=== PATIENT | female | born 1970 | race African-American/Black ===

== ENCOUNTER 2018-04-26 02:12 | Inpatient (IN) | payer OTHER ==
--- OUTSIDE RECORDS SUMMARY | 2018-04-26 02:15 | XMS REPORT | Clinical Summary ---
:1970 Author Organization [facility] Address [address] [place] [address] Care Team Providers Name Role Phone Monico Espinoza DO Primary Care Provider Allergies No Known Allergies Current Medications Prescription Sig. Disp. Refills Start Date End Date Status doxazosin (CARDURA) 4 MG TK 1 T PO QD 0 12/31/2016 Active tablet mycophenolate (CELLCEPT) 500 TK 3 TS PO BID 0 01/03/2017 Active mg tablet zolpidem (AMBIEN) 5 MG tablet TK 1 T PO QHS. 0 02/10/2017 Active hydroxychloroquine Take 500 mg by Active (PLAQUENIL) 200 mg tablet mouth 2 (two) times a day. metoprolol tartrate Take 100 mg by Active (LOPRESSOR) 100 mg tablet mouth 2 (two) times a day. clonIDINE HCl (CATAPRES) 0.3 Take 0.3 mg by Active MG tablet mouth 3 (three) times a day. hydrALAZINE (APRESOLINE) 50 Take 50 mg by Active MG tablet mouth 3 (three) times a day. amLODIPine (NORVASC) 10 mg Take 10 mg by Active tablet mouth daily. furosemide (LASIX) 40 mg Take 40 mg by Active tablet mouth 2 (two) times a day. GABAPENTIN ORAL Take 500 mg by Active mouth as needed. HYDROCODONE/ACETAMINOPHEN Take by mouth Active (NORCO ORAL) as needed. Active Problems Problem Noted Date Colostomy in place 02/23/2017 Encounters Date Type Specialty Care Team Description 01/31/2018 Orders Only General Surgery Nataly Bansal MA 11/15/2017 Hospital Encounter Radiology 06/23/2017 Telephone General Surgery Precious Sarabia MA 06/16/2017 Orders Only General Surgery Precious Sarabia, Colostomy status MA (Primary Dx) 06/14/2017 Procedure Pass Urology 06/13/2017 Documentation General Surgery Precious Sarabia, MALVIN 05/30/2017 Hospital Encounter Radiology [facility] Pre-op testing Esau Glasgow MD 05/30/2017 Pre-Admit Testing Pre-Admission [facility] Pre-op testing Appointment Testing Esau Glasgow MD (Primary Dx) after 04/25/2017 Social History Tobacco Use Types Packs/Day Years Used Date Never Smoker Alcohol Use Drinks/Week oz/Week Comments No Sex Assigned at Date Recorded Not on file Last Filed Vital Signs Vital Sign Reading Time Taken Blood Pressure 160/87 05/30/2017 11:24 AM CDT Pulse 68 05/30/2017 11:24 AM CDT Temperature 36 C (96.8 F) 05/30/2017 11:24 AM CDT Respiratory Rate 20 05/30/2017 11:24 AM CDT Oxygen Saturation 97% 05/30/2017 11:24 AM CDT Inhaled Oxygen Concentration - - Weight 75.3 kg (166 lb) 05/30/2017 11:24 AM CDT Height 157.5 cm (5' 2") 05/30/2017 11:24 AM CDT Body Mass Index 30.36 05/30/2017 11:24 AM CDT Plan of Treatment Health Maintenance Due Date Last Done Comments CERVICAL CANCER SCREENING 1991 INFLUENZA VACCINE 03/29/2018 Procedures Procedure Name Priority Date/Time Associated Comments Diagnosis XR CHEST 2 VW Routine 05/30/2017 12:23 Pre-op testing Results for this PM CDT procedure are in the results section. ECG PRE/POST OP Routine 05/30/2017 11:25 Pre-op testing Results for this AM CDT procedure are in the results section. FYA ANTIGEN PATIENT Routine 05/30/2017 11:12 Results for this TYPING AM CDT procedure are in the results section. DIRECT VENESSA' (RADHA) Routine 05/30/2017 11:12 Results for this AM CDT procedure are in the results section. ANTIBODY IDENTIFICATION Routine 05/30/2017 11:12 Results for this AM CDT procedure are in the results section. ESTIMATED GFR Routine 05/30/2017 11:12 Results for this AM CDT procedure are in the results section. HEMOGLOBIN A1C Routine 05/30/2017 11:12 Pre-op testing Results for this AM CDT procedure are in the results section. COMPREHENSIVE METABOLIC Routine 05/30/2017 11:12 Pre-op testing Results for this PANEL AM CDT procedure are in the results section. HC COMPLETE BLD COUNT Routine 05/30/2017 11:12 Pre-op testing Results for this W/AUTO DIFF AM CDT procedure are in the results section. TYPE AND SCREEN Routine 05/30/2017 11:12 Pre-op testing Results for this AM CDT procedure are in the results section. PROTHROMBIN TIME WITH Routine 05/30/2017 11:12 Pre-op testing Results for this INR AM CDT procedure are in the results section. PARTIAL THROMBOPLASTIN Routine 05/30/2017 11:12 Pre-op testing Results for this TIME (PTT) AM CDT procedure are in the results section. after 04/25/2017 Results XR Chest 2 Vw (05/30/2017 12:23 PM) Narrative Performed At XR CHEST 2 [facility] CLINICAL INDICATION:Z01.818 Encounter for other preprocedural examination, pre op testing COMPARISON:09/29/2014 IMPRESSION: The heart is mild to moderately enlarged similar to prior exam. Pulmonary vascularity is top normal. There is no consolidation or effusion. Bones are unremarkable for age. There is partial visualization of potential catheters or sutures overlying the anterior abdomen on the left. Thank you for allowing us to participate in the care of your patient. [facility]-[id number] Procedure Note Interface, Radiology Results Incoming - 05/30/2017 12:32 PM CDT XR CHEST 2 VW CLINICAL INDICATION: Z01.818 Encounter for other preprocedural examination, pre op testing COMPARISON: 09/29/2014 IMPRESSION: The heart is mild to moderately enlarged similar to prior exam. Pulmonary vascularity is top normal. There is no consolidation or effusion. Bones are unremarkable for age. There is partial visualization of potential catheters or sutures overlying the anterior abdomen on the left. Thank you for allowing us to participate in the care of your patient. [facility]-[id number] Performing Organization Address City/State/Zipcode Phone Number [facility] [address] [place] [address] ECG Pre/Post Op (05/30/2017 11:25 AM) Ventricular rate 67 [facility] Atrial rate 67 [facility] MO interval 204 [facility] QRSD interval 82 [facility] M[facility] QT interval 484 [facility] QTC interval 511 [facility] P axis 1 48 [facility] QRS axis 1 12 [facility] T wave axis 118 [facility] EKG impression Normal sinus rhythm-Voltage criteria for left ventricular hypertrophy-T wave abnormality, consider lateral ischemia--Abnormal ECG-In automated comparison with ECG of 29-SEP-2014 20:53,-Vent. rate has de [facility] MUSE creased BY42 BPM-T wave inversion more evident in Lateral leads-Electronically Signed By Johnnie Gibbs ([id number]) on 2016 5:59:18 PM Performing Organization Address City/[facility] Phone Number [facility] MUSE [address] [place] [address] FyA antigen patient typing (05/30/2017 11:12 AM) FyA Antigen Patient Typing NEG [facility] DEPARTMENT OF PATHOLOGY AND GENOMIC MEDICINE Performing Organization Address City/[facility] Phone Number [facility] DEPARTMENT OF PATHOLOGY AND [address] [place], [place] [id number] [facility] Direct Venessa' (RADHA) (05/30/2017 11:12 AM) IgG Venessa NEG [facility] DEPARTMENT OF PATHOLOGY AND GENOMIC MEDICINE Anti-complement NEG [facility] DEPARTMENT OF PATHOLOGY AND GENOMIC MEDICINE Performing Organization Address City/[facility] Phone Number [facility] DEPARTMENT OF PATHOLOGY AND [address] [place] [address] Estimated GFR (05/30/2017 11:12 AM) GFR Non Af Amer 20 (A) mL/min/1.73 m2 [facility] DEPARTMENT OF PATHOLOGY AND GENOMIC MEDICINE GFR Af Amer 24 (A) mL/min/1.73 m2 [facility] DEPARTMENT OF Comment: PATHOLOGY AND GENOMIC Chronic kidney disease: <60 mL/min/1.73m2 MEDICINE Kidney failure: <15 mL/min/1.73m2 The estimated GFR is calculated from the IDMS-traceable Modification of Diet in Renal Disease Equation. The accuracy of the calculation is poor when the creatinine is normal. Calculated values >90 mL/min/1.73m2 are not reported. This equation has not been validated in children (<18 years), women, the elderly (>70 years), or ethnic groups other than Caucasians and Americans. Specimen Plasma specimen Performing Organization Address City/[facility] Phone Number [facility] DEPARTMENT OF PATHOLOGY AND [address] [place] [address] Antibody identification (05/30/2017 11:12 AM) Antibody ID POS, Anti-FyA [facility] DEPARTMENT OF PATHOLOGY AND Comment: GENOMIC [facility] This antibody can cause red cell damage and is considered clinically significant.Red cells for transfusion will be negative for the Fya antigen [place] [id number]. Performing Organization Address [facility] Phone Number [facility] DEPARTMENT OF PATHOLOGY AND [address] [place] [address] Partial thromboplastin time, activated (05/30/2017 11:12 AM) PTT 36.8 (H) 23.0 - 36.0 sec [facility] DEPARTMENT OF PATHOLOGY Comment: AND [facility] PTT therapeutic range for unfractionated heparin is 61.0-112.0 seconds which corresponds to Anti-Xa 0.3-0.7 U/ml. Specimen Blood Performing Organization Address [facility] Cent[facility] Phone Number [facility] DEPARTMENT OF PATHOLOGY AND [address] [place] [address] Prothrombin time with INR (05/30/2017 11:12 AM) Prothrombin time 14.0 12.0 - 15.0 sec [facility] DEPARTMENT OF PATHOLOGY AND GENOMIC MEDICINE INR 1.1 [facility] DEPARTMENT OF Comment: PATHOLOGY AND GENOMIC The International Normalized Ratio (INR) is a therapeutic MEDICINE monitoring tool for patients who are stable on oral anticoagulant therapy. An INR of 2.0-3.0 is suggested for deep vein thrombosis/pulmonary embolism. Specimen Blood Performing Organization Address [facility] Phone Number [facility] DEPARTMENT OF PATHOLOGY AND [address] [place] [address] CBC with platelet and differential (05/30/2017 11:12 AM) WBC 3.42 (L) 4.50 - 11.00 k/uL [facility] DEPARTMENT OF PATHOLOGY AND GENOMIC MEDICINE RBC 4.04 (L) 4.20 - 5.50 m/uL [facility] DEPARTMENT OF PATHOLOGY AND GENOMIC MEDICINE HGB 10.5 (L) 12.0 - 16.0 g/dL [facility] DEPARTMENT OF PATHOLOGY AND GENOMIC MEDICINE HCT 34.9 (L) 37.0 - 47.0 % [facility] DEPARTMENT OF PATHOLOGY AND GENOMIC MEDICINE MCV 86.4 82.0 - 100.0 fL [facility] DEPARTMENT OF PATHOLOGY AND GENOMIC MEDICINE MCH 26.0 (L) 27.0 - 34.0 pg [facility] DEPARTMENT OF PATHOLOGY AND GENOMIC MEDICINE MCHC 30.1 (L) 31.0 - 37.0 g/dL [facility] DEPARTMENT OF PATHOLOGY AND GENOMIC MEDICINE RDW - SD 45.0 37.0 - 55.0 fL [facility] DEPARTMENT OF PATHOLOGY AND GENOMIC MEDICINE MPV 9.2 8.8 - 13.2 fL [facility] DEPARTMENT OF PATHOLOGY AND GENOMIC MEDICINE Platelet count 310 150 - 400 k/uL [facility] DEPARTMENT OF PATHOLOGY AND GENOMIC MEDICINE Nucleated RBC 0.00 /100 WBC [facility] DEPARTMENT OF PATHOLOGY AND GENOMIC MEDICINE Neutrophils 51.1 39.0 - 69.0 % [facility] DEPARTMENT OF PATHOLOGY AND GENOMIC MEDICINE Lymphocytes 26.6 25.0 - 45.0 % [facility] DEPARTMENT OF PATHOLOGY AND GENOMIC MEDICINE Monocytes 16.4 (H) 0.0 - 10.0 % [facility] DEPARTMENT OF PATHOLOGY AND GENOMIC MEDICINE Eosinophils 4.7 0.0 - 5.0 % [facility] DEPARTMENT OF PATHOLOGY AND GENOMIC MEDICINE Basophils 0.9 0.0 - 1.0 % [facility] DEPARTMENT OF PATHOLOGY AND GENOMIC MEDICINE Immature granulocytes 0.3Comment: 0.0 - 1.0 % [facility] DEPARTMENT OF "Immature PATHOLOGY AND GENOMIC granulocytes" MEDICINE (promyelocytes, myelocytes, metamyelocytes) Specimen Blood Performing Organization Address City/[facility]/Zipcode Phone Number [facility] DEPARTMENT OF PATHOLOGY AND [address] [place] [phone] GENOMIC MEDICINE Type and screen (05/30/2017 11:12 AM) ABO grouping O [facility] DEPARTMENT OF PATHOLOGY AND GENOMIC MEDICINE Rh type POS [facility] DEPARTMENT OF PATHOLOGY AND GENOMIC MEDICINE Antibody screen (gel) POS [facility] DEPARTMENT OF PATHOLOGY AND GENOMIC MEDICINE Specimen Blood Performing Organization Address City/[facility] Phone Number [facility] DEPARTMENT OF PATHOLOGY AND [address] [place] [id number] [place] [address] Hemoglobin A1c (05/30/2017 11:12 AM) Hemoglobin A1C 5.0 4.0 - 5.6 % [facility] DEPARTMENT OF PATHOLOGY Comment: AND GENOMIC MEDICINE HbA1c cutoffs for diagnosing diabetes: 4.0% - 5.6%=normal 5.7% - 6.4%=increased risk for diabetes (prediabetes) >=6.5%=diabetes Goals for glycemic control (ADA 2016) < 7.0%Target for non adults with diabetes. More or less stringent targets may be appropriate for individual patients. <7.5% Target for Children and adolescents with type 1 diabetes. Specimen Blood Performing Organization Address City/State/Zipcode Phone Number [facility] DEPARTMENT OF PATHOLOGY AND [address] [place] [address] GENOMIC MEDICINE Comprehensive metabolic panel (05/30/2017 11:12 AM) Sodium 141 135 - 148 mEq/L [facility] DEPARTMENT OF PATHOLOGY AND GENOMIC MEDICINE Potassium 4.7 3.5 - 5.0 mEq/L [facility] DEPARTMENT OF PATHOLOGY AND GENOMIC MEDICINE Chloride 96 (L) 98 - 112 mEq/L [facility] DEPARTMENT OF PATHOLOGY AND GENOMIC MEDICINE CO2 27 24 - 31 mEq/L [facility] DEPARTMENT OF PATHOLOGY AND GENOMIC MEDICINE Anion gap 18 (H) 7 - 15 mEq/L [facility] DEPARTMENT OF Comment: PATHOLOGY AND GENOMIC Starting from November , anion gap calculation MEDICINE no longer incorporates potassium. Please note the change. BUN 58 (H) 6 - 20 mg/dL [facility] DEPARTMENT OF PATHOLOGY AND GENOMIC MEDICINE Creatinine 2.6 (H) 0.5 - 0.9 mg/dL [facility] DEPARTMENT OF PATHOLOGY AND GENOMIC MEDICINE Glucose 107 (H) 65 - 99 mg/dL [facility] DEPARTMENT OF PATHOLOGY AND GENOMIC MEDICINE Calcium 9.3 8.3 - 10.2 mg/dL [facility] DEPARTMENT OF PATHOLOGY AND GENOMIC MEDICINE Protein 9.1 (H) 6.3 - 8.3 g/dL [facility] DEPARTMENT OF Comment: PATHOLOGY AND GENOMIC 4.6-7.0 g/dL MEDICINE 1 week 4.4-7.6 g/dL 7 months-1year5.1-7.3 g/dL 1-2 years5.6-7.5 g/dL >3 years6.0-8.0 g/dL 18-150 6.3-8.3 g/dL Albumin 4.0 3.5 - 5.0 g/dL [facility] DEPARTMENT OF PATHOLOGY AND GENOMIC MEDICINE A/G ratio 0.8 0.7 - 3.8 [facility] DEPARTMENT OF PATHOLOGY AND GENOMIC MEDICINE Alkaline phosphatase 145 (H) 35 - 104 U/L [facility] DEPARTMENT OF PATHOLOGY AND GENOMIC MEDICINE AST 23 10 - 35 U/L [facility] DEPARTMENT OF PATHOLOGY AND GENOMIC MEDICINE ALT 12 5 - 50 U/L [facility] DEPARTMENT OF PATHOLOGY AND GENOMIC MEDICINE Total bilirubin 0.3 0.0 - 1.2 mg/dL [facility] DEPARTMENT OF PATHOLOGY AND GENOMIC MEDICINE Specimen Plasma specimen Performing Organization Address City/State/Zipcode Phone Number [facility] DEPARTMENT OF PATHOLOGY AND [address] [place] [address] GENOMIC MEDICINE after 04/25/2017 Insurance Payer Benefit Plan / Group Subscriber ID Type Phone Address [facility] MEDICARE [facility] DUAL COMPLETE MCR xxxxxxxxx [facility] MEDICAID xxxxxxxxx Medicaid y [phone] [place] [address] [place] [id number]
[2018-04-26] MEDS ORDERED: HYDRALAZINE HCL 20 MG/ML VIAL ONE (03:05)
[2018-04-26] MEDS ORDERED: KETOROLAC 30 MG/ML INJ ONE (03:05)
[2018-04-26] MEDS ORDERED: ONDANSETRON 4 MG/2 ML VIAL ONE ×2 (03:06→05:14)
[2018-04-26 03:28] LABS: Absolute Lymphocytes (CBC) 1.1 K/uL (0.7-4.9); Absolute Monocytes 1.5 K/uL (0.1-1.3); Absolute Neutrophil 19.8 K/uL (1.8-8.0); Basophils % 0.1 % (0-1.3); Hematocrit 28.9 % (36.0-45.0); Lymphocytes % 4.8 % (15.3-44.8); MCV 79.2 fL (80-100); MPV 7.2 fL (7.6-11.3); Monocytes % 6.8 % (3.3-12.3); RBC Red Blood Cell Count 3.64 M/uL (3.86-4.86)
[2018-04-26 03:39] LABS: Albumin 3.3 g/dL (3.4-5.0); Bilirubin Total 0.6 mg/dL (0.2-1.0); Protein, Total 8.5 g/dL (6.4-8.2)
[2018-04-26 04:11] LABS: Blood Morphology Comment NOT SEEN (NOT SEEN); Platelet Estimate ADEQ
[2018-04-26] MEDS ORDERED: POTASSIUM CL SA 10 MEQ TAB PO ONE (04:30)
[2018-04-26 05:57] LABS: Urine Blood 1+ (NEG); Urine Glucose NEGATIVE (NEG); Urine Protein 2+ (NEG); Urine Specific Gravity >1.030 (1.005-1.030); Urine pH 5.5 (5.0-7.0)
--- NOTE | 2018-04-26 06:58 | ER ---
Nurse's Notes [facility] Name: Babs Younger Age: 47 yrs Sex: Female : 1970 Arrival Date: 04/26/2018 Time: 02:13 Bed 13 Private MD: Diagnosis: Fever of other and unknown origin Presentation: 04/26 02:19 Presenting complaint: Patient states: fever and joint pain with illness since Tuesday. ak1 pt unable to see PCP Alexis until Tuesday. pt c/o vomiting started tonight. pt stated she took tylenol, norco and clonidine at 0000. Transition of care: patient was not received from another setting of care. Onset of symptoms was April 26, 2018. Risk Assessment: Do you want to hurt yourself or someone else? Patient reports no desire to harm self or others. Initial Sepsis Screen: Does the patient meet any 2 criteria? No. Patient's initial sepsis screen is negative. Does the patient have a suspected source of infection? No. Patient's initial sepsis screen is negative. Care prior to arrival: None. 02:19 Method Of Arrival: EMS: [facility] ak1 02:19 Acuity: ELVA 3 ak1 Triage Assessment: 02:23 General: Appears in no apparent distress. Behavior is calm, cooperative. Pain: ak1 Complains of pain in joint pain. EENT: No signs and/or symptoms were reported regarding the EENT system. Neuro: No deficits noted. Cardiovascular: No deficits noted. Respiratory: No deficits noted. GI: Reports nausea, vomiting, started tonight. : No signs and/or symptoms were reported regarding the genitourinary system. Derm: Reports fever and illness since Tuesday. Musculoskeletal: Reports pain in joints. 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 LMP N/A - Hysterectomy ak1 Historical: - Allergies: 02:23 Morphine; ak1 - Home Meds: 02:23 CellCept 500 mg Oral tab 2 tabs 2 times per day [Active]; clonidine HCl 0.3 mg Oral tab ak1 1 tab three times a day [Active]; doxazosin 4 mg Oral tab 1 tab once daily [Active]; furosemide 80 mg Oral tab 1 tab 2 times per day [Active]; Plaquenil 200 mg Oral tab 1 tab once daily [Active]; Showell 10-325 mg Oral tab 1 tab QID PRN [Active]; metoprolol tartrate 100 mg Oral tab 1 tab 2 times per day [Active]; hydralazine 50 mg Oral tab 1 tab three times a day [Active]; Humulin 70/30 100 unit/mL (70-30) Sub-Q susp 60 units in am and 40 units at night [Active]; amlodipine 10 mg tab 1 tab once daily [Active]; gabapentin 400 mg Oral cap 1 cap as needed [Active]; Ambien 5 mg Oral tab 1 tab qhs prn [Active]; - PMHx: 02:23 Diabetes - IDDM; Hypertension; Lupus; Renal Disease; ak1 - PSHx: 02:23 Colostomy; Hysterectomy; ak1 - Immunization history:: Adult Immunizations unknown. - Social history:: Smoking status: unknown. - Ebola Screening: : No symptoms or risks identified at this time. Screenin:25 Abuse screen: Denies threats or abuse. Denies injuries from another. Nutritional ak1 screening: No deficits noted. Tuberculosis screening: No symptoms or risk factors identified. Fall Risk None identified. Assessment: 02:26 Reassessment: Patient appears in no apparent distress at this time. No changes from ak1 previously documented assessment. see triage assessment. 03:28 Reassessment: Patient appears in no apparent distress at this time. No changes from ak1 previously documented assessment. Patient and/or family updated on plan of care and expected duration. Pain level reassessed. Patient is alert, oriented x 3, equal unlabored respirations, skin warm/dry/pink. pt resting with eyes closed. resp even and unlabored. will continue to monitor. 04:32 Reassessment: pt ambulated to restroom with steady gait. . ak1 06:49 Reassessment: Patient appears in no apparent distress at this time. No changes from ak1 previously documented assessment. Patient and/or family updated on plan of care and expected duration. Pain level reassessed. Patient is alert, oriented x 3, equal unlabored respirations, skin warm/dry/pink. Dr. Bright at bedside. 07:00 Reassessment: report given to Chrystal Gaona RN and Manolo SMITH. ak1 07:10 Reassessment: Called and spoke with Dr Bright regarding getting transfer orders. He said sv that he would put them in. 07:15 General: Appears in no apparent distress. comfortable, Behavior is calm, cooperative, sv appropriate for age. Pain: Complains of pain in scalp Pain currently is 4 out of 10 on a pain scale. Is continuous. Neuro: Level of Consciousness is awake, alert, obeys commands, Oriented to person, place, time, situation, Moves all extremities. Full function Gait is steady, Speech is normal. Cardiovascular: Heart tones S1 S2 present Patient's skin is warm and dry. Pulses are palpable in right radial artery and left radial artery. Respiratory: Respiratory effort is even, unlabored, Respiratory pattern is regular, symmetrical, Breath sounds are clear bilaterally. GI: Abdomen is flat, Colostomy site is clean and dry. Ostomy appliance is intact. Bowel sounds present X 4 quads. : No signs and/or symptoms were reported regarding the genitourinary system. EENT: No signs and/or symptoms were reported regarding the EENT system. Derm: Skin is normal. Musculoskeletal: No signs and/or symptoms reported regarding the musculoskeletal system. 07:57 Reassessment: Unable to start charting in [facility] d/t no transfer orders. sv Vital Signs: 02:19 BP 172 / 91; Pulse 95; Resp 16; Temp 99.6(O); Pulse Ox 97% on R/A; Weight 81.65 kg (R); ak1 Height 5 ft. 2 in. (157.48 cm) (R); Pain 8/10; 02:46 BP 143 / 96; Pulse 92; Resp 16; ak1 03:26 BP 132 / 77; Pulse 83; Resp 16; Pulse Ox 96% on R/A; ak1 05:06 BP 137 / 77; Pulse 81; Resp 16; Temp 98.3(O); Pulse Ox 96% on R/A; Pain 4/10; ak1 06:50 BP 140 / 84; Pulse 82; Resp 16; Temp 97.8(O); Pulse Ox 99% on R/A; Pain 4/10; ak1 09:16 BP 164 / 85; Pulse 98; Resp 17; Pulse Ox 100% on R/A; dh3 02:19 Body Mass Index 32.92 (81.65 kg, 157.48 cm) ak1 ED Course: 02:13 Patient arrived in ED. ak1 02:21 Triage completed. ak1 02:24 Emery Saenz MD is Attending Physician. tw4 02:25 Patient has correct armband on for positive identification. Bed in low position. Call ak1 light in reach. Side rails up X 1. Pulse ox on. NIBP on. 02:26 Arm band placed on Patient placed in an exam room, on a stretcher, on pulse oximetry, ak1 Patient notified of wait time. 02:45 Adrianna Seymour, RN is Primary Nurse. ak1 02:45 No provider procedures requiring assistance completed. Missed attempt(s): 24 gauge in ak1 right hand. 02:45 Initial lab(s) drawn, by me, sent to lab. ak1 02:50 Inserted saline lock: 20 gauge in right antecubital area, using aseptic technique. bb Blood collected. 05:56 X-ray completed. Portable x-ray completed in exam room. Patient tolerated procedure kw well. 05:57 Chest Single View XRAY In Process Unspecified. EDMS 06:57 Maurice Bright MD is Hospitalizing Provider. tw4 08:00 Patient admitted, IV remains in place. intact. sv Administered Medications: 03:07 Drug: TORadol 30 mg Route: IVP; Site: right antecubital; ak1 04:21 Follow up: Response: No adverse reaction ak1 03:07 Drug: Zofran 4 mg Route: IVP; Site: right antecubital; ak1 04:21 Follow up: Response: No adverse reaction ak1 03:07 Drug: hydrALAZINE 10 mg Route: IV; Rate: bolus; Site: right antecubital; ak1 04:32 Drug: Potassium Chloride 40 mEq Route: PO; ak1 04:32 Follow up: Response: No adverse reaction ak1 05:12 Drug: Zofran 4 mg Route: IVP; Site: right antecubital; ak1 06:51 Follow up: Response: No adverse reaction; Nausea is decreased ak1 Point of Care Testing: Blood Glucose: 08:00 Blood Glucose: 94 mg/dL; sv Ranges: Outcome: 06:57 Decision to Hospitalize by Provider. tw4 13:33 Patient left the ED. ph Signatures: Dispatcher [employer]DA[employer] Chrystal Teague RN RN sv Darcy Gallego RN RN bb Pita Nicholson Adrianna Seymour RN RN ak1 Scarlett Ferrari RN RN ph Kortney Ray dh3 Emery Saenz MD MD tw4
--- NOTE | 2018-04-26 06:58 | EDPHYS ---
Physician Documentation [facility] Name: Babs Younger Age: 47 yrs Sex: Female : 1970 Arrival Date: 04/26/2018 Time: 02:13 Bed 13 Private MD: ED Physician Emery Saenz HPI: 04/26 02:25 This 47 yrs old Black Female presents to ER via EMS with complaints of joint pain. tw4 02:25 pt states that she has had nausea, joint pain for 2 days. Onset: The symptoms/episode tw4 began/occurred 2 day(s) ago. Severity of symptoms: At their worst the symptoms were moderate in the emergency department the symptoms are unchanged. The patient has not experienced similar symptoms in the past. 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 WRAPPER: 02:19 LMP N/A - Hysterectomy ak1 Historical: - Allergies: : Morphine; ak1 - Home Meds: 02:23 CellCept 500 mg Oral tab 2 tabs 2 times per day [Active]; clonidine HCl 0.3 mg Oral tab ak1 1 tab three times a day [Active]; doxazosin 4 mg Oral tab 1 tab once daily [Active]; furosemide 80 mg Oral tab 1 tab 2 times per day [Active]; Plaquenil 200 mg Oral tab 1 tab once daily [Active]; Manor 10-325 mg Oral tab 1 tab QID PRN [Active]; metoprolol tartrate 100 mg Oral tab 1 tab 2 times per day [Active]; hydralazine 50 mg Oral tab 1 tab three times a day [Active]; Humulin 70/30 100 unit/mL (70-30) Sub-Q susp 60 units in am and 40 units at night [Active]; amlodipine 10 mg tab 1 tab once daily [Active]; gabapentin 400 mg Oral cap 1 cap as needed [Active]; Ambien 5 mg Oral tab 1 tab qhs prn [Active]; - PMHx: 02:23 Diabetes - IDDM; Hypertension; Lupus; Renal Disease; ak1 - PSHx: 02:23 Colostomy; Hysterectomy; ak1 - Immunization history:: Adult Immunizations unknown. - Social history:: Smoking status: unknown. - Ebola Screening: : No symptoms or risks identified at this time. ROS: 02:25 Constitutional: Negative for fever, chills, and weight loss, Cardiovascular: Negative tw4 for chest pain, palpitations, and edema, Respiratory: Negative for shortness of breath, cough, wheezing, and pleuritic chest pain, Abdomen/GI: Negative for abdominal pain, nausea, vomiting, diarrhea, and constipation, Back: Negative for injury and pain, MS/Extremity: Negative for injury and deformity, Skin: Negative for injury, rash, and discoloration, Neuro: Negative for headache, weakness, numbness, tingling, and seizure. Exam: 02:25 Constitutional: This is a well developed, well nourished patient who is awake, alert, tw4 and in no acute distress. Head/Face: Normocephalic, atraumatic. Chest/axilla: Normal chest wall appearance and motion. Nontender with no deformity. No lesions are appreciated. Cardiovascular: Regular rate and rhythm with a normal S1 and S2. No gallops, murmurs, or rubs. Normal PMI, no JVD. No pulse deficits. Respiratory: Lungs have equal breath sounds bilaterally, clear to auscultation and percussion. No rales, rhonchi or wheezes noted. No increased work of breathing, no retractions or nasal flaring. Back: No spinal tenderness. No costovertebral tenderness. Full range of motion. MS/ Extremity: Pulses equal, no cyanosis. Neurovascular intact. Full, normal range of motion. Neuro: Awake and alert, GCS 15, oriented to person, place, time, and situation. Cranial nerves II-XII grossly intact. Motor strength 5/5 in all extremities. Sensory grossly intact. Cerebellar exam normal. Normal gait. 02:25 Abdomen/GI: Inspection: abdomen appears normal, scar(s), are noted in the right lower quadrant, colostomy present stool and air in bag, Bowel sounds: normal. Vital Signs: 02:19 BP 172 / 91; Pulse 95; Resp 16; Temp 99.6(O); Pulse Ox 97% on R/A; Weight 81.65 kg (R); ak1 Height 5 ft. 2 in. (157.48 cm) (R); Pain 8/10; 02:46 BP 143 / 96; Pulse 92; Resp 16; ak1 03:26 BP 132 / 77; Pulse 83; Resp 16; Pulse Ox 96% on R/A; ak1 05:06 BP 137 / 77; Pulse 81; Resp 16; Temp 98.3(O); Pulse Ox 96% on R/A; Pain 4/10; ak1 06:50 BP 140 / 84; Pulse 82; Resp 16; Temp 97.8(O); Pulse Ox 99% on R/A; Pain 4/10; ak1 09:16 BP 164 / 85; Pulse 98; Resp 17; Pulse Ox 100% on R/A; dh3 02:19 Body Mass Index 32.92 (81.65 kg, 157.48 cm) ak1 MDM: 02:24 Patient medically screened. tw4 04/27 01:11 Differential Diagnosis altered mental status, sepsis. Data reviewed: vital signs, tw4 nurses notes. Test interpretation: by ED physician or midlevel provider: plain radiologic studies. Counseling: I had a detailed discussion with the patient and/or guardian regarding: the historical points, exam findings, and any diagnostic results supporting the discharge/admit diagnosis. Physician consultation: Maurice Bright MD regarding admission, and will see patient in ED. 04/26 02:28 Order name: CBC with Diff; Complete Time: 04:12 [facility] 04/26 04:11 Interpretation: Normal except: RBC 3.64; HGB 9.5; HCT 28.9; MCV 79.2; MCH 26.0; LYM% tw4 4.8; RICHA% 88.3; MPV 7.2; NEUT A 19.8; MNA 1.5. 04/26 02:28 Order name: CMP; Complete Time: 04:10 4 04/26 04:12 Interpretation: K 3.0; BUN 48; CRE 2.80; GFR 22; ALK 125; TP 8.5; ALB 3.3. [facility] 04/26 03:35 Order name: Manual Differential; Complete Time: 05:07 [facility] 04/26 04:11 Order name: Urinalysis [facility] 04/26 04:57 Order name: Urine Dipstick--Ancillary (enter results) ms 04/26 05:09 Order name: Lactate [facility] 04/26 05:09 Order name: Blood Culture Adult (2) [facility] 04/26 08:02 Order name: Glucose, Ancillary Testing [facility] 04/26 08:47 Order name: Comprehensive Metabolic Panel [facility] 04/26 08:47 Order name: Comprehensive Metabolic Panel [facility] 04/26 08:47 Order name: Lactate EDMS 04/26 08:47 Order name: Lactate EDMS 04/26 08:47 Order name: Magnesium EDMS 04/26 08:48 Order name: Urinalysis EDMS 04/26 02:28 Order name: Saline Lock; Complete Time: 02:59 tw4 04/26 04:11 Order name: Urine Dipstick-Ancillary (obtain specimen); Complete Time: 04:57 tw4 04/26 05:34 Order name: Chest Single View XRAY tw4 04/26 08:48 Order name: CONS Pharmacy Consult EDMS 04/26 08:48 Order name: CONS Physician Consult EDMS 04/26 08:48 Order name: Heart Healthy EDMS 04/26 08:48 Order name: CBC with Automated Diff EDMS 04/26 08:48 Order name: CBC with Automated Diff EDMS 04/26 08:48 Order name: Magnesium EDMS 04/26 08:48 Order name: Phosphorus EDMS 04/26 08:48 Order name: Phosphorus EDMS Administered Medications: 04/26 03:07 Drug: TORadol 30 mg Route: IVP; Site: right antecubital; ak1 04:21 Follow up: Response: No adverse reaction ak1 03:07 Drug: Zofran 4 mg Route: IVP; Site: right antecubital; ak1 04:21 Follow up: Response: No adverse reaction ak1 03:07 Drug: hydrALAZINE 10 mg Route: IV; Rate: bolus; Site: right antecubital; ak1 04:32 Drug: Potassium Chloride 40 mEq Route: PO; ak1 04:32 Follow up: Response: No adverse reaction ak1 05:12 Drug: Zofran 4 mg Route: IVP; Site: right antecubital; ak1 06:51 Follow up: Response: No adverse reaction; Nausea is decreased ak1 Point of Care Testing: Blood Glucose: 08:00 Blood Glucose: 94 mg/dL; sv Ranges: Critical Glucose Levels:Adult <50 mg/dl or >400 mg/dl <40 mg/dl or >180 mg/dl Disposition: 04/26/18 06:57 Hospitalization ordered by Maurice Bright for Observation. Preliminary diagnosis is Fever of other and unknown origin. - Bed requested for Telemetry/MedSurg (observation). - Status is Observation. ph - Condition is Fair. - Problem is new. - Symptoms are unchanged. UTI on Admission? No Signatures: Dispatcher [employer] EDTerri Rayo RN RN Adrianna Jordan, RN RN Scarlett Manley RN RN Emery Medina MD MD tw4 Corrections: (The following items were deleted from the chart) 07:16 06:57 Hospitalization Ordered by Maurice Bright MD for Observation. Preliminary kl diagnosis is Fever of other and unknown origin. Bed requested for Telemetry/MedSurg (observation). Status is Observation. Condition is Fair. Problem is new. Symptoms are unchanged. UTI on Admission? No. tw4 12:40 07:16 04/26/2018 06:57 Hospitalization Ordered by Maurice Bright MD for Observation. kl Preliminary diagnosis is Fever of other and unknown origin. Bed requested for [facility] ER HOLD. Status is Observation. Condition is Fair. Problem is new. Symptoms are unchanged. UTI on Admission? No. kl 13:33 12:40 04/26/2018 06:57 Hospitalization Ordered by Maurice Bright MD for Observation. ph Preliminary diagnosis is Fever of other and unknown origin. Bed requested for Telemetry/MedSurg (observation). Status is Observation. Condition is Fair. Problem is new. Symptoms are unchanged. UTI on Admission? No. kl
--- NOTE | 2018-04-26 07:59 | RAD REPORT ---
EXAM DESCRIPTION: Fredo Single View04/26/2018 5:58 am CLINICAL HISTORY: Fever COMPARISON: October 2017 FINDINGS: Left lower lobe opacity is suspected. The right lung is clear. The heart is borderline en larged IMPRESSION: Probable left lower lobe pneumonia.
[2018-04-26] MEDS ORDERED: ALBUTEROL 2.5 MG/3 ML NEB SOL NEB PRN (08:42)
[2018-04-26] MEDS ORDERED: GABAPENTIN 400 MG CAP PO PRN (08:47)
[2018-04-26] MEDS: MYCOPHENOLATE MOFETIL 1000 MG PO SCH ×2 (09:00→21:00)
[2018-04-26] MEDS: VANCOMYCIN 1.25 GM in NA CHLORIDE 0.9% 250 ML IVPB SCH (09:00)
[2018-04-26] MEDS: HYDRALAZINE HCL 25 MG TABLET PO SCH ×3 (09:00→21:00)
[2018-04-26] MEDS ORDERED: CEFEPIME 1 GM/VIAL IV SCH (09:00)
[2018-04-26] MEDS ORDERED: cloNIDine HCl 0.1 MG TAB ONE (09:20)
[2018-04-26] MEDS ORDERED: METOPROLOL TAR 50 MG TAB ONE (09:20)
[2018-04-26] MEDS ORDERED: HEPARIN 5000 UNIT/ML 1 ML VIAL ONE (09:20)
[2018-04-26] MEDS ORDERED: FUROSEMIDE 40 MG TABLET ONE (09:21)
[2018-04-26] MEDS ORDERED: HYDROCODONE/APAP 10/325 TAB ONE (09:21)
[2018-04-26] MEDS ORDERED: AMLODIPINE 5 MG TAB ONE (09:21)
[2018-04-26] MEDS ORDERED: NA CHLORIDE 0.9% 1,000 ML ONE (09:21)
[2018-04-26] MEDS ORDERED: HYDRALAZINE HCL 10 MG TABLET ONE (09:21)
[2018-04-26] MEDS ORDERED: CEFEPIME 1 GM/100 ML BAG IV ONE (09:22)
[2018-04-26] MEDS: DOXAZOSIN 4 MG TAB PO SCH (09:30)
[2018-04-26] MEDS: HYDROCODONE/APAP 10/325 TAB PO PRN ×3 (09:30→22:03)
[2018-04-26] MEDS: CLONIDINE HCL 0.3 MG TAB PO SCH ×3 (09:30→21:00)
[2018-04-26] MEDS: HYDROXYCHLOROQUINE 200MG TAB PO SCH (09:30)
[2018-04-26] MEDS: FUROSEMIDE 40 MG TABLET PO SCH ×2 (09:30→16:39)
[2018-04-26] MEDS: AMLODIPINE 10 MG TAB PO SCH (09:30)
[2018-04-26] MEDS: HEPARIN 5000 UNIT/ML 1 ML VIAL SQ SCH (09:30)
[2018-04-26] MEDS: METOPROLOL TAR 50 MG TAB PO SCH ×2 (09:30→21:00)
--- NOTE | 2018-04-26 09:48 | P.HP ---
Certification for Inpatient Patient admitted to: Inpatient With expected LOS: >2 Midnights Patient will require the following post-hospital care: None Practitioner: I am a practitioner with admitting privileges, knowledge of patient current condition, hospital course, and medical plan of care. Services: Services provided to patient in accordance with Admission requirements found in Title 42 Section 412.3 of the Code of Federal Regulations Patient History Date of Service: 04/26/18 Reason for admission: Fever, shakes and chills History of Present Illness: Patient is a 47-year-old female who has a history of lupus who has had multiple secondary complications. Patient presents to the hospital with fever shakes and chills. She apparently has been gradually worsening over the last few weeks. She came into the emergency room for evaluation. In the emergency room patient had extensive workup done and was found have a leukocytosis along with a bandemia. Patient is on immunosuppressants including CellCept and Imuran. Patient has not been feeling like herself lately. Her workup revealed a questionable left lower lobe pneumonia. Will admit her to the hospital and treat her with IV antibiotics. Will watch her for any secondary complications. She may need a peripheral blood smear review if her leukocytosis worsens. At this time she will be admitted to the hospital for further evaluation. 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 She follows up with a associate professor of psychology and Flowers at the [facility]. Allergies morphine Allergy (Severe, Verified 09/07/17 09:12) Unknown Home Medications: Furosemide 80 mg PO BID 07/09/15 Hydralazine HCl 50 mg PO TID 07/09/15 Metoprolol Tartrate 100 mg PO BID 07/09/15 cloNIDine HCl [Clonidine HCl] 0.3 mg PO TID 07/09/15 Amlodipine [Norvasc*] 10 mg PO DAILY 08/08/15 Doxazosin [Cardura*] 4 mg PO DAILY 09/07/17 Gabapentin 400 mg PO TIDP PRN 09/07/17 Hydrocodone Bit/Acetaminophen [Bascom 10-325 Tablet] 1 tab PO QIDP PRN 09/07/17 Hydroxychloroquine [Plaquenil*] 200 mg PO DAILY 09/07/17 Insulin NPH Hum/Reg Insulin Hm [Humulin 70/30 Kwikpen] 0 unit SQ BID PRN Mycophenolate Mofetil [Cellcept] 1,000 mg PO BID 09/07/17 Zolpidem Tartrate [Ambien] 5 mg PO BEDTIME PRN PRN 09/07/17 Amox/Clavulanate [Augmentin 500-125 mg Tab*] 500 mg PO BID #14 tab 11/03/17 Benzonatate [Tessalon Perle*] 200 mg PO TID PRN #20 cap 11/03/17 Fluticasone [Flonase 50MCG Nasal [place]*] 1 sprays RAY BID #1 btl 11/03/17 - Past Medical/Surgical History Diabetic: Yes -: Lupus, Rheumatology-Dr. Sandoval -: HTN -: Seizure disorder -: History of Small bowel obstruction -: Colostomy in place -: ID -: Avasular necrosis -: pyelonephritis -: suicidal ideations -: depression -: -: Hysterectomy -: Bowel resection -: Colostomy -: trach (reversed) Psychosocial/ Personal History: single, one child. - Family History Sister Notes: lupus Father Medical History: Kidney disease Notes: Mother Medical History: Hypertension, Cancer Notes: , uterine Brother Medical History: Hypertension, Diabetes - Social History Alcohol use: No CD- Drugs: No Caffeine use: Yes Review of Systems 10-point ROS is otherwise unremarkable Physical Examination - Vital Signs Temperature: 98.9 F Blood Pressure: 120/85 Pulse: 85 Respirations: 18 Pulse Ox (%): 95 - Physical Exam General: Alert, In no apparent distress, Oriented x3 HEENT: Atraumatic, Normocephalic, PERRLA, Mucous membr. moist/pink Neck: Supple, 2+ carotid pulse no bruit Respiratory: Clear to auscultation bilaterally, Normal air movement Cardiovascular: Normal pulses, Regular rate/rhythm, Normal S1 S2, Systolic murmur Gastrointestinal: Normal bowel sounds, Soft and benign, Non-distended, Other ( colostomy and abdominal wall hernia), Tenderness Musculoskeletal: No clubbing, Swelling, Tenderness Integumentary: No rashes, No breakdown, No significant lesion Neurological: Normal speech, Normal tone, Sensation intact, Cranial nerves 3-12 intact, Abnormal gait, Abnormal strength Lymphatics: No axilla or inguinal lymphadenopathy - Studies Laboratory Data (last 24 hrs) 04/26/18 02:50: Sodium 139, Potassium 3.0 L, BUN 48 H, Creatinine 2.80 H, Glucose 102, Total Bilirubin 0.6, AST 15, ALT 14, Alkaline Phosphatase 125 H 04/26/18 02:50: WBC 22.4 H* D, Hgb 9.5 L, Hct 28.9 L D, Plt Count 303 Assessment & Plan - Problems (Diagnosis) (1) DAE (acute kidney injury) Onset Date: 02/02/17 Current Visit: No Status: Acute (2) Altered mental status Onset Date: 02/02/17 Current Visit: No Status: Acute (3) Cardiomegaly Onset Date: 07/12/16 Current Visit: No Status: Acute (4) Chest pain Onset Date: 02/18/15 Current Visit: No Status: Acute (5) Hypertensive urgency Onset Date: 11/26/14 Current Visit: No Status: Acute (6) AVN (avascular necrosis of bone) Current Visit: No Status: Chronic (7) Abnormal renal function Onset Date: 07/02/14 Current Visit: No Status: Chronic (8) Chronic kidney disease, stage 3 Onset Date: 10/31/17 Current Visit: No Status: Chronic (9) Chronic pain Current Visit: No Status: Chronic Qualifiers: Chronic pain type: chronic pain syndrome Qualified Code(s): G89.4 - Chronic pain syndrome (10) Diabetes mellitus Onset Date: 10/31/17 Current Visit: No Status: Chronic Qualifiers: Diabetes mellitus type: type 2 Diabetes mellitus halfway insulin use: with hospital coordinator use Diabetes mellitus complication status: with other specified complication Qualified Code(s): E11.69 - Type 2 diabetes mellitus with other specified complication; Z79.4 - syrup mixer (current) use of insulin; Z79.4 - prison (current) use of insulin; Z79.4 - prison (current) use of insulin; Z79.4 - syrup mixer (current) use of insulin (11) Lupus nephritis, ISN/RPS class III Onset Date: 10/31/17 Current Visit: No Status: Chronic (12) Seizure disorder Onset Date: 10/31/17 Current Visit: No Status: Chronic (13) Left lower lobe pneumonia Current Visit: Yes Status: Acute (14) H/O colostomy Current Visit: Yes Status: Acute (15) Constipation Current Visit: Yes Status: Acute - Plan Plan: 1. Continue with IV antibiotics 2. Awaiting sputum and blood culture 3. Repeat chest x-ray 4. Will proceed with CT scan of the chest if pneumonia is not improved 5. May need echocardiogram 6. Continue with nebs as needed 7. O2 per protocol 8. Continue with gentle hydration; monitor renal function 9. Repeat labs including CBC and renal function in a.m. 10. Colostomy care 11. Laxative 12. GI and DVT prophylaxis Discharge Plan: Home Plan to discharge in: Greater than 2 days - Advance Directives Does patient have a Living Will: No Does patient have a Durable POA for Healthcare: No - Code Status/Comfort Care Code Status Assessed: Yes Code Status: Full Code Critical Care: No Time Spent Managing PTS Care (In Minutes): 50
[2018-04-26] MEDS ORDERED: HYDROMORPHONE HCL 1 MG/ML INJ ONE (10:13)
[2018-04-26] MEDS: CEFEPIME/SWI 1gm 1 GM/10 ML SYR IV SCH (10:20)
[2018-04-26] MEDS: HYDROMORPHONE HCL 1 MG/ML INJ IV PRN ×3 (10:21→23:23)
[2018-04-26] MEDS: NA CHLORIDE 0.9% 1,000 ML IV SCH ×3 (10:21→22:20)
[2018-04-26 11:36] VITALS: BMI 32.6
[2018-04-26] MEDS: ACETAMINOPHEN 500 MG TAB PO PRN ×2 (12:14→16:40)
[2018-04-26] MEDS ORDERED: ACETAMINOPHEN 500 MG TAB ONE (12:17)
[2018-04-26] MEDS ORDERED: SIMETHICONE 80 MG TAB PO PRN (14:25)
--- NOTE | 2018-04-26 15:47 | P.PN ---
Date of Service: 04/26/18 Patient seen and examined chart reviewed and case discussed with RN. Patient still complaining of some abdominal discomfort Physical exam vital signs stable afebrile General awake alert oriented x3 some mild distress obese female CV S1-S2 no murmurs Respiratory Clear to auscultation bilaterally no wheezing Gastrointestinal abdomen soft nontender nondistended positive bowel sounds. Colostomy in place. Extremities no clubbing cyanosis or edema Neuro nonfocal Labs reviewed Assessment and plan 1. 47-year-old female with fever of unclear etiology continue broad-spectrum antibiotics and follow up on cultures. 2. Acute on chronic kidney injury. Continue IV fluids. Consult nephrology
--- NOTE | 2018-04-26 16:03 | RAD REPORT ---
EXAM DESCRIPTION: RAD - Abdomen Acute Series - 04/26/2018 3:29 pm CLINICAL HISTORY: r/o bowel obstruction<Reason For Exam>r/o bowel obstruction Abdominal pain, lower chest pain COMPARISON: Chest Single View dated 04/26/2018; Chest Single View dated 11/01/2017; Chest Single View d ated 10/31/2017; Chest Single View dated 10/30/2017<Comparisons> FINDINGS: Low lung volumes noted. Interstitial and alveolar opacification in the left lower lung fie ld is present. This is progressive from the April 26 exam earlier in the day. This is probably atele ctasis but correlation or monitoring for left base pneumonia suggested. Heart size and pulmonary vasc ulature are normal. No pleural effusion, pneumothorax or other acute cardiopulmonary process seen. Large stool volume seen in the right-side of the colon. Multiple distended or mildly dilated small darian wel loops are present. No free air or pneumatosis. No suspicious calcifications. No other suspicious for significant findings. IMPRESSION: Prominent ileus versus early small bowel obstruction. There are multiple distended to mi ldly dilated small bowel loops in the left abdomen. Large stool volume in the right side colon. Atelectasis versus early pneumonia in the left lung base.
[2018-04-26] MEDS ORDERED: GLUCAGON 1 MG/VIAL IM PRN ×2 (16:11→18:05)
[2018-04-26] MEDS ORDERED: D50W 25 GM/50 ML SYRINGE IV PRN ×2 (16:11→18:05)
[2018-04-26] MEDS ORDERED: INSULIN -REGULAR HUMAN 50 UNIT/0.5 ML ML SQ SCH (16:30)
[2018-04-26] MEDS ORDERED: POLYETHYL GLY 3350 17 GM/DOSE PO ONE (18:00)
[2018-04-26 19:37] LABS: Urine Appearance CLOUDY; Urine Blood TRACE (NEG); Urine Color YELLOW; Urine Glucose NEGATIVE (NEG); Urine Protein 2+ (NEG); Urine Urobilinogen 0.2 mg/dL (0.2-1.0)
[2018-04-26 20:34] LABS: Urine Bilirubin NEGATIVE (NEG)
--- NOTE | 2018-04-26 20:37 | RAD REPORT ---
EXAM DESCRIPTION: CT - Abdomen Pelvis Wo Contrast - 04/26/2018 8:22 pm CLINICAL HISTORY: abdominal pain, ileus, colostomy<Reason For Exam>abdominal pain, ileus, colostomy COMPARISON: Abdomen Pelvis Wo Contrast dated 02/01/2017; Abdomen Pelvis Wo Contrast dated 07/16/20 16; Abdomen Pelvis Wo Contrast dated 12/09/2015; Abdomen Pelvis Wo Contrast dated 12/08/2015<Compar isons> TECHNIQUE: Axial [address] imaging of the abdomen and pelvis was performed without IV contrast. No IV contrast was given because of allergy, abnormal renal function, patient refusal or physician re quest. Oral contrast was given. All CT scans are performed using dose optimization technique as appropriate and may include automated exposure control or mA/KV adjustment according to patient size. FINDINGS: Patchy posterior right lung base opacification is favored to be atelectasis. Opacification in the left lung base is more consolidated with air bronchogram formation seen. Cardiomegaly is pres ent with minimal pericardial effusion. The liver, spleen and pancreas show no suspicious findings on non-contrast imaging. Gallbladder and b iliary tree are also without suspicious finding. Gallstones can be occult on CT imaging. No hydronephrosis or suspicious renal mass. No significant adrenal finding. Isodense renal masses an d pyelonephritis cannot be excluded in the absence of IV contrast. The urinary bladder is without sig nificant finding. No gastric dilatation or gastric wall thickening. No dilated small bowel loops. Verónica's pouch show s no suspicious finding. Cecum is low lying along the floor the pelvis. A large amount of stool is pr esent along with contrast distending the tortuous and redundant colon which is positioned in the righ t lateral and right anterior abdomen. Right mid abdomen colostomy site is present. No stricture or ma ss identified. The stool distended colon tapers to a normal diameter near the ostomy site. No free ai r, free fluid or inflammatory stranding. No mass or bulky lymphadenopathy. Large anterior abdominal w all hernia or abdominal wall laxity noted similar to comparison. No suspicious bony findings. IMPRESSION: Consolidated left lung base pneumonia. Posterior right base findings could be pneumonia or atelectasis. Constipation pattern with a large amount of stool distending the colon from cecum to just proximal to the right mid abdomen colostomy site. There is a smooth transition at the distal margin of the colon with no focal stricture or mass identified. No free air or surgically emergent finding. Abdominal wall hernia/laxity pattern is unchanged from comparison. Full assessment is limited is the absence of IV contrast.
--- NOTE | 2018-04-26 22:34 | CON ---
Date of Consultation: 04/26/2018 Brief History Of Present Illness: The patient is a 47-year-old female with a longst anding history of lupus, who has had multiple problems before in the past. She has been maintained o n CellCept, Imuran, and Plaquenil. She is followed up with physician/fence laborer at [facility]. She states that she was in her normal state of health up until approximately yesterday when s he developed nausea, headache, fever, chills, and just general malaise. She did not have any abdomin al pain at that time. She states that she is chronically on MiraLax to help with bowel movements and only gets output from her ostomy about every 3 days. She has a right-sided colostomy which was plac ed. The conditions of her abdominal surgeries are unclear. She states that her surgical history inc ludes multiple abdominal surgeries initially for cyst of her ovaries, which there were approximately 3-4 surgeries for that. Then, she had a hysterectomy transabdominal, then she developed which she be lieves to be a bowel obstruction. She was discharged from [facility] and was found down at home by somebody on that occasion, unrelated to this particular admission. She was brought to [facility] at that time, at which point she states she had multiple abdominal surgeries, she is uncertain what kind, but she had a colostomy on the left. She states that she believes she had approximately 3-4 operations following that and ultimately ended up with a right-sided colostomy and was told she w as not an operative candidate to restore intestinal continuity after that occasion. She was in the [facility] on ventilator dependent at that time and is very ill by her report, although again she is unclear of the specifics of that particular operation. She was attended by Dr. Juventino Mata, the surgeon, at [facility]. Past Medical History: Significant for lupus, bowel obstruction, hypertension, seizure disorder, [place], avascular necrosis, pyelonephritis, suicidal ideation, depression. Past Surgical History: Tracheostomy status post removal, colostomy, bowel resection, hysterectomy, C -section, multiple abdominal surgeries including 3 ovarian cyst excisions as well as the abdominal op erations described above. In addition, she states she believes she has mesh in her abdomen. Allergies: TO MORPHINE. Home Medications: Lasix, hydralazine, metoprolol, clonidine, Norvasc, Cardura, gabapentin, [place], Pl aquenil, insulin, CellCept, Ambien, Augmentin, benzonatate, fluticasone, and Imuran. Social History: She is single and has 1 child. Family History: Significant for a sister who also has a lupus. Her father had kidney disease. Her mother had hypertension and cancer. Social History: She denies alcohol or recreational drug use. Review of Systems: A 10-point review of systems other than HPI denies. Physical Examination: Vital Signs: At the time of my examination, her BMI is 32.7, blood pressure 154/79, respiratory rate 18, pulse is 101, temperature 96.9. General: She is awake, alert, and oriented. Psychiatric: She is appropriate and conversive. HEENT: She is normocephalic. Her oropharynx is clear. Her mucous membranes are moist. Chest: Normal to expansion and excursion. Abdomen: Soft with a large complex likely ventral hernia versus loss of domain of abdominal continui ty. She has a well-healed scar in the midline position. She has a left lower quadrant well-healed c olostomy scar. She has a right-sided colostomy in place with minimal output. It is pink and viable however. She has mild tenderness globally. There is no focal peritonitis. I am able to deeply palp ate without significant pain. She sits up. She moves around easily in bed without any assistance an d without any pain, and when she is sitting up, she is essentially pain-free by her description. Her nausea has improved as well since admission. Extremities: No clubbing, cyanosis, or edema. Skin: Her skin is dry, ashen, and she has well-healed scars and multiple wounds on the bilateral ext remities and back in various stages of healing. For the most part, they are well healed at this time . Laboratory Data: Reveals a white blood cell count of 22.4, hemoglobin is 9.5, hematocrit of 28.9, pl atelet count is 303, neutrophils are 88%. Her sodium is 139, potassium 4.4, chloride 106, carbon gurvinder xide 21, BUN 48, creatinine is 2.8, her glucose is 102, total bilirubin 0.6, AST 15, ALT 14, alkaline phosphatase is 125. Her UA showed 1+ blood and 2+ total protein. She had an abdominal series and c hest x-ray. The chest x-ray was officially read as probable left lower lobe pneumonia. The acute ab dominal series was officially read as prominent ileus versus early small bowel obstruction. There ar e multiple distended to mildly dilated small bowel loops in the left abdomen, large stool volume in t he right side of the colon, atelectasis versus early pneumonia left lung base. Assessment And Plan: This is a 47-year-old female, who comes in with a history of lupus, multiple ab dominal surgeries, and a right-sided colostomy, who presents with some abdominal pain, which is a pos sible early bowel obstruction versus ileus versus chronic constipation. 1.IV fluid hydration. 2.N.p.o. status generally. 3.The patient will be given p.o. contrast for a CT scan of the abdomen and pelvis to better delineat e and define her abdominal findings. At the same time, we will give her MiraLax as she is chronicall y on this and states she really does not have bowel function for a week or longer without the assista nce of MiraLax; therefore, we will give her this to see if this helps stimulate her normal bowel func tion and may resolve some of her abdominal pain. With respect to her abdominal exam, we will continu e serial exams and I will obtain records from her previous surgery from [facility] to better understand her previous abdominal operations. In addition, continue medical management per Dr. Devine with monitoring of her immunosuppressive therapy. 4.I have explained the risks, benefits, and alternatives of the above stated plan. The patient agre es to proceed as indicated. KAYLA/PRITI Voice ID: [id number] Report ID: [id number]
--- NOTE | 2018-04-26 22:36 | P.CNS ---
Date of Consult: 04/26/18 Reason for Consult: DAE/ CKD Requesting Physician: Norma Devine Chief Complaint: Fever, shakes and chills History of Present Illness: 47 yo BF SLE presented to the ER with several weeks of moderate, progressive malaise and weakness with associated fever and chills. No alleviating fx. Patient is a 47-year-old female who has a history of lupus who has had multiple secondary complications. Patient presents to the hospital with fever shakes and chills. She apparently has been gradually worsening over the last few weeks. She came into the emergency room for evaluation. In the emergency room patient had extensive workup done and was found have a leukocytosis along with a bandemia. Patient is on immunosuppressants including CellCept and Imuran. Patient has not been feeling like herself lately. Her workup revealed a questionable left lower lobe pneumonia. Will admit her to the hospital and treat her with IV antibiotics. Will watch her for any secondary complications. She may need a peripheral blood smear review if her leukocytosis worsens. At this time she will be admitted to the hospital for further evaluation. 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 She follows up with a panel flow machine operator and Flowers at the [facility]. Allergies morphine Allergy (Severe, Verified 09/07/17 09:12) Unknown Home medications list reviewed: Yes Home Medications: Furosemide 80 mg PO BID 07/09/15 Hydralazine HCl 50 mg PO TID 07/09/15 Metoprolol Tartrate 100 mg PO BID 07/09/15 cloNIDine HCl [Clonidine HCl] 0.3 mg PO TID 07/09/15 Amlodipine [Norvasc*] 10 mg PO DAILY 08/08/15 Doxazosin [Cardura*] 4 mg PO DAILY 09/07/17 Gabapentin 400 mg PO TIDP PRN 09/07/17 Hydrocodone Bit/Acetaminophen [[place] 10-325 Tablet] 1 tab PO QIDP PRN 09/07/17 Hydroxychloroquine [Plaquenil*] 200 mg PO DAILY 09/07/17 Insulin NPH Hum/Reg Insulin Hm [Humulin 70/30 Kwikpen] 0 unit SQ BID PRN Mycophenolate Mofetil [Cellcept] 1,000 mg PO BID 09/07/17 Zolpidem Tartrate [Ambien] 5 mg PO BEDTIME PRN PRN 09/07/17 Amox/Clavulanate [Augmentin 500-125 mg Tab*] 500 mg PO BID #14 tab 11/03/17 Benzonatate [Tessalon Perle*] 200 mg PO TID PRN #20 cap 11/03/17 Fluticasone [Flonase 50MCG Nasal [place]*] 1 sprays RAY BID #1 btl 11/03/17 - Past Medical/Surgical History Diabetic: Yes -: Lupus, Rheumatology-Dr. Sandoval -: HTN -: Seizure disorder -: History of Small bowel obstruction -: Colostomy in place -: [place] -: Avasular necrosis -: pyelonephritis -: suicidal ideations -: depression -: -: Hysterectomy -: Bowel resection -: Colostomy -: trach (reversed) Psychosocial/ Personal History: single, one child. - Family History Sister Notes: lupus Father Medical History: Kidney disease Notes: Mother Medical History: Hypertension, Cancer Notes: , uterine Brother Medical History: Hypertension, Diabetes - Social History Smoking Status: Unknown if ever smoked Alcohol use: No CD- Drugs: No Caffeine use: Yes Place of Residence: Home Review of Systems 10-point ROS is otherwise unremarkable General: Weakness, Malaise Gastrointestinal: Abdominal Pain Physical Examination Temp Pulse Resp BP Pulse Ox 99.9 F 85 17 119/58 L 91 04/26/18 20:00 04/26/18 20:00 04/26/18 20:00 04/26/18 20:00 04/26/18 20:00 General: Cooperative, Mild distress HEENT: Atraumatic, Mucous membr. moist/pink Neck: Supple Respiratory: Clear to auscultation bilaterally Cardiovascular: Regular rate/rhythm, No rubs Gastrointestinal: Hypoactive, Non-distended, Tenderness Musculoskeletal: No clubbing, No contractures Integumentary: No rashes, No cyanosis Laboratory Data (last 24 hrs) 04/26/18 02:50: Sodium 139, Potassium 3.0 L, BUN 48 H, Creatinine 2.80 H, Glucose 102, Total Bilirubin 0.6, AST 15, ALT 14, Alkaline Phosphatase 125 H 04/26/18 02:50: WBC 22.4 H* D, Hgb 9.5 L, Hct 28.9 L D, Plt Count 303 Imagings Data: Imaging reviewed in the chart. Conclusions/Impression: A/ Abdominal pain in the setting of ileus vs SBO. DAE likely hypovolemia. CKD IV with proteinuria. Hypokalemia. Microcytic Anemia. SLE P/ Continue current POC and Medications. Agree with IVF. Stop Lasix. Potassium replacement. Agree with abx. No NSAIDs. AM labs. Daily weight. Thank you kindly for the consultation.
[2018-04-26 23:11] LABS: Urine Amorphous Sediment 1+ /HPF (NONE SEEN); Urine Bacteria <20 /HPF (<20); Urine Culture Reflex Order NOT NEEDED; Urine Mucus 1+ /HPF (NONE SEEN)
[2018-04-26 23:12] LABS: Urine Coarse Granular Casts 0-5 /LPF (NONE SEEN)
[2018-04-26] MEDS: ONDANSETRON 4 MG/2 ML VIAL IV PRN (23:22)
[2018-04-26] MEDS: ZOLPIDEM TARTRATE 5 MG TABLET PO PRN (23:37)
[2018-04-27 01:15] VITALS: O2SAT 93
[2018-04-27] MEDS: HYDROMORPHONE HCL 1 MG/ML INJ IV PRN ×5 (04:11→21:04)
[2018-04-27] MEDS ORDERED: HYDROCORTISONE SUC 100 MG INJ IV ONE (05:54)
[2018-04-27] MEDS: INSULIN -REGULAR HUMAN 50 UNIT/0.5 ML ML SQ SCH ×5 (06:00→21:00)
[2018-04-27] MEDS: ALPRAZOLAM 0.25 MG TABLET PO PRN ×2 (06:19→21:33)
--- NOTE | 2018-04-27 07:46 | RAD REPORT ---
EXAM DESCRIPTION: Fredo Single View04/27/2018 7:00 am CLINICAL HISTORY: Chest pain COMPARISON: April 26, 2018 FINDINGS: Bibasilar lung opacities are without significant change. Upper lobes appear clear. The hea rt is mildly to moderately enlarged IMPRESSION: No change in bibasilar lung opacities
--- NOTE | 2018-04-27 07:50 | RAD REPORT ---
EXAM DESCRIPTION: RAD - Abdomen W Erect - 04/27/2018 7:00 am CLINICAL HISTORY: AMSAbdominal pain FINDINGS: Free air is not seen beneath the diaphragm. Contrast from a recent CAT scan is present within portions of colon. The colon remains mildly distended. Small bowel caliber is normal
[2018-04-27] MEDS: AMLODIPINE 10 MG TAB PO SCH (07:55)
[2018-04-27] MEDS: CLONIDINE HCL 0.3 MG TAB PO SCH ×3 (07:55→21:32)
[2018-04-27] MEDS: METOPROLOL TAR 50 MG TAB PO SCH ×2 (07:56→21:32)
[2018-04-27] MEDS: VITAMIN D 5,000 UNIT CAP PO SCH (07:56)
[2018-04-27] MEDS: HEPARIN 5000 UNIT/ML 1 ML VIAL SQ SCH (07:57)
[2018-04-27] MEDS: DOXAZOSIN 4 MG TAB PO SCH (08:09)
[2018-04-27] MEDS: MYCOPHENOLATE MOFETIL 1000 MG PO SCH (09:00)
[2018-04-27] MEDS: VANCOMYCIN 1.25 GM in NA CHLORIDE 0.9% 250 ML IVPB SCH (09:00)
[2018-04-27 09:02] LABS: Absolute Lymphocytes (CBC) 0.6 K/uL (0.7-4.9); Absolute Monocytes 0.4 K/uL (0.1-1.3); Absolute Neutrophil 18.1 K/uL (1.8-8.0); Basophils % 0.1 % (0-1.3); Hematocrit 29.2 % (36.0-45.0); MCH 25.4 pg (27.0-35.0); MCV 79.4 fL (80-100); MPV 7.4 fL (7.6-11.3); RBC Red Blood Cell Count 3.68 M/uL (3.86-4.86)
[2018-04-27] MEDS: CEFEPIME/SWI 1gm 1 GM/10 ML SYR IV SCH (09:06)
[2018-04-27] MEDS: HYDRALAZINE HCL 20 MG/ML VIAL IV PRN (09:06)
[2018-04-27 09:21] LABS: Albumin 3.3 g/dL (3.4-5.0); Bilirubin Total 0.4 mg/dL (0.2-1.0); Magnesium 2.1 mg/dL (1.8-2.4); Phosphorus 3.5 mg/dL (2.5-4.9); Potassium 3.6 mmol/L (3.5-5.1); Protein, Total 8.4 g/dL (6.4-8.2)
[2018-04-27] MEDS: MAGNESIUM CITRATE 300 ML BOT PO SCH (09:30)
[2018-04-27] MEDS: DOCUSATE NA 100 MG CAP PO SCH ×2 (09:30→21:33)
[2018-04-27] MEDS: PSYLLIUM 1 PKT PO SCH (09:30)
[2018-04-27] MEDS: WATER FOR INJ,STERILE 10 ML IV SCH ×2 (09:31→21:33)
[2018-04-27] MEDS: HYDROCORTISONE SUC 100 MG INJ IV SCH ×2 (09:31→21:34)
--- NOTE | 2018-04-27 09:38 | P.PN ---
Subjective Date of Service: 04/27/18 Chief Complaint: Fever, shakes and chills Subjective: Improving (patient had return of bowel function, large amount of stool output, pain improved but not completely resolved) Physical Examination - Vital Signs Temperature: 99.7 F Blood Pressure: 210/94 Pulse: 135 Respirations: 18 Pulse Ox (%): 94 - Physical Exam General: Alert, In no apparent distress, Cooperative Gastrointestinal: Other (soft, mild tenderness to palpation, ostomy output is large, but stool is firm) Neurological: Normal speech - Studies Microbiology Data (last 24 hrs): 04/26/18 05:19 Blood - Blood Anaerobic Blood Culture - Final 04/26/18 05:28 Blood - Blood Anaerobic Blood Culture - Final Assessment And Plan - Current Problems (Diagnosis) (1) Constipation Current Visit: Yes Status: Acute Plan: - colace - clear liquid diet - metamucil to be mixed with 2x the water recommended - ambulate - serial exams - magnesium citrate x 1 bottle
[2018-04-27] MEDS: HYDROXYCHLOROQUINE 200MG TAB PO SCH (10:55)
[2018-04-27] MEDS: NA CHLORIDE 0.9% 1,000 ML IV SCH (10:57)
[2018-04-27] MEDS ORDERED: GLUCAGON 1 MG/VIAL IM PRN (11:02)
[2018-04-27] MEDS ORDERED: D50W 25 GM/50 ML SYRINGE IV PRN (11:02)
[2018-04-27] MEDS ORDERED: POTASSIUM 25 MEQ EFFERV TAB PO ONE (11:41)
[2018-04-27 11:45] LABS: Urine Appearance CLEAR; Urine Bilirubin NEGATIVE (NEG); Urine Blood TRACE (NEG); Urine Color YELLOW; Urine Glucose NEGATIVE (NEG); Urine Protein 2+ (NEG); Urine Specific Gravity 1.015 (1.005-1.030); Urine Urobilinogen 0.2 mg/dL (0.2-1.0)
[2018-04-27 12:10] LABS: Urine Bacteria 20-50 /HPF (<20); Urine Culture Reflex Order REFLEXED
[2018-04-27 12:11] LABS: Urine Amorphous Sediment 1+ /HPF (NONE SEEN); Urine Coarse Granular Casts 0-5 /LPF (NONE SEEN)
[2018-04-27] MEDS ORDERED: VANCOMYCIN 1.25 GM in NA CHLORIDE 0.9% 250 ML IVPB SCH (15:00)
--- NOTE | 2018-04-27 17:41 | PN ---
Date of Progress Note: 04/27/2018 Subjective: The patient seen and examined. Chart reviewed and case discussed with RN and Dr. Cathy quiroga. The patient is still complaining of pain and states that abdominal pain is radiating to the left side and towards the back. Review of Systems: Negative except as above. Medications: List reviewed. Physical Examination: Vital Signs: Temperature 99.7, heart rate 91, blood pressure 156/92, respirations 18, O2 93% on room air. General: Awake, alert, oriented x3, ill-appearing female. BMI 34. CV: S1 and S2. Regular rate and rhythm. Peripheral pulses present. Respiratory: Decreased breath sounds bilateral bases. No wheezing. The patient is slightly tachypn eic. Gastrointestinal: Abdomen is soft. Mild tenderness to palpation. Colostomy bag in place. Bowel so unds positive. Extremities: No clubbing, cyanosis, or edema. Neurologic: Nonfocal. Laboratory Data: Sodium 138, potassium 3.6, chloride 105, CO2 of 16, BUN 46, creatinine 2.4, glucose 111, lactate 0.6, calcium 8.7. WBC 19.1, H and H 9.4 and 29.2, platelets 293, neutrophils 94%. No bands. Abdominal x-ray shows colon remains mildly distended, small-bowel caliber is normal, free air is not seen beneath the diaphragm. Chest x-ray shows no change in bibasilar lung opacities, upper l obes appear clear. Assessment And Plan: A 47-year-old female with: 1.Acute kidney injury. 2.Systemic inflammatory response syndrome, early sepsis. The patient has elevated white count. Elizabeth rce of infection is basilar pneumonia. 3.Altered mental status, resolved. 4.Cardiomegaly. 5.Chest pain, atypical, resolved. 6.Hypertensive urgency. Continue with p.r.n. medications. 7.History of avascular necrosis as above. 8.Acute on chronic kidney disease stage 3. Creatinine improving slightly and Dr. Adkins has been c onsulted. 9.Chronic pain syndrome. 10.Diabetes mellitus type 2 with long-term use of insulin with kidney complications. We will contin ue sliding scale insulin. 11.Lupus nephritis, on immune modulating drugs. 12.History of seizure disorder, stable. 13.Bibasilar pneumonia. Cultures pending. 14.History of colostomy. 15.Ileus, possible enteritis. Plan: Continue IV antibiotics. Appreciate Dr. Allison's input. Clear liquid diet and advance as pe r surgery. We will continue with p.r.n. blood pressure medications. We will monitor IV fluids at lo w rate due to acute kidney injury. Follow up with Nephrology recommendations. /PRITI Voice ID: [id number] Report ID: [id number]
--- NOTE | 2018-04-27 19:28 | CON ---
History Of Present Illness: This is a 47-year-old female. The patient has significant history of sy stemic lupus and is being treated with high dose steroids. The patient came into the hospital with f ever, shakes and chills over the last few days to weeks. The patient came to the emergency room for further evaluation. The patient was admitted to the hospital with leukocytosis and bandemia and her immunosuppressive state. The patient was also found to have left lower lobe pneumonia and was starte d on IV antibiotics. Past Medical History: Includes lupus erythematosus followed by Dr. Christian, hypertension, seizure d isorder, history of small bowel obstruction, colostomy, colostomy in place, myocardial infarction, av ascular necrosis, pyelonephritis, suicidal ideation, depression, , hysterectomy, bowel resec tion, hip replacement, knee replacement. Social History: No alcohol. No tobacco. Family History: Kidney disease, cancer, hypertension, diabetes mellitus. Medications: Include cefepime and vancomycin. See MARS for other medication. Allergies: MORPHINE. Review of Systems: A 10-point review was performed. Physical Examination: General: This is a 47-year-old female, lying in bed, not in any acute cardiopulmonary distress. Vital Signs: Temperature 98, pulse 88, respiration 18, blood pressure 155/90. HEENT: Unremarkable. Neck: Supple. Lungs: Basilar crackles, left more than right. Heart: S1, S2. Regular. Abdomen: Soft, nontender. Bowel sounds positive. Extremity: Trace edema. Colostomy bag noted to the right side. Peripheral line is in right forearm . Diagnostic Data: Chest x-ray done today shows bibasilar lung opacities. Laboratory Data: Shows WBC 22,000 down to 19,000, hemoglobin 9.4, platelets 293, with neutrophil of 94.9. Assessment And Plan: A 47-year-old female with multiple medical problems including leukocytosis, pne umonia with longstanding history of lupus and multiple surgeries and immunosuppressive state. We wesley l continue IV antibiotic for at least 2-4 weeks pending culture results. Continue antibiotic and sup portive care. Thank you for consult. NF/MODL Voice ID: [id number] Report ID: [id number]
[2018-04-27] MEDS: MYCOPHENOLATE MOFETIL 500 MG PO SCH (21:31)
[2018-04-27] MEDS: ZOLPIDEM TARTRATE 5 MG TABLET PO PRN (21:33)
--- NOTE | 2018-04-27 22:13 | P.PN ---
Date of Service: 04/27/18 Vital Signs Temp Pulse Resp BP Pulse Ox 98.8 F 92 H 18 151/91 H 94 04/27/18 20:00 04/27/18 20:00 04/27/18 20:00 04/27/18 20:00 04/27/18 20:00 Medications Acetaminophen (Tylenol -Extra Strength) 500 mg PO Q4HP PRN PRN Reason: [id number] Stop: 05/26/18 08:43 Last Admin: 04/26/18 16:40 Dose: 500 mg Hydrocodone Bitart/Acetaminophen ([place] 10/325) 1 tab PO QIDP PRN PRN Reason: PAIN Stop: 05/26/18 08:48 Last Admin: 04/26/18 22:03 Dose: 1 tab Albuterol Sulfate (Proventil 0.083% Neb Soln) 2.5 mg NEB Q6HP PRN PRN Reason: SHORTNESS OF BREATH Stop: 05/26/18 08:43 Alprazolam (Xanax) 0.25 mg PO BEDTIME PRN PRN PRN Reason: INSOMNIA Stop: 05/26/18 08:43 Last Admin: 04/27/18 21:33 Dose: 0.25 mg Amlodipine Besylate (Norvasc) 10 mg PO DAILY ELOISE Stop: 05/26/18 09:01 Last Admin: 04/27/18 07:55 Dose: 10 mg Cholecalciferol (Vitamin D 5,000 Iu Cap) 5,000 unit PO DAILY ELOISE Stop: 05/27/18 09:01 Last Admin: 04/27/18 07:56 Dose: 5,000 unit Clonidine HCl (Catapres) 0.3 mg PO TID ELOISE Stop: 05/26/18 09:01 Last Admin: 04/27/18 21:32 Dose: 0.3 mg Dextrose (Dextrose 50% Syringe) 12.5 gm IV PRN PRN; Protocol PRN Reason: HYPOGLYCEMIA Stop: 05/26/18 18:06 Docusate Sodium (Colace Cap) 100 mg PO BID ELOISE Stop: 05/27/18 09:01 Last Admin: 04/27/18 21:33 Dose: 100 mg Doxazosin Mesylate (Cardura) 4 mg PO DAILY ELOISE Stop: 05/26/18 09:01 Last Admin: 04/27/18 08:09 Dose: 4 mg Gabapentin (Neurontin) 400 mg PO TIDP PRN PRN Reason: PAIN Stop: 05/26/18 08:48 Glucagon (Glucagen) 1 mg IM 1X PRN; Protocol PRN Reason: HYPOGLYCEMIA Stop: 05/26/18 18:06 Heparin Sodium (Porcine) (Heparin 5,000 Units/Ml) 5,000 unit SQ DAILY ELOISE Stop: 05/26/18 09:01 Last Admin: 04/27/18 07:57 Dose: 5,000 unit Home Med (Mycophenolate Mofetil [Cellcept]) 0 mg PO BID [facility] Stop: 05/26/18 09:01 Last Admin: 04/27/18 21:31 Dose: 2 mg Hydralazine HCl (Apresoline) 20 mg IV Q4HP PRN PRN Reason: HIGH BP Stop: 05/27/18 08:50 Last Admin: 04/27/18 09:06 Dose: 20 mg Hydrocortisone Sodium Succinate (Solu-Cortef) 50 mg IV Q12HR ELOISE Stop: 05/27/18 09:01 Last Admin: 04/27/18 21:34 Dose: 50 mg Hydromorphone HCl (Dilaudid) 1 mg IV Q4H PRN PRN Reason: PAIN MODERATE TO SEVERE Stop: 05/26/18 08:50 Last Admin: 04/27/18 21:04 Dose: 1 mg Hydroxychloroquine Sulfate (Plaquenil) 200 mg PO DAILY [facility] Stop: 05/26/18 09:01 Last Admin: 04/27/18 10:55 Dose: 200 mg Sodium Chloride (Ns 1000 Ml Ivbag) 1,000 mls @ 75 mls/hr IV .[id number] [facility] Stop: 05/26/18 09:01 Last Admin: 04/27/18 10:57 Dose: 1,000 mls Cefepime HCl (Maxipime 1 Gm/10 Ml Swi Ivp) 1 gm in 10 mls @ 200 mls/hr IV DAILY [facility] Stop: 05/26/18 09:01 Last Admin: 04/27/18 09:06 Dose: 10 mls Vancomycin HCl 1.25 gm/ Sodium (Chloride) 250 mls @ 125 mls/hr IVPB Q36H ELOISE; Protocol Stop: 05/27/18 15:01 Last Admin: 04/27/18 14:03 Dose: 250 mls Insulin Human Regular (Novolin -R) 0 unit SQ ACHS [facility]; Protocol Stop: 05/27/18 11:31 Last Admin: 04/27/18 16:30 Dose: Not Given Magnesium Citrate (Citrate Of Magnesia) 300 ml PO 1X ELOISE Stop: 05/27/18 09:01 Last Admin: 04/27/18 09:30 Dose: 300 ml Metoprolol Tartrate (Lopressor) 100 mg PO BID [facility] Stop: 05/26/18 09:01 Last Admin: 04/27/18 21:32 Dose: 100 mg Ondansetron HCl (Zofran) 4 mg IV Q6HP PRN PRN Reason: NAUSEA / VOMITING Stop: 05/26/18 08:43 Last Admin: 04/26/18 23:22 Dose: 4 mg Psyllium Hydrophilic Mucilloid (Metamucil) 1 pkt PO DAILY [facility] Stop: 05/27/18 09:01 Last Admin: 04/27/18 09:30 Dose: 1 pkt Simethicone (Mylicon Tab) 80 mg PO Q6H PRN PRN Reason: GAS Stop: 05/26/18 14:26 Last Admin: 04/26/18 14:40 Dose: 80 mg Sodium Bicarbonate (Sodium Bicarb 325 Mg) 650 mg PO TID [facility] Stop: 05/28/18 09:01 Sodium Chloride (Normal Saline Flush) 10 ml IV BID [facility] Stop: 05/26/18 09:01 Last Admin: 04/27/18 21:31 Dose: 10 ml Sterile Water (Sterile Water For Inj (10 Ml Vial)) 2 ml IV Q12HR [facility] Stop: 05/27/18 09:01 Last Admin: 04/27/18 21:33 Dose: 2 ml Zolpidem Tartrate (Ambien) 5 mg PO BEDTIME PRN PRN PRN Reason: INSOMNIA Stop: 05/26/18 08:48 Last Admin: 04/27/18 21:33 Dose: 5 mg Microbiology Results 04/26/18 05:19 Blood - Blood Aerobic Blood Culture - Preliminary No growth in 24 hours. 04/26/18 05:19 Blood - Blood Anaerobic Blood Culture - Final 04/26/18 05:28 Blood - Blood Aerobic Blood Culture - Preliminary No growth in 24 hours. 04/26/18 05:28 Blood - Blood Anaerobic Blood Culture - Final Assessment/ Plan: Nephrology Pain with breathing. Left flank pain, persistent. CPS stable without CP or SOB. No acute events overnight. Vitals, medications, blood work and imaging reviewed in the chart. General: Cooperative, Mild distress HEENT: Atraumatic, Mucous membr. moist/pink Neck: Supple Respiratory: Clear to auscultation bilaterally Cardiovascular: Regular rate/rhythm, No rubs Gastrointestinal: Hypoactive, Non-distended, Tenderness Musculoskeletal: No clubbing, No contractures Integumentary: No rashes, No cyanosis Laboratory Data (last 24 hrs) 04/26/18 02:50: Sodium 139, Potassium 3.0 L, BUN 48 H, Creatinine 2.80 H, Glucose 102, Total Bilirubin 0.6, AST 15, ALT 14, Alkaline Phosphatase 125 H 04/26/18 02:50: WBC 22.4 H* D, Hgb 9.5 L, Hct 28.9 L D, Plt Count 303 Imagings Data: Imaging reviewed in the chart. Conclusions/Impression: A/ Abdominal pain in the setting of ileus vs SBO. DAE likely hypovolemia. CKD IV with proteinuria. Hypokalemia. Microcytic Anemia. Acidosis. SLE P/ Continue current POC and Medications. Agree with IVF. Start Bicarb. Follow up with surgery. Agree with abx. No NSAIDs. AM labs. Daily weight.
[2018-04-28] MEDS: NA CHLORIDE 0.9% 1,000 ML IV SCH ×2 (01:00→05:10)
[2018-04-28] MEDS: HYDROMORPHONE HCL 1 MG/ML INJ IV PRN ×3 (01:07→09:08)
[2018-04-28] MEDS: HYDRALAZINE HCL 20 MG/ML VIAL IV PRN (01:07)
[2018-04-28 05:56] LABS: Absolute Lymphocytes (CBC) 1.2 K/uL (0.7-4.9); Absolute Monocytes 0.4 K/uL (0.1-1.3); Absolute Neutrophil 11.9 K/uL (1.8-8.0); Basophils % 0.2 % (0-1.3); Eosinophils % 0.5 % (0-4.4); Lymphocytes % 8.6 % (15.3-44.8); MCH 26.5 pg (27.0-35.0); MCV 78.4 fL (80-100); MPV 7.5 fL (7.6-11.3); Monocytes % 2.8 % (3.3-12.3); RBC Red Blood Cell Count 3.58 M/uL (3.86-4.86)
[2018-04-28 06:10] LABS: Bilirubin Total 0.4 mg/dL (0.2-1.0); Magnesium 2.6 mg/dL (1.8-2.4); Potassium 3.7 mmol/L (3.5-5.1); Protein, Total 8.3 g/dL (6.4-8.2)
[2018-04-28] MEDS: INSULIN -REGULAR HUMAN 50 UNIT/0.5 ML ML SQ SCH ×2 (07:30→11:30)
[2018-04-28] MEDS: ONDANSETRON 4 MG/2 ML VIAL IV PRN (07:33)
[2018-04-28 08:46] VITALS: TEMP 98.1
[2018-04-28] MEDS: AMLODIPINE 10 MG TAB PO SCH (08:59)
[2018-04-28] MEDS: METOPROLOL TAR 50 MG TAB PO SCH (08:59)
[2018-04-28] MEDS: PSYLLIUM 1 PKT PO SCH (08:59)
[2018-04-28] MEDS: DOCUSATE NA 100 MG CAP PO SCH (09:00)
[2018-04-28] MEDS ORDERED: POTASSIUM CL SA 10 MEQ TAB PO ONE (09:00)
[2018-04-28] MEDS: DOXAZOSIN 4 MG TAB PO SCH (09:00)
[2018-04-28] MEDS: VITAMIN D 5,000 UNIT CAP PO SCH (09:00)
[2018-04-28] MEDS: SODIUM BICARB 325 MG TAB PO SCH ×2 (09:00→13:07)
[2018-04-28] MEDS: HEPARIN 5000 UNIT/ML 1 ML VIAL SQ SCH (09:00)
[2018-04-28] MEDS: HYDROXYCHLOROQUINE 200MG TAB PO SCH (09:00)
[2018-04-28] MEDS: WATER FOR INJ,STERILE 10 ML IV SCH (09:00)
[2018-04-28] MEDS: MAGNESIUM CITRATE 300 ML BOT PO SCH (09:00)
[2018-04-28] MEDS: MYCOPHENOLATE MOFETIL 500 MG PO SCH (09:01)
[2018-04-28] MEDS: CLONIDINE HCL 0.3 MG TAB PO SCH ×2 (09:02→13:07)
[2018-04-28] MEDS: HYDROCORTISONE SUC 100 MG INJ IV SCH (09:28)
[2018-04-28] MEDS: CEFEPIME/SWI 1gm 1 GM/10 ML SYR IV SCH (09:38)
[2018-04-28] MEDS ORDERED: SUCCINYLCHOLINE 20 MG/ML (10 ML) IV ONE (10:00)
[2018-04-28] MEDS ORDERED: ETOMIDATE 20 MG/10 ML VIAL IV ONE (10:00)
[2018-04-28 13:08] VITALS: BP 176/97
--- NOTE | 2018-04-28 21:39 | P.PN ---
Date of Service: 04/28/18 Vital Signs Temp Pulse Resp BP Pulse Ox 98.1 F 88 18 176/97 H 95 04/28/18 08:00 04/28/18 08:00 04/28/18 08:00 04/28/18 13:07 04/28/18 08:00 Microbiology Results 04/26/18 05:19 Blood - Blood Aerobic Blood Culture - Preliminary No growth in 24 hours. 04/26/18 05:19 Blood - Blood Anaerobic Blood Culture - Final 04/26/18 05:28 Blood - Blood Aerobic Blood Culture - Preliminary No growth in 24 hours. 04/26/18 05:28 Blood - Blood Anaerobic Blood Culture - Final Assessment/ Plan: Nephrology Feeling much better today. CPS stable without CP or SOB. No acute events overnight. Vitals, medications, blood work and imaging reviewed in the chart. General: Cooperative, Mild distress HEENT: Atraumatic, Mucous membr. moist/pink Neck: Supple Respiratory: Clear to auscultation bilaterally Cardiovascular: Regular rate/rhythm, No rubs Gastrointestinal: Hypoactive, Non-distended, Tenderness Musculoskeletal: No clubbing, No contractures Integumentary: No rashes, No cyanosis Laboratory Data (last 24 hrs) 04/26/18 02:50: Sodium 139, Potassium 3.0 L, BUN 48 H, Creatinine 2.80 H, Glucose 102, Total Bilirubin 0.6, AST 15, ALT 14, Alkaline Phosphatase 125 H 04/26/18 02:50: WBC 22.4 H* D, Hgb 9.5 L, Hct 28.9 L D, Plt Count 303 Imagings Data: Imaging reviewed in the chart. Conclusions/Impression: A/ Abdominal pain in the setting of ileus vs SBO. DAE likely hypovolemia. CKD IV with proteinuria. Hypokalemia. Microcytic Anemia. Acidosis. SLE P/ Continue current POC and Medications. DC IVF. PT as tolerated. Follow up with surgery. Agree with abx. No NSAIDs. AM labs. Daily weight.
--- NOTE | 2018-04-29 07:59 | DS ---
Date of Discharge: 04/28/2018 Consultants: Dr. Allison, General Surgery, and Dr. Tyler, Infectious Disease, Dr. Adkins with Neph rology. Admitting Diagnoses: 1.Brybp-ue-dwtxkbz kidney injury. 2.Acute metabolic encephalopathy. 3.Cardiomegaly. 4.Hypertensive urgency. 5.History of avascular necrosis. 6.Systemic lupus erythematosus. 7.Chronic pain syndrome. 8.Diabetes mellitus type 2 with long-term use of insulin with kidney complications. 9.Seizure disorder. 10.Left lower lobe pneumonia. 11.History of colostomy. 12.Constipation. Discharge Diagnoses: 1.Vtzfn-yw-pnetbsi kidney injury, stage 3. 2.Systemic inflammatory response syndrome, early sepsis, resolved. 3.Left basilar pneumonia, improving. 4.Metabolic encephalopathy, resolved. 5.Cardiomegaly. 6.Atypical chest pain, resolved. 7.Hypertensive urgency, improved. 8.History of avascular necrosis. 9.Chronic kidney disease, stage 3. 10.Chronic pain syndrome. 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 12.Lupus nephritis. 13.Systemic lupus erythematosus. 14.History of seizure disorder. 15.Bibasilar pneumonia. 16.History of colostomy. 17.Constipation, ileus, resolved. Hospital Course: The patient is a 47-year-old female with complicated medical history including lupu s; subsequent kidney dysfunction, stage 3; also uncontrolled blood pressure; seizure disorder; histor y of small-bowel obstruction, status post multiple surgeries and eventual colostomy; avascular necros is; comes in with fever, shakes and chills, high fever. The patient had elevated white count of 22,0 00. Her ESR was elevated. She was placed on broad-spectrum IV antibiotics. Cultures were obtained, which did not show any growth. Urine culture was also negative. The patient responded well. Her w parth count improved. She was placed on stress dose steroids. She did have some elevation of her kid emma function, which was above her baseline. Her acute kidney injury was also treated with IV fluids and hydration. She was seen by her regular fuel cell technician, Dr. Adkins, covering for Dr. Jean-Baptiste. Sh e on her abdomen and pelvis CT had consolidated left lung base pneumonia, constipation pattern with l arge amount of stool descending from the colon. Small transition of distal margin of the colon with no focal stricture or mass identified. No free air. The patient was seen by Dr. Allison with [facility]. She did have a possible ileus versus enteritis. The patient was started on a bowel regim en and she did have return of her bowel function and felt significantly better. Repeat abdominal x-r ay showed no free air underneath the diaphragm, the colon mildly distended, small bowel caliber evonne l. Her kidney function returned to normal. Her chest x-ray showed upper lobes clear, but no signifi cant change in the bibasilar opacities. The patient was also seen by Infectious Disease, Dr. Tyler, due to her sepsis. The patient had a good response to IV antibiotics. She felt significantly stephan r. Her procalcitonin level was trending down. The patient was no longer febrile. Her vital signs w ere stable. Her blood pressure was also more stable. The patient was then cleared for discharge fro m surgical standpoint. Her electrolytes were corrected and she was cleared by Infectious Disease as well. She was then discharged to home in a stable condition. Activity: As tolerated. Medications: As per medication reconciliation list. Followup: Follow up with primary care physician in 2 to 3 days. Follow up with motor rebuilder in 2 weeks. Follow up with fuel cell technician, Dr. Jean-Baptiste, in 2 to 4 weeks. Follow up with Infectious Diseas e, Dr. Tyler, in 2 weeks. Follow up with surgeon, Dr. Allison, per his recommendation. Return to [facility] for worsening condition. Diet: Renal diet with appropriate bowel regimen. Activity: No driving or operating heavy machinery while on narcotics. Total time spent discharging the patient was 40 minutes. Physical Examination: General: Awake, alert, oriented, no acute distress. CV: S1, S2. No murmurs. Respiratory: Moving air well bilaterally. Abdomen: Soft, nontender, nondistended. Positive bowel sounds. Colostomy with stool in place. Extremities: No clubbing, cyanosis, or edema. Neurologic: Nonfocal. SA/MODL Voice ID: [id number] Report ID: [id number]
[2018-04-30 17:23] LABS: Complement (CH50), Total 60 U/mL (31-60)
== END 2018-04-28 13:38 | disposition home or self-care (01) | DRG 871 ==
LOC: ER 02:12 → ERHOLD 08:52 → 4TH 13:21
PROVIDERS: ADMIT Hospitalist; ATTEND Family Medicine
DX: A41.9 Sepsis, unspecified organism (principal); G93.41 Metabolic encephalopathy; J18.9 Pneumonia, unspecified organism; N17.9 Acute kidney failure, unspecified; M90.552 Osteonecrosis in diseases classified elsewhere, left thigh; M90.551 Osteonecrosis in diseases classified elsewhere, right thigh; M87.88 Other osteonecrosis, other site; K56.7 Ileus, unspecified; R65.20 Severe sepsis without septic shock; I12.9 Hypertensive chronic kidney disease with stage 1 through stage 4 chronic kidney disease, or unspecified chronic kidney disease; E11.22 Type 2 diabetes mellitus with diabetic chronic kidney disease; N18.3 Chronic kidney disease, stage 3 (moderate); Z79.4 Long term (current) use of insulin; I51.7 Cardiomegaly; I16.0 Hypertensive urgency; M32.9 Systemic lupus erythematosus, unspecified; Z88.5 Allergy status to narcotic agent; G89.4 Chronic pain syndrome; E11.69 Type 2 diabetes mellitus with other specified complication; M32.14 Glomerular disease in systemic lupus erythematosus; G40.909 Epilepsy, unspecified, not intractable, without status epilepticus; K59.00 Constipation, unspecified; Z93.3 Colostomy status; I25.2 Old myocardial infarction; E86.1 Hypovolemia; R80.8 Other proteinuria; E87.6 Hypokalemia; D50.9 Iron deficiency anemia, unspecified; Z96.643 Presence of artificial hip joint, bilateral; Z96.653 Presence of artificial knee joint, bilateral; R07.89 Other chest pain
CPT/HCPCS: 36415; 71045; 74019; 74022; 74176; 80053; 80202; 81001; 81003; 82962; 83605; 83735; 84100; 84132; 84145; 85025; 85652; 86160; 86162; 87040; 87086; 87088; 96374; 96375; 99284; J0330; J0360; J0692; J1170; J1644; J1720; J2405; J7030

== ENCOUNTER 2018-07-27 18:44 | Emergency (ER) | payer OTHER ==
--- OUTSIDE RECORDS SUMMARY | 2018-07-27 18:47 | XMS REPORT | Clinical Summary ---
:1970 Author Organization [facility] Address [address] [place] [address] Care Team Providers Name Role Phone Monico Espinoza DO Primary Care Provider Allergies No Known Allergies Medications Medication Sig Dispensed Refills Start Date End Date Status doxazosin (CARDURA) 4 MG TK 1 T PO QD 0 12/31/2016 Active tablet mycophenolate (CELLCEPT) TK 3 TS PO 0 01/03/2017 Active 500 mg tablet BID zolpidem (AMBIEN) 5 MG TK 1 T PO 0 02/10/2017 Active tablet QHS. hydroxychloroquine Take 500 mg 0 Active (PLAQUENIL) 200 mg tablet by mouth 2 (two) times a day. metoprolol tartrate Take 100 mg 0 Active (LOPRESSOR) 100 mg tablet by mouth 2 (two) times a day. clonIDINE HCl (CATAPRES) Take 0.3 mg 0 Active 0.3 MG tablet by mouth 3 (three) times a day. hydrALAZINE (APRESOLINE) 50 Take 50 mg by 0 Active MG tablet mouth 3 (three) times a day. amLODIPine (NORVASC) 10 mg Take 10 mg by 0 Active tablet mouth daily. furosemide (LASIX) 40 mg Take 40 mg by 0 Active tablet mouth 2 (two) times a day. GABAPENTIN ORAL Take 500 mg 0 Active by mouth as needed. HYDROCODONE/ACETAMINOPHEN Take by mouth 0 Active (NORCO ORAL) as needed. Active Problems Problem Noted Date Colostomy in place 02/23/2017 Encounters Date Type Specialty Care Team Description 01/31/2018 Orders Only General Surgery Nataly Bansal MA 11/15/2017 Hospital Encounter Radiology after 07/26/2017 Social History Tobacco Use Types Packs/Day Years Used Date Never Smoker Alcohol Use Drinks/Week oz/Week Comments No Sex Assigned at Date Recorded Not on file Job Start Date Occupation Industry Not on file Not on file Not on file Travel History Travel Start Travel End No recent travel history available. Last Filed Vital Signs Not on file Plan of Treatment Date Type Specialty Care Team Description 08/02/2018 Office Visit General Surgery Darrel Burgess MD [id number] [facility] [address] [place] [address] Health Maintenance Due Date Last Done Comments MMR VACCINES (1 of 1 - Standard 1971 series) VARICELLA VACCINES (1 of 2 - 2-dose 1983 adolescent series) CERVICAL CANCER SCREENING 1991 INFLUENZA VACCINE 03/29/2018 HEPATITIS B VACCINES Aged Out No longer eligible based on patient's age to complete this topic IPV VACCINES Aged Out No longer eligible based on patient's age to complete this topic MENINGOCOCCAL VACCINE Aged Out No longer eligible based on patient's age to complete this topic Results Not on fileafter 07/26/2017 Insurance Payer Benefit Plan / Group Subscriber ID Type Phone Address [facility] MEDICARE [facility] DUAL COMPLETE MCR xxxxxxxxx [facility] MEDICAID MEDICAID xxxxxxxxx Medicaid Advance Directives Patient has advance care planning documents on file. For more information, please contact:[place] [address]
[2018-07-27] MEDS ORDERED: FENTANYL CITR 100 MCG/2 ML ONE (19:40)
--- NOTE | 2018-07-27 21:16 | RAD REPORT ---
EXAM DESCRIPTION: CT - Stone Protocol - 07/27/2018 8:54 pm CLINICAL HISTORY: Abdominal pain. Blood from colostomy COMPARISON: March 2018 TECHNIQUE: Computed axial tomography of the abdomen pelvis was obtained without oral or IV contrast. Lack of IV and oral contrast limits evaluation of solid organs, bowel, and vessels. Coronal reformat brianna images were obtained and reviewed. All CT scans are performed using dose optimization technique as appropriate and may include automated exposure control or mA/KV adjustment according to patient size. FINDINGS: A renal calculus is not seen. An ureteral calculus is not noted. A bladder calculus is not present. The liver, spleen, pancreas and adrenals appear grossly normal Right lower quadrant colostomy. Verónica's pouch. The colon is distended with stool to the level of t he colostomy measuring 6 centimeters in diameter. A moderate to large amount of stool is present with in the colon Diastases of the rectus abdominis muscle measures 16 centimeters. IMPRESSION: Negative for a genitourinary calculus Narrowing of the colon as enters the stoma. The proximal colon is moderately distended with stool
[2018-07-27] MEDS ORDERED: ONDANSETRON 4 MG (ODT) TAB ONE (21:31)
[2018-07-27 22:09] LABS: Absolute Lymphocytes (CBC) 1.3 K/uL (0.7-4.9); Absolute Monocytes 1.1 K/uL (0.1-1.3); Absolute Neutrophil 6.5 K/uL (1.8-8.0); Basophils % 0.8 % (0-1.3); Eosinophils % 2.2 % (0-4.4); Hematocrit 36.9 % (36.0-45.0); Lymphocytes % 14.3 % (15.3-44.8); MCH 26.5 pg (27.0-35.0); MCV 80.3 fL (80-100); MPV 7.7 fL (7.6-11.3); Monocytes % 11.6 % (3.3-12.3); RBC Red Blood Cell Count 4.59 M/uL (3.86-4.86)
[2018-07-27 22:30] LABS: Albumin 4.2 g/dL (3.4-5.0); Bilirubin Direct 0.1 mg/dL (0-0.2); Bilirubin Total 0.2 mg/dL (0.2-1.0); Potassium 3.4 mmol/L (3.5-5.1); Protein, Total 9.2 g/dL (6.4-8.2)
[2018-07-27] MEDS ORDERED: NA CHLORIDE 0.9% 1,000 ML ONE (23:52)
[2018-07-28] MEDS ORDERED: ONDANSETRON 4 MG/2 ML VIAL ONE (00:02)
[2018-07-28 00:09] LABS: Arterial Blood Carboxyhemoglob 0.7 % (0-1.5); Blood Gas Oxyhemoglobin 94.9 % (94-97)
[2018-07-28] MEDS ORDERED: HYDROMORPHONE HCL 1 MG/ML INJ ONE ×2 (00:26→02:08)
[2018-07-28] MEDS ORDERED: PROMETHAZINE 25 MG/ML VIAL ONE ×2 (00:41→00:47)
[2018-07-28] MEDS ORDERED: NA CHLORIDE 0.9% 100 ML IV ONE (00:42)
--- NOTE | 2018-07-28 02:14 | EDPHYS ---
Physician Documentation [facility] Name: Babs Younger Age: 48 yrs Sex: Female : 1970 Arrival Date: 07/27/2018 Time: 18:48 Bed 7 Private MD: ED Physician Kilo Olea HPI: 07/28 02:06 This 48 yrs old Black Female presents to ER via EMS with complaints of Abdominal Pain. gs 02:06 The patient presents to the emergency department bright red blood per ostomy. Onset: gs The symptoms/episode began/occurred yesterday. Abdominal pain: described as crampy. Modifying factors: The symptoms are alleviated by nothing, the symptoms are aggravated by nothing. Associated signs and symptoms: Pertinent positives: vomiting. Severity of symptoms: At their worst the symptoms were severe in the emergency department the symptoms have improved moderately. The patient has experienced similar episodes in the past, a few times. FAGOTER: 07/27 18:52 LMP N/A - Irregular menses bp Historical: - Allergies: 18:52 Morphine; bp - Home Meds: 18:52 Ambien 5 mg Oral tab 1 tab qhs prn [Active]; amlodipine 10 mg tab 1 tab once daily bp [Active]; CellCept 500 mg Oral tab 2 tabs 2 times per day [Active]; clonidine HCl 0.3 mg Oral tab 1 tab three times a day [Active]; doxazosin 4 mg Oral tab 1 tab once daily [Active]; furosemide 80 mg Oral tab 1 tab 2 times per day [Active]; gabapentin 400 mg Oral cap 1 cap as needed [Active]; Humulin 70/30 100 unit/mL (70-30) Sub-Q susp 60 units in am and 40 units at night [Active]; hydralazine 50 mg Oral tab 1 tab three times a day [Active]; metoprolol tartrate 100 mg Oral tab 1 tab 2 times per day [Active]; [place] 10-325 mg Oral tab 1 tab QID PRN [Active]; Plaquenil 200 mg Oral tab 1 tab once daily [Active]; - PMHx: 18:52 Diabetes - IDDM; Hypertension; Lupus; Renal Disease; bp - PSHx: 20:37 Hysterectomy; Colostomy; ak1 - Immunization history:: Adult Immunizations up to date. - Social history:: Smoking status: Patient/guardian denies using tobacco. - Ebola Screening: : Patient negative for fever greater than or equal to 101.5 degrees Fahrenheit, and additional compatible Ebola Virus Disease symptoms Patient denies exposure to infectious person Patient denies travel to an Ebola-affected area in the 21 days before illness onset No symptoms or risks identified at this time. ROS: 07/28 02:06 Constitutional: Negative for fever. gs All other systems are negative. Exam: 02:06 Head/Face: Normocephalic, atraumatic. Eyes: Pupils equal round and reactive to light, gs extra-ocular motions intact. Lids and lashes normal. Conjunctiva and sclera are non-icteric and not injected. Cornea within normal limits. Periorbital areas with no swelling, redness, or edema. ENT: Nares patent. No nasal discharge, no septal abnormalities noted. Tympanic membranes are normal and external auditory canals are clear. Oropharynx with no redness, swelling, or masses, exudates, or evidence of obstruction, uvula midline. Mucous membranes moist. Neck: Trachea midline, no thyromegaly or masses palpated, and no cervical lymphadenopathy. Supple, full range of motion without nuchal rigidity, or vertebral point tenderness. No Meningismus. Chest/axilla: Normal chest wall appearance and motion. Nontender with no deformity. No lesions are appreciated. Cardiovascular: Regular rate and rhythm with a normal S1 and S2. No gallops, murmurs, or rubs. Normal PMI, no JVD. No pulse deficits. Respiratory: Lungs have equal breath sounds bilaterally, clear to auscultation and percussion. No rales, rhonchi or wheezes noted. No increased work of breathing, no retractions or nasal flaring. 02:06 Back: No spinal tenderness. No costovertebral tenderness. Full range of motion. Skin: Warm, dry with normal turgor. Normal color with no rashes, no lesions, and no evidence of cellulitis. MS/ Extremity: Pulses equal, no cyanosis. Neurovascular intact. Full, normal range of motion. Neuro: Awake and alert, GCS 15, oriented to person, place, time, and situation. Cranial nerves II-XII grossly intact. Motor strength 5/5 in all extremities. Sensory grossly intact. Cerebellar exam normal. Normal gait. 02:06 Constitutional: The patient appears alert, awake, uncomfortable. 02:06 Abdomen/GI: Palpation: moderate abdominal tenderness, in all quadrants, rebound tenderness, is not appreciated, large diastasis or hernia abdominal wall, removed ostomy did not appreciate acute bleeding.. Vital Signs: 07/27 18:52 BP 200 / 108; Pulse 98; Resp 16; Temp 98.4; Pulse Ox 99% ; Weight 86.18 kg; Height 5 bp ft. 2 in. (157.48 cm); 20:58 BP 187 / 101; Pulse 86; Resp 18; Pulse Ox 99% ; ea 21:00 BP 226 / 104; Pulse 83; Resp 18; Pulse Ox 98% ; ea 23:57 BP 240 / 90; Pulse 81; Resp 20; Temp 97.9; Pulse Ox 100% on R/A; ag4 07/28 01:44 BP 229 / 119; Pulse 75; Resp 20; Pulse Ox 100% on R/A; ak1 02:55 BP 200 / 100; Pulse 80; Resp 18; Temp 98; Pulse Ox 99% on R/A; ea 07/27 18:52 Body Mass Index 34.75 (86.18 kg, 157.48 cm) bp MDM: 07/27 19:32 Patient medically screened. 07/28 02:06 Differential diagnosis: diverticulitis, hemorrhagic shock, bowel obstruction, gs mesenteric ischemia. Data reviewed: vital signs, nurses notes. Counseling: I had a detailed discussion with the patient and/or guardian regarding: the historical points, exam findings, and any diagnostic results supporting the discharge/admit diagnosis, lab results, radiology results, the need to transfer to another facility, for higher level of care, [facility] does not immediately have the required specialist. Response to treatment: the patient's symptoms have mildly improved after treatment. 07/27 19:28 Order name: Basic Metabolic Panel; Complete Time: 23:15 07/28 01:45 Interpretation: Abnormal. 07/27 19: Order name: CBC with Diff; Complete Time: 23:15 07/27 19:28 Order name: Hepatic Function; Complete Time: 23:15 07/27 19:28 Order name: Lipase; Complete Time: 23:15 07/27 23:18 Order name: ABG; Complete Time: 01:01 07/27 19: Order name: CT Stone Protocol; Complete Time: 21:22 07/28 01:42 Order name: PT-INR; Complete Time: 04:40 07/27 19:29 Order name: IV Saline Lock; Complete Time: 23:44 07/27 19: Order name: Labs collected and sent; Complete Time: 23:00 Administered Medications: 07/27 21:30 Drug: fentaNYL (PF) 50 mcg {Note: Medication adminsitered IM to right deltoid.} Route: ea IVP; Site: Other; 22:00 Follow up: Response: No adverse reaction; Pain is decreased ea :30 Drug: Zofran 4 mg Route: PO; ea 22:00 Follow up: Response: No adverse reaction ea 23:47 Drug: NS 0.9% 1000 ml Route: IV; Rate: 1 bolus; Site: left upper arm; ea 07/28 01:40 Follow up: Response: No adverse reaction; IV Status: Completed infusion ea 07/27 23:47 Drug: fentaNYL (PF) 50 mcg Route: IVP; Site: left upper arm; ea 07/28 00:15 Follow up: Response: No adverse reaction; Pain is unchanged, physician notified ea 07/27 23:55 Drug: Zofran 4 mg Route: IVP; Site: left upper arm; ak1 07/28 00:15 Follow up: Response: No adverse reaction; Nausea is decreased ea 00:21 Drug: Dilaudid 1 mg Route: IVP; Site: left upper arm; ea 00:44 Follow up: Response: No adverse reaction; Pain is decreased ea 00:37 Drug: Phenergan 25 mg Route: IVP; Site: left antecubital; ea 00:44 Follow up: Response: No adverse reaction; Nausea is decreased ea 02:05 Drug: Dilaudid 1 mg Route: IVP; Site: right antecubital; ea 02:24 Follow up: Response: No adverse reaction; Pain is decreased ea 02:21 Drug: hydrALAZINE 20 mg Route: IV; Rate: calculated rate; Site: left upper arm; ea 02:32 Follow up: IV Status: Completed infusion ak1 02:40 Follow up: Response: No adverse reaction; Blood pressure is lowered; IV Status: ea Completed infusion Disposition: 07/28/18 02:[address] [facility]. Diagnosis is Gastrointestinal hemorrhage, unspecified. - Reason for transfer: Higher level of care. - Accepting physician is jaron goodman. - Condition is Stable. - Problem is new. - Symptoms have improved. Critical care time excluding procedures: 02:13 Critical care time: Bedside Care: 10 minutes, Consultation: 10 minutes, Family gs Intervention: 10 minutes. Total time: 30 minutes Signatures: Dispatcher [employer] EDNE Adrianna Seymour RN RN ak1 Shira Rodriguez RN RN ea Starr, Gregory, MD MD gs Peltier, Brian, RN RN bp Corrections: (The following items were deleted from the chart) 07/27 23:20 23:19 ABG Arterial Blood Gas ordered. [facility] 07/28 02:58 02:12 07/28/2018 02:[address] [facility]. Diagnosis is ea Gastrointestinal hemorrhage, unspecified. Reason for transfer: Higher level of care. Accepting physician is jaron goodman. Condition is Stable. Problem is new. Symptoms have improved. gs
--- NOTE | 2018-07-28 02:14 | ER ---
Nurse's Notes [facility] Name: Babs Younger Age: 48 yrs Sex: Female : 1970 Arrival Date: 07/27/2018 Time: 18:48 Bed 7 Private MD: Diagnosis: Gastrointestinal hemorrhage, unspecified Presentation: 07/27 18:48 Presenting complaint: EMS states: BLOOD IN COLOSTOMY, ABD PAIN. Transition of care: bp patient was not received from another setting of care. Onset of symptoms was July 26, 2018. Risk Assessment: Do you want to hurt yourself or someone else? Patient reports no desire to harm self or others. Initial Sepsis Screen: Does the patient meet any 2 criteria? No. Patient's initial sepsis screen is negative. Does the patient have a suspected source of infection? No. Patient's initial sepsis screen is negative. Care prior to arrival: Glucose check: 96. 18:48 Method Of Arrival: EMS: [facility] bp 18:48 Acuity: ELVA 3 bp Triage Assessment: 18:52 General: Appears in no apparent distress. uncomfortable, obese, Behavior is bp cooperative, appropriate for age, anxious. Pain: Complains of pain in abdomen. GI: Abdomen is obese. 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: 18:52 LMP N/A - Irregular menses bp Historical: - Allergies: 18:52 Morphine; bp - Home Meds: 18:52 Ambien 5 mg Oral tab 1 tab qhs prn [Active]; amlodipine 10 mg tab 1 tab once daily bp [Active]; CellCept 500 mg Oral tab 2 tabs 2 times per day [Active]; clonidine HCl 0.3 mg Oral tab 1 tab three times a day [Active]; doxazosin 4 mg Oral tab 1 tab once daily [Active]; furosemide 80 mg Oral tab 1 tab 2 times per day [Active]; gabapentin 400 mg Oral cap 1 cap as needed [Active]; Humulin 70/30 100 unit/mL (70-30) Sub-Q susp 60 units in am and 40 units at night [Active]; hydralazine 50 mg Oral tab 1 tab three times a day [Active]; metoprolol tartrate 100 mg Oral tab 1 tab 2 times per day [Active]; [place] 10-325 mg Oral tab 1 tab QID PRN [Active]; Plaquenil 200 mg Oral tab 1 tab once daily [Active]; - PMHx: 18:52 Diabetes - IDDM; Hypertension; Lupus; Renal Disease; bp - PSHx: 20:37 Hysterectomy; Colostomy; ak1 - Immunization history:: Adult Immunizations up to date. - Social history:: Smoking status: Patient/guardian denies using tobacco. - Ebola Screening: : Patient negative for fever greater than or equal to 101.5 degrees Fahrenheit, and additional compatible Ebola Virus Disease symptoms Patient denies exposure to infectious person Patient denies travel to an Ebola-affected area in the 21 days before illness onset No symptoms or risks identified at this time. Screenin:26 Abuse screen: Denies threats or abuse. Denies injuries from another. Nutritional ak1 screening: No deficits noted. Tuberculosis screening: No symptoms or risk factors identified. Fall Risk None identified. Assessment: 19:09 General: Appears uncomfortable, Behavior is calm, cooperative, appropriate for age. ea Pain: Complains of pain in abdomen. Neuro: Level of Consciousness is awake, alert, obeys commands, Oriented to person, place, time, situation. Cardiovascular: Patient's skin is warm and dry. Respiratory: Airway is patent Respiratory effort is even, unlabored, Respiratory pattern is regular, symmetrical. GI: Bowel sounds present X 4 quads. Abd is soft X 4 quads Abdomen is tender to palpation X 4 quads. Derm: Skin is normal. 20:15 Reassessment: Unable to obtain IV access, provider notified, lab notified for blood ea draw. 20:30 Reassessment: arcade game technician reported pt was sitting on the floor. Pt noted to be ea sitting upright on the floor, when asked what happened pt stated "I fell". When asked why she did not use the call light she stated " I don't know". Call light noted by bedside, side rails up and bed in low position. Pt was assisted to wheelchair, tolerated well. Provider and charge nurse notified. 20:30 Reassessment: Pt assessed, ROM intact. Denies LOC. ea 21:23 Reassessment: verbal orders to change IV meds to IM and add PO zofran per ER provider. ak1 unable to obtain a line on pt at this time. 21:37 Reassessment: pt vomited, sheets changed, floor has been mopped and vital chords ak1 cleaned. will continue to monitor. pt playing on her phone at this time. 21:46 Reassessment: pt vomiting. provider notified, no new orders given. pt changing her ak1 colostomy using her own supplies. . 22:25 Reassessment: Patient and/or family updated on plan of care and expected duration. Pain ea level reassessed. pt complaining of pain, provider currently in a code. 23:35 Reassessment: Patient and/or family updated on plan of care and expected duration. Pain ea level reassessed. Charge nurse at bedside placing midline. 07/28 00:08 Reassessment: Patient appears in no apparent distress at this time. No changes from ak1 previously documented assessment. Patient and/or family updated on plan of care and expected duration. Pain level reassessed. pt informed of possible transfer. [facility] has no beds, trying to transfer to [facility] will update pt with location and transfer status. 01:35 Reassessment: pt c/o increased abd pain. provider notified with no new orders given at [facility] this time. 02:21 Reassessment: report called to [facility] nurse for bed [address] [facility] tower 15. ak1 02:55 Reassessment: Patient and/or family updated on plan of care and expected duration. Pain ea level reassessed. [facility] at facility for transfer. Vital Signs: 07/27 18:52 BP 200 / 108; Pulse 98; Resp 16; Temp 98.4; Pulse Ox 99% ; Weight 86.18 kg; Height 5 bp ft. 2 in. (157.48 cm); 20:58 BP 187 / 101; Pulse 86; Resp 18; Pulse Ox 99% ; ea 21:00 BP 226 / 104; Pulse 83; Resp 18; Pulse Ox 98% ; ea 23:57 BP 240 / 90; Pulse 81; Resp 20; Temp 97.9; Pulse Ox 100% on R/A; ag4 07/28 01:44 BP 229 / 119; Pulse 75; Resp 20; Pulse Ox 100% on R/A; ak1 02:55 BP 200 / 100; Pulse 80; Resp 18; Temp 98; Pulse Ox 99% on R/A; ea 07/27 18:52 Body Mass Index 34.75 (86.18 kg, 157.48 cm) bp ED Course: 07/27 18:48 Patient arrived in ED. bp 18:49 Triage completed. bp 18:52 Arm band placed on. bp 19:02 Kilo Olea MD is Attending Physician. gs 19:09 Shira Rodriguez, LUIS is Primary Nurse. ea 19:09 Patient has correct armband on for positive identification. Bed in low position. Call ea light in reach. Side rails up X2. 19:32 Radiology exam delayed due to test not completed at this time. vm2 20:02 Missed attempt(s): 22 gauge in left antecubital area. 24 gauge in right hand. Bleeding ds4 controlled, band aid applied, catheter tip intact. 20:05 Missed attempt(s): 24 gauge in left forearm. Bleeding controlled, band aid applied, ea catheter tip intact. 20:07 Radiology exam delayed due to test not completed at this time. vm2 20:10 Missed attempt(s): 22 gauge in right antecubital area. ea 20:[address] vm2 20:54 CT Stone Protocol In Process Unspecified. EDMS 20:55 CT completed. Patient tolerated procedure well. Patient moved back from CT. nj 23:40 Inserted 18 gauge 10 cm midline to left upper arm brachial vein on first attempt. Line fc with good blood return and flushes well. 07/28 02:20 Patient transferred, IV remains in place. ak1 02:57 No provider procedures requiring assistance completed. ea Administered Medications: 07/27 21:30 Drug: fentaNYL (PF) 50 mcg {Note: Medication adminsitered IM to right deltoid.} Route: ea IVP; Site: Other; 22:00 Follow up: Response: No adverse reaction; Pain is decreased ea : Drug: Zofran 4 mg Route: PO; ea 22:00 Follow up: Response: No adverse reaction ea 23:47 Drug: NS 0.9% 1000 ml Route: IV; Rate: 1 bolus; Site: left upper arm; ea 07/28 01:40 Follow up: Response: No adverse reaction; IV Status: Completed infusion ea 07/27 23:47 Drug: fentaNYL (PF) 50 mcg Route: IVP; Site: left upper arm; ea 07/28 00:15 Follow up: Response: No adverse reaction; Pain is unchanged, physician notified ea 07/27 23:55 Drug: Zofran 4 mg Route: IVP; Site: left upper arm; ak1 07/28 00:15 Follow up: Response: No adverse reaction; Nausea is decreased ea 00:21 Drug: Dilaudid 1 mg Route: IVP; Site: left upper arm; ea 00:44 Follow up: Response: No adverse reaction; Pain is decreased ea 00:37 Drug: Phenergan 25 mg Route: IVP; Site: left antecubital; ea 00:44 Follow up: Response: No adverse reaction; Nausea is decreased ea 02:05 Drug: Dilaudid 1 mg Route: IVP; Site: right antecubital; ea 02:24 Follow up: Response: No adverse reaction; Pain is decreased ea 02:21 Drug: hydrALAZINE 20 mg Route: IV; Rate: calculated rate; Site: left upper arm; ea 02:32 Follow up: IV Status: Completed infusion ak1 02:40 Follow up: Response: No adverse reaction; Blood pressure is lowered; IV Status: ea Completed infusion Outcome: 02:12 ER care complete, transfer ordered by . 02:57 Transferred by ground EMS to [facility], Transfer form completed. ea 02:57 Condition: stable 02:57 Instructed on the need for transfer. 02:58 Patient left the ED. ea Signatures: Dispatcher [employer] EDMS Lorena Kulkarni RN Callum Ignacio ds4 Adrianna Seymour RN RN ak1 Joshua Santoro Victoria 2 Shira Rodriguez RN RN ea Starr, Gregory, MD MD gs Peltier, Brian, RN RN bp Guzman, Adan ag4
[2018-07-28 02:18] LABS: Protime INR 1.18
[2018-07-28] MEDS ORDERED: HYDRALAZINE HCL 20 MG/ML VIAL ONE (02:18)
[2018-07-28 03:25] VITALS: BP 200/100; TEMP 98; O2SAT 99
== END 2018-07-28 02:58 | disposition short-term general hospital (02) ==
LOC: ER 18:44
DX: K92.2 Gastrointestinal hemorrhage, unspecified (principal); N28.9 Disorder of kidney and ureter, unspecified; I10 Essential (primary) hypertension; E11.9 Type 2 diabetes mellitus without complications; Z79.4 Long term (current) use of insulin; Z88.5 Allergy status to narcotic agent
CPT/HCPCS: 36415; 74176; 76377; 80048; 80076; 82805; 83690; 85025; 85610; 99285; J0360; J1170 ×2; J2405; J2550 ×2; J3010; J7030

== ENCOUNTER 2019-01-16 18:11 | Emergency (ER) | payer OTHER ==
--- OUTSIDE RECORDS SUMMARY | 2019-01-16 18:14 | XMS REPORT | Clinical Summary ---
:1970 Author Organization [facility] [employer] Address [address] [place] [address] Care Team Providers Name Role Phone Monico [...] Orders Only General Surgery Nataly Bansal MA after 01/15/2018 Social History Tobacco Use Types Packs/Day Years Used Date Never Smoker Alcohol Use Drinks/Week oz/Week Comments No Sex Assigned at Date Recorded Not on file Job Start Date Occupation Industry Not on file Not on file Not on file Travel History Travel Start Travel End No recent travel history available. Last Filed Vital Signs Not on file Plan of Treatment Health Maintenance Due Date Last Done Comments INFLUENZA VACCINE 03/29/2019 Results Not on fileafter 01/15/2018 Insurance Payer Benefit Plan / Subscriber ID Effective Dates Phone Address Type Group [facility] MEDICARE [facility] DUAL COMPLETE xxxxxxxxx 2016-Present [facility] MEDICAID MEDICAID xxxxxxxxx 2014-Present Medicaid Advance Directives Patient has advance care planning documents on file. For more information, please contact:Lionel Peres[address] [place] [address]
--- OUTSIDE RECORDS SUMMARY | 2019-01-16 18:15 | XMS REPORT | Clinical Summary ---
:1970 Author Organization [facility] Address [address] [place] [address] Care Team Providers Name Role Phone Pcp, No Primary Care Provider Unavailable Allergies Active Allergy Reactions Severity Noted Date Comments Shellfish Containing Products 07/28/2018 Medications Medication Sig Dispensed Refills Start Date End Date Status amLODIPine (NORVASC) 10 MG Take 10 mg by 0 08/08/2015 Active tablet mouth. cloNIDine HCl (CATAPRES) Take 0.3 mg by 0 07/09/2015 Active 0.3 MG tablet mouth 3 (three) times daily . doxazosin (CARDURA) 2 MG Take 4 mg by 0 Active tablet mouth. furosemide (LASIX) 40 MG Take 80 mg by 0 07/09/2015 Active tablet mouth . hydrALAZINE (APRESOLINE) Take 50 mg by 0 07/09/2015 Active 50 MG tablet mouth 3 (three) times daily. metoprolol (LOPRESSOR) 100 Take 100 mg by 0 07/09/2015 Active MG tablet mouth 2 (two) times daily. mycophenolate (CELLCEPT) Take 1,000 mg 0 12/04/2015 Active 500 mg tablet by mouth 2 (two) times daily. gabapentin (NEURONTIN) 100 TK 1 C PO HS 1 06/07/2018 Active MG capsule PRN HYDROcodone-acetaminophen TK 1 T PO Q 8 0 07/13/2018 Active (NORCO 10-325) 10-325 mg H PRN per tablet hydroxychloroquine TK 1 T PO D 0 06/07/2018 Active (PLAQUENIL) 200 mg tablet HUMULIN 70/30 U-100 INJECT 60 0 07/07/2018 Active KWIKPEN 100 unit/mL UNITS SQ QAM (70-30) InPn insulin pen AND 40 UNITS QPM zolpidem (AMBIEN) 10 mg Take 10 mg by 1 07/23/2018 Active tablet mouth nightly. ondansetron (ZOFRAN-ODT) 8 DIS 1 T ON THE 0 07/21/2018 Active MG disintegrating tablet TONGUE BID pantoprazole (PROTONIX) 40 Take 40 mg by 0 Active MG tablet mouth daily. Active Problems Problem Noted Date Abdominal pain 07/28/2018 Systemic lupus erythematosus 07/28/2018 Essential hypertension 07/28/2018 Type 2 diabetes mellitus with kidney complication, with long-term current use of insulin Colostomy complication 07/28/2018 bright red blood in colostomy 07/28/2018 HTN (hypertension), malignant 07/28/2018 Lupus nephritis 07/28/2018 DAE (acute kidney injury) 07/28/2018 Hypernatremia 07/28/2018 Hypokalemia 07/28/2018 Encounters Date Type Specialty Care Team Description 07/28/2018 Hospital Cardiac Intensive Care Brann, Generalized abdominal pain (Primary Dx); - Encounter Christopher Colostomy complication (HCC); 08/01/2018 MD Igor Essential hypertension; Janis Denis Gastrointestinal hemorrhage with melena; Systemic lupus erythematosus, unspecified SLE type, unspecified organ involvement status (HCC); Type 2 diabetes mellitus with stage 4 chronic kidney disease, with long -term current use of insulin (HCC); Acute metabolic encephalopathy; Hypertensive emergency; Severe sepsis (HCC); HTN (hypertension), malignant; DAE (acute kidney injury) (HCC); Hypertensive urgency; Abdominal pain, unspecified abdominal location; Hematochezia; Lupus nephritis (HCC); Slow transit constipation 07/28/2018 Orders Only General Internal Medicine 07/28/2018 Telephone Gastroenterology Kesha Castro Abdominal Pain MD Esther after 01/15/2018 Family History Medical History Relation Name Comments Kidney disease Father Cancer Mother Hypertension Mother Diabetes Sister Relation Name Status Comments Father Mother Sister Social History Tobacco Use Types Packs/Day Years Used Date Never Smoker Alcohol Use Drinks/Week oz/Week Comments No Alcohol Habits Answer Date Recorded How often do you have a drink containing alcohol? Never 07/28/2018 How many drinks containing alcohol do you have on a typical Not asked day when you are drinking? How often do you have six or more drinks on one occasion? Not asked Sex Assigned at Date Recorded Not on file Job Start Date Occupation Industry Not on file Not on file Not on file Travel History Travel Start Travel End No recent travel history available. Last Filed Vital Signs Vital Sign Reading Time Taken Blood Pressure 184/90 08/01/2018 7:20 [employer] Pulse 93 08/01/2018 7:20 [employer] Temperature 37.1 C (98.7 F) 08/01/2018 4:05 [employer] Respiratory Rate 28 08/01/2018 7:20 AM [employer] Oxygen Saturation 100% 08/01/2018 7:20 AM [employer] Inhaled Oxygen Concentration - - Weight 81.6 kg (180 lb) 07/31/2018 5:05 AM [employer] Height 157.5 cm (5' 2") 07/31/2018 5:05 AM [employer] Body Mass Index 32.92 07/31/2018 5:05 AM [employer] Plan of Treatment Not on file Procedures Procedure Name Priority Date/Time Associated Comments Diagnosis RHYTHM STRIP - SCAN 08/05/2018 2:10 PM [employer] CALCIUM, IONIZED Routine 08/01/2018 4:32 Results for this [employer] procedure are in the results section. POCT-GLUCOSE METER Routine 07/31/2018 9:19 Results for this PM [employer] procedure are in the results section. POCT-GLUCOSE METER Routine 07/31/2018 5:26 Results for this [employer] procedure are in the results section. POCT-GLUCOSE METER Routine 07/31/2018 11:26 Results for this [employer] procedure are in the results section. POCT-GLUCOSE METER Routine 07/31/2018 7:24 Results for this [employer] procedure are in the results section. MAGNESIUM Routine 07/31/2018 6:14 Results for this [employer] procedure are in the results section. COMPREHENSIVE Routine 07/31/2018 6:14 Results for this METABOLIC PANEL [employer] procedure are in the results section. PHOSPHORUS Routine 07/31/2018 6:14 Results for this [employer] procedure are in the results section. HEPATIC FUNCTION PANEL Routine 07/31/2018 6:14 Results for this [employer] procedure are in the results section. CBC W/PLT COUNT & AUTO Routine 07/31/2018 4:51 Results for this DIFFERENTIAL [employer] procedure are in the results section. CALCIUM, IONIZED Routine 07/31/2018 4:51 Results for this [employer] procedure are in the results section. CBC W/PLT COUNT & AUTO Routine 07/31/2018 4:51 Results for this DIFFERENTIAL [employer] procedure are in the results section. POCT-GLUCOSE METER Routine 07/30/2018 10:45 Results for this [employer] procedure are in the results section. POCT-GLUCOSE METER Routine 07/30/2018 5:07 Results for this [employer] procedure are in the results section. HEMOGLOBIN AND Routine 07/30/2018 4:17 Results for this HEMATOCRIT PM [employer] procedure are in the results section. POCT-GLUCOSE METER Routine 07/30/2018 2:55 Results for this [employer] procedure are in the results section. POCT-GLUCOSE METER Routine 07/30/2018 2:23 Results for this [employer] procedure are in the results section. POCT-GLUCOSE METER Routine 07/30/2018 12:32 Results for this [employer] procedure are in the results section. POCT-GLUCOSE METER Routine 07/30/2018 11:49 Results for this [employer] procedure are in the results section. VANCOMYCIN LEVEL, Timed 07/30/2018 10:35 Results for this TROUGH [employer] procedure are in the results section. XR ABDOMEN 1 VIEW STAT 07/30/2018 8:40 Results for this [employer] procedure are in the results section. POCT-GLUCOSE METER Routine 07/30/2018 7:45 Results for this [employer] procedure are in the results section. CBC W/PLT COUNT & AUTO Routine 07/30/2018 5:32 Results for this DIFFERENTIAL [employer] procedure are in the results section. COMPREHENSIVE Routine 07/30/2018 5:32 Results for this METABOLIC PANEL [employer] procedure are in the results section. MAGNESIUM Routine 07/30/2018 5:32 Results for this [employer] procedure are in the results section. CALCIUM, IONIZED Routine 07/30/2018 5:32 Results for this [employer] procedure are in the results section. PHOSPHORUS Routine 07/30/2018 5:32 Results for this [employer] procedure are in the results section. CBC W/PLT COUNT & AUTO Routine 07/30/2018 5:32 Results for this DIFFERENTIAL [employer] procedure are in the results section. HEPATIC FUNCTION PANEL Routine 07/30/2018 5:32 Results for this [employer] procedure are in the results section. POCT-GLUCOSE METER Routine 07/29/2018 9:37 Results for this [employer] procedure are in the results section. POCT-GLUCOSE METER Routine 07/29/2018 6:16 Results for this [employer] procedure are in the results section. VENOUS DOPPLER ARM, STAT 07/29/2018 1:15 Results for this RIGHT PM [employer] procedure are in the results section. POCT-GLUCOSE METER Routine 07/29/2018 12:25 Results for this [employer] procedure are in the results section. T4, FREE Routine 07/29/2018 10:35 Results for this [employer] procedure are in the results section. TSH/FREE T4 IF Routine 07/29/2018 10:35 Results for this INDICATED [employer] procedure are in the results section. TSH Routine 07/29/2018 10:35 Results for this [employer] procedure are in the results section. LACTIC ACID, VENOUS Routine 07/29/2018 10:35 Results for this [employer] procedure are in the results section. CBC W/PLT COUNT & AUTO Routine 07/29/2018 5:26 Results for this DIFFERENTIAL [employer] procedure are in the results section. TROPONIN I Routine 07/29/2018 5:26 Results for this [employer] procedure are in the results section. BASIC METABOLIC PANEL Routine 07/29/2018 5:26 Results for this (7) [employer] procedure are in the results section. LACTIC ACID, VENOUS Routine 07/29/2018 5:26 Results for this [employer] procedure are in the results section. PHOSPHORUS Routine 07/29/2018 5:26 Results for this [employer] procedure are in the results section. MAGNESIUM Routine 07/29/2018 5:26 Results for this [employer] procedure are in the results section. CALCIUM, IONIZED Routine 07/29/2018 5:26 Results for this [employer] procedure are in the results section. CBC W/PLT COUNT & AUTO Routine 07/29/2018 5:26 Results for this DIFFERENTIAL [employer] procedure are in the results section. HEPATIC FUNCTION PANEL Routine 07/29/2018 5:26 Results for this [employer] procedure are in the results section. VANCOMYCIN LEVEL, Routine 07/29/2018 5:26 Results for this RANDOM AM [employer] procedure are in the results section. CT BRAIN/STROKE TEST STAT 07/28/2018 7:58 Results for this DESIGN PM [employer] procedure are in the results section. CBC W/PLT COUNT & AUTO Routine 07/28/2018 7:31 Results for this DIFFERENTIAL PM [employer] procedure are in the results section. CBC W/PLT COUNT & AUTO Routine 07/28/2018 7:31 Results for this DIFFERENTIAL [employer] procedure are in the results section. APTT STAT 07/28/2018 7:31 Results for this PM [employer] procedure are in the results section. PROTHROMBIN TIME/INR STAT 07/28/2018 7:31 Results for this PM [employer] procedure are in the results section. LACTIC ACID, VENOUS Routine 07/28/2018 7:31 Results for this PM [employer] procedure are in the results section. BASIC METABOLIC PANEL Routine 07/28/2018 7:31 Results for this (7) [employer] procedure are in the results section. HEMOGLOBIN AND Routine 07/28/2018 7:31 Results for this HEMATOCRIT PM [employer] procedure are in the results section. POCT-GLUCOSE METER Routine 07/28/2018 6:55 Results for this PM [employer] procedure are in the results section. ECG 12-LEAD STAT 07/28/2018 6:49 Results for this PM [employer] procedure are in the results section. TROPONIN I Routine 07/28/2018 6:39 Results for this PM [employer] procedure are in the results section. EOSINOPHIL SMEAR, Routine 07/28/2018 5:33 Results for this URINE [employer] procedure are in the results section. CREATININE, RANDOM Routine 07/28/2018 5:33 Results for this URINE [employer] procedure are in the results section. PROTEIN, RANDOM URINE Routine 07/28/2018 5:33 Results for this PM [employer] procedure are in the results section. SODIUM, RANDOM URINE Routine 07/28/2018 5:33 Results for this PM [employer] procedure are in the results section. URINALYSIS W/ Routine 07/28/2018 5:33 Results for this MICROSCOPIC PM [employer] procedure are in the results section. POCT-GLUCOSE METER Routine 07/28/2018 5:18 Results for this PM [employer] procedure are in the results section. BASIC METABOLIC PANEL JIMMY 07/28/2018 4:04 Results for this (7) [employer] procedure are in the results section. LACTIC ACID, VENOUS STAT 07/28/2018 2:19 Results for this PM [employer] procedure are in the results section. CARDIOLIPIN Routine 07/28/2018 11:22 Results for this ANTIBODIES, IGG AND AM [employer] procedure are in IGM the results section. POCT-GLUCOSE METER Routine 07/28/2018 11:16 Results for this AM [employer] procedure are in the results section. CBC W/PLT COUNT & AUTO Routine 07/28/2018 11:14 Results for this DIFFERENTIAL [employer] procedure are in the results section. HEXAGONAL PHOSPHOLIPID AP Routine 07/28/2018 11:14 Results for this [employer] procedure are in the results section. THROMBIN TIME Routine 07/28/2018 11:14 Results for this [employer] procedure are in the results section. EQUAL MIX, NORMAL Routine 07/28/2018 11:14 Results for this PLASMA [employer] procedure are in the results section. HCG, QUANTITATIVE, STAT 07/28/2018 11:14 Results for this [employer] procedure are in the results section. APTT STAT 07/28/2018 11:14 Results for this AM [employer] procedure are in the results section. CBC W/PLT COUNT & AUTO Routine 07/28/2018 11:14 Results for this DIFFERENTIAL [employer] procedure are in the results section. COMPREHENSIVE Routine 07/28/2018 11:14 Results for this METABOLIC PANEL [employer] procedure are in the results section. C-REACTIVE PROTEIN Routine 07/28/2018 11:14 Results for this AM [employer] procedure are in the results section. LUPUS ANTICOAGULANT AP Routine 07/28/2018 11:14 Results for this SCREEN WITH REFLEX TO AM [employer] procedure are in CONFIRMATORY the results section. BETA-2 GLYCOPROTEIN Routine 07/28/2018 11:14 Results for this ANTIBODIES AM [employer] procedure are in the results section. PROCALCITONIN STAT 07/28/2018 11:14 Results for this [employer] procedure are in the results section. LACTIC ACID, VENOUS STAT 07/28/2018 11:14 Results for this [employer] procedure are in the results section. AMYLASE Routine 07/28/2018 11:14 Results for this [employer] procedure are in the results section. LIPASE Routine 07/28/2018 11:14 Results for this [employer] procedure are in the results section. TROPONIN I Routine 07/28/2018 11:14 Results for this AM [employer] procedure are in the results section. PROTHROMBIN TIME/INR Routine 07/28/2018 8:08 Results for this AM [employer] procedure are in the results section. ECG 12-LEAD STAT 07/28/2018 8:01 Results for this [employer] procedure are in the results section. XR ABDOMEN 1 VIEW STAT 07/28/2018 7:49 Results for this AM [employer] procedure are in the results section. XR CHEST 1 VIEW STAT 07/28/2018 7:49 Results for this PORTABLE/BEDSIDE AM [employer] procedure are in the results section. POCT-HEMOGLOBIN Routine 07/28/2018 7:48 Results for this [employer] procedure are in the results section. POCT-HEMATOCRIT Routine 07/28/2018 7:48 Results for this [employer] procedure are in the results section. POCT-CALCIUM IONIZED Routine 07/28/2018 7:48 Results for this [employer] procedure are in the results section. POCT-GLUCOSE Routine 07/28/2018 7:48 Results for this [employer] procedure are in the results section. POCT-POTASSIUM Routine 07/28/2018 7:48 Results for this [employer] procedure are in the results section. POCT-SODIUM Routine 07/28/2018 7:48 Results for this [employer] procedure are in the results section. POCT-BLOOD GASES, Routine 07/28/2018 7:48 Results for this ARTERIAL [employer] procedure are in the results section. BLOOD CULTURE Routine 07/28/2018 7:45 Results for this [employer] procedure are in the results section. BLOOD CULTURE Routine 07/28/2018 7:36 Results for this [employer] procedure are in the results section. POCT-LACTIC ACID, Routine 07/28/2018 7:34 Results for this VENOUS [employer] procedure are in the results section. CBC W/PLT COUNT & AUTO Routine 07/28/2018 7:30 Results for this DIFFERENTIAL [employer] procedure are in the results section. COMPLEMENT COMPONENT Routine 07/28/2018 7:30 Results for this C4 [employer] procedure are in the results section. COMPLEMENT COMPONENT Routine 07/28/2018 7:30 Results for this C3 [employer] procedure are in the results section. DOUBLE-STRANDED DNA Routine 07/28/2018 7:30 Results for this (DSDNA) ANTIBODY [employer] procedure are in the results section. LIPASE Routine 07/28/2018 7:30 Results for this [employer] procedure are in the results section. HEPATIC FUNCTION PANEL Routine 07/28/2018 7:30 Results for this [employer] procedure are in the results section. BASIC METABOLIC PANEL Routine 07/28/2018 7:30 Results for this (7) [employer] procedure are in the results section. CBC W/PLT COUNT & AUTO Routine 07/28/2018 7:30 Results for this DIFFERENTIAL [employer] procedure are in the results section. HEMOGLOBIN A1C Routine 07/28/2018 7:30 Results for this [employer] procedure are in the results section. TROPONIN I Routine 07/28/2018 7:30 Results for this AM [employer] procedure are in the results section. after 01/15/2018 Results RHYTHM STRIP - SCAN (08/05/2018 2:10 PM [employer]) Narrative Performed At Calcium, Ionized (08/01/2018 4:32 AM [employer])Only the most recent of4 resultswithin the time period is included. Calcium, Ion 1.01 (L) 1.12 - 1.27 mmol/L [facility] pH, Blood 7.45 [facility] Specimen Blood Performing Organization Address City/[facility] Phone Number [address] [address] [place] POC-Glucose meter (07/31/2018 9:19 PM [employer])Only the most recent of17 resultswithin the time period is included. POC-Glucose Meter 116 (H)Comment: TESTED AT 70 - 110 mg/dL [address] [address] Specimen Blood Performing Organization Address [facility] Cent[facility]otx Phone Number [address] [address] [phone] CENTER Phosphorus (07/31/2018 6:14 AM [employer])Only the most recent of3 resultswithin the time period is included. Phosphorus 2.4Comment: Specimen slightly 2.3 - 4.7 mg/dL [facility] Specimen Blood Performing Organization Address [facility] Phone Number [address] [address] CENTER Magnesium (07/31/2018 6:14 AM [employer])Only the most recent of3 resultswithin the time period is included. Magnesium 1.8Comment: Specimen slightly 1.6 - 2.6 mg/dL [facility] Specimen Blood Performing Organization Address [facility] Centercode Phone Number [address] [address] CENTER Hepatic function panel (07/31/2018 6:14 AM [employer])Only the most recent of4 resultswithin the time period is included. Protein, Total 7.5Comment: Specimen 6.0 - 8.3 gm/dL [facility] slightly hemolyzed [facility] Albumin 3.7Comment: Specimen 3.5 - 5.0 g/dL [facility] slightly hemolyzed [facility] Total Bilirubin 0.6Comment: Specimen 0.2 - 1.2 mg/dL [facility] slightly hemolyzed [facility] Bilirubin, Direct 0.3Comment: Specimen 0.1 - 0.5 mg/dL [facility] slightly hemolyzed [facility] Alkaline Phosphatase 118 40 - 150 U/L [facility] AST 30Comment: Specimen 5 - 34 U/L [facility] slightly hemolyzed [facility] ALT 12Comment: Specimen 6 - 55 U/L [facility] hemolyzed [facility] Specimen Blood Performing Organization Address City/State/Zipcode Phone Number [facility] [address] [place] [address] [phone] CENTER Comprehensive metabolic panel (07/31/2018 6:14 AM [employer])Only the most recent of3 resultswithin the time period is included. Protein, Total 7.5Comment: Specimen 6.0 - 8.3 gm/dL [facility] slightly hemolyzed [facility] Albumin 3.7Comment: Specimen 3.5 - 5.0 g/dL [facility] slightly hemolyzed [facility] Alkaline Phosphatase 118 40 - 150 U/L [facility] Total Bilirubin 0.6Comment: Specimen 0.2 - 1.2 mg/dL [facility] slightly hemolyzed [facility] Sodium 141 136 - 145 meq/L [facility] Potassium 3.3 (L)Comment: Specimen 3.5 - 5.1 meq/L [facility] slightly hemolyzed [facility] Chloride 112 (H) 98 - 107 meq/L [facility] CO2 20 (L) 22 - 29 meq/L [facility] BUN 17 7 - 21 mg/dL [facility] Creatinine 1.53 (H)Comment: 0.57 - 1.25 mg/dL [facility] Specimen [facility] hemolyzed Glucose 102 70 - 105 mg/dL [facility] Calcium 9.0 8.4 - 10.2 mg/dL [facility] AST 30Comment: Specimen 5 - 34 U/L [facility] slightly hemolyzed [facility] ALT 12Comment: Specimen 6 - 55 U/L [facility] slightly hemolyzed [facility] EGFR 44Comment: ESTIMATED GFR mL/min/1.[address] [facility] IS NOT ACC[address]ATE [facility] CREATININE CLEARANCE IN PREDICTING GLOMERULAR FILTRATION RATE. ESTIMATED GFR IS NOT APPLICABLE FOR DIALYSIS PATIENTS. Specimen Blood Performing Organization Address City/State/Zipcode Phone Number [facility] [address] [place] [address] CENTER CBC with platelet count + automated diff (07/31/2018 4:51 AM [employer])Only the most recent of6 resultswithin the time period is included. WBC 5.9 3.5 - 10.5 K/L [facility] RBC 3.45 (L) 3.93 - 5.22 M/L [facility] Hemoglobin 9.1 (L) 11.2 - 15.7 GM/DL [facility] Hematocrit 28.8 (L) 34.1 - 44.9 % [facility] MCV 83.5 79.4 - 94.8 fL [facility] MCH 26.4 25.6 - 32.2 pg [facility] MCHC 31.6 (L) 32.2 - 35.5 GM/DL [facility] RDW 14.4 11.7 - 14.4 % [facility] Platelets 220 150 - 450 K/CU MM [facility] MPV 9.7 9.4 - 12.3 fL [facility] nRBC 0 0 - 0 /100 WBC [facility] % Neutros 53 % [facility] % Lymphs 25 % [facility] % Monos 14 % [facility] % Eos 8 % [facility] % Baso 1 % [facility] # Neutros 3.09 1.56 - 6.13 K/L [facility] # Lymphs 1.46 1.18 - 3.74 K/L [facility] # Monos 0.79 (H) 0.24 - 0.36 K/L [facility] # Eos 0.46 (H) 0.04 - 0.36 K/L [facility] # Baso 0.05 0.01 - 0.08 K/L [facility] Immature Granulocytes-Relative 0 0 - 1 % [facility] Specimen Blood Performing Organization Address City/[facility]ercode Phone Number [address] [address] CENTER Hemoglobin and hematocrit (07/30/2018 4:17 PM MOTOR ELECTRICIAN)Only the most recent of2 resultswithin the time period is included. Hemoglobin 8.7 (L) 11.2 - 15.7 GM/DL [facility] Hematocrit 27.8 (L) 34.1 - 44.9 % [facility] Specimen Blood Performing Organization Address City/[facility] Centercode Phone Number [address] [address] CENTER Vancomycin level, trough (07/30/2018 10:35 AM MOTOR ELECTRICIAN) Vancomycin Tr 14.2 10.0 - 20.0 ug/mL [facility] Specimen Blood Performing Organization Address City/State/Zipcode Phone Number [facility] [address] [place] [address] CENTER XR abdomen / KUB 1 view (07/30/2018 8:40 AM MOTOR ELECTRICIAN)Only the most recent of2 resultswithin the time period is included. Specimen Narrative Performed At FINAL REPORT GE RIS AP abdomen, two images HISTORY: Abdominal pain COMPARISON: 07/28/2013 IMPRESSION: Grossly nonobstructive bowel gas pattern. Intact skeleton. Signed: Vikas Guillen MD Report Verified Date/Time:07/30/2018 09:41:59 Reading Location: [facility] [id number] Ortho Consult Reading Room Procedure Note Interface, External Ris In - 07/30/2018 9:44 AM MOTOR ELECTRICIAN FINAL REPORT AP abdomen, two images HISTORY: Abdominal pain COMPARISON: 07/28/2013 IMPRESSION: Grossly nonobstructive bowel gas pattern. Intact skeleton. Signed: Vikas Guillen MD Report Verified Date/Time: 07/30/2018 09:41:59 Reading Location: [facility] [id number] Ortho Consult Reading Room Performing Organization Address City/[facility] Centercode Phone Number [employer] Venous doppler arm, right (07/29/2018 1:15 PM MOTOR ELECTRICIAN) Ejection Fraction [facility] ECHO HEART[facility] Specimen Impressions Performed At Right Impression [facility] 1. There is no deep venous obstruction in the jugular, subclavian, axillary, brachial, radial or ulnar veins. 2. 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 3. The cephalic and basilic veins were not visualized. Left Impression NOT ORDERED. Conclusions Summary Venous duplex imaging and compression of the right upper extremity were performed. The veins were adequately visualized. The right deep venous system was patent and compressible with no evidence of thrombus. 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 The right cephalic and subclavian veins were not visualized. Signature Velocities are measured in cm/s ; Diameters are measured in cm Narrative Performed At LAB - Upper Extremities Veins [facility] Demographics Patient Name RANJEET FERRARO Date of Study 07/29/2018 [id number] Age 48 Visit Number [id number] GenderFemale Accession Number [id number] [facility] 1970 [facility] [id number] [facility]endflak[facility] SonographerGary Daniele Elizondo.Aspen Granger RVT, [place]CE[place] Physician Procedure Type of Study: Veins: Upper Extremities Veins, VENOUS DOPPLER ARM, RIGHT. Indications for Study:Arm swelling. Patient Status:STAT. Study Location:Portable. Technical Quality:Adequate visualization. Risk Factors History of Disease + + + + !Diagnosis !Date !Comments ! + + + + !Other ! !DM, HT ! 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 Interpreting Jillian Granger, BEBAT, ARCEES Physician Procedure Type of Study: Veins: Upper Extremities Veins, VENOUS DOPPLER ARM, RIGHT. Indications for Study:Arm swelling. Patient Status:STAT. Study Location:Portable. Technical Quality:Adequate visualization. Risk Factors History of Disease + + + + !Diagnosis !Date !Comments ! + + + + !Other ! !DM, HT ! + + + + Impressions Right Impression 1. There is no deep venous obstruction in the jugular, subclavian, axillary, brachial, radial or ulnar veins. 2. 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 3. The cephalic and basilic veins were not visualized. Left Impression NOT ORDERED. Conclusions Summary Venous duplex imaging and compression of the right upper extremity were performed. The veins were adequately visualized. The right deep venous system was patent and compressible with no evidence of thrombus. 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 The right cephalic and subclavian veins were not visualized. Signature Velocities are measured in cm/s ; Diameters are measured in cm Performing Organization Address [facility] Phone Number [facility] TSH/Free T4 If Indicated (07/29/2018 10:35 AM MOTOR ELECTRICIAN) TSH 0.25 (L) 0.35 - 4.94 uIU/mL [facility] Specimen Blood Performing Organization Address [facility] Cancer Centercotx Phone Number [address] [address] CENTER Lactic acid, venous, whole blood (07/29/2018 10:35 AM MOTOR ELECTRICIAN)Only the most recent of5 resultswithin the time period is included. Lactate, Venous 0.6Comment: Specimen 0.5 - 2.2 mmol/L [facility] slightly hemolyzed [facility] Specimen Blood Performing Organization Address [facility] Cancer Centercode Phone Number [address] [address] [phone] CENTER TSH (07/29/2018 10:35 AM MOTOR ELECTRICIAN) TSH 0.25 (L) 0.35 - 4.94 uIU/mL [facility] Specimen Blood Performing Organization Address [facility]/Un[facility] Cancer Centercode Phone Number [address] [address] [phone] CENTER T4, free (07/29/2018 10:35 AM MOTOR ELECTRICIAN) Free T4 1.25 0.70 - 1.48 ng/dL [facility] Specimen Blood Performing Organization Address City/[facility] Centercotx Phone Number [address] [address] [phone] [place] Troponin I (07/29/2018 5:26 AM MOTOR ELECTRICIAN)Only the most recent of4 resultswithin the time period is included. Troponin I 0.08 (H) 0.00 - 0.03 ng/mL [facility] Specimen Blood Performing Organization Address [facility] Centercotx Phone Number [address] [address] CENTER Vancomycin level, random (07/29/2018 5:26 AM MOTOR ELECTRICIAN) Vancomycin Rm 17.9 ug/mL [facility] Specimen Blood Narrative Performed At Reference Range: No Normals [facility] Performing Organization Address [facility] Phone Number [address] [address] [phone] [place] Basic Metabolic Panel (07/29/2018 5:26 AM MOTOR ELECTRICIAN)Only the most recent of4 resultswithin the time period is included. Sodium 143 136 - 145 meq/L [facility] Potassium 3.3 (L) 3.5 - 5.1 meq/L [facility] Chloride 116 (H) 98 - 107 meq/L [facility] CO2 16 (L) 22 - 29 meq/L [facility] BUN 39 (H) 7 - 21 mg/dL [facility] Creatinine 2.09 (H) 0.57 - 1.25 mg/dL [facility] Glucose 121 (H) 70 - 105 mg/dL [facility] Calcium 8.6 8.4 - 10.2 mg/dL [facility] EGFR 31Comment: ESTIMATED GFR IS mL/min/1.73 sq m [facility] NOT ACCURATE CREATININE [facility] CENTER CLEARANCE IN PREDICTING GLOMERULAR FILTRATION RATE. ESTIMATED GFR IS NOT APPLICABLE FOR DIALYSIS PATIENTS. Specimen Blood Performing Organization Address City/State/Zipcode Phone Number [facility] [address] [place] [address] [phone] brain/stroke (07/28/2018 7:58 PM MOTOR ELECTRICIAN) Specimen Narrative Performed At FINAL REPORT [place] CT head without contrast 07/28/2018 7:56 PM CLINICAL HISTORY: Acute neurological change stroke TECHNIQUE: Axial noncontrast CT images through the head were obtained. This examination was performed according to our departmental dose optimization program, which includes automated exposure control, adjustment of the mA and/or kV according to patient size, and/or use of iterated reconstruction technique. COMPARISON: None available FINDINGS: There is no hemorrhage, extra-axial collection, mass, hydrocephalus, or midline shift. There is advanced for age microvascular ischemia in the supratentorial white matter. There is generalized parenchymal volume loss. There is multifocal sinusitis. There are trace bilateral mastoid effusions. The skull is unremarkable. IMPRESSION: No intracranial hemorrhage or mass effect. Chronic appearing microvascular and involutional changes. Sinusitis. If concern for acute pathology persists, further evaluation with MRI is recommended. Findings were discussed with the stroke neurology housestaff on 07/28/2018 at 1955. Signed: Travis Fink MD Report Verified Date/Time:07/28/2018 19:59:01 Reading Location: [facility] Radiology Reading Room Procedure Note Interface, External Ris In - 07/28/2018 8:01 PM MOTOR ELECTRICIAN FINAL REPORT CT head without contrast 07/28/2018 7:56 PM CLINICAL HISTORY: Acute neurological change stroke TECHNIQUE: Axial noncontrast CT images through the head were obtained. This examination was performed according to our departmental dose optimization program, which includes automated exposure control, adjustment of the mA and/or kV according to patient size, and/or use of iterated reconstruction technique. COMPARISON: None available FINDINGS: There is no hemorrhage, extra-axial collection, mass, hydrocephalus, or midline shift. There is advanced for age microvascular ischemia in the supratentorial white matter. There is generalized parenchymal volume loss. There is multifocal sinusitis. There are trace bilateral mastoid effusions. The skull is unremarkable. IMPRESSION: No intracranial hemorrhage or mass effect. Chronic appearing microvascular and involutional changes. Sinusitis. If concern for acute pathology persists, further evaluation with MRI is recommended. Findings were discussed with the stroke neurology housestaff on 07/28/2018 at 1955. Signed: Travis Fink MD Report Verified Date/Time: 07/28/2018 19:59:01 Reading Location: [facility] Radiology Reading Room Performing Organization Address City/State/Zipcode Phone Number [facility] aPTT (07/28/2018 7:31 PM MOTOR ELECTRICIAN)Only the most recent of2 resultswithin the time period is included. PTT 33.1 22.5 - 36.0 seconds [facility] Specimen Blood Performing Organization Address City/[facility]/Zipcode Phone Number [address] [address] CENTER Prothrombin time/INR (07/28/2018 7:31 PM MOTOR ELECTRICIAN)Only the most recent of2 resultswithin the time period is included. Protime 15.6 (H) 11.7 - 14.7 seconds [facility] INR 1.2 <=5.9 [facility] Specimen Blood Narrative Performed At RECOMMENDED COUMADIN/WARFARIN INR THERAPY [facility] RANGES STANDARD DOSE: 2.0 - 3.0 Includes: PROPHYLAXIS for venous thrombosis, systemic embolization; TREATMENT for venous thrombosis and/or pulmonary embolus. HIGH RISK: Target INR is 2.5-3.5 for patients with mechanical heart valves. Performing Organization Address [facility] Centercode Phone Number [address] [address] CENTER ECG 12 lead (07/28/2018 6:49 PM MOTOR ELECTRICIAN)Only the most recent of2 resultswithin the time period is included. Specimen Narrative Performed At Ventricular Rate 125 BPM GE MUSE Atrial Rate 125 BPM P-R Interval 158 ms QRS Duration 92 ms Q-T Interval 316 ms QTC Calculation(Bazett) 456 ms P [place] 63 degrees R [place] 13 degrees T [place] 100 degrees Sinus tachycardia with Premature atrial complexes Possible Left atrial enlargement Left ventricular hypertrophy with repolarization abnormality Abnormal ECG When compared with ECG of 28-JUL-2018 08:01, QT has shortened Confirmed by MD MARZENA, ANDRES ([id number]) on 07/31/2018 7:46:18 AM Procedure Note Interface, External Ris In - 07/31/2018 7:46 AM MOTOR ELECTRICIAN Ventricular Rate 125 BPM Atrial Rate 125 BPM P-R Interval 158 ms QRS Duration 92 ms Q-T Interval 316 ms QTC Calculation(Bazett) 456 ms P [place] 63 degrees R [place] 13 degrees T [place] 100 degrees Sinus tachycardia with Premature atrial complexes Possible Left atrial enlargement Left ventricular hypertrophy with repolarization abnormality Abnormal ECG When compared with ECG of 28-JUL-2018 08:01, QT has shortened Confirmed by MD IVAN YOCHAI ([id number]) on 07/31/2018 7:46:18 AM Performing Organization Address [facility] Centercotx Phone Number [employer] Sodium, random urine (07/28/2018 5:33 PM MOTOR ELECTRICIAN) Sodium Urine 28 meq/L [facility] Specimen Urine Narrative Performed At Reference Range: No Normals [facility] Performing Organization Address [facility]/Zipcode Phone Number [facility] [address] [place] [address] [phone] CENTER Protein, random urine (07/28/2018 5:33 PM MOTOR ELECTRICIAN) Protein, Urine 325 (H) 0 - 14 mg/dL [facility] Specimen Urine Performing Organization Address City/State/Zipcode Phone Number [address] [address] [place] Creatinine, random urine (07/28/2018 5:33 PM MOTOR ELECTRICIAN) Creatinine, Ur 95.8 mg/dL [facility] Specimen Urine Narrative Performed At Reference Range: No Normals [facility] Performing Organization Address City/[facility]/Zipcode Phone Number [address] [address] [phone] [place] Urinalysis w/Microscopic (07/28/2018 5:33 PM MOTOR ELECTRICIAN) Color, UA Yellow [facility] Clarity, UA Clear [facility] Specific [place], UA 1.014 1.001 - 1.035 [facility] pH, UA 5.5 5.0 - 8.0 [facility] Protein, UA 300 mg/dL (A) Negative [facility] Glucose, UA Negative Negative [facility] Ketones, UA Negative Negative [facility] Bilirubin, UA Negative Negative [facility] Blood, UA Trace (A) Negative [facility] Nitrite, UA Negative Negative [facility] Leukocytes, UA Negative Negative [facility] Urobilinogen, UA 0.2 0.2 - 1.0 mg/dL [facility] RBC, UA 21 /HPF [facility] WBC, UA 1 /HPF [facility] Mucus Rare [facility] Squam Epithel, UA <1 /HPF [facility] Hyaline Casts, UA 1 /LPF [facility] Specimen Source Urine, Clean Catch [facility] Specimen Urine Performing Organization Address City/[facility] Centercode Phone Number [address] [address] [place] Eosinophil smear (07/28/2018 5:33 PM MOTOR ELECTRICIAN) Eosinophil Smear No EOS seen No EOS seen [facility] Specimen Urine Performing Organization Address [facility] Cancer Centercode Phone Number [address] [address] [place] Cardiolipin Antibodies, IgG and IgM (07/28/2018 11:22 AM MOTOR ELECTRICIAN) Anticardiolipin IgG <1.6 <20.0 GPL [facility] Anticardiolipin IgM 2.1 <20.0 MPL [facility] Specimen Blood Narrative Performed At Anticardiolipin IgG Result Interpretation: [facility] <20.0 GPL Normal >/=20.0 GPL Positive Anticardiolipin IgM Result Interpretation: <20.0 MPL Normal >/=20.0 MPL Positive Performing Organization Address [facility] Phone Number [address] [address] [phone] [place] Procalcitonin (07/28/2018 11:14 AM MOTOR ELECTRICIAN) Procalcitonin 0.09 (H) <0.05 ng/mL [facility] Specimen Blood Narrative Performed At SEPSIS RISK (ng/mL) [facility] Low:0.05-0.50 Intermediate: 0.51-2.00 High: >=2.01 Performing Organization Address [facility] Centercode Phone Number [address] [address] [place] Hexagonal Phospholipid (07/28/2018 11:14 AM MOTOR ELECTRICIAN) Hexagonal Phospholipid Positive [facility] Specimen Blood Performing Organization Address [facility] Centercode Phone Number [address] [address] CENTER Lupus Anticoagulant Screen with Reflex To Confirmatory (07/28/2018 11:14 AM MOTOR ELECTRICIAN) DRVV Screen Ratio 1.55 (H) <1.20 [facility] DRVV Confirm Ratio 0.93 [facility] DRVV Normalized Ratio 1.67 (H) <1.20 [facility] Interpretations Positive screen for Lupus [facility] Anticoagulant with [facility] hexagonal phospholipid confirmation. Suggest repeat testing in 12 weeks and when patient not receiving anticoagulant therapy. Protime 15.0 (H) 11.7 - 14.7 [facility] INR 1.2 <=5.9 [facility] PTT 36.1 (H) 22.5 - 36.0 [facility] PTT-LA 45.2 (H) 32.0 - 41.8 [facility] Pathologist: Cindy Chavira MD [facility] (electronic signature) [facility] Specimen Blood Performing Organization Address City/State/Zipcode Phone Number [address] 1:1 MIXING STUDY, NON-INCUBATED (07/28/2018 11:14 AM MOTOR ELECTRICIAN) Protime 15.0 (H) 11.7 - 14.7 seconds [facility] PTT 36.1 (H) 22.5 - 36.0 seconds [facility] PT 08/29 Mix 14.4 11.7 - 14.7 SECS [facility] PTT 08/29 Mix 35.5 22.5 - 36.0 SECS [facility] Specimen Blood Performing Organization Address City/State/[place] [address] [place] C-Reactive Protein (07/28/2018 11:14 AM MOTOR ELECTRICIAN) CRP 0.42 0.00 - 0.50 mg/dL [facility] Specimen Blood Performing Organization Address [facility]/Zipcode Phone Number [address] [address] CENTER Beta-2 glycoprotein antibodies (07/28/2018 11:14 AM MOTOR ELECTRICIAN) B2 Glcoprotein Ab Profile Refer to individual [facility] B2-Glycoprotein IgG, IgM INCORPORATED and IgA results. Specimen Blood Performing Organization Address City/[facility] Centercode Phone Number [place] [address] [facility] [address] [facility] Thrombin time (07/28/2018 11:14 AM MOTOR ELECTRICIAN) Thrombin Time 17.8 13.8 - 20.0 secs [facility] Specimen Blood Performing Organization Address [facility] Centercotx Phone Number [address] [address] [place] hCG, quantitative, (07/28/2018 11:14 AM MOTOR ELECTRICIAN) hCG Quant <1 0 - 10 mIU/mL [facility] Specimen Blood Narrative Performed At Non- Females: <10 mIU/mL [facility] Females: Gestation AgeReference Range(mIU/mL) 0.2-1 Week5-50 1-2 [id number] 2-3 Weeks 100-5,000 3-4 Weeks 500-10,000 4-5 Weeks 1,000-50,000 5-6 Weeks10,000-100,000 6-8 Weeks15,000-200,000 2-3 Months 10,000-100,000 Performing Organization Address [facility] Centercotx Phone Number [address] [address] CENTER Lipase (07/28/2018 11:14 AM MOTOR ELECTRICIAN)Only the most recent of2 resultswithin the time period is included. Lipase 31 8 - 78 U/L [facility] Specimen Blood Performing Organization Address City/[facility]/Zipcode Phone Number [address] [address] CENTER Amylase (07/28/2018 11:14 AM MOTOR ELECTRICIAN) Amylase 101 25 - 125 U/L [facility] Specimen Blood Performing Organization Address [facility]/[place] [address] CENTER XR chest 1 view portable / bedside (07/28/2018 7:49 AM MOTOR ELECTRICIAN) Specimen Narrative Performed At FINAL REPORT RIS RAD, CHEST, 1 VIEW, NON DEPT INDICATION: chest pain COMPARISON: Prior day's exam FINDINGS: Portable frontal view of the chest. IMPRESSION: Support Lines: None. Lungs and pleura: Clear lungs. No effusion. No pneumothorax. Heart and mediastinum: Unremarkable contours. Additional findings: None. Signed: JR Maya Robert MD Report Verified Date/Time:07/28/2018 08:10:51 Reading Location: [facility] Radiology Reading Room Procedure Note Interface, External Ris In - 07/28/2018 8:13 AM MOTOR ELECTRICIAN FINAL REPORT RAD, CHEST, 1 VIEW, NON DEPT INDICATION: chest pain COMPARISON: Prior day's exam FINDINGS: Portable frontal view of the chest. IMPRESSION: Support Lines: None. Lungs and pleura: Clear lungs. No effusion. No pneumothorax. Heart and mediastinum: Unremarkable contours. Additional findings: None. Signed: JR Maya Robert MD Report Verified Date/Time: 07/28/2018 08:10:51 Reading Location: [facility] Radiology Reading Room Performing Organization Address [facility]m Cancer Centercode Phone Number GE RIS POCT-HEMATOCRIT (07/28/2018 7:48 AM MOTOR ELECTRICIAN) POC-Hematocrit 38Comment: TESTED AT [facility] 36 - 45 % [address] Specimen Blood Performing Organization Address City/[facility]/Zipcode Phone Number [address] [address] [place] POCT-HEMOGLOBIN (07/28/2018 7:48 AM MOTOR ELECTRICIAN) POC-Hemoglobin 12.9Comment: TESTED AT 12.0 - 15.0 g/dL [address] [address]FT[place]BW AT [address] [address] Specimen Blood Performing Organization Address [facility] Centercotx Phone Number [address] [address] [place] POCT-GLUCOSE (07/28/2018 7:48 AM MOTOR ELECTRICIAN) POC-Glucose 176 (H)Comment: TESTED AT 70 - 110 mg/dL [address] [address] Specimen Blood Performing Organization Address [facility] Phone Number [address] [address] [phone] [place] POC-Sodium (07/28/2018 7:48 AM MOTOR ELECTRICIAN) POC-Sodium 146Comment: TESTED AT [facility] 135 - 148 meq/L [address] [address] Specimen Blood Performing Organization Address [facility] Phone Number [address] [address] [phone] [place] POC-Potassium (07/28/2018 7:48 AM MOTOR ELECTRICIAN) POC-Potassium 2.7 (L)Comment: TESTED AT 3.6 - 5.5 meq/L [address] [id number] Specimen Blood Performing Organization Address [facility] Phone Number [address] [address] C[facility] POC-Calcium ionized (07/28/2018 7:48 AM [employer]OR ELECT[employer]ICIAN) POC-Calcium Ionized 1.15Comment: TESTED AT 1.12 - 1.27 mmol/L [address] [place] [address] Specimen Blood Performing Organization Address City/[facility]/Zipcode Phone Number [address] [phone] [place] POC-Blood gases, arterial (07/28/2018 7:48 AM [employer] ELECTRICIAN) Temp. Celsius-POC 37.0 [facility] FIO2-POC Comment: TESTED AT [address] [address] pH, Arterial-POC 7.416 7.350 - 7.450 [facility] PCO2, Arterial-POC 29.8 (L) 35.0 - 45.0 mm Hg [facility] PO2, Arterial-POC 123.0 (H) 80.0 - 90.0 mm Hg [facility] SO2, Arterial-POC 99.0 (H) 96.0 - 97.0 % [facility] HCO3, Arterilal-POC 19.2 (L) 21.0 - 29.0 meq/L [facility] BE, Arterial-POC -5.0 (L) -2.0 - 3.0 meq/L [facility] Specimen Blood Performing Organization Address [facility] Phone Number [address] [phone] [place] Blood culture (07/28/2018 7:45 AM [employer] ELECTRICIAN)Only the most recent of2 resultswithin the time period is included. Result No growth in 5 days [facility] Specimen Blood Performing Organization Address City/[facility]/Zipcode Phone Number [address] [phone] [place] POC-Lactic Acid, Venous (07/28/2018 7:34 AM [employer]OR ELECTRICIAN) POC-Lactic Acid, Venous 3.3 (H)Comment: 0.9 - 1.7 mmol/L [facility] [place] [address] [place] [id number] Specimen Blood Performing Organization Address [facility] Cent[facility]ode Phone Number [address] [address] [phone] [place] Double-Stranded DNA (dsDNA) Antibody (07/28/2018 7:30 AM [employer] ELECT[employer]ICIAN) ds DNA Ab Negative [facility] Specimen Blood Performing Organization Address [facility] Phone Number [address] [address] [phone] [place] Complement Component C3 (07/28/2018 7:30 AM [employer]OR ELECT[employer]ICIAN) C3 Complement 125 82 - 193 mg/dL [facility] Specimen Blood Performing Organization Address [facility]ode Phone Number [address] [phone] [place] Complement Component C4 (07/28/2018 7:30 AM [employer]OR ELECTRICIAN) C4 Complement 25 15 - 57 mg/dL [facility] Specimen Blood Performing Organization Address [facility] Cent[facility]ode Phone Number [address] [address] [phone] CENTER Hemoglobin A1c (07/28/2018 7:30 AM MOTOR ELECTRICIAN) Hemoglobin A1C 5.6 4.3 - 6.1 % [facility] Specimen Blood Performing Organization Address City/[facility] Cent[facility]ode Phone Number [address] [address] [phone] CENTER after 01/15/2018 Insurance Payer Benefit Plan / Group Subscriber ID Type Phone Address [facility] HMO xxxxxxxxx MEDICARE [facility] CARE MEDICAID [facility] x[facility] Medicaid Advance Directives For more information, please contact:[address] [phone] Code Status Date Activated Date Inactivated Comments Full Code 07/28/2018 9:49 AM This code status was determined by: Patient Full Code 07/28/2018 5:19 AM 07/28/2018 9:49 AM This code status was determined by: Patient
--- OUTSIDE RECORDS SUMMARY | 2019-01-16 18:17 | XMS REPORT ---
:1970 [facility] [address] [place] [address] Care Team Providers Name Role Phone ABEL LI Unavailable Unavailable Problems This patient has no known problems. Allergies, Adverse Reactions, Alerts This patient has no known allergies or adverse reactions. Medications This patient has no known medications. Results Test Description Test Time Test Comments Text Results Atomic Results Result Comments BLOOD CULTURE 2018-08-02 17:01:00 Test Item Value Reference Range Comments CULTURE (BEAKER) (test tzjy=0404) No growth in 5 days LUPUS ANTICOAGULANT SCREEN WITH REFLEX TO [id number] 16:08:00 Test Item Value Reference Range Comments DRVV SCREEN RATIO (BEAKER) 1.55 <1.20 (test occp=5724) DRVV CONFIRM RATIO (test 0.93 lghs=8333) DRVV NORMALIZED RATIO (test 1.67 <1.20 fbhi=1314) DRVV INTERPRETATION (BEAKER) Positive screen for Lupus (test nlcc=6316) Anticoagulant with hexagonal phospholipid confirmation. Suggest repeat testing in 12 weeks and when patient not receiving anticoagulant therapy. PROTIME (BEAKER) (test 15.0 seconds 11.7-14.7 inow=046) INR (BEAKER) (test mccz=650) 1.2 <=5.9 PARTIAL THROMBOPLASTIN TIME 36.1 seconds 22.5-36.0 (BEAKER) (test qjkq=160) PTT-LA (BEAKER) (test 45.2 32.0-41.8 fcwh=[id number]) [id number] (BEAKER) Cindy Chavira MD (test zetd=8381) (electronic signature) HEXAGONAL [id number] 14:08:00 Test Item Value Reference Range Comments HEXAGONAL PHOSPHOLIPID (BEAKER) (test qvzs=0403) Positive BLOOD [id number] 10:01:00 Test Item Value Reference Range Comments CULTURE (BEAKER) (test dgya=4067) No growth in 5 days DOUBLE-STRANDED DNA (DSDNA) [id number] 05:52:00 Test Item Value Reference Range Comments ANTI-DNA DS (BEAKER) (test apiv=5953) Negative CARDIOLIPIN ANTIBODIES, IGG AND [id number] 15:01:00 Test Item Value Reference Range Comments ANTICARDIOLIPIN IGG ANTIBODY (BEAKER) (test < GPL <20.0 luxp=187) ANTICARDIOLIPIN IGM ANTIBODY (BEAKER) (test 2.1 MPL <20.0 pygk=202) Anticardiolipin IgG Result Interpretation: <20.0 GPL Normal>/=20.0 GPL PositiveAnticardiolipin IgM Result Interpretation: <20.0 MPL Normal>/= 20.0 MPL PositiveCALCIUM, [id number] 05:12:00 Test Item Value Reference Range Comments CALCIUM IONIZED (BEAKER) (test livj=252) 1.01 mmol/L 1.12-1.27 PH, BLOOD (BEAKER) (test mrxb=0345) 7.45 POCT-GLUCOSE [id number] 21:30:00 Test Item Value Reference Range Comments POC-GLUCOSE METER (BEAKER) 116 mg/dL 70-110 TESTED AT [address] (test gysd=0185) [place] [address] POCT-GLUCOSE [id number] 17:32:00 Test Item Value Reference Range Comments POC-GLUCOSE METER (BEAKER) 125 mg/dL 70-110 TESTED AT [address] (test aiyr=1020) [place] [id number] POCT-GLUCOSE [id number] 11:28:00 Test Item Value Reference Range Comments POC-GLUCOSE METER (BEAKER) 115 mg/dL 70-110 TESTED AT [address] (test nvvt=9651) [place] [address] POCT-GLUCOSE [id number] 07:41:00 Test Item Value Reference Range Comments POC-GLUCOSE METER (BEAKER) 108 mg/dL 70-110 TESTED AT [address] (test jcdx=5886) [place] [address] [id number] 07:06:00 Test Item Value Reference Range Comments MAGNESIUM (BEAKER) (test 1.8 mg/dL 1.6-2.6 Specimen slightly hemolyzed xoti=804) [id number] 07:06:00 Test Item Value Reference Range Comments PHOSPHORUS (BEAKER) (test 2.4 mg/dL 2.3-4.7 Specimen slightly hemolyzed vpqd=116) COMPREHENSIVE METABOLIC [id number] 07:06:00 Test Item Value Reference Range Comments TOTAL PROTEIN (BEAKER) 7.5 gm/dL 6.0-8.3 Specimen slightly (test yeuk=357) hemolyzed ALBUMIN (BEAKER) (test 3.7 g/dL 3.5-5.0 Specimen slightly kziu=7739) hemolyzed ALKALINE PHOSPHATASE 118 U/L 40-150 (BEAKER) (test qpdh=773) BILIRUBIN TOTAL (BEAKER) 0.6 mg/dL 0.2-1.2 Specimen slightly (test aric=106) hemolyzed SODIUM (BEAKER) (test 141 meq/L 136-145 fdcz=422) POTASSIUM (BEAKER) (test 3.3 meq/L 3.5-5.1 Specimen slightly lkzi=538) hemolyzed CHLORIDE (BEAKER) (test 112 meq/L 98-107 iesm=466) CO2 (BEAKER) (test 20 meq/L 22-29 ybwp=963) BLOOD UREA NITROGEN 17 mg/dL 7-21 (BEAKER) (test aaby=410) CREATININE (BEAKER) (test 1.53 mg/dL 0.57-1.25 Specimen slightly amed=510) hemolyzed GLUCOSE RANDOM (BEAKER) 102 mg/dL 70-105 (test rnzv=461) CALCIUM (BEAKER) (test 9.0 mg/dL 8.4-10.2 hzep=301) AST (SGOT) (BEAKER) (test 30 U/L 5-34 Specimen slightly xilq=973) hemolyzed ALT (SGPT) (BEAKER) (test 12 U/L 6-55 Specimen slightly halr=291) hemolyzed EGFR (BEAKER) (test 44 mL/min/1.73 sq m ESTIMATED GFR IS NOT mhjj=3431) ACCURATE CREATININE CLEARANCE IN PREDICTING GLOMERULAR FILTRATION RATE. ESTIMATED GFR IS NOT APPLICABLE FOR DIALYSIS PATIENTS. HEPATIC FUNCTION [id number] 07:06:00 Test Item Value Reference Range Comments TOTAL PROTEIN (BEAKER) (test 7.5 gm/dL 6.0-8.3 Specimen slightly hemolyzed knlo=309) ALBUMIN (BEAKER) (test 3.7 g/dL 3.5-5.0 Specimen slightly hemolyzed ktve=9574) BILIRUBIN TOTAL (BEAKER) (test 0.6 mg/dL 0.2-1.2 Specimen slightly hemolyzed ngnh=597) BILIRUBIN DIRECT (BEAKER) (test 0.3 mg/dL 0.1-0.5 Specimen slightly hemolyzed ltgb=355) ALKALINE PHOSPHATASE (BEAKER) 118 U/L 40-150 (test sgqk=295) AST (SGOT) (BEAKER) (test 30 U/L 5-34 Specimen slightly hemolyzed hkao=417) ALT (SGPT) (BEAKER) (test 12 U/L 6-55 Specimen slightly hemolyzed wbny=350) CALCIUM, [id number] 06:42:00 Test Item Value Reference Range Comments CALCIUM IONIZED (BEAKER) (test mhhk=834) 1.16 mmol/L 1.12-1.27 PH, BLOOD (BEAKER) (test jdom=1166) 7.42 CBC W/PLT COUNT & AUTO [id number] 05:10:00 Test Item Value Reference Range Comments WHITE BLOOD CELL COUNT (BEAKER) (test wojx=301) 5.9 K/ L 3.5-10.5 RED BLOOD CELL COUNT (BEAKER) (test cozi=836) 3.45 M/ L 3.93-5.22 HEMOGLOBIN (BEAKER) (test sebj=190) 9.1 GM/DL 11.2-15.7 HEMATOCRIT (BEAKER) (test hlan=212) 28.8 % 34.1-44.9 MEAN CORPUSCULAR VOLUME (BEAKER) (test gyqt=046) 83.5 fL 79.4-94.8 MEAN CORPUSCULAR HEMOGLOBIN (BEAKER) (test 26.4 pg 25.6-32.2 elyy=246) MEAN CORPUSCULAR HEMOGLOBIN CONC (BEAKER) (test 31.6 GM/DL 32.2-35.5 kjzf=596) RED CELL DISTRIBUTION WIDTH (BEAKER) (test 14.4 % 11.7-14.4 hnfx=560) PLATELET COUNT (BEAKER) (test enby=998) 220 K/CU MM 150-450 MEAN PLATELET VOLUME (BEAKER) (test dvww=426) 9.7 fL 9.4-12.3 NUCLEATED RED BLOOD CELLS (BEAKER) (test 0 /100 WBC 0-0 jxwa=434) NEUTROPHILS RELATIVE PERCENT (BEAKER) (test 53 % kelh=929) LYMPHOCYTES RELATIVE PERCENT (BEAKER) (test 25 % jtrm=253) MONOCYTES RELATIVE PERCENT (BEAKER) (test 14 % tklw=596) EOSINOPHILS RELATIVE PERCENT (BEAKER) (test 8 % xsgw=951) BASOPHILS RELATIVE PERCENT (BEAKER) (test 1 % qwiz=072) NEUTROPHILS ABSOLUTE COUNT (BEAKER) (test 3.09 K/ L 1.56-6.13 yinh=498) LYMPHOCYTES ABSOLUTE COUNT (BEAKER) (test 1.46 K/ L 1.18-3.74 gqxb=036) MONOCYTES ABSOLUTE COUNT (BEAKER) (test 0.79 K/ L 0.24-0.36 blsw=673) EOSINOPHILS ABSOLUTE COUNT (BEAKER) (test 0.46 K/ L 0.04-0.36 kpta=946) BASOPHILS ABSOLUTE COUNT (BEAKER) (test 0.05 K/ L 0.01-0.08 jdeb=826) IMMATURE GRANULOCYTES-RELATIVE PERCENT (BEAKER) 0 % 0-1 (test eyld=0348) POCT-GLUCOSE [id number] 23:12:00 Test Item Value Reference Range Comments POC-GLUCOSE METER (BEAKER) 95 mg/dL 70-110 TESTED AT [address] (test ujcl=7699) [place] [id number] POCT-GLUCOSE [id number] 18:51:00 Test Item Value Reference Range Comments POC-GLUCOSE METER (BEAKER) 118 mg/dL 70-110 TESTED AT [address] (test citt=7910) [place] [id number] HEMOGLOBIN AND [id number] 16:28:00 Test Item Value Reference Range Comments HEMOGLOBIN (BEAKER) (test djss=160) 8.7 GM/DL 11.2-15.7 HEMATOCRIT (BEAKER) (test uoem=938) 27.8 % 34.1-44.9 POCT-GLUCOSE [id number] 15:00:00 Test Item Value Reference Range Comments POC-GLUCOSE METER (BEAKER) 140 mg/dL 70-110 TESTED AT [address] (test rryd=5675) [facility] [address] POCT-GLUCOSE [id number] 14:46:00 Test Item Value Reference Range Comments POC-GLUCOSE METER (BEAKER) 44 mg/dL 70-110 Notified LUIS WALTER/TESTED AT [facility] (test dixq=1510) [address] [place] [address] POCT-GLUCOSE [id number] 13:05:00 Test Item Value Reference Range Comments POC-GLUCOSE METER (BEAKER) 87 mg/dL 70-110 TESTED AT [address] (test ivxu=7165) [facility] [address] POCT-GLUCOSE [id number] 11:57:00 Test Item Value Reference Range Comments POC-GLUCOSE METER (BEAKER) 65 mg/dL 70-110 Notified LUIS WALTER/TESTED AT [facility] (test csju=4161) [address] [place], [place] [id number] VANCOMYCIN LEVEL, [id number] 10:58:00 Test Item Value Reference Range Comments VANCOMYCIN TROUGH (BEAKER) (test mxll=670) 14.2 ug/mL 10.0-20.0 RAD, ABDOMEN/KUB, 1 VIEW [id number] 09:41:00Reason for exam:->abdominal painFINAL REPORT AP abdomen, two images HISTORY: Abdominal pain COMPARISON: 07/28/2013 IMPRESSION:Grossly nonobstructive bowel gas pattern. Intact skeleton. Signed: Vikas Guillen MDReport Verified Date/ Time: 07/30/2018 09:41:59 Reading Location: [facility] B1 [id number] Ortho Consult ReadingRoom Electronically signed by: VIKAS GUILLEN M.D. on 2017 09:41 AMPOCT-GLUCOSE [id number] 07:59:00 Test Item Value Reference Range Comments POC-GLUCOSE METER (BEAKER) 87 mg/dL 70-110 TESTED AT [address] (test akdj=6106) [facility] [address] CALCIUM, [id number] 06:53:00 Test Item Value Reference Range Comments CALCIUM IONIZED (BEAKER) (test pwsk=903) 1.12 mmol/L 1.12-1.27 PH, BLOOD (BEAKER) (test xbdh=2271) 7.44 [id number] 06:38:00 Test Item Value Reference Range Comments PHOSPHORUS (BEAKER) (test muez=700) 2.7 mg/dL 2.3-4.7 [id number] 06:38:00 Test Item Value Reference Range Comments MAGNESIUM (BEAKER) (test pces=276) 1.6 mg/dL 1.6-2.6 HEPATIC FUNCTION [id number] 06:38:00 Test Item Value Reference Range Comments TOTAL PROTEIN (BEAKER) (test xaxi=619) 6.8 gm/dL 6.0-8.3 ALBUMIN (BEAKER) (test bmlb=9766) 3.4 g/dL 3.5-5.0 BILIRUBIN TOTAL (BEAKER) (test oqzy=900) 0.5 mg/dL 0.2-1.2 BILIRUBIN DIRECT (BEAKER) (test tcvq=817) 0.2 mg/dL 0.1-0.5 ALKALINE PHOSPHATASE (BEAKER) (test phaq=438) 118 U/L 40-150 AST (SGOT) (BEAKER) (test ruvs=744) 22 U/L 5-34 ALT (SGPT) (BEAKER) (test ntsu=699) 9 U/L 6-55 COMPREHENSIVE METABOLIC [id number] 06:38:00 Test Item Value Reference Range Comments TOTAL PROTEIN (BEAKER) 6.8 gm/dL 6.0-8.3 (test kolb=884) ALBUMIN (BEAKER) (test 3.4 g/dL 3.5-5.0 sfkv=8889) ALKALINE PHOSPHATASE 118 U/L 40-150 (BEAKER) (test issz=565) BILIRUBIN TOTAL (BEAKER) 0.5 mg/dL 0.2-1.2 (test tkqp=925) SODIUM (BEAKER) (test 138 meq/L 136-145 tnnz=714) POTASSIUM (BEAKER) (test 3.3 meq/L 3.5-5.1 qfrq=084) CHLORIDE (BEAKER) (test 111 meq/L 98-107 lpoo=251) CO2 (BEAKER) (test 18 meq/L 22-29 zjwh=724) BLOOD UREA NITROGEN 29 mg/dL 7-21 (BEAKER) (test bhbz=768) CREATININE (BEAKER) (test 1.79 mg/dL 0.57-1.25 kadi=634) GLUCOSE RANDOM (BEAKER) 86 mg/dL 70-105 (test dvdb=088) CALCIUM (BEAKER) (test 8.6 mg/dL 8.4-10.2 wssx=574) AST (SGOT) (BEAKER) (test 22 U/L 5-34 vzqo=266) ALT (SGPT) (BEAKER) (test 9 U/L 6-55 zcdz=841) EGFR (BEAKER) (test 37 mL/min/1.73 sq m ESTIMATED GFR IS NOT btmd=3021) ACCURATE CREATININE CLEARANCE IN PREDICTING GLOMERULAR FILTRATION RATE. ESTIMATED GFR IS NOT APPLICABLE FOR DIALYSIS PATIENTS. CBC W/PLT COUNT & AUTO [id number] 06:11:00 Test Item Value Reference Range Comments WHITE BLOOD CELL COUNT (BEAKER) (test lqjm=567) 7.6 K/ L 3.5-10.5 RED BLOOD CELL COUNT (BEAKER) (test xikl=320) 3.60 M/ L 3.93-5.22 HEMOGLOBIN (BEAKER) (test tyxc=808) 9.4 GM/DL 11.2-15.7 HEMATOCRIT (BEAKER) (test vgny=118) 30.1 % 34.1-44.9 MEAN CORPUSCULAR VOLUME (BEAKER) (test eskv=554) 83.6 fL 79.4-94.8 MEAN CORPUSCULAR HEMOGLOBIN (BEAKER) (test 26.1 pg 25.6-32.2 arav=707) MEAN CORPUSCULAR HEMOGLOBIN CONC (BEAKER) (test 31.2 GM/DL 32.2-35.5 vdke=991) RED CELL DISTRIBUTION WIDTH (BEAKER) (test 14.6 % 11.7-14.4 ockc=220) PLATELET COUNT (BEAKER) (test chkx=376) 221 K/CU MM 150-450 MEAN PLATELET VOLUME (BEAKER) (test lxci=365) 9.7 fL 9.4-12.3 NUCLEATED RED BLOOD CELLS (BEAKER) (test 0 /100 WBC 0-0 klxz=538) NEUTROPHILS RELATIVE PERCENT (BEAKER) (test 66 % ealc=193) LYMPHOCYTES RELATIVE PERCENT (BEAKER) (test 18 % ucyx=759) MONOCYTES RELATIVE PERCENT (BEAKER) (test 12 % mmvg=764) EOSINOPHILS RELATIVE PERCENT (BEAKER) (test 3 % fibx=502) BASOPHILS RELATIVE PERCENT (BEAKER) (test 1 % mvwl=133) NEUTROPHILS ABSOLUTE COUNT (BEAKER) (test 5.00 K/ L 1.56-6.13 puej=825) LYMPHOCYTES ABSOLUTE COUNT (BEAKER) (test 1.35 K/ L 1.18-3.74 ipxa=310) MONOCYTES ABSOLUTE COUNT (BEAKER) (test 0.87 K/ L 0.24-0.36 rgwu=284) EOSINOPHILS ABSOLUTE COUNT (BEAKER) (test 0.22 K/ L 0.04-0.36 znwm=972) BASOPHILS ABSOLUTE COUNT (BEAKER) (test 0.07 K/ L 0.01-0.08 mudq=957) IMMATURE GRANULOCYTES-RELATIVE PERCENT (BEAKER) 1 % 0-1 (test dwub=9582) POCT-GLUCOSE [id number] 21:38:00 Test Item Value Reference Range Comments POC-GLUCOSE METER (BEAKER) 96 mg/dL 70-110 TESTED AT [address] (test rssm=7817) [place] [address] POCT-GLUCOSE [id number] 18:19:00 Test Item Value Reference Range Comments POC-GLUCOSE METER (BEAKER) 121 mg/dL 70-110 TESTED AT [address] (test hrqg=3859) [place] [address] T4, [id number] 12:35:00 Test Item Value Reference Range Comments FREE T4 (BEAKER) (test wmxe=976) 1.25 ng/dL 0.70-1.48 POCT-GLUCOSE [id number] 12:27:00 Test Item Value Reference Range Comments POC-GLUCOSE METER (BEAKER) 127 mg/dL 70-110 TESTED AT [address] (test yrxe=3181) [place] [address] TSH/FREE T4 IF [id number] 12:07:00 Test Item Value Reference Range Comments THYROID STIMULATING HORMONE (BEAKER) (test 0.25 uIU/mL 0.35-4.94 cadz=194) [id number] 12:07:00 Test Item Value Reference Range Comments THYROID STIMULATING HORMONE (BEAKER) (test 0.25 uIU/mL 0.35-4.94 aocl=862) LACTIC ACID, VENOUS, WHOLE [id number] 11:35:00 Test Item Value Reference Range Comments LACTATE BLOOD VENOUS (2) 0.6 mmol/L 0.5-2.2 Specimen slightly hemolyzed (BEAKER) (test pgpl=7849) VANCOMYCIN LEVEL, [id number] 07:11:00 Test Item Value Reference Range Comments VANCOMYCIN RANDOM (BEAKER) (test wfip=118) 17.9 ug/mL Reference Range: No [id number] 07:09:00 Test Item Value Reference Range Comments PHOSPHORUS (BEAKER) (test phcq=002) 3.9 mg/dL 2.3-4.7 [id number] 07:09:00 Test Item Value Reference Range Comments MAGNESIUM (BEAKER) (test okri=595) 1.7 mg/dL 1.6-2.6 BASIC METABOLIC [id number] 07:09:00 Test Item Value Reference Range Comments SODIUM (BEAKER) (test 143 meq/L 136-145 rzfm=277) POTASSIUM (BEAKER) (test 3.3 meq/L 3.5-5.1 tcmw=216) CHLORIDE (BEAKER) (test 116 meq/L 98-107 vsqz=674) CO2 (BEAKER) (test 16 meq/L 22-29 tptc=626) BLOOD UREA NITROGEN 39 mg/dL 7-21 (BEAKER) (test ttxw=155) CREATININE (BEAKER) (test 2.09 mg/dL 0.57-1.25 mrnz=667) GLUCOSE RANDOM (BEAKER) 121 mg/dL 70-105 (test payy=558) CALCIUM (BEAKER) (test 8.6 mg/dL 8.4-10.2 otsi=324) EGFR (BEAKER) (test 31 mL/min/1.73 sq m ESTIMATED GFR IS NOT aphf=9955) ACCURATE CREATININE CLEARANCE IN PREDICTING GLOMERULAR FILTRATION RATE. ESTIMATED GFR IS NOT APPLICABLE FOR DIALYSIS PATIENTS. HEPATIC FUNCTION [id number] 07:09:00 Test Item Value Reference Range Comments TOTAL PROTEIN (BEAKER) (test culn=269) 7.0 gm/dL 6.0-8.3 ALBUMIN (BEAKER) (test mmkn=5656) 3.4 g/dL 3.5-5.0 BILIRUBIN TOTAL (BEAKER) (test xhzy=075) 0.4 mg/dL 0.2-1.2 BILIRUBIN DIRECT (BEAKER) (test lxln=792) 0.2 mg/dL 0.1-0.5 ALKALINE PHOSPHATASE (BEAKER) (test ylae=587) 131 U/L 40-150 AST (SGOT) (BEAKER) (test czgh=433) 20 U/L 5-34 ALT (SGPT) (BEAKER) (test bfmy=100) 10 U/L 6-55 TROPONIN [id number] 06:54:00 Test Item Value Reference Range Comments TROPONIN I (BEAKER) (test zzlc=580) 0.08 ng/mL 0.00-0.03 LACTIC ACID, VENOUS, WHOLE [id number] 06:45:00 Test Item Value Reference Range Comments LACTATE BLOOD VENOUS (2) 0.8 mmol/L 0.5-2.2 Specimen slightly hemolyzed (BEAKER) (test czch=4427) CBC W/PLT COUNT & AUTO [id number] 06:00:00 Test Item Value Reference Range Comments WHITE BLOOD CELL COUNT (BEAKER) (test ybgu=831) 7.4 K/ L 3.5-10.5 RED BLOOD CELL COUNT (BEAKER) (test qrfn=455) 4.02 M/ L 3.93-5.22 HEMOGLOBIN (BEAKER) (test cgwy=276) 10.6 GM/DL 11.2-15.7 HEMATOCRIT (BEAKER) (test kkim=381) 33.3 % 34.1-44.9 MEAN CORPUSCULAR VOLUME (BEAKER) (test jikk=505) 82.8 fL 79.4-94.8 MEAN CORPUSCULAR HEMOGLOBIN (BEAKER) (test 26.4 pg 25.6-32.2 bzuh=743) MEAN CORPUSCULAR HEMOGLOBIN CONC (BEAKER) (test 31.8 GM/DL 32.2-35.5 jmft=515) RED CELL DISTRIBUTION WIDTH (BEAKER) (test 14.6 % 11.7-14.4 qgvx=411) PLATELET COUNT (BEAKER) (test oitc=866) 267 K/CU MM 150-450 MEAN PLATELET VOLUME (BEAKER) (test wbwu=809) 9.7 fL 9.4-12.3 NUCLEATED RED BLOOD CELLS (BEAKER) (test 0 /100 WBC 0-0 paez=102) NEUTROPHILS RELATIVE PERCENT (BEAKER) (test 69 % jkez=349) LYMPHOCYTES RELATIVE PERCENT (BEAKER) (test 15 % hsqv=959) MONOCYTES RELATIVE PERCENT (BEAKER) (test 15 % qzgz=783) EOSINOPHILS RELATIVE PERCENT (BEAKER) (test 0 % yrvl=059) BASOPHILS RELATIVE PERCENT (BEAKER) (test 0 % zqsd=796) NEUTROPHILS ABSOLUTE COUNT (BEAKER) (test 5.14 K/ L 1.56-6.13 neps=375) LYMPHOCYTES ABSOLUTE COUNT (BEAKER) (test 1.12 K/ L 1.18-3.74 klil=916) MONOCYTES ABSOLUTE COUNT (BEAKER) (test 1.12 K/ L 0.24-0.36 tzhv=131) EOSINOPHILS ABSOLUTE COUNT (BEAKER) (test 0.01 K/ L 0.04-0.36 umff=109) BASOPHILS ABSOLUTE COUNT (BEAKER) (test 0.03 K/ L 0.01-0.08 bmqj=225) IMMATURE GRANULOCYTES-RELATIVE PERCENT (BEAKER) 0 % 0-1 (test lqzj=6782) CALCIUM, [id number] 05:58:00 Test Item Value Reference Range Comments CALCIUM IONIZED (BEAKER) (test rjjo=147) 1.12 mmol/L 1.12-1.27 PH, BLOOD (BEAKER) (test jsyb=4638) 7.39 EOSINOPHIL SMEAR, [id number] 20:17:00 Test Item Value Reference Range Comments EOSINOPHIL SMEAR, URINE (BEAKER) (test No EOS seen No EOS seen lnhk=5761) BASIC METABOLIC [id number] 20:01:00 Test Item Value Reference Range Comments SODIUM (BEAKER) (test 144 meq/L 136-145 bgum=591) POTASSIUM (BEAKER) (test 3.2 meq/L 3.5-5.1 apfn=684) CHLORIDE (BEAKER) (test 114 meq/L 98-107 nhyw=950) CO2 (BEAKER) (test 18 meq/L 22-29 pjou=246) BLOOD UREA NITROGEN 42 mg/dL 7-21 (BEAKER) (test nkwv=913) CREATININE (BEAKER) (test 2.14 mg/dL 0.57-1.25 thfx=165) GLUCOSE RANDOM (BEAKER) 141 mg/dL 70-105 (test qhaj=465) CALCIUM (BEAKER) (test 8.9 mg/dL 8.4-10.2 kpwp=453) EGFR (BEAKER) (test 30 mL/min/1.73 sq m ESTIMATED GFR IS NOT pwhu=6121) ACCURATE CREATININE CLEARANCE IN PREDICTING GLOMERULAR FILTRATION RATE. ESTIMATED GFR IS NOT APPLICABLE FOR DIALYSIS PATIENTS. LACTIC ACID, VENOUS, WHOLE [id number] 19:59:00 Test Item Value Reference Range Comments LACTATE BLOOD VENOUS (2) 0.8 mmol/L 0.5-2.2 Specimen slightly hemolyzed (BEAKER) (test ierx=5917) CT, BRAIN/STROKE [id number] 19:59:00Stroke Protocol. Phone/Page MD for reporting.Reason for exam:->Acute neurological changeSuspectedstrokeFINAL REPORT CT head without contrast 07/28/2018 7:56 PM CLINICAL HISTORY: Acute neurological changestroke TECHNIQUE: Axial noncontrast CT images through the head were obtained. This examination was performed according to our departmental dose optimization program, which includes automated exposure control, adjustment of the mA and/or kV according to patient size, and/or use ofiterated reconstruction technique. 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 Signed: Travis Huerta Verified Date/Time: 2017 19:59:01 Reading Location: [facility] Radiology Reading Room [id number] 19:51:00 Test Item Value Reference Range Comments PARTIAL THROMBOPLASTIN TIME (BEAKER) (test 33.1 seconds 22.5-36.0 mldu=600) PROTHROMBIN TIME/[id number] 19:50:00 Test Item Value Reference Range Comments PROTIME (BEAKER) (test gdkb=757) 15.6 seconds 11.7-14.7 INR (BEAKER) (test hfuo=196) 1.2 <=5.9 RECOMMENDED COUMADIN/WARFARIN INR THERAPY RANGESSTANDARD DOSE: 2.0 - 3.0 Includes: PROPHYLAXIS forvenous thrombosis, systemic embolization; TREATMENT for venous thrombosis and/or pulmonary embolus.HIGH RISK: Target INR is 2.5-3.5 for patients with mechanical heart valves.HEMOGLOBIN AND [id number] 19 :41:00 Test Item Value Reference Range Comments HEMOGLOBIN (BEAKER) (test pyyi=885) 11.3 GM/DL 11.2-15.7 HEMATOCRIT (BEAKER) (test ehkt=544) 35.4 % 34.1-44.9 CBC W/PLT COUNT & AUTO [id number] 19:41:00 Test Item Value Reference Range Comments WHITE BLOOD CELL COUNT (BEAKER) (test wqwj=182) 6.8 K/ L 3.5-10.5 RED BLOOD CELL COUNT (BEAKER) (test grvk=383) 4.36 M/ L 3.93-5.22 HEMOGLOBIN (BEAKER) (test dkkz=168) 11.3 GM/DL 11.2-15.7 HEMATOCRIT (BEAKER) (test qbxx=528) 35.4 % 34.1-44.9 MEAN CORPUSCULAR VOLUME (BEAKER) (test zhfw=781) 81.2 fL 79.4-94.8 MEAN CORPUSCULAR HEMOGLOBIN (BEAKER) (test 25.9 pg 25.6-32.2 hlak=849) MEAN CORPUSCULAR HEMOGLOBIN CONC (BEAKER) (test 31.9 GM/DL 32.2-35.5 njjl=344) RED CELL DISTRIBUTION WIDTH (BEAKER) (test 14.2 % 11.7-14.4 clga=725) PLATELET COUNT (BEAKER) (test bvgy=370) 263 K/CU MM 150-450 MEAN PLATELET VOLUME (BEAKER) (test ucha=598) 9.4 fL 9.4-12.3 NUCLEATED RED BLOOD CELLS (BEAKER) (test 0 /100 WBC 0-0 pfex=736) NEUTROPHILS RELATIVE PERCENT (BEAKER) (test 78 % gcyr=067) LYMPHOCYTES RELATIVE PERCENT (BEAKER) (test 10 % mbfb=776) MONOCYTES RELATIVE PERCENT (BEAKER) (test 11 % oeue=574) EOSINOPHILS RELATIVE PERCENT (BEAKER) (test 0 % ivow=147) BASOPHILS RELATIVE PERCENT (BEAKER) (test 0 % pakp=815) NEUTROPHILS ABSOLUTE COUNT (BEAKER) (test 5.35 K/ L 1.56-6.13 xjss=649) LYMPHOCYTES ABSOLUTE COUNT (BEAKER) (test 0.70 K/ L 1.18-3.74 hccg=343) MONOCYTES ABSOLUTE COUNT (BEAKER) (test 0.76 K/ L 0.24-0.36 ydeg=280) EOSINOPHILS ABSOLUTE COUNT (BEAKER) (test 0.00 K/ L 0.04-0.36 nbnm=776) BASOPHILS ABSOLUTE COUNT (BEAKER) (test 0.01 K/ L 0.01-0.08 bwwd=103) IMMATURE GRANULOCYTES-RELATIVE PERCENT (BEAKER) 0 % 0-1 (test utxg=1292) TROPONIN [id number] 19:26:00 Test Item Value Reference Range Comments TROPONIN I (BEAKER) (test qpmx=627) 0.11 ng/mL 0.00-0.03 PROTEIN, RANDOM [id number] 19:19:00 Test Item Value Reference Range Comments PROTEIN, URINE (BEAKER) (test vjvg=2667) 325 mg/dL 0-14 POCT-GLUCOSE [id number] 19:00:00 Test Item Value Reference Range Comments POC-GLUCOSE METER (BEAKER) 158 mg/dL 70-110 TESTED AT [facility] [address] [place] [address] (test khyi=2900) [facility] [address] CREATININE, RANDOM [id number] 18:52:00 Test Item Value Reference Range Comments CREATININE URINE (BEAKER) (test goqo=643) 95.8 mg/dL Reference Range: No NormalsSODIUM, RANDOM [id number] 18:52:00 Test Item Value Reference Range Comments SODIUM URINE (BEAKER) (test prha=362) 28 meq/L Reference Range: No NormalsURINALYSIS W/ [id number] 18:02:00 Test Item Value Reference Range Comments COLOR (BEAKER) (test yqln=271) Yellow CLARITY (BEAKER) (test wnib=624) Clear SPECIFIC GRAVITY UA (BEAKER) (test 1.014 1.001-1.035 qgge=472) PH UA (BEAKER) (test bpuo=177) 5.5 5.0-8.0 PROTEIN UA (BEAKER) (test nnwr=010) 300 mg/dL Negative GLUCOSE UA (BEAKER) (test fuap=719) Negative Negative KETONES UA (BEAKER) (test bsxx=898) Negative Negative BILIRUBIN UA (BEAKER) (test bjwk=876) Negative Negative BLOOD UA (BEAKER) (test zdtn=564) Trace Negative NITRITE UA (BEAKER) (test qyfx=050) Negative Negative LEUKOCYTE ESTERASE UA (BEAKER) (test Negative Negative yvtu=791) UROBILINOGEN UA (BEAKER) (test gimq=067) 0.2 mg/dL 0.2-1.0 RBC UA (BEAKER) (test zuqe=543) 21 /HPF WBC UA (BEAKER) (test nkki=418) 1 /HPF MUCUS (BEAKER) (test pqtv=0945) Rare SQUAMOUS EPITHELIAL (BEAKER) (test < /HPF jexl=049) HYALINE CASTS (BEAKER) (test txms=052) 1 /LPF SOURCE(BEAKER) (test plqd=9698) Urine, Clean Catch POCT-GLUCOSE [id number] 17:21:00 Test Item Value Reference Range Comments POC-GLUCOSE METER (BEAKER) 137 mg/dL 70-110 TESTED AT [facility] [address] [facility] (test aquw=6214) [facility] [address] BASIC METABOLIC [id number] 17:14:00 Test Item Value Reference Range Comments SODIUM (BEAKER) (test 146 meq/L 136-145 agxg=881) POTASSIUM (BEAKER) (test 3.3 meq/L 3.5-5.1 ubck=773) CHLORIDE (BEAKER) (test 114 meq/L 98-107 vhmz=465) CO2 (BEAKER) (test 20 meq/L 22-29 flpn=076) BLOOD UREA NITROGEN 41 mg/dL 7-21 (BEAKER) (test iith=952) CREATININE (BEAKER) (test 2.12 mg/dL 0.57-1.25 xtvb=459) GLUCOSE RANDOM (BEAKER) 135 mg/dL 70-105 (test qkfq=919) CALCIUM (BEAKER) (test 8.9 mg/dL 8.4-10.2 gdbq=752) EGFR (BEAKER) (test 30 mL/min/1.73 sq m ESTIMATED GFR IS NOT kdsj=1630) ACCURATE CREATININE CLEARANCE IN PREDICTING GLOMERULAR FILTRATION RATE. ESTIMATED GFR IS NOT APPLICABLE FOR DIALYSIS PATIENTS. Call results [id number] ACID, VENOUS, WHOLE [id number] 14:19:00 Test Item Value Reference Range Comments LACTATE BLOOD VENOUS (2) (BEAKER) (test 1.1 mmol/L 0.5-2.2 zywn=5518) THROMBIN [id number] 13:02:00 Test Item Value Reference Range Comments THROMBIN TIME (BEAKER) (test njse=715) 17.8 secs 13.8-20.0 [id number] 13:01:00 Test Item Value Reference Range Comments PROCALCITONIN (BEAKER) (test abhy=5464) 0.09 ng/mL <0.05 SEPSIS RISK (ng/mL)Low: 0.05-0.50Intermediate: 0.51-2.00High: & gt;=2.011:1 MIXING STUDY, [id number] 12:38:00 Test Item Value Reference Range Comments PROTIME (BEAKER) (test wnwm=712) 15.0 seconds 11.7-14.7 PARTIAL THROMBOPLASTIN TIME (BEAKER) (test 36.1 seconds 22.5-36.0 pcik=205) PT 1/1 MIX (BEAKER) (test iusz=9498) 14.4 SECS 11.7-14.7 PTT 1/1 MIX (BEAKER) (test blwq=3792) 35.5 SECS 22.5-36.0 TROPONIN [id number] 12:01:00 Test Item Value Reference Range Comments TROPONIN I (BEAKER) (test twlb=463) 0.13 ng/mL 0.00-0.03 HCG, QUANTITATIVE, [id number] 11:58:00 Test Item Value Reference Range Comments GONADOTROPIN, CHORIONIC (HCG) QUANT (BEAKER) (test < mIU/mL 0-10 bloc=450) Non- Females: <10 mIU/mL Females: Gestation Age Reference Range(mIU/mL) 0.2-1 Week 5-50 1-2 Weeks 50-500 2-3 Weeks 100-5,000 3-4Weeks 500-10,000 4 -5 Weeks 1,000-50,000 5-6 Weeks 10,000-100,000 6-8 Weeks 15,000-200,000 2-3 Months 10,000-100,[id number] 11:55:00 Test Item Value Reference Range Comments LIPASE (BEAKER) (test ywlx=911) 31 U/L 8-78 [id number] 11:55:00 Test Item Value Reference Range Comments AMYLASE (BEAKER) (test ffcs=102) 101 U/L 25-125 COMPREHENSIVE METABOLIC [id number] 11:55:00 Test Item Value Reference Range Comments TOTAL PROTEIN (BEAKER) 8.5 gm/dL 6.0-8.3 (test thjq=976) ALBUMIN (BEAKER) (test 4.1 g/dL 3.5-5.0 nleg=0686) ALKALINE PHOSPHATASE 170 U/L 40-150 (BEAKER) (test ezaz=582) BILIRUBIN TOTAL (BEAKER) 0.3 mg/dL 0.2-1.2 (test ebkk=006) SODIUM (BEAKER) (test 143 meq/L 136-145 bdzf=394) POTASSIUM (BEAKER) (test 2.9 meq/L 3.5-5.1 zoks=969) CHLORIDE (BEAKER) (test 111 meq/L 98-107 nicx=098) CO2 (BEAKER) (test 19 meq/L 22-29 dddx=519) BLOOD UREA NITROGEN 41 mg/dL 7-21 (BEAKER) (test bjuz=207) CREATININE (BEAKER) (test 2.07 mg/dL 0.57-1.25 wycb=055) GLUCOSE RANDOM (BEAKER) 162 mg/dL 70-105 (test ortj=588) CALCIUM (BEAKER) (test 9.1 mg/dL 8.4-10.2 bfuk=030) AST (SGOT) (BEAKER) (test 21 U/L 5-34 vxle=384) ALT (SGPT) (BEAKER) (test 11 U/L 6-55 egho=535) EGFR (BEAKER) (test 31 mL/min/1.73 sq m ESTIMATED GFR IS NOT lsfs=3581) ACCURATE CREATININE CLEARANCE IN PREDICTING GLOMERULAR FILTRATION RATE. ESTIMATED GFR IS NOT APPLICABLE FOR DIALYSIS PATIENTS. C-REACTIVE [id number] 11:55:00 Test Item Value Reference Range Comments C-REACTIVE PROTEIN (BEAKER) (test npma=809) 0.42 mg/dL 0.00-0.50 LACTIC ACID, VENOUS, WHOLE [id number] 11:51:00 Test Item Value Reference Range Comments LACTATE BLOOD VENOUS (2) 1.5 mmol/L 0.5-2.2 Specimen slightly hemolyzed (BEAKER) (test ztzm=0160) [id number] 11:44:00 Test Item Value Reference Range Comments PARTIAL THROMBOPLASTIN TIME (BEAKER) (test 35.4 seconds 22.5-36.0 mwrk=795) CBC W/PLT COUNT & AUTO [id number] 11:30:00 Test Item Value Reference Range Comments WHITE BLOOD CELL COUNT (BEAKER) (test apnm=874) 9.2 K/ L 3.5-10.5 RED BLOOD CELL COUNT (BEAKER) (test fyee=103) 4.90 M/ L 3.93-5.22 HEMOGLOBIN (BEAKER) (test cqst=015) 12.7 GM/DL 11.2-15.7 HEMATOCRIT (BEAKER) (test cpop=332) 39.7 % 34.1-44.9 MEAN CORPUSCULAR VOLUME (BEAKER) (test jcci=746) 81.0 fL 79.4-94.8 MEAN CORPUSCULAR HEMOGLOBIN (BEAKER) (test 25.9 pg 25.6-32.2 bxnk=753) MEAN CORPUSCULAR HEMOGLOBIN CONC (BEAKER) (test 32.0 GM/DL 32.2-35.5 jqfi=837) RED CELL DISTRIBUTION WIDTH (BEAKER) (test 14.3 % 11.7-14.4 hknh=221) PLATELET COUNT (BEAKER) (test bgpo=038) 327 K/CU MM 150-450 MEAN PLATELET VOLUME (BEAKER) (test kphu=757) 9.0 fL 9.4-12.3 NUCLEATED RED BLOOD CELLS (BEAKER) (test 0 /100 WBC 0-0 bbph=825) NEUTROPHILS RELATIVE PERCENT (BEAKER) (test 88 % ohvx=031) LYMPHOCYTES RELATIVE PERCENT (BEAKER) (test 5 % nyox=700) MONOCYTES RELATIVE PERCENT (BEAKER) (test 6 % jkih=097) EOSINOPHILS RELATIVE PERCENT (BEAKER) (test 0 % citb=262) BASOPHILS RELATIVE PERCENT (BEAKER) (test 0 % nprl=894) NEUTROPHILS ABSOLUTE COUNT (BEAKER) (test 8.16 K/ L 1.56-6.13 umju=517) LYMPHOCYTES ABSOLUTE COUNT (BEAKER) (test 0.50 K/ L 1.18-3.74 jxhj=928) MONOCYTES ABSOLUTE COUNT (BEAKER) (test 0.53 K/ L 0.24-0.36 vqqg=260) EOSINOPHILS ABSOLUTE COUNT (BEAKER) (test 0.00 K/ L 0.04-0.36 quuj=301) BASOPHILS ABSOLUTE COUNT (BEAKER) (test 0.01 K/ L 0.01-0.08 dnxd=291) IMMATURE GRANULOCYTES-RELATIVE PERCENT (BEAKER) 0 % 0-1 (test eziq=5073) POCT-GLUCOSE [id number] 11:20:00 Test Item Value Reference Range Comments POC-GLUCOSE METER (BEAKER) 167 mg/dL 70-110 TESTED AT [facility] [address] [facility] (test hgfm=8174) [facility] [address] HEMOGLOBIN [id number] 11:15:00 Test Item Value Reference Range Comments HEMOGLOBIN A1C (BEAKER) (test iwnk=598) 5.6 % 4.3-6.1 PROTHROMBIN [id number] 08:24:00 Test Item Value Reference Range Comments PROTIME (BEAKER) (test vqut=283) 15.3 seconds 11.7-14.7 INR (BEAKER) (test aboy=704) 1.2 <=5.9 RECOMMENDED COUMADIN/WARFARIN INR THERAPY RANGESSTANDARD DOSE: 2.0 - 3.0 Includes: PROPHYLAXIS forvenous thrombosis, systemic embolization; TREATMENT for venous thrombosis and/or pulmonary embolus.HIGH RISK: Target INR is 2.5-3.5 for patients with mechanical heart valves.RAD, ABDOMEN/KUB, 1 VIEW [id number] 08:13:00Reason for exam:->abdominal painFINAL REPORT INDICATION:Abdominal pain. COMPARISON: None. TECHNIQUE: Abdomen radiograph one view. FINDINGS / IMPRESSION:There is increase in stool burden in the mid abdomen. There is no evidence of bowel obstruction and there is no obvious free intraperitoneal air. There is suggestion of patchy sclerosis of both femoral heads. If there is clinical concern for early avascular necrosis, bilateral hip MRI is recommended. Signed: Blanca Olivier Verified Date/Time: 07/28 08:13:33 Reading Location: [facility] C013X Ortho Consult Reading Room TROPONIN [id number] 08:11:00 Test Item Value Reference Range Comments TROPONIN I (BEAKER) (test jmlx=124) 0.05 ng/mL 0.00-0.03 RAD, CHEST, 1 VIEW, NON [id number] 08:10:00Reason for exam:->chest painShould this be performed at the bedside?->YesFINAL REPORT RAD, CHEST, 1 VIEW, NON DEPT INDICATION: chest pain COMPARISON: Prior day's exam FINDINGS: Portable frontal view of the chest. IMPRESSION: Support Lines: None. Lungs and pleura: Clear lungs. No effusion. No pneumothorax.Heart and mediastinum: Unremarkable contours.Additional findings: None. Signed: JR Maya Robert MDReport Verified Date/Time: 07/28/2018 08:10:51 Reading Location: [facility] Radiology Reading Room BASIC METABOLIC [id number] 08:08:00 Test Item Value Reference Range Comments SODIUM (BEAKER) (test 146 meq/L 136-145 jspv=321) POTASSIUM (BEAKER) (test 3.4 meq/L 3.5-5.1 Specimen slightly utvb=836) hemolyzed CHLORIDE (BEAKER) (test 112 meq/L 98-107 vqlo=411) CO2 (BEAKER) (test 16 meq/L 22-29 gpek=916) BLOOD UREA NITROGEN 43 mg/dL 7-21 (BEAKER) (test pnby=222) CREATININE (BEAKER) (test 2.26 mg/dL 0.57-1.25 Specimen slightly ogli=969) hemolyzed GLUCOSE RANDOM (BEAKER) 165 mg/dL 70-105 (test cigu=104) CALCIUM (BEAKER) (test 9.4 mg/dL 8.4-10.2 ldbi=005) EGFR (BEAKER) (test 28 mL/min/1.73 sq m ESTIMATED GFR IS NOT ltzt=9016) ACCURATE CREATININE CLEARANCE IN PREDICTING GLOMERULAR FILTRATION RATE. ESTIMATED GFR IS NOT APPLICABLE FOR DIALYSIS PATIENTS. [id number] 08:04:00 Test Item Value Reference Range Comments LIPASE (BEAKER) (test chli=594) 12 U/L 8-78 HEPATIC FUNCTION [id number] 08:04:00 Test Item Value Reference Range Comments TOTAL PROTEIN (BEAKER) (test 9.1 gm/dL 6.0-8.3 Specimen slightly hemolyzed bgsu=739) ALBUMIN (BEAKER) (test 4.4 g/dL 3.5-5.0 Specimen slightly hemolyzed zhxy=6443) BILIRUBIN TOTAL (BEAKER) (test 0.3 mg/dL 0.2-1.2 Specimen slightly hemolyzed oqpr=409) BILIRUBIN DIRECT (BEAKER) (test 0.1 mg/dL 0.1-0.5 Specimen slightly hemolyzed vbra=235) ALKALINE PHOSPHATASE (BEAKER) 177 U/L 40-150 (test oufc=286) AST (SGOT) (BEAKER) (test 25 U/L 5-34 Specimen slightly hemolyzed urli=407) ALT (SGPT) (BEAKER) (test 12 U/L 6-55 Specimen slightly hemolyzed sant=358) COMPLEMENT COMPONENT [id number] 08:03:00 Test Item Value Reference Range Comments C4 COMPLEMENT (BEAKER) (test ghlq=011) 25 mg/dL 15-57 COMPLEMENT COMPONENT [id number] 08:03:00 Test Item Value Reference Range Comments C3 COMPLEMENT (BEAKER) (test jkta=211) 125 mg/dL 82-193 POCT-BLOOD GASES, [id number] 07:57:00 Test Item Value Reference Range Comments TEMP, CELSIUS-POC (BEAKER) 37.0 (test vwiv=4283) FIO2-POC (BEAKER) (test [address] q[address]) [place] [address] PH, ARTERIAL-POC (BEAKER) 7.416 7.350-7.450 (test mbhq=5902) PCO2, ARTERIAL-POC (BEAKER) 29.8 mm Hg 35.0-45.0 (test buwh=4387) PO2, ARTERIAL-POC (BEAKER) 123.0 mm Hg 80.0-90.0 (test aypj=4553) SO2, ARTERIAL-POC (BEAKER) 99.0 % 96.0-97.0 (test pytk=1935) HCO3, ARTERIAL-POC (BEAKER) 19.2 meq/L 21.0-29.0 (test ekqp=7058) BASE EXCESS, ARTERIAL-POC -5.0 meq/L -2.0-3.0 (BEAKER) (test vnfk=3880) [id number] 07:57:00 Test Item Value Reference Range Comments POC-SODIUM (BEAKER) (test 146 meq/L 135-148 TESTED AT [address] xitg=5843) [place] [address] [id number] 07:57:00 Test Item Value Reference Range Comments POC-POTASSIUM (BEAKER) (test 2.7 meq/L 3.6-5.5 TESTED AT [address] gsql=5001) [place] [address] [id number] 07:57:00 Test Item Value Reference Range Comments POC-GLUCOSE (BEAKER) (test 176 mg/dL 70-110 TESTED AT [address] hoql=2433) [place] [address] POCT-CALCIUM [id number] 07:57:00 Test Item Value Reference Range Comments POC-CALCIUM IONIZED (BEAKER) 1.15 mmol/L 1.12-1.27 TESTED AT [address] (test xzai=5478) [place] [address] [id number] 07:57:00 Test Item Value Reference Range Comments POC-HEMATOCRIT (BEAKER) (test 38 % 36-45 TESTED AT [address] jnio=3510) [place] [address] [id number] 07:57:00 Test Item Value Reference Range Comments POC-HEMOGLOBIN (BEAKER) 12.9 g/dL 12.0-15.0 TESTED AT [address] (test ktoh=4787) [place] [id number] AT [address] [address] POCT-LACTIC ACID, [id number] 07:57:00 Test Item Value Reference Range Comments POC-LACTIC ACID, VENOUS 3.3 mmol/L 0.9-1.7 TESTED AT [address] (BEAKER) (test ztmj=5372) [place] [id number] CBC W/PLT COUNT & AUTO [id number] 07:47:00 Test Item Value Reference Range Comments WHITE BLOOD CELL COUNT (BEAKER) (test rgpy=706) 9.6 K/ L 3.5-10.5 RED BLOOD CELL COUNT (BEAKER) (test rhpx=972) 4.78 M/ L 3.93-5.22 HEMOGLOBIN (BEAKER) (test kyif=576) 12.2 GM/DL 11.2-15.7 HEMATOCRIT (BEAKER) (test dmjj=998) 39.2 % 34.1-44.9 MEAN CORPUSCULAR VOLUME (BEAKER) (test tart=564) 82.0 fL 79.4-94.8 MEAN CORPUSCULAR HEMOGLOBIN (BEAKER) (test 25.5 pg 25.6-32.2 fcwj=558) MEAN CORPUSCULAR HEMOGLOBIN CONC (BEAKER) (test 31.1 GM/DL 32.2-35.5 josx=533) RED CELL DISTRIBUTION WIDTH (BEAKER) (test 14.2 % 11.7-14.4 ftad=120) PLATELET COUNT (BEAKER) (test vdij=593) 301 K/CU MM 150-450 MEAN PLATELET VOLUME (BEAKER) (test mrey=915) 8.8 fL 9.4-12.3 NUCLEATED RED BLOOD CELLS (BEAKER) (test 0 /100 WBC 0-0 leor=267) NEUTROPHILS RELATIVE PERCENT (BEAKER) (test 89 % ryft=485) LYMPHOCYTES RELATIVE PERCENT (BEAKER) (test 5 % xocg=664) MONOCYTES RELATIVE PERCENT (BEAKER) (test 5 % zmpp=840) EOSINOPHILS RELATIVE PERCENT (BEAKER) (test 0 % pmeb=054) BASOPHILS RELATIVE PERCENT (BEAKER) (test 0 % ofoa=644) NEUTROPHILS ABSOLUTE COUNT (BEAKER) (test 8.56 K/ L 1.56-6.13 tooj=393) LYMPHOCYTES ABSOLUTE COUNT (BEAKER) (test 0.52 K/ L 1.18-3.74 fosv=616) MONOCYTES ABSOLUTE COUNT (BEAKER) (test 0.46 K/ L 0.24-0.36 xqpz=762) EOSINOPHILS ABSOLUTE COUNT (BEAKER) (test 0.00 K/ L 0.04-0.36 cufj=382) BASOPHILS ABSOLUTE COUNT (BEAKER) (test 0.02 K/ L 0.01-0.08 vrab=181) IMMATURE GRANULOCYTES-RELATIVE PERCENT (BEAKER) 0 % 0-1 (test obru=6150)
[2019-01-16 19:09] LABS: Absolute Monocytes 0.7 K/uL (0.1-1.3); Basophils % 0.9 % (0-1.3); Eosinophils % 2.7 % (0-4.4); Hematocrit 36.7 % (36.0-45.0); Lymphocytes % 25.6 % (15.3-44.8); MPV 7.9 fL (7.6-11.3); Monocytes % 17.8 % (3.3-12.3); RBC Red Blood Cell Count 4.56 M/uL (3.86-4.86)
[2019-01-16] MEDS ORDERED: ONDANSETRON 4 MG/2 ML VIAL ONE (19:11)
[2019-01-16 19:28] LABS: Bilirubin Direct 0.1 mg/dL (0-0.2); Bilirubin Total 0.4 mg/dL (0.2-1.0); Potassium 3.3 mmol/L (3.5-5.1); Protein, Total 8.8 g/dL (6.4-8.2)
--- NOTE | 2019-01-16 19:54 | EDPHYS ---
Physician Documentation [facility] Name: Babs Younger Age: 48 yrs Sex: Female : 1970 Arrival Date: 01/16/2019 Time: 18:17 Bed 23 Private MD: ED Physician Chon Benton HPI: 01/16 19:50 This 48 yrs old Black Female presents to ER via EMS with complaints of Diarrhea. jr8 19:50 The patient presents to the emergency department with diarrhea. Onset: The jr8 symptoms/episode began/occurred gradually, 2 day(s) ago. Possible causes: antibiotics. The symptoms are aggravated by nothing. The symptoms are alleviated by nothing. Associated signs and symptoms: Pertinent positives: nausea. Severity of symptoms: At their worst the symptoms were mild in the emergency department the symptoms have resolved. It is unknown whether or not the patient has had similar symptoms in the past. The patient has been recently seen by a physician:. Patient stated that she was on ear drops and PO antibiotics for ear infection. Stated that after completing the antibiotics she had diarrhea for the past couple of days with nausea. No diarrhea today . 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 - Social history:: Smoking status: Patient/guardian denies using tobacco, Patient/guardian denies using alcohol, street drugs, IV drugs. - Ebola Screening: : No symptoms or risks identified at this time. ROS: 19:50 Eyes: Negative for injury, pain, redness, and discharge, ENT: Negative for injury, jr8 pain, and discharge, Neck: Negative for injury, pain, and swelling, Cardiovascular: Negative for chest pain, palpitations, and edema, Respiratory: Negative for shortness of breath, cough, wheezing, and pleuritic chest pain, Back: Negative for injury and pain, MS/Extremity: Negative for injury and deformity, Skin: Negative for injury, rash, and discoloration, Neuro: Negative for headache, weakness, numbness, tingling, and seizure. 19:50 Abdomen/GI: Positive for nausea, diarrhea, Negative for abdominal pain, vomiting, abdominal distension, anorexia, dysphagia, hematemesis, black/tarry stool, rectal pain, rectal bleeding, bowel incontinence, flatulence. Exam: 19:50 Eyes: Pupils equal round and reactive to light, extra-ocular motions intact. Lids and jr8 lashes normal. Conjunctiva and sclera are non-icteric and not injected. Cornea within normal limits. Periorbital areas with no swelling, redness, or edema. ENT: Nares patent. No nasal discharge, no septal abnormalities noted. Tympanic membranes are normal and external auditory canals are clear. Oropharynx with no redness, swelling, or masses, exudates, or evidence of obstruction, uvula midline. Mucous membranes moist. Neck: Trachea midline, no thyromegaly or masses palpated, and no cervical lymphadenopathy. Supple, full range of motion without nuchal rigidity, or vertebral point tenderness. No Meningismus. Cardiovascular: Regular rate and rhythm with a normal S1 and S2. No gallops, murmurs, or rubs. Normal PMI, no JVD. No pulse deficits. Respiratory: Lungs have equal breath sounds bilaterally, clear to auscultation and percussion. No rales, rhonchi or wheezes noted. No increased work of breathing, no retractions or nasal flaring. Abdomen/GI: Soft, non-tender, with normal bowel sounds. No distension or tympany. No guarding or rebound. No evidence of tenderness throughout. Back: No spinal tenderness. No costovertebral tenderness. Full range of motion. Skin: Warm, dry with normal turgor. Normal color with no rashes, no lesions, and no evidence of cellulitis. MS/ Extremity: Pulses equal, no cyanosis. Neurovascular intact. Full, normal range of motion. Neuro: Awake and alert, GCS 15, oriented to person, place, time, and situation. Cranial nerves II-XII grossly intact. Motor strength 5/5 in all extremities. Sensory grossly intact. Cerebellar exam normal. Normal gait. Vital Signs: 18:20 BP 180 / 99; Pulse 72; Resp 18; Temp 98.3(O); Pulse Ox 100% on R/A; Weight 85.28 kg; mg2 Height 5 ft. 2 in. (157.48 cm); Pain 5/10; 19:17 BP 144 / 88; Pulse 66; Resp 18; Temp 98; Pulse Ox 100% on R/A; mg2 20:07 BP 133 / 78; Pulse 70; Resp 18; Temp 98; Pulse Ox 100% on R/A; Pain 0/10; mg2 18:20 Body Mass Index 34.39 (85.28 kg, 157.48 cm) mg2 MDM: 18:45 Patient medically screened. jr8 19:51 Data reviewed: vital signs, nurses notes, lab test result(s), and as a result, I will jr8 discharge patient. Data interpreted: Pulse oximetry: on room air is 100 %. Interpretation: normal. Counseling: I had a detailed discussion with the patient and/or guardian regarding: the historical points, exam findings, and any diagnostic results supporting the discharge/admit diagnosis, lab results, the need for outpatient follow up, a family practitioner, a senior linux systems engineer, to return to the emergency department if symptoms worsen or persist or if there are any questions or concerns that arise at home. Response to treatment: the patient's symptoms have markedly improved after treatment. ED course: Nausea improved. No emergent lab finding noted. Abdomen soft non tender with palpation. Colostomy without abnormality. No pippa blood, diarrhea, or tarry stool noted in bag. Will have patient f/u in the next couple of days. If worse to come back. Patient good with this plan . 01/16 18:49 Order name: Basic Metabolic Panel; Complete Time: 19:44 01/16 18:49 Order name: CBC with Diff; Complete Time: 19:28 01/16 18:49 Order name: Creatinine for Radiology; Complete Time: 19:28 01/16 18:49 Order name: Hepatic Function; Complete Time: 19:44 01/16 18:49 Order name: Lipase; Complete Time: 19:44 01/16 18:49 Order name: IV Saline Lock; Complete Time: 18:56 01/16 18:49 Order name: Labs collected and sent; Complete Time: 18:56 01/16 18:50 Order name: EKG - Nurse/Tech; Complete Time: 18:50 Administered Medications: 19:17 Drug: Zofran 4 mg Route: IVP; Site: left hand; mg2 20:00 Follow up: Response: No adverse reaction; Marked relief of symptoms mg2 20:07 Drug: Potassium Chloride 40 mEq Route: PO; mg2 20:07 Follow up: Response: No adverse reaction; Medication administered at discharge. mg2 Disposition: 01/16/19 19:53 Discharged to Home. Impression: Nausea, Diarrhea, unspecified. - Condition is Stable. - Discharge Instructions: Diarrhea, Adult, Nausea, Adult. - Prescriptions for Zofran 4 mg Oral Tablet - take 1 tablet by ORAL route every 12 hours As needed; 20 tablet. - Medication Reconciliation Form, Thank You Letter, Antibiotic Education, Prescription Opioid Use form. - Follow up: Private Physician; When: 2 - 3 days; Reason: Recheck today's complaints, Continuance of care, Re-evaluation by your physician. - Problem is new. - Symptoms have improved. Signatures: Dispatcher [employer] EDMS Tanner Horowitz PA PA jr8 Mando Brewer RN RN mg2 Corrections: (The following items were deleted from the chart) 20:13 19:53 01/16/2019 19:53 Discharged to Home. Impression: Nausea; Diarrhea, unspecified. mg2 Condition is Stable. Forms are Medication Reconciliation Form, Thank You Letter, Antibiotic Education, Prescription Opioid Use. Follow up: Private Physician; When: 2 - 3 days; Reason: Recheck today's complaints, Continuance of care, Re-evaluation by your physician. Problem is new. Symptoms have improved. jrKim
--- NOTE | 2019-01-16 19:54 | ER ---
Nurse's Notes [facility] Name: Babs Younger Age: 48 yrs Sex: Female : 1970 Arrival Date: 01/16/2019 Time: 18:17 Bed 23 Private MD: Diagnosis: Nausea;Diarrhea, unspecified Presentation: 01/16 18:17 Presenting complaint: EMS states: patient had ear infection 2 weeks ago and started on mg2 otic drops and po antibiotic. she started to have diarrhea and vomiting since then. she has a colostomy bag also reported on and off chest pain today started 3 hours ago and was given 324 mg aspirin. pain subsided from 7-5/10. BGL- 126 mg/dl, BP was high \T\ 180/110. Transition of care: patient was not received from another setting of care. Onset of symptoms was December 2018. Risk Assessment: Do you want to hurt yourself or someone else? Patient reports no desire to harm self or others. Initial Sepsis Screen: Does the patient meet any 2 criteria? No. Patient's initial sepsis screen is negative. Does the patient have a suspected source of infection? No. Patient's initial sepsis screen is negative. Care prior to arrival: Medication(s) given: ASA, 325 mg. 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 - Social history:: Smoking status: Patient/guardian denies using tobacco, Patient/guardian denies using alcohol, street drugs, IV drugs. - Ebola Screening: : No symptoms or risks identified at this time. Screenin:18 Abuse screen: Denies threats or abuse. Denies injuries from another. Nutritional mg2 screening: No deficits noted. Tuberculosis screening: No symptoms or risk factors identified. Fall Risk IV access (20 points). Assessment: 19:34 General: Appears in no apparent distress. comfortable, Behavior is calm, cooperative. mg2 Pain: Complains of pain in chest Pain does not radiate. Pain currently is 1 out of 10 on a pain scale. Quality of pain is described as aching, Pain began gradually, 4 hours ago. Is intermittent. Neuro: Level of Consciousness is awake, alert, obeys commands, Oriented to person, place, time, situation. Cardiovascular: Capillary refill < 3 seconds Patient's skin is warm and dry. Respiratory: Airway is patent Respiratory effort is even, unlabored, Respiratory pattern is regular, symmetrical. GI: Reports diarrhea, vomiting. : No signs and/or symptoms were reported regarding the genitourinary system. EENT: No signs and/or symptoms were reported regarding the EENT system. Derm: Skin is intact, is healthy with good turgor, Skin is pink, warm \T\ dry. normal. Musculoskeletal: Circulation, motion, and sensation intact. Capillary refill < 3 seconds. Vital Signs: 18:20 BP 180 / 99; Pulse 72; Resp 18; Temp 98.3(O); Pulse Ox 100% on R/A; Weight 85.28 kg; mg2 Height 5 ft. 2 in. (157.48 cm); Pain 5/10; 19:17 BP 144 / 88; Pulse 66; Resp 18; Temp 98; Pulse Ox 100% on R/A; mg2 20:07 BP 133 / 78; Pulse 70; Resp 18; Temp 98; Pulse Ox 100% on R/A; Pain 0/10; mg2 18:20 Body Mass Index 34.39 (85.28 kg, 157.48 cm) mg2 ED Course: 18:17 Patient arrived in ED. mg2 18:20 Triage completed. mg2 18:39 Mando Brewer RN is Primary Nurse. mg2 18:44 [facility] jr8 18:45 Chon Benton MD is Attending Physician. jr8 19:18 No provider procedures requiring assistance completed. Inserted saline lock: 22 gauge mg2 in left hand, using aseptic technique. Blood collected. 19:18 Patient has correct armband on for positive identification. Pulse ox on. NIBP on. Door mg2 closed. Warm blanket given. 19:30 Arm band placed on. mg2 20:08 IV discontinued, intact, bleeding controlled, No redness/swelling at site. Pressure mg2 dressing applied. Administered Medications: 19:17 Drug: Zofran 4 mg Route: IVP; Site: left hand; mg2 20:00 Follow up: Response: No adverse reaction; Marked relief of symptoms mg2 20:07 Drug: Potassium Chloride 40 mEq Route: PO; mg2 20:07 Follow up: Response: No adverse reaction; Medication administered at discharge. mg2 Outcome: 19:53 Discharge ordered by MD. marie 20:08 Discharged to home ambulatory. mg2 20:08 Condition: stable 20:08 Discharge instructions given to patient, Instructed on discharge instructions, follow up and referral plans. medication usage, Demonstrated understanding of instructions, follow-up care, medications, Prescriptions given X 1. 20:13 Patient left the ED. mg2 Signatures: Tanner Horowitz PA PA jr8 Mando Brewer, RN RN mg2
[2019-01-16] MEDS ORDERED: POTASSIUM CL SA 10 MEQ TAB PO ONE (20:15)
[2019-01-16 20:34] VITALS: BP 133/78; TEMP 98; O2SAT 100
--- NOTE | 2019-01-17 10:30 | EKG ---
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
== END 2019-01-16 20:13 | disposition home or self-care (01) ==
LOC: ER 18:11
DX: R19.7 Diarrhea, unspecified (principal); R11.0 Nausea; Z88.6 Allergy status to analgesic agent
CPT/HCPCS: 93005; 85025; 80048; 36415; 80076; 83690; 96374; 99284; J2405

== ENCOUNTER 2019-08-02 14:13 | Observation (INO) | payer OTHER ==
--- OUTSIDE RECORDS SUMMARY | 2019-08-02 14:17 | XMS REPORT ---
:1970 [facility] [address] [place] [address] Care Team Providers Name Role Phone ABEL LI Unavailable Unavailable Problems This patient has no known problems. Allergies, Adverse Reactions, Alerts This patient has no known allergies or adverse reactions. Medications This patient has no known medications. Results Test Description Test Time Test Comments Text Results Atomic Results Result Comments BLOOD CULTURE 2018-08-02 17:01:00 Test Item Value Reference Range Comments CULTURE (BEAKER) (test brpp=9596) No growth in 5 days LUPUS ANTICOAGULANT SCREEN WITH REFLEX TO [id number] 16:08:00 Test Item Value Reference Range Comments DRVV SCREEN RATIO (BEAKER) 1.55 <1.20 (test alzc=2690) DRVV CONFIRM RATIO (test 0.93 fbsh=3391) DRVV NORMALIZED RATIO (test 1.67 <1.20 qocz=4813) DRVV INTERPRETATION (BEAKER) Positive screen for Lupus (test enyk=3723) Anticoagulant with hexagonal phospholipid confirmation. Suggest repeat testing in 12 weeks and when patient not receiving anticoagulant therapy. PROTIME (BEAKER) (test 15.0 seconds 11.7-14.7 uptf=791) INR (BEAKER) (test qpwu=089) 1.2 <=5.9 PARTIAL THROMBOPLASTIN TIME 36.1 seconds 22.5-36.0 (BEAKER) (test iizh=210) PTT-LA (BEAKER) (test 45.2 32.0-41.8 bkoh=[id number]) DGQU-STYPPULBZIT-135 (BEAKER) Cindy Chavira MD (test qoyk=3564) (electronic signature) HEXAGONAL [id number] 14:08:00 Test Item Value Reference Range Comments HEXAGONAL PHOSPHOLIPID (BEAKER) (test hkgb=3291) Positive BLOOD [id number] 10:01:00 Test Item Value Reference Range Comments CULTURE (BEAKER) (test iwwz=7714) No growth in 5 days DOUBLE-STRANDED DNA (DSDNA) [id number] 05:52:00 Test Item Value Reference Range Comments ANTI-DNA DS (BEAKER) (test lcba=8644) Negative CARDIOLIPIN ANTIBODIES, IGG AND [id number] 15:01:00 Test Item Value Reference Range Comments ANTICARDIOLIPIN IGG ANTIBODY (BEAKER) (test < GPL <20.0 fmel=194) ANTICARDIOLIPIN IGM ANTIBODY (BEAKER) (test 2.1 MPL <20.0 bads=983) Anticardiolipin IgG Result Interpretation: <20.0 GPL Normal>/=20.0 GPL PositiveAnticardiolipin IgM Result Interpretation: <20.0 MPL Normal>/= 20.0 MPL PositiveCALCIUM, [id number] 05:12:00 Test Item Value Reference Range Comments CALCIUM IONIZED (BEAKER) (test aqik=881) 1.01 mmol/L 1.12-1.27 PH, BLOOD (BEAKER) (test svew=0289) 7.45 POCT-GLUCOSE [id number] 21:30:00 Test Item Value Reference Range Comments POC-GLUCOSE METER (BEAKER) 116 mg/dL 70-110 TESTED AT [address] (test qqlj=0284) [place] [address] POCT-GLUCOSE [id number] 17:32:00 Test Item Value Reference Range Comments POC-GLUCOSE METER (BEAKER) 125 mg/dL 70-110 TESTED AT [address] (test okfn=5369) [place] [id number] POCT-GLUCOSE [id number] 11:28:00 Test Item Value Reference Range Comments POC-GLUCOSE METER (BEAKER) 115 mg/dL 70-110 TESTED AT [address] (test duwo=7534) [place] [address] POCT-GLUCOSE [id number] 07:41:00 Test Item Value Reference Range Comments POC-GLUCOSE METER (BEAKER) 108 mg/dL 70-110 TESTED AT [address] (test onyd=1392) [place] [address] [id number] 07:06:00 Test Item Value Reference Range Comments MAGNESIUM (BEAKER) (test 1.8 mg/dL 1.6-2.6 Specimen slightly hemolyzed nwqq=823) [id number] 07:06:00 Test Item Value Reference Range Comments PHOSPHORUS (BEAKER) (test 2.4 mg/dL 2.3-4.7 Specimen slightly hemolyzed wfxp=853) COMPREHENSIVE METABOLIC [id number] 07:06:00 Test Item Value Reference Range Comments TOTAL PROTEIN (BEAKER) 7.5 gm/dL 6.0-8.3 Specimen slightly (test guuv=063) hemolyzed ALBUMIN (BEAKER) (test 3.7 g/dL 3.5-5.0 Specimen slightly qsxg=3568) hemolyzed ALKALINE PHOSPHATASE 118 U/L 40-150 (BEAKER) (test oodl=828) BILIRUBIN TOTAL (BEAKER) 0.6 mg/dL 0.2-1.2 Specimen slightly (test eipv=220) hemolyzed SODIUM (BEAKER) (test 141 meq/L 136-145 kuid=797) POTASSIUM (BEAKER) (test 3.3 meq/L 3.5-5.1 Specimen slightly vtpf=688) hemolyzed CHLORIDE (BEAKER) (test 112 meq/L 98-107 bcop=856) CO2 (BEAKER) (test 20 meq/L 22-29 xpox=098) BLOOD UREA NITROGEN 17 mg/dL 7-21 (BEAKER) (test lpxr=520) CREATININE (BEAKER) (test 1.53 mg/dL 0.57-1.25 Specimen slightly gbmj=664) hemolyzed GLUCOSE RANDOM (BEAKER) 102 mg/dL 70-105 (test zpon=339) CALCIUM (BEAKER) (test 9.0 mg/dL 8.4-10.2 dbdt=045) AST (SGOT) (BEAKER) (test 30 U/L 5-34 Specimen slightly sits=238) hemolyzed ALT (SGPT) (BEAKER) (test 12 U/L 6-55 Specimen slightly jgfu=957) hemolyzed EGFR (BEAKER) (test 44 mL/min/1.73 sq m ESTIMATED GFR IS NOT wwrj=3220) ACCURATE CREATININE CLEARANCE IN PREDICTING GLOMERULAR FILTRATION RATE. ESTIMATED GFR IS NOT APPLICABLE FOR DIALYSIS PATIENTS. HEPATIC FUNCTION [id number] 07:06:00 Test Item Value Reference Range Comments TOTAL PROTEIN (BEAKER) (test 7.5 gm/dL 6.0-8.3 Specimen slightly hemolyzed ywnf=709) ALBUMIN (BEAKER) (test 3.7 g/dL 3.5-5.0 Specimen slightly hemolyzed livs=2203) BILIRUBIN TOTAL (BEAKER) (test 0.6 mg/dL 0.2-1.2 Specimen slightly hemolyzed zfar=581) BILIRUBIN DIRECT (BEAKER) (test 0.3 mg/dL 0.1-0.5 Specimen slightly hemolyzed woao=095) ALKALINE PHOSPHATASE (BEAKER) 118 U/L 40-150 (test ccvd=236) AST (SGOT) (BEAKER) (test 30 U/L 5-34 Specimen slightly hemolyzed mppo=407) ALT (SGPT) (BEAKER) (test 12 U/L 6-55 Specimen slightly hemolyzed wiqk=063) CALCIUM, [id number] 06:42:00 Test Item Value Reference Range Comments CALCIUM IONIZED (BEAKER) (test buyh=130) 1.16 mmol/L 1.12-1.27 PH, BLOOD (BEAKER) (test qrkn=7770) 7.42 CBC W/PLT COUNT & AUTO [id number] 05:10:00 Test Item Value Reference Range Comments WHITE BLOOD CELL COUNT (BEAKER) (test rhld=927) 5.9 K/ L 3.5-10.5 RED BLOOD CELL COUNT (BEAKER) (test tcfi=497) 3.45 M/ L 3.93-5.22 HEMOGLOBIN (BEAKER) (test gvoi=775) 9.1 GM/DL 11.2-15.7 HEMATOCRIT (BEAKER) (test ybae=030) 28.8 % 34.1-44.9 MEAN CORPUSCULAR VOLUME (BEAKER) (test ndse=352) 83.5 fL 79.4-94.8 MEAN CORPUSCULAR HEMOGLOBIN (BEAKER) (test 26.4 pg 25.6-32.2 rgtt=608) MEAN CORPUSCULAR HEMOGLOBIN CONC (BEAKER) (test 31.6 GM/DL 32.2-35.5 lrss=287) RED CELL DISTRIBUTION WIDTH (BEAKER) (test 14.4 % 11.7-14.4 cbeg=856) PLATELET COUNT (BEAKER) (test ohwr=020) 220 K/CU MM 150-450 MEAN PLATELET VOLUME (BEAKER) (test bkcc=472) 9.7 fL 9.4-12.3 NUCLEATED RED BLOOD CELLS (BEAKER) (test 0 /100 WBC 0-0 ugwi=021) NEUTROPHILS RELATIVE PERCENT (BEAKER) (test 53 % ithq=373) LYMPHOCYTES RELATIVE PERCENT (BEAKER) (test 25 % ovff=346) MONOCYTES RELATIVE PERCENT (BEAKER) (test 14 % meiw=227) EOSINOPHILS RELATIVE PERCENT (BEAKER) (test 8 % qytc=250) BASOPHILS RELATIVE PERCENT (BEAKER) (test 1 % vgry=432) NEUTROPHILS ABSOLUTE COUNT (BEAKER) (test 3.09 K/ L 1.56-6.13 xlnk=350) LYMPHOCYTES ABSOLUTE COUNT (BEAKER) (test 1.46 K/ L 1.18-3.74 jkya=252) MONOCYTES ABSOLUTE COUNT (BEAKER) (test 0.79 K/ L 0.24-0.36 spwp=161) EOSINOPHILS ABSOLUTE COUNT (BEAKER) (test 0.46 K/ L 0.04-0.36 ofhm=275) BASOPHILS ABSOLUTE COUNT (BEAKER) (test 0.05 K/ L 0.01-0.08 torb=004) IMMATURE GRANULOCYTES-RELATIVE PERCENT (BEAKER) 0 % 0-1 (test hode=9309) POCT-GLUCOSE [id number] 23:12:00 Test Item Value Reference Range Comments POC-GLUCOSE METER (BEAKER) 95 mg/dL 70-110 TESTED AT [address] (test ypjq=2095) [place] [id number] POCT-GLUCOSE [id number] 18:51:00 Test Item Value Reference Range Comments POC-GLUCOSE METER (BEAKER) 118 mg/dL 70-110 TESTED AT [address] (test weym=6795) [place] [id number] HEMOGLOBIN AND [id number] 16:28:00 Test Item Value Reference Range Comments HEMOGLOBIN (BEAKER) (test lpsn=499) 8.7 GM/DL 11.2-15.7 HEMATOCRIT (BEAKER) (test kbqn=074) 27.8 % 34.1-44.9 POCT-GLUCOSE [id number] 15:00:00 Test Item Value Reference Range Comments POC-GLUCOSE METER (BEAKER) 140 mg/dL 70-110 TESTED AT [address] (test hxxm=1280) [facility] [address] POCT-GLUCOSE [id number] 14:46:00 Test Item Value Reference Range Comments POC-GLUCOSE METER (BEAKER) 44 mg/dL 70-110 Notified LUIS WALTER/TESTED AT [facility] (test ixal=0158) [address] [place] [address] POCT-GLUCOSE [id number] 13:05:00 Test Item Value Reference Range Comments POC-GLUCOSE METER (BEAKER) 87 mg/dL 70-110 TESTED AT [address] (test cepy=6106) [facility] [address] POCT-GLUCOSE [id number] 11:57:00 Test Item Value Reference Range Comments POC-GLUCOSE METER (BEAKER) 65 mg/dL 70-110 Notified LUIS WALTER/TESTED AT [facility] (test lkua=5086) [address] [place], [place] [id number] VANCOMYCIN LEVEL, [id number] 10:58:00 Test Item Value Reference Range Comments VANCOMYCIN TROUGH (BEAKER) (test nrej=430) 14.2 ug/mL 10.0-20.0 RAD, ABDOMEN/KUB, 1 VIEW [id number] 09:41:00Reason for exam:->abdominal painFINAL REPORT AP abdomen, two images HISTORY: Abdominal pain COMPARISON: 07/28/2013 IMPRESSION:Grossly nonobstructive bowel gas pattern. Intact skeleton. Signed: Vikas Guillen MDReport Verified Date/ Time: 07/30/2018 09:41:59 Reading Location: [facility] B1 [id number] Ortho Consult ReadingRoom Electronically signed by: VIKAS GUILLEN M.D. on 2017 09:41 AMPOCT-GLUCOSE [id number] 07:59:00 Test Item Value Reference Range Comments POC-GLUCOSE METER (BEAKER) 87 mg/dL 70-110 TESTED AT [address] (test glmy=3659) [facility] [address] CALCIUM, [id number] 06:53:00 Test Item Value Reference Range Comments CALCIUM IONIZED (BEAKER) (test nxfa=806) 1.12 mmol/L 1.12-1.27 PH, BLOOD (BEAKER) (test cdsl=3161) 7.44 [id number] 06:38:00 Test Item Value Reference Range Comments PHOSPHORUS (BEAKER) (test nyla=098) 2.7 mg/dL 2.3-4.7 [id number] 06:38:00 Test Item Value Reference Range Comments MAGNESIUM (BEAKER) (test ybsy=864) 1.6 mg/dL 1.6-2.6 HEPATIC FUNCTION [id number] 06:38:00 Test Item Value Reference Range Comments TOTAL PROTEIN (BEAKER) (test quzd=920) 6.8 gm/dL 6.0-8.3 ALBUMIN (BEAKER) (test voeq=4805) 3.4 g/dL 3.5-5.0 BILIRUBIN TOTAL (BEAKER) (test gauu=022) 0.5 mg/dL 0.2-1.2 BILIRUBIN DIRECT (BEAKER) (test lsam=329) 0.2 mg/dL 0.1-0.5 ALKALINE PHOSPHATASE (BEAKER) (test eedx=235) 118 U/L 40-150 AST (SGOT) (BEAKER) (test qkuh=150) 22 U/L 5-34 ALT (SGPT) (BEAKER) (test zwvx=445) 9 U/L 6-55 COMPREHENSIVE METABOLIC [id number] 06:38:00 Test Item Value Reference Range Comments TOTAL PROTEIN (BEAKER) 6.8 gm/dL 6.0-8.3 (test wwkv=314) ALBUMIN (BEAKER) (test 3.4 g/dL 3.5-5.0 irgt=9816) ALKALINE PHOSPHATASE 118 U/L 40-150 (BEAKER) (test lsoh=171) BILIRUBIN TOTAL (BEAKER) 0.5 mg/dL 0.2-1.2 (test fokl=998) SODIUM (BEAKER) (test 138 meq/L 136-145 zgqt=368) POTASSIUM (BEAKER) (test 3.3 meq/L 3.5-5.1 opre=926) CHLORIDE (BEAKER) (test 111 meq/L 98-107 toky=453) CO2 (BEAKER) (test 18 meq/L 22-29 guiy=959) BLOOD UREA NITROGEN 29 mg/dL 7-21 (BEAKER) (test vidb=536) CREATININE (BEAKER) (test 1.79 mg/dL 0.57-1.25 uuwp=645) GLUCOSE RANDOM (BEAKER) 86 mg/dL 70-105 (test dpkl=907) CALCIUM (BEAKER) (test 8.6 mg/dL 8.4-10.2 fqdg=689) AST (SGOT) (BEAKER) (test 22 U/L 5-34 swjo=596) ALT (SGPT) (BEAKER) (test 9 U/L 6-55 ztpx=420) EGFR (BEAKER) (test 37 mL/min/1.73 sq m ESTIMATED GFR IS NOT aqst=3696) ACCURATE CREATININE CLEARANCE IN PREDICTING GLOMERULAR FILTRATION RATE. ESTIMATED GFR IS NOT APPLICABLE FOR DIALYSIS PATIENTS. CBC W/PLT COUNT & AUTO [id number] 06:11:00 Test Item Value Reference Range Comments WHITE BLOOD CELL COUNT (BEAKER) (test cqis=911) 7.6 K/ L 3.5-10.5 RED BLOOD CELL COUNT (BEAKER) (test oszb=613) 3.60 M/ L 3.93-5.22 HEMOGLOBIN (BEAKER) (test rnjt=164) 9.4 GM/DL 11.2-15.7 HEMATOCRIT (BEAKER) (test atqs=661) 30.1 % 34.1-44.9 MEAN CORPUSCULAR VOLUME (BEAKER) (test eahk=237) 83.6 fL 79.4-94.8 MEAN CORPUSCULAR HEMOGLOBIN (BEAKER) (test 26.1 pg 25.6-32.2 zsvp=321) MEAN CORPUSCULAR HEMOGLOBIN CONC (BEAKER) (test 31.2 GM/DL 32.2-35.5 ahnw=782) RED CELL DISTRIBUTION WIDTH (BEAKER) (test 14.6 % 11.7-14.4 xkle=072) PLATELET COUNT (BEAKER) (test dxul=563) 221 K/CU MM 150-450 MEAN PLATELET VOLUME (BEAKER) (test gfhu=655) 9.7 fL 9.4-12.3 NUCLEATED RED BLOOD CELLS (BEAKER) (test 0 /100 WBC 0-0 ebvw=330) NEUTROPHILS RELATIVE PERCENT (BEAKER) (test 66 % srzp=395) LYMPHOCYTES RELATIVE PERCENT (BEAKER) (test 18 % tzyf=136) MONOCYTES RELATIVE PERCENT (BEAKER) (test 12 % oknc=636) EOSINOPHILS RELATIVE PERCENT (BEAKER) (test 3 % wrio=789) BASOPHILS RELATIVE PERCENT (BEAKER) (test 1 % ewyw=543) NEUTROPHILS ABSOLUTE COUNT (BEAKER) (test 5.00 K/ L 1.56-6.13 vpgn=412) LYMPHOCYTES ABSOLUTE COUNT (BEAKER) (test 1.35 K/ L 1.18-3.74 mvkn=510) MONOCYTES ABSOLUTE COUNT (BEAKER) (test 0.87 K/ L 0.24-0.36 mims=245) EOSINOPHILS ABSOLUTE COUNT (BEAKER) (test 0.22 K/ L 0.04-0.36 ksue=119) BASOPHILS ABSOLUTE COUNT (BEAKER) (test 0.07 K/ L 0.01-0.08 zpfp=374) IMMATURE GRANULOCYTES-RELATIVE PERCENT (BEAKER) 1 % 0-1 (test jrjv=3232) POCT-GLUCOSE [id number] 21:38:00 Test Item Value Reference Range Comments POC-GLUCOSE METER (BEAKER) 96 mg/dL 70-110 TESTED AT [address] (test cbkx=9552) [place] [address] POCT-GLUCOSE [id number] 18:19:00 Test Item Value Reference Range Comments POC-GLUCOSE METER (BEAKER) 121 mg/dL 70-110 TESTED AT [address] (test msfx=9355) [place] [address] T4, [id number] 12:35:00 Test Item Value Reference Range Comments FREE T4 (BEAKER) (test qhgy=298) 1.25 ng/dL 0.70-1.48 POCT-GLUCOSE [id number] 12:27:00 Test Item Value Reference Range Comments POC-GLUCOSE METER (BEAKER) 127 mg/dL 70-110 TESTED AT [address] (test qwdp=6422) [place] [address] TSH/FREE T4 IF [id number] 12:07:00 Test Item Value Reference Range Comments THYROID STIMULATING HORMONE (BEAKER) (test 0.25 uIU/mL 0.35-4.94 owty=906) [id number] 12:07:00 Test Item Value Reference Range Comments THYROID STIMULATING HORMONE (BEAKER) (test 0.25 uIU/mL 0.35-4.94 vpib=120) LACTIC ACID, VENOUS, WHOLE [id number] 11:35:00 Test Item Value Reference Range Comments LACTATE BLOOD VENOUS (2) 0.6 mmol/L 0.5-2.2 Specimen slightly hemolyzed (BEAKER) (test hkit=4802) VANCOMYCIN LEVEL, [id number] 07:11:00 Test Item Value Reference Range Comments VANCOMYCIN RANDOM (BEAKER) (test avfy=915) 17.9 ug/mL Reference Range: No [id number] 07:09:00 Test Item Value Reference Range Comments PHOSPHORUS (BEAKER) (test xfpr=696) 3.9 mg/dL 2.3-4.7 [id number] 07:09:00 Test Item Value Reference Range Comments MAGNESIUM (BEAKER) (test uwfj=654) 1.7 mg/dL 1.6-2.6 BASIC METABOLIC [id number] 07:09:00 Test Item Value Reference Range Comments SODIUM (BEAKER) (test 143 meq/L 136-145 cgii=516) POTASSIUM (BEAKER) (test 3.3 meq/L 3.5-5.1 blbm=907) CHLORIDE (BEAKER) (test 116 meq/L 98-107 ylnb=748) CO2 (BEAKER) (test 16 meq/L 22-29 uybt=069) BLOOD UREA NITROGEN 39 mg/dL 7-21 (BEAKER) (test lnpe=717) CREATININE (BEAKER) (test 2.09 mg/dL 0.57-1.25 micm=655) GLUCOSE RANDOM (BEAKER) 121 mg/dL 70-105 (test vzzp=264) CALCIUM (BEAKER) (test 8.6 mg/dL 8.4-10.2 ghfk=641) EGFR (BEAKER) (test 31 mL/min/1.73 sq m ESTIMATED GFR IS NOT gxnn=7597) ACCURATE CREATININE CLEARANCE IN PREDICTING GLOMERULAR FILTRATION RATE. ESTIMATED GFR IS NOT APPLICABLE FOR DIALYSIS PATIENTS. HEPATIC FUNCTION [id number] 07:09:00 Test Item Value Reference Range Comments TOTAL PROTEIN (BEAKER) (test ombh=867) 7.0 gm/dL 6.0-8.3 ALBUMIN (BEAKER) (test jodo=9211) 3.4 g/dL 3.5-5.0 BILIRUBIN TOTAL (BEAKER) (test akvg=371) 0.4 mg/dL 0.2-1.2 BILIRUBIN DIRECT (BEAKER) (test obuf=347) 0.2 mg/dL 0.1-0.5 ALKALINE PHOSPHATASE (BEAKER) (test queq=454) 131 U/L 40-150 AST (SGOT) (BEAKER) (test jxqf=502) 20 U/L 5-34 ALT (SGPT) (BEAKER) (test kvlv=903) 10 U/L 6-55 TROPONIN [id number] 06:54:00 Test Item Value Reference Range Comments TROPONIN I (BEAKER) (test ysyt=251) 0.08 ng/mL 0.00-0.03 LACTIC ACID, VENOUS, WHOLE [id number] 06:45:00 Test Item Value Reference Range Comments LACTATE BLOOD VENOUS (2) 0.8 mmol/L 0.5-2.2 Specimen slightly hemolyzed (BEAKER) (test idgf=9243) CBC W/PLT COUNT & AUTO [id number] 06:00:00 Test Item Value Reference Range Comments WHITE BLOOD CELL COUNT (BEAKER) (test xwhj=030) 7.4 K/ L 3.5-10.5 RED BLOOD CELL COUNT (BEAKER) (test fwtv=852) 4.02 M/ L 3.93-5.22 HEMOGLOBIN (BEAKER) (test yjlr=576) 10.6 GM/DL 11.2-15.7 HEMATOCRIT (BEAKER) (test jmxh=158) 33.3 % 34.1-44.9 MEAN CORPUSCULAR VOLUME (BEAKER) (test ehrf=365) 82.8 fL 79.4-94.8 MEAN CORPUSCULAR HEMOGLOBIN (BEAKER) (test 26.4 pg 25.6-32.2 vtrl=920) MEAN CORPUSCULAR HEMOGLOBIN CONC (BEAKER) (test 31.8 GM/DL 32.2-35.5 lvou=099) RED CELL DISTRIBUTION WIDTH (BEAKER) (test 14.6 % 11.7-14.4 futu=550) PLATELET COUNT (BEAKER) (test parv=812) 267 K/CU MM 150-450 MEAN PLATELET VOLUME (BEAKER) (test gjqk=706) 9.7 fL 9.4-12.3 NUCLEATED RED BLOOD CELLS (BEAKER) (test 0 /100 WBC 0-0 chzx=010) NEUTROPHILS RELATIVE PERCENT (BEAKER) (test 69 % mjtb=289) LYMPHOCYTES RELATIVE PERCENT (BEAKER) (test 15 % ifxm=449) MONOCYTES RELATIVE PERCENT (BEAKER) (test 15 % inff=400) EOSINOPHILS RELATIVE PERCENT (BEAKER) (test 0 % pjcz=291) BASOPHILS RELATIVE PERCENT (BEAKER) (test 0 % cxaw=935) NEUTROPHILS ABSOLUTE COUNT (BEAKER) (test 5.14 K/ L 1.56-6.13 plkg=635) LYMPHOCYTES ABSOLUTE COUNT (BEAKER) (test 1.12 K/ L 1.18-3.74 bvil=294) MONOCYTES ABSOLUTE COUNT (BEAKER) (test 1.12 K/ L 0.24-0.36 ovnx=767) EOSINOPHILS ABSOLUTE COUNT (BEAKER) (test 0.01 K/ L 0.04-0.36 reud=621) BASOPHILS ABSOLUTE COUNT (BEAKER) (test 0.03 K/ L 0.01-0.08 hejn=797) IMMATURE GRANULOCYTES-RELATIVE PERCENT (BEAKER) 0 % 0-1 (test uggh=3249) CALCIUM, [id number] 05:58:00 Test Item Value Reference Range Comments CALCIUM IONIZED (BEAKER) (test izth=223) 1.12 mmol/L 1.12-1.27 PH, BLOOD (BEAKER) (test gbil=2828) 7.39 EOSINOPHIL SMEAR, [id number] 20:17:00 Test Item Value Reference Range Comments EOSINOPHIL SMEAR, URINE (BEAKER) (test No EOS seen No EOS seen akmi=5937) BASIC METABOLIC [id number] 20:01:00 Test Item Value Reference Range Comments SODIUM (BEAKER) (test 144 meq/L 136-145 hdes=096) POTASSIUM (BEAKER) (test 3.2 meq/L 3.5-5.1 oogc=980) CHLORIDE (BEAKER) (test 114 meq/L 98-107 ubft=883) CO2 (BEAKER) (test 18 meq/L 22-29 qelc=664) BLOOD UREA NITROGEN 42 mg/dL 7-21 (BEAKER) (test xoba=975) CREATININE (BEAKER) (test 2.14 mg/dL 0.57-1.25 tjtc=884) GLUCOSE RANDOM (BEAKER) 141 mg/dL 70-105 (test mpze=504) CALCIUM (BEAKER) (test 8.9 mg/dL 8.4-10.2 wfav=475) EGFR (BEAKER) (test 30 mL/min/1.73 sq m ESTIMATED GFR IS NOT mzgj=9039) ACCURATE CREATININE CLEARANCE IN PREDICTING GLOMERULAR FILTRATION RATE. ESTIMATED GFR IS NOT APPLICABLE FOR DIALYSIS PATIENTS. LACTIC ACID, VENOUS, WHOLE [id number] 19:59:00 Test Item Value Reference Range Comments LACTATE BLOOD VENOUS (2) 0.8 mmol/L 0.5-2.2 Specimen slightly hemolyzed (BEAKER) (test nhxm=2624) CT, BRAIN/STROKE [id number] 19:59:00Stroke Protocol. Phone/Page MD for reporting.Reason for [...] Huerta Verified Date/Time: 2017 19:59:01 Reading Location: [facility] Radiology Reading Room [id number] 19:51:00 Test Item Value Reference Range Comments PARTIAL THROMBOPLASTIN TIME (BEAKER) (test 33.1 seconds 22.5-36.0 pwra=119) PROTHROMBIN TIME/[id number] 19:50:00 Test Item Value Reference Range Comments PROTIME (BEAKER) (test mujb=651) 15.6 seconds 11.7-14.7 INR (BEAKER) (test qidd=847) 1.2 <=5.9 RECOMMENDED COUMADIN/WARFARIN INR THERAPY RANGESSTANDARD DOSE: 2.0 - 3.0 Includes: PROPHYLAXIS forvenous thrombosis, systemic embolization; TREATMENT for venous thrombosis and/or pulmonary embolus.HIGH RISK: Target INR is 2.5-3.5 for patients with mechanical heart valves.HEMOGLOBIN AND [id number] 19 :41:00 Test Item Value Reference Range Comments HEMOGLOBIN (BEAKER) (test qmix=493) 11.3 GM/DL 11.2-15.7 HEMATOCRIT (BEAKER) (test wznj=118) 35.4 % 34.1-44.9 CBC W/PLT COUNT & AUTO [id number] 19:41:00 Test Item Value Reference Range Comments WHITE BLOOD CELL COUNT (BEAKER) (test quvs=534) 6.8 K/ L 3.5-10.5 RED BLOOD CELL COUNT (BEAKER) (test sivj=238) 4.36 M/ L 3.93-5.22 HEMOGLOBIN (BEAKER) (test aunu=627) 11.3 GM/DL 11.2-15.7 HEMATOCRIT (BEAKER) (test vymh=330) 35.4 % 34.1-44.9 MEAN CORPUSCULAR VOLUME (BEAKER) (test jhrp=361) 81.2 fL 79.4-94.8 MEAN CORPUSCULAR HEMOGLOBIN (BEAKER) (test 25.9 pg 25.6-32.2 oufp=176) MEAN CORPUSCULAR HEMOGLOBIN CONC (BEAKER) (test 31.9 GM/DL 32.2-35.5 iptg=192) RED CELL DISTRIBUTION WIDTH (BEAKER) (test 14.2 % 11.7-14.4 ccia=722) PLATELET COUNT (BEAKER) (test klmq=402) 263 K/CU MM 150-450 MEAN PLATELET VOLUME (BEAKER) (test sfcj=016) 9.4 fL 9.4-12.3 NUCLEATED RED BLOOD CELLS (BEAKER) (test 0 /100 WBC 0-0 pmfm=891) NEUTROPHILS RELATIVE PERCENT (BEAKER) (test 78 % bbtj=520) LYMPHOCYTES RELATIVE PERCENT (BEAKER) (test 10 % eprf=008) MONOCYTES RELATIVE PERCENT (BEAKER) (test 11 % oynz=794) EOSINOPHILS RELATIVE PERCENT (BEAKER) (test 0 % kffq=488) BASOPHILS RELATIVE PERCENT (BEAKER) (test 0 % uhbt=203) NEUTROPHILS ABSOLUTE COUNT (BEAKER) (test 5.35 K/ L 1.56-6.13 wlcp=355) LYMPHOCYTES ABSOLUTE COUNT (BEAKER) (test 0.70 K/ L 1.18-3.74 qjxk=374) MONOCYTES ABSOLUTE COUNT (BEAKER) (test 0.76 K/ L 0.24-0.36 zqox=065) EOSINOPHILS ABSOLUTE COUNT (BEAKER) (test 0.00 K/ L 0.04-0.36 chpe=056) BASOPHILS ABSOLUTE COUNT (BEAKER) (test 0.01 K/ L 0.01-0.08 pslv=699) IMMATURE GRANULOCYTES-RELATIVE PERCENT (BEAKER) 0 % 0-1 (test bhjx=2883) TROPONIN [id number] 19:26:00 Test Item Value Reference Range Comments TROPONIN I (BEAKER) (test hhyc=838) 0.11 ng/mL 0.00-0.03 PROTEIN, RANDOM [id number] 19:19:00 Test Item Value Reference Range Comments PROTEIN, URINE (BEAKER) (test xxed=9918) 325 mg/dL 0-14 POCT-GLUCOSE [id number] 19:00:00 Test Item Value Reference Range Comments POC-GLUCOSE METER (BEAKER) 158 mg/dL 70-110 TESTED AT [facility] [address] [place] [address] (test mcsc=7437) [facility] [address] CREATININE, RANDOM [id number] 18:52:00 Test Item Value Reference Range Comments CREATININE URINE (BEAKER) (test crow=127) 95.8 mg/dL Reference Range: No NormalsSODIUM, RANDOM [id number] 18:52:00 Test Item Value Reference Range Comments SODIUM URINE (BEAKER) (test zapp=603) 28 meq/L Reference Range: No NormalsURINALYSIS W/ [id number] 18:02:00 Test Item Value Reference Range Comments COLOR (BEAKER) (test iwmm=506) Yellow CLARITY (BEAKER) (test vikz=179) Clear SPECIFIC GRAVITY UA (BEAKER) (test 1.014 1.001-1.035 qags=812) PH UA (BEAKER) (test rzjt=484) 5.5 5.0-8.0 PROTEIN UA (BEAKER) (test svrd=887) 300 mg/dL Negative GLUCOSE UA (BEAKER) (test nhvj=094) Negative Negative KETONES UA (BEAKER) (test cphs=561) Negative Negative BILIRUBIN UA (BEAKER) (test ojqq=160) Negative Negative BLOOD UA (BEAKER) (test gkwq=820) Trace Negative NITRITE UA (BEAKER) (test veln=670) Negative Negative LEUKOCYTE ESTERASE UA (BEAKER) (test Negative Negative ukmh=997) UROBILINOGEN UA (BEAKER) (test rtwj=158) 0.2 mg/dL 0.2-1.0 RBC UA (BEAKER) (test whia=630) 21 /HPF WBC UA (BEAKER) (test rgst=563) 1 /HPF MUCUS (BEAKER) (test mamr=1133) Rare SQUAMOUS EPITHELIAL (BEAKER) (test < /HPF idbn=178) HYALINE CASTS (BEAKER) (test rvtl=391) 1 /LPF SOURCE(BEAKER) (test ksap=7914) Urine, Clean Catch POCT-GLUCOSE [id number] 17:21:00 Test Item Value Reference Range Comments POC-GLUCOSE METER (BEAKER) 137 mg/dL 70-110 TESTED AT [facility] [address] [facility] (test cskm=9600) [facility] [address] BASIC METABOLIC [id number] 17:14:00 Test Item Value Reference Range Comments SODIUM (BEAKER) (test 146 meq/L 136-145 rvmj=695) POTASSIUM (BEAKER) (test 3.3 meq/L 3.5-5.1 kcsn=414) CHLORIDE (BEAKER) (test 114 meq/L 98-107 lwja=473) CO2 (BEAKER) (test 20 meq/L 22-29 iymm=960) BLOOD UREA NITROGEN 41 mg/dL 7-21 (BEAKER) (test pegi=373) CREATININE (BEAKER) (test 2.12 mg/dL 0.57-1.25 njfk=117) GLUCOSE RANDOM (BEAKER) 135 mg/dL 70-105 (test fsrl=444) CALCIUM (BEAKER) (test 8.9 mg/dL 8.4-10.2 nmxl=766) EGFR (BEAKER) (test 30 mL/min/1.73 sq m ESTIMATED GFR IS NOT fpic=6456) ACCURATE CREATININE CLEARANCE IN PREDICTING GLOMERULAR FILTRATION RATE. ESTIMATED GFR IS NOT APPLICABLE FOR DIALYSIS PATIENTS. Call results [id number] ACID, VENOUS, WHOLE [id number] 14:19:00 Test Item Value Reference Range Comments LACTATE BLOOD VENOUS (2) (BEAKER) (test 1.1 mmol/L 0.5-2.2 wgrd=7364) THROMBIN [id number] 13:02:00 Test Item Value Reference Range Comments THROMBIN TIME (BEAKER) (test mjpq=817) 17.8 secs 13.8-20.0 [id number] 13:01:00 Test Item Value Reference Range Comments PROCALCITONIN (BEAKER) (test wcuf=0294) 0.09 ng/mL <0.05 SEPSIS RISK (ng/mL)Low: 0.05-0.50Intermediate: 0.51-2.00High: & gt;=2.011:1 MIXING STUDY, [id number] 12:38:00 Test Item Value Reference Range Comments PROTIME (BEAKER) (test dees=124) 15.0 seconds 11.7-14.7 PARTIAL THROMBOPLASTIN TIME (BEAKER) (test 36.1 seconds 22.5-36.0 hllv=756) PT 1/1 MIX (BEAKER) (test ytop=1396) 14.4 SECS 11.7-14.7 PTT 1/1 MIX (BEAKER) (test axjc=2386) 35.5 SECS 22.5-36.0 TROPONIN [id number] 12:01:00 Test Item Value Reference Range Comments TROPONIN I (BEAKER) (test mudu=113) 0.13 ng/mL 0.00-0.03 HCG, QUANTITATIVE, [id number] 11:58:00 Test Item Value Reference Range Comments GONADOTROPIN, CHORIONIC (HCG) QUANT (BEAKER) (test < mIU/mL 0-10 tmci=831) Non- Females: <10 mIU/mL Females: Gestation Age Reference Range(mIU/mL) 0.2-1 Week 5-50 1-2 Weeks 50-500 2-3 Weeks 100-5,000 3-4Weeks 500-10,000 4 -5 Weeks 1,000-50,000 5-6 Weeks 10,000-100,000 6-8 Weeks 15,000-200,000 2-3 Months 10,000-100,[id number] 11:55:00 Test Item Value Reference Range Comments LIPASE (BEAKER) (test pzwc=798) 31 U/L 8-78 [id number] 11:55:00 Test Item Value Reference Range Comments AMYLASE (BEAKER) (test kydu=434) 101 U/L 25-125 COMPREHENSIVE METABOLIC [id number] 11:55:00 Test Item Value Reference Range Comments TOTAL PROTEIN (BEAKER) 8.5 gm/dL 6.0-8.3 (test dsqt=426) ALBUMIN (BEAKER) (test 4.1 g/dL 3.5-5.0 eshm=7233) ALKALINE PHOSPHATASE 170 U/L 40-150 (BEAKER) (test ckzq=196) BILIRUBIN TOTAL (BEAKER) 0.3 mg/dL 0.2-1.2 (test kffk=221) SODIUM (BEAKER) (test 143 meq/L 136-145 otbv=103) POTASSIUM (BEAKER) (test 2.9 meq/L 3.5-5.1 jzxn=788) CHLORIDE (BEAKER) (test 111 meq/L 98-107 fnhj=052) CO2 (BEAKER) (test 19 meq/L 22-29 ehpa=890) BLOOD UREA NITROGEN 41 mg/dL 7-21 (BEAKER) (test bakl=496) CREATININE (BEAKER) (test 2.07 mg/dL 0.57-1.25 fyjt=875) GLUCOSE RANDOM (BEAKER) 162 mg/dL 70-105 (test jgwe=582) CALCIUM (BEAKER) (test 9.1 mg/dL 8.4-10.2 jnsc=411) AST (SGOT) (BEAKER) (test 21 U/L 5-34 oscx=589) ALT (SGPT) (BEAKER) (test 11 U/L 6-55 gqzo=634) EGFR (BEAKER) (test 31 mL/min/1.73 sq m ESTIMATED GFR IS NOT nqpt=4923) ACCURATE CREATININE CLEARANCE IN PREDICTING GLOMERULAR FILTRATION RATE. ESTIMATED GFR IS NOT APPLICABLE FOR DIALYSIS PATIENTS. C-REACTIVE [id number] 11:55:00 Test Item Value Reference Range Comments C-REACTIVE PROTEIN (BEAKER) (test ulwo=034) 0.42 mg/dL 0.00-0.50 LACTIC ACID, VENOUS, WHOLE [id number] 11:51:00 Test Item Value Reference Range Comments LACTATE BLOOD VENOUS (2) 1.5 mmol/L 0.5-2.2 Specimen slightly hemolyzed (BEAKER) (test atdl=2337) [id number] 11:44:00 Test Item Value Reference Range Comments PARTIAL THROMBOPLASTIN TIME (BEAKER) (test 35.4 seconds 22.5-36.0 wwtw=119) CBC W/PLT COUNT & AUTO [id number] 11:30:00 Test Item Value Reference Range Comments WHITE BLOOD CELL COUNT (BEAKER) (test ltgb=852) 9.2 K/ L 3.5-10.5 RED BLOOD CELL COUNT (BEAKER) (test qlis=929) 4.90 M/ L 3.93-5.22 HEMOGLOBIN (BEAKER) (test yqhe=504) 12.7 GM/DL 11.2-15.7 HEMATOCRIT (BEAKER) (test btag=533) 39.7 % 34.1-44.9 MEAN CORPUSCULAR VOLUME (BEAKER) (test wfbn=364) 81.0 fL 79.4-94.8 MEAN CORPUSCULAR HEMOGLOBIN (BEAKER) (test 25.9 pg 25.6-32.2 iopw=807) MEAN CORPUSCULAR HEMOGLOBIN CONC (BEAKER) (test 32.0 GM/DL 32.2-35.5 ehdf=361) RED CELL DISTRIBUTION WIDTH (BEAKER) (test 14.3 % 11.7-14.4 thup=786) PLATELET COUNT (BEAKER) (test falf=677) 327 K/CU MM 150-450 MEAN PLATELET VOLUME (BEAKER) (test nxhz=326) 9.0 fL 9.4-12.3 NUCLEATED RED BLOOD CELLS (BEAKER) (test 0 /100 WBC 0-0 hyti=975) NEUTROPHILS RELATIVE PERCENT (BEAKER) (test 88 % citw=588) LYMPHOCYTES RELATIVE PERCENT (BEAKER) (test 5 % tzsi=937) MONOCYTES RELATIVE PERCENT (BEAKER) (test 6 % vwfs=759) EOSINOPHILS RELATIVE PERCENT (BEAKER) (test 0 % mbsd=445) BASOPHILS RELATIVE PERCENT (BEAKER) (test 0 % bgxc=726) NEUTROPHILS ABSOLUTE COUNT (BEAKER) (test 8.16 K/ L 1.56-6.13 ioei=936) LYMPHOCYTES ABSOLUTE COUNT (BEAKER) (test 0.50 K/ L 1.18-3.74 kvpt=775) MONOCYTES ABSOLUTE COUNT (BEAKER) (test 0.53 K/ L 0.24-0.36 icbn=225) EOSINOPHILS ABSOLUTE COUNT (BEAKER) (test 0.00 K/ L 0.04-0.36 wrhs=636) BASOPHILS ABSOLUTE COUNT (BEAKER) (test 0.01 K/ L 0.01-0.08 xqms=835) IMMATURE GRANULOCYTES-RELATIVE PERCENT (BEAKER) 0 % 0-1 (test gdge=1966) POCT-GLUCOSE [id number] 11:20:00 Test Item Value Reference Range Comments POC-GLUCOSE METER (BEAKER) 167 mg/dL 70-110 TESTED AT [facility] [address] [facility] (test gifi=2666) [facility] [address] HEMOGLOBIN [id number] 11:15:00 Test Item Value Reference Range Comments HEMOGLOBIN A1C (BEAKER) (test vkli=079) 5.6 % 4.3-6.1 PROTHROMBIN TIME/[id number] 08:24:00 Test Item Value Reference Range Comments PROTIME (BEAKER) (test vhjv=281) 15.3 seconds 11.7-14.7 INR (BEAKER) (test nvtn=838) 1.2 <=5.9 RECOMMENDED COUMADIN/WARFARIN INR THERAPY RANGESSTANDARD DOSE: 2.0 - 3.0 Includes: PROPHYLAXIS forvenous thrombosis, systemic embolization; TREATMENT for venous thrombosis and/or pulmonary embolus.HIGH RISK: Target INR is 2.5-3.5 for patients with mechanical heart valves.RAD, ABDOMEN/KUB, 1 VIEW [id number] 08:13:00Reason for exam:->abdominal painFINAL REPORT INDICATION:Abdominal pain. [...] Olivier Verified Date/Time: 07/28 08:13:33 Reading Location: [facility] [id number] Ortho Consult Reading Room TROPONIN [id number] 08:11:00 Test Item Value Reference Range Comments TROPONIN I (BEAKER) (test cray=355) 0.05 ng/mL 0.00-0.03 RAD, CHEST, 1 VIEW, NON [id number] 08:10:00Reason for exam:->chest painShould this be performed at the bedside?->YesFINAL REPORT RAD, CHEST, 1 VIEW, NON DEPT INDICATION: chest pain COMPARISON: Prior day's exam FINDINGS: Portable frontal view of the chest. IMPRESSION: Support Lines: None. Lungs and pleura: Clear lungs. No effusion. No pneumothorax.Heart and mediastinum: Unremarkable contours.Additional findings: None. Signed: JR Maya Robert MDReport Verified Date/Time: 07/28/2018 08:10:51 Reading Location: [facility] Radiology Reading Room BASIC METABOLIC [id number] 08:08:00 Test Item Value Reference Range Comments SODIUM (BEAKER) (test 146 meq/L 136-145 tiov=426) POTASSIUM (BEAKER) (test 3.4 meq/L 3.5-5.1 Specimen slightly fgmk=026) hemolyzed CHLORIDE (BEAKER) (test 112 meq/L 98-107 qfzl=845) CO2 (BEAKER) (test 16 meq/L 22-29 cdon=117) BLOOD UREA NITROGEN 43 mg/dL 7-21 (BEAKER) (test xgij=550) CREATININE (BEAKER) (test 2.26 mg/dL 0.57-1.25 Specimen slightly gqqb=364) hemolyzed GLUCOSE RANDOM (BEAKER) 165 mg/dL 70-105 (test nnhk=868) CALCIUM (BEAKER) (test 9.4 mg/dL 8.4-10.2 uulz=779) EGFR (BEAKER) (test 28 mL/min/1.73 sq m ESTIMATED GFR IS NOT tbix=6632) ACCURATE CREATININE CLEARANCE IN PREDICTING GLOMERULAR FILTRATION RATE. ESTIMATED GFR IS NOT APPLICABLE FOR DIALYSIS PATIENTS. [id number] 08:04:00 Test Item Value Reference Range Comments LIPASE (BEAKER) (test efpd=387) 12 U/L 8-78 HEPATIC FUNCTION [id number] 08:04:00 Test Item Value Reference Range Comments TOTAL PROTEIN (BEAKER) (test 9.1 gm/dL 6.0-8.3 Specimen slightly hemolyzed jtje=128) ALBUMIN (BEAKER) (test 4.4 g/dL 3.5-5.0 Specimen slightly hemolyzed etee=2772) BILIRUBIN TOTAL (BEAKER) (test 0.3 mg/dL 0.2-1.2 Specimen slightly hemolyzed dipb=955) BILIRUBIN DIRECT (BEAKER) (test 0.1 mg/dL 0.1-0.5 Specimen slightly hemolyzed eqqj=769) ALKALINE PHOSPHATASE (BEAKER) 177 U/L 40-150 (test klqs=273) AST (SGOT) (BEAKER) (test 25 U/L 5-34 Specimen slightly hemolyzed njcq=133) ALT (SGPT) (BEAKER) (test 12 U/L 6-55 Specimen slightly hemolyzed mqkl=543) COMPLEMENT COMPONENT [id number] 08:03:00 Test Item Value Reference Range Comments C4 COMPLEMENT (BEAKER) (test mlaa=628) 25 mg/dL 15-57 COMPLEMENT COMPONENT [id number] 08:03:00 Test Item Value Reference Range Comments C3 COMPLEMENT (BEAKER) (test emiy=160) 125 mg/dL 82-193 POCT-BLOOD GASES, [id number] 07:57:00 Test Item Value Reference Range Comments TEMP, CELSIUS-POC (BEAKER) 37.0 (test qxgs=4322) FIO2-POC (BEAKER) (test [address] x[address]) [place] [address] PH, ARTERIAL-POC (BEAKER) 7.416 7.350-7.450 (test iisj=9124) PCO2, ARTERIAL-POC (BEAKER) 29.8 mm Hg 35.0-45.0 (test efqi=1699) PO2, ARTERIAL-POC (BEAKER) 123.0 mm Hg 80.0-90.0 (test jhkc=5318) SO2, ARTERIAL-POC (BEAKER) 99.0 % 96.0-97.0 (test xehg=1746) HCO3, ARTERIAL-POC (BEAKER) 19.2 meq/L 21.0-29.0 (test uowg=6517) BASE EXCESS, ARTERIAL-POC -5.0 meq/L -2.0-3.0 (BEAKER) (test pypu=9000) [id number] 07:57:00 Test Item Value Reference Range Comments POC-SODIUM (BEAKER) (test 146 meq/L 135-148 TESTED AT [address] ooxv=4894) [place] [address] [id number] 07:57:00 Test Item Value Reference Range Comments POC-POTASSIUM (BEAKER) (test 2.7 meq/L 3.6-5.5 TESTED AT [address] qptb=0005) [place] [address] [id number] 07:57:00 Test Item Value Reference Range Comments POC-GLUCOSE (BEAKER) (test 176 mg/dL 70-110 TESTED AT [address] biti=1765) [place] [address] POCT-CALCIUM [id number] 07:57:00 Test Item Value Reference Range Comments POC-CALCIUM IONIZED (BEAKER) 1.15 mmol/L 1.12-1.27 TESTED AT [address] (test ijbj=7900) [place] [address] [id number] 07:57:00 Test Item Value Reference Range Comments POC-HEMATOCRIT (BEAKER) (test 38 % 36-45 TESTED AT [address] krqz=2226) [place] [address] [id number] 07:57:00 Test Item Value Reference Range Comments POC-HEMOGLOBIN (BEAKER) 12.9 g/dL 12.0-15.0 [address]ED AT [address] (test lqyu=6767) [place] [id number] AT [address] [address] POCT-LACTIC ACID, [id number] 07:57:00 Test Item Value Reference Range Comments POC-LACTIC ACID, VENOUS 3.3 mmol/L 0.9-1.7 TESTED AT [address] (BEAKER) (test moka=8105) [place] [id number] CBC W/PLT COUNT & AUTO [id number] 07:47:00 Test Item Value Reference Range Comments WHITE BLOOD CELL COUNT (BEAKER) (test fuhf=187) 9.6 K/ L 3.5-10.5 RED BLOOD CELL COUNT (BEAKER) (test kahr=067) 4.78 M/ L 3.93-5.22 HEMOGLOBIN (BEAKER) (test mhxz=043) 12.2 GM/DL 11.2-15.7 HEMATOCRIT (BEAKER) (test zapi=017) 39.2 % 34.1-44.9 MEAN CORPUSCULAR VOLUME (BEAKER) (test axdx=477) 82.0 fL 79.4-94.8 MEAN CORPUSCULAR HEMOGLOBIN (BEAKER) (test 25.5 pg 25.6-32.2 yfwq=726) MEAN CORPUSCULAR HEMOGLOBIN CONC (BEAKER) (test 31.1 GM/DL 32.2-35.5 qvyd=374) RED CELL DISTRIBUTION WIDTH (BEAKER) (test 14.2 % 11.7-14.4 mlux=741) PLATELET COUNT (BEAKER) (test huzo=223) 301 K/CU MM 150-450 MEAN PLATELET VOLUME (BEAKER) (test xuyj=572) 8.8 fL 9.4-12.3 NUCLEATED RED BLOOD CELLS (BEAKER) (test 0 /100 WBC 0-0 ziij=042) NEUTROPHILS RELATIVE PERCENT (BEAKER) (test 89 % vadt=306) LYMPHOCYTES RELATIVE PERCENT (BEAKER) (test 5 % vrcu=625) MONOCYTES RELATIVE PERCENT (BEAKER) (test 5 % qykq=861) EOSINOPHILS RELATIVE PERCENT (BEAKER) (test 0 % imje=809) BASOPHILS RELATIVE PERCENT (BEAKER) (test 0 % ulxc=384) NEUTROPHILS ABSOLUTE COUNT (BEAKER) (test 8.56 K/ L 1.56-6.13 uwyi=519) LYMPHOCYTES ABSOLUTE COUNT (BEAKER) (test 0.52 K/ L 1.18-3.74 qmfi=145) MONOCYTES ABSOLUTE COUNT (BEAKER) (test 0.46 K/ L 0.24-0.36 mngn=519) EOSINOPHILS ABSOLUTE COUNT (BEAKER) (test 0.00 K/ L 0.04-0.36 gdqz=462) BASOPHILS ABSOLUTE COUNT (BEAKER) (test 0.02 K/ L 0.01-0.08 uspi=609) IMMATURE GRANULOCYTES-RELATIVE PERCENT (BEAKER) 0 % 0-1 (test plpd=6966)
[2019-08-02] MEDS ORDERED: PROMETHAZINE INJ 25 MG/ML AMP ONE (15:29)
[2019-08-02] MEDS ORDERED: NA CHLORIDE 0.9% 1,000 ML ONE ×2 (15:29→16:35)
[2019-08-02 15:38] LABS: Basophils % 0.7 % (0-1.3); Hematocrit 33.8 % (36.0-45.0); Lymphocytes % 37.6 % (15.3-44.8); MPV 7.7 fL (7.6-11.3)
--- NOTE | 2019-08-02 16:03 | RAD REPORT ---
EXAM DESCRIPTION: CT - Abdomen Pelvis Wo Contrast - 08/02/2019 3:40 pm CLINICAL HISTORY: Abdominal pain vomiting COMPARISON: 2018 TECHNIQUE: Computed axial tomography of the abdomen and pelvis was obtained. IV and oral contrast we re not requested. All CT scans are performed using dose optimization technique as appropriate and may include automated exposure control or mA/KV adjustment according to patient size. FINDINGS: The evaluation of solid organs, vessels and bowel is limited secondary to the lack of con trast administration. Right lower quadrant ileostomy. Postsurgical changes involve the colon. The bowel caliber is normal. The liver, spleen, pancreas and adrenals appear grossly normal. Tiny nonobstructing right renal calculus. Small left renal cyst suspected. Laxity anterior abdominal wall IMPRESSION: Right lower quadrant ileostomy. Postsurgical changes involve the colon. No evidence of a bowel obstruction No acute abnormality is displayed
[2019-08-02 16:21] LABS: ALT/SGPT 12 U/L (12-78); AST/SGOT 11 U/L (15-37); Albumin 3.6 g/dL (3.4-5.0); Alkaline Phosphatase 189 U/L (45-117); BUN Blood Urea Nitrogen 50 mg/dL (7-18); Bilirubin Direct < 0.1 mg/dL (0-0.2); Bilirubin Total 0.3 mg/dL (0.2-1.0); Glucose Level 101 mg/dL (74-106); Lipase 270 U/L (73-393); Potassium 3.3 mmol/L (3.5-5.1); Protein, Total 8.5 g/dL (6.4-8.2); Sodium Level 138 mmol/L (136-145)
[2019-08-02 16:22] LABS: Bicarbonate 12 mmol/L (21-32)
--- NOTE | 2019-08-02 17:08 | ER ---
Nurse's Notes [facility] [place], [place] Name: Babs Younger Age: 49 yrs Sex: Female : 1970 Arrival Date: 08/02/2019 Time: 14:17 Bed 25 Private MD: Diagnosis: Nausea and vomiting;Dehydration Presentation: 08/02 14:17 Presenting complaint: Patient states: Hx of Renal failure. Had colostomy turned into aa5 ileostomy on July [address] [facility] and was d/c'd from hospital 2 weeks ago. Pt c/o low back pain, nausea, and vomiting that began "a few days ago". Pt also reports decreased urination. Pt states "the central line is clogged and the nurse can't give me fluids or get blood anymore". 14:17 Transition of care: patient was not received from another setting of care. Onset of aa5 symptoms was July 2019. Risk Assessment: Do you want to hurt yourself or someone else? Patient reports no desire to harm self or others. Initial Sepsis Screen: Does the patient meet any 2 criteria? No. Patient's initial sepsis screen is negative. Does the patient have a suspected source of infection? No. Patient's initial sepsis screen is negative. Care prior to arrival: None. 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: 14:17 LMP N/A - Hysterectomy aa5 Historical: - Allergies: 14:27 Morphine; aa5 - Home Meds: 14:27 Ambien 5 mg Oral tab 1 tab qhs prn [Active]; amlodipine 10 mg tab 1 tab once daily aa5 [Active]; CellCept 500 mg Oral tab 2 tabs 2 times per day [Active]; clonidine HCl 0.3 mg Oral tab 1 tab three times a day [Active]; doxazosin 4 mg Oral tab 1 tab once daily [Active]; furosemide 80 mg Oral tab 1 tab 2 times per day [Active]; gabapentin 400 mg Oral cap 1 cap as needed [Active]; Humulin 70/30 100 unit/mL (70-30) Sub-Q susp 60 units in am and 40 units at night [Active]; hydralazine 50 mg Oral tab 1 tab three times a day [Active]; metoprolol tartrate 100 mg Oral tab 1 tab 2 times per day [Active]; [place] 10-325 mg Oral tab 1 tab QID PRN [Active]; Plaquenil 200 mg Oral tab 1 tab once daily [Active]; - PMHx: 14:27 Diabetes - IDDM; Hypertension; Lupus; Renal Disease; Bowel obstruction; aa5 - PSHx: 14:27 Hysterectomy; Colostomy; Ileostomy-2018; ; aa5 - Immunization history:: Flu vaccine is not up to date. - Social history:: Smoking status: Patient/guardian denies using tobacco. - Ebola Screening: : No symptoms or risks identified at this time. - Family history:: not pertinent. - Hospitalizations: : Patient was recently seen at. Screenin:30 Abuse screen: Denies threats or abuse. Nutritional screening: No deficits noted. aa5 Tuberculosis screening: No symptoms or risk factors identified. Fall Risk None identified. Assessment: 14:18 General: Appears comfortable, Behavior is calm, cooperative. Pain: Complains of pain in aa5 lumbar area, left low back and right low back Pain radiates to right lower quadrant and left lower quadrant Pain currently is 8 out of 10 on a pain scale. Quality of pain is described as sharp, Pain began 2-3 days ago. Is continuous. Neuro: Level of Consciousness is awake, alert, obeys commands, Oriented to person, place, time, situation. Cardiovascular: Heart tones S1 S2 present Rhythm is regular. Respiratory: Airway is patent Respiratory effort is even, unlabored, Respiratory pattern is regular, symmetrical. GI: Abdomen is round non-distended, Ileostomy site is clean and dry. Ostomy appliance is intact. Small amount of watery stool noted. Bowel sounds present X 4 quads. Abd is soft and non tender X 4 quads. Reports nausea, vomiting, Pt states "I've been taking Imodium because I've been having large amounts of watery stool". : Reports decreased urination. Denies burning with urination. EENT: No signs and/or symptoms were reported regarding the EENT system. Derm: Skin is dry, Skin is normal, Skin temperature is warm. Musculoskeletal: Range of motion: intact in all extremities. 15:20 Reassessment: Central line to right side of upper chest, purple port easy to flush with aa5 saline and blood return noted, red port easy to flush with saline and blood return noted. Both ports flushed with 20 cc NS. MD was notified of findings. . 15:30 Neuro: Level of Consciousness is awake, alert, obeys commands, Oriented to person, aa5 place, time, situation. Respiratory: Airway is patent Respiratory effort is even, unlabored, Respiratory pattern is regular, symmetrical. Derm: Skin is dry, Skin is normal, Skin temperature is warm. 15:32 Reassessment: Pt to CT via stretcher . aa5 16:40 Reassessment: Pt resting in bed with eyes closed, respirations even and unlabored. aa5 States no complaints at this time. . 17:15 Reassessment: Dr. Lewis (Hospitalist) at bedside. aa5 17:40 Reassessment: Pt resting in bed with eyes closed, respirations even and unlabored, skin aa5 is normal/warm/dry.. 18:20 Neuro: Level of Consciousness is awake, alert, obeys commands, Oriented to person, aa5 place, time, situation. Respiratory: Airway is patent Respiratory effort is even, unlabored, Respiratory pattern is regular, symmetrical. Derm: Skin is dry, Skin is normal, Skin temperature is warm. Vital Signs: 14:18 BP 136 / 89; Pulse 73; Resp 16 S; Temp 99.0(O); Pulse Ox 100% on R/A; Weight 71.67 kg aa5 (R); Height 5 ft. 2 in. (157.48 cm) (R); Pain 8/10; 15:30 Pulse 72; Resp 18 S; Temp 98.8(O); Pulse Ox 98% on R/A; aa5 16:24 BP 148 / 92; Pulse 80; Resp 16 S; Pulse Ox 100% on R/A; aa5 17:40 BP 145 / 78; Pulse 74; Resp 16 S; Pulse Ox 100% on R/A; aa5 18:15 BP 144 / 81; Pulse 75; Resp 16 S; Temp 98.7(O); Pulse Ox 99% on R/A; aa5 14:18 Body Mass Index 28.90 (71.67 kg, 157.48 cm) aa5 ED Course: 14:17 Patient arrived in ED. em1 14:19 Brii Montano, RN is Primary Nurse. aa5 14:20 Patient maintains SpO2 saturation greater than 95% on room air. jp3 14:20 Bed in low position. Call light in reach. Side rails up X 1. Warm blanket given. Verbal jp3 reassurance given. Pulse ox on. NIBP on. 14:20 Arm band placed on. aa5 14:24 Triage completed. aa5 15:20 Irvin Ibarra MD is Attending Physician. rn 15:20 Initial lab(s) drawn, by me, sent to lab. aa5 15:40 CT Abd/Pelvis - Without Contrast In Process Unspecified. EDMS 17:05 Marcelino Lewis DO is Hospitalizing Provider. rn 17:10 Urine collected: clean catch specimen, clear, Amount Voided: 20mL Urine micro sent to aa5 lab. 18:20 No provider procedures requiring assistance completed. Patient admitted, IV remains in aa5 place. Administered Medications: 15:27 Drug: NS 0.9% 1000 ml Route: IV; Rate: 1000 ml; Site: Other; aa5 16:40 Follow up: IV Status: Completed infusion; IV Intake: 1000ml aa5 15:27 Drug: Phenergan 12.5 mg Route: IVP; Site: Other; aa5 15:32 Follow up: Response: No adverse reaction aa5 16:40 Drug: NS 0.9% 1000 ml Route: IV; Rate: 1000 ml; Site: Other; aa5 17:40 Follow up: IV Status: Completed infusion; IV Intake: 1000ml aa5 Intake: 16:40 IV: 1000ml; Total: 1000ml. aa5 17:40 IV: 1000ml; Total: 2000ml. aa5 Outcome: 17:07 Decision to Hospitalize by Provider. rn 18:20 Admitted to Med/surg accompanied by tech, via stretcher, with chart, Report called to aa5 LUIS Duong 18:20 Condition: stable 18:20 Instructed on the need for admit, Demonstrated understanding of instructions. 18:22 Patient left the ED. aa5 Signatures: Dispatcher [employer] EDIL Irvin Ibarra MD MD rn Martinez, Eric em1 Brii Montano RN RN aa5 Mark Anthony Kaplan jp3 Corrections: (The following items were deleted from the chart) 17:34 17:10 Urine collected: clean catch specimen, clear, Amount Voided: 20mL aa5 aa5
--- NOTE | 2019-08-02 17:08 | EDPHYS ---
Physician Documentation [facility] Name: Babs Younger Age: 49 yrs Sex: Female : 1970 Arrival Date: 08/02/2019 Time: 14:17 Bed 25 Private MD: ED Physician Irvin Ibarra HPI: 08/02 16:08 This 49 yrs old Black Female presents to ER via EMS with complaints of Back Pain, rn Nausea/Vomiting, Central line problem. 16:08 The patient presents to the emergency department with nausea, vomiting. rn 16:09 Onset: The symptoms/episode began/occurred 3 day(s) ago. Possible causes: unknown. The rn symptoms are aggravated by nothing. The symptoms are alleviated by prescription meds. Severity of symptoms: At their worst the symptoms were mild in the emergency department the symptoms are unchanged. The patient has experienced similar episodes in the past. Reports low back pain, nausea/vomiting for 3-4 days, no diarrhea or blood in emesis/stool. No fever. Reports colostomy changed to ileostomy 2 weeks ago, no abd pain. Also reports central line seems clogged, and is supposed to get IV fluids 4x/week. takes zofran at home for nausea but only works sometimes. . 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 - Hysterectomy aa5 Historical: - Allergies: 14:27 Morphine; aa5 - Home Meds: 14:27 Ambien 5 mg Oral tab 1 tab qhs prn [Active]; amlodipine 10 mg tab 1 tab once daily aa5 [Active]; CellCept 500 mg Oral tab 2 tabs 2 times per day [Active]; clonidine HCl 0.3 mg Oral tab 1 tab three times a day [Active]; doxazosin 4 mg Oral tab 1 tab once daily [Active]; furosemide 80 mg Oral tab 1 tab 2 times per day [Active]; gabapentin 400 mg Oral cap 1 cap as needed [Active]; Humulin 70/30 100 unit/mL (70-30) Sub-Q susp 60 units in am and 40 units at night [Active]; hydralazine 50 mg Oral tab 1 tab three times a day [Active]; metoprolol tartrate 100 mg Oral tab 1 tab 2 times per day [Active]; [place] 10-325 mg Oral tab 1 tab QID PRN [Active]; Plaquenil 200 mg Oral tab 1 tab once daily [Active]; - PMHx: 14:27 Diabetes - IDDM; Hypertension; Lupus; Renal Disease; Bowel obstruction; aa5 - PSHx: 14:27 Hysterectomy; Colostomy; Ileostomy-2018; ; aa5 - Immunization history:: Flu vaccine is not up to date. - Social history:: Smoking status: Patient/guardian denies using tobacco. - Ebola Screening: : No symptoms or risks identified at this time. - Family history:: not pertinent. - Hospitalizations: : Patient was recently seen at. ROS: 16:09 Constitutional: Negative for fever, chills, and weight loss, Eyes: Negative for injury, rn pain, redness, and discharge, Neck: Negative for injury, pain, and swelling, Cardiovascular: Negative for chest pain, palpitations, and edema, Respiratory: Negative for shortness of breath, cough, wheezing, and pleuritic chest pain, Abdomen/GI: + nausea/vomiting. MS/Extremity: Negative for injury and deformity, Skin: Negative for injury, rash, and discoloration, Neuro: Negative for headache, weakness, numbness, tingling, and seizure. Exam: 16:09 Constitutional: This is a well developed, well nourished patient who is awake, alert, rn and in no acute distress. Head/Face: Normocephalic, atraumatic. ENT: dry MM Cardiovascular: Regular rate and rhythm. No pulse deficits. Respiratory: No increased work of breathing, no retractions or nasal flaring. Abdomen/GI: soft, non-tender, right sided ostomy with normal output MS/ Extremity: Pulses equal, no cyanosis. Neuro: Awake and alert, GCS 15, oriented to person, place, time, and situation. Vital Signs: 14:18 BP 136 / 89; Pulse 73; Resp 16 S; Temp 99.0(O); Pulse Ox 100% on R/A; Weight 71.67 kg aa5 (R); Height 5 ft. 2 in. (157.48 cm) (R); Pain 8/10; 15:30 Pulse 72; Resp 18 S; Temp 98.8(O); Pulse Ox 98% on R/A; aa5 16:24 BP 148 / 92; Pulse 80; Resp 16 S; Pulse Ox 100% on R/A; aa5 17:40 BP 145 / 78; Pulse 74; Resp 16 S; Pulse Ox 100% on R/A; aa5 18:15 BP 144 / 81; Pulse 75; Resp 16 S; Temp 98.7(O); Pulse Ox 99% on R/A; aa5 14:18 Body Mass Index 28.90 (71.67 kg, 157.48 cm) aa5 MDM: 15:20 Patient medically screened. rn 17:00 Differential diagnosis: diverticulitis, viral gastroenteritis, gastroenteritis, rn colitis, dehydration. Data reviewed: vital signs, nurses notes, lab test result(s), radiologic studies, CT scan, and as a result, I will admit patient. Counseling: I had a detailed discussion with the patient and/or guardian regarding: the historical points, exam findings, and any diagnostic results supporting the discharge/admit diagnosis, lab results, radiology results, the need for further work-up and treatment in the hospital. Response to treatment: the patient's symptoms have mildly improved after treatment. Admission orders: after a detailed discussion of the patient's condition and case, the admit orders are written by me. ED course: Pt with moderate dehydration, acidotic, zofran not helping at home, no acute findings on ct abdomen, will admit for rehydration and correction of electrolytes. . 08/02 15:14 Order name: Basic Metabolic Panel; Complete Time: 16:27 [facility] 08/02 15:14 Order name: CBC with Diff; Complete Time: 16:17 [facility] 08/02 15:14 Order name: Creatinine for Radiology; Complete Time: 16:59 [facility] 08/02 15:14 Order name: Hepatic Function; Complete Time: 16:27 [facility] 08/02 15:14 Order name: Lipase; Complete Time: 16:27 [facility] 08/02 15:27 Order name: Urine Microscopic Only rn 08/02 15:14 Order name: Labs collected and sent; Complete Time: 15:23 [facility] 08/02 15:27 Order name: CT Abd/Pelvis - Without Contrast; Complete Time: 16:17 08/02 15:27 Order name: Urine Dipstick-Ancillary (obtain specimen); Complete Time: 15:39 08/02 17:16 Order name: Urine Dipstick--Ancillary (enter results) em1 Administered Medications: 15:27 Drug: NS 0.9% 1000 ml Route: IV; Rate: 1000 ml; Site: Other; aa5 16:40 Follow up: IV Status: Completed infusion; IV Intake: 1000ml aa5 15:27 Drug: Phenergan 12.5 mg Route: IVP; Site: Other; aa5 15:32 Follow up: Response: No adverse reaction aa5 16:40 Drug: NS 0.9% 1000 ml Route: IV; Rate: 1000 ml; Site: Other; aa5 17:40 Follow up: IV Status: Completed infusion; IV Intake: 1000ml aa5 Disposition: 08/02/19 17:07 Hospitalization ordered by Marcelino Lewis for Observation. Preliminary diagnosis are Nausea and vomiting, Dehydration. - Bed requested for Telemetry/MedSurg (observation). - Status is Observation. aa5 - Condition is Stable. - Problem is new. - Symptoms have improved. UTI on Admission? 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 aa5 aa5 17:44 17:07 Hospitalization Ordered by Marcelino Lewis DO for Observation. Preliminary diagnosis is Nausea and vomiting; Dehydration. Bed requested for Telemetry/MedSurg (observation). Status is Observation. Condition is Stable. Problem is new. Symptoms have improved. UTI on Admission? No. rn 18:22 17:44 08/02/2019 17:07 Hospitalization Ordered by aMrcelino Lewis DO for Observation. aa5 Preliminary diagnosis is Nausea and vomiting; Dehydration. Bed requested for Telemetry/MedSurg (observation). Status is Observation. Condition is Stable. Problem is new. Symptoms have improved. UTI on Admission? No. dw
[2019-08-02 17:35] LABS: Urine Blood NEGATIVE (NEG); Urine Glucose NEGATIVE (NEG); Urine Protein NEGATIVE (NEG); Urine Specific Gravity <1.005 (1.005-1.030)
--- NOTE | 2019-08-02 17:50 | P.HP ---
Certification for Inpatient Patient admitted to: Observation With expected LOS: <2 Midnights Patient will require the following post-hospital care: None Practitioner: I am a practitioner with admitting privileges, knowledge of patient current condition, hospital course, and medical plan of care. Services: Services provided to patient in accordance with Admission requirements found in Title 42 Section 412.3 of the Code of Federal Regulations Patient History Date of Service: 08/02/19 Primary Care Provider: Dr. Espinoza; Nephrology-Dr. Pham; Surgery-Dr. Chung- [facility] Reason for admission: Nausea, vomiting and diarrhea History of Present Illness: 49-year-old female presented to the emergency room with increased nausea, vomiting and diarrhea. Patient with history of lupus, seizure disorder, hypertension and chronic renal disease. Patient also has significant history of prior colectomy with colostomy due to bowel obstruction. She recently had an ileostomy done about 2- 4 weeks ago at [facility]. Since that time she has been receiving IV fluids through a central line 4 times a week as recommended by her surgeon. Patient was apparently in the hospital for 2 weeks hydrating. Patient reports watery diarrhea. Recently her surgeon placed her on Imodium to help with her diarrhea. She denies any fever, chills. She feels she is not able to adequately hydrate herself. She came to the ER for further evaluation. In the ER patient evaluated. Blood pressure elevated. White count 5.3, hemoglobin 10.9. Platelet count of 211. Sodium 138, potassium 3.3. Chloride 115, bicarb 12, BUN of 50, creatinine 2.7 with a GFR 23. Glucose 101. Lipase unremarkable. CT abdomen showed no acute changes. Patient was given 2 L of IV fluid bolus in the emergency room. Patient admitted for further evaluation and treatment. When I saw the patient in the ER, patient appeared dry and dehydrated. Significant nausea vomiting noted at this time. Allergies morphine Allergy (Severe, Verified 09/07/17 09:12) Unknown Home medications list reviewed: Yes Home Medications: Hydralazine HCl 50 mg PO TID 07/09/15 Metoprolol Tartrate 100 mg PO BID 07/09/15 cloNIDine HCl [Clonidine HCl] 0.3 mg PO TID 07/09/15 Amlodipine [Norvasc*] 10 mg PO DAILY 08/08/15 Doxazosin [Cardura*] 4 mg PO DAILY 09/07/17 Gabapentin 400 mg PO TIDP PRN 09/07/17 Hydrocodone Bit/Acetaminophen [[place] 10-325 Tablet] 1 tab PO QIDP PRN 09/07/17 Hydroxychloroquine [Plaquenil*] 200 mg PO DAILY 09/07/17 Insulin NPH Hum/Reg Insulin Hm [Humulin 70/30 Kwikpen] 0 unit SQ BID PRN Mycophenolate Mofetil [Cellcept] 1,000 mg PO BID 09/07/17 Zolpidem Tartrate [Ambien] 5 mg PO BEDTIME PRN PRN 09/07/17 Amox/Clavulanate [Augmentin 500-125 mg Tab*] 500 mg PO BID #14 tab 11/03/17 Benzonatate [Tessalon [place]*] 200 mg PO TID PRN #20 cap 11/03/17 Fluticasone [Flonase 50MCG Nasal [place]*] 1 sprays RAY BID #1 btl 11/03/17 Amoxicillin/Potassium Clav [Augmentin 875-125 Tablet] 1 each PO BID #14 tablet 04/28/18 Docusate [Colace Cap*] 100 mg PO BID #60 cap 04/28/18 Furosemide [Lasix] 40 mg PO DAILY #30 tab 04/28/18 Psyllium [Metamucil (Hydrocil)*] 1 pkt PO DAILY packet 04/28/18 predniSONE [Deltasone] 40 mg PO DAILY #10 tablet 04/28/18 Peg 3350/Na Sulf,Bicarb,Cl/KCl [Golytely Solution] 4,000 ml PO DAILY #1 soln.recon 05/09/18 - Past Medical/Surgical History Diabetic: Yes -: Lupus, Rheumatology-Dr. Sandoval -: HTN -: Seizure disorder -: History of Small bowel obstruction -: Ileostomy in place -: CAD -: History of avascular necrosis -: History of pyelonephritis -: Depression with history of suicidal ideation -: -: Hysterectomy -: Bowel resection -: Colostomy -: trach (reversed) -: Removal of colostomy now with ileostomy Psychosocial/ Personal History: single, one child. - Family History Family History: Reviewed- Non-Contributory - Family History Sister Notes: lupus Father -: Kidney disease Notes: Mother -: Hypertension, Cancer Notes: , uterine Brother -: Hypertension, Diabetes - Social History Alcohol use: No CD- Drugs: No Caffeine use: No Place of Residence: Home Review of Systems General: Weakness, As per HPI Eyes: Unremarkable ENT: Unremarkable Respiratory: Unremarkable Cardiovascular: Unremarkable Gastrointestinal: Nausea, Vomiting, Diarrhea, As per HPI Genitourinary: Unremarkable Musculoskeletal: Unremarkable Integumentary: Unremarkable Neurological: Unremarkable Lymphatics: Unremarkable Physical Examination - Physical Exam General: Alert, In no apparent distress, Oriented x3, Cooperative HEENT: Atraumatic, Normocephalic, PERRLA, Other (Dry mucous membranes) Neck: Supple, No Thyromegaly Respiratory: Clear to auscultation bilaterally, Normal air movement Cardiovascular: Normal pulses, Regular rate/rhythm Gastrointestinal: Normal bowel sounds, Soft and benign, Non-distended, Other ( Postsurgical changes noted. Ileostomy in place. No significant abdominal pain) Musculoskeletal: No erythema, No tenderness, No warmth Integumentary: Other (Skin appears dry throughout) Neurological: Normal speech, Normal strength at 5/5 x4 extr, Normal tone, Normal affect - Studies Laboratory Data (last 24 hrs) 08/02/19 15:20: Creatinine 2.72 H 08/02/19 15:20: WBC 5.3, Hgb 10.9 L, Hct 33.8 L, Plt Count 211 08/02/19 15:20: Sodium 138, Potassium 3.3 L, BUN 50 H D, Creatinine 2.72 H, Glucose 101, Total Bilirubin 0.3, AST 11 L, ALT 12, Alkaline Phosphatase 189 H, Lipase 270 Assessment and Plan - Plan Impression: Nausea, vomiting and diarrhea with hyperchloric acidosis and acute on chronic renal failure stage 4 Chronic diarrhea likely related to high-output ileostomy complicated with history of prior colostomy/colectomy due to small bowel obstruction Hypertension, on controlled Lupus on disease modifying medication Seizure disorder Depression with anxiety Anemia likely of chronic disease Plan: Nausea, vomiting and diarrhea with hyperchloric acidosis and acute on chronic renal failure stage 4: Patient appears dehydrated. Patient received 2 L bolus in the emergency room. Will continue with aggressive IV fluid hydration. Case discussed with nephrology. Will start with D5 normal saline with 2 amps of bicarb to continue with IV fluids. Recheck and monitor lab closely. Electrolyte protocol in place. Will provide Imodium to help with her diarrhea. Will provide medication for nausea. Will continue to reassess. Await further recommendations by nephrology. Patient has central line in place. Continue with central line care. Will provide DVT prophylaxis. Will continue to monitor closely. Chronic diarrhea likely related to high-output ileostomy complicated with history of prior colostomy/colectomy due to small bowel obstruction: Patient seen by surgery at [facility]. Continue to monitor closely. Will provide Imodium for diarrhea. Will start lactobacillus. Will adjust diet appropriately. Will consult dietary to help with her diet. Hypertension, on controlled: Restart home medication of Norvasc, hydralazine, clonidine, doxazosin, and metoprolol Lupus on disease modifying medication: Will need to reconcile and restart home medication. Seizure disorder: Will need to reconcile and restart home medication Depression with anxiety: Will need to reconcile and restart home medication Anemia likely of chronic disease: Will monitor and adjust appropriately. Discharge Plan: Home Plan to discharge in: 48 Hours - Advance Directives Does patient have a Living Will: No Does patient have a Durable POA for Healthcare: No - Code Status/Comfort Care Code Status Assessed: Yes (Patient is full code) Time Spent Managing Pts Care (In Minutes): 55
[2019-08-02 18:27] LABS: Urine Amorphous Sediment 1+ /HPF (NONE SEEN); Urine Bacteria 20-50 /HPF (<20); Urine Culture Reflex Order REFLEXED; Urine RBC <5 /HPF (NONE SEEN)
[2019-08-02] MEDS ORDERED: D5 0.9 NS 1,000 ML IV SCH (18:39)
[2019-08-02] MEDS ORDERED: LOPERAMIDE HCL 2 MG CAPSULE PO PRN (18:39)
[2019-08-02] MEDS ORDERED: ACETAMINOPHEN 500 MG TAB PO PRN (18:39)
[2019-08-02] MEDS ORDERED: MAGNESIUM SULFATE 1 gm IVPB 1 GM/100 ML BAG IV ONE (20:10)
[2019-08-02] MEDS ORDERED: POTASSIUM 25 MEQ EFFERV TAB PO ONE (20:10)
[2019-08-02] MEDS ORDERED: DOXAZOSIN 2 MG TAB ONE (20:32)
[2019-08-02] MEDS: HYDROCODONE/APAP 10/325 TAB PO PRN (20:35)
[2019-08-02] MEDS: ENOXAPARIN 40 MG/0.4 ML SQ SCH (20:35)
[2019-08-02] MEDS: HYDRALAZINE HCL 25 MG TABLET PO SCH (20:36)
[2019-08-02] MEDS: LACTOBACILLUS/ACIDOPHILUS TAB PO SCH (20:36)
[2019-08-02] MEDS: DOXAZOSIN 4 MG TAB PO SCH (20:37)
[2019-08-02 20:39] LABS: Urine Appearance CLEAR; Urine Bilirubin NEGATIVE (NEG); Urine Blood NEGATIVE (NEG); Urine Color YELLOW; Urine Glucose NEGATIVE (NEG); Urine Protein NEGATIVE (NEG); Urine Specific Gravity <=1.005 (1.005-1.030); Urine Urobilinogen 0.2 mg/dL (0.2-1.0)
[2019-08-02] MEDS: METOPROLOL TAR 50 MG TAB PO SCH (20:39)
[2019-08-02 20:40] LABS: Urine Microscopic Reflex NO UMIC
[2019-08-02] MEDS ORDERED: CLONIDINE HCL 0.3 MG TAB PO SCH (21:00)
[2019-08-02 21:10] VITALS: BMI 28.9
[2019-08-02] MEDS ORDERED: PROMETHAZINE INJ 25 MG/ML AMP IV PRN (21:50)
[2019-08-02] MEDS ORDERED: SODIUM BICARB 50 MEQ/50ML VIAL IV ONE (23:00)
[2019-08-02] MEDS ORDERED: NACHLORIDE 0.45% 1,000 ML IV ONE (23:02)
[2019-08-02] MEDS ORDERED: SODIUM BICARB 50 MEQ/50ML VIAL ONE (23:04)
[2019-08-02] MEDS ORDERED: KCL 20 MEQ/100 mL IVPB 20 MEQ/100 ML BAG IV ONE (23:14)
[2019-08-02] MEDS: POTASSIUM CL IV SCH ×3 (23:32)
[2019-08-02] MEDS: NACHLORIDE 0.45% IV SCH ×3 (23:32)
[2019-08-02] MEDS: NA BICARB IV SCH ×3 (23:32)
[2019-08-03] MEDS: HYDROCODONE/APAP 10/325 TAB PO PRN ×3 (04:26→20:46)
[2019-08-03 06:20] LABS: Absolute Lymphocytes (CBC) 2.3 K/uL (0.7-4.9); Basophils % 0.6 % (0-1.3); Hematocrit 28.4 % (36.0-45.0); Lymphocytes % 47.6 % (15.3-44.8); MPV 7.7 fL (7.6-11.3); RBC Red Blood Cell Count 3.56 M/uL (3.86-4.86)
[2019-08-03 06:32] LABS: Potassium 3.1 mmol/L (3.5-5.1)
[2019-08-03 06:33] LABS: Magnesium 2.1 mg/dL (1.8-2.4); Phosphorus 3.2 mg/dL (2.5-4.9); Uric Acid 8.4 mg/dL (2.6-6.0)
[2019-08-03] MEDS: POTASSIUM CL IV SCH ×3 (07:51)
[2019-08-03] MEDS: NA BICARB IV SCH ×3 (07:51)
[2019-08-03] MEDS: NACHLORIDE 0.45% IV SCH ×3 (07:51)
--- NOTE | 2019-08-03 08:28 | P.CNS ---
Date of Consult: 08/03/19 Reason for Consult: DAE with Electrolyte Abn Requesting Physician: Marcelino Lewis Primary Care Provider: Dr. Espinoza; Nephrology-Dr. Pham; Surgery-Dr. Chung- [facility] Chief Complaint: Nausea, vomiting and diarrhea History of Present Illness: 49-year-old female presented to the emergency room with increased nausea, vomiting and diarrhea. Patient with history of lupus, seizure disorder, hypertension and chronic renal disease. Patient also has significant history of prior colectomy with colostomy due to bowel obstruction. She recently had an ileostomy done about 2- [address] [facility]. Since that time she has been receiving IV fluids through a central line 4 times a week as recommended by her surgeon. Patient was apparently in the hospital for 2 weeks hydrating. Patient reports watery diarrhea. Recently her surgeon placed her on Imodium to help with her diarrhea. She denies any fever, chills. She feels she is not able to adequately hydrate herself. She came to the ER for further evaluation. 16:08 This 49 yrs old Black Female presents to ER via EMS with complaints of Back Pain, rn Nausea/Vomiting, Central line problem. 16:08 The patient presents to the emergency department with nausea, vomiting. rn 16:09 Onset: The symptoms/episode began/occurred 3 day(s) ago. Possible causes: unknown. The rn symptoms are aggravated by nothing. The symptoms are alleviated by prescription meds. Severity of symptoms: At their worst the symptoms were mild in the emergency department the symptoms are unchanged. The patient has experienced similar episodes in the past. Reports low back pain, nausea/vomiting for 3-4 days, no diarrhea or blood in emesis/stool. No fever. Reports colostomy changed to ileostomy 2 weeks ago , no abd pain. Also reports central line seems clogged, and is supposed to get IV fluids 4x/week. takes zofran at home for nausea but only works sometimes. Allergies morphine Allergy (Severe, Verified 09/07/17 09:12) Unknown Home medications list reviewed: Yes Home Medications: Hydralazine HCl 50 mg PO TID 07/09/15 Metoprolol Tartrate 100 mg PO BID 07/09/15 cloNIDine HCl [Clonidine HCl] 0.3 mg PO TID 07/09/15 Amlodipine [Norvasc*] 10 mg PO DAILY 08/08/15 Doxazosin [Cardura*] 4 mg PO DAILY 09/07/17 Gabapentin 400 mg PO DAILY PRN 09/07/17 Hydrocodone Bit/Acetaminophen [[place] 10-325 Tablet] 1 tab PO QIDP PRN 09/07/17 Hydroxychloroquine [Plaquenil*] 200 mg PO DAILY 09/07/17 Insulin NPH Hum/Reg Insulin Hm [Humulin 70/30 Kwikpen] 0 unit SQ BID PRN Zolpidem Tartrate [Ambien] 5 mg PO BEDTIME PRN PRN 09/07/17 Furosemide [Lasix] 80 mg PO BID 08/02/19 Mycophenolate Mofetil [Cellcept] 2 tab PO BID 08/02/19 Levetiracetam [Keppra] 750 mg PO BID 08/03/19 [place] HCl 5 mg PO TID 08/03/19 - Past Medical/Surgical History Diabetic: Yes -: Lupus, Rheumatology-Dr. Rothman -: HTN -: Seizure disorder -: History of Small bowel obstruction -: Ileostomy in place -: CAD -: History of avascular necrosis -: History of pyelonephritis -: Depression with history of suicidal ideation -: depression -: -: Hysterectomy -: Bowel resection -: Colostomy -: trach (reversed) -: Removal of colostomy now with ileostomy Psychosocial/ Personal History: single, one child. - Family History Sister Notes: lupus Father Medical History: Kidney disease Notes: Mother Medical History: Hypertension, Cancer Notes: , uterine Brother Medical History: Hypertension, Diabetes - Social History Smoking Status: Unknown if ever smoked Alcohol use: No CD- Drugs: No Caffeine use: Yes Place of Residence: Home Review of Systems 10-point ROS is otherwise unremarkable General: Weakness, Malaise Gastrointestinal: Nausea Neurological: Weakness Physical Examination Temp Pulse Resp BP Pulse Ox 97.3 F 66 15 170/90 H 99 08/03/19 04:00 08/03/19 04:00 08/03/19 04:00 08/03/19 04:00 08/03/19 04:00 General: In no apparent distress, Oriented x3, Cooperative HEENT: Atraumatic Neck: Supple Respiratory: Clear to auscultation bilaterally Cardiovascular: No edema, Regular rate/rhythm Gastrointestinal: Soft and benign (RLQ ostomy), No guarding Musculoskeletal: No clubbing, No contractures Integumentary: No rashes, No cyanosis Laboratory Data (last 24 hrs) 08/02/19 15:20: Creatinine 2.72 H 08/02/19 15:20: WBC 5.3, Hgb 10.9 L, Hct 33.8 L, Plt Count 211 08/02/19 15:20: Sodium 138, Potassium 3.3 L, BUN 50 H D, Creatinine 2.72 H, Glucose 101, Total Bilirubin 0.3, AST 11 L, ALT 12, Alkaline Phosphatase 189 H, Lipase 270 Imagings Data: EXAM DESCRIPTION: CT - Abdomen Pelvis Wo Contrast - 08/02/2019 3:40 pm CLINICAL HISTORY: Abdominal pain vomiting COMPARISON: 2017 TECHNIQUE: Computed axial tomography of the abdomen and pelvis was obtained. IV and oral contrast were not requested. All CT scans are performed using dose optimization technique as appropriate and may include automated exposure control or mA/KV adjustment according to patient size. FINDINGS: The evaluation of solid organs, vessels and bowel is limited secondary to the lack of contrast administration. Right lower quadrant ileostomy. Postsurgical changes involve the colon. The bowel caliber is normal. The liver, spleen, pancreas and adrenals appear grossly normal. Tiny nonobstructing right renal calculus. Small left renal cyst suspected. Laxity anterior abdominal wall IMPRESSION: Right lower quadrant ileostomy. Postsurgical changes involve the colon. No evidence of a bowel obstruction No acute abnormality is displayed Conclusions/Impression: A/ DAE due to hypovolemia. High output ostomy. Hypokalemia. Acidosis. Hypocalcemia. CKD III/ IV with proteinuria. HTN with CKD. Anemia in chronic illness. P/Continue current POC and Medications. IVF adjusted. Give oral potassium. Start oral bicarb. Start Vitamin D. No NSAIDs. AM labs. Daily weight. Thank you kindly for the consultation.
[2019-08-03] MEDS ORDERED: POTASSIUM 25 MEQ EFFERV TAB PO ONE ×3 (09:00→21:13)
[2019-08-03] MEDS: SODIUM BICARB 325 MG TAB PO SCH ×4 (09:22→20:45)
[2019-08-03] MEDS: VITAMIN D 5,000 UNIT CAP PO SCH (09:22)
[2019-08-03] MEDS: CALCITROL 0.25 MCG CAP PO SCH (09:22)
[2019-08-03] MEDS: D5W 1,000 ML with NA BICARB 8.4% 75 MEQ IV SCH ×4 (09:22→19:32)
[2019-08-03] MEDS: ENOXAPARIN 40 MG/0.4 ML SQ SCH (09:23)
[2019-08-03] MEDS: LACTOBACILLUS/ACIDOPHILUS TAB PO SCH ×2 (09:24→20:45)
[2019-08-03] MEDS: METOPROLOL TAR 50 MG TAB PO SCH ×2 (09:24→20:44)
[2019-08-03] MEDS: HYDRALAZINE HCL 25 MG TABLET PO SCH ×3 (09:24→20:45)
[2019-08-03] MEDS: AMLODIPINE 10 MG TAB PO SCH (09:27)
[2019-08-03 09:54] LABS: Blood Morphology Comment NOT SEEN (NOT SEEN); Platelet Estimate ADEQ
[2019-08-03] MEDS: ONDANSETRON 4 MG/2 ML VIAL IV PRN (10:58)
[2019-08-03] MEDS: PROMETHAZINE INJ 25 MG/ML AMP IV PRN ×2 (11:55→20:48)
[2019-08-03 12:01] LABS: C.diff Antigen/Toxin Ag neg : Tox neg (NEG : NEG)
[2019-08-03] MEDS ORDERED: HYDROMORPHONE ORAL 2 MG TAB PO ONE (15:46)
[2019-08-03] MEDS: ENSURE HIGH PROTEIN 237 ML CAN PO SCH (20:44)
[2019-08-03] MEDS: DOXAZOSIN 4 MG TAB PO SCH (20:45)
[2019-08-03] MEDS: levETIRAcetam 500 MG TAB PO SCH (20:46)
[2019-08-03] MEDS ORDERED: LABETALOL 20 MG/4ML SYRINGE IV PRN (21:26)
[2019-08-03] MEDS: HYDROMORPHONE HCL 1 MG/ML INJ IV PRN (22:51)
[2019-08-03] MEDS: HYDRALAZINE HCL 20 MG/ML VIAL IV PRN (22:51)
[2019-08-04] MEDS: ONDANSETRON 4 MG/2 ML VIAL IV PRN (01:19)
[2019-08-04] MEDS: D5W 1,000 ML with NA BICARB 8.4% 75 MEQ IV SCH ×6 (02:12→10:48)
[2019-08-04] MEDS: HYDRALAZINE HCL 20 MG/ML VIAL IV PRN (03:09)
[2019-08-04] MEDS ORDERED: cloNIDine HCL 0.1 MG TAB PO ONE (03:17)
[2019-08-04] MEDS: HYDROMORPHONE HCL 1 MG/ML INJ IV PRN ×2 (03:58→09:38)
[2019-08-04] MEDS: PROMETHAZINE INJ 25 MG/ML AMP IV PRN ×2 (04:11→09:37)
[2019-08-04 04:58] VITALS: O2SAT 97
[2019-08-04 05:11] LABS: Absolute Lymphocytes (CBC) 2.1 K/uL (0.7-4.9); Basophils % 0.6 % (0-1.3); Hematocrit 30.7 % (36.0-45.0); Lymphocytes % 33.2 % (15.3-44.8); MPV 8.1 fL (7.6-11.3); RBC Red Blood Cell Count 3.85 M/uL (3.86-4.86)
[2019-08-04 05:25] LABS: Magnesium 1.7 mg/dL (1.8-2.4); Potassium 3.3 mmol/L (3.5-5.1)
[2019-08-04] MEDS ORDERED: POTASSIUM CL SA 10 MEQ TAB PO ONE (06:30)
[2019-08-04] MEDS: VITAMIN D 5,000 UNIT CAP PO SCH (08:20)
[2019-08-04] MEDS: SODIUM BICARB 325 MG TAB PO SCH (08:20)
[2019-08-04] MEDS: CALCITROL 0.25 MCG CAP PO SCH (08:20)
[2019-08-04] MEDS: LACTOBACILLUS/ACIDOPHILUS TAB PO SCH (08:21)
[2019-08-04] MEDS: METOPROLOL TAR 50 MG TAB PO SCH (08:21)
[2019-08-04] MEDS: ENSURE HIGH PROTEIN 237 ML CAN PO SCH ×2 (08:22→08:32)
[2019-08-04] MEDS: HYDRALAZINE HCL 25 MG TABLET PO SCH (08:22)
[2019-08-04] MEDS: levETIRAcetam 500 MG TAB PO SCH (08:26)
[2019-08-04] MEDS ORDERED: ENOXAPARIN 30 MG/0.3 ML SQ SCH (09:00)
[2019-08-04] MEDS ORDERED: MAGNESIUM SULFATE 1 gm IVPB 1 GM/100 ML BAG IV ONE (09:00)
[2019-08-04] MEDS: AMLODIPINE 10 MG TAB PO SCH (09:00)
--- NOTE | 2019-08-04 11:42 | P.PN ---
Subjective Date of Service: 08/03/19 Primary Care Provider: Dr. Espinoza; Nephrology-Dr. Pham; Surgery-Dr. Chung- [facility] Chief Complaint: Nausea, vomiting and diarrhea Patient states the nausea and vomiting have improved. She still has significant output from her ileostomy, watery consistency. Physical Examination - Vital Signs Temperature: 98.7 F Blood Pressure: 172/98 Pulse: 88 Respirations: 19 Pulse Ox (%): 96 - Physical Exam General: Alert, In no apparent distress, Oriented x3 HEENT: Mucous membr. moist/pink Neck: Supple, JVD not distended Respiratory: Clear to auscultation bilaterally, Normal air movement Cardiovascular: No edema, Regular rate/rhythm, Normal S1 S2 Gastrointestinal: Normal bowel sounds, Soft and benign, Non-distended, Other ( Right lower quadrant ileostomy) Musculoskeletal: No swelling Integumentary: No rashes Neurological: Normal speech, Normal strength at 5/5 x4 extr Assessment And Plan - Current Problems (Diagnosis) (1) DAE (acute kidney injury) Onset Date: 04/28/18 Current Visit: No Status: Acute (2) Abdominal pain Onset Date: 12/10/15 Current Visit: No Status: Acute (3) Chronic renal disease Current Visit: No Status: Chronic Qualifiers: Chronic kidney disease stage: stage 3 (moderate) Qualified Code(s): N18.3 - Chronic kidney disease, stage 3 (moderate) (4) Metabolic acidosis Onset Date: 02/02/17 Current Visit: No Status: Acute (5) Nausea and vomiting Onset Date: 09/07/17 Current Visit: No Status: Acute Qualifiers: Vomiting type: unspecified Vomiting Intractability: non-intractable Qualified Code(s): R11.2 - Nausea with vomiting, unspecified (6) Hypertension Onset Date: 10/31/17 Current Visit: No Status: Chronic Qualifiers: Hypertension type: essential hypertension Qualified Code(s): I10 - Essential (primary) hypertension (7) Seizure disorder Onset Date: 04/28/18 Current Visit: No Status: Chronic - Plan Continue IV hydration. Patient seen by nephrology and started on bicarb replacement. Continue to monitor renal function. Stool for C. diff is negative. Imodium p.r.n. for watery diarrhea. Advanced diet as tolerated. Continue home antihypertensives Continue Keppra for history of seizures.
--- NOTE | 2019-08-04 11:48 | P.DS ---
Admission Date: 08/02/19 Discharge Date: 08/04/19 Primary Care Provider: Dr. Espinoza; Nephrology-Dr. Pham; Surgery-Dr. Chung- [place] Disposition: DC HOME/HOME HEALTH CARE Discharge Condition: GOOD Reason for Admission: Nausea, vomiting and diarrhea - Problems (1) DAE (acute kidney injury) Onset Date: 04/28/18 Current Visit: No Status: Acute (2) Abdominal pain Onset Date: 12/10/15 Current Visit: No Status: Acute (3) Chronic renal disease Current Visit: No Status: Chronic Qualifiers: Chronic kidney disease stage: stage 3 (moderate) Qualified Code(s): N18.3 - Chronic kidney disease, stage 3 (moderate) (4) Metabolic acidosis Onset Date: 02/02/17 Current Visit: No Status: Acute (5) Nausea and vomiting Onset Date: 09/07/17 Current Visit: No Status: Acute Qualifiers: Vomiting type: unspecified Vomiting Intractability: non-intractable Qualified Code(s): R11.2 - Nausea with vomiting, unspecified (6) Hypertension Onset Date: 10/31/17 Current Visit: No Status: Chronic Qualifiers: Hypertension type: essential hypertension Qualified Code(s): I10 - Essential (primary) hypertension (7) Seizure disorder Onset Date: 04/28/18 Current Visit: No Status: Chronic Brief History of Present Illness: 49-year-old woman with a history of lupus, bowel obstruction status post colectomy and colostomy, recent ileostomy presented emergency department with a complaint of nausea and vomiting and high output from the ileostomy. Patient mentioned she has been getting IV infusion at home as recommended by her surgeon. She reports progressive weakness. In the ED, blood work demonstrated acute renal failure with metabolic acidosis. Patient was given a bolus of IV fluid and admitted for further management. Hospital Course: Patient admitted to the medical floor and aggressively rehydrated with IV fluids. Nephrology was consulted, patient was seen by Dr. Adkins, she was placed on oral bicarbonate replacement. She was also placed on Imodium for the watery diarrhea. UA was negative for UTI. Metabolic acidosis resolved with treatment, her serum creatinine trended down. Patient tolerated feeding today and she is deemed clinically stable for discharge. She will follow with Dr. Adkins regarding her renal function. She is also prescribed bicarb replacement to treat metabolic acidosis from ongoing high ileostomy output. Vital Signs/Physical Exam: Temp Pulse Resp BP Pulse Ox 98.7 F 88 19 172/98 H 96 08/04/19 11:42 08/04/19 11:42 08/04/19 11:42 08/04/19 11:42 08/04/19 11:42 General: Alert, In no apparent distress, Oriented x3 HEENT: Mucous membr. moist/pink Neck: Supple, JVD not distended Respiratory: Clear to auscultation bilaterally, Normal air movement Cardiovascular: No edema, Regular rate/rhythm, Normal S1 S2 Gastrointestinal: Normal bowel sounds, Soft and benign, Non-distended Musculoskeletal: No swelling Integumentary: No rashes Neurological: Normal speech, Normal strength at 5/5 x4 extr Laboratory Data at Discharge: WBC 6.3 K/uL (4.3-10.9) D 08/04/19 04:30 Hgb 10.1 g/dL (12.0-15.0) L 08/04/19 04:30 Hct 30.7 % (36.0-45.0) L 08/04/19 04:30 Plt Count 214 K/uL (152-406) 08/04/19 04:30 Sodium 140 mmol/L (136-145) 08/04/19 04:30 Potassium 3.3 mmol/L (3.5-5.1) L 08/04/19 04:30 BUN 24 mg/dL (7-18) H 08/04/19 04:30 Creatinine 1.77 mg/dL (0.55-1.3) H 08/04/19 04:30 Glucose 136 mg/dL (74-106) H 08/04/19 04:30 Uric Acid 8.4 mg/dL (2.6-6.0) H 08/03/19 05:51 Phosphorus 3.2 mg/dL (2.5-4.9) 08/03/19 05:51 Magnesium 1.7 mg/dL (1.8-2.4) L 08/04/19 04:30 Total Bilirubin 0.3 mg/dL (0.2-1.0) 08/02/19 15:20 AST 11 U/L (15-37) L 08/02/19 15:20 ALT 12 U/L (12-78) 08/02/19 15:20 Alkaline Phosphatase 189 U/L (45-117) H 08/02/19 15:20 Lipase 270 U/L (73-393) 08/02/19 15:20 Home Medications: Hydralazine HCl 50 mg PO TID 07/09/15 Metoprolol Tartrate 100 mg PO BID 07/09/15 cloNIDine HCl [Clonidine HCl] 0.3 mg PO TID 07/09/15 Amlodipine [Norvasc*] 10 mg PO DAILY 08/08/15 Doxazosin [Cardura*] 4 mg PO DAILY 09/07/17 Gabapentin 400 mg PO DAILY PRN 09/07/17 Hydrocodone Bit/Acetaminophen [Harriman 10-325 Tablet] 1 tab PO QIDP PRN 09/07/17 Hydroxychloroquine [Plaquenil*] 200 mg PO DAILY 09/07/17 Zolpidem Tartrate [Ambien] 5 mg PO BEDTIME PRN PRN 09/07/17 Mycophenolate Mofetil [Cellcept] 2 tab PO BID 08/02/19 Levetiracetam [Keppra] 750 mg PO BID 08/03/19 Pilocarpine HCl 5 mg PO TID 08/03/19 Calcitrol [Rocaltrol*] 0.5 mcg PO DAILY 30 Days #30 cap 08/04/19 Cholecalciferol (Vitamin D3) [Vitamin D 5,000 IU Cap*] 5,000 unit PO DAILY #30 cap 08/04/19 Loperamide [Imodium*] 2 mg PO Q4H PRN #30 cap 08/04/19 Na Bicarb Tab [Sodium Bicarb 325 MG Tab*] 650 mg PO QID #60 tab 08/04/19 New Medications: Calcitrol [Rocaltrol*] 0.5 mcg PO DAILY 30 Days #30 cap Cholecalciferol (Vitamin D3) [Vitamin D 5,000 IU Cap*] 5,000 unit PO DAILY #30 cap Loperamide [Imodium*] 2 mg PO Q4H PRN #30 cap PRN Reason: Diarrhea Na Bicarb Tab [Sodium Bicarb 325 MG Tab*] 650 mg PO QID #60 tab Diet: Regular Activity: Ad jorge Followup: Alexx Adkins DO [ACTIVE - CAN ADMIT] - 1-2 Weeks Time spent managing pt's care (in minutes): 36
[2019-08-04 12:15] VITALS: BP 150/80
[2019-08-04 13:31] VITALS: TEMP 98.4
== END 2019-08-04 12:54 | disposition home health service (06) ==
LOC: ER 14:13 → ERHOLD 17:30 → 2ND 18:17
PROVIDERS: ADMIT Family Medicine; ATTEND Family Medicine
DX: N17.9 Acute kidney failure, unspecified (principal); I12.9 Hypertensive chronic kidney disease with stage 1 through stage 4 chronic kidney disease, or unspecified chronic kidney disease; N18.3 Chronic kidney disease, stage 3 (moderate); E87.2 Acidosis; R11.2 Nausea with vomiting, unspecified; R19.7 Diarrhea, unspecified; E87.6 Hypokalemia; E83.51 Hypocalcemia; M32.9 Systemic lupus erythematosus, unspecified; Z93.2 Ileostomy status; G40.909 Epilepsy, unspecified, not intractable, without status epilepticus
CPT/HCPCS: 96361; 87088; 87045; 85025 ×3; 87086; 80048 ×3; 36415 ×2; 83735 ×2; 87177; 84100; 84132; 80076; 84550; 87046; 87209; 87324; 83690; 83540; 87449; 84466; 74176; 96374; 99285; J0360; J2550 ×6; J1650 ×3; J3475 ×2; J1170 ×3; J7030 ×2; J2405 ×2; G0378 ×4; 81003; 81015

== ENCOUNTER 2019-09-08 18:51 | Emergency (ER) | payer OTHER ==
--- OUTSIDE RECORDS SUMMARY | 2019-09-08 18:55 | XMS REPORT ---
:1970 [facility] [address] [place] [address] Care Team Providers Name Role Phone ABEL LI Unavailable Unavailable Problems This patient has no known problems. Allergies, Adverse Reactions, Alerts This patient has no known allergies or adverse reactions. Medications This patient has no known medications. Results Test Description Test Time Test Comments Text Results Atomic Results Result Comments BLOOD CULTURE 2018-08-02 17:01:00 Test Item Value Reference Range Comments CULTURE (BEAKER) (test mycv=4716) No growth in 5 days LUPUS ANTICOAGULANT SCREEN WITH REFLEX TO [id number] 16:08:00 Test Item Value Reference Range Comments DRVV SCREEN RATIO (BEAKER) 1.55 <1.20 (test zqxk=7948) DRVV CONFIRM RATIO (test 0.93 azut=2883) DRVV NORMALIZED RATIO (test 1.67 <1.20 wxkj=6362) DRVV INTERPRETATION (BEAKER) Positive screen for Lupus (test wqvm=1408) Anticoagulant with hexagonal phospholipid confirmation. Suggest repeat testing in 12 weeks and when patient not receiving anticoagulant therapy. PROTIME (BEAKER) (test 15.0 seconds 11.7-14.7 ogpo=345) INR (BEAKER) (test jsfg=119) 1.2 <=5.9 PARTIAL THROMBOPLASTIN TIME 36.1 seconds 22.5-36.0 (BEAKER) (test msqg=349) PTT-LA (BEAKER) (test 45.2 32.0-41.8 ozyo=[id number]) LBBA-ADXPIBOYLRG-110 (BEAKER) Cindy Chavira MD (test hddn=3753) (electronic signature) HEXAGONAL [id number] 14:08:00 Test Item Value Reference Range Comments HEXAGONAL PHOSPHOLIPID (BEAKER) (test trqn=5616) Positive BLOOD [id number] 10:01:00 Test Item Value Reference Range Comments CULTURE (BEAKER) (test kfaw=6735) No growth in 5 days DOUBLE-STRANDED DNA (DSDNA) [id number] 05:52:00 Test Item Value Reference Range Comments ANTI-DNA DS (BEAKER) (test hsiz=8040) Negative CARDIOLIPIN ANTIBODIES, IGG AND [id number] 15:01:00 Test Item Value Reference Range Comments ANTICARDIOLIPIN IGG ANTIBODY (BEAKER) (test < GPL <20.0 hduf=369) ANTICARDIOLIPIN IGM ANTIBODY (BEAKER) (test 2.1 MPL <20.0 gwbe=105) Anticardiolipin IgG Result Interpretation: <20.0 GPL Normal>/=20.0 GPL PositiveAnticardiolipin IgM Result Interpretation: <20.0 MPL Normal>/= 20.0 MPL PositiveCALCIUM, [id number] 05:12:00 Test Item Value Reference Range Comments CALCIUM IONIZED (BEAKER) (test jnlu=142) 1.01 mmol/L 1.12-1.27 PH, BLOOD (BEAKER) (test qwsp=1848) 7.45 POCT-GLUCOSE [id number] 21:30:00 Test Item Value Reference Range Comments POC-GLUCOSE METER (BEAKER) 116 mg/dL 70-110 TESTED AT [address] (test gxvk=2400) [place] [address] POCT-GLUCOSE [id number] 17:32:00 Test Item Value Reference Range Comments POC-GLUCOSE METER (BEAKER) 125 mg/dL 70-110 TESTED AT [address] (test gfbh=2858) [place] [id number] POCT-GLUCOSE [id number] 11:28:00 Test Item Value Reference Range Comments POC-GLUCOSE METER (BEAKER) 115 mg/dL 70-110 TESTED AT [address] (test yugx=8056) [place] [address] POCT-GLUCOSE [id number] 07:41:00 Test Item Value Reference Range Comments POC-GLUCOSE METER (BEAKER) 108 mg/dL 70-110 TESTED AT [address] (test uall=0608) [place] [address] [id number] 07:06:00 Test Item Value Reference Range Comments MAGNESIUM (BEAKER) (test 1.8 mg/dL 1.6-2.6 Specimen slightly hemolyzed dmuz=228) [id number] 07:06:00 Test Item Value Reference Range Comments PHOSPHORUS (BEAKER) (test 2.4 mg/dL 2.3-4.7 Specimen slightly hemolyzed izhf=126) COMPREHENSIVE METABOLIC [id number] 07:06:00 Test Item Value Reference Range Comments TOTAL PROTEIN (BEAKER) 7.5 gm/dL 6.0-8.3 Specimen slightly (test lyco=101) hemolyzed ALBUMIN (BEAKER) (test 3.7 g/dL 3.5-5.0 Specimen slightly yxkx=6558) hemolyzed ALKALINE PHOSPHATASE 118 U/L 40-150 (BEAKER) (test vsfc=730) BILIRUBIN TOTAL (BEAKER) 0.6 mg/dL 0.2-1.2 Specimen slightly (test zkny=997) hemolyzed SODIUM (BEAKER) (test 141 meq/L 136-145 xmst=698) POTASSIUM (BEAKER) (test 3.3 meq/L 3.5-5.1 Specimen slightly vcba=141) hemolyzed CHLORIDE (BEAKER) (test 112 meq/L 98-107 cjka=688) CO2 (BEAKER) (test 20 meq/L 22-29 ldzf=848) BLOOD UREA NITROGEN 17 mg/dL 7-21 (BEAKER) (test juky=959) CREATININE (BEAKER) (test 1.53 mg/dL 0.57-1.25 Specimen slightly ztvj=459) hemolyzed GLUCOSE RANDOM (BEAKER) 102 mg/dL 70-105 (test udey=725) CALCIUM (BEAKER) (test 9.0 mg/dL 8.4-10.2 jbqq=201) AST (SGOT) (BEAKER) (test 30 U/L 5-34 Specimen slightly plnm=994) hemolyzed ALT (SGPT) (BEAKER) (test 12 U/L 6-55 Specimen slightly jjxp=859) hemolyzed EGFR (BEAKER) (test 44 mL/min/1.73 sq m ESTIMATED GFR IS NOT jhld=0683) ACCURATE CREATININE CLEARANCE IN PREDICTING GLOMERULAR FILTRATION RATE. ESTIMATED GFR IS NOT APPLICABLE FOR DIALYSIS PATIENTS. HEPATIC FUNCTION [id number] 07:06:00 Test Item Value Reference Range Comments TOTAL PROTEIN (BEAKER) (test 7.5 gm/dL 6.0-8.3 Specimen slightly hemolyzed onlx=995) ALBUMIN (BEAKER) (test 3.7 g/dL 3.5-5.0 Specimen slightly hemolyzed gtqq=8486) BILIRUBIN TOTAL (BEAKER) (test 0.6 mg/dL 0.2-1.2 Specimen slightly hemolyzed vqnv=029) BILIRUBIN DIRECT (BEAKER) (test 0.3 mg/dL 0.1-0.5 Specimen slightly hemolyzed amsz=990) ALKALINE PHOSPHATASE (BEAKER) 118 U/L 40-150 (test cwyy=015) AST (SGOT) (BEAKER) (test 30 U/L 5-34 Specimen slightly hemolyzed ytwu=079) ALT (SGPT) (BEAKER) (test 12 U/L 6-55 Specimen slightly hemolyzed dlge=810) CALCIUM, [id number] 06:42:00 Test Item Value Reference Range Comments CALCIUM IONIZED (BEAKER) (test rzyl=469) 1.16 mmol/L 1.12-1.27 PH, BLOOD (BEAKER) (test nalf=0346) 7.42 CBC W/PLT COUNT & AUTO [id number] 05:10:00 Test Item Value Reference Range Comments WHITE BLOOD CELL COUNT (BEAKER) (test ozej=743) 5.9 K/ L 3.5-10.5 RED BLOOD CELL COUNT (BEAKER) (test wdom=200) 3.45 M/ L 3.93-5.22 HEMOGLOBIN (BEAKER) (test tgjs=839) 9.1 GM/DL 11.2-15.7 HEMATOCRIT (BEAKER) (test odul=085) 28.8 % 34.1-44.9 MEAN CORPUSCULAR VOLUME (BEAKER) (test ewfj=878) 83.5 fL 79.4-94.8 MEAN CORPUSCULAR HEMOGLOBIN (BEAKER) (test 26.4 pg 25.6-32.2 whyj=383) MEAN CORPUSCULAR HEMOGLOBIN CONC (BEAKER) (test 31.6 GM/DL 32.2-35.5 dcik=598) RED CELL DISTRIBUTION WIDTH (BEAKER) (test 14.4 % 11.7-14.4 rvzp=492) PLATELET COUNT (BEAKER) (test jkdj=153) 220 K/CU MM 150-450 MEAN PLATELET VOLUME (BEAKER) (test lhbg=780) 9.7 fL 9.4-12.3 NUCLEATED RED BLOOD CELLS (BEAKER) (test 0 /100 WBC 0-0 bwmj=465) NEUTROPHILS RELATIVE PERCENT (BEAKER) (test 53 % tjhg=946) LYMPHOCYTES RELATIVE PERCENT (BEAKER) (test 25 % quob=263) MONOCYTES RELATIVE PERCENT (BEAKER) (test 14 % zror=051) EOSINOPHILS RELATIVE PERCENT (BEAKER) (test 8 % rgcj=966) BASOPHILS RELATIVE PERCENT (BEAKER) (test 1 % vjdh=402) NEUTROPHILS ABSOLUTE COUNT (BEAKER) (test 3.09 K/ L 1.56-6.13 qztc=899) LYMPHOCYTES ABSOLUTE COUNT (BEAKER) (test 1.46 K/ L 1.18-3.74 rqsa=945) MONOCYTES ABSOLUTE COUNT (BEAKER) (test 0.79 K/ L 0.24-0.36 dvbw=228) EOSINOPHILS ABSOLUTE COUNT (BEAKER) (test 0.46 K/ L 0.04-0.36 kqmo=898) BASOPHILS ABSOLUTE COUNT (BEAKER) (test 0.05 K/ L 0.01-0.08 prxe=368) IMMATURE GRANULOCYTES-RELATIVE PERCENT (BEAKER) 0 % 0-1 (test twhm=5585) POCT-GLUCOSE [id number] 23:12:00 Test Item Value Reference Range Comments POC-GLUCOSE METER (BEAKER) 95 mg/dL 70-110 TESTED AT [address] (test vrad=4107) [place] [id number] POCT-GLUCOSE [id number] 18:51:00 Test Item Value Reference Range Comments POC-GLUCOSE METER (BEAKER) 118 mg/dL 70-110 TESTED AT [address] (test dsfi=3353) [place] [id number] HEMOGLOBIN AND [id number] 16:28:00 Test Item Value Reference Range Comments HEMOGLOBIN (BEAKER) (test uxih=350) 8.7 GM/DL 11.2-15.7 HEMATOCRIT (BEAKER) (test eldh=636) 27.8 % 34.1-44.9 POCT-GLUCOSE [id number] 15:00:00 Test Item Value Reference Range Comments POC-GLUCOSE METER (BEAKER) 140 mg/dL 70-110 TESTED AT [address] (test dmwm=7145) [facility] [address] POCT-GLUCOSE [id number] 14:46:00 Test Item Value Reference Range Comments POC-GLUCOSE METER (BEAKER) 44 mg/dL 70-110 Notified LUIS WALTER/TESTED AT [facility] (test mwgz=0390) [address] [place] [address] POCT-GLUCOSE [id number] 13:05:00 Test Item Value Reference Range Comments POC-GLUCOSE METER (BEAKER) 87 mg/dL 70-110 TESTED AT [address] (test edwm=6374) [facility] [address] POCT-GLUCOSE [id number] 11:57:00 Test Item Value Reference Range Comments POC-GLUCOSE METER (BEAKER) 65 mg/dL 70-110 Notified LUIS WALTER/TESTED AT [facility] (test reyg=4097) [address] [place], [place] [id number] VANCOMYCIN LEVEL, [id number] 10:58:00 Test Item Value Reference Range Comments VANCOMYCIN TROUGH (BEAKER) (test mzsw=015) 14.2 ug/mL 10.0-20.0 RAD, ABDOMEN/KUB, 1 VIEW [id number] 09:41:00Reason for exam:->abdominal painFINAL REPORT AP abdomen, two images HISTORY: Abdominal pain COMPARISON: 07/28/2013 IMPRESSION:Grossly nonobstructive bowel gas pattern. Intact skeleton. Signed: Vikas Guillen MDReport Verified Date/ Time: 07/30/2018 09:41:59 Reading Location: [facility] B1 [id number] Ortho Consult ReadingRoom Electronically signed by: VIKAS GUILLEN M.D. on 2017 09:41 AMPOCT-GLUCOSE [id number] 07:59:00 Test Item Value Reference Range Comments POC-GLUCOSE METER (BEAKER) 87 mg/dL 70-110 TESTED AT [address] (test cubw=7566) [facility] [address] CALCIUM, [id number] 06:53:00 Test Item Value Reference Range Comments CALCIUM IONIZED (BEAKER) (test kuvq=574) 1.12 mmol/L 1.12-1.27 PH, BLOOD (BEAKER) (test smfo=9526) 7.44 [id number] 06:38:00 Test Item Value Reference Range Comments PHOSPHORUS (BEAKER) (test ftlt=717) 2.7 mg/dL 2.3-4.7 [id number] 06:38:00 Test Item Value Reference Range Comments MAGNESIUM (BEAKER) (test vynf=934) 1.6 mg/dL 1.6-2.6 HEPATIC FUNCTION [id number] 06:38:00 Test Item Value Reference Range Comments TOTAL PROTEIN (BEAKER) (test opnx=200) 6.8 gm/dL 6.0-8.3 ALBUMIN (BEAKER) (test ovgq=3533) 3.4 g/dL 3.5-5.0 BILIRUBIN TOTAL (BEAKER) (test lwtp=297) 0.5 mg/dL 0.2-1.2 BILIRUBIN DIRECT (BEAKER) (test kfxn=512) 0.2 mg/dL 0.1-0.5 ALKALINE PHOSPHATASE (BEAKER) (test vzkb=784) 118 U/L 40-150 AST (SGOT) (BEAKER) (test rlyk=358) 22 U/L 5-34 ALT (SGPT) (BEAKER) (test tovw=392) 9 U/L 6-55 COMPREHENSIVE METABOLIC [id number] 06:38:00 Test Item Value Reference Range Comments TOTAL PROTEIN (BEAKER) 6.8 gm/dL 6.0-8.3 (test mpxl=690) ALBUMIN (BEAKER) (test 3.4 g/dL 3.5-5.0 gbpq=3754) ALKALINE PHOSPHATASE 118 U/L 40-150 (BEAKER) (test iutm=119) BILIRUBIN TOTAL (BEAKER) 0.5 mg/dL 0.2-1.2 (test onjl=433) SODIUM (BEAKER) (test 138 meq/L 136-145 gzeo=817) POTASSIUM (BEAKER) (test 3.3 meq/L 3.5-5.1 fpki=775) CHLORIDE (BEAKER) (test 111 meq/L 98-107 hazf=688) CO2 (BEAKER) (test 18 meq/L 22-29 layi=671) BLOOD UREA NITROGEN 29 mg/dL 7-21 (BEAKER) (test dwuq=106) CREATININE (BEAKER) (test 1.79 mg/dL 0.57-1.25 bnfq=813) GLUCOSE RANDOM (BEAKER) 86 mg/dL 70-105 (test swpb=740) CALCIUM (BEAKER) (test 8.6 mg/dL 8.4-10.2 rjtw=466) AST (SGOT) (BEAKER) (test 22 U/L 5-34 ytri=103) ALT (SGPT) (BEAKER) (test 9 U/L 6-55 ehjy=908) EGFR (BEAKER) (test 37 mL/min/1.73 sq m ESTIMATED GFR IS NOT jzai=1584) ACCURATE CREATININE CLEARANCE IN PREDICTING GLOMERULAR FILTRATION RATE. ESTIMATED GFR IS NOT APPLICABLE FOR DIALYSIS PATIENTS. CBC W/PLT COUNT & AUTO [id number] 06:11:00 Test Item Value Reference Range Comments WHITE BLOOD CELL COUNT (BEAKER) (test xkyh=107) 7.6 K/ L 3.5-10.5 RED BLOOD CELL COUNT (BEAKER) (test hvok=807) 3.60 M/ L 3.93-5.22 HEMOGLOBIN (BEAKER) (test awif=468) 9.4 GM/DL 11.2-15.7 HEMATOCRIT (BEAKER) (test vvfp=820) 30.1 % 34.1-44.9 MEAN CORPUSCULAR VOLUME (BEAKER) (test qcie=868) 83.6 fL 79.4-94.8 MEAN CORPUSCULAR HEMOGLOBIN (BEAKER) (test 26.1 pg 25.6-32.2 jagy=023) MEAN CORPUSCULAR HEMOGLOBIN CONC (BEAKER) (test 31.2 GM/DL 32.2-35.5 wfvi=477) RED CELL DISTRIBUTION WIDTH (BEAKER) (test 14.6 % 11.7-14.4 ayfz=214) PLATELET COUNT (BEAKER) (test iorx=512) 221 K/CU MM 150-450 MEAN PLATELET VOLUME (BEAKER) (test arnl=244) 9.7 fL 9.4-12.3 NUCLEATED RED BLOOD CELLS (BEAKER) (test 0 /100 WBC 0-0 bpsf=375) NEUTROPHILS RELATIVE PERCENT (BEAKER) (test 66 % uimd=723) LYMPHOCYTES RELATIVE PERCENT (BEAKER) (test 18 % iued=706) MONOCYTES RELATIVE PERCENT (BEAKER) (test 12 % rgng=550) EOSINOPHILS RELATIVE PERCENT (BEAKER) (test 3 % gjai=886) BASOPHILS RELATIVE PERCENT (BEAKER) (test 1 % phev=952) NEUTROPHILS ABSOLUTE COUNT (BEAKER) (test 5.00 K/ L 1.56-6.13 lovk=539) LYMPHOCYTES ABSOLUTE COUNT (BEAKER) (test 1.35 K/ L 1.18-3.74 fwin=290) MONOCYTES ABSOLUTE COUNT (BEAKER) (test 0.87 K/ L 0.24-0.36 efrh=895) EOSINOPHILS ABSOLUTE COUNT (BEAKER) (test 0.22 K/ L 0.04-0.36 rwkx=335) BASOPHILS ABSOLUTE COUNT (BEAKER) (test 0.07 K/ L 0.01-0.08 ucwc=910) IMMATURE GRANULOCYTES-RELATIVE PERCENT (BEAKER) 1 % 0-1 (test abrv=5454) POCT-GLUCOSE [id number] 21:38:00 Test Item Value Reference Range Comments POC-GLUCOSE METER (BEAKER) 96 mg/dL 70-110 TESTED AT [address] (test kgyf=2120) [place] [address] POCT-GLUCOSE [id number] 18:19:00 Test Item Value Reference Range Comments POC-GLUCOSE METER (BEAKER) 121 mg/dL 70-110 TESTED AT [address] (test ugjf=2672) [place] [address] T4, [id number] 12:35:00 Test Item Value Reference Range Comments FREE T4 (BEAKER) (test qjmv=888) 1.25 ng/dL 0.70-1.48 POCT-GLUCOSE [id number] 12:27:00 Test Item Value Reference Range Comments POC-GLUCOSE METER (BEAKER) 127 mg/dL 70-110 TESTED AT [address] (test hqkl=5116) [place] [address] TSH/FREE T4 IF [id number] 12:07:00 Test Item Value Reference Range Comments THYROID STIMULATING HORMONE (BEAKER) (test 0.25 uIU/mL 0.35-4.94 slze=613) [id number] 12:07:00 Test Item Value Reference Range Comments THYROID STIMULATING HORMONE (BEAKER) (test 0.25 uIU/mL 0.35-4.94 zqyu=906) LACTIC ACID, VENOUS, WHOLE [id number] 11:35:00 Test Item Value Reference Range Comments LACTATE BLOOD VENOUS (2) 0.6 mmol/L 0.5-2.2 Specimen slightly hemolyzed (BEAKER) (test djxl=9504) VANCOMYCIN LEVEL, [id number] 07:11:00 Test Item Value Reference Range Comments VANCOMYCIN RANDOM (BEAKER) (test qako=931) 17.9 ug/mL Reference Range: No [id number] 07:09:00 Test Item Value Reference Range Comments PHOSPHORUS (BEAKER) (test ldon=526) 3.9 mg/dL 2.3-4.7 [id number] 07:09:00 Test Item Value Reference Range Comments MAGNESIUM (BEAKER) (test kzia=258) 1.7 mg/dL 1.6-2.6 BASIC METABOLIC [id number] 07:09:00 Test Item Value Reference Range Comments SODIUM (BEAKER) (test 143 meq/L 136-145 lnwz=278) POTASSIUM (BEAKER) (test 3.3 meq/L 3.5-5.1 ojhq=871) CHLORIDE (BEAKER) (test 116 meq/L 98-107 nisz=946) CO2 (BEAKER) (test 16 meq/L 22-29 ibpk=080) BLOOD UREA NITROGEN 39 mg/dL 7-21 (BEAKER) (test uchj=707) CREATININE (BEAKER) (test 2.09 mg/dL 0.57-1.25 oyfb=991) GLUCOSE RANDOM (BEAKER) 121 mg/dL 70-105 (test rdxg=355) CALCIUM (BEAKER) (test 8.6 mg/dL 8.4-10.2 aqbe=640) EGFR (BEAKER) (test 31 mL/min/1.73 sq m ESTIMATED GFR IS NOT jmbx=7786) ACCURATE CREATININE CLEARANCE IN PREDICTING GLOMERULAR FILTRATION RATE. ESTIMATED GFR IS NOT APPLICABLE FOR DIALYSIS PATIENTS. HEPATIC FUNCTION [id number] 07:09:00 Test Item Value Reference Range Comments TOTAL PROTEIN (BEAKER) (test uzkn=870) 7.0 gm/dL 6.0-8.3 ALBUMIN (BEAKER) (test svnm=6608) 3.4 g/dL 3.5-5.0 BILIRUBIN TOTAL (BEAKER) (test twsy=596) 0.4 mg/dL 0.2-1.2 BILIRUBIN DIRECT (BEAKER) (test lcta=394) 0.2 mg/dL 0.1-0.5 ALKALINE PHOSPHATASE (BEAKER) (test soqw=017) 131 U/L 40-150 AST (SGOT) (BEAKER) (test qwyi=198) 20 U/L 5-34 ALT (SGPT) (BEAKER) (test xlea=462) 10 U/L 6-55 TROPONIN [id number] 06:54:00 Test Item Value Reference Range Comments TROPONIN I (BEAKER) (test ajoz=433) 0.08 ng/mL 0.00-0.03 LACTIC ACID, VENOUS, WHOLE [id number] 06:45:00 Test Item Value Reference Range Comments LACTATE BLOOD VENOUS (2) 0.8 mmol/L 0.5-2.2 Specimen slightly hemolyzed (BEAKER) (test rbap=5801) CBC W/PLT COUNT & AUTO [id number] 06:00:00 Test Item Value Reference Range Comments WHITE BLOOD CELL COUNT (BEAKER) (test rckh=116) 7.4 K/ L 3.5-10.5 RED BLOOD CELL COUNT (BEAKER) (test adnv=817) 4.02 M/ L 3.93-5.22 HEMOGLOBIN (BEAKER) (test odfd=879) 10.6 GM/DL 11.2-15.7 HEMATOCRIT (BEAKER) (test xqld=817) 33.3 % 34.1-44.9 MEAN CORPUSCULAR VOLUME (BEAKER) (test vqoi=125) 82.8 fL 79.4-94.8 MEAN CORPUSCULAR HEMOGLOBIN (BEAKER) (test 26.4 pg 25.6-32.2 lghe=122) MEAN CORPUSCULAR HEMOGLOBIN CONC (BEAKER) (test 31.8 GM/DL 32.2-35.5 xgdd=368) RED CELL DISTRIBUTION WIDTH (BEAKER) (test 14.6 % 11.7-14.4 jwdc=939) PLATELET COUNT (BEAKER) (test gcki=838) 267 K/CU MM 150-450 MEAN PLATELET VOLUME (BEAKER) (test abix=303) 9.7 fL 9.4-12.3 NUCLEATED RED BLOOD CELLS (BEAKER) (test 0 /100 WBC 0-0 vaob=247) NEUTROPHILS RELATIVE PERCENT (BEAKER) (test 69 % whae=681) LYMPHOCYTES RELATIVE PERCENT (BEAKER) (test 15 % didq=208) MONOCYTES RELATIVE PERCENT (BEAKER) (test 15 % qtmk=850) EOSINOPHILS RELATIVE PERCENT (BEAKER) (test 0 % gtie=991) BASOPHILS RELATIVE PERCENT (BEAKER) (test 0 % vlhb=946) NEUTROPHILS ABSOLUTE COUNT (BEAKER) (test 5.14 K/ L 1.56-6.13 wrqc=983) LYMPHOCYTES ABSOLUTE COUNT (BEAKER) (test 1.12 K/ L 1.18-3.74 zfpb=046) MONOCYTES ABSOLUTE COUNT (BEAKER) (test 1.12 K/ L 0.24-0.36 kicj=051) EOSINOPHILS ABSOLUTE COUNT (BEAKER) (test 0.01 K/ L 0.04-0.36 ktjj=797) BASOPHILS ABSOLUTE COUNT (BEAKER) (test 0.03 K/ L 0.01-0.08 wwcn=603) IMMATURE GRANULOCYTES-RELATIVE PERCENT (BEAKER) 0 % 0-1 (test fxmo=4052) CALCIUM, [id number] 05:58:00 Test Item Value Reference Range Comments CALCIUM IONIZED (BEAKER) (test rdxa=259) 1.12 mmol/L 1.12-1.27 PH, BLOOD (BEAKER) (test qwrn=5482) 7.39 EOSINOPHIL SMEAR, [id number] 20:17:00 Test Item Value Reference Range Comments EOSINOPHIL SMEAR, URINE (BEAKER) (test No EOS seen No EOS seen lkgg=9315) BASIC METABOLIC [id number] 20:01:00 Test Item Value Reference Range Comments SODIUM (BEAKER) (test 144 meq/L 136-145 hvhu=918) POTASSIUM (BEAKER) (test 3.2 meq/L 3.5-5.1 kflk=701) CHLORIDE (BEAKER) (test 114 meq/L 98-107 uvwy=698) CO2 (BEAKER) (test 18 meq/L 22-29 yjee=220) BLOOD UREA NITROGEN 42 mg/dL 7-21 (BEAKER) (test dvze=912) CREATININE (BEAKER) (test 2.14 mg/dL 0.57-1.25 jusi=552) GLUCOSE RANDOM (BEAKER) 141 mg/dL 70-105 (test kqkp=122) CALCIUM (BEAKER) (test 8.9 mg/dL 8.4-10.2 hufx=456) EGFR (BEAKER) (test 30 mL/min/1.73 sq m ESTIMATED GFR IS NOT uktk=2219) ACCURATE CREATININE CLEARANCE IN PREDICTING GLOMERULAR FILTRATION RATE. ESTIMATED GFR IS NOT APPLICABLE FOR DIALYSIS PATIENTS. LACTIC ACID, VENOUS, WHOLE [id number] 19:59:00 Test Item Value Reference Range Comments LACTATE BLOOD VENOUS (2) 0.8 mmol/L 0.5-2.2 Specimen slightly hemolyzed (BEAKER) (test vpyn=4544) CT, BRAIN/STROKE [id number] 19:59:00Stroke Protocol. Phone/Page MD for reporting.Reason for [...] Huerta Verified Date/Time: 2017 19:59:01 Reading Location: [facility] Radiology Reading Room [id number]- 11-30 19:51:00 Test Item Value Reference Range Comments PARTIAL THROMBOPLASTIN TIME (BEAKER) (test 33.1 seconds 22.5-36.0 xiea=994) PROTHROMBIN TIME/[id number] 19:50:00 Test Item Value Reference Range Comments PROTIME (BEAKER) (test irka=260) 15.6 seconds 11.7-14.7 INR (BEAKER) (test opop=524) 1.2 <=5.9 RECOMMENDED COUMADIN/WARFARIN INR THERAPY RANGESSTANDARD DOSE: 2.0 - 3.0 Includes: PROPHYLAXIS forvenous thrombosis, systemic embolization; TREATMENT for venous thrombosis and/or pulmonary embolus.HIGH RISK: Target INR is 2.5-3.5 for patients with mechanical heart valves.HEMOGLOBIN AND [id number] 19 :41:00 Test Item Value Reference Range Comments HEMOGLOBIN (BEAKER) (test izrf=648) 11.3 GM/DL 11.2-15.7 HEMATOCRIT (BEAKER) (test ouja=433) 35.4 % 34.1-44.9 CBC W/PLT COUNT & AUTO [id number] 19:41:00 Test Item Value Reference Range Comments WHITE BLOOD CELL COUNT (BEAKER) (test rwsw=723) 6.8 K/ L 3.5-10.5 RED BLOOD CELL COUNT (BEAKER) (test xpvy=183) 4.36 M/ L 3.93-5.22 HEMOGLOBIN (BEAKER) (test iwfv=706) 11.3 GM/DL 11.2-15.7 HEMATOCRIT (BEAKER) (test ygul=069) 35.4 % 34.1-44.9 MEAN CORPUSCULAR VOLUME (BEAKER) (test pajz=150) 81.2 fL 79.4-94.8 MEAN CORPUSCULAR HEMOGLOBIN (BEAKER) (test 25.9 pg 25.6-32.2 tswk=787) MEAN CORPUSCULAR HEMOGLOBIN CONC (BEAKER) (test 31.9 GM/DL 32.2-35.5 kokc=885) RED CELL DISTRIBUTION WIDTH (BEAKER) (test 14.2 % 11.7-14.4 ihto=162) PLATELET COUNT (BEAKER) (test bhfz=694) 263 K/CU MM 150-450 MEAN PLATELET VOLUME (BEAKER) (test jvrf=238) 9.4 fL 9.4-12.3 NUCLEATED RED BLOOD CELLS (BEAKER) (test 0 /100 WBC 0-0 dvkw=734) NEUTROPHILS RELATIVE PERCENT (BEAKER) (test 78 % lhto=424) LYMPHOCYTES RELATIVE PERCENT (BEAKER) (test 10 % cpjs=775) MONOCYTES RELATIVE PERCENT (BEAKER) (test 11 % sidk=037) EOSINOPHILS RELATIVE PERCENT (BEAKER) (test 0 % diis=507) BASOPHILS RELATIVE PERCENT (BEAKER) (test 0 % vnkg=351) NEUTROPHILS ABSOLUTE COUNT (BEAKER) (test 5.35 K/ L 1.56-6.13 rbab=165) LYMPHOCYTES ABSOLUTE COUNT (BEAKER) (test 0.70 K/ L 1.18-3.74 kxkh=025) MONOCYTES ABSOLUTE COUNT (BEAKER) (test 0.76 K/ L 0.24-0.36 emoa=202) EOSINOPHILS ABSOLUTE COUNT (BEAKER) (test 0.00 K/ L 0.04-0.36 pxlj=640) BASOPHILS ABSOLUTE COUNT (BEAKER) (test 0.01 K/ L 0.01-0.08 bpzi=482) IMMATURE GRANULOCYTES-RELATIVE PERCENT (BEAKER) 0 % 0-1 (test eeky=1973) TROPONIN [id number] 19:26:00 Test Item Value Reference Range Comments TROPONIN I (BEAKER) (test wthz=612) 0.11 ng/mL 0.00-0.03 PROTEIN, RANDOM [id number] 19:19:00 Test Item Value Reference Range Comments PROTEIN, URINE (BEAKER) (test vher=8307) 325 mg/dL 0-14 POCT-GLUCOSE [id number] 19:00:00 Test Item Value Reference Range Comments POC-GLUCOSE METER (BEAKER) 158 mg/dL 70-110 TESTED AT [facility] [address] [place] [address] (test cdez=4119) [facility] [address] CREATININE, RANDOM [id number] 18:52:00 Test Item Value Reference Range Comments CREATININE URINE (BEAKER) (test jzsy=927) 95.8 mg/dL Reference Range: No NormalsSODIUM, RANDOM [id number] 18:52:00 Test Item Value Reference Range Comments SODIUM URINE (BEAKER) (test wvaw=674) 28 meq/L Reference Range: No NormalsURINALYSIS W/ [id number] 18:02:00 Test Item Value Reference Range Comments COLOR (BEAKER) (test qvyq=285) Yellow CLARITY (BEAKER) (test cbrh=222) Clear SPECIFIC GRAVITY UA (BEAKER) (test 1.014 1.001-1.035 eewv=097) PH UA (BEAKER) (test ssdo=895) 5.5 5.0-8.0 PROTEIN UA (BEAKER) (test dcrn=952) 300 mg/dL Negative GLUCOSE UA (BEAKER) (test mtgb=100) Negative Negative KETONES UA (BEAKER) (test tiuo=285) Negative Negative BILIRUBIN UA (BEAKER) (test aejr=550) Negative Negative BLOOD UA (BEAKER) (test kcyy=104) Trace Negative NITRITE UA (BEAKER) (test phzp=097) Negative Negative LEUKOCYTE ESTERASE UA (BEAKER) (test Negative Negative rxvu=242) UROBILINOGEN UA (BEAKER) (test hfpu=918) 0.2 mg/dL 0.2-1.0 RBC UA (BEAKER) (test peqo=012) 21 /HPF WBC UA (BEAKER) (test hdza=024) 1 /HPF MUCUS (BEAKER) (test ozgm=6288) Rare SQUAMOUS EPITHELIAL (BEAKER) (test < /HPF nlbn=576) HYALINE CASTS (BEAKER) (test ioiq=716) 1 /LPF SOURCE(BEAKER) (test fhzk=2866) Urine, Clean Catch POCT-GLUCOSE [id number] 17:21:00 Test Item Value Reference Range Comments POC-GLUCOSE METER (BEAKER) 137 mg/dL 70-110 TESTED AT [facility] [address] [facility] (test kctr=9099) [facility] [address] BASIC METABOLIC [id number] 17:14:00 Test Item Value Reference Range Comments SODIUM (BEAKER) (test 146 meq/L 136-145 aqrg=932) POTASSIUM (BEAKER) (test 3.3 meq/L 3.5-5.1 btrc=222) CHLORIDE (BEAKER) (test 114 meq/L 98-107 vglf=179) CO2 (BEAKER) (test 20 meq/L 22-29 enpq=202) BLOOD UREA NITROGEN 41 mg/dL 7-21 (BEAKER) (test fsrt=164) CREATININE (BEAKER) (test 2.12 mg/dL 0.57-1.25 umfz=812) GLUCOSE RANDOM (BEAKER) 135 mg/dL 70-105 (test prpz=862) CALCIUM (BEAKER) (test 8.9 mg/dL 8.4-10.2 dmbl=328) EGFR (BEAKER) (test 30 mL/min/1.73 sq m ESTIMATED GFR IS NOT xozq=2096) ACCURATE CREATININE CLEARANCE IN PREDICTING GLOMERULAR FILTRATION RATE. ESTIMATED GFR IS NOT APPLICABLE FOR DIALYSIS PATIENTS. Call results [id number] ACID, VENOUS, WHOLE [id number] 14:19:00 Test Item Value Reference Range Comments LACTATE BLOOD VENOUS (2) (BEAKER) (test 1.1 mmol/L 0.5-2.2 wrlg=1338) THROMBIN [id number] 13:02:00 Test Item Value Reference Range Comments THROMBIN TIME (BEAKER) (test ydmo=731) 17.8 secs 13.8-20.0 [id number] 13:01:00 Test Item Value Reference Range Comments PROCALCITONIN (BEAKER) (test bydr=1361) 0.09 ng/mL <0.05 SEPSIS RISK (ng/mL)Low: 0.05-0.50Intermediate: 0.51-2.00High: & gt;=2.011:1 MIXING STUDY, [id number] 12:38:00 Test Item Value Reference Range Comments PROTIME (BEAKER) (test fwix=481) 15.0 seconds 11.7-14.7 PARTIAL THROMBOPLASTIN TIME (BEAKER) (test 36.1 seconds 22.5-36.0 eenp=924) PT 1/1 MIX (BEAKER) (test ccnm=6479) 14.4 SECS 11.7-14.7 PTT 1/1 MIX (BEAKER) (test wnpv=7887) 35.5 SECS 22.5-36.0 TROPONIN [id number] 12:01:00 Test Item Value Reference Range Comments TROPONIN I (BEAKER) (test llmd=387) 0.13 ng/mL 0.00-0.03 HCG, QUANTITATIVE, [id number] 11:58:00 Test Item Value Reference Range Comments GONADOTROPIN, CHORIONIC (HCG) QUANT (BEAKER) (test < mIU/mL 0-10 cthc=995) Non- Females: <10 mIU/mL Females: Gestation Age Reference Range(mIU/mL) 0.2-1 Week 5-50 1-2 Weeks 50-500 2-3 Weeks 100-5,000 3-4Weeks 500-10,000 4 -5 Weeks 1,000-50,000 5-6 Weeks 10,000-100,000 6-8 Weeks 15,000-200,000 2-3 Months 10,000-100,[id number] 11:55:00 Test Item Value Reference Range Comments LIPASE (BEAKER) (test qisy=855) 31 U/L 8-78 [id number] 11:55:00 Test Item Value Reference Range Comments AMYLASE (BEAKER) (test rabq=471) 101 U/L 25-125 COMPREHENSIVE METABOLIC [id number] 11:55:00 Test Item Value Reference Range Comments TOTAL PROTEIN (BEAKER) 8.5 gm/dL 6.0-8.3 (test qxiw=993) ALBUMIN (BEAKER) (test 4.1 g/dL 3.5-5.0 ludl=9294) ALKALINE PHOSPHATASE 170 U/L 40-150 (BEAKER) (test xfeq=300) BILIRUBIN TOTAL (BEAKER) 0.3 mg/dL 0.2-1.2 (test zrbz=633) SODIUM (BEAKER) (test 143 meq/L 136-145 wvhi=104) POTASSIUM (BEAKER) (test 2.9 meq/L 3.5-5.1 bbxa=031) CHLORIDE (BEAKER) (test 111 meq/L 98-107 rmwx=269) CO2 (BEAKER) (test 19 meq/L 22-29 elki=191) BLOOD UREA NITROGEN 41 mg/dL 7-21 (BEAKER) (test wund=466) CREATININE (BEAKER) (test 2.07 mg/dL 0.57-1.25 bzca=690) GLUCOSE RANDOM (BEAKER) 162 mg/dL 70-105 (test vyyy=644) CALCIUM (BEAKER) (test 9.1 mg/dL 8.4-10.2 nwkd=435) AST (SGOT) (BEAKER) (test 21 U/L 5-34 ejra=453) ALT (SGPT) (BEAKER) (test 11 U/L 6-55 evfa=178) EGFR (BEAKER) (test 31 mL/min/1.73 sq m ESTIMATED GFR IS NOT pfpk=5252) ACCURATE CREATININE CLEARANCE IN PREDICTING GLOMERULAR FILTRATION RATE. ESTIMATED GFR IS NOT APPLICABLE FOR DIALYSIS PATIENTS. C-REACTIVE [id number] 11:55:00 Test Item Value Reference Range Comments C-REACTIVE PROTEIN (BEAKER) (test mddw=793) 0.42 mg/dL 0.00-0.50 LACTIC ACID, VENOUS, WHOLE [id number] 11:51:00 Test Item Value Reference Range Comments LACTATE BLOOD VENOUS (2) 1.5 mmol/L 0.5-2.2 Specimen slightly hemolyzed (BEAKER) (test gaqt=4290) [id number] 11:44:00 Test Item Value Reference Range Comments PARTIAL THROMBOPLASTIN TIME (BEAKER) (test 35.4 seconds 22.5-36.0 tzbf=121) CBC W/PLT COUNT & AUTO [id number] 11:30:00 Test Item Value Reference Range Comments WHITE BLOOD CELL COUNT (BEAKER) (test fgxe=645) 9.2 K/ L 3.5-10.5 RED BLOOD CELL COUNT (BEAKER) (test crlx=188) 4.90 M/ L 3.93-5.22 HEMOGLOBIN (BEAKER) (test mymx=754) 12.7 GM/DL 11.2-15.7 HEMATOCRIT (BEAKER) (test kxzr=878) 39.7 % 34.1-44.9 MEAN CORPUSCULAR VOLUME (BEAKER) (test jdyb=037) 81.0 fL 79.4-94.8 MEAN CORPUSCULAR HEMOGLOBIN (BEAKER) (test 25.9 pg 25.6-32.2 mehl=158) MEAN CORPUSCULAR HEMOGLOBIN CONC (BEAKER) (test 32.0 GM/DL 32.2-35.5 zrpe=751) RED CELL DISTRIBUTION WIDTH (BEAKER) (test 14.3 % 11.7-14.4 njma=864) PLATELET COUNT (BEAKER) (test omwy=904) 327 K/CU MM 150-450 MEAN PLATELET VOLUME (BEAKER) (test bpoa=669) 9.0 fL 9.4-12.3 NUCLEATED RED BLOOD CELLS (BEAKER) (test 0 /100 WBC 0-0 ryui=168) NEUTROPHILS RELATIVE PERCENT (BEAKER) (test 88 % qnet=727) LYMPHOCYTES RELATIVE PERCENT (BEAKER) (test 5 % ebwy=432) MONOCYTES RELATIVE PERCENT (BEAKER) (test 6 % kjlv=258) EOSINOPHILS RELATIVE PERCENT (BEAKER) (test 0 % ckql=967) BASOPHILS RELATIVE PERCENT (BEAKER) (test 0 % vbtp=715) NEUTROPHILS ABSOLUTE COUNT (BEAKER) (test 8.16 K/ L 1.56-6.13 jmpa=122) LYMPHOCYTES ABSOLUTE COUNT (BEAKER) (test 0.50 K/ L 1.18-3.74 horb=141) MONOCYTES ABSOLUTE COUNT (BEAKER) (test 0.53 K/ L 0.24-0.36 nqil=509) EOSINOPHILS ABSOLUTE COUNT (BEAKER) (test 0.00 K/ L 0.04-0.36 bupz=328) BASOPHILS ABSOLUTE COUNT (BEAKER) (test 0.01 K/ L 0.01-0.08 jjcv=265) IMMATURE GRANULOCYTES-RELATIVE PERCENT (BEAKER) 0 % 0-1 (test tqnw=7543) POCT-GLUCOSE [id number] 11:20:00 Test Item Value Reference Range Comments POC-GLUCOSE METER (BEAKER) 167 mg/dL 70-110 TESTED AT [facility] [address] [facility] (test sfns=6923) [facility] [address] HEMOGLOBIN [id number] 11:15:00 Test Item Value Reference Range Comments HEMOGLOBIN A1C (BEAKER) (test mwcz=283) 5.6 % 4.3-6.1 PROTHROMBIN [id number] 08:24:00 Test Item Value Reference Range Comments PROTIME (BEAKER) (test dpnk=945) 15.3 seconds 11.7-14.7 INR (BEAKER) (test temu=790) 1.2 <=5.9 RECOMMENDED COUMADIN/WARFARIN INR THERAPY RANGESSTANDARD DOSE: 2.0 - 3.0 Includes: PROPHYLAXIS forvenous thrombosis, systemic embolization; TREATMENT for venous thrombosis and/or pulmonary embolus.HIGH RISK: Target INR is 2.5-3.5 for patients with mechanical heart valves.RAD, ABDOMEN/KUB, 1 VIEW [id number] 08:13:00Reason for exam:->abdominal painFINAL REPORT INDICATION:Abdominal pain. [...] Olivier Verified Date/Time: 07/28 08:13:33 Reading Location: [facility] C013X Ortho Consult Reading Room TROPONIN [id number] 08:11:00 Test Item Value Reference Range Comments TROPONIN I (BEAKER) (test urou=701) 0.05 ng/mL 0.00-0.03 RAD, CHEST, 1 VIEW, NON [id number] 08:10:00Reason for exam:->chest painShould this be performed at the bedside?->YesFINAL REPORT RAD, CHEST, 1 VIEW, NON DEPT INDICATION: chest pain COMPARISON: Prior day's exam FINDINGS: Portable frontal view of the chest. IMPRESSION: Support Lines: None. Lungs and pleura: Clear lungs. No effusion. No pneumothorax.Heart and mediastinum: Unremarkable contours.Additional findings: None. Signed: JR Maya Robert MDReport Verified Date/Time: 07/28/2018 08:10:51 Reading Location: [facility] Radiology Reading Room BASIC METABOLIC [id number] 08:08:00 Test Item Value Reference Range Comments SODIUM (BEAKER) (test 146 meq/L 136-145 cygj=796) POTASSIUM (BEAKER) (test 3.4 meq/L 3.5-5.1 Specimen slightly hxcn=259) hemolyzed CHLORIDE (BEAKER) (test 112 meq/L 98-107 aqyo=969) CO2 (BEAKER) (test 16 meq/L 22-29 name=588) BLOOD UREA NITROGEN 43 mg/dL 7-21 (BEAKER) (test mvjj=316) CREATININE (BEAKER) (test 2.26 mg/dL 0.57-1.25 Specimen slightly memg=214) hemolyzed GLUCOSE RANDOM (BEAKER) 165 mg/dL 70-105 (test zhsz=749) CALCIUM (BEAKER) (test 9.4 mg/dL 8.4-10.2 upfz=471) EGFR (BEAKER) (test 28 mL/min/1.73 sq m ESTIMATED GFR IS NOT igtq=0850) ACCURATE CREATININE CLEARANCE IN PREDICTING GLOMERULAR FILTRATION RATE. ESTIMATED GFR IS NOT APPLICABLE FOR DIALYSIS PATIENTS. [id number] 08:04:00 Test Item Value Reference Range Comments LIPASE (BEAKER) (test hwja=272) 12 U/L 8-78 HEPATIC FUNCTION [id number] 08:04:00 Test Item Value Reference Range Comments TOTAL PROTEIN (BEAKER) (test 9.1 gm/dL 6.0-8.3 Specimen slightly hemolyzed zsys=535) ALBUMIN (BEAKER) (test 4.4 g/dL 3.5-5.0 Specimen slightly hemolyzed kqrg=8677) BILIRUBIN TOTAL (BEAKER) (test 0.3 mg/dL 0.2-1.2 Specimen slightly hemolyzed xhlg=360) BILIRUBIN DIRECT (BEAKER) (test 0.1 mg/dL 0.1-0.5 Specimen slightly hemolyzed yssr=982) ALKALINE PHOSPHATASE (BEAKER) 177 U/L 40-150 (test dukt=304) AST (SGOT) (BEAKER) (test 25 U/L 5-34 Specimen slightly hemolyzed jzlk=218) ALT (SGPT) (BEAKER) (test 12 U/L 6-55 Specimen slightly hemolyzed houw=534) COMPLEMENT COMPONENT [id number] 08:03:00 Test Item Value Reference Range Comments C4 COMPLEMENT (BEAKER) (test cken=536) 25 mg/dL 15-57 COMPLEMENT COMPONENT [id number] 08:03:00 Test Item Value Reference Range Comments C3 COMPLEMENT (BEAKER) (test xmzo=975) 125 mg/dL 82-193 POCT-BLOOD GASES, [id number] 07:57:00 Test Item Value Reference Range Comments TEMP, CELSIUS-POC (BEAKER) 37.0 (test izca=5002) FIO2-POC (BEAKER) (test [address] o[address]) [place] [address] PH, ARTERIAL-POC (BEAKER) 7.416 7.350-7.450 (test sjyk=7451) PCO2, ARTERIAL-POC (BEAKER) 29.8 mm Hg 35.0-45.0 (test pvlj=5315) PO2, ARTERIAL-POC (BEAKER) 123.0 mm Hg 80.0-90.0 (test yqwf=1460) SO2, ARTERIAL-POC (BEAKER) 99.0 % 96.0-97.0 (test clao=3077) HCO3, ARTERIAL-POC (BEAKER) 19.2 meq/L 21.0-29.0 (test cxhu=2415) BASE EXCESS, ARTERIAL-POC -5.0 meq/L -2.0-3.0 (BEAKER) (test ubeg=1682) [id number] 07:57:00 Test Item Value Reference Range Comments POC-SODIUM (BEAKER) (test 146 meq/L 135-148 TESTED AT [address] hxin=6869) [place] [address] [id number] 07:57:00 Test Item Value Reference Range Comments POC-POTASSIUM (BEAKER) (test 2.7 meq/L 3.6-5.5 TESTED AT [address] otpg=7441) [place] [address] [id number] 07:57:00 Test Item Value Reference Range Comments POC-GLUCOSE (BEAKER) (test 176 mg/dL 70-110 TESTED AT [address] fkqi=8720) [place] [address] POCT-CALCIUM [id number] 07:57:00 Test Item Value Reference Range Comments POC-CALCIUM IONIZED (BEAKER) 1.15 mmol/L 1.12-1.27 TESTED AT [address] (test ngzc=6470) [place] [address] [id number] 07:57:00 Test Item Value Reference Range Comments POC-HEMATOCRIT (BEAKER) (test 38 % 36-45 TESTED AT [address] kyje=2983) [place] [address] [id number] 07:57:00 Test Item Value Reference Range Comments POC-HEMOGLOBIN (BEAKER) 12.9 g/dL 12.0-15.0 TESTED AT [address] (test tipe=3497) [place] [id number] AT [address] [address] POCT-LACTIC ACID, [id number] 07:57:00 Test Item Value Reference Range Comments POC-LACTIC ACID, VENOUS 3.3 mmol/L 0.9-1.7 TESTED AT [address] (BEAKER) (test pxip=6282) [place] [id number] CBC W/PLT COUNT & AUTO [id number] 07:47:00 Test Item Value Reference Range Comments WHITE BLOOD CELL COUNT (BEAKER) (test kica=678) 9.6 K/ L 3.5-10.5 RED BLOOD CELL COUNT (BEAKER) (test ztyu=066) 4.78 M/ L 3.93-5.22 HEMOGLOBIN (BEAKER) (test gruo=668) 12.2 GM/DL 11.2-15.7 HEMATOCRIT (BEAKER) (test squd=141) 39.2 % 34.1-44.9 MEAN CORPUSCULAR VOLUME (BEAKER) (test hnee=452) 82.0 fL 79.4-94.8 MEAN CORPUSCULAR HEMOGLOBIN (BEAKER) (test 25.5 pg 25.6-32.2 zfgq=666) MEAN CORPUSCULAR HEMOGLOBIN CONC (BEAKER) (test 31.1 GM/DL 32.2-35.5 qslh=568) RED CELL DISTRIBUTION WIDTH (BEAKER) (test 14.2 % 11.7-14.4 qupd=898) PLATELET COUNT (BEAKER) (test xpij=889) 301 K/CU MM 150-450 MEAN PLATELET VOLUME (BEAKER) (test ohop=914) 8.8 fL 9.4-12.3 NUCLEATED RED BLOOD CELLS (BEAKER) (test 0 /100 WBC 0-0 syoz=475) NEUTROPHILS RELATIVE PERCENT (BEAKER) (test 89 % svdy=026) LYMPHOCYTES RELATIVE PERCENT (BEAKER) (test 5 % rpnd=858) MONOCYTES RELATIVE PERCENT (BEAKER) (test 5 % ighd=561) EOSINOPHILS RELATIVE PERCENT (BEAKER) (test 0 % jfdo=490) BASOPHILS RELATIVE PERCENT (BEAKER) (test 0 % spda=412) NEUTROPHILS ABSOLUTE COUNT (BEAKER) (test 8.56 K/ L 1.56-6.13 hinf=979) LYMPHOCYTES ABSOLUTE COUNT (BEAKER) (test 0.52 K/ L 1.18-3.74 owmu=199) MONOCYTES ABSOLUTE COUNT (BEAKER) (test 0.46 K/ L 0.24-0.36 piyy=507) EOSINOPHILS ABSOLUTE COUNT (BEAKER) (test 0.00 K/ L 0.04-0.36 pmoq=806) BASOPHILS ABSOLUTE COUNT (BEAKER) (test 0.02 K/ L 0.01-0.08 pjmg=620) IMMATURE GRANULOCYTES-RELATIVE PERCENT (BEAKER) 0 % 0-1 (test tbsp=0544)
[2019-09-08] MEDS ORDERED: FENTANYL CITR 100 MCG/2 ML ONE (19:18)
[2019-09-08] MEDS ORDERED: ONDANSETRON 4 MG/2 ML VIAL ONE ×2 (19:18→19:53)
[2019-09-08 19:34] LABS: Absolute Lymphocytes (CBC) 1.4 K/uL (0.7-4.9); Basophils % 0.5 % (0-1.3); Hematocrit 27.2 % (36.0-45.0); Lymphocytes % 17.7 % (15.3-44.8); MPV 6.8 fL (7.6-11.3); RBC Red Blood Cell Count 3.24 M/uL (3.86-4.86)
[2019-09-08] MEDS ORDERED: HYDROMORPHONE HCL 1 MG/ML INJ ONE ×3 (19:53→23:01)
[2019-09-08] MEDS ORDERED: METRONIDAZOLE 500mg IVPB 500 MG/100 ML BAG IV ONE (19:53)
[2019-09-08] MEDS ORDERED: CIPROFLOXACIN 400mg IV 400 MG/200 ML BAG IV ONE (19:53)
[2019-09-08] MEDS ORDERED: NA CHLORIDE 0.9% 1,000 ML ONE (19:53)
[2019-09-08] MEDS ORDERED: FAMOTIDINE 20 MG/2 ML VIAL IV ONE (19:53)
[2019-09-08 20:07] LABS: Albumin 2.4 g/dL (3.4-5.0); Bilirubin Direct 0.1 mg/dL (0-0.2); Bilirubin Total 0.3 mg/dL (0.2-1.0); Protein, Total 6.9 g/dL (6.4-8.2)
[2019-09-08 20:08] LABS: Potassium 3.3 mmol/L (3.5-5.1)
[2019-09-08 20:27] LABS: Protime INR 1.24
[2019-09-08 20:40] LABS: Magnesium 1.7 mg/dL (1.8-2.4); Troponin (Emerg Dept Use Only) 0.04 ng/mL (0.0-0.045)
[2019-09-08] MEDS ORDERED: PROMETHAZINE INJ 25 MG/ML AMP ONE (20:44)
--- NOTE | 2019-09-08 20:48 | RAD REPORT ---
EXAM DESCRIPTION: RAD - Chest Single View - 09/08/2019 8:04 pm CLINICAL HISTORY: Lower chest pain, upper abdominal pain COMPARISON: March 2018 TECHNIQUE: AP portable chest image was obtained 1951 hours . FINDINGS: No focal mass or consolidation. Heart size is slightly enlarged but not different from com parison. Vasculature is slightly less prominent on the current study. Interstitial markings are mildl y prominent. Trachea is midline. Right subclavian central venous access catheter in place. No measura ble pleural effusion and no pneumothorax. No acute bony abnormality seen. No acute aortic findings bernal spected. IMPRESSION: No focal mass or consolidation. Suspected minimal interstitial edema or infiltrate pattern.
[2019-09-08] MEDS ORDERED: HYDRALAZINE HCL 20 MG/ML VIAL ONE ×2 (21:10→22:21)
[2019-09-08] MEDS ORDERED: NS KCL 20MEQ 1,000 ML IV ONE (22:05)
[2019-09-08] MEDS ORDERED: MAGNESIUM SULFATE 1 gm IVPB 1 GM/100 ML BAG IV ONE (22:06)
[2019-09-08] MEDS ORDERED: LABETALOL 20 MG/4ML SYRINGE IV ONE ×2 (22:21→23:02)
[2019-09-08 22:31] LABS: Urine Blood TRACE (NEG); Urine Glucose NEGATIVE (NEG); Urine Protein 3+ (NEG); Urine Specific Gravity 1.025 (1.005-1.030); Urine pH 5.5 (5.0-7.0)
--- NOTE | 2019-09-08 23:32 | ER ---
Nurse's Notes [facility] Juan Manuel Name: Babs Younger Age: 49 yrs Sex: Female : 1970 Arrival Date: 09/08/2019 Time: 19:07 Bed 15 Private MD: Diagnosis: Abdominal tenderness-right ided colitis;Ventral hernia;Vomiting;Type 1 diabetes mellitus;Anemia, unspecified;Essential (primary) hypertension;Cardiomegaly;Pleural effusion in conditions classified elsewhere Presentation: 09/08 19:07 Presenting complaint: EMS states: she is having n/v, abdl pain today morning. she was mg2 dc from [facility] last week for reversal of her colostomy. Transition of care: patient was not received from another setting of care. Onset of symptoms was September 08, 2019. Risk Assessment: Do you want to hurt yourself or someone else? Patient reports no desire to harm self or others. Initial Sepsis Screen: Does the patient meet any 2 criteria? No. Patient's initial sepsis screen is negative. Does the patient have a suspected source of infection? No. Patient's initial sepsis screen is negative. Care prior to arrival: Medication(s) given: Nitroglycerin, 0.4 mg SL x 1. 19:07 Method Of Arrival: EMS: [facility] mg2 19:07 Acuity: ELVA 2 mg2 COMMUNITY ADMINISTRATOR: 09/09 00:12 lmp unknown mg2 Historical: - Allergies: 09/08 19:25 Morphine; mg2 - PMHx: 19:25 bowel obstruction; Diabetes - IDDM; Hypertension; Lupus; Renal Disease; mg2 - PSHx: 19:25 colostomy reversal; mg2 - Immunization history:: Flu vaccine status is unknown. - Social history:: Smoking status: unknown. - Ebola Screening: : No symptoms or risks identified at this time. - Family history:: not pertinent. Screenin:57 Abuse screen: Denies threats or abuse. Denies injuries from another. Nutritional mg2 screening: No deficits noted. Tuberculosis screening: No symptoms or risk factors identified. Fall Risk IV access (20 points). Assessment: 21:40 General: Appears uncomfortable, Behavior is cooperative, crying. mg2 21:40 Pain: Complains of pain in left lower quadrant and right lower quadrant and left upper mg2 quadrant and right upper quadrant Pain does not radiate. Pain currently is 10 out of 10 on a pain scale. Quality of pain is described as aching, Pain began gradually, thismorning Is intermittent. Neuro: Level of Consciousness is awake, alert, obeys commands, Oriented to person, place, time, situation. Cardiovascular: Capillary refill < 3 seconds Patient's skin is warm and dry. Respiratory: Airway is patent Respiratory effort is even, unlabored, Respiratory pattern is regular, symmetrical. GI: Reports lower abdominal pain, upper abdominal pain, diarrhea, nausea, vomiting, since morning. : No signs and/or symptoms were reported regarding the genitourinary system. EENT: No signs and/or symptoms were reported regarding the EENT system. Derm: Skin is intact, is healthy with good turgor, Skin is pink, warm \T\ dry. normal. 21:40 Musculoskeletal: Circulation, motion, and sensation intact. Capillary refill < 3 mg2 seconds. 22:40 Reassessment: Patient appears in no apparent distress at this time. Patient and/or mg2 family updated on plan of care and expected duration. Pain level reassessed. Patient is alert, oriented x 3, equal unlabored respirations, skin warm/dry/pink. 23:40 Reassessment: Patient appears in no apparent distress at this time. Patient and/or mg2 family updated on plan of care and expected duration. Pain level reassessed. Patient is alert, oriented x 3, equal unlabored respirations, skin warm/dry/pink. 09/09 01:00 Reassessment: Patient appears in no apparent distress at this time. Patient and/or wh family updated on plan of care and expected duration. Pain level reassessed. Patient is alert, oriented x 3, equal unlabored respirations, skin warm/dry/pink. 02:00 Reassessment: Patient appears in no apparent distress at this time. No changes from previously documented assessment. Patient and/or family updated on plan of care and expected duration. Pain level reassessed. Patient is alert, oriented x 3, equal unlabored respirations, skin warm/dry/pink. Report given to Patrick Fernandez RN Patient states feeling better. Patient states symptoms have improved. 03:10 Reassessment: Patient appears in no apparent distress at this time. No changes from previously documented assessment. Patient and/or family updated on plan of care and expected duration. Pain level reassessed. Patient is alert, oriented x 3, equal unlabored respirations, skin warm/dry/pink. Report Given to [facility] Patient denies pain at this time. Patient states feeling better. Patient states symptoms have improved. Vital Signs: 09/08 19:09 BP 261 / 124; Pulse 85; Resp 18; Temp 98.5; Pulse Ox 100% on R/A; Weight 66.68 kg; mg2 Height 5 ft. 2 in. (157.48 cm); Pain 10/10; 20:50 BP 258 / 130; Pulse 102; Resp 18; Pulse Ox 100% on R/A; mg2 22:12 BP 231 / 112; Pulse 107; Resp 18; Pulse Ox 100% on R/A; Pain 10/10; mg2 23:48 BP 221 / 105; Pulse 90; Resp 18; Pulse Ox 100% on R/A; Pain 6/10; mg2 01 00:06 BP 205 / 109; Pulse 95; Resp 18; Pulse Ox 100% on R/A; mg2 01:00 BP 174 / 106; Pulse 122; Resp 20; Pulse Ox 100% ; wh 02:00 BP 185 / 110; Pulse 126; Resp 18; Pulse Ox 100% on R/A; wh 03:00 BP 182 / 102; Pulse 120; Resp 17; Pulse Ox 100% ; wh 09/08 19:09 Body Mass Index 26.89 (66.68 kg, 157.48 cm) mg2 ED Course: 09/08 19:07 Patient arrived in ED. mg2 19:09 Triage completed. mg2 19:09 EKG done, by ED staff, reviewed by Christiano Elizondo MD. mh5 19:10 Patient has correct armband on for positive identification. Bed in low position. Call 5 light in reach. Side rails up X2. Warm blanket given. nuclear monitoring technician on. Pulse ox on. NIBP on. 19:20 Mando Brewer, LUIS is Primary Nurse. mg2 19:20 Christiano Elizondo MD is Attending Physician. logan 20:00 Oral contrast given. bq 20:04 XRAY Chest (1 view) In Process Unspecified. EDMS 21:44 Abdomen In Process Unspecified. EDMS 21:57 No provider procedures requiring assistance completed. Accessed Arnold cath. using mg2 Clean \T\ dry. Dressing intact. 22:12 Crenshaw cath inserted, using sterile technique, 16 Fr., returned clear yellow urine. mg2 Patient tolerated. 09/09 00:11 Arm band placed on. mg2 03:25 Patient transferred, IV remains in place. Administered Medications: Discontinued: NS 0.9% 1000 ml IV at 125 ml/hr continuous 09/08 19:21 Drug: Zofran 4 mg Route: IVP; Site: right subclavian; mg2 23:13 Follow up: Response: No adverse reaction mg2 19:22 Drug: fentaNYL (PF) 50 mcg Route: IVP; Site: right subclavian; mg2 23:13 Follow up: Response: No adverse reaction; Marked relief of symptoms mg2 20:06 Drug: Flagyl 500 mg Volume: 100 ml; Route: IVPB; Rate: 200 ml/hr; Infused Over: 30 mg2 mins; Site: right subclavian; 09/09 00:48 Follow up: Response: No adverse reaction; IV Status: Completed infusion 09/08 20:07 Drug: Dilaudid 1 mg Route: IVP; Site: right subclavian; mg2 23:11 Follow up: Response: No adverse reaction mg2 20:07 Drug: Zofran 4 mg Route: IVP; Site: right subclavian; mg2 22:56 Follow up: Response: No adverse reaction mg2 20:08 Drug: NS 0.9% 1000 ml Route: IV; Rate: 125 ml/hr; Site: right subclavian; mg2 20:08 Drug: Pepcid 20 mg Route: IVP; Site: right subclavian; mg2 23:11 Follow up: Response: No adverse reaction mg2 20:13 Drug: Cipro 400 mg Volume: 200 ml; Route: IVPB; Infused Over: 60 mins; Site: right mg2 subclavian; 09/09 00:48 Follow up: Response: No adverse reaction; IV Status: Completed infusion 09/08 20:50 Drug: Phenergan 12.5 mg Route: IVP; Site: right subclavian; mg2 22:55 Follow up: Response: No adverse reaction mg2 21:10 Drug: hydrALAZINE 10 mg Route: IV; Rate: per protocol; Site: right subclavian; mg2 22:55 Follow up: Response: No adverse reaction; IV Status: Completed infusion mg2 21:45 Drug: hydrALAZINE 20 mg Route: IV; Rate: per protocol; Site: right subclavian; mg2 22:52 Follow up: Response: No adverse reaction; IV Status: Completed infusion mg2 22:11 Drug: Magnesium Sulfate 1 grams Route: IVPB; Infused Over: 1 hrs; Site: right mg2 subclavian; 23:12 Follow up: Response: No adverse reaction; IV Status: Completed infusion; IV Intake: mg2 100ml 22:11 Drug: NS 0.9% with KCl 20 mEq/L 1000 ml Route: IV; Rate: 100 ml/hr; Site: right mg2 subclavian; 09/09 03:14 Follow up: Response: No adverse reaction; IV Status: Infusion continued upon transfer 09/08 22:24 Drug: hydrALAZINE 20 mg Route: IV; Rate: per protocol; Site: right subclavian; mg2 22:49 Follow up: Response: No adverse reaction; IV Status: Completed infusion mg2 22:25 Drug: Trandate 20 mg Route: IVP; Site: right subclavian; mg2 22:51 Follow up: Response: No adverse reaction; Blood pressure is unchanged mg2 23:04 Drug: Trandate 20 mg Route: IVP; Site: right subclavian; mg2 23:47 Follow up: Response: No adverse reaction mg2 23:10 Drug: Dilaudid 0.5 mg Route: IVP; Site: right subclavian; mg2 23:47 Follow up: Response: No adverse reaction; Marked relief of symptoms; Pain is decreased [facility] 09/09 00:06 Drug: Dilaudid 0.5 mg Route: IVP; Site: right subclavian; mg2 00:47 Follow up: Response: No adverse reaction; Pain is decreased; RASS: Alert and Calm (0) 00:06 Drug: niCARdipine (25mg/250ml) 5 mg/hr Route: IV; Rate: per protocol; Site: right mg2 subclavian; 03:14 Follow up: Response: No adverse reaction; IV Status: Infusion continued upon transfer 01:12 Drug: Dilaudid 0.5 mg Route: IVP; Site: Other; 02:53 Follow up: Response: No adverse reaction; Pain is decreased 01:14 Drug: Phenergan 12.5 mg Route: IVP; Site: Other; 02:53 Follow up: Response: No adverse reaction; Nausea is decreased 02:54 Drug: Dilaudid 0.5 mg Route: IVP; Site: Other; 03:15 Follow up: Response: No adverse reaction; Pain is decreased; RASS: Alert and Calm (0) Intake: 09/08 23:12 IV: 100ml; Total: 100ml. mg2 Output: 22:13 Urine: 300ml (Crenshaw); Total: 300ml. mg2 Outcome: 23:32 ER care complete, transfer ordered by . logan 09/09 03:24 Transferred by ground EMS to [facility], Transfer form completed. X-rays sent w/ patient. Note: Report Given to Patrick Colunga RN and [facility] Condition: stable Instructed on the need for transfer. 04:03 Patient left the ED. Signatures: Dispatcher [employer] EDMS Christiano Elizondo MD MD cha Quilty, Betty bq Martinez, Maria [facility] Sudha Valladares Mando Brewer RN RN mg2 Corrections: (The following items were deleted from the chart) 00:11 09/08 21:40 General: Appears uncomfortable, Behavior is mg2 mg2 09/09 00:15 09/08 19:07 Care prior to arrival: None. mg2 mg2
--- NOTE | 2019-09-08 23:33 | EDPHYS ---
Physician Documentation [facility] Eulalio Name: Babs Younger Age: 49 yrs Sex: Female : 1970 Arrival Date: 09/08/2019 Time: 19:07 Bed 15 Private MD: ED Physician Christiano Elizondo HPI: 09/08 19:42 This 49 yrs old Black Female presents to ER via EMS with complaints of abdominal pain. logan 19:42 The patient presents with abdominal pain in the upper abdomen, in the lower abdomen, logan abdominal distention. Onset: The symptoms/episode began/occurred 2 day(s) ago. The patient presents to the emergency department with nausea, abdominal pain, of the right upper quadrant, left upper quadrant, right lower quadrant and left lower quadrant. Onset: The symptoms/episode began/occurred 2 day(s) ago. Possible causes: bowel obstruction. The symptoms are aggravated by nothing. The symptoms are alleviated by food . Associated signs and symptoms: Pertinent positives: abdominal pain, nausea, vomiting. 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 - Social history:: Smoking status: unknown. - Ebola Screening: : No symptoms or risks identified at this time. - Family history:: not pertinent. ROS: 19:42 Constitutional: Negative for fever, chills, and weight loss, Eyes: Negative for injury, logan pain, redness, and discharge, ENT: Negative for injury, pain, and discharge, Neck: Negative for injury, pain, and swelling, Cardiovascular: Negative for chest pain, palpitations, and edema, Respiratory: Negative for shortness of breath, cough, wheezing, and pleuritic chest pain, Back: Negative for injury and pain, : Negative for injury, bleeding, discharge, and swelling, MS/Extremity: Negative for injury and deformity, Skin: Negative for injury, rash, and discoloration, Neuro: Negative for headache, weakness, numbness, tingling, and seizure, Psych: Negative for depression, anxiety, suicide ideation, homicidal ideation, and hallucinations, Allergy/Immunology: Negative for hives, rash, and allergies, Endocrine: Negative for neck swelling, polydipsia, polyuria, polyphagia, and marked weight changes, Hematologic/Lymphatic: Negative for swollen nodes, abnormal bleeding, and unusual bruising. 19:42 Abdomen/GI: Positive for abdominal pain, nausea and vomiting, of the right upper quadrant, left upper quadrant, right lower quadrant and left lower quadrant. Exam: 19:42 Constitutional: This is a well developed, well nourished patient who is awake, alert, logan and in no acute distress. Head/Face: Normocephalic, atraumatic. Eyes: Pupils equal round and reactive to light, extra-ocular motions intact. Lids and lashes normal. Conjunctiva and sclera are non-icteric and not injected. Cornea within normal limits. Periorbital areas with no swelling, redness, or edema. ENT: Nares patent. No nasal discharge, no septal abnormalities noted. Tympanic membranes are normal and external auditory canals are clear. Oropharynx with no redness, swelling, or masses, exudates, or evidence of obstruction, uvula midline. Mucous membranes moist. Neck: Trachea midline, no thyromegaly or masses palpated, and no cervical lymphadenopathy. Supple, full range of motion without nuchal rigidity, or vertebral point tenderness. No Meningismus. Chest/axilla: Normal chest wall appearance and motion. Nontender with no deformity. No lesions are appreciated. Cardiovascular: Regular rate and rhythm with a normal S1 and S2. No gallops, murmurs, or rubs. Normal PMI, no JVD. No pulse deficits. Respiratory: Lungs have equal breath sounds bilaterally, clear to auscultation and percussion. No rales, rhonchi or wheezes noted. No increased work of breathing, no retractions or nasal flaring. Back: No spinal tenderness. No costovertebral tenderness. Full range of motion. Skin: Warm, dry with normal turgor. Normal color with no rashes, no lesions, and no evidence of cellulitis. MS/ Extremity: Pulses equal, no cyanosis. Neurovascular intact. Full, normal range of motion. Neuro: Awake and alert, GCS 15, oriented to person, place, time, and situation. Cranial nerves II-XII grossly intact. Motor strength 5/5 in all extremities. Sensory grossly intact. Cerebellar exam normal. Normal gait. Psych: Awake, alert, with orientation to person, place and time. Behavior, mood, and affect are within normal limits. 19:42 Abdomen/GI: Inspection: abdomen appears normal, Bowel sounds: normal, Palpation: moderate abdominal tenderness, in the right upper quadrant, left upper quadrant, right lower quadrant and left lower quadrant, Liver: no appreciated palpable abnormalities, Hernia: not appreciated. Vital Signs: 19:09 BP 261 / 124; Pulse 85; Resp 18; Temp 98.5; Pulse Ox 100% on R/A; Weight 66.68 kg; mg2 Height 5 ft. 2 in. (157.48 cm); Pain 10/10; 20:50 BP 258 / 130; Pulse 102; Resp 18; Pulse Ox 100% on R/A; mg2 22:12 BP 231 / 112; Pulse 107; Resp 18; Pulse Ox 100% on R/A; Pain 10/10; mg2 23:48 BP 221 / 105; Pulse 90; Resp 18; Pulse Ox 100% on R/A; Pain 6/10; mg2 0112 00:06 BP 205 / 109; Pulse 95; Resp 18; Pulse Ox 100% on R/A; mg2 01:00 BP 174 / 106; Pulse 122; Resp 20; Pulse Ox 100% ; wh 02:00 BP 185 / 110; Pulse 126; Resp 18; Pulse Ox 100% on R/A; wh 03:00 BP 182 / 102; Pulse 120; Resp 17; Pulse Ox 100% ; 09/08 19:09 Body Mass Index 26.89 (66.68 kg, 157.48 cm) mg2 MDM: 09/08 19:20 Patient medically screened. [facility] 19:42 Data reviewed: vital signs, nurses notes, lab test result(s), EKG, radiologic studies, [facility] CT scan, plain films. 09/08 19:21 Order name: Basic Metabolic Panel; Complete Time: 21:06 [facility] 09/08 19:21 Order name: CBC with Diff; Complete Time: 21:06 [facility] 09/08 19:21 Order name: Creatinine for Radiology; Complete Time: 21:06 [facility] 09/08 19:21 Order name: Hepatic Function; Complete Time: 21:06 [facility] 09/08 19:21 Order name: Lipase; Complete Time: 21:06 [facility] 09/08 19:42 Order name: Magnesium; Complete Time: 21:06 [facility] 09/08 19:42 Order name: NT PRO-BNP; Complete Time: 21:06 [facility] 09/08 19:42 Order name: PT-INR; Complete Time: 21:06 [facility] 09/08 19:42 Order name: Troponin (emerg Dept Use Only); Complete Time: 21:06 [facility] 09/08 19:42 Order name: XRAY Chest (1 view); Complete Time: 21:06 [facility] 09/08 21:17 Order name: Abdomen EDMS 09/08 22:24 Order name: Urine Dipstick--Ancillary (enter results); Complete Time: 22:45 [facility] 09/08 22:24 Order name: Urine --Ancillary (enter results); Complete Time: 22:45 [facility] 09/08 19:21 Order name: IV Saline Lock; Complete Time: 19:22 [facility] 09/08 19:21 Order name: Labs collected and sent; Complete Time: 19:22 [facility] 09/08 19:21 Order name: EKG - Nurse/Tech; Complete Time: 19:22 [facility] 09/08 19:42 Order name: EKG; Complete Time: 19:43 [facility] 09/08 19:42 Order name: Cardiac monitoring; Complete Time: 20: [facility] 09/08 19:42 Order name: O2 Per Protocol; Complete Time: 20: [facility] 09/08 19:42 Order name: O2 Sat Monitoring; Complete Time: 20: [facility] 09/08 21:07 Order name: [place]; Complete Time: 21:58 [facility] Administered Medications: Discontinued: NS 0.9% 1000 ml IV at 125 ml/hr continuous 19:21 Drug: Zofran 4 mg Route: IVP; Site: right subclavian; mg2 23:13 Follow up: Response: No adverse reaction mg2 19:22 Drug: fentaNYL (PF) 50 mcg Route: IVP; Site: right subclavian; mg2 23:13 Follow up: Response: No adverse reaction; Marked relief of symptoms mg2 20:06 Drug: Flagyl 500 mg Volume: 100 ml; Route: IVPB; Rate: 200 ml/hr; Infused Over: 30 mg2 mins; Site: right subclavian; 09/09 00:48 Follow up: Response: No adverse reaction; IV Status: Completed infusion 09/08 20:07 Drug: Dilaudid 1 mg Route: IVP; Site: right subclavian; mg2 23:11 Follow up: Response: No adverse reaction mg2 20:07 Drug: Zofran 4 mg Route: IVP; Site: right subclavian; mg2 22:56 Follow up: Response: No adverse reaction mg2 20:08 Drug: NS 0.9% 1000 ml Route: IV; Rate: 125 ml/hr; Site: right subclavian; mg2 20:08 Drug: Pepcid 20 mg Route: IVP; Site: right subclavian; mg2 23:11 Follow up: Response: No adverse reaction mg2 20:13 Drug: Cipro 400 mg Volume: 200 ml; Route: IVPB; Infused Over: 60 mins; Site: right mg2 subclavian; 09/09 00:48 Follow up: Response: No adverse reaction; IV Status: Completed infusion 09/08 20:50 Drug: Phenergan 12.5 mg Route: IVP; Site: right subclavian; mg2 22:55 Follow up: Response: No adverse reaction mg2 21:10 Drug: hydrALAZINE 10 mg Route: IV; Rate: per protocol; Site: right subclavian; mg2 22:55 Follow up: Response: No adverse reaction; IV Status: Completed infusion mg2 21:45 Drug: hydrALAZINE 20 mg Route: IV; Rate: per protocol; Site: right subclavian; mg2 22:52 Follow up: Response: No adverse reaction; IV Status: Completed infusion mg2 22:11 Drug: Magnesium Sulfate 1 grams Route: IVPB; Infused Over: 1 hrs; Site: right mg2 subclavian; 23:12 Follow up: Response: No adverse reaction; IV Status: Completed infusion; IV Intake: mg2 100ml 22:11 Drug: NS 0.9% with KCl 20 mEq/L 1000 ml Route: IV; Rate: 100 ml/hr; Site: right mg2 subclavian; 09/09 03:14 Follow up: Response: No adverse reaction; IV Status: Infusion continued upon transfer 09/08 22:24 Drug: hydrALAZINE 20 mg Route: IV; Rate: per protocol; Site: right subclavian; mg2 22:49 Follow up: Response: No adverse reaction; IV Status: Completed infusion mg2 22:25 Drug: Trandate 20 mg Route: IVP; Site: right subclavian; mg2 22:51 Follow up: Response: No adverse reaction; Blood pressure is unchanged mg2 23:04 Drug: Trandate 20 mg Route: IVP; Site: right subclavian; mg2 23:47 Follow up: Response: No adverse reaction mg2 23:10 Drug: Dilaudid 0.5 mg Route: IVP; Site: right subclavian; mg2 23:47 Follow up: Response: No adverse reaction; Marked relief of symptoms; Pain is decreased [facility] 09/09 00:06 Drug: Dilaudid 0.5 mg Route: IVP; Site: right subclavian; mg2 00:47 Follow up: Response: No adverse reaction; Pain is decreased; RASS: Alert and Calm (0) 00:06 Drug: niCARdipine (25mg/250ml) 5 mg/hr Route: IV; Rate: per protocol; Site: right mg2 subclavian; 03:14 Follow up: Response: No adverse reaction; IV Status: Infusion continued upon transfer 01:12 Drug: Dilaudid 0.5 mg Route: IVP; Site: Other; 02:53 Follow up: Response: No adverse reaction; Pain is decreased 01:14 Drug: Phenergan 12.5 mg Route: IVP; Site: Other; 02:53 Follow up: Response: No adverse reaction; Nausea is decreased 02:54 Drug: Dilaudid 0.5 mg Route: IVP; Site: Other; 03:15 Follow up: Response: No adverse reaction; Pain is decreased; RASS: Alert and Calm (0) Disposition: 09/08/19 23:32 Transfer ordered to [facility]. Diagnosis are Abdominal tenderness - right ided colitis, Ventral hernia, Vomiting, Type 1 diabetes mellitus, Anemia, unspecified, Essential (primary) hypertension, Cardiomegaly, Pleural effusion in conditions classified elsewhere. - Reason for transfer: Higher level of care. - Accepting physician is to [facility], [facility]. - Condition is Fair. - Problem is new. - Symptoms have improved. Signatures: Dispatcher [employer] EDSC Christiano Elizondo MD MD cha Habalo, Winsy Mando Brewer, RN RN mg2 Corrections: (The following items were deleted from the chart) 09/08 21:17 19:43 Abdomen Pelvis W Con+CT.RAD.BRZ ordered. [facility] 23:42 23:32 09/08/2019 23:32 Transfer ordered to [facility]. Diagnosis is logan Abdominal tenderness; Ventral hernia; Vomiting; Type 1 diabetes mellitus; Anemia, unspecified; Essential (primary) hypertension. Reason for transfer: Higher level of care. Accepting physician is to [facility]. Condition is Fair. Problem is new. Symptoms have improved. [facility] 23:51 23:42 09/08/2019 23:32 Transfer ordered to [facility]. Diagnosis is logan Abdominal tenderness - right ided colitis; Ventral hernia; Vomiting; Type 1 diabetes mellitus; Anemia, unspecified; Essential (primary) hypertension. Reason for transfer: Higher level of care. Accepting physician is to [facility]. Condition is Fair. Problem is new. Symptoms have improved. [facility] :51 23:51 09/08/2019 23:32 Transfer ordered to [facility]. Diagnosis is logan Abdominal tenderness - right ided colitis; Ventral hernia; Vomiting; Type 1 diabetes mellitus; Anemia, unspecified; Essential (primary) hypertension. Reason for transfer: Higher level of care. Accepting physician is to [facility]. Condition is Fair. Problem is new. Symptoms have improved. [facility] 09/09 02:51 09/08 23:51 09/08/2019 23:32 Transfer ordered to [facility]. [facility] Diagnosis is Abdominal tenderness - right ided colitis; Ventral hernia; Vomiting; Type 1 diabetes mellitus; Anemia, unspecified; Essential (primary) hypertension. Reason for transfer: Higher level of care. Accepting physician is to [facility]. Condition is Fair. Problem is new. Symptoms have improved. [facility] 09/09 04:03 02:51 09/08/2019 23:32 Transfer ordered to [facility]. Diagnosis is wh Abdominal tenderness - right ided colitis; Ventral hernia; Vomiting; Type 1 diabetes mellitus; Anemia, unspecified; Essential (primary) hypertension; Cardiomegaly; Pleural effusion in conditions classified elsewhere. Reason for transfer: Higher level of care. Accepting physician is to [facility]. Condition is Fair. Problem is new. Symptoms have improved. [facility]
[2019-09-08] MEDS ORDERED: Nicardipine/NS 25 MG/250 ML KIT IV ONE (23:52)
[2019-09-09] MEDS ORDERED: PROMETHAZINE INJ 25 MG/ML AMP ONE (01:09)
[2019-09-09] MEDS ORDERED: HYDROMORPHONE HCL 1 MG/ML INJ ONE ×2 (01:10→02:53)
[2019-09-09 04:43] VITALS: BP 106/79; TEMP 98.2; O2SAT 97
--- NOTE | 2019-09-10 05:29 | EKG ---
Test Date: 2019-09-08 Test Time: 19:07:03 Box Printer: JESIKA MEASUREMENT RESULTS: Intervals: Rate: 82 MN: 176 QRSD: 80 QT: 442 QTc: 516 [place]: P: 64 MN: 176 QRS: -1 T: 82 INTERPRETIVE STATEMENTS: Sinus rhythm with premature atrial complexes Possible Left atrial enlargement Left ventricular hypertrophy prolonged QT Abnormal ECG Compared to ECG 01/16/2019 18:45:30 Atrial premature complex(es) now present ST (T wave) deviation no longer present Electronically Signed On 09-10-19 05:29:26 QUALITY MANAGEMENT NURSE by Igor Mcneil
--- NOTE | 2019-09-10 11:15 | RAD REPORT ---
EXAM DESCRIPTION: Abdomen Pelvis Wo Contrast CLINICAL HISTORY: 49 years Female ABD PAIN COMPARISON: None TECHNIQUE: Images were obtained in axial, sagittal, and coronal planes. No intravenous contrast was administered. Oral contrast is seen within the stomach. This exam was performed according to our departmental dose-optimization program which includes use of Automated Exposure Control, adjustment of the mA and/or kV according to patient size and/or use of i terative reconstruction technique. FINDINGS: Ostomy site right lower abdomen again seen. 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 The appearance of the surgical clips as change when correlated with the prior study. Air s oft tissue density is seen posterior to the ostomy site. Anastomotic leak not excluded on the basis o f this study. Surgical clips presacral region likely AP resection. Appendix not well identified howev er no secondary signs for appendicitis. Mucosal thickening involving bowel loops right abdomen. Ventral hernia which contains moderately dilated bowel loops. Disruption of the mass is suspected. No abnormality involving the liver, spleen, pancreas, or adrenal glands bilaterally. Mildly distended gallbladder. No obstructing renal calcifications bilaterally. No hydronephrosis bilaterally. Moderately distended bladder. Enlarged heart with pericardial effusion. Airspace attenuation lower lobes bilaterally likely atelect atic change. Small hiatal hernia. No acute osseous abnormality. No dilatation abdominal aorta. IMPRESSION: Ostomy site right lower abdomen with surgical clips changed in appearance when correlate d with the prior study. Anastomotic leak difficult to exclude on noncontrast imaging. Repeat delayed imaging with intravenous and additional oral contrast would be needed to further exclude extravasatio n of contrast and bowel contents. Possible colitis on right. Large midline ventral hernia which contains moderately dilated bowel loops. Disruption of the abdomin al wall mesh is present. Enlarged heart with pericardial effusion. Electronically signed by: Cora Bolaños MD 09/08/2019 10:35 PM DUST COLLECTOR ATTENDANT Due to temporary technical issues with the PACS/Fluency reporting system, reports are being signed by the in house radiologist as a courtesy to ensure prompt reporting. The interpreting radiologist is f ully responsible for the content of the report.
== END 2019-09-09 04:03 | disposition short-term general hospital (02) ==
LOC: ER 18:51
DX: K52.9 Noninfective gastroenteritis and colitis, unspecified (principal); K43.9 Ventral hernia without obstruction or gangrene; R11.10 Vomiting, unspecified; E10.9 Type 1 diabetes mellitus without complications; D64.9 Anemia, unspecified; I10 Essential (primary) hypertension; I51.7 Cardiomegaly; J90 Pleural effusion, not elsewhere classified; Z88.5 Allergy status to narcotic agent
CPT/HCPCS: 96365; 96367; 96368; 93005; 85025; 80048; 36415; 83735; 81025; 85610; 80076; 81003; 84484; 83690; 83880; 74176; 71045; 51702; 96375; 99285; 96366; J0360 ×2; J2550 ×2; J3010; J3475; J1170 ×5; J7030; J2405 ×2; J0744

== ENCOUNTER 2019-09-20 12:14 | Emergency (ER) | payer OTHER ==
--- OUTSIDE RECORDS SUMMARY | 2019-09-20 12:20 | XMS REPORT ---
:1970 [facility] [address] [place] [address] Care Team Providers Name Role Phone ABEL LI Unavailable Unavailable Problems This patient has no known problems. Allergies, Adverse Reactions, Alerts This patient has no known allergies or adverse reactions. Medications This patient has no known medications. Results Test Description Test Time Test Comments Text Results Atomic Results Result Comments BLOOD CULTURE 2018-08-02 17:01:00 Test Item Value Reference Range Comments CULTURE (BEAKER) (test jipg=4166) No growth in 5 days LUPUS ANTICOAGULANT SCREEN WITH REFLEX TO [id number] 16:08:00 Test Item Value Reference Range Comments DRVV SCREEN RATIO (BEAKER) 1.55 <1.20 (test ngpm=3353) DRVV CONFIRM RATIO (test 0.93 hham=4211) DRVV NORMALIZED RATIO (test 1.67 <1.20 gpkq=4736) DRVV INTERPRETATION (BEAKER) Positive screen for Lupus (test biqg=0821) Anticoagulant with hexagonal phospholipid confirmation. Suggest repeat testing in 12 weeks and when patient not receiving anticoagulant therapy. PROTIME (BEAKER) (test 15.0 seconds 11.7-14.7 rpxk=689) INR (BEAKER) (test tlxs=427) 1.2 <=5.9 PARTIAL THROMBOPLASTIN TIME 36.1 seconds 22.5-36.0 (BEAKER) (test isqt=270) PTT-LA (BEAKER) (test 45.2 32.0-41.8 utab=[id number]) [id number] (BEAKER) Cindy Chavira MD (test vzsz=3748) (electronic signature) HEXAGONAL [id number] 14:08:00 Test Item Value Reference Range Comments HEXAGONAL PHOSPHOLIPID (BEAKER) (test oxqc=5065) Positive BLOOD [id number] 10:01:00 Test Item Value Reference Range Comments CULTURE (BEAKER) (test kyvl=3602) No growth in 5 days DOUBLE-STRANDED DNA (DSDNA) [id number] 05:52:00 Test Item Value Reference Range Comments ANTI-DNA DS (BEAKER) (test mrbq=0572) Negative CARDIOLIPIN ANTIBODIES, IGG AND [id number] 15:01:00 Test Item Value Reference Range Comments ANTICARDIOLIPIN IGG ANTIBODY (BEAKER) (test < GPL <20.0 flyk=967) ANTICARDIOLIPIN IGM ANTIBODY (BEAKER) (test 2.1 MPL <20.0 ieov=138) Anticardiolipin IgG Result Interpretation: <20.0 GPL Normal>/=20.0 GPL PositiveAnticardiolipin IgM Result Interpretation: <20.0 MPL Normal>/= 20.0 MPL PositiveCALCIUM, [id number] 05:12:00 Test Item Value Reference Range Comments CALCIUM IONIZED (BEAKER) (test lkju=830) 1.01 mmol/L 1.12-1.27 PH, BLOOD (BEAKER) (test sqzw=6536) 7.45 POCT-GLUCOSE [id number] 21:30:00 Test Item Value Reference Range Comments POC-GLUCOSE METER (BEAKER) 116 mg/dL 70-110 TESTED AT [address] (test bvyg=3736) [place] [address] POCT-GLUCOSE [id number] 17:32:00 Test Item Value Reference Range Comments POC-GLUCOSE METER (BEAKER) 125 mg/dL 70-110 TESTED AT [address] (test dimc=2844) [place] [id number] POCT-GLUCOSE [id number] 11:28:00 Test Item Value Reference Range Comments POC-GLUCOSE METER (BEAKER) 115 mg/dL 70-110 TESTED AT [address] (test drfn=1993) [place] [address] POCT-GLUCOSE [id number] 07:41:00 Test Item Value Reference Range Comments POC-GLUCOSE METER (BEAKER) 108 mg/dL 70-110 TESTED AT [address] (test avgk=5884) [place] [address] [id number] 07:06:00 Test Item Value Reference Range Comments MAGNESIUM (BEAKER) (test 1.8 mg/dL 1.6-2.6 Specimen slightly hemolyzed bode=502) [id number] 07:06:00 Test Item Value Reference Range Comments PHOSPHORUS (BEAKER) (test 2.4 mg/dL 2.3-4.7 Specimen slightly hemolyzed cetl=512) COMPREHENSIVE METABOLIC [id number] 07:06:00 Test Item Value Reference Range Comments TOTAL PROTEIN (BEAKER) 7.5 gm/dL 6.0-8.3 Specimen slightly (test fkgm=119) hemolyzed ALBUMIN (BEAKER) (test 3.7 g/dL 3.5-5.0 Specimen slightly ukib=0410) hemolyzed ALKALINE PHOSPHATASE 118 U/L 40-150 (BEAKER) (test vcal=668) BILIRUBIN TOTAL (BEAKER) 0.6 mg/dL 0.2-1.2 Specimen slightly (test xeal=196) hemolyzed SODIUM (BEAKER) (test 141 meq/L 136-145 xied=152) POTASSIUM (BEAKER) (test 3.3 meq/L 3.5-5.1 Specimen slightly cpzg=253) hemolyzed CHLORIDE (BEAKER) (test 112 meq/L 98-107 wtev=165) CO2 (BEAKER) (test 20 meq/L 22-29 lcpw=471) BLOOD UREA NITROGEN 17 mg/dL 7-21 (BEAKER) (test qtuj=815) CREATININE (BEAKER) (test 1.53 mg/dL 0.57-1.25 Specimen slightly ptnp=725) hemolyzed GLUCOSE RANDOM (BEAKER) 102 mg/dL 70-105 (test zsrm=854) CALCIUM (BEAKER) (test 9.0 mg/dL 8.4-10.2 czyj=069) AST (SGOT) (BEAKER) (test 30 U/L 5-34 Specimen slightly efki=329) hemolyzed ALT (SGPT) (BEAKER) (test 12 U/L 6-55 Specimen slightly insp=268) hemolyzed EGFR (BEAKER) (test 44 mL/min/1.73 sq m ESTIMATED GFR IS NOT wtxl=3872) ACCURATE CREATININE CLEARANCE IN PREDICTING GLOMERULAR FILTRATION RATE. ESTIMATED GFR IS NOT APPLICABLE FOR DIALYSIS PATIENTS. HEPATIC FUNCTION [id number] 07:06:00 Test Item Value Reference Range Comments TOTAL PROTEIN (BEAKER) (test 7.5 gm/dL 6.0-8.3 Specimen slightly hemolyzed lpla=454) ALBUMIN (BEAKER) (test 3.7 g/dL 3.5-5.0 Specimen slightly hemolyzed iihp=2667) BILIRUBIN TOTAL (BEAKER) (test 0.6 mg/dL 0.2-1.2 Specimen slightly hemolyzed cllz=434) BILIRUBIN DIRECT (BEAKER) (test 0.3 mg/dL 0.1-0.5 Specimen slightly hemolyzed gext=051) ALKALINE PHOSPHATASE (BEAKER) 118 U/L 40-150 (test uwzf=290) AST (SGOT) (BEAKER) (test 30 U/L 5-34 Specimen slightly hemolyzed ssbe=446) ALT (SGPT) (BEAKER) (test 12 U/L 6-55 Specimen slightly hemolyzed smbd=892) CALCIUM, [id number] 06:42:00 Test Item Value Reference Range Comments CALCIUM IONIZED (BEAKER) (test cmfl=190) 1.16 mmol/L 1.12-1.27 PH, BLOOD (BEAKER) (test zecv=8279) 7.42 CBC W/PLT COUNT & AUTO [id number] 05:10:00 Test Item Value Reference Range Comments WHITE BLOOD CELL COUNT (BEAKER) (test assd=054) 5.9 K/ L 3.5-10.5 RED BLOOD CELL COUNT (BEAKER) (test wjvg=606) 3.45 M/ L 3.93-5.22 HEMOGLOBIN (BEAKER) (test algd=917) 9.1 GM/DL 11.2-15.7 HEMATOCRIT (BEAKER) (test vzun=225) 28.8 % 34.1-44.9 MEAN CORPUSCULAR VOLUME (BEAKER) (test ldeg=538) 83.5 fL 79.4-94.8 MEAN CORPUSCULAR HEMOGLOBIN (BEAKER) (test 26.4 pg 25.6-32.2 qcbe=641) MEAN CORPUSCULAR HEMOGLOBIN CONC (BEAKER) (test 31.6 GM/DL 32.2-35.5 dkon=027) RED CELL DISTRIBUTION WIDTH (BEAKER) (test 14.4 % 11.7-14.4 fhzu=430) PLATELET COUNT (BEAKER) (test hlzf=532) 220 K/CU MM 150-450 MEAN PLATELET VOLUME (BEAKER) (test hwus=253) 9.7 fL 9.4-12.3 NUCLEATED RED BLOOD CELLS (BEAKER) (test 0 /100 WBC 0-0 uqye=065) NEUTROPHILS RELATIVE PERCENT (BEAKER) (test 53 % ubrs=970) LYMPHOCYTES RELATIVE PERCENT (BEAKER) (test 25 % dnxh=409) MONOCYTES RELATIVE PERCENT (BEAKER) (test 14 % jmru=837) EOSINOPHILS RELATIVE PERCENT (BEAKER) (test 8 % gxsi=224) BASOPHILS RELATIVE PERCENT (BEAKER) (test 1 % fdpu=649) NEUTROPHILS ABSOLUTE COUNT (BEAKER) (test 3.09 K/ L 1.56-6.13 rrls=757) LYMPHOCYTES ABSOLUTE COUNT (BEAKER) (test 1.46 K/ L 1.18-3.74 xokr=030) MONOCYTES ABSOLUTE COUNT (BEAKER) (test 0.79 K/ L 0.24-0.36 itbw=337) EOSINOPHILS ABSOLUTE COUNT (BEAKER) (test 0.46 K/ L 0.04-0.36 hjrv=922) BASOPHILS ABSOLUTE COUNT (BEAKER) (test 0.05 K/ L 0.01-0.08 hgcp=430) IMMATURE GRANULOCYTES-RELATIVE PERCENT (BEAKER) 0 % 0-1 (test aqki=9975) POCT-GLUCOSE [id number] 23:12:00 Test Item Value Reference Range Comments POC-GLUCOSE METER (BEAKER) 95 mg/dL 70-110 TESTED AT [address] (test xmsi=1937) [place] [id number] POCT-GLUCOSE [id number] 18:51:00 Test Item Value Reference Range Comments POC-GLUCOSE METER (BEAKER) 118 mg/dL 70-110 TESTED AT [address] (test euar=1736) [place] [id number] HEMOGLOBIN AND [id number] 16:28:00 Test Item Value Reference Range Comments HEMOGLOBIN (BEAKER) (test zefr=299) 8.7 GM/DL 11.2-15.7 HEMATOCRIT (BEAKER) (test vwdz=160) 27.8 % 34.1-44.9 POCT-GLUCOSE [id number] 15:00:00 Test Item Value Reference Range Comments POC-GLUCOSE METER (BEAKER) 140 mg/dL 70-110 TESTED AT [address] (test fvvz=4762) [facility] [address] POCT-GLUCOSE [id number] 14:46:00 Test Item Value Reference Range Comments POC-GLUCOSE METER (BEAKER) 44 mg/dL 70-110 Notified LUIS WALTER/TESTED AT [facility] (test dfnd=7541) [address] [place] [address] POCT-GLUCOSE [id number] 13:05:00 Test Item Value Reference Range Comments POC-GLUCOSE METER (BEAKER) 87 mg/dL 70-110 TESTED AT [address] (test rxvv=1390) [facility] [address] POCT-GLUCOSE [id number] 11:57:00 Test Item Value Reference Range Comments POC-GLUCOSE METER (BEAKER) 65 mg/dL 70-110 Notified LUIS WALTER/TESTED AT [facility] (test cagi=2727) [address] [place], [place] [id number] VANCOMYCIN LEVEL, [id number] 10:58:00 Test Item Value Reference Range Comments VANCOMYCIN TROUGH (BEAKER) (test rsyc=648) 14.2 ug/mL 10.0-20.0 RAD, ABDOMEN/KUB, 1 VIEW [id number] 09:41:00Reason for exam:->abdominal painFINAL REPORT AP abdomen, two images HISTORY: Abdominal pain COMPARISON: 07/28/2013 IMPRESSION:Grossly nonobstructive bowel gas pattern. Intact skeleton. Signed: Vikas Guillen MDReport Verified Date/ Time: 07/30/2018 09:41:59 Reading Location: [facility] B1 [id number] Ortho Consult ReadingRoom Electronically signed by: VIKAS GUILLEN M.D. on 2017 09:41 AMPOCT-GLUCOSE [id number] 07:59:00 Test Item Value Reference Range Comments POC-GLUCOSE METER (BEAKER) 87 mg/dL 70-110 TESTED AT [address] (test gmvx=9985) [facility] [address] CALCIUM, [id number] 06:53:00 Test Item Value Reference Range Comments CALCIUM IONIZED (BEAKER) (test cedr=580) 1.12 mmol/L 1.12-1.27 PH, BLOOD (BEAKER) (test artt=1835) 7.44 [id number] 06:38:00 Test Item Value Reference Range Comments PHOSPHORUS (BEAKER) (test xqlo=633) 2.7 mg/dL 2.3-4.7 [id number] 06:38:00 Test Item Value Reference Range Comments MAGNESIUM (BEAKER) (test uzcu=732) 1.6 mg/dL 1.6-2.6 HEPATIC FUNCTION [id number] 06:38:00 Test Item Value Reference Range Comments TOTAL PROTEIN (BEAKER) (test ohjo=690) 6.8 gm/dL 6.0-8.3 ALBUMIN (BEAKER) (test cvsn=6141) 3.4 g/dL 3.5-5.0 BILIRUBIN TOTAL (BEAKER) (test ffms=899) 0.5 mg/dL 0.2-1.2 BILIRUBIN DIRECT (BEAKER) (test jbgd=744) 0.2 mg/dL 0.1-0.5 ALKALINE PHOSPHATASE (BEAKER) (test axqp=604) 118 U/L 40-150 AST (SGOT) (BEAKER) (test eipx=833) 22 U/L 5-34 ALT (SGPT) (BEAKER) (test ceyk=045) 9 U/L 6-55 COMPREHENSIVE METABOLIC [id number] 06:38:00 Test Item Value Reference Range Comments TOTAL PROTEIN (BEAKER) 6.8 gm/dL 6.0-8.3 (test ytxr=419) ALBUMIN (BEAKER) (test 3.4 g/dL 3.5-5.0 wfug=7754) ALKALINE PHOSPHATASE 118 U/L 40-150 (BEAKER) (test ivuw=799) BILIRUBIN TOTAL (BEAKER) 0.5 mg/dL 0.2-1.2 (test jpmd=737) SODIUM (BEAKER) (test 138 meq/L 136-145 idcr=735) POTASSIUM (BEAKER) (test 3.3 meq/L 3.5-5.1 nzah=840) CHLORIDE (BEAKER) (test 111 meq/L 98-107 ydqe=330) CO2 (BEAKER) (test 18 meq/L 22-29 itti=053) BLOOD UREA NITROGEN 29 mg/dL 7-21 (BEAKER) (test wkwk=141) CREATININE (BEAKER) (test 1.79 mg/dL 0.57-1.25 vjjg=493) GLUCOSE RANDOM (BEAKER) 86 mg/dL 70-105 (test fptk=548) CALCIUM (BEAKER) (test 8.6 mg/dL 8.4-10.2 mrvr=253) AST (SGOT) (BEAKER) (test 22 U/L 5-34 httm=105) ALT (SGPT) (BEAKER) (test 9 U/L 6-55 ocrz=076) EGFR (BEAKER) (test 37 mL/min/1.73 sq m ESTIMATED GFR IS NOT wupe=6752) ACCURATE CREATININE CLEARANCE IN PREDICTING GLOMERULAR FILTRATION RATE. ESTIMATED GFR IS NOT APPLICABLE FOR DIALYSIS PATIENTS. CBC W/PLT COUNT & AUTO [id number] 06:11:00 Test Item Value Reference Range Comments WHITE BLOOD CELL COUNT (BEAKER) (test odoa=712) 7.6 K/ L 3.5-10.5 RED BLOOD CELL COUNT (BEAKER) (test gfxr=796) 3.60 M/ L 3.93-5.22 HEMOGLOBIN (BEAKER) (test gcxi=903) 9.4 GM/DL 11.2-15.7 HEMATOCRIT (BEAKER) (test rxry=629) 30.1 % 34.1-44.9 MEAN CORPUSCULAR VOLUME (BEAKER) (test nvui=986) 83.6 fL 79.4-94.8 MEAN CORPUSCULAR HEMOGLOBIN (BEAKER) (test 26.1 pg 25.6-32.2 gldl=792) MEAN CORPUSCULAR HEMOGLOBIN CONC (BEAKER) (test 31.2 GM/DL 32.2-35.5 ogex=609) RED CELL DISTRIBUTION WIDTH (BEAKER) (test 14.6 % 11.7-14.4 wgkz=815) PLATELET COUNT (BEAKER) (test gnvw=043) 221 K/CU MM 150-450 MEAN PLATELET VOLUME (BEAKER) (test bkzx=643) 9.7 fL 9.4-12.3 NUCLEATED RED BLOOD CELLS (BEAKER) (test 0 /100 WBC 0-0 cazi=298) NEUTROPHILS RELATIVE PERCENT (BEAKER) (test 66 % rbso=185) LYMPHOCYTES RELATIVE PERCENT (BEAKER) (test 18 % anuf=285) MONOCYTES RELATIVE PERCENT (BEAKER) (test 12 % uksr=417) EOSINOPHILS RELATIVE PERCENT (BEAKER) (test 3 % ddww=074) BASOPHILS RELATIVE PERCENT (BEAKER) (test 1 % fstj=192) NEUTROPHILS ABSOLUTE COUNT (BEAKER) (test 5.00 K/ L 1.56-6.13 nfub=257) LYMPHOCYTES ABSOLUTE COUNT (BEAKER) (test 1.35 K/ L 1.18-3.74 coai=897) MONOCYTES ABSOLUTE COUNT (BEAKER) (test 0.87 K/ L 0.24-0.36 cywh=592) EOSINOPHILS ABSOLUTE COUNT (BEAKER) (test 0.22 K/ L 0.04-0.36 ogzq=656) BASOPHILS ABSOLUTE COUNT (BEAKER) (test 0.07 K/ L 0.01-0.08 nacv=218) IMMATURE GRANULOCYTES-RELATIVE PERCENT (BEAKER) 1 % 0-1 (test gwcj=8817) POCT-GLUCOSE [id number] 21:38:00 Test Item Value Reference Range Comments POC-GLUCOSE METER (BEAKER) 96 mg/dL 70-110 TESTED AT [address] (test lcrr=6444) [place] [address] POCT-GLUCOSE [id number] 18:19:00 Test Item Value Reference Range Comments POC-GLUCOSE METER (BEAKER) 121 mg/dL 70-110 TESTED AT [address] (test dwgp=8250) [place] [address] T4, [id number] 12:35:00 Test Item Value Reference Range Comments FREE T4 (BEAKER) (test xlbv=305) 1.25 ng/dL 0.70-1.48 POCT-GLUCOSE [id number] 12:27:00 Test Item Value Reference Range Comments POC-GLUCOSE METER (BEAKER) 127 mg/dL 70-110 TESTED AT [address] (test sjzz=4326) [place] [address] TSH/FREE T4 IF [id number] 12:07:00 Test Item Value Reference Range Comments THYROID STIMULATING HORMONE (BEAKER) (test 0.25 uIU/mL 0.35-4.94 ymse=784) [id number] 12:07:00 Test Item Value Reference Range Comments THYROID STIMULATING HORMONE (BEAKER) (test 0.25 uIU/mL 0.35-4.94 kred=301) LACTIC ACID, VENOUS, WHOLE [id number] 11:35:00 Test Item Value Reference Range Comments LACTATE BLOOD VENOUS (2) 0.6 mmol/L 0.5-2.2 Specimen slightly hemolyzed (BEAKER) (test lemj=6100) VANCOMYCIN LEVEL, [id number] 07:11:00 Test Item Value Reference Range Comments VANCOMYCIN RANDOM (BEAKER) (test ahar=207) 17.9 ug/mL Reference Range: No [id number] 07:09:00 Test Item Value Reference Range Comments PHOSPHORUS (BEAKER) (test srcq=480) 3.9 mg/dL 2.3-4.7 [id number] 07:09:00 Test Item Value Reference Range Comments MAGNESIUM (BEAKER) (test typr=116) 1.7 mg/dL 1.6-2.6 BASIC METABOLIC [id number] 07:09:00 Test Item Value Reference Range Comments SODIUM (BEAKER) (test 143 meq/L 136-145 rlea=652) POTASSIUM (BEAKER) (test 3.3 meq/L 3.5-5.1 gdln=411) CHLORIDE (BEAKER) (test 116 meq/L 98-107 wvng=777) CO2 (BEAKER) (test 16 meq/L 22-29 jlzj=912) BLOOD UREA NITROGEN 39 mg/dL 7-21 (BEAKER) (test iklm=520) CREATININE (BEAKER) (test 2.09 mg/dL 0.57-1.25 mhrf=303) GLUCOSE RANDOM (BEAKER) 121 mg/dL 70-105 (test eotx=899) CALCIUM (BEAKER) (test 8.6 mg/dL 8.4-10.2 jwdu=411) EGFR (BEAKER) (test 31 mL/min/1.73 sq m ESTIMATED GFR IS NOT hnfx=6863) ACCURATE CREATININE CLEARANCE IN PREDICTING GLOMERULAR FILTRATION RATE. ESTIMATED GFR IS NOT APPLICABLE FOR DIALYSIS PATIENTS. HEPATIC FUNCTION [id number] 07:09:00 Test Item Value Reference Range Comments TOTAL PROTEIN (BEAKER) (test ltkw=723) 7.0 gm/dL 6.0-8.3 ALBUMIN (BEAKER) (test peen=4141) 3.4 g/dL 3.5-5.0 BILIRUBIN TOTAL (BEAKER) (test zaka=518) 0.4 mg/dL 0.2-1.2 BILIRUBIN DIRECT (BEAKER) (test cutj=649) 0.2 mg/dL 0.1-0.5 ALKALINE PHOSPHATASE (BEAKER) (test tapk=601) 131 U/L 40-150 AST (SGOT) (BEAKER) (test mxjr=838) 20 U/L 5-34 ALT (SGPT) (BEAKER) (test btzu=241) 10 U/L 6-55 TROPONIN [id number] 06:54:00 Test Item Value Reference Range Comments TROPONIN I (BEAKER) (test zqsz=605) 0.08 ng/mL 0.00-0.03 LACTIC ACID, VENOUS, WHOLE [id number] 06:45:00 Test Item Value Reference Range Comments LACTATE BLOOD VENOUS (2) 0.8 mmol/L 0.5-2.2 Specimen slightly hemolyzed (BEAKER) (test poqr=0424) CBC W/PLT COUNT & AUTO [id number] 06:00:00 Test Item Value Reference Range Comments WHITE BLOOD CELL COUNT (BEAKER) (test dzcz=621) 7.4 K/ L 3.5-10.5 RED BLOOD CELL COUNT (BEAKER) (test fsri=233) 4.02 M/ L 3.93-5.22 HEMOGLOBIN (BEAKER) (test oxoz=634) 10.6 GM/DL 11.2-15.7 HEMATOCRIT (BEAKER) (test roaf=632) 33.3 % 34.1-44.9 MEAN CORPUSCULAR VOLUME (BEAKER) (test nhxn=573) 82.8 fL 79.4-94.8 MEAN CORPUSCULAR HEMOGLOBIN (BEAKER) (test 26.4 pg 25.6-32.2 ykzj=408) MEAN CORPUSCULAR HEMOGLOBIN CONC (BEAKER) (test 31.8 GM/DL 32.2-35.5 gmxk=592) RED CELL DISTRIBUTION WIDTH (BEAKER) (test 14.6 % 11.7-14.4 puww=238) PLATELET COUNT (BEAKER) (test xtce=221) 267 K/CU MM 150-450 MEAN PLATELET VOLUME (BEAKER) (test jann=177) 9.7 fL 9.4-12.3 NUCLEATED RED BLOOD CELLS (BEAKER) (test 0 /100 WBC 0-0 acwb=898) NEUTROPHILS RELATIVE PERCENT (BEAKER) (test 69 % lfqg=064) LYMPHOCYTES RELATIVE PERCENT (BEAKER) (test 15 % vkht=958) MONOCYTES RELATIVE PERCENT (BEAKER) (test 15 % pyax=086) EOSINOPHILS RELATIVE PERCENT (BEAKER) (test 0 % ssmz=178) BASOPHILS RELATIVE PERCENT (BEAKER) (test 0 % jdgz=685) NEUTROPHILS ABSOLUTE COUNT (BEAKER) (test 5.14 K/ L 1.56-6.13 kphu=192) LYMPHOCYTES ABSOLUTE COUNT (BEAKER) (test 1.12 K/ L 1.18-3.74 qcfa=833) MONOCYTES ABSOLUTE COUNT (BEAKER) (test 1.12 K/ L 0.24-0.36 mlri=818) EOSINOPHILS ABSOLUTE COUNT (BEAKER) (test 0.01 K/ L 0.04-0.36 uzqe=822) BASOPHILS ABSOLUTE COUNT (BEAKER) (test 0.03 K/ L 0.01-0.08 wyab=836) IMMATURE GRANULOCYTES-RELATIVE PERCENT (BEAKER) 0 % 0-1 (test epci=7771) CALCIUM, [id number] 05:58:00 Test Item Value Reference Range Comments CALCIUM IONIZED (BEAKER) (test kmiy=552) 1.12 mmol/L 1.12-1.27 PH, BLOOD (BEAKER) (test kjkr=6049) 7.39 EOSINOPHIL SMEAR, [id number] 20:17:00 Test Item Value Reference Range Comments EOSINOPHIL SMEAR, URINE (BEAKER) (test No EOS seen No EOS seen uxau=3368) BASIC METABOLIC [id number] 20:01:00 Test Item Value Reference Range Comments SODIUM (BEAKER) (test 144 meq/L 136-145 vnox=197) POTASSIUM (BEAKER) (test 3.2 meq/L 3.5-5.1 btmb=196) CHLORIDE (BEAKER) (test 114 meq/L 98-107 wogz=925) CO2 (BEAKER) (test 18 meq/L 22-29 rpvh=135) BLOOD UREA NITROGEN 42 mg/dL 7-21 (BEAKER) (test reiq=034) CREATININE (BEAKER) (test 2.14 mg/dL 0.57-1.25 gqai=763) GLUCOSE RANDOM (BEAKER) 141 mg/dL 70-105 (test shgh=767) CALCIUM (BEAKER) (test 8.9 mg/dL 8.4-10.2 njgp=545) EGFR (BEAKER) (test 30 mL/min/1.73 sq m ESTIMATED GFR IS NOT knon=8671) ACCURATE CREATININE CLEARANCE IN PREDICTING GLOMERULAR FILTRATION RATE. ESTIMATED GFR IS NOT APPLICABLE FOR DIALYSIS PATIENTS. LACTIC ACID, VENOUS, WHOLE [id number] 19:59:00 Test Item Value Reference Range Comments LACTATE BLOOD VENOUS (2) 0.8 mmol/L 0.5-2.2 Specimen slightly hemolyzed (BEAKER) (test dtid=1380) CT, BRAIN/STROKE [id number] 19:59:00Stroke Protocol. Phone/Page MD for reporting.Reason for [...] Huerta Verified Date/Time: 2017 19:59:01 Reading Location: [facility] Radiology Reading Room [id number] 19:51:00 Test Item Value Reference Range Comments PARTIAL THROMBOPLASTIN TIME (BEAKER) (test 33.1 seconds 22.5-36.0 xfqe=063) PROTHROMBIN TIME/[id number] 19:50:00 Test Item Value Reference Range Comments PROTIME (BEAKER) (test rpmi=200) 15.6 seconds 11.7-14.7 INR (BEAKER) (test dcxr=499) 1.2 <=5.9 RECOMMENDED COUMADIN/WARFARIN INR THERAPY RANGESSTANDARD DOSE: 2.0 - 3.0 Includes: PROPHYLAXIS forvenous thrombosis, systemic embolization; TREATMENT for venous thrombosis and/or pulmonary embolus.HIGH RISK: Target INR is 2.5-3.5 for patients with mechanical heart valves.HEMOGLOBIN AND [id number] 19 :41:00 Test Item Value Reference Range Comments HEMOGLOBIN (BEAKER) (test tsyo=067) 11.3 GM/DL 11.2-15.7 HEMATOCRIT (BEAKER) (test aoat=037) 35.4 % 34.1-44.9 CBC W/PLT COUNT & AUTO [id number] 19:41:00 Test Item Value Reference Range Comments WHITE BLOOD CELL COUNT (BEAKER) (test swcr=653) 6.8 K/ L 3.5-10.5 RED BLOOD CELL COUNT (BEAKER) (test vaqi=176) 4.36 M/ L 3.93-5.22 HEMOGLOBIN (BEAKER) (test gzqw=609) 11.3 GM/DL 11.2-15.7 HEMATOCRIT (BEAKER) (test ndgh=057) 35.4 % 34.1-44.9 MEAN CORPUSCULAR VOLUME (BEAKER) (test ummb=553) 81.2 fL 79.4-94.8 MEAN CORPUSCULAR HEMOGLOBIN (BEAKER) (test 25.9 pg 25.6-32.2 goss=305) MEAN CORPUSCULAR HEMOGLOBIN CONC (BEAKER) (test 31.9 GM/DL 32.2-35.5 luiq=188) RED CELL DISTRIBUTION WIDTH (BEAKER) (test 14.2 % 11.7-14.4 uefh=643) PLATELET COUNT (BEAKER) (test emrm=659) 263 K/CU MM 150-450 MEAN PLATELET VOLUME (BEAKER) (test cpcp=134) 9.4 fL 9.4-12.3 NUCLEATED RED BLOOD CELLS (BEAKER) (test 0 /100 WBC 0-0 cile=615) NEUTROPHILS RELATIVE PERCENT (BEAKER) (test 78 % idje=094) LYMPHOCYTES RELATIVE PERCENT (BEAKER) (test 10 % aftr=093) MONOCYTES RELATIVE PERCENT (BEAKER) (test 11 % quuk=337) EOSINOPHILS RELATIVE PERCENT (BEAKER) (test 0 % rjuk=075) BASOPHILS RELATIVE PERCENT (BEAKER) (test 0 % iths=324) NEUTROPHILS ABSOLUTE COUNT (BEAKER) (test 5.35 K/ L 1.56-6.13 xzeg=357) LYMPHOCYTES ABSOLUTE COUNT (BEAKER) (test 0.70 K/ L 1.18-3.74 lhrg=414) MONOCYTES ABSOLUTE COUNT (BEAKER) (test 0.76 K/ L 0.24-0.36 wyqj=590) EOSINOPHILS ABSOLUTE COUNT (BEAKER) (test 0.00 K/ L 0.04-0.36 jwrb=522) BASOPHILS ABSOLUTE COUNT (BEAKER) (test 0.01 K/ L 0.01-0.08 nzut=589) IMMATURE GRANULOCYTES-RELATIVE PERCENT (BEAKER) 0 % 0-1 (test nrkt=7770) TROPONIN [id number] 19:26:00 Test Item Value Reference Range Comments TROPONIN I (BEAKER) (test jfmg=446) 0.11 ng/mL 0.00-0.03 PROTEIN, RANDOM [id number] 19:19:00 Test Item Value Reference Range Comments PROTEIN, URINE (BEAKER) (test xqkq=6210) 325 mg/dL 0-14 POCT-GLUCOSE [id number] 19:00:00 Test Item Value Reference Range Comments POC-GLUCOSE METER (BEAKER) 158 mg/dL 70-[address] [facility] [address] [place] [address] (test sqai=4305) [facility] [id number] CREATININE, RANDOM [id number] 18:52:00 Test Item Value Reference Range Comments CREATININE URINE (BEAKER) (test mssd=010) 95.8 mg/dL Reference Range: No NormalsSODIUM, RANDOM [id number] 18:52:00 Test Item Value Reference Range Comments SODIUM URINE (BEAKER) (test gaxx=140) 28 meq/L Reference Range: No NormalsURINALYSIS W/ [id number] 18:02:00 Test Item Value Reference Range Comments COLOR (BEAKER) (test wpbf=646) Yellow CLARITY (BEAKER) (test fklr=690) Clear SPECIFIC GRAVITY UA (BEAKER) (test 1.014 1.001-1.035 vjka=720) PH UA (BEAKER) (test xyqk=594) 5.5 5.0-8.0 PROTEIN UA (BEAKER) (test wqmi=633) 300 mg/dL Negative GLUCOSE UA (BEAKER) (test gbvh=146) Negative Negative KETONES UA (BEAKER) (test wvzw=443) Negative Negative BILIRUBIN UA (BEAKER) (test odam=363) Negative Negative BLOOD UA (BEAKER) (test tyus=939) Trace Negative NITRITE UA (BEAKER) (test vnym=123) Negative Negative LEUKOCYTE ESTERASE UA (BEAKER) (test Negative Negative ndvy=653) UROBILINOGEN UA (BEAKER) (test snks=273) 0.2 mg/dL 0.2-1.0 RBC UA (BEAKER) (test llse=698) 21 /HPF WBC UA (BEAKER) (test qdhq=798) 1 /HPF MUCUS (BEAKER) (test gfek=3639) Rare SQUAMOUS EPITHELIAL (BEAKER) (test < /HPF abzp=507) HYALINE CASTS (BEAKER) (test jgwx=379) 1 /LPF SOURCE(BEAKER) (test bmey=5637) Urine, Clean Catch POCT-GLUCOSE [id number] 17:21:00 Test Item Value Reference Range Comments POC-GLUCOSE METER (BEAKER) 137 mg/dL 70-[address] [facility] [address] [facility] (test poyl=0345) [facility] [id number] BASIC METABOLIC [id number] 17:14:00 Test Item Value Reference Range Comments SODIUM (BEAKER) (test 146 meq/L 136-145 lvsu=629) POTASSIUM (BEAKER) (test 3.3 meq/L 3.5-5.1 acop=522) CHLORIDE (BEAKER) (test 114 meq/L 98-107 ysiq=192) CO2 (BEAKER) (test 20 meq/L 22-29 agib=210) BLOOD UREA NITROGEN 41 mg/dL 7-21 (BEAKER) (test oiwg=833) CREATININE (BEAKER) (test 2.12 mg/dL 0.57-1.25 fpea=472) GLUCOSE RANDOM (BEAKER) 135 mg/dL 70-105 (test qodo=205) CALCIUM (BEAKER) (test 8.9 mg/dL 8.4-10.2 xsnf=143) EGFR (BEAKER) (test 30 mL/min/1.73 sq m ESTIMATED GFR IS NOT cyyt=0003) ACCURATE CREATININE CLEARANCE IN PREDICTING GLOMERULAR FILTRATION RATE. ESTIMATED GFR IS NOT APPLICABLE FOR DIALYSIS PATIENTS. Call results [id number] ACID, VENOUS, WHOLE [id number] 14:19:00 Test Item Value Reference Range Comments LACTATE BLOOD VENOUS (2) (BEAKER) (test 1.1 mmol/L 0.5-2.2 ajpa=2304) THROMBIN [id number] 13:02:00 Test Item Value Reference Range Comments THROMBIN TIME (BEAKER) (test ewft=728) 17.8 secs 13.8-20.0 [id number] 13:01:00 Test Item Value Reference Range Comments PROCALCITONIN (BEAKER) (test rbuk=4069) 0.09 ng/mL <0.05 SEPSIS RISK (ng/mL)Low: 0.05-0.50Intermediate: 0.51-2.00High: & gt;=2.011:1 MIXING STUDY, [id number] 12:38:00 Test Item Value Reference Range Comments PROTIME (BEAKER) (test tles=851) 15.0 seconds 11.7-14.7 PARTIAL THROMBOPLASTIN TIME (BEAKER) (test 36.1 seconds 22.5-36.0 olhf=673) PT 1/1 MIX (BEAKER) (test qtfc=9736) 14.4 SECS 11.7-14.7 PTT 1/1 MIX (BEAKER) (test nlpb=6746) 35.5 SECS 22.5-36.0 TROPONIN [id number] 12:01:00 Test Item Value Reference Range Comments TROPONIN I (BEAKER) (test uekl=697) 0.13 ng/mL 0.00-0.03 HCG, QUANTITATIVE, [id number] 11:58:00 Test Item Value Reference Range Comments GONADOTROPIN, CHORIONIC (HCG) QUANT (BEAKER) (test < mIU/mL 0-10 zdvq=116) Non- Females: <10 mIU/mL Females: Gestation Age Reference Range(mIU/mL) 0.2-1 Week 5-50 1-2 Weeks 50-500 2-3 Weeks 100-5,000 3-4Weeks 500-10,000 4 -5 Weeks 1,000-50,000 5-6 Weeks 10,000-100,000 6-8 Weeks 15,000-200,000 2-3 Months 10,000-100,[id number] 11:55:00 Test Item Value Reference Range Comments LIPASE (BEAKER) (test gkog=407) 31 U/L 8-78 [id number] 11:55:00 Test Item Value Reference Range Comments AMYLASE (BEAKER) (test klui=978) 101 U/L 25-125 COMPREHENSIVE METABOLIC [id number] 11:55:00 Test Item Value Reference Range Comments TOTAL PROTEIN (BEAKER) 8.5 gm/dL 6.0-8.3 (test zqpb=141) ALBUMIN (BEAKER) (test 4.1 g/dL 3.5-5.0 xvmc=1379) ALKALINE PHOSPHATASE 170 U/L 40-150 (BEAKER) (test emkd=419) BILIRUBIN TOTAL (BEAKER) 0.3 mg/dL 0.2-1.2 (test mhcx=965) SODIUM (BEAKER) (test 143 meq/L 136-145 glzq=035) POTASSIUM (BEAKER) (test 2.9 meq/L 3.5-5.1 rccc=202) CHLORIDE (BEAKER) (test 111 meq/L 98-107 oyhc=916) CO2 (BEAKER) (test 19 meq/L 22-29 vawq=562) BLOOD UREA NITROGEN 41 mg/dL 7-21 (BEAKER) (test lsfc=371) CREATININE (BEAKER) (test 2.07 mg/dL 0.57-1.25 srsf=071) GLUCOSE RANDOM (BEAKER) 162 mg/dL 70-105 (test vvre=637) CALCIUM (BEAKER) (test 9.1 mg/dL 8.4-10.2 aocf=666) AST (SGOT) (BEAKER) (test 21 U/L 5-34 qrus=493) ALT (SGPT) (BEAKER) (test 11 U/L 6-55 hwzw=850) EGFR (BEAKER) (test 31 mL/min/1.73 sq m ESTIMATED GFR IS NOT zbdv=8537) ACCURATE CREATININE CLEARANCE IN PREDICTING GLOMERULAR FILTRATION RATE. ESTIMATED GFR IS NOT APPLICABLE FOR DIALYSIS PATIENTS. C-REACTIVE [id number] 11:55:00 Test Item Value Reference Range Comments C-REACTIVE PROTEIN (BEAKER) (test wwgp=805) 0.42 mg/dL 0.00-0.50 LACTIC ACID, VENOUS, WHOLE [id number] 11:51:00 Test Item Value Reference Range Comments LACTATE BLOOD VENOUS (2) 1.5 mmol/L 0.5-2.2 Specimen slightly hemolyzed (BEAKER) (test izsg=4457) [id number] 11:44:00 Test Item Value Reference Range Comments PARTIAL THROMBOPLASTIN TIME (BEAKER) (test 35.4 seconds 22.5-36.0 zbnv=599) CBC W/PLT COUNT & AUTO [id number] 11:30:00 Test Item Value Reference Range Comments WHITE BLOOD CELL COUNT (BEAKER) (test bmld=531) 9.2 K/ L 3.5-10.5 RED BLOOD CELL COUNT (BEAKER) (test jxpy=357) 4.90 M/ L 3.93-5.22 HEMOGLOBIN (BEAKER) (test dkwg=477) 12.7 GM/DL 11.2-15.7 HEMATOCRIT (BEAKER) (test hjnv=982) 39.7 % 34.1-44.9 MEAN CORPUSCULAR VOLUME (BEAKER) (test hpas=610) 81.0 fL 79.4-94.8 MEAN CORPUSCULAR HEMOGLOBIN (BEAKER) (test 25.9 pg 25.6-32.2 wmkj=723) MEAN CORPUSCULAR HEMOGLOBIN CONC (BEAKER) (test 32.0 GM/DL 32.2-35.5 wtmz=263) RED CELL DISTRIBUTION WIDTH (BEAKER) (test 14.3 % 11.7-14.4 brlc=268) PLATELET COUNT (BEAKER) (test yusd=318) 327 K/CU MM 150-450 MEAN PLATELET VOLUME (BEAKER) (test uqtl=575) 9.0 fL 9.4-12.3 NUCLEATED RED BLOOD CELLS (BEAKER) (test 0 /100 WBC 0-0 futk=222) NEUTROPHILS RELATIVE PERCENT (BEAKER) (test 88 % ukwd=893) LYMPHOCYTES RELATIVE PERCENT (BEAKER) (test 5 % gexb=291) MONOCYTES RELATIVE PERCENT (BEAKER) (test 6 % rplq=587) EOSINOPHILS RELATIVE PERCENT (BEAKER) (test 0 % rrvd=566) BASOPHILS RELATIVE PERCENT (BEAKER) (test 0 % fswk=913) NEUTROPHILS ABSOLUTE COUNT (BEAKER) (test 8.16 K/ L 1.56-6.13 qwoo=574) LYMPHOCYTES ABSOLUTE COUNT (BEAKER) (test 0.50 K/ L 1.18-3.74 cnhr=093) MONOCYTES ABSOLUTE COUNT (BEAKER) (test 0.53 K/ L 0.24-0.36 qtgx=681) EOSINOPHILS ABSOLUTE COUNT (BEAKER) (test 0.00 K/ L 0.04-0.36 thov=392) BASOPHILS ABSOLUTE COUNT (BEAKER) (test 0.01 K/ L 0.01-0.08 gskh=261) IMMATURE GRANULOCYTES-RELATIVE PERCENT (BEAKER) 0 % 0-1 (test kklw=4410) POCT-GLUCOSE [id number] 11:20:00 Test Item Value Reference Range Comments POC-GLUCOSE METER (BEAKER) 167 mg/dL 70-[address] [facility] [address] [facility] (test grcf=9153) [facility] [address] HEMOGLOBIN [id number] 11:15:00 Test Item Value Reference Range Comments HEMOGLOBIN A1C (BEAKER) (test xoho=299) 5.6 % 4.3-6.1 PROTHROMBIN [id number] 08:24:00 Test Item Value Reference Range Comments PROTIME (BEAKER) (test dkfs=965) 15.3 seconds 11.7-14.7 INR (BEAKER) (test sbhq=125) 1.2 <=5.9 RECOMMENDED COUMADIN/WARFARIN INR THERAPY RANGESSTANDARD DOSE: 2.0 - 3.0 Includes: PROPHYLAXIS forvenous thrombosis, systemic embolization; TREATMENT for venous thrombosis and/or pulmonary embolus.HIGH RISK: Target INR is 2.5-3.5 for patients with mechanical heart valves.RAD, ABDOMEN/KUB, 1 VIEW [id number] 08:13:00Reason for exam:->abdominal painFINAL REPORT INDICATION:Abdominal pain. [...] Olivier Verified Date/Time: 07/28 08:13:33 Reading Location: [facility] C013X Ortho Consult Reading Room TROPONIN [id number] 08:11:00 Test Item Value Reference Range Comments TROPONIN I (BEAKER) (test xrqo=206) 0.05 ng/mL 0.00-0.03 RAD, CHEST, 1 VIEW, NON [id number] 08:10:00Reason for exam:->chest painShould this be performed at the bedside?->YesFINAL REPORT RAD, CHEST, 1 VIEW, NON DEPT INDICATION: chest pain COMPARISON: Prior day's exam FINDINGS: Portable frontal view of the chest. IMPRESSION: Support Lines: None. Lungs and pleura: Clear lungs. No effusion. No pneumothorax.Heart and mediastinum: Unremarkable contours.Additional findings: None. Signed: JR Maya Robert MDReport Verified Date/Time: 07/28/2018 08:10:51 Reading Location: [facility] Radiology Reading Room BASIC METABOLIC [id number] 08:08:00 Test Item Value Reference Range Comments SODIUM (BEAKER) (test 146 meq/L 136-145 pqiz=304) POTASSIUM (BEAKER) (test 3.4 meq/L 3.5-5.1 Specimen slightly xxhl=922) hemolyzed CHLORIDE (BEAKER) (test 112 meq/L 98-107 cdtg=466) CO2 (BEAKER) (test 16 meq/L 22-29 uatv=006) BLOOD UREA NITROGEN 43 mg/dL 7-21 (BEAKER) (test nuiy=362) CREATININE (BEAKER) (test 2.26 mg/dL 0.57-1.25 Specimen slightly uiut=742) hemolyzed GLUCOSE RANDOM (BEAKER) 165 mg/dL 70-105 (test igvm=388) CALCIUM (BEAKER) (test 9.4 mg/dL 8.4-10.2 hwwc=921) EGFR (BEAKER) (test 28 mL/min/1.73 sq m ESTIMATED GFR IS NOT lxfa=3767) ACCURATE CREATININE CLEARANCE IN PREDICTING GLOMERULAR FILTRATION RATE. ESTIMATED GFR IS NOT APPLICABLE FOR DIALYSIS PATIENTS. [id number] 08:04:00 Test Item Value Reference Range Comments LIPASE (BEAKER) (test acyu=453) 12 U/L 8-78 HEPATIC FUNCTION [id number] 08:04:00 Test Item Value Reference Range Comments TOTAL PROTEIN (BEAKER) (test 9.1 gm/dL 6.0-8.3 Specimen slightly hemolyzed jrri=584) ALBUMIN (BEAKER) (test 4.4 g/dL 3.5-5.0 Specimen slightly hemolyzed ntbl=2877) BILIRUBIN TOTAL (BEAKER) (test 0.3 mg/dL 0.2-1.2 Specimen slightly hemolyzed oatl=947) BILIRUBIN DIRECT (BEAKER) (test 0.1 mg/dL 0.1-0.5 Specimen slightly hemolyzed uqfa=671) ALKALINE PHOSPHATASE (BEAKER) 177 U/L 40-150 (test bzjj=549) AST (SGOT) (BEAKER) (test 25 U/L 5-34 Specimen slightly hemolyzed hgcr=723) ALT (SGPT) (BEAKER) (test 12 U/L 6-55 Specimen slightly hemolyzed mmuf=669) COMPLEMENT COMPONENT [id number] 08:03:00 Test Item Value Reference Range Comments C4 COMPLEMENT (BEAKER) (test zklb=927) 25 mg/dL 15-57 COMPLEMENT COMPONENT [id number] 08:03:00 Test Item Value Reference Range Comments C3 COMPLEMENT (BEAKER) (test htuz=647) 125 mg/dL 82-193 POCT-BLOOD GASES, [id number] 07:57:00 Test Item Value Reference Range Comments TEMP, CELSIUS-POC (BEAKER) 37.0 (test gfho=2778) FIO2-POC (BEAKER) ([address] dz[address]) [place] [address] PH, ARTERIAL-POC (BEAKER) 7.416 7.350-7.450 (test yaqp=3092) PCO2, ARTERIAL-POC (BEAKER) 29.8 mm Hg 35.0-45.0 (test mcmv=3110) PO2, ARTERIAL-POC (BEAKER) 123.0 mm Hg 80.0-90.0 (test joty=2940) SO2, ARTERIAL-POC (BEAKER) 99.0 % 96.0-97.0 (test zeni=5850) HCO3, ARTERIAL-POC (BEAKER) 19.2 meq/L 21.0-29.0 (test yskr=1437) BASE EXCESS, ARTERIAL-POC -5.0 meq/L -2.0-3.0 (BEAKER) (test pgaj=6534) [id number] 07:57:00 Test Item Value Reference Range Comments POC-SODIUM (BEAKER) (test 146 meq/L 135-148 TESTED AT [address] vndb=8023) [place] [address] [id number] 07:57:00 Test Item Value Reference Range Comments POC-POTASSIUM (BEAKER) (test 2.7 meq/L 3.6-5.5 TESTED AT [address] vnui=4484) [place] [address] [id number] 07:57:00 Test Item Value Reference Range Comments POC-GLUCOSE (BEAKER) (test 176 mg/dL 70-110 TESTED AT [address] mnef=8976) [place] [address] POCT-CALCIUM [id number] 07:57:00 Test Item Value Reference Range Comments POC-CALCIUM IONIZED (BEAKER) 1.15 mmol/L 1.12-1.27 TESTED AT [address] (test jkuo=4205) [place] [address] [id number] 07:57:00 Test Item Value Reference Range Comments POC-HEMATOCRIT (BEAKER) (test 38 % 36-45 TESTED AT [address] rvoo=8186) [place] [address] [id number] 07:57:00 Test Item Value Reference Range Comments POC-HEMOGLOBIN (BEAKER) 12.9 g/dL 12.0-15.0 TESTED AT [address] (test eint=8305) [place] [id number] AT [address] [address] POCT-LACTIC ACID, [id number] 07:57:00 Test Item Value Reference Range Comments POC-LACTIC ACID, VENOUS 3.3 mmol/L 0.9-1.7 TESTED AT [address] (BEAKER) (test qygb=9785) [place] [id number] CBC W/PLT COUNT & AUTO [id number] 07:47:00 Test Item Value Reference Range Comments WHITE BLOOD CELL COUNT (BEAKER) (test mkqx=375) 9.6 K/ L 3.5-10.5 RED BLOOD CELL COUNT (BEAKER) (test ydut=821) 4.78 M/ L 3.93-5.22 HEMOGLOBIN (BEAKER) (test mysz=732) 12.2 GM/DL 11.2-15.7 HEMATOCRIT (BEAKER) (test ecaq=579) 39.2 % 34.1-44.9 MEAN CORPUSCULAR VOLUME (BEAKER) (test ochu=834) 82.0 fL 79.4-94.8 MEAN CORPUSCULAR HEMOGLOBIN (BEAKER) (test 25.5 pg 25.6-32.2 cgfs=142) MEAN CORPUSCULAR HEMOGLOBIN CONC (BEAKER) (test 31.1 GM/DL 32.2-35.5 rexn=062) RED CELL DISTRIBUTION WIDTH (BEAKER) (test 14.2 % 11.7-14.4 wvzl=769) PLATELET COUNT (BEAKER) (test oqdu=619) 301 K/CU MM 150-450 MEAN PLATELET VOLUME (BEAKER) (test pnie=805) 8.8 fL 9.4-12.3 NUCLEATED RED BLOOD CELLS (BEAKER) (test 0 /100 WBC 0-0 thhu=459) NEUTROPHILS RELATIVE PERCENT (BEAKER) (test 89 % xbni=396) LYMPHOCYTES RELATIVE PERCENT (BEAKER) (test 5 % semn=933) MONOCYTES RELATIVE PERCENT (BEAKER) (test 5 % ciij=502) EOSINOPHILS RELATIVE PERCENT (BEAKER) (test 0 % fmnj=549) BASOPHILS RELATIVE PERCENT (BEAKER) (test 0 % xupy=037) NEUTROPHILS ABSOLUTE COUNT (BEAKER) (test 8.56 K/ L 1.56-6.13 ofoq=298) LYMPHOCYTES ABSOLUTE COUNT (BEAKER) (test 0.52 K/ L 1.18-3.74 iuro=507) MONOCYTES ABSOLUTE COUNT (BEAKER) (test 0.46 K/ L 0.24-0.36 dgpa=128) EOSINOPHILS ABSOLUTE COUNT (BEAKER) (test 0.00 K/ L 0.04-0.36 amos=429) BASOPHILS ABSOLUTE COUNT (BEAKER) (test 0.02 K/ L 0.01-0.08 kzau=041) IMMATURE GRANULOCYTES-RELATIVE PERCENT (BEAKER) 0 % 0-1 (test syoj=3330)
[2019-09-20] MEDS ORDERED: MEPERIDINE HCL 50 MG/ML ONE (13:12)
[2019-09-20] MEDS ORDERED: NA CHLORIDE 0.9% 1,000 ML ONE ×2 (13:13→16:21)
[2019-09-20] MEDS ORDERED: ONDANSETRON 4 MG/2 ML VIAL ONE (13:13)
[2019-09-20 13:53] LABS: Absolute Lymphocytes (CBC) 0.9 K/uL (0.7-4.9); Basophils % 0.4 % (0-1.3); Hematocrit 27.2 % (36.0-45.0); Lymphocytes % 11.8 % (15.3-44.8); MPV 7.6 fL (7.6-11.3); RBC Red Blood Cell Count 3.22 M/uL (3.86-4.86)
[2019-09-20] MEDS ORDERED: PROMETHAZINE INJ 25 MG/ML AMP ONE (13:59)
[2019-09-20 14:01] LABS: Albumin 2.5 g/dL (3.4-5.0); Bilirubin Direct 0.1 mg/dL (0-0.2); Bilirubin Total 0.5 mg/dL (0.2-1.0); Potassium 3.3 mmol/L (3.5-5.1); Protein, Total 7.7 g/dL (6.4-8.2)
[2019-09-20] MEDS ORDERED: HYDRALAZINE HCL 20 MG/ML VIAL ONE (14:49)
--- NOTE | 2019-09-20 15:26 | RAD REPORT ---
EXAM DESCRIPTION: CT - Abdomen Pelvis Wo Contrast - 09/20/2019 3:17 pm CLINICAL HISTORY: Abdominal pain. diarrhea, recent colostomy reversal;Abd pain COMPARISON: Abdomen Pelvis Wo Contrast dated 09/08/2019 TECHNIQUE: CT imaging of the abdomen and pelvis was performed without contrast. Solid organ and vasc ular assessment is limited due to lack of IV contrast. All CT scans are performed using dose optimization technique as appropriate and may include automated exposure control or mA/KV adjustment according to patient size. FINDINGS: Small bilateral pleural effusions are seen with atelectasis or infiltrate in the left lung base present. Noncontrast assessment of the liver demonstrates no focal mass or biliary dilatation. The spleen, hein creas, adrenal glands and kidneys are within normal limits for limited noncontrast examination. Postsurgical changes are present in the right abdomen at the site of previous ostomy. Oral contrast h as not yet reached this region making full assessment quite limited. There is mild thickening of the ascending colon seen. A portion of the transverse colon is distended with air and fluid. The osseous structures are within normal limits. IMPRESSION: Postsurgical changes are present in the right abdomen the site of previous colostomy. As sessment in this region is limited by lack oral contrast material however it appears grossly similar to 09/08/2019 study. Mild thickening of the right colon is seen which raises the possibility of a mild right-sided colitis . Small bilateral pleural effusions with area of pneumonia or atelectasis in the left lung base. A limited non-contrast examination was performed as detailed.
[2019-09-20] MEDS ORDERED: cloNIDine HCL 0.1 MG TAB ONE (16:21)
[2019-09-20] MEDS ORDERED: HYDROMORPHONE HCL 1 MG/ML INJ ONE (16:21)
[2019-09-20] MEDS ORDERED: LABETALOL 20 MG/4ML SYRINGE IV ONE (16:49)
--- NOTE | 2019-09-20 18:15 | EDPHYS ---
Physician Documentation [facility] Name: Babs Younger Age: 49 yrs Sex: Female : 1970 Arrival Date: 09/20/2019 Time: 12:18 Bed 16 Private MD: ED Physician Irvin Ibarra HPI: 09/20 12:29 This 49 yrs old Black Female presents to ER via Unassigned with complaints of rn Nausea/Vomiting. 12:29 The patient presents to the emergency department with nausea, vomiting, diarrhea, rn abdominal pain. Onset: The symptoms/episode began/occurred 1 month(s) ago. The symptoms are aggravated by nothing. The symptoms are alleviated by nothing. Severity of symptoms: At their worst the symptoms were moderate in the emergency department the symptoms are unchanged. The patient has not experienced similar symptoms in the past. Reports had colostomy reversal last month, since then has been having nausea/vomiting/diarrhea, had to be hospitalized for 2 weeks recently, given fluids and pain medication and discharged 2 days ago. Reports less abd pain, but feels dehydrated and weak. No blood in stool. . Historical: - Allergies: 12:33 Morphine; ss - PMHx: 12:33 bowel obstruction; Diabetes - IDDM; Hypertension; Lupus; Renal Disease; ss - PSHx: 12:33 colostomy reversal; ss - Immunization history:: Adult Immunizations up to date. - Social history:: Smoking status: Patient denies any tobacco usage or history of. - Family history:: not pertinent. - Ebola Screening: : Patient denies exposure to infectious person Patient denies travel to an Ebola-affected area in the 21 days before illness onset. - Hospitalizations: : Patient was recently seen at. ROS: 12:29 Constitutional: Negative for fever, chills, and weight loss, Eyes: Negative for injury, rn pain, redness, and discharge, Neck: Negative for injury, pain, and swelling, Cardiovascular: Negative for chest pain, palpitations, and edema, Respiratory: Negative for shortness of breath, cough, wheezing, and pleuritic chest pain, Abdomen/GI: + for abd pain/nausea/vomiting/diarrhea MS/Extremity: Negative for injury and deformity, Skin: Negative for injury, rash, and discoloration, Neuro: + generalized weakness Exam: 12:29 Constitutional: This is a well developed, well nourished patient who is awake, alert, rn and in no acute distress. Head/Face: Normocephalic, atraumatic. ENT: dry MM Cardiovascular: Regular rate and rhythm. No pulse deficits. Respiratory: No increased work of breathing, no retractions or nasal flaring. Abdomen/GI: soft, non-tender MS/ Extremity: Pulses equal, no cyanosis. Neurovascular intact. Full, normal range of motion. Equal circumference. Neuro: Awake and alert, GCS 15, oriented to person, place, time, and situation. Cranial nerves II-XII grossly intact. Motor strength 5/5 in all extremities. Sensory grossly intact. Vital Signs: 12:33 BP 228 / 110; Pulse 79; Resp 17; Temp 97.8(O); Pulse Ox 100% on R/A; Height 5 ft. 2 in. ss (157.48 cm); Pain 5/10; 12:54 BP 201 / 91; Pulse 79; ss 14:15 BP 229 / 93; Pulse 71; Pulse Ox 97% on R/A; ss 15:00 BP 238 / 95; Pulse 85; Resp 16; Pulse Ox 100% on R/A; ss 16:15 BP 230 / 94; Pulse 75; Resp 15; Pulse Ox 98% on R/A; ss 17:09 BP 243 / 102; Pulse 65; Resp 16; Pulse Ox 100% on R/A; ss 17:54 BP 226 / 98; Pulse 72; Resp 16; Pulse Ox 99% on R/A; ss MDM: 12:18 Patient medically screened. rn 16:26 Differential diagnosis: Nonspecific abd pain, post surgical changes, colitis, rn dehydration. Data reviewed: vital signs, nurses notes, lab test result(s), radiologic studies, CT scan, and as a result, I will discharge patient. Counseling: I had a detailed discussion with the patient and/or guardian regarding: the historical points, exam findings, and any diagnostic results supporting the discharge/admit diagnosis, lab results, radiology results, the need for outpatient follow up, to return to the emergency department if symptoms worsen or persist or if there are any questions or concerns that arise at home. Response to treatment: the patient's symptoms have markedly improved after treatment, and as a result, I will discharge patient. Special discussion: I discussed with the patient/guardian in detail that at this point there is no indication for admission to the hospital. It is understood, however, that if the symptoms persist or worsen the patient needs to return immediately for re-evaluation. ED course: Pt feels better, ct shows similar findings to previous, had IV abx without change, may be secondary to surgery and not truly infectious. No elevation in WBC, afebrile. BP elevated due to not taking her home meds today, no vascular emergency due to BP. Patient updated, states feels better and wants to go home. Will give some more fluids and clonidine for BP. Return precautions given. Will need to f/u with her surgeon as told. . 16:36 ED course: Pt denies cough, findings on imaging most likely atelectasis. Denies sob. . rn 09/20 12:25 Order name: Basic Metabolic Panel; Complete Time: 14:02 rn 09/20 12:25 Order name: CBC with Diff; Complete Time: 14:02 rn 09/20 12:25 Order name: Creatinine for Radiology; Complete Time: 13:58 rn 09/20 12:25 Order name: Hepatic Function; Complete Time: 14:02 rn 09/20 12:25 Order name: Lipase; Complete Time: 14:02 rn 09/20 14:01 Order name: Abdomen ; Complete Time: 15:30 EDMS 09/20 12:25 Order name: IV Saline Lock; Complete Time: 13:31 rn 09/20 12:25 Order name: Labs collected and sent; Complete Time: 13:31 rn Administered Medications: 13:27 Drug: Zofran 4 mg Route: IVP; Site: left upper arm; ss 14:41 Follow up: Response: No adverse reaction; Nausea unchanged ss 13:30 Drug: Demerol 50 mg Route: IVP; Site: left upper arm; ss 14:40 Follow up: Response: No adverse reaction; Pain is decreased ss 13:31 Drug: NS 0.9% 1000 ml Route: IV; Rate: 1000 ml; Site: left antecubital; ss 16:52 Follow up: IV Status: Completed infusion ss 14:01 Drug: Phenergan 12.5 mg Route: IVP; Site: left upper arm; ss 14:40 Follow up: Response: No adverse reaction; Nausea is decreased ss 14:49 Drug: hydrALAZINE 10 mg Route: IV; Rate: calculated rate; Site: left upper arm; ss 14:52 Follow up: IV Status: Completed infusion ss 16:53 Follow up: Response: Blood pressure is unchanged ss 16:25 Drug: Dilaudid 1 mg Route: IVP; Site: left upper arm; ss 16:51 Follow up: Response: No adverse reaction; Pain is decreased ss 16:25 Not Given (Dr. Ibarra changed volume to 500 ml): NS 0.9% 1000 ml IV at 1000 ml once ss 16:25 Drug: NS 0.9% 500 ml Route: IV; Rate: bolus; Site: left upper arm; ss 18:14 Follow up: IV Status: Completed infusion; IV Intake: 500ml ss 16:26 Drug: cloNIDine 0.2 mg Route: PO; ss 16:52 Follow up: Response: No adverse reaction; Blood pressure is unchanged ss 16:56 Drug: Labetalol 5 mg Route: IVP; Infused Over: 2 mins; Site: right antecubital; ss 18:13 Follow up: Response: BP decreased minimally. Dr. Ibarra notified. Pt verbalizes ss understanding to take home medications when she gets home. Disposition: 09/20/19 16:31 Discharged to Home. Impression: Dehydration, Hypertension. - Condition is Stable. - Discharge Instructions: Dehydration, Adult, Diarrhea, Adult, Rehydration, Adult. - Prescriptions for Phenergan 25 mg Rectal Suppository - insert 1 suppository by RECTAL route every 6 hours As needed; 20 suppository. - Medication Reconciliation Form, Thank You Letter, Antibiotic Education, Prescription Opioid Use form. - Follow up: Private Physician; When: As needed; Reason: Recheck today's complaints, Re-evaluation by your physician. - Problem is an ongoing problem. - Symptoms have improved. Signatures: Dispatcher [employer] [facility] Irvin Ibarra MD MD rn Smirch, Shelby, RN RN ss Corrections: (The following items were deleted from the chart) 14:01 12:26 Abdomen Pelvis W Con+CT.RAD.BRZ ordered. [facility] 18:14 16:31 09/20/2019 16:31 Discharged to Home. Impression: Dehydration; Hypertension. ss Condition is Stable. Forms are Medication Reconciliation Form, Thank You Letter, Antibiotic Education, Prescription Opioid Use. Follow up: Private Physician; When: As needed; Reason: Recheck today's complaints, Re-evaluation by your physician. Problem is an ongoing problem. Symptoms have improved. rn
--- NOTE | 2019-09-20 18:15 | ER ---
Nurse's Notes [facility] Juan Manuel Name: Babs Younger Age: 49 yrs Sex: Female : 1970 Arrival Date: 09/20/2019 Time: 12:18 Bed 16 Private MD: Diagnosis: Dehydration;Hypertension Presentation: 09/20 12:28 Presenting complaint: Patient states: N/V/D x 2 days. Pt was released recently from [facility] after complications from a colostomy reversal and is concerned she may be dehydrated. Transition of care: patient was not received from another setting of care. Onset of symptoms was September 18, 2019. Risk Assessment: Do you want to hurt yourself or someone else? Patient reports no desire to harm self or others. Initial Sepsis Screen: Does the patient meet any 2 criteria? No. Patient's initial sepsis screen is negative. Does the patient have a suspected source of infection? No. Patient's initial sepsis screen is negative. Care prior to arrival: None. 12:28 Method Of Arrival: EMS: [facility] 12:28 Acuity: ELVA 2 Historical: - Allergies: 12:33 Morphine; - PMHx: 12:33 bowel obstruction; Diabetes - IDDM; Hypertension; Lupus; Renal Disease; - PSHx: 12:33 colostomy reversal; - Immunization history:: Adult Immunizations up to date. - Social history:: Smoking status: Patient denies any tobacco usage or history of. - Family history:: not pertinent. - Ebola Screening: : Patient denies exposure to infectious person Patient denies travel to an Ebola-affected area in the 21 days before illness onset. - Hospitalizations: : Patient was recently seen at. Screenin:15 Abuse screen: Denies threats or abuse. Denies injuries from another. Nutritional screening: No deficits noted. Tuberculosis screening: Never had TB. Fall Risk No fall in past 12 months (0 pts). Secondary diagnosis (15 points) impaired mobility, IV access (20 points). Ambulatory Aid- None/Bed Rest/Nurse Assist (0 pts). Gait- Normal/Bed Rest/Wheelchair (0 pts) Mental Status- Oriented to own ability (0 pts). Assessment: 12:31 General: Appears comfortable, Behavior is calm, cooperative. Pain: Complains of pain in abdomen Pain currently is 5 out of 10 on a pain scale. at worst was 7 out of 10 on a pain scale. 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 Cardiovascular: Pulses are palpable in right radial artery, right posterior tibial artery, left radial artery and left posterior tibial artery. Respiratory: Airway is patent Respiratory effort is even, unlabored, Respiratory pattern is regular, symmetrical. GI: Abdomen is non-distended, Scaring noted to abd from previous surgeries. Reports lower abdominal pain, diarrhea, nausea, vomiting, since x 2 days. : Reports incontinence. EENT: Oral mucosa is moist. Throat is clear. Derm: Skin is intact, is healthy with good turgor, Skin is pink, warm \T\ dry. normal. Musculoskeletal: Circulation, motion, and sensation intact. Range of motion: intact in all extremities, Swelling absent. 13:45 Reassessment: Pt cleaned of bowel incontinence. Large soft bm noted in brief. Pt is ss cleaned with assistance and new brief placed. Additional warm blankets given. 15:11 Reassessment: Pt to CT. ss 16:26 Reassessment: Dr. Ibarra notified of blood pressure unchanged. Additional medication ss ordered and administered Patient states feeling better. Patient states symptoms have improved. 16:45 Reassessment: Patient appears in no apparent distress at this time. Patient and/or ss family updated on plan of care and expected duration. Pain level reassessed. Patient is alert, oriented x 3, equal unlabored respirations, skin warm/dry/pink. Dr. Ibarra aware of BP. Pt cleaned of urinary incontinence. Linens changed. 16:56 Reassessment: Patient appears in no apparent distress at this time. Patient and/or ss family updated on plan of care and expected duration. Pain level reassessed. Patient is alert, oriented x 3, equal unlabored respirations, skin warm/dry/pink. Dr. Ibarra notified of unchanged BP. Additional medication ordered and administered. 17:30 Reassessment: Son JAYE on the way to transport patient home. PT cleaned of urinary ss incontinence. 18:00 Reassessment: Dr. Ibarra okay with patient being discharged nicholas at this time. Pt ss verbalizes understanding that when she gets home she must take her scheduled medications. Vital Signs: 12:33 BP 228 / 110; Pulse 79; Resp 17; Temp 97.8(O); Pulse Ox 100% on R/A; Height 5 ft. 2 in. ss (157.48 cm); Pain 5/10; 12:54 BP 201 / 91; Pulse 79; ss 14:15 BP 229 / 93; Pulse 71; Pulse Ox 97% on R/A; ss 15:00 BP 238 / 95; Pulse 85; Resp 16; Pulse Ox 100% on R/A; ss 16:15 BP 230 / 94; Pulse 75; Resp 15; Pulse Ox 98% on R/A; ss 17:09 BP 243 / 102; Pulse 65; Resp 16; Pulse Ox 100% on R/A; ss 17:54 BP 226 / 98; Pulse 72; Resp 16; Pulse Ox 99% on R/A; ss ED Course: 12:18 Patient arrived in ED. rn 12:18 Irvin Ibarra MD is Attending Physician. rn 12:31 Triage completed. ss 12:33 Arm band placed on right wrist. ss 12:53 Saray Newman, LUIS is Primary Nurse. ss 13:15 Patient has correct armband on for positive identification. Placed in gown. Bed in low ss position. Call light in reach. Side rails up X 1. oil field caser on. Pulse ox on. NIBP on. 13:15 Patient maintains SpO2 saturation greater than 95% on room air. ss 13:20 Inserted PowerGlide Midline Catheter, 18 G LUE, blood return, flushes easily, pt sg tolerated well. 15:16 Abdomen In Process Unspecified. EDMS 18:11 No provider procedures requiring assistance completed. IV discontinued, intact, ss bleeding controlled, No redness/swelling at site. Pressure dressing applied. Administered Medications: 13:27 Drug: Zofran 4 mg Route: IVP; Site: left upper arm; ss 14:41 Follow up: Response: No adverse reaction; Nausea unchanged ss 13:30 Drug: Demerol 50 mg Route: IVP; Site: left upper arm; ss 14:40 Follow up: Response: No adverse reaction; Pain is decreased ss 13:31 Drug: NS 0.9% 1000 ml Route: IV; Rate: 1000 ml; Site: left antecubital; ss 16:52 Follow up: IV Status: Completed infusion ss 14:01 Drug: Phenergan 12.5 mg Route: IVP; Site: left upper arm; ss 14:40 Follow up: Response: No adverse reaction; Nausea is decreased ss 14:49 Drug: hydrALAZINE 10 mg Route: IV; Rate: calculated rate; Site: left upper arm; ss 14:52 Follow up: IV Status: Completed infusion ss 16:53 Follow up: Response: Blood pressure is unchanged ss 16:25 Drug: Dilaudid 1 mg Route: IVP; Site: left upper arm; ss 16:51 Follow up: Response: No adverse reaction; Pain is decreased ss 16:25 Not Given (Dr. Ibarra changed volume to 500 ml): NS 0.9% 1000 ml IV at 1000 ml once ss 16:25 Drug: NS 0.9% 500 ml Route: IV; Rate: bolus; Site: left upper arm; ss 18:14 Follow up: IV Status: Completed infusion; IV Intake: 500ml ss 16:26 Drug: cloNIDine 0.2 mg Route: PO; ss 16:52 Follow up: Response: No adverse reaction; Blood pressure is unchanged ss 16:56 Drug: Labetalol 5 mg Route: IVP; Infused Over: 2 mins; Site: right antecubital; ss 18:13 Follow up: Response: BP decreased minimally. Dr. Ibarra notified. Pt verbalizes ss understanding to take home medications when she gets home. Intake: 18:14 IV: 500ml; Total: 500ml. ss Outcome: 16:31 Discharge ordered by . rn 18:11 Discharged to home via wheelchair, with family. ss 18:11 Condition: improved 18:11 Discharge instructions given to patient, family, Instructed on discharge instructions, follow up and referral plans. medication usage, Demonstrated understanding of instructions, follow-up care, medications, Prescriptions given X 1. 18:14 Patient left the ED. ss Signatures: Dispatcher [employer] Currie RN RN sg Nieto, Roman, MD MD rn Smirch, Shelby, RN RN ss Corrections: (The following items were deleted from the chart) 20:22 17:54 BP 236 / 98; Pulse 72bpm; Resp 16bpm; Pulse Ox 99% RA; ss ss
[2019-09-20 18:19] VITALS: TEMP 97.8
[2019-09-20 18:26] VITALS: BP 236/98; O2SAT 99
== END 2019-09-20 18:14 | disposition home or self-care (01) ==
LOC: ER 12:14
DX: E86.0 Dehydration (principal); I10 Essential (primary) hypertension; Z88.5 Allergy status to narcotic agent
CPT/HCPCS: 96361; 85025; 80048; 36415; 80076; 83690; 74176; 96375; 96374; 99285; J0360; J2550; J2175; J1170; J7030 ×2; J2405

== ENCOUNTER 2020-08-30 02:51 | Observation (INO) | payer OTHER ==
--- OUTSIDE RECORDS SUMMARY | 2020-08-30 02:54 | XMS REPORT | Clinical Summary ---
:1970 Author Organization [facility] Address [address] [place] [address] Care Team Providers Name Role Phone Pcp, Cindy MD Primary Care Provider Unavailable Allergies Active Allergy Reactions Severity Noted Date Comments Shellfish Containing Products 07/28/2018 Medications Medication Sig Dispensed Refills Start Date End Date Status amLODIPine (NORVASC) 10 MG Take 10 mg by 0 5 Active tablet mouth. cloNIDine HCl (CATAPRES) Take [...] (LOPRESSOR) 100 Take 100 mg by 0 07/09/20 15 Active MG tablet mouth 2 (two) times [...] 8 DIS 1 T ON THE 0 07/21/20 18 Active MG disintegrating tablet TONGUE BID pantoprazole (PROTONIX) 40 Take 40 mg by 0 Active MG tablet mouth daily. Active Problems Problem Noted Date Abdominal pain 07/28/2018 Systemic lupus erythematosus 07/28/2018 Essential hypertension 07/28/2018 Type 2 diabetes mellitus with kidney complication, wit h long-term current 07/28/2018 use of insulin Colostomy complication 07/28/2018 bright red blood in colostomy 07/28/2018 HTN (hypertension), malignant 07/28/2018 Lupus nephritis 07/28/2018 DAE (acute kidney injury) 07/28/2018 Hypernatremia 07/28/2018 Hypokalemia 07/28/2018 Family History Medical History Relation Name Comments [...] six or more drinks on one occasion? No t asked Sex Assigned at Date Recorded Not on file Last Filed Vital Signs Not on file Plan of Treatment Health Maintenance Due Date Last Done Comments DIABETIC EYE EXAM 1980 DIABETIC FOOT EXAM 1980 URINE MICROALBUMIN 1980 CERVICAL CANCER SCREENING PAP ONLY (Age 21-65) 1991 PNEUMOCOCCAL VACCINE 0-64 YRS (2 of 3 - PCV13) 06/16/2014 1 LIPID PANEL 2015 MEDICARE ANNUAL WELLNESS (YEAR 2 or FIRST YEAR if no 08/30/2018 IPPE) HEMOGLOBIN A1C 01/25/2019 07/28/2018 INFLUENZA VACCINE (#1) 2020 06/16/2013 Results Not on fileafter 08/30/2019 Insurance Payer Benefit Plan / Subscriber ID Effective Dates Phone Addre ss Type Group [employer] UNITED MEDICARE [id number] 2017-Present - MEDICARE [facility] MEDICAID MEDICAID OF [id number] 2017-Present Akil GAMBOA [id number] Advance Directives For more information, please contact: [phone] Code Status Date Activated Date Inactivated Comments Full Code 07/28/2018 9:49 AM This code status was determined by: Patient Full Code 07/28/2018 5:19 AM 07/28/2018 9:49 AM This code status was determined by: Patient
--- OUTSIDE RECORDS SUMMARY | 2020-08-30 02:54 | XMS REPORT | Clinical Summary ---
:1970 Author Organization [facility] Address [address] [place] [address] Care Team Providers Name Role Phone Dorota Espinoza DO Primary Care Provider Allergies Active Allergy Reactions Severity Noted Date Comments Morphine Palpitations Medium 05/13/2016 Shellfish Containing Rash High 05/17/2016 nausea, headache, Products weakness Medications Medication Sig Dispensed Refills Start End Date Status Date mycophenolate Take 1,000 0 Activ e (CELLCEPT) 500 mg mg by mouth 7 tablet 2 (two) times a day. zolpidem (AMBIEN) 10 Take 10 mg 0 Active mg tablet by mouth 7 nightly as needed for sleep. hydroxychloroquine Take 500 mg 0 Active (PLAQUENIL) 200 mg by mouth 2 tablet (two) times a day. HYDROCODONE/ACETAMINOP Take by 0 Active HEN (NORCO ORAL) mouth as needed. ALPRAZolam (XANAX) 0.5 Take 0.5 mg 0 Active MG tablet by mouth 2 (two) times a day as needed for anxiety. sertraline (ZOLOFT) 25 Take 25 mg 0 Active MG tablet by mouth daily. pilocarpine (SALAGEN) Take 5 mg by 0 Active 5 MG tablet mouth daily. sodium bicarbonate 650 Take 648 mg 0 Active mg tablet by mouth daily. doxazosin (CARDURA) 4 Take 4 mg by 0 09/04 Discontinued MG tablet mouth daily. 7 20 (Stop T aking at Discharge) metoprolol tartrate Take 100 mg 0 09/04/19 Discontinued (LOPRESSOR) 100 mg by mouth 2 20 (Stop Taking at tablet (two) times Discharg e) a day. clonIDINE HCl Take 0.3 mg 0 09/04/19 Disc ontinued (CATAPRES) 0.3 MG by mouth 3 20 ( Stop Taking at tablet (three) Discharge) times a day. hydrALAZINE Take 50 mg 0 09/04/19 Discont inued (APRESOLINE) 50 MG by mouth 3 20 (Stop Taking at tablet (three) Discharge) times a day. amLODIPine (NORVASC) Take 10 mg 0 09/04/19 Discontinued 10 mg tablet by mouth 20 (Stop T aking at daily. Discharge) furosemide (LASIX) 40 Take 40 mg 0 0 Discontinued mg tablet by mouth 2 20 (Stop David ing at (two) times Discharg e) a day. GABAPENTIN ORAL Take 500 mg 0 09/18/19 Di scontinued by mouth as 20 (Stop Ta glenn at needed. Discharge) clonIDINE (CATAPRES) Take 1 180 tablet 0 10/04/19 0.1 MG tablet tablet (0.1 0 20 mg total) by mouth every 4 (four) hours as needed for high blood pressure for up to 30 days. hydrALAZINE Take 1 90 tablet 0 10/04/19 (APRESOLINE) 100 MG tablet (100 0 20 tablet mg total) by mouth 3 (three) times a day for 30 days. amoxicillin-pot Take 10.9 mL 218 mL 0 09/18/19 D iscontinued clavulanate (875 mg 0 20 (Stop Ta glenn at (AUGMENTIN) 400-57 total) by D ischarge) mg/5 mL suspension mouth every 12 (twelve) hours for 10 days. carvedilol (COREG) 25 Take 1 60 tablet 0 10/04/19 MG tablet tablet (25 0 20 mg total) by mouth 2 (two) times a day for 30 days. levETIRAcetam (KEPPRA) Take 1 60 tablet 0 0 1000 MG tablet tablet 0 20 (1,000 mg total) by mouth 2 (two) times a day for 30 days. NIFEdipine XL Take 1 60 tablet 0 09/18/19 Discon tinued (PROCARDIA XL) 60 MG tablet (60 0 20 (Stop Taking at 24 hr tablet mg total) by Disc harcaron) mouth 2 (two) times a day for 30 days. pantoprazole Take 1 60 tablet 0 10/04/19 (PROTONIX) 40 MG EC tablet (40 0 20 tablet mg total) by mouth 2 (two) times a day for 30 days. metroNIDAZOLE (FLAGYL) Take 1 30 tablet 0 0 Discontinued 500 MG tablet tablet (500 0 20 (Sto p Taking at mg total) by Dischrowan ge) mouth 3 (three) times a day for 10 days. gabapentin (NEURONTIN) Take 1 90 capsule 0 300 mg capsule capsule (300 0 20 mg total) by mouth 3 (three) times a day for 30 days. NIFEdipine XL Take 1 60 tablet 0 10/18/19 d (PROCARDIA XL) 90 MG tablet (90 0 20 24 hr tablet mg total) by mouth 2 (two) times a day for [address]. [address] 1 4 patch 0 10/24/19 (CATAPRES-TTS) 0.3 patch (0.3 0 20 mg/24 hr mg total) on the skin once a week for 30 days. Active Problems Problem Noted Date Hypertensive emergency 09/09/2019 Attention to ileostomy 08/24/2019 Type 2 diabetes mellitus 07/02/2019 CKD (chronic kidney disease) stage 4, GFR 15-29 ml/min 07/02/2019 HTN (hypertension) 07/02/2019 SLE (systemic lupus erythematosus related syndrome) Rheumatoid arthritis 07/02/2019 Attention to colostomy 07/02/2019 History of ischemic colitis 06/14/[address] 02/23/2017 Encounters Date Type Specialty Care Team Description 09/13/2019 Orders Only Neurology Marie Byrnes MD 09/09/2019 - Hospital Encounter Neurology Darrel Burgess Hypert ensive emergency (Primary Dx); 09/18/2019 MD Francisco Abdominal pain, unspecified abdominal lo cation Tu, MD Abdoul Arango Kelvin M., MD 09/04/2019 Refill General Surgery Darrel Burgess MD 09/04/2019 Refill General Surgery Darrel Burgess MD 09/04/2019 Refill General Surgery Darrel Burgess MD 09/04/2019 Refill General Surgery Darrel Burgess MD 09/04/2019 Refill General Surgery Darrel Burgess MD 09/04/2019 Refill General Surgery Darrel Burgess MD 08/24/2019 - Hospital Encounter General Surgery Darrel Burgess Typ e 2 diabetes mellitus with diabetic polyneuropathy, without long-term current use of insulin (HCC) (Primary Dx); 09/04/2019 MD Francisco Attention to il eostomy (HCC); CKD (chronic ki dney disease) stage 4, GFR 15-29 ml/min (HCC); Essential hyper tension; SLE (systemic l upus erythematosus related syndrome) ([facility]); Rheumatoid arth ritis involving multiple sites with positive rheumatoid factor (HCC) after 08/30/2019 Surgical History Surgery Date Site/Laterality Comments BOWEL RESECTION 08/29/2012 - 08/28/2013 COLOSTOMY HYSTERECTOMY CYST REMOVAL uterine TOTAL KNEE ARTHROPLASTY Right DILATION AND CURETTAGE OF miscar riage UTERUS COLONOSCOPY 06/14/2019 N/A Procedure: COLON OSCOPY via Ostomy and r ectum; Surgeon: Darrel Burgess MD; Lo cation: [facility]; Service: Colon and Rectal Surgery; Laterality: N/A ; RESECTION, COLON, 07/02/2019 Abdomen/N/A Procedure: 1. PROCTOSCOPY LAPAROSCOPIC, 2. ROBOTIC- ASS ISTED ROBOT-ASSISTED LAPAROSCOPIC BLAISE IS OF ADHESIONS 3.OMAR OTIC ASSISTED LAPAROS COPIC COLOSTOMY REVERS AL 4. DIVERTING ILEOST FLORENCIA; Surgeon: Darrel Burgess MD; Lo cation: [facility]; Se rvice: Colon and Rectal Surgery; Laterality: N/A ; CLOSURE, ILEOSTOMY, 08/25/2019 Abdomen/N/A Procedure: I leostomy LAPAROSCOPIC reversal; Surge on: Darrel Burgess MD; Location: [facility] OR; Service: Co zafar and Rectal Surgery; Laterality: N/A; Medical History Medical History Date Comments Hypertension Diabetes mellitus (HCC) Chronic kidney disease Anemia Anesthesia NHAP / NFHAP / do es not exercise , denied SOB or CP / no prob with stairs / removable dental b ridge upper and lower Lupus (HCC) AVN (avascular necrosis of bone) (HCC) Arthritis rheumatoid arthritis Bowel obstruction (HCC) Insomnia Type 2 diabetes mellitus (HCC) Family History Medical History Relation Name Comments Kidney cancer Father Uterine cancer Mother Relation Name Status Comments Father Mother Social History Tobacco Use Types Packs/Day Years Used Date Never Smoker Smokeless Tobacco: Never Used Alcohol Use Drinks/Week oz/Week Comments No Sex Assigned at Date Recorded Not on file Last Filed Vital Signs Vital Sign Reading Time Taken Comments Blood Pressure 148/84 09/18/2019 12:05 PM [employer] Pulse 100 09/18/2019 12:05 PM [employer] Temperature 36.6 C (97.9 F) 09/18/2019 12:05 PM [employer] Respiratory Rate 18 09/18/2019 12:05 PM [employer] Oxygen Saturation 97% 09/18/2019 12:05 PM [employer] Inhaled Oxygen Concentration - - Weight 77.1 kg (169 lb 15.6 oz) 09/12/2019 6:43 AM [employer] Height 157.5 cm (5' 2") 09/09/2019 11:07 AM [employer] Body Mass Index 31.09 09/09/2019 11:07 AM [employer] Plan of Treatment Health Maintenance Due Date Last Done Comments DIABETES: RETINAL EYE EXAM 1980 DIABETIC FOOT EXAM 1980 COVID-19 VACCINE (#1) 1986 CERVICAL CANCER SCREENING 1991 INFLUENZA VACCINE 03/29/2020 06/16/2013 BREAST CANCER SCREENING 2020 COLONOSCOPY SCREENING 2020 SHINGLES VACCINES (#1) 2020 Implants Implanted Type Area Manager Fine Device Shelf Model / Identifier Expiration Serial / Date Lot Catheter Cv Powerline Dlmn Al 6fr - [id number] Surgical N/A: N/A BAR D ACCESS [id number] / Implanted: 07/12/2019 at [facility] [address] (Quantity not on file) Implan ts; SYSTEMS / Expanders; Extenders; Surgical Wires Procedures Procedure Name Priority Date/Time Associated Comments Diagnosis IR TUNNELED CENTRAL Routine 09/18/2019 12:13 Resu lts for this LINE REMOVAL PM [employer] procedure are i n the results section. ESTIMATED GFR Routine 09/15/2019 5:39 Results fo r this AM [employer] procedure are i n the results section. PHOSPHORUS LEVEL Routine 09/15/2019 5:39 Results for this AM [employer] procedure are i n the results section. MAGNESIUM LEVEL Routine 09/15/2019 5:39 Results for this AM [employer] procedure are i n the results section. BASIC METABOLIC PANEL Routine 09/15/2019 5:39 Re sults for this AM [employer] procedure are i n the results section. HC COMPLETE BLD COUNT Routine 09/15/2019 5:39 Re sults for this W/AUTO DIFF AM [employer] procedure are i n the results section. XR ABDOMEN 1 VW STAT 09/14/2019 11:47 Results for this PORTABLE AM [employer] procedure are i n the results section. ESTIMATED GFR Routine 09/14/2019 10:55 Results fo r this AM [employer] procedure are i n the results section. PHOSPHORUS LEVEL Routine 09/14/2019 10:55 Results for this AM [employer] procedure are i n the results section. MAGNESIUM LEVEL Routine 09/14/2019 10:55 Results for this AM [employer] procedure are i n the results section. BASIC METABOLIC PANEL Routine 09/14/2019 10:55 Re sults for this AM [employer] procedure are i n the results section. HC COMPLETE BLD COUNT Routine 09/14/2019 10:55 Re sults for this W/AUTO DIFF AM [employer] procedure are i n the results section. UNMONITORED VIDEO-EEG STAT 09/13/2019 9:03 Re sults for this 26 HRS 1 MIN-36HRS PM [employer] procedure are in the results section. COMPREHENSIVE METABOLIC Routine 09/13/2019 12:18 Results for this PANEL AM [employer] procedure are i n the results section. ESTIMATED GFR Routine 09/13/2019 12:18 Results fo r this AM [employer] procedure are i n the results section. PHOSPHORUS LEVEL Routine 09/13/2019 12:18 Results for this AM [employer] procedure are i n the results section. MAGNESIUM LEVEL Routine 09/13/2019 12:18 Results for this AM [employer] procedure are i n the results section. HC COMPLETE BLD COUNT Routine 09/13/2019 12:18 Re sults for this W/AUTO DIFF AM [employer] procedure are i n the results section. ECG 12-LEAD STAT 09/13/2019 12:17 Results for this AM [employer] procedure are i n the results section. EEG SETUP STAT 09/13/2019 12:13 Results for this AM [employer] procedure are i n the results section. POC GLUCOSE Routine 09/12/2019 11:54 Results for this PM [employer] procedure are i n the results section. POC GLUCOSE Routine 09/12/2019 4:49 Results for this PM [employer] procedure are i n the results section. POC GLUCOSE Routine 09/12/2019 10:55 Results for this AM [employer] procedure are i n the results section. EEG (ROUTINE) STAT 09/12/2019 10:07 Results fo r this AM [employer] procedure are i n the results section. POC GLUCOSE Routine 09/12/2019 7:33 Results for this AM [employer] procedure are i n the results section. T4, FREE Routine 09/12/2019 7:23 Results for this AM [employer] procedure are i n the results section. THYROID STIMULATING Routine 09/12/2019 7:23 Resu lts for this HORMONE AM [employer] procedure are i n the results section. ESTIMATED GFR Routine 09/12/2019 4:00 Results fo r this AM [employer] procedure are i n the results section. HC COMPLETE BLD COUNT Routine 09/12/2019 4:00 Re sults for this W/AUTO DIFF AM [employer] procedure are i n the results section. PHOSPHORUS LEVEL Routine 09/12/2019 4:00 Results for this AM [employer] procedure are i n the results section. MAGNESIUM LEVEL Routine 09/12/2019 4:00 Results for this AM [employer] procedure are i n the results section. COMPREHENSIVE METABOLIC Routine 09/12/2019 4:00 Results for this PANEL AM [employer] procedure are i n the results section. POC GLUCOSE Routine 09/11/2019 9:04 Results for this PM [employer] procedure are i n the results section. MRI BRAIN VENOGRAM Routine 09/11/2019 6:26 Resul ts for this PM [employer] procedure are i n the results section. MRI BRAIN W WO CONTRAST Routine 09/11/2019 6:25 Results for this PM [employer] procedure are i n the results section. MRA HEAD WO CONTRAST Routine 09/11/2019 6:25 Res ults for this PM [employer] procedure are i n the results section. MRA NECK WO CONTRAST Routine 09/11/2019 6:25 Res ults for this PM [employer] procedure are i n the results section. C-REACTIVE PROTEIN Routine 09/11/2019 2:28 Resul ts for this PM [employer] procedure are i n the results section. SEDIMENTATION RATE Routine 09/11/2019 2:28 Resul ts for this PM [employer] procedure are i n the results section. KEPPRA (LEVETIRACETAM) Routine 09/11/2019 2:28 R esults for this LEVEL PM [employer] procedure are i n the results section. CT HEAD WO CONTRAST STAT 09/11/2019 1:29 Resu lts for this PM [employer] procedure are i n the results section. POC GLUCOSE Routine 09/11/2019 12:01 Results for this PM [employer] procedure are i n the results section. POC GLUCOSE Routine 09/11/2019 7:16 Results for this AM [employer] procedure are i n the results section. ESTIMATED GFR Routine 09/11/2019 5:45 Results fo r this AM [employer] procedure are i n the results section. HC COMPLETE BLD COUNT Routine 09/11/2019 5:45 Re sults for this W/AUTO DIFF AM [employer] procedure are i n the results section. PHOSPHORUS LEVEL Routine 09/11/2019 5:45 Results for this AM [employer] procedure are i n the results section. MAGNESIUM LEVEL Routine 09/11/2019 5:45 Results for this AM [employer] procedure are i n the results section. COMPREHENSIVE METABOLIC Routine 09/11/2019 5:45 Results for this PANEL AM [employer] procedure are i n the results section. POC GLUCOSE Routine 09/10/2019 9:03 Results for this PM [employer] procedure are i n the results section. POC GLUCOSE Routine 09/10/2019 7:50 Results for this AM [employer] procedure are i n the results section. MANUAL DIFFERENTIAL Routine 09/10/2019 3:09 Resu lts for this AM [employer] procedure are i n the results section. ESTIMATED GFR Routine 09/10/2019 3:09 Results fo r this AM [employer] procedure are i n the results section. CBC WITH PLATELET AND Routine 09/10/2019 3:09 Re sults for this DIFFERENTIAL AM [employer] procedure are i n the results section. PHOSPHORUS LEVEL Routine 09/10/2019 3:09 Results for this AM [employer] procedure are i n the results section. MAGNESIUM LEVEL Routine 09/10/2019 3:09 Results for this AM [employer] procedure are i n the results section. COMPREHENSIVE METABOLIC Routine 09/10/2019 3:09 Results for this PANEL AM [employer] procedure are i n the results section. POC GLUCOSE Routine 09/10/2019 1:23 Results for this AM [employer] procedure are i n the results section. ESTIMATED GFR Routine 09/09/2019 9:15 Results fo r this PM [employer] procedure are i n the results section. IONIZED CALCIUM Routine 09/09/2019 9:15 Results for this PM [employer] procedure are i n the results section. LACTIC ACID LEVEL Routine 09/09/2019 9:15 Result s for this PM [employer] procedure are i n the results section. PHOSPHORUS LEVEL Routine 09/09/2019 9:15 Results for this PM [employer] procedure are i n the results section. MAGNESIUM LEVEL Routine 09/09/2019 9:15 Results for this PM [employer] procedure are i n the results section. BASIC METABOLIC PANEL Routine 09/09/2019 9:15 Re sults for this PM [employer] procedure are i n the results section. POC GLUCOSE Routine 09/09/2019 8:54 Results for this PM [employer] procedure are i n the results section. ECG 12-LEAD STAT 09/09/2019 6:02 Results for this PM [employer] procedure are i n the results section. POC GLUCOSE Routine 09/09/2019 5:56 Results for this PM [employer] procedure are i n the results section. ECG 12-LEAD Routine 09/09/2019 5:44 Results for this AM [employer] procedure are i n the results section. LACTIC ACID LEVEL STAT 09/09/2019 5:30 Result s for this AM [employer] procedure are i n the results section. MANUAL DIFFERENTIAL STAT 09/09/2019 5:30 Resu lts for this AM [employer] procedure are i n the results section. ESTIMATED GFR STAT 09/09/2019 5:30 Results fo r this AM [employer] procedure are i n the results section. BASIC METABOLIC PANEL STAT 09/09/2019 5:30 Re sults for this AM [employer] procedure are i n the results section. CBC WITH PLATELET AND STAT 09/09/2019 5:30 Re sults for this DIFFERENTIAL AM [employer] procedure are i n the results section. ECG 12-LEAD Routine 09/09/2019 4:56 Results for this AM [employer] procedure are i n the results section. ECG ED PRELIMINARY Routine 09/09/2019 4:52 Resul ts for this INTERPRETATION AM [employer] procedure are in the results section. ECG ED PRELIMINARY Routine 09/09/2019 4:52 Resul ts for this INTERPRETATION AM [employer] procedure are in the results section. IL CRITICAL CARE, E/M Routine 09/09/2019 4:52 Re sults for this 30-74 MINUTES AM [employer] procedure are in the results section. CT ABD/PELVIC EXTERNAL Routine 09/08/2019 9:26 R esults for this STUDY PM [employer] procedure are i n the results section. XR CHEST EXTERNAL STUDY Routine 09/08/2019 7:51 Results for this PM [employer] procedure are i n the results section. HC COMPLETE BLD COUNT Routine 09/04/2019 4:50 Re sults for this W/AUTO DIFF AM [employer] procedure are i n the results section. ESTIMATED GFR Routine 09/04/2019 4:00 Results fo r this AM [employer] procedure are i n the results section. BASIC METABOLIC PANEL Routine 09/04/2019 4:00 Re sults for this AM [employer] procedure are i n the results section. POC GLUCOSE Routine 09/03/2019 8:01 Results for this PM [employer] procedure are i n the results section. POC GLUCOSE Routine 09/03/2019 5:50 Results for this PM [employer] procedure are i n the results section. POC GLUCOSE Routine 09/03/2019 12:21 Results for this PM [employer] procedure are i n the results section. POC GLUCOSE Routine 09/03/2019 8:09 Results for this AM [employer] procedure are i n the results section. HC COMPLETE BLD COUNT Routine 09/03/2019 5:30 Re sults for this W/AUTO DIFF AM [employer] procedure are i n the results section. ESTIMATED GFR Routine 09/03/2019 4:00 Results fo r this AM [employer] procedure are i n the results section. IONIZED CALCIUM Routine 09/03/2019 4:00 Results for this AM [employer] procedure are i n the results section. PHOSPHORUS LEVEL Routine 09/03/2019 4:00 Results for this AM [employer] procedure are i n the results section. MAGNESIUM LEVEL Routine 09/03/2019 4:00 Results for this AM [employer] procedure are i n the results section. BASIC METABOLIC PANEL Routine 09/03/2019 4:00 Re sults for this AM [employer] procedure are i n the results section. VANCOMYCIN LEVEL, Routine 09/03/2019 4:00 Result s for this TROUGH AM [employer] procedure are i n the results section. POC GLUCOSE Routine 09/02/2019 8:26 Results for this PM [employer] procedure are i n the results section. POC GLUCOSE Routine 09/02/2019 5:21 Results for this PM [employer] procedure are i n the results section. POC GLUCOSE Routine 09/02/2019 12:48 Results for this PM [employer] procedure are i n the results section. POC GLUCOSE Routine 09/02/2019 8:24 Results for this AM [employer] procedure are i n the results section. SMEAR REVIEW Routine 09/02/2019 5:00 Results for this AM [employer] procedure are i n the results section. HC COMPLETE BLD COUNT Routine 09/02/2019 5:00 Re sults for this W/AUTO DIFF AM [employer] procedure are i n the results section. ESTIMATED GFR Routine 09/02/2019 4:00 Results fo r this AM [employer] procedure are i n the results section. PHOSPHORUS LEVEL Routine 09/02/2019 4:00 Results for this AM [employer] procedure are i n the results section. MAGNESIUM LEVEL Routine 09/02/2019 4:00 Results for this AM [employer] procedure are i n the results section. COMPREHENSIVE METABOLIC Routine 09/02/2019 4:00 Results for this PANEL AM [employer] procedure are i n the results section. POC GLUCOSE Routine 09/01/2019 8:22 Results for this PM [employer] procedure are i n the results section. POC GLUCOSE Routine 09/01/2019 4:49 Results for this PM [employer] procedure are i n the results section. CT ABDOMEN PELVIS WO STAT 09/01/2019 4:42 Res ults for this CONTRAST PM [employer] procedure are i n the results section. ECG 12-LEAD STAT 09/01/2019 4:00 Results for this PM [employer] procedure are i n the results section. LIPASE LEVEL STAT 09/01/2019 3:50 Results for this PM [employer] procedure are i n the results section. ESTIMATED GFR STAT 09/01/2019 3:50 Results fo r this PM [employer] procedure are i n the results section. LACTIC ACID LEVEL STAT 09/01/2019 3:50 Result s for this PM [employer] procedure are i n the results section. PHOSPHORUS LEVEL STAT 09/01/2019 3:50 Results for this PM [employer] procedure are i n the results section. MAGNESIUM LEVEL STAT 09/01/2019 3:50 Results for this PM [employer] procedure are i n the results section. IONIZED CALCIUM STAT 09/01/2019 3:50 Results for this PM [employer] procedure are i n the results section. COMPREHENSIVE METABOLIC STAT 09/01/2019 3:50 Results for this PANEL PM [employer] procedure are i n the results section. HC COMPLETE BLD COUNT STAT 09/01/2019 3:50 Re sults for this W/AUTO DIFF PM [employer] procedure are i n the results section. ENTERIC VIRAL PANEL Routine 09/01/2019 3:45 Resu lts for this PM [employer] procedure are i n the results section. ENTERIC BACTERIAL PANEL Routine 09/01/2019 3:45 Results for this PM [employer] procedure are i n the results section. POC GLUCOSE Routine 09/01/2019 3:37 Results for this PM [employer] procedure are i n the results section. XR CHEST 1 VW PORTABLE STAT 09/01/2019 3:27 R esults for this PM [employer] procedure are i n the results section. POC GLUCOSE Routine 09/01/2019 11:42 Results for this AM [employer] procedure are i n the results section. POC GLUCOSE Routine 09/01/2019 7:54 Results for this AM [employer] procedure are i n the results section. HC COMPLETE BLD COUNT Routine 09/01/2019 4:25 Re sults for this W/AUTO DIFF AM [employer] procedure are i n the results section. ESTIMATED GFR Routine 09/01/2019 4:00 Results fo r this AM [employer] procedure are i n the results section. PHOSPHORUS LEVEL Routine 09/01/2019 4:00 Results for this AM [employer] procedure are i n the results section. MAGNESIUM LEVEL Routine 09/01/2019 4:00 Results for this AM [employer] procedure are i n the results section. COMPREHENSIVE METABOLIC Routine 09/01/2019 4:00 Results for this PANEL AM [employer] procedure are i n the results section. POC GLUCOSE Routine 08/31/2019 8:15 Results for this PM [employer] procedure are i n the results section. BLOOD CULTURE, AEROBIC Routine 08/31/2019 6:30 R esults for this & ANAEROBIC PM [employer] procedure are i n the results section. BLOOD CULTURE, AEROBIC Routine 08/31/2019 6:20 R esults for this & ANAEROBIC PM [employer] procedure are i n the results section. POC GLUCOSE Routine 08/31/2019 5:15 Results for this PM [employer] procedure are i n the results section. POC GLUCOSE Routine 08/31/2019 3:55 Results for this PM [employer] procedure are i n the results section. HC COMPLETE BLD COUNT STAT 08/31/2019 3:06 Re sults for this W/AUTO DIFF PM [employer] procedure are i n the results section. POC GLUCOSE Routine 08/31/2019 12:05 Results for this PM [employer] procedure are i n the results section. POC GLUCOSE Routine 08/31/2019 8:05 Results for this AM [employer] procedure are i n the results section. POC GLUCOSE Routine 08/31/2019 4:08 Results for this AM CIRCULATION MAN procedure are i n the results section. URINE CULTURE STAT 08/31/2019 2:28 Results fo r this AM CIRCULATION MAN procedure are i n the results section. GRAM STAIN STAT 08/31/2019 2:28 Results for this AM CIRCULATION MAN procedure are i n the results section. PREPARE RBC STAT 08/31/2019 1:45 Results for this AM CIRCULATION MAN procedure are i n the results section. POC GLUCOSE Routine 08/31/2019 1:45 Results for this AM CIRCULATION MAN procedure are i n the results section. ANTIBODY IDENTIFICATION STAT 08/31/2019 1:45 Results for this AM [facility]CULATION MAN procedure are i n the results section. IONIZED CALCIUM STAT 08/31/2019 1:45 Results for this AM CIRCULATION MAN procedure are i n the results section. TYPE AND SCREEN STAT 08/31/2019 1:45 Results for this AM [facility]CULATION MAN procedure are i n the results section. ESTIMATED GFR STAT 08/31/2019 1:45 Results fo r this AM [facility]CULATION MAN procedure are i n the results section. PARTIAL THROMBOPLASTIN STAT 08/31/2019 1:45 R esults for this TIME (PTT) AM [facility]CULATION MAN procedure are i n the results section. PROTHROMBIN TIME WITH STAT 08/31/2019 1:45 Re sults for this INR AM [facility]CULATION MAN procedure are i n the results section. PHOSPHORUS LEVEL STAT 08/31/2019 1:45 Results for this AM CIRCULATION MAN procedure are i n the results section. MAGNESIUM LEVEL STAT 08/31/2019 1:45 Results for this AM [facility]CULATION MAN procedure are i n the results section. LACTIC ACID LEVEL STAT 08/31/2019 1:45 Result s for this AM [facility]CULATION MAN procedure are i n the results section. FIBRINOGEN STAT 08/31/2019 1:45 Results for this AM [facility]CULATION MAN procedure are i n the results section. COMPREHENSIVE METABOLIC STAT 08/31/2019 1:45 Results for this PANEL AM [facility]ATION MAN procedure are i n the results section. HC COMPLETE BLD COUNT STAT 08/31/2019 1:45 Re sults for this W/AUTO DIFF AM [facility]ATION MAN procedure are i n the results section. KEPPRA (LEVETIRACETAM) Routine 08/31/2019 1:45 R esults for this LEVEL AM [facility]ATION MAN procedure are i n the results section. URINALYSIS SCREEN AND STAT 08/31/2019 1:20 Re sults for this MICROSCOPY, WITH REFLEX AM CIRCULATION MAN proc edure are in TO CULTURE the results section. POC GLUCOSE Routine 08/30/2019 8:58 Results for this PM [facility]CULATION MAN procedure are i n the results section. ESTIMATED GFR Routine 08/30/2019 6:13 Results fo r this PM [facility]ATION MAN procedure are i n the results section. MAGNESIUM LEVEL Routine 08/30/2019 6:13 Results for this PM [facility]CULATION MAN procedure are i n the results section. BASIC METABOLIC PANEL Routine 08/30/2019 6:13 Re sults for this PM [facility]CULATION MAN procedure are i n the results section. HEMOGLOBIN & HEMATOCRIT Routine 08/30/2019 6:13 Results for this PM [facility]ATION MAN procedure are i n the results section. POC GLUCOSE Routine 08/30/2019 4:54 Results for this PM [facility]ATION MAN procedure are i n the results section. POC GLUCOSE Routine 08/30/2019 10:43 Results for this AM [facility]CULATION MAN procedure are i n the results section. CT ABDOMEN PELVIS WO STAT 08/30/2019 9:29 Res ults for this CONTRAST AM [facility]CULATION MAN procedure are i n the results section. POC GLUCOSE Routine 08/30/2019 7:27 Results for this AM CIRCULATION MAN procedure are i n the results section. ESTIMATED GFR Routine 08/30/2019 4:00 Results fo r this AM [employer]CULATION MAN procedure are i n the results section. PHOSPHORUS LEVEL Routine 08/30/2019 4:00 Results for this AM CIRCULATION MAN procedure are i n the results section. MAGNESIUM LEVEL Routine 08/30/2019 4:00 Results for this AM CIRCULATION MAN procedure are i n the results section. COMPREHENSIVE METABOLIC Routine 08/30/2019 4:00 Results for this PANEL AM [facility]ATION MAN procedure are i n the results section. HC COMPLETE BLD COUNT Routine 08/30/2019 4:00 Re sults for this W/AUTO DIFF AM [facility]ATION MAN procedure are i n the results section. after 08/30/2019 Results IR Tunneled Central Line Removal (09/18/2019 12:13 PM CIRCULATION MAN) Specimen Narrative Performed At Performing Radiologist JEANNIE Taylor MD Assistants None Anesthesia Type None. Pre Procedure Diagnosis 49-year-old female here for tunneled josé tral venous catheter removal. Post Procedure Diagnosis Status post right chest tunneled central venous catheter removal. Procedure Right chest tunneled central venous cath eter removal. Technique Written informed consent was obtained prior to the pro cedure. The procedure was performed at the bedside in the PACU. Th e right chest and tunneled central venous catheter were sterilely prepar ed and draped in the routine manner. The suture securing the tunneled central venous catheter were then cut. Using gentle traction, the cuff of the indwelling tunneled central venous cat heter was freed, and this catheter was removed. Hemostasis was achieved with manual compression. The patient tolerated the procedure well. Total Fluoroscopic Time No fluoroscopy was used Complications None Specimens Removed As described above. Estimated Blood Loss Less then 1 mL Blood/Blood Products Administered None Grafts/Implants None Impression: Successful removal of the right chest tunneled central venous catheter, as described above. [id number] Procedure Note Interface, Radiology Results Incoming - 09/18/2019 1:28 PM [facility]ATION MAN Performing Radiologist David Taylor MD Assistants None Anesthesia Type None. Pre Procedure Diagnosis 49-year-old female here for tunneled josé tral venous catheter removal. Post Procedure Diagnosis Status post right chest tunneled central venous catheter removal. Procedure Right chest tunneled central venous cath eter removal. Technique Written informed consent was obtained pr ior to the procedure. The procedure was performed at the bedside in the PACU. The right chest and tunneled central venous catheter were sterilely prepared and draped in the routine manner. The suture securing the tunneled central venous catheter were th en cut. Using gentle traction, the cuff of the indwelling tunneled central venous catheter was freed, and this catheter was removed. Hemostasis was achieved with manual compression. The patient tolerated the procedure well. Total Fluoroscopic Time No fluoroscopy was used Complications None Specimens Removed As described above. Estimated Blood Loss Less then 1 mL Blood/Blood Products Administered None Grafts/Implants None Impression: Successful removal of the right chest tu nneled central venous catheter, as described above. [id number] Performing Organization Address [facility] Phon e Number [facility] [address] [place] [id number] Estimated GFR (09/15/2019 5:39 AM CIRCULATION MAN)Only the most recent of16 resultswithin the time period is included. Estimated GFR 65 mL/min/1.73 [facility] Comment: m2 HOSPITAL Catergory Units Interpretation G1 >=90 Normal or high G2 60-89 Mildly decreased G3a 45-59 Mildly to moderately decreas ed G3b 30-44 Moderately to severely decre ased G4 15-29 Severely decreased G5 <15 Kidney failure The eGFR was calculated using the Chronic Kidney Disea se Epidemiology Collaboration (CKD-EPI) equation. Interpretation is based on recommendations of the National Kidney Foundation-Kidney Disease Outcomes Diego lity Initiative (NKF-KDOQI) published in 2014. Specimen Plasma specimen Performing Organization Address City/State/ZIP Code Phon e Number [facility] DEPARTMENT OF PATHOLOGY AND [address] [place] [phone] [facility] [address] [address] CBC with platelet and differential (09/15/2019 5:39 AM CIRCULATION MAN)Only the most recent of15 resultswithin the time period is included. WBC 9.73 4.50 - 11.00 [facility] k/uL HOSPITAL RBC 3.19 (L) 4.20 - 5.50 [facility] m/uL HOSPITAL HGB 8.6 (L) 12.0 - 16.0 [facility] g/dL [facility] HCT 27.6 (L) 37.0 - 47.0 % [facility] MCV 86.5 82.0 - 100.0 [facility] MCH 27.0 27.0 - 34.0 pg [facility] MCHC 31.2 31.0 - 37.0 [facility] RDW - SD 50.0 37.0 - 55.0 fL [facility] MPV 9.3 8.8 - 13.2 fL [facility] Platelet count 360 150 - 400 k/uL [facility] Nucleated RBC 0.00 /100 WBC [facility] Neutrophils 69.3 (H) 39.0 - 69.0 % [facility] Lymphocytes 20.1 (L) 25.0 - 45.0 % [facility] Monocytes 8.7 0.0 - 10.0 % [facility] Eosinophils 0.8 0.0 - 5.0 % [facility] Basophils 0.6 0.0 - 1.0 % [facility] Immature granulocytes 0.5Comment: 0.0 - 1.0 % [facility] "Immature HOSPITAL granulocytes" (promyelocytes , myelocytes, metamyelocytes ) Specimen Blood Performing Organization Address City/[facility] Phon e Number [facility] DEPARTMENT OF PATHOLOGY AND [address] [place] [address] [phone] [address] Phosphorus level (09/15/2019 5:39 AM CIRCULATION MAN)Only the most recent of13 results within the time period is included. Pathologist Sig nature Phosphorus 3.2 2.4 - 4.5 mg/dL [facility] L Specimen Plasma specimen Performing Organization Address City/[facility] Phon e Number [facility] DEPARTMENT OF PATHOLOGY AND [address] [place] [address] [phone] [address] Magnesium level (09/15/2019 5:39 AM CIRCULATION MAN)Only the most recent of14 resultswithin the time period is included. Pathologist Sig replaced by [facility] Magnesium 1.7 1.6 - 2.6 mg/dL [facility] L Specimen Plasma specimen Performing Organization Address [facility] Phon e Number [facility] DEPARTMENT OF PATHOLOGY AND [address] [place] [phone] Basic metabolic panel (09/15/2019 5:39 AM CIRCULATION MAN)Only the most recent of7 results within the time period is included. Pathologist Sig nature Sodium 140 135 - 148 mEq/L [facility] Potassium 3.4 (L) 3.5 - 5.0 mEq/L [facility] Chloride 101 98 - 112 mEq/L [facility] CO2 23 (L) 24 - 31 mEq/L [facility] Anion gap 16@ANIO (H) 7 - 15 mEq/L [facility] BUN 8 6 - 20 mg/dL [facility] Creatinine 1.14 (H) 0.50 - 0.90 mg/dL [facility] Glucose 64 (L) 65 - 99 mg/dL [facility] Calcium 8.5 8.3 - 10.2 mg/dL [facility] Specimen Plasma specimen Performing Organization Address [facility] Phon e Number [facility] DEPARTMENT OF PATHOLOGY AND [address] [place] [address] [address] XR Abdomen 1 Vw Portable (09/14/2019 11:47 AM CIRCULATION MAN) Specimen Narrative Performed At EXAMINATION: XR ABDOMEN 1 VW PORTABLE [facility] CLINICAL HISTORY: Abd pain unspecified, Severe abd ominal pain and distension COMPARISON: August 29, 2019 abdomen FINDINGS: Persistent air distention of small bowel loops in left abdomen. Some scattered air in the colon. Small bowel distention slightly increase d over the interval No gross free air. Sclerotic changes in each femoral head s uspicious for avascular necrosis IMPRESSION: Slight increasing small bowel distention as compared to 29 August 2019. Some air noted within the colon Ongoing partial small bowel obstruction may be present [id number] Procedure Note Hm Interface, Radiology Results Incoming - 09/14/2019 12:13 PM CIRCULATION MAN EXAMINATION: XR ABDOMEN 1 VW PORTABLE CLINICAL HISTORY: Abd pain unspecified , Severe abdominal pain and distension COMPARISON: August 29, 2019 abdomen FINDINGS: Persistent air distention of small bowel loops in left abdomen. Some scattered air in the colon. Small bowel distention slightly increase d over the interval No gross free air. Sclerotic changes in each femoral head s uspicious for avascular necrosis IMPRESSION: Slight increasing small bowel distention as compared to 29 August 2019. Some air noted within the colon Ongoing partial small bowel obstruction may be present [id number] Performing Organization Address City/State/ZIP Code Phon e Number [facility] [address] [place] [address] Continuous EEG monitoring (09/13/2019 9:03 PM CIRCULATION MAN) Narrative Performed At This result has an attachment that is no t available. CONTINUOUS VIDEO-EEG MONITORING REPORT Patient Name: Babs Delgado Date of : 1970 Gender: female Initial Study Start date: 09/12/2019 Initial Study Start Time: 10:11 Current Study Start Date: 09/13/2019 Current Study Start Time: 00:00 Current Study End Date: 09/13/2019 Current Study End Time: 17:46 Indication Seizures Technical Summary Technique:Modified international 10/20 system of EEG e lectrode placement was used. Visual Analysis of EEG-Video Monitoring:This electroen cephalogram was recorded simultaneously with video throughout the toring. The EEG was visually inspected and analyzed for characterization o f the background activity in all awake and sleep states, abnormal focal and generalized features, and intraictal and ictal epileptiform activi ty. Electrical seizure activity was correlated with the patients clin ical activity recorded on video and video captured clinical events w ere correlated with simultaneously recorded EEG activity. Computer Analysis of EEG Waveforms:The EEG underwent c ontinuous computerized digital spectral analysis, which consiste d of real time detection of electrical events that could be considere d epileptiform. All electrographic events identified by the detection prog marly were visually inspected in order to assess the waveform characterist ics and significance of these electrographic events. All intraictal and ict al epileptiform events are described further below with additional det ails of the visual analysis of the EEG. Events detected by computer cherelle sis that were not determined by visual analysis to be epileptiform were considered to be myogenic, biologic, mechanical, or electrical artifact in origin. Only computer detected events that have been verified by dave bernalal inspection to be interictal or ictal epileptiform discharges are rep orted below and considered in the final report of this monitoring stud y. Findings Awake Recordings: The occipital dominant rhythm is 9 H z.18-22 Hz activity was present in all regions. Sleep Recording: No epileptiform activity was record ed. Hyperventilation: No abnormality elicited. Photic Stimulation: Was not performed. Impression: The background activity was within the nor mal range of variation. No epileptiform activity was recorded. ICD-10 Code: R56.9 Comprehensive metabolic panel (09/13/2019 12:18 AM CIRCULATION MAN)Only the most recent of9 resultswithin the time period is included. Sodium 139 135 - 148 [facility] mEq/L [facility] Potassium 3.5 3.5 - 5.0 [facility] mEq/L [facility] Chloride 104 98 - 112 mEq/L [facility] CO2 23 (L) 24 - 31 mEq/L [facility] Anion gap 12@ANIO 7 - 15 mEq/L [facility] BUN 8 6 - 20 mg/dL [facility] Creatinine 1.27 (H) 0.50 - 0.90 [facility] mg/dL [facility] Glucose 100 (H) 65 - 99 mg/dL [facility] Calcium 8.3 8.3 - 10.2 [facility] mg/dL [facility] Protein 6.6 6.3 - 8.3 g/dL [facility] Comment: HOSPITAL Xubulrg8628.6-7.0 g/dL 1 njeq6557.4-7.6 g/dL 7 months-8zcon066.1-7.3 g/dL 1-2 typde635.6-7.5 g/dL >3 mexim558.0-8.0 g/dL 18-0488922.3-8.3 g/dL Albumin 2.4 (L) 3.5 - 5.0 g/dL [facility] A/G ratio 0.6 (L) 0.7 - 3.8 [facility] Alkaline phosphatase 87 35 - 104 U/L [facility] AST 17 10 - 35 U/L [facility] ALT 8 5 - 50 U/L [facility] Total bilirubin 0.3 0.0 - 1.2 [facility] mg/dL [facility] Specimen Plasma specimen Performing Organization Address City/State/ZIP Code Phon e Number [facility] DEPARTMENT OF PATHOLOGY AND [address] [place] [phone] GENOMIC MEDICINE [facility] [address] [place] [address] ECG 12 lead (09/13/2019 12:17 AM CIRCULATION MAN)Only the most recent of5 resultswithin the time period is included. Pathologist Sig nature Ventricular rate 113 [facility] Atrial rate 113 [facility] IL interval 160 [facility] QRSD interval 92 [facility] QT interval 362 [facility] QTC interval 496 [facility] P axis 1 40 [facility] QRS axis 1 -5 [facility] T wave axis 91 [facility] EKG impression Sinus tachycardia-Left [facility] ventricular hypertrophy with repolarization abnormality-Abnormal ECG-- Specimen Narrative Performed At This result has an attachment that is no t available. Performing Organization Address [facility] Code Phon e Number [facility] [address] [place] [address] Continuous EEG monitoring (09/13/2019 12:13 AM CIRCULATION MAN) Impressions Performed At This is a normal long-term video-EEG. There are no epileptiform discharges or seizures captured. ICD-10 Code: R569 Narrative Performed At This result has an attachment that is no t available. CONTINUOUS VIDEO-EEG MONITORI NG REPORT Patient Name: Babs Delgado Date of : 1970 Initial Study Start date: 09/12/19 Initial Study Start Time: 1010 Current Study Start Date: 09/12/19 Current Study Start Time: 1010 Current Study End Date: 09/12/19 Current Study End Time: 2358 Indication: 49yo F with seizures referred for continuo us video-EEG monitoring for further evaluation and treatment of her seizures Relevant Medications: LEV 1000 q12h Technical Summary Technique:Modified international 10/20 system of EEG e lectrode placement was used. Visual Analysis of EEG-Video Monitoring:This electroen cephalogram was recorded simultaneously with video throughout the toring. The EEG was visually inspected and analyzed for characterization o f the background activity in all awake and sleep states, abnormal focal and generalized features, and intraictal and ictal epileptiform activi ty. Electrical seizure activity was correlated with the patients clin ical activity recorded on video and video captured clinical events w ere correlated with simultaneously recorded EEG activity. Computer Analysis of EEG Waveforms:The EEG underwent c ontinuous computerized digital spectral analysis, which consiste d of real time detection of electrical events that could be considere d epileptiform. All electrographic events identified by the detection prog marly were visually inspected in order to assess the waveform characterist ics and significance of these electrographic events. All intraictal and ict al epileptiform events are described further below with additional det ails of the visual analysis of the EEG. Events detected by computer cherelle sis that were not determined by visual analysis to be epileptiform were considered to be myogenic, biologic, mechanical, or electrical artifact in origin. Only computer detected events that have been verified by vi sual inspection to be interictal or ictal epileptiform discharges are rep orted below and considered in the final report of this monitoring stud y. Findings Background: The waking background at rest is continuou s, composed of an admixture of largely alpha and beta frequencies, with the expected anterior to posterior voltage and frequency gradient w ith intermixed faster frequencies anteriorly and a symmetric and well -formed posterior dominant alpha rhythm of 9 hertz, that is reactive to eye opening. During stages of drowsiness there is an attenuation an d anterior migration of the PDR. During stages of sleep there is a normal s leep architecture noted with symmetric, synchronous and well-formed vert ex sharp waves, sleep spindles and K-complexes. Interictal: There are no epileptiform discharges or se izures captured. POC glucose (09/12/2019 11:54 PM CIRCULATION MAN)Only the most recent of36 resultswithin the time period is included. Pathologist Sig nature POC glucose 99 65 - 99 mg/dL [facility] Comment: HOSPITAL Geospatial Program Management Officer Name: Emily Dowell Device ID: [id number] Chartable: [facility] Notified RN Specimen Performing Organization Address City/State/ZIP Code Phon e Number [facility] DEPARTMENT OF PATHOLOGY AND [address] [place] [address] GEN[facility] [address] [address] EEG (routine) - Baseline EEG (09/12/2019 10:07 AM CIRCULATION MAN) Narrative Performed At This result has an attachment that is no t available. EEG RECORDING AWAKE & ASLEEP - Baseline for Bedside Date of Service:09/12/19 Awake Recordings: The occipital dominant rhythm is 9 H z.18-22 Hz activity was present in all regions. Sleep Recording: No epileptiform activity was record ed. Hyperventilation: No abnormality elicited. Photic Stimulation: Was not performed. Impression: The background activity was within the nor mal range of variation. No epileptiform activity was recorded. ICD-10 Code: R56.9 Yassine Moreno MD Fellow, Clinical Neurophysiology I reviewed the entire EEG and agree with the above fin dings. Modesto Mcintyre MD Thyroid stimulating hormone (09/12/2019 7:23 AM CIRCULATION MAN) Pathologist Sig replaced by [facility] TSH 2.58 0.27 - 4.20 uIU/mL [facility] ITAL Specimen Plasma specimen Performing Organization Address [facility] Phon e Number [facility] DEPARTMENT OF PATHOLOGY AND [address] [place] [address] [address] T4, free (09/12/2019 7:23 AM CIRCULATION MAN) Pathologist Sig replaced by [facility] T4, free 1.4 0.9 - 1.7 ng/dL [facility] L Specimen Plasma specimen Performing Organization Address [facility] Phon e Number [facility] DEPARTMENT OF PATHOLOGY AND [address] [place] [address] [address] MRI Brain Venogram (09/11/2019 6:26 PM CIRCULATION MAN) Specimen Narrative Performed At EXAMINATION: MRI BRAIN VENOGRAM [facility] CLINICAL HISTORY: Dural venous sinus t hrombosis suspected COMPARISON: None. FINDINGS: There is severe hypoplasia or stenosis of the left tra nsverse sinus and the sigmoid sinus. The superior sagittal sinus and the righ t transverse sinus are patent. The cortical and deep veins of the brain are patent. 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 No evidence of dural sinus thrombosis. [id number] Procedure Note Hm Interface, Radiology Results Incoming - 09/11/2019 6:41 PM CIRCULATION MAN EXAMINATION: MRI BRAIN VENOGRAM CLINICAL HISTORY: Dural venous sinus th rombosis suspected COMPARISON: None. FINDINGS: There is severe hypoplasia or stenosis o f the left transverse sinus and the sigmoid sinus. The superior sagittal sinus and the righ t transverse sinus are patent. The cortical and deep veins of the brain are patent. IMPRESSION: Severely hypoplastic or stenotic left tr ansverse sinus/sigmoid sinus system. No evidence of dural sinus thrombosis. [id number] Performing Organization Address City/[facility]/ZIP Code Phon e Number JEANNIE [address] [place] [address] MRI Brain W Wo Contrast (09/11/2019 6:25 PM CIRCULATION MAN) Specimen Narrative Performed At This [facility] has an attachment that is no t available. EXAMINATION: MRI BRAIN W WO CONTRAST [facility] COMPARISON: None CLINICAL HISTORY Seizure protocol. TECHNIQUE: Multiplanar multisequence exa mination was performed with and without contrast FINDINGS: There is no diffusion restriction. The ventricular system and subarachnoid spaces are mil dly dilated. There are extensive chronic microvascula r ischemic changes in the centrum semiovale bilaterally. There is no definite acute hemorrhage or gross calcifi cation. There is an enlarged empty sella turcica. There are no abnormal enhancing lesions within the brain parenchyma or the leptomeninges. IMPRESSION: Enlarged empty sella turcica. Extensive chronic microvascular disease in the centrum semiovale bilaterally. Age-related atrophic changes. Note: There is mild bilateral symmetrica l exophthalmos with increased intraorbital fat. Please correlate clinically for thyroid eye disease. [id number] Procedure Note [facility], Radiology Results Incoming - 09/11/2019 8:09 PM CIRCULATION MAN EXAMINATION: MRI BRAIN W WO CONTRAST COMPARISON: None CLINICAL HISTORY Seizure protocol. TECHNIQUE: Multiplanar multisequence exa mination was performed with and without contrast FINDINGS: There is no diffusion restriction. The ventricular system and subarachnoid spaces are mildly dilated. There are extensive chronic microvascula r ischemic changes in the centrum semiovale bilaterally. There is no definite acute hemorrhage or gross calcification. There is an enlarged empty sella turcica . There are no abnormal enhancing lesions within the brain parenchyma or the leptomeninges. IMPRESSION: Enlarged empty sella turcica. Extensive chronic microvascular disease in the centrum semiovale bilaterally. Age-related atrophic changes. Note: There is mild bilateral symmetrica l exophthalmos with increased intraorbital fat. Please correlate clinically for thyroid eye disease. [id number] Performing Organization Address City/State/ZIP Code Phon e Number [facility] [address] [place] [address] MRA Neck Wo Contrast (09/11/2019 6:25 PM CIRCULATION MAN) Specimen Narrative Performed At EXAMINATION: MRA NECK WO CONTRAST [facility] CLINICAL HISTORY: lupus vasculitis COMPARISON: None. TECHNIQUE: [id number] MR angiography was performed without co ntrast and includes 3-D MIP image reconstructions FINDINGS: The distal common carotid arteries and t heir bifurcations are patent. The carotid bifurcations and the proximal internal car otid arteries are patent and show no significant stenosis by NASCET criteria. The vertebral arteries are patent. There is no definite intimal dissection. IMPRESSION: No definite ICA stenosis by NASCET crite parviz. Vertebral artery patency. [id number] Procedure Note Interface, Radiology Results Incoming - 09/11/2019 6:39 PM CIRCULATION MAN EXAMINATION: MRA NECK WO CONTRAST CLINICAL HISTORY: lupus vasculitis COMPARISON: None. TECHNIQUE: [id number] MR angiography was perfor med without contrast and includes 3-D MIP image reconstructions FINDINGS: The distal common carotid arteries and t heir bifurcations are patent. The carotid bifurcations and the proxima l internal carotid arteries are patent and show no significant stenosis by NASCET criteria. The vertebral arteries are patent. There is no definite intimal dissection. IMPRESSION: No definite ICA stenosis by NASCET crite parviz. Vertebral artery patency. [id number] Performing Organization Address [facility] Phon e Number [facility] [address] [place] [address] MRA Head Wo Contrast (09/11/2019 6:25 PM CIRCULATION MAN) Specimen Narrative Performed At EXAMINATION: MRA HEAD WO CONTRAST [facility] CLINICAL HISTORY: lupus vasculitis COMPARISON: None. IMPRESSION: 3-D reconstructions were processed off-l ine. No focal narrowing, aneurysmal dilatation or vascular malformation of the [place] vessels. Both posterior communicating arteries ar e patent. [id number] Procedure Note Interface, Radiology Results Incoming - 09/11/2019 6:46 PM CIRCULATION MAN EXAMINATION: MRA HEAD WO CONTRAST CLINICAL HISTORY: lupus vasculitis COMPARISON: None. IMPRESSION: 3-D reconstructions were processed off-l ine. No focal narrowing, aneurysmal dilatatio n or vascular malformation of the [place] vessels. Both posterior communicating arteries ar e patent. [id number] Performing Organization Address [facility]/ZIP Code Phon e Number [facility] [address] [place] [phone] Keppra (Levetiracetam) level (09/11/2019 2:28 PM CIRCULATION MAN)Only the most recent of2 resultswithin the time period is included. Levetiracetam 67 (H) 12 - 46 ug/mL [facility] Comment: INTERPRETIVE INFORMATION: Keppra (Levetiracetam) Therapeutic Range: 12-46 ug/mL Toxic: Not well Established Pharmacokinetics of levetiracetam are affected by luis l function. Adverse effects may include somnolence, weakness, head ache and vomiting. This levetiracetam (Keppra) immunoassay uses the [employer]creations reagents, which has known cross-reactivity with the dr ankita kennym (Briviact) and may report inaccurate resu lts. Patients transitioning from levetiracetam to brivarace brooks or those who are using both medications should not monitor drug concentrations with the Keas assay. These p atients should be monitored using a validated chromatographic methodology that distinguishes between drugs to determine drug con centrations. Performed by [employer], [address] [place] [id number] [email or web address], Deepak Irene MD, Lab. Director Specimen Serum Performing Organization Address City/[facility]/ZIP Code Phon e Number [facility] [address] [place] [address] [facility] [address] [place] [address] Sedimentation rate (09/11/2019 2:28 PM CIRCULATION MAN) Pathologist Sig nature Sedimentation rate 118 (H) 0 - 20 mm/hr [facility] Specimen Blood Performing Organization Address City/[facility]/ZIP Code Phon e Number [facility] DEPARTMENT OF PATHOLOGY AND [address] [place] [phone] [facility] [address] [address] C-reactive protein (09/11/2019 2:28 PM CIRCULATION MAN) Pathologist Sig nature CRP 0.86 (H) 0.00 - 0.50 mg/dL [facility] Specimen Plasma specimen Performing Organization Address City/[facility]/ZIP Code Phon e Number [facility] DEPARTMENT OF PATHOLOGY AND [facility] [place] [address] [facility] [address] [place] [address] CT Head Wo Contrast (09/11/2019 1:29 PM CIRCULATION MAN) Specimen Narrative Performed At EXAMINATION: CT HEAD WO CONTRAST [facility] CLINICAL HISTORY: seizure COMPARISON: CT brain from August 27, 2019 TECHNIQUE: Noncontrast enhanced images of the brain we re obtained from the skull base to the vertex. Both soft tissue and bon e reconstruction algorithms were performed. CT scans are performed us ing radiation dose reduction techniques. Technical factors are evaluated and adjusted to ensure appropriate moder ation of exposure. Automated dose management technology is applied to adj ust radiation exposure while achieving a diagnostic qu ality image. FINDINGS: Artifacts obscure details. There is no definite evidence of acute intracranial he morrhage or mass, hydrocephalus or midline shift, stroke or thrombus. Th ere is mild nonspecific enlargement of the ventricles and extra ax ial space greater in the anterior region. There are mild w parth matter changes. The sella is partially empty. There is partial opacification throughout the right ma stoid air cells which is increased. Recommend correlation for infectio n or inflammation among other etiologies. IMPRESSION: No acute findings in the brain. Increased opacification of the right mastoid air cells . Recommend correlation for recent or old infection or inflammatio n among other etiologies. [id number] Procedure Note Interface, Radiology Results Incoming - 09/11/2019 1:37 PM CIRCULATION MAN EXAMINATION: CT HEAD WO CONTRAST CLINICAL HISTORY: seizure COMPARISON: CT brain from August 27, 2019 TECHNIQUE: Noncontrast enhanced images o f the brain were obtained from the skull base to the vertex. Both soft tissue and bone reconstruction algorithms were performed. CT scans are performed using radiation dose reduction techniques. Technical factors are evaluated and adjusted to ensure iris ropriate moderation of exposure. Automated dose management technology is applied to adjust radiation exposure while achieving a diagnostic quality image. FINDINGS: Artifacts obscure details. There is no definite evidence of acute i ntracranial hemorrhage or mass, hydrocephalus or midline shift, stroke or thrombus. There is mild nonspecific enlargement of the ventricles and extra axial space greater in the anterior region. There are mild whit e matter changes. The sella is partially empty. There is partial opacification throughou t the right mastoid air cells which is increased. Recommend correlation for infection or inflammation among other etiologies. IMPRESSION: No acute findings in the brain. Increased opacification of the right mas toid air cells. Recommend correlation for recent or old infection or inflammation among other etiologies. [id number] Performing Organization Address [facility] Phon e Number [facility] [address] [place] [phone] Manual differential (09/10/2019 3:09 AM CIRCULATION MAN)Only the most recent of2 results within the time period is included. Manual differential PERFORMED [facility] Neutrophils 80.0 (H) 39.0 - 69.0 % [facility] Lymphocytes 12.0 (L) 25.0 - 45.0 % [facility] Monocytes 8.0 0.0 - 10.0 % [facility] Eosinophils 0.0 0.0 - 5.0 % [facility] Basophils 0.0 0.0 - 1.0 % [facility] Metamyelocytes 0 % [facility] Promyelocytes 0 % [facility] Platelet slide review Increased (A) [facility] Anisocytosis Moderate [facility] Polychromasia Moderate [facility] Ovalocytes Moderate [facility] Jaret cells Moderate (A) [facility] Specimen Performing Organization Address [facility] Phon e Number [facility] DE[facility]MENT OF PATHOLOGY AND [address] [place] [address] [phone] [address] Lactic acid level (09/09/2019 9:15 PM CIRCULATION MAN)Only the most recent of4 results within the time period is included. Pathologist Sig nature Lactic acid 0.9 0.5 - 2.2 mmol/L [facility] Specimen Plasma specimen Performing Organization Address [facility] Phon e Number [facility]MENT OF PATHOLOGY AND [address] [place] [phone] [facility] [address] [address] Ionized calcium (09/09/2019 9:15 PM CIRCULATION MAN)Only the most recent of4 resultswithin the time period is included. Pathologist Sig nature pH 7.44 [facility] Ionized calcium 1.15 1.11 - 1.32 mmol/L [facility] Specimen Plasma specimen Performing Organization Address [facility]/ZIP Code Phon e Number [facility] DEPARTMENT OF PATHOLOGY AND [address] [place], [place] [address] [facility] [address] [place] [address] ECG ED Preliminary Interpretation - Not an Order (09/09/2019 4:52 AM CIRCULATION MAN)Only the most recent of2 resultswithin the time period is included. Narrative Performed At Anshul Olmstead MD 09/10/2019 8:14 PM ECG ED Preliminary Interpretation - Not an Order Performed by: Anshul Olmstead MD Authorized by: Anshul Olmstead MD ECG reviewed by ED Physician in the abse nce of a marketing analytics manager: yes Previous ECG: Previous ECG: Compared to current Comparison ECG info: 09/09/2019 Similarity: Changes noted Interpretation: Interpretation: abnormal Rate: ECG rate: 101 ECG rate assessment: tachycardic Rhythm: Rhythm: sinus tachycardia Ectopy: Ectopy: none QRS: QRS axis: Normal QRS intervals: Normal Conduction: Conduction: normal ST segments: ST segments: Normal T waves: T waves: normal CRITICAL CARE (09/09/2019 4:52 AM CIRCULATION MAN) Narrative Performed At Anshul Olmstead MD 09/10/2019 8:14 PM Critical Care Performed by: Anshul Olmstead MD Authorized by: Anshul Olmstead MD Critical care provider statement: Critical care time (minutes): 35 Critical care time was exclusive of: Separately b illable procedures and treating other patients and teaching eduardo e Critical care was necessary to treat or prevent imminent or life-threatening deterioration of the following condit ions: hypertensive emergency. Critical care was time spent personal ly by me on the following activities: Development of treatment p aleida with patient or surrogate, discussions with consultants, discussion s with primary provider, evaluation of patient's response to baldo tment, examination of patient, obtaining history from patient or surrog ate, ordering and review of laboratory studies, ordering and performing treatments and interventions, pulse oximetry, ordering and review of radiographic st udies, re-evaluation of patient's condition and review of old charts Skinny 'yes' if you are taking over critical care for this patient from another provider.: no CT Abd/Pelvic External Study (09/08/2019 9:26 PM CIRCULATION MAN) Specimen Narrative Performed At This exam was not acquired at a [facility] facility and has not been [facility] interpreted by a [facility] Provider. T he exam was imported into our imaging system. Performing Organization Address City/[facility]/ZIP Code Phon e Number [facility] [address] [place] [address] XR Chest External Study (09/08/2019 7:51 PM CIRCULATION MAN) Specimen Narrative Performed At This exam was not acquired at a [facility] facility and has not been [facility] interpreted by a [facility] Provider. T he exam was imported into our imaging system. Performing Organization Address City/[facility] Code Phon e Number HM [facility] [address] [place] [address] Vancomycin level, trough (09/03/2019 4:00 AM CIRCULATION MAN) Vancomycin, 22.1 (HH) 10.0 - 20.0 [facility] trough Comment: ug/mL HOSPITAL Therapeutic Ranges: Peak 30.0 - 40.0 ug/mL Trough 10.0 - 20.0 ug/mL Specimen Serum Performing Organization Address [facility] Phon e Number [facility] OF PATHOLOGY AND [address] [place] [address] [phone] [address] Smear review (09/02/2019 5:00 AM CIRCULATION MAN) Pathologist Sig nature Platelet slide Iris adequate [facility] Specimen Performing Organization Address [facility] Phon e Number [facility] DEPARTMENT OF PATHOLOGY AND [address] [place] [address] [phone] [address] [address] Abdomen Pelvis Wo Contrast (09/01/2019 4:42 PM CIRCULATION MAN)Only the most recent of2 resultswithin the time period is included. Specimen Narrative Performed At EXAMINATION: CT ABDOMEN PELVIS WO CONT RAST [facility] CLINICAL HISTORY: Abd pain unspecifi ed TECHNIQUE: Multiple axial images of the abdomen and pe lvis were obtained without intravenous administration of iodinated contra st. Sagittal and coronal computerized reformatted images were also obta ined. The lack of intravenous contrast reduces the sensitivity of detecting solid organ disease. Enteric contrast was not administered. CT imaging was performed with iterative reconstruction technique and/or automated exposure control reduced radia tion dose. COMPARISON: August 30 FINDINGS: Atelectasis within the lung bases is similar. Small pe ricardial effusion is unchanged. Abdomen: 1. Extensive thickening of the proximal colon is gross ly stable, though suboptimally demonstrated secondary to absence of both enteric and IV contrast. Paracolic and mesenteric stranding has sligh tly increased, though there is no evidence of focal flu id or abscess. 2. Appearance of the bowel is otherwise unchanged. 3. The gallbladder is mildly distended, though there i s no intra or extrahepatic biliary or pancreatic ducta l dilation. 4. Hematoma inferior of the previous ileostomy site is stable in size and appearance. 5. Appearance of the abdomen and pelvis is otherwise u nchanged from the exam performed 2 days ago. Pelvis: 1. Hysterectomy. The bladder is mildly d istended. 2. Rectal anastomosis is similar to the prior examinat ion without evidence of obstruction. Appearance of t he pelvis is otherwise similar. IMPRESSION: Slight interval increase in right paracolic inflammati on with grossly stable thickening of the right colon is nonspecific. T aaron ischemia cannot be excluded, there is no evidence of pneumatosi s or perforation at this time. Exam is otherwise grossly stable, though limited. [id number] Procedure Note [facility], Radiology Results Incoming - 09/01/2019 8:31 PM CIRCULATION MAN EXAMINATION: CT ABDOMEN PELVIS WO CONTRAST CLINICAL HISTORY: Abd pain unspecified TECHNIQUE: Multiple axial images of the abdomen and pelvis were obtained without intravenous administration of iodinated contrast. Sagittal and coronal computerized reformatted images were also obtained. The lack of intravenous contrast reduces the sensitivity of detecting solid organ dis ease. Enteric contrast was not administered. CT imaging was performed with iterative reconstruction technique and/or automated exposure control reduced radiation dose. COMPARISON: August 30 FINDINGS: Atelectasis within the lung bases is sim ilar. Small pericardial effusion is unchanged. Abdomen: 1. Extensive thickening of the proximal colon is grossly stable, though suboptimally demonstrated secondary to absence of both enteric and IV contrast. Paracolic and mesenteric stranding has slightly increased, though there is no evidence of focal flu id or abscess. 2. Appearance of the bowel is otherwise unchanged. 3. The gallbladder is mildly distended, though there is no intra or extrahepatic biliary or pancreatic ductal dilation. 4. Hematoma inferior of the previous ile ostomy site is stable in size and appearance. 5. Appearance of the abdomen and pelvis is otherwise unchanged from the exam performed 2 days ago. Pelvis: 1. Hysterectomy. The bladder is mildly d istended. 2. Rectal anastomosis is similar to the prior examination without evidence of obstruction. Appearance of the pelvis is otherwise similar. IMPRESSION: Slight interval increase in right paraco lic inflammation with grossly stable thickening of the right colon is nonspecific. Though ischemia cannot be excluded, there is no evidence of pneumatosis or perforation at this time. Exam is otherwise grossly stable, though limited. [id number] Performing Organization Address City/[facility]/ZIP Code Phon e Number [facility] [address] [place] [phone] Lipase level (09/01/2019 3:50 PM CIRCULATION MAN) Pathologist [facility] Lipase 12 (L) 13 - 60 U/L [facility] Specimen Plasma specimen Performing Organization Address [facility] Phon e Number [facility] DEPARTMENT OF PATHOLOGY AND [address] [place] [address] [address] Enteric bacterial panel (09/01/2019 3:45 PM CIRCULATION MAN) Pathologist [facility] Enteric bacterial Negative for all pathogens tested: [facility] [place] panel Negative for Salmonella EPISCOPAL Negative for Campylobacter [facility] Negative for Diarrheagenic E coli/Shigella Negative for Shiga-like toxin-producing E coli Negative for Plesiomonas shigelloides Negative for Yersinia enterocolitica Negative for Vibrio species This real-time PCR assay detects the presence of nucle ic acids (RNA or DNA) for the gastrointestinal pathogens listed. A result of "Not-detected" does not exclude the possib ility of the presence of one or more pathogens at concentrat ions less than the detectable limits of the assay. Comment: Specimen Information Specimen Source: Stool Specimen Site: Nonpreserved Specimen Stool - Nonpreserved Performing Organization Address [facility] Phon e Number [facility] DEPARTMENT OF PATHOLOGY AND [address] [place] [address] [phone] [address] Enteric viral panel (09/01/2019 3:45 PM CIRCULATION MAN) Pathologist Raphael Enteric viral Negative for all pathogens tested: [place] panel Negative for Adenovirus F 40/41 EPISCOPAL Negative for [facility] Negative for Norovirus GI/GII Negative for Rotavirus A Negative for Sapovirus This real-time PCR assay detects the presence of nucle ic acids (RNA or DNA) for the gastrointestinal pathogens listed. A result of "Not-detected" does not exclude the possib ility of the presence of one or more pathogens at concentrat ions less than the detectable limits of the assay. Comment: Specimen Information Specimen Source: Stool Specimen Site: Nonpreserved Specimen Stool - Nonpreserved Performing Organization Address City/State/ZIP Code Phon e Number [facility] DEPARTMENT OF PATHOLOGY AND [address] [place] [address] [facility] [address] [place] [address] XR Chest 1 Vw Portable (09/01/2019 3:27 PM CIRCULATION MAN) Specimen Narrative Performed At SINGLE V[facility] CHEST, [facility] Clinical History: Abdominal pain. Technique: Single, portable AP view ches t. Comparison: 08/26/2019 Impression: 1.Right internal jugular tunneled central venous ricardo ter tip at the upper SVC. 2.Platelike atelectasis in the lung base s. Lungs are otherwise clear.. 3.Cardiomegaly. No fulminant pulmonary e frankie. 4.No pleural effusions or pneumothorax. 5.Normal pulmonary vasculature. 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 Otherwise, intact skeleton. Procedure Note Interface, Radiology Results Incoming - 09/01/2019 4:32 PM CIRCULATION MAN SINGLE VIEW CHEST, 09/01/2019 Clinical History: Abdominal pain. Technique: Single, portable AP view ches t. Comparison: 08/26/2019 Impression: 1.Right internal jugular tunneled centra l venous catheter tip at the upper SVC. 2.Platelike atelectasis in the lung base s. Lungs are otherwise clear.. 3.Cardiomegaly. No fulminant pulmonary e frankie. 4.No pleural effusions or pneumothorax. 5.Normal pulmonary vasculature. 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 Otherwise, intact skeleton. Performing Organization Address City/State/ZIP Code Phon e Number [facility] [address] [place] [address] Blood culture, aerobic & anaerobic (08/31/2019 6:30 PM CIRCULATION MAN)Only the most recent of2 resultswithin the time period is included. Blood culture No growth after 5 days of incubation. [facility]WELLIST isolate Comment: HOSPITAL Specimen Information Specimen Source: Blood Specimen Site: Antecubital Left Specimen Blood Performing Organization Address City/State/ZIP Code Phon e Number [facility] DEPARTMENT OF PATHOLOGY AND [address] [place] [address] [phone] [address] Gram stain (08/31/2019 2:28 AM CIRCULATION MAN) Pathologist [facility] Gram stain result No WBC's or organisms seen. [facility] Comment: HOSPITAL Specimen Information Specimen Source: Urine Specimen Site: [place] Specimen Urine - [place] Performing Organization Address City/[facility] Phon e Number [facility] DEPARTMENT OF PATHOLOGY AND [address] [place] [address] [address] Urine culture (08/31/2019 2:28 AM CIRCULATION MAN) [facility] Urine culture growth after 24 hours [facility] isolate Comment: HOSPITAL Specimen Information Specimen Source: Urine Specimen Site: [place] Specimen Urine - [place] Performing Organization Address [facility] Phon e Number [facility] AND [address] [place] [address] [address] Antibody identification (08/31/2019 1:45 AM CIRCULATION MAN) Pathologist Sig nature Antibody ID POS, Anti-FyA [facility] Antibody ID POS, Anti-Radha [facility] Specimen Performing Organization Address [facility] Phon e Number [facility] AND [address] [place] [address] [phone] [address] Partial thromboplastin time, activated (08/31/2019 1:45 AM CIRCULATION MAN) Pathologist [facility] PTT 31.2 23.0 - 36.0 [facility] Comment: [facility] PTT therapeutic range for unfractionated heparin is 61.0-112.0 seconds which corresponds to Anti-Xa 0.3-0.7 U/ml. Specimen Blood Performing Organization Address City/[facility] Phon e Number [facility] AND [address] [place], [place] [phone] [address] [address] Prothrombin time with INR (08/31/2019 1:45 AM CIRCULATION MAN) Pathologist [facility] Prothrombin time 16.6 (H) 11.5 - 14.5 [facility] INR 1.3 [place] Comment: [facility] International Normalized Ratio (INR) is a [facility] monitoring tool for patients who are stable on oral anticoagulant therapy. An INR of 2.0-3.0 is suggested for deep vein thrombosis/pulmonary embolism. Specimen Blood Performing Organization Address City/[facility]/ZIP [facility] Phon e Number [facility] AND [address] [place] [address] [phone] [address] Fibrinogen (08/31/2019 1:45 AM CIRCULATION MAN) Pathologist Sig replaced by [facility] Fibrinogen 502 (H) 200 - 450 mg/dL [facility] L Specimen Blood Performing Organization Address [facility] Phon e Number [facility] AND [address] [place], [place] [phone] [address] [address] Prepare RBC, 1 Units (08/31/2019 1:45 AM CIRCULATION MAN) Product name Apheresis Red Cell [place] AS3 #1 [facility] Unit number [id number] [facility] Product code [id number] [facility] Dispense status Transfused [facility] Blood expiration date [facility] Blood type code 5100 [facility] Blood type O POSITIVE [facility] Compatibility Compatible [facility] Specimen Blood Performing Organization Address City/[facility] Phon e Number [facility] AND [address] [place] [address] [address] Type and screen (08/31/2019 1:45 AM CIRCULATION MAN) Pathologist Sig nature ABO grouping O [facility] Rh type POS [facility] Antibody screen (gel) POS [facility] Specimen Blood Performing Organization Address [facility] Phon e Number [facility] AND [address] [place] [address] [phone] [address] Urinalysis screen and microscopy, with reflex to culture (08/31/2019 1:20 AM CIRCULATION MAN) Pathologist Sig nature Specimen site [place] [facility] Color, UA Yellow [facility] Appearance, UA Clear [facility] Specific gravity, UA 1.012 1.001 - 1.035 [facility] pH, UA 9.0 5.0 - 8.5 [facility] Protein, UA 1+ (A) Negative [facility] Glucose, UA Negative Negative [facility] Ketones, UA Negative Negative [facility] Bilirubin, UA Negative Negative [facility] Blood, UA Small (A) Negative [facility] Nitrite, UA Negative Negative [facility] Urobilinogen, UA <2.0 <2.0 [facility] Leukocyte esterase, Trace (A) Negative [facility] WBC, UA 11 (H) 0 - 4 /HPF [facility] RBC, UA 2 0 - 5 /HPF [facility] Bacteria, UA Few None seen [facility] Yeast, UA None seen [facility] Yeast with None seen [facility] pseudohyphae, HOSPITAL Specimen Urine Performing Organization Address City/[facility] Phon e Number [facility] AND [address] [place] [address] [phone] [address] Hemoglobin & hematocrit (08/30/2019 6:13 PM CIRCULATION MAN) Pathologist Sig nature HGB 8.6 (L) 12.0 - 16.0 g/dL [facility] HCT 26.6 (L) 37.0 - 47.0 % [facility] Specimen Blood Performing Organization Address [facility] Phon e Number [facility] AND [address] [place] [address] [phone] [address] after 08/30/2019 Insurance Payer Benefit Plan / Subscriber ID Effective Dates Phone Addre ss Type Group [facility] MEDICARE (WELLMED) [facility] DUAL [id number] 2016-Present HMO COMPLETE MEDICAID MEDICAID [id number] 2014-Present Med icaid [id number] Advance Directives For more information, please contact: [phone] Type Date Recorded Patient Supervisor Component Assembler Explanati on Advance Directives, Living 06/14/2019 12:15 PM Will and Medical Power of Program Host
--- OUTSIDE RECORDS SUMMARY | 2020-08-30 02:57 | XMS REPORT | Continuity of Care Document ---
:1970 Author Organization [facility] t Address [address] [place] [address] Care Team Providers Name Role Phone Pcp Primary Care Physician Unavailable Francisco Burgess MD Attending Clinician Sunny Olmstead MD Attending Clinician Ce Velasco MD Attending Clinician Soniya WALTER, Verito Attending Clinician CAROLYN LI Attending Clinician Unavailable ROD Admitting Clinician Unavailable DAVID Admitting Clinician Unavailable CAROLYN LI Admitting Clinician Unavailable Payers Payer Name Policy Type Policy Number Effective Date Expiration Date S jorge [facility] [id number] 2016 [place] MEDICARE([facility] 00:00:00 Voodoo LMED) [facility] DUAL COMPLETExxxx [id number] MEDICAIDMEDI [id number] [place] [id number] 00:00:00 Voodoo -Pr esentMedicai d Problems Condition Condition Condition Status Onset Resolution Last Treating Co mments Source Name Details Category Date Date Treatment Clinician Date Hypertensi Hypertensi Disease Active 2019-0 [place] ve ve 1-12 [facility] emergency emergency 00:00: st 00 Attention Attention Disease Active 2018-08 Ronny ston to to 27 [facility] ileostomy ileostomy 00:00: st 00 Type 2 Type 2 Disease Active 2018-08 [place] diabetes diabetes 1-04 [facility] mellitus mellitus 00:00: st 00 CKD CKD Disease Active 2018-08 [place] (chronic (chronic 1-04 [facility] kidney kidney 00:00: st disease) disease) 00 stage 4, stage 4, GFR 15-29 GFR 15-29 ml/min ml/min HTN HTN Disease Active 2018-08 [place] (hypertens (hypertens 1-04 Me thodi ion) ion) 00:00: st 00 SLE SLE Disease Active 2018-08 [place] (systemic (systemic 1-04 Meth macarena lupus lupus 00:00: st erythemato erythemato 00 al al related related syndrome) syndrome) Rheumatoid Rheumatoid Disease Active 2018-08 [place] arthritis arthritis 1-04 Meth macarena 00:00: st 00 Attention Attention Disease Active 2018-08 Ronny ston to to 1- [facility] colostomy colostomy 00:00: st 00 History of History of Disease Active 2018-08 [facility] ischemic ischemic 0-17 [facility] colitis colitis 00:00: st 00 Abdominal Abdominal Disease Active 2017-[address] [facility] [address] pain pain 09-27 [facility] 00:[facility]: [facility] 00 [place] Systemic Systemic Disease Active 2017[facility] erythemato erythemato 00:00: Me dical al al 00 [place] Essential Essential Disease Active 2017-[address] [facility] hypertensi hypertensi -30 Gilda kes - on on 00:00: Medical 00 [place] Type 2 Type 2 Disease Active 2017-[address] [facility] diabetes diabetes 30 [facility] - mellitus mellitus 00:00: Medica l with with 00 Center kidney kidney complicati complicati on, with on, with long-term long-term current current use of use of insulin insulin Colostomy Colostomy Disease Active 2017-[address] [facility] complicati complicati 30 Gilda kes - on on 00:00: Medical 00 [place] bright red bright red Disease Active 2017-[address] blood in blood in 30 [facility] - colostomy colostomy 00:00: [facility] valentin 00 [place] HTN HTN Disease Active 2017-[address] [facility] (hypertens (hypertens 1-30 Gilda kes - ion), ion), 00:00: Medical malignant malignant 00 Cent er Lupus Lupus Disease Active 2017-[address] [facility] nephritis nephritis -30 [facility] - 00:00: Medical 00 [place] DAE (acute DAE (acute Disease Active 2017-[address] kidney kidney 09-27 [facility] - injury) injury) 00:00: Medical 00 [place] Hypernatre Hypernatre Disease Active 2017-[address] charisse charisse 09-27 [facility] 00:[facility]: Medical 00 [place] Hypokalemi Hypokalemi Disease Active 2017-[address] a a 09-27 [facility] - 00:[facility]: Medical 00 [place] Colostomy Colostomy Disease Active Ronny ston in place in place 02-23 [facility] i 00:00: st 00 Allergies, Adverse Reactions, Alerts Allergy Allergy Status Severity Reaction(s) Onset Inactive Treating Comm ents Source Name Type Date Date Clinician Shellfis Propensi Active 2017-[address] [facility] h ty to 09-27 [facility] - Containi adverse 00:00: Medical ng reaction 00 Center Products s Shellfis Propensi Active Rash nausea, [place] h ty to 05-17 headache, [facility] Containi adverse 00:00: weakness st ng reaction Products s to drug Morphine Propensi Active Palpitations Flowers ty to 05-13 [facility] adverse 00:00: st reaction 00 s to drug Family History Family Member Diagnosis Comments Start Date Stop Date Source Natural father Kidney disease [facility] Natural father Kidney cancer [facility] Natural mother Cancer [facility] Natural mother Hypertension [facility] Natural mother Uterine cancer [facility] Natural sister Diabetes [facility] Social History Social Habit Start Date Stop Date Quantity Comments Source History [facility] - Alcohol Std Drinks [facility] [facility] Sex Assigned At [facility] ethodist Tobacco use and 2019-08-27 2019-08-27 Never used [facility] ethodist exposure 00:00:00 00:00:00 Alcohol intake 2019-08-27 2019-08-27 Current [facility] thodist 00:00:00 00:00:00 non-drinker of alcohol (finding) History [facility] 2018-07-28 2018-07-[address] [facility] - Alcohol Frequency 00:00:00 00:00:00 [facility] Center Smoking Status Start Date Stop Date Source Never smoker [facility] Medications Ordered Filled Start Stop Current Ordering Indication Dosage Frequency Signature Comments Components Source Medication Medication Date Date Medication? Clinician (SIG) Name Name clonIDINE 2020-0 2020- No .3mg Q7D Place 1 [place] (CATAPRES-T 09-24 patch (0.3 M ethodi TS) 0.3 00:00: 23:59 mg total) st mg/24 hr 00 :00 on the skin once a week for 30 days. GABAPENTIN 2020-0 2020- No 500mg Take 500 [place] ORAL 1-21 01-21 mg by [facility] 16:02: 00:[address] 16 :00 needed. hydroxychlo 2020-0 Yes 500mg Q.5D Take 500 [place] roquine 1-21 mg by [facility] (PLAQUENIL) 16:02: mouth 2 st 200 mg 14 (two) tablet times a day. HYDROCODONE 2020-0 Yes Take by Ronny ston /ACETAMINOP -21 mouth as Meth macarena HEN (NORCO 16:02: needed. st ORAL) 14 ALPRAZolam 2020-0 Yes .5mg Q.5D Take 0.5 Ronny ston (XANAX) 0.5 1-21 mg by [facility] MG tablet 16:02: mouth 2 st 14 (two) times a day as needed for anxiety. sertraline 2020-0 Yes 25mg QD Take 25 mg [place] (ZOLOFT) 25 -21 by mouth Meth macarena MG tablet 16:02: daily. st 14 pilocarpine 2020-0 Yes 5mg QD Take 5 mg [place] (SALAGEN) 5 -21 by mouth Meth macarena MG tablet 16:02: daily. st 14 sodium 2020-0 Yes 648mg QD Take 648 [place] bicarbonate 1-21 mg by [facility] 650 mg 16:02: mouth st tablet 14 daily. gabapentin 2020-0 2020- No 300mg Q.[id number] Take 1 [facility] (NEURONTIN) - 02-20 [id number] capsule [facility] 300 mg 00:00: 23:59 3D ([address] capsule 00 :00 total) by mouth 3 (three) times a day for 30 days. NIFEdipine 2020-0 2020- No 90mg Q.5D Take 1 [place] XL -19 10-20 tablet (90 [facility] (PROCARDIA 00:00: 23:59 mg total) s t XL) 90 MG 00 :00 by mouth 2 24 hr (two) tablet times a day for 30 days. metoprolol 2019-0 2020- No 100mg Q.5D Take 100 [place] tartrate 09-0407 mg by [facility] (LOPRESSOR) 15:52: 00:[address] 100 mg 43 :00 (two) tablet times a day. clonIDINE 2020-0 2020- No .3mg Q.[id number] Take 0.3 [facility] HCl 09-04 [id number] mg by [facility] (CATAPRES) 15:52: 00:[address] 0.3 MG 43 :00 (three) tablet times a day. hydrALAZINE 2019-0 2020- No 50mg Q.[id number] Take 50 mg [facility] (APRESOLINE 09-04 [id number] by mouth 3 [facility] ) 50 MG 15:52: 00:00 3D (three) st tablet 43 :00 times a day. amLODIPine 2019-0 2020- No 10mg QD Take 10 mg [facility] (NORVASC) 09-04 by mouth Metho di 10 mg 15:52: 00:[address] tablet 43 :00 furosemide 2019-0 2020- No 40mg Q.5D Take 40 mg [facility] (LASIX) 40 09-04 by mouth 2 Me thodi mg tablet 15:52: 00:00 (two) st 43 :00 times a day. clonIDINE 2019-0 2020- No .1mg Q4H Take 1 [place] (CATAPRES) 09-04 tablet Method i 0.1 MG 00:00: 23:59 (0.[address] tablet 00 :00 total) by mouth every 4 (four) hours as needed for high blood pressure for up to 30 days. hydrALAZINE 2019-0 2020- No 100mg Q.[id number] Take 1 [facility] (APRESOLINE 09-04 [id number] tablet Methodi ) 100 MG 00:00: 23:59 3D ([address] tablet 00 :00 total) by mouth 3 (three) times a day for 30 days. carvedilol 2020-0 2020- No 25mg Q.5D Take 1 [place] (COREG) 25 09-04 tablet (25 Me thodi MG tablet 00:00: 23:59 mg total) st 00 :00 by mouth 2 (two) times a day for 30 days. levETIRAcet 2019-2019- No 1000mg Q.5D Take 1 [place] am (KEPPRA) 09-04 tablet Metho di 1000 MG 00:00: 23:59 (1,[address] tablet 00 :00 total) by mouth 2 (two) times a day for 30 days. pantoprazol 2019- No 40mg Q.5D Take 1 Ronny ston e 09-04 tablet (40 [facility] (PROTONIX) 00:00: 23:59 mg total) s t 40 MG EC 00 :00 by mouth 2 tablet (two) times a day for 30 days. amoxicillin 2019- No 875mg Q.5D Take 10.9 [facility] -pot 09-04 mL (875 mg [facility] clavulanate 00:00: 00:00 total) by st (AUGMENTIN) 00 :00 mouth 400-57 mg/5 every 12 mL (twelve) suspension hours for 10 days. NIFEdipine 2019- No 60mg Q.5D Take 1 [place] XL 09-04 tablet (60 [facility] (PROCARDIA 00:00: 00:00 mg total) s t XL) 60 MG 00 :00 by mouth 2 24 hr (two) tablet times a day for 30 days. metroNIDAZO 2019- No 500mg Q.[id number] Take 1 [facility] LE (FLAGYL) 09-04 [id number] tablet Methodi 500 MG 00:00: 00:00 3D ([address] tablet 00 :00 total) by mouth 3 (three) times a day for 10 days. doxazosin 2017-08 Yes 4mg Take [address] [facility] (CARDURA) 2 2-04 by mouth. Jose es - MG tablet 08:16: Medical 44 Center pantoprazol 2017-08 Yes 40mg QD Take [address] [facility] e 2-04 by mouth [facility] - (PROTONIX) 08:16: daily. Medic al 40 MG 44 Center tablet zolpidem 2017-08 Yes 10mg QD Take [address] [facility] (AMBIEN) 10 -25 by mouth Luke s - mg tablet 00:00: nightly. Medi valentin 00 [place] ondansetron 2017-08 Yes DIS [address] [facility] (ZOFRAN-ODT 1-23 THE TONGUE G[facility] kes - ) 8 MG 00:00: BID Medical disintegrat 00 Center ing tablet HYDROcodone 2017-08 Yes TK [address] [facility] -acetaminop 1-15 Q 8 H PRN Jose es - hen (NORCO 00:00: Medical 10-325) 00 Center 10-325 mg per tablet HUMULIN 2017-08 Yes INJECT 60 [facility] 70/30 U-100 1-09 UNITS SQ Luke s - KWIKPEN 100 00:00: QAM AND 40 Medical unit/mL 00 UNITS QPM Center (70-30) InPn insulin pen gabapentin 2017-08 Yes TK [address] [facility] (NEURONTIN) 0-10 HS PRN [facility] - 100 MG 00:00: Medical capsule 00 Center hydroxychlo 2017-08 Yes TK [address] [facility] roquine 0-10 D [facility] - (PLAQUENIL) 00:00: Medica l 200 mg 00 Center tablet zolpidem Yes 10mg QD Take 10 mg Ronny ston (AMBIEN) 10 6-15 by mouth Meth macarena mg tablet 00:00: nightly as st 00 needed for sleep. mycophenola Yes 1000mg Q.5D Take 1,000 [facility] te 5-08 mg by [facility] (CELLCEPT) 00:00: mouth 2 st 500 mg 00 (two) tablet times a day. doxazosin 2020- No 4mg QD Take 4 mg [place] (CARDURA) 4 5-05 01-07 by mouth Met hodi MG tablet 00:00: 00:[address] 00 :00 mycophenola Yes 1000mg Q.5D Take 1,[address] te 4-07 mg by [facility] - (CELLCEPT) 00:00: mouth 2 Medi valentin 500 mg 00 (two) Center tablet times daily. amLODIPine 2014-08 Yes 10mg Take [address] (NORVASC) 2-11 by mouth. [facility] - 10 MG 00:00: Medical tablet 00 Center cloNIDine 2014-08 Yes .3mg Q.[id number] Take 0.[address] HCl 1-11 [id number] mg by [facility] - (CATAPRES) 00:00: 3D mouth 3 Medi valentin 0.3 MG 00 (three) Center tablet times daily . furosemide 2014-08 Yes 80mg Take [address] (LASIX) 40 1-11 by mouth . Jose es - MG tablet 00:00: Medical 00 Center hydrALAZINE 2014-08 Yes 50mg Q.[id number] Take [address] (APRESOLINE 1-11 [id number] by mouth 3 [facility] - ) 50 MG 00:00: 3D (three) Medical tablet 00 times Center daily. metoprolol 2014-08 Yes 100mg Q.5D Take [address] (LOPRESSOR) 1-11 mg by [facility] - 100 MG 00:00: mouth 2 Medical tablet 00 (two) Center times daily. Vital Signs Vital Name Observation Time Observation Value Comments Source Systolic blood 2019-09-18 12:05:00 148 mm[Hg] Sni Peres pressure Diastolic blood 2019-09-18 12:05:00 84 mm[Hg] Feroz Peres pressure Heart rate 2019-09-18 12:05:00 100 /min Lionel Peres Body temperature 2019-09-18 12:05:00 36.61 Chhaya Carolyn Peres Respiratory rate 2019-09-18 12:05:00 18 /min Carolyn Peres Oxygen saturation in 2019-09-18 12:05:00 97 /min Lionel Peres Arterial blood by Pulse oximetry Body weight 2019-09-12 06:43:00 77.1 kg Lionel Peres BMI 2019-09-12 06:43:00 31.09 kg/m2 Lionel Peres Body height 2019-09-09 11:07:00 157.5 cm Lionel Peres Procedures Procedure Date / Time Performing Clinician Source Performed IR TUNNELED CENTRAL LINE 2019-09-18 12:13:38 Darrel Burgess Voodoo REMOVAL Francisco SARMIENTO COMPLETE BLD COUNT 2019-09-15 05:39:00 Jayde Gao W/AUTO DIFF BASIC METABOLIC PANEL 2019-09-15 05:39:00 Jayde Gao MAGNESIUM LEVEL 2019-09-15 05:39:00 Jayde Gao odjones PHOSPHORUS LEVEL 2019-09-15 05:39:00 Jayde Gao ESTIMATED GFR 2019-09-15 05:39:00 Darrel Burgess XR ABDOMEN 1 VW PORTABLE 2019-09-14 11:47:45 Gabi Velasco HC COMPLETE BLD COUNT 2019-09-14 10:55:00 [facility], Jaydeeduin Vogt n Voodoo W/AUTO DIFF BASIC METABOLIC PANEL 2019-09-14 10:55:00 [facility], Jayde Sin n Voodoo MAGNESIUM LEVEL 2019-09-14 10:55:00 [facility] Jayde Flowers Meth odist PHOSPHORUS LEVEL 2019-09-14 10:55:00 [facility], [facility] Met hodist ESTIMATED GFR 2019-09-14 10:55:00 Darrel Burgess Flowers Meth odist Francisco UNMONITORED VIDEO-EEG 26 2019-09-13 21:03:03 Gabi Velasco HRS 1 MIN-36HRS HC COMPLETE BLD COUNT 2019-09-13 00:18:00 [facility], Jayde Sin de la cruz Voodoo W/AUTO DIFF MAGNESIUM LEVEL 2019-09-13 00:18:00 [facility] Flowers Meth odist PHOSPHORUS LEVEL 2019-09-13 00:18:00 [facility], [facility] Met hodist ESTIMATED GFR 2019-09-13 00:18:00 Darrel Burgess Meth odist [place] COMPREHENSIVE METABOLIC 2019-09-13 00:18:00 David, Darrel Carolyn bocanegra Voodoo PANEL Francisco ECG 12-LEAD 2019-09-13 00:17:16 Maria G Scottciarra Flowers Meth odist EEG SETUP 2019-09-13 00:13:30 Gabi Velasco Meth odist POC GLUCOSE 2019-09-12 23:54:00 Gabi Velasco Meth odist POC GLUCOSE 2019-09-12 16:49:00 Gabi Velasco Meth odist POC GLUCOSE 2019-09-12 10:55:00 Gabi Velasco Meth odist EEG (ROUTINE) 2019-09-12 10:07:26 Gabi Velasco Meth odist POC GLUCOSE 2019-09-12 07:33:00 Gabi Velasco Meth odist THYROID STIMULATING 2019-09-12 07:23:00 Leana Goncalves Voodoo HORMONE T4, FREE 2019-09-12 07:23:00 Leana Goncalves Met hodist COMPREHENSIVE METABOLIC 2019-09-12 04:00:00 Kulwinder De Souza Voodoo PANEL Darrell MAGNESIUM LEVEL 2019-09-12 04:00:00 Kulwinder De Souza ethodist Darrell PHOSPHORUS LEVEL 2019-09-12 04:00:00 Kulwinder De Souza HC COMPLETE BLD COUNT 2019-09-12 04:00:00 Kulwinder De Souza Voodoo W/AUTO DIFF Darrell ESTIMATED GFR 2019-09-12 04:00:00 Kulwinder De Souza ethodist Darrell POC GLUCOSE 2019-09-11 21:04:00 Gabi Velasco Meth odist MRI BRAIN VENOGRAM 2019-09-11 18:26:00 Leana Goncalves MRA NECK WO CONTRAST 2019-09-11 18:25:00 Leana Goncalves Voodoo MRA HEAD WO CONTRAST 2019-09-11 18:25:00 Leana Goncalves Voodoo MRI BRAIN W WO CONTRAST 2019-09-11 18:25:00 Leana Goncalves Voodoo KEPPRA (LEVETIRACETAM) 2019-09-11 14:28:00 Jayde Gao on Voodoo LEVEL SEDIMENTATION RATE 2019-09-11 14:28:00 Leana Goncalves C-REACTIVE PROTEIN 2019-09-11 14:28:[address] HEAD WO CONTRAST 2019-09-11 13:29:03 Jayde Gao POC GLUCOSE 2019-09-11 12:01:00 Gabi Velasco Meth odist POC GLUCOSE 2019-09-11 07:16:00 Gabi Velasco Meth odist COMPREHENSIVE METABOLIC 2019-09-11 05:45:00 Kulwinder De Souza Voodoo PANEL Darrell MAGNESIUM LEVEL 2019-09-11 05:45:00 Kulwinder De Souza ethodist Darrell PHOSPHORUS LEVEL 2019-09-11 05:45:00 Kulwinder De Souza HC COMPLETE BLD COUNT 2019-09-11 05:45:00 Kulwinder De Souza Voodoo W/AUTO DIFF Darrell ESTIMATED GFR 2019-09-11 05:45:00 Kulwinder De Souza ethodist Darrell POC GLUCOSE 2019-09-10 21:03:00 Gabi Velasco Meth odist POC GLUCOSE 2019-09-10 07:50:00 Gabi Velasco Meth odist COMPREHENSIVE METABOLIC 2019-09-10 03:09:00 Kulwinder De Souza Voodoo PANEL Darrell MAGNESIUM LEVEL 2019-09-10 03:09:00 Kulwinder De Souza ethodist Darrell PHOSPHORUS LEVEL 2019-09-10 03:09:00 Kulwinder De Souza Darrell CBC WITH PLATELET AND 2019-09-10 03:09:00 Kulwinder De Souza Voodoo DIFFERENTIAL Darrell ESTIMATED GFR 2019-09-10 03:09:00 Kulwinder De Souza ethodist Darrell MANUAL DIFFERENTIAL 2019-09-10 03:09:00 Kulwinder De Souza on Voodoo Darrell POC GLUCOSE 2019-09-10 01:23:00 Gabi Velasco Meth odist BASIC METABOLIC PANEL 2019-09-09 21:15:00 Sangeeta Guo on Voodoo MAGNESIUM LEVEL 2019-09-09 21:15:00 Sangeeta Guo Met hodist PHOSPHORUS LEVEL 2019-09-09 21:15:00 Sangeeta Guo Me thodist LACTIC ACID LEVEL 2019-09-09 21:15:00 Sangeeta Guo ethodist IONIZED CALCIUM 2019-09-09 21:15:00 Sangeeta Guo Met hodist ESTIMATED GFR 2019-09-09 21:15:00 Sangeeta Guo Met hodist POC GLUCOSE 2019-09-09 20:54:00 Gabi Velasco Meth odist ECG 12-LEAD 2019-09-09 18:02:49 Damaso Jacinto Met hodist POC GLUCOSE 2019-09-09 17:56:00 Gabi Velasco Meth odist ECG 12-LEAD 2019-09-09 05:44:01 Darrel Burgess Meth odist Francisco CBC WITH PLATELET AND 2019-09-09 05:30:00 Darrel Burgess Sin de la cruz Voodoo DIFFERENTIAL Francisco BASIC METABOLIC PANEL 2019-09-09 05:30:00 Giuliana Burgessshua Sin Singh ESTIMATED GFR 2019-09-09 05:30:00 Darrel Burgess Francisco MANUAL DIFFERENTIAL 2019-09-09 05:30:00 Darrel Burgess Larisa Singh LACTIC ACID LEVEL 2019-09-09 05:30:00 Darrel Burgess Me thodist Francisco ECG 12-LEAD 2019-09-09 04:56:34 Darrel Burgess Jacques meadejones Francisco RI CRITICAL CARE, E/M 2019-09-09 04:52:18 Tu, Anshul Peres 30-74 MINUTES ECG ED PRELIMINARY 2019-09-09 04:52:18 Tu, Anshul Peres INTERPRETATION CT ABD/PELVIC EXTERNAL 2019-09-08 21:26:00 Darrel Burgess on Voodoo STUDY Francisco XR CHEST EXTERNAL STUDY 2019-09-08 19:51:00 David, Darrel Singh HC COMPLETE BLD COUNT 2019-09-04 04:50:00 Sunday Worthy W/AUTO DIFF [place] BASIC METABOLIC PANEL 2019-09-04 04:00:00 Teddy Kendall ESTIMATED GFR 2019-09-04 04:00:00 Darrel Burgess Jacques halinajones Singh POC GLUCOSE 2019-09-03 20:01:00 Darrel Burgess Francisco POC GLUCOSE 2019-09-03 17:50:00 Darrel Burgess Francisco POC GLUCOSE 2019-09-03 12:21:00 Darrel Burgess Francisco POC GLUCOSE 2019-09-03 08:09:00 Darrel Burgess Jacques bushra Francisco HC COMPLETE BLD COUNT 2019-09-03 05:30:00 Sunday Worthy W/AUTO DIFF [place] VANCOMYCIN LEVEL, TROUGH 2019-09-03 04:00:00 Teddy Kendall BASIC METABOLIC PANEL 2019-09-03 04:00:00 Teddy Kendall Voodoo MAGNESIUM LEVEL 2019-09-03 04:00:00 KendallLiz saldanacarlenevaishali Flowers Me thodist PHOSPHORUS LEVEL 2019-09-03 04:00:00 Teddy Kendall M ethodist IONIZED CALCIUM 2019-09-03 04:00:00 Teddy Kendall Me thodist ESTIMATED GFR 2019-09-03 04:00:00 Darrel Burgess Meth odjones Singh POC GLUCOSE 2019-09-02 20:26:00 Darrel Burgess Meth odist Francisco POC GLUCOSE 2019-09-02 17:21:00 Darrel Burgess Meth odjones Singh POC GLUCOSE 2019-09-02 12:48:00 Darrel Burgess Meth odist Francisco POC GLUCOSE 2019-09-02 08:24:00 Darrel Burgess Jacques odjones Singh HC COMPLETE BLD COUNT 2019-09-02 05:00:00 Sunday Worthy Voodoo W/AUTO DIFF [place] SMEAR REVIEW 2019-09-02 05:00:00 Darrel Burgess Meth odjones Singh COMPREHENSIVE METABOLIC 2019-09-02 04:00:00 Sunday Worthy Voodoojones Maloney MAGNESIUM LEVEL 2019-09-02 04:00:00 Sunday Worthy [place] PHOSPHORUS LEVEL 2019-09-02 04:00:00 Sunday Worthy ESTIMATED GFR 2019-09-02 04:00:00 Darrel Burgess Lionel Singh POC GLUCOSE 2019-09-01 20:22:00 Darrel Burgess Meth odjones Francisco POC GLUCOSE 2019-09-01 16:49:00 David, Darrelangela Hanna odjones Singh CT ABDOMEN PELVIS WO 2019-09-01 16:42:49 Noelle Abdi CONTRAST Tarawaly ECG 12-LEAD 2019-09-01 16:00:08 Noelle Abdi Tarawaroyce HC COMPLETE BLD COUNT 2019-09-01 15:50:00 Noelle Abdi Voodoo W/AUTO DIFF [place] COMPREHENSIVE METABOLIC 2019-09-01 15:50:00 Noelle Abdi Carolyn bocanegra Voodoo PANEL [place] IONIZED CALCIUM 2019-09-01 15:50:00 Noelle Abdi odjones [place] MAGNESIUM LEVEL 2019-09-01 15:50:00 Noelle Abdi odjones [place] PHOSPHORUS LEVEL 2019-09-01 15:50:00 Noelle Abdi Met hodjones [place] LACTIC ACID LEVEL 2019-09-01 15:50:00 Noelle Abdi Wa thodist Tarawaroyce ESTIMATED GFR 2019-09-01 15:50:00 Noelle Abdi odjones [place] LIPASE LEVEL 2019-09-01 15:50:00 Noelle Abdi Meth odjones Hartzulema ENTERIC BACTERIAL PANEL 2019-09-01 15:45:00 Mahamed Hairston Voodoo Germain ENTERIC VIRAL PANEL 2019-09-01 15:45:00 Mahamed Hairston Germain POC GLUCOSE 2019-09-01 15:37:00 DavidDarrel vigil Lionel Singh XR CHEST 1 VW PORTABLE 2019-09-01 15:27:00 Mahamed Hairston on Voodoo Germain POC GLUCOSE 2019-09-01 11:42:00 Darrel Burgess Lionel Singh POC GLUCOSE 2019-09-01 07:54:00 Darrel Burgess Jacques Singh HC COMPLETE BLD COUNT 2019-09-01 04:25:00 Sunday Worthy W/AUTO DIFF [place] COMPREHENSIVE METABOLIC 2019-09-01 04:00:00 Sunday Worthy Voodoo PANEL [place] MAGNESIUM LEVEL 2019-09-01 04:00:00 Sunday Worthy PHOSPHORUS LEVEL 2019-09-01 04:00:00 Sunday Worthy ESTIMATED GFR 2019-09-01 04:00:00 Darrel Burgess Lionel Singh POC GLUCOSE 2019-08-31 20:15:00 Darrel Burgess Jacques Singh BLOOD CULTURE, AEROBIC & 2019-08-31 18:30:00 Teddy Kendall ANAEROBIC BLOOD CULTURE, AEROBIC & 2019-08-31 18:20:00 Teddy Kendall ANAEROBIC POC GLUCOSE 2019-08-31 17:15:00 DavidDarrel vigil Meth odist Francisco POC GLUCOSE 2019-08-31 15:55:00 DavidDarrel vigil Meth odist Francisco HC COMPLETE BLD COUNT 2019-08-31 15:06:00 Heriberto Lucero on Voodoo W/AUTO DIFF POC GLUCOSE 2019-08-31 12:05:00 DavidDarrel vigil Meth odist Francisco POC GLUCOSE 2019-08-31 08:05:00 DavidDarrel vigil Meth odist Francisco POC GLUCOSE 2019-08-31 04:08:00 Darrel Burgess Jacques odist Francisco GRAM STAIN 2019-08-31 02:28:00 Suze Valentin Met tevin Suggs URINE CULTURE 2019-08-31 02:28:00 Suze Valentin Met hodjones ORDOÑEZ (LEVETIRACETAM) 2019-08-31 01:45:00 Kulwinder De Souza Voodoo LEVEL Darrell HC COMPLETE BLD COUNT 2019-08-31 01:45:00 Zohra Soares n Voodoo W/AUTO DIFF COMPREHENSIVE METABOLIC 2019-08-31 01:45:00 SaqerZohra Voodoo PANEL FIBRINOGEN 2019-08-31 01:45:00 Zohra Soares Meth odist LACTIC ACID LEVEL 2019-08-31 01:45:00 Zohra Soares Me thodist MAGNESIUM LEVEL 2019-08-31 01:45:00 SaqerZohra odist PHOSPHORUS LEVEL 2019-08-31 01:45:00 Zohra Soares Met hodist PROTHROMBIN TIME WITH INR 2019-08-31 01:45:00 Zohra Soares Voodoo PARTIAL THROMBOPLASTIN 2019-08-31 01:45:00 Zohra Soares on Voodoo TIME (PTT) ESTIMATED GFR 2019-08-31 01:45:00 Zohra Soares odist TYPE AND SCREEN 2019-08-31 01:45:00 SeanKeena IONIZED CALCIUM 2019-08-31 01:45:00 Zohra Soares Lionel tomlinson ANTIBODY IDENTIFICATION 2019-08-31 01:45:00 Keena Estrada POC GLUCOSE 2019-08-31 01:45:00 Darrel Burgess Jacques Singh PREPARE RBC 2019-08-31 01:45:00 Mahamed Hairston Lionel Groves URINALYSIS SCREEN AND 2019-08-31 01:20:00 Suze Valentin on Voodoo MICROSCOPY, WITH REFLEX TO Fadia Suggs CULTURE POC GLUCOSE 2019-08-30 20:58:00 Giuliana Burgessjimbo Singh HEMOGLOBIN & HEMATOCRIT 2019-08-30 18:13:00 Sunday Worthy BASIC METABOLIC PANEL 2019-08-30 18:13:00 Sunday Worthy MAGNESIUM LEVEL 2019-08-30 18:13:00 Sunday Worthy ESTIMATED GFR 2019-08-30 18:13:00 David Darreljimbo Singh POC GLUCOSE 2019-08-30 16:54:00 David Darreljimbo Singh POC GLUCOSE 2019-08-30 10:43:[address] ABDOMEN PELVIS WO 2019-08-30 09:29:54 uJan Cole CONTRAST POC GLUCOSE 2019-08-30 07:27:00 David, Darreljimbo Singh HC COMPLETE BLD COUNT 2019-08-30 04:00:00 Sunday Worthy W/AUTO DIFF [place] COMPREHENSIVE METABOLIC 2019-08-30 04:00:00 Sunday Worthy MAGNESIUM LEVEL 2019-08-30 04:00:00 Sunday Worthy PHOSPHORUS LEVEL 2019-08-30 04:00:00 Sunday Worthy ESTIMATED GFR 2019-08-30 04:00:00 Darrel Burgess Plan of Care Planned Activity Planned Date Details Comments Source Future Scheduled 2020 BREAST CANCER [facility] Test 00:00:00 SCREENING [code = BREAST CANCER SCREENING] Future Scheduled 2020 COLONOSCOPY SCREENING [facility] 00:00:00 [code = COLONOSCOPY SCREENING] Future Scheduled 2020 SHINGLES VACCINES (#1) [facility] 00:00:00 [code = SHINGLES VACCINES (#1)] Future Scheduled 2020-04-29 INFLUENZA VACCINE (#1) [facility] - Test 00:00:00 [code = INFLUENZA Medical Ce nter VACCINE (#1)] Future Scheduled 2020-03-29 IN[facility]ENZA VACCINE [place] [facility] 00:00:00 [code = INFLUENZA VACCINE] Future Scheduled 2019-01-[address] [facility] (procedure) [code = 11955739] Future Scheduled 2018-08-[address] [facility] Test 00:00:00 WELLNESS (YEAR 2 or Medical Center FIRST YEAR if no IPPE) [code = MEDICARE ANNUAL WELLNESS (YEAR 2 or FIRST YEAR if no IPPE)] Future Scheduled [address] [facility] Test 00:[facility]00 (procedure) [code = Medical Center 54479193] Future Scheduled 2014-06-[address] [facility] - Test 00:00:00 0-64 YRS (2 of 3 - Medical C enter PCV13) [code = PNEUMOCOCCAL VACCINE 0-64 YRS (2 of 3 - PCV13)] Future Scheduled [address] [facility] - Test 00:00:00 malignant neoplasm of [facility] cervix (procedure) [code = 742352880] Future Scheduled 1991 Screening for [facility] Test 00:00:00 malignant neoplasm of cervix (procedure) [code = 851083021] Future Scheduled 1986 COVID-19 VACCINE (#1) [place] [facility] 00:00:00 [code = COVID-19 VACCINE (#1)] Future Scheduled [address] DIABETIC EYE EXAM [facility] - Test 00:00:00 [code = DIABETIC EYE Medical Center EXAM] Future Scheduled [address] [facility] Test 00:[facility]00 examination Medical Center (regime/therapy) [code = 006980401] Future Scheduled 1980 Urine screening for [facility] Test 00:00:00 [facility] (procedure) [facility] [code = 279265796] Future Scheduled 1980 DIABETES: RETINAL EYE [place] [facility] 00:00:00 EXAM [code = DIABETES: RETINAL EYE EXAM] Future Scheduled 1980 DIABETIC FOOT EXAM [place] [facility] 00:00:00 [code = DIABETIC FOOT EXAM] Encounters Start End Encounter Admission Attending Care Care Encounter Source Date/Time Date/Time Type Type Clinicians Facility Department ID 2019-09-09 2019-09-18 Inpatient GABI VELASCO [facility] [id number] [place] 00:00:00 00:00:[address] 2019-08-24 2019-09-04 Inpatient DAVID, [facility] [id number] [place] 00:00:00 00:00:[address] [facility] [address] 2019-08-23 2019-08-23 Outpatient DAVID, [facility] [id number] [place] 00:00:00 00:00:00 DARREL [address] 2019-08-14 2019-08-14 Outpatient DAVID, [facility] [id number] [place] 00:00:00 00:00:00 D[facility] [address] 2019-07-02 2019-07-13 Inpatient DAVID, [facility] [id number] [place] 00:00:00 00:00:00 DARREL [address] 2019-06-14 2019-06-14 Outpatient DAVID, [facility] 021 [id number] [place] 00:00:00 00:00:00 [facility]AR[facility] [address] Results Test Description Test Time Test Comments Results Result Sourc e Comments IR Tunneled 2019-08-30 [facility] 1 Radiology Results Metho dist Removal 13:25:38 - 09/18/2019 1:28 PM CSTPerforming RadiologistDavid Taylor MD AssistantsNone Anesthesia TypeNone. Pre Procedure Mfvvwujfj31-xsqc-ojs female here for tunneled central venous catheter removal. Post Procedure DiagnosisStatus post right chest tunneled central venous catheter removal. ProcedureRight chest tunneled central venous catheter removal. TechniqueWritten informed consent was obtained prior to the procedure. The procedure was performed [...] manual compression. The patient tolerated the procedure well.Total Fluoroscopic TimeNo fluoroscopy was used ComplicationsNone Specimens RemovedAs described above. Estimated Blood LossLess then 1 mL Blood/Blood Products AdministeredNone Grafts/ImplantsNone Impression:Successful removal of the right chest tunneled central venous catheter, as described above.[facility]-[id number] Basic metabolic panel 2019-09-15 06:50:03 Test Item Value Reference Range Interpretation Comme nts Sodium (test code = 2951-2) 140 135- 148 mEq/L Potassium (test code = 2823-3) 3.4 3.5- 5.0 mEq/L L Chloride (test code = 2075-0) 101 98- 112 mEq/L CO2 (test code = 8-9) 23 24- 31 mEq/L L Anion gap (test code = 64764-2) 16@ANIO 7- 15 mEq/L H BUN (test code = 3094-0) 8 mg/dL 6-20 Creatinine (test code = 2160-0) 1.14 mg/dL 0.5-0.9 H Glucose (test code = 2345-7) 64 mg/dL 65-99 L Calcium (test code = 64402-2) 8.5 mg/dL 8.3-10.2 Lab Interpretation (test code = 00361-5) Abnormal [place] MethodistMagnesium ucdqe8043-06-19 06:50:03 Test Item Value Reference Range Interpretation Comments Magnesium (test code = 97512-9) 1.7 mg/dL 1.6-2.6 [place] MethodistPhosphorus pfkbn8515-27-75 06:50:03 Test Item Value Reference Range Interpretation Comments Phosphorus (test code = 2777-1) 3.2 mg/dL 2.4-4.5 [place] MethodistEstimated [id number] 06:50:03 Test Item Value Reference Range Interpretation Comments Estimated GFR (test 65 mL/min/1.73 m2 [facility] code = 5488) InterpretationG 1 >=90 Normal or highG2 60-89 Mildly btjqlymleC3r 45-59 Mildly to mode rately nwswwudzfT3g 30-44 Moderately to severely decreasedG4 15-29 Severely decre asedG5 <15 Kidn ey failureThe eGFR was calculated johan reynoso the Chronic Kidney Disease Epidemiology Co llaboration (CKD-EPI) equat ion. Interpretation is based on recommendations of the National Kidney Foundation-Kidn ey Disease Outcomes Qualit y Initiative (NKF-KDOQI) pub lished in 2013. Lionel MethodistCBC with platelet and jpwxqjjohmsk2004-56-90 06:18:26 Test Item Value Reference Range Interpretation Comments WBC (test code = 58334-9) 9.73 4.50- 11.00 k/uL RBC (test code = 72818-5) 3.19 m/uL 4.2-5.5 L HGB (test code = 718-7) 8.6 g/dL 12-16 L HCT (test code = 4544-3) 27.6 % 37-47 L MCV (test code = 787-2) 86.5 fL 82-100 MCH (test code = 785-6) 27.0 pg 27-34 MCHC (test code = 786-4) 31.2 g/dL 31-37 RDW - SD (test code = 50.0 fL 37-55 05682-8) MPV (test code = 92678-0) 9.3 fL 8.8-13.2 Platelet count (test code 360 150- 400 k/uL = 44864-3) Nucleated RBC (test code 0.00 /100 WBC = 20498-8) Neutrophils (test code = 69.3 % 39-69 H 26521-9) Lymphocytes (test code = 20.1 % 25-45 L 18679-6) Monocytes (test code = 8.7 % 0-10 73930-6) Eosinophils (test code = 0.8 % 0-5 76510-5) Basophils (test code = 0.6 % 0-1 60611-9) Immature granulocytes 0.5 % 0-1 "Immat ure (test code = 03465-5) granul ocytes" (promyelocytes, myelocytes, metamyelocytes) Lab Interpretation (test Abnormal code = 65065-1) [facility] MethodistECG 12 wdgr8606-77-21 20:27:35 Test Item Value Reference Range Interpretation Comments Ventricular rate 113 (test code = 253) Atrial rate (test 113 code = 255) RI interval (test 160 code = 266) QRSD interval (test 92 code = 260) QT interval (test 362 code = 264) QTC interval (test 496 code = 265) P axis 1 (test code = 40 267) QRS axis 1 (test code -5 = 268) T wave axis (test 91 code = 270) EKG impression (test Sinus tachycardia-Left code = 273) ventricular hypertrophy with repolarization abnormality-Abnormal ECG-- Flowers MethodistXR Abdomen 1 Vw Ctttnoqu8466-98-06 12:10:35Hm Interface, Radiology Results Incoming - 09/14/2019 12:13 PM CSTEXAMINATION: XR ABDOMEN 1 VW PORTABLECLINICAL HISTORY: Abd pain unspecified, Severe abdominal pain and distensionCOMPARISON: August 29, 2019 abdomenFINDINGS:Persistent air distention of small bowel loops in left abdomen. Some scattered air in the colon.Small bowel distention slightly increased over the intervalNo gross free air.Sclerotic changes in each femoral head suspicious for avascular necrosisIMPRESSION:Slight increasing small bowel distention as compared to 29 August 2019.Some air noted within the colonOngoing partial small bowel obstruction may be [id number] MethodistContinuous EEG egoatyxkwb5613-67-47 21:51:50 CONTINUOUS VIDEO-EEG MONITORING REPORT Patient Name: Babs Ferraro Date of : 1970 Gender: female Initial Study Start date: 09/12/2019Initial Study Start Time: 10:11 CurrentStudy Start Date: 09/13/2019Current Study Start Time: 00:00 Current Study End Date: 09/13/2019Current Study End Time: 17:46 IndicationSeizures Technical SummaryTechnique:Modified international 10/20 system of EEG electrode placement was used. Visual Analysis of EEG-Video Monitoring:This electroencephalogram was recorded simultaneously with video throughout the monitoring. The EEG was visually inspectedand analyzed for characterization of the background activity in all awake and sleep states, abnormalfocal and generalized features, and intraictal and ictal epileptiform activity. Electrical seizure activity was correlated with the patients clinical activity recorded on video and video captured clinical events were correlated with simultaneously recorded EEG activity. Computer Analysis of EEG Waveforms:The EEG underwent continuous computerized digital spectral analysis, which consisted of real time detection of electrical events that could be considered epileptiform. All electrographic events identified by the detection program were visually inspected in order to assess the waveform characteristics and significance of these electrographic events. All intraictal and ictal epileptiform events aredescribed further below with additional details of the visual analysis of the EEG. Events detected by computer analysis that were not determined by visual analysis to be epileptiform were considered roger myogenic, biologic, mechanical, or electrical artifact in origin. Only computer detected events that have been verified by visual inspection to be interictal or ictal epileptiform discharges are reported below and considered in the final report of this monitoring study. Findings Awake Recordings: The occipital dominant rhythm is 9 Hz.18-22 Hz activity was present in all regions. Sleep Recording: No epileptiform activity was recorded. Hyperventilation: No abnormality elicited. Photic Stimulation:Was not performed. Impression: The background activity was within the normal range of variation. No epileptiform activity was recorded. ICD-10 Code: R56.9Houston MethodistKeppra (Levetiracetam) qlasb3041-21-88 17:20:02 Test Item Value Reference Interpretation Comments Range Levetiracetam 67 ug/mL 12-46 H INTERPRETIVE I NFORMATION: (test code = Keppra 4478-4) (Levetiracetam) Therapeutic Range: 12-46 u g/mL Toxic: Not wel l EstablishedPhar macokinetics of levetiracetam a re affected by renal function. Adverse effects may inc lude somnolence, wea kness, headache and vomiting.Th is levetiracetam ( Keppra) immunoassay use s the [employer] renita gents, which has known cross -reactivity with the drug b rivaracetam (Briviact) and may report inaccurate resu lts. Patients transitioning f rom levetiracetam t o brivaracetam or those who ar e using both medications manish uld not monitor drug concentrat ions with the [employer] assay. These patients should be monitored using a validat ed chromatographic methodology that distinguis hes between drugs to determ ine drug concentrations. Performed by [facility] [place], [place] [address] fio .Mpax, Deepak Irene MD, Lab. Director Lab Interpretation Abnormal (test code = 05033-9) [place] MethodistContinuous EEG nwsroqidfx3592-44-60 06:43:58 This is a normal long-term video-EEG. There are no epileptiform discharges or seizures captured. ICD-10 Code: R569 CONTINUOUS VIDEO-EEG MONITORING REPORT [id number] Date of : 1970 Initial Study Start date: 09/12/19Initial Study StartTime: 1010 Current Study Start Date: 09/12/19Current Study Start Time: 1010 Current Study End Date: Current Study End Time: 2358 Indication: 49yo F with seizures referred for continuous video-EEG monitoring for further evaluation and treatment of her seizures Relevant Medications: LEV 1000 q12h Technical SummaryTechnique:Modified international 10/20 system of EEG electrode placement was used.Visual Analysis of EEG-Video Monitoring:This electroencephalogram was recorded simultaneously with video throughout the monitoring. The EEG was visually inspected and analyzed for characterization of the background activity in all awake and sleep states, abnormal focal and generalized features, and intraictal and ictal epileptiform activity. Electrical seizure activity was correlated with the patients clinical activity recorded on video and video captured clinical events were correlated with simultaneously recorded EEG activity. Computer Analysis of EEG Waveforms:The EEG underwent continuous computerized digital spectral analysis, which consisted of real time detection of electrical events that could be considered epileptiform. All electrographic events identified by the detection program were visually inspected in order to assess the waveform characteristics and significance of these electrographic events. All intraictal and ictal epileptiform events are described further below with additional details of the visual analysis of the EEG. Events detected by computer analysis that were not determined by visual analysis to be epileptiform were considered to be myogenic, biologic, mechanical, or electrical artifact in origin. Only computer detected events that have been verified by visual inspection to be interictal or ictal epileptiform discharges are reported below and considered in the finalreport of this monitoring study. Findings Background: The waking background at rest is continuous, composed of an admixture of largely alpha and beta frequencies, with the expected anterior to posterior voltage and frequency gradient with intermixed faster frequencies anteriorly and a symmetric and well- formed posterior dominant alpha rhythm of 9 hertz, that is reactive to eye opening. During stagesof drowsiness there is an attenuation and anterior migration of the PDR. During stages of sleep there is a normal sleep architecture noted with symmetric, synchronous and well-formed vertex sharp waves, sleep spindles and K-complexes. Interictal: There are no epileptiform discharges or seizures captured.[facility] MethodistT4, dadx4620-23-88 01:05:27 Test Item Value Reference Range Interpretation Comments T4, free (test code = 3024-7) 1.4 ng/dL 0.9-1.7 [place] [facility]mescal[facility] service unitThyroid stimulating mpwvtsm0949-03-63 01:05:27 Test Item Value Reference Range Interpretation Comments TSH (test code = 3016-3) 2.58 0.27- 4.20 uIU/mL [facility] ptzhe8024-90-59 01:01:58 Test Item Value Reference Range Interpretation Comments Sodium (test code = 139 135- 148 mEq/L 2951-2) Potassium (test code = 3.5 3.5- 5.0 mEq/L 2823-3) Chloride (test code = 104 98- 112 mEq/L 2075-0) CO2 (test code = 8-9) 23 24- 31 mEq/L L Anion gap (test code = 12@ANIO 7- 15 mEq/L 21366-6) BUN (test code = 3094-0) 8 mg/dL 6-20 Creatinine (test code = 1.27 mg/dL 0.5-0.9 H 2160-0) Glucose (test code = 100 mg/dL 65-99 H 2345-7) Calcium (test code = 8.3 mg/dL 8.3-10.2 36886-1) Protein (test code = 6.6 g/dL 6.3-8.3 9994.6-7.0 2885-2) g/dL1 brfl6011.4-7.6 g/dL7 months-2pgyk648 .1- 7.3 g/dL1-2 ybyjn333.6-7.5 g/dL>3 .0-8.0 g/hY00-2142417. 3-8 .3 g/dL Albumin (test code = 2.4 g/dL 3.5-5 L 1751-7) A/G ratio (test code = 0.6 0.7-3.8 L 1759-0) Alkaline phosphatase 87 U/L 35-104 (test code = 6768-6) AST (test code = 1920-8) 17 U/L 10-35 ALT (test code = 1742-6) 8 U/L 5-50 Total bilirubin (test 0.3 mg/dL 0-1.2 code = 1975-2) Lab Interpretation (test Abnormal code = 20215-2) [facility] zuxhjtu2299-22-14 23:54:51 Test Item Value Reference Range Interpretation Comments POC glucose (test 99 mg/dL 65-99 Engine Tester N jc: Emily code = 53886-0) Traci ID: [id number] able: [facility] Notified LUIS PeresEEG (routine) - Baseline [id number] 13:58:41EEG RECORDING AWAKE & ASLEEP - Baseline for Bedside Date of Service:09/12/19 Awake Recordings: The occipital dominant rhythm is 9 Hz.18-22 Hz activity was present in all regions. Sleep Recording: No epileptiform activity was recorded. Hyperventilation: No abnormality elicited. Photic Stimulation:Was not performed. Impression: The background activity was within the normal range of variation. No epileptiform activity was recorded. ICD-10 Code: R56.9 Donna Mccall, Clinical NeurophysiologyI reviewed the entire EEG and agree with the above findings. Carleen Lao MethodLe[facility] Medical CenterI Brain W Wo Pubifbxj1637-10-16 20:06:28 Interface, Radiology Results 09/11/2019 8:09 PM CSTEXAMINATION: MRI BRAIN W WO CONTRASTCOMPARISON: NoneCLINICAL HISTORY Seizure protocol. TECHNIQUE: Multiplanar multisequence examination was performed with and without contrastFINDINGS:There is no diffusion restriction.The ventricular s ystem and subarachnoid spaces are mildly dilated.There are extensive chronic microvascular ischemic changes in the centrum semiovale bilaterally.There is no definite acute hemorrhage or gross calcification.There is an enlarged empty sella turcica.There are no abnormal enhancing lesions within the brain parenchyma or the leptomeninges.IMPRESSION:Enlarged empty sella turcica.Extensive chronic microvascular disease in the centrum semiovale bilaterally.Age-related atrophic changes.Note: There is mild bilateral symmetrical exophthalmos with increased intraorbital fat. Please correlate clinically for thyroid eye disease.[facility]-[id number] [facility] and [facility] Head Wo Hztvwojb8977-19-73 18:43:05Hm Interface, Radiology Results 09/11/2019 6:46 PM CSTEXAMINATION: MRA HEAD WO CONTRASTCLINICAL HISTORY: lupus vasculitisCOMPARISON: None.IMPRESSION:3-D reconstructions were processed off- line.No focal narrowing, aneurysmal dilatation or vascular malformation of the [place] vessels.Both posterior communicating arteries are patent.[facility]-[id number] Medical CenterI Brain Uqvialhe4158-04-21 18:37:58Hm Interface, Radiology Results 09/11/2019 6:41 PM CSTEXAMINATION: MRI BRAIN VENOGRAMCLINICAL HISTORY: Dural venous sinus thrombosis suspectedCOMPARISON: None.FINDINGS:There is severe hypoplasia or stenosis of the left transverse sinus and the sigmoid sinus.The superior sagittal sinus and the right transverse sinus are patent.The cortical and deep veins of the brain are patent.IMPRESSION: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 TECHNIQUE:Gkpk-jg-jfdcgx MR angiography was performed without contrast and includes 3-D MIP image reconstructionsFINDINGS: The distal common carotidarteries and their bifurcations are patent.The carotid bifurcations and the proximal internal carotid arteries are patent and show no significant stenosis by NASCET criteria.The vertebral arteries are patent.There is no definite intimal dissection.IMPRESSION:No definite ICA stenosis by NASCET criteria.Vertebral artery patency.[facility]-[id number] MethodistC-reactive kincnrz3678-83-29 16:24:05 Test Item Value Reference Range Interpretation Comments CRP (test code = 1988-5) 0.86 mg/dL 0-0.5 H Lab Interpretation (test code = Abnormal 48796-3) [place] MethodistCT Head Wo Gfdsjieq4410-96-56 13:34:01Hm Interface, Radiology Results 09/11/2019 1:37 PM CSTEXAMINATION: CT HEAD WO CONTRASTCLI NICAL HISTORY: seizureCOMPARISON: CT brain from August 27, 2019TECHNIQUE: Noncontrast enhanced images of the brain were obtained from the skull base to the vertex. Both soft tissue and bone reconstruction algorithms were performed. CT scans are performed using radiation dose reduction techniques. Technical factors are evaluated and adjusted to ensure appropriate moderation of exposure. Automated dose management technology is applied to adjust radiation exposure while achieving a diagnostic quality image.FINDINGS:Artifacts obscure details.There is no definite evidence of acute intracranial hemorrhage or mass, hydrocephalus or midline shift, stroke or thrombus. There is mild nonspecific enlargement of the ventricles and extra axial space greater in the anterior region. There are mild white matter changes. The sella is partially empty.There is partial opacification throughout the right mastoid air cells which is increased. Recommend correlation for infection or inflammation among other etiologies.IMPRESSION:No acute findings in the brain.Increased opacification of the right mastoid air cells.Recommend correlation for recent or old infection or inflammation among other etiologies.[facility]-[id number] MethodistXR Chest External Cozaa9463-16-81 08:30:12This exam was not acquired at a [facility] facility and has not been interpreted by a [facility] Provider. The exam was imported into our imaging system.[place] MethodistCT Abd/Pelvic External Study 2019-09-10 08:29:45This exam was not acquired at a [facility] facility and has not been interpreted by a [facility] Provider. The exam was imported into our imaging system.[place] MethodistManual nzcwczmidsxl1517-40-82 06:52:07 Test Item Value Reference Range Interpretation Comments Manual differential (test code = PERFORMED 02414-3) Neutrophils (test code = 50198-8) 80.0 % 39-69 H Lymphocytes (test code = 05094-4) 12.0 % 25-45 L Monocytes (test code = 93807-7) 8.0 % 0-10 Eosinophils (test code = 58126-1) 0.0 % 0-5 Basophils (test code = 97556-9) 0.0 % 0-1 Metamyelocytes (test code = 740-1) 0 % Promyelocytes (test code = 783-1) 0 % Platelet slide review (test code = Increased A 34074-9) Anisocytosis (test code = 702-1) Moderate Polychromasia (test code = 99530-8) Moderate Ovalocytes (test code = 774-0) Moderate Sandy cells (test code = 7790-9) Moderate A Lab Interpretation (test code = Abnormal 64552-2) [place] MethodistIonized yainvcu2719-89-50 22:43:52 Test Item Value Reference Range Interpretation Comments pH (test code = 2753-2) 7.44 Ionized calcium (test code = 1.15 mmol/L 1.11-1.32 ) [place] MethodistLactic acid [id number] 22:15:30 Test Item Value Reference Range Interpretation Comments Lactic acid (test code = 60953-1) 0.9 mmol/L 0.5-2.2 [place] [facility] Preliminary Interpretation - Not an Vvdow4915-98-10 04:52:18 Test Item Value Reference Range Interpretation Comments GARY (test code = GARY) Anshul Olmstead MD 09/10/2019 8:14 [facility] Preliminary Interpretation - Not an OrderPerformed by: Anshul Olmstead MDAuthorized by: Anshul Olmstead MD ECG reviewed by ED Physician in the absence of a lead assembler: yes Previous ECG: Previous ECG: Compared to current Comparison ECG info: 09/09/2019 Similarity: Changes notedInterpretation: Interpretation: abnormal Rate: ECG rate: 101 ECG rate assessment: tachycardic Rhythm: Rhythm: sinus tachycardia Ectopy: Ectopy: none QRS: QRS axis: Normal QRS intervals: NormalConduction: Conduction: normal ST segments: ST segments: NormalT waves: T waves: normal Lab Interpretation Abnormal (test code = 95142-1) [place] MethodistCRITICAL [id number] 04:52:18Anshul Olmstead MD 09/10/2019 8:14 PMCritical CarePerformed by: Anshul Olmstead MDAuthorized by: Anshul Olmstead MD Critical care provider statement: Critical care time (minutes): 35 Critical care time was exclusive of: Separately billable procedures and treating other patients and teaching time Critical care was necessary to treat or prevent imminent or life-threatening deterioration of the following conditions: hypertensive emergency. Critical care was time spent personally by me on the following activities: Development of treatment plan with patient or surrogate, discussions with consultants, discussions with primary provider, evaluation of patient's response to treatment, examination of patient, obtaining history from patient or surrogate, ordering and review of laboratory studies, ordering and performing treatments and interventions, pulse oximetry, ordering and review of radiographic studies, re-evaluation of patient's condition and review of old charts Skinny 'yes' if you are taking over critical care for this patient from another provider.: [facility]Blood [facility], aerobic & [id number] 00:03:04 Test Item Value Reference Range Interpretation Comments Blood culture No growth Specimen isolate (test after 5 days InformationSpe cimen code = 600-7) of Source: BloodS pecimen incubation. Site: [facility], [id number] 06:58:25 Test Item Value Reference Range Interpretation Comments Vancomycin, trough 22.1 ug/mL 10-20 HH Therapeut ic Ranges: (test code = 13014-0) Peak 30.0 - 40.0 ug/mL T rough 10.0 - 20.0 ug/mL Lab Interpretation Abnormal (test code = 34536-9) [facility] [id number] 16:44:45Enteric viral panelNegative for all pathogens tested:Negative for Adenovirus F 40/41Negative for AstrovirusNegative for Norovirus GI/GIINegative for Rotavirus ANegative for SapovirusThis real-time PCR assay detects the presence of nucleic acids (RNA or DNA) for the gastrointestinal pathogens listed.A result of "Not-detected" does not exclude the possibility of the presence of one or more pathogens at concentrations less than the detectable limits of the assay. Comment: Specimen InformationSpecimen Source: StoolSpecimen Site: [facility]erved [facility] bacterial [id number] 16:44:45Enteric bacterial panelNegative for all pathogens tested:Negative for SalmonellaNegative for CampylobacterNegative for Diarrheagenic E coli/ShigellaNegative for Shiga- like toxin-producing E coliNegative for Plesiomonas shigelloidesNegative for Yersinia enterocoliticaNegative for Vibrio speciesThis real-time PCR assay detects the presence of nucleic acids (RNA or DNA) for the gastrointestinal pathogens listed.A result of "Not-detected" does not exclude the possibility of the presence of one or more pathogens at concentrations less than the detectable limits of the assay. Comment: Specimen InformationSpecimen Source: StoolSpecimen [facility], 1 [id number] 12:01:00 Test Item Value Reference Range Interpretation Comments Product name (test code Apheresis Red Cell AS3 = 25) #1 LR Unit number (test code [id number] = [id number]) Product code (test code Q8883K25 = 3092) Dispense status (test Transfused code = 24) Blood expiration date (test code = 302) Blood type code (test 5100 code = 308) Blood type (test code = O POSITIVE 1314) Compatibility (test Compatible code = 6400) [facility] [id number] 10:45:24 Test Item Value Reference Range Interpretation Comments Platelet slide review (test code Iris adequate = 56192-9) [facility] Abdomen Pelvis Wo [id number] 20:28:17Hm Interface, Radiology Results - 09/01/2019 8:31 PM CSTEXAMINATION: CT ABDOMEN PELVIS WOCONTRASTCLINICAL HISTORY: Abd pain unspecifiedTECHNIQUE: Multiple axial images of the abdomen and pelvis were obtained without intravenous administration of iodinated contrast. Sagittal and coronal computerized reformatted images were also obtained. The lack of intravenous contrast reduces the sensitivity of detecting solid organ disease. Enteric contrast was not administered.CT imaging was performed with iterative reconstruction technique and/or automated exposure control reduced radiation dose.COMPARISON: August 2FINDINGS:Atelectasis within the lung bases is similar. Small pericardial effusion is unchanged.Abdomen: 1. Extensive thickening of the proximal colon is grossly stable, though suboptimally demonstrated secondary to absence of both enteric and IV contrast. Paracolic and mesenteric stranding has slightly increased, though there is no evidence of focal fluid or abscess.2. Appearance o f the bowel is otherwise unchanged.3. The gallbladder is mildly distended, though there is no intra or extrahepatic biliary or pancreatic ductal dilation.4. Hematoma inferior of the previous ileostomy site is stable in size and appearance.5. Appearance of the abdomen and pelvis is otherwise unchanged f rom the exam performed 2 days ago.Pelvis: 1. Hysterectomy. The bladder is mildly distended.2. Rectalanastomosis is similar to the prior examination without evidence of obstruction. Appearance of the pelvis is otherwise similar.IMPRESSION:Slight interval increase in right paracolic inflammation with grossly stable thickening of the right colon is nonspecific. Though ischemia cannot be excluded, thereis no evidence of pneumatosis or perforation at this time. Exam is otherwise grossly stable, though limited.[facility]-[id number] MethodistLipase yyyrh3603-82-29 16:42:39 Test Item Value Reference Range Interpretation Comments Lipase (test code = 3040-3) 12 U/L 13-60 L Lab Interpretation (test code = Abnormal 10199-3) [facility] Chest 1 Vw [id number] 16:29:01Hm Interface, Radiology Results Incoming - 09/01/2019 4:32 PM CSTSINGLE VIEW CHEST, 09/01/2019Clinical History: Abdominal pain.Technique: Single, portable AP view chest.Comparison: 08/26/2019Impression:1.Right internal jugular tunneled central venous catheter tip at the upper SVC.2.Platelike atelectasis in the lung bases. Lungs are otherwise clear..3.Cardiomegaly. 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 Otherwise, intact skeleton.[facility] MethodistUrine [id number] 10:17:37 Test Item Value Reference Range Interpretation Comments Urine culture growth after Specimen isolate (test 24 hours InformationSpe [facility] hospitalen code = 83013-4) Source: Urin eSpecimen Site: [place] MethodistGram [id number] 10:17:37 Test Item Value Reference Range Interpretation Comments Gram stain No WBC's or Specimen result (test organisms seen. InformationS pecimen code = 664-3) Source: UrineS pecimen Site: [place] MethodistAntibody [id number] 04:42:00 Test Item Value Reference Range Interpretation Comments Antibody ID (test code = POS, Anti-[place] 94515-1) [facility] MethodistType and [id number] 03:14:00 Test Item Value Reference Range Interpretation Comments ABO grouping (test code = 883-9) O Rh type (test code = 60388-7) POS Antibody screen (gel) (test code = POS 890-4) [facility] MethodistUrinalysis screen and microscopy, with reflex to culture 2019-08-31 02:56:35 Test Item Value Reference Range Interpretation Comments Specimen site (test code = 1231284) Flower Color, UA (test code = 5778-6) Yellow Appearance, UA (test code = 5767-9) Clear Specific gravity, UA (test code = 1.012 1.001-1.035 5811-5) pH, UA (test code = 5803-2) 9.0 5.0-8.5 Protein, UA (test code = 61856-3) 1+ Negative A Glucose, UA (test code = 46534-6) Negative Negative Ketones, UA (test code = 2514-8) Negative Negative Bilirubin, UA (test code = 5770-3) Negative Negative Blood, UA (test code = 5794-3) Small Negative A Nitrite, UA (test code = 5802-4) Negative Negative Urobilinogen, UA (test code = <2.0 <2.0 86030-5) Leukocyte esterase, UA (test code = Trace Negative A 5799-2) WBC, UA (test code = 5821-4) 11 0- 4 /HPF H RBC, UA (test code = 11948-1) 2 0- 5 /HPF Bacteria, UA (test code = 06251-6) Few None seen Yeast, UA (test code = 84064-6) None seen Yeast with pseudohyphae, UA (test None seen code = 25802-7) Lab Interpretation (test code = Abnormal 32025-4) [facility] MethodistPartial thromboplastin time, qjitklozd6418-23-74 02:24:29 Test Item Value Reference Range Interpretation Comments PTT (test code = 31.2 23.0- 36.0 [place] [address]-6) unfractionated heparin is61.0-112.0 se conds which corresponds to Anti-Xa0.3-0.7 U/ml. [facility] MethodistProthrombin time with [id number] 02:24:22 Test Item Value Reference Range Interpretation Comments Prothrombin time (test 16.6 11.5- 14.5 sec H code = 5902-2) INR (test code = 1.3 [facility] 61828-5) Normalized Rati o (INR) is a therapeuti c monitoring tool for patients who ar e stable on oral anticoagulant t herapy. An INR of 2.0-3 .0 is suggested for d eep vein thrombosis/pulm onary embolism. Lab Interpretation Abnormal (test code = 37025-3) [facility] VvjqgqrcrXbyeqpiukc6808-49-06 02:23:40 Test Item Value Reference Range Interpretation Comments Fibrinogen (test code = 78244-8) 502 mg/dL 200-450 H Lab Interpretation (test code = Abnormal 08538-7) [facility] MethodistHemoglobin & qpzvbbwzib4842-28-24 18:42:36 Test Item Value Reference Range Interpretation Comments HGB (test code = 718-7) 8.6 g/dL 12-16 L HCT (test code = 4544-3) 26.6 % 37-47 L Lab Interpretation (test code = Abnormal 69424-6) [facility] MethodistBLOOD [id number] 17:01:00 Test Item Value Reference Range Interpretation Comments CULTURE (BEAKER) (test No growth in 5 days code = 1095) LUPUS ANTICOAGULANT SCREEN WITH REFLEX TO [id number] 16:08:00 Test Item Value Reference Range Interpretation Comments DRVV SCREEN RATIO 1.55 <1.20 H (BEAKER) (test code = 2707) DRVV CONFIRM RATIO 0.93 (test code = 2709) DRVV NORMALIZED RATIO 1.67 <1.20 H (test code = 2710) DRVV INTERPRETATION Positive screen for (BEAKER) (test code = Lupus Anticoagulant 0496) with hexagonal phospholipid confirmation. Suggest repeat testing in 12 weeks and when patient not receiving anticoagulant therapy. PROTIME (BEAKER) (test 15.0 seconds 11.7-14.7 H code = 759) INR (BEAKER) (test code 1.2 <=5.9 = 370) PARTIAL THROMBOPLASTIN 36.1 seconds 22.5-36.0 H TIME (BEAKER) (test code = 760) PTT-LA (BEAKER) (test 45.2 32.0-41.8 H code = 2194093789) [id number] Cindy Chavira MD (BEAKER) (test code = (electronic signature) 5056) HEXAGONAL [id number] 14:08:00 Test Item Value Reference Range Interpretation Comments HEXAGONAL PHOSPHOLIPID (BEAKER) Positive (test code = 1790) BLOOD [id number] 10:01:00 Test Item Value Reference Range Interpretation Comments CULTURE (BEAKER) (test No growth in 5 days code = 1095) DOUBLE-STRANDED DNA (DSDNA) [id number] 05:52:00 Test Item Value Reference Range Interpretation Comments ANTI-DNA DS (BEAKER) (test code = Negative 7925) CARDIOLIPIN ANTIBODIES, IGG AND [id number] 15:01:00 Test Item Value Reference Range Interpretation Comments ANTICARDIOLIPIN IGG ANTIBODY (BEAKER) < GPL <20.0 (test code = 712) ANTICARDIOLIPIN IGM ANTIBODY (BEAKER) 2.1 MPL <20.0 (test code = 713) Anticardiolipin IgG Result Interpretation: <20.0 GPL Normal>/= 20.0 GPL PositiveAnticardiolipin IgM Result Interpretation: <20.0 MPL Normal>/= 20.0 MPL PositiveCALCIUM, [id number] 05:12:00 Test Item Value Reference Range Interpretation Comments CALCIUM IONIZED (BEAKER) (test 1.01 mmol/L 1.12-1.27 L code = 698) PH, BLOOD (BEAKER) (test code = 7.45 6900) POCT-GLUCOSE [id number] 21:30:00 Test Item Value Reference Range Interpretation Comments POC-GLUCOSE METER 116 mg/dL 70-110 H TESTED AT [facility] (BEAKER) (test code = [place] 1538) [address] POCT-GLUCOSE [id number] 17:32:00 Test Item Value Reference Range Interpretation Comments POC-GLUCOSE METER 125 mg/dL 70-110 H TESTED AT [facility] (BEAKER) (test code = [place] 1538) [address] POCT-GLUCOSE [id number] 11:28:00 Test Item Value Reference Range Interpretation Comments POC-GLUCOSE METER 115 mg/dL 70-110 H TESTED AT [facility] (BEAKER) (test code = [place] 1538) [address] POCT-GLUCOSE [id number] 07:41:00 Test Item Value Reference Range Interpretation Comments POC-GLUCOSE METER 108 mg/dL 70-110 TESTED AT [facility] (BEAKER) (test code = [place] 1538) [address] [id number] 07:06:00 Test Item Value Reference Range Interpretation Comments MAGNESIUM (BEAKER) 1.8 mg/dL 1.6-2.6 Specimen slightly (test code = 627) hemolyzed [id number] 07:06:00 Test Item Value Reference Range Interpretation Comments PHOSPHORUS (BEAKER) 2.4 mg/dL 2.3-4.7 Specimen slightly (test code = 604) hemolyzed COMPREHENSIVE METABOLIC [id number] 07:06:00 Test Item Value Reference Range Interpretation Comments TOTAL PROTEIN 7.5 gm/dL 6.0-8.3 Specimen sligh tly (BEAKER) (test code = hemoly zed 770) ALBUMIN (BEAKER) 3.7 g/dL 3.5-5.0 Specimen sl ightly (test code = 1145) hemolyzed ALKALINE PHOSPHATASE 118 U/L 40-150 (BEAKER) (test code = 346) BILIRUBIN TOTAL 0.6 mg/dL 0.2-1.2 Specimen sli ghtly (BEAKER) (test code = hemoly zed 377) SODIUM (BEAKER) (test 141 meq/L 136-145 code = 381) POTASSIUM (BEAKER) 3.3 meq/L 3.5-5.1 L Specimen slightly (test code = 379) hemolyzed CHLORIDE (BEAKER) 112 meq/L 98-107 H (test code = 382) CO2 (BEAKER) (test 20 meq/L 22-29 L code = 355) BLOOD UREA NITROGEN 17 mg/dL 7-21 (BEAKER) (test code = 354) CREATININE (BEAKER) 1.53 mg/dL 0.57-1.25 H Specimen slightly (test code = 358) hemolyzed GLUCOSE RANDOM 102 mg/dL 70-105 (BEAKER) (test code = 652) CALCIUM (BEAKER) 9.0 mg/dL 8.4-10.2 (test code = 697) AST (SGOT) (BEAKER) 30 U/L 5-34 Specimen slightly (test code = 353) hemolyzed ALT (SGPT) (BEAKER) 12 U/L 6-55 Specimen slightly (test code = 347) hemolyzed EGFR (BEAKER) (test 44 mL/min/1.73 ESTIMA OTF GFR IS code = 1092) sq m NOT ACCURATE CREATININE CLEARANCE IN PREDICTING GLOMERULAR FILTRATION RATE . ESTIMATED GFR I S NOT APPLICABLE FOR DIALYSIS PATIEN TS. HEPATIC FUNCTION [id number] 07:06:00 Test Item Value Reference Range Interpretation Comments TOTAL PROTEIN (BEAKER) 7.5 gm/dL 6.0-8.3 Speci men slightly (test code = 770) hemolyzed ALBUMIN (BEAKER) (test 3.7 g/dL 3.5-5.0 Speci men slightly code = 1145) hemolyzed BILIRUBIN TOTAL 0.6 mg/dL 0.2-1.2 Specimen sli ghtly (BEAKER) (test code = hemoly zed 377) BILIRUBIN DIRECT 0.3 mg/dL 0.1-0.5 Specimen sl ightly (BEAKER) (test code = hemoly zed 706) ALKALINE PHOSPHATASE 118 U/L 40-150 (BEAKER) (test code = 346) AST (SGOT) (BEAKER) 30 U/L 5-34 Specimen slightly (test code = 353) hemolyzed ALT (SGPT) (BEAKER) 12 U/L 6-55 Specimen slightly (test code = 347) hemolyzed CALCIUM, [id number] 06:42:00 Test Item Value Reference Range Interpretation Comments CALCIUM IONIZED (BEAKER) (test 1.16 mmol/L 1.12-1.27 code = 698) PH, BLOOD (BEAKER) (test code = 7.42 1810) CBC W/PLT COUNT & AUTO [id number] 05:10:00 Test Item Value Reference Range Interpretation Comments WHITE BLOOD CELL COUNT (BEAKER) 5.9 K/ L 3.5-10.5 (test code = 775) RED BLOOD CELL COUNT (BEAKER) 3.45 M/ L 3.93-5.22 L (test code = 761) HEMOGLOBIN (BEAKER) (test code = 9.1 GM/DL 11.2-15.7 L 410) HEMATOCRIT (BEAKER) (test code = 28.8 % 34.1-44.9 L 411) MEAN CORPUSCULAR VOLUME (BEAKER) 83.5 fL 79.4-94.8 (test code = 753) MEAN CORPUSCULAR HEMOGLOBIN 26.4 pg 25.6-32.2 (BEAKER) (test code = 751) MEAN CORPUSCULAR HEMOGLOBIN CONC 31.6 GM/DL 32.2-35.5 L (BEAKER) (test code = 752) RED CELL DISTRIBUTION WIDTH 14.4 % 11.7-14.4 (BEAKER) (test code = 412) PLATELET COUNT (BEAKER) (test 220 K/CU MM 150-450 code = 756) MEAN PLATELET VOLUME (BEAKER) 9.7 fL 9.4-12.3 (test code = 754) NUCLEATED RED BLOOD CELLS 0 /100 WBC 0-0 (BEAKER) (test code = 413) NEUTROPHILS RELATIVE PERCENT 53 % (BEAKER) (test code = 429) LYMPHOCYTES RELATIVE PERCENT 25 % (BEAKER) (test code = 430) MONOCYTES RELATIVE PERCENT 14 % (BEAKER) (test code = 431) EOSINOPHILS RELATIVE PERCENT 8 % (BEAKER) (test code = 432) BASOPHILS RELATIVE PERCENT 1 % (BEAKER) (test code = 437) NEUTROPHILS ABSOLUTE COUNT 3.09 K/ L 1.56-6.13 (BEAKER) (test code = 670) LYMPHOCYTES ABSOLUTE COUNT 1.46 K/ L 1.18-3.74 (BEAKER) (test code = 414) MONOCYTES ABSOLUTE COUNT (BEAKER) 0.79 K/ L 0.24-0.36 H (test code = 415) EOSINOPHILS ABSOLUTE COUNT 0.46 K/ L 0.04-0.36 H (BEAKER) (test code = 416) BASOPHILS ABSOLUTE COUNT (BEAKER) 0.05 K/ L 0.01-0.08 (test code = 417) IMMATURE GRANULOCYTES-RELATIVE 0 % 0-1 PERCENT (BEAKER) (test code = 2801) POCT-GLUCOSE [id number] 23:12:00 Test Item Value Reference Range Interpretation Comments POC-GLUCOSE METER 95 mg/dL 70-110 TESTED AT [place] [address] ([facility]) (test code = JOB Osei [facility] [address]) POCT-GLUCOSE [id number] 18:51:00 Test Item Value Reference Range Interpretation Comments POC-GLUCOSE METER 118 mg/dL 70-110 H TESTED AT [place] [address] ([facility]) (test code = [place] [facility] 1538) [address] HEMOGLOBIN AND [id number] 16:28:00 Test Item Value Reference Range Interpretation Comments HEMOGLOBIN ([facility]) (test code = 8.7 GM/DL 11.2-15.7 L 410) HEMATOCRIT ([facility]) (test code = 27.8 % 34.1-44.9 L 411) POCT-GLUCOSE [id number] 15:00:00 Test Item Value Reference Range Interpretation Comments POC-GLUCOSE METER 140 mg/dL 70-110 H TESTED AT [place] [address] ([facility]) (test code = [place] [facility] 1538) [address] POCT-GLUCOSE [id number] 14:46:00 Test Item Value Reference Range Interpretation Comments POC-GLUCOSE METER 44 mg/dL 70-110 L Notified R Dandre WALTER/TESTED AT ([facility]) (test code = [address] [address]) [facility] [address] POCT-GLUCOSE [id number] 13:05:00 Test Item Value Reference Range Interpretation Comments POC-GLUCOSE METER 87 mg/dL 70-110 TESTED AT [place] [address] ([facility]) (test code = JOB Osei [facility] [address]) POCT-GLUCOSE [id number] 11:57:00 Test Item Value Reference Range Interpretation Comments POC-GLUCOSE METER 65 mg/dL 70-110 L Notified R N MD/TESTED AT ([facility]) (test code = [place] [address]) [place] [id number] VANCOMYCIN LEVEL, [id number] 10:58:00 Test Item Value Reference Range Interpretation Comments VANCOMYCIN TROUGH ([facility]) (test 14.2 ug/mL 10.0-20.0 code = 522) RAD, ABDOMEN/KUB, 1 VIEW [id number] 09:41:00Reason for exam:->abdominal painFINAL REPORT AP abdomen, two images HISTORY: Abdominal pain COMPARISON: 07/28/2013 IMPRESSION:Grossly nonobstructive bowel gas pattern. Intact skeleton. Signed: Vikas Guillen MDReport Verified Date/Time: 07/30/2018 09:41:59 Reading Location: [address] Ortho Consult ReadingRoom POCT-GLUCOSE [id number] 07:59:00 Test Item Value Reference Range Interpretation Comments POC-GLUCOSE METER 87 mg/dL 70-110 TESTED AT [facility] 67[facility] ([facility]) (test code = JOB [place]se[place] [facility] [address]) CALCIUM, [id number] 06:53:00 Test Item Value Reference Range Interpretation Comments CALCIUM IONIZED (BEAKER) (test 1.12 mmol/L 1.12-1.27 code = 698) PH, BLOOD (BEAKER) (test code = 7.44 1810) [id number] 06:38:00 Test Item Value Reference Range Interpretation Comments PHOSPHORUS (BEAKER) (test code = 2.7 mg/dL 2.3-4.7 604) [id number] 06:38:00 Test Item Value Reference Range Interpretation Comments MAGNESIUM (BEAKER) (test code = 1.6 mg/dL 1.6-2.6 627) HEPATIC FUNCTION [id number] 06:38:00 Test Item Value Reference Range Interpretation Comments TOTAL PROTEIN (BEAKER) (test code = 6.8 gm/dL 6.0-8.3 770) ALBUMIN (BEAKER) (test code = 1145) 3.4 g/dL 3.5-5.0 L BILIRUBIN TOTAL (BEAKER) (test code 0.5 mg/dL 0.2-1.2 = 377) BILIRUBIN DIRECT (BEAKER) (test 0.2 mg/dL 0.1-0.5 code = 706) ALKALINE PHOSPHATASE (BEAKER) (test 118 U/L 40-150 code = 346) AST (SGOT) (BEAKER) (test code = 22 U/L 5-34 353) ALT (SGPT) (BEAKER) (test code = 9 U/L 6-55 347) COMPREHENSIVE METABOLIC [id number] 06:38:00 Test Item Value Reference Range Interpretation Comments TOTAL PROTEIN 6.8 gm/dL 6.0-8.3 (BEAKER) (test code = 770) ALBUMIN (BEAKER) 3.4 g/dL 3.5-5.0 L (test code = 1145) ALKALINE PHOSPHATASE 118 U/L 40-150 (BEAKER) (test code = 346) BILIRUBIN TOTAL 0.5 mg/dL 0.2-1.2 (BEAKER) (test code = 377) SODIUM (BEAKER) (test 138 meq/L 136-145 code = 381) POTASSIUM (BEAKER) 3.3 meq/L 3.5-5.1 L (test code = 379) CHLORIDE (BEAKER) 111 meq/L 98-107 H (test code = 382) CO2 (BEAKER) (test 18 meq/L 22-29 L code = 355) BLOOD UREA NITROGEN 29 mg/dL 7-21 H (BEAKER) (test code = 354) CREATININE (BEAKER) 1.79 mg/dL 0.57-1.25 H (test code = 358) GLUCOSE RANDOM 86 mg/dL 70-105 (BEAKER) (test code = 652) CALCIUM (BEAKER) 8.6 mg/dL 8.4-10.2 (test code = 697) AST (SGOT) (BEAKER) 22 U/L 5-34 (test code = 353) ALT (SGPT) (BEAKER) 9 U/L 6-55 (test code = 347) EGFR (BEAKER) (test 37 mL/min/1.73 ESTIMA OTF GFR IS code = 1092) sq m NOT ACCURATE CREATININE CLEARANCE IN PREDICTING GLOMERULAR FILTRATION RATE . ESTIMATED GFR I S NOT APPLICABLE FOR DIALYSIS PATIEN TS. CBC W/PLT COUNT & AUTO [id number] 06:11:00 Test Item Value Reference Range Interpretation Comments WHITE BLOOD CELL COUNT (BEAKER) 7.6 K/ L 3.5-10.5 (test code = 775) RED BLOOD CELL COUNT (BEAKER) 3.60 M/ L 3.93-5.22 L (test code = 761) HEMOGLOBIN (BEAKER) (test code = 9.4 GM/DL 11.2-15.7 L 410) HEMATOCRIT (BEAKER) (test code = 30.1 % 34.1-44.9 L 411) MEAN CORPUSCULAR VOLUME (BEAKER) 83.6 fL 79.4-94.8 (test code = 753) MEAN CORPUSCULAR HEMOGLOBIN 26.1 pg 25.6-32.2 (BEAKER) (test code = 751) MEAN CORPUSCULAR HEMOGLOBIN CONC 31.2 GM/DL 32.2-35.5 L (BEAKER) (test code = 752) RED CELL DISTRIBUTION WIDTH 14.6 % 11.7-14.4 H (BEAKER) (test code = 412) PLATELET COUNT (BEAKER) (test 221 K/CU MM 150-450 code = 756) MEAN PLATELET VOLUME (BEAKER) 9.7 fL 9.4-12.3 (test code = 754) NUCLEATED RED BLOOD CELLS 0 /100 WBC 0-0 (BEAKER) (test code = 413) NEUTROPHILS RELATIVE PERCENT 66 % (BEAKER) (test code = 429) LYMPHOCYTES RELATIVE PERCENT 18 % (BEAKER) (test code = 430) MONOCYTES RELATIVE PERCENT 12 % (BEAKER) (test code = 431) EOSINOPHILS RELATIVE PERCENT 3 % (BEAKER) (test code = 432) BASOPHILS RELATIVE PERCENT 1 % (BEAKER) (test code = 437) NEUTROPHILS ABSOLUTE COUNT 5.00 K/ L 1.56-6.13 (BEAKER) (test code = 670) LYMPHOCYTES ABSOLUTE COUNT 1.35 K/ L 1.18-3.74 (BEAKER) (test code = 414) MONOCYTES ABSOLUTE COUNT (BEAKER) 0.87 K/ L 0.24-0.36 H (test code = 415) EOSINOPHILS ABSOLUTE COUNT 0.22 K/ L 0.04-0.36 (BEAKER) (test code = 416) BASOPHILS ABSOLUTE COUNT (BEAKER) 0.07 K/ L 0.01-0.08 (test code = 417) IMMATURE GRANULOCYTES-RELATIVE 1 % 0-1 PERCENT (BEAKER) (test code = 2801) POCT-GLUCOSE [id number] 21:38:00 Test Item Value Reference Range Interpretation Comments POC-GLUCOSE METER 96 mg/dL 70-110 TESTED AT [facility] (BEAKER) (test code = JOB [place]se[place] [facility] [address]38) POCT-GLUCOSE [id number] 18:19:00 Test Item Value Reference Range Interpretation Comments POC-GLUCOSE METER 121 mg/dL 70-110 H TESTED AT [facility] ([facility]) (test code = [facility] [place] [facility] 1538) [address] T4, [id number] 12:35:00 Test Item Value Reference Range Interpretation Comments FREE T4 ([facility]) (test code = 655) 1.25 ng/dL 0.70-1.48 POCT-GLUCOSE [id number] 12:27:00 Test Item Value Reference Range Interpretation Comments POC-GLUCOSE METER 127 mg/dL 70-110 H TESTED AT [facility] ([facility]) (test code = [facility] 1538) [address] TSH/FREE T4 IF [id number] 12:07:00 Test Item Value Reference Range Interpretation Comments THYROID STIMULATING HORMONE 0.25 uIU/mL 0.35-4.94 L ([facility]) (test code = 772) [id number] 12:07:00 Test Item Value Reference Range Interpretation Comments THYROID STIMULATING HORMONE 0.25 uIU/mL 0.35-4.94 L ([facility]) (test code = 772) LACTIC ACID, VENOUS, WHOLE [id number] 11:35:00 Test Item Value Reference Range Interpretation Comments LACTATE BLOOD VENOUS 0.6 mmol/L 0.5-2.2 Specime n slightly (2) ([facility]) (test hemolyzed code = 2872) VANCOMYCIN LEVEL, [id number] 07:11:00 Test Item Value Reference Range Interpretation Comments VANCOMYCIN RANDOM ([facility]AKER) (test 17.9 ug/mL code = 523) Reference Range: No [id number] 07:09:00 Test Item Value Reference Range Interpretation Comments PHOSPHORUS ([facility]) (test code = 3.9 mg/dL 2.3-4.7 604) [id number] 07:09:00 Test Item Value Reference Range Interpretation Comments MAGNESIUM (BEAKER) (test code = 1.7 mg/dL 1.6-2.6 627) BASIC METABOLIC [id number] 07:09:00 Test Item Value Reference Range Interpretation Comments SODIUM (BEAKER) 143 meq/L 136-145 (test code = 381) POTASSIUM (BEAKER) 3.3 meq/L 3.5-5.1 L (test code = 379) CHLORIDE (BEAKER) 116 meq/L 98-107 H (test code = 382) CO2 (BEAKER) (test 16 meq/L 22-29 L code = 355) BLOOD UREA NITROGEN 39 mg/dL 7-21 H (BEAKER) (test code = 354) CREATININE (BEAKER) 2.09 mg/dL 0.57-1.25 H (test code = 358) GLUCOSE RANDOM 121 mg/dL 70-105 H (BEAKER) (test code = 652) CALCIUM (BEAKER) 8.6 mg/dL 8.4-10.2 (test code = 697) EGFR (BEAKER) (test 31 mL/min/1.73 ESTIMA OTF GFR IS code = 1092) sq m NOT ACCURATE CREATININE CLEARANCE IN PREDICTING GLOMERULAR FILTRATION RATE . ESTIMATED GFR I S NOT APPLICABLE FOR DIALYSIS PATIEN TS. HEPATIC FUNCTION [id number] 07:09:00 Test Item Value Reference Range Interpretation Comments TOTAL PROTEIN (BEAKER) (test code = 7.0 gm/dL 6.0-8.3 770) ALBUMIN (BEAKER) (test code = 1145) 3.4 g/dL 3.5-5.0 L BILIRUBIN TOTAL (BEAKER) (test code 0.4 mg/dL 0.2-1.2 = 377) BILIRUBIN DIRECT (BEAKER) (test 0.2 mg/dL 0.1-0.5 code = 706) ALKALINE PHOSPHATASE (BEAKER) (test 131 U/L 40-150 code = 346) AST (SGOT) (BEAKER) (test code = 20 U/L 5-34 353) ALT (SGPT) (BEAKER) (test code = 10 U/L 6-55 347) TROPONIN [id number] 06:54:00 Test Item Value Reference Range Interpretation Comments TROPONIN I (BEAKER) (test code = 0.08 ng/mL 0.00-0.03 H 397) LACTIC ACID, VENOUS, WHOLE [id number] 06:45:00 Test Item Value Reference Range Interpretation Comments LACTATE BLOOD VENOUS 0.8 mmol/L 0.5-2.2 Specime n slightly (2) (BEAKER) (test hemolyzed code = 2872) CBC W/PLT COUNT & AUTO [id number] 06:00:00 Test Item Value Reference Range Interpretation Comments WHITE BLOOD CELL COUNT (BEAKER) 7.4 K/ L 3.5-10.5 (test code = 775) RED BLOOD CELL COUNT (BEAKER) 4.02 M/ L 3.93-5.22 (test code = 761) HEMOGLOBIN (BEAKER) (test code = 10.6 GM/DL 11.2-15.7 L 410) HEMATOCRIT (BEAKER) (test code = 33.3 % 34.1-44.9 L 411) MEAN CORPUSCULAR VOLUME (BEAKER) 82.8 fL 79.4-94.8 (test code = 753) MEAN CORPUSCULAR HEMOGLOBIN 26.4 pg 25.6-32.2 (BEAKER) (test code = 751) MEAN CORPUSCULAR HEMOGLOBIN CONC 31.8 GM/DL 32.2-35.5 L (BEAKER) (test code = 752) RED CELL DISTRIBUTION WIDTH 14.6 % 11.7-14.4 H (BEAKER) (test code = 412) PLATELET COUNT (BEAKER) (test 267 K/CU MM 150-450 code = 756) MEAN PLATELET VOLUME (BEAKER) 9.7 fL 9.4-12.3 (test code = 754) NUCLEATED RED BLOOD CELLS 0 /100 WBC 0-0 (BEAKER) (test code = 413) NEUTROPHILS RELATIVE PERCENT 69 % (BEAKER) (test code = 429) LYMPHOCYTES RELATIVE PERCENT 15 % (BEAKER) (test code = 430) MONOCYTES RELATIVE PERCENT 15 % (BEAKER) (test code = 431) EOSINOPHILS RELATIVE PERCENT 0 % (BEAKER) (test code = 432) BASOPHILS RELATIVE PERCENT 0 % (BEAKER) (test code = 437) NEUTROPHILS ABSOLUTE COUNT 5.14 K/ L 1.56-6.13 (BEAKER) (test code = 670) LYMPHOCYTES ABSOLUTE COUNT 1.12 K/ L 1.18-3.74 L (BEAKER) (test code = 414) MONOCYTES ABSOLUTE COUNT (BEAKER) 1.12 K/ L 0.24-0.36 H (test code = 415) EOSINOPHILS ABSOLUTE COUNT 0.01 K/ L 0.04-0.36 L (BEAKER) (test code = 416) BASOPHILS ABSOLUTE COUNT (BEAKER) 0.03 K/ L 0.01-0.08 (test code = 417) IMMATURE GRANULOCYTES-RELATIVE 0 % 0-1 PERCENT (BEAKER) (test code = 2801) CALCIUM, [id number] 05:58:00 Test Item Value Reference Range Interpretation Comments CALCIUM IONIZED (BEAKER) (test 1.12 mmol/L 1.12-1.27 code = 698) PH, BLOOD (BEAKER) (test code = 7.39 1810) EOSINOPHIL SMEAR, [id number] 20:17:00 Test Item Value Reference Range Interpretation Comments EOSINOPHIL SMEAR, URINE (BEAKER) No EOS seen No EOS seen (test code = 1851) BASIC METABOLIC [id number] 20:01:00 Test Item Value Reference Range Interpretation Comments SODIUM (BEAKER) 144 meq/L 136-145 (test code = 381) POTASSIUM (BEAKER) 3.2 meq/L 3.5-5.1 L (test code = 379) CHLORIDE (BEAKER) 114 meq/L 98-107 H (test code = 382) CO2 (BEAKER) (test 18 meq/L 22-29 L code = 355) BLOOD UREA NITROGEN 42 mg/dL 7-21 H (BEAKER) (test code = 354) CREATININE (BEAKER) 2.14 mg/dL 0.57-1.25 H (test code = 358) GLUCOSE RANDOM 141 mg/dL 70-105 H (BEAKER) (test code = 652) CALCIUM (BEAKER) 8.9 mg/dL 8.4-10.2 (test code = 697) EGFR (BEAKER) (test 30 mL/min/1.73 ESTIMA OTF GFR IS code = 1092) sq m NOT ACCURATE CREATININE CLEARANCE IN PREDICTING GLOMERULAR FILTRATION RATE . ESTIMATED GFR I S NOT APPLICABLE FOR DIALYSIS PATIEN TS. LACTIC ACID, VENOUS, WHOLE [id number] 19:59:00 Test Item Value Reference Range Interpretation Comments LACTATE BLOOD VENOUS 0.8 mmol/L 0.5-2.2 Specime n slightly (2) (BEAKER) (test hemolyzed code = 3592) CT, BRAIN/STROKE [id number] 19:59:00Stroke Protocol. 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 Signed: Waqar Fink Verified Date/Time: 07/28/2018 19:59:01 Reading Location: [facility] Radiology Reading Room [id number] 19:51:00 Test Item Value Reference Range Interpretation Comments PARTIAL THROMBOPLASTIN TIME 33.1 seconds 22.5-36.0 (BEAKER) (test code = 760) PROTHROMBIN [id number] 19:50:00 Test Item Value Reference Range Interpretation Comments PROTIME (BEAKER) (test code = 15.6 seconds 11.7-14.7 H 759) INR (BEAKER) (test code = 370) 1.2 <=5.9 RECOMMENDED COUMADIN/WARFARIN INR THERAPY RANGESSTANDARD DOSE: 2.0 - 3.0 Includes: PROPHYLAXIS forvenous thrombosis, systemic embolization; TREATMENT for venous thrombosis and/or pulmonary embolus.HIGH RISK: Target INR is 2.5-3.5 for patients with mechanical heart valves.HEMOGLOBIN AND [id number] 19:41:00 Test Item Value Reference Range Interpretation Comments HEMOGLOBIN (BEAKER) (test code = 11.3 GM/DL 11.2-15.7 410) HEMATOCRIT (BEAKER) (test code = 35.4 % 34.1-44.9 411) CBC W/PLT COUNT & AUTO [id number] 19:41:00 Test Item Value Reference Range Interpretation Comments WHITE BLOOD CELL COUNT (BEAKER) 6.8 K/ L 3.5-10.5 (test code = 775) RED BLOOD CELL COUNT (BEAKER) 4.36 M/ L 3.93-5.22 (test code = 761) HEMOGLOBIN (BEAKER) (test code = 11.3 GM/DL 11.2-15.7 410) HEMATOCRIT (BEAKER) (test code = 35.4 % 34.1-44.9 411) MEAN CORPUSCULAR VOLUME (BEAKER) 81.2 fL 79.4-94.8 (test code = 753) MEAN CORPUSCULAR HEMOGLOBIN 25.9 pg 25.6-32.2 (BEAKER) (test code = 751) MEAN CORPUSCULAR HEMOGLOBIN CONC 31.9 GM/DL 32.2-35.5 L (BEAKER) (test code = 752) RED CELL DISTRIBUTION WIDTH 14.2 % 11.7-14.4 (BEAKER) (test code = 412) PLATELET COUNT (BEAKER) (test 263 K/CU MM 150-450 code = 756) MEAN PLATELET VOLUME (BEAKER) 9.4 fL 9.4-12.3 (test code = 754) NUCLEATED RED BLOOD CELLS 0 /100 WBC 0-0 (BEAKER) (test code = 413) NEUTROPHILS RELATIVE PERCENT 78 % (BEAKER) (test code = 429) LYMPHOCYTES RELATIVE PERCENT 10 % (BEAKER) (test code = 430) MONOCYTES RELATIVE PERCENT 11 % (BEAKER) (test code = 431) EOSINOPHILS RELATIVE PERCENT 0 % (BEAKER) (test code = 432) BASOPHILS RELATIVE PERCENT 0 % (BEAKER) (test code = 437) NEUTROPHILS ABSOLUTE COUNT 5.35 K/ L 1.56-6.13 (BEAKER) (test code = 670) LYMPHOCYTES ABSOLUTE COUNT 0.70 K/ L 1.18-3.74 L (BEAKER) (test code = 414) MONOCYTES ABSOLUTE COUNT (BEAKER) 0.76 K/ L 0.24-0.36 H (test code = 415) EOSINOPHILS ABSOLUTE COUNT 0.00 K/ L 0.04-0.36 L (BEAKER) (test code = 416) BASOPHILS ABSOLUTE COUNT (BEAKER) 0.01 K/ L 0.01-0.08 (test code = 417) IMMATURE GRANULOCYTES-RELATIVE 0 % 0-1 PERCENT (BEAKER) (test code = 2801) TROPONIN [id number] 19:26:00 Test Item Value Reference Range Interpretation Comments TROPONIN I (BEAKER) (test code = 0.11 ng/mL 0.00-0.03 H 397) PROTEIN, RANDOM [id number] 19:19:00 Test Item Value Reference Range Interpretation Comments PROTEIN, URINE (BEAKER) (test code 325 mg/dL 0-14 H = 1569) POCT-GLUCOSE [id number] 19:00:00 Test Item Value Reference Range Interpretation Comments POC-GLUCOSE METER 158 mg/dL 70-110 H TESTED AT [facility] (BEAKER) (test code = [place] [address]) [address] CREATININE, RANDOM [id number] 18:52:00 Test Item Value Reference Range Interpretation Comments CREATININE URINE (BEAKER) (test 95.8 mg/dL code = 375) Reference Range: No NormalsSODIUM, RANDOM [id number] 18:52:00 Test Item Value Reference Range Interpretation Comments SODIUM URINE (BEAKER) (test code = 28 meq/L 243) Reference Range: No NormalsURINALYSIS W/ [id number] 18:02:00 Test Item Value Reference Range Interpretation Comments COLOR (BEAKER) (test code Yellow = 470) CLARITY (BEAKER) (test Clear code = 469) SPECIFIC GRAVITY UA 1.014 1.001-1.035 (BEAKER) (test code = 468) PH UA (BEAKER) (test code 5.5 5.0-8.0 = 467) PROTEIN UA (BEAKER) (test 300 mg/dL Negative A code = 464) GLUCOSE UA (BEAKER) (test Negative Negative code = 365) KETONES UA (BEAKER) (test Negative Negative code = 371) BILIRUBIN UA (BEAKER) Negative Negative (test code = 462) BLOOD UA (BEAKER) (test Trace Negative A code = 461) NITRITE UA (BEAKER) (test Negative Negative code = 465) LEUKOCYTE ESTERASE UA Negative Negative (BEAKER) (test code = 466) UROBILINOGEN UA (BEAKER) 0.2 mg/dL 0.2-1.0 (test code = 463) RBC UA (BEAKER) (test code 21 /HPF = 519) WBC UA (BEAKER) (test code 1 /HPF = 520) MUCUS (BEAKER) (test code Rare = 1574) SQUAMOUS EPITHELIAL < /HPF (BEAKER) (test code = 516) HYALINE CASTS (BEAKER) 1 /LPF (test code = 514) SOURCE(BEAKER) (test code Urine, Clean Catch = 2795) POCT-GLUCOSE [id number] 17:21:00 Test Item Value Reference Range Interpretation Comments POC-GLUCOSE METER 137 mg/dL 70-110 H TESTED AT [facility] [address] (BEAKER) (test code = [place] [address]) [id number] BASIC METABOLIC [id number] 17:14:00 Test Item Value Reference Range Interpretation Comments SODIUM (BEAKER) 146 meq/L 136-145 H (test code = 381) POTASSIUM (BEAKER) 3.3 meq/L 3.5-5.1 L (test code = 379) CHLORIDE (BEAKER) 114 meq/L 98-107 H (test code = 382) CO2 (BEAKER) (test 20 meq/L 22-29 L code = 355) BLOOD UREA NITROGEN 41 mg/dL 7-21 H (BEAKER) (test code = 354) CREATININE (BEAKER) 2.12 mg/dL 0.57-1.25 H (test code = 358) GLUCOSE RANDOM 135 mg/dL 70-105 H (BEAKER) (test code = 652) CALCIUM (BEAKER) 8.9 mg/dL 8.4-10.2 (test code = 697) EGFR (BEAKER) (test 30 mL/min/1.73 ESTIMA OTF GFR IS code = 1092) sq m NOT ACCURATE CREATININE CLEARANCE IN PREDICTING GLOMERULAR FILTRATION RATE . ESTIMATED GFR I S NOT APPLICABLE FOR DIALYSIS PATIEN TS. Call results [id number] ACID, VENOUS, WHOLE [id number] 14:19:00 Test Item Value Reference Range Interpretation Comments LACTATE BLOOD VENOUS (2) (BEAKER) 1.1 mmol/L 0.5-2.2 (test code = 2872) THROMBIN [id number] 13:02:00 Test Item Value Reference Range Interpretation Comments THROMBIN TIME (BEAKER) (test code = 17.8 secs 13.8-20.0 550) [id number] 13:01:00 Test Item Value Reference Range Interpretation Comments PROCALCITONIN (BEAKER) (test code 0.09 ng/mL <0.05 H = 3036) SEPSIS RISK (ng/mL)Low: 0.05-0.50Intermediate: 0.51-2.00High: >=2.011:1 MIXING STUDY, [id number] 12:38:00 Test Item Value Reference Range Interpretation Comments PROTIME (BEAKER) (test code = 15.0 seconds 11.7-14.7 H 759) PARTIAL THROMBOPLASTIN TIME 36.1 seconds 22.5-36.0 H (BEAKER) (test code = 760) PT 1/1 MIX (BEAKER) (test code = 14.4 SECS 11.7-14.7 1595) PTT 1/1 MIX (BEAKER) (test code 35.5 SECS 22.5-36.0 = 1596) TROPONIN [id number] 12:01:00 Test Item Value Reference Range Interpretation Comments TROPONIN I (BEAKER) (test code = 0.13 ng/mL 0.00-0.03 H 397) HCG, QUANTITATIVE, [id number] 11:58:00 Test Item Value Reference Range Interpretation Comments GONADOTROPIN, CHORIONIC (HCG) QUANT < mIU/mL 0-10 (BEAKER) (test code = 649) Non- Females: <10 mIU/mL Females: Gestation Age Reference Range(mIU/mL) 0.2-1 Week 5-50 1-2 Weeks 50-500 2-3 Weeks 100-5,000 3-4Weeks 500-10,000 4-5 Weeks 1,000-50,000 5-6 Weeks 10,000-100,000 6-8 Weeks 15,000-200,000 2-3 Months 10,000-100,[id number] 11:55:00 Test Item Value Reference Range Interpretation Comments LIPASE (BEAKER) (test code = 749) 31 U/L 8-78 [id number] 11:55:00 Test Item Value Reference Range Interpretation Comments AMYLASE (BEAKER) (test code = 349) 101 U/L 25-125 COMPREHENSIVE METABOLIC [id number] 11:55:00 Test Item Value Reference Range Interpretation Comments TOTAL PROTEIN 8.5 gm/dL 6.0-8.3 H (BEAKER) (test code = 770) ALBUMIN (BEAKER) 4.1 g/dL 3.5-5.0 (test code = 1145) ALKALINE PHOSPHATASE 170 U/L 40-150 H (BEAKER) (test code = 346) BILIRUBIN TOTAL 0.3 mg/dL 0.2-1.2 (BEAKER) (test code = 377) SODIUM (BEAKER) (test 143 meq/L 136-145 code = 381) POTASSIUM (BEAKER) 2.9 meq/L 3.5-5.1 L (test code = 379) CHLORIDE (BEAKER) 111 meq/L 98-107 H (test code = 382) CO2 (BEAKER) (test 19 meq/L 22-29 L code = 355) BLOOD UREA NITROGEN 41 mg/dL 7-21 H (BEAKER) (test code = 354) CREATININE (BEAKER) 2.07 mg/dL 0.57-1.25 H (test code = 358) GLUCOSE RANDOM 162 mg/dL 70-105 H (BEAKER) (test code = 652) CALCIUM (BEAKER) 9.1 mg/dL 8.4-10.2 (test code = 697) AST (SGOT) (BEAKER) 21 U/L 5-34 (test code = 353) ALT (SGPT) (BEAKER) 11 U/L 6-55 (test code = 347) EGFR (BEAKER) (test 31 mL/min/1.73 ESTIMA OTF GFR IS code = 1092) sq m NOT ACCURATE CREATININE CLEARANCE IN PREDICTING GLOMERULAR FILTRATION RATE . ESTIMATED GFR I S NOT APPLICABLE FOR DIALYSIS PATIEN TS. C-REACTIVE [id number] 11:55:00 Test Item Value Reference Range Interpretation Comments C-REACTIVE PROTEIN (BEAKER) (test 0.42 mg/dL 0.00-0.50 code = 676) LACTIC ACID, VENOUS, WHOLE [id number] 11:51:00 Test Item Value Reference Range Interpretation Comments LACTATE BLOOD VENOUS 1.5 mmol/L 0.5-2.2 Specime n slightly (2) (BEAKER) (test hemolyzed code = 2873) [id number] 11:44:00 Test Item Value Reference Range Interpretation Comments PARTIAL THROMBOPLASTIN TIME 35.4 seconds 22.5-36.0 (BEAKER) (test code = 760) CBC W/PLT COUNT & AUTO [id number] 11:30:00 Test Item Value Reference Range Interpretation Comments WHITE BLOOD CELL COUNT (BEAKER) 9.2 K/ L 3.5-10.5 (test code = 775) RED BLOOD CELL COUNT (BEAKER) 4.90 M/ L 3.93-5.22 (test code = 761) HEMOGLOBIN (BEAKER) (test code = 12.7 GM/DL 11.2-15.7 410) HEMATOCRIT (BEAKER) (test code = 39.7 % 34.1-44.9 411) MEAN CORPUSCULAR VOLUME (BEAKER) 81.0 fL 79.4-94.8 (test code = 753) MEAN CORPUSCULAR HEMOGLOBIN 25.9 pg 25.6-32.2 (BEAKER) (test code = 751) MEAN CORPUSCULAR HEMOGLOBIN CONC 32.0 GM/DL 32.2-35.5 L (BEAKER) (test code = 752) RED CELL DISTRIBUTION WIDTH 14.3 % 11.7-14.4 (BEAKER) (test code = 412) PLATELET COUNT (BEAKER) (test 327 K/CU MM 150-450 code = 756) MEAN PLATELET VOLUME (BEAKER) 9.0 fL 9.4-12.3 L (test code = 754) NUCLEATED RED BLOOD CELLS 0 /100 WBC 0-0 (BEAKER) (test code = 413) NEUTROPHILS RELATIVE PERCENT 88 % (BEAKER) (test code = 429) LYMPHOCYTES RELATIVE PERCENT 5 % (BEAKER) (test code = 430) MONOCYTES RELATIVE PERCENT 6 % (BEAKER) (test code = 431) EOSINOPHILS RELATIVE PERCENT 0 % (BEAKER) (test code = 432) BASOPHILS RELATIVE PERCENT 0 % (BEAKER) (test code = 437) NEUTROPHILS ABSOLUTE COUNT 8.16 K/ L 1.56-6.13 H (BEAKER) (test code = 670) LYMPHOCYTES ABSOLUTE COUNT 0.50 K/ L 1.18-3.74 L (BEAKER) (test code = 414) MONOCYTES ABSOLUTE COUNT (BEAKER) 0.53 K/ L 0.24-0.36 H (test code = 415) EOSINOPHILS ABSOLUTE COUNT 0.00 K/ L 0.04-0.36 L (BEAKER) (test code = 416) BASOPHILS ABSOLUTE COUNT (BEAKER) 0.01 K/ L 0.01-0.08 (test code = 417) IMMATURE GRANULOCYTES-RELATIVE 0 % 0-1 PERCENT (BEAKER) (test code = 2801) POCT-GLUCOSE [id number] 11:20:00 Test Item Value Reference Range Interpretation Comments POC-GLUCOSE METER 167 mg/dL 70-110 H TESTED AT [facility] [address] (BEAKER) (test code = [place] [address]) [id number] HEMOGLOBIN [id number] 11:15:00 Test Item Value Reference Range Interpretation Comments HEMOGLOBIN A1C (BEAKER) (test code = 5.6 % 4.3-6.1 368) PROTHROMBIN TIME/[id number] 08:24:00 Test Item Value Reference Range Interpretation Comments PROTIME (BEAKER) (test code = 15.3 seconds 11.7-14.7 H 759) INR (BEAKER) (test code = 370) 1.2 <=5.9 RECOMMENDED COUMADIN/WARFARIN INR THERAPY RANGESSTANDARD DOSE: 2.0 - 3.0 Includes: PROPHYLAXIS forvenous thrombosis, systemic embolization; TREATMENT for venous thrombosis and/or pulmonary embolus.HIGH RISK: Target INR is 2.5-3.5 for patients with mechanical heart valves.RAD, ABDOMEN/KUB, 1 VIEW [id number] 08:13:00Reason for exam:->abdominal painFINAL REPORT INDICATION:Abdominal pain. [...] bilateral hip MRI is recommended. Signed: Blanca Ruizeport Verified Date/Time: 07/28 08:13:33 Reading Location: [facility] [id number] Ortho Consult Reading Room ONIN [id number] 08:11:00 Test Item Value Reference Range Interpretation Comments TROPONIN I (BEAKER) (test code = 0.05 ng/mL 0.00-0.03 H 397) RAD, CHEST, 1 VIEW, NON [id number] 08:10:00Reason for exam:->chest painShould this be performed at the bedside?->YesFINAL REPORT RAD, CHEST, 1 VIEW, NON DEPT INDICATION: chest pain COMPARISON: Prior day's exam FINDINGS: Portable frontal view of the chest. IMPRESSION: Support Lines: None. Lungs and pleura: Clear lungs. No effusion. No pneumothorax.Heart and mediastinum: Unremarkable contours.Additional findings: None. Signed: JR Maya Robert MDReport Verified Date/Time: 07/28/2018 08:10:51 Reading Location: [facility] Radiology Reading Room BASIC METABOLIC [id number] 08:08:00 Test Item Value Reference Range Interpretation Comments SODIUM (BEAKER) 146 meq/L 136-145 H (test code = 381) POTASSIUM (BEAKER) 3.4 meq/L 3.5-5.1 L Specimen slightly (test code = 379) hemolyzed CHLORIDE (BEAKER) 112 meq/L 98-107 H (test code = 382) CO2 (BEAKER) (test 16 meq/L 22-29 L code = 355) BLOOD UREA NITROGEN 43 mg/dL 7-21 H (BEAKER) (test code = 354) CREATININE (BEAKER) 2.26 mg/dL 0.57-1.25 H Specimen slightly (test code = 358) hemolyzed GLUCOSE RANDOM 165 mg/dL 70-105 H (BEAKER) (test code = 652) CALCIUM (BEAKER) 9.4 mg/dL 8.4-10.2 (test code = 697) EGFR (BEAKER) (test 28 mL/min/1.73 ESTIMA OTF GFR IS code = 1092) sq m NOT ACCURATE CREATININE CLEARANCE IN PREDICTING GLOMERULAR FILTRATION RATE . ESTIMATED GFR I S NOT APPLICABLE FOR DIALYSIS PATIEN TS. [id number] 08:04:00 Test Item Value Reference Range Interpretation Comments LIPASE (BEAKER) (test code = 749) 12 U/L 8-78 HEPATIC FUNCTION [id number] 08:04:00 Test Item Value Reference Range Interpretation Comments TOTAL PROTEIN (BEAKER) 9.1 gm/dL 6.0-8.3 H Speci men slightly (test code = 770) hemolyzed ALBUMIN (BEAKER) (test 4.4 g/dL 3.5-5.0 Speci men slightly code = 1145) hemolyzed BILIRUBIN TOTAL 0.3 mg/dL 0.2-1.2 Specimen sli ghtly (BEAKER) (test code = hemoly zed 377) BILIRUBIN DIRECT 0.1 mg/dL 0.1-0.5 Specimen sl ightly (BEAKER) (test code = hemoly zed 706) ALKALINE PHOSPHATASE 177 U/L 40-150 H (BEAKER) (test code = 346) AST (SGOT) (BEAKER) 25 U/L 5-34 Specimen slightly (test code = 353) hemolyzed ALT (SGPT) (BEAKER) 12 U/L 6-55 Specimen slightly (test code = 347) hemolyzed COMPLEMENT COMPONENT [id number] 08:03:00 Test Item Value Reference Range Interpretation Comments C4 COMPLEMENT (BEAKER) (test code = 25 mg/dL 15-57 394) COMPLEMENT COMPONENT [id number] 08:03:00 Test Item Value Reference Range Interpretation Comments C3 COMPLEMENT (BEAKER) (test code = 125 mg/dL 82-193 393) POCT-BLOOD GASES, [id number] 07:57:00 Test Item Value Reference Range Interpretation Comments TEMP, CELSIUS-POC 37.0 (BEAKER) (test code = 1834) FIO2-POC (BEAKER) TESTED AT [facility] 67[facility] (test code = 1835) [facility] [address] PH, ARTERIAL-POC 7.416 7.350-7.450 (BEAKER) (test code = 1836) PCO2, ARTERIAL-POC 29.8 mm Hg 35.0-45.0 L (BEAKER) (test code = 1837) PO2, ARTERIAL-POC 123.0 mm Hg 80.0-90.0 H (BEAKER) (test code = 1838) SO2, ARTERIAL-POC 99.0 % 96.0-97.0 H (AKER) (test code = 1839) HCO3, ARTERIAL-POC 19.2 meq/L 21.0-29.0 L (BEAKER) (test code = 1840) BASE EXCESS, -5.0 meq/L -2.0-3.0 L ARTERIAL-POC (BEAKER) (test code = 1841) [id number] 07:57:00 Test Item Value Reference Range Interpretation Comments POC-SODIUM ([facility]) 146 meq/L 135-148 TESTED A [place] [address] (test code = 1542) [facility] [address] [id number] 07:57:00 Test Item Value Reference Range Interpretation Comments POC-POTASSIUM 2.7 meq/L 3.6-5.5 L TESTED AT [place] [address] ([facility]) (test code [facility] [address] = 1540) [id number] 07:57:00 Test Item Value Reference Range Interpretation Comments POC-GLUCOSE ([facility]) 176 mg/dL 70-110 H TESTED AT [place] [address] (test code = 1855) [facility] [address] POCT-CALCIUM [id number] 07:57:00 Test Item Value Reference Range Interpretation Comments POC-CALCIUM IONIZED 1.15 mmol/L 1.12-1.27 TESTED [place] [address] ([facility]) (test code = [facility] 1531) [id number] 07:57:00 Test Item Value Reference Range Interpretation Comments POC-HEMATOCRIT 38 % 36-45 TESTED AT [place] [address] ([facility]) (test code = [facility] [address] 7771) [id number] 07:57:00 Test Item Value Reference Range Interpretation Comments POC-HEMOGLOBIN 12.9 g/dL 12.0-15.0 TESTED AT [place] [address] ([facility]) (test code [facility] = 1856) [id number] AT [address] [place] [address] POCT-LACTIC ACID, [id number] 07:57:00 Test Item Value Reference Range Interpretation Comments POC-LACTIC ACID, 3.3 mmol/L 0.9-1.7 H TESTED AT [facility] [address] (BEAKER) (test [place] code = 2805) [address] CBC W/PLT COUNT & AUTO [id number] 07:47:00 Test Item Value Reference Range Interpretation Comments WHITE BLOOD CELL COUNT (BEAKER) 9.6 K/ L 3.5-10.5 (test code = 775) RED BLOOD CELL COUNT (BEAKER) 4.78 M/ L 3.93-5.22 (test code = 761) HEMOGLOBIN (BEAKER) (test code = 12.2 GM/DL 11.2-15.7 410) HEMATOCRIT (BEAKER) (test code = 39.2 % 34.1-44.9 411) MEAN CORPUSCULAR VOLUME (BEAKER) 82.0 fL 79.4-94.8 (test code = 753) MEAN CORPUSCULAR HEMOGLOBIN 25.5 pg 25.6-32.2 L (BEAKER) (test code = 751) MEAN CORPUSCULAR HEMOGLOBIN CONC 31.1 GM/DL 32.2-35.5 L (BEAKER) (test code = 752) RED CELL DISTRIBUTION WIDTH 14.2 % 11.7-14.4 (BEAKER) (test code = 412) PLATELET COUNT (BEAKER) (test 301 K/CU MM 150-450 code = 756) MEAN PLATELET VOLUME (BEAKER) 8.8 fL 9.4-12.3 L (test code = 754) NUCLEATED RED BLOOD CELLS 0 /100 WBC 0-0 (BEAKER) (test code = 413) NEUTROPHILS RELATIVE PERCENT 89 % (BEAKER) (test code = 429) LYMPHOCYTES RELATIVE PERCENT 5 % (BEAKER) (test code = 430) MONOCYTES RELATIVE PERCENT 5 % (BEAKER) (test code = 431) EOSINOPHILS RELATIVE PERCENT 0 % (BEAKER) (test code = 432) BASOPHILS RELATIVE PERCENT 0 % (BEAKER) (test code = 437) NEUTROPHILS ABSOLUTE COUNT 8.56 K/ L 1.56-6.13 H (BEAKER) (test code = 670) LYMPHOCYTES ABSOLUTE COUNT 0.52 K/ L 1.18-3.74 L (BEAKER) (test code = 414) MONOCYTES ABSOLUTE COUNT (BEAKER) 0.46 K/ L 0.24-0.36 H (test code = 415) EOSINOPHILS ABSOLUTE COUNT 0.00 K/ L 0.04-0.36 L (BEAKER) (test code = 416) BASOPHILS ABSOLUTE COUNT (BEAKER) 0.02 K/ L 0.01-0.08 (test code = 417) IMMATURE GRANULOCYTES-RELATIVE 0 % 0-1 PERCENT (BEAKER) (test code = 2801)
[2020-08-30] MEDS ORDERED: METOPROLOL TARTRATE 5 MG/5 ML INJ IV ONE (03:11)
[2020-08-30] MEDS ORDERED: LORazepam 2 MG/ML VIAL ONE (03:19)
[2020-08-30 03:25] LABS: Protime INR 1.03
[2020-08-30 03:27] LABS: Absolute Lymphocytes (CBC) 1.4 K/uL (0.7-4.9); Basophils % 0.7 % (0-1.3); Hematocrit 41.2 % (36.0-45.0); Lymphocytes % 23.4 % (15.3-44.8); MPV 7.4 fL (7.6-11.3); RBC Red Blood Cell Count 5.06 M/uL (3.86-4.86)
[2020-08-30 03:43] LABS: ALT/SGPT 11 U/L (12-78); AST/SGOT 19 U/L (15-37); Albumin 3.9 g/dL (3.4-5.0); Alkaline Phosphatase 220 U/L (45-117); BUN Blood Urea Nitrogen 49 mg/dL (7-18); Bicarbonate 18 mmol/L (21-32); Bilirubin Direct < 0.1 mg/dL (0-0.2); Bilirubin Total 0.3 mg/dL (0.2-1.0); Glucose Level 106 mg/dL (74-106); Magnesium 2.3 mg/dL (1.8-2.4); NT PRO-BNP 1311 pg/mL (<125); Potassium 3.4 mmol/L (3.5-5.1); Protein, Total 9.5 g/dL (6.4-8.2); Sodium Level 137 mmol/L (136-145); Troponin (Emerg Dept Use Only) 0.07 ng/mL (0.0-0.045)
[2020-08-30] MEDS ORDERED: POTASSIUM CL SA 10 MEQ TAB PO ONE ×2 (04:52)
[2020-08-30] MEDS ORDERED: HYDROMORPHONE HCL 0.5 MG/0.5 ML INJ ONE (05:00)
--- NOTE | 2020-08-30 05:09 | EDPHYS ---
Physician Documentation [facility] Name: Babs Younger Age: 50 yrs Sex: Female : 1970 Arrival Date: 08/30/2020 Time: 02:59 Bed 3 Private MD: ED Physician Inder Rogers HPI: 08/30 03:38 This 50 yrs old Black Female presents to ER via EMS with complaints of Palpitations. pkl 03:38 The patient presents with a history of irregular heart beat, heart racing. Context: The pkl symptoms occur at rest. Onset: The symptoms/episode began/occurred just prior to arrival. En route to the hospital, EMT noted Atrial fibrillation with RVR ( 180 to 190 ). 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 rr5 Historical: - Allergies: 03:00 Morphine; rr5 - Home Meds: 03:00 Ambien 5 mg Oral tab 1 tab qhs prn [Active]; amlodipine 10 mg tab 1 tab once daily rr5 [Active]; CellCept 500 mg Oral tab 2 tabs 2 times per day [Active]; doxazosin 4 mg Oral tab 1 tab once daily [Active]; furosemide 80 mg Oral tab 1 tab 2 times per day [Active]; gabapentin 400 mg Oral cap 1 cap as needed [Active]; clonidine HCl 0.3 mg Oral tab 1 tab three times a day [Active]; Humulin 70/30 100 unit/mL (70-30) Sub-Q susp 60 units in am and 40 units at night [Active]; hydralazine 50 mg Oral tab 1 tab three times a day [Active]; [place] 10-325 mg Oral tab 1 tab QID PRN [Active]; metoprolol tartrate 100 mg Oral tab 1 tab 2 times per day [Active]; Plaquenil 200 mg Oral tab 1 tab once daily [Active]; - PMHx: 03:00 bowel obstruction; Diabetes - IDDM; Hypertension; Lupus; Renal Disease; Seizures; ESRD; rr5 - PSHx: 03:00 Hysterectomy; abdominal surgery; rr5 - Immunization history:: Adult Immunizations up to date. - Social history:: Smoking status: unknown. ROS: 03:38 Eyes: Negative for injury, pain, redness, and discharge, ENT: Negative for injury, pkl pain, and discharge, Neck: Negative for injury, pain, and swelling. 03:38 Cardiovascular: Positive for palpitations. 03:38 Respiratory: Negative for cough, shortness of breath. 03:38 Abdomen/GI: Negative for abdominal pain, nausea, vomiting, and diarrhea. 03:38 Back: Negative for acute changes. 03:38 : Negative for urinary symptoms. 03:38 MS/extremity: Negative for acute changes. 03:38 Skin: Negative for rash. 03:38 Neuro: Negative for altered mental status, loss of consciousness. Exam: 03:38 Head/Face: Normocephalic, atraumatic. Eyes: Pupils equal round and reactive to light, pkl extra-ocular motions intact. Lids and lashes normal. Conjunctiva and sclera are non-icteric and not injected. Cornea within normal limits. Periorbital areas with no swelling, redness, or edema. ENT: Nares patent. No nasal discharge, no septal abnormalities noted. Tympanic membranes are normal and external auditory canals are clear. Oropharynx with no redness, swelling, or masses, exudates, or evidence of obstruction, uvula midline. Mucous membranes moist. Neck: Trachea midline, no thyromegaly or masses palpated, and no cervical lymphadenopathy. Supple, full range of motion without nuchal rigidity, or vertebral point tenderness. No Meningismus. Chest/axilla: Normal chest wall appearance and motion. Nontender with no deformity. No lesions are appreciated. Cardiovascular: Regular rate and rhythm with a normal S1 and S2. No gallops, murmurs, or rubs. Normal PMI, no JVD. No pulse deficits. 03:38 ECG was reviewed by the Attending Physician. pkl 03:38 Respiratory: the patient does not display signs of respiratory distress, Respirations: normal, Breath sounds: are clear throughout. 03:38 Abdomen/GI: Bowel sounds: normal, Palpation: abdomen is soft and non-tender, in all quadrants. 03:38 Back: Exam negative for acute changes. 03:38 : Exam negative for acute changes. 03:38 Musculoskeletal/extremity: Exam is negative for acute changes. 03:38 Skin: Exam negative for rash. 03:38 Neuro: Orientation: appropriate for stated age, Mentation: is normal, Cranial nerves: grossly normal, Motor: is normal. Vital Signs: 03:00 BP 221 / 127; Pulse 147; Resp 19; Temp 98; Pulse Ox 99% ; Weight 81.65 kg; Height 5 ft. rr5 7 in. (170.18 cm); 03:05 BP 192 / 113; Pulse 119; Resp 19; Pulse Ox 98% 3 lpm ; rr5 03:10 BP 186 / 116; Pulse 104; Resp 18; Pulse Ox 100% on 3 lpm NC; rr5 03:22 BP 171 / 104; Pulse 104; Resp 19; Pulse Ox 98% ; rr5 04:23 BP 169 / 108; Pulse 92; Resp 18; Pulse Ox 100% on 3 lpm NC; mg2 05:53 BP 153 / 89; Pulse 73; Resp 17; Temp 98.2; Pulse Ox 99% 3 lpm ; rr5 07:13 BP 177 / 105; Pulse 75; Resp 14; Pulse Ox 100% ; sv 03:00 Body Mass Index 28.19 (81.65 kg, 170.18 cm) rr5 MDM: 03:18 Patient medically screened. pkl 03:44 Data reviewed: vital signs, nurses notes, lab test result(s), EKG, radiologic studies, pkl CT scan, plain films. ED course: Patient had a grand mal seizure in ER. Seizure controlled with IV Ativan 1 mg. 05:00 ED course: Talked to Dr. Chang, admit. pkl 08/30 03:00 Order name: CBC with Diff; Complete Time: 03:59 mg2 08/30 03:00 Order name: LFT's; Complete Time: 04:33 mg2 08/30 03:00 Order name: Magnesium; Complete Time: 04:33 mg2 08/30 03:00 Order name: NT PRO-BNP; Complete Time: 04:33 mg2 08/30 03:00 Order name: PT-INR; Complete Time: 03:59 mg2 08/30 03:00 Order name: Troponin (emerg Dept Use Only); Complete Time: 04:33 mg2 08/30 03:00 Order name: XRAY Chest (1 view) mg2 08/30 03:21 Order name: Glucose, Ancillary Testing; Complete Time: 03:59 EDMS 08/30 03:21 Order name: Basic Metabolic Panel; Complete Time: 04:33 EDMS 08/30 03:21 Order name: Glucose, Ancillary Testing EDMS 08/30 05:40 Order name: Urinalysis EDMS 01/02 07:21 Order name: SARS-COV-2 RT PCR EDMS 08/30 03:00 Order name: EKG; Complete Time: 03:01 mg2 08/30 03:00 Order name: Cardiac monitoring; Complete Time: 03:00 mg2 08/30 03:00 Order name: EKG - Nurse/Tech; Complete Time: 03:00 mg2 08/30 03:00 Order name: IV Saline Lock; Complete Time: 03:00 mg2 08/30 03:00 Order name: Labs collected and sent; Complete Time: 03:00 mg2 08/30 03:00 Order name: O2 Per Protocol; Complete Time: 03:00 mg2 08/30 03:00 Order name: O2 Sat Monitoring; Complete Time: 03:00 mg2 08/30 03:07 Order name: CT Head Brain wo Cont rr5 08/30 05:40 Order name: Patient Safety Orders EDMS 08/30 05:40 Order name: Renal EDMS Administered Medications: 02:50 Drug: Lopressor 5 mg {Note: HR 147BPM bp 221/127.} Route: IVP; Site: right hand; rr5 03:05 Drug: Lopressor 5 mg {Note: HR 119 bp 192/113mmHg.} Route: IVP; Site: left hand; rr5 03:06 Drug: Ativan 1 mg Route: IVP; Site: left hand; rr5 04:23 Follow up: Response: No adverse reaction mg2 03:10 Drug: Lopressor 5 mg {Note: hr 115 BP 186/118 mmHg.} Route: IVP; Site: left hand; rr5 04:23 Follow up: Response: No adverse reaction mg2 04:39 Drug: K-Dur 20 mEq Route: PO; rr5 04:41 Follow up: Response: No adverse reaction mg2 04:48 Drug: Dilaudid 0.5 mg Route: IVP; Site: right hand; mg2 06:03 Follow up: Response: No adverse reaction; Marked relief of symptoms mg2 06:35 Drug: [place] 10 mg-325 mg 1 tabs {Note: ordered taken in the [facility].} Route: PO; mg2 07:26 Follow up: Response: No adverse reaction mg2 Disposition: 08/30/20 05:08 Hospitalization ordered by Marcelino Lewis for Inpatient Admission. Preliminary diagnosis is Palpitation. Severe hypertension. Seizure disorder. - Bed requested for Telemetry/MedSurg (Inpatient). - Status is Inpatient Admission. sv - Condition is Stable. - Problem is new. - Symptoms have improved. Signatures: Dispatcher [employer] EDAZ Chrystal Teague, RN Jamilah Arrieta RN Inder Caceres MD MD pkMando Garcia RN LUIS [facility] Jim Gill RN RN rr5 Corrections: (The following items were deleted from the chart) 03:20 03:01 BASIC METABOLIC PANEL+C.LAB.BRZ ordered. EDAZ EDMS 05:41 04:41 CORONAVIRUS+MR.LAB.BRZ ordered. EDAZ EDMS 05:52 05:08 Hospitalization Ordered by Marcelino Lewis DO for Inpatient Admission. Preliminary diagnosis is Palpitation. Severe hypertension. Seizure disorder. Bed requested for Telemetry/MedSurg (Inpatient). Status is Inpatient Admission. Condition is Stable. Problem is new. Symptoms have improved. pkl 07:44 05:52 08/30/2020 05:08 Hospitalization Ordered by Marcelino Lewis DO for Inpatient sv Admission. Preliminary diagnosis is Palpitation. Severe hypertension. Seizure disorder. Bed requested for Telemetry/MedSurg (Inpatient). Status is Inpatient Admission. Condition is Stable. Problem is new. Symptoms have improved. mw
--- NOTE | 2020-08-30 05:09 | ER ---
Nurse's Notes [facility] Name: Babs Younger Age: 50 yrs Sex: Female : 1970 Arrival Date: 08/30/2020 Time: 02:59 Bed 3 Private MD: Diagnosis: Palpitation. Severe hypertension. Seizure disorder Presentation: 08/30 03:00 Chief complaint: EMS states: she complaint of heart palpitation around 180-190's rr5 started 0100H. BP 180/100mmHg no cardiac history no history of afib. Coronavirus screen: Client denies travel out of the [place] in the last 14 days. At this time, the client does not indicate any symptoms associated with coronavirus-19. Ebola Screen: Patient negative for fever greater than or equal to 101.5 degrees Fahrenheit, and additional compatible Ebola Virus Disease symptoms Patient denies exposure to infectious person. Patient denies travel to an Ebola-affected area in the 21 days before illness onset. Initial Sepsis Screen: Does the patient meet any 2 criteria? No. Patient's initial sepsis screen is negative. Does the patient have a suspected source of infection? No. Patient's initial sepsis screen is negative. Risk Assessment: Do you want to hurt yourself or someone else? Patient reports no desire to harm self or others. Onset of symptoms was August 30, 2020. 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 Historical: - Allergies: 03:00 Morphine; rr5 - Home Meds: 03:00 Ambien 5 mg Oral tab 1 tab qhs prn [Active]; amlodipine 10 mg tab 1 tab once daily rr5 [Active]; CellCept 500 mg Oral tab 2 tabs 2 times per day [Active]; doxazosin 4 mg Oral tab 1 tab once daily [Active]; furosemide 80 mg Oral tab 1 tab 2 times per day [Active]; gabapentin 400 mg Oral cap 1 cap as needed [Active]; clonidine HCl 0.3 mg Oral tab 1 tab three times a day [Active]; Humulin 70/30 100 unit/mL (70-30) Sub-Q susp 60 units in am and 40 units at night [Active]; hydralazine 50 mg Oral tab 1 tab three times a day [Active]; [place] 10-325 mg Oral tab 1 tab QID PRN [Active]; metoprolol tartrate 100 mg Oral tab 1 tab 2 times per day [Active]; Plaquenil 200 mg Oral tab 1 tab once daily [Active]; - PMHx: 03:00 bowel obstruction; Diabetes - IDDM; Hypertension; Lupus; Renal Disease; Seizures; ESRD; rr5 - PSHx: 03:00 Hysterectomy; abdominal surgery; rr5 - Immunization history:: Adult Immunizations up to date. - Social history:: Smoking status: unknown. Screenin:01 Abuse screen: Denies threats or abuse. Denies injuries from another. Nutritional mg2 screening: No deficits noted. Tuberculosis screening: No symptoms or risk factors identified. Fall Risk Secondary diagnosis (15 points) seizures, IV access (20 points). Assessment: 02:50 Neuro: Seizure activity noted at this time. Type of seizure: tonic-clonic seizure. rr5 approximate 5 seconds. 03:01 General: Appears in no apparent distress. comfortable, Behavior is calm, cooperative. mg2 Pain: Complains of pain in right arm Pain currently is 5 out of 10 on a pain scale. Quality of pain is described as aching, Pain began gradually, Is intermittent. Neuro: Level of Consciousness is awake, alert, obeys commands, Oriented to person, place, time, situation. Cardiovascular: Capillary refill < 3 seconds Patient's skin is warm and dry. Rhythm is sinus tachycardia. Respiratory: Airway is patent Respiratory effort is even, unlabored, Respiratory pattern is regular, symmetrical. GI: No signs and/or symptoms were reported involving the gastrointestinal system. : No signs and/or symptoms were reported regarding the genitourinary system. EENT: No signs and/or symptoms were reported regarding the EENT system. Derm: Skin is normal. 03:05 Neuro: Seizure activity noted at this time. Type of seizure: tonic-clonic seizure. 5 rr5 seconds ED provider at bedside. 03:10 Neuro: Seizure activity noted at this time. Type of seizure: tonic-clonic seizure. 5 rr5 seconds ED provider at bedside. 03:22 Reassessment: Patient appears in no apparent distress at this time. Patient is alert, rr5 oriented x 3, equal unlabored respirations, skin warm/dry/pink. awaiting for results. 03:27 Reassessment: patient sent to CT scan via stretcher. mg2 04:24 Reassessment: Patient appears in no apparent distress at this time. Patient and/or mg2 family updated on plan of care and expected duration. Pain level reassessed. Patient is alert, oriented x 3, equal unlabored respirations, skin warm/dry/pink. 05:15 Reassessment: Patient appears in no apparent distress at this time. Patient is alert, rr5 oriented x 3, equal unlabored respirations, skin warm/dry/pink. hospitalist at bedside. 05:56 Reassessment: room assigned awaiting for covid swab. rr5 06:59 Reassessment: Patient appears in no apparent distress at this time. awaiting for covid rr5 swab follow up to laboratory department. 07:25 Reassessment: Attempted to call report, nurse unavailable. sv Vital Signs: 03:00 BP 221 / 127; Pulse 147; Resp 19; Temp 98; Pulse Ox 99% ; Weight 81.65 kg; Height 5 ft. rr5 7 in. (170.18 cm); 03:05 BP 192 / 113; Pulse 119; Resp 19; Pulse Ox 98% 3 lpm ; rr5 03:10 BP 186 / 116; Pulse 104; Resp 18; Pulse Ox 100% on 3 lpm NC; rr5 03:22 BP 171 / 104; Pulse 104; Resp 19; Pulse Ox 98% ; rr5 04:23 BP 169 / 108; Pulse 92; Resp 18; Pulse Ox 100% on 3 lpm NC; mg2 05:53 BP 153 / 89; Pulse 73; Resp 17; Temp 98.2; Pulse Ox 99% 3 lpm ; rr5 07:13 BP 177 / 105; Pulse 75; Resp 14; Pulse Ox 100% ; sv 03:00 Body Mass Index 28.19 (81.65 kg, 170.18 cm) rr5 ED Course: 02:59 Patient arrived in ED. mg2 02:59 Jim Gill RN is Primary Nurse. rr5 03:00 No provider procedures requiring assistance completed. Inserted saline lock: 22 gauge mg2 in right hand, using aseptic technique. Blood collected. 03:00 Inserted saline lock: 20 gauge in left hand, using aseptic technique. Blood collected. rr5 by LUIS Fernandez. 03:07 Triage completed. rr5 03:11 Patient has correct armband on for positive identification. documentation billing clerk on. Pulse mg2 ox on. NIBP on. Door closed. Warm blanket given. 03:11 Arm band placed on. mg2 03:11 Seizure precautions initiated. mg2 03:17 Inder Rogers MD is Attending Physician. pkl 03:45 XRAY Chest (1 view) In Process Unspecified. EDMS 03:58 CT Head Brain wo Cont In Process Unspecified. EDMS 05:03 COVID swab sent to lab. rr5 05:06 Marcelino Lewis DO is Hospitalizing Provider. pkl 06:03 Patient admitted, IV remains in place. mg2 Administered Medications: 02:50 Drug: Lopressor 5 mg {Note: HR 147BPM bp 221/127.} Route: IVP; Site: right hand; rr5 03:05 Drug: Lopressor 5 mg {Note: HR 119 bp 192/113mmHg.} Route: IVP; Site: left hand; rr5 03:06 Drug: Ativan 1 mg Route: IVP; Site: left hand; rr5 04:23 Follow up: Response: No adverse reaction mg2 03:10 Drug: Lopressor 5 mg {Note: hr 115 BP 186/118 mmHg.} Route: IVP; Site: left hand; rr5 04:23 Follow up: Response: No adverse reaction mg2 04:39 Drug: K-Dur 20 mEq Route: PO; rr5 04:41 Follow up: Response: No adverse reaction mg2 04:48 Drug: Dilaudid 0.5 mg Route: IVP; Site: right hand; mg2 06:03 Follow up: Response: No adverse reaction; Marked relief of symptoms mg2 06:35 Drug: [place] 10 mg-325 mg 1 tabs {Note: ordered taken in the [employer].} Route: PO; mg2 07:26 Follow up: Response: No adverse reaction mg2 Outcome: 05:08 Decision to Hospitalize by Provider. pkl 07:41 Admitted to Tele accompanied by tech, via stretcher, room 212, with oxygen, with chart, sv Report called to Nataly SMITH 07:41 Condition: stable 07:41 Instructed on the need for admit. 07:44 Patient left the ED. sv Signatures: Dispatcher [employer] Chrystal Gaytan RN RN sv Inder Rogers MD MD pkl Mando Brewer RN RN mg2 Jim Gill RN RN rr5 Corrections: (The following items were deleted from the chart) 03:15 03:11 BP 186 / 116; Pulse 104bpm; Resp 18bpm; Pulse Ox 100% RA; mg2 rr5 03:43 03:00 Inserted saline lock: in left hand, using aseptic technique. Blood collected. by rr5 LUIS Fernandez mg2
[2020-08-30] MEDS ORDERED: ONDANSETRON 4 MG/2 ML VIAL IV PRN (05:36)
[2020-08-30] MEDS ORDERED: ACETAMINOPHEN 500 MG TAB PO PRN (05:36)
[2020-08-30] MEDS ORDERED: HYDROCODONE/APAP 10/325 TAB PO PRN (05:39)
[2020-08-30] MEDS ORDERED: ZOLPIDEM TARTRATE 5 MG TABLET PO PRN (05:39)
[2020-08-30] MEDS ORDERED: GABAPENTIN 400 MG CAP PO PRN (05:39)
--- NOTE | 2020-08-30 05:48 | P.HP ---
Certification for Inpatient With expected LOS: >2 Midnights Patient will require the following post-hospital care: None Practitioner: I am a practitioner with admitting privileges, knowledge of patient current condition, hospital course, and medical plan of care. Services: Services provided to patient in accordance with Admission requirements found in Title 42 Section 412.3 of the Code of Federal Regulations Patient History Date of Service: 08/30/20 Reason for admission: Rapid heart beat, seizures. History of Present Illness: 50 y o female pt with medical hx of seizures, lupus, hypertension, diabetes type 2 and CKD stage 4 admitted for management of A fib with RVR and seizure. She had reported to the ED for episode of fast heart beat and she was found to have rapid A fib with heart rate up to 180s. She denied any issues with chest pain, fever, chills, rigor, n/v or sob. while being attended to, she had a seizure that lasted approx 10-15 secs. she was given ativan and this episode aborted. She was also given metoprolol IV for Rapid A fib management and her heart rate dropped below 100bpm. She was subsequently admitted for inpt care and monitoring. Allergies morphine Allergy (Severe, Verified 09/07/17 09:12) Unknown Home medications list reviewed: Yes Home Medications: Hydralazine HCl 50 mg PO TID 07/09/15 Metoprolol Tartrate 100 mg PO BID 07/09/15 cloNIDine HCL [Clonidine HCl] 0.3 mg PO TID 07/09/15 Amlodipine [Norvasc*] 10 mg PO DAILY 08/08/15 Doxazosin [Cardura*] 4 mg PO DAILY 09/07/17 Gabapentin 400 mg PO DAILY PRN 09/07/17 Hydrocodone Bit/Acetaminophen [[place] 10-325 Tablet] 1 tab PO QIDP PRN 09/07/17 Hydroxychloroquine [Plaquenil*] 200 mg PO DAILY 09/07/17 Zolpidem Tartrate [Ambien] 5 mg PO BEDTIME PRN PRN 09/07/17 Mycophenolate Mofetil [Cellcept] 2 tab PO BID 08/02/19 Levetiracetam [Keppra] 750 mg PO BID 08/03/19 Pilocarpine HCl 5 mg PO TID 08/03/19 Calcitrol [Rocaltrol*] 0.5 mcg PO DAILY 30 Days #30 cap 08/04/19 Cholecalciferol (Vitamin D3) [Vitamin D 5,000 IU Cap*] 5,000 unit PO DAILY #30 cap 08/04/19 Loperamide [Imodium*] 2 mg PO Q4H PRN #30 cap 08/04/19 Na Bicarb Tab [Sodium Bicarb 325 MG Tab*] 650 mg PO QID #60 tab 08/04/19 - Past Medical/Surgical History Diabetic: Yes -: Lupus, Rheumatology-Dr. Rothman -: HTN -: Seizure disorder -: History of Small bowel obstruction -: Ileostomy in place -: CAD -: History of avascular necrosis -: History of pyelonephritis -: Depression with history of suicidal ideation -: depression -: -: Hysterectomy -: Bowel resection -: Colostomy -: trach (reversed) -: Removal of colostomy now with ileostomy Psychosocial/ Personal History: single, one child. - Family History Sister Notes: lupus Father -: Kidney disease Notes: Mother -: Hypertension, Cancer Notes: , uterine Brother -: Hypertension, Diabetes - Social History Alcohol use: No CD- Drugs: No Caffeine use: Yes Review of Systems General: Malaise Eyes: Unremarkable ENT: Unremarkable Cardiovascular: Palpitations Gastrointestinal: Unremarkable Genitourinary: Unremarkable Musculoskeletal: Shoulder Pain Integumentary: Unremarkable Neurological: Weakness Physical Examination - Physical Exam General: Alert, Oriented x3 HEENT: Atraumatic, Normocephalic Neck: Supple Respiratory: Clear to auscultation bilaterally Cardiovascular: Regular rate/rhythm, Normal S1 S2 Gastrointestinal: Soft and benign, Other (surgical scars noted on ant abd wall.) Musculoskeletal: No clubbing Integumentary: No rashes Neurological: Normal strength at 5/5 x4 extr, Cranial nerves 3-12 intact External genitalia: No edema - Studies Laboratory Data (last 24 hrs) 08/30/20 03:00: PT 12.1, INR 1.03 08/30/20 03:00: Sodium 137, Potassium 3.4 L, BUN 49 H, Creatinine 2.38 H, Glucose 106, Magnesium 2.3 D, Total Bilirubin 0.3, AST 19, ALT 11 L, Alkaline Phosphatase 220 H 08/30/20 03:00: WBC 5.9, Hgb 13.2, Hct 41.2, Plt Count 348 08/30/20 03:00: Sodium Cancelled, Potassium Cancelled, BUN Cancelled, Creatinine Cancelled, Glucose Cancelled Assessment and Plan - Plan 1.Seizures-Has a hx of seizures and is on Keppra. had dose of ativan for seizure control in ED. we will continue home dose of Keppra. we will have her on seizure precautions. additional dose of prn ativan for breakthrough seizures will be ordered. 2.A fib -Had a brief episode of rapid A fib but heart rate is better at 80s presently after dose of IV metoprolol. we will continue Metoprolol 100mg PO BID for rate control. Cardiology to evaluate. 3.Hypertension-we will monitor her vitals signs per unit protocol and continue antihypertensive meds of clonidine, amlodipine, hydralazine and doxazosine at present doses. we will adjust to achieve BP control of <130/80mmhg. 4.Lupus-On plaquenil and mycophenolic acid. we will continue routine care. will consider steroid doses if lupus flare worsens. 5.Diabetes type 2-We will have her on SSI for blood glucose control. 6.CKD stage 4- Her creatinine is 2.4 and her eGFR is 26. she follows up with nephrology on outpt. we will dose meds for eGFR and avoid nephrotoxin exposure. we will follow trend of renal function while on admission. 7.Metabolic acidemia-Bicarb is low at 18. sodium bicarb tablets to be continued at 650mg PO QID. 8.Hypokalemia- Potassium is low at 3.4. we will replete and monitor closely. - Advance Directives Does patient have a Living Will: No Does patient have a Durable POA for Healthcare: No
[2020-08-30] MEDS ORDERED: LORazepam 2 MG/ML VIAL IV PRN (06:00)
[2020-08-30] MEDS: INSULIN -REGULAR HUMAN 50 UNIT/0.5 ML ML SQ SCH ×2 (07:30→11:30)
[2020-08-30 07:57] VITALS: O2SAT 100
--- NOTE | 2020-08-30 08:15 | RAD REPORT ---
EXAM DESCRIPTION: Fredo Single View08/30/2020 3:46 am CLINICAL HISTORY: Atrial fibrillation COMPARISON: August 2019 FINDINGS: The lungs appear clear of acute infiltrate. The heart is moderately enlarged IMPRESSION: No acute abnormalities displayed
[2020-08-30] MEDS ORDERED: HYDROXYCHLOROQUINE 200MG TAB PO SCH (09:00)
[2020-08-30] MEDS ORDERED: AMLODIPINE 10 MG TAB PO SCH (09:00)
[2020-08-30] MEDS ORDERED: METOPROLOL TAR 50 MG TAB PO SCH (09:00)
[2020-08-30] MEDS ORDERED: HOME MED 1 EA UNK (Mycophenolate Mofetil [Cellcept] 500 MG Tablet) PO SCH (09:00)
[2020-08-30] MEDS ORDERED: CALCITROL 0.25 MCG CAP PO SCH (09:00)
[2020-08-30] MEDS ORDERED: DOXAZOSIN 4 MG TAB PO SCH (09:00)
[2020-08-30] MEDS ORDERED: levETIRAcetam 500 MG TAB PO SCH (09:00)
[2020-08-30] MEDS: HYDRALAZINE HCL 25 MG TABLET PO SCH ×2 (10:14→12:25)
[2020-08-30] MEDS: CLONIDINE HCL 0.3 MG TAB PO SCH ×2 (10:14→12:25)
[2020-08-30] MEDS: SODIUM BICARB 325 MG TAB PO SCH ×2 (10:14→14:52)
[2020-08-30 10:32] VITALS: BMI 32.9
[2020-08-30] MEDS ORDERED: DOXAZOSIN 2 MG TAB ONE (11:06)
[2020-08-30 13:05] VITALS: TEMP 97
--- NOTE | 2020-08-30 14:05 | EKG ---
Test Date: 2020-08-30 Test Time: 02:53:38 Flexographic Press Plate Setter: VIN MEASUREMENT RESULTS: Intervals: Rate: 137 IA: 142 QRSD: 82 QT: 334 QTc: 504 [place]: P: IA: 142 QRS: 8 T: 94 INTERPRETIVE STATEMENTS: Sinus tachycardia with premature atrial complexes Left ventricular hypertrophy with repolarization abnormality Abnormal ECG Compared to ECG 09/08/2019 19:07:03 Early repolarization now present Sinus rhythm no longer present Prolonged QT interval no longer present Electronically Signed On 08-30-20 14:04:40 FACILITIES SUPERVISOR by Jesse Jaime
[2020-08-30] MEDS ORDERED: CLONIDINE HCL 0.3 MG TAB PO ONE (14:35)
[2020-08-30 14:55] VITALS: BP 160/90
--- NOTE | 2020-08-30 16:24 | P.DS ---
Admission Date: 08/30/20 Discharge Date: 08/30/20 Disposition: ROUTINE DISCHARGE Discharge Condition: FAIR Reason for Admission: Rapid heart beat, seizures. Brief History of Present Illness: 50-year-old woman with a history lupus, seizures disorder, hypertension and atrial fibrillation presented to the emergency department with a complaint of palpitations. Patient was found to have atrial fibrillation with RVR. She also experienced a seizure episode in the ED and was given a dose of IV Ativan. Patient admitted she was supposed to be taking Keppra but has stopped taking it because she was not tolerating it. Patient was given multiple doses of Lopressor and subsequently admitted for further management. Hospital Course: Patient heart rate improved in emergency department. Her home dose metoprolol was continued during the hospital stay. Patient heart rate remained controlled. She did not develop any further seizure episode. She continued to refuse the Keppra. Case was discussed with Dr. Torres who recommended Dilantin at bedtime and follow up with him in the office next week. Patient has been stable since hospitalization. Her troponin was mildly elevated which is likely secondary to demand ischemia in the context of decreased renal clearance. She had no shortness of breath or chest pain. ACS unlikely. Patient requested to go home. She is discharged per her request with Dilantin as recommended by neurology. Vital Signs/Physical Exam: Temp Pulse Resp BP Pulse Ox 97 F 83 16 160/90 H 100 08/30/20 12:00 08/30/20 14:51 08/30/20 12:00 08/30/20 14:51 08/30/20 12:00 General: Alert, In no apparent distress, Oriented x3 Neck: Supple, JVD not distended Respiratory: Clear to auscultation bilaterally, Normal air movement Gastrointestinal: Soft and benign, Non-distended Musculoskeletal: No swelling, No tenderness Integumentary: No rashes Neurological: Normal strength at 5/5 x4 extr, Cranial nerves 3-12 intact Laboratory Data at Discharge: WBC 5.9 K/uL (4.3-10.9) 08/30/20 03:00 Hgb 13.2 g/dL (12.0-15.0) 08/30/20 03:00 Hct 41.2 % (36.0-45.0) 08/30/20 03:00 Plt Count 348 K/uL (152-406) 08/30/20 03:00 PT 12.1 SECONDS (9.5-12.5) 08/30/20 03:00 INR 1.03 08/30/20 03:00 Sodium 137 mmol/L (136-145) 08/30/20 03:00 Sodium Cancelled 08/30/20 03:00 Potassium 3.4 mmol/L (3.5-5.1) L 08/30/20 03:00 Potassium Cancelled 08/30/20 03:00 BUN 49 mg/dL (7-18) H 08/30/20 03:00 BUN Cancelled 08/30/20 03:00 Creatinine 2.38 mg/dL (0.55-1.3) H 08/30/20 03:00 Creatinine Cancelled 08/30/20 03:00 Glucose 106 mg/dL (74-106) 08/30/20 03:00 Glucose Cancelled 08/30/20 03:00 Magnesium 2.3 mg/dL (1.8-2.4) D 08/30/20 03:00 Total Bilirubin 0.3 mg/dL (0.2-1.0) 08/30/20 03:00 AST 19 U/L (15-37) 08/30/20 03:00 ALT 11 U/L (12-78) L 08/30/20 03:00 Alkaline Phosphatase 220 U/L (45-117) H 08/30/20 03:00 Home Medications: Hydralazine HCl 100 mg PO TID 07/09/15 Metoprolol Tartrate 100 mg PO BID 07/09/15 cloNIDine HCL [Clonidine HCl] 0.3 mg PO TID 07/09/15 Amlodipine [Norvasc*] 10 mg PO DAILY 08/08/15 Doxazosin [Cardura*] 4 mg PO DAILY 09/07/17 Gabapentin 100 mg PO DAILY PRN 09/07/17 Hydrocodone Bit/Acetaminophen [[place] 10-325 Tablet] 1 tab PO QIDP PRN 09/07/17 Hydroxychloroquine [Plaquenil*] 200 mg PO DAILY 09/07/17 Zolpidem Tartrate [Ambien] 5 mg PO BEDTIME PRN PRN 09/07/17 Mycophenolate Mofetil [Cellcept] 2 tab PO BID 08/02/19 Na Bicarb Tab [Sodium Bicarb 325 MG Tab*] 650 mg PO QID #60 tab 08/04/19 Calcitrol [Rocaltrol*] 0.5 mcg PO DAILY #60 cap 08/30/20 Furosemide [Lasix*] 1 tab PO BID 08/30/20 Ondansetron [Zofran (Odt)*] 1 tab PO DAILY PRN 08/30/20 PHENYTOIN ER Cap [Dilantin ER Cap] 300 mg PO BEDTIME #90 cap 08/30/20 New Medications: PHENYTOIN ER Cap [Dilantin ER Cap] 300 mg PO BEDTIME #90 cap Calcitrol [Rocaltrol*] 0.5 mcg PO DAILY #60 cap Diet: ADA Activity: Ad jorge Followup: Unknown,U [Primary Care Provider] - 1-2 Weeks Juan Torres MD [ASSOCIATE-ACTIVE - CAN ADMIT] - 2-3 Days (Call the office next week for an appointment.)
[2020-08-30] MEDS ORDERED: CELLCEPT 500 MG PO SCH (21:00)
--- NOTE | 2020-08-31 13:32 | RAD REPORT ---
EXAM DESCRIPTION: CT - Head Brain Wo Cont - 08/30/2020 6:[address] Head Without Intravenous Contrast CLINICAL HISTORY: The patient is 50 years old and is Female; SEIZURE TECHNIQUE: Axial computed tomography images of the head/brain without intravenous contrast. Sagitt al and coronal reformatted images were created and reviewed. This CT exam was performed using one o r more of the following dose reduction techniques: automated exposure control, adjustment of the mA and/or kV according to patient size, and/or use of iterative reconstruction technique. COMPARISON: No relevant prior studies available. FINDINGS: BRAIN: There is diffuse cerebral atrophy present, consistent with this patient's age. There is patchy hypoattenuation of the deep white matter which is non-specific, but most likely owing to chronic small vessel ischemic change in a patient of this age group. No intracranial hemorrhage , mass effect, or midline shift is seen. There are no extra-axial fluid collections. VENTRICLES: Unremarkable. No ventriculomegaly. BONES/JOINTS: No acute fracture. SOFT TISSUES: Unremarkable. SINUSES: Unremarkable as visualized. No acute sinusitis. MASTOID AIR CELLS: Unremarkable as visualized. No mastoid effusion. ORBITS: Unremarkable as visualized. IMPRESSION: Age-related atrophy and chronic white matter ischemic changes, with no evidence of an ac [place] intracranial abnormality. Electronically signed by: Olive Manning MD 08/30/2020 4:41 AM [employer] Due to temporary technical issues with the PACS/Fluency reporting system, reports are being signed by the in house radiologists without review as a courtesy to insure prompt reporting. The interpreting radiologist is fully responsible for the content of the report.
== END 2020-08-30 17:44 | disposition home or self-care (01) ==
LOC: ER 02:51 → INTOOBSV 07:26 → 2ND 07:26
PROVIDERS: ADMIT Internal Medicine; ATTEND Internal Medicine
DX: I48.91 Unspecified atrial fibrillation (principal); G40.909 Epilepsy, unspecified, not intractable, without status epilepticus; M32.9 Systemic lupus erythematosus, unspecified; Z20.822 Contact with and (suspected) exposure to COVID-19; R94.31 Abnormal electrocardiogram [ECG] [EKG]; E11.22 Type 2 diabetes mellitus with diabetic chronic kidney disease; I12.9 Hypertensive chronic kidney disease with stage 1 through stage 4 chronic kidney disease, or unspecified chronic kidney disease; N18.4 Chronic kidney disease, stage 4 (severe); I25.10 Atherosclerotic heart disease of native coronary artery without angina pectoris; F32.9 Major depressive disorder, single episode, unspecified; E87.6 Hypokalemia; E87.2 Acidosis
CPT/HCPCS: 36415; 70450; 71045; 80048; 80076; 82947; 83735; 83880; 84484; 85025; 85610; 93005; 99285; G0378; J1170; U0003

== ENCOUNTER 2021-01-08 14:08 | Emergency (ER) | payer OTHER ==
[2012-05-20 12:01] VITALS: BP 169/96
--- OUTSIDE RECORDS SUMMARY | 2021-01-08 14:13 | XMS REPORT | Continuity of Care Document ---
:1970 Author Organization [facility] t Address [address] [place] [address] Care Team Providers Name Role Phone Pcp Primary Care Physician Unavailable Zion WALTER, T Attending Clinician ROD Attending Clinician Unavailable DAVID Attending Clinician Unavailable CAROLYN LI Attending Clinician Unavailable ROD Admitting Clinician Unavailable DAVID Admitting Clinician Unavailable CAROLYN LI Admitting Clinician Unavailable Problems Condition Condition Condition Status Onset Resolution Last Treating Co mments Source Name Details Category Date Date Treatment Clinician Date Hypertensi Hypertensi Disease Active [place] ve ve 1-12 [facility] emergency emergency 00:00: st 00 Attention Attention Disease Active 2018-08 Ronny ston to to 10-25 [facility] ileostomy ileostomy 00:00: st 00 Type 2 Type 2 Disease Active 2018-08 [place] diabetes diabetes 1-04 Method i mellitus mellitus 00:00: st 00 CKD CKD Disease Active 2018-08 [place] (chronic (chronic 1-04 [facility] i kidney kidney 00:00: st disease) disease) 00 stage 4, stage 4, GFR 15-29 GFR 15-29 ml/min ml/min HTN HTN Disease Active 2018-08 [place] (hypertens (hypertens 1-04 Me thodi ion) ion) 00:00: st 00 SLE SLE Disease Active 2018-08 [place] (systemic (systemic 04 Meth macarena lupus lupus 00:00: st erythemato erythemato 00 al al related related syndrome) syndrome) Rheumatoid Rheumatoid Disease Active 2019 [place] arthritis arthritis 1-04 Meth macarena 00:00: st 00 Attention Attention Disease Active 2018-08 Ronny ston to to 09-01 [facility] colostomy colostomy 00:00: st 00 History of History of Disease Active 2018-[address] [facility] ischemic ischemic 0-17 Method i colitis colitis 00:00: st 00 Abdominal Abdominal Disease Active 2017-[address] [facility] pain pain 09-27 [facility]: Medical 00 [place] Systemic Systemic Disease Active 2017-08 [facility] lupus lupus 09-27 [facility] - erythemato erythemato 00:00: Oh dical al al 00 [place] Essential Essential Disease Active 2017-[address] hypertensi hypertensi 09-27 Gilda kes - on on 00:00: Medical 00 [place] Type 2 Type 2 Disease Active 2017-[address] [facility] diabetes diabetes 09-27 [facility] - mellitus mellitus 00:00: Medica l with with 00 Center kidney kidney complicati complicati on, with on, with long-term long-term current current use of use of insulin insulin Colostomy Colostomy Disease Active 2017-[address] complicati complicati 09-27 [facility]ilda kes - on on 00:00: Medical 00 [place] bright red bright red Disease Active 2017-[address] blood in blood in 09-27 [facility] - colostomy colostomy 00:00: Medi valentin 00 Center HTN HTN Disease Active 2017-[address] (hypertens (hypertens -30 Gilda kes - ion), ion), 00:00: Medical malignant malignant 00 Cent er Lupus Lupus Disease Active 2017-[address] nephritis nephritis 09-27 [facility] s - 00:00: Medical 00 [place] DAE (acute DAE (acute Disease Active 2017-[address] kidney kidney 09-27 [facility] - injury) injury) 00:00: Medical 00 [place] Hypernatre Hypernatre Disease Active 2017-[address] charisse charisse 09-27 [facility] - 00:00: Medical 00 [place] Hypokalemi Hypokalemi Disease Active 2017-[address] a a 09-27 [facility] - 00:00: Medical 00 Center Colostomy Colostomy Disease Active Ronny ston in place in place 02-23 Method i 00:00: st 00 Allergies, Adverse Reactions, Alerts Allergy Allergy Status Severity Reaction(s) Onset Inactive Treating Comm ents Source Name Type Date Date Clinician Anjali Aguilalyubov Active 2017-[address] [facility] h ty to 09-27 [facility] - Containi adverse 00:00: Medical ng reaction 00 Center Products s Shellfis Propensi Active Rash nausea, [place] h ty to 05-17 headache, [facility] Containi adverse 00:00: weakness st ng reaction 00 Products s to drug Morphine Propensi Active Palpitations [place] ty to 05-13 [facility] adverse 00:00: st reaction 00 s to drug Family History Family Member Diagnosis Comments Start Date Stop Date Source Natural father Kidney disease [facility] Natural father Kidney cancer [facility] Natural mother Cancer [facility] Natural mother Hypertension [facility] Natural mother Uterine cancer [place] [facility] Natural sister Diabetes [facility] Social History Social Habit Start Date Stop Date Quantity Comments Source History [facility] Alcohol Std Drinks Medica [facility] History [facility] - Alcohol Binge Medical [facility] ter Tobacco use and 2019-08-27 2019-08-27 Never used [facility] ethodist exposure 00:00:00 00:00:00 Alcohol intake 2019-08-27 2019-08-27 Current [facility] thodist 00:00:00 00:00:00 non-drinker of alcohol (finding) History [facility] 2018-07-28 2018-07-[address] [facility] - Alcohol Frequency 00:00:00 00:00:00 [facility] Sex Assigned At [birth year] [facility] ethodist 00:00:00 00:00:00 Smoking Status Start Date Stop Date Source Never smoker [facility] Medications Ordered Filled Start Stop Current Ordering Indication Dosage Frequency Signature Comments Components Source Medication Medication Date Date Medication? Clinician (SIG) Name Name hydroxychlo 2020-0 Yes 500mg Q.5D Take 500 [place] roquine 1-21 mg by [facility] (PLAQUENIL) 16:02: mouth 2 st 200 mg 14 (two) tablet times a day. HYDROCODONE 2020-0 Yes Take by Ronny ston /ACETAMINOP 1-21 mouth as Meth macarena HEN (NORCO 16:02: needed. st ORAL) 14 ALPRAZolam 2019-0 Yes .5mg Q.5D Take 0.5 Ronny ston (XANAX) 0.5 1-21 mg by [facility] MG tablet 16:02: mouth 2 st 14 (two) times a day as needed for anxiety. sertraline 2019-0 Yes 25mg QD Take 25 mg [place] (ZOLOFT) 25 1-21 by mouth Meth macarena MG tablet 16:02: daily. st 14 pilocarpine 2019-0 Yes 5mg QD Take 5 mg [place] (SALAGEN) 5 1-21 by mouth Meth macarena MG tablet 16:02: daily. st 14 sodium 2019-0 Yes 648mg QD Take 648 [place] bicarbonate 1-21 mg by [facility] 650 mg 16:02: mouth st tablet 14 daily. doxazosin 2017-08 Yes 4mg Take [address] (CARDURA) 2 2-04 by mouth. Jose es - MG tablet 08:16: Medical 44 Center pantoprazol 2017-08 Yes 40mg QD Take [address] e 2-04 by mouth [facility] - (PROTONIX) 08:16: daily. Medic al 40 MG 44 Center tablet zolpidem 2017-08 Yes 10mg QD Take [address] (AMBIEN) 10 1-25 by mouth Luke s - mg tablet 00:00: nightly. Medi valentin 00 Center ondansetron 2017-08 Yes DIS 1 T ON [...] - 100 MG 00:00: Medical capsule 00 [place] hydroxychlo 2017-08 Yes TK 1 T PO [...] mg 00 (two) tablet times a day. mycophenola Yes 1000mg Q.5D Take 1,[address] te 4-07 mg by [facility] - (CELLCEPT) 00:00: mouth 2 Medi valentin 500 mg 00 (two) Center tablet times daily. amLODIPine 2014-08 Yes 10mg Take [address] (NORVASC) 2-11 by mouth. [facility] - 10 MG 00:00: Medical tablet 00 [place] cloNIDine 2014-08 Yes .3mg Q.[id number] Take 0.[address] HCl 1-11 [id number] mg by [facility] - (CATAPRES) 00:00: 3D mouth 3 Medi valentin 0.3 MG 00 (three) Center tablet times daily . furosemide 2014-08 Yes 80mg Take [address] (LASIX) 40 1-11 by mouth . Jose es - MG tablet 00:00: Medical 00 [place] hydrALAZINE 2014-08 Yes 50mg Q.[id number] Take [address] (APRESOLINE 1-11 [id number] by mouth 3 [facility] - ) 50 MG 00:00: 3D (three) Medical tablet 00 times Center daily. metoprolol 2014-08 Yes 100mg Q.5D Take [address] (LOPRESSOR) 1-11 mg by [facility] - 100 MG 00:00: mouth 2 Medical tablet 00 (two) Center times daily. Procedures This patient has no known procedures. Plan of Care Planned Activity Planned Date Details Comments Source Future Scheduled 2021-04-[address] [facility] - Test 00:00:00 (Season Ended) [code = Medic al [place] INFLUENZA VACCINE (Season Ended)] Future Scheduled 2021-03-29 INFLUENZA VACCINE [place] [facility] Test 00:00:00 [code = INFLUENZA VACCINE] Future Scheduled 2020-08-[address] [facility] - Test 00:00:00 (12+) [code = Medical Center DEPRESSION SCREENING (12+)] Future Scheduled 2020 SHINGLES VACCINES ([address] [facility] - Test 00:00:00 of 2) [code = SHINGLES Medic al Center VACCINES (1 of 2)] Future Scheduled 2020 BREAST CANCER [facility] thodist Test 00:00:00 SCREENING [code = BREAST CANCER SCREENING] Future Scheduled 2020 COLONOSCOPY SCREENING [place] [facility] Test 00:00:00 [code = COLONOSCOPY SCREENING] Future Scheduled 2020 SHINGLES VACCINES (#1) H [facility] Test 00:00:00 [code = SHINGLES VACCINES (#1)] Future Scheduled 2019-01-[address] Gilda kes - Test 00:00:00 [facility] (procedure) [code = 81893768] Future Scheduled 2018-08-[address] [facility] - Test 00:00:00 WELLNESS (YEAR 2 or Medical Center FIRST YEAR if no IPPE) [code = MEDICARE ANNUAL WELLNESS (YEAR 2 or FIRST YEAR if no IPPE)] Future Scheduled [address] [facility] - Test 00:00:00 (procedure) [code = [facility] 46306551] Future Scheduled 2014-06-[address] [facility] - Test 00:00:00 0-64 YRS (2 of 3 - Medical C enter PCV13) [code = PNEUMOCOCCAL VACCINE 0-64 YRS (2 of 3 - PCV13)] Future Scheduled [address] [facility] es - Test 00:00:[address] [facility] cervix (procedure) [code = 048737903] Future Scheduled 1991 Screening for [facility] thodist Test 00:00:00 malignant neoplasm of cervix (procedure) [code = 776439495] Future Scheduled 1989 DTAP/TDAP/TD VACCINES [facility] - Test 00:00:00 (1 - Tdap) [code = Medical C enter DTAP/TDAP/TD VACCINES (1 - Tdap)] Future Scheduled 1988 HEPATITIS C SCREENING [facility] - Test 00:00:00 [code = HEPATITIS C Medical Center SCREENING] Future Scheduled 1988 Hepatitis C screening [place] [facility] Test 00:00:00 (procedure) [code = 038024167] Future Scheduled 1986 COVID-19 VACCINE (1) Ronny ston [facility] Test 00:00:00 [code = COVID-19 VACCINE (1)] Future Scheduled 1980 DIABETIC EYE EXAM [facility] - Test 00:00:00 [code = DIABETIC EYE Medical Center EXAM] Future Scheduled [address] [facility] - Test 00:00:00 examination Medical Center (regime/therapy) [code = 456566765] Future Scheduled 1980 Urine screening for [facility] - Test 00:00:00 protein (procedure) Medical Center [code = 622648856] Future Scheduled 1980 DIABETES: RETINAL EYE [place] [facility] Test 00:00:00 EXAM [code = DIABETES: RETINAL EYE EXAM] Future Scheduled 1980 DIABETIC FOOT EXAM [place] [facility] Test 00:00:00 [code = DIABETIC FOOT EXAM] Future Scheduled [address] [facility] - Test 00:00:00 malignant neoplasm of Medica l Center breast (procedure) [code = 090575898] Future Scheduled [address] [facility] - Test 00:00:00 malignant neoplasm of Medica l Center colon (procedure) [code = 924962390] Encounters Start End Encounter Admission Attending Care Care Encounter Source Date/Time Date/Time Type Type Clinicians Facility Department ID 2020-11-12 2020-11-12 Office Zion [facility] [id number] 13:40:03 14:10:03 Visit Ligia Gonzalez [id number] Jose Francisco [id number] Bridget [id number] [facility]5 [facility] 2019-09-09 2019-09-18 Inpatient GABI VELASCO [facility] 012 [id number] [place] 00:00:00 00:00:[address] 2019-08-24 2019-09-04 [facility] [id number] [place] [address] 00:00:00 00:00:[address] JAMESON [address] 2019-08-23 2019-08-23 Outpatient DAVID, [facility] [id number] [place] 00:00:00 00:00:00 JAMESON [address] 2019-08-14 2019-08-14 Outpatient DAVID, [facility] [id number] [place] 00:00:00 00:00:00 JAMESON [address] 2019-07-02 2019-07-13 Inpatient DAVID, [place] [address] [id number] [place] 00:00:00 00:00:00 JAMESON [address] 2019-06-14 2019-06-14 Outpatient DAVID, [facility] 021 [id number] [place] 00:00:00 00:00:00 JAMESON [address] Results Test Description Test Time Test Comments Results Result Comments Source BLOOD CULTURE 2018-08-02 17:01:00 Test Item Value Reference Range Interpretation Comme nts CULTURE (BEAKER) (test code = 1095) No growth in 5 days LUPUS ANTICOAGULANT SCREEN WITH REFLEX TO [id number] 16:08:00 Test Item Value Reference Range Interpretation Comments DRVV SCREEN RATIO 1.55 <1.20 H (BEAKER) (test code = 2707) DRVV CONFIRM RATIO 0.93 (test code = 2709) DRVV NORMALIZED RATIO 1.67 <1.20 H (test code = 2710) DRVV INTERPRETATION Positive screen for (BEAKER) (test code = Lupus Anticoagulant 2406) with hexagonal phospholipid confirmation. Suggest repeat testing in 12 weeks and when patient not receiving anticoagulant therapy. PROTIME (BEAKER) (test 15.0 seconds 11.7-14.7 H code = 759) INR (BEAKER) (test code 1.2 <=5.9 = 370) PARTIAL THROMBOPLASTIN 36.1 seconds 22.5-36.0 H TIME (BEAKER) (test code = 760) PTT-LA (BEAKER) (test 45.2 32.0-41.8 H code = [id number]) [id number] Cindy Chavira MD (BEAKER) (test code = (electronic signature) 1600) HEXAGONAL [id number] 14:08:00 Test Item Value Reference Range Interpretation Comments HEXAGONAL PHOSPHOLIPID (BEAKER) Positive (test code = 1790) BLOOD [id number] 10:01:00 Test Item Value Reference Range Interpretation Comments CULTURE [facility] (test No growth in 5 days code = 1095) DOUBLE-STRANDED DNA (DSDNA) [id number] 05:52:00 Test Item Value Reference Range Interpretation Comments ANTI-DNA DS [facility] (test code = Negative 1055) CARDIOLIPIN ANTIBODIES, IGG AND [id number] 15:01:00 Test Item Value Reference Range Interpretation Comments ANTICARDIOLIPIN IGG ANTIBODY (BEAKER) < GPL <20.0 (test code = 712) ANTICARDIOLIPIN IGM ANTIBODY (AKER) 2.1 MPL <20.0 (test code = 713) Anticardiolipin IgG Result Interpretation: <20.0 GPL Normal>/= 20.0 GPL PositiveAnticardiolipin IgM Result Interpretation: <20.0 MPL Normal>/= 20.0 MPL PositiveCALCIUM, [id number] 05:12:00 Test Item Value Reference Range Interpretation Comments CALCIUM IONIZED ([facility]) (test 1.01 mmol/L 1.12-1.27 L code = 698) PH, BLOOD ([facility]) (test code = 7.45 1810) POCT-GLUCOSE [id number] 21:30:00 Test Item Value Reference Range Interpretation Comments POC-GLUCOSE METER 116 mg/dL 70-110 H TESTED AT [place] [address] ([facility]) ([facility] = [facility] 1538) [address] POCT-GLUCOSE [id number] 17:32:00 Test Item Value Reference Range Interpretation Comments POC-GLUCOSE METER 125 mg/dL 70-110 H TESTED AT [place] [address] ([facility]) (test code = [facility] 1538) [address] POCT-GLUCOSE [id number] 11:28:00 Test Item Value Reference Range Interpretation Comments POC-GLUCOSE METER 115 mg/dL 70-110 H TESTED AT [place] [address] ([facility]) (test code = [facility] 1538) [address] POCT-GLUCOSE [id number] 07:41:00 Test Item Value Reference Range Interpretation Comments POC-GLUCOSE METER 108 mg/dL 70-110 TESTED AT [place] [address] (BEAKER) (test code = [place] 1538) [address] [id number] 07:06:00 Test Item Value Reference Range Interpretation Comments MAGNESIUM (BEAKER) 1.8 mg/dL 1.6-2.6 Specimen slightly (test code = 627) hemolyzed [id number] 07:06:00 Test Item Value Reference Range Interpretation Comments PHOSPHORUS (BEAKER) 2.4 mg/dL 2.3-4.7 Specimen slightly (test code = 604) hemolyzed COMPREHENSIVE METABOLIC [id number] 07:06:00 Test Item Value Reference Range Interpretation [...] APPLICABLE FOR DIALYSIS PATIEN TS. HEPATIC FUNCTION [id number] 07:06:00 Test Item Value Reference Range Interpretation [...] slightly (test code = 347) hemolyzed CALCIUM, [id number] 06:42:00 Test Item Value Reference Range Interpretation Comments CALCIUM IONIZED (BEAKER) (test 1.16 mmol/L 1.12-1.27 code = 698) PH, BLOOD (BEAKER) (test code = 7.42 1810) CBC W/PLT COUNT & AUTO [id number] 05:10:00 Test Item Value Reference Range Interpretation [...] PERCENT (BEAKER) (test code = 2801) POCT-GLUCOSE [id number] 23:12:00 Test Item Value Reference Range Interpretation Comments POC-GLUCOSE METER 95 mg/dL 70-110 TESTED AT [place] [address] ([facility]) (test code = [facility] [address] 1538) POCT-GLUCOSE [id number] 18:51:00 Test Item Value Reference Range Interpretation Comments POC-GLUCOSE METER 118 mg/dL 70-110 H TESTED AT [facility] 6720 ([facility]) (test code = [facility] 1538) [address] HEMOGLOBIN AND [id number] 16:28:00 Test Item Value Reference Range Interpretation Comments HEMOGLOBIN ([facility]) (test code = 8.7 GM/DL 11.2-15.7 L 410) HEMATOCRIT ([facility]) (test code = 27.8 % 34.1-44.9 L 411) POCT-GLUCOSE [id number] 15:00:00 Test Item Value Reference Range Interpretation Comments POC-GLUCOSE METER 140 mg/dL 70-110 H TESTED AT [place] [address] ([facility]) (test code = JOB Osei [facility] 1538) [address] POCT-GLUCOSE [id number] 14:46:00 Test Item Value Reference Range Interpretation Comments POC-GLUCOSE METER 44 mg/dL 70-110 L Notified Sea Amos MD/TESTED AT ([facility]) (test code = [place] [address] [facility]) [facility] 7[address] 0 POCT-GLUCOSE [id number] 13:05:00 Test Item Value Reference Range Interpretation Comments POC-GLUCOSE METER 87 mg/dL 70-110 TESTED AT [place] [address] ([facility]) (test code = JOB Osei [place] [id number] 1538) POCT-GLUCOSE [id number] 11:57:00 Test Item Value Reference Range Interpretation Comments POC-GLUCOSE METER 65 mg/dL 70-110 L Notified Sea Amos MD/TESTED AT ([facility]) (test code = [address] 1538) [facility] 7703 0 VANCOMYCIN LEVEL, [id number] 10:58:00 Test Item Value Reference Range Interpretation Comments VANCOMYCIN TROUGH ([facility]) (test 14.2 ug/mL 10.0-20.0 code = 522) RAD, ABDOMEN/KUB, 1 VIEW [id number] 09:41:00Reason for exam:->abdominal painFINAL REPORT AP abdomen, two images HISTORY: Abdominal pain COMPARISON: 07/28/2013 IMPRESSION:Grossly nonobstructive bowel gas pattern. Intact skeleton. Signed: Vikas Guillen MDReport Verified Date/Time: 07/30/2018 09:41:59 Reading Location: [address] ReadingRoom POCT-GLUCOSE [id number] 07:59:00 Test Item Value Reference Range Interpretation Comments POC-GLUCOSE METER 87 mg/dL 70-110 TESTED AT [facility] 6720 (BEAKER) (test code = [place] [address] 1538) CALCIUM, [id number] 06:53:00 Test Item Value Reference Range Interpretation Comments CALCIUM IONIZED (BEAKER) (test 1.12 mmol/L 1.12-1.27 code = 698) PH, BLOOD (BEAKER) (test code = 7.44 1810) COMPREHENSIVE METABOLIC [id number] 06:38:00 Test Item Value Reference Range Interpretation [...] S NOT APPLICABLE FOR DIALYSIS PATIEN TS. [id number] 06:38:00 Test Item Value Reference Range Interpretation Comments PHOSPHORUS (BEAKER) (test code = 2.7 mg/dL 2.3-4.7 604) [id number] 06:38:00 Test Item Value Reference Range Interpretation Comments MAGNESIUM (BEAKER) (test code = 1.6 mg/dL 1.6-2.6 627) HEPATIC FUNCTION [id number] 06:38:00 Test Item Value Reference Range Interpretation [...] (test code = 9 U/L 6-55 347) CBC W/PLT COUNT & AUTO [id number] 06:11:00 Test Item Value Reference Range Interpretation [...] PERCENT (BEAKER) (test code = 2801) POCT-GLUCOSE [id number] 21:38:00 Test Item Value Reference Range Interpretation Comments POC-GLUCOSE METER 96 mg/dL 70-110 TESTED AT [place] [address] ([facility]) (test code = [facility] [address] 1538) POCT-GLUCOSE [id number] 18:19:00 Test Item Value Reference Range Interpretation Comments POC-GLUCOSE METER 121 mg/dL 70-110 H TESTED AT [facility] 6720 ([facility]) (test code = [facility] 1538) [address] T4, [id number] 12:35:00 Test Item Value Reference Range Interpretation Comments FREE T4 (BEAKER) (test code = 655) 1.25 ng/dL 0.70-1.48 POCT-GLUCOSE [id number] 12:27:00 Test Item Value Reference Range Interpretation Comments POC-GLUCOSE METER 127 mg/dL 70-110 H TESTED AT [facility] 6720 (BEAKER) (test code = [place] 153) [address] TSH/FREE T4 IF [id number] 12:07:00 Test Item Value Reference Range Interpretation Comments THYROID STIMULATING HORMONE 0.25 uIU/mL 0.35-4.94 L (BEAKER) (test code = 772) [id number] 12:07:00 Test Item Value Reference Range Interpretation Comments THYROID STIMULATING HORMONE 0.25 uIU/mL 0.35-4.94 L (BEAKER) (test code = 772) LACTIC ACID, VENOUS, WHOLE [id number] 11:35:00 Test Item Value Reference Range Interpretation Comments LACTATE BLOOD VENOUS 0.6 mmol/L 0.5-2.2 Specime n slightly (2) (BEAKER) (test hemolyzed code = 2232) VANCOMYCIN LEVEL, [id number] 07:11:00 Test Item Value Reference Range Interpretation Comments VANCOMYCIN RANDOM (BEAKER) (test 17.9 ug/mL code = 523) Reference Range: No [id number] 07:09:00 Test Item Value Reference Range Interpretation Comments PHOSPHORUS (BEAKER) (test code = 3.9 mg/dL 2.3-4.7 604) [id number] 07:09:00 Test Item Value Reference Range Interpretation Comments MAGNESIUM (BEAKER) (test code = 1.7 mg/dL 1.6-2.6 627) BASIC METABOLIC [id number] 07:09:00 Test Item Value Reference Range Interpretation [...] APPLICABLE FOR DIALYSIS PATIEN TS. HEPATIC FUNCTION [id number] 07:09:00 Test Item Value Reference Range Interpretation [...] code = 10 U/L 6-55 347) TROPONIN [id number] 06:54:00 Test Item Value Reference Range Interpretation Comments TROPONIN I (BEAKER) (test code = 0.08 ng/mL 0.00-0.03 H 397) LACTIC ACID, VENOUS, WHOLE [id number] 06:45:00 Test Item Value Reference Range Interpretation Comments LACTATE BLOOD VENOUS 0.8 mmol/L 0.5-2.2 Specime n slightly (2) (BEAKER) (test hemolyzed code = 4155) CBC W/PLT COUNT & AUTO [id number] 06:00:00 Test Item Value Reference Range Interpretation [...] PERCENT (BEAKER) (test code = 2801) CALCIUM, [id number] 05:58:00 Test Item Value Reference Range Interpretation Comments CALCIUM IONIZED (BEAKER) (test 1.12 mmol/L 1.12-1.27 code = 698) PH, BLOOD (BEAKER) (test code = 7.39 1810) EOSINOPHIL SMEAR, [id number] 20:17:00 Test Item Value Reference Range Interpretation Comments EOSINOPHIL SMEAR, URINE (BEAKER) No EOS seen No EOS seen (test code = 1851) BASIC METABOLIC [id number] 20:01:00 Test Item Value Reference Range Interpretation [...] DIALYSIS PATIEN TS. LACTIC ACID, VENOUS, WHOLE [id number] 19:59:00 Test Item Value Reference Range Interpretation Comments LACTATE BLOOD VENOUS 0.8 mmol/L 0.5-2.2 Specime n slightly (2) (BEAKER) (test hemolyzed code = 2872) CT, BRAIN/STROKE [id number] 19:59:00Stroke Protocol. Phone/Page MD for reporting.Reason for [...] on 07/28/2018 at 1955. Signed: Travis Fink Verified Date/Time: 07/28/2018 19:59:01 Reading Location: [facility] Radiology Reading Room [id number] 19:51:00 Test Item Value Reference Range Interpretation Comments PARTIAL THROMBOPLASTIN TIME 33.1 seconds 22.5-36.0 (BEAKER) (test code = 760) PROTHROMBIN [id number] 19:50:00 Test Item Value Reference Range Interpretation Comments PROTIME (BEAKER) (test code = 15.6 seconds 11.7-14.7 H 759) INR (BEAKER) (test code = 370) 1.2 <=5.9 RECOMMENDED COUMADIN/WARFARIN INR THERAPY RANGESSTANDARD DOSE: 2.0 - 3.0 Includes: PROPHYLAXIS forvenous thrombosis, systemic embolization; TREATMENT for venous thrombosis and/or pulmonary embolus.HIGH RISK: Target INR is 2.5-3.5 for patients with mechanical heart valves.HEMOGLOBIN AND [id number] 19:41:00 Test Item Value Reference Range Interpretation Comments HEMOGLOBIN (BEAKER) (test code = 11.3 GM/DL 11.2-15.7 410) HEMATOCRIT (BEAKER) (test code = 35.4 % 34.1-44.9 411) CBC W/PLT COUNT & AUTO [id number] 19:41:00 Test Item Value Reference Range Interpretation [...] PERCENT (BEAKER) (test code = 2801) TROPONIN [id number] 19:26:00 Test Item Value Reference Range Interpretation Comments TROPONIN I (BEAKER) (test code = 0.11 ng/mL 0.00-0.03 H 397) PROTEIN, RANDOM [id number] 19:19:00 Test Item Value Reference Range Interpretation Comments PROTEIN, URINE (BEAKER) (test code 325 mg/dL 0-14 H = 1569) POCT-GLUCOSE [id number] 19:00:00 Test Item Value Reference Range Interpretation Comments POC-GLUCOSE METER 158 mg/dL 70-110 H TESTED AT [facility] 6720 (BEAKER) (test code = [place] 1538) [address] CREATININE, RANDOM [id number] 18:52:00 Test Item Value Reference Range Interpretation Comments CREATININE URINE (BEAKER) (test 95.8 mg/dL code = 375) Reference Range: No NormalsSODIUM, RANDOM [id number] 18:52:00 Test Item Value Reference Range Interpretation Comments SODIUM URINE (BEAKER) (test code = 28 meq/L 243) Reference Range: No NormalsURINALYSIS W/ [id number] 18:02:00 Test Item Value Reference Range Interpretation [...] SOURCE(BEAKER) (test code Urine, Clean Catch = 8057) POCT-GLUCOSE [id number] 17:21:00 Test Item Value Reference Range Interpretation Comments POC-GLUCOSE METER 137 mg/dL 70-110 H TESTED AT [facility] 6720 (BEAKER) (test code = [place] 1538) [address] BASIC METABOLIC [id number] 17:14:00 Test Item Value Reference Range Interpretation [...] APPLICABLE FOR DIALYSIS PATIEN TS. Call results [id number] ACID, VENOUS, WHOLE [id number] 14:19:00 Test Item Value Reference Range Interpretation Comments LACTATE BLOOD VENOUS (2) (BEAKER) 1.1 mmol/L 0.5-2.2 (test code = 2872) THROMBIN [id number] 13:02:00 Test Item Value Reference Range Interpretation Comments THROMBIN TIME (BEAKER) (test code = 17.8 secs 13.8-20.0 550) [id number] 13:01:00 Test Item Value Reference Range Interpretation Comments PROCALCITONIN (BEAKER) (test code 0.09 ng/mL <0.05 H = 3036) SEPSIS RISK (ng/mL)Low: 0.05-0.50Intermediate: 0.51-2.00High: >=2.011:1 MIXING STUDY, [id number] 12:38:00 Test Item Value Reference Range Interpretation Comments PROTIME (BEAKER) (test code = 15.0 seconds 11.7-14.7 H 759) PARTIAL THROMBOPLASTIN TIME 36.1 seconds 22.5-36.0 H (BEAKER) (test code = 760) PT 1/1 MIX (BEAKER) (test code = 14.4 SECS 11.7-14.7 1595) PTT 1/1 MIX (BEAKER) (test code 35.5 SECS 22.5-36.0 = 1596) TROPONIN [id number] 12:01:00 Test Item Value Reference Range Interpretation Comments TROPONIN I (BEAKER) (test code = 0.13 ng/mL 0.00-0.03 H 397) HCG, QUANTITATIVE, [id number] 11:58:00 Test Item Value Reference Range Interpretation Comments GONADOTROPIN, CHORIONIC (HCG) QUANT < mIU/mL 0-10 (BEAKER) (test code = 649) Non- Females: <10 mIU/mL Females: Gestation Age Reference Range(mIU/mL) 0.2-1 Week 5-50 1-2 Weeks 50-500 2-3 Weeks 100-5,000 3-4Weeks 500-10,000 4-5 Weeks 1,000-50,000 5-6 Weeks 10,000-100,000 6-8 Weeks 15,000-200,000 2-3 Months 10,000-100,[id number] 11:55:00 Test Item Value Reference Range Interpretation Comments LIPASE (BEAKER) (test code = 749) 31 U/L 8-78 [id number] 11:55:00 Test Item Value Reference Range Interpretation Comments AMYLASE (BEAKER) (test code = 349) 101 U/L 25-125 COMPREHENSIVE METABOLIC [id number] 11:55:00 Test Item Value Reference Range Interpretation [...] NOT APPLICABLE FOR DIALYSIS PATIEN TS. C-REACTIVE [id number] 11:55:00 Test Item Value Reference Range Interpretation Comments C-REACTIVE PROTEIN (BEAKER) (test 0.42 mg/dL 0.00-0.50 code = 676) LACTIC ACID, VENOUS, WHOLE [id number] 11:51:00 Test Item Value Reference Range Interpretation Comments LACTATE BLOOD VENOUS 1.5 mmol/L 0.5-2.2 Specime n slightly (2) (BEAKER) (test hemolyzed code = 9775) [id number] 11:44:00 Test Item Value Reference Range Interpretation Comments PARTIAL THROMBOPLASTIN TIME 35.4 seconds 22.5-36.0 (BEAKER) (test code = 224) CBC W/PLT COUNT & AUTO [id number] 11:30:00 Test Item Value Reference Range Interpretation [...] PERCENT (BEAKER) (test code = 2801) POCT-GLUCOSE [id number] 11:20:00 Test Item Value Reference Range Interpretation Comments POC-GLUCOSE METER 167 mg/dL 70-110 H TESTED AT [facility] 6720 (AMINAH) (test code = [place] 1538) [address] HEMOGLOBIN [id number] 11:15:00 Test Item Value Reference Range Interpretation Comments HEMOGLOBIN A1C (AMINAH) (test code = 5.6 % 4.3-6.1 368) PROTHROMBIN [id number] 08:24:00 Test Item Value Reference Range Interpretation Comments PROTIME (AMINAH) (test code = 15.3 seconds 11.7-14.7 H 759) INR (AMINAH) (test code = 370) 1.2 <=5.9 RECOMMENDED COUMADIN/WARFARIN INR THERAPY RANGESSTANDARD DOSE: 2.0 - 3.0 Includes: PROPHYLAXIS forvenous thrombosis, systemic embolization; TREATMENT for venous thrombosis and/or pulmonary embolus.HIGH RISK: Target INR is 2.5-3.5 for patients with mechanical heart valves.RAD, ABDOMEN/KUB, 1 VIEW [id number] 08:13:00Reason for exam:->abdominal painFINAL REPORT INDICATION:Abdominal pain. [...] necrosis, bilateral hip MRI is recommended. Signed: [facility] Verified Date/Time: 07/28 08:13:33 Reading Location: [place] [id number] Ortho Consult Reading Room ONIN [id number] 08:11:00 Test Item Value Reference Range Interpretation Comments TROPONIN I (AMINAH) (test code = 0.05 ng/mL 0.00-0.03 H 397) RAD, CHEST, 1 VIEW, NON [id number] 08:10:00Reason for exam:->chest painShould this be performed [...] 08:10:51 Reading Location: [facility] Radiology Reading Room BASIC METABOLIC [id number] 08:08:00 Test Item Value Reference Range Interpretation [...] S NOT APPLICABLE FOR DIALYSIS PATIEN TS. [id number] 08:04:00 Test Item Value Reference Range Interpretation Comments LIPASE (BEAKER) (test code = 749) 12 U/L 8-78 HEPATIC FUNCTION [id number] 08:04:00 Test Item Value Reference Range Interpretation [...] (test code = 347) hemolyzed COMPLEMENT COMPONENT [id number] 08:03:00 Test Item Value Reference Range Interpretation Comments C4 COMPLEMENT (BEAKER) (test code = 25 mg/dL 15-57 394) COMPLEMENT COMPONENT [id number] 08:03:00 Test Item Value Reference Range Interpretation Comments C3 COMPLEMENT (BEAKER) (test code = 125 mg/dL 82-193 393) POCT-BLOOD GASES, [id number] 07:57:00 Test Item Value Reference Range Interpretation Comments TEMP, CELSIUS-POC 37.0 (BEAKER) (test code = 1834) FIO2-POC (BEAKER) TESTED AT [facility] 6720 (test code = 1835) [place] [address] PH, ARTERIAL-POC 7.416 7.350-7.450 (BEAKER) (test code = 1836) PCO2, ARTERIAL-POC 29.8 mm Hg 35.0-45.0 L (BEAKER) (test code = 1837) PO2, ARTERIAL-POC 123.0 mm Hg 80.0-90.0 H (BEAKER) (test code = 1838) SO2, ARTERIAL-POC 99.0 % 96.0-97.0 H (BEAKER) (test code = 1839) HCO3, ARTERIAL-POC 19.2 meq/L 21.0-29.0 L (BEAKER) (test code = 1840) BASE EXCESS, -5.0 meq/L -2.0-3.0 L ARTERIAL-POC (BEAKER) (test code = 1841) [id number] 07:57:00 Test Item Value Reference Range Interpretation Comments POC-SODIUM (BEAKER) 146 meq/L 135-148 TESTED [place] [address] (test code = 1542) [facility] [address] [id number] 07:57:00 Test Item Value Reference Range Interpretation Comments POC-POTASSIUM 2.7 meq/L 3.6-5.5 L TESTED AT [place] [address] ([facility]) (test code [facility] [address] = 1540) [id number] 07:57:00 Test Item Value Reference Range Interpretation Comments POC-GLUCOSE ([facility]) 176 mg/dL 70-110 H TESTED AT [place] [address] (test code = 1855) [facility] [address] POCT-CALCIUM [id number] 07:57:00 Test Item Value Reference Range Interpretation Comments POC-CALCIUM IONIZED 1.15 mmol/L 1.12-1.27 TESTED [place] [address] ([facility]) (test code = [facility] Sea [facility] 1536) [address] [id number] 07:57:00 Test Item Value Reference Range Interpretation Comments POC-HEMATOCRIT 38 % 36-45 TESTED AT [place] [address] ([facility]) (test code = [facility] Sea [facility] [address]) [id number] 07:57:00 Test Item Value Reference Range Interpretation Comments POC-HEMOGLOBIN 12.9 g/dL 12.0-15.0 TESTED AT [place] [address] ([facility]) ([facility] = 1856) [id number] AT [place] [address] [place] [facility] [address] POCT-LACTIC ACID, [id number] 07:57:00 Test Item Value Reference Range Interpretation Comments POC-LACTIC ACID, 3.3 mmol/L 0.9-1.7 H TESTED AT [place] [address] VENOUS ([facility]) (test [facility] code = 2805) [address] CBC W/PLT COUNT & AUTO [id number] 07:47:00 Test Item Value Reference Range Interpretation Comments WHITE BLOOD CELL COUNT ([facility]) 9.6 K/ L 3.5-10.5 (test code = 775) RED BLOOD CELL COUNT ([facility]) 4.78 M/ L 3.93-5.22 (test code = [...] % 0-1 PERCENT (BEAKER) (test code = 9531)
[2021-01-08 14:49] LABS: Absolute Lymphocytes (CBC) 2.6 K/uL (0.7-4.9); Hematocrit 37.4 % (36.0-45.0); Lymphocytes % 46.1 % (15.3-44.8); MPV 7.8 fL (7.6-11.3); RBC Red Blood Cell Count 4.52 M/uL (3.86-4.86)
[2021-01-08 14:58] LABS: Protime INR 0.95
--- NOTE | 2021-01-08 15:05 | RAD REPORT ---
EXAM DESCRIPTION: CT - Head Brain Wo Cont - 01/08/2021 2:59 pm CLINICAL HISTORY: TRAUMA Fall, trauma, head injury COMPARISON: Head Brain Wo Cont dated 08/30/2020; HEAD BRAIN W O CONTRAST dated 02/18/2015 TECHNIQUE: All CT scans are performed using dose optimization technique as appropriate and may inclu de automated exposure control or mA/KV adjustment according to patient size. FINDINGS: No intracranial hemorrhage, hydrocephalus or extra-axial fluid collection.Mild periventric ular and deep white matter chronic microvascular ischemia.No areas of brain edema or evidence of midl ine shift. Mild fluid is present in the right mastoid air cell. The paranasal sinuses and mastoids are otherwise clear. The calvarium is intact. IMPRESSION: No acute intracranial abnormality. Mild right mastoid effusion.
[2021-01-08 15:08] LABS: ALT/SGPT 27 U/L (12-78); AST/SGOT 17 U/L (15-37); Albumin 3.5 g/dL (3.4-5.0); Alkaline Phosphatase 206 U/L (45-117); BUN Blood Urea Nitrogen 31 mg/dL (7-18); Bicarbonate 18 mmol/L (21-32); Bilirubin Direct < 0.1 mg/dL (0-0.2); Bilirubin Total 0.2 mg/dL (0.2-1.0); Glucose Level 115 mg/dL (74-106); Magnesium 2.1 mg/dL (1.8-2.4); NT PRO-BNP 1043 pg/mL (<125); Potassium 4.1 mmol/L (3.5-5.1); Protein, Total 8.7 g/dL (6.4-8.2); Sodium Level 142 mmol/L (136-145); Troponin (Emerg Dept Use Only) 0.02 ng/mL (0.0-0.045)
--- NOTE | 2021-01-08 15:21 | RAD REPORT ---
EXAM DESCRIPTION: RAD - Hip Left 2 View - 01/08/2021 3:05 pm CLINICAL HISTORY: PAIN COMPARISON: Hip Left 2 View dated 02/18/2015; Hip Left 2 View dated 04/12/2014 FINDINGS: No acute fracture or dislocation seen. Mild osteoarthritis.
--- NOTE | 2021-01-08 15:22 | RAD REPORT ---
EXAM DESCRIPTION: RAD - Chest Single View - 01/08/2021 3:05 pm CLINICAL HISTORY: CHEST PAIN Chest pain. COMPARISON: Chest Single View dated 08/30/2020; Chest Single View dated 09/08/2019; Chest Single View d ated 04/27/2018; Abdomen Acute Series dated 04/26/2018 FINDINGS: Portable technique limits examination quality. The lungs are grossly clear. The heart is normal in size. No displaced fractures. IMPRESSION: No acute intrathoracic process suspected.
[2021-01-08] MEDS ORDERED: ONDANSETRON 4 MG/2 ML VIAL ONE (16:35)
[2021-01-08] MEDS ORDERED: FENTANYL CITR 100 MCG/2 ML ONE (16:35)
--- NOTE | 2021-01-08 18:08 | EDPHYS ---
Physician Documentation [facility] Name: Babs Younger Age: 50 yrs Sex: Female : 1970 Arrival Date: 01/08/2021 Time: 14:10 Bed 3 Private MD: GENARO Physician Christiano Elizondo HPI: 01/08 16:06 This 50 yrs old Black Female presents to ER via Ambulatory with complaints of Chest jr8 Pain. 16:06 Patient signed in for chest pain and hip pain. While in waiting room had seizure. Was jr8 brought back for further evaluation. Patient without postictal state post generalized seizure. Stated that she fell a few days ago and hit left hip. Has had pain since then. Also having CP since her pfizer vaccination for covid . Severity of symptoms: At their worst the symptoms were moderate in the emergency department the symptoms are unchanged. The patient has not experienced similar symptoms in the past. The patient has not recently seen a physician. Historical: - Allergies: 14:32 Morphine; kg 14:32 SHELLFISH; kg - PMHx: 14:32 bowel obstruction; Diabetes - IDDM; ESRD; Hypertension; Lupus; Renal Disease; Seizures; kg - Immunization history:: Adult Immunizations up to date, Client reports receiving the 2nd dose of the Covid vaccine, Date received: December 18, 2020. - Social history:: Smoking status: Patient denies any tobacco usage or history of. ROS: 16:06 Eyes: Negative for injury, pain, redness, and discharge, ENT: Negative for injury, jr8 pain, and discharge, Neck: Negative for injury, pain, and swelling, Respiratory: Negative for shortness of breath, cough, wheezing, and pleuritic chest pain, Abdomen/GI: Negative for abdominal pain, nausea, vomiting, diarrhea, and constipation, Back: Negative for injury and pain, Skin: Negative for injury, rash, and discoloration. 16:06 Cardiovascular: Positive for chest pain. 16:06 MS/extremity: Positive for pain, tenderness, of the left hip. 16:06 Neuro: Positive for seizure activity. Exam: 16:06 Head/Face: Normocephalic, atraumatic. Eyes: Pupils equal round and reactive to light, jr8 extra-ocular motions intact. Lids and lashes normal. Conjunctiva and sclera are non-icteric and not injected. Cornea within normal limits. Periorbital areas with no swelling, redness, or edema. ENT: Nares patent. No nasal discharge, no septal abnormalities noted. Tympanic membranes are normal and external auditory canals are clear. Oropharynx with no redness, swelling, or masses, exudates, or evidence of obstruction, uvula midline. Mucous membranes moist. Neck: Trachea midline, no thyromegaly or masses palpated, and no cervical lymphadenopathy. Supple, full range of motion without nuchal rigidity, or vertebral point tenderness. No Meningismus. Cardiovascular: Regular rate and rhythm with a normal S1 and S2. No gallops, murmurs, or rubs. Normal PMI, no JVD. No pulse deficits. Respiratory: Lungs have equal breath sounds bilaterally, clear to auscultation and percussion. No rales, rhonchi or wheezes noted. No increased work of breathing, no retractions or nasal flaring. Abdomen/GI: Soft, non-tender, with normal bowel sounds. No distension or tympany. No guarding or rebound. No evidence of tenderness throughout. Back: No spinal tenderness. No costovertebral tenderness. Full range of motion. Skin: Warm, dry with normal turgor. Normal color with no rashes, no lesions, and no evidence of cellulitis. Neuro: Awake and alert, GCS 15, oriented to person, place, time, and situation. Cranial nerves II-XII grossly intact. Motor strength 5/5 in all extremities. Sensory grossly intact. 16:06 Musculoskeletal/extremity: Extremities: grossly normal except: noted in the left hip: pain, tenderness, ROM: intact in all extremities, Circulation is intact in all extremities. Sensation intact. Vital Signs: 14:19 BP 193 / 104; Pulse 118; Resp 20; Temp 99.0; Pulse Ox 94% on R/A; kg 15:15 BP 169 / 96; Pulse 95; Resp 18; Pulse Ox 100% on R/A; em 16:15 BP 170 / 98; Pulse 96; Resp 18; Pulse Ox 100% on R/A; em MDM: 14:36 Patient medically screened. [facility] 16:11 Data reviewed: vital signs, nurses notes, lab test result(s), EKG, radiologic studies, [facility] CT scan, plain films. Data interpreted: Pulse oximetry: on room air is 100 %. Interpretation: normal. Counseling: I had a detailed discussion with the patient and/or guardian regarding: the historical points, exam findings, and any diagnostic results supporting the discharge/admit diagnosis, lab results, radiology results, the need for outpatient follow up, a family practitioner, to return to the emergency department if symptoms worsen or persist or if there are any questions or concerns that arise at home. 01/08 14:36 Order name: Basic Metabolic Panel; Complete Time: 15:18 01/08 14:36 Order name: CBC with Diff; Complete Time: 15:18 01/08 14:36 Order name: LFT's; Complete Time: 15:18 01/08 14:36 Order name: Magnesium; Complete Time: 15:18 01/08 14:36 Order name: NT PRO-BNP; Complete Time: 15:18 01/08 14:36 Order name: PT-INR; Complete Time: 15:18 01/08 14:36 Order name: Troponin (emerg Dept Use Only); Complete Time: 15:18 01/08 14:36 Order name: XRAY Chest (1 view); Complete Time: 15:34 01/08 14:36 Order name: EKG; Complete Time: 14:37 01/08 14:36 Order name: Cardiac monitoring; Complete Time: 15:21 01/08 14:36 Order name: CT Head Brain wo Cont; Complete Time: 15:18 01/08 14:36 Order name: XRAY Hip LEFT 2 view; Complete Time: 15:22 01/08 14:36 Order name: EKG - Nurse/Tech; Complete Time: 15:21 01/08 14:36 Order name: IV Saline Lock; Complete Time: 15:21 01/08 14:36 Order name: Labs collected and sent; Complete Time: 15:21 01/08 14:36 Order name: O2 Per Protocol; Complete Time: 15:01/08 14:36 Order name: O2 Sat Monitoring; Complete Time: 15:21 Administered Medications: 16:20 Drug: Zofran (Ondansetron) 4 mg Route: IVP; Site: right antecubital; em 16:22 Drug: fentaNYL (PF) 50 mcg Route: IVP; Site: right antecubital; em Disposition: 01/08/21 16:12 Discharged to Home. Impression: Contusion of left hip, Epilepsy and recurrent seizures, Chest pain, unspecified. - Condition is Stable. - Discharge Instructions: Nonspecific Chest Pain, Seizure, Adult, Hip Pain. - Medication Reconciliation Form, Thank You Letter, Antibiotic Education, Prescription Opioid Use form. - Follow up: Private Physician; When: 2 - 3 days; Reason: Recheck today's complaints, Continuance of care, Re-evaluation by your physician. - Problem is new. - Symptoms have improved. Addendum: 01/10/2021 07:40 Co-signature as Attending Physician, Christiano Elizondo MD I agree with the assessment and c samaniego plan of care. Signatures: Dispatcher [employer] EDChristiano Saxena MD MD cha Munoz, Edgar, RN RN em Tanner Horowitz PA PA jr8 Shaila Mae kg Corrections: (The following items were deleted from the chart) 01/08 17:00 16:12 01/08/2021 16:12 Discharged to Home. Impression: Contusion of left hip; Epilepsy em and recurrent seizures; Chest pain, unspecified. Condition is Stable. Forms are Medication Reconciliation Form, Thank You Letter, Antibiotic Education, Prescription Opioid Use. Follow up: Private Physician; When: 2 - 3 days; Reason: Recheck today's complaints, Continuance of care, Re-evaluation by your physician. Problem is new. Symptoms have improved. jr8
--- NOTE | 2021-01-08 18:08 | ER ---
Nurse's Notes [facility] [place] Name: Babs Younger Age: 50 yrs Sex: Female : 1970 Arrival Date: 01/08/2021 Time: 14:10 Bed 3 Private MD: Diagnosis: Contusion of left hip;Epilepsy and recurrent seizures;Chest pain, unspecified Presentation: 01/08 14:19 Chief complaint: Patient states: Left hip pain x 3 days and chest pain. Upon checking kg into the ER at registration patient fell to the ground and started having convulsions. Coronavirus screen: Client denies travel out of the [place] in the last 14 days. Ebola Screen: Patient negative for fever greater than or equal to 101.5 degrees Fahrenheit, and additional compatible Ebola Virus Disease symptoms. Initial Sepsis Screen: Does the patient meet any 2 criteria? HR > 90 bpm. Does the patient have a suspected source of infection? No. Patient's initial sepsis screen is negative. Risk Assessment: Do you want to hurt yourself or someone else? Patient reports no desire to harm self or others. Onset of symptoms was January 04, 2021. 14:19 Method Of Arrival: Ambulatory kg 14:19 Acuity: ELVA 3 kg Historical: - Allergies: 14:32 Morphine; kg 14:32 SHELLFISH; kg - PMHx: 14:32 bowel obstruction; Diabetes - IDDM; ESRD; Hypertension; Lupus; Renal Disease; Seizures; kg - Immunization history:: Adult Immunizations up to date, Client reports receiving the 2nd dose of the Covid vaccine, Date received: December 18, 2020. - Social history:: Smoking status: Patient denies any tobacco usage or history of. Screenin:25 Abuse screen: Denies threats or abuse. Nutritional screening: No deficits noted. kg Tuberculosis screening: No symptoms or risk factors identified. Fall Risk Fall in past 12 months (25 points). Secondary diagnosis (15 points) seizures, IV access (20 points). Ambulatory Aid- None/Bed Rest/Nurse Assist (0 pts). Gait- Impaired (20 pts.). Mental Status- Oriented to own ability (0 pts). Total Bucio Fall Scale indicates High Risk Score (45 or more points). Fall prevention measures have been instituted. Side Rails Up X 2 Placed Close to Nursing Station Frequent Obs/Assessments Occuring As available patient and family educated on Fall Prevention Program and Strategies. Assessment: 14:25 General: Appears distressed, Behavior is calm, cooperative, appropriate for age, quiet. kg Pain: Complains of pain in left femoral area, left inguinal area and left hip Pain radiates to chest and left leg Pain currently is 9 out of 10 on a pain scale. at worst was 10 out of 10 on a pain scale. level that patient reports is acceptable is 5 out of 10 on a pain scale. Pain began 4 days. Neuro: No deficits noted. Level of Consciousness is awake, alert, obeys commands, Oriented to person, place, time, situation. Cardiovascular: Reports chest pain, Heart tones S1 S2 Capillary refill < 3 seconds. Respiratory: No deficits noted. Airway is patent Breath sounds are clear bilaterally. GI: No deficits noted. : No deficits noted. EENT: No deficits noted. 16:39 Reassessment: Patient appears in no apparent distress at this time. Patient and/or em family updated on plan of care and expected duration. Pain level reassessed. Patient is alert, oriented x 3, equal unlabored respirations, skin warm/dry/pink. Vital Signs: 14:19 BP 193 / 104; Pulse 118; Resp 20; Temp 99.0; Pulse Ox 94% on R/A; kg 15:15 BP 169 / 96; Pulse 95; Resp 18; Pulse Ox 100% on R/A; em 16:15 BP 170 / 98; Pulse 96; Resp 18; Pulse Ox 100% on R/A; em ED Course: 14:10 Patient arrived in ED. ds1 14:19 Shaila Mae is Primary Nurse. kg 14:19 Initial lab(s) drawn, by me, sent to lab. Inserted saline lock: 22 gauge in right em antecubital area, using aseptic technique. Blood collected. 14:19 No provider procedures requiring assistance completed. Patient maintains SpO2 em saturation greater than 95% on room air. 14:19 Arm band placed on. em 14:19 Patient has correct armband on for positive identification. environmental monitoring specialist on. Pulse em ox on. NIBP on. 14:25 Triage completed. kg 14:35 Tanner Horowitz PA is PHCP. jr8 14:35 Christiano Elizondo MD is Attending Physician. jr8 14:59 CT Head Brain wo Cont In Process Unspecified. EDMS 15:05 XRAY Chest (1 view) In Process Unspecified. EDMS 15:05 XRAY Hip LEFT 2 view In Process Unspecified. EDMS 16:38 IV discontinued, intact, bleeding controlled, No redness/swelling at site. Pressure em dressing applied. Administered Medications: 16:20 Drug: Zofran (Ondansetron) 4 mg Route: IVP; Site: right antecubital; em 16:22 Drug: fentaNYL (PF) 50 mcg Route: IVP; Site: right antecubital; em Outcome: 16:12 Discharge ordered by MD. marie 16:39 Discharged to home via wheelchair. em 16:39 Condition: stable 16:39 Discharge instructions given to patient, Instructed on discharge instructions, follow up and referral plans. Demonstrated understanding of instructions, follow-up care. 17:00 Patient left the ED. em Signatures: Dispatcher [employer] Noel Chaudhari RN RN em [place], Demi ds1 Tanner Horowitz PA PA jr8 Shaila Mea kg
== END 2021-01-08 17:00 | disposition home or self-care (01) ==
LOC: ER 14:08
DX: S70.02XA Contusion of left hip, initial encounter (principal); G40.802 Other epilepsy, not intractable, without status epilepticus; E11.22 Type 2 diabetes mellitus with diabetic chronic kidney disease; I12.0 Hypertensive chronic kidney disease with stage 5 chronic kidney disease or end stage renal disease; N18.6 End stage renal disease; Z88.5 Allergy status to narcotic agent; Z91.013 Allergy to seafood
CPT/HCPCS: 93005; 85025; 80048; 36415; 83735; 85610; 80076; 84484; 83880; 70450; 71045; 73502; 96375; 96374; 99285; J3010; J2405

== ENCOUNTER 2021-04-24 16:52 | Observation (INO) | payer OTHER ==
--- OUTSIDE RECORDS SUMMARY | 2021-04-24 16:57 | XMS REPORT | Continuity of Care Document ---
:1970 Author Organization [facility] t Address [address] [place] [address] Care Team Providers Name Role Phone Pcp [...] Treatment Clinician Date Hypertensi Hypertensi Disease Active 2019- M ethodi ve ve 09-09 st emergency emergency 00:00: [facility] 00 l Attention Attention Disease Active 2018-08 [facility] to to 10-25 ileostomy ileostomy 00:00: [facility] 00 l Type 2 Type 2 Disease Active 2018-08 Method[facility] diabetes diabetes 1- st mellitus mellitus 00:00: Hospit a 00 l CKD CKD Disease Active 2018-08 [facility] (chronic (chronic - kidney kidney 00:00: Hospita disease) disease) 00 l stage 4, stage 4, GFR 15-29 GFR 15-29 ml/min ml/min HTN HTN Disease Active 2018-08 [facility] (hypertens (hypertens 09-01 st ion) ion) 00:00: Hospita 00 l SLE SLE Disease Active 2018-08 [facility] (systemic (systemic 09-01 st lupus lupus 00:00: Hospita erythemato erythemato 00 l al al related related syndrome) syndrome) Rheumatoid Rheumatoid Disease Active 2018-08 M ethodi arthritis arthritis 09-01 st 00:00: Hospita 00 l Attention Attention Disease Active 2018-08 [facility] to to 09-01 st colostomy colostomy 00:00: [facility] 00 l History of History of Disease Active 2018-08 M ethodi ischemic ischemic 0 st colitis colitis 00:00: Hospita 00 l Abdominal Abdominal Disease Active 2017-[address] [facility] pain pain 09-27 [facility] - 00:[facility]: Medical 00 [place] Systemic Systemic Disease Active 2017-08 [facility] lupus lupus 09[facility] - erythemato erythemato 00:00: Me dical al al 00 Center Essential Essential Disease Active 2017-[address] hypertensi hypertensi 09-27 Gilda k[facility] - on on 00:00: Medical 00 [place] Type 2 Type 2 Disease Active 2017-[address] [facility] diabetes diabetes 09-27 [facility] - mellitus mellitus 00:00: Medica l with with 00 Center kidney kidney complicati complicati on, with on, with long-term long-term current current use of use of insulin insulin Colostomy Colostomy Disease Active 2017-[address] complicati complicati 09-27 [facility] - on on 00:00: Medical 00 [facility] bright red bright red Disease Active 2017-[address] blood in blood in 09-27 [facility] - colostomy colostomy 00:00: [facility] valentin 00 Center HTN HTN Disease Active 2017-[address] (hypertens (hypertens 09-27 Gilda kes - ion), ion), 00:00: Medical malignant malignant 00 Cent er Lupus Lupus Disease Active 2017-[address] nephritis nephritis 09-27 Luke s - 00:00: Medical 00 [facility] DAE (acute DAE (acute Disease Active 2017-[address] kidney kidney 09-27 [facility] - injury) injury) 00:00: Medical 00 [facility] Hypernatre Hypernatre Disease Active 2017-[address] charisse charisse 09-27 [facility] - 00:00: Medical 00 [place] Hypokalemi Hypokalemi Disease Active 2017-[address] a a 09-27 [facility] - 00:00: Medical 00 Center Colostomy Colostomy Disease Active Met hodi in place in place 02-23 st 00:00: Hospita 00 l Allergies, Adverse Reactions, Alerts Allergy Allergy Status Severity Reaction(s) Onset Inactive Treating Comm ents Source Name Type Date Date Clinician Anjali Mortonensi Active 2017-[address] h ty to 09-27 [facility] - Containi adverse 00:00: Medical ng reaction 00 Center Products s Shellfis Propensi Active Rash nausea, Metho di h ty to 05-17 headache, st Containi adverse 00:00: weakness Hospi ta ng reaction 00 l Products s to drug Morphine Propensi Active Palpitations Methodi ty to 05-13 st adverse 00:00: Hospita reaction 00 l s to drug Family History Family Member Diagnosis Comments Start Date Stop Date Source Natural father Kidney disease [facility] Natural father Kidney cancer [facility] Natural mother Cancer [facility] Natural mother Hypertension [facility] Natural mother Uterine cancer [facility] Natural sister Diabetes [facility] Social History Social Habit Start Date Stop Date Quantity Comments Source History [facility] - Alcohol Std Drinks [facility] B[facility] Medical [facility] ter Tobacco use and 2019-08-27 2019-08-27 Never used [facility] exposure 00:00:00 00:00:00 Hospital Alcohol intake 2019-08-27 2019-08-27 Current Buddhist 00:00:00 00:00:00 non-drinker of Hospital alcohol (finding) History [facility] 2018-07-28 2018-07-28 [facility]:00 [facility] Center Sex Assigned At [birth year] [facility] 00:00:00 00:00:00 Hospital Smoking Status Start Date Stop Date Source Never smoker [facility] Medications Ordered Filled Start Stop Current Ordering Indication Dosage Frequency Signature Comments Components Source Medication Medication Date Date Medication? Clinician (SIG) Name Name hydroxychlo Yes 500mg Q.5D Take 500 M ethodi roquine 1-[address] (PLAQUENIL) 22:02: mouth 2 Hos monique 200 mg 14 (two) l tablet times a day. HYDROCODONE 2020-0 Yes Take by Met hodi /ACETAMINOP 1-[address] HEN (NORCO 22:02: needed. [facility] ORAL) 14 l ALPRAZolam 2020-0 Yes .5mg Q.5D Take 0.5 Met hodi (XANAX) 0.5 1-[address] MG tablet 22:02: mouth 2 Hospi ta 14 (two) l times a day as needed for anxiety. sertraline 2020-0 Yes 25mg QD Take 25 mg M ethodi (ZOLOFT) 25 1-[address] MG tablet 22:02: daily. Hospit a 14 l pilocarpine 2020-0 Yes 5mg QD Take 5 mg M ethodi (SALAGEN) 5 1-[address] MG tablet 22:02: daily. Hospit a 14 l sodium 2020-0 Yes 648mg QD Take 648 Method i bicarbonate 1-[address] 650 mg 22:02: mouth Hospita tablet 14 daily. l doxazosin 2017-08 Yes 4mg Take 4 mg [...] zolpidem Yes 10mg QD Take 10 mg Met hodi (AMBIEN) 10 6-[address] mg tablet 00:00: nightly as Ho spita 00 needed for l sleep. mycophenola Yes 1000mg Q.5D Take 1,000 Methodi te 5-[address] (CELLCEPT) 00:00: mouth 2 [facility] 500 mg 00 (two) l tablet times a day. mycophenola Yes 1000mg Q.5D Take 1,[address] te 4-07 mg by [facility] - (CELLCEPT) 00:00: mouth 2 Medi valentin 500 mg 00 (two) Center tablet times daily. amLODIPine 2014-08 Yes 10mg Take [address] (NORVASC) 2-11 by mouth. [facility] - 10 MG 00:00: Medical tablet 00 [facility] cloNIDine 2014-08 Yes .3mg Q.[id number] Take 0.[address] HCl 1-11 [id number] mg by [facility] - (CATAPRES) 00:00: 3D mouth 3 Medi valentin 0.3 MG 00 (three) Center tablet times daily . furosemide 2014-08 Yes 80mg Take [address] (LASIX) 40 1-11 by mouth . Jose es - MG tablet 00:00: Medical 00 [facility] hydrALAZINE 2014-08 Yes 50mg Q.[id number] Take [address] (APRESOLINE 1-11 [id number] by mouth 3 [facility] - ) 50 [...] 00:00:00 (Season Ended) [code = Medic al Center INFLUENZA VACCINE (Season Ended)] Future Scheduled 2020-08-[address] [facility] - Test 00:00:00 (12+) [code = Medical Center DEPRESSION SCREENING (12+)] Future Scheduled 2020 SHINGLES VACCINES ([address] [facility] - Test 00:00:00 of 2) [code = SHINGLES Medic al Center VACCINES (1 of 2)] Future Scheduled 2019-01-[address] [facility] k[facility] - Test 00:00:00 measurement Medical Center (procedure) [code = 30955199] Future Scheduled 2018-08-[address] [facility] - Test 00:00:00 WELLNESS (YEAR 2 or Medical Center FIRST YEAR if no IPPE) [code = MEDICARE ANNUAL WELLNESS (YEAR 2 or FIRST YEAR if no IPPE)] Future Scheduled [address] [facility] - Test 00:00:00 (procedure) [code = Medical Center 40300056] Future Scheduled 2014-06-[address] [facility] - Test 00:00:00 0-64 YRS (2 of 3 - Medical C enter PCV13) [code = PNEUMOCOCCAL VACCINE 0-64 YRS (2 of 3 - PCV13)] Future Scheduled [address] [facility] - Test 00:00:00 [facility] cervix (procedure) [code = 382082112] Future Scheduled 1989 DTAP/TDAP/TD VACCINES [facility] - Test 00:00:00 (1 - Tdap) [code = Medical C enter DTAP/TDAP/TD VACCINES (1 - Tdap)] Future Scheduled 1988 HEPATITIS C SCREENING [facility] Test 00:00:00 [code = HEPATITIS C Medical Center SCREENING] Future Scheduled 1982 COVID-19 VACCINE (1) [facility] - Test 00:00:00 [code = COVID-[address] VACCINE (1)] Future Scheduled 1980 DIABETIC EYE EXAM [facility] - Test 00:00:00 [code = DIABETIC EYE Medical Center EXAM] Future Scheduled [address] [facility] - Test 00:00:00 examination Medical Center (regime/therapy) [code = 138371921] Future Scheduled 1980 Urine screening for [facility] - Test 00:00:00 protein (procedure) Medical Center [code = 613183298] Future Scheduled [address] - Test 00:00:00 malignant neoplasm of [facility] breast (procedure) [code = 164818867] Future Scheduled [address] [facility] - Test 00:00:00 malignant neoplasm of [facility] colon (procedure) [code = 092523776] Future Scheduled DIABETES: RETINAL [facility] EXAM [code = DIABETES: RETINAL EYE EXAM] Future Scheduled [facility] Test [code = DIABETIC FOOT EXAM] Future Scheduled COVID-19 VACCINE (1) [facility] Test [code = COVID-19 VACCINE (1)] Future Scheduled Hepatitis C screening [facility] Test (procedure) [code = 716105945] Future Scheduled [facility] Test malignant neoplasm of cervix (procedure) [code = 741526999] Future Scheduled [facility] Test SCREENING [code = BREAST CANCER SCREENING] Future Scheduled COLONOSCOPY SCREENING [facility] Test [code = COLONOSCOPY SCREENING] Future Scheduled SHINGLES VACCINES (#1) [facility] Test [code = SHINGLES VACCINES (#1)] Future Scheduled INFLUENZA VACCINE [facility] Test [code = INFLUENZA VACCINE] Encounters Start End Encounter Admission Attending Care Care Encounter Source Date/Time Date/Time Type Type Clinicians Facility Department ID 2020-11-12 2020-11-12 Office [place] [facility] [id number] 13:40:03 14:10:03 Visit Ligia Gonzalez [id number] Jose Francisco [id number] Bridget [id number] formerly [facility], [facility] 085 [facility] 2019-09-09 2019-09-18 Inpatient RODGABI [facility] [id number] [place] 00:00:00 00:00:[address] 2019-08-24 2019-09-04 Inpatient [facility] [id number] [place] 00:00:00 00:00:00 JAMESON [address] 2019-08-23 2019-08-23 Outpatient [facility] [id number] [place] 00:00:00 00:00:00 JAMESON [address] 2019-08-14 2019-08-14 Outpatient DAVID, [facility] [id number] [place] 00:00:00 00:00:00 JAMESON [address] 2019-07-02 2019-07-13 Inpatient DAVID, [facility] [id number] [place] 00:00:00 00:00:00 JAMESON [address] 2019-06-14 2019-06-14 Outpatient DAVID, [facility] 021 [id number] [place] 00:00:00 00:00:00 JAMESON [address] Results Test Description Test Time Test Comments Results Result Comments Source BLOOD CULTURE 2018-08-02 17:01:00 Test Item Value Reference Range Interpretation Comme nts CULTURE (BEAKER) (test code = 1095) No growth in 5 days LUPUS ANTICOAGULANT SCREEN WITH REFLEX TO [id number] 16:08:00 Test Item Value Reference Range Interpretation [...] (BEAKER) (test 45.2 32.0-41.8 H code = 1278241555) [id number] Cindy Chavira MD (BEAKER) (test code = (electronic signature) 2610) HEXAGONAL [id number] 14:08:00 Test Item Value Reference Range Interpretation Comments HEXAGONAL PHOSPHOLIPID (BEAKER) Positive (test code = 1790) BLOOD [id number] 10:01:00 Test Item Value Reference Range Interpretation Comments CULTURE (BEAKER) (test No growth in 5 days code = 1095) DOUBLE-STRANDED DNA (DSDNA) [id number] 05:52:00 Test Item Value Reference Range Interpretation Comments ANTI-DNA DS ([facility]) (test code = Negative 1055) CARDIOLIPIN ANTIBODIES, IGG AND [id number] 15:01:00 Test Item Value Reference Range Interpretation Comments ANTICARDIOLIPIN IGG ANTIBODY ([facility]) < GPL <20.0 (test code = 712) ANTICARDIOLIPIN IGM ANTIBODY ([facility]) 2.1 MPL <20.0 (test code = 713) Anticardiolipin IgG Result Interpretation: <20.0 GPL Normal>/= 20.0 GPL PositiveAnticardiolipin IgM Result Interpretation: <20.0 MPL Normal>/= 20.0 MPL PositiveCALCIUM, [id number] 05:12:00 Test Item Value Reference Range Interpretation Comments CALCIUM IONIZED ([facility]) (test 1.01 mmol/L 1.12-1.27 L code = 698) PH, BLOOD ([facility]) (test code = 7.45 1810) POCT-GLUCOSE [id number] 21:30:00 Test Item Value Reference Range Interpretation Comments POC-GLUCOSE METER 116 mg/dL 70-110 H TESTED AT [place] [address] ([facility]) (test code = JOB Osei [facility] 1538) [address]60 POCT-GLUCOSE [id number] 17:32:00 Test Item Value Reference Range Interpretation Comments POC-GLUCOSE METER 125 mg/dL 70-110 H TESTED AT [place] [address] ([facility]) (test code = JOB Osei [facility] 1538) [address]88 POCT-GLUCOSE [id number] 11:28:00 Test Item Value Reference Range Interpretation Comments POC-GLUCOSE METER 115 mg/dL 70-110 H TESTED AT [place] [address] ([facility]) (test code = JOB Osei [facility] 1538) 025[address] POCT-GLUCOSE [id number] 07:41:00 Test Item Value Reference Range Interpretation Comments POC-GLUCOSE METER 108 mg/dL 70-110 TESTED AT [place] [address] ([facility]) (test code = JOB Osei [facility] 1538) [address] [id number] 07:06:00 Test Item Value Reference Range Interpretation Comments MAGNESIUM (BEAKER) 1.8 mg/dL 1.6-2.6 Specimen slightly (test code = 627) hemolyzed [id number] 07:06:00 Test Item Value Reference Range Interpretation Comments PHOSPHORUS (BEAKER) 2.4 mg/dL 2.3-4.7 Specimen slightly (test code = 604) hemolyzed COMPREHENSIVE METABOLIC [id number] 07:06:00 Test Item Value Reference Range Interpretation [...] APPLICABLE FOR DIALYSIS PATIEN TS. HEPATIC FUNCTION [id number] 07:06:00 Test Item Value Reference Range Interpretation [...] slightly (test code = 347) hemolyzed CALCIUM, [id number] 06:42:00 Test Item Value Reference Range Interpretation Comments CALCIUM IONIZED (BEAKER) (test 1.16 mmol/L 1.12-1.27 code = 698) PH, BLOOD (BEAKER) (test code = 7.42 1810) CBC W/PLT COUNT & AUTO [id number] 05:10:00 Test Item Value Reference Range Interpretation [...] PERCENT (BEAKER) (test code = 2801) POCT-GLUCOSE [id number] 23:12:00 Test Item Value Reference Range Interpretation Comments POC-GLUCOSE METER 95 mg/dL 70-110 TESTED AT [place] [address] ([facility] (test code = [facility] [address] 1538) POCT-GLUCOSE [id number] 18:51:00 Test Item Value Reference Range Interpretation Comments POC-GLUCOSE METER 118 mg/dL 70-[address] [facility] 67[address] ([facility]) (test code = [facility] 1538) [address] HEMOGLOBIN AND [id number] 16:28:00 Test Item Value Reference Range Interpretation Comments HEMOGLOBIN (BEAKER) (test code = 8.7 GM/DL 11.2-15.7 L 410) HEMATOCRIT (BEAKER) (test code = 27.8 % 34.1-44.9 L 411) POCT-GLUCOSE [id number] 15:00:00 Test Item Value Reference Range Interpretation Comments POC-GLUCOSE METER 140 mg/dL 70-110 H TESTED AT [place] [address] ([facility]) (test code = JOB Osei [facility] 1538) [address] POCT-GLUCOSE [id number] 14:46:00 Test Item Value Reference Range Interpretation Comments POC-GLUCOSE METER 44 mg/dL 70-110 L Notified Sea Amos MD/TESTED AT ([facility]) (test code = [address] 1538) [facility] 7703 0 POCT-GLUCOSE [id number] 13:05:00 Test Item Value Reference Range Interpretation Comments POC-GLUCOSE METER 87 mg/dL 70-110 TESTED AT [place] [address] ([facility]) (test code = PAULINEJOSE Osei [facility] [address] 1538) POCT-GLUCOSE [id number] 11:57:00 Test Item Value Reference Range Interpretation Comments POC-GLUCOSE METER 65 mg/dL 70-110 L Notified Sea Amos MD/TESTED AT ([facility]) (test code = [address] 1538) [facility] 7703 0 VANCOMYCIN LEVEL, [id number] 10:58:00 Test Item Value Reference Range Interpretation Comments VANCOMYCIN TROUGH ([facility]) (test 14.2 ug/mL 10.0-20.0 code = 522) RAD, ABDOMEN/KUB, 1 VIEW [id number] 09:41:00Reason for exam:->abdominal painFINAL REPORT AP abdomen, two images HISTORY: Abdominal pain COMPARISON: 07/28/2013 IMPRESSION:Grossly nonobstructive bowel gas pattern. Intact skeleton. Signed: Vikas Guillen MDReport Verified Date/Time: 07/30/2018 09:41:59 Reading Location: [facility] C013X Ortho Consult ReadingRoom POCT-GLUCOSE [id number] 07:59:00 Test Item Value Reference Range Interpretation Comments POC-GLUCOSE METER 87 mg/dL 70-110 TESTED AT [place] [address] (BEAKER) (test code = [place] [address] 1538) CALCIUM, [id number] 06:53:00 Test Item Value Reference Range Interpretation Comments CALCIUM IONIZED (BEAKER) (test 1.12 mmol/L 1.12-1.27 code = 698) PH, BLOOD (BEAKER) (test code = 7.44 1810) [id number] 06:38:00 Test Item Value Reference Range Interpretation Comments PHOSPHORUS (BEAKER) (test code = 2.7 mg/dL 2.3-4.7 604) [id number] 06:38:00 Test Item Value Reference Range Interpretation Comments MAGNESIUM (BEAKER) (test code = 1.6 mg/dL 1.6-2.6 627) HEPATIC FUNCTION [id number] 06:38:00 Test Item Value Reference Range Interpretation [...] = 9 U/L 6-55 347) COMPREHENSIVE METABOLIC [id number] 06:38:00 Test Item Value Reference Range Interpretation [...] PATIEN TS. CBC W/PLT COUNT & AUTO [id number] 06:11:00 Test Item Value Reference Range Interpretation [...] PERCENT (BEAKER) (test code = 2801) POCT-GLUCOSE [id number] 21:38:00 Test Item Value Reference Range Interpretation Comments POC-GLUCOSE METER 96 mg/dL 70-110 TESTED AT [place] [address] ([facility]) (test code = [facility] [address] 1538) POCT-GLUCOSE [id number] 18:19:00 Test Item Value Reference Range Interpretation Comments POC-GLUCOSE METER 121 mg/dL 70-110 H TESTED AT [place] [address] ([facility]) (test code = [facility] 1538) [address] T4, [id number] 12:35:00 Test Item Value Reference Range Interpretation Comments FREE T4 ([facility]) (test code = 655) 1.25 ng/dL 0.70-1.48 POCT-GLUCOSE [id number] 12:27:00 Test Item Value Reference Range Interpretation Comments POC-GLUCOSE METER 127 mg/dL 70-110 H TESTED AT [place] [address] ([facility]) (test code = [facility] 5839) [address] TSH/FREE T4 IF [id number] 12:07:00 Test Item Value Reference Range Interpretation Comments THYROID STIMULATING HORMONE 0.25 uIU/mL 0.35-4.94 L (BEAKER) (test code = 772) [id number] 12:07:00 Test Item Value Reference Range Interpretation Comments THYROID STIMULATING HORMONE 0.25 uIU/mL 0.35-4.94 L (BEAKER) (test code = 772) LACTIC ACID, VENOUS, WHOLE [id number] 11:35:00 Test Item Value Reference Range Interpretation Comments LACTATE BLOOD VENOUS 0.6 mmol/L 0.5-2.2 Specime n slightly (2) (BEAKER) (test hemolyzed code = 1522) VANCOMYCIN LEVEL, [id number] 07:11:00 Test Item Value Reference Range Interpretation Comments VANCOMYCIN RANDOM (BEAKER) (test 17.9 ug/mL code = 523) Reference Range: No [id number] 07:09:00 Test Item Value Reference Range Interpretation Comments PHOSPHORUS (BEAKER) (test code = 3.9 mg/dL 2.3-4.7 604) [id number] 07:09:00 Test Item Value Reference Range Interpretation Comments MAGNESIUM (BEAKER) (test code = 1.7 mg/dL 1.6-2.6 627) BASIC METABOLIC [id number] 07:09:00 Test Item Value Reference Range Interpretation [...] APPLICABLE FOR DIALYSIS PATIEN TS. HEPATIC FUNCTION [id number] 07:09:00 Test Item Value Reference Range Interpretation [...] code = 10 U/L 6-55 347) TROPONIN [id number] 06:54:00 Test Item Value Reference Range Interpretation Comments TROPONIN I (BEAKER) (test code = 0.08 ng/mL 0.00-0.03 H 397) LACTIC ACID, VENOUS, WHOLE [id number] 06:45:00 Test Item Value Reference Range Interpretation Comments LACTATE BLOOD VENOUS 0.8 mmol/L 0.5-2.2 Specime n slightly (2) (BEAKER) (test hemolyzed code = 8962) CBC W/PLT COUNT & AUTO [id number] 06:00:00 Test Item Value Reference Range Interpretation [...] PERCENT (BEAKER) (test code = 2801) CALCIUM, [id number] 05:58:00 Test Item Value Reference Range Interpretation Comments CALCIUM IONIZED (BEAKER) (test 1.12 mmol/L 1.12-1.27 code = 698) PH, BLOOD (BEAKER) (test code = 7.39 1810) EOSINOPHIL SMEAR, [id number] 20:17:00 Test Item Value Reference Range Interpretation Comments EOSINOPHIL SMEAR, URINE (BEAKER) No EOS seen No EOS seen (test code = 1851) BASIC METABOLIC [id number] 20:01:00 Test Item Value Reference Range Interpretation [...] DIALYSIS PATIEN TS. LACTIC ACID, VENOUS, WHOLE [id number] 19:59:00 Test Item Value Reference Range Interpretation Comments LACTATE BLOOD VENOUS 0.8 mmol/L 0.5-2.2 Specime n slightly (2) (BEAKER) (test hemolyzed code = 2872) CT, BRAIN/STROKE [id number] 19:59:00Stroke Protocol. Phone/Page MD for reporting.Reason for [...] Fink Verified Date/Time: 07/28/2018 19:59:01 Reading Location: [facility] Radiology Reading Room [id number] 19:51:00 Test Item Value Reference Range Interpretation Comments PARTIAL THROMBOPLASTIN TIME 33.1 seconds 22.5-36.0 (BEAKER) (test code = 760) PROTHROMBIN [id number] 19:50:00 Test Item Value Reference Range Interpretation Comments PROTIME (BEAKER) (test code = 15.6 seconds 11.7-14.7 H 759) INR (BEAKER) (test code = 370) 1.2 <=5.9 RECOMMENDED COUMADIN/WARFARIN INR THERAPY RANGESSTANDARD DOSE: 2.0 - 3.0 Includes: PROPHYLAXIS forvenous thrombosis, systemic embolization; TREATMENT for venous thrombosis and/or pulmonary embolus.HIGH RISK: Target INR is 2.5-3.5 for patients with mechanical heart valves.HEMOGLOBIN AND [id number] 19:41:00 Test Item Value Reference Range Interpretation Comments HEMOGLOBIN (BEAKER) (test code = 11.3 GM/DL 11.2-15.7 410) HEMATOCRIT (BEAKER) (test code = 35.4 % 34.1-44.9 411) CBC W/PLT COUNT & AUTO [id number] 19:41:00 Test Item Value Reference Range Interpretation [...] PERCENT (BEAKER) (test code = 2801) TROPONIN [id number] 19:26:00 Test Item Value Reference Range Interpretation Comments TROPONIN I (BEAKER) (test code = 0.11 ng/mL 0.00-0.03 H 397) PROTEIN, RANDOM [id number] 19:19:00 Test Item Value Reference Range Interpretation Comments PROTEIN, URINE (BEAKER) (test code 325 mg/dL 0-14 H = 1569) POCT-GLUCOSE [id number] 19:00:00 Test Item Value Reference Range Interpretation Comments POC-GLUCOSE METER 158 mg/dL 70-110 H TESTED AT [place] [address] (BEAKER) (test code = [place] 1538) [address] CREATININE, RANDOM [id number] 18:52:00 Test Item Value Reference Range Interpretation Comments CREATININE URINE (BEAKER) (test 95.8 mg/dL code = 375) Reference Range: No NormalsSODIUM, RANDOM [id number] 18:52:00 Test Item Value Reference Range Interpretation Comments SODIUM URINE (BEAKER) (test code = 28 meq/L 243) Reference Range: No NormalsURINALYSIS W/ [id number] 18:02:00 Test Item Value Reference Range Interpretation [...] SOURCE(BEAKER) (test code Urine, Clean Catch = 8644) POCT-GLUCOSE [id number] 17:21:00 Test Item Value Reference Range Interpretation Comments POC-GLUCOSE METER 137 mg/dL 70-110 H TESTED AT [facility] 6720 (BEAKER) (test code = [place] 1538) [address] BASIC METABOLIC [id number] 17:14:00 Test Item Value Reference Range Interpretation [...] APPLICABLE FOR DIALYSIS PATIEN TS. Call results [id number] ACID, VENOUS, WHOLE [id number] 14:19:00 Test Item Value Reference Range Interpretation Comments LACTATE BLOOD VENOUS (2) (BEAKER) 1.1 mmol/L 0.5-2.2 (test code = 2872) THROMBIN [id number] 13:02:00 Test Item Value Reference Range Interpretation Comments THROMBIN TIME (BEAKER) (test code = 17.8 secs 13.8-20.0 550) [id number] 13:01:00 Test Item Value Reference Range Interpretation Comments PROCALCITONIN (BEAKER) (test code 0.09 ng/mL <0.05 H = 3036) SEPSIS RISK (ng/mL)Low: 0.05-0.50Intermediate: 0.51-2.00High: >=2.011:1 MIXING STUDY, [id number] 12:38:00 Test Item Value Reference Range Interpretation Comments PROTIME (BEAKER) (test code = 15.0 seconds 11.7-14.7 H 759) PARTIAL THROMBOPLASTIN TIME 36.1 seconds 22.5-36.0 H (BEAKER) (test code = 760) PT 1/1 MIX (BEAKER) (test code = 14.4 SECS 11.7-14.7 1595) PTT 1/1 MIX (BEAKER) (test code 35.5 SECS 22.5-36.0 = 1596) TROPONIN [id number] 12:01:00 Test Item Value Reference Range Interpretation Comments TROPONIN I (BEAKER) (test code = 0.13 ng/mL 0.00-0.03 H 397) HCG, QUANTITATIVE, [id number] 11:58:00 Test Item Value Reference Range Interpretation Comments GONADOTROPIN, CHORIONIC (HCG) QUANT < mIU/mL 0-10 (BEAKER) (test code = 649) Non- Females: <10 mIU/mL Females: Gestation Age Reference Range(mIU/mL) 0.2-1 Week 5-50 1-2 Weeks 50-500 2-3 Weeks 100-5,000 3-4Weeks 500-10,000 4-5 Weeks 1,000-50,000 5-6 Weeks 10,000-100,000 6-8 Weeks 15,000-200,000 2-3 Months 10,000-100,[id number] 11:55:00 Test Item Value Reference Range Interpretation Comments LIPASE (BEAKER) (test code = 749) 31 U/L 8-78 [id number] 11:55:00 Test Item Value Reference Range Interpretation Comments AMYLASE (BEAKER) (test code = 349) 101 U/L 25-125 COMPREHENSIVE METABOLIC [id number] 11:55:00 Test Item Value Reference Range Interpretation [...] NOT APPLICABLE FOR DIALYSIS PATIEN TS. C-REACTIVE [id number] 11:55:00 Test Item Value Reference Range Interpretation Comments C-REACTIVE PROTEIN (BEAKER) (test 0.42 mg/dL 0.00-0.50 code = 676) LACTIC ACID, VENOUS, WHOLE [id number] 11:51:00 Test Item Value Reference Range Interpretation Comments LACTATE BLOOD VENOUS 1.5 mmol/L 0.5-2.2 Specime n slightly (2) (BEAKER) (test hemolyzed code = 8956) [id number] 11:44:00 Test Item Value Reference Range Interpretation Comments PARTIAL THROMBOPLASTIN TIME 35.4 seconds 22.5-36.0 (BEAKER) (test code = 760) CBC W/PLT COUNT & AUTO [id number] 11:30:00 Test Item Value Reference Range Interpretation [...] PERCENT (BEAKER) (test code = 2801) POCT-GLUCOSE [id number] 11:20:00 Test Item Value Reference Range Interpretation Comments POC-GLUCOSE METER 167 mg/dL 70-[address] [facility] [address] (BEAKER) (test code = [place] 1538) [address] HEMOGLOBIN [id number] 11:15:00 Test Item Value Reference Range Interpretation Comments HEMOGLOBIN A1C (AMINAH) (test code = 5.6 % 4.3-6.1 368) PROTHROMBIN [id number] 08:24:00 Test Item Value Reference Range Interpretation Comments PROTIME (AMINAH) (test code = 15.3 seconds 11.7-14.7 H 759) INR (AMINAH) (test code = 370) 1.2 <=5.9 RECOMMENDED COUMADIN/WARFARIN INR THERAPY RANGESSTANDARD DOSE: 2.0 - 3.0 Includes: PROPHYLAXIS forvenous thrombosis, systemic embolization; TREATMENT for venous thrombosis and/or pulmonary embolus.HIGH RISK: Target INR is 2.5-3.5 for patients with mechanical heart valves.RAD, ABDOMEN/KUB, 1 VIEW [id number] 08:13:00Reason for exam:->abdominal painFINAL REPORT INDICATION:Abdominal pain. [...] bilateral hip MRI is recommended. Signed: Lionel Ruiz Verified Date/Time: 07/28 08:13:33 Reading Location: [address] Consult Reading Room ONIN [id number] 08:11:00 Test Item Value Reference Range Interpretation Comments TROPONIN I (AMINAH) (test code = 0.05 ng/mL 0.00-0.03 H 397) RAD, CHEST, 1 VIEW, NON [id number] 08:10:00Reason for exam:->chest painShould this be performed at the bedside?->YesFINAL REPORT RAD, CHEST, 1 VIEW, NON DEPT INDICATION: chest pain COMPARISON: Prior day's exam FINDINGS: Portable frontal view of the chest. IMPRESSION: Support Lines: None. Lungs and pleura: Clear lungs. No effusion. No pneumothorax.Heart and mediastinum: Unremarkable contours.Additional findings: None. Signed: JR Maya Robert MDReport Verified Date/Time: 07/28/2018 08:10:51 Reading Location: [facility] Radiology Reading Room BASIC METABOLIC [id number] 08:08:00 Test Item Value Reference Range Interpretation [...] S NOT APPLICABLE FOR DIALYSIS PATIEN TS. [id number] 08:04:00 Test Item Value Reference Range Interpretation Comments LIPASE (BEAKER) (test code = 749) 12 U/L 8-78 HEPATIC FUNCTION [id number] 08:04:00 Test Item Value Reference Range Interpretation [...] (test code = 347) hemolyzed COMPLEMENT COMPONENT [id number] 08:03:00 Test Item Value Reference Range Interpretation Comments C4 COMPLEMENT (BEAKER) (test code = 25 mg/dL 15-57 394) COMPLEMENT COMPONENT [id number] 08:03:00 Test Item Value Reference Range Interpretation Comments C3 COMPLEMENT (BEAKER) (test code = 125 mg/dL 82-193 393) POCT-BLOOD GASES, [id number] 07:57:00 Test Item Value Reference Range Interpretation Comments TEMP, CELSIUS-POC 37.0 (BEAKER) (test code = 1834) FIO2-POC (BEAKER) TESTED AT [place] [address] (test code = 1835) [place] [address] PH, ARTERIAL-POC 7.416 7.350-7.450 (BEAKER) (test code [...] L ARTERIAL-POC (BEAKER) (test code = 1841) [id number] 07:57:00 Test Item Value Reference Range Interpretation Comments POC-SODIUM (BEAKER) 146 meq/L 135-148 TESTED A T [place] [address] (test code = 1542) [place] [address] [id number] 07:57:00 Test Item Value Reference Range Interpretation Comments POC-POTASSIUM 2.7 meq/L 3.6-5.5 L TESTED AT [place] [address] ([facility]) ([facility] [address] = 1540) [id number] 07:57:00 Test Item Value Reference Range Interpretation Comments POC-GLUCOSE ([facility]) 176 mg/dL 70-110 H TESTED AT [place] [address] (test code = 1855) [facility] [address] POCT-CALCIUM [id number] 07:57:00 Test Item Value Reference Range Interpretation Comments POC-CALCIUM IONIZED 1.15 mmol/L 1.12-1.27 TESTED [place] [address] ([facility]) (test code = [facility] 1536) [address] [id number] 07:57:00 Test Item Value Reference Range Interpretation Comments POC-HEMATOCRIT 38 % 36-45 TESTED AT [place] [address] ([facility]) (test code = [facility] [address] 1857) [id number] 07:57:00 Test Item Value Reference Range Interpretation Comments POC-HEMOGLOBIN 12.9 g/dL 12.0-15.0 TESTED AT [place] [address] ([facility]) (test code [facility] = 1856) [id number] AT [place] [address] [facility] [address] POCT-LACTIC ACID, [id number] 07:57:00 Test Item Value Reference Range Interpretation Comments POC-LACTIC ACID, 3.3 mmol/L 0.9-1.7 H TESTED AT [place] [address] VENOUS ([facility]) (test [facility] code = 2805) [address] CBC W/PLT COUNT & AUTO [id number] 07:47:00 Test Item Value Reference Range Interpretation Comments WHITE BLOOD CELL COUNT ([facility]) 9.6 K/ L 3.5-10.5 (test code = 775) RED BLOOD CELL COUNT ([facility]) 4.78 M/ L 3.93-5.22 (test code = 761) HEMOGLOBIN ([facility]) (test code = 12.2 GM/DL 11.2-15.7 410) [...]
--- NOTE | 2021-04-24 17:31 | RAD REPORT ---
EXAM DESCRIPTION: CT - Head Brain Wo Cont - 04/24/2021 5:20 pm CLINICAL HISTORY: Headache COMPARISON: August 2020 TECHNIQUE: Computed axial tomography of the head was obtained. IV contrast was not requested. All CT scans are performed using dose optimization technique as appropriate and may include automated exposure control or mA/KV adjustment according to patient size. FINDINGS: An intracranial bleed is not seen . The ventricles are normal in caliber. Empty sella turcica No extra-axial fluid collection is noted. Mild to moderate low-density areas within periventricular, deep and subcortical white matter likely r epresent ischemic changes secondary to small vessel disease. Fluid within sinuses is not noted. Moderate opacification of the right mastoids unchanged IMPRESSION: No acute intracranial abnormality is seen. If patient's symptoms persist MRI of the bra in would be recommended. Moderate fluid right mastoids unchanged. This may indicate a mastoiditis
[2021-04-24] MEDS ORDERED: cloNIDine HCL 0.1 MG TAB ONE (17:57)
[2021-04-24 18:04] LABS: Absolute Lymphocytes (CBC) 0.7 K/uL (0.7-4.9); Basophils % 0.4 % (0-1.3); Hematocrit 33.8 % (36.0-45.0); Lymphocytes % 13.3 % (15.3-44.8); MPV 7.6 fL (7.6-11.3); RBC Red Blood Cell Count 4.18 M/uL (3.86-4.86)
[2021-04-24 18:05] LABS: Protime INR 1.08
[2021-04-24 18:20] LABS: Urine Specific Gravity/Preg 1.025 (1.005-1.030)
[2021-04-24 18:28] LABS: Potassium 2.8 mmol/L (3.5-5.1)
[2021-04-24 18:50] LABS: Albumin 3.9 g/dL (3.4-5.0); Bilirubin Direct 0.1 mg/dL (0-0.2); Bilirubin Total 0.4 mg/dL (0.2-1.0); Magnesium 1.7 mg/dL (1.8-2.4); Protein, Total 8.6 g/dL (6.4-8.2); Troponin (Emerg Dept Use Only) 0.04 ng/mL (0.0-0.045)
[2021-04-24] MEDS ORDERED: FENTANYL CITR 100 MCG/2 ML ONE ×2 (19:18→22:46)
[2021-04-24] MEDS ORDERED: NA CHLORIDE 0.9% 1,000 ML ONE ×2 (19:18→23:16)
--- NOTE | 2021-04-24 19:34 | RAD REPORT ---
EXAM DESCRIPTION: CT - Stone Protocol - 04/24/2021 7:16 pm CLINICAL HISTORY: Abdominal pain./vomiting COMPARISON: 2019 TECHNIQUE: Computed axial tomography of the abdomen pelvis was obtained without oral or IV contrast. Lack of IV and oral contrast limits evaluation of solid organs, bowel, and vessels. Coronal reformat brianna images were obtained and reviewed. All CT scans are performed using dose optimization technique as appropriate and may include automated exposure control or mA/KV adjustment according to patient size. FINDINGS: A renal calculus is not seen. An ureteral calculus is not noted. A bladder calculus is not present. The liver, spleen, pancreas and adrenals appear grossly normal Postsurgical changes involve the colon. The cecum lies within the left pelvis. Normal appendix. No evidence diverticulitis. Diastases of rectus abdominis muscles 16 centimeters. Small incisional hernia right lower abdomen contains a loop of nondilated small bowel. Borderline gallbladder distention Small pericardial effusion or thickening unchanged Moderate amount of stool within colon IMPRESSION: Negative for a genitourinary calculus Borderline gallbladder distention Moderate amount stool within the colon
--- NOTE | 2021-04-24 19:35 | RAD REPORT ---
EXAM DESCRIPTION: Fredo Single View04/24/2021 6:35 pm CLINICAL HISTORY: sob COMPARISON: December 2020 FINDINGS: The lungs appear clear of acute infiltrate. The heart is mildly to moderately enlarged IMPRESSION: No acute abnormalities displayed
--- NOTE | 2021-04-24 19:56 | ER ---
Nurse's Notes [facility] Name: Babs Younger Age: 50 yrs Sex: Female : 1970 Arrival Date: 04/24/2021 Time: 16:53 Bed 25 Private MD: Diagnosis: Essential (primary) hypertension;Systemic lupus erythematosus, unspecified;Acute Kidney Injury Presentation: 04/24 16:50 Chief complaint: EMS states: Pt started feeling palpitations that started today, also vg1 states BP is elevated and c/o headache. States believes has a Lupus flare up and has been vomiting x2 days. 16:50 Coronavirus screen: Vaccine status: Patient reports receiving the 2nd dose of the covid vg1 vaccine. Client denies travel out of the [place] in the last 14 days. Ebola Screen: Patient negative for fever greater than or equal to 101.5 degrees Fahrenheit, and additional compatible Ebola Virus Disease symptoms. Initial Sepsis Screen: Does the patient meet any 2 criteria? No. Patient's initial sepsis screen is negative. Does the patient have a suspected source of infection? No. Patient's initial sepsis screen is negative. Risk Assessment: Do you want to hurt yourself or someone else? Patient reports no desire to harm self or others. Onset of symptoms was April 24, 2021. 16:50 Method Of Arrival: EMS: [facility] vg1 16:50 Acuity: ELVA 3 vg1 Triage Assessment: 16:50 General: Appears in no apparent distress. uncomfortable, Behavior is cooperative, vg1 anxious. Pain: Complains of pain in head Pain currently is 9 out of 10 on a pain scale. Quality of pain is described as throbbing, Pain began this morning Noted to be grimacing, moaning. EENT: No signs and/or symptoms were reported regarding the EENT system. Neuro: Level of Consciousness is awake, alert, obeys commands, Oriented to person, place, time, situation, Reports headache. Cardiovascular: Patient's skin is warm and dry. Rhythm is sinus tachycardia. Respiratory: Airway is patent Respiratory effort is even, unlabored. GI: Reports nausea, vomiting. : No signs and/or symptoms were reported regarding the genitourinary system. Derm: Skin is intact, Skin is pink, warm \T\ dry. Musculoskeletal: Circulation, motion, and sensation intact. 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 vg1 Historical: - Allergies: 18:10 Morphine; vg1 18:10 SHELLFISH; vg1 - Home Meds: 18:10 metoprolol tartrate 100 mg Oral tab 1 tab 2 times per day [Active]; clonidine HCl 0.3 vg1 mg Oral tab 1 tab three times a day [Active]; amlodipine 10 mg tab 1 tab once daily [Active]; doxazosin 4 mg Oral tab 1 tab once daily [Active]; hydralazine 50 mg Oral tab 1 tab three times a day [Active]; - PMHx: 18:10 bowel obstruction; Diabetes - IDDM; ESRD; Hypertension; Lupus; Renal Disease; Seizures; vg1 - Immunization history:: Adult Immunizations up to date, Client reports receiving the 2nd dose of the Covid vaccine. - Social history:: Smoking status: Patient denies any tobacco usage or history of. Screenin:14 Abuse screen: Denies threats or abuse. Nutritional screening: No deficits noted. vg1 Tuberculosis screening: No symptoms or risk factors identified. Fall Risk No fall in past 12 months (0 pts). No secondary diagnosis (0 pts). IV access (20 points). Ambulatory Aid- None/Bed Rest/Nurse Assist (0 pts). Gait- Normal/Bed Rest/Wheelchair (0 pts) Mental Status- Oriented to own ability (0 pts). Total Bucio Fall Scale indicates No Risk (0-24 pts). Assessment: 17:00 Reassessment: See Triage. vg1 19:03 Reassessment: Patient appears in no apparent distress at this time. No changes from vg1 previously documented assessment. Patient and/or family updated on plan of care and expected duration. Pain level reassessed. Patient is alert, oriented x 3, equal unlabored respirations, skin warm/dry/pink. 20:06 Reassessment: Received VO from Oliver Tucker to administer Zofran 4 mg IVP x1 and vg1 Potassium 20 mEq IV at calculated rate once. Vital Signs: 16:50 BP 200 / 93; Pulse 115; Resp 18; Temp 97.7; Pulse Ox 100% on R/A; Weight 87.09 kg; vg1 Height 5 ft. 2 in. (157.48 cm); Pain 9/10; 18:15 BP 175 / 99; Pulse 125; Resp 18; Pulse Ox 100% on R/A; vg1 18:30 BP 166 / 92; Pulse 130; Resp 16; Pulse Ox 100% ; vg1 19:00 BP 184 / 101; Pulse 130; Resp 16; Pulse Ox 100% ; vg1 19:20 BP 181 / 98; Pulse 111; Resp 16; Pulse Ox 100% on R/A; vg1 16:50 Body Mass Index 35.12 (87.09 kg, 157.48 cm) vg1 ED Course: 16:50 Arm band placed on. vg1 16:53 Patient arrived in ED. ds1 17:07 Tanner Horowitz PA is PHCP. jr8 17:07 Inder Rogers MD is Attending Physician. jr8 17:20 CT Head Brain wo Cont In Process Unspecified. EDMS 17:32 Melissa Simons, RN is Primary Nurse. vg1 17:50 Initial lab(s) drawn, by al, sent to lab. Missed attempt(s): 24 gauge in left hand. vg1 18:03 PHCP role handed off by Tanner Horowitz PA jm 18:03 Gurdeep Brandon PA is PHCP. jmm 18:03 Inserted saline lock: 22 gauge in right hand, using aseptic technique. ss 18:10 Triage completed. vg1 18:14 No provider procedures requiring assistance completed. vg1 18:14 Patient has correct armband on for positive identification. Bed in low position. Call vg1 light in reach. Side rails up X2. 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 Pulse ox on. NIBP on. 18:35 XRAY Chest (1 view) In Process Unspecified. EDMS 19:03 COVID swab sent to lab. vg1 19:15 CT Stone Protocol In Process Unspecified. EDMS 19:54 Niall Johnson MD is Hospitalizing Provider. jmm 21:22 Report given to Carlota SMITH. vg1 Administered Medications: 17:35 Drug: cloNIDine 0.3 mg Route: PO; vg1 20:52 Follow up: Response: No adverse reaction; No change in condition vg1 18:57 Drug: NS 0.9% 1000 ml Route: IV; Rate: 1 bolus; Site: right hand; vg1 18:58 Drug: fentaNYL (PF) 50 mcg Route: IVP; Site: right hand; vg1 20:53 Follow up: Response: No adverse reaction; Pain is decreased vg1 21:17 Drug: Zofran (Ondansetron) 4 mg Route: IVP; Site: right hand; vg1 21:20 Drug: Potassium Chloride 20 mEq Route: IV; Rate: calculated rate; Site: right hand; vg1 Outcome: 19:55 Decision to Hospitalize by Provider. evonne 04/25 00:25 Patient left the ED. lh3 Signatures: Dispatcher [employer] EDMS Gurdeep Brandon PA PA jmm Sanford, Demi ds1 Saray Newman RN RN Tanner Horowitz PA PA jrMelissa Pedroza RN RN vg1 Carlota Rivera RN RN 3 Corrections: (The following items were deleted from the chart) 04/24 20:07 20:06 Reassessment: Received VO from Oliver Tucker to administer Zofran 4 mg IVP x1 and vg1 Potassium 20 vg1
--- NOTE | 2021-04-24 19:56 | EDPHYS ---
Physician Documentation [facility] Name: Babs Younger Age: 50 yrs Sex: Female : 1970 Arrival Date: 04/24/2021 Time: 16:53 Bed 25 Private MD: ED Physician Inder Rogers HPI: 04/24 19:51 This 50 yrs old Black Female presents to ER via EMS with complaints of vomiting, jmm headache, pain. 19:51 The patient presents to the emergency department with vomiting. Onset: The jmm symptoms/episode began/occurred gradually, 2 day(s) ago. Possible causes:. The symptoms are aggravated by nothing. The symptoms are alleviated by nothing. -year-old female with a history of diabetes mellitus, hypertension, lupus that presents emerged part with complaints of generalized body aches, headache, elevated blood pressure, vomiting. Patient states she has been unable to hold liquids down over the past 2 days. Patient describes the body aches as similar to previous lupus flares.. 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 N/A - Hysterectomy vg1 Historical: - Allergies: 18:10 Morphine; vg1 18:10 SHELLFISH; vg1 - Home Meds: 18:10 metoprolol tartrate 100 mg Oral tab 1 tab 2 times per day [Active]; clonidine HCl 0.3 vg1 mg Oral tab 1 tab three times a day [Active]; amlodipine 10 mg tab 1 tab once daily [Active]; doxazosin 4 mg Oral tab 1 tab once daily [Active]; hydralazine 50 mg Oral tab 1 tab three times a day [Active]; - PMHx: 18:10 bowel obstruction; Diabetes - IDDM; ESRD; Hypertension; Lupus; Renal Disease; Seizures; vg1 - Immunization history:: Adult Immunizations up to date, Client reports receiving the 2nd dose of the Covid vaccine. - Social history:: Smoking status: Patient denies any tobacco usage or history of. ROS: 19:51 Cardiovascular: Negative for chest pain, palpitations, and edema, Respiratory: Negative jmm for shortness of breath, cough, wheezing, and pleuritic chest pain. 19:51 Constitutional: Positive for body aches. 19:51 Abdomen/GI: Positive for vomiting. 19:51 All other systems are negative. Exam: 19:51 Constitutional: This is a well developed, well nourished patient who is awake, alert, jmm and in no acute distress. Head/Face: atraumatic. Eyes: EOMI, no conjunctival erythema appreciated ENT: Moist Mucus Membranes Neck: Trachea midline, Supple Chest/axilla: Normal chest wall appearance and motion. Respiratory: Normal respirations, no respiratory distress appreciated 19:51 Abdomen/GI: Non distended, soft Back: Normal ROM Skin: General appearance color normal MS/ Extremity: Moves all extremities, no obvious deformities appreciated, no edema noted to the lower extremities Neuro: Awake and alert, normal gait Psych: Behavior is normal, Mood is normal, Patient is cooperative and pleasant 19:51 Cardiovascular: Rate: tachycardic, Rhythm: regular. Vital Signs: 16:50 BP 200 / 93; Pulse 115; Resp 18; Temp 97.7; Pulse Ox 100% on R/A; Weight 87.09 kg; vg1 Height 5 ft. 2 in. (157.48 cm); Pain 9/10; 18:15 BP 175 / 99; Pulse 125; Resp 18; Pulse Ox 100% on R/A; vg1 18:30 BP 166 / 92; Pulse 130; Resp 16; Pulse Ox 100% ; vg1 19:00 BP 184 / 101; Pulse 130; Resp 16; Pulse Ox 100% ; vg1 19:20 BP 181 / 98; Pulse 111; Resp 16; Pulse Ox 100% on R/A; vg1 16:50 Body Mass Index 35.12 (87.09 kg, 157.48 cm) vg1 MDM: 17:07 Patient medically screened. jr8 19:53 Data reviewed: vital signs, nurses notes. Counseling: I had a detailed discussion with rodney the patient and/or guardian regarding: the historical points, exam findings, and any diagnostic results supporting the discharge/admit diagnosis. ED course: I discussed the patient with Oliver Tucker whom accepted the patient to Dr. Elizabeth euceda.. 04/24 17:09 Order name: CBC with Diff; Complete Time: 18:08 04/24 17:09 Order name: Basic Metabolic Panel; Complete Time: 18:35 04/24 17:31 Order name: LFT's; Complete Time: 18:50 [facility] 04/24 17:31 Order name: Magnesium; Complete Time: 18:50 [facility] 04/24 17:31 Order name: NT PRO-BNP; Complete Time: 18:50 [facility] 04/24 17:31 Order name: PT-INR; Complete Time: 18:08 [facility] 04/24 17:09 Order name: CT Head Brain wo Cont; Complete Time: 17:32 [facility] 04/24 17:31 Order name: Troponin (emerg Dept Use Only); Complete Time: 18:50 [facility] 04/24 17:31 Order name: XRAY Chest (1 view); Complete Time: 19:37 [facility] 04/24 17:33 Order name: Urine --Ancillary (enter results) 04/24 17:33 Order name: Urine --Ancillary [facility] 04/24 18:55 Order name: CT Stone Protocol; Complete Time: 19:37 [facility] 04/24 21:36 Order name: SARS-COV-2 RT PCR; Complete Time: 22:21 [facility] 04/24 17:09 Order name: IV; Complete Time: 18:07 [facility] 04/24 17:31 Order name: EKG; Complete Time: 17:32 [facility] 04/24 17:31 Order name: Cardiac monitoring; Complete Time: 18:07 [facility] 04/24 17:31 Order name: EKG - Nurse/Tech; Complete Time: 18:07 [facility] 04/24 17:31 Order name: Labs collected and sent; Complete Time: 17:52 [facility] 04/24 17:31 Order name: O2 Per Protocol; Complete Time: 17:35 [facility] 04/24 17:31 Order name: O2 Sat Monitoring; Complete Time: 17:35 [facility] Administered Medications: 17:35 Drug: cloNIDine 0.3 mg Route: PO; vg1 20:52 Follow up: Response: No adverse reaction; No change in condition vg1 18:57 Drug: NS 0.9% 1000 ml Route: IV; Rate: 1 bolus; Site: right hand; vg1 18:58 Drug: fentaNYL (PF) 50 mcg Route: IVP; Site: right hand; vg1 20:53 Follow up: Response: No adverse reaction; Pain is decreased vg1 21:17 Drug: Zofran (Ondansetron) 4 mg Route: IVP; Site: right hand; vg1 21:20 Drug: Potassium Chloride 20 mEq Route: IV; Rate: calculated rate; Site: right hand; vg1 Disposition Summary: 04/24/21 19:55 Hospitalization Ordered Hospitalization Status: Observation [facility] Provider: Niall Johnson Location: Telemetry/MedSurg (observation) jmm Condition: Stable jmm Problem: an acute exacerbation jmm Symptoms: have improved jmm Bed/Room Type: Standard [facility] Room Assignment: 232(04/24/21 21:48) mw Diagnosis - Essential (primary) hypertension jmm - Systemic lupus erythematosus, unspecified jmm - Acute Kidney Injury jmm Forms: - Medication Reconciliation Form jmm - SBAR form jmm Signatures: Dispatcher [employer] EDMS Jamilah Pritchard RN RN mw Gurdeep Brandon PA PA jmm Roszak, Josh, PA PA jr8 Melissa Simons RN RN vg1 Corrections: (The following items were deleted from the chart) 20:31 18:53 CORONAVIRUS+BRZ ordered. EDIN EDMS 21:48 19:55 jmm mw
--- NOTE | 2021-04-24 20:37 | P.HP ---
Certification for Inpatient Patient admitted to: Inpatient With expected LOS: <2 Midnights Patient will require the following post-hospital care: None Practitioner: I am a practitioner with admitting privileges, knowledge of patient current condition, hospital course, and medical plan of care. Services: Services provided to patient in accordance with Admission requirements found in Title 42 Section 412.3 of the Code of Federal Regulations Patient History Date of Service: 04/24/21 Primary Care Provider: Estiven Reason for admission: lupus flare History of Present Illness: Ms. Delgado is a 50 yo F with SLE, HTN, T2DM, CKD4, CAD, afib, history of seizures who presents with two days of body aches, vomiting and abdominal pain. She says vomiting started yesterday and has continued to worsen. She has been unable to keep any food down. She also reports heart palpitations, and dehydration. Denies fever. Says she does not take steroids for her flares due to her kidney function. She says it feels like one of her usual lupus flares, and was triggered by stress after a break-in at her home. Her last flare was over a year ago. H/H 11, K2.8, HCO3 17, BUN 28, Cr 1.69, GFr 39, Glu 124, Mg 1.7, alk phos 149, BNP 1150. CT head wnl. CXR wnl. CT abdomen showed borderline gallbladder distention and moderate amount of stool within the colon. Initial vitals - BP 200/93, pulse 115 bpm. Given fluids, 0.3 of clonidine and fentanyl in the ED and admitted for further management. Negative for a genitourinary calculus Allergies morphine Allergy (Severe, Verified 09/07/17 09:12) Unknown Home Medications: Hydralazine HCl 100 mg PO TID 07/09/15 Metoprolol Tartrate 100 mg PO BID 07/09/15 cloNIDine HCL [Clonidine HCl] 0.3 mg PO TID 07/09/15 Amlodipine [Norvasc*] 10 mg PO DAILY 08/08/15 Doxazosin [Cardura*] 4 mg PO DAILY 09/07/17 Gabapentin 100 mg PO DAILY PRN 09/07/17 Hydrocodone Bit/Acetaminophen [[place] 10-325 Tablet] 1 tab PO QIDP PRN 09/07/17 Hydroxychloroquine [Plaquenil*] 200 mg PO DAILY 09/07/17 Zolpidem Tartrate [Ambien] 5 mg PO BEDTIME PRN PRN 09/07/17 Mycophenolate Mofetil [Cellcept] 2 tab PO BID 08/02/19 Na Bicarb Tab [Sodium Bicarb 325 MG Tab*] 650 mg PO QID #60 tab 08/04/19 Calcitrol [Rocaltrol*] 0.5 mcg PO DAILY #60 cap 08/30/20 Furosemide [Lasix*] 1 tab PO BID 08/30/20 Ondansetron [Zofran (Odt)*] 1 tab PO DAILY PRN 08/30/20 PHENYTOIN ER Cap [Dilantin ER Cap] 300 mg PO BEDTIME #90 cap 08/30/20 - Past Medical/Surgical History Diabetic: Yes -: Lupus, Rheumatology-Dr. Rothman -: HTN -: Seizure disorder -: History of Small bowel obstruction -: Ileostomy in place -: CAD -: History of avascular necrosis -: History of pyelonephritis -: Depression with history of suicidal ideation -: depression -: -: Hysterectomy -: Bowel resection -: Colostomy -: trach (reversed) -: Removal of colostomy now with ileostomy Psychosocial/ Personal History: single, one child. - Family History Sister Notes: lupus Father -: Kidney disease Notes: Mother -: Hypertension, Cancer Notes: , uterine Brother -: Hypertension, Diabetes - Social History Smoking Status: Never smoker Alcohol use: No CD- Drugs: No Caffeine use: Yes Place of Residence: Home Review of Systems 10-point ROS is otherwise unremarkable General: Malaise Gastrointestinal: Nausea, Vomiting, Abdominal Pain Musculoskeletal: Neck Pain, Shoulder Pain, Arm Pain, Back Pain, Hand Pain, Leg Pain, Foot Pain Physical Examination - Physical Exam General: Alert, In no apparent distress HEENT: Atraumatic, PERRLA, Mucous membr. moist/pink, EOMI, Sclerae nonicteric Neck: Supple, 2+ carotid pulse no bruit, No LAD, Without JVD or thyroid abnormality Respiratory: Clear to auscultation bilaterally, Normal air movement Cardiovascular: Normal S1 S2, Irregular heart rate/rhythm (tachycardic) Capillary refill: <2 Seconds Gastrointestinal: Normal bowel sounds, No tenderness Musculoskeletal: No clubbing, No swelling, No contractures, No erythema, No warmth, Tenderness Integumentary: No rashes Neurological: Normal speech, Normal strength at 5/5 x4 extr, Normal tone, Normal affect Lymphatics: No axilla or inguinal lymphadenopathy - Studies Laboratory Data (last 24 hrs) 04/24/21 17:50: PT 12.4, INR 1.08 04/24/21 17:50: Magnesium 1.7 L, Total Bilirubin 0.4, AST 18, ALT 19, Alkaline Phosphatase 149 H 04/24/21 17:50: Sodium 136, Potassium 2.8 L*, BUN 28 H, Creatinine 1.69 H, Glucose 124 H 04/24/21 17:50: WBC 5.30, Hgb 11.0 L, Hct 33.8 L, Plt Count 283 Assessment and Plan - Problems (Diagnosis) (1) Abdominal pain Onset Date: 12/10/15 Current Visit: No Status: Acute Qualifiers: Abdominal location: unspecified location Qualified Code(s): R10.9 - Unspecified abdominal pain (2) Hypertensive urgency Onset Date: 04/28/18 Current Visit: No Status: Acute (3) Hypokalemia Onset Date: 11/26/14 Current Visit: No Status: Acute (4) Nausea and vomiting Onset Date: 09/07/17 Current Visit: No Status: Acute Qualifiers: Vomiting type: unspecified Vomiting Intractability: non-intractable Qualified Code(s): R11.2 - Nausea with vomiting, unspecified (5) CHF (congestive heart failure) Onset Date: 10/31/17 Current Visit: No Status: Chronic Qualifiers: Qualified Code(s): I50.32 - Chronic diastolic (congestive) heart failure (6) Chronic renal disease Current Visit: No Status: Chronic Qualifiers: Chronic kidney disease stage 3 subtype: stage 3b (GFR 30-44) (7) Diabetes mellitus Onset Date: 04/28/18 Current Visit: No Status: Chronic Qualifiers: Diabetes mellitus type: type 2 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: with termite treater helper use Diabetes mellitus complication status: with other specified complication Qualified Code(s): E11.69 - Type 2 diabetes mellitus with other specified complication; Z79.4 - 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 terminal operator (current) use of insulin; Z79.4 - computer terminal operator (current) use of insulin; Z79.4 - retirement (current) use of insulin; Z79.4 - computer terminal operator (current) use of insulin (8) Lupus Onset Date: 10/31/17 Current Visit: No Status: Chronic Qualifiers: Systemic lupus erythematosus type: unspecified Systemic lupus erythematosus organ involvement: unspecified Qualified Code(s): M32.9 - Systemic lupus erythematosus, unspecified (9) Seizure disorder Onset Date: 04/28/18 Current Visit: No Status: Chronic - Plan continue gentle IVF hydration, repeat BMP in the AM potassium and magnesium replacement protocol on telemetry seizure precautions, ativan PRN for seizures reconcile and continue home BP medications reconcile and continue home SLE medications reconcile and continue home sodium bicarb continue antiemetics and pain management sliding scale insulin and accuchecks DVT ppx Discharge Plan: Home Plan to discharge in: 48 Hours - Advance Directives Does patient have a Living Will: No Does patient have a Durable POA for Healthcare: No - Code Status/Comfort Care Code Status Assessed: Yes (full code ) Critical Care: No Time Spent Managing Pts Care (In Minutes): 70
[2021-04-24] MEDS ORDERED: ONDANSETRON 4 MG/2 ML VIAL ONE (21:38)
[2021-04-24] MEDS ORDERED: KCL 20 MEQ/100 mL IVPB 20 MEQ/100 ML BAG IV ONE ×2 (21:38→23:57)
[2021-04-24] MEDS ORDERED: GABAPENTIN 100 MG CAP PO PRN (22:08)
[2021-04-24] MEDS ORDERED: HYDRALAZINE HCL 20 MG/ML VIAL IV PRN (22:08)
[2021-04-24] MEDS: METOPROLOL TAR 50 MG TAB PO SCH (22:08)
[2021-04-24] MEDS: NA CHLORIDE 0.9% 1,000 ML IV SCH (22:08)
[2021-04-24] MEDS ORDERED: ACETAMINOPHEN 500 MG TAB PO PRN (22:08)
[2021-04-24] MEDS ORDERED: ONDANSETRON 4 MG/2 ML VIAL IV PRN (22:08)
[2021-04-24] MEDS ORDERED: LORazepam 2 MG/ML VIAL IV PRN (22:08)
[2021-04-24] MEDS: INSULIN -REGULAR HUMAN 50 UNIT/0.5 ML ML SQ SCH (22:08)
[2021-04-24] MEDS ORDERED: METOPROLOL TARTRATE 5 MG/5 ML INJ IV PRN (22:08)
[2021-04-24] MEDS: KCL 20 MEQ/100 mL IVPB 20 MEQ/100 ML BAG IV SCH (22:08)
[2021-04-24] MEDS ORDERED: METOPROLOL TAR 50 MG TAB PO SCH (22:08)
[2021-04-25 00:35] VITALS: BMI 27.5
[2021-04-25] MEDS: FENTANYL CITR 100 MCG/2 ML IV PRN ×2 (01:17→08:37)
[2021-04-25] MEDS: HEPARIN 5000 UNIT/ML 1 ML VIAL SQ SCH ×2 (01:18→08:39)
[2021-04-25] MEDS ORDERED: ZOLPIDEM TARTRATE 10 MG TABLET PO PRN (01:58)
[2021-04-25] MEDS: KCL 20 MEQ/100 mL IVPB 20 MEQ/100 ML BAG IV SCH (02:27)
[2021-04-25 03:43] LABS: Absolute Lymphocytes (CBC) 1.1 K/uL (0.7-4.9); Basophils % 0.6 % (0-1.3); Hematocrit 31.5 % (36.0-45.0); Lymphocytes % 19.7 % (15.3-44.8); MPV 7.3 fL (7.6-11.3); RBC Red Blood Cell Count 3.89 M/uL (3.86-4.86)
[2021-04-25 04:01] LABS: Albumin 3.5 g/dL (3.4-5.0); Bilirubin Total 0.4 mg/dL (0.2-1.0); Magnesium 1.8 mg/dL (1.8-2.4); Phosphorus 3.3 mg/dL (2.5-4.9); Potassium 3.9 mmol/L (3.5-5.1); Protein, Total 7.8 g/dL (6.4-8.2)
[2021-04-25] MEDS: INSULIN -REGULAR HUMAN 50 UNIT/0.5 ML ML SQ SCH ×2 (07:30→11:30)
[2021-04-25] MEDS: METOPROLOL TAR 50 MG TAB PO SCH (08:38)
[2021-04-25] MEDS: SODIUM BICARB 325 MG TAB PO SCH ×2 (08:39→13:00)
[2021-04-25] MEDS ORDERED: POTASSIUM CL SA 10 MEQ TAB PO ONE (09:00)
[2021-04-25] MEDS ORDERED: AMLODIPINE 10 MG TAB PO SCH (09:00)
[2021-04-25] MEDS ORDERED: HYDROXYCHLOROQUINE 200MG TAB PO SCH (09:00)
[2021-04-25] MEDS ORDERED: DOXAZOSIN 4 MG TAB PO SCH (09:00)
[2021-04-25] MEDS ORDERED: HYDRALAZINE HCL 25 MG TABLET PO SCH (09:00)
[2021-04-25] MEDS ORDERED: MAGNESIUM SULFATE 1 gm IVPB 1 GM/100 ML BAG IV ONE (09:00)
[2021-04-25] MEDS ORDERED: ACETAMIN/CAFFEINE/BUTALB TAB PO PRN (11:55)
[2021-04-25] MEDS ORDERED: CLONIDINE 0.1 MG/PATCH TD SCH (12:00)
[2021-04-25] MEDS ORDERED: SUMATRIPTAN SUCC 6MG/0.5ML VIAL SQ ONE (12:00)
[2021-04-25] MEDS ORDERED: CLONIDINE HCL 0.3 MG TAB PO SCH (12:00)
[2021-04-25 12:15] VITALS: BP 180/110
[2021-04-25] MEDS: NA CHLORIDE 0.9% 1,000 ML IV SCH (12:32)
[2021-04-25] MEDS ORDERED: LORazepam 2 MG/ML VIAL IV ONE (13:00)
[2021-04-25 14:34] VITALS: O2SAT 98
--- NOTE | 2021-04-25 14:43 | P.DS ---
Admission Date: 04/24/21 Discharge Date: 04/25/21 Primary Care Provider: Estiven Discharge Condition: GOOD Reason for Admission: lupus flare Brief History of Present Illness: Patient was admitted for lupus flair. She had 2 days of increased body pain with nausea. She was admitted to the floor Hospital Course: She was admitted and kept on the floor. She has very difficult to control bp. She states this is always like this as the patient does not like staying in hospitals. She one spent a year in a hospital and this seems to alter her bp. States that when she goes home her bp improves. She can follow up as an outpatient . Vital Signs/Physical Exam: Temp Pulse Resp BP Pulse Ox 98.2 F 82 19 180/110 H 99 04/25/21 08:00 04/25/21 12:11 04/25/21 09:07 04/25/21 12:11 04/25/21 09:07 General: Alert, In no apparent distress HEENT: Atraumatic, PERRLA, EOMI Neck: Supple, JVD not distended Respiratory: Clear to auscultation bilaterally, Normal air movement Cardiovascular: Regular rate/rhythm, Normal S1 S2 Gastrointestinal: Normal bowel sounds, No tenderness Musculoskeletal: No tenderness Integumentary: No rashes Neurological: Normal speech, Normal tone, Normal affect Lymphatics: No axilla or inguinal lymphadenopathy Laboratory Data at Discharge: WBC 5.40 K/uL (4.3-10.9) 04/25/21 03:20 Hgb 10.2 g/dL (12.0-15.0) L 04/25/21 03:20 Hct 31.5 % (36.0-45.0) L 04/25/21 03:20 Plt Count 268 K/uL (152-406) 04/25/21 03:20 PT 12.4 SECONDS (9.5-12.5) 04/24/21 17:50 INR 1.08 04/24/21 17:50 Sodium 141 mmol/L (136-145) 04/25/21 03:20 Potassium 3.9 mmol/L (3.5-5.1) 04/25/21 03:20 BUN 24 mg/dL (7-18) H 04/25/21 03:20 Creatinine 1.54 mg/dL (0.55-1.3) H 04/25/21 03:20 Glucose 102 mg/dL (74-106) 04/25/21 03:20 Phosphorus 3.3 mg/dL (2.5-4.9) 04/25/21 03:20 Magnesium 1.8 mg/dL (1.8-2.4) 04/25/21 03:20 Total Bilirubin 0.4 mg/dL (0.2-1.0) 04/25/21 03:20 AST 17 U/L (15-37) 04/25/21 03:20 ALT 21 U/L (12-78) 04/25/21 03:20 Alkaline Phosphatase 132 U/L (45-117) H 04/25/21 03:20 Home Medications: Hydralazine HCl 100 mg PO TID 07/09/15 Metoprolol Tartrate 100 mg PO BID 07/09/15 cloNIDine HCL [Clonidine HCl] 0.3 mg PO BID 07/09/15 Amlodipine [Norvasc*] 10 mg PO DAILY 08/08/15 Doxazosin [Cardura*] 4 mg PO DAILY 09/07/17 Gabapentin 300 mg PO DAILY PRN 09/07/17 Hydroxychloroquine [Plaquenil*] 200 mg PO BID 09/07/17 Zolpidem Tartrate [Ambien] 10 mg PO BEDTIME PRN PRN 09/07/17 Mycophenolate Mofetil [Cellcept] 2 tab PO BID 08/02/19 Furosemide [Lasix*] 1 tab PO BID 08/30/20 Ondansetron [Zofran (Odt)*] 1 tab PO DAILY PRN 08/30/20 Alprazolam [Xanax] 2 tab PO DAILY 04/25/21 Na Bicarb Tab [Sodium Bicarb 325 MG Tab*] 650 mg PO DAILY 04/25/21 Diet: ADA Activity: Ad jorge Followup: Niall Johnson MD [ACTIVE - CAN ADMIT] - Unknown,U [Primary Care Provider] - Physician Review: Patient Assessed, Agree with Above Assessment and Plan Time spent managing pt's care (in minutes): 30
[2021-04-25 15:14] VITALS: TEMP 97.5
== END 2021-04-25 14:30 | disposition left against medical advice (07) ==
LOC: ER 16:52 → INTOOBSV 20:14 → ERHOLD 20:14 → 2ND 23:12
PROVIDERS: ADMIT Internal Medicine; ATTEND Internal Medicine
DX: M32.9 Systemic lupus erythematosus, unspecified (principal); Z53.29 Procedure and treatment not carried out because of patient's decision for other reasons; I16.0 Hypertensive urgency; I13.0 Hypertensive heart and chronic kidney disease with heart failure and stage 1 through stage 4 chronic kidney disease, or unspecified chronic kidney disease; E11.22 Type 2 diabetes mellitus with diabetic chronic kidney disease; I50.32 Chronic diastolic (congestive) heart failure; N18.32 Chronic kidney disease, stage 3b; N17.9 Acute kidney failure, unspecified; R11.2 Nausea with vomiting, unspecified; I25.10 Atherosclerotic heart disease of native coronary artery without angina pectoris; I48.91 Unspecified atrial fibrillation; E87.6 Hypokalemia; R10.9 Unspecified abdominal pain; G40.909 Epilepsy, unspecified, not intractable, without status epilepticus; F32.9 Major depressive disorder, single episode, unspecified; Z20.822 Contact with and (suspected) exposure to COVID-19; Z93.2 Ileostomy status; Z79.4 Long term (current) use of insulin; Z88.6 Allergy status to analgesic agent; Z91.013 Allergy to seafood; Z90.49 Acquired absence of other specified parts of digestive tract; Z90.710 Acquired absence of both cervix and uterus; Z83.3 Family history of diabetes mellitus; Z82.49 Family history of ischemic heart disease and other diseases of the circulatory system; Z84.1 Family history of disorders of kidney and ureter; Z80.49 Family history of malignant neoplasm of other genital organs; Z83.2 Family history of diseases of the blood and blood-forming organs and certain disorders involving the immune mechanism
CPT/HCPCS: 93005; 85025 ×2; 80048; 36415; 83735 ×2; 81025; 84100; 85610; 82947 ×3; 80076; 84484; 80053; 83880; 70450; 76377; 74176; 71045; 94760; 96375; 96374; 99284; U0003; J0360; J3030; J1644 ×2; J3480 ×3; J3010 ×4; J3475; J7030 ×3; J2405 ×2; G0378 ×3

== ENCOUNTER 2021-04-27 02:48 | Emergency (ER) | payer OTHER ==
--- OUTSIDE RECORDS SUMMARY | 2021-04-27 02:52 | XMS REPORT | Continuity of Care Document ---
:1970 Author Organization [facility] t Address [address] [place] [address] Care Team Providers Name Role Phone Dorota Espinzoa DO Primary Care Physician Zion WALTER, T Attending Clinician CAROLYN LI Attending Clinician Unavailable CAROLYN LI Admitting Clinician Unavailable Problems Condition Condition Condition Status Onset Resolution Last Treating Co mments Source Name Details Category Date Date Treatment Clinician Date Hypertensi Hypertensi Disease Active 2019-0 M ethodi ve ve 12 st emergency emergency 00:00: [facility] 00 l Attention Attention Disease Active 2018-08 [facility] to to 10-25 st ileostomy ileostomy 00:00: [facility] 00 l Type 2 Type 2 Disease Active 2018-08 [facility] diabetes diabetes 1-04 st mellitus mellitus 00:00: Hospit a 00 l CKD CKD Disease Active 2018-08 [facility] (chronic (chronic - st kidney kidney 00:00: Hospita disease) disease) 00 [...] pain 09-27 [facility]: [facility] 00 [place] Systemic Systemic Disease Active 2017-[facility] lupus lupus 09-27 [facility] - erythemato erythemato 00:00: Me dical al al 00 Center Essential Essential Disease Active 2017-[address] hypertensi hypertensi 09-27 [facility] - on on 00:00: Medical 00 [place] Type 2 Type 2 Disease Active 2017-[address] diabetes diabetes 09-27 [facility] - mellitus mellitus 00:00: Medica l with with 00 Center kidney kidney complicati complicati on, with on, with long-term long-term current current use of use of insulin insulin Colostomy Colostomy Disease Active 2017-[address] complicati complicati 09-27 [facility] - on on 00:00: Medical 00 [place] bright red bright red Disease Active 2017-[address] blood in blood in 09-27 [facility] - colostomy colostomy 00:00: Medi valentin 00 Center HTN HTN Disease Active 2017-[address] (hypertens (hypertens 09-27 [facility] - ion), ion), 00:00: Medical malignant malignant 00 Cent er Lupus Lupus Disease Active 2017-[address] nephritis nephritis 09-27 [facility] - 00:00: Medical 00 Center DAE (acute DAE (acute Disease Active 2017-[address] kidney kidney 09-27 [facility] - injury) injury) 00:00: Medical 00 [place] Hypernatre Hypernatre Disease Active 2017-[address] charisse charisse 09-27 [facility] - 00:[facility]: Medical 00 [place] Hypokalemi Hypokalemi Disease Active 2018-[address] a a 09-27 [facility] - 00:[facility]: Medical 00 Center Colostomy Colostomy Disease Active Met hodi in place in place 02-23 00:00: Hospita 00 l Allergies, Adverse Reactions, Alerts Allergy Allergy Status Severity Reaction(s) Onset Inactive Treating Comm ents Source Name Type Date Date Clinician Anjali Propensi Active 2017-[address] h ty [...] Date Stop Date Source Natural father Kidney cancer [facility] Natural father Kidney disease [facility] Natural mother Uterine cancer Method [facility] Natural mother Cancer [facility] Natural mother Hypertension [facility] Natural sister Diabetes [facility] Social History Social Habit Start Date Stop Date Quantity Comments Source History [facility] Alcohol Std Drinks Medica [facility] History [facility] Alcohol Binge Medical [facility] ter Sex Assigned At [facility] Tobacco use and 2019-08-27 2019-08-27 Never used [facility]00 Hospital Alcohol intake 2018-07-28 2018-07-[address] [facility] 00:00:00 00:00:00 non-drinker of Medical Ce nter alcohol (finding) History [facility] 2018-07-28 2018-07-28 1 [facility] - Alcohol Frequency 00:00:00 00:00:00 Medical Center Smoking Status Start Date Stop Date Source Never smoker [facility] edical [place] Medications Ordered Filled Start Stop Current Ordering Indication Dosage Frequency Signature Comments Components Source Medication Medication Date Date Medication? Clinician (SIG) Name Name hydroxychlo 2020-0 Yes 500mg Q.5D Take 500 M ethodi [...] 2019-0 Yes 25mg QD Take 25 mg M [...] mouth. Jose es - MG tablet 08:16: [address] pantoprazol 2017-08 Yes 40mg QD Take [address] [facility] e 2-04 by mouth [facility] - (PROTONIX) 08:16: daily. Medic al 40 MG 44 Center tablet doxazosin 2017-08 Yes 4mg Take [address] (CARDURA) 2 2-04 by mouth. Jose es - MG tablet 08:16: [address] pantoprazol 2017-08 Yes 40mg QD Take [address] e 2-04 by mouth [facility] - (PROTONIX) 08:16: daily. Medic al 40 MG 44 Center tablet zolpidem 2017-08 Yes 10mg QD Take [address] (AMBIEN) 10 1-25 by mouth [facility] - mg tablet 00:00: nightly. [facility] [place] zolpidem 2017-08 Yes 10mg QD Take [address] (AMBIEN) 10 1-25 by mouth [facility] - mg tablet 00:00: nightly. [facility] [place] ondansetron 2017-08 Yes DIS [address] [facility] (ZOFRAN-ODT 1-23 THE TONGUE [facility] kes - ) 8 MG 00:00: BID Medical disintegr[address] ing tablet ondansetron 2017-08 Yes DIS [address] [facility] (ZOFRAN-ODT 1-23 THE TONGUE [facility] k[facility] - ) 8 MG 00:00: BID Medical disintegrat 00 Center ing tablet HYDROcodone 2017-08 Yes TK [address] [facility] -acetaminop 1-15 Q 8 H PRN Jose es - hen (NORCO 00:00: Medical 10325) 00 Center 10-325 mg per tablet HYDROcodone 2017-08 Yes TK [address] [facility] -acetaminop 1-15 Q 8 H PRN Jose [facility] - hen (NORCO 00:00: Medical 10) 00 Center 10-325 mg per tablet HUMULIN 2017-08 Yes INJECT 60 [facility] 70/30 U-100 1-09 UNITS SQ Luke [facility] - KWIKPEN 100 00:00: QAM AND 40 Medical unit/mL 00 UNITS QPM Center (70-30) InPn insulin pen HUMULIN 2017-08 Yes INJECT 60 [facility] [...] Medica l 200 mg 00 Center tablet gabapentin 2017-08 Yes TK 1 C PO [...] mg 00 (two) Center tablet times daily. mycophenola Yes 1000mg Q.5D Take 1,[address] te 4-07 mg by [facility] - (CELLCEPT) 00:00: mouth 2 Medi valentin 500 mg 00 (two) Center tablet times daily. amLODIPine 2014-08 Yes 10mg Take [address] (NORVASC) 2-11 by mouth. [facility] - 10 MG 00:00: Medical tablet 00 Center amLODIPine 2014-08 Yes 10mg Take [address] (NORVASC) 2-11 by mouth. [facility] - 10 MG 00:00: Medical tablet 00 [place] cloNIDine 2014-08 Yes .3mg Q.71120071 Take 0.[address] HCl 1-11 [id number] mg by [facility] - (CATAPRES) 00:00: 3D mouth 3 Medi valentin 0.3 MG 00 (three) Center tablet times daily . furosemide 2014-08 Yes 80mg Take [address] (LASIX) 40 1-11 by mouth . [facility] - MG tablet 00:00: Medical 00 [place] hydrALAZINE 2014-08 Yes 50mg Q.09168146 Take [address] (APRESOLINE 1-11 [id number] by mouth 3 [facility] - ) 50 MG 00:00: 3D (three) Medical tablet 00 times Center daily. metoprolol 2014-08 Yes 100mg Q.5D Take [address] (LOPRESSOR) 1-11 mg by [facility] - 100 MG 00:00: mouth 2 Medical tablet 00 (two) Center times daily. cloNIDine 2014-08 Yes .3mg Q.71876570 Take 0.[address] HCl 1-11 [id number] mg by [facility] - (CATAPRES) 00:00: 3D mouth 3 Medi valentin 0.3 MG 00 (three) Center tablet times daily . furosemide 2014-08 Yes 80mg Take [address] (LASIX) 40 1-11 by mouth . [facility] - MG tablet 00:00: Medical 00 [place] hydrALAZINE 2014-08 Yes 50mg Q.08735033 Take [address] (APRESOLINE 1-11 [id number] by mouth 3 [facility] - ) 50 MG 00:00: 3D (three) Medical tablet 00 times Center daily. metoprolol 2014- Yes 100mg Q.5D Take 100 CH I [...] Center INFLUENZA VACCINE (Season Ended)] Future Scheduled 2021-04-[address] [facility] - Test 00:00:00 (Season Ended) [code = Medic al Center INFLUENZA VACCINE (Season Ended)] Future Scheduled 2020-08-[address] [facility] - Test 00:00:00 (12+) [code = Medical Center DEPRESSION SCREENING (12+)] Future Scheduled 2020-08-[address] [facility] - Test 00:00:00 (12+) [code = [facility] Center DEPRESSION SCREENING (12+)] Future Scheduled 2020 SHINGLES VACCINES ([address] [facility] - Test 00:00:00 of 2) [code = SHINGLES Medic al Center VACCINES (1 of 2)] Future Scheduled 2020 SHINGLES VACCINES ([address] [facility] - Test 00:00:00 of 2) [code = SHINGLES Medic al Center VACCINES (1 of 2)] Future Scheduled 2019-01-[address] [facility] - Test 00:00:00 measurement Medical Center (procedure) [code = 47790691] Future Scheduled 2019-01-[address] [facility] - Test 00:00:00 measurement Medical Center (procedure) [code = 91946605] Future Scheduled 2018-08-[address] [facility] - Test 00:00:00 WELLNESS (YEAR 2 or Medical Center FIRST YEAR if no IPPE) [code = MEDICARE ANNUAL WELLNESS (YEAR 2 or FIRST YEAR if no IPPE)] Future Scheduled 2018-08-[address] [facility] - Test 00:00:00 WELLNESS (YEAR 2 or Medical Center FIRST YEAR if no IPPE) [code = MEDICARE ANNUAL WELLNESS (YEAR 2 or FIRST YEAR if no IPPE)] Future Scheduled [address] [facility] - Test 00:00:00 (procedure) [code = [facility] Center 55558647] Future Scheduled [address] [facility] - Test 00:00:00 (procedure) [code = [facility] Center 82281951] Future Scheduled 2014-06-[address] [facility] - Test 00:00:00 0-64 YRS (2 of 3 - Medical C enter PCV13) [code = PNEUMOCOCCAL VACCINE 0-64 YRS (2 of 3 - PCV13)] Future Scheduled 2014-06-[address] [facility] - Test 00:00:00 0-64 YRS (2 of 3 - Medical C enter PCV13) [code = PNEUMOCOCCAL VACCINE 0-64 YRS (2 of 3 - PCV13)] Future Scheduled [address] [facility] - Test 00:00:00 [facility] cervix (procedure) [code = 829757708] Future Scheduled [address] [facility] - Test 00:00:00 [facility] cervix (procedure) [code = 433572825] Future Scheduled 1989 DTAP/TDAP/TD VACCINES [facility] Test 00:00:00 (1 - Tdap) [code = Medical C enter DTAP/TDAP/TD VACCINES (1 - Tdap)] Future Scheduled 1989 DTAP/TDAP/TD VACCINES [facility] Test 00:00:00 (1 - Tdap) [code = Medical C enter DTAP/TDAP/TD VACCINES (1 - Tdap)] Future Scheduled 1988 HEPATITIS C [facility]CRE[facility]ING [facility] Test 00:00:00 [code = HEPATITIS C Medical Center SCREENING] Future Scheduled 1988 HEPATITIS C [facility]ING [facility] Test 00:00:00 [code = HEPATITIS C Medical Center SCREENING] Future Scheduled 1982 COVID-19 VACCINE (1) [facility] Test 00:00:00 [code = COVID-[address] VACCINE (1)] Future Scheduled 1982 COVID-19 VACCINE (1) [facility] Test 00:00:00 [code = COVID-[address] VACCINE (1)] Future Scheduled [address] DIABETIC EYE EXAM [facility] Test 00:00:00 [code = DIABETIC EYE Medical Center EXAM] Future Scheduled [address] [facility] - Test 00:00:00 examination Medical Center (regime/therapy) [code = 465638212] Future Scheduled 1980 Urine screening for [facility] Test 00:00:00 protein (procedure) Medical Center [code = 841956435] Future Scheduled 1980 DIABETIC EYE EXAM [facility] Test 00:00:00 [code = DIABETIC EYE Medical Center EXAM] Future Scheduled [address] [facility] - Test 00:00:00 examination Medical Center (regime/therapy) [code = 401792213] Future Scheduled 1980 Urine screening for [facility] Test 00:00:00 protein (procedure) Medical Center [code = 835526543] Future Scheduled [address] [facility] - Test 00:00:00 malignant neoplasm of Medica l Center breast (procedure) [code = 002202641] Future Scheduled [address] [facility] - Test 00:00:00 malignant neoplasm of Medica l Center colon (procedure) [code = 924725024] Future Scheduled [address] [facility] - Test 00:00:00 malignant neoplasm of Medica l Center breast (procedure) [code = 876555296] Future Scheduled [address] [facility] - Test 00:00:00 malignant neoplasm of Medica l Center colon (procedure) [code = 398379388] Future Scheduled DIABETES: RETINAL EYE [facility] Test EXAM [code = DIABETES: RETINAL EYE EXAM] Future Scheduled DIABETIC FOOT EXAM [facility] Test [code = DIABETIC FOOT EXAM] Future Scheduled COVID-19 VACCINE (1) [facility] [code = COVID-19 VACCINE (1)] Future Scheduled Hepatitis C screening [facility] Test (procedure) [code = 778713942] Future Scheduled Screening for [facility] Test malignant neoplasm of cervix (procedure) [code = 497707055] Future Scheduled BREAST CANCER [facility] Test SCREENING [code = BREAST CANCER [...] Clinicians Facility Department ID 2020-11-12 2020-11-12 Office Everardobhaveshearlene [facility] [phone] [id number] 13:40:03 14:10:03 Visit Ligia Gonzalez [id number] [place] [id number] Professio [phone] nal 085 Building Results Test Description Test Time Test Comments Results Result Comments Source BLOOD CULTURE 2018-08-02 17:01:00 Test Item Value Reference Range Interpretation Comme nts CULTURE (BEAKER) (test code = 1095) No growth in 5 days LUPUS ANTICOAGULANT SCREEN WITH REFLEX TO [id number] 16:08:00 Test Item Value Reference Range Interpretation Comments DRVV SCREEN RATIO 1.55 <1.20 H (BEAKER) (test code = 2707) DRVV CONFIRM RATIO 0.93 (test code = 2709) DRVV NORMALIZED RATIO 1.67 <1.20 H (test code = 2710) DRVV INTERPRETATION Positive screen for (BEAKER) (test code = Lupus Anticoagulant 4306) with hexagonal phospholipid confirmation. Suggest repeat testing in 12 weeks and when patient not receiving anticoagulant therapy. PROTIME (BEAKER) (test 15.0 seconds 11.7-14.7 H code = 759) INR (BEAKER) (test code 1.2 <=5.9 = 370) PARTIAL THROMBOPLASTIN 36.1 seconds 22.5-36.0 H TIME (BEAKER) (test code = 760) PTT-LA (BEAKER) (test 45.2 32.0-41.8 H code = 6404669634) [id number] Cindy Chavira MD (BEAKER) (test code = (electronic signature) 2610) HEXAGONAL [id number] 14:08:00 Test Item Value Reference Range Interpretation Comments HEXAGONAL PHOSPHOLIPID (BEAKER) Positive (test code = 1790) BLOOD [id number] 10:01:00 Test Item Value Reference Range Interpretation Comments CULTURE ([facility]) (test No growth in 5 days code = 1095) DOUBLE-STRANDED DNA (DSDNA) [id number] 05:52:00 Test Item Value Reference Range Interpretation Comments ANTI-DNA DS ([facility]) (test code = Negative 1055) CARDIOLIPIN ANTIBODIES, IGG AND [id number] 15:01:00 Test Item Value Reference Range Interpretation Comments ANTICARDIOLIPIN IGG ANTIBODY ([facility]) < GPL <20.0 (test code = 712) ANTICARDIOLIPIN IGM ANTIBODY ([facility]) 2.1 MPL <20.0 (test code = 713) Anticardiolipin IgG Result Interpretation: <20.0 GPL Normal>/= 20.0 GPL PositiveAnticardiolipin IgM Result Interpretation: <20.0 MPL Normal>/= 20.0 MPL PositiveCALCIUM, [id number] 05:12:00 Test Item Value Reference Range Interpretation Comments CALCIUM IONIZED ([facility]) (test 1.01 mmol/L 1.12-1.27 L code = 698) PH, BLOOD ([facility]) (test code = 7.45 1810) POCT-GLUCOSE [id number] 21:30:00 Test Item Value Reference Range Interpretation Comments POC-GLUCOSE METER 116 mg/dL 70-110 H TESTED AT [place] [address] ([facility]) (test code = JOB Osei [facility] 1538) [address] POCT-GLUCOSE [id number] 17:32:00 Test Item Value Reference Range Interpretation Comments POC-GLUCOSE METER 125 mg/dL 70-110 H TESTED AT [place] [address] ([facility]) (test code = JOB Osei [facility] 1538) [address] POCT-GLUCOSE [id number] 11:28:00 Test Item Value Reference Range Interpretation Comments POC-GLUCOSE METER 115 mg/dL 70-110 H TESTED AT [place] [address] ([facility]) (test code = JOB Osei [facility] 1538) [address] POCT-GLUCOSE [id number] 07:41:00 Test Item Value Reference Range Interpretation Comments POC-GLUCOSE METER 108 mg/dL 70-110 TESTED AT [place] [address] ([facility]) (test code = JOB Osei [facility] 1538) [address] [id number] 07:06:00 Test Item Value Reference Range Interpretation Comments MAGNESIUM (BEAKER) 1.8 mg/dL 1.6-2.6 Specimen slightly (test code = 627) hemolyzed [id number] 07:06:00 Test Item Value Reference Range Interpretation Comments PHOSPHORUS (BEAKER) 2.4 mg/dL 2.3-4.7 Specimen slightly (test code = 604) hemolyzed COMPREHENSIVE METABOLIC [id number] 07:06:00 Test Item Value Reference Range Interpretation [...] APPLICABLE FOR DIALYSIS PATIEN TS. HEPATIC FUNCTION [id number] 07:06:00 Test Item Value Reference Range Interpretation [...] slightly (test code = 347) hemolyzed CALCIUM, [id number] 06:42:00 Test Item Value Reference Range Interpretation Comments CALCIUM IONIZED (BEAKER) (test 1.16 mmol/L 1.12-1.27 code = 698) PH, BLOOD (BEAKER) (test code = 7.42 1810) CBC W/PLT COUNT & AUTO [id number] 05:10:00 Test Item Value Reference Range Interpretation [...] PERCENT (BEAKER) (test code = 2801) POCT-GLUCOSE [id number] 23:12:00 Test Item Value Reference Range Interpretation Comments POC-GLUCOSE METER 95 mg/dL 70-110 TESTED AT [facility] 6720 ([facility] (test code = [place] [address] 1538) POCT-GLUCOSE [id number] 18:51:00 Test Item Value Reference Range Interpretation Comments POC-GLUCOSE METER 118 mg/dL 70-110 H TESTED AT [facility] 6720 (BEAKER) (test code = [facility] [place] 1538) [address] HEMOGLOBIN AND [id number] 16:28:00 Test Item Value Reference Range Interpretation Comments HEMOGLOBIN ([facility]) (test code = 8.7 GM/DL 11.2-15.7 L 410) HEMATOCRIT ([facility]) (test code = 27.8 % 34.1-44.9 L 411) POCT-GLUCOSE [id number] 15:00:00 Test Item Value Reference Range Interpretation Comments POC-GLUCOSE METER 140 mg/dL 70-110 H TESTED AT [place] [address] ([facility]) (test code = JOB Osei [facility] 1538) [address] POCT-GLUCOSE [id number] 14:46:00 Test Item Value Reference Range Interpretation Comments POC-GLUCOSE METER 44 mg/dL 70-110 L Notified R Dandre WALTER/TESTED AT ([facility]) (test code = [address] 15[address]) [facility] 7[address] POCT-GLUCOSE [id number] 13:05:00 Test Item Value Reference Range Interpretation Comments POC-GLUCOSE METER 87 mg/dL 70-110 TESTED AT [place] [address] ([facility]) (test code = JOB Osei [facility] [address] 1538) POCT-GLUCOSE [id number] 11:57:00 Test Item Value Reference Range Interpretation Comments POC-GLUCOSE METER 65 mg/dL 70-110 L Notified Sea Amos MD/TESTED AT ([facility]) (test code = [place] [address]) [facility] 7[address] 0 VANCOMYCIN LEVEL, [id number] 10:58:00 Test Item Value Reference Range Interpretation Comments VANCOMYCIN TROUGH ([facility]) (test 14.2 ug/mL 10.0-20.0 code = 522) RAD, ABDOMEN/KUB, 1 VIEW [id number] 09:41:00Reason for exam:->abdominal painFINAL REPORT AP abdomen, two images HISTORY: Abdominal pain COMPARISON: 07/28/2013 IMPRESSION:Grossly nonobstructive bowel gas pattern. Intact skeleton. Signed: Vikas Guillen MDReport Verified Date/Time: 07/30/2018 09:41:59 Reading Location: [facility] C0X [facility] ReadingRoom POCT-GLUCOSE [id number] 07:59:00 Test Item Value Reference Range Interpretation Comments POC-GLUCOSE METER 87 mg/dL 70-110 TESTED AT [facility] 6720 (BEAKER) (test code = [place] [address]) CALCIUM, [id number] 06:53:00 Test Item Value Reference Range Interpretation Comments CALCIUM IONIZED (BEAKER) (test 1.12 mmol/L 1.12-1.27 code = 698) PH, BLOOD (BEAKER) (test code = 7.44 1810) [id number] 06:38:00 Test Item Value Reference Range Interpretation Comments PHOSPHORUS (BEAKER) (test code = 2.7 mg/dL 2.3-4.7 604) [id number] 06:38:00 Test Item Value Reference Range Interpretation Comments MAGNESIUM (BEAKER) (test code = 1.6 mg/dL 1.6-2.6 627) HEPATIC FUNCTION [id number] 06:38:00 Test Item Value Reference Range Interpretation [...] = 9 U/L 6-55 347) COMPREHENSIVE METABOLIC [id number] 06:38:00 Test Item Value Reference Range Interpretation [...] PATIEN TS. CBC W/PLT COUNT & AUTO [id number] 06:11:00 Test Item Value Reference Range Interpretation [...] PERCENT (BEAKER) (test code = 2801) POCT-GLUCOSE [id number] 21:38:00 Test Item Value Reference Range Interpretation Comments POC-GLUCOSE METER 96 mg/dL 70-110 TESTED AT [place] [address] ([facility]) ([facility] [address] 1538) POCT-GLUCOSE [id number] 18:19:00 Test Item Value Reference Range Interpretation Comments POC-GLUCOSE METER 121 mg/dL 70-110 H TESTED AT [facility] 6720 ([facility]) (test code = [facility] 1538) [address] T4, [id number] 12:35:00 Test Item Value Reference Range Interpretation Comments FREE T4 ([facility]) (test code = 655) 1.25 ng/dL 0.70-1.48 POCT-GLUCOSE [id number] 12:27:00 Test Item Value Reference Range Interpretation Comments POC-GLUCOSE METER 127 mg/dL 70-110 H TESTED AT [facility] 6720 (BEAKER) (test code = [place] 1538) [address] TSH/FREE T4 IF [id number] 12:07:00 Test Item Value Reference Range Interpretation Comments THYROID STIMULATING HORMONE 0.25 uIU/mL 0.35-4.94 L (BEAKER) (test code = 772) [id number] 12:07:00 Test Item Value Reference Range Interpretation Comments THYROID STIMULATING HORMONE 0.25 uIU/mL 0.35-4.94 L (BEAKER) (test code = 772) LACTIC ACID, VENOUS, WHOLE [id number] 11:35:00 Test Item Value Reference Range Interpretation Comments LACTATE BLOOD VENOUS 0.6 mmol/L 0.5-2.2 Specime n slightly (2) (BEAKER) (test hemolyzed code = 3461) VANCOMYCIN LEVEL, [id number] 07:11:00 Test Item Value Reference Range Interpretation Comments VANCOMYCIN RANDOM (BEAKER) (test 17.9 ug/mL code = 523) Reference Range: No [id number] 07:09:00 Test Item Value Reference Range Interpretation Comments PHOSPHORUS (BEAKER) (test code = 3.9 mg/dL 2.3-4.7 604) [id number] 07:09:00 Test Item Value Reference Range Interpretation Comments MAGNESIUM (BEAKER) (test code = 1.7 mg/dL 1.6-2.6 627) BASIC METABOLIC [id number] 07:09:00 Test Item Value Reference Range Interpretation [...] APPLICABLE FOR DIALYSIS PATIEN TS. HEPATIC FUNCTION [id number] 07:09:00 Test Item Value Reference Range Interpretation [...] code = 10 U/L 6-55 347) TROPONIN [id number] 06:54:00 Test Item Value Reference Range Interpretation Comments TROPONIN I (BEAKER) (test code = 0.08 ng/mL 0.00-0.03 H 397) LACTIC ACID, VENOUS, WHOLE [id number] 06:45:00 Test Item Value Reference Range Interpretation Comments LACTATE BLOOD VENOUS 0.8 mmol/L 0.5-2.2 Specime n slightly (2) (BEAKER) (test hemolyzed code = 3210) CBC W/PLT COUNT & AUTO [id number] 06:00:00 Test Item Value Reference Range Interpretation [...] PERCENT (BEAKER) (test code = 2801) CALCIUM, [id number] 05:58:00 Test Item Value Reference Range Interpretation Comments CALCIUM IONIZED (BEAKER) (test 1.12 mmol/L 1.12-1.27 code = 698) PH, BLOOD (BEAKER) (test code = 7.39 1810) EOSINOPHIL SMEAR, [id number] 20:17:00 Test Item Value Reference Range Interpretation Comments EOSINOPHIL SMEAR, URINE (BEAKER) No EOS seen No EOS seen (test code = 1851) BASIC METABOLIC [id number] 20:01:00 Test Item Value Reference Range Interpretation [...] DIALYSIS PATIEN TS. LACTIC ACID, VENOUS, WHOLE [id number] 19:59:00 Test Item Value Reference Range Interpretation Comments LACTATE BLOOD VENOUS 0.8 mmol/L 0.5-2.2 Specime n slightly (2) (BEAKER) (test hemolyzed code = 2872) CT, BRAIN/STROKE [id number] 19:59:00Stroke Protocol. Phone/Page MD for reporting.Reason for [...] Fink Verified Date/Time: 07/28/2018 19:59:01 Reading Location: [facility] Radiology Reading Room [id number] 19:51:00 Test Item Value Reference Range Interpretation Comments PARTIAL THROMBOPLASTIN TIME 33.1 seconds 22.5-36.0 (BEAKER) (test code = 760) PROTHROMBIN [id number] 19:50:00 Test Item Value Reference Range Interpretation Comments PROTIME (BEAKER) (test code = 15.6 seconds 11.7-14.7 H 759) INR (BEAKER) (test code = 370) 1.2 <=5.9 RECOMMENDED COUMADIN/WARFARIN INR THERAPY RANGESSTANDARD DOSE: 2.0 - 3.0 Includes: PROPHYLAXIS forvenous thrombosis, systemic embolization; TREATMENT for venous thrombosis and/or pulmonary embolus.HIGH RISK: Target INR is 2.5-3.5 for patients with mechanical heart valves.HEMOGLOBIN AND [id number] 19:41:00 Test Item Value Reference Range Interpretation Comments HEMOGLOBIN (BEAKER) (test code = 11.3 GM/DL 11.2-15.7 410) HEMATOCRIT (BEAKER) (test code = 35.4 % 34.1-44.9 411) CBC W/PLT COUNT & AUTO [id number] 19:41:00 Test Item Value Reference Range Interpretation [...] PERCENT (BEAKER) (test code = 2801) TROPONIN [id number] 19:26:00 Test Item Value Reference Range Interpretation Comments TROPONIN I (BEAKER) (test code = 0.11 ng/mL 0.00-0.03 H 397) PROTEIN, RANDOM [id number] 19:19:00 Test Item Value Reference Range Interpretation Comments PROTEIN, URINE (BEAKER) (test code 325 mg/dL 0-14 H = 1569) POCT-GLUCOSE [id number] 19:00:00 Test Item Value Reference Range Interpretation Comments POC-GLUCOSE METER 158 mg/dL 70-110 H TESTED AT [facility] 6720 (BEAKER) (test code = [place] 1538) [address] CREATININE, RANDOM [id number] 18:52:00 Test Item Value Reference Range Interpretation Comments CREATININE URINE (BEAKER) (test 95.8 mg/dL code = 375) Reference Range: No NormalsSODIUM, RANDOM [id number] 18:52:00 Test Item Value Reference Range Interpretation Comments SODIUM URINE (BEAKER) (test code = 28 meq/L 243) Reference Range: No NormalsURINALYSIS W/ [id number] 18:02:00 Test Item Value Reference Range Interpretation [...] SOURCE(BEAKER) (test code Urine, Clean Catch = 7509) POCT-GLUCOSE [id number] 17:21:00 Test Item Value Reference Range Interpretation Comments POC-GLUCOSE METER 137 mg/dL 70-110 H TESTED AT [facility] 6720 (BEAKER) (test code = [place] 1538) [address] BASIC METABOLIC [id number] 17:14:00 Test Item Value Reference Range Interpretation [...] APPLICABLE FOR DIALYSIS PATIEN TS. Call results [id number] ACID, VENOUS, WHOLE [id number] 14:19:00 Test Item Value Reference Range Interpretation Comments LACTATE BLOOD VENOUS (2) (BEAKER) 1.1 mmol/L 0.5-2.2 (test code = 2872) THROMBIN [id number] 13:02:00 Test Item Value Reference Range Interpretation Comments THROMBIN TIME (BEAKER) (test code = 17.8 secs 13.8-20.0 550) [id number] 13:01:00 Test Item Value Reference Range Interpretation Comments PROCALCITONIN (BEAKER) (test code 0.09 ng/mL <0.05 H = 3036) SEPSIS RISK (ng/mL)Low: 0.05-0.50Intermediate: 0.51-2.00High: >=2.011:1 MIXING STUDY, [id number] 12:38:00 Test Item Value Reference Range Interpretation Comments PROTIME (BEAKER) (test code = 15.0 seconds 11.7-14.7 H 759) PARTIAL THROMBOPLASTIN TIME 36.1 seconds 22.5-36.0 H (BEAKER) (test code = 760) PT 1/1 MIX (BEAKER) (test code = 14.4 SECS 11.7-14.7 1595) PTT 1/1 MIX (BEAKER) (test code 35.5 SECS 22.5-36.0 = 1596) TROPONIN [id number] 12:01:00 Test Item Value Reference Range Interpretation Comments TROPONIN I (BEAKER) (test code = 0.13 ng/mL 0.00-0.03 H 397) HCG, QUANTITATIVE, [id number] 11:58:00 Test Item Value Reference Range Interpretation Comments GONADOTROPIN, CHORIONIC (HCG) QUANT < mIU/mL 0-10 (BEAKER) (test code = 649) Non- Females: <10 mIU/mL Females: Gestation Age Reference Range(mIU/mL) 0.2-1 Week 5-50 1-2 Weeks 50-500 2-3 Weeks 100-5,000 3-4Weeks 500-10,000 4-5 Weeks 1,000-50,000 5-6 Weeks 10,000-100,000 6-8 Weeks 15,000-200,000 2-3 Months 10,000-100,[id number] 11:55:00 Test Item Value Reference Range Interpretation Comments LIPASE (BEAKER) (test code = 749) 31 U/L 8-78 [id number] 11:55:00 Test Item Value Reference Range Interpretation Comments AMYLASE (BEAKER) (test code = 349) 101 U/L 25-125 COMPREHENSIVE METABOLIC [id number] 11:55:00 Test Item Value Reference Range Interpretation [...] NOT APPLICABLE FOR DIALYSIS PATIEN TS. C-REACTIVE [id number] 11:55:00 Test Item Value Reference Range Interpretation Comments C-REACTIVE PROTEIN (BEAKER) (test 0.42 mg/dL 0.00-0.50 code = 676) LACTIC ACID, VENOUS, WHOLE [id number] 11:51:00 Test Item Value Reference Range Interpretation Comments LACTATE BLOOD VENOUS 1.5 mmol/L 0.5-2.2 Specime n slightly (2) (BEAKER) (test hemolyzed code = 0175) [id number] 11:44:00 Test Item Value Reference Range Interpretation Comments PARTIAL THROMBOPLASTIN TIME 35.4 seconds 22.5-36.0 (BEAKER) (test code = 760) CBC W/PLT COUNT & AUTO [id number] 11:30:00 Test Item Value Reference Range Interpretation [...] PERCENT (BEAKER) (test code = 2801) POCT-GLUCOSE [id number] 11:20:00 Test Item Value Reference Range Interpretation Comments POC-GLUCOSE METER 167 mg/dL 70-110 H TESTED AT [facility] 6720 (AMINAH) (test code = [place] 5151) [address] HEMOGLOBIN [id number] 11:15:00 Test Item Value Reference Range Interpretation Comments HEMOGLOBIN A1C (AMINAH) (test code = 5.6 % 4.3-6.1 368) PROTHROMBIN [id number] 08:24:00 Test Item Value Reference Range Interpretation Comments PROTIME (AMINAH) (test code = 15.3 seconds 11.7-14.7 H 759) INR (AMINAH) (test code = 370) 1.2 <=5.9 RECOMMENDED COUMADIN/WARFARIN INR THERAPY RANGESSTANDARD DOSE: 2.0 - 3.0 Includes: PROPHYLAXIS forvenous thrombosis, systemic embolization; TREATMENT for venous thrombosis and/or pulmonary embolus.HIGH RISK: Target INR is 2.5-3.5 for patients with mechanical heart valves.RAD, ABDOMEN/KUB, 1 VIEW [id number] 08:13:00Reason for exam:->abdominal painFINAL REPORT INDICATION:Abdominal pain. [...] hip MRI is recommended. Signed: Lionel Ruiz [facility] Verified Date/Time: 07/28 08:13:33 Reading Location: [facility] C0X Ortho Consult Reading Room ONIN [id number] 08:11:00 Test Item Value Reference Range Interpretation Comments TROPONIN I (AMINAH) (test code = 0.05 ng/mL 0.00-0.03 H 397) RAD, CHEST, 1 VIEW, NON [id number] 08:10:00Reason for exam:->chest painShould this be performed at the bedside?->YesFINAL REPORT RAD, CHEST, 1 VIEW, NON DEPT INDICATION: chest pain COMPARISON: Prior day's exam FINDINGS: Portable frontal view of the chest. IMPRESSION: Support Lines: None. Lungs and pleura: Clear lungs. No effusion. No pneumothorax.Heart and mediastinum: Unremarkable contours.Additional findings: None. Signed: JR Maya Robert MDReport Verified Date/Time: 07/28/2018 08:10:51 Reading Location: [facility] Radiology Reading Room BASIC METABOLIC [id number] 08:08:00 Test Item Value Reference Range Interpretation [...] S NOT APPLICABLE FOR DIALYSIS PATIEN TS. [id number] 08:04:00 Test Item Value Reference Range Interpretation Comments LIPASE (BEAKER) (test code = 749) 12 U/L 8-78 HEPATIC FUNCTION [id number] 08:04:00 Test Item Value Reference Range Interpretation [...] (test code = 347) hemolyzed COMPLEMENT COMPONENT [id number] 08:03:00 Test Item Value Reference Range Interpretation Comments C4 COMPLEMENT (BEAKER) (test code = 25 mg/dL 15-57 394) COMPLEMENT COMPONENT [id number] 08:03:00 Test Item Value Reference Range Interpretation Comments C3 COMPLEMENT (BEAKER) (test code = 125 mg/dL 82-193 393) POCT-BLOOD GASES, [id number] 07:57:00 Test Item Value Reference Range Interpretation Comments TEMP, CELSIUS-POC 37.0 (BEAKER) (test code = 1834) FIO2-POC (BEAKER) TESTED AT [facility] 6720 (test code = 1835) [place] [address] PH, ARTERIAL-POC 7.416 7.350-7.450 (BEAKER) (test code [...] L ARTERIAL-POC (BEAKER) (test code = 1841) [id number] 07:57:00 Test Item Value Reference Range Interpretation Comments POC-SODIUM (BEAKER) 146 meq/L 135-148 TESTED A T [place] [address] (test code = 1542) [place] Grimes [facility] [address] [id number] 07:57:00 Test Item Value Reference Range Interpretation Comments POC-POTASSIUM 2.7 meq/L 3.6-5.5 L TESTED AT [place] [address] ([facility]) ([facility] [address] = 1540) [id number] 07:57:00 Test Item Value Reference Range Interpretation Comments POC-GLUCOSE ([facility]) 176 mg/dL 70-110 H TESTED AT [place] [address] (test code = 1855) [place] Grimes [facility] [address] POCT-CALCIUM [id number] 07:57:00 Test Item Value Reference Range Interpretation Comments POC-CALCIUM IONIZED 1.15 mmol/L 1.12-1.27 TESTED A [place] [address] ([facility]) (test code = [facility] [place] [facility] 1536) [address] [id number] 07:57:00 Test Item Value Reference Range Interpretation Comments POC-HEMATOCRIT 38 % 36-45 TESTED AT [place] [address] ([facility]) (test code = [facility] [place] [facility] [address]) [id number] 07:57:00 Test Item Value Reference Range Interpretation Comments POC-HEMOGLOBIN 12.9 g/dL 12.0-15.0 TESTED AT [place] [address] ([facility]) (test code [facility] = 1856) [id number] AT [place] [address] [place] [facility] [address] POCT-LACTIC ACID, [id number] 07:57:00 Test Item Value Reference Range Interpretation Comments POC-LACTIC ACID, 3.3 mmol/L 0.9-1.7 H TESTED AT [place] [address] [place] ([facility]) ([facility] code = 2802) [address] CBC W/PLT COUNT & AUTO [id number] 07:47:00 Test Item Value Reference Range Interpretation Comments WHITE BLOOD CELL COUNT ([facility]) 9.6 K/ L 3.5-10.5 (test code = 775) RED BLOOD CELL COUNT ([facility]) 4.78 M/ L 3.93-5.22 (test code = [...]
[2021-04-27 04:08] LABS: Protime INR 1.09
[2021-04-27] MEDS ORDERED: PROMETHAZINE INJ 25 MG/ML AMP ONE (04:09)
[2021-04-27] MEDS ORDERED: FENTANYL CITR 100 MCG/2 ML ONE (04:10)
[2021-04-27 04:21] LABS: Absolute Lymphocytes (CBC) 1.1 K/uL (0.7-4.9); Basophils % 0.7 % (0-1.3); Hematocrit 43.6 % (36.0-45.0); Lymphocytes % 27.4 % (15.3-44.8); MPV 7.3 fL (7.6-11.3); RBC Red Blood Cell Count 5.39 M/uL (3.86-4.86)
[2021-04-27] MEDS ORDERED: cloNIDine HCL 0.1 MG TAB ONE (04:24)
[2021-04-27 04:30] LABS: Bilirubin Direct 0.1 mg/dL (0-0.2); Bilirubin Total 0.3 mg/dL (0.2-1.0); Potassium 3.5 mmol/L (3.5-5.1)
[2021-04-27 04:31] LABS: Albumin 3.7 g/dL (3.4-5.0); Magnesium 1.9 mg/dL (1.8-2.4); Troponin (Emerg Dept Use Only) 0.02 ng/mL (0.0-0.045)
[2021-04-27] MEDS ORDERED: HYDROMORPHONE HCL 2 MG/ML inj ONE (05:48)
[2021-04-27] MEDS ORDERED: LABETALOL 20 MG/4ML SYRINGE IV ONE (05:48)
--- NOTE | 2021-04-27 05:53 | EDPHYS ---
Physician Documentation [facility] Name: Babs Younger Age: 50 yrs Sex: Female : 1970 Arrival Date: 04/27/2021 Time: 02:55 Bed 16 Private MD: ED Physician Brent Brothers HPI: 04/27 03:10 This 50 yrs old Black Female presents to ER via EMS with complaints of High Blood mh7 Pressure. 03:10 The patient has elevated blood pressure and discovered this at home, with a home mh7 device. Onset: The symptoms/episode began/occurred yesterday. Modifying factors: The symptoms are aggravated by activity, The symptoms are alleviated by nothing. Associated signs and symptoms: Pertinent negatives: chest pain, dizziness, dyspnea, headache, lightheadedness, nausea, visual changes, vomiting, weakness. Severity of symptoms: At its worst the blood pressure was severe, last night, in the emergency department the blood pressure is improved, mildly. The patient has experienced similar episodes in the past, multiple times. The patient has been recently been admitted at [facility], was discharged earlier this week. 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 LMP N/A - Hysterectomy bs2 Historical: - Allergies: 02:57 Morphine; em 02:57 SHELLFISH; em - Home Meds: 03:19 Ambien 5 mg Oral tab 1 tab qhs prn [Active]; amlodipine 10 mg tab 1 tab once daily bs2 [Active]; CellCept 500 mg Oral tab 2 tabs 2 times per day [Active]; clonidine HCl 0.3 mg Oral tab 1 tab three times a day [Active]; doxazosin 4 mg Oral tab 1 tab once daily [Active]; furosemide 80 mg Oral tab 1 tab 2 times per day [Active]; gabapentin 400 mg Oral cap 1 cap as needed [Active]; Humulin 70/30 100 unit/mL (70-30) Sub-Q susp 60 units in am and 40 units at night [Active]; hydralazine 50 mg Oral tab 1 tab three times a day [Active]; metoprolol tartrate 100 mg Oral tab 1 tab 2 times per day [Active]; Plaquenil 200 mg Oral tab 1 tab once daily [Active]; - PMHx: 02:57 Diabetes - IDDM; ESRD; bowel obstruction; Renal Disease; Lupus; Hypertension; Seizures; em - Immunization history:: Client reports receiving the 2nd dose of the Covid vaccine. - Social history:: Smoking status: Patient denies any tobacco usage or history of. ROS: 03:10 Constitutional: Negative for fever, chills, and weight loss, Eyes: Negative for injury, mh7 pain, redness, and discharge, ENT: Negative for injury, pain, and discharge, Neck: Negative for injury, pain, and swelling, Cardiovascular: Negative for chest pain, palpitations, and edema, Respiratory: Negative for shortness of breath, cough, wheezing, and pleuritic chest pain, Abdomen/GI: Negative for abdominal pain, nausea, vomiting, diarrhea, and constipation, Back: Negative for injury and pain, : Negative for injury, bleeding, discharge, and swelling, MS/Extremity: Negative for injury and deformity, Skin: Negative for injury, rash, and discoloration, Neuro: Negative for headache, weakness, numbness, tingling, and seizure, Psych: Negative for depression, anxiety, suicide ideation, homicidal ideation, and hallucinations, Allergy/Immunology: Negative for hives, rash, and allergies, Endocrine: Negative for neck swelling, polydipsia, polyuria, polyphagia, and marked weight changes, Hematologic/Lymphatic: Negative for swollen nodes, abnormal bleeding, and unusual bruising. Exam: 03:10 Constitutional: This is a well developed, well nourished patient who is awake, alert, mh7 and in no acute distress. Head/Face: Normocephalic, atraumatic. Eyes: Pupils equal round and reactive to light, extra-ocular motions intact. Lids and lashes normal. Conjunctiva and sclera are non-icteric and not injected. Cornea within normal limits. Periorbital areas with no swelling, redness, or edema. Neck: Trachea midline, no thyromegaly or masses palpated, and no cervical lymphadenopathy. Supple, full range of motion without nuchal rigidity, or vertebral point tenderness. No Meningismus. Chest/axilla: Normal chest wall appearance and motion. Nontender with no deformity. No lesions are appreciated. Cardiovascular: Regular rate and rhythm with a normal S1 and S2. No gallops, murmurs, or rubs. Normal PMI, no JVD. No pulse deficits. Respiratory: Lungs have equal breath sounds bilaterally, clear to auscultation and percussion. No rales, rhonchi or wheezes noted. No increased work of breathing, no retractions or nasal flaring. Abdomen/GI: Soft, non-tender, with normal bowel sounds. No distension or tympany. No guarding or rebound. No evidence of tenderness throughout. Back: No spinal tenderness. No costovertebral tenderness. Full range of motion. Skin: Warm, dry with normal turgor. Normal color with no rashes, no lesions, and no evidence of cellulitis. MS/ Extremity: Pulses equal, no cyanosis. Neurovascular intact. Full, normal range of motion. Neuro: Awake and alert, GCS 15, oriented to person, place, time, and situation. Cranial nerves II-XII grossly intact. Motor strength 5/5 in all extremities. Sensory grossly intact. Cerebellar exam normal. Normal gait. Psych: Awake, alert, with orientation to person, place and time. Behavior, mood, and affect are within normal limits. Vital Signs: 03:10 BP 206 / 101 LA Supine (auto/lg); Pulse 78 MON; Resp 16 S; Temp 98.0(O); Pulse Ox 100% bs2 on R/A; Weight 87.09 kg; Height 5 ft. 2 in. (157.48 cm); Pain 9/10; 03:30 BP 181 / 96; Pulse 73; Resp 16; Pulse Ox 100% ; bs2 04:00 BP 160 / 97; Pulse 78; Resp 16; Pulse Ox 100% ; bs2 04:30 BP 193 / 102; Pulse 68; Resp 16; Pulse Ox 100% ; bs2 05:00 BP 211 / 113; Pulse 63; Resp 16; Pulse Ox 100% ; bs2 05:30 BP 162 / 98; Pulse 85; Resp 17; Pulse Ox 100% ; bs2 06:00 BP 181 / 103; Pulse 85; Resp 16; Pulse Ox 100% ; bs2 06:30 BP 157 / 67; Pulse 85; Resp 16; Temp 98.6; Pulse Ox 100% ; Pain 3/10; bs2 03:10 Body Mass Index 35.12 (87.09 kg, 157.48 cm) bs2 MDM: 05:47 Differential diagnosis: hypertensive crisis, Malignant HTN, Chronic Pain, Lupus, mh7 Hypertension. 05:50 Data reviewed: vital signs, nurses notes, EMS record, old medical records, lab test [facility] result(s), cardiac enzymes, CBC, electrolytes, EKG, radiologic studies, plain films. Data interpreted: Pulse oximetry: on room air is 100 %. Interpretation: normal. Counseling: I had a detailed discussion with the patient and/or guardian regarding: the historical points, exam findings, and any diagnostic results supporting the discharge/admit diagnosis, the presence of at least one elevated blood pressure reading (>120/80) during this emergency department visit, lab results, radiology results. Response to treatment: the patient's symptoms have markedly improved after treatment. 05:52 Patient medically screened. [facility] 06:52 ED course: Well-appearing, no acute distress, vital signs stable, no focal neurological [facility] deficits. Patient stated that she feels better requested to be discharged.. 04/27 03:20 Order name: Basic Metabolic Panel [facility] 04/27 03:20 Order name: CBC with Diff [facility] 04/27 03:20 Order name: LFT's [facility] 04/27 03:20 Order name: Magnesium; Complete Time: 04:40 [facility] 04/27 03:20 Order name: NT PRO-BNP; Complete Time: 04:40 7 04/27 03:20 Order name: PT-INR; Complete Time: 04:40 [facility] 04/27 03:20 Order name: Troponin (emerg Dept Use Only); Complete Time: 04:40 7 04/27 03:20 Order name: XRAY Chest (1 view) [facility] 04/27 03:20 Order name: Basic Metabolic Panel; Complete Time: 04:40 EDMS 04/27 03:20 Order name: CBC with Automated Diff; Complete Time: 04:40 EDMD 04/27 03:20 Order name: Liver (Hepatic) Function; Complete Time: 04:40 EDMS 04/27 03:20 Order name: EKG; Complete Time: 03:21 7 04/27 03:20 Order name: Cardiac monitoring; Complete Time: 03:26 [facility] 04/27 03:20 Order name: EKG - Nurse/Tech; Complete Time: 03:41 7 04/27 03:20 Order name: IV Saline Lock; Complete Time: 03:41 7 04/27 03:20 Order name: Labs collected and sent; Complete Time: 03:41 [facility] 04/27 03:20 Order name: O2 Per Protocol; Complete Time: 03:26 mh7 04/27 03:20 Order name: O2 Sat Monitoring; Complete Time: 03: 7 Administered Medications: 04:00 Drug: fentaNYL (PF) 50 mcg Route: IVP; Site: right forearm; bs2 06:39 Follow up: Response: No adverse reaction bs2 04:00 Drug: Phenergan (promethazine) 12.5 mg Route: IVP; Site: right forearm; bs2 06:39 Follow up: Response: No adverse reaction bs2 04:03 Drug: cloNIDine 0.1 mg Route: PO; bs2 06:39 Follow up: Response: No adverse reaction bs2 05:30 Drug: labetaloL 10 mg Route: IV; Rate: per protocol; Site: right antecubital; bs2 05:30 Drug: Dilaudid (HYDROmorphone) 1 mg Route: IVP; Site: right antecubital; bs2 06:40 Follow up: Response: No adverse reaction bs2 06:38 Drug: labetaloL 10 mg Route: IV; Rate: per protocol; Site: right antecubital; bs2 06:40 Follow up: Response: No adverse reaction; Blood pressure is lowered; IV Status: bs2 Completed infusion Disposition Summary: 04/27/21 05:52 Discharge Ordered Location: Home [facility] Problem: chronic [facility] Symptoms: have improved [facility] Condition: Stable [facility] Diagnosis - Chronic kidney disease, unspecified mh7 - Essential (primary) hypertension mh7 - Systemic lupus erythematosus, unspecified mh7 - Other chronic pain [facility] Followup: [facility] - With: Private Physician - When: 1 - 2 days - Reason: Worsening of condition, Recheck today's complaints, Continuance of care, Re-evaluation by your physician Discharge Instructions: - Discharge Summary Sheet mh7 - Chronic Pain, Adult mh7 - Systemic Lupus Erythematosus, Adult mh7 - Hypertension, Adult, Ewjn-pz-Hwyl mh7 - Chronic Kidney Disease, Adult, Hmru-ff-Pyxi [facility] Forms: - Medication Reconciliation Form 7 - Thank You Letter 7 - Antibiotic Education 7 - Prescription Opioid Use [facility] Signatures: Dispatcher [employer] Noel Chaudhari RN Brent Patel MD MD 7 Francia Kramer RN RN bs2 Corrections: (The following items were deleted from the chart) 03:21 03:19 Home Meds: [place] 10-325 mg Oral tab 1 tab QID PRN; bs2 bs2
--- NOTE | 2021-04-27 05:53 | ER ---
Nurse's Notes [facility] Juan Manuel Name: Babs Younger Age: 50 yrs Sex: Female : 1970 Arrival Date: 04/27/2021 Time: 02:55 Bed 16 Private MD: Diagnosis: Chronic kidney disease, unspecified;Essential (primary) hypertension;Systemic lupus erythematosus, unspecified;Other chronic pain Presentation: 04/27 02:56 Chief complaint: EMS states: pt was having pain, hx of lupus, on scene BP was 210/110, em denies chest pain, feet and hands are burning. Onset of symptoms was April 27, 2021. 02:56 Method Of Arrival: EMS: [facility] em 02:56 Acuity: ELVA 3 em 03:10 Coronavirus screen: At this time, the client does not indicate any symptoms associated bs2 with coronavirus-19. Ebola Screen: No symptoms or risks identified at this time. Initial Sepsis Screen: Does the patient meet any 2 criteria? No. Patient's initial sepsis screen is negative. Does the patient have a suspected source of infection? No. Patient's initial sepsis screen is negative. Risk Assessment: Do you want to hurt yourself or someone else? Patient reports no desire to harm self or others. 03:10 Acuity: ELVA 3 bs2 Triage Assessment: 03:10 General: Appears in no apparent distress. uncomfortable, obese, well groomed, well bs2 developed, well nourished, Behavior is calm, cooperative, appropriate for age. Pain: Complains of pain in all over joints Pain currently is 9 out of 10 on a pain scale. EENT: No signs and/or symptoms were reported regarding the EENT system. Neuro: No deficits noted. Cardiovascular: No deficits noted. Reports lightheadedness, palpitations. Respiratory: No deficits noted. GI: No signs and/or symptoms were reported involving the gastrointestinal system. : No signs and/or symptoms were reported regarding the genitourinary system. Derm: No signs and/or symptoms reported regarding the dermatologic system. Musculoskeletal: No signs and/or symptoms reported regarding the musculoskeletal system. 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 LMP N/A - Hysterectomy bs2 Historical: - Allergies: 02:57 Morphine; em 02:57 SHELLFISH; em - Home Meds: 03:19 Ambien 5 mg Oral tab 1 tab qhs prn [Active]; amlodipine 10 mg tab 1 tab once daily bs2 [Active]; CellCept 500 mg Oral tab 2 tabs 2 times per day [Active]; clonidine HCl 0.3 mg Oral tab 1 tab three times a day [Active]; doxazosin 4 mg Oral tab 1 tab once daily [Active]; furosemide 80 mg Oral tab 1 tab 2 times per day [Active]; gabapentin 400 mg Oral cap 1 cap as needed [Active]; Humulin 70/30 100 unit/mL (70-30) Sub-Q susp 60 units in am and 40 units at night [Active]; hydralazine 50 mg Oral tab 1 tab three times a day [Active]; metoprolol tartrate 100 mg Oral tab 1 tab 2 times per day [Active]; Plaquenil 200 mg Oral tab 1 tab once daily [Active]; - PMHx: 02:57 Diabetes - IDDM; ESRD; bowel obstruction; Renal Disease; Lupus; Hypertension; Seizures; em - Immunization history:: Client reports receiving the 2nd dose of the Covid vaccine. - Social history:: Smoking status: Patient denies any tobacco usage or history of. Screenin:14 Abuse screen: Denies threats or abuse. Denies injuries from another. Nutritional bs2 screening: No deficits noted. Tuberculosis screening: No symptoms or risk factors identified. Fall Risk None identified. No fall in past 12 months (0 pts). Assessment: 03:14 General: Appears in no apparent distress. uncomfortable, obese, well groomed, well bs2 developed, well nourished, Behavior is calm, cooperative, appropriate for age. Pain: Complains of pain in body aches and joints Pain currently is 9 out of 10 on a pain scale. Neuro: No deficits noted. Cardiovascular: Reports lightheadedness, palpitations, Denies chest pain. Respiratory: No deficits noted. GI: No signs and/or symptoms were reported involving the gastrointestinal system. : No signs and/or symptoms were reported regarding the genitourinary system. EENT: No signs and/or symptoms were reported regarding the EENT system. Derm: No signs and/or symptoms reported regarding the dermatologic system. Musculoskeletal: No signs and/or symptoms reported regarding the musculoskeletal system. Vital Signs: 03:10 BP 206 / 101 LA Supine (auto/lg); Pulse 78 MON; Resp 16 S; Temp 98.0(O); Pulse Ox 100% bs2 on R/A; Weight 87.09 kg; Height 5 ft. 2 in. (157.48 cm); Pain 9/10; 03:30 BP 181 / 96; Pulse 73; Resp 16; Pulse Ox 100% ; bs2 04:00 BP 160 / 97; Pulse 78; Resp 16; Pulse Ox 100% ; bs2 04:30 BP 193 / 102; Pulse 68; Resp 16; Pulse Ox 100% ; bs2 05:00 BP 211 / 113; Pulse 63; Resp 16; Pulse Ox 100% ; bs2 05:30 BP 162 / 98; Pulse 85; Resp 17; Pulse Ox 100% ; bs2 06:00 BP 181 / 103; Pulse 85; Resp 16; Pulse Ox 100% ; bs2 06:30 BP 157 / 67; Pulse 85; Resp 16; Temp 98.6; Pulse Ox 100% ; Pain 3/10; bs2 03:10 Body Mass Index 35.12 (87.09 kg, 157.48 cm) bs2 ED Course: 02:55 Patient arrived in ED. em 02:57 Triage completed. em 02:57 Arm band placed on. em 03:01 Brent Brothers MD is Attending Physician. [facility] 03:10 Francia Kramer, LUIS is Primary Nurse. bs2 03:14 Patient has correct armband on for positive identification. Placed in gown. Bed in low bs2 position. Call light in reach. Side rails up X 1. telemetry monitor on. Pulse ox on. NIBP on. Door closed. Lights dimmed. Warm blanket given. 03:57 XRAY Chest (1 view) In Process Unspecified. EDMS 06:40 Basic Metabolic Panel Sent. bs2 06:40 CBC with Diff Sent. bs2 06:41 LFT's Sent. bs2 06:41 No provider procedures requiring assistance completed. IV discontinued, intact, bs2 bleeding controlled, No redness/swelling at site. Administered Medications: 04:00 Drug: fentaNYL (PF) 50 mcg Route: IVP; Site: right forearm; bs2 06:39 Follow up: Response: No adverse reaction bs2 04:00 Drug: Phenergan (promethazine) 12.5 mg Route: IVP; Site: right forearm; bs2 06:39 Follow up: Response: No adverse reaction bs2 04:03 Drug: cloNIDine 0.1 mg Route: PO; bs2 06:39 Follow up: Response: No adverse reaction bs2 05:30 Drug: labetaloL 10 mg Route: IV; Rate: per protocol; Site: right antecubital; bs2 05:30 Drug: Dilaudid (HYDROmorphone) 1 mg Route: IVP; Site: right antecubital; bs2 06:40 Follow up: Response: No adverse reaction bs2 06:38 Drug: labetaloL 10 mg Route: IV; Rate: per protocol; Site: right antecubital; bs2 06:40 Follow up: Response: No adverse reaction; Blood pressure is lowered; IV Status: bs2 Completed infusion Outcome: 05:52 Discharge ordered by . Phuong 06:48 Discharged to home ambulatory, with family. bs2 06:48 Condition: improved 06:48 Discharge instructions given to patient, Instructed on discharge instructions, follow up and referral plans. Demonstrated understanding of instructions, follow-up care. 06:49 Patient left the ED. bs2 Signatures: Dispatcher [employer] Noel Chaudhari, RN RN Brent Crespo MD MD Francia Marshall RN RN bs2 Corrections: (The following items were deleted from the chart) 03:21 03:19 Home Meds: [place] 10-325 mg Oral tab 1 tab QID PRN; bs2 bs2
[2021-04-27 07:06] VITALS: O2SAT 100
[2021-04-27 07:19] VITALS: BP 157/67; TEMP 98.6
--- NOTE | 2021-04-27 12:40 | RAD REPORT ---
EXAM DESCRIPTION: RAD - Chest Single View - 04/27/2021 3:57 am CLINICAL HISTORY: Hypertensive TECHNIQUE: Frontal view of the chest. COMPARISON: No relevant prior studies available. FINDINGS: Lungs: No consolidation. No pulmonary edema. Pleural space: No pneumothorax. No pleural effusion. Heart: Stable enlarged cardiac shadow. Mediastinum: No abnormality noted. Bones/joints: No osseous destruction or sclerosis noted. IMPRESSION: No acute findings in the chest. Electronically signed by: Lizbeth Reina MD 04/27/2021 5:11 AM CDT Due to temporary technical issues with the PACS/Fluency reporting system, reports are being signed by the in house radiologist without review as a courtesy to ensure prompt reporting. The interpreting r adiologist is fully responsible for the content of the report.
== END 2021-04-27 06:49 | disposition home or self-care (01) ==
LOC: ER 02:48
DX: I12.0 Hypertensive chronic kidney disease with stage 5 chronic kidney disease or end stage renal disease (principal); L93.0 Discoid lupus erythematosus; G89.29 Other chronic pain; E11.22 Type 2 diabetes mellitus with diabetic chronic kidney disease; N18.6 End stage renal disease; Z99.2 Dependence on renal dialysis; Z79.4 Long term (current) use of insulin; Z88.5 Allergy status to narcotic agent; Z91.013 Allergy to seafood
CPT/HCPCS: 93005; 85025; 80048; 36415; 83735; 85610; 80076; 84484; 83880; 71045; 99284; J2550; J1170; J3010

== ENCOUNTER 2021-11-19 04:03 | Observation (INO) | payer OTHER ==
--- OUTSIDE RECORDS SUMMARY | 2021-11-19 04:10 | XMS REPORT | Continuity of Care Document ---
:1970 Author Organization [facility] t Address [address] [place] [address] Care Team Providers Name Role Phone Dorota Espinoza DO Primary Care Physician Joao WALTER, S Attending Clinician Flower LUONG S Attending Clinician Tess GRAF Attending Clinician Unavailable Mayela WALTER T Attending Clinician Jonnathan PEDRO Attending Clinician Unavailable Jonnathan PEDRO Attending Clinician Unavailable Doctor Unassigned, Name Attending Clinician Unavailable CAROLYN LI Attending Clinician Unavailable CAROLYN LI Admitting Clinician Unavailable Payers Payer Name Policy Type Policy Number Effective Date Expiration Date S tonnyce MEDICAID OF [place] [id number] 2014 00:00:00 [facility] [id number] 2017 DUAL COMPLETE 00:00:00 Problems Condition Condition Condition Status Onset Resolution Last Treating Co mments Source Name Details Category Date Date Treatment Clinician Date Hypertensi Hypertensi Disease Active 2020-0 M ethodi ve ve [facility] emergency emergency 00:00: [facility] l Attention Attention Disease Active 2018-08 [facility] to to 10-25 [facility] ileostomy ileostomy 00:00: [facility] 00 l Type 2 Type 2 Disease Active 2018-08 [facility] diabetes diabetes 09-01 st mellitus mellitus 00:00: Hospit a 00 l CKD CKD Disease Active 2018-08 [facility] (chronic (chronic 09-01 st kidney kidney 00:00: Hospita disease) disease) 00 l stage 4, stage 4, GFR 15-29 GFR 15-29 ml/min ml/min HTN HTN Disease Active 2018-08 [facility] (hypertens (hypertens 09-01 st ion) ion) 00:00: Hospita 00 l SLE SLE Disease Active 2018-08 [facility] (systemic (systemic 09-01 lupus lupus 00:00: Hospita erythemato erythemato 00 l al al related related syndrome) syndrome) Rheumatoid Rheumatoid Disease Active 2018-08 M ethodi arthritis arthritis 09-01 st 00:00: Hospita 00 l Attention Attention Disease Active 2018-08 [facility] to to 09-01 st colostomy colostomy 00:00: [facility] 00 l History of History of Disease Active 2018-08 M ethodi ischemic ischemic 0-17 st colitis colitis 00:00: Hospita 00 l Abdominal Abdominal Disease Active 2017-[address] [facility] pain pain 09-27 [facility] 00:[facility]: [facility] 00 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 [facility] lupus lupus [facility] erythemato erythemato 00:00: Me dical al al 00 Center Essential Essential Disease Active 2017-[address] [facility] hypertensi hypertensi 30 Gilda kes - on on 00:00: Medical 00 Melbeta Type 2 Type 2 Disease Active 2017-[address] [facility] diabetes diabetes 09-27 [facility] - mellitus mellitus 00:00: Medica l with with 00 Center kidney kidney complicati complicati on, with on, with long-term long-term current current use of use of insulin insulin Colostomy Colostomy Disease Active 2017-[address] [facility] complicati complicati 09-27 [facility] - on on 00:00: Medical 00 Melbeta bright red bright red Disease Active 2017-[address] blood in blood in 09-27 [facility] - colostomy colostomy 00:00: Medi valentin 00 Center HTN HTN Disease Active 2017-[address] [facility] (hypertens (hypertens -30 Gilda kes - ion), ion), 00:00: Medical malignant malignant 00 Cent er Lupus Lupus Disease Active 2017-[address] nephritis nephritis 09-27 [facility] - 00:[facility]: Medical Center DAE (acute DAE (acute Disease Active 2017-[address] kidney kidney 30 [facility] - injury) injury) 00:00: Medical 00 Center Hypernatre Hypernatre Disease Active 2017-[address] charisse charisse 09-27 [facility] - 00:00: Center Hypokalemi Hypokalemi Disease Active 2017-[address] a a 09-27 [facility] - 00:[facility]: [facility] Bowel Bowel Disease Active Univers obstructio obstructio 3-20 it y of n n 00:00: Medical Branch Colonic Colonic Disease Active Univers obstructio obstructio 3-19 it y of n n 00:00: [place] [facility] Colostomy Colostomy Disease Active Met h[facility] in place in place 02-23 st 00:00: Hospita 00 l Seizure Seizure Disease Active Univers 9-21 ity of 00:00: [place] [facility] Obesity Obesity Disease Active Univers (BMI (BMI 9-20 ity of 30-39.9) 30-39.9) 00:00: [place] [facility] Pulmonary Pulmonary Disease Active Uni vers edema edema 8-28 ity of 00:00: [place] [facility] Systemic Systemic Disease Active Unive rs lupus lupus 2-23 ity of erythemato erythemato [place] [facility] Depression Depression Disease Active U nivers , major , major 2-18 ity of 00:00: [place] [facility] DAE (acute DAE (acute Disease Active U nivers kidney kidney 2-12 ity of injury) injury) 00:00: [place] [facility] HTN HTN Disease Active Univers (hypertens (hypertens 2-12 it y of ion) ion) 00:00: [place] [facility] Lupus Lupus Disease Active Univers nephritis nephritis 2-11 ity of 00:00: [place] [facility] Allergies, Adverse Reactions, Alerts Allergy Allergy Status Severity Reaction(s) Onset Inactive Treating Comm ents Source Name Type Date Date Clinician Anjali Downey Active 2018-[address] [facility] [address] [facility] ty to 09-27 [facility] - Containi adverse 00:00: Medical ng reaction 00 Center Products s SHELLFIS Allergy Active 2017-[address] [facility] H 30 [facility] - CONTAINI 00:00: Medical NG 00 Center PRODUCTS SHRIMP DRUG Active High Dizziness Univers INGREDI 05-17 ity of 00:00: [place] 00 Medical Branch Shrimp Propensi Active Dizziness nausea, Univ ers ty to 05-17 headache, ity of adverse 00:00: weakness [place] reaction 00 Medical s to Branch drug Shellfis Propensi Active Rash nausea, Metho di h ty to 05-17 headache, st Containi adverse 00:00: weakness Hospi ta ng reaction l Products s to drug MORPHINE DRUG Active Med Palpitations [place] INGREDI 05-13 ity of 00:00: [place] 00 Medical Branch Morphine Propensi Active Palpitations Univers ty to 05-13 ity of adverse 00:00: [place] reaction 00 Medical s to Branch drug Family History Family Member Diagnosis Comments Start Date Stop Date Source Natural mother Cancer [facility] Natural mother Hypertension [facility] Natural mother Uterine cancer [facility] Natural sister Diabetes [facility] Natural father Kidney disease [facility] Natural father Kidney cancer [facility] Social History Social Habit Start Date Stop Date Quantity Comments Source Exposure to Not sure [facility] SARS-CoV-2 [place] [facility] (event) Branch History SDOH [facility] - Alcohol Std Medical Cent[facility] r Drinks History SDOH [facility] - Alcohol Binge Medical [address] Tobacco use and 2021-03-27 2021-03-27 Never used Universit y of exposure 00:00:00 00:00:00 [facility] Alcohol intake 2021-03-27 2021-03-27 Current University of 00:00:00 00:00:00 non-drinker of [facility] alcohol Branch (finding) History SDOH 2018-07-28 2018-07-[address] [facility] - Alcohol Frequency 00:00:00 00:00:00 Medical Center Sex Ass[birth year] At [birth year] Universit y of 00:00:00 00:00:00 [facility] Smoking Status Start Date Stop Date Source Never smoker [facility] [place] [facility] Medications Ordered Filled Start Stop Current Ordering Indication Dosage Frequency Signature Comments Components Source Medication Medication Date Date Medication? Clinician (SIG) Name Name cloNIDine 2020- No .3mg 0.3 mg, Univ ers (CATAPRES) 03-27 Oral, ity of tablet 0.3 08:45: 07:42 ONCE, 1 Juan C as mg 00 :00 dose, Fri Medical 03/27/21 at Branch 0345, STAT proMETHazin 2020- No 25mg 25 mg, IV Univers e 03-27 Piggyback, ity of (PHENERGAN) 07:30: 07:30 [place]CE[place] 1 [place] in 00 :00 dose, Tue Medica l NaCl 0.9% 03/27/21 at [facility] (NS) 50 mL 0230, 50 piggyback mL FENTanyl PF 2020- No 100ug 100 mcg, [facility] (SUBLIMAZE 03-27 Slow IV ity o f (PF)) 07:30: 06:31 Push, [place] injection 00 :00 ONCE, 1 Medical 100 mcg dose, Fri Branch 03/27/21 at 0230, Routine amoxicillin Yes [id number] 875mg Take 1 Univers 875 mg 5-20 82800 tablet by ity of tablet 00:00: mouth 2 [place] 00 (two) Medical times Branch daily. amoxicillin Yes [id number] 875mg Take 1 Univers 875 mg 5-20 70047 tablet by ity of tablet 00:00: mouth 2 [place] 00 (two) Medical times Branch daily. neomycin-po 2020- No [id number] 3[drp] Place 3 Univers lymyxin-hyd 01-15 11533 Drops in it y of rocortisone 00:00: 04:59 right ear [place] 3.5-10,000- 00 :00 4 (four) Medi valentin 1 times [place] mg/mL-unit/ daily for mL-% otic 7 days. susp pilocarpine Yes 5mg QD Take 5 mg M ethodi (SALAGEN) 5 1-[address] MG tablet 22:02: daily. Hospit a 14 l sodium Yes 648mg QD Take 648 Method i bicarbonate 1-[address] 650 mg 22:02: mouth Hospita tablet 14 daily. l hydroxychlo 2020-0 Yes 500mg Q.5D Take 500 M ethodi roquine 1-[address] (PLAQUENIL) 22:02: mouth 2 Hos monique 200 mg 14 (two) l tablet times a day. HYDROCODONE 2020-0 Yes Take by Met hodi /ACETAMINOP 1-[address] HEN (NORCO 22:02: needed. [facility] ORAL) 14 l ALPRAZolam 2019-0 Yes .5mg Q.5D Take 0.5 Met hodi (XANAX) 0.5 1-[address] MG tablet 22:02: mouth 2 Hospi ta 14 (two) l times a day as needed for anxiety. sertraline 2019-0 Yes 25mg QD Take 25 mg M ethodi (ZOLOFT) 25 1-[address] MG tablet 22:02: daily. Hospit a 14 l doxazosin 2017-08 Yes 4mg Take [address] (CARDURA) 2 2-04 by mouth. Jose es - MG tablet 08:16: [address] pantoprazol 2017-08 Yes 40mg QD Take [address] [facility] e 2-04 by mouth [facility] - (PROTONIX) 08:16: daily. Medic al 40 MG 44 Center tablet doxazosin 2017-08 Yes 4mg Take [address] (CARDURA) 2 2-04 by mouth. Jose es - MG tablet 08:16: [address] pantoprazol 2017-08 Yes 40mg QD Take [address] e 2-04 by mouth [facility] - (PROTONIX) 08:16: daily. Medic al 40 MG 44 Center tablet zolpidem 2017-08 Yes 10mg QD Take [address] (AMBIEN) 10 1-25 by mouth Luke s - mg tablet 00:00: nightly. [facility] Melbeta zolpidem 2017-08 Yes 10mg QD Take [address] (AMBIEN) 10 1-25 by mouth Luke s - mg tablet 00:00: nightly. [address] ondansetron 2017-08 Yes DIS [address] [facility] [address] (ZOFRAN-ODT 1-23 THE TONGUE Gilda kes - ) 8 MG 00:00: BID Medical [address] ing tablet ondansetron 2017-08 Yes DIS [address] [facility] (ZOFRAN-ODT 1-23 THE TONGUE Gilda kes - ) 8 MG 00:00: BID Medical disintegrat 00 Center ing tablet HYDROcodone 2017-08 Yes TK [address] T PO [facility] -acetaminop 1-15 Q 8 H PRN Jose es - hen (NORCO 00:00: Medical 10) 00 Center 10-325 mg per tablet HYDROcodone [...] Medica l 200 mg 00 Center tablet doxazosin Yes 4mg Take 4 mg Uni vers (CARDURA) 2 3-21 by mouth ity of mg tablet 20:00: daily. [place] [address] Medical Branch metoprolol Yes 100mg Take 100 [place] succinate 3-21 mg by ity of XL (TOPROL 20:00: [place] 2 [place] XL[place] 100 mg 52 (two) Medical 24 hr times Branch tablet daily. HYDROcodone Yes 1{tbl} Take 1 Tab Univers -acetaminop 3-21 by mouth ity of hen (NORCO) 20:00: every 6 Juan C as 10-325 mg 52 (six) Medical tablet hours. Branch amLODIPine 2018-0 Yes 10mg Take 10 mg U nivers (NORVASC) 3-21 by mouth ity of 10 mg 20:00: daily. [place] tablet 52 Medical Branch doxazosin 2018-0 Yes 4mg Take 4 mg Uni vers (CARDURA) 4 3-21 by mouth ity of mg tablet 20:00: daily. [place] [address] Medical Branch zolpidem 2018-0 Yes 10mg Take 10 mg Uni vers (AMBIEN) 10 3-21 by mouth ity of mg tablet 20:00: at [place]time [place] 52 as needed Medical for Branch Insomnia. hydroxychlo 2018-0 Yes 200mg Take 200 U nivers roquine 3-21 mg by ity of (PLAQUENIL) 20:00: mouth [place] 200 mg 52 daily. Medical tablet Branch doxazosin 2018-0 Yes 4mg Take 4 mg Uni vers (CARDURA) 2 3-21 by mouth ity of mg tablet 20:00: daily. [place] [address] Medical Branch metoprolol 2018-0 Yes 100mg Take 100 [place] succinate 3-21 mg by ity of XL (TOPROL 20:00: mouth 2 [place] XL) 100 mg 52 (two) Medical 24 hr times Branch tablet daily. HYDROcodone 2018-0 Yes 1{tbl} Take 1 Tab Univers -acetaminop 3-21 by mouth ity of hen (NORCO) 20:00: every 6 Juan C as 10-325 mg 52 (six) Medical tablet hours. Branch amLODIPine 2018-0 Yes 10mg Take 10 mg U nivers (NORVASC) 3-21 by mouth ity of 10 mg 20:00: daily. [place] tablet 52 Medical Branch doxazosin 2018-0 Yes 4mg Take 4 mg Uni vers (CARDURA) 4 3-21 by mouth ity of mg tablet 20:00: daily. [place] [address] Medical Branch zolpidem 2018-0 Yes 10mg Take 10 mg Uni vers (AMBIEN) 10 3-21 by mouth ity of mg tablet 20:00: at bedtime [place] 52 as needed Medical for Branch Insomnia. hydroxychlo 2018-0 Yes 200mg Take 200 U nivers roquine 3-21 mg by ity of (PLAQUENIL) 20:00: mouth [place] 200 mg 52 daily. Medical tablet Branch doxazosin 2018-0 Yes 4mg Take 4 mg Uni vers (CARDURA) 2 3-21 by mouth ity of mg tablet 20:00: daily. [place] [address] Medical Branch metoprolol 2018-0 Yes 100mg Take 100 [place] succinate 3-21 mg by ity of XL (TOPROL 20:00: mouth 2 [place] XL[place] 100 mg 52 (two) Medical 24 hr times Branch tablet daily. HYDROcodone 2018-0 Yes 1{tbl} Take 1 Tab Univers -acetaminop 3-21 by mouth ity of hen (NORCO) 20:00: every 6 [facility] C as 10-325 mg 52 (six) Medical tablet hours. Branch amLODIPine 2018-0 Yes 10mg Take 10 mg U nivers (NORVASC) 3-21 by mouth ity of 10 mg 20:00: daily. [place] [address] Medical Branch doxazosin 2018-0 Yes 4mg Take 4 mg Uni vers (CARDURA) 4 3-21 by mouth ity of mg tablet 20:00: daily. [place] [address] Medical Branch zolpidem 2018-0 Yes 10mg Take 10 mg Uni vers (AMBIEN) 10 3-21 by mouth ity of mg tablet 20:00: at bedtime [place] 52 as needed Medical for Branch Insomnia. hydroxychlo 2018-0 Yes 200mg Take 200 U nivers roquine 3-21 mg by ity of (PLAQUENIL) 20:00: mouth [place] 200 mg 52 daily. Medical tablet Branch doxazosin 2018-0 Yes 4mg Take 4 mg Uni vers (CARDURA) 2 3-21 by mouth ity of mg tablet 20:00: daily. [place] [address] Medical Branch metoprolol 2018-0 Yes 100mg Take 100 [place] succinate 3-21 mg by ity of XL (TOPROL 20:00: mouth 2 [place] XL[place] 100 mg 52 (two) Medical 24 hr times Branch tablet daily. HYDROcodone 2018-0 Yes 1{tbl} Take 1 Tab Univers -acetaminop 3-21 by mouth ity of hen (NORCO) 20:00: every 6 Juan C as 10-325 mg 52 (six) Medical tablet hours. Branch amLODIPine 2018-0 Yes 10mg Take 10 mg U nivers (NORVASC) 3-21 by mouth ity of 10 mg 20:00: daily. [place] tablet 52 Medical Branch doxazosin 2018-0 Yes 4mg Take 4 mg Uni vers (CARDURA) 4 3-21 by mouth ity of mg tablet 20:00: daily. [place] [address] Medical Branch zolpidem 2017-0 Yes 10mg Take 10 mg Uni vers (AMBIEN) 10 3-21 by mouth ity of mg tablet 20:00: at bedtime [place] 52 as needed Medical for Branch Insomnia. hydroxychlo 2018-0 Yes 200mg Take 200 U nivers roquine 3-21 mg by ity of (PLAQUENIL) 20:00: mouth [place] 200 mg 52 daily. Medical tablet Branch doxazosin 0 Yes 4mg Take 4 mg Uni vers (CARDURA) 2 3-21 by mouth ity of mg tablet 20:00: daily. [place] [address] Medical Branch metoprolol 2017-0 Yes 100mg Take 100 [place] succinate 3-21 mg by ity of XL (TOPROL 20:00: mouth 2 [place] XL) 100 mg 52 (two) Medical 24 hr times Branch tablet daily. HYDROcodone 0 Yes 1{tbl} Take 1 Tab Univers -acetaminop 3-21 by mouth ity of hen (NORCO) 20:00: every 6 Juan C as 10-325 mg 52 (six) Medical tablet hours. Branch amLODIPine 0 Yes 10mg Take 10 mg U nivers (NORVASC) 3-21 by mouth ity of 10 mg 20:00: daily. [place] tablet 52 Medical Branch doxazosin 20180 Yes 4mg Take 4 mg Uni vers (CARDURA) 4 3-21 by mouth ity of mg tablet 20:00: daily. [place] [address] Medical Branch zolpidem 0 Yes 10mg Take 10 mg Uni vers (AMBIEN) 10 3-21 by mouth ity of mg tablet 20:00: at bedtime [place] 52 as needed Medical for Branch Insomnia. hydroxychlo 2018-0 Yes 200mg Take 200 U nivers roquine 3-21 mg by ity of (PLAQUENIL) 20:00: mouth [place] 200 mg 52 daily. Medical tablet Branch zolpidem 0 Yes 10mg QD Take 10 mg Met hodi (AMBIEN) 10 6-[address] mg tablet 00:00: nightly as Ho [facility] 00 needed for l sleep. mycophenola 2017-0 Yes 1000mg Q.5D Take 1,000 Methodi te 5-[address] (CELLCEPT) 00:00: mouth 2 [facility] 500 mg 00 (two) l tablet times a day. HYDROcodone 2015-0 Yes 1{tbl} Take 1 [place] -acetaminop 9-24 tablet by ity of hen (Heatmaps) 00:00: mouth [place] 10-325 mg 00 every 6 Medical tablet (six) Branch hours as needed for Pain (scale 7-10). HYDROcodone 2015-0 Yes 1{tbl} Take 1 [place] -acetaminop 9-24 tablet by ity of hen (Heatmaps) 00:00: mouth [place] 10-325 mg 00 every 6 Medical tablet (six) Branch hours as needed for Pain (scale 7-10). HYDROcodone 2015-0 Yes 1{tbl} Take 1 [place] -acetaminop 9-24 tablet by ity of hen (Heatmaps) 00:00: mouth [place] 10-325 mg 00 every 6 Medical tablet (six) Branch hours as needed for Pain (scale 7-10). HYDROcodone 2015-0 Yes 1{tbl} Take 1 [place] -acetaminop 9-24 tablet by ity of hen (Heatmaps) 00:00: mouth [place] 10-325 mg 00 every 6 Medical tablet (six) Branch hours as needed for Pain (scale 7-10). HYDROcodone 2015-0 Yes 1{tbl} Take 1 [place] -acetaminop 9-24 tablet by ity of hen (Heatmaps) 00:00: mouth [place] 10-325 mg 00 every 6 Medical tablet (six) Branch hours as needed for Pain (scale 7-10). hydralAZINE 2016-0 Yes 100mg Take 1 Uni vers (APRESOLINE 9-23 tablet by ity of ) 100 mg 00:00: mouth [place] tablet 00 every 8 Medical (eight) Branch hours. Indication s: Up to TID depending on blood pressure cloniDINE 2016-0 Yes .45mg Take 1.5 Uni vers (CATAPRES) 9-23 tablets by ity of 0.3 mg 00:00: mouth 3 [place] tablet 00 (three) Medical times Branch daily. hydralAZINE 2016-0 Yes 100mg Take 1 Uni vers (APRESOLINE 9-23 tablet by ity of ) 100 mg 00:00: mouth [place] tablet 00 every 8 Medical (eight) Branch hours. Indication s: Up to TID depending on blood pressure cloniDINE 2015-0 Yes .45mg Take 1.5 Uni vers (CATAPRES) 9-23 tablets by ity of 0.3 mg 00:00: mouth 3 [place] tablet 00 (three) Medical times Branch daily. hydralAZINE 2016-0 Yes 100mg Take 1 Uni vers (APRESOLINE 9-23 tablet by ity of ) 100 mg 00:00: mouth [place] tablet 00 every 8 Medical (eight) Branch hours. Indication s: Up to TID depending on blood pressure cloniDINE 2015- Yes .45mg Take 1.5 Uni vers (CATAPRES) 9-23 tablets by ity of 0.3 mg 00:00: mouth 3 [place] tablet 00 (three) Medical times Branch daily. hydralAZINE 2015-0 Yes 100mg Take 1 Uni vers (APRESOLINE 9-23 tablet by ity of ) 100 mg 00:00: mouth [place] tablet 00 every 8 Medical (eight) Branch hours. Indication s: Up to TID depending on blood pressure cloniDINE 2015-0 Yes .45mg Take 1.5 Uni vers (CATAPRES) 9-23 tablets by ity of 0.3 mg 00:00: mouth 3 [place] tablet 00 (three) Medical times Branch daily. hydralAZINE 0 Yes 100mg Take 1 Uni vers (APRESOLINE 9-23 tablet by ity of ) 100 mg 00:00: mouth [place] tablet 00 every 8 Medical (eight) Branch hours. Indication s: Up to TID depending on blood pressure cloniDINE 2015- Yes .45mg Take 1.5 Uni vers (CATAPRES) 9-23 tablets by ity of 0.3 mg 00:00: mouth 3 [place] tablet 00 (three) Medical times Branch daily. tiZANidine 2015-0 Yes TK 1 T PO [place] (ZANAFLEX) 8-22 QHS. ity of 2 mg tablet 00:00: Medical Branch ZOHYDRO ER 2016-0 Yes TK ONE C Uni vers 10 mg CR12 8-22 PO Q 12 H ity of 00:00: PRN. Medical Branch tiZANidine 2015-0 Yes TK 1 T PO [place] (ZANAFLEX) 8-22 QHS. ity of 2 mg tablet 00:00: [facility] ZOSTITTVILLE ER Yes TK ONE C Uni vers 10 mg CR12 8-22 PO Q 12 H ity of 00:00: PRN. [facility] tiZANidine Yes TK 1 T PO [place] (ZANAFLEX) 8-22 QHS. ity of 2 mg tablet 00:00: [facility] ZOSTITTVILLE ER Yes TK ONE C Uni vers 10 mg CR12 8-22 PO Q 12 H ity of 00:00: PRN. [facility] Branch tiZANidine Yes TK 1 T PO [place] (ZANAFLEX) 8-22 QHS. ity of 2 mg tablet 00:00: [facility] ZOSTITTVILLE ER Yes TK ONE C Uni vers 10 mg CR12 8-22 PO Q 12 H ity of 00:00: PRN. [facility] tiZANidine Yes TK 1 T PO [place] (ZANAFLEX) 8-22 QHS. ity of 2 mg tablet 00:00: [facility] ZOSTITTVILLE ER Yes TK ONE C Uni vers 10 mg CR12 8-22 PO Q 12 H ity of 00:00: PRN. [facility] furosemide Yes TK 1 T PO [place] (LASIX) 80 6-16 BID. ity of mg tablet 00:00: [facility] furosemide Yes TK 1 T PO [place] (LASIX) 80 6-16 BID. ity of mg tablet 00:00: [facility] furosemide Yes TK 1 T PO [place] (LASIX) 80 6-16 BID. ity of mg tablet 00:00: [facility] furosemide Yes TK 1 T PO [place] (LASIX) 80 6-16 BID. ity of mg tablet 00:00: [facility] furosemide Yes TK 1 T PO [place] (LASIX) 80 6-16 BID. ity of mg tablet 00:00: [facility] ONETOUCH Yes FPD Univers ULTRA2 Kit 6-13 ity of 00:00: [facility] ONETOUCH 2016-0 Yes FPD Univers ULTRA2 Kit 6-13 ity of 00:00: [place] 00 Medical Branch ONETOUCH 2016-0 Yes FPD Univers ULTRA2 Kit 6-13 ity of 00:00: [place] 00 Medical Branch ONETOUCH 2016-0 Yes FPD Univers ULTRA2 Kit 6-13 ity of 00:00: [place] 00 Medical Branch ONETOUCH 2016-0 Yes FPD Univers ULTRA2 Kit 6-13 ity of 00:00: [place] 00 Medical Branch ONE TOUCH 2016-0 Yes U TID. Univer s DELICA 33 6-12 ity of gauge Misc 00:00: [place] 00 Medical Branch ONE TOUCH 2016-0 Yes U TID. Univer s DELICA 33 6-12 ity of gauge Misc 00:00: [place] 00 Medical Branch ONE TOUCH 2016-0 Yes U TID. Univer s DELICA 33 6-12 ity of gauge Misc 00:00: [place] 00 Medical Branch ONE TOUCH 2016-0 Yes U TID. Univer s DELICA 33 6-12 ity of gauge Misc 00:00: [place] 00 Medical Branch ONE TOUCH 2016-0 Yes U TID. Univer s DELICA 33 6-12 ity of gauge Misc 00:00: [place] 00 Medical Branch cyclobenzap 2016-0 Yes 5mg Take 5 mg U nivers rine 4-25 by mouth 3 ity of (FLEXERIL) 00:00: (three) [place] 5 mg tablet 00 times Medical daily as Branch needed. cyclobenzap 2016-0 Yes 5mg Take 5 mg U nivers rine 4-25 by mouth 3 ity of (FLEXERIL) 00:00: (three) [place] 5 mg tablet 00 times Medical daily as Branch needed. cyclobenzap 2016-0 Yes 5mg Take 5 mg U nivers rine 4-25 by mouth 3 ity of (FLEXERIL) 00:00: (three) [place] 5 mg tablet 00 times Medical daily as Branch needed. cyclobenzap 2016-0 Yes 5mg Take 5 mg U nivers rine 4-25 by mouth 3 ity of (FLEXERIL) 00:00: (three) [place] 5 mg tablet 00 times Medical daily as Branch needed. cyclobenzap 2016-0 Yes 5mg Take 5 mg U nivers rine 4-25 by mouth 3 ity of (FLEXERIL) 00:00: (three) [place] 5 mg tablet 00 times Medical daily as Branch needed. gabapentin 2016-0 Yes 800mg Take 800 [place] (NEURONTIN) 4-13 mg by ity of 800 mg 00:00: mouth 3 [place] tablet 00 (three) Medical times Branch daily as needed. gabapentin 2016-0 Yes 800mg Take 800 [place] (NEURONTIN) 4-13 mg by ity of 800 mg 00:00: mouth 3 [place] tablet 00 (three) Medical times Branch daily as needed. gabapentin 2016-0 Yes 800mg Take 800 [place] (NEURONTIN) 4-13 mg by ity of 800 mg 00:00: mouth 3 [place] tablet 00 (three) Medical times Branch daily as needed. gabapentin 2016-0 Yes 800mg Take 800 [place] (NEURONTIN) 4-13 mg by ity of 800 mg 00:00: mouth 3 [place] tablet 00 (three) Medical times Branch daily as needed. gabapentin 2016-0 Yes 800mg Take 800 [place] (NEURONTIN) 4-13 mg by ity of 800 mg 00:00: mouth 3 [place] tablet 00 (three) Medical times Branch daily as needed. proMETHazin 2016-0 Yes 25mg Take 25 mg Univers e 4-11 by mouth ity of (PHENERGAN) 00:00: every 6 [facility] C as 25 mg 00 (six) Medical tablet hours as Branch needed. proMETHazin 2016-0 Yes 25mg Take 25 mg Univers e 4-11 by mouth ity of (PHENERGAN) 00:00: every 6 [facility] as 25 mg 00 (six) Medical tablet hours as Branch needed. proMETHazin 2016-0 Yes 25mg Take 25 mg Univers e 4-11 by mouth ity of (PHENERGAN) 00:00: every 6 [place] [facility] as 25 mg 00 (six) Medical tablet hours as Branch needed. proMETHazin 2016-0 Yes 25mg Take 25 mg Univers e 4-11 by mouth ity of (PHENERGAN) 00:00: every 6 [place] [facility] as 25 mg 00 (six) Medical tablet hours as Branch needed. proMETHazin 2016-0 Yes 25mg Take 25 mg Univers e 4-11 by mouth ity of (PHENERGAN) 00:00: every 6 [facility] as 25 mg 00 (six) Medical tablet hours as Branch needed. mycophenola 2016-0 Yes Univer s te mofetil 4-07 ity of (CELLCEPT) 00:00: [place] 500 mg 00 Medical tablet Branch mycophenola 2016-0 Yes Univer s te mofetil 4-07 ity of (CELLCEPT) 00:00: [place] 500 mg 00 Medical tablet Branch mycophenola 2016-0 Yes Univer s te mofetil 4-07 ity of (CELLCEPT) 00:00: [place] 500 mg 00 Medical tablet Branch mycophenola 2016-0 Yes Univer s te mofetil 4-07 ity of (CELLCEPT) 00:00: [place] 500 mg 00 Medical tablet Branch mycophenola 2016-0 Yes Univer s te mofetil 4-07 ity of (CELLCEPT) 00:00: [place] 500 mg 00 Medical tablet Branch mycophenola 2016-0 Yes 1000mg Q.5D Take 1,[address] [facility] (CELLCEPT) 00:00: mouth 2 Medi valentin 500 mg 00 (two) Center tablet times daily. mycophenola 2016-0 Yes 1000mg Q.5D Take 1,[address] [facility] - (CELLCEPT) 00:00: mouth 2 Medi valentin 500 mg 00 (two) Center tablet times daily. metoprolol 2016-0 Yes 100mg Take 100 Un aaliyah tartrate 3-29 mg by ity of (LOPRESSOR) 00:00: mouth 2 Juan C as 100 mg 00 (two) Medical tablet times Branch daily. metoprolol 2016-0 Yes 100mg Take 100 Un aaliyah tartrate 3-29 mg by ity of (LOPRESSOR) 00:00: mouth 2 Juan C as 100 mg 00 (two) Medical tablet times Branch daily. metoprolol 2016-0 Yes 100mg Take 100 Un aaliyah tartrate 3-29 mg by ity of (LOPRESSOR) 00:00: mouth 2 Juan C as 100 mg 00 (two) Medical tablet times Branch daily. metoprolol 2016-0 Yes 100mg Take 100 Un aaliyah tartrate 3-29 mg by ity of (LOPRESSOR) 00:00: mouth 2 Juan C as 100 mg 00 (two) Medical tablet times Branch daily. metoprolol 2016-0 Yes 100mg Take 100 Un aaliyah tartrate 3-29 mg by ity of (LOPRESSOR) 00:00: mouth 2 Juan C as 100 mg 00 (two) Medical tablet times Branch daily. ondansetron 2016-0 Yes 4mg Take 4 mg U nivers (ZOFRAN-ODT 3-28 by mouth ity of ) 4 mg 00:00: every 8 [place] disintegrat 00 (eight) Medic al ing tablet hours as Branc h needed for Nausea and Vomiting (N/V). ondansetron 2016-0 Yes 4mg Take 4 mg U nivers (ZOFRAN-ODT 3-28 by mouth ity of ) 4 mg 00:00: every 8 [place] disintegrat 00 (eight) Medic al ing tablet hours as Branc h needed for Nausea and Vomiting (N/V). ondansetron 2016-0 Yes 4mg Take 4 mg U nivers (ZOFRAN-ODT 3-28 by mouth ity of ) 4 mg 00:00: every 8 [place] disintegrat 00 (eight) Medic al ing tablet hours as Branc h needed for Nausea and Vomiting (N/V). ondansetron 2016-0 Yes 4mg Take 4 mg U nivers (ZOFRAN-ODT 3-28 by mouth ity of ) 4 mg 00:00: every 8 [place] disintegrat 00 (eight) Medic al ing tablet hours as Branc h needed for Nausea and Vomiting (N/V). ondansetron 2015-0 Yes 4mg Take 4 mg U nivers (ZOFRAN-ODT 3-28 by mouth ity of ) 4 mg 00:00: every 8 [place] disintegrat 00 (eight) Medic al ing tablet hours as Branc h needed for Nausea and Vomiting (N/V). ONETOUCH 0 Yes Univers ULTRA TEST 2-21 ity of strip 00:00: [place] 00 Medical Branch ONETOUCH 0 Yes Univers ULTRA TEST 2-21 ity of strip 00:00: [place] 00 Medical Branch ONETOUCH 0 Yes Univers ULTRA TEST 2-21 ity of strip 00:00: [place] 00 Medical Branch ONETOUCH 2015-0 Yes Univers ULTRA TEST 2-21 ity of strip 00:00: [place] 00 Medical Branch ONETOUCH 2015-0 Yes Univers ULTRA TEST 2-21 ity of strip 00:00: [place] 00 Medical Branch amLODIPine 2015-1 Yes 10mg Take [address] (NORVASC) 2-11 by [facility]. [facility] - 10 MG 00:00: Medical tablet 00 Center amLODIPine 2014-08 Yes 10mg Take [address] (NORVASC) 2-11 by [facility]. [facility] - 10 MG 00:00: Medical tablet 00 Melbeta cloNIDine 2014-08 Yes .3mg Q.[id number] Take 0.[address] [facility] HCl 1-11 [id number] mg by [facility] - (CATAPRES) 00:00: 3D mouth 3 Medi valentin 0.3 MG 00 (three) Center tablet times daily . furosemide 2014-08 Yes 80mg Take [address] (LASIX) 40 1-11 by mouth . Jose es - MG tablet 00:00: Medical 00 Melbeta hydrALAZINE 2014-08 Yes 50mg Q.[id number] Take [address] [facility] (APRESOLINE 1-11 [id number] by mouth 3 [facility] - ) 50 MG 00:00: 3D (three) Medical tablet 00 times Center daily. metoprolol 2014-08 Yes 100mg Q.5D Take [address] (LOPRESSOR) 1-11 mg by [facility] - 100 MG 00:00: mouth 2 Medical tablet 00 (two) Center times daily. cloNIDine 2014-08 Yes .3mg Q.08224023 Take 0.[address] HCl 1-11 [id number] mg by [facility] - (CATAPRES) 00:00: 3D mouth 3 Medi valentin 0.3 MG 00 (three) Center tablet times daily . furosemide 2014-08 Yes 80mg Take [address] (LASIX) 40 1-11 by mouth . Jose es - MG tablet 00:00: Medical 00 Melbeta hydrALAZINE 2014-08 Yes 50mg Q.04056301 Take [address] (APRESOLINE 1-11 [id number] by mouth 3 [facility] - ) 50 MG 00:00: 3D (three) Medical tablet 00 times Center daily. metoprolol 2014-08 Yes 100mg Q.5D Take [address] (LOPRESSOR) 1-11 mg by [facility] - 100 MG 00:00: mouth 2 Medical tablet 00 (two) Center times daily. Immunizations Ordered Filled Immunization Date Status Comments [facility] e Immunization Name Name SARS-COV-2 COVID-19 2020-11-15 [facility]00 [facility] SARS-COV-2 COVID-19 2020-11-15 Completed Unive rsity of PFIZER VACCINE 00:00:00 [facility] SARS-COV-2 COVID-19 2020-10-25 Completed Unive rsity of PFIZER VACCINE 00:00:00 [facility] SARS-COV-2 COVID-19 2020-10-25 Completed Unive rsity of PFIZER VACCINE 00:00:00 [facility] SARS-COV-2 COVID-19 2020-10-25 Completed Unive rsity of PFIZER VACCINE 00:00:00 [facility] SARS-COV-2 COVID-19 2020-10-25 Completed Unive rsity of PFIZER VACCINE 00:00:00 [facility] SARS-COV-2 COVID-19 2020-10-25 Completed Unive rsity of PFIZER VACCINE 00:00:00 [facility] Vital Signs Vital Name Observation Time Observation Value Comments Source Systolic blood 2021-03-27 08:00:00 182 mm[Hg] Univer sity of pressure [facility] Diastolic blood 2021-03-27 08:00:00 101 mm[Hg] Unive rsity of pressure [facility] Heart rate 2021-03-27 08:00:00 72 /min [facility] Respiratory rate 2021-03-27 08:00:00 10 /min [facility] Oxygen saturation in 2021-03-27 08:00:00 100 /min [facility] Arterial blood by [facility] Pulse oximetry [place] Body temperature 2021-03-27 04:49:00 37.28 [facility] height 2021-03-27 04:49:00 157.5 cm [facility] Body weight 2021-03-27 04:49:00 83.462 kg [facility] BMI 2021-03-27 04:49:00 33.65 kg/m2 [facility] Systolic blood 2021-01-15 15:01:00 140 mm[Hg] Univer sity of pressure [facility] Diastolic blood 2021-01-15 15:01:00 84 mm[Hg] Unive rsity of pressure [facility] Heart rate 2021-01-15 15:01:00 76 /min [facility] Body temperature 2021-01-15 15:01:00 36.28 Chhaya Univ ersity of [facility] Branch Respiratory rate 2021-01-15 15:01:00 18 /min Univ ersity of [facility] Body height 2021-01-15 15:01:00 157.5 cm [facility] [place] [facility] [place] Body weight 2021-01-15 15:01:00 90.719 kg [facility] [place] [facility] BMI 2021-01-15 15:01:00 36.58 kg/m2 Universi ty of [facility] Oxygen saturation in 2021-01-15 15:01:00 99 /min [facility] Arterial blood by [facility] Pulse oximetry Branch Systolic blood 2020-11-12 19:02:00 155 mm[Hg] Univer sity of pressure [facility] Diastolic blood 2020-11-12 19:02:00 95 mm[Hg] Unive rsity of pressure [facility] Heart rate 2020-11-12 19:01:00 79 /min [facility] Respiratory rate 2020-11-12 19:01:00 19 /min Univ ersity of [facility] Body height 2020-11-12 19:01:00 167.6 cm [facility] Body weight 2020-11-12 19:01:00 86.002 kg [facility] [place] [facility] BMI 2020-11-12 19:01:00 30.60 kg/m2 [facility] [place] [facility] Systolic blood 2020-11-12 19:02:00 155 mm[Hg] Univer [facility]ity of [facility] Diastolic blood 2020-11-12 19:02:00 95 mm[Hg] Unive rsity of pressure [facility] Heart rate 2020-11-12 19:01:00 79 /min [facility] [place] [facility] Respiratory rate 2020-11-12 19:01:00 19 /min Univ ersity of [facility] Body height 2020-11-12 19:01:00 167.6 cm [facility] [place] [facility] Body weight 2020-11-12 19:01:00 86.002 kg [facility] [place] [facility] BMI 2020-11-12 19:01:00 30.60 kg/m2 [facility] Procedures Procedure Date / Time Performed Performing Clinician Sour e NOTICE OF PRIVACY 2021-03-27 04:39:35 Doctor Unassigned, No Univ [facility] PRACTICES Name Medical Branch CONSENT/REFUSAL FOR 2021-03-27 04:37:48 [facility] Branch TREATMENT CONSENT/REFUSAL FOR 2021-01-15 14:58:04 Doctor [facility]igned, [facility] [place] [facility] AND Name Medical Branch TREATMENT ASSIGNMENT OF BENEFITS 2020-11-12 18:39:16 Doctor Unassigned, No [facility] Name Medical Branch Plan of Care Planned Activity Planned Date [...] 00:00:00 measurement Medical Center (procedure) [code = 43757541] Future Scheduled 2019-01-[address] [facility] - Test 00:00:00 measurement Medical Center (procedure) [code = 17035774] Future Scheduled 2018-08-[address] [...] s - Test 00:00:00 (procedure) [code = [facility] 69009999] Future Scheduled [address] - Test 00:00:00 (procedure) [code = [facility] 67665584] Future Scheduled 2014-06-[address] [...] 00:00:00 malignant neoplasm of Medica l Center cervix (procedure) [code = 838347970] Future Scheduled [address] [facility] - Test 00:00:00 malignant neoplasm of Medica l Center cervix (procedure) [code = 030378191] Future Scheduled 1989 DTAP/TDAP/TD VACCINES CH I [...] 00:00:00 examination Medical Center (regime/therapy) [code = 667217189] Future Scheduled 1980 Urine screening [facility] - Test 00:00:00 protein (procedure) Medical Center [code = 097136729] Future Scheduled 1980 DIABETIC EYE EXAM [facility] - Test 00:00:00 [code = DIABETIC EYE Medical Center EXAM] Future Scheduled [address] [facility] - Test 00:00:00 examination Medical Center (regime/therapy) [code = 801859501] Future Scheduled 1980 Urine screening [facility] - Test 00:00:00 protein (procedure) Medical Center [code = 687231865] Future Scheduled [address] [facility] - Test 00:00:00 malignant neoplasm of Medica l Center breast (procedure) [code = 970824523] Future Scheduled [address] [facility] - Test 00:00:00 malignant neoplasm of Medica l Center colon (procedure) [code = 672460213] Future Scheduled [address] - Test 00:00:00 malignant neoplasm of Medica l Center breast (procedure) [code = 056215246] Future Scheduled [address] [facility] - Test 00:00:00 malignant neoplasm of Medica l Center colon (procedure) [code = 481371998] Future Scheduled DIABETES: RETINAL EYE [facility] Test EXAM [code = DIABETES: RETINAL EYE EXAM] Future Scheduled DIABETIC FOOT EXAM [facility] Test [code = DIABETIC FOOT EXAM] Future Scheduled COVID-19 VACCINE (1) [facility] [code = COVID-19 VACCINE (1)] Future Scheduled Hepatitis C screening [facility] Test (procedure) [code = 822314056] Future Scheduled Screening for [facility] Test malignant neoplasm of cervix (procedure) [code = 776844896] Future Scheduled BREAST CANCER [facility] Test SCREENING [code = BREAST CANCER [...] Date/Time Type Type Clinicians Facility Department ID 2021-06-29 Emergency [facility] [id number] Univers 11:53:[address] [facility] 2021-06-28 Emergency [facility] [id number] Univers 20:14:[address] [facility] 2021-03-26 2021-03-27 [facility] [id number] Univers 23:56:00 03:30:00 Naga Pulido [place] [id number] ity [facility] [id number] [facility] [id number] [address] 2021-01-15 2021-01-15 Emergency [facility] [id number] Univers 10:03:00 11:43:00 Jeanna Tess [place] [id number] i ty of [place] 4.2.7.2.686 [facility] [id number] [address] 2020-12-11 2020-12-11 [facility] [id number] Univers 10:00:00 10:00:00 TONY [facility] 2020-12-11 2020-12-11 Outpatient [facility] [id number] Univers 10:00:00 10:00:00 TONY [id number] [facility] 2020-11-15 2020-11-15 Outpatient [facility] [id number] Univers 13:05:00 13:05:00 [facility] 2020-11-12 2020-11-12 Office [facility] [id number] Univers 13:40:03 14:10:03 Visit Ligia Gonzalez [id number] ity [place] 4[place]2.686 [place] [id number] Ny dical [address] 2020-11-12 2020-11-12 Office Mayela [facility] [id number] 13:40:03 14:10:03 Visit Ligia Gonzalez [id number] [place] 4.2.7.2.686 Professio [id number] [address] 2020-11-12 2020-11-12 Outpatient R MAYELA LIGIA [facility] [id number] Univers 14:00:00 14:00:[address] [facility] 2020-11-12 2020-11-12 Orders Doctor GRACY [id number] Univers 00:00:00 00:00:00 Only Unassigned, KATIE [id number] ity of [place] [facility] 4.2.7.2.686 Juan C as [id number] [address] 2020-10-25 2020-10-25 Outpatient [facility] [id number] Univers 12:45:00 12:45:[address] [facility] Results Test Description Test Time Test Comments Results Result Comments Source BLOOD CULTURE 2018-08-02 17:01:00 Test Item Value Reference Range Interpretation Comme nts CULTURE ([facility]) (test code = 1095) No growth in 5 days LUPUS ANTICOAGULANT SCREEN WITH REFLEX TO [id number] 16:08:00 Test Item Value Reference Range Interpretation Comments DRVV SCREEN RATIO 1.55 <1.20 H (BEAKER) (test code = 2707) DRVV CONFIRM RATIO 0.93 (test code = 2709) DRVV NORMALIZED RATIO 1.67 <1.20 H (test code = 2710) DRVV INTERPRETATION Positive screen for (BEAKER) (test code = Lupus Anticoagulant 2766) with hexagonal phospholipid confirmation. Suggest repeat testing in 12 weeks and when patient not receiving anticoagulant therapy. PROTIME (BEAKER) (test 15.0 seconds 11.7-14.7 H code = 759) INR (BEAKER) (test code 1.2 <=5.9 = 370) PARTIAL THROMBOPLASTIN 36.1 seconds 22.5-36.0 H TIME (BEAKER) (test code = 760) PTT-LA (BEAKER) (test 45.2 32.0-41.8 H code = 2476823573) [id number] Cindy Chavira MD (BEAKER) (test code = (electronic signature) 9327) HEXAGONAL [id number] 14:08:00 Test Item Value Reference Range Interpretation Comments HEXAGONAL PHOSPHOLIPID (BEAKER) Positive (test code = 1790) BLOOD [id number] 10:01:00 Test Item Value Reference Range Interpretation Comments CULTURE (BEAKER) (test No growth in 5 days code = 1095) DOUBLE-STRANDED DNA (DSDNA) [id number] 05:52:00 Test Item Value Reference Range Interpretation Comments ANTI-DNA DS (BEAKER) (test code = Negative 1055) CARDIOLIPIN ANTIBODIES, IGG AND [id number] 15:01:00 Test Item Value Reference Range Interpretation Comments ANTICARDIOLIPIN IGG ANTIBODY (BEAKER) < GPL <20.0 (test code = 712) ANTICARDIOLIPIN IGM ANTIBODY (BEAKER) 2.1 MPL <20.0 (test code = 713) Anticardiolipin IgG Result Interpretation: <20.0 GPL Normal>/= 20.0 GPL PositiveAnticardiolipin IgM Result Interpretation: <20.0 MPL Normal>/= 20.0 MPL PositiveCALCIUM, [id number] 05:12:00 Test Item Value Reference Range Interpretation Comments CALCIUM IONIZED (BEAKER) (test 1.01 mmol/L 1.12-1.27 L code = 698) PH, BLOOD (BEAKER) (test code = 7.45 1810) POCT-GLUCOSE [id number] 21:30:00 Test Item Value Reference Range Interpretation Comments POC-GLUCOSE METER 116 mg/dL 70-110 H TESTED AT [facility] 6720 (BEAKER) (test code = [place] 1538) [address] POCT-GLUCOSE [id number] 17:32:00 Test Item Value Reference Range Interpretation Comments POC-GLUCOSE METER 125 mg/dL 70-110 H TESTED AT [facility] 67 (BEAKER) (test code = JOB [place] 1538) [address] POCT-GLUCOSE [id number] 11:28:00 Test Item Value Reference Range Interpretation Comments POC-GLUCOSE METER 115 mg/dL 70-110 H TESTED AT [place] [address] (BEAKER) (test code = J[place] 1538) [address] POCT-GLUCOSE [id number] 07:41:00 Test Item Value Reference Range Interpretation Comments POC-GLUCOSE METER 108 mg/dL 70-110 TESTED AT [place] [address] (BEAKER) (test code = J[place] 1538) [address] [id number] 07:06:00 Test Item Value Reference Range Interpretation Comments MAGNESIUM (BEAKER) 1.8 mg/dL 1.6-2.6 Specimen slightly (test code = 627) hemolyzed [id number] 07:06:00 Test Item Value Reference Range Interpretation Comments PHOSPHORUS (BEAKER) 2.4 mg/dL 2.3-4.7 Specimen slightly (test code = 604) hemolyzed COMPREHENSIVE METABOLIC [id number] 07:06:00 Test Item Value Reference Range Interpretation [...] APPLICABLE FOR DIALYSIS PATIEN TS. HEPATIC FUNCTION [id number] 07:06:00 Test Item Value Reference Range Interpretation [...] slightly (test code = 347) hemolyzed CALCIUM, [id number] 06:42:00 Test Item Value Reference Range Interpretation Comments CALCIUM IONIZED (BEAKER) (test 1.16 mmol/L 1.12-1.27 code = 698) PH, BLOOD (BEAKER) (test code = 7.42 1810) CBC W/PLT COUNT & AUTO [id number] 05:10:00 Test Item Value Reference Range Interpretation [...] PERCENT (BEAKER) (test code = 2801) POCT-GLUCOSE [id number] 23:12:00 Test Item Value Reference Range Interpretation Comments POC-GLUCOSE METER 95 mg/dL 70-110 TESTED AT [place] [address] ([facility]) (test code = JOB Osei [facility] [address] 1538) POCT-GLUCOSE [id number] 18:51:00 Test Item Value Reference Range Interpretation Comments POC-GLUCOSE METER 118 mg/dL 70-110 H TESTED AT [place] [address] ([facility]) (test code = JOB Osei [facility] 1538) [address] HEMOGLOBIN AND [id number] 16:28:00 Test Item Value Reference Range Interpretation Comments HEMOGLOBIN ([facility]) (test code = 8.7 GM/DL 11.2-15.7 L 410) HEMATOCRIT ([facility]) (test code = 27.8 % 34.1-44.9 L 411) POCT-GLUCOSE [id number] 15:00:00 Test Item Value Reference Range Interpretation Comments POC-GLUCOSE METER 140 mg/dL 70-110 H TESTED AT [place] [address] ([facility]) (test code = JOB Osei [facility] 1538) [address] POCT-GLUCOSE [id number] 14:46:00 Test Item Value Reference Range Interpretation Comments POC-GLUCOSE METER 44 mg/dL 70-110 L Notified R Dandre WALTER/TESTED AT ([facility]) (test code = [address] 1538) [place] [address] 0 POCT-GLUCOSE [id number] 13:05:00 Test Item Value Reference Range Interpretation Comments POC-GLUCOSE METER 87 mg/dL 70-110 TESTED AT [place] [address] ([facility]) (test code = JOB Osei [facility] [address] 1538) POCT-GLUCOSE [id number] 11:57:00 Test Item Value Reference Range Interpretation Comments POC-GLUCOSE METER 65 mg/dL 70-110 L Notified R Dandre WALTER/TESTED AT ([facility]) (test code = [place] [address]18) [place] [id number] 0 VANCOMYCIN LEVEL, [id number] 10:58:00 Test Item Value Reference Range Interpretation Comments VANCOMYCIN TROUGH ([facility]) (test 14.2 ug/mL 10.0-20.0 code = 522) RAD, ABDOMEN/KUB, 1 VIEW [id number] 09:41:00Reason for exam:->abdominal painFINAL REPORT AP abdomen, two images HISTORY: Abdominal pain COMPARISON: 07/28/2013 IMPRESSION:Grossly nonobstructive bowel gas pattern. Intact skeleton. Signed: Vikas Guillen MDReport Verified Date/Time: 07/30/2018 09:41:59 Reading Location: [address] Ortho Consult ReadingRoom POCT-GLUCOSE [id number] 07:59:00 Test Item Value Reference Range Interpretation Comments POC-GLUCOSE METER 87 mg/dL 70-110 TESTED AT [facility] 6720 ([facility]) (test code = [place] [address] 1538) CALCIUM, [id number] 06:53:00 Test Item Value Reference Range Interpretation Comments CALCIUM IONIZED (BEAKER) (test 1.12 mmol/L 1.12-1.27 code = 698) PH, BLOOD (BEAKER) (test code = 7.44 1810) [id number] 06:38:00 Test Item Value Reference Range Interpretation Comments PHOSPHORUS (BEAKER) (test code = 2.7 mg/dL 2.3-4.7 604) [id number] 06:38:00 Test Item Value Reference Range Interpretation Comments MAGNESIUM (BEAKER) (test code = 1.6 mg/dL 1.6-2.6 627) HEPATIC FUNCTION [id number] 06:38:00 Test Item Value Reference Range Interpretation [...] = 9 U/L 6-55 347) COMPREHENSIVE METABOLIC [id number] 06:38:00 Test Item Value Reference Range Interpretation [...] PATIEN TS. CBC W/PLT COUNT & AUTO [id number] 06:11:00 Test Item Value Reference Range Interpretation [...] PERCENT (BEAKER) (test code = 2801) POCT-GLUCOSE [id number] 21:38:00 Test Item Value Reference Range Interpretation Comments POC-GLUCOSE METER 96 mg/dL 70-110 TESTED AT [facility] 6720 (BEAKER) (test code = [place] [address] 0018) POCT-GLUCOSE [id number] 18:19:00 Test Item Value Reference Range Interpretation Comments POC-GLUCOSE METER 121 mg/dL 70-110 H TESTED AT [facility] 6720 ([facility]) (test code = JOB Osei [facility] 1538) [address] T4, [id number] 12:35:00 Test Item Value Reference Range Interpretation Comments FREE T4 (BEAKER) (test code = 655) 1.25 ng/dL 0.70-1.48 POCT-GLUCOSE [id number] 12:27:00 Test Item Value Reference Range Interpretation Comments POC-GLUCOSE METER 127 mg/dL 70-110 H TESTED AT [facility] 6720 ([facility]) (test code = JOB Osei [facility] 1538) [address] TSH/FREE T4 IF [id number] 12:07:00 Test Item Value Reference Range Interpretation Comments THYROID STIMULATING HORMONE 0.25 uIU/mL 0.35-4.94 L (BEAKER) (test code = 772) [id number] 12:07:00 Test Item Value Reference Range Interpretation Comments THYROID STIMULATING HORMONE 0.25 uIU/mL 0.35-4.94 L ([facility]) (test code = 772) LACTIC ACID, VENOUS, WHOLE [id number] 11:35:00 Test Item Value Reference Range Interpretation Comments LACTATE BLOOD VENOUS 0.6 mmol/L 0.5-2.2 Specime n slightly (2) (BEAKER) (test hemolyzed code = 2872) VANCOMYCIN LEVEL, [id number] 07:11:00 Test Item Value Reference Range Interpretation Comments VANCOMYCIN RANDOM (BEAKER) (test 17.9 ug/mL code = 523) Reference Range: No [id number] 07:09:00 Test Item Value Reference Range Interpretation Comments PHOSPHORUS (BEAKER) (test code = 3.9 mg/dL 2.3-4.7 604) [id number] 07:09:00 Test Item Value Reference Range Interpretation Comments MAGNESIUM (BEAKER) (test code = 1.7 mg/dL 1.6-2.6 627) BASIC METABOLIC [id number] 07:09:00 Test Item Value Reference Range Interpretation [...] APPLICABLE FOR DIALYSIS PATIEN TS. HEPATIC FUNCTION [id number] 07:09:00 Test Item Value Reference Range Interpretation [...] code = 10 U/L 6-55 347) TROPONIN [id number] 06:54:00 Test Item Value Reference Range Interpretation Comments TROPONIN I (BEAKER) (test code = 0.08 ng/mL 0.00-0.03 H 397) LACTIC ACID, VENOUS, WHOLE [id number] 06:45:00 Test Item Value Reference Range Interpretation Comments LACTATE BLOOD VENOUS 0.8 mmol/L 0.5-2.2 Specime n slightly (2) (BEAKER) (test hemolyzed code = 2872) CBC W/PLT COUNT & AUTO [id number] 06:00:00 Test Item Value Reference Range Interpretation [...] PERCENT (BEAKER) (test code = 2801) CALCIUM, [id number] 05:58:00 Test Item Value Reference Range Interpretation Comments CALCIUM IONIZED (BEAKER) (test 1.12 mmol/L 1.12-1.27 code = 698) PH, BLOOD (BEAKER) (test code = 7.39 1810) EOSINOPHIL SMEAR, [id number] 20:17:00 Test Item Value Reference Range Interpretation Comments EOSINOPHIL SMEAR, URINE (BEAKER) No EOS seen No EOS seen (test code = 1851) BASIC METABOLIC [id number] 20:01:00 Test Item Value Reference Range Interpretation [...] DIALYSIS PATIEN TS. LACTIC ACID, VENOUS, WHOLE [id number] 19:59:00 Test Item Value Reference Range Interpretation Comments LACTATE BLOOD VENOUS 0.8 mmol/L 0.5-2.2 Specime n slightly (2) (BEAKER) (test hemolyzed code = 2872) CT, BRAIN/STROKE [id number] 19:59:00Stroke Protocol. Phone/Page MD for reporting.Reason for [...] Fink Verified Date/Time: 07/28/2018 19:59:01 Reading Location: [facility] Radiology Reading Room [id number] 19:51:00 Test Item Value Reference Range Interpretation Comments PARTIAL THROMBOPLASTIN TIME 33.1 seconds 22.5-36.0 (BEAKER) (test code = 760) PROTHROMBIN [id number] 19:50:00 Test Item Value Reference Range Interpretation Comments PROTIME (BEAKER) (test code = 15.6 seconds 11.7-14.7 H 759) INR (BEAKER) (test code = 370) 1.2 <=5.9 RECOMMENDED COUMADIN/WARFARIN INR THERAPY RANGESSTANDARD DOSE: 2.0 - 3.0 Includes: PROPHYLAXIS forvenous thrombosis, systemic embolization; TREATMENT for venous thrombosis and/or pulmonary embolus.HIGH RISK: Target INR is 2.5-3.5 for patients with mechanical heart valves.HEMOGLOBIN AND [id number] 19:41:00 Test Item Value Reference Range Interpretation Comments HEMOGLOBIN (BEAKER) (test code = 11.3 GM/DL 11.2-15.7 410) HEMATOCRIT (BEAKER) (test code = 35.4 % 34.1-44.9 411) CBC W/PLT COUNT & AUTO [id number] 19:41:00 Test Item Value Reference Range Interpretation [...] PERCENT (BEAKER) (test code = 2801) TROPONIN [id number] 19:26:00 Test Item Value Reference Range Interpretation Comments TROPONIN I (BEAKER) (test code = 0.11 ng/mL 0.00-0.03 H 397) PROTEIN, RANDOM [id number] 19:19:00 Test Item Value Reference Range Interpretation Comments PROTEIN, URINE (BEAKER) (test code 325 mg/dL 0-14 H = 1569) POCT-GLUCOSE [id number] 19:00:00 Test Item Value Reference Range Interpretation Comments POC-GLUCOSE METER 158 mg/dL 70-110 H TESTED AT [facility] 6720 (BEAKER) (test code = [place] 1538) [id number] CREATININE, RANDOM [id number] 18:52:00 Test Item Value Reference Range Interpretation Comments CREATININE URINE (BEAKER) (test 95.8 mg/dL code = 375) Reference Range: No NormalsSODIUM, RANDOM [id number] 18:52:00 Test Item Value Reference Range Interpretation Comments SODIUM URINE (BEAKER) (test code = 28 meq/L 243) Reference Range: No NormalsURINALYSIS W/ [id number] 18:02:00 Test Item Value Reference Range Interpretation [...] code Urine, Clean Catch = 2795) POCT-GLUCOSE [id number] 17:21:00 Test Item Value Reference Range Interpretation Comments POC-GLUCOSE METER 137 mg/dL 70-110 H TESTED AT [facility] 6720 (BEAKER) (test code = [place] 1538) [address] BASIC METABOLIC [id number] 17:14:00 Test Item Value Reference Range Interpretation [...] APPLICABLE FOR DIALYSIS PATIEN TS. Call results [id number] ACID, VENOUS, WHOLE [id number] 14:19:00 Test Item Value Reference Range Interpretation Comments LACTATE BLOOD VENOUS (2) (BEAKER) 1.1 mmol/L 0.5-2.2 (test code = 2872) THROMBIN [id number] 13:02:00 Test Item Value Reference Range Interpretation Comments THROMBIN TIME (BEAKER) (test code = 17.8 secs 13.8-20.0 550) [id number] 13:01:00 Test Item Value Reference Range Interpretation Comments PROCALCITONIN (BEAKER) (test code 0.09 ng/mL <0.05 H = 3036) SEPSIS RISK (ng/mL)Low: 0.05-0.50Intermediate: 0.51-2.00High: >=2.011:1 MIXING STUDY, [id number] 12:38:00 Test Item Value Reference Range Interpretation Comments PROTIME (BEAKER) (test code = 15.0 seconds 11.7-14.7 H 759) PARTIAL THROMBOPLASTIN TIME 36.1 seconds 22.5-36.0 H (BEAKER) (test code = 760) PT 1/1 MIX (BEAKER) (test code = 14.4 SECS 11.7-14.7 1595) PTT 1/1 MIX (BEAKER) (test code 35.5 SECS 22.5-36.0 = 1596) TROPONIN [id number] 12:01:00 Test Item Value Reference Range Interpretation Comments TROPONIN I (BEAKER) (test code = 0.13 ng/mL 0.00-0.03 H 397) HCG, QUANTITATIVE, [id number] 11:58:00 Test Item Value Reference Range Interpretation Comments GONADOTROPIN, CHORIONIC (HCG) QUANT < mIU/mL 0-10 (BEAKER) (test code = 649) Non- Females: <10 mIU/mL Females: Gestation Age Reference Range(mIU/mL) 0.2-1 Week 5-50 1-2 Weeks 50-500 2-3 Weeks 100-5,000 3-4Weeks 500-10,000 4-5 Weeks 1,000-50,000 5-6 Weeks 10,000-100,000 6-8 Weeks 15,000-200,000 2-3 Months 10,000-100,[id number] 11:55:00 Test Item Value Reference Range Interpretation Comments LIPASE (BEAKER) (test code = 749) 31 U/L 8-78 [id number] 11:55:00 Test Item Value Reference Range Interpretation Comments AMYLASE (BEAKER) (test code = 349) 101 U/L 25-125 COMPREHENSIVE METABOLIC [id number] 11:55:00 Test Item Value Reference Range Interpretation [...] NOT APPLICABLE FOR DIALYSIS PATIEN TS. C-REACTIVE [id number] 11:55:00 Test Item Value Reference Range Interpretation Comments C-REACTIVE PROTEIN (BEAKER) (test 0.42 mg/dL 0.00-0.50 code = 676) LACTIC ACID, VENOUS, WHOLE [id number] 11:51:00 Test Item Value Reference Range Interpretation Comments LACTATE BLOOD VENOUS 1.5 mmol/L 0.5-2.2 Specime n slightly (2) (BEAKER) (test hemolyzed code = 2872) [id number] 11:44:00 Test Item Value Reference Range Interpretation Comments PARTIAL THROMBOPLASTIN TIME 35.4 seconds 22.5-36.0 (BEAKER) (test code = 760) CBC W/PLT COUNT & AUTO [id number] 11:30:00 Test Item Value Reference Range Interpretation [...] PERCENT (BEAKER) (test code = 2801) POCT-GLUCOSE [id number] 11:20:00 Test Item Value Reference Range Interpretation Comments POC-GLUCOSE METER 167 mg/dL 70-110 H TESTED AT [facility] 6720 (BEAKER) (test code = [place] 1538) [address] HEMOGLOBIN [id number] 11:15:00 Test Item Value Reference Range Interpretation Comments HEMOGLOBIN A1C (BEAKER) (test code = 5.6 % 4.3-6.1 368) PROTHROMBIN [id number] 08:24:00 Test Item Value Reference Range Interpretation Comments PROTIME (BEAKER) (test code = 15.3 seconds 11.7-14.7 H 759) INR (BEAKER) (test code = 370) 1.2 <=5.9 RECOMMENDED COUMADIN/WARFARIN INR THERAPY RANGESSTANDARD DOSE: 2.0 - 3.0 Includes: PROPHYLAXIS forvenous thrombosis, systemic embolization; TREATMENT for venous thrombosis and/or pulmonary embolus.HIGH RISK: Target INR is 2.5-3.5 for patients with mechanical heart valves.RAD, ABDOMEN/KUB, 1 VIEW [id number] 08:13:00Reason for exam:->abdominal painFINAL REPORT INDICATION:Abdominal pain. [...] hip MRI is recommended. Signed: Lionel Ruiz MDReport Verified Date/Time: 07/28 08:13:33 Reading Location: [facility] C013X Ortho Consult Reading Room ONIN [id number] 08:11:00 Test Item Value Reference Range Interpretation Comments TROPONIN I (BEAKER) (test code = 0.05 ng/mL 0.00-0.03 H 397) RAD, CHEST, 1 VIEW, NON [id number] 08:10:00Reason for exam:->chest painShould this be performed at the bedside?->YesFINAL REPORT RAD, CHEST, 1 VIEW, NON DEPT INDICATION: chest pain COMPARISON: Prior day's exam FINDINGS: Portable frontal view of the chest. IMPRESSION: Support Lines: None. Lungs and pleura: Clear lungs. No effusion. No pneumothorax.Heart and mediastinum: Unremarkable contours.Additional findings: None. Signed: JR Maya Robert MDReport Verified Date/Time: 07/28/2018 08:10:51 Reading Location: [facility] Radiology Reading Room BASIC METABOLIC [id number] 08:08:00 Test Item Value Reference Range Interpretation [...] S NOT APPLICABLE FOR DIALYSIS PATIEN TS. [id number] 08:04:00 Test Item Value Reference Range Interpretation Comments LIPASE (BEAKER) (test code = 749) 12 U/L 8-78 HEPATIC FUNCTION [id number] 08:04:00 Test Item Value Reference Range Interpretation [...] (test code = 347) hemolyzed COMPLEMENT COMPONENT [id number] 08:03:00 Test Item Value Reference Range Interpretation Comments C4 COMPLEMENT (BEAKER) (test code = 25 mg/dL 15-57 394) COMPLEMENT COMPONENT [id number] 08:03:00 Test Item Value Reference Range Interpretation Comments C3 COMPLEMENT (BEAKER) (test code = 125 mg/dL 82-193 393) POCT-BLOOD GASES, [id number] 07:57:00 Test Item Value Reference Range Interpretation Comments TEMP, CELSIUS-POC 37.0 (BEAKER) (test code = 1834) FIO2-POC (BEAKER) TESTED AT [facility] 6720 (test code = 1835) [place] [address] PH, ARTERIAL-POC 7.416 7.350-7.450 (BEAKER) (test code [...] L ARTERIAL-POC (BEAKER) (test code = 1841) [id number] 07:57:00 Test Item Value Reference Range Interpretation Comments POC-SODIUM ([facility]) 146 meq/L 135-148 TESTED [place] [address] (test code = 1542) [place] [facility] [address] [id number] 07:57:00 Test Item Value Reference Range Interpretation Comments POC-POTASSIUM 2.7 meq/L 3.6-5.5 L TESTED AT [place] [address] ([facility]) (test code [facility] [address] = 1540) [id number] 07:57:00 Test Item Value Reference Range Interpretation Comments POC-GLUCOSE ([facility]) 176 mg/dL 70-110 H TESTED AT [place] [address] (test code = 1855) [facility] [address] POCT-CALCIUM [id number] 07:57:00 Test Item Value Reference Range Interpretation Comments POC-CALCIUM IONIZED 1.15 mmol/L 1.12-1.27 TESTED A [place] [address] ([facility]) (test code = [facility] 1537) [address] [id number] 07:57:00 Test Item Value Reference Range Interpretation Comments POC-HEMATOCRIT 38 % 36-45 TESTED AT [place] [address] ([facility]) (test code = [facility] [address] 1437) [id number] 07:57:00 Test Item Value Reference Range Interpretation Comments POC-HEMOGLOBIN 12.9 g/dL 12.0-15.0 TESTED AT [place] [address] ([facility]) (test code [facility] = 1856) [id number] AT [place] [address] [place] [facility] [address] POCT-LACTIC ACID, [id number] 07:57:00 Test Item Value Reference Range Interpretation Comments POC-LACTIC ACID, 3.3 mmol/L 0.9-1.7 H TESTED AT [facility] 6720 VENOUS (BEAKER) (test [place] code = 2805) [address] CBC W/PLT COUNT & AUTO [id number] 07:47:00 Test Item Value Reference Range Interpretation [...]
[2021-11-19] MEDS ORDERED: HYDROMORPHONE HCL 1 MG/ML INJ ONE (05:31)
[2021-11-19] MEDS ORDERED: FAMOTIDINE 20 MG/2 ML VIAL IV ONE (05:31)
[2021-11-19] MEDS ORDERED: ONDANSETRON 4 MG/2 ML VIAL ONE (05:31)
[2021-11-19 05:40] LABS: Absolute Lymphocytes (CBC) 1.5 K/uL (0.7-4.9); Hematocrit 36.8 % (36.0-45.0); Lymphocytes % 18.4 % (15.3-44.8); MPV 7.2 fL (7.6-11.3); RBC Red Blood Cell Count 4.47 M/uL (3.86-4.86)
[2021-11-19 05:55] LABS: Albumin 3.5 g/dL (3.4-5.0); Bilirubin Direct 0.1 mg/dL (0-0.2); Bilirubin Total 0.4 mg/dL (0.2-1.0); Protein, Total 8.2 g/dL (6.4-8.2); Troponin High Sensitivity 35.6 pg/mL (<58.9)
[2021-11-19 05:58] LABS: Magnesium 2.2 mg/dL (1.8-2.4); Potassium 3.6 mmol/L (3.5-5.1)
[2021-11-19] MEDS ORDERED: HYDRALAZINE HCL 20 MG/ML VIAL ONE (06:05)
[2021-11-19] MEDS ORDERED: HYDRALAZINE HCL 25 MG TABLET ONE (06:05)
[2021-11-19] MEDS ORDERED: LABETALOL HCL 100 MG TAB ONE (06:05)
--- NOTE | 2021-11-19 06:07 | EDPHYS ---
Physician Documentation [facility] Name: Babs Younger Age: 51 yrs Sex: Female : 1970 Arrival Date: 11/19/2021 Time: 04:07 Bed 7 Private MD: Christiano Méndez HPI: 11/19 05:25 This 51 yrs old Black Female presents to ER via Ambulatory with complaints of Leg Pain, logan Numbness Of Arm, Breathing Difficulty. 05:25 The patient presents with decreased range of motion, pain, that is acute. The logan complaints affect the right leg and left leg. Context: The problem was sustained at home, resulted from an unknown cause. Onset: The symptoms/episode began/occurred 1 day(s) ago. Modifying factors: The symptoms are alleviated by nothing. the symptoms are aggravated by movement, weight bearing. Associated signs and symptoms: Pertinent positives: weakness. Treatment prior to arrival includes: no previous treatment. The patient has experienced similar episodes in the past, multiple times. 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 N/A - Post-menopause lp1 Historical: - Allergies: 04:27 Morphine; lp1 04:27 SHELLFISH; lp1 - Home Meds: 04:27 amlodipine 10 mg tab 1 tab once daily [Active]; CellCept 500 mg Oral tab 2 tabs 2 times lp1 per day [Active]; clonidine HCl 0.3 mg Oral tab 1 tab three times a day [Active]; doxazosin 4 mg Oral tab 1 tab once daily [Active]; gabapentin 400 mg Oral cap 1 cap as needed [Active]; metoprolol tartrate 100 mg Oral tab 1 tab 2 times per day [Active]; hydralazine 50 mg Oral tab 1 tab three times a day [Active]; - PMHx: 04:27 bowel obstruction; Diabetes - IDDM; ESRD; Hypertension; Lupus; Renal Disease; Seizures; lp1 - PSHx: 04:27 Colostomy Reversal; lp1 - Immunization history:: Adult Immunizations up to date. - Social history:: Smoking status: Patient denies any tobacco usage or history of. - Family history:: not pertinent. - Hospitalizations: : No recent hospitalization is reported. ROS: 05:25 Constitutional: Negative for fever, chills, and weight loss, Eyes: Negative for injury, logan pain, redness, and discharge, ENT: Negative for injury, pain, and discharge, Neck: Negative for injury, pain, and swelling, Cardiovascular: Negative for chest pain, palpitations, and edema, Respiratory: Negative for shortness of breath, cough, wheezing, and pleuritic chest pain, Abdomen/GI: Negative for abdominal pain, nausea, vomiting, diarrhea, and constipation, Back: Negative for injury and pain, : Negative for injury, bleeding, discharge, and swelling, Skin: Negative for injury, rash, and discoloration, Neuro: Negative for headache, weakness, numbness, tingling, and seizure, Psych: Negative for depression, anxiety, suicide ideation, homicidal ideation, and hallucinations, Allergy/Immunology: Negative for hives, rash, and allergies, Endocrine: Negative for neck swelling, polydipsia, polyuria, polyphagia, and marked weight changes, Hematologic/Lymphatic: Negative for swollen nodes, abnormal bleeding, and unusual bruising. 05:25 MS/extremity: Positive for pain, of the right arm, left arm, right leg and left leg. Exam: 05:25 Constitutional: This is a well developed, well nourished patient who is awake, alert, logan and in no acute distress. Head/Face: Normocephalic, atraumatic. Eyes: Pupils equal round and reactive to light, extra-ocular motions intact. Lids and lashes normal. Conjunctiva and sclera are non-icteric and not injected. Cornea within normal limits. Periorbital areas with no swelling, redness, or edema. ENT: Nares patent. No nasal discharge, no septal abnormalities noted. Tympanic membranes are normal and external auditory canals are clear. Oropharynx with no redness, swelling, or masses, exudates, or evidence of obstruction, uvula midline. Mucous membranes moist. Neck: Trachea midline, no thyromegaly or masses palpated, and no cervical lymphadenopathy. Supple, full range of motion without nuchal rigidity, or vertebral point tenderness. No Meningismus. Chest/axilla: Normal chest wall appearance and motion. Nontender with no deformity. No lesions are appreciated. Cardiovascular: Regular rate and rhythm with a normal S1 and S2. No gallops, murmurs, or rubs. Normal PMI, no JVD. No pulse deficits. Respiratory: Lungs have equal breath sounds bilaterally, clear to auscultation and percussion. No rales, rhonchi or wheezes noted. No increased work of breathing, no retractions or nasal flaring. Abdomen/GI: Soft, non-tender, with normal bowel sounds. No distension or tympany. No guarding or rebound. No evidence of tenderness throughout. Back: No spinal tenderness. No costovertebral tenderness. Full range of motion. Skin: Warm, dry with normal turgor. Normal color with no rashes, no lesions, and no evidence of cellulitis. MS/ Extremity: Pulses equal, no cyanosis. Neurovascular intact. Full, normal range of motion. Neuro: Awake and alert, GCS 15, oriented to person, place, time, and situation. Cranial nerves II-XII grossly intact. Motor strength 5/5 in all extremities. Sensory grossly intact. Cerebellar exam normal. Normal gait. Psych: Awake, alert, with orientation to person, place and time. Behavior, mood, and affect are within normal limits. 05:25 ECG was reviewed by the Attending Physician. Vital Signs: 04:25 BP 223 / 122; Pulse 99; Resp 19; Temp 98.4(O); Pulse Ox 99% on R/A; Weight 79.83 kg lp1 (R); Height 5 ft. 2 in. (157.48 cm); Pain 10/10; 05:20 BP 229 / 112; Pulse 81; Resp 14 S; Pulse Ox 100% on R/A; lg3 06:00 BP 205 / 107; Pulse 85; Resp 18 S; Pulse Ox 100% on R/A; lg3 06:40 BP 199 / 100; Pulse 87; Resp 12 S; Pulse Ox 100% on R/A; lg3 08:05 BP 171 / 90; Pulse 84; Resp 15; Pulse Ox 100% ; vg1 04:25 Body Mass Index 32.19 (79.83 kg, 157.48 cm) lp1 MDM: 04:21 Patient medically screened. [facility] 05:27 Data reviewed: vital signs, nurses notes, lab test result(s), EKG, radiologic studies, logan plain films. 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 Test interpretation: by ED physician or midlevel provider: ECG, plain radiologic studies. Counseling: I had a detailed discussion with the patient and/or guardian regarding: the historical points, exam findings, and any diagnostic results supporting the discharge/admit diagnosis, the presence of at least one elevated blood pressure reading (>120/80) during this emergency department visit, lab results, radiology results, the need for further work-up and treatment in the hospital. 11/19 04:25 Order name: Basic Metabolic Panel; Complete Time: 06:01 [facility] 11/19 04:25 Order name: CBC with Diff; Complete Time: 06:01 [facility] 11/19 04:25 Order name: LFT's; Complete Time: 06:01 [facility] 11/19 04:25 Order name: Magnesium; Complete Time: 06:01 [facility] 11/19 04:25 Order name: NT PRO-BNP; Complete Time: 06:01 [facility] 11/19 04:25 Order name: PT-INR; Complete Time: 07:08 [facility] 11/19 04:25 Order name: Troponin HS; Complete Time: 06:01 [facility] 11/19 04:25 Order name: SARS-COV-2 RT PCR (Document "Date of Onset" if Symptomatic); Complete Time: [facility] 07:11/19 04:25 Order name: Lipase; Complete Time: 06:01 [facility] 11/19 04:35 Order name: Type And Screen lg3 11/19 08:00 Order name: CBC with Automated Diff EDVT 11/19 08:00 Order name: CBC with Automated Diff EDVT 11/19 08:00 Order name: Comprehensive Metabolic Panel EDVT 11/19 08:00 Order name: Comprehensive Metabolic Panel EDVT 11/19 04:25 Order name: XRAY Chest (1 view) [facility] 11/19 04:25 Order name: EKG; Complete Time: 04:27 [facility] 11/19 04:25 Order name: Cardiac monitoring; Complete Time: 05:01 [facility] 11/19 04:25 Order name: EKG - Nurse/Tech; Complete Time: 05:01 [facility] 11/19 04:25 Order name: IV Saline Lock; Complete Time: 05:42 [facility] 11/19 04:25 Order name: Labs collected and sent; Complete Time: 06:17 [facility] 11/19 04:25 Order name: O2 Per Protocol; Complete Time: 05:01 [facility] 11/19 08:00 Order name: CONS Physician Consult EDVT 11/19 08:00 Order name: Renal EDVT 11/19 04:25 Order name: O2 Sat Monitoring; Complete Time: 05:01 logan EC:25 Rate is 86 beats/min. Rhythm is regular. QRS [place] is Normal. [place] interval is normal. QRS logan interval is normal. QT interval is normal. No Q waves. T waves are Normal. No ST changes noted. Clinical impression: NSR w/ Non-specific ST/T Changes and No evidence of ischemia. Interpreted by me. Reviewed by me. Administered Medications: 05:41 Drug: Pepcid (famotidine) 20 mg Route: IVP; Site: right hand; lg3 05:42 Follow up: Response: No adverse reaction lg3 05:41 Drug: Dilaudid (HYDROmorphone) 1 mg Route: IVP; Site: right hand; lg3 05:41 Follow up: Response: No adverse reaction; RASS: Alert and Calm (0) lg3 05:41 Drug: Zofran (Ondansetron) 4 mg Route: IVP; Site: right hand; lg3 05:41 Follow up: Response: No adverse reaction lg3 06:15 Drug: Labetalol 100 mg Route: PO; lg3 06:16 Follow up: Response: No adverse reaction lg3 06:15 Drug: hydrALAZINE 20 mg Route: IVP; Site: right hand; lg3 06:16 Follow up: Response: No adverse reaction lg3 06:15 Drug: HydrALAZINE 50 mg Route: PO; lg3 06:16 Follow up: Response: No adverse reaction lg3 06:16 Not Given (Patient Refused): Labetalol 20 mg IVP once over 2 mins lg3 Disposition Summary: 11/19/21 06:06 Hospitalization Ordered Hospitalization Status: Observation logan Provider: Maurice Bright cha Location: Telemetry/MedSurg (observation) logan Condition: Fair logan Problem: new logan Symptoms: have improved logan Bed/Room Type: Standard logan Room Assignment: 203(11/19/21 08:17) ss Diagnosis - Essential (primary) hypertension logan - Systemic lupus erythematosus, unspecified logan - Unspecified kidney failure logan - Obesity, unspecified logan - Muscle weakness (generalized) logan Forms: - Medication Reconciliation Form logan - SBAR form logan Signatures: Dispatcher [employer] Christiano Friedman MD MD cha Smirch, Shelby RN RN ss Lucia Turcios RN RN lp1 Soto, Meghna, RN RN lg3 Corrections: (The following items were deleted from the chart) 08:17 06:06 logan ss
--- NOTE | 2021-11-19 06:07 | ER ---
Nurse's Notes [facility] Juan Manuel Name: Babs Younger Age: 51 yrs Sex: Female : 1970 Arrival Date: 11/19/2021 Time: 04:07 Bed 7 Private MD: Diagnosis: Essential (primary) hypertension;Systemic lupus erythematosus, unspecified;Unspecified kidney failure;Obesity, unspecified;Muscle weakness (generalized) Presentation: 11/19 04:25 Chief complaint: Patient states: Reports feeling weak, generalized pain, shortness of lp1 breath with exertion; States labs drawn on 10/26 and Hgb was 5.7. Coronavirus screen: At this time, the client does not indicate any symptoms associated with coronavirus-19. Ebola Screen: No symptoms or risks identified at this time. Initial Sepsis Screen: Does the patient meet any 2 criteria? No. Patient's initial sepsis screen is negative. Does the patient have a suspected source of infection? No. Patient's initial sepsis screen is negative. Risk Assessment: Do you want to hurt yourself or someone else? Patient reports no desire to harm self or others. Onset of symptoms was November 19, 2021. 04:25 Method Of Arrival: Ambulatory lp1 04:25 Acuity: ELVA 2 lp1 Triage Assessment: 05:51 General: Appears in no apparent distress. uncomfortable, Behavior is calm, cooperative. lg3 Respiratory: Onset: The symptoms/episode began/occurred at an unknown time. the patient has moderate shortness of breath. Respiratory: No deficits noted. 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 LMP N/A - Post-menopause lp1 Historical: - Allergies: 04:27 Morphine; lp1 04:27 SHELLFISH; lp1 - Home Meds: 04:27 amlodipine 10 mg tab 1 tab once daily [Active]; CellCept 500 mg Oral tab 2 tabs 2 times lp1 per day [Active]; clonidine HCl 0.3 mg Oral tab 1 tab three times a day [Active]; doxazosin 4 mg Oral tab 1 tab once daily [Active]; gabapentin 400 mg Oral cap 1 cap as needed [Active]; metoprolol tartrate 100 mg Oral tab 1 tab 2 times per day [Active]; hydralazine 50 mg Oral tab 1 tab three times a day [Active]; - PMHx: 04:27 bowel obstruction; Diabetes - IDDM; ESRD; Hypertension; Lupus; Renal Disease; Seizures; lp1 - PSHx: 04:27 Colostomy Reversal; lp1 - Immunization history:: Adult Immunizations up to date. - Social history:: Smoking status: Patient denies any tobacco usage or history of. - Family history:: not pertinent. - Hospitalizations: : No recent hospitalization is reported. Screenin:42 Abuse screen: Denies threats or abuse. Denies injuries from another. Nutritional lg3 screening: No deficits noted. Tuberculosis screening: No symptoms or risk factors identified. Fall Risk None identified. Assessment: 05:42 General: Appears in no apparent distress. uncomfortable, Behavior is calm, cooperative. lg3 Pain: Complains of pain in generalized. Neuro: No deficits noted. Level of Consciousness is awake, alert, obeys commands, Oriented to person, place, time, situation. Cardiovascular: Denies chest pain, Rhythm is regular. Respiratory: No deficits noted. Airway is patent Trachea midline Respiratory effort is even, unlabored, Respiratory pattern is regular, symmetrical, Breath sounds are clear bilaterally. GI: Reports epigastric pain, nausea. : No deficits noted. No signs and/or symptoms were reported regarding the genitourinary system. EENT: No deficits noted. No signs and/or symptoms were reported regarding the EENT system. Derm: Skin with poor turgor Skin is dry, abdominal scarring noted. Musculoskeletal: No deficits noted. No signs and/or symptoms reported regarding the musculoskeletal system. Circulation, motion, and sensation intact. Capillary refill < 3 seconds, Range of motion: intact in all extremities. 06:28 Reassessment: Patient appears in no apparent distress at this time. No changes from lg3 previously documented assessment. Patient and/or family updated on plan of care and expected duration. Pain level reassessed. Patient is alert, oriented x 3, equal unlabored respirations, skin warm/dry/pink. 06:45 General: pt refused use of IV to right hand and requested for iv to be removed. IV lg3 removed intact. pressure dressing applied. no IV access at this time . 07:15 General: Appears in no apparent distress. uncomfortable, Behavior is calm, cooperative. vg1 Pain: Complains of pain in generalized body Pain currently is 9 out of 10 on a pain scale. Neuro: Level of Consciousness is awake, alert, obeys commands, Oriented to person, place, time, situation. Cardiovascular: Denies chest pain, Patient's skin is warm and dry. Respiratory: Airway is patent Respiratory effort is even, unlabored. GI: No signs and/or symptoms were reported involving the gastrointestinal system. : No signs and/or symptoms were reported regarding the genitourinary system. EENT: No signs and/or symptoms were reported regarding the EENT system. Derm: Skin is intact, Skin is dry. Musculoskeletal: Circulation, motion, and sensation intact. Vital Signs: 04:25 BP 223 / 122; Pulse 99; Resp 19; Temp 98.4(O); Pulse Ox 99% on R/A; Weight 79.83 kg lp1 (R); Height 5 ft. 2 in. (157.48 cm); Pain 10/10; 05:20 BP 229 / 112; Pulse 81; Resp 14 S; Pulse Ox 100% on R/A; lg3 06:00 BP 205 / 107; Pulse 85; Resp 18 S; Pulse Ox 100% on R/A; lg3 06:40 BP 199 / 100; Pulse 87; Resp 12 S; Pulse Ox 100% on R/A; lg3 08:05 BP 171 / 90; Pulse 84; Resp 15; Pulse Ox 100% ; vg1 04:25 Body Mass Index 32.19 (79.83 kg, 157.48 cm) lp1 ED Course: 04:07 Patient arrived in ED. ja2 04:12 Reba Perez, LUIS is Primary Nurse. kd3 04:21 Christiano Elizondo MD is Attending Physician. logan 04:27 Triage completed. lp1 04:27 Arm band placed on. lp1 04:40 XRAY Chest (1 view) In Process Unspecified. EDMS 04:42 Patient has correct armband on for positive identification. Placed in gown. Bed in low lp1 position. phototypesetting equipment monitor on. Pulse ox on. NIBP on. 05:15 Inserted saline lock: 22 gauge in right hand, using aseptic technique. Blood collected. lp1 05:42 SARS-COV-2 RT PCR (Document "Date of Onset" if Symptomatic) Sent. lg3 05:42 Inserted saline lock: 22 gauge in right hand, using aseptic technique. Blood collected. lg3 06:02 Maurice Bright MD is Hospitalizing Provider. logan 06:21 SARS-COV-2 RT PCR (Document "Date of Onset" if Symptomatic) Sent. lg3 06:52 Type And Screen Sent. lg3 06:52 PT-INR Sent. lg3 07:59 Inserted saline lock: 22 gauge in right antecubital area, using aseptic technique. ss ,using aseptic technique. Insertion VIA US guided. Blood collected. 08:33 No provider procedures requiring assistance completed. vg1 08:37 Patient admitted, IV remains in place. vg1 Administered Medications: 05:41 Drug: Pepcid (famotidine) 20 mg Route: IVP; Site: right hand; lg3 05:42 Follow up: Response: No adverse reaction lg3 05:41 Drug: Dilaudid (HYDROmorphone) 1 mg Route: IVP; Site: right hand; lg3 05:41 Follow up: Response: No adverse reaction; RASS: Alert and Calm (0) lg3 05:41 Drug: Zofran (Ondansetron) 4 mg Route: IVP; Site: right hand; lg3 05:41 Follow up: Response: No adverse reaction lg3 06:15 Drug: Labetalol 100 mg Route: PO; lg3 06:16 Follow up: Response: No adverse reaction lg3 06:15 Drug: hydrALAZINE 20 mg Route: IVP; Site: right hand; lg3 06:16 Follow up: Response: No adverse reaction lg3 06:15 Drug: HydrALAZINE 50 mg Route: PO; lg3 06:16 Follow up: Response: No adverse reaction lg3 06:16 Not Given (Patient Refused): Labetalol 20 mg IVP once over 2 mins lg3 Outcome: 06:06 Decision to Hospitalize by Provider. logan 08:37 Admitted to Tele accompanied by tech, via wheelchair, room 203, with chart, Report vg1 called to JAYDEN RN 08:37 Condition: good 08:37 Instructed on the need for admit. 09:04 Patient left the ED. vg1 Signatures: Dispatcher [employer] EDChristiano Saxena MD MD cha Smirch, Shelby RN RN ss Lucia Turcios, RN RN lp1 Meghna Soto RN RN lg3 Melissa Simons RN RN vg1 Major, Reina ja2 Ana, Reba, RN RN kd3
[2021-11-19] MEDS ORDERED: LABETALOL HCL 100 MG/20 ML ONE (06:09)
[2021-11-19 07:06] LABS: Protime INR 1.01
--- NOTE | 2021-11-19 07:41 | EKG ---
Test Date: 2021-11-19 Test Time: 04:42:31 Pot Tender: CONSTANZA MEASUREMENT RESULTS: Intervals: Rate: 86 MS: 212 QRSD: 88 QT: 422 QTc: 504 [place]: P: 77 MS: 212 QRS: 7 T: 109 INTERPRETIVE STATEMENTS: Sinus rhythm with 1st degree AV block Biatrial enlargement Left ventricular hypertrophy T wave abnormality, consider lateral ischemia Prolonged QT Abnormal ECG Compared to ECG 04/27/2021 03:35:56 First degree AV block now present Atrial abnormality now present T-wave abnormality now present Possible ischemia now present Early repolarization no longer present Electronically Signed On 11-19-21 07:41:12 CDT by Jesse Jaime
[2021-11-19] MEDS ORDERED: ACETAMINOPHEN 500 MG TAB PO PRN (07:49)
--- NOTE | 2021-11-19 07:58 | P.HP ---
Certification for Inpatient Patient admitted to: Inpatient With expected LOS: >2 Midnights Patient will require the following post-hospital care: None Practitioner: I am a practitioner with admitting privileges, knowledge of patient current condition, hospital course, and medical plan of care. Services: Services provided to patient in accordance with Admission requirements found in Title 42 Section 412.3 of the Code of Federal Regulations Patient History Date of Service: 11/19/21 Allergies morphine Allergy (Severe, Verified 09/07/17 09:12) Unknown Home Medications: Hydralazine HCl 100 mg PO TID 07/09/15 Metoprolol Tartrate 100 mg PO BID 07/09/15 cloNIDine HCL [Clonidine HCl] 0.3 mg PO BID 07/09/15 Amlodipine [Norvasc*] 10 mg PO DAILY 08/08/15 Doxazosin [Cardura*] 4 mg PO DAILY 09/07/17 Gabapentin 300 mg PO DAILY PRN 09/07/17 Hydroxychloroquine [Plaquenil*] 200 mg PO BID 09/07/17 Zolpidem Tartrate [Ambien] 10 mg PO BEDTIME PRN PRN 09/07/17 Mycophenolate Mofetil [Cellcept] 2 tab PO BID 08/02/19 Furosemide [Lasix*] 1 tab PO BID 08/30/20 Ondansetron [Zofran (Odt)*] 1 tab PO DAILY PRN 08/30/20 Alprazolam [Xanax] 2 tab PO DAILY 04/25/21 Na Bicarb Tab [Sodium Bicarb 325 MG Tab*] 650 mg PO DAILY 04/25/21 - Past Medical/Surgical History Diabetic: No -: Lupus, Rheumatology-Dr. Rothman -: HTN -: Seizure disorder -: History of Small bowel obstruction -: Ileostomy in place -: CAD -: History of avascular necrosis -: History of pyelonephritis -: Depression with history of suicidal ideation -: depression -: -: Hysterectomy -: Bowel resection -: Colostomy -: trach (reversed) -: Removal of colostomy now with ileostomy Psychosocial/ Personal History: single, one child. - Family History Sister Notes: lupus Father Medical History: Kidney disease Notes: Mother Medical History: Hypertension, Cancer Notes: , uterine Brother Medical History: Hypertension, Diabetes - Social History Alcohol use: No CD- Drugs: No Caffeine use: Yes Physical Examination - Studies Laboratory Data (last 24 hrs) 11/19/21 06:50: PT 11.1, INR 1.01 11/19/21 05:15: WBC 8.40, Hgb 12.1, Hct 36.8, Plt Count 290 11/19/21 05:15: Sodium 140, Potassium 3.6, BUN 45 H, Creatinine 2.21 H, Glucose 89, Magnesium 2.2, Total Bilirubin 0.4, AST 21, ALT 28, Alkaline Phosphatase 172 H, Lipase 116 Assessment & Plan - Advance Directives Does patient have a Living Will: No Does patient have a Durable POA for Healthcare: No
--- NOTE | 2021-11-19 09:21 | P.CNS ---
Date of Consult: 11/19/21 Reason for Consult: CKD Requesting Physician: Maurice Bright Primary Care Provider: Nephrology-Dr. Jean-Baptiste Chief Complaint: Leg pain History of Present Illness: 05:25 This 51 yrs old Black Female presents to ER via Ambulatory with complaints of Leg Pain, logan Numbness Of Arm, Breathing Difficulty. 05:25 The patient presents with decreased range of motion, pain, that is acute. The logan complaints affect the right leg and left leg. Context: The problem was sustained at home, resulted from an unknown cause. Onset: The symptoms/episode began/occurred 1 day(s) ago. Modifying factors: The symptoms are alleviated by nothing. the symptoms are aggravated by movement, weight bearing. Associated signs and symptoms: Pertinent positives: weakness. Treatment prior to arrival includes: no previous treatment. The patient has experienced similar episodes in the past, multiple times. Allergies morphine Allergy (Severe, Verified 09/07/17 09:12) Unknown Home medications list reviewed: Yes Home Medications: Hydralazine HCl 100 mg PO TID 07/09/15 Metoprolol Tartrate 100 mg PO BID 07/09/15 cloNIDine HCL [Clonidine HCl] 0.6 mg PO TID 07/09/15 Amlodipine [Norvasc*] 10 mg PO DAILY 08/08/15 Doxazosin [Cardura*] 4 mg PO DAILY 09/07/17 Gabapentin 300 mg PO TID 09/07/17 Hydroxychloroquine [Plaquenil*] 200 mg PO BID 09/07/17 Zolpidem Tartrate [Ambien] 10 mg PO BEDTIME PRN PRN 09/07/17 Mycophenolate Mofetil [Cellcept] 2 tab PO BID 08/02/19 Furosemide [Lasix*] 1 tab PO BID 08/30/20 Ondansetron [Zofran (Odt)*] 1 tab PO DAILY PRN 08/30/20 Alprazolam [Xanax] 1 tab PO BID 04/25/21 Na Bicarb Tab [Sodium Bicarb 325 MG Tab*] 650 mg PO BID 04/25/21 calcitrioL [Rocaltrol] 0.25 mcg PO Q48H 11/19/21 - Past Medical/Surgical History Diabetic: No -: Lupus, Rheumatology-Dr. Rothman -: HTN -: Seizure disorder -: History of Small bowel obstruction -: Ileostomy in place -: CAD -: History of avascular necrosis -: History of pyelonephritis -: Depression with history of suicidal ideation -: depression -: CKD, Lupus Nephritis followed by Dr. Jean-Baptiste -: -: Hysterectomy -: Bowel resection -: Colostomy -: trach (reversed) -: Removal of colostomy now with ileostomy Psychosocial/ Personal History: single, one child. - Family History Sister Notes: lupus Father Medical History: Kidney disease Notes: Mother Medical History: Hypertension, Cancer Notes: , uterine Brother Medical History: Hypertension, Diabetes - Social History Smoking Status: Unknown if ever smoked Alcohol use: No CD- Drugs: No Caffeine use: Yes Review of Systems 10-point ROS is otherwise unremarkable General: Weakness, Malaise Musculoskeletal: Leg Pain Neurological: Weakness Physical Examination General: Oriented x3, Cooperative, Moderate distress HEENT: Atraumatic Neck: Supple Respiratory: Clear to auscultation bilaterally Cardiovascular: No edema, Regular rate/rhythm Gastrointestinal: Soft and benign, Non-distended Musculoskeletal: No clubbing, No contractures Integumentary: No rashes, No cyanosis Neurological: Normal speech Laboratory Data (last 24 hrs) 11/19/21 06:50: PT 11.1, INR 1.01 11/19/21 05:15: WBC 8.40, Hgb 12.1, Hct 36.8, Plt Count 290 11/19/21 05:15: Sodium 140, Potassium 3.6, BUN 45 H, Creatinine 2.21 H, Glucose 89, Magnesium 2.2, Total Bilirubin 0.4, AST 21, ALT 28, Alkaline Phosphatase 172 H, Lipase 116 Imagings Data: EXAM DESCRIPTION: RAD - Chest Single View - 11/19/2021 4:39 am CLINICAL HISTORY: The patient is 51 years old and is Female; CHEST PAIN TECHNIQUE: Frontal view of the chest. COMPARISON: No relevant prior studies available. FINDINGS: Lungs: Prominent pulmonary vasculature and interstitial markings. No consolidation. Pleural space: Unremarkable. No pneumothorax. Heart: Unremarkable. Mediastinum: Unremarkable. Bones/joints: Unremarkable. IMPRESSION: Prominent pulmonary vasculature and interstitial markings. No con solidation. Conclusions/Impression: CKD IIIb/IV Lupus nephritis -No NSAIDs -Restart Cellcept Acidosis -Continue oral bicarb HTN with CKD -Labetolol and Hydralazine prn -Restart home antihypertensives LE Edema -Continue furosemide SLE BL Knee Pain -Continue Plaquenil -Continue Cellcept -Solumedrol X1 dose Seizure-like episode with anxiety -Ativian IV X1 -Dilaudid IV X1 Thank you kindly for the consultation.
[2021-11-19 09:37] VITALS: O2SAT 100
[2021-11-19] MEDS ORDERED: LORazepam 2 MG/ML VIAL ONE (10:20)
[2021-11-19] MEDS ORDERED: LORazepam 2 MG/ML VIAL IV ONE (10:21)
[2021-11-19] MEDS ORDERED: METOPROLOL TARTRATE 5 MG/5 ML INJ IV PRN (10:23)
[2021-11-19] MEDS ORDERED: LABETALOL 20 MG/4ML SYRINGE IV PRN (10:25)
[2021-11-19] MEDS: HYDROMORPHONE HCL 1 MG/ML INJ IV PRN ×3 (10:25→19:50)
[2021-11-19] MEDS ORDERED: METHYLPREDNISOLONE 125 MG INJ IV ONE (10:38)
[2021-11-19] MEDS: DOXAZOSIN 4 MG TAB PO SCH (11:37)
[2021-11-19] MEDS: METOPROLOL XL 100 MG TAB PO SCH ×2 (11:37→21:00)
[2021-11-19] MEDS: AMLODIPINE 10 MG TAB PO SCH (11:38)
[2021-11-19] MEDS: NA CHLORIDE 0.9% 1,000 ML IV SCH (11:39)
[2021-11-19] MEDS: ONDANSETRON 4 MG/2 ML VIAL IV PRN (11:48)
[2021-11-19 13:56] VITALS: BMI 32.1
[2021-11-19] MEDS ORDERED: HYDRALAZINE HCL 25 MG TABLET PO SCH (14:00)
[2021-11-19] MEDS: CLONIDINE HCL 0.3 MG TAB PO SCH ×2 (15:04→21:57)
[2021-11-19] MEDS ORDERED: ZOLPIDEM TARTRATE 10 MG TABLET PO PRN (18:04)
[2021-11-19] MEDS: HYDRALAZINE HCL 20 MG/ML VIAL IV PRN (18:20)
--- NOTE | 2021-11-19 20:42 | RAD REPORT ---
EXAM DESCRIPTION: RAD - Chest Single View - 11/19/2021 4:39 am CLINICAL HISTORY: The patient is 51 years old and is Female; CHEST PAIN TECHNIQUE: Frontal view of the chest. COMPARISON: No relevant prior studies available. FINDINGS: Lungs: Prominent pulmonary vasculature and interstitial markings. No consolidation. Pleural space: Unremarkable. No pneumothorax. Heart: Unremarkable. Mediastinum: Unremarkable. Bones/joints: Unremarkable. IMPRESSION: Prominent pulmonary vasculature and interstitial markings. No consolidation. Electronically signed by: Juan Jones MD 11/19/2021 5:03 AM CDT Due to temporary technical issues with the PACS/Fluency reporting system, reports are being signed by the in house radiologists without review as a courtesy to insure prompt reporting. The interpreting radiologist is fully responsible for the content of the report.
[2021-11-19] MEDS ORDERED: GABAPENTIN 300 MG CAP PO SCH (21:00)
[2021-11-19] MEDS: MYCOPHENOLATE MOFETIL 500 MG PO SCH (21:00)
[2021-11-19] MEDS ORDERED: FUROSEMIDE 20 MG TABLET PO SCH (21:00)
[2021-11-19] MEDS: ALPRAZOLAM 0.5 MG TABLET PO SCH (21:00)
[2021-11-19] MEDS: HYDRALAZINE HCL 25 MG TABLET PO SCH (21:58)
[2021-11-19] MEDS: HYDROXYCHLOROQUINE 200MG TAB PO SCH (21:58)
[2021-11-19] MEDS: GABAPENTIN 300 MG CAP PO SCH (21:59)
[2021-11-19] MEDS: METOPROLOL TAR 50 MG TAB PO SCH (21:59)
[2021-11-20] MEDS: HYDROMORPHONE HCL 1 MG/ML INJ IV PRN ×2 (00:05→04:31)
[2021-11-20] MEDS: HYDRALAZINE HCL 20 MG/ML VIAL IV PRN (04:31)
[2021-11-20] MEDS: NA CHLORIDE 0.9% 1,000 ML IV SCH (04:36)
[2021-11-20] MEDS: ONDANSETRON 4 MG/2 ML VIAL IV PRN (06:22)
[2021-11-20 06:36] LABS: Absolute Lymphocytes (CBC) 0.5 K/uL (0.7-4.9); Hematocrit 33.8 % (36.0-45.0); Lymphocytes % 9.1 % (15.3-44.8)
[2021-11-20 06:58] LABS: ALT/SGPT 24 U/L (12-78); AST/SGOT 15 U/L (15-37); Albumin 3.2 g/dL (3.4-5.0); Alkaline Phosphatase 136 U/L (45-117); BUN Blood Urea Nitrogen 42 mg/dL (7-18); Bicarbonate 21 mmol/L (21-32); Bilirubin Total 0.5 mg/dL (0.2-1.0); Glucose Level 118 mg/dL (74-106); Protein, Total 7.5 g/dL (6.4-8.2); Sodium Level 137 mmol/L (136-145)
[2021-11-20 07:01] LABS: C-Reactive Protein < 2.90 mg/L (<3.00)
[2021-11-20 07:22] LABS: Folic Acid, (Folate) 9.7 ng/mL (3.1-17.5); Magnesium 2.3 mg/dL (1.8-2.4)
[2021-11-20 08:37] VITALS: BP 192/83; TEMP 97.9
[2021-11-20] MEDS ORDERED: SODIUM BICARB 325 MG TAB PO SCH (09:00)
[2021-11-20] MEDS: MYCOPHENOLATE MOFETIL 500 MG PO SCH (09:00)
[2021-11-20] MEDS: DOXAZOSIN 4 MG TAB PO SCH (09:00)
[2021-11-20] MEDS ORDERED: DOXAZOSIN 2 MG TAB ONE (09:24)
[2021-11-20] MEDS: HYDROXYCHLOROQUINE 200MG TAB PO SCH (09:30)
[2021-11-20] MEDS: CLONIDINE HCL 0.3 MG TAB PO SCH (09:30)
[2021-11-20] MEDS: METOPROLOL TAR 50 MG TAB PO SCH (09:31)
[2021-11-20] MEDS: ALPRAZOLAM 0.5 MG TABLET PO SCH (09:31)
[2021-11-20] MEDS: GABAPENTIN 300 MG CAP PO SCH (09:32)
[2021-11-20] MEDS: AMLODIPINE 10 MG TAB PO SCH (09:32)
[2021-11-20] MEDS: HYDRALAZINE HCL 25 MG TABLET PO SCH (09:33)
== END 2021-11-20 10:10 | disposition home or self-care (01) ==
LOC: ER 04:03 → 2ND 07:49
PROVIDERS: ADMIT Hospitalist; ATTEND Hospitalist
DX: M32.9 Systemic lupus erythematosus, unspecified (principal); M32.14 Glomerular disease in systemic lupus erythematosus; I12.9 Hypertensive chronic kidney disease with stage 1 through stage 4 chronic kidney disease, or unspecified chronic kidney disease; N18.4 Chronic kidney disease, stage 4 (severe); E87.2 Acidosis; I25.10 Atherosclerotic heart disease of native coronary artery without angina pectoris; G40.909 Epilepsy, unspecified, not intractable, without status epilepticus; F32.A Depression, unspecified; F41.9 Anxiety disorder, unspecified; E66.9 Obesity, unspecified; Z68.32 Body mass index [BMI] 32.0-32.9, adult; Z93.2 Ileostomy status; Z20.822 Contact with and (suspected) exposure to COVID-19; Z79.899 Other long term (current) drug therapy; Z88.5 Allergy status to narcotic agent; Z91.013 Allergy to seafood; Z90.49 Acquired absence of other specified parts of digestive tract; Z90.710 Acquired absence of both cervix and uterus; Z84.1 Family history of disorders of kidney and ureter; Z82.49 Family history of ischemic heart disease and other diseases of the circulatory system; Z83.3 Family history of diabetes mellitus; Z80.49 Family history of malignant neoplasm of other genital organs
CPT/HCPCS: 93005; 85025 ×2; 80048; 36415 ×2; 86900; 83735 ×2; 86850; 85610; 86901; 82947 ×4; 80076; 85652 ×2; 84484; 82746; 82607; 83690; 83540; 80053; 84145 ×2; 86225; 83880 ×2; 86160 ×2; 86140 ×2; 71045; 96375; 96374; 99285; U0003; J0360 ×3; J1170 ×6; J7030 ×2; J2930; J2405 ×3; G0378 ×3

== ENCOUNTER 2021-11-25 06:37 | Observation (INO) | payer OTHER ==
--- OUTSIDE RECORDS SUMMARY | 2021-11-25 06:42 | XMS REPORT | Continuity of Care Document ---
:1970 Author Organization [facility] t Address [address] [place] [address] Care Team Providers Name Role Phone Dorota [...] Expiration Date S tonnyce MEDICAID OF [place] [id number] 2014 00:00:[address] [facility] [id number] 2017 DUAL COMPLETE 00:00:00 Problems Condition Condition [...] pain 09-27 [facility] - 00:[facility]: Medical 00 [place] Systemic Systemic Disease Active 2017-08 [facility] lupus lupus 09-27 [facility] - erythemato erythemato 00:00: Me dical al al 00 Center Essential Essential Disease Active 2017-[address] [facility] hypertensi hypertensi 30 G[facility] kes - on on 00:00: Medical 00 [place] Type 2 Type 2 Disease Active 2017-[address] [facility] diabetes diabetes 09-27 [facility] - mellitus mellitus 00:00: Medica l with with 00 Center kidney kidney complicati complicati on, with on, with long-term long-term current current use of use of insulin insulin Colostomy Colostomy Disease Active 2017-[address] complicati complicati 09-27 Gilda kes - on on 00:00: Medical 00 [place] bright red bright red Disease Active 2017-08 [...] 3-19 it y of n n 00:00: [place] [facility] Colostomy Colostomy Disease Active Met hodi in place in place 02-23 st 00:00: Hospita 00 l Seizure Seizure Disease Active Univers 9-21 ity of 00:00: [place] [facility] Obesity Obesity Disease Active Univers (BMI (BMI 9-20 ity of 30-39.9) 30-39.9) 00:00: [place] [facility] Pulmonary Pulmonary Disease Active Uni vers edema edema 8-28 ity of 00:00: [place] [facility] Systemic Systemic Disease Active Unive rs lupus lupus 2-23 ity of erythemato erythemato 00[place] [facility] [place] Depression Depression Disease Active U nivers , major , major 2-18 ity of 00:00: [place] [facility] DAE (acute DAE (acute Disease Active U nivers kidney kidney 2-12 ity of injury) injury) 00:00: [place] [facility] HTN HTN Disease Active Univers (hypertens (hypertens 2-12 it y of ion) ion) 00:00: [place] [facility] Lupus Lupus Disease Active Univers nephritis nephritis 2-11 ity of 00:00: [place] [facility] Allergies, Adverse Reactions, Alerts Allergy [...] Date Stop Date Source Natural mother Cancer [facility] Natural mother Hypertension [facility] Natural mother Uterine cancer Method [facility] Natural sister Diabetes [facility] Natural father Kidney disease [facility] Natural father Kidney cancer [facility] Social History Social Habit Start Date Stop Date Quantity Comments Source Exposure to Not sure [facility] SARS-CoV-2 [place] [facility] (event) Branch History SDOH [facility] - Alcohol Std Medical Cente r Drinks History SDOH [facility] - Alcohol Binge Medical [address] Tobacco use and 2021-03-27 2021-03-27 Never used Universit y of exposure 00:00:00 00:00:00 [facility] Alcohol intake 2021-03-27 2021-03-27 Current University of 00:00:00 00:00:00 non-drinker of [facility] alcohol Branch (finding) History SDOH 2018-07-28 2018-07-[address] [facility] - Alcohol Frequency 00:00:00 00:00:00 Medical Center Sex Ass[birth year] At [birth year] Universit y of 00:00:00 00:00:00 [facility] Smoking Status Start Date Stop [...] Tue Medica l NaCl 0.9% 03/27/21 at [facility] ch (NS) 50 mL 0230, 50 piggyback mL FENTanyl PF 2020- No 100ug 100 mcg, [facility] (SUBLIMAZE 03-27 Slow IV ity o f (PF)) 07:30: 06:31 Push, [place] injection 00 :00 ONCE, 1 Medical 100 mcg dose, Fri Branch 03/27/21 at 0230, Routine amoxicillin Yes [id number] 875mg Take 1 Univers 875 mg 5-20 15070 tablet by ity of tablet 00:00: mouth 2 [place] 00 (two) Medical times Branch daily. amoxicillin Yes [id number] 875mg Take 1 Univers 875 mg 5-20 [id number] tablet by ity of tablet 00:00: mouth 2 [place] 00 (two) Medical times Branch daily. neomycin-po 2020- No [id number] 3[drp] Place 3 Univers lymyxin-hyd 01-15 89813 Drops in it y of rocortisone 00:00: 04:59 right ear [place] 3.5-10,000- 00 :00 4 (four) Medi valentin 1 times [place] mg/mL-unit/ daily for mL-% otic 7 days. [...] mouth. Jose es - MG tablet 08:16: [address] pantoprazol 2017-08 Yes 40mg QD Take [address] [facility] e 2-04 by mouth [facility] - (PROTONIX) 08:16: daily. Medic al 40 MG 44 Center tablet doxazosin 2017-08 Yes 4mg Take [address] (CARDURA) 2 2-04 by mouth. Jose es - MG tablet 08:16: [address] pantoprazol 2017-08 Yes 40mg QD Take [address] e 2-04 by mouth [facility] - (PROTONIX) 08:16: daily. Medic al 40 MG 44 Center tablet zolpidem 2017-08 Yes 10mg QD Take [address] (AMBIEN) 10 1-25 by mouth Luke s - mg tablet 00:00: nightly. [facility] [place] zolpidem 2017-08 Yes 10mg QD Take [address] (AMBIEN) 10 1-25 by mouth Luke s - mg tablet 00:00: nightly. [address] ondansetron 2017-08 Yes DIS [address] (ZOFRAN-ODT 1-23 THE TONGUE Gilda kes - ) 8 MG 00:00: BID Medical [address] ing tablet ondansetron 2017-08 Yes DIS [...] mouth ity of mg tablet 20:00: daily. [place] [address] Medical Branch metoprolol Yes 100mg Take 100 [...] mouth ity of 10 mg 20:00: daily. [place] tablet 52 Medical Branch doxazosin 2018-0 Yes 4mg Take 4 mg Uni vers (CARDURA) 4 3-21 by mouth ity of mg tablet 20:00: daily. [place] [address] Medical Branch zolpidem 2018-0 Yes 10mg Take [...] mouth ity of mg tablet 20:00: daily. [place] [address] Medical Branch metoprolol 2018-0 Yes 100mg Take [...] mouth ity of 10 mg 20:00: daily. [place] tablet 52 Medical Branch doxazosin 2018-0 Yes 4mg Take 4 mg Uni vers (CARDURA) 4 3-21 by mouth ity of mg tablet 20:00: daily. [place] [address] Medical Branch zolpidem 2018-0 Yes 10mg Take [...] mouth ity of mg tablet 20:00: daily. [place] [address] Medical Branch metoprolol 2018-0 Yes 100mg Take [...] mouth ity of 10 mg 20:00: daily. [place] [address] Medical Branch doxazosin 2018-0 Yes 4mg Take 4 mg Uni vers (CARDURA) 4 3-21 by mouth ity of mg tablet 20:00: daily. [place] [address] Medical Branch zolpidem 2018-0 Yes 10mg Take [...] mouth ity of mg tablet 20:00: daily. [place] [address] Medical Branch metoprolol 2018-0 Yes 100mg Take [...] mouth ity of 10 mg 20:00: daily. [place] tablet 52 Medical Branch doxazosin 2018-0 Yes 4mg Take 4 mg Uni vers (CARDURA) 4 3-21 by mouth ity of mg tablet 20:00: daily. [place] [address] Medical Branch zolpidem 2017-0 Yes 10mg Take [...] mouth ity of mg tablet 20:00: daily. [place] [address] Medical Branch metoprolol 2017-0 Yes 100mg Take [...] mouth ity of 10 mg 20:00: daily. [place] tablet 52 Medical Branch doxazosin 20180 Yes 4mg Take 4 mg Uni vers (CARDURA) 4 3-21 by mouth ity of mg tablet 20:00: daily. [place] [address] Medical Branch zolpidem 0 Yes 10mg Take [...] -acetaminop 9-24 tablet by ity of hen (Kidizen) 00:00: mouth [place] 10-325 mg 00 every 6 Medical tablet (six) Branch hours as needed for Pain (scale 7-10). HYDROcodone 2015-0 Yes 1{tbl} Take 1 Un aaliyah -acetaminop 9-24 tablet by ity of hen ([place]izen) 00:00: mouth [place] 10-325 mg 00 every 6 Medical tablet (six) Branch hours as needed for Pain (scale 7-10). HYDROcodone 2015-0 Yes 1{tbl} Take 1 Un aaliyah -acetaminop 9-24 tablet by ity of hen ([place]izen) 00:00: mouth [place] 10-325 mg 00 every 6 Medical tablet (six) Branch hours as needed for Pain (scale 7-10). HYDROcodone 2015-0 Yes 1{tbl} Take 1 Un aaliyah -acetaminop 9-24 tablet by ity of hen ([place]izen) 00:00: mouth [place] 10-325 mg 00 every 6 Medical tablet (six) Branch hours as needed for Pain (scale 7-10). HYDROcodone 2015-0 Yes 1{tbl} Take 1 Un aaliyah -acetaminop 9-24 tablet by ity of hen ([place]izen) 00:00: mouth [place] 10-325 mg 00 every [...] QHS. ity of 2 mg tablet 00:00: [facility] ZODYCUSBURG ER Yes TK ONE C Uni vers 10 mg CR12 8-22 PO Q 12 H ity of 00:00: PRN. [facility] tiZANidine Yes TK 1 T PO Un aaliyah (ZANAFLEX) 8-22 QHS. ity of 2 mg tablet 00:00: [facility] ZODYCUSBURG ER Yes TK ONE C Uni vers 10 mg CR12 8-22 PO Q 12 H ity of 00:00: PRN. [facility] Branch tiZANidine Yes TK 1 T PO Un alaiyah (ZANAFLEX) 8-22 QHS. ity of 2 mg tablet 00:00: [facility] ZODYCUSBURG ER Yes TK ONE C Uni vers 10 mg CR12 8-22 PO Q 12 H ity of 00:00: PRN. [facility] tiZANidine Yes TK 1 T PO Un aaliyah (ZANAFLEX) 8-22 QHS. ity of 2 mg tablet 00:00: [facility] ZODYCUSBURG ER Yes TK ONE C Uni vers 10 mg CR12 8-22 PO Q 12 H ity of 00:00: PRN. [facility] furosemide Yes TK 1 T PO Un aaliyah (LASIX) 80 6-16 BID. ity of mg tablet 00:00: [facility] furosemide Yes TK 1 T PO Un aaliyah (LASIX) 80 6-16 BID. ity of mg tablet 00:00: [facility] furosemide Yes TK 1 T PO Un aaliyah (LASIX) 80 6-16 BID. ity of mg tablet 00:00: [facility] furosemide Yes TK 1 T PO Un aaliyah (LASIX) 80 6-16 BID. ity of mg tablet 00:00: [facility] furosemide Yes TK 1 T PO Un aaliyah (LASIX) 80 6-16 BID. ity of mg tablet 00:00: [facility] ONETOUCH Yes FPD Univers ULTRA2 Kit 6-13 ity of 00:00: [facility] ONETOUCH 2016-0 Yes FPD Univers ULTRA2 Kit [...] - 10 MG 00:00: Medical tablet 00 [place] cloNIDine 2014-08 Yes .3mg Q.[id number] Take 0.[address] HCl 1-11 [id number] mg by [facility] - (CATAPRES) 00:00: 3D mouth 3 Medi valentin 0.3 MG 00 (three) Center tablet times daily . furosemide 2014-08 Yes 80mg Take [address] (LASIX) 40 1-11 by mouth . Jose es - MG tablet 00:00: Medical 00 [place] hydrALAZINE 2014-08 Yes 50mg Q.[id number] Take [address] (APRESOLINE 1-11 [id number] by mouth 3 [facility] - ) 50 MG 00:00: 3D (three) Medical tablet 00 times Center daily. metoprolol 2014-08 Yes 100mg Q.5D Take [address] (LOPRESSOR) 1-11 mg by [facility] - 100 MG 00:00: mouth 2 Medical tablet 00 (two) Center times daily. cloNIDine 2014-08 Yes .3mg Q.[id number] Take 0.[address] HCl 1-11 [id number] mg by [facility] - (CATAPRES) 00:00: 3D mouth 3 Medi valentin 0.3 MG 00 (three) Center tablet times daily . furosemide 2014-08 Yes 80mg Take [address] (LASIX) 40 1-11 by mouth . Jose es - MG tablet 00:00: Medical 00 [place] hydrALAZINE 2014-08 Yes 50mg Q.[id number] Take [address] (APRESOLINE 1-11 [id number] by mouth 3 [facility] - ) 50 MG 00:00: 3D (three) Medical tablet 00 times Center daily. metoprolol 2014-08 Yes 100mg Q.5D Take [address] (LOPRESSOR) 1-11 mg by [facility] - 100 MG 00:00: mouth 2 Medical tablet 00 (two) Center times daily. Immunizations Ordered Filled Immunization Date Status Comments [facility] e Immunization Name Name SARS-COV-2 COVID-19 2020-11-15 Completed [facility] [employer] VACCINE 00:00:00 [facility] SARS-COV-2 COVID-19 2020-11-15 Completed Unive rsity of PFIZER VACCINE 00:00:00 [facility] SARS-COV-2 COVID-19 2020-10-25 Completed Unive rsity of PFIZER VACCINE 00:00:00 [facility] SARS-COV-2 COVID-19 2020-10-25 Completed Unive rsity of PFIZER VACCINE 00:00:00 [facility] SARS-COV-2 COVID-19 2020-10-25 Completed Unive rsity of PFIZER VACCINE 00:00:00 [facility] SARS-COV-2 COVID-19 2020-10-25 Completed Unive rsity of PFIZER VACCINE 00:00:00 [facility] SARS-COV-2 COVID-19 2020-10-25 Completed Unive rsity of PFIZER VACCINE 00:00:00 [facility] Vital Signs Vital Name Observation Time Observation Value Comments Source Systolic blood 2021-03-27 08:00:00 182 mm[Hg] Univer sity of pressure [facility] Diastolic blood 2021-03-27 08:00:00 101 mm[Hg] Unive rsity of pressure [facility] Heart rate 2021-03-27 08:00:00 72 /min [facility] Respiratory rate 2021-03-27 08:00:00 10 /min [facility] Oxygen saturation in 2021-03-27 08:00:00 100 /min [facility] Arterial blood by [facility] Pulse oximetry [place] Body temperature 2021-03-27 04:49:00 37.28 Chhaya [facility] height 2021-03-27 04:49:00 157.5 cm [facility] Body weight 2021-03-27 04:49:00 83.462 kg [facility] BMI 2021-03-27 04:49:00 33.65 kg/m2 [facility] Systolic blood 2021-01-15 15:01:00 140 mm[Hg] Univer sity of pressure [facility] Diastolic blood 2021-01-15 15:01:00 84 mm[Hg] Unive rsity of pressure [facility] Heart rate 2021-01-15 15:01:00 76 /min [facility] Body temperature 2021-01-15 15:01:00 36.28 Chhaya Univ ersity of [facility] [place] [facility] Branch Respiratory rate 2021-01-15 15:01:00 18 /min Univ ersity of [facility] Body height 2021-01-15 15:01:00 157.5 cm Universi ty of [place] [facility] [place] Body weight 2021-01-15 15:01:00 90.719 kg Universi ty of [place] [facility] BMI 2021-01-15 15:01:00 36.58 kg/m2 Universi ty of [facility] Oxygen saturation in 2021-01-15 15:01:00 99 /min [facility] Arterial blood by [facility] Pulse oximetry Branch Systolic blood 2020-11-12 19:02:00 155 mm[Hg] Univer sity of pressure [facility] Diastolic blood 2020-11-12 19:02:00 95 mm[Hg] Unive rsity of pressure [facility] Heart rate 2020-11-12 19:01:00 79 /min Universi ty of [place] [facility] Respiratory rate 2020-11-12 19:01:00 19 /min Univ ersity of [facility] Body height 2020-11-12 19:01:00 167.6 cm Universi ty of [place] [facility] Body weight 2020-11-12 19:01:00 86.002 kg Universi ty of [place] [facility] BMI 2020-11-12 19:01:00 30.60 kg/m2 [facility]i [facility] [place] [facility] Systolic blood 2020-11-12 19:02:00 155 mm[Hg] Univer sity of pressure [place] [facility] Diastolic blood 2020-11-12 19:02:00 95 mm[Hg] Unive rsity of pressure [facility] [place] [facility] Branch Heart rate 2020-11-12 19:01:00 79 /min Universi ty of [place] [facility] Respiratory rate 2020-11-12 19:01:00 19 /min Univ ersity of [facility] [place] [facility] Body height 2020-11-12 19:01:00 167.6 cm Universi ty of [place] [facility] Body weight 2020-11-12 19:01:00 86.002 kg [facility]i [facility] [place] [facility] BMI 2020-11-12 19:01:00 30.60 kg/m2 [facility] [place] [facility] Procedures Procedure Date / Time Performed Performing Clinician Sour e NOTICE OF PRIVACY 2021-03-27 04:39:35 Doctor Unassigned, No Univ [facility] PRACTICES Name Medical Branch CONSENT/REFUSAL FOR 2021-03-27 04:37:48 [facility], [facility] Name Medical Branch TREATMENT CONSENT/REFUSAL FOR 2021-01-15 14:58:04 Doctor Unassigned, No [facility] AND Name Medical Branch TREATMENT ASSIGNMENT OF BENEFITS 2020-11-12 18:39:16 Doctor Unassigned, No [facility] Name Medical Branch Plan of Care Planned [...] 00:00:00 measurement Medical Center (procedure) [code = 05362899] Future Scheduled 2019-01-[address] [facility] - Test 00:00:00 measurement Medical Center (procedure) [code = 66126848] Future Scheduled 2018-08-[address] [...] s - Test 00:00:00 (procedure) [code = [facility] 64995982] Future Scheduled [address] [facility] - Test 00:00:00 (procedure) [code = [facility] 56136073] Future Scheduled 2014-06-[address] [facility] [...] Medica l Center cervix (procedure) [code = 470230284] Future Scheduled [address] [facility] Jose es - Test 00:00:00 malignant neoplasm of Medica l Center cervix (procedure) [code = 972019295] Future Scheduled 1989 DTAP/TDAP/TD VACCINES CH I [...] 00:00:00 examination Medical Center (regime/therapy) [code = 994899792] Future Scheduled 1980 Urine screening for [facility] - Test 00:00:00 protein (procedure) Medical Center [code = 867046128] Future Scheduled 1980 DIABETIC EYE EXAM [facility] - Test 00:00:00 [code = DIABETIC EYE Medical Center EXAM] Future Scheduled [address] [facility] - Test 00:00:00 examination Medical Center (regime/therapy) [code = 418058439] Future Scheduled 1980 Urine screening for [facility] - Test 00:00:00 protein (procedure) Medical Center [code = 809220493] Future Scheduled [address] [facility] - Test 00:00:00 malignant neoplasm of Medica l Center breast (procedure) [code = 201488767] Future Scheduled [address] [facility] - Test 00:00:00 malignant neoplasm of Medica l Center colon (procedure) [code = 862462861] Future Scheduled [address] [facility] - Test 00:00:00 malignant neoplasm of Medica l Center breast (procedure) [code = 209532492] Future Scheduled [address] - Test 00:00:00 malignant neoplasm of Medica l Center colon (procedure) [code = 454212071] Future Scheduled DIABETES: RETINAL EYE [facility] Test EXAM [code = DIABETES: RETINAL EYE EXAM] Future Scheduled DIABETIC FOOT EXAM [facility] Test [code = DIABETIC FOOT EXAM] Future Scheduled COVID-19 VACCINE (1) [facility] [code = COVID-19 VACCINE (1)] Future Scheduled Hepatitis C screening [facility] Test (procedure) [code = 043396370] Future Scheduled Screening for [facility] Test malignant neoplasm of cervix (procedure) [code = 147310429] Future Scheduled BREAST CANCER [facility] Test SCREENING [code = BREAST CANCER [...] Type Clinicians Facility Department ID 2021-06-[address] [facility] [id number] Univers 11:53:58 ity [facility] 2021-06-[address] [facility] [id number] Univers 20:14:34 ity [facility] 2021-03-26 2021-03-27 [facility] [id number] Univers 23:56:00 03:30:00 Naga Pulido [place] [id number] ity [facility] [id number] [facility] [id number] [address] 2021-01-15 2021-01-15 [facility] [id number] Univers 10:03:00 11:43:00 Jeanna Tess [place] [id number] i ty of [place] [id number] [facility] [id number] [address] 2020-12-11 2020-12-11 [facility]patient [facility] [id number] Univers 10:00:00 10:00:00 TONY [facility] 2020-12-11 2020-12-11 [facility]patient [facility] [id number] Univers 10:00:00 10:00:00 TONY [id number] [facility] 2020-11-15 2020-11-[address] [facility] [id number] Univers 13:05:00 13:05:00 [facility] 2020-11-12 2020-11-12 Office [facility] [id number] Univers 13:40:03 14:10:03 Visit Ligia Gonzalez [id number] ity [id number] [place] [id number] Ca dical [address] 2020-11-12 2020-11-12 Office Mayela [facility] [id number] 13:40:03 14:10:03 Visit Ligia Gonzalez [id number] [place] [id number] Professio [id number] [address] 2020-11-12 2020-11-12 Outpatient R MAYELA LIGIA [facility] [id number] Univers 14:00:00 14:00:00 MAYELA LIGIA ity [facility] 2020-11-12 2020-11-12 Orders Doctor GRACY [id number] Univers 00:00:00 00:00:00 Only Unassigned, KATIE [id number] ity of [place] [facility] [id number] Juan C as [id number] [address] 2020-10-25 2020-10-[address] [facility] [id number] Univers 12:45:00 12:45:00 ity [facility] Results Test Description Test Time Test Comments Results Result Comments Source BLOOD CULTURE 2018-08-02 17:01:00 Test Item Value Reference Range Interpretation Comme nts CULTURE ([facility]) (test code = 1095) No growth in 5 days LUPUS ANTICOAGULANT SCREEN WITH REFLEX TO [id number] 16:08:00 Test Item Value Reference Range Interpretation Comments DRVV SCREEN RATIO 1.55 <1.20 H (BEAKER) (test code = 2707) DRVV CONFIRM RATIO 0.93 (test code = 2709) DRVV NORMALIZED RATIO 1.67 <1.20 H (test code = 2710) DRVV INTERPRETATION Positive screen for (BEAKER) (test code = Lupus Anticoagulant 7266) with hexagonal phospholipid confirmation. Suggest repeat testing in 12 weeks and when patient not receiving anticoagulant therapy. PROTIME (BEAKER) (test 15.0 seconds 11.7-14.7 H code = 759) INR (BEAKER) (test code 1.2 <=5.9 = 370) PARTIAL THROMBOPLASTIN 36.1 seconds 22.5-36.0 H TIME (BEAKER) (test code = 760) PTT-LA (BEAKER) (test 45.2 32.0-41.8 H code = 4495115194) [id number] Cindy Chavira MD (BEAKER) (test code = (electronic signature) 7258) HEXAGONAL [id number] 14:08:00 Test Item Value Reference Range Interpretation Comments HEXAGONAL PHOSPHOLIPID (BEAKER) Positive (test code = 1790) BLOOD [id number] 10:01:00 Test Item Value Reference Range Interpretation Comments CULTURE (BEAKER) (test No growth in 5 days code = 1095) DOUBLE-STRANDED DNA (DSDNA) [id number] 05:52:00 Test Item Value Reference Range Interpretation Comments ANTI-DNA DS (BEAKER) (test code = Negative 1055) CARDIOLIPIN ANTIBODIES, IGG AND [id number] 15:01:00 Test Item Value Reference Range Interpretation Comments ANTICARDIOLIPIN IGG ANTIBODY (BEAKER) < GPL <20.0 (test code = 712) ANTICARDIOLIPIN IGM ANTIBODY (BEAKER) 2.1 MPL <20.0 (test code = 713) Anticardiolipin IgG Result Interpretation: <20.0 GPL Normal>/= 20.0 GPL PositiveAnticardiolipin IgM Result Interpretation: <20.0 MPL Normal>/= 20.0 MPL PositiveCALCIUM, [id number] 05:12:00 Test Item Value Reference Range Interpretation Comments CALCIUM IONIZED (BEAKER) (test 1.01 mmol/L 1.12-1.27 L code = 698) PH, BLOOD (BEAKER) (test code = 7.45 1810) POCT-GLUCOSE [id number] 21:30:00 Test Item Value Reference Range Interpretation Comments POC-GLUCOSE METER 116 mg/dL 70-110 H TESTED AT [facility] 6720 (BEAKER) (test code = [place] 1538) [address] POCT-GLUCOSE [id number] 17:32:00 Test Item Value Reference Range Interpretation Comments POC-GLUCOSE METER 125 mg/dL 70-110 H TESTED AT [facility] 67 (BEAKER) (test code = JOB [place]se[place] 1538) [address] POCT-GLUCOSE [id number] 11:28:00 Test Item Value Reference Range Interpretation Comments POC-GLUCOSE METER 115 mg/dL 70-110 H TESTED AT [place] [address] (BEAKER) (test code = JOB [place] 1538) [address] POCT-GLUCOSE [id number] 07:41:00 Test Item Value Reference Range Interpretation Comments POC-GLUCOSE METER 108 mg/dL 70-110 TESTED AT [place] [address] (BEAKER) (test code = JOB [place] 1538) [address] [id number] 07:06:00 Test Item Value Reference Range Interpretation Comments MAGNESIUM (BEAKER) 1.8 mg/dL 1.6-2.6 Specimen slightly (test code = 627) hemolyzed [id number] 07:06:00 Test Item Value Reference Range Interpretation Comments PHOSPHORUS (BEAKER) 2.4 mg/dL 2.3-4.7 Specimen slightly (test code = 604) hemolyzed COMPREHENSIVE METABOLIC [id number] 07:06:00 Test Item Value Reference Range Interpretation [...] APPLICABLE FOR DIALYSIS PATIEN TS. HEPATIC FUNCTION [id number] 07:06:00 Test Item Value Reference Range Interpretation [...] slightly (test code = 347) hemolyzed CALCIUM, [id number] 06:42:00 Test Item Value Reference Range Interpretation Comments CALCIUM IONIZED (BEAKER) (test 1.16 mmol/L 1.12-1.27 code = 698) PH, BLOOD (BEAKER) (test code = 7.42 1810) CBC W/PLT COUNT & AUTO [id number] 05:10:00 Test Item Value Reference Range Interpretation [...] PERCENT (BEAKER) (test code = 2801) POCT-GLUCOSE [id number] 23:12:00 Test Item Value Reference Range Interpretation Comments POC-GLUCOSE METER 95 mg/dL 70-110 TESTED AT [place] [address] ([facility]) (test code = JOB Osei [facility] [address] 1538) POCT-GLUCOSE [id number] 18:51:00 Test Item Value Reference Range Interpretation Comments POC-GLUCOSE METER 118 mg/dL 70-110 H TESTED AT [place] [address] ([facility]) (test code = JOB Osei [facility] 1538) [address] HEMOGLOBIN AND [id number] 16:28:00 Test Item Value Reference Range Interpretation Comments HEMOGLOBIN ([facility]) (test code = 8.7 GM/DL 11.2-15.7 L 410) HEMATOCRIT ([facility]) (test code = 27.8 % 34.1-44.9 L 411) POCT-GLUCOSE [id number] 15:00:00 Test Item Value Reference Range Interpretation Comments POC-GLUCOSE METER 140 mg/dL 70-110 H TESTED AT [place] [address] ([facility]) (test code = JOB Osei [facility] 1538) [address] POCT-GLUCOSE [id number] 14:46:00 Test Item Value Reference Range Interpretation Comments POC-GLUCOSE METER 44 mg/dL 70-110 L Notified R Dandre WALTER/TESTED AT ([facility]) (test code = [address] 1538) [place] [address] 0 POCT-GLUCOSE [id number] 13:05:00 Test Item Value Reference Range Interpretation Comments POC-GLUCOSE METER 87 mg/dL 70-110 TESTED AT [place] [address] ([facility]) (test code = JOB Osei [facility] [address] 1538) POCT-GLUCOSE [id number] 11:57:00 Test Item Value Reference Range Interpretation Comments POC-GLUCOSE METER 65 mg/dL 70-110 L Notified R Dandre WALTER/TESTED AT ([facility]) (test code = [place] [address]0568) [place] [id number] 0 VANCOMYCIN LEVEL, [id number] 10:58:00 Test Item Value Reference Range Interpretation Comments VANCOMYCIN TROUGH ([facility]) (test 14.2 ug/mL 10.0-20.0 code = 522) RAD, ABDOMEN/KUB, 1 VIEW [id number] 09:41:00Reason for exam:->abdominal painFINAL REPORT AP abdomen, two images HISTORY: Abdominal pain COMPARISON: 07/28/2013 IMPRESSION:Grossly nonobstructive bowel gas pattern. Intact skeleton. Signed: Vikas Guillen MDReport Verified Date/Time: 07/30/2018 09:41:59 Reading Location: [address] Ortho Consult ReadingRoom POCT-GLUCOSE [id number] 07:59:00 Test Item Value Reference Range Interpretation Comments POC-GLUCOSE METER 87 mg/dL 70-110 TESTED AT [facility] 67[address] ([facility]) (test code = [place] [address] 1538) CALCIUM, [id number] 06:53:00 Test Item Value Reference Range Interpretation Comments CALCIUM IONIZED (BEAKER) (test 1.12 mmol/L 1.12-1.27 code = 698) PH, BLOOD (BEAKER) (test code = 7.44 1810) [id number] 06:38:00 Test Item Value Reference Range Interpretation Comments PHOSPHORUS (BEAKER) (test code = 2.7 mg/dL 2.3-4.7 604) [id number] 06:38:00 Test Item Value Reference Range Interpretation Comments MAGNESIUM (BEAKER) (test code = 1.6 mg/dL 1.6-2.6 627) HEPATIC FUNCTION [id number] 06:38:00 Test Item Value Reference Range Interpretation [...] = 9 U/L 6-55 347) COMPREHENSIVE METABOLIC [id number] 06:38:00 Test Item Value Reference Range Interpretation [...] PATIEN TS. CBC W/PLT COUNT & AUTO [id number] 06:11:00 Test Item Value Reference Range Interpretation [...] PERCENT (BEAKER) (test code = 2801) POCT-GLUCOSE [id number] 21:38:00 Test Item Value Reference Range Interpretation Comments POC-GLUCOSE METER 96 mg/dL 70-110 TESTED AT [facility] [address] (BEAKER) (test code = [place] [address] 7858) POCT-GLUCOSE [id number] 18:19:00 Test Item Value Reference Range Interpretation Comments POC-GLUCOSE METER 121 mg/dL 70-110 H TESTED AT [facility] 67[address] ([facility]) (test code = JOB Osei [facility] 1538) [address] T4, [id number] 12:35:00 Test Item Value Reference Range Interpretation Comments FREE T4 (BEAKER) (test code = 655) 1.25 ng/dL 0.70-1.48 POCT-GLUCOSE [id number] 12:27:00 Test Item Value Reference Range Interpretation Comments POC-GLUCOSE METER 127 mg/dL 70-110 H TESTED AT [facility] 67[address] ([facility]) (test code = JOB Osei [facility] 1538) [address] TSH/FREE T4 IF [id number] 12:07:00 Test Item Value Reference Range Interpretation Comments THYROID STIMULATING HORMONE 0.25 uIU/mL 0.35-4.94 L (BEAKER) (test code = 772) [id number] 12:07:00 Test Item Value Reference Range Interpretation Comments THYROID STIMULATING HORMONE 0.25 uIU/mL 0.35-4.94 L ([facility]) (test code = 772) LACTIC ACID, VENOUS, WHOLE [id number] 11:35:00 Test Item Value Reference Range Interpretation Comments LACTATE BLOOD VENOUS 0.6 mmol/L 0.5-2.2 Specime n slightly (2) (BEAKER) (test hemolyzed code = 2872) VANCOMYCIN LEVEL, [id number] 07:11:00 Test Item Value Reference Range Interpretation Comments VANCOMYCIN RANDOM (BEAKER) (test 17.9 ug/mL code = 523) Reference Range: No [id number] 07:09:00 Test Item Value Reference Range Interpretation Comments PHOSPHORUS (BEAKER) (test code = 3.9 mg/dL 2.3-4.7 604) [id number] 07:09:00 Test Item Value Reference Range Interpretation Comments MAGNESIUM (BEAKER) (test code = 1.7 mg/dL 1.6-2.6 627) BASIC METABOLIC [id number] 07:09:00 Test Item Value Reference Range Interpretation [...] APPLICABLE FOR DIALYSIS PATIEN TS. HEPATIC FUNCTION [id number] 07:09:00 Test Item Value Reference Range Interpretation [...] code = 10 U/L 6-55 347) TROPONIN [id number] 06:54:00 Test Item Value Reference Range Interpretation Comments TROPONIN I (BEAKER) (test code = 0.08 ng/mL 0.00-0.03 H 397) LACTIC ACID, VENOUS, WHOLE [id number] 06:45:00 Test Item Value Reference Range Interpretation Comments LACTATE BLOOD VENOUS 0.8 mmol/L 0.5-2.2 Specime n slightly (2) (BEAKER) (test hemolyzed code = 2872) CBC W/PLT COUNT & AUTO [id number] 06:00:00 Test Item Value Reference Range Interpretation [...] PERCENT (BEAKER) (test code = 2801) CALCIUM, [id number] 05:58:00 Test Item Value Reference Range Interpretation Comments CALCIUM IONIZED (BEAKER) (test 1.12 mmol/L 1.12-1.27 code = 698) PH, BLOOD (BEAKER) (test code = 7.39 1810) EOSINOPHIL SMEAR, [id number] 20:17:00 Test Item Value Reference Range Interpretation Comments EOSINOPHIL SMEAR, URINE (BEAKER) No EOS seen No EOS seen (test code = 1851) BASIC METABOLIC [id number] 20:01:00 Test Item Value Reference Range Interpretation [...] DIALYSIS PATIEN TS. LACTIC ACID, VENOUS, WHOLE [id number] 19:59:00 Test Item Value Reference Range Interpretation Comments LACTATE BLOOD VENOUS 0.8 mmol/L 0.5-2.2 Specime n slightly (2) (BEAKER) (test hemolyzed code = 2872) CT, BRAIN/STROKE [id number] 19:59:00Stroke Protocol. Phone/Page MD for reporting.Reason for [...] Fink Verified Date/Time: 07/28/2018 19:59:01 Reading Location: [facility] Radiology Reading Room [id number] 19:51:00 Test Item Value Reference Range Interpretation Comments PARTIAL THROMBOPLASTIN TIME 33.1 seconds 22.5-36.0 (BEAKER) (test code = 760) PROTHROMBIN [id number] 19:50:00 Test Item Value Reference Range Interpretation Comments PROTIME (BEAKER) (test code = 15.6 seconds 11.7-14.7 H 759) INR (BEAKER) (test code = 370) 1.2 <=5.9 RECOMMENDED COUMADIN/WARFARIN INR THERAPY RANGESSTANDARD DOSE: 2.0 - 3.0 Includes: PROPHYLAXIS forvenous thrombosis, systemic embolization; TREATMENT for venous thrombosis and/or pulmonary embolus.HIGH RISK: Target INR is 2.5-3.5 for patients with mechanical heart valves.HEMOGLOBIN AND [id number] 19:41:00 Test Item Value Reference Range Interpretation Comments HEMOGLOBIN (BEAKER) (test code = 11.3 GM/DL 11.2-15.7 410) HEMATOCRIT (BEAKER) (test code = 35.4 % 34.1-44.9 411) CBC W/PLT COUNT & AUTO [id number] 19:41:00 Test Item Value Reference Range Interpretation [...] PERCENT (BEAKER) (test code = 2801) TROPONIN [id number] 19:26:00 Test Item Value Reference Range Interpretation Comments TROPONIN I (BEAKER) (test code = 0.11 ng/mL 0.00-0.03 H 397) PROTEIN, RANDOM [id number] 19:19:00 Test Item Value Reference Range Interpretation Comments PROTEIN, URINE (BEAKER) (test code 325 mg/dL 0-14 H = 1569) POCT-GLUCOSE [id number] 19:00:00 Test Item Value Reference Range Interpretation Comments POC-GLUCOSE METER 158 mg/dL 70-110 H TESTED AT [facility] 67[address] (BEAKER) (test code = [place] 1538) [address] CREATININE, RANDOM [id number] 18:52:00 Test Item Value Reference Range Interpretation Comments CREATININE URINE (BEAKER) (test 95.8 mg/dL code = 375) Reference Range: No NormalsSODIUM, RANDOM [id number] 18:52:00 Test Item Value Reference Range Interpretation Comments SODIUM URINE (BEAKER) (test code = 28 meq/L 243) Reference Range: No NormalsURINALYSIS W/ [id number] 18:02:00 Test Item Value Reference Range Interpretation [...] code Urine, Clean Catch = 2795) POCT-GLUCOSE [id number] 17:21:00 Test Item Value Reference Range Interpretation Comments POC-GLUCOSE METER 137 mg/dL 70-110 H TESTED AT [facility] [address] (BEAKER) (test code = [place] 1538) [address] BASIC METABOLIC [id number] 17:14:00 Test Item Value Reference Range Interpretation [...] APPLICABLE FOR DIALYSIS PATIEN TS. Call results [id number] ACID, VENOUS, WHOLE [id number] 14:19:00 Test Item Value Reference Range Interpretation Comments LACTATE BLOOD VENOUS (2) (BEAKER) 1.1 mmol/L 0.5-2.2 (test code = 2872) THROMBIN [id number] 13:02:00 Test Item Value Reference Range Interpretation Comments THROMBIN TIME (BEAKER) (test code = 17.8 secs 13.8-20.0 550) [id number] 13:01:00 Test Item Value Reference Range Interpretation Comments PROCALCITONIN (BEAKER) (test code 0.09 ng/mL <0.05 H = 3036) SEPSIS RISK (ng/mL)Low: 0.05-0.50Intermediate: 0.51-2.00High: >=2.011:1 MIXING STUDY, [id number] 12:38:00 Test Item Value Reference Range Interpretation Comments PROTIME (BEAKER) (test code = 15.0 seconds 11.7-14.7 H 759) PARTIAL THROMBOPLASTIN TIME 36.1 seconds 22.5-36.0 H (BEAKER) (test code = 760) PT 1/1 MIX (BEAKER) (test code = 14.4 SECS 11.7-14.7 1595) PTT 1/1 MIX (BEAKER) (test code 35.5 SECS 22.5-36.0 = 1596) TROPONIN [id number] 12:01:00 Test Item Value Reference Range Interpretation Comments TROPONIN I (BEAKER) (test code = 0.13 ng/mL 0.00-0.03 H 397) HCG, QUANTITATIVE, [id number] 11:58:00 Test Item Value Reference Range Interpretation Comments GONADOTROPIN, CHORIONIC (HCG) QUANT < mIU/mL 0-10 (BEAKER) (test code = 649) Non- Females: <10 mIU/mL Females: Gestation Age Reference Range(mIU/mL) 0.2-1 Week 5-50 1-2 Weeks 50-500 2-3 Weeks 100-5,000 3-4Weeks 500-10,000 4-5 Weeks 1,000-50,000 5-6 Weeks 10,000-100,000 6-8 Weeks 15,000-200,000 2-3 Months 10,000-100,[id number] 11:55:00 Test Item Value Reference Range Interpretation Comments LIPASE (BEAKER) (test code = 749) 31 U/L 8-78 [id number] 11:55:00 Test Item Value Reference Range Interpretation Comments AMYLASE (BEAKER) (test code = 349) 101 U/L 25-125 COMPREHENSIVE METABOLIC [id number] 11:55:00 Test Item Value Reference Range Interpretation [...] NOT APPLICABLE FOR DIALYSIS PATIEN TS. C-REACTIVE [id number] 11:55:00 Test Item Value Reference Range Interpretation Comments C-REACTIVE PROTEIN (BEAKER) (test 0.42 mg/dL 0.00-0.50 code = 676) LACTIC ACID, VENOUS, WHOLE [id number] 11:51:00 Test Item Value Reference Range Interpretation Comments LACTATE BLOOD VENOUS 1.5 mmol/L 0.5-2.2 Specime n slightly (2) (BEAKER) (test hemolyzed code = 2872) [id number] 11:44:00 Test Item Value Reference Range Interpretation Comments PARTIAL THROMBOPLASTIN TIME 35.4 seconds 22.5-36.0 (BEAKER) (test code = 760) CBC W/PLT COUNT & AUTO [id number] 11:30:00 Test Item Value Reference Range Interpretation [...] PERCENT (BEAKER) (test code = 2801) POCT-GLUCOSE [id number] 11:20:00 Test Item Value Reference Range Interpretation Comments POC-GLUCOSE METER 167 mg/dL 70-110 H TESTED AT [facility] 67[address] (BEAKER) (test code = [place] 1538) [address] HEMOGLOBIN [id number] 11:15:00 Test Item Value Reference Range Interpretation Comments HEMOGLOBIN A1C (BEAKER) (test code = 5.6 % 4.3-6.1 368) PROTHROMBIN [id number] 08:24:00 Test Item Value Reference Range Interpretation Comments PROTIME (BEAKER) (test code = 15.3 seconds 11.7-14.7 H 759) INR (BEAKER) (test code = 370) 1.2 <=5.9 RECOMMENDED COUMADIN/WARFARIN INR THERAPY RANGESSTANDARD DOSE: 2.0 - 3.0 Includes: PROPHYLAXIS forvenous thrombosis, systemic embolization; TREATMENT for venous thrombosis and/or pulmonary embolus.HIGH RISK: Target INR is 2.5-3.5 for patients with mechanical heart valves.RAD, ABDOMEN/KUB, 1 VIEW [id number] 08:13:00Reason for exam:->abdominal painFINAL REPORT INDICATION:Abdominal pain. [...] MDReport Verified Date/Time: 07/28 08:13:33 Reading Location: [facility] C013X Ortho Consult Reading Room ONIN [id number] 08:11:00 Test Item Value Reference Range Interpretation Comments TROPONIN I (BEAKER) (test code = 0.05 ng/mL 0.00-0.03 H 397) RAD, CHEST, 1 VIEW, NON [id number] 08:10:00Reason for exam:->chest painShould this be performed at the bedside?->YesFINAL REPORT RAD, CHEST, 1 VIEW, NON DEPT INDICATION: chest pain COMPARISON: Prior day's exam FINDINGS: Portable frontal view of the chest. IMPRESSION: Support Lines: None. Lungs and pleura: Clear lungs. No effusion. No pneumothorax.Heart and mediastinum: Unremarkable contours.Additional findings: None. Signed: JR Maya Robert MDReport Verified Date/Time: 07/28/2018 08:10:51 Reading Location: [facility] Radiology Reading Room BASIC METABOLIC [id number] 08:08:00 Test Item Value Reference Range Interpretation [...] S NOT APPLICABLE FOR DIALYSIS PATIEN TS. [id number] 08:04:00 Test Item Value Reference Range Interpretation Comments LIPASE (BEAKER) (test code = 749) 12 U/L 8-78 HEPATIC FUNCTION [id number] 08:04:00 Test Item Value Reference Range Interpretation [...] (test code = 347) hemolyzed COMPLEMENT COMPONENT [id number] 08:03:00 Test Item Value Reference Range Interpretation Comments C4 COMPLEMENT (BEAKER) (test code = 25 mg/dL 15-57 394) COMPLEMENT COMPONENT [id number] 08:03:00 Test Item Value Reference Range Interpretation Comments C3 COMPLEMENT (BEAKER) (test code = 125 mg/dL 82-193 393) POCT-BLOOD GASES, [id number] 07:57:00 Test Item Value Reference Range Interpretation Comments TEMP, CELSIUS-POC 37.0 (BEAKER) (test code = 1834) FIO2-POC (BEAKER) TESTED AT [facility] 6720 (test code = 1835) [place] [address] PH, ARTERIAL-POC 7.416 7.350-7.450 (BEAKER) (test code [...] L ARTERIAL-POC (BEAKER) (test code = 1841) [id number] 07:57:00 Test Item Value Reference Range Interpretation Comments POC-SODIUM ([facility]) 146 meq/L 135-148 TESTED [place] [address] (test code = 1542) [place] [facility] [address] [id number] 07:57:00 Test Item Value Reference Range Interpretation Comments POC-POTASSIUM 2.7 meq/L 3.6-5.5 L TESTED AT [place] [address] ([facility]) (test code [facility] [address] = 1540) [id number] 07:57:00 Test Item Value Reference Range Interpretation Comments POC-GLUCOSE ([facility]) 176 mg/dL 70-110 H TESTED AT [place] [address] (test code = 1855) [facility] [address] POCT-CALCIUM [id number] 07:57:00 Test Item Value Reference Range Interpretation Comments POC-CALCIUM IONIZED 1.15 mmol/L 1.12-1.27 TESTED [place] [address] ([facility]) (test code = [facility] 1531) [address] [id number] 07:57:00 Test Item Value Reference Range Interpretation Comments POC-HEMATOCRIT 38 % 36-45 TESTED AT [place] [address] ([facility]) (test code = [facility] [address] 6259) [id number] 07:57:00 Test Item Value Reference Range Interpretation Comments POC-HEMOGLOBIN 12.9 g/dL 12.0-15.0 TESTED AT [place] [address] ([facility]) (test code [facility] = 1856) 330[address]GWGVYA AT [place] [address] [place] [facility] [address] POCT-LACTIC ACID, [id number] 07:57:00 Test Item Value Reference Range Interpretation Comments POC-LACTIC ACID, 3.3 mmol/L 0.9-1.7 H TESTED AT B [facility] 6720 VENOUS (BEAKER) (test [place] code = 2805) [address] CBC W/PLT COUNT & AUTO [id number] 07:47:00 Test Item Value Reference Range Interpretation [...]
[2021-11-25] MEDS ORDERED: NA CHLORIDE 0.9% 1,000 ML ONE ×2 (06:59→09:10)
[2021-11-25] MEDS ORDERED: ONDANSETRON 4 MG/2 ML VIAL ONE (06:59)
[2021-11-25] MEDS ORDERED: HYDROMORPHONE HCL 0.5 MG/0.5 ML INJ ONE ×5 (06:59→22:53)
[2021-11-25] MEDS ORDERED: HYDROMORPHONE HCL 1 MG/ML INJ ONE ×2 (07:13→09:50)
[2021-11-25 07:21] LABS: Absolute Lymphocytes (CBC) 1.6 K/uL (0.7-4.9); Hematocrit 34.9 % (36.0-45.0); Lymphocytes % 16.6 % (15.3-44.8); MPV 7.2 fL (7.6-11.3); RBC Red Blood Cell Count 4.22 M/uL (3.86-4.86)
--- NOTE | 2021-11-25 07:21 | RAD REPORT ---
EXAM DESCRIPTION: CTAbdomen Pelvis Wo Contrast - 11/25/2021 7:11 am CLINICAL HISTORY: ABD PAIN COMPARISON: Stone Protocol dated 04/24/2021; Abdomen Pelvis Wo Contrast dated 09/20/2019; Abdomen Pelvis Wo Contrast dated 09/08/2019; Abdomen Pelvis Wo Contrast dated 08/02/2019; Abdomen Pelvis Wo Contrast dated 02/01/2017; BIOPSY RENAL dated 09/21/2012; CT ABDOMEN PELVIS WO CONTRAST dated 04/05/2013; CT ABDOMEN PELVIS WO CONTRAST dated 05/20/2013; CT ABDOMEN PELVIS WO CONTRAST dated 06/14/2013 TECHNIQUE: CT of the abdomen and pelvis was performed. All CT scans are performed using dose optimization technique as appropriate and may include automated exposure control or mA/KV adjustment according to patient size. FINDINGS: Lower chest: Small pericardial effusion. Liver: No acute abnormality or suspicious lesions. Biliary: No biliary ductal dilatation. Stomach: No significant focal abnormality. Duodenum: No significant focal abnormality. Pancreas: No significant abnormality. Spleen: No significant abnormality. Adrenal: No suspicious lesions. Kidney/ureter: No hydronephrosis. No renal calculi. Too small to characterize and/or benign appearing renal lesions are noted. Retroperitoneum: No retroperitoneal adenopathy. Vascular: No aneurysm. Bowel: Partial colectomy. Multiple air-fluid levels are present. There are interspersed segments of w all thickening involving colon small bowel. Normal appendix.. Peritoneum: No ascites or free air. Bladder: Grossly unremarkable. Reproductive: No adnexal masses. Hysterectomy. Bones: No acute fracture. Other: n/a IMPRESSION: Skip areas of small bowel and colonic wall thickening with multiple air-fluid levels con cerning for enterocolitis. No bowel obstruction.
[2021-11-25 07:26] LABS: Albumin 3.5 g/dL (3.4-5.0); Bilirubin Total 0.5 mg/dL (0.2-1.0); Potassium 3.1 mmol/L (3.5-5.1)
--- NOTE | 2021-11-25 07:52 | EKG ---
Test Date: 2021-11-25 Test Time: 06:40:15 Elastic Attacher Chainstitch: MEASUREMENT RESULTS: Intervals: Rate: 113 [place]: 184 QRSD: 86 QT: 334 QTc: 458 [place]: P: 55 [place]: 184 QRS: 11 T: 95 INTERPRETIVE STATEMENTS: Sinus tachycardia with premature atrial complexes Right atrial enlargement Left ventricular hypertrophy with repolarization abnormality Abnormal ECG Compared to ECG 11/19/2021 04:42:31 Atrial premature complex(es) now present Early repolarization now present Sinus rhythm no longer present First degree AV block no longer present T-wave abnormality no longer present Possible ischemia no longer present Prolonged QT interval no longer present Electronically Signed On 11-25-21 07:52:21 CDT by Jesse Jaime
--- NOTE | 2021-11-25 08:51 | EDPHYS ---
Physician Documentation [facility]ly [facility] Name: Babs Younger Age: 51 yrs Sex: Female : 1970 Arrival Date: 11/25/2021 Time: 06:38 Bed 26 Private MD: GENARO Physician Christiano Elizondo HPI: 11/25 06:56 This 51 yrs old Black Female presents to ER via EMS with complaints of abdominal pain. kb 06:56 The patient presents with abdominal pain in the upper abdomen. Onset: The kb symptoms/episode began/occurred 7 day(s) ago, and became worse this morning. The symptoms do not radiate. Associated signs and symptoms: Pertinent positives: blood in stools. The symptoms are described as constant. Modifying factors: The symptoms are alleviated by nothing, the symptoms are aggravated by pressure. Severity of pain: At its worst the pain was severe in the emergency department the pain is unchanged. The patient has experienced similar episodes in the past. The patient has not recently seen a physician. Pt reports abd pain that started 7 days ago. States the pain got worse this morning and she noticed blood in her stool. . Historical: - Allergies: 06:43 Morphine; al4 06:43 SHELLFISH; al4 - PMHx: 06:43 bowel obstruction; Diabetes - IDDM; ESRD; Hypertension; Lupus; Renal Disease; Seizures; al4 - PSHx: 06:43 Colostomy reversal; al4 - Immunization history:: Adult Immunizations up to date, Client reports receiving the 2nd dose of the Covid vaccine. - Social history:: Smoking status: Patient denies any tobacco usage or history of. ROS: 06:53 Constitutional: Negative for fever, chills, and weight loss. kb 06:53 Abdomen/GI: Positive for abdominal pain, diarrhea, rectal bleeding. 06:53 All other systems are negative. Exam: 06:53 Head/Face: Normocephalic, atraumatic. ENT: Moist Mucous membranes Respiratory: kb Respirations even and unlabored. No increased work of breathing. Talking in full sentences Skin: Warm, dry with normal turgor. Normal color. MS/ Extremity: Pulses equal, no cyanosis. Neurovascular intact. Full, normal range of motion. Neuro: Awake and alert, GCS 15, oriented to person, place, time, and situation. Moves all extremities. Normal gait. Psych: Awake, alert, with orientation to person, place and time. Behavior, mood, and affect are within normal limits. 06:53 Constitutional: The patient appears alert, awake, in obvious pain. 06:53 Abdomen/GI: Inspection: abdomen appears normal, Palpation: soft, in all quadrants, severe abdominal tenderness, in the right upper quadrant and left upper quadrant. Vital Signs: 06:39 BP 183 / 127; Pulse 131; Resp 16; Temp 99; Pulse Ox 100% on R/A; Weight 79.83 kg (R); bp Height 5 ft. 2 in. (157.48 cm) (R); 07:30 BP 193 / 118; Pulse 100; Resp 20; Pulse Ox 100% ; bp 08:30 BP 182 / 113; Pulse 86; Resp 17; Pulse Ox 100% ; bp 06:39 Body Mass Index 32.19 (79.83 kg, 157.48 cm) bp MDM: 06:39 Patient medically screened. kb 06:55 Data reviewed: vital signs, nurses notes. Data interpreted: Pulse oximetry: on room air kb is 100 %. Interpretation: normal. 08:49 Counseling: I had a detailed discussion with the patient and/or guardian regarding: the kb historical points, exam findings, and any diagnostic results supporting the discharge/admit diagnosis, lab results, radiology results, the need for further work-up and treatment in the hospital. Physician consultation: Kevin Chang MD was contacted at 08:49, regarding admission, to the medical/surgical unit. patient's condition, and will see patient in ED. 11/25 06:39 Order name: CBC with Diff; Complete Time: 07:23 kb 11/25 06:39 Order name: CMP; Complete Time: 07:29 kb 11/25 06:39 Order name: Lipase; Complete Time: 07:29 kb 11/25 06:39 Order name: Type And Screen; Complete Time: 08:37 kb 11/25 08:07 Order name: Occult Blood--Ancillary; Complete Time: 08:26 bd 11/25 08:11 Order name: COVID-19 SARS RT PCR (Document "Date of Onset" if Symptomatic); Complete bd Time: 10:35 11/25 09:14 Order name: Urinalysis EDMS 11/25 09:14 Order name: CBC with Automated Diff EDMS 11/25 09:14 Order name: CBC with Automated Diff EDMS 11/25 09:14 Order name: Comprehensive Metabolic Panel EDMS 11/25 09:14 Order name: Comprehensive Metabolic Panel EDMS 11/25 09:14 Order name: Magnesium EDMS 11/25 09:14 Order name: Magnesium EDMS 11/25 09:14 Order name: Phosphorus EDMS 11/25 06:46 Order name: CT Abd/Pelvis - Without Contrast; Complete Time: 07:29 kb 11/25 07:23 Order name: EKG Electrocardiogram EDMS 11/25 09:14 Order name: CONS Physician Consult EDMS 11/25 09:14 Order name: Clear Liquid EDMS 11/25 09:14 Order name: Phosphorus EDMS 11/25 17:44 Order name: Urine Dipstick-Ancillary; Complete Time: 17:46 EDMS 11/25 18:01 Order name: Urinalysis EDMS 11/25 18:06 Order name: Urine Microscopic Only EDMS 11/26 07:45 Order name: RAD EDMS 11/25 06:39 Order name: IV Saline Lock; Complete Time: 07:01 kb 11/25 06:39 Order name: Labs collected and sent; Complete Time: 07:06 kb 11/25 08:44 Order name: Vital Signs; Complete Time: 08:52 kb Administered Medications: 07:06 Drug: Dilaudid (HYDROmorphone) 1 mg Route: IVP; Site: left upper arm; kd3 07:30 Follow up: Response: Pain is decreased bp 07:07 Drug: Zofran (Ondansetron) 4 mg Route: IVP; Site: left upper arm; kd3 07:30 Follow up: Response: Nausea is decreased bp 07:30 Drug: NS 0.9% 1000 ml Route: IV; Rate: 1 bolus; Site: left upper arm; bp 08:52 Follow up: IV Status: Completed infusion; IV Intake: 1000ml bp 07:30 Drug: Dilaudid (HYDROmorphone) 1 mg Route: IVP; Site: left upper arm; bp 08:52 Follow up: Response: Pain is decreased bp 09:00 Drug: NS 0.9% 1000 ml Route: IV; Rate: 75 ml/hr; Site: left upper arm; bp 09:00 Drug: Flagyl (metroNIDAZOLE) 500 mg Volume: 100 ml; Route: IVPB; Rate: 200 ml/hr; bp Infused Over: 30 mins; Site: left upper arm; 09:49 Follow up: IV Status: Completed infusion; IV Intake: 100ml bp 09:45 Drug: Cipro (ciprofloxacin) 400 mg Volume: 200 ml; Route: IVPB; Infused Over: 60 mins; bp Site: left upper arm; Disposition Summary: 11/25/21 08:50 Hospitalization Ordered Hospitalization Status: Observation kb Provider: Kevin Chang Condition: Stable kb Problem: new kb Symptoms: are unchanged kb Bed/Room Type: Standard kb Location: [facility] ER HOLD(11/25/21 12:26) Room Assignment: ERHOLD-(11/25/21 12:26) Diagnosis - enterocolitis kb - Unspecified kidney failure - acute on chronic kb Forms: - Medication Reconciliation Form kb - SBAR form kb Signatures: Dispatcher [employer] EDMS Lucy Luther, QA SOFTWARE TESTER-C QA SOFTWARE TESTER-Saray Medel RN RN Mando Cooper RN RN Reba Alfaro RN RN kd3 Glenroy Powers Corrections: (The following items were deleted from the chart) 08:50 06:53 Abdomen/GI: Positive for abdominal pain, rectal bleeding, kb kb 12:26 08:50 Telemetry/MedSurg (observation) kb 12:26 08:50 kb ss
--- NOTE | 2021-11-25 08:51 | ER ---
Nurse's Notes [facility] Name: Babs Younger Age: 51 yrs Sex: Female : 1970 Arrival Date: 11/25/2021 Time: 06:38 Bed 26 Private MD: Diagnosis: enterocolitis;Unspecified kidney failure-acute on chronic Presentation: 11/25 06:39 Chief complaint: EMS states: they were called out because patient was c/o severe al4 abdominal pain and on the way to the ED the patient had a 20 second seizure. Coronavirus screen: Vaccine status: Patient reports receiving the 2nd dose of the covid vaccine. moderna. Ebola Screen: No symptoms or risks identified at this time. Initial Sepsis Screen: Does the patient meet any 2 criteria? No. Patient's initial sepsis screen is negative. Does the patient have a suspected source of infection? No. Patient's initial sepsis screen is negative. Risk Assessment: Do you want to hurt yourself or someone else? Patient reports no desire to harm self or others. Onset of symptoms was November 25, 2021. 06:39 Method Of Arrival: EMS al4 06:39 Acuity: ELVA 3 al4 Triage Assessment: 06:43 General: Appears uncomfortable, Behavior is anxious, crying, patient reports vomiting x al4 3 and abdomen pain "feels like my intestines are pushed to the side". Pain: Complains of pain in abdomen. Neuro: Level of Consciousness is awake, alert, obeys commands, Oriented to person, place, time, situation. Cardiovascular: Capillary refill < 3 seconds Patient's skin is warm and dry. Respiratory: Airway is patent Respiratory effort is unlabored, Respiratory pattern is regular. GI: Reports lower abdominal pain, upper abdominal pain, bloody stool, nausea, vomiting. Musculoskeletal: Circulation, motion, and sensation intact. Historical: - Allergies: 06:43 Morphine; al4 06:43 SHELLFISH; al4 - PMHx: 06:43 bowel obstruction; Diabetes - IDDM; ESRD; Hypertension; Lupus; Renal Disease; Seizures; al4 - PSHx: 06:43 Colostomy reversal; al4 - Immunization history:: Adult Immunizations up to date, Client reports receiving the 2nd dose of the Covid vaccine. - Social history:: Smoking status: Patient denies any tobacco usage or history of. Screenin:00 Abuse screen: Denies threats or abuse. Denies injuries from another. Nutritional bp screening: No deficits noted. Tuberculosis screening: No symptoms or risk factors identified. Fall Risk None identified. Assessment: 06:39 Reassessment: ER SNOW REMOVER at bedside during triage with EMS. al4 06:58 Reassessment: pt to CT scan via stretcher accompanied by surveying technician. bb 07:00 Reassessment: RECD REPORT FROM DARCY SMITH. 51YO BF P/W ABDOMINAL PAIN, H/O EXTENSIVE bp ABDOMINAL DISEASE. PT IN CT AT THIS TIME. 07:28 Reassessment: PT RETURNED FROM CT. bp 08:30 Reassessment: No changes from previously documented assessment. Patient and/or family bp updated on plan of care and expected duration. Pain level reassessed. ALL CURRENT ORDERS COMPLETE. Vital Signs: 06:39 BP 183 / 127; Pulse 131; Resp 16; Temp 99; Pulse Ox 100% on R/A; Weight 79.83 kg (R); bp Height 5 ft. 2 in. (157.48 cm) (R); 07:30 BP 193 / 118; Pulse 100; Resp 20; Pulse Ox 100% ; bp 08:30 BP 182 / 113; Pulse 86; Resp 17; Pulse Ox 100% ; bp 06:39 Body Mass Index 32.19 (79.83 kg, 157.48 cm) bp ED Course: 06:38 Patient arrived in ED. bb 06:39 Lucy Luther FNP-C is PHCP. kb 06:39 Christiano Elizondo MD is Attending Physician. kb 06:39 Arm band placed on. al4 06:43 Triage completed. al4 06:50 Initial lab(s) drawn, by in, sent to lab. T\\T\\S collected, blood band applied to patient. bb Accessed peripheral vein via ultrasound, utilizing dynamic ultrasound technique Powerglide midline 20g 10cm with good blood return and flushes easily blood collected pt tolerated well. 07:00 Patient has correct armband on for positive identification. Placed in gown. Bed in low bp position. Call light in reach. Side rails up X2. 07:13 CT Abd/Pelvis - Without Contrast In Process Unspecified. EDMS 07:17 Mando Cooper, RN is Primary Nurse. 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 bp 08:49 Omitogun, Kevin, MD is Hospitalizing Provider. kb 12:20 bathroom assistance. zm 19:41 Primary Nurse role handed off by Mando Cooper, RN mw2 Administered Medications: 07:06 Drug: Dilaudid (HYDROmorphone) 1 mg Route: IVP; Site: left upper arm; kd3 07:30 Follow up: Response: Pain is decreased bp 07:07 Drug: Zofran (Ondansetron) 4 mg Route: IVP; Site: left upper arm; kd3 07:30 Follow up: Response: Nausea is decreased bp 07:30 Drug: NS 0.9% 1000 ml Route: IV; Rate: 1 bolus; Site: left upper arm; bp 08:52 Follow up: IV Status: Completed infusion; IV Intake: 1000ml bp 07:30 Drug: Dilaudid (HYDROmorphone) 1 mg Route: IVP; Site: left upper arm; bp 08:52 Follow up: Response: Pain is decreased bp 09:00 Drug: NS 0.9% 1000 ml Route: IV; Rate: 75 ml/hr; Site: left upper arm; bp 09:00 Drug: Flagyl (metroNIDAZOLE) 500 mg Volume: 100 ml; Route: IVPB; Rate: 200 ml/hr; bp Infused Over: 30 mins; Site: left upper arm; 09:49 Follow up: IV Status: Completed infusion; IV Intake: 100ml bp 09:45 Drug: Cipro (ciprofloxacin) 400 mg Volume: 200 ml; Route: IVPB; Infused Over: 60 mins; bp Site: left upper arm; Intake: 08:52 IV: 1000ml; Total: 1000ml. bp 09:49 IV: 100ml; Total: 1100ml. bp Outcome: 08:50 Decision to Hospitalize by Provider. kb 11/26 10:41 Patient left the ED. gd Signatures: Dispatcher [employer] EDMS Lucy Luther, DONNA YOUNG-Darcy Carrasco RN RN bb Mando Cooper, RN RN bp Isabela Steward mw2 Thomas Meyer Kyli, RN RN kd3 Glenroy Powers Zaina zm Corrections: (The following items were deleted from the chart) 11/25 06:47 06:39 BP 183 / 127; Pulse 131bpm; Resp 16bpm; Temp 99F; 79.83 kg Reported; Height 5 ft. al4 2 in. Reported; BMI: 32.1; al4 06:49 06:48 Reassessment: ER SNOW REMOVER at bedside during triage with EMS al4 al4 07:06 06:43 GI: Reports lower abdominal pain, upper abdominal pain, nausea, vomiting, al4 al4 07:29 07:10 Abuse screen: Denies threats or abuse. Denies injuries from another. bp bp : 07:10 Nutritional screening: No deficits noted. bp bp : 07:10 Tuberculosis screening: No symptoms or risk factors identified. bp bp : 07:10 Fall Risk None identified. bp bp 13:43 06:39 BP 183 / 127; Pulse 131bpm; Resp 16bpm; Pulse Ox 100% RA; Temp 99F; 79.83 kg bp Reported; Height 5 ft. 2 in. Reported; BMI: 32.1; al4
[2021-11-25] MEDS ORDERED: ONDANSETRON 4 MG/2 ML VIAL IV PRN (09:08)
[2021-11-25] MEDS ORDERED: METRONIDAZOLE 500mg IVPB 500 MG/100 ML BAG IV ONE ×2 (09:10→16:47)
[2021-11-25] MEDS ORDERED: CIPROFLOXACIN 400mg IV 400 MG/200 ML BAG IV ONE (09:10)
[2021-11-25] MEDS: Ringers Lactate 1,000 ML IV SCH ×2 (10:00→20:00)
--- NOTE | 2021-11-25 10:52 | P.HP ---
Certification for Inpatient With expected LOS: >2 Midnights Patient will require the following post-hospital care: None Practitioner: I am a practitioner with admitting privileges, knowledge of patient current condition, hospital course, and medical plan of care. Services: Services provided to patient in accordance with Admission requirements found in Title 42 Section 412.3 of the Code of Federal Regulations Patient History Date of Service: 11/25/21 Reason for admission: Pain, bloody diarrhea. History of Present Illness: 51-year-old female patient with history of hypertension, hyperlipidemia, history of lupus nephritis, colitis and recurrent abdominal pain who was evaluated in the emergency room for episode of abdominal pain. She also been having diarrhea which is bloody for a couple of days. She also had issues with nausea with vomiting but she denied overt episode of chest pain, overt fever, chills. She has significant pain making her to come to the ER and in the ER imaging study revealed some colon pathology however there was no overt evidence of obstruction. She was admitted for antibiotic therapy pain control and for nephrology evaluation as she had significantly elevated creatinine of 2.35 up from a known baseline about 1.7. Allergies morphine Allergy (Severe, Verified 09/07/17 09:12) Unknown Home Medications: Hydralazine HCl 100 mg PO TID 07/09/15 Metoprolol Tartrate 100 mg PO BID 07/09/15 Amlodipine [Norvasc*] 10 mg PO DAILY 08/08/15 Gabapentin 300 mg PO TID 09/07/17 Hydroxychloroquine [Plaquenil*] 200 mg PO BID 09/07/17 Zolpidem Tartrate [Ambien] 10 mg PO BEDTIME PRN PRN 09/07/17 Mycophenolate Mofetil [Cellcept] 2 tab PO BID 08/02/19 Furosemide [Lasix*] 1 tab PO BID 08/30/20 Ondansetron [Zofran (Odt)*] 1 tab PO DAILY PRN 08/30/20 Alprazolam [Xanax] 1 tab PO BID 04/25/21 Na Bicarb Tab [Sodium Bicarb 325 MG Tab*] 650 mg PO BID 04/25/21 calcitrioL [Rocaltrol] 0.25 mcg PO Q48H 11/19/21 Doxazosin [Cardura*] 4 mg PO DAILY tab 11/20/21 Hydrocodone 7.5/APAP 325 [[place] 7.5/325 mg] 1 tab PO Q6H PRN #30 tab 11/20/21 cloNIDine HCL [Catapres*] 0.6 mg PO TID #0 tablet 11/20/21 - Past Medical/Surgical History Diabetic: No -: Lupus, Rheumatology-Dr. Rothman -: HTN -: Seizure disorder -: History of Small bowel obstruction -: Ileostomy in place -: CAD -: History of avascular necrosis -: History of pyelonephritis -: Depression with history of suicidal ideation -: depression -: CKD, Lupus Nephritis followed by Dr. Jean-Baptiste -: -: Hysterectomy -: Bowel resection -: Colostomy -: trach (reversed) -: Removal of colostomy now with ileostomy Psychosocial/ Personal History: single, one child. - Family History Sister Notes: lupus Father -: Kidney disease Notes: Mother -: Hypertension, Cancer Notes: , uterine Brother -: Hypertension, Diabetes - Social History Alcohol use: No CD- Drugs: No Caffeine use: Yes Review of Systems General: Malaise Eyes: Unremarkable ENT: Unremarkable Respiratory: Unremarkable Cardiovascular: Unremarkable Gastrointestinal: Abdominal Pain, Diarrhea, Hematochezia Genitourinary: Unremarkable Neurological: Unremarkable Physical Examination - Physical Exam General: Alert, Moderate distress HEENT: Atraumatic, Normocephalic Neck: Supple Respiratory: Normal air movement Cardiovascular: Regular rate/rhythm, Normal S1 S2 Gastrointestinal: Soft and benign Neurological: Normal speech, Normal strength at 5/5 x4 extr, Cranial nerves 3-12 intact - Studies Laboratory Data (last 24 hrs) 11/25/21 06:50: Sodium 137, Potassium 3.1 L, BUN 32 H, Creatinine 2.35 H, Glucose 134 H, Total Bilirubin 0.5, AST 12 L, ALT 19, Alkaline Phosphatase 139 H, Lipase 56 L 11/25/21 06:50: WBC 9.8 D, Hgb 11.5 L, Hct 34.9 L, Plt Count 284 Microbiology Data (last 24 hrs): 11/25/21 08:07 Stool Occult Blood - Final Assessment and Plan - Plan 1. Colitis/hematochezia: Patient is a significant concerns for underlying colon pathology. We have started empiric antibiotic of ciprofloxacin and Flagyl for management of suspected colitis episode. We will monitor symptomatology closely. GI will evaluate as needed. We will continue Dilaudid for pain control secondary to ESRD status. 2. Hypertension: Poorly controlled We will continue home antihypertensive medication. Will adjust antihypertensive regimen to achieve goal blood pressure less than 130/80 mmHg. Monitor vital signs per unit protocol 3. History of lupus nephritis: We will continue mycophenolate as prescribed outpatient. Continue to monitor symptomatology. Nephrology to be consulted for management recommendation 4. Acute kidney injury on chronic kidney disease stage III. Creatinine is elevated 2.3 from baseline of 1.7. we will hydrate patient gently and monitor renal function closely. we will dose medication for symmetrical filtration and avoid exposure to nephrotoxic agents. 5. Anemia: Due to renal disease and perhaps blood prednisone monitor H&H on daily basis. We will transfuse hemoglobin less than 7.0. 6. Hyperlipidemia: We will continue statin therapy. 7. Hypokalemia: Potassium is low at 3.1. We will replete and monitor. 8. Metabolic acidemia: Low bicarbonate noted at 20. We will replete and monitor. Prophylaxis: SCDs for DVT prophylaxis on concerns for bleeding episode. CODE STATUS: Full code. Discharge Plan: Home Plan to discharge in: 72 Hours - Advance Directives Does patient have a Living Will: No Does patient have a Durable POA for Healthcare: No - Code Status/Comfort Care Code Status: Full Code
[2021-11-25] MEDS: HYDROMORPHONE HCL 0.5 MG/0.5 ML INJ IV PRN ×3 (12:00→23:28)
[2021-11-25] MEDS ORDERED: Ringers Lactate 1,000 ML IV ONE (12:35)
[2021-11-25 14:31] VITALS: BMI 32.1
[2021-11-25] MEDS ORDERED: ZOLPIDEM TARTRATE 10 MG TABLET PO PRN (14:43)
[2021-11-25] MEDS: CLONIDINE HCL 0.3 MG TAB PO SCH ×2 (15:00→20:51)
[2021-11-25] MEDS: GABAPENTIN 300 MG CAP PO SCH ×2 (15:00→20:52)
[2021-11-25] MEDS: HYDRALAZINE HCL 25 MG TABLET PO SCH ×2 (15:00→20:51)
[2021-11-25] MEDS ORDERED: CALCITROL 0.25 MCG CAP PO SCH (15:00)
[2021-11-25] MEDS: ALPRAZOLAM 0.5 MG TABLET PO SCH ×2 (15:00→20:52)
[2021-11-25] MEDS: AMLODIPINE 10 MG TAB PO SCH (15:00)
[2021-11-25] MEDS: METOPROLOL TAR 50 MG TAB PO SCH ×2 (15:00→20:51)
[2021-11-25] MEDS: SODIUM BICARB 325 MG TAB PO SCH ×2 (15:00→20:52)
[2021-11-25] MEDS: HYDROXYCHLOROQUINE 200MG TAB PO SCH ×2 (15:00→20:52)
[2021-11-25] MEDS ORDERED: METOPROLOL TAR 50 MG TAB ONE ×2 (15:03→19:48)
[2021-11-25] MEDS ORDERED: ALPRAZOLAM 0.5 MG TABLET ONE ×2 (15:03→19:49)
[2021-11-25] MEDS ORDERED: HYDROCODONE/APAP 7.5/325 MG TAB ONE ×2 (15:04→19:50)
[2021-11-25] MEDS ORDERED: GABAPENTIN 300 MG CAP ONE ×2 (15:04→19:49)
[2021-11-25] MEDS: HYDROCODONE/APAP 7.5/325 MG TAB PO PRN (15:09)
[2021-11-25] MEDS ORDERED: HYDRALAZINE HCL 25 MG TABLET ONE ×2 (15:24→19:47)
[2021-11-25] MEDS ORDERED: AMLODIPINE 10 MG TAB ONE (15:24)
[2021-11-25] MEDS ORDERED: CALCITROL 0.25 MCG CAP PO ONE (15:39)
[2021-11-25] MEDS: DOXAZOSIN 4 MG TAB PO SCH (15:47)
[2021-11-25] MEDS ORDERED: HEPARIN 5000 UNIT/ML 1 ML VIAL ONE (16:46)
[2021-11-25] MEDS ORDERED: NA CHLORIDE 0.9% 0 ML IV ONE (16:46)
[2021-11-25] MEDS ORDERED: HEPARIN 5000 UNIT/ML 1 ML VIAL SQ SCH (17:00)
[2021-11-25] MEDS: METRONIDAZOLE 500mg IVPB 500 MG/100 ML BAG IV SCH (17:00)
[2021-11-25 17:43] LABS: Urine Blood Trace-intact (Negative); Urine Glucose Negative (Negative); Urine Protein 3+ (Negative); Urine Specific Gravity 1.015 (1.005-1.030); Urine pH 5.5 (5.0-7.0)
[2021-11-25 18:01] LABS: Urine Appearance Clear (Clear); Urine Bilirubin Negative (Negative); Urine Blood Trace-intact (Negative); Urine Color Yellow (Yellow); Urine Glucose Negative (Negative); Urine Protein 2+ (Negative); Urine Specific Gravity 1.015 (1.005-1.030); Urine Urobilinogen 0.2 mg/dL (0.2-1.0); Urine pH 5.5 (5.0-7.0)
[2021-11-25 18:04] LABS: Urine Microscopic Reflex ORDER UMIC
[2021-11-25 18:06] LABS: Urine Bacteria <20 /HPF (<20); Urine RBC <5 /HPF (NONE SEEN)
[2021-11-25] MEDS ORDERED: POTASSIUM CL SA 10 MEQ TAB PO ONE ×2 (19:42→19:50)
[2021-11-25] MEDS ORDERED: cloNIDine HCL 0.1 MG TAB ONE (19:48)
[2021-11-25] MEDS ORDERED: SODIUM BICARB 325 MG TAB PO ONE (20:07)
[2021-11-25] MEDS ORDERED: HYDROXYCHLOROQUINE 200MG TAB PO ONE (20:10)
[2021-11-25] MEDS ORDERED: HYDROMORPHONE HCL 1 MG/ML INJ IM ONE (20:38)
[2021-11-25] MEDS ORDERED: ZOLPIDEM TARTRATE 5 MG TABLET ONE (20:48)
[2021-11-25] MEDS: HOME MED 1 EA UNK (Mycophenolate Mofetil [Cellcept] 500 MG Tablet) PO SCH (20:51)
[2021-11-25] MEDS ORDERED: HOME MED 1 EA UNK (Metoprolol Tartrate [Metoprolol Tartrate] 100 MG Tablet) PO SCH (21:00)
[2021-11-25] MEDS ORDERED: HOME MED 1 EA UNK (Hydralazine Hcl [Hydralazine Hcl] 50 MG Tablet) PO SCH (21:00)
[2021-11-25 21:14] VITALS: O2SAT 100
[2021-11-26] MEDS ORDERED: METRONIDAZOLE 500mg IVPB 500 MG/100 ML BAG IV ONE ×2 (00:20→08:02)
[2021-11-26] MEDS: METRONIDAZOLE 500mg IVPB 500 MG/100 ML BAG IV SCH ×2 (00:21→08:35)
[2021-11-26] MEDS: HYDROCODONE/APAP 7.5/325 MG TAB PO PRN ×2 (02:20→08:39)
[2021-11-26] MEDS ORDERED: HYDROCODONE/APAP 7.5/325 MG TAB ONE ×2 (02:22→08:41)
[2021-11-26] MEDS ORDERED: Ringers Lactate 1,000 ML IV ONE (02:42)
[2021-11-26] MEDS ORDERED: HYDROMORPHONE HCL 0.5 MG/0.5 ML INJ ONE ×2 (02:42→05:09)
[2021-11-26] MEDS: HYDROMORPHONE HCL 0.5 MG/0.5 ML INJ IV PRN (03:10)
[2021-11-26] MEDS: Ringers Lactate 1,000 ML IV SCH (03:10)
[2021-11-26 03:37] LABS: Absolute Lymphocytes (CBC) 1.4 K/uL (0.7-4.9); Hematocrit 31.3 % (36.0-45.0); Lymphocytes % 30.2 % (15.3-44.8); MPV 7.2 fL (7.6-11.3); RBC Red Blood Cell Count 3.77 M/uL (3.86-4.86)
[2021-11-26 03:55] LABS: Albumin 2.8 g/dL (3.4-5.0); Bilirubin Total 0.4 mg/dL (0.2-1.0); Magnesium 1.8 mg/dL (1.8-2.4); Phosphorus 2.4 mg/dL (2.5-4.9); Potassium 3.9 mmol/L (3.5-5.1); Protein, Total 6.5 g/dL (6.4-8.2)
[2021-11-26] MEDS ORDERED: MAGNESIUM SULFATE 1 gm IVPB 1 GM/100 ML BAG IV ONE ×2 (04:21→04:28)
[2021-11-26] MEDS ORDERED: POTASSIUM CL SA 10 MEQ TAB PO ONE ×2 (04:21→04:28)
[2021-11-26] MEDS ORDERED: HYDROMORPHONE HCL 0.5 MG/0.5 ML INJ IV ONE (05:05)
[2021-11-26] MEDS ORDERED: METOCLOPRAMIDE 10 MG/2mL INJ ONE (05:29)
[2021-11-26] MEDS ORDERED: ONDANSETRON 4 MG/2 ML VIAL ONE (05:31)
[2021-11-26] MEDS ORDERED: METOCLOPRAMIDE 10 MG/2mL INJ IV ONE (06:00)
--- NOTE | 2021-11-26 07:45 | RAD REPORT ---
EXAM DESCRIPTION: RAD - Abdomen 1 View (KUB) - 11/26/2021 6:19 am CLINICAL HISTORY: Abdomen pain. FINDINGS: Overall the dilatation of large and small bowel is without significant change from October 292021. This probably represents either adynamic ileus or enteritis. Partial mechanical bowel obstru ction is considered less likely. If the patient's abdominal pain persists then a followup x-ray series would be recommended for re-prem luation.
[2021-11-26] MEDS ORDERED: METOPROLOL TAR 50 MG TAB ONE (08:01)
[2021-11-26] MEDS ORDERED: ALPRAZOLAM 0.5 MG TABLET ONE (08:01)
[2021-11-26] MEDS ORDERED: AMLODIPINE 10 MG TAB ONE (08:02)
[2021-11-26] MEDS ORDERED: GABAPENTIN 300 MG CAP ONE (08:02)
[2021-11-26] MEDS ORDERED: HYDRALAZINE HCL 25 MG TABLET ONE (08:06)
[2021-11-26] MEDS: METOPROLOL TAR 50 MG TAB PO SCH (08:29)
[2021-11-26] MEDS: GABAPENTIN 300 MG CAP PO SCH (08:29)
[2021-11-26] MEDS: DOXAZOSIN 4 MG TAB PO SCH (08:30)
[2021-11-26] MEDS: AMLODIPINE 10 MG TAB PO SCH (08:30)
[2021-11-26] MEDS: SODIUM BICARB 325 MG TAB PO SCH (08:30)
[2021-11-26] MEDS: ALPRAZOLAM 0.5 MG TABLET PO SCH (08:30)
[2021-11-26] MEDS: HYDRALAZINE HCL 25 MG TABLET PO SCH (08:31)
[2021-11-26] MEDS: HOME MED 1 EA UNK (Mycophenolate Mofetil [Cellcept] 500 MG Tablet) PO SCH (08:31)
[2021-11-26] MEDS: HYDROXYCHLOROQUINE 200MG TAB PO SCH (08:31)
[2021-11-26] MEDS: CLONIDINE HCL 0.3 MG TAB PO SCH (08:32)
[2021-11-26 08:35] VITALS: BP 170/111
--- NOTE | 2021-11-26 09:26 | P.DS ---
Admission Date: 11/25/21 Discharge Date: 11/26/21 Disposition: ROUTINE DISCHARGE Discharge Condition: GOOD Reason for Admission: Pain, bloody diarrhea. Brief History of Present Illness: 51-year-old female patient with history of hypertension, hyperlipidemia, history of lupus nephritis, colitis and recurrent abdominal pain who was evaluated in the emergency room for episode of abdominal pain. She also been having diarrhea which is bloody for a couple of days. She also had issues with nausea with vomiting but she denied overt episode of chest pain, overt fever, chills. She has significant pain making her to come to the ER and in the ER imaging study revealed some colon pathology however there was no overt evidence of obstruction. She was admitted for antibiotic therapy pain control and for nephrology evaluation as she had significantly elevated creatinine of 2.35 up from a known baseline about 1.7. Hospital Course: She was admitted for management of suspected infectious colitis/gastroenteritis and she was started on empiric antibiotic of ciprofloxacin and Flagyl. She has had pain control with Dilaudid on board. She was hydrated with IV fluids and electrode abnormality of hypokalemia was replaced. She had significant improvement in symptom and initially her blood pressure was elevated but this is well controlled with oral medications. She was deemed stable for discharge today as creatinine had trended down from 2.35-1.6 depicting resolution of acute kidney injury episode. She will follow up with sap architect on outpatient and also circuit designer for management of her lupus disease. A prescription of oral Flagyl for a week was given for management of suspected infectious colitis. Vital Signs/Physical Exam: Temp Pulse Resp BP Pulse Ox 97.9 F 73 16 170/111 H 100 11/26/21 04:00 11/26/21 08:32 11/26/21 08:39 11/26/21 08:32 11/26/21 08:39 Laboratory Data at Discharge: WBC 4.6 K/uL (4.3-10.9) D 11/26/21 03:06 Hgb 10.4 g/dL (12.0-15.0) L 11/26/21 03:06 Hct 31.3 % (36.0-45.0) L 11/26/21 03:06 Plt Count 241 K/uL (152-406) 11/26/21 03:06 Sodium 139 mmol/L (136-145) 11/26/21 03:06 Potassium 3.9 mmol/L (3.5-5.1) 11/26/21 03:06 BUN 25 mg/dL (7-18) H 11/26/21 03:06 Creatinine 1.64 mg/dL (0.55-1.3) H 11/26/21 03:06 Glucose 117 mg/dL (74-106) H 11/26/21 03:06 Phosphorus 2.4 mg/dL (2.5-4.9) L 11/26/21 03:06 Magnesium 1.8 mg/dL (1.8-2.4) D 11/26/21 03:06 Total Bilirubin 0.4 mg/dL (0.2-1.0) 11/26/21 03:06 AST 13 U/L (15-37) L 11/26/21 03:06 ALT 15 U/L (12-78) 11/26/21 03:06 Alkaline Phosphatase 107 U/L (45-117) 11/26/21 03:06 Lipase 56 U/L (73-393) L 11/25/21 06:50 Home Medications: Hydralazine HCl 100 mg PO TID 07/09/15 Metoprolol Tartrate 100 mg PO BID 07/09/15 Amlodipine [Norvasc*] 10 mg PO DAILY 08/08/15 Gabapentin 300 mg PO TID 09/07/17 Hydroxychloroquine [Plaquenil*] 200 mg PO BID 09/07/17 Zolpidem Tartrate [Ambien] 10 mg PO BEDTIME PRN PRN 09/07/17 Mycophenolate Mofetil [Cellcept] 2 tab PO BID 08/02/19 Ondansetron [Zofran (Odt)*] 1 tab PO DAILY PRN 08/30/20 Alprazolam [Xanax] 1 tab PO BID 04/25/21 Na Bicarb Tab [Sodium Bicarb 325 MG Tab*] 650 mg PO BID 04/25/21 calcitrioL [Rocaltrol] 0.25 mcg PO Q48H 11/19/21 Doxazosin [Cardura*] 4 mg PO DAILY tab 11/20/21 Hydrocodone 7.5/APAP 325 [[place] 7.5/325 mg*] 1 tab PO Q6H PRN #30 tab 11/20/21 cloNIDine HCL [Catapres*] 0.6 mg PO TID #0 tablet 11/20/21 metroNIDAZOLE [Flagyl] 500 mg PO TID 7 Days #21 tablet 11/26/21 New Medications: metroNIDAZOLE [Flagyl] 500 mg PO TID 7 Days #21 tablet Followup: Unknown,U [Primary Care Provider] -
[2021-11-26] MEDS ORDERED: CIPROFLOXACIN 400mg IV 400 MG/200 ML BAG IV SCH (10:00)
[2021-11-26 10:46] VITALS: TEMP 97.6
== END 2021-11-26 10:15 | disposition home or self-care (01) ==
LOC: ER 06:37 → ERHOLD 09:23 → INTOOBSV 09:23 → ERHOLD 13:51
PROVIDERS: ADMIT Internal Medicine Nephrology; ATTEND Internal Medicine Nephrology
DX: N17.9 Acute kidney failure, unspecified (principal); I12.9 Hypertensive chronic kidney disease with stage 1 through stage 4 chronic kidney disease, or unspecified chronic kidney disease; N18.30 Chronic kidney disease, stage 3 unspecified; R10.9 Unspecified abdominal pain; K92.1 Melena; E87.6 Hypokalemia; M32.9 Systemic lupus erythematosus, unspecified; M32.14 Glomerular disease in systemic lupus erythematosus; I25.10 Atherosclerotic heart disease of native coronary artery without angina pectoris; E78.5 Hyperlipidemia, unspecified; D64.9 Anemia, unspecified; E87.2 Acidosis; G40.909 Epilepsy, unspecified, not intractable, without status epilepticus; F32.A Depression, unspecified; Z20.822 Contact with and (suspected) exposure to COVID-19; Z93.2 Ileostomy status; Z79.899 Other long term (current) drug therapy; Z88.6 Allergy status to analgesic agent; Z90.49 Acquired absence of other specified parts of digestive tract; Z90.710 Acquired absence of both cervix and uterus; Z84.1 Family history of disorders of kidney and ureter; Z83.3 Family history of diabetes mellitus; Z82.49 Family history of ischemic heart disease and other diseases of the circulatory system; Z80.49 Family history of malignant neoplasm of other genital organs; Z84.89 Family history of other specified conditions; R19.7 Diarrhea, unspecified
CPT/HCPCS: 96365; 96361; 93005; 85025 ×2; 36415; 86900; 83735; 86850; 84100; 86901; 82272; 83690; 80053 ×2; 74176; 74018; 96375; 99284; U0003; J2765; J1644; J3475; J1170 ×9; J7120 ×2; J7030 ×2; J2405 ×2; J0744; G0378 ×3; 81003; 81015

== ENCOUNTER 2022-01-25 23:27 | Inpatient (IN) | payer OTHER ==
--- OUTSIDE RECORDS SUMMARY | 2022-01-25 23:33 | XMS REPORT | Continuity of Care Document ---
:1970 Author Organization [facility] t Address [address] [place] [address] Care Team Providers Name Role Phone Dorota Espinoza DO Primary Care Physician Joao WALTER S Attending Clinician Flower LUONG S Attending Clinician Tess GRAF Attending Clinician Unavailable Zion WALTER T Attending Clinician Jonnathan PEDRO Attending Clinician Unavailable Jonnathan PEDRO Attending Clinician Unavailable Doctor Unassigned, Name Attending Clinician Unavailable CAROLYN LI Attending Clinician Unavailable CAROLYN LI Admitting Clinician Unavailable Payers Payer Name Policy Type Policy Number Effective Date Expiration Date S tonnyce [place]ICAID OF [place] [id number] 2014 00:00:00 [facility] [id number] 2017 DUAL COMPLETE 00:00:00 Problems Condition Condition [...] Active 2018-08 Met hodi to to 09-01 colostomy colostomy 00:00: [facility] 00 l History of History of Disease Active 2018-08 M ethodi ischemic ischemic 0-17 st colitis colitis 00:00: Hospita 00 l Abdominal Abdominal Disease Active 2017-[address] [facility] pain [facility] 09-27 [facility] 00:[facility]: [facility] 00 Center Systemic Systemic Disease Active 2017-[facility] lupus lupus 09-27 [facility] erythemato erythemato 00:00: Sc dical al al 00 Center Essential Essential Disease Active 2017-[address] [facility] hypertensi hypertensi -30 [facility] on on 00:00: Medical 00 Center Type 2 Type 2 Disease Active 2017-[address] [facility] diabetes diabetes 09-27 [facility] mellitus mellitus 00:00: Medica l with with 00 Center kidney kidney complicati complicati on, with on, with long-term long-term current current use of use of insulin insulin Colostomy Colostomy Disease Active 2017-[address] complicati complicati 30 [facility] on on 00:00: Medical 00 [place] bright red bright red Disease Active 2017-[address] blood in blood in 30 [facility] colostomy colostomy 00:00: Medi valentin 00 Center HTN HTN Disease Active 2017-[address] [facility] (hypertens (hypertens -30 [facility] k[facility] ion), ion), 00:00: Medical malignant malignant 00 Cent er Lupus Lupus Disease Active 2017-[address] nephritis nephritis 1-30 Luke s 00:00: [facility] 00 Center DAE (acute DAE (acute Disease Active 2017-[address] kidney kidney 1-30 [facility] injury) injury) 00:00: Medical 00 Center Hypernatre Hypernatre Disease Active 2017-[address] charisse charisse 1-30 [facility] 00:00: Center Hypokalemi Hypokalemi Disease Active 2017-[address] a a 1-30 [facility] 00:00: Medical 00 Center Bowel Bowel Disease Active Univers obstructio obstructio 3-20 it y of n n 00:00: [place] [facility] Colonic Colonic Disease Active Univers obstructio obstructio 3-19 it y of n n 00:00: [place] [facility] Colostomy Colostomy Disease Active Met hodi in place in place 02-23 st 00:00: Hospita 00 l Seizure Seizure Disease Active Univers 9-21 ity of 00:00: [place] [facility] Obesity Obesity Disease Active Univers (BMI (BMI 9-20 ity of 30-39.9) 30-39.9) 00:00: [place] [facility] Pulmonary Pulmonary Disease Active Uni vers edema edema 8-28 ity of 00:00: [place] [facility] Systemic Systemic Disease Active Unive rs lupus lupus 2-23 ity of erythemato erythemato 00:[place] Depression Depression Disease Active U nivers , major , major 2-18 ity of 00:00: [place] [facility] DAE (acute DAE (acute Disease Active U nivers kidney kidney 2-12 ity of injury) injury) 00:00: [place] [facility] HTN HTN Disease Active Univers (hypertens (hypertens 2-12 it y of ion) ion) 00:00: [place] [facility] Lupus Lupus Disease Active Univers nephritis nephritis 2-11 ity of 00:00: [place] [facility] Allergies, Adverse Reactions, Alerts Allergy Allergy Status Severity Reaction(s) Onset Inactive Treating Comm ents Source Name Type Date Date Clinician Anjali Downey Active 2017-[address] [facility] [facility] ty to 30 [facility] Containi adverse 00:00: Medical ng reaction 00 Center Products s SHELLFIS Allergy Active 2017-[address] H 09-27 [facility] CONTAINI 00:00: Medical NG 00 Center PRODUCTS [...] reaction 00 l Products s to drug MORPHINE DRUG Active Med Palpitations [place] INGREDI 05-13 ity of 00:00: [place] 00 Medical Branch Morphine Propensi Active Palpitations Univers ty to 05-13 ity of adverse 00:00: [place] reaction 00 Medical s to Branch drug Family History Family Member Diagnosis Comments Start Date Stop Date Source Natural mother Cancer [facility] Natural mother Hypertension [facility] Natural mother Uterine cancer Method [facility] Natural sister Diabetes [facility] Natural father Kidney disease [facility] Natural father Kidney cancer [facility] Social History Social Habit Start Date Stop Date Quantity Comments Source Exposure to Not sure [facility] SARS-CoV-2 [place] [facility] (event) Branch History SDOH [facility] Alcohol Std Medical Cente r Drinks History SDOH [facility] Alcohol Binge Medical T[address] Tobacco use and 2021-03-27 2021-03-27 Never used Universit y of exposure 00:00:00 00:00:00 [facility] Alcohol intake 2021-03-27 2021-03-27 Current University 00:00:00 00:00:00 non-drinker of [facility] alcohol Branch (finding) History SDOH 2018-07-28 2018-07-[address] [facility] Alcohol Frequency 00:00:00 00:00:00 [facility] Sex Ass[birth year] At [birth year] Universit y of 00:00:00 00:00:00 [facility] Smoking Status Start Date Stop Date Source Never smoker [facility] Branch Medications Ordered Filled Start Stop Current [...] xas 25 mg in 00 :00 dose, Fri Medica l NaCl 0.9% 03/27/21 at [facility] ch (NS) 50 mL 0230, 50 piggyback mL FENTanyl PF 2020- No 100ug 100 mcg, [facility] (SUBLIMAZE 03-27 Slow IV ity o f (PF)) 07:30: 06:31 Push, [place] injection 00 :00 ONCE, 1 Medical 100 mcg dose, Fri Branch 03/27/21 at 0230, Routine amoxicillin Yes [id number] 875mg Take 1 Univers 875 mg 5-20 [id number] tablet by ity of tablet 00:00: mouth 2 [place] 00 (two) Medical times Branch daily. amoxicillin Yes [id number] 875mg Take 1 Univers 875 mg 5-20 [id number] tablet by ity of tablet 00:00: mouth 2 [place] 00 (two) Medical times Branch daily. neomycin-po 2020- No [id number] 3[drp] Place 3 Univers lymyxin-hyd 5-20 - 02505 Drops in it y of rocortisone 00:00: 04:59 right ear [place] 3.5-10,000- 00 :00 4 (four) Medi valentin 1 times [place] mg/mL-unit/ daily for mL-% otic 7 days. susp ALPRAZolam Yes .5mg Q.5D Take 0.5 Met hodi (XANAX) 0.5 1-[address] MG tablet 22:02: mouth 2 Hospi ta 14 (two) l times a day as needed for anxiety. sertraline Yes 25mg QD Take 25 mg M [...] 22:02: needed. Hosp [facility] ORAL) 14 l doxazosin 2017-08 Yes 4mg Take [address] (CARDURA) 2 2-04 by mouth. Jose es MG tablet 08:16: [address] pantoprazol 2017-08 Yes 40mg QD Take [address] [facility] e 2-04 by mouth [facility] (PROTONIX) 08:16: daily. Medic al 40 MG 44 Center tablet doxazosin 2017-08 Yes 4mg Take [address] (CARDURA) 2 2-04 by mouth. Jose es MG tablet 08:16: [address] pantoprazol 2017-08 Yes 40mg QD Take [address] [facility] e 2-04 by mouth [facility] (PROTONIX) 08:16: daily. Medic al 40 MG 44 Center tablet zolpidem 2017-08 Yes 10mg QD Take [address] (AMBIEN) 10 1-25 by mouth Luke s mg tablet 00:00: nightly. [address] zolpidem 2017-08 Yes 10mg QD Take [address] (AMBIEN) 10 1-25 by mouth Luke s mg tablet 00:00: nightly. [address] ondansetron 2017-08 Yes DIS [address] [facility] (ZOFRAN-ODT 1-23 THE TONGUE Gilda kes ) 8 MG 00:00: BID Medical disintegrat 00 Center ing tablet ondansetron 2017-08 Yes DIS [address] [facility] (ZOFRAN-ODT 1-23 THE TONGUE Gilda kes ) 8 MG 00:00: BID Medical disintegrat 00 Center ing tablet HYDROcodone 2017-08 Yes TK [address] [facility] -acetaminop 1-15 Q 8 H PRN Jose es hen (NORCO 00:00: Medical 103[address]) 00 Center 10-325 mg per tablet HYDROcodone 2017-08 Yes TK [address] T [address] [facility] -acetaminop 1-15 Q 8 H PRN Jose es hen (NORCO 00:00: Medical 10325) 00 Center 10-325 mg per tablet HUMULIN 2017-08 Yes INJECT 60 CHI S t 70/30 U-100 1-09 UNITS SQ Luke s KWIKPEN 100 00:00: QAM AND 40 Medical unit/mL 00 UNITS QPM Center (70-30) InPn insulin pen HUMULIN 2017-08 Yes INJECT 60 CHI S t 70/30 U-100 1-09 UNITS SQ Luke s KWIKPEN 100 00:00: QAM AND 40 Medical unit/mL 00 UNITS QPM Center (7030) InPn insulin pen gabapentin 2017-08 Yes TK [address] [facility] (NEURONTIN) 0-10 HS PRN [facility] 100 MG 00:00: Medical capsule 00 Center hydroxychlo 2017-08 Yes TK [address] roquine 0-10 D [facility] (PLAQUENIL) 00:00: Medica l 200 mg 00 Center tablet gabapentin 2017-08 Yes TK [address] [facility] (NEURONTIN) 0-10 HS PRN [facility] 100 MG 00:00: Medical capsule 00 Center hydroxychlo 2017-08 Yes TK [address] [facility] roquine 0-10 D [facility] (PLAQUENIL) 00:00: Medica l 200 mg 00 Center tablet doxazosin Yes 4mg Take 4 mg Uni vers (CARDURA) 2 3-21 by mouth ity of mg tablet 20:00: daily. [place] 52 Medical Branch metoprolol Yes 100mg Take 100 [...] mouth ity of 10 mg 20:00: daily. [place] tablet 52 Medical Branch doxazosin 2018-0 Yes 4mg Take 4 mg Uni vers (CARDURA) 4 3-21 by mouth ity of mg tablet 20:00: daily. [place] [address] Medical Branch zolpidem 2018-0 Yes 10mg Take [...] mouth ity of mg tablet 20:00: daily. [place] [address] Medical Branch metoprolol 2018-0 Yes 100mg Take [...] mouth ity of 10 mg 20:00: daily. [place] tablet 52 Medical Branch doxazosin 2018-0 Yes 4mg Take 4 mg Uni vers (CARDURA) 4 3-21 by mouth ity of mg tablet 20:00: daily. [place] [address] Medical Branch zolpidem 2018-0 Yes 10mg Take [...] mouth ity of mg tablet 20:00: daily. [place] [address] Medical Branch metoprolol 2018-0 Yes 100mg Take [...] mouth ity of 10 mg 20:00: daily. [place] [address] Medical Branch doxazosin 2018-0 Yes 4mg Take 4 mg Uni vers (CARDURA) 4 3-21 by mouth ity of mg tablet 20:00: daily. [place] [address] Medical Branch zolpidem 2018-0 Yes 10mg Take [...] mouth ity of mg tablet 20:00: daily. [place] [address] Medical Branch metoprolol 2018-0 Yes 100mg Take [...] mouth ity of 10 mg 20:00: daily. [place] [address] Medical Branch doxazosin 2018-0 Yes 4mg Take 4 mg Uni vers (CARDURA) 4 3-21 by mouth ity of mg tablet 20:00: daily. [place] [address] Medical Branch zolpidem Yes 10mg Take 10 mg Uni vers (AMBIEN) 10 3-21 by mouth ity of mg tablet 20:00: [place]time [place] 52 as needed Medical for Branch Insomnia. hydroxychlo 20180 Yes 200mg Take 200 U nivers roquine 3-21 mg by ity of (PLAQUENIL) 20:00: mouth [place] 200 mg 52 daily. Medical tablet Branch doxazosin Yes 4mg Take 4 mg Uni vers (CARDURA) 2 3-21 by mouth ity of mg tablet 20:00: daily. [place] [address] Medical Branch metoprolol Yes 100mg Take 100 [...] 52 (six) Medical tablet hours. Branch amLODIPine Yes 10mg Take 10 mg U nivers (NORVASC) 3-21 by mouth ity of 10 mg 20:00: daily. [place] tablet 52 Medical Branch doxazosin 0 Yes 4mg Take 4 mg Uni vers (CARDURA) 4 3-21 by mouth ity of mg tablet 20:00: daily. [place] [address] Medical Branch zolpidem Yes 10mg Take 10 mg Uni vers (AMBIEN) 10 3-21 by mouth ity of mg tablet 20:00: [place]time [place] 52 as needed Medical for Branch Insomnia. hydroxychlo 0 Yes 200mg Take 200 U nivers roquine [...] (two) l tablet times a day. HYDROcodone 2016-0 Yes 1{tbl} Take 1 Un [place] -acetaminop 9-24 tablet by ity of hen ([employer]) 00:00: mouth [place] 10-325 mg 00 every 6 Medical tablet (six) Branch hours as needed for Pain (scale 7-10). HYDROcodone 2015-0 Yes 1{tbl} Take 1 Un [place] -acetaminop 9-24 tablet by ity of hen (NORCO) 00:00: mouth [place] 10-325 mg 00 every 6 Medical tablet (six) Branch hours as needed for Pain (scale 7-10). HYDROcodone 2015-0 Yes 1{tbl} Take 1 Un [place]ali[place] -acetaminop 9-24 tablet by ity of hen ([employer]) 00:00: mouth [place] 10-325 mg 00 every 6 Medical tablet (six) Branch hours as needed for Pain (scale 7-10). HYDROcodone 2015-0 Yes 1{tbl} Take 1 Un [place] -acetaminop 9-24 tablet by ity of hen ([email or web address]) 00:00: mouth [place] 10-325 mg 00 every 6 Medical tablet (six) Branch hours as needed for Pain (scale 7-10). HYDROcodone 2015-0 Yes 1{tbl} Take 1 Un [place]aliyah -acetaminop 9-24 tablet by ity of hen (Animeeple) 00:00: mouth [place] 10-325 mg 00 every [...] 00 (three) Medical times Branch daily. tiZANidine 2016-0 Yes TK 1 T PO Un aali[place]ah (ZANAFLEX) 8-22 QHS. ity of 2 mg tablet 00:00: Medical Branch ZOHYDRO ER 2015-0 Yes TK ONE C Uni vers 10 mg CR12 8-22 PO Q 12 H ity of 00:00: PRN. Medical Branch tiZANidine 2015-0 Yes TK 1 T PO Un aaliyah (ZANAFLEX) 8-22 QHS. ity of 2 mg tablet 00:00: Medical Branch ZOHYDRO ER 2016-0 Yes TK ONE C Uni vers 10 mg CR12 8-22 PO Q 12 H ity of 00:00: PRN. [facility] Branch tiZANidine Yes TK 1 T PO Un aaliyah (ZANAFLEX) 8-22 QHS. ity of 2 mg tablet 00:00: [facility] [place] ER Yes TK ONE C Uni vers 10 mg CR12 8-22 PO Q 12 H ity of 00:00: PRN. [facility] Branch tiZANidine Yes TK 1 T PO Un aaliyah (ZANAFLEX) 8-22 QHS. ity of 2 mg tablet 00:00: [facility] [place] ER Yes TK ONE C Uni vers 10 mg CR12 8-22 PO Q 12 H ity of 00:00: PRN. [facility] tiZANidine Yes TK 1 T PO Un aaliyah (ZANAFLEX) 8-22 QHS. ity of 2 mg tablet 00:00: [facility] [place] ER Yes TK ONE C Uni vers 10 mg CR12 8-22 PO Q 12 H ity of 00:00: PRN. [facility] furosemide Yes TK 1 T PO Un aaliyah (LASIX) 80 6-16 BID. ity of mg tablet 00:00: [facility] furosemide Yes TK 1 T PO Un aaliyah (LASIX) 80 6-16 BID. ity of mg tablet 00:00: [facility] furosemide Yes TK 1 T PO Un aaliyah (LASIX) 80 6-16 BID. ity of mg tablet 00:00: [facility] furosemide Yes TK 1 T PO Un aaliyah (LASIX) 80 6-16 BID. ity of mg tablet 00:00: [facility] furosemide Yes TK 1 T PO Un aaliyah (LASIX) 80 6-16 BID. ity of mg tablet 00:00: [facility] ONETOUCH Yes FPD Univers ULTRA2 Kit 6-13 ity of 00:00: [facility] ONETOUCH Yes FPD Univers ULTRA2 Kit 6-13 ity of 00:00: [facility] ONETOUCH Yes FPD Univers ULTRA2 Kit 6-13 ity of 00:00: [place] 00 Medical Branch ONETOUCH 2015-0 Yes FPD Univers ULTRA2 Kit 6-13 ity of 00:00: Medical Branch ONETOUCH 2015-0 Yes FPD Univers ULTRA2 Kit 6-13 ity of 00:00: Medical Branch ONE TOUCH 2015-0 Yes U TID. Univer s DELICA 33 6-12 ity of gauge Misc 00:00: Medical Branch ONE TOUCH 2015-0 Yes U TID. Univer s DELICA 33 6-12 ity of gauge Misc 00:00: [place] [facility] ONE TOUCH 2015-0 Yes U TID. Univer s DELICA 33 6-12 ity of gauge Misc 00:00: Medical Branch ONE TOUCH 2015-0 Yes U TID. Univer s DELICA 33 6-12 ity of gauge Misc 00:00: Medical Branch ONE TOUCH 2015-0 Yes U TID. Univer s DELICA 33 6-12 ity of gauge Misc 00:00: [place] [facility] cyclobenzap 2016-0 Yes 5mg Take [...] [facility] te 4-07 mg by [facility] (CELLCEPT) 00:00: mouth 2 Medi valentin 500 mg 00 (two) Center tablet times daily. mycophenola 2016-0 Yes 1000mg Q.5D Take 1,[address] te 4-07 mg by [facility]ukes (CELLCEPT) 00:00: mouth 2 Medi valentin 500 [...] needed for Nausea and Vomiting (N/V). ONETOUCH 2015-0 Yes Univers ULTRA TEST 2-21 [...] 2-21 ity of strip 00:00: [place] 00 [facility] amLODIPine 2014- Yes 10mg Take [address] (NORVASC) 2-11 by mouth. [facility] 10 MG 00:00: Medical tablet 00 [place] amLODIPine 2014-08 Yes 10mg Take [address] (NORVASC) 2-11 by mouth. [facility] 10 MG 00:00: Medical tablet 00 [place] cloNIDine 2014-08 Yes .3mg Q.[id number] Take 0.[address] HCl 1-11 [id number] mg by [facility] (CATAPRES) 00:00: 3D mouth 3 Medi valentin 0.3 MG 00 (three) Center tablet times daily . furosemide 2014-08 Yes 80mg Take [address] (LASIX) 40 1-11 by mouth . Jose es MG tablet 00:00: Medical 00 [place] hydrALAZINE 2014-08 Yes 50mg Q.[id number] Take [address] (APRESOLINE 1-11 [id number] by mouth 3 [facility]ukes ) 50 MG 00:00: 3D (three) Medical tablet 00 times Center daily. metoprolol 2014-08 Yes 100mg Q.5D Take [address] (LOPRESSOR) 1-11 mg by [facility]ukes 100 MG 00:00: mouth 2 Medical tablet 00 (two) Center times daily. cloNIDine 2014-08 Yes .3mg Q.[id number] Take 0.[address] HCl 1-11 [id number] mg by [facility]ukes (CATAPRES) 00:00: 3D mouth 3 Medi valentin 0.3 MG 00 (three) Center tablet times daily . furosemide 2014-08 Yes 80mg Take [address] (LASIX) 40 1-11 by mouth . Jose es MG tablet 00:00: Medical 00 [place] hydrALAZINE 2014-08 Yes 50mg Q.[id number] Take [address] (APRESOLINE 1-11 [id number] by mouth 3 [facility] ) 50 MG 00:00: 3D (three) Medical tablet 00 times Center daily. metoprolol 2014-08 Yes 100mg Q.5D Take [address] (LOPRESSOR) 1-11 mg by [facility]ukes 100 MG 00:00: mouth 2 Medical tablet 00 (two) Center times daily. Immunizations Ordered Filled Immunization Date Status Comments [facility] e Immunization Name Name SARS-COV-2 COVID-19 2020-11-15 Completed Unive rsity of PFIZER VACCINE 00:00:00 [facility] SARS-COV-2 COVID-19 2020-11-15 Completed Unive rsity of PFIZER VACCINE 00:00:00 [facility] SARS-COV-2 COVID-19 2020-10-25 Completed Unive rsity of PFIZER VACCINE 00:00:00 [facility] SARS-COV-2 COVID-19 2020-10-25 Completed Unive rsity of PFIZER VACCINE 00:00:00 [facility] SARS-COV-2 COVID-19 2020-10-25 Completed Unive rsity of PFIZER VACCINE 00:00:00 [facility] SARS-COV-2 COVID-19 2020-10-25 Completed Unive rsity of PFIZER VACCINE 00:00:00 [facility] SARS-COV-2 COVID-19 2020-10-25 Completed Unive rsity of PFIZER VACCINE 00:00:00 [facility] Vital Signs Vital Name Observation Time Observation Value Comments Source Systolic blood 2021-03-27 08:00:00 182 mm[Hg] Univer sity of pressure [facility] Diastolic blood 2021-03-27 08:00:00 101 mm[Hg] Unive rsity of pressure [facility] Heart rate 2021-03-27 08:00:00 72 /min [facility] Respiratory rate 2021-03-27 08:00:00 10 /min [facility] Oxygen saturation in 2021-03-27 08:00:00 100 /min [facility] Arterial blood by [facility] Pulse oximetry [place] Body temperature 2021-03-27 04:49:00 37.28 Chhaya [facility] [place] [facility] Body height 2021-03-27 04:49:00 157.5 cm [facility] Body weight 2021-03-27 04:49:00 83.462 kg [facility] BMI 2021-03-27 04:49:00 33.65 kg/m2 [facility] Systolic blood 2021-01-15 15:01:00 140 mm[Hg] Univer sity of pressure [facility] Diastolic blood 2021-01-15 15:01:00 84 mm[Hg] Unive rsity of pressure [facility] Heart rate 2021-01-15 15:01:00 76 /min [facility] Body temperature 2021-01-15 15:01:00 36.28 Chhaya [facility] ersity of [facility] Respiratory rate 2021-01-15 15:01:00 18 /min [facility] [place] [facility] Body height 2021-01-15 15:01:00 157.5 cm Universi ty of [place] [facility] Body weight 2021-01-15 15:01:00 90.719 kg Universi ty of [place] [facility] BMI 2021-01-15 15:01:00 36.58 kg/m2 Universi ty of [facility] Branch Oxygen saturation in 2021-01-15 15:01:00 99 /min University of Arterial blood by [facility] Pulse oximetry Branch Systolic blood 2020-11-12 19:02:00 155 mm[Hg] Univer sity of pressure [place] [facility] Diastolic blood 2020-11-12 19:02:00 95 mm[Hg] Unive rsity of pressure [facility] Heart rate 2020-11-12 19:01:00 79 /min Universi ty of [place] [facility] Respiratory rate 2020-11-12 19:01:00 19 /min Univ ersity of [facility] Body height 2020-11-12 19:01:00 167.6 cm Universi ty of [place] [facility] Body weight 2020-11-12 19:01:00 86.002 kg Universi ty of [place] [facility] BMI 2020-11-12 19:01:00 30.60 kg/m2 [facility]i ty [facility] [place] [facility] Systolic blood 2020-11-12 19:02:00 155 mm[Hg] Univer sity of pressure [place] [facility] Diastolic blood 2020-11-12 19:02:00 95 mm[Hg] Unive rsity of pressure [facility] Branch Heart rate 2020-11-12 19:01:00 79 /min Universi ty of [place] [facility] Respiratory rate 2020-11-12 19:01:00 19 /min Univ ersity of [place] [facility] Body height 2020-11-12 19:01:00 167.6 cm [facility]i ty [facility] [place] [facility] Body weight 2020-11-12 19:01:00 86.002 kg [facility]i ty [facility] [place] [facility] BMI 2020-11-12 19:01:00 30.60 kg/m2 [facility] [place] [facility] Procedures Procedure Date / Time Performed Performing Clinician [facility] e NOTICE OF PRIVACY 2021-03-27 04:39:35 Doctor Unassigned, No [facility] CONSENT/REFUSAL FOR 2021-03-27 04:37:48 Doctor Unassigned, No Un iversity of [place] DIAGNOSIS AND Name Medical Branch TREATMENT CONSENT/REFUSAL FOR 2021-01-15 14:58:04 Doctor [facility]assigned, No [facility] AND Name Medical Branch TREATMENT ASSIGNMENT OF BENEFITS 2020-11-12 18:39:16 Doctor Unassigned, No [facility] Name Medical Branch Plan of Care Planned Activity Planned Date Details Comments Source Future Scheduled 2021-04-[address] [facility] Test 00:00:00 (Season Ended) [code = Medic al Center INFLUENZA VACCINE (Season Ended)] Future Scheduled 2021-04-[address] [facility] Test 00:00:00 (Season Ended) [code = Medic al Center INFLUENZA VACCINE (Season Ended)] Future Scheduled 2020-08-[address] [facility] Test 00:00:00 (12+) [code = Medical Center DEPRESSION SCREENING (12+)] Future Scheduled 2020-08-[address] [facility] Test 00:00:00 (12+) [code = Medical Center DEPRESSION SCREENING (12+)] Future Scheduled 2020 SHINGLES VACCINES ([address] [facility] Test 00:00:00 of 2) [code = SHINGLES Medic al Center VACCINES (1 of 2)] Future Scheduled 2020 SHINGLES VACCINES ([address] [facility] Test 00:00:00 of 2) [code = SHINGLES Medic al Center VACCINES (1 of 2)] Future Scheduled 2019-01-[address] [facility] Test 00:00:00 measurement Medical Center (procedure) [code = 28058240] Future Scheduled 2019-01-[address] [facility] Test 00:00:00 measurement Medical Center (procedure) [code = 04661358] Future Scheduled 2018-08-[address] [facility] Test 00:00:00 WELLNESS (YEAR 2 or Medical Center FIRST YEAR if no IPPE) [code = MEDICARE ANNUAL WELLNESS (YEAR 2 or FIRST YEAR if no IPPE)] Future Scheduled 2018-08-[address] [facility] Test 00:00:00 WELLNESS (YEAR 2 or Medical Center FIRST YEAR if no IPPE) [code = MEDICARE ANNUAL WELLNESS (YEAR 2 or FIRST YEAR if no IPPE)] Future Scheduled [address] Test 00:00:00 (procedure) [code = [facility] [id number]] Future Scheduled [address] Test 00:00:00 (procedure) [code = [facility] [id number]] Future Scheduled 2014-06-[address] [facility] Test 00:00:00 0-64 YRS (2 of 3 - Medical C enter PCV13) [code = PNEUMOCOCCAL VACCINE 0-64 YRS (2 of 3 - PCV13)] Future Scheduled 2014-06-[address] [facility] Test 00:00:00 0-64 YRS (2 of 3 - Medical C enter PCV13) [code = PNEUMOCOCCAL VACCINE 0-64 YRS (2 of 3 - PCV13)] Future Scheduled [address] [facility] Test 00:00:00 [facility] cerv[facility] (procedure) [code = 214523156] Future Scheduled [address] [facility] Test 00:00:00 [facility] cervix (procedure) [code = 912051354] Future Scheduled 1989 DTAP/TDAP/TD VACCINES [facility] 00:[facility]:00 (1 - Tdap) [code = Medical C enter DTAP/TDAP/TD VACCINES (1 - Tdap)] Future Scheduled 1989 DTAP/TDAP/TD VACCINES [facility] 00:00:00 (1 - Tdap) [code = Medical C enter DTAP/TDAP/TD VACCINES (1 - Tdap)] Future Scheduled 1988 HEPATITIS C [facility]CRE[facility]ING [facility] 00:[facility]00 [code = HEPATITIS C [facility] SCREENING] Future Scheduled 1988 HEPATITIS C [facility]:00 [code = HEPATITIS C [facility] Center SCREENING] Future Scheduled 1982 COVID-19 VACCINE (1) [facility] 00:00:00 [code = COVID-[address] VACCINE (1)] Future Scheduled 1982 COVID-19 VACCINE (1) [facility] 00:00:00 [code = COVID-[address] VACCINE (1)] Future Scheduled 1980 DIABETIC EYE EXAM [facility] 00:00:00 [code = DIABETIC EYE [facility] EXAM] Future Scheduled [address] [facility] (regime/therapy) [code = 410010114] Future Scheduled 1980 Urine screening for [facility] 00:00:00 protein (procedure) [facility] Center [code = 307971521] Future Scheduled [address]AB[address]IC EYE EXAM [facility] 00:00:00 [code = DIABETIC EYE [facility] EXAM] Future Scheduled [address] [facility] examination [facility] Center (regime/therapy) [code = 546872440] Future Scheduled 1980 Urine screening for [facility] 00:00:00 protein (procedure) [facility] Center [code = 873707994] Future Scheduled [address] [facility]00 [facility] breast (procedure) [code = 642025374] Future Scheduled [address] [facility]00 [facility] colon (procedure) [code = 510633120] Future Scheduled [address] [facility]00 [facility] breast (procedure) [code = 256475802] Future Scheduled [address] [facility] colon (procedure) [code = 684397793] Future Scheduled DIABETES: RETINAL EYE [facility] EXAM [code = DIABETES: RETINAL EYE EXAM] Future Scheduled DIABETIC FOOT EXAM [facility] Test [code = DIABETIC FOOT EXAM] Future Scheduled COVID-19 VACCINE (1) [facility] [code = COVID-19 VACCINE (1)] Future Scheduled Hepatitis C screening [facility] Test (procedure) [code = 667568680] Future Scheduled Screening for [facility] Test malignant neoplasm of cervix (procedure) [code = 414166336] Future Scheduled BREAST CANCER [facility] Test SCREENING [code = BREAST CANCER [...] Type Clinicians Facility Department ID 2021-06-[address] [facility] [id number] [facility] 11:53:58 [facility] 2021-06-[address] [facility] [id number] Univers 20:14:34 [facility] of [facility] 2021-03-26 2021-03-27 Emergency [facility] [id number] Univers 23:56:00 03:30:00 Naga Gonzalez [id number] [place] [phone] [address] 2021-01-15 2021-01-15 Emergency [facility] [id number] Univers 10:03:00 11:43:00 Jeanna Gonzalez [id number] [place] [phone] [address] 2020-12-11 2020-12-[address] [facility] [id number] Univers 10:00:00 10:00:00 TONY [facility] 2020-12-11 2020-12-[address] [facility] [id number] Univers 10:00:00 10:00:00 [facility] [id number] [facility] 2020-[facility]-[address] [facility] [id number] Univers 13:05:00 [facility]:05[facility] 2020-11-12 2020-11-12 [facility] [id number] Univers 13:40:03 14:10:03 Visit Ligia Gonzalez [id number] [place] [phone] [address] 2020-11-12 2020-11-12 Office [facility] [id number] 13:40:03 14:10:03 Visit [facility] Jonnathan Gonzalez [id number] [place] 4.2.7.2.686 Professio [phone] nal 085 Building 2020-11-12 2020-11-12 Outpatient R LIGIA [facility] [id number] Univers 14:00:00 14:00:00 ATALIGIA SANTAMARIA ity of [facility] 2020-11-12 2020-11-12 Orders Doctor GRACY [id number] Univers 00:00:00 00:00:00 Only Unassigned, KATIE 350.1.13.10 ity of [place] [facility] 4.2.7.2.686 Juan C as [phone] [address] 2020-10-25 2020-10-[address] [facility] [id number] Univers 12:45:00 12:45:00 [facility] Results Test Description Test Time Test Comments Results Result Comments Source BLOOD CULTURE 2018-08-02 17:01:00 Test Item Value Reference Range Interpretation Comme nts CULTURE (BEAKER) (test code = 1095) No growth in 5 days LUPUS ANTICOAGULANT SCREEN WITH REFLEX TO [id number] 16:08:00 Test Item Value Reference Range Interpretation Comments DRVV SCREEN RATIO 1.55 <1.20 H (BEAKER) (test code = 2707) DRVV CONFIRM RATIO 0.93 (test code = 2709) DRVV NORMALIZED RATIO 1.67 <1.20 H (test code = 2710) DRVV INTERPRETATION Positive screen for (BEAKER) (test code = Lupus Anticoagulant 1566) with hexagonal phospholipid confirmation. Suggest repeat testing in 12 weeks and when patient not receiving anticoagulant therapy. PROTIME (BEAKER) (test 15.0 seconds 11.7-14.7 H code = 759) INR (BEAKER) (test code 1.2 <=5.9 = 370) PARTIAL THROMBOPLASTIN 36.1 seconds 22.5-36.0 H TIME (BEAKER) (test code = 760) PTT-LA (BEAKER) (test 45.2 32.0-41.8 H code = [id number]) [id number] Cindy Chavira MD (BEAKER) (test code = (electronic signature) 8047) HEXAGONAL [id number] 14:08:00 Test Item Value Reference Range Interpretation Comments HEXAGONAL PHOSPHOLIPID (BEAKER) Positive (test code = 1790) BLOOD [id number] 10:01:00 Test Item Value Reference Range Interpretation Comments CULTURE (BEAKER) (test No growth in 5 days code = 1095) DOUBLE-STRANDED DNA (DSDNA) [id number] 05:52:00 Test Item Value Reference Range Interpretation Comments ANTI-DNA DS (BEAKER) (test code = Negative 1055) CARDIOLIPIN ANTIBODIES, IGG AND [id number] 15:01:00 Test Item Value Reference Range Interpretation Comments ANTICARDIOLIPIN IGG ANTIBODY (BEAKER) < GPL <20.0 (test code = 712) ANTICARDIOLIPIN IGM ANTIBODY (BEAKER) 2.1 MPL <20.0 (test code = 713) Anticardiolipin IgG Result Interpretation: <20.0 GPL Normal>/= 20.0 GPL PositiveAnticardiolipin IgM Result Interpretation: <20.0 MPL Normal>/= 20.0 MPL PositiveCALCIUM, [id number] 05:12:00 Test Item Value Reference Range Interpretation Comments CALCIUM IONIZED (BEAKER) (test 1.01 mmol/L 1.12-1.27 L code = 698) PH, BLOOD (BEAKER) (test code = 7.45 1810) POCT-GLUCOSE [id number] 21:30:00 Test Item Value Reference Range Interpretation Comments POC-GLUCOSE METER 116 mg/dL 70-110 H TESTED AT [place] [address] ([facility]) (test code = [place] 1538) [address] POCT-GLUCOSE [id number] 17:32:00 Test Item Value Reference Range Interpretation Comments POC-GLUCOSE METER 125 mg/dL 70-110 H TESTED AT [place] [address] ([facility]) (test code = [place] 1538) [address] POCT-GLUCOSE [id number] 11:28:00 Test Item Value Reference Range Interpretation Comments POC-GLUCOSE METER 115 mg/dL 70-110 H TESTED AT [place] [address] ([facility]) (test code = [place] 1538) [address] POCT-GLUCOSE [id number] 07:41:00 Test Item Value Reference Range Interpretation Comments POC-GLUCOSE METER 108 mg/dL 70-[address] [facility] 6720 (BEAKER) (test code = JOB Osei [facility] 1538) [address] [id number] 07:06:00 Test Item Value Reference Range Interpretation Comments MAGNESIUM (BEAKER) 1.8 mg/dL 1.6-2.6 Specimen slightly (test code = 627) hemolyzed [id number] 07:06:00 Test Item Value Reference Range Interpretation Comments PHOSPHORUS (BEAKER) 2.4 mg/dL 2.3-4.7 Specimen slightly (test code = 604) hemolyzed COMPREHENSIVE METABOLIC [id number] 07:06:00 Test Item Value Reference Range Interpretation [...] APPLICABLE FOR DIALYSIS PATIEN TS. HEPATIC FUNCTION [id number] 07:06:00 Test Item Value Reference Range Interpretation [...] slightly (test code = 347) hemolyzed CALCIUM, [id number] 06:42:00 Test Item Value Reference Range Interpretation Comments CALCIUM IONIZED (BEAKER) (test 1.16 mmol/L 1.12-1.27 code = 698) PH, BLOOD (BEAKER) (test code = 7.42 1810) CBC W/PLT COUNT & AUTO [id number] 05:10:00 Test Item Value Reference Range Interpretation [...] PERCENT (BEAKER) (test code = 2801) POCT-GLUCOSE [id number] 23:12:00 Test Item Value Reference Range Interpretation Comments POC-GLUCOSE METER 95 mg/dL 70-[address] [facility]20 [facility] (test code = [place] [address] 1538) POCT-GLUCOSE [id number] 18:51:00 Test Item Value Reference Range Interpretation Comments POC-GLUCOSE METER 118 mg/dL 70-110 H TESTED AT [place] [address] ([facility]) (test code = JOB Osei [facility] 1538) [address] HEMOGLOBIN AND [id number] 16:28:00 Test Item Value Reference Range Interpretation Comments HEMOGLOBIN ([facility]) (test code = 8.7 GM/DL 11.2-15.7 L 410) HEMATOCRIT ([facility]) (test code = 27.8 % 34.1-44.9 L 411) POCT-GLUCOSE [id number] 15:00:00 Test Item Value Reference Range Interpretation Comments POC-GLUCOSE METER 140 mg/dL 70-110 H TESTED AT [place] [address] ([facility]) (test code = JOB Osei [facility] 1538) [address] POCT-GLUCOSE [id number] 14:46:00 Test Item Value Reference Range Interpretation Comments POC-GLUCOSE METER 44 mg/dL 70-110 L Notified Sea Amos MD/TESTED AT ([facility]) (test code = [address] 1538) [facility] [address] 0 POCT-GLUCOSE [id number] 13:05:00 Test Item Value Reference Range Interpretation Comments POC-GLUCOSE METER 87 mg/dL 70-110 TESTED AT [place] [address] ([facility]) (test code = JOB Osei [facility] [address] 1538) POCT-GLUCOSE [id number] 11:57:00 Test Item Value Reference Range Interpretation Comments POC-GLUCOSE METER 65 mg/dL 70-110 L Notified Sea Amos MD/TESTED AT ([facility]) (test code = [address] 1538) [facility] [address] 0 VANCOMYCIN LEVEL, [id number] 10:58:00 Test Item Value Reference Range Interpretation Comments VANCOMYCIN TROUGH ([facility]) (test 14.2 ug/mL 10.0-20.0 code = 522) RAD, ABDOMEN/KUB, 1 VIEW [id number] 09:41:00Reason for exam:->abdominal painFINAL REPORT AP abdomen, two images HISTORY: Abdominal pain COMPARISON: 07/28/2013 IMPRESSION:Grossly nonobstructive bowel gas pattern. Intact skeleton. Signed: Vikas Guillen MDReport Verified Date/Time: 07/30/2018 09:41:59 Reading Location: [facility] B1 [id number] Ortho Consult ReadingRoom POCT-GLUCOSE [id number] 07:59:00 Test Item Value Reference Range Interpretation Comments POC-GLUCOSE METER 87 mg/dL 70-[address] [facility] 6720 (BEAKER) (test code = [place] [address] 1538) CALCIUM, [id number] 06:53:00 Test Item Value Reference Range Interpretation Comments CALCIUM IONIZED (BEAKER) (test 1.12 mmol/L 1.12-1.27 code = 698) PH, BLOOD (BEAKER) (test code = 7.44 1810) [id number] 06:38:00 Test Item Value Reference Range Interpretation Comments PHOSPHORUS (BEAKER) (test code = 2.7 mg/dL 2.3-4.7 604) [id number] 06:38:00 Test Item Value Reference Range Interpretation Comments MAGNESIUM (BEAKER) (test code = 1.6 mg/dL 1.6-2.6 627) HEPATIC FUNCTION [id number] 06:38:00 Test Item Value Reference Range Interpretation [...] = 9 U/L 6-55 347) COMPREHENSIVE METABOLIC [id number] 06:38:00 Test Item Value Reference Range Interpretation [...] PATIEN TS. CBC W/PLT COUNT & AUTO [id number] 06:11:00 Test Item Value Reference Range Interpretation [...] PERCENT (BEAKER) (test code = 2801) POCT-GLUCOSE [id number] 21:38:00 Test Item Value Reference Range Interpretation Comments POC-GLUCOSE METER 96 mg/dL 70-110 TEST[facility] AT [place] [address] [facility] (test code = [place] [address] 1538) POCT-GLUCOSE [id number] 18:19:00 Test Item Value Reference Range Interpretation Comments POC-GLUCOSE METER 121 mg/dL 70-[address] [facility] 6720 (BEAKER) (test code = [place] 1538) [address] T4, [id number] 12:35:00 Test Item Value Reference Range Interpretation Comments FREE T4 (BEAKER) (test code = 655) 1.25 ng/dL 0.70-1.48 POCT-GLUCOSE [id number] 12:27:00 Test Item Value Reference Range Interpretation Comments POC-GLUCOSE METER 127 mg/dL 70-[address] [facility] 6720 (BEAKER) (test code = [place] 1538) [address] TSH/FREE T4 IF [id number] 12:07:00 Test Item Value Reference Range Interpretation Comments THYROID STIMULATING HORMONE 0.25 uIU/mL 0.35-4.94 L (BEAKER) (test code = 772) [id number] 12:07:00 Test Item Value Reference Range Interpretation Comments THYROID STIMULATING HORMONE 0.25 uIU/mL 0.35-4.94 L (BEAKER) (test code = 772) LACTIC ACID, VENOUS, WHOLE [id number] 11:35:00 Test Item Value Reference Range Interpretation Comments LACTATE BLOOD VENOUS 0.6 mmol/L 0.5-2.2 Specime n slightly (2) (BEAKER) (test hemolyzed code = 2872) VANCOMYCIN LEVEL, [id number] 07:11:00 Test Item Value Reference Range Interpretation Comments VANCOMYCIN RANDOM (BEAKER) (test 17.9 ug/mL code = 523) Reference Range: No [id number] 07:09:00 Test Item Value Reference Range Interpretation Comments PHOSPHORUS (BEAKER) (test code = 3.9 mg/dL 2.3-4.7 604) [id number] 07:09:00 Test Item Value Reference Range Interpretation Comments MAGNESIUM (BEAKER) (test code = 1.7 mg/dL 1.6-2.6 627) BASIC METABOLIC [id number] 07:09:00 Test Item Value Reference Range Interpretation [...] APPLICABLE FOR DIALYSIS PATIEN TS. HEPATIC FUNCTION [id number] 07:09:00 Test Item Value Reference Range Interpretation [...] code = 10 U/L 6-55 347) TROPONIN [id number] 06:54:00 Test Item Value Reference Range Interpretation Comments TROPONIN I (BEAKER) (test code = 0.08 ng/mL 0.00-0.03 H 397) LACTIC ACID, VENOUS, WHOLE [id number] 06:45:00 Test Item Value Reference Range Interpretation Comments LACTATE BLOOD VENOUS 0.8 mmol/L 0.5-2.2 Specime n slightly (2) (BEAKER) (test hemolyzed code = 1256) CBC W/PLT COUNT & AUTO [id number] 06:00:00 Test Item Value Reference Range Interpretation [...] PERCENT (BEAKER) (test code = 2801) CALCIUM, [id number] 05:58:00 Test Item Value Reference Range Interpretation Comments CALCIUM IONIZED (BEAKER) (test 1.12 mmol/L 1.12-1.27 code = 698) PH, BLOOD (BEAKER) (test code = 7.39 1810) EOSINOPHIL SMEAR, [id number] 20:17:00 Test Item Value Reference Range Interpretation Comments EOSINOPHIL SMEAR, URINE (BEAKER) No EOS seen No EOS seen (test code = 1851) BASIC METABOLIC [id number] 20:01:00 Test Item Value Reference Range Interpretation [...] DIALYSIS PATIEN TS. LACTIC ACID, VENOUS, WHOLE [id number] 19:59:00 Test Item Value Reference Range Interpretation Comments LACTATE BLOOD VENOUS 0.8 mmol/L 0.5-2.2 Specime n slightly (2) (BEAKER) (test hemolyzed code = 2872) CT, BRAIN/STROKE [id number] 19:59:00Stroke Protocol. Phone/Page MD for reporting.Reason for [...] Fink Verified Date/Time: 07/28/2018 19:59:01 Reading Location: [facility] Radiology Reading Room [id number] 19:51:00 Test Item Value Reference Range Interpretation Comments PARTIAL THROMBOPLASTIN TIME 33.1 seconds 22.5-36.0 (BEAKER) (test code = 760) PROTHROMBIN [id number] 19:50:00 Test Item Value Reference Range Interpretation Comments PROTIME (BEAKER) (test code = 15.6 seconds 11.7-14.7 H 759) INR (BEAKER) (test code = 370) 1.2 <=5.9 RECOMMENDED COUMADIN/WARFARIN INR THERAPY RANGESSTANDARD DOSE: 2.0 - 3.0 Includes: PROPHYLAXIS forvenous thrombosis, systemic embolization; TREATMENT for venous thrombosis and/or pulmonary embolus.HIGH RISK: Target INR is 2.5-3.5 for patients with mechanical heart valves.HEMOGLOBIN AND [id number] 19:41:00 Test Item Value Reference Range Interpretation Comments HEMOGLOBIN (BEAKER) (test code = 11.3 GM/DL 11.2-15.7 410) HEMATOCRIT (BEAKER) (test code = 35.4 % 34.1-44.9 411) CBC W/PLT COUNT & AUTO [id number] 19:41:00 Test Item Value Reference Range Interpretation [...] PERCENT (BEAKER) (test code = 2801) TROPONIN [id number] 19:26:00 Test Item Value Reference Range Interpretation Comments TROPONIN I (BEAKER) (test code = 0.11 ng/mL 0.00-0.03 H 397) PROTEIN, RANDOM [id number] 19:19:00 Test Item Value Reference Range Interpretation Comments PROTEIN, URINE (BEAKER) (test code 325 mg/dL 0-14 H = 1569) POCT-GLUCOSE [id number] 19:00:00 Test Item Value Reference Range Interpretation Comments POC-GLUCOSE METER 158 mg/dL 70-[address] [facility] 6720 (BEAKER) (test code = [place] 1538) [address] CREATININE, RANDOM [id number] 18:52:00 Test Item Value Reference Range Interpretation Comments CREATININE URINE (BEAKER) (test 95.8 mg/dL code = 375) Reference Range: No NormalsSODIUM, RANDOM [id number] 18:52:00 Test Item Value Reference Range Interpretation Comments SODIUM URINE (BEAKER) (test code = 28 meq/L 243) Reference Range: No NormalsURINALYSIS W/ [id number] 18:02:00 Test Item Value Reference Range Interpretation [...] SOURCE(BEAKER) (test code Urine, Clean Catch = 3057) POCT-GLUCOSE [id number] 17:21:00 Test Item Value Reference Range Interpretation Comments POC-GLUCOSE METER 137 mg/dL 70-[address] [facility] 6720 (BEAKER) (test code = [place] 1538) [address] BASIC METABOLIC [id number] 17:14:00 Test Item Value Reference Range Interpretation [...] APPLICABLE FOR DIALYSIS PATIEN TS. Call results [id number] ACID, VENOUS, WHOLE [id number] 14:19:00 Test Item Value Reference Range Interpretation Comments LACTATE BLOOD VENOUS (2) (BEAKER) 1.1 mmol/L 0.5-2.2 (test code = 2872) THROMBIN [id number] 13:02:00 Test Item Value Reference Range Interpretation Comments THROMBIN TIME (BEAKER) (test code = 17.8 secs 13.8-20.0 550) [id number] 13:01:00 Test Item Value Reference Range Interpretation Comments PROCALCITONIN (BEAKER) (test code 0.09 ng/mL <0.05 H = 3036) SEPSIS RISK (ng/mL)Low: 0.05-0.50Intermediate: 0.51-2.00High: >=2.011:1 MIXING STUDY, [id number] 12:38:00 Test Item Value Reference Range Interpretation Comments PROTIME (BEAKER) (test code = 15.0 seconds 11.7-14.7 H 759) PARTIAL THROMBOPLASTIN TIME 36.1 seconds 22.5-36.0 H (BEAKER) (test code = 760) PT 1/1 MIX (BEAKER) (test code = 14.4 SECS 11.7-14.7 1595) PTT 1/1 MIX (BEAKER) (test code 35.5 SECS 22.5-36.0 = 1596) TROPONIN [id number] 12:01:00 Test Item Value Reference Range Interpretation Comments TROPONIN I (BEAKER) (test code = 0.13 ng/mL 0.00-0.03 H 397) HCG, QUANTITATIVE, [id number] 11:58:00 Test Item Value Reference Range Interpretation Comments GONADOTROPIN, CHORIONIC (HCG) QUANT < mIU/mL 0-10 (BEAKER) (test code = 649) Non- Females: <10 mIU/mL Females: Gestation Age Reference Range(mIU/mL) 0.2-1 Week 5-50 1-2 Weeks 50-500 2-3 Weeks 100-5,000 3-4Weeks 500-10,000 4-5 Weeks 1,000-50,000 5-6 Weeks 10,000-100,000 6-8 Weeks 15,000-200,000 2-3 Months 10,000-100,[id number] 11:55:00 Test Item Value Reference Range Interpretation Comments LIPASE (BEAKER) (test code = 749) 31 U/L 8-78 [id number] 11:55:00 Test Item Value Reference Range Interpretation Comments AMYLASE (BEAKER) (test code = 349) 101 U/L 25-125 COMPREHENSIVE METABOLIC [id number] 11:55:00 Test Item Value Reference Range Interpretation [...] NOT APPLICABLE FOR DIALYSIS PATIEN TS. C-REACTIVE [id number] 11:55:00 Test Item Value Reference Range Interpretation Comments C-REACTIVE PROTEIN (BEAKER) (test 0.42 mg/dL 0.00-0.50 code = 676) LACTIC ACID, VENOUS, WHOLE [id number] 11:51:00 Test Item Value Reference Range Interpretation Comments LACTATE BLOOD VENOUS 1.5 mmol/L 0.5-2.2 Specime n slightly (2) (BEAKER) (test hemolyzed code = 2643) [id number] 11:44:00 Test Item Value Reference Range Interpretation Comments PARTIAL THROMBOPLASTIN TIME 35.4 seconds 22.5-36.0 (BEAKER) (test code = 176) CBC W/PLT COUNT & AUTO [id number] 11:30:00 Test Item Value Reference Range Interpretation [...] 417) IMMATURE GRANULOCYTES-RELATIVE 0 % 0-1 PERCENT (AMINAH) (test code = 2801) POCT-GLUCOSE [id number] 11:20:00 Test Item Value Reference Range Interpretation Comments POC-GLUCOSE METER 167 mg/dL 70-[address] [facility] 6720 (AMINAH) (test code = [place] 1538) [address] HEMOGLOBIN [id number] 11:15:00 Test Item Value Reference Range Interpretation Comments HEMOGLOBIN A1C (AMINAH) (test code = 5.6 % 4.3-6.1 368) PROTHROMBIN [id number] 08:24:00 Test Item Value Reference Range Interpretation Comments PROTIME (AMINAH) (test code = 15.3 seconds 11.7-14.7 H 759) INR (AMINAH) (test code = 370) 1.2 <=5.9 RECOMMENDED COUMADIN/WARFARIN INR THERAPY RANGESSTANDARD DOSE: 2.0 - 3.0 Includes: PROPHYLAXIS forvenous thrombosis, systemic embolization; TREATMENT for venous thrombosis and/or pulmonary embolus.HIGH RISK: Target INR is 2.5-3.5 for patients with mechanical heart valves.RAD, ABDOMEN/KUB, 1 VIEW [id number] 08:13:00Reason for exam:->abdominal painFINAL REPORT INDICATION:Abdominal pain. [...] MDReport Verified Date/Time: 07/28 08:13:33 Reading Location: [address] Ortho Consult Reading Room ONIN [id number] 08:11:00 Test Item Value Reference Range Interpretation Comments TROPONIN I (AMINAH) (test code = 0.05 ng/mL 0.00-0.03 H 397) RAD, CHEST, 1 VIEW, NON [id number] 08:10:00Reason for exam:->chest painShould this be performed at the bedside?->YesFINAL REPORT RAD, CHEST, 1 VIEW, NON DEPT INDICATION: chest pain COMPARISON: Prior day's exam FINDINGS: Portable frontal view of the chest. IMPRESSION: Support Lines: None. Lungs and pleura: Clear lungs. No effusion. No pneumothorax.Heart and mediastinum: Unremarkable contours.Additional findings: None. Signed: JR Maya Robert MDReport Verified Date/Time: 07/28/2018 08:10:51 Reading Location: [facility] Radiology Reading Room BASIC METABOLIC [id number] 08:08:00 Test Item Value Reference Range Interpretation [...] S NOT APPLICABLE FOR DIALYSIS PATIEN TS. [id number] 08:04:00 Test Item Value Reference Range Interpretation Comments LIPASE (BEAKER) (test code = 749) 12 U/L 8-78 HEPATIC FUNCTION [id number] 08:04:00 Test Item Value Reference Range Interpretation [...] (test code = 347) hemolyzed COMPLEMENT COMPONENT [id number] 08:03:00 Test Item Value Reference Range Interpretation Comments C4 COMPLEMENT (BEAKER) (test code = 25 mg/dL 15-57 394) COMPLEMENT COMPONENT [id number] 08:03:00 Test Item Value Reference Range Interpretation Comments C3 COMPLEMENT (BEAKER) (test code = 125 mg/dL 82-193 393) POCT-BLOOD GASES, [id number] 07:57:00 Test Item Value Reference Range Interpretation Comments TEMP, CELSIUS-POC 37.0 (BEAKER) (test code = 1834) FIO2-POC (BEAKER) TESTED AT [facility] 6720 (test code = 1835) [facility] [place] [address] PH, ARTERIAL-POC 7.416 7.350-7.450 (BEAKER) (test code [...] L ARTERIAL-POC (BEAKER) (test code = 1841) [id number] 07:57:00 Test Item Value Reference Range Interpretation Comments POC-SODIUM (BEAKER) 146 meq/L 135-148 TESTED A T [place] [address] (test code = 1542) [place] [address] [id number] 07:57:00 Test Item Value Reference Range Interpretation Comments POC-POTASSIUM 2.7 meq/L 3.6-5.5 L TESTED AT [place] [address] ([facility]) (test code [facility] [facility]ENTER [address] = 1540) [id number] 07:57:00 Test Item Value Reference Range Interpretation Comments POC-GLUCOSE ([facility]) 176 mg/dL 70-110 H TESTED AT [place] [address] (test code = 1855) [place] [address] POCT-CALCIUM [id number] 07:57:00 Test Item Value Reference Range Interpretation Comments POC-CALCIUM IONIZED 1.15 mmol/L 1.12-1.27 TESTED [place] T [place] [address] ([facility] (test code = [facility] 1536) [id number] 07:57:00 Test Item Value Reference Range Interpretation Comments POC-HEMATOCRIT 38 % 36-45 TESTED AT [place] [address] ([facility]) (test code = [facility] Sea [facility] [id number]) [id number] 07:57:00 Test Item Value Reference Range Interpretation Comments POC-HEMOGLOBIN 12.9 g/dL 12.0-15.0 TESTED AT [place] [address] ([facility]) (test code [facility] [place] = 1856) [id number] AT [place] [address] [place] [address] POCT-LACTIC ACID, [id number] 07:57:00 Test Item Value Reference Range Interpretation Comments POC-LACTIC ACID, 3.3 mmol/L 0.9-1.7 H TESTED AT [place] [address] [place] ([facility]) (test [facility] Sea [facility] code = 2805) [address] CBC W/PLT COUNT & AUTO [id number] 07:47:00 Test Item Value Reference Range Interpretation [...]
[2022-01-26] MEDS ORDERED: HYDROMORPHONE HCL 1 MG/ML INJ ONE ×4 (02:03→16:34)
[2022-01-26] MEDS ORDERED: PROMETHAZINE INJ 25 MG/ML AMP ONE (02:03)
[2022-01-26] MEDS ORDERED: NA CHLORIDE 0.9% 500 ML ONE ×2 (02:03→08:08)
[2022-01-26 02:04] LABS: Absolute Lymphocytes (CBC) 1.3 K/uL (0.7-4.9); Hematocrit 38.2 % (36.0-45.0); Lymphocytes % 17.5 % (15.3-44.8); MPV 6.8 fL (7.6-11.3)
[2022-01-26 02:07] LABS: Protime INR 1.04
[2022-01-26 02:28] LABS: Albumin 3.7 g/dL (3.4-5.0); Bilirubin Direct 0.1 mg/dL (0-0.2); Bilirubin Total 0.2 mg/dL (0.2-1.0); Magnesium 2.1 mg/dL (1.8-2.4); Potassium 3.6 mmol/L (3.5-5.1); Protein, Total 8.2 g/dL (6.4-8.2); Troponin High Sensitivity 40.6 pg/mL (<58.9)
[2022-01-26] MEDS ORDERED: cloNIDine HCL 0.1 MG TAB ONE (04:06)
[2022-01-26] MEDS ORDERED: LORazepam 2 MG/ML VIAL ONE (08:08)
[2022-01-26] MEDS ORDERED: METOPROLOL TAR 50 MG TAB ONE (08:08)
--- NOTE | 2022-01-26 08:41 | EDPHYS ---
Physician Documentation [facility] Name: Babs Younger Age: 51 yrs Sex: Female : 1970 Arrival Date: 01/25/2022 Time: 23:30 Bed 14 Private MD: ED Physician Brent Brothers HPI: 01/26 00:30 This 51 yrs old Black Female presents to ER via Ambulatory with complaints of Pain All mh7 Over, Irregular Pulse. 07:14 body aches. Onset: The symptoms/episode began/occurred 7 day(s) ago. Severity of mh7 symptoms: At their worst the symptoms were moderate 4 day(s) ago, in the emergency department the symptoms are unchanged. States that she was exposed to COVID at a baby shower about 10 days ago. States that she has had runny nose, congestion and pain all over her body.. 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 N/A - Hysterectomy jb4 Historical: - Allergies: 00:05 Morphine; jb4 00:05 SHELLFISH; jb4 - Home Meds: 00:05 amlodipine 10 mg tab 1 tab once daily [Active]; CellCept 500 mg Oral tab 2 tabs 2 times jb4 per day [Active]; clonidine HCl 0.3 mg Oral tab 1 tab three times a day [Active]; gabapentin 400 mg Oral cap 1 cap as needed [Active]; hydralazine 50 mg Oral tab 1 tab three times a day [Active]; doxazosin 4 mg Oral tab 1 tab once daily [Active]; metoprolol tartrate 100 mg Oral tab 1 tab 2 times per day [Active]; - PMHx: 00:05 Diabetes - IDDM; bowel obstruction; ESRD; Hypertension; Lupus; Renal Disease; Seizures; jb4 - PSHx: 00:05 Colostomy reversal; jb4 - Immunization history:: Adult Immunizations up to date. - Social history:: Smoking status: Patient denies any tobacco usage or history of. ROS: 00:30 Constitutional: Negative for fever, chills, and weight loss, Eyes: Negative for injury, mh7 pain, redness, and discharge, Neck: Negative for injury, pain, and swelling, Cardiovascular: Negative for chest pain, palpitations, and edema, Respiratory: Negative for shortness of breath, cough, wheezing, and pleuritic chest pain, Abdomen/GI: Negative for abdominal pain, nausea, vomiting, diarrhea, and constipation, Back: Negative for injury and pain, : Negative for injury, bleeding, discharge, and swelling, MS/Extremity: Negative for injury and deformity, Skin: Negative for injury, rash, and discoloration, Neuro: Negative for headache, weakness, numbness, tingling, and seizure, Psych: Negative for depression, anxiety, suicide ideation, homicidal ideation, and hallucinations, Allergy/Immunology: Negative for hives, rash, and allergies, Endocrine: Negative for neck swelling, polydipsia, polyuria, polyphagia, and marked weight changes, Hematologic/Lymphatic: Negative for swollen nodes, abnormal bleeding, and unusual bruising. Exam: 00:30 Head/Face: Normocephalic, atraumatic. Eyes: Pupils equal round and reactive to light, mh7 extra-ocular motions intact. Lids and lashes normal. Conjunctiva and sclera are non-icteric and not injected. Cornea within normal limits. Periorbital areas with no swelling, redness, or edema. Neck: Trachea midline, no thyromegaly or masses palpated, and no cervical lymphadenopathy. Supple, full range of motion without nuchal rigidity, or vertebral point tenderness. No Meningismus. Chest/axilla: Normal chest wall appearance and motion. Nontender with no deformity. No lesions are appreciated. 00:30 Respiratory: Lungs have equal breath sounds bilaterally, clear to auscultation and percussion. No rales, rhonchi or wheezes noted. No increased work of breathing, no retractions or nasal flaring. Abdomen/GI: Soft, non-tender, with normal bowel sounds. No distension or tympany. No guarding or rebound. No evidence of tenderness throughout. Back: No spinal tenderness. No costovertebral tenderness. Full range of motion. Skin: Warm, dry with normal turgor. Normal color with no rashes, no lesions, and no evidence of cellulitis. MS/ Extremity: Pulses equal, no cyanosis. Neurovascular intact. Full, normal range of motion. Neuro: Awake and alert, GCS 15, oriented to person, place, time, and situation. Cranial nerves II-XII grossly intact. Motor strength 5/5 in all extremities. Sensory grossly intact. Cerebellar exam normal. Normal gait. Psych: Awake, alert, with orientation to person, place and time. Behavior, mood, and affect are within normal limits. 00:30 Constitutional: The patient appears in no acute distress, alert, awake, anxious, uncomfortable. 00:30 Cardiovascular: Rate: tachycardic, Rhythm: regular, Pulses: no pulse deficits are appreciated, Heart sounds: normal, normal S1and S2, Edema: is not appreciated, JVD: is not appreciated. Vital Signs: 00:01 BP 219 / 136; Pulse 136; Resp 24; Temp 97.5(TE); Pulse Ox 100% on R/A; Weight 79.83 kg jb4 (R); Height 5 ft. 2 in. (157.48 cm) (R); Pain 10/10; 00:20 BP 209 / 129; Pulse 119; Resp 20; Temp 97.5; Pulse Ox 100% on R/A; darian 01:20 BP 186 / 108; Pulse 116; Resp 20; Pulse Ox 99% on R/A; darian 02:15 BP 190 / 122; Pulse 110; Resp 18; Pulse Ox 100% on R/A; darian 03:15 BP 196 / 118; Pulse 120; Resp 20; Pulse Ox 100% on R/A; Pain 10/10; darian 04:05 BP 175 / 94; Pulse 103; Resp 18; Pulse Ox 100% on R/A; darian 04:38 BP 193 / 100; Pulse 102; Resp 16; Pulse Ox 99% on R/A; darian 05:18 BP 186 / 97; Pulse 101; Resp 16; Pulse Ox 99% on R/A; darian 06:40 BP 183 / 101; Pulse 107; Resp 16; Temp 97.5; Pulse Ox 99% on R/A; Pain 0/10; darian 00:01 Body Mass Index 32.19 (79.83 kg, 157.48 cm) jb4 MDM: 08:38 Differential Diagnosis sepsis, flu, COVID. Data reviewed: vital signs, nurses notes, [facility] lab test result(s), cardiac enzymes, CBC, electrolytes. Data interpreted: Pulse oximetry: on room air is 99 %. Interpretation: normal. Counseling: I had a detailed discussion with the patient and/or guardian regarding: the historical points, exam findings, and any diagnostic results supporting the discharge/admit diagnosis, lab results, radiology results, the need for further work-up and treatment in the hospital. Response to treatment: the patient's symptoms have mildly improved after treatment. 08:40 Patient medically screened. 01/26 00:42 Order name: Basic Metabolic Panel; Complete Time: 03:42 01/26 00:42 Order name: CBC with Diff; Complete Time: 02:14 01/26 00:42 Order name: LFT's; Complete Time: 03:42 [facility] 01/26 00:42 Order name: Magnesium; Complete Time: 03:42 01/26 00:42 Order name: NT PRO-BNP; Complete Time: 03:42 01/26 00:42 Order name: PT-INR; Complete Time: 02:14 [facility] 01/26 00:42 Order name: Troponin HS; Complete Time: 03:42 01/26 00:42 Order name: XRAY Chest (1 view) [facility] 01/26 00:42 Order name: COVID-19 SARS RT PCR (Document "Date of Onset" if Symptomatic); Complete [facility] Time: 04:40 01/26 00:42 Order name: Influenza Screen (a \\T\\ B); Complete Time: 04:40 [facility] 01/26 00:46 Order name: CT Head Brain wo Cont [facility] 01/26 16:12 Order name: Troponin High Sensitivity EDMD 01/26 00:42 Order name: EKG; Complete Time: 00:42 01/26 00:42 Order name: Cardiac monitoring; Complete Time: 02:13 [facility] 01/26 00:42 Order name: EKG - Nurse/Tech; Complete Time: 02:13 [facility] 01/26 00:42 Order name: IV Saline Lock; Complete Time: 02:13 01/26 00:42 Order name: Labs collected and sent; Complete Time: 02:13 [facility] 01/26 00:42 Order name: O2 Per Protocol; Complete Time: 02:13 [facility] 01/26 00:42 Order name: O2 Sat Monitoring; Complete Time: 02:13 Administered Medications: 02:12 Drug: Dilaudid (HYDROmorphone) 1 mg Route: IVP; Site: left forearm; darian 02:15 Follow up: Response: No adverse reaction darian 02:12 Drug: Phenergan (promethazine) 12.5 mg Route: IVP; Site: left forearm; darian 02:14 Follow up: Response: No adverse reaction darian 02:13 Drug: NS 0.9% 500 ml Route: IV; Rate: bolus; Site: left forearm; darian 04:04 Drug: cloNIDine 0.3 mg Route: PO; darian 04:37 Follow up: Response: No adverse reaction darian 04:56 Drug: Dilaudid (HYDROmorphone) 1 mg Route: IVP; Site: left antecubital; darian 04:57 Follow up: Response: No adverse reaction darian 08:14 Drug: Metoprolol TARTRATE 100 mg Route: PO; ph 08:15 Drug: Ativan (LORazepam) 1 mg Route: IVP; Site: left forearm; ph 08:15 Drug: NS 0.9% 500 ml Route: IV; Rate: bolus; Site: left forearm; ph Disposition Summary: 01/26/22 08:40 Hospitalization Ordered Hospitalization Status: Observation [facility] Provider: Marin Hernandez [facility] Location: Telemetry/MedSurg (observation) [facility] Condition: Stable [facility] Problem: new [facility] Symptoms: have improved [facility] Bed/Room Type: Standard [facility] Room Assignment: [facility] Diagnosis - Chest pain, unspecified [facility] - Coronavirus infection, unspecified [facility] - Dehydration [facility] - Tachycardia, unspecified [facility] Forms: - Medication Reconciliation Form [facility] - SBAR form [facility] Signatures: Dispatcher [employer] EDScarlett Gallegos RN RN ph Bryson, James, RN RN jb4 Holmes, Maurice, MD MD 7 Darcy Cervantes RN RN bo Brown, Sophia, PA PA sb3 Corrections: (The following items were deleted from the chart) 07:14 07:13 Body aches. [place] [address] 07:20 07:14 Constitutional: Negative for fever, chills, and weight loss, Eyes: Negative for 7 injury, pain, redness, and discharge, Neck: Negative for injury, pain, and swelling, Cardiovascular: Negative for chest pain, palpitations, and edema, Respiratory: Negative for shortness of breath, cough, wheezing, and pleuritic chest pain, Abdomen/GI: Negative for abdominal pain, nausea, vomiting, diarrhea, and constipation, Back: Negative for injury and pain, : Negative for injury, bleeding, discharge, and swelling, MS/Extremity: Negative for injury and deformity, Skin: Negative for injury, rash, and discoloration, Neuro: Negative for headache, weakness, numbness, tingling, and seizure, Psych: Negative for depression, anxiety, suicide ideation, homicidal ideation, and hallucinations, Allergy/Immunology: Negative for hives, rash, and allergies, Endocrine: Negative for neck swelling, polydipsia, polyuria, polyphagia, and marked weight changes, Hematologic/Lymphatic: Negative for swollen nodes, abnormal bleeding, and unusual bruising, mh7
--- NOTE | 2022-01-26 08:41 | ER ---
Nurse's Notes [facility] [place] Name: Babs Younger Age: 51 yrs Sex: Female : 1970 Arrival Date: 01/25/2022 Time: 23:30 Bed 14 Private MD: Diagnosis: Chest pain, unspecified;Coronavirus infection, unspecified;Dehydration;Tachycardia, unspecified Presentation: 01/26 00:01 Chief complaint: Patient states: I think I have covid-19. I was at a baby shower, my jb4 sisters had it. I have lupus as well so I don't know which it is. I have a runny nose, pain all over. Coronavirus screen: At this time, the client does not indicate any symptoms associated with coronavirus-19. Ebola Screen: No symptoms or risks identified at this time. Initial Sepsis Screen: Does the patient meet any 2 criteria? RR > 20 per min. HR > 90 bpm. Yes Does the patient have a suspected source of infection? No. Patient's initial sepsis screen is negative. Risk Assessment: Do you want to hurt yourself or someone else? Patient reports no desire to harm self or others. Onset of symptoms was January 26, 2022. Transition of care: patient was not received from another setting of care. 00:01 Method Of Arrival: Ambulatory jb4 00:01 Acuity: ELVA 2 jb4 Triage Assessment: 02:53 General: Appears in no apparent distress. Behavior is calm, cooperative. 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 LMP N/A - Hysterectomy jb4 Historical: - Allergies: 00:05 Morphine; jb4 00:05 SHELLFISH; jb4 - Home Meds: 00:05 amlodipine 10 mg tab 1 tab once daily [Active]; CellCept 500 mg Oral tab 2 tabs 2 times jb4 per day [Active]; clonidine HCl 0.3 mg Oral tab 1 tab three times a day [Active]; gabapentin 400 mg Oral cap 1 cap as needed [Active]; hydralazine 50 mg Oral tab 1 tab three times a day [Active]; doxazosin 4 mg Oral tab 1 tab once daily [Active]; metoprolol tartrate 100 mg Oral tab 1 tab 2 times per day [Active]; - PMHx: 00:05 Diabetes - IDDM; bowel obstruction; ESRD; Hypertension; Lupus; Renal Disease; Seizures; jb4 - PSHx: 00:05 Colostomy reversal; jb4 - Immunization history:: Adult Immunizations up to date. - Social history:: Smoking status: Patient denies any tobacco usage or history of. Screenin:14 Abuse screen: Denies threats or abuse. Denies injuries from another. Nutritional darian screening: No deficits noted. Tuberculosis screening: No symptoms or risk factors identified. Fall Risk None identified. Assessment: 00:12 Reassessment: Patient appears in no apparent distress at this time. No changes from darian previously documented assessment. Per the Triage nurse, the pt was tachycardic, so he is performing the EKG, as he just put her in the room. I agree with previous assessment. The pt greeted me with,"You must be new...I'm here all the time...Dr. Bright told me to come get checked out...I think I might have Covid..." She appears in NAD. 00:15 Reassessment: The pt said,"I don't want to be stuck 7 times...I need someone with that darian machine...". 00:21 Reassessment: The pt is histrionic and loudly moaning, as the bp cuff takes a reading. darian I suggested that I place it to her leg, she declined. 00:37 Reassessment: I found the pt screaming "Uh. Uh. Uh." audible throughout the ER. The pt darian was lying next to her bed, shaking her arms, screaming. Another nurse came to help me with her, as she scooted away from me when I was attempting to assist her back into the bed. He was able to lift her, after she initially tried to scoot away from him, too. The pt was then able to speak with the MD. Awaiting orders. She has been placed back on the monitor, having removed all the leads. 00:58 Reassessment: I attempted two times to draw labs and start an IV, to no avail. I've darian asked my charge nurse to help. The other nurse that helped me get the pt back into bed, placed the pads on the siderails, although it did not look like sz activity, and she was able to respond immediately after, speaking with the MD. 01:18 Reassessment: I asked the charge, house supp and the other nurses standing at the main darian station for an IV on this pt, as I was unable to get it after two attempts. 02:52 Reassessment: The pt is much more relaxed. She remains on the monitor. She was darian medicated prior to her CT and said that this "made it much easier". 02:53 Cardiovascular: Rhythm is sinus tachycardia. darian 02:55 Pain: Pain began suddenly. darian 02:55 Pain: Pain does not radiate. darian 04:04 Reassessment: The pt was given her night time dose of the clonidine. darain 04:06 Reassessment: The pt states,"He not gonna give me nothing else for the pain?" I told darian her that he would be back to assess her. The pt asked for her purse and is now rummaging through it and states,"If he ain't gonna help me on the pain, I should just go." I asked that she wait and give him time to see her again. 04:13 Reassessment: Although the pt has recv'd no additional pain medication, she is reading darian her phone, quietly, and thumbing through her purse. She is calm and cooperative, now. 07:15 Reassessment: Patient appears in no apparent distress at this time. Pt pressed call ph light, crying and emotionally distressed, states, " That doctor said he's going to send me home. I can't go home and be in pain like this. I have lupus and I feel like it's about to start flaring up because I have covid. I feel like I'm getting blisters in my throat and when that happens I start getting blisters all over my body. Dr Wong knows, he's the one I called and he told me to come up here. Is there another doctor on today that I can talk to or they can call Dr. Wong about me?" Informed pt that I would ask the doctor to come speak w/ her. HR elevated (120) when pt had emotional outburst, decreased to 106 after quieting, Spo2 99% RA, no respiratory distress noted. 07:52 Reassessment: Spoke to DR Lara about pt's concerns, verbal order received for IVP ph ativan, 500 NS bolus and metoprolol dose that pt normally takes in the morning, see OCT. 08:15 Reassessment: Patient appears in no apparent distress at this time. Dr France at bedside to speak w/ pt, pt tearful, c/o pain and difficulty urinating, Dr France told pt that he would see pt in hospital if she was admitted and would have a follow up in his office if she was d/c home, IV Ativan and home BP meds given to pt, awaiting decision of ERP whether pt will be admitted or d/c home. 09:30 Reassessment: Pt requesting pain medication, no admission orders at this time. 10:53 Reassessment: DR Hernandez at bedside to speak w/ pt, awaiting admission orders. Vital Signs: 00:01 BP 219 / 136; Pulse 136; Resp 24; Temp 97.5(TE); Pulse Ox 100% on R/A; Weight 79.83 kg jb4 (R); Height 5 ft. 2 in. (157.48 cm) (R); Pain 10/10; 00:20 BP 209 / 129; Pulse 119; Resp 20; Temp 97.5; Pulse Ox 100% on R/A; darian 01:20 BP 186 / 108; Pulse 116; Resp 20; Pulse Ox 99% on R/A; darian 02:15 BP 190 / 122; Pulse 110; Resp 18; Pulse Ox 100% on R/A; darian 03:15 BP 196 / 118; Pulse 120; Resp 20; Pulse Ox 100% on R/A; Pain 10/10; darian 04:05 BP 175 / 94; Pulse 103; Resp 18; Pulse Ox 100% on R/A; darian 04:38 BP 193 / 100; Pulse 102; Resp 16; Pulse Ox 99% on R/A; darian 05:18 BP 186 / 97; Pulse 101; Resp 16; Pulse Ox 99% on R/A; darian 06:40 BP 183 / 101; Pulse 107; Resp 16; Temp 97.5; Pulse Ox 99% on R/A; Pain 0/10; darian 00:01 Body Mass Index 32.19 (79.83 kg, 157.48 cm) jb4 ED Course: 01/25 23:30 Patient arrived in ED. jj6 01/26 00:04 Triage completed. jb4 00:05 Arm band placed on right wrist. jb4 00:12 Darcy Cervantes, RN is Primary Nurse. darian 00:17 site monitor on. darian 00:27 Brent Brothers MD is Attending Physician. 7 01:16 XRAY Chest (1 view) In Process Unspecified. EDMS 02:13 Influenza Screen (a \\T\\ B) Sent. darian 02:13 COVID-19 SARS RT PCR (Document "Date of Onset" if Symptomatic) Sent. darian 02:14 Basic Metabolic Panel Sent. darian 02:14 Troponin HS Sent. darian 02:14 NT PRO-BNP Sent. darian 02:14 Magnesium Sent. darian 02:14 LFT's Sent. darian 02:50 CT Head Brain wo Cont In Process Unspecified. EDMS 02:53 No provider procedures requiring assistance completed. darian 02:55 Bed in low position. Call light in reach. Side rails up X2. darian 02:55 Patient maintains SpO2 saturation greater than 95% on room air. darian 08:39 Marin Hernandez is Hospitalizing Provider. mh7 Administered Medications: 02:12 Drug: Dilaudid (HYDROmorphone) 1 mg Route: IVP; Site: left forearm; darian 02:15 Follow up: Response: No adverse reaction darian 02:12 Drug: Phenergan (promethazine) 12.5 mg Route: IVP; Site: left forearm; darian 02:14 Follow up: Response: No adverse reaction darian 02:13 Drug: NS 0.9% 500 ml Route: IV; Rate: bolus; Site: left forearm; darian 04:04 Drug: cloNIDine 0.3 mg Route: PO; darian 04:37 Follow up: Response: No adverse reaction darian 04:56 Drug: Dilaudid (HYDROmorphone) 1 mg Route: IVP; Site: left antecubital; darian 04:57 Follow up: Response: No adverse reaction darian 08:14 Drug: Metoprolol TARTRATE 100 mg Route: PO; ph 08:15 Drug: Ativan (LORazepam) 1 mg Route: IVP; Site: left forearm; ph 08:15 Drug: NS 0.9% 500 ml Route: IV; Rate: bolus; Site: left forearm; ph Medication: 02:55 VIS not applicable for this client. darian Outcome: 02:54 Condition: stable darian 08:40 Decision to Hospitalize by Provider. 7 18:34 Patient left the ED. iw Signatures: Dispatcher [employer] Nataliia Blunt, RN Scarlett Song RN RN ph Bryson, James, RN RN jb4 Holmes, Maurice, MD MD 7 Jillian Gaston6 Darcy Cervantes RN RN darian Corrections: (The following items were deleted from the chart) 07:53 07:52 Reassessment: Spoke to DR Lara about pt's concerns, verbal order received for ph IVP ativan, 500 NS bolus and metoprolol dose that pt normally takes in the morning ph
[2022-01-26] MEDS ORDERED: AZITHROMYCIN 500 MG INJ IVPB ONE (09:33)
[2022-01-26] MEDS ORDERED: NA CHLORIDE 0.9% 250 ML ONE (09:34)
--- NOTE | 2022-01-26 12:17 | EKG ---
Test Date: 2022-01-26 Test Time: 00:10:58 Osteopathic Medicine Teacher: YURIDIA MEASUREMENT RESULTS: Intervals: Rate: 121 CA: 174 QRSD: 82 QT: 312 QTc: 443 [place]: P: 41 CA: 174 QRS: 10 T: 90 INTERPRETIVE STATEMENTS: Sinus tachycardia Biatrial enlargement Left ventricular hypertrophy with repolarization abnormality Abnormal ECG Compared to ECG 11/25/2021 06:40:15 Atrial premature complex(es) no longer present Electronically Signed On 01-26-22 12:16:31 CDT by Jesse Jaime
--- NOTE | 2022-01-26 13:52 | RAD REPORT ---
EXAM DESCRIPTION: CT - Head Brain Wo Cont - 01/26/2022 6:41 am CLINICAL HISTORY: Head trauma, minor TECHNIQUE: Axial computed tomography images of the head/brain without intravenous contrast. Sagitt al and coronal reformatted images were created and reviewed. This CT exam was performed using one o r more of the following dose reduction techniques: automated exposure control, adjustment of the mA and/or kV according to patient size, and/or use of iterative reconstruction technique. COMPARISON: CT Head dated 04/24/2021 FINDINGS: Brain: Bilateral periventricular and subcortical white matter hypodensity most likely re lated to chronic microvascular angiopathy without significant interval change. No hemorrhage. Ventricles: Unremarkable. No ventriculomegaly. Bones/joints: Unremarkable. No acute fracture. Soft tissues: Unremarkable. Sinuses: Pansinus mucosal thickening, partial opacification and air-fluid levels. Mastoid air cells: Partial opacification of the right mastoid air cells. IMPRESSION: 1. No acute intracranial or extra-axial abnormality. 2. Other findings as above. Electronically signed by: Christoph Velez MD 01/26/2022 3:06 AM CDT Due to temporary technical issues with the PACS/Fluency reporting system, reports are being signed by the in house radiologist without review as a courtesy to ensure prompt reporting. The interpreting r adiologist is fully responsible for the content of the report.
--- NOTE | 2022-01-26 13:55 | RAD REPORT ---
EXAM DESCRIPTION: RAD - Chest Single View - 01/26/2022 1:15 am CLINICAL HISTORY: The patient is 51 years old and is Female; Cough TECHNIQUE: Frontal view of the chest. COMPARISON: November 19, 2021. FINDINGS: Lungs: No consolidation. Mildly prominent vascular markings. Pleural space: Unremarkable. No pneumothorax. Heart: Unremarkable. Mediastinum: Unremarkable. Bones/joints: Unremarkable. IMPRESSION: No acute findings in the chest. Electronically signed by: Juan Jones MD 01/26/2022 1:24 AM CDT Due to temporary technical issues with the PACS/Fluency reporting system, reports are being signed by the in house radiologist without review as a courtesy to ensure prompt reporting. The interpreting r adiologist is fully responsible for the content of the report.
[2022-01-26] MEDS ORDERED: GABAPENTIN 300 MG CAP PO SCH (14:13)
[2022-01-26] MEDS ORDERED: ACETAMINOPHEN 500 MG TAB PO PRN (14:13)
[2022-01-26] MEDS ORDERED: ONDANSETRON 4 MG (ODT) TAB PO PRN (14:13)
[2022-01-26] MEDS ORDERED: CLONIDINE HCL 0.3 MG TAB PO SCH (14:13)
[2022-01-26] MEDS ORDERED: HYDRALAZINE HCL 25 MG TABLET PO SCH (14:13)
[2022-01-26] MEDS ORDERED: NA CHLORIDE 0.9% 1,000 ML IV SCH (14:13)
[2022-01-26] MEDS ORDERED: ONDANSETRON 4 MG/2 ML VIAL IV PRN (14:13)
[2022-01-26] MEDS ORDERED: HYDROMORPHONE HCL 1 MG/ML INJ IV PRN (14:13)
[2022-01-26] MEDS ORDERED: NA CHLORIDE 0.9% 1,000 ML ONE (15:33)
[2022-01-26] MEDS ORDERED: HYDRALAZINE HCL 25 MG TABLET ONE (15:33)
[2022-01-26] MEDS ORDERED: GABAPENTIN 300 MG CAP ONE (15:33)
[2022-01-26] MEDS ORDERED: HYDROMORPHONE HCL 1 MG/ML INJ IV ONE (15:46)
[2022-01-26] MEDS ORDERED: HEPARIN 5000 UNIT/ML 1 ML VIAL SQ SCH (17:00)
[2022-01-26 17:06] VITALS: BMI 32.1
[2022-01-26 19:23] VITALS: O2SAT 99
[2022-01-26 19:52] VITALS: BP 179/100; TEMP 98.2
[2022-01-26] MEDS ORDERED: SODIUM BICARB 325 MG TAB PO SCH (21:00)
[2022-01-26] MEDS ORDERED: ALPRAZOLAM 0.5 MG TABLET PO SCH (21:00)
[2022-01-26] MEDS ORDERED: METOPROLOL TAR 50 MG TAB PO SCH (21:00)
[2022-01-27] MEDS ORDERED: CALCITROL 0.25 MCG CAP PO SCH (09:00)
[2022-01-27] MEDS ORDERED: AMLODIPINE 10 MG TAB PO SCH (09:00)
[2022-01-27] MEDS ORDERED: DOXAZOSIN 4 MG TAB PO SCH (09:00)
--- NOTE | 2022-01-28 20:53 | P.CNS ---
Date of Consult: 01/26/22 Reason for Consult: DAE/ CKD Requesting Physician: Brent Brothers Chief Complaint: Diffuse pain History of Present Illness: 51 yo BF CKD/ SLE presented to the ER with severe, progressive diffuse pain in the setting of SLE exacerbated by COVID. 00:30 This 51 yrs old Black Female presents to ER via Ambulatory with complaints of Pain All mh7 Over, Irregular Pulse. 07:14 body aches. Onset: The symptoms/episode began/occurred 7 day(s) ago. Severity of mh7 symptoms: At their worst the symptoms were moderate 4 day(s) ago, in the emergency department the symptoms are unchanged. States that she was exposed to COVID at a baby shower about 10 days ago. States that she has had runny nose, congestion and pain all over her body.. Allergies morphine Allergy (Severe, Verified 09/07/17 09:12) Unknown Home medications list reviewed: Yes Home Medications: Hydralazine HCl 100 mg PO TID 07/09/15 Metoprolol Tartrate 100 mg PO BID 07/09/15 Amlodipine [Norvasc*] 10 mg PO DAILY 08/08/15 Gabapentin 300 mg PO TID 09/07/17 Hydroxychloroquine [Plaquenil*] 200 mg PO BID 09/07/17 Zolpidem Tartrate [Ambien] 10 mg PO BEDTIME PRN PRN 09/07/17 Mycophenolate Mofetil [Cellcept] 2 tab PO BID 08/02/19 Ondansetron [Zofran (Odt)*] 1 tab PO DAILY PRN 08/30/20 Alprazolam [Xanax] 1 tab PO BID 04/25/21 Na Bicarb Tab [Sodium Bicarb 325 MG Tab*] 650 mg PO BID 04/25/21 calcitrioL [Rocaltrol] 0.25 mcg PO Q48H 11/19/21 Doxazosin [Cardura*] 4 mg PO DAILY tab 11/20/21 cloNIDine HCL [Catapres*] 0.6 mg PO TID #0 tablet 11/20/21 metroNIDAZOLE [Flagyl] 500 mg PO TID 7 Days #21 tablet 11/26/21 Hydrocodone 7.5/APAP 325 [[place] 7.5/325 mg*] 1 tab PO Q6H PRN #40 tab 01/27/22 - Past Medical/Surgical History Diabetic: No -: Lupus, Rheumatology-Dr. Rothman -: HTN -: Seizure disorder -: History of Small bowel obstruction -: Ileostomy in place -: CAD -: History of avascular necrosis -: History of pyelonephritis -: Depression with history of suicidal ideation -: depression -: CKD, Lupus Nephritis followed by Dr. Jean-Baptiste -: -: Hysterectomy -: Bowel resection -: Colostomy -: trach (reversed) -: Removal of colostomy now with ileostomy Psychosocial/ Personal History: single, one child. - Family History Sister Notes: lupus Father Medical History: Kidney disease Notes: Mother Medical History: Hypertension, Cancer Notes: , uterine Brother Medical History: Hypertension, Diabetes - Social History Smoking Status: Unknown if ever smoked Alcohol use: No CD- Drugs: No Caffeine use: Yes Place of Residence: Home Review of Systems 10-point ROS is otherwise unremarkable General: Weakness, Malaise Musculoskeletal: Shoulder Pain, Back Pain, Hand Pain, Leg Pain, Foot Pain Neurological: Weakness Physical Examination Temp Pulse Resp BP Pulse Ox 98.2 F 91 H 18 179/100 H 99 01/26/22 16:00 01/26/22 16:00 01/26/22 16:00 01/26/22 16:00 01/26/22 16:00 General: In no apparent distress, Oriented x3, Cooperative, Moderate distress HEENT: Atraumatic Neck: Supple Respiratory: Clear to auscultation bilaterally Cardiovascular: No edema, Regular rate/rhythm Gastrointestinal: Soft and benign, Non-distended, Tenderness Musculoskeletal: No clubbing, No contractures Integumentary: No rashes, No cyanosis Neurological: Normal speech Blood work reviewed in the chart. Imagings Data: EXAM DESCRIPTION: RAD - Chest Single View - 01/26/2022 1:15 am CLINICAL HISTORY: The patient is 51 years old and is Female; Cough TECHNIQUE: Frontal view of the chest. COMPARISON: November 19, 2021. FINDINGS: Lungs: No consolidation. Mildly prominent vascular markings. Pleural space: Unremarkable. No pneumothorax. Heart: Unremarkable. Mediastinum: Unremarkable. Bones/joints: Unremarkable. IMPRESSION: No acute findings in the chest. Conclusions/Impression: DAE/ CKD Lupus Nephritis -No NSAIDs -Restart Cellcept -Continue IVF Acidosis -Continue oral bicarb HTN with CKD -Continue Amlodipine -Continue Hydralazine COVID bronchitis -Increase steroid therapy -Consider zithromax Thank you kindly for the consultation. Seen and examined in the ER.
--- NOTE | 2022-02-06 23:48 | P.SSS ---
Patient History Date of Service: 01/26/22 Reason for admission: Diffuse pain History of Present Illness: Patient is a 51-year-old female who came into the emergency room with diffuse joint pain. Patient has a long history of systemic lupus erythematous and has had numerous complications from her lupus. 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 She has had multiple surgeries secondary to her uncontrolled lupus disease. Patient came into the hospital for further evaluation. Allergies morphine Allergy (Severe, Verified 09/07/17 09:12) Unknown Home Medications: Hydralazine HCl 100 mg PO TID 07/09/15 Metoprolol Tartrate 100 mg PO BID 07/09/15 Amlodipine [Norvasc*] 10 mg PO DAILY 08/08/15 Gabapentin 300 mg PO TID 09/07/17 Hydroxychloroquine [Plaquenil*] 200 mg PO BID 09/07/17 Zolpidem Tartrate [Ambien] 10 mg PO BEDTIME PRN PRN 09/07/17 Mycophenolate Mofetil [Cellcept] 2 tab PO BID 08/02/19 Ondansetron [Zofran (Odt)*] 1 tab PO DAILY PRN 08/30/20 Alprazolam [Xanax] 1 tab PO BID 04/25/21 Na Bicarb Tab [Sodium Bicarb 325 MG Tab*] 650 mg PO BID 04/25/21 calcitrioL [Rocaltrol] 0.25 mcg PO Q48H 11/19/21 Doxazosin [Cardura*] 4 mg PO DAILY tab 11/20/21 cloNIDine HCL [Catapres*] 0.6 mg PO TID #0 tablet 11/20/21 metroNIDAZOLE [Flagyl] 500 mg PO TID 7 Days #21 tablet 11/26/21 Hydrocodone 7.5/APAP 325 [[place] 7.5/325 mg*] 1 tab PO Q6H PRN #40 tab 01/27/22 - Past Medical/Surgical History Has patient received pneumonia vaccine in the past: Yes Diabetic: No -: Lupus, Rheumatology-Dr. Rothman -: HTN -: Seizure disorder -: History of Small bowel obstruction -: Ileostomy in place -: CAD -: History of avascular necrosis -: History of pyelonephritis -: Depression with history of suicidal ideation -: depression -: CKD, Lupus Nephritis followed by Dr. Jean-Baptiste -: -: Hysterectomy -: Bowel resection -: Colostomy -: trach (reversed) -: Removal of colostomy now with ileostomy Psychosocial/ Personal History: single, one child. - Family History Sister Notes: lupus Father -: Kidney disease Notes: Mother -: Hypertension, Cancer Notes: , uterine Brother -: Hypertension, Diabetes - Social History Smoking Status: Never smoker Alcohol use: No CD- Drugs: No Caffeine use: Yes Place of Residence: Home Review of Systems 10-point ROS is otherwise unremarkable Physical Examination - Vital Signs Temperature: 98.2 F Blood Pressure: 179/100 Pulse: 91 Respirations: 18 Pulse Ox (%): 99 - Physical Exam General: Alert, In no apparent distress, Oriented x3 HEENT: Atraumatic, PERRLA, Mucous membr. moist/pink, EOMI, Sclerae nonicteric Neck: Supple, 2+ carotid pulse no bruit, No LAD, Without JVD or thyroid abnormality Respiratory: Clear to auscultation bilaterally, Normal air movement Cardiovascular: Regular rate/rhythm, Normal S1 S2, No murmurs Gastrointestinal: Normal bowel sounds, Soft and benign, Non-distended, No tenderness Musculoskeletal: No clubbing, No swelling, No tenderness Integumentary: No rashes Neurological: Normal gait, Normal speech, Normal strength at 5/5 x4 extr, Normal tone, Normal affect Lymphatics: No axilla or inguinal lymphadenopathy - Diagnosis (Problem(s)) (1) SLE exacerbation Status: Acute (2) H/O colostomy Onset Date: 04/28/18 Status: Acute (3) Lupus cerebritis Status: Acute (4) Lupus nephritis Status: Acute (5) AVN (avascular necrosis of bone) Onset Date: 04/28/18 Status: Chronic (6) Diabetes mellitus Onset Date: 04/28/18 Status: Chronic Qualifiers: Diabetes mellitus type: type 2 Diabetes mellitus terminal gauger insulin use: with terminal gauger use Diabetes mellitus complication status: with other specified complication Qualified Code(s): E11.69 - Type 2 diabetes mellitus with other specified complication; 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 - Disposition Disposition: AMA-LEFT AGAINST MEDICAL ADVIC Time Spent Managing Pts Care (In Minutes): 45
== END 2022-01-26 18:20 | disposition left against medical advice (07) | DRG 177 ==
LOC: ER 23:27 → ERHOLD 01-26 11:40
PROVIDERS: ADMIT Internal Medicine; ATTEND Hospitalist
DX: U07.1 COVID-19 (principal); G05.3 Encephalitis and encephalomyelitis in diseases classified elsewhere; M87.9 Osteonecrosis, unspecified; J40 Bronchitis, not specified as acute or chronic; M32.9 Systemic lupus erythematosus, unspecified; M32.19 Other organ or system involvement in systemic lupus erythematosus; M32.14 Glomerular disease in systemic lupus erythematosus; G40.909 Epilepsy, unspecified, not intractable, without status epilepticus; I25.10 Atherosclerotic heart disease of native coronary artery without angina pectoris; I12.9 Hypertensive chronic kidney disease with stage 1 through stage 4 chronic kidney disease, or unspecified chronic kidney disease; N18.9 Chronic kidney disease, unspecified; E11.22 Type 2 diabetes mellitus with diabetic chronic kidney disease; Z79.4 Long term (current) use of insulin; Z53.29 Procedure and treatment not carried out because of patient's decision for other reasons; Z93.2 Ileostomy status
CPT/HCPCS: 36415; 70450; 71045; 80048; 80076; 83735; 83880; 84484; 85025; 85610; 87804; 93005; 99285; J0456; J1170; J2550; J7030; J7040; J7050; U0003

== ENCOUNTER 2022-07-03 00:12 | Emergency (ER) | payer OTHER ==
--- OUTSIDE RECORDS SUMMARY | 2022-07-03 00:21 | XMS REPORT | Continuity of Care Document ---
:1970 Author Organization [facility] t Address [address] [place] [address] Care Team Providers Name Role Phone Monico Espinoza DO Dorota Primary Care Physician [phone] [facility] Attending Clinician Unavailable Naga Shepherd MD S Attending Clinician Jeanna Shrestha Attending Clinician TONY GRAF S Attending Clinician Unavailable Ligia Pedro MD Attending Clinician LIGIA PEDRO Attending Clinician Unavailable LIGIA PEDRO Attending Clinician Unavailable Doctor Unassigned, [place] Attending Clinician Unavailable ABEL LI Attending Clinician Unavailable ABEL LI Admitting Clinician Unavailable Payers Payer Name Policy Type Policy Number Effective Date Expiration Date S ource MEDICAID OF [place] [id number] 2014 00:00:00 [facility] [id number] 2017 DUAL COMPLETE 00:00:00 Problems Condition Condition Condition Status Onset Resolution Last Treating Co mments Source Name Details Category Date Date Treatment Clinician Date Hypertensi Hypertensi Disease Active 2019-0 M ethodi ve ve 1-12 st emergency emergency 00:00: Hosp [facility] 00 [...] Disease Active 2017-[address] [facility]30 [facility] Systemic Systemic Disease Active 2017-08 [facility] lupus lupus [facility] erythemato erythemato 00:00: Me dical al al 00 Center Essential Essential Disease Active 2017-[address] [facility] hypertensi hypertensi 1-30 Gilda kes on on 00:00: Medical 00 Center Type 2 Type 2 Disease Active 2017-[address] [facility] diabetes diabetes 1-30 [facility] mellitus mellitus 00:00: Medica l with with 00 Center kidney kidney complicati complicati on, with on, with long-term long-term current current use of use of insulin insulin Colostomy Colostomy Disease Active 2018-[address] [facility] complicati complicati 1-30 Gilda kes on on 00:00: Medical 00 Center bright red bright red Disease Active 2017-[address] blood in blood in 30 [facility] colostomy colostomy 00:00: [facility] 00 Center HTN HTN Disease Active 2017-[address] [facility] (hypertens (hypertens 1-30 Gilda kes ion), ion), 00:00: Medical malignant malignant 00 Cent er Lupus Lupus Disease Active 2017-[address] nephritis nephritis 30 [facility] s 00:00: [facility] 00 Center DAE (acute DAE (acute Disease Active 2017-[address] kidney kidney 30 [facility] injury) injury) 00:00: Medical 00 Center Hypernatre Hypernatre Disease Active 2017-[address] charisse charisse 09-27 [facility] 00:00: [facility] Center Hypokalemi Hypokalemi Disease Active 2017-[address] a a -30 [facility] 00:00: [facility] Center Bowel Bowel Disease Active Univers obstructio obstructio 3-20 it y of n n 00:00: [place] [facility] Colonic Colonic Disease Active Univers obstructio obstructio 3-19 it y of n n 00:00: [address] Branch Colostomy Colostomy Disease Active Met hodi in place in place 02-23 st 00:00: Hospita 00 l Seizure Seizure Disease Active Univers 9-21 ity of 00:00: [place] [facility] Obesity Obesity Disease Active Univers (BMI (BMI 9-20 ity of 30-39.9) 30-39.9) 00:00: [place] [facility] Pulmonary Pulmonary Disease Active Uni vers edema edema 8-28 ity of 00:00: [place] [facility] Systemic Systemic Disease Active Unive rs lupus lupus 2-23 ity of erythemato erythemato [place] Depression Depression Disease Active U nivers , major , major 2-18 ity of 00:00: [place] [facility] DAE (acute DAE (acute Disease Active U nivers kidney kidney 2-12 ity of injury) injury) 00:00: [place] [facility] HTN HTN Disease Active Univers (hypertens (hypertens 2-12 it y of ion) ion) 00:00: [place] [facility] Lupus Lupus Disease Active Univers nephritis nephritis 2-11 ity of 00:00: [place] [facility] Allergies, Adverse Reactions, Alerts Allergy Allergy Status Severity Reaction(s) Onset Inactive Treating Comm ents Source Name Type Date Date Clinician MAYEFIS Allergy Active 2017-[address] [facility] H -30 [facility] CONTAINI 00:00: Medical NG 00 Center PRODUCTS Shellfis Propensi Active 2017-[address] h ty to 09-27 [facility] Containi adverse 00:00: Medical ng reaction 00 Center Products s SHRIMP DRUG Active High Dizziness Univers INGREDI [...] Un [place] INGREDI 05-13 ity of 00:00: [place] [facility] Morphine Propensi Active Palpitations Methodi ty to 05-13 st adverse 00:00: Hospita reaction 00 l s to drug Family History Family Member Diagnosis Comments Start Date Stop Date Source Natural father Kidney disease [facility] Natural father Kidney cancer [facility] Natural mother Cancer [facility] Natural mother Hypertension [facility] Natural mother Uterine cancer [facility] Natural sister Diabetes [facility] Social History Social Habit Start Date Stop Date Quantity Comments Source Exposure to Not sure University of SARS-CoV-2 [place] [facility] (event) Branch History SDOH [facility] Alcohol Std Medical Cente r Drinks History SDOH [facility] Alcohol Binge Medical Tarik ter History SDOH [facility] Alcohol Comment Medical C enter Tobacco use and 2021-03-27 2021-03-27 Never used Universit y of exposure 00:00:00 00:00:00 [facility] [place] [facility] Alcohol intake 2019-08-27 2019-08-27 Current [facility] 00:00:00 00:00:00 non-drinker of alcohol (finding) History SDOH 2018-07-28 2018-07-[address] [facility] Alcohol Frequency 00:00:00 00:00:00 Medical Center Sex Ass[birth year] At [birth year] [facility] 00:00:00 00:00:00 Smoking Status Start Date Stop Date Source Never smoker [place] [facility] Branch Medications Ordered Filled Start Stop Current [...] Fri Medica l NaCl 0.9% 03/27/21 at [facility] ch (NS) 50 mL 0230, 50 piggyback mL FENTanyl PF 2020- No 100ug 100 mcg, Univers (SUBLIMAZE 03-27 Slow IV ity o f (PF)) 07:30: 06:31 Push, [place] injection 00 :00 ONCE, 1 Medical 100 mcg dose, [place] 03/27/21 at 0230, Routine amoxicillin Yes [id number] 875mg Take 1 Univers 875 mg 5-20 [id number] tablet by ity of tablet 00:00: mouth 2 [place] 00 (two) Medical times Branch daily. amoxicillin Yes [id number] 875mg Take 1 Univers 875 mg 5-20 [id number] tablet by ity of tablet 00:00: mouth 2 [place] 00 (two) Medical times Branch daily. neomycin-po 2020- No [id number] 3[drp] Place 3 Univers lymyxin-hyd - 05-28 17185 Drops in it y of rocortisone 00:00: 04:59 right ear [place] 3.5-10,000- 00 :00 4 (four) Medi valentin 1 times Branch mg/mL-unit/ daily for mL-% otic 7 days. susp HYDROCODONE 2020-0 Yes Take by Met hodi [...] 14 (two) l tablet times a day. hydroxychlo 2020-0 Yes 500mg Q.5D Take 500 M ethodi roquine 1-[address] (PLAQUENIL) 16:02: mouth 2 Hos monique 200 mg 14 (two) l tablet times a day. HYDROCODONE 2020-0 Yes Take by Met hodi /ACETAMINOP 1-[address] HEN (NORCO 16:02: needed. Hosp liliana ORAL) 14 l ALPRAZolam 2020-0 Yes .5mg Q.5D Take 0.5 Met hodi (XANAX) 0.5 1-[address] MG tablet 16:02: mouth 2 Hospi ta 14 (two) l times a day as needed for anxiety. sertraline 2020-0 Yes 25mg QD Take 25 mg M ethodi (ZOLOFT) 25 1-[address] MG tablet 16:02: daily. Hospit a 14 l pilocarpine 2020-0 Yes 5mg QD Take 5 mg M ethodi (SALAGEN) 5 1-[address] MG tablet 16:02: daily. Hospit a 14 l sodium 2020-0 Yes 648mg QD Take 648 Method i bicarbonate 1-[address] 650 mg 16:02: mouth Hospita tablet 14 daily. l doxazosin 2017-08 Yes 4mg Take [address] (CARDURA) 2 2-04 by mouth. Jose es MG tablet 08:16: [address] pantoprazol 2017-08 Yes 40mg QD Take [address] e 2-04 by mouth [facility] (PROTONIX) 08:16: daily. Medic al 40 MG 44 Center tablet doxazosin 2017-08 Yes 4mg Take [address] (CARDURA) 2 2-04 by mouth. Jose es MG tablet 08:16: [address] pantoprazol 2017-08 Yes 40mg QD Take [address] e 2-04 by mouth [facility] (PROTONIX) 08:16: daily. Medic al 40 MG 44 Center tablet doxazosin 2017-08 Yes 4mg Take [address] (CARDURA) 2 2-04 by mouth. Jose es MG tablet 08:16: [address] pantoprazol 2017-08 Yes 40mg QD Take [address] e 2-04 by mouth [facility] (PROTONIX) 08:16: daily. Medic al 40 MG 44 Center tablet zolpidem 2017-08 Yes 10mg QD Take [address] (AMBIEN) 10 1-25 by mouth Luke s mg tablet 00:00: nightly. [address] zolpidem 2017-08 Yes 10mg QD Take [address] (AMBIEN) 10 1-25 by mouth Luke s mg tablet 00:00: nightly. [address] zolpidem 2017-08 Yes 10mg QD Take [address] (AMBIEN) 10 1-25 by mouth Luke s mg tablet 00:00: nightly. [address] ondansetron 2017-08 Yes DIS 1 T [...] PRN Jose es hen (NORCO 00:00: Medical ) 00 Center 10-325 mg per tablet HYDROcodone 2017-08 Yes TK [address] [facility] -acetaminop 1-15 Q 8 H PRN Jose es hen (NORCO 00:00: Medical ) 00 Center 10-325 mg per tablet HYDROcodone 2017-08 Yes TK 1 T [address] [facility] -acetaminop 1-15 Q 8 H PRN Jose es hen (NORCO 00:00: Medical ) 00 Center 10-325 mg per tablet HUMULIN [...] MG 00:00: Medical capsule 00 Center hydroxychlo 2017-1 Yes TK [address] roquine 0-10 D [facility] (PLAQUENIL) 00:00: Medica l 200 mg 00 [place] tablet doxazosin 2017-0 Yes 4mg Take 4 mg Uni vers (CARDURA) 2 3-21 by mouth ity of mg tablet 20:00: daily. [place] [address] Medical Branch metoprolol 2017-0 Yes 100mg Take [...] mouth ity of 10 mg 20:00: daily. [place] [address] Medical Branch doxazosin 2017-0 Yes 4mg Take 4 mg Uni vers (CARDURA) 4 3-21 by mouth ity of mg tablet 20:00: daily. [place] [address] Medical Branch zolpidem 2018-0 Yes 10mg Take 10 mg Uni vers (AMBIEN) 10 3-21 by mouth ity of mg tablet 20:00: [place] needed Medical for Branch Insomnia. hydroxychlo 2017-0 Yes 200mg Take 200 U nivers roquine 3-21 mg by ity of (PLAQUENIL) 20:00: mouth [place] 200 mg 52 daily. Medical tablet Branch doxazosin 2017-0 Yes 4mg Take 4 mg Uni vers (CARDURA) 2 3-21 by mouth ity of mg tablet 20:00: daily. [place] [address] Medical Branch metoprolol 2018-0 Yes 100mg Take [...] mouth ity of mg tablet 20:00: daily. [place] [address] Medical Branch zolpidem 2018-0 Yes 10mg Take [...] mouth ity of mg tablet 20:00: daily. [place] [address] Medical Branch metoprolol 2018-0 Yes 100mg Take [...] mouth ity of mg tablet 20:00: daily. [place] [address] Medical Branch zolpidem 2018-0 Yes 10mg Take [...] mouth ity of mg tablet 20:00: daily. [place] [address] Medical Branch metoprolol 2018-0 Yes 100mg Take [...] mouth ity of 10 mg 20:00: daily. [place] [address] Medical Branch doxazosin 2018-0 Yes 4mg Take 4 mg Uni vers (CARDURA) 4 3-21 by mouth ity of mg tablet 20:00: daily. [place] [address] Medical Branch zolpidem 2018-0 Yes 10mg Take [...] mouth ity of mg tablet 20:00: daily. [place] [address] Medical Branch metoprolol 2018-0 Yes 100mg Take [...] mouth ity of 10 mg 20:00: daily. [place] [address] Medical Branch doxazosin 2018-0 Yes 4mg Take 4 mg Uni vers (CARDURA) 4 3-21 by mouth ity of mg tablet 20:00: daily. [place] 52 Medical Branch zolpidem 0 Yes 10mg Take 10 mg Uni vers (AMBIEN) 10 3-21 by mouth ity of mg tablet 20:00: [place] as needed Medical for Branch Insomnia. hydroxychlo Yes 200mg Take 200 U nivers roquine 3-21 mg by ity of (PLAQUENIL) 20:00: mouth [place] 200 mg 52 daily. Medical tablet Branch zolpidem Yes 10mg QD Take 10 mg Met hodi (AMBIEN) 10 6-[address] mg tablet 00:00: nightly as Ho spita 00 needed for l sleep. zolpidem Yes 10mg QD Take 10 mg Met hodi (AMBIEN) 10 6-[address] mg tablet 00:00: nightly as Ho spita 00 needed for l sleep. mycophenola Yes 1000mg Q.5D Take 1,000 Methodi te 5-[address] (CELLCEPT) 00:00: mouth 2 Hosp [facility]il[facility] 500 mg 00 (two) l tablet times a day. mycophenola 2017 Yes 1000mg Q.5D Take 1,000 Methodi te 5-[address] (CELLCEPT) 00:00: mouth 2 Hosp liliana 500 mg 00 (two) l tablet times a day. HYDROcodone Yes 1{tbl} Take 1 Un [place] -acetaminop [...] as needed for Pain (scale 7-10). HYDROcodone 2016-0 Yes 1{tbl} Take 1 Un [place] -acetaminop 9-24 tablet by ity of hen (NORCO) 00:00: mouth [place] 10-325 mg 00 every 6 Medical tablet (six) Branch hours as needed for Pain (scale 7-10). HYDROcodone 2016-0 Yes 1{tbl} Take 1 Un [place] -acetaminop 9-24 tablet by ity of hen (NORCO) 00:00: mouth [place] 10-325 mg 00 every 6 Medical tablet (six) Branch hours as needed for Pain (scale 7-10). HYDROcodone 2016-0 Yes 1{tbl} Take 1 Un [...] to TID depending on blood pressure cloniDINE 0 Yes .45mg Take 1.5 Uni vers (CATAPRES) [...] 00 (three) Medical times Branch daily. hydralAZINE Yes 100mg Take 1 Uni vers (APRESOLINE 9-23 tablet by ity of ) 100 mg 00:00: mouth [place] tablet 00 every 8 Medical (eight) Branch hours. Indication s: Up to TID depending on blood pressure cloniDINE Yes .45mg Take 1.5 Uni vers (CATAPRES) 9-23 tablets by ity of 0.3 mg 00:00: mouth 3 [place] tablet 00 (three) Medical times Branch daily. tiZANidine Yes TK 1 T PO Un aaliyah (ZANAFLEX) 8-22 QHS. ity of 2 mg tablet 00:00: [facility] Branch ZOSALINAS ER Yes TK ONE C Uni vers 10 mg CR12 8-22 PO Q 12 H ity of 00:00: PRN. Medical Branch tiZANidine Yes TK 1 T PO Un [place] (ZANAFLEX) 8-22 QHS. ity of 2 mg tablet 00:00: Medical Branch ZOSALINAS ER Yes TK ONE C Uni vers 10 mg CR12 8-22 PO Q 12 H ity of 00:00: PRN. Medical Branch tiZANidine Yes TK 1 T PO Un [place] (ZANAFLEX) 8-22 QHS. ity of 2 mg tablet 00:00: Medical Branch ZOHYDRO ER Yes TK ONE C Uni vers 10 mg CR12 8-22 PO Q 12 H ity of 00:00: PRN. Medical Branch tiZANidine Yes TK 1 T PO Un [place] (ZANAFLEX) 8-22 QHS. ity of 2 mg tablet 00:00: Medical Branch ZOSALINAS ER Yes TK ONE C Uni vers 10 mg CR12 8-22 PO Q 12 H ity of 00:00: PRN. Medical Branch tiZANidine Yes TK 1 T PO Un [place] (ZANAFLEX) 8-22 QHS. ity of 2 mg tablet 00:00: Medical Branch ZOHYDRO ER Yes TK ONE C Uni vers 10 mg CR12 8-22 PO Q 12 H ity of 00:00: PRN. Medical Branch furosemide Yes TK 1 T PO Un [place] (LASIX) 80 6-16 BID. ity of mg tablet 00:00: Medical Branch furosemide Yes TK 1 T PO Un [place] (LASIX) 80 6-16 BID. ity of mg tablet 00:00: Medical Branch furosemide Yes TK 1 T PO Un [place] (LASIX) 80 6-16 BID. ity of mg tablet 00:00: Medical Branch furosemide Yes TK 1 T PO Un [place] (LASIX) 80 6-16 BID. ity of mg tablet 00:00: Medical Branch furosemide Yes TK 1 T PO Un [place] (LASIX) 80 6-16 BID. ity of mg tablet 00:00: Medical Branch ONETOUCH Yes FPD Univers ULTRA2 Kit 6-13 ity of 00:00: [place] [facility] ONETOUCH Yes FPD Univers ULTRA2 Kit 6-13 ity of 00:00: Medical Branch ONETOUCH Yes FPD Univers ULTRA2 Kit 6-13 ity of 00:00: Medical Branch ONETOUCH Yes FPD Univers ULTRA2 Kit 6-13 ity of 00:00: Medical Branch ONETOUCH Yes FPD Univers ULTRA2 Kit 6-13 ity of 00:00: Medical Branch ONE TOUCH 0 Yes U TID. Univer s DELICA 33 6-12 ity of gauge Misc 00:00: Medical Branch ONE TOUCH 0 Yes U TID. Univer s DELICA 33 6-12 ity of gauge Misc 00:00: Medical Branch ONE TOUCH 2015-0 Yes U TID. Univer s DELICA 33 6-12 ity of gauge Misc 00:00: Medical Branch ONE TOUCH 0 Yes U TID. Univer s DELICA 33 [...] Medical tablet hours as Branch needed. mycophenola 2015-0 Yes Univer s te mofetil 4-07 ity of (CELLCEPT) 00:00: [place] 500 mg 00 Medical tablet Branch mycophenola 2016-0 Yes Univer s te mofetil 4-07 ity of (CELLCEPT) 00:00: [place] 500 mg 00 Medical tablet Branch mycophenola 2016-0 Yes Univer s te mofetil 4-07 ity of (CELLCEPT) 00:00: [place] 500 mg 00 Medical tablet Branch mycophenola 2015-0 Yes Univer s te mofetil 4-07 ity [...] needed for Nausea and Vomiting (N/V). ondansetron Yes 4mg Take 4 mg U nivers (ZOFRAN-ODT 3-28 by mouth ity of ) 4 mg 00:00: every 8 [place] disintegrat 00 (eight) Medic al ing tablet hours as Branc h needed for Nausea and Vomiting (N/V). ONETOUCH Yes Univers ULTRA TEST 2-21 ity of strip 00:00: [place] 00 [facility] ONETOUCH Yes Univers ULTRA TEST 2-21 ity of strip 00:00: [place] 00 [facility] ONETOUCH Yes Univers ULTRA TEST 2-21 ity of strip 00:00: [place] 00 [facility] ONETOUCH Yes Univers ULTRA TEST 2-21 ity of strip 00:00: [place] 00 [facility] ONETOUCH Yes Univers ULTRA TEST 2-21 ity of strip 00:00: [place] 00 [facility] amLODIPine 2014-08 Yes 10mg Take [address] (NORVASC) 2-11 by mouth. [facility] 10 MG 00:00: Medical tablet 00 [place] amLODIPine 2014-08 Yes 10mg Take [address] (NORVASC) 2-11 by mouth. [facility] 10 MG 00:00: Medical tablet 00 [place] amLODIPine 2014-08 Yes 10mg Take [address] (NORVASC) 2-11 by mouth. [facility] 10 MG 00:00: Medical tablet 00 [place] cloNIDine 2014-08 Yes .3mg Q.[id number] Take 0.[address] [facility] [address] HCl 1-11 [id number] mg by [facility] (CATAPRES) 00:00: 3D mouth 3 Medi valentin 0.3 MG 00 (three) [place] tablet times daily . furosemide 2014-08 Yes 80mg Take [address] (LASIX) 40 1-11 by mouth . Jose es MG tablet 00:00: Medical 00 [place] hydrALAZINE 2014-08 Yes 50mg Q.[id number] Take [address] (APRESOLINE 1-11 [id number] by mouth 3 [facility]ukes ) 50 MG 00:00: 3D (three) Medical tablet 00 times Center daily. metoprolol 2014-08 Yes 100mg Q.5D Take [address] (LOPRESSOR) 1-11 mg by [facility] 100 MG 00:00: mouth 2 Medical tablet 00 (two) Center times daily. cloNIDine 2014-08 Yes .3mg Q.[id number] Take 0.[address] HCl 1-11 [id number] mg by [facility]ukes (CATAPRES) 00:00: 3D mouth 3 Medi valentin 0.3 MG 00 (three) Center tablet times daily . furosemide 2014-08 Yes 80mg Take [address] (LASIX) 40 1-11 by mouth . Jose es MG tablet 00:00: Medical 00 [place] hydrALAZINE 2014-08 Yes 50mg Q.[id number] Take [address] (APRESOLINE 1-11 [id number] by mouth 3 [facility] ) 50 MG 00:00: 3D (three) Medical tablet 00 times Center daily. metoprolol 2014-08 Yes 100mg Q.5D Take [address] (LOPRESSOR) 1-11 mg by [facility] 100 MG 00:00: mouth 2 Medical tablet 00 (two) Center times daily. cloNIDine 2014-08 Yes .3mg Q.[id number] Take 0.[address] HCl 1-11 [id number] mg by [facility]ukes (CATAPRES) 00:00: 3D mouth 3 Medi valentin 0.3 MG 00 (three) Center tablet times daily . furosemide 2014-08 Yes 80mg Take [address] (LASIX) 40 1-11 by mouth . Jose es MG tablet 00:00: Medical 00 [place] hydrALAZINE 2014-08 Yes 50mg Q.[id number] Take [address] (APRESOLINE 1-11 [id number] by mouth 3 [facility] ) 50 MG 00:00: 3D (three) Medical tablet 00 times Center daily. metoprolol 2014-08 Yes 100mg Q.5D Take [address] (LOPRESSOR) 1-11 mg by [facility] 100 MG 00:00: mouth 2 Medical tablet 00 (two) Center times daily. Immunizations Ordered Filled Immunization Date Status Comments [facility] e Immunization Name Name SARS-COV-2 COVID-19 2020-11-15 [facility]:00 [facility] [facility] SARS-COV-2 COVID-19 2020-11-15 Completed Unive rsity of PFIZER VACCINE 00:00:00 [facility] [facility] SARS-COV-2 COVID-19 2020-10-25 Completed Unive rsity of PFIZER VACCINE 00:00:00 [facility] [facility] SARS-COV-2 COVID-19 2020-10-25 Completed Unive rsity of PFIZER VACCINE 00:00:00 [facility] [facility] SARS-COV-2 COVID-19 2020-10-25 Completed Unive rsity of PFIZER VACCINE 00:00:00 [facility] [facility] SARS-COV-2 COVID-19 2020-10-25 Completed Unive rsity of PFIZER VACCINE 00:00:00 [facility] [facility] SARS-COV-2 COVID-19 2020-10-25 Completed Unive rsity of PFIZER VACCINE 00:00:00 [facility] [facility] Vital Signs Vital Name Observation Time Observation Value Comments Source Systolic blood 2021-03-27 08:00:00 182 mm[Hg] Univer sity of pressure [facility] [place] [facility] Diastolic blood 2021-03-27 08:00:00 101 mm[Hg] Unive rsity of pressure [facility] [place] [facility] Heart rate 2021-03-27 08:00:00 72 /min [facility] Respiratory rate 2021-03-27 08:00:00 10 /min [facility] Oxygen saturation in 2021-03-27 08:00:00 100 /min [facility] Arterial blood by [facility] Pulse oximetry [place] Body temperature 2021-03-27 04:49:00 37.28 [facility] height 2021-03-27 04:49:00 157.5 cm [facility] Body weight 2021-03-27 04:49:00 83.462 kg [facility] BMI 2021-03-27 04:49:00 33.65 kg/m2 [facility] Systolic blood 2021-01-15 15:01:00 140 mm[Hg] Univer sity of pressure [facility] [place] [facility] Diastolic blood 2021-01-15 15:01:00 84 mm[Hg] Unive rsity of pressure [facility] [place] [facility] Heart rate 2021-01-15 15:01:00 76 /min [facility] [place] [facility] Body temperature 2021-01-15 15:01:00 36.28 Chhaya Univ ersity of [place] [facility] Respiratory rate 2021-01-15 15:01:00 18 /min Univ ersity of [place] [facility] Body height 2021-01-15 15:01:00 157.5 cm [facility] [place] [facility] Body weight 2021-01-15 15:01:00 90.719 kg [facility] [place] [facility] BMI 2021-01-15 15:01:00 36.58 kg/m2 [facility] [place] [facility] Oxygen saturation in 2021-01-15 15:01:00 99 /min University of Arterial blood by [facility] Pulse oximetry Branch Systolic blood 2020-11-12 19:02:00 155 mm[Hg] Univer sity of pressure [place] [facility] Diastolic blood 2020-11-12 19:02:00 95 mm[Hg] Unive rsity of pressure [place] [facility] Heart rate 2020-11-12 19:01:00 79 /min [facility] [place] [facility] Respiratory rate 2020-11-12 19:01:00 19 /min Univ ersity of [place] [facility] Body height 2020-11-12 19:01:00 167.6 cm [facility] [place] [facility] Body weight 2020-11-12 19:01:00 86.002 kg [facility] [place] [facility] BMI 2020-11-12 19:01:00 30.60 kg/m2 [facility] [place] [facility] Systolic blood 2020-11-12 19:02:00 155 mm[Hg] Univer sity of pressure [place] [facility] Diastolic blood 2020-11-12 19:02:00 95 mm[Hg] Unive rsity of pressure [place] [facility] Heart rate 2020-11-12 19:01:00 79 /min [facility] [place] [facility] Respiratory rate 2020-11-12 19:01:00 19 /min Univ ersity of [place] [facility] Body height 2020-11-12 19:01:00 167.6 cm [facility] [place] [facility] Body weight 2020-11-12 19:01:00 86.002 kg [facility] [place] [facility] BMI 2020-11-12 19:01:00 30.60 kg/m2 [facility] Medical Branch Procedures Procedure Date / Time Performed Performing Clinician Sour e NOTICE OF PRIVACY 2021-03-27 04:39:35 Doctor Unassigned, No Univ [facility] Name Medical Branch CONSENT/REFUSAL FOR 2021-03-27 04:37:48 [facility] Branch TREATMENT CONSENT/REFUSAL FOR 2021-01-15 14:58:04 [facility] Branch TREATMENT ASSIGNMENT OF BENEFITS 2020-11-12 18:39:16 Doctor Unassigned, No [facility] Plan of Care Planned Activity Planned Date Details Comments Source Future Scheduled 2022-07-03 HEPATITIS B VACCINES [facility] Test 00:15:46 (1 of 3 - 3-dose series) [code = HEPATITIS B VACCINES (1 of 3 - 3-dose series)] Future Scheduled 2022-07-03 COVID-19 VACCINE (#1) [facility] Test 00:15:46 [code = COVID-19 VACCINE (#1)] Future Scheduled 2022-07-03 Pneumococcal Vaccine: [facility] Test 00:15:46 Pediatrics (0 to 5 Years) and At-Risk Patients (6 to 64 Years) (1 - PCV) [code = Pneumococcal Vaccine: Pediatrics (0 to 5 Years) and At-Risk Patients (6 to 64 Years) (1 - PCV)] Future Scheduled 2022-07-03 DIABETES: RETINAL EYE [facility] Test 00:15:46 EXAM [code = DIABETES: RETINAL EYE EXAM] Future Scheduled 2022-07-03 DIABETIC FOOT EXAM [facility] Test 00:15:46 [code = DIABETIC FOOT EXAM] Future Scheduled 2022-07-03 Hepatitis C screening [facility] Test 00:15:46 (procedure) [code = [id number]] Future Scheduled 2022-07-03 SHINGLES VACCINES (1 [facility] [place] [facility] 00:15:46 of 2) [code = SHINGLES VACCINES (1 of 2)] Future Scheduled 2022-07-03 Screening for [facility] Test 00:15:46 malignant neoplasm of cervix (procedure) [code = 818241598] Future Scheduled 2022-07-03 BRE[facility] Test 00:15:46 SCREENING [code = BREAST CANCER SCREENING] Future Scheduled 2022-07-03 COLONOSCOPY SCREENING [facility] Test 00:15:46 [code = COLONOSCOPY SCREENING] Future Scheduled 2022-07-03 [facility] 00:15:46 [code = INFLUENZA VACCINE] Future Scheduled 2021-04-[address] [address] [...] [facility]c [facility]00 [facility] (procedure) [code = 10714911] Future Scheduled 2019-01-[address] [facility] Test 00:00:00 [facility] (procedure) [code = 07225722] Future Scheduled 2018-08-[address] [facility] Test 00:00:00 (procedure) [code = Medical Center 34540655] Future Scheduled [address] [facility] Test 00:[facility]00 (procedure) [code = [facility] Center 50082735] Future Scheduled 2014-06-[address] [facility] cervix (procedure) [code = 880081406] Future Scheduled [address] [facility] 00:[facility]00 [facility] cervix (procedure) [code = 788913731] Future Scheduled 1989 DTAP/TDAP/TD VACCINES CH I [...] 00:00:00 examination Medical Center (regime/therapy) [code = 999388317] Future Scheduled 1980 Urine screening for [facility] Test 00:00:00 protein (procedure) [facility] [code = 395252202] Future Scheduled 1980 DIABETIC EYE EXAM [facility] Test 00:00:00 [code = DIABETIC EYE [facility] EXAM] Future Scheduled [address] [facility] 00[facility] examination [facility] (regime/therapy) [code = 182575724] Future Scheduled 1980 Urine screening for [facility] Test 00:00:00 protein (procedure) [facility] [code = 202945245] Future Scheduled [address] [facility] Test 00:00:00 [facility] breast (procedure) [code = 029713059] Future Scheduled [address] [facility] Test 00:00:00 [facility] (procedure) [code = 623188053] Future Scheduled [address] 00:[facility]:00 [facility] breast (procedure) [code = 350288825] Future Scheduled [address] [facility] Test 00:00:00 malignant ne[facility] of [facility] colon (procedure) [code = 546706447] Future Scheduled DIABETES: RETINAL EYE [facility] EXAM [code = DIABETES: RETINAL EYE EXAM] Future Scheduled [facility] Test [code = DIABETIC FOOT EXAM] Future Scheduled COVID-19 VACCINE (1) [facility] [code = COVID-19 VACCINE (1)] Future Scheduled Hepatitis C screening [facility] (procedure) [code = 782533451] Future Scheduled [facility] Test malignant neoplasm of cervix (procedure) [code = 613525185] Future Scheduled BREAST CANCER [facility] Test SCREENING [code = BREAST CANCER [...] Date/Time Type Type Clinicians Facility Department ID 2022-05-26 Outpatient daniel [facility] [id number] [facility] 15:31:14 e [id number] [facility] 2021-06-29 Emergency [facility] [id number] Univers 11:53:58 ity of [facility] 2021-06-28 Emergency [facility] [id number] Univers 20:14:34 ity of [facility] 2021-03-26 2021-03-27 Emergency [facility] [id number] Univers 23:56:00 03:30:00 Naga P[place]o [place] [id number] ity of [place] 4.2.7.2.686 [facility] [phone] [address] 2021-01-15 2021-01-15 Emergency [facility] [id number] Univers 10:03:00 11:43:00 Jeanna Coronaton [id number] i ty [facility] 4.2.7.2.686 [facility] [id number] [address] 2020-12-11 2020-12-11 Outpatient Sea GRAF [facility] [id number] Univers 10:00:00 10:00:[address] [facility] 2020-11-15 2020-11-15 Outpatient [facility] [id number] Univers 13:05:00 13:05:[address] [facility] 2020-11-12 2020-11-12 [facility] [id number] Univers 13:40:03 14:10:03 Visit Ligia Coronaton [id number] ity [facility] 4.2.7.2.686 [facility] Professio [id number] [address] 2020-11-12 2020-11-12 Office [facility] [id number] 13:40:03 14:10:03 Visit Ligia T [place] [id number] [place] 4.2.7.2.686 Professio [id number] nal 085 Building 2020-11-12 2020-11-12 Outpatient R TEO PEDROWVMorgan [facility] [id number] Univers 14:00:00 14:00:[address] L[address]IA [address] ity [facility] 2020-11-12 2020-11-12 Orders Doctor GRACY [id number] Univers 00:00:00 00:00:00 Only Unassigned, KATIE [id number] ity of [place] [facility] 4.2.7.2.686 Juan C as [id number] [place] [address] [address] 2020-10-25 2020-10-25 Outpatient [facility] [id number] Univers 12:45:00 12:45:00 [facility] Results Test Description Test Time Test Comments Results Result Comments Source BLOOD CULTURE 2018-08-02 17:01:00 Test Item Value Reference Range Interpretation Comme nts CULTURE (BEAKER) (test code = 1095) No growth in 5 days LUPUS ANTICOAGULANT SCREEN WITH REFLEX TO [id number] 16:08:00 Test Item Value Reference Range Interpretation Comments DRVV SCREEN RATIO 1.55 <1.20 H (BEAKER) (test code = 2707) DRVV CONFIRM RATIO 0.93 (test code = 2709) DRVV NORMALIZED RATIO 1.67 <1.20 H (test code = 2710) DRVV INTERPRETATION Positive screen for (BEAKER) (test code = Lupus Anticoagulant 0194) with hexagonal phospholipid confirmation. Suggest repeat testing in 12 weeks and when patient not receiving anticoagulant therapy. PROTIME (BEAKER) (test 15.0 seconds 11.7-14.7 H code = 759) INR (BEAKER) (test code 1.2 <=5.9 = 370) PARTIAL THROMBOPLASTIN 36.1 seconds 22.5-36.0 H TIME (BEAKER) (test code = 760) PTT-LA (BEAKER) (test 45.2 32.0-41.8 H code = [id number]) [id number] Cindy Chavira MD (BEAKER) (test code = (electronic signature) 8020) HEXAGONAL [id number] 14:08:00 Test Item Value Reference Range Interpretation Comments HEXAGONAL PHOSPHOLIPID (BEAKER) Positive (test code = 1790) BLOOD [id number] 10:01:00 Test Item Value Reference Range Interpretation Comments CULTURE (BEAKER) (test No growth in 5 days code = 1095) DOUBLE-STRANDED DNA (DSDNA) [id number] 05:52:00 Test Item Value Reference Range Interpretation Comments ANTI-DNA DS (BEAKER) (test code = Negative 1055) CARDIOLIPIN ANTIBODIES, IGG AND [id number] 15:01:00 Test Item Value Reference Range Interpretation Comments ANTICARDIOLIPIN IGG ANTIBODY (BEAKER) < GPL <20.0 (test code = 712) ANTICARDIOLIPIN IGM ANTIBODY (BEAKER) 2.1 MPL <20.0 (test code = 713) Anticardiolipin IgG Result Interpretation: <20.0 GPL Normal>/= 20.0 GPL PositiveAnticardiolipin IgM Result Interpretation: <20.0 MPL Normal>/= 20.0 MPL PositiveCALCIUM, [id number] 05:12:00 Test Item Value Reference Range Interpretation Comments CALCIUM IONIZED (BEAKER) (test 1.01 mmol/L 1.12-1.27 L code = 698) PH, BLOOD (BEAKER) (test code = 7.45 1810) POCT-GLUCOSE [id number] 21:30:00 Test Item Value Reference Range Interpretation Comments POC-GLUCOSE METER 116 mg/dL 70-110 H TESTED AT [place] [address] ([facility]) (test code = [place] 1538) [address] POCT-GLUCOSE [id number] 17:32:00 Test Item Value Reference Range Interpretation Comments POC-GLUCOSE METER 125 mg/dL 70-110 H TESTED AT [place] [address] ([facility]) (test code = [place] 1538) [address] POCT-GLUCOSE [id number] 11:28:00 Test Item Value Reference Range Interpretation Comments POC-GLUCOSE METER 115 mg/dL 70-110 H TESTED AT [place] [address] ([facility]) (test code = JOB Ose[place] 1538) [address] POCT-GLUCOSE [id number] 07:41:00 Test Item Value Reference Range Interpretation Comments POC-GLUCOSE METER 108 mg/dL 70-110 TESTED AT [facility] 6720 (BEAKER) (test code = [place] 1538) [address] [id number] 07:06:00 Test Item Value Reference Range Interpretation Comments MAGNESIUM (BEAKER) 1.8 mg/dL 1.6-2.6 Specimen slightly (test code = 627) hemolyzed [id number] 07:06:00 Test Item Value Reference Range Interpretation Comments PHOSPHORUS (BEAKER) 2.4 mg/dL 2.3-4.7 Specimen slightly (test code = 604) hemolyzed COMPREHENSIVE METABOLIC [id number] 07:06:00 Test Item Value Reference Range Interpretation [...] APPLICABLE FOR DIALYSIS PATIEN TS. HEPATIC FUNCTION [id number] 07:06:00 Test Item Value Reference Range Interpretation [...] slightly (test code = 347) hemolyzed CALCIUM, [id number] 06:42:00 Test Item Value Reference Range Interpretation Comments CALCIUM IONIZED (BEAKER) (test 1.16 mmol/L 1.12-1.27 code = 698) PH, BLOOD (BEAKER) (test code = 7.42 1810) CBC W/PLT COUNT & AUTO [id number] 05:10:00 Test Item Value Reference Range Interpretation [...] PERCENT (BEAKER) (test code = 2801) POCT-GLUCOSE [id number] 23:12:00 Test Item Value Reference Range Interpretation Comments POC-GLUCOSE METER 95 mg/dL 70-110 TESTED AT [place] [address] ([facility]) (test code = [facility] Sea [facility] [address] 1538) POCT-GLUCOSE [id number] 18:51:00 Test Item Value Reference Range Interpretation Comments POC-GLUCOSE METER 118 mg/dL 70-110 H TESTED AT [place] [id number] ([facility]) (test code = [facility] 1538) [address] HEMOGLOBIN AND [id number] 16:28:00 Test Item Value Reference Range Interpretation Comments HEMOGLOBIN ([facility]) (test code = 8.7 GM/DL 11.2-15.7 L 410) HEMATOCRIT ([facility]) (test code = 27.8 % 34.1-44.9 L 411) POCT-GLUCOSE [id number] 15:00:00 Test Item Value Reference Range Interpretation Comments POC-GLUCOSE METER 140 mg/dL 70-110 H TESTED AT [place] [address] ([facility]) (test code = [place]OB [place] [address]) [address] POCT-GLUCOSE [id number] 14:46:00 Test Item Value Reference Range Interpretation Comments POC-GLUCOSE METER 44 mg/dL 70-110 L Notified Sea Amos MD/TESTED AT ([facility]) (test code = [address] 1538) [facility] [address] POCT-GLUCOSE [id number] 13:05:00 Test Item Value Reference Range Interpretation Comments POC-GLUCOSE METER 87 mg/dL 70-110 TESTED AT [place] [address] ([facility]) (test code = JOB Osei [facility] [address] 1538) POCT-GLUCOSE [id number] 11:57:00 Test Item Value Reference Range Interpretation Comments POC-GLUCOSE METER 65 mg/dL 70-110 L Notified Sea Amos MD/TESTED AT ([facility]) (test code = [address] 1538) [facility] [address] VANCOMYCIN LEVEL, [id number] 10:58:00 Test Item Value Reference Range Interpretation Comments VANCOMYCIN TROUGH ([facility]) (test 14.2 ug/mL 10.0-20.0 code = 522) RAD, ABDOMEN/KUB, 1 VIEW [id number] 09:41:00Reason for exam:->abdominal painFINAL REPORT AP abdomen, two images HISTORY: Abdominal pain COMPARISON: 07/28/2013 IMPRESSION:Grossly nonobstructive bowel gas pattern. Intact skeleton. Signed: Vikas Guillen MDReport Verified Date/Time: 07/30/2018 09:41:59 Reading Location: [address] Consult Reading Room -GLUCOSE [id number] 07:59:00 Test Item Value Reference Range Interpretation Comments POC-GLUCOSE METER 87 mg/dL 70-110 TESTED AT [facility] 6720 (BEAKER) (test code = [place] [address] 1538) CALCIUM, [id number] 06:53:00 Test Item Value Reference Range Interpretation Comments CALCIUM IONIZED (BEAKER) (test 1.12 mmol/L 1.12-1.27 code = 698) PH, BLOOD (BEAKER) (test code = 7.44 1810) [id number] 06:38:00 Test Item Value Reference Range Interpretation Comments PHOSPHORUS (BEAKER) (test code = 2.7 mg/dL 2.3-4.7 604) [id number] 06:38:00 Test Item Value Reference Range Interpretation Comments MAGNESIUM (BEAKER) (test code = 1.6 mg/dL 1.6-2.6 627) HEPATIC FUNCTION [id number] 06:38:00 Test Item Value Reference Range Interpretation [...] = 9 U/L 6-55 347) COMPREHENSIVE METABOLIC [id number] 06:38:00 Test Item Value Reference Range Interpretation [...] PATIEN TS. CBC W/PLT COUNT & AUTO [id number] 06:11:00 Test Item Value Reference Range Interpretation [...] PERCENT (BEAKER) (test code = 2801) POCT-GLUCOSE [id number] 21:38:00 Test Item Value Reference Range Interpretation Comments POC-GLUCOSE METER 96 mg/dL 70-110 TESTED AT [place] [address] ([facility]) (test code = [facility] [address]38) POCT-GLUCOSE [id number] 18:19:00 Test Item Value Reference Range Interpretation Comments POC-GLUCOSE METER 121 mg/dL 70-110 H TESTED AT [place] [id number] ([facility]) (test code = [facility] 1538) [address] T4, [id number] 12:35:00 Test Item Value Reference Range Interpretation Comments FREE T4 ([facility]) (test code = 655) 1.25 ng/dL 0.70-1.48 POCT-GLUCOSE [id number] 12:27:00 Test Item Value Reference Range Interpretation Comments POC-GLUCOSE METER 127 mg/dL 70-110 H TESTED AT [facility] 6720 (BEAKER) (test code = [place] 1538) [address] TSH/FREE T4 IF [id number] 12:07:00 Test Item Value Reference Range Interpretation Comments THYROID STIMULATING HORMONE 0.25 uIU/mL 0.35-4.94 L (BEAKER) (test code = 772) [id number] 12:07:00 Test Item Value Reference Range Interpretation Comments THYROID STIMULATING HORMONE 0.25 uIU/mL 0.35-4.94 L (BEAKER) (test code = 772) LACTIC ACID, VENOUS, WHOLE [id number] 11:35:00 Test Item Value Reference Range Interpretation Comments LACTATE BLOOD VENOUS 0.6 mmol/L 0.5-2.2 Specime n slightly (2) (BEAKER) (test hemolyzed code = 2872) VANCOMYCIN LEVEL, [id number] 07:11:00 Test Item Value Reference Range Interpretation Comments VANCOMYCIN RANDOM (BEAKER) (test 17.9 ug/mL code = 523) Reference Range: No [id number] 07:09:00 Test Item Value Reference Range Interpretation Comments PHOSPHORUS (BEAKER) (test code = 3.9 mg/dL 2.3-4.7 604) [id number] 07:09:00 Test Item Value Reference Range Interpretation Comments MAGNESIUM (BEAKER) (test code = 1.7 mg/dL 1.6-2.6 627) BASIC METABOLIC [id number] 07:09:00 Test Item Value Reference Range Interpretation [...] APPLICABLE FOR DIALYSIS PATIEN TS. HEPATIC FUNCTION [id number] 07:09:00 Test Item Value Reference Range Interpretation [...] code = 10 U/L 6-55 347) TROPONIN [id number] 06:54:00 Test Item Value Reference Range Interpretation Comments TROPONIN I (BEAKER) (test code = 0.08 ng/mL 0.00-0.03 H 397) LACTIC ACID, VENOUS, WHOLE [id number] 06:45:00 Test Item Value Reference Range Interpretation Comments LACTATE BLOOD VENOUS 0.8 mmol/L 0.5-2.2 Specime n slightly (2) (BEAKER) (test hemolyzed code = 3416) CBC W/PLT COUNT & AUTO [id number] 06:00:00 Test Item Value Reference Range Interpretation [...] PERCENT (BEAKER) (test code = 2801) CALCIUM, [id number] 05:58:00 Test Item Value Reference Range Interpretation Comments CALCIUM IONIZED (BEAKER) (test 1.12 mmol/L 1.12-1.27 code = 698) PH, BLOOD (BEAKER) (test code = 7.39 1810) EOSINOPHIL SMEAR, [id number] 20:17:00 Test Item Value Reference Range Interpretation Comments EOSINOPHIL SMEAR, URINE (BEAKER) No EOS seen No EOS seen (test code = 1851) BASIC METABOLIC [id number] 20:01:00 Test Item Value Reference Range Interpretation [...] DIALYSIS PATIEN TS. LACTIC ACID, VENOUS, WHOLE [id number] 19:59:00 Test Item Value Reference Range Interpretation Comments LACTATE BLOOD VENOUS 0.8 mmol/L 0.5-2.2 Specime n slightly (2) (BEAKER) (test hemolyzed code = 2872) CT, BRAIN/STROKE [id number] 19:59:00Stroke Protocol. Phone/Page MD for reporting.Reason for [...] Fink Verified Date/Time: 07/28/2018 19:59:01 Reading Location: [facility] Radiology Reading Room [id number] 19:51:00 Test Item Value Reference Range Interpretation Comments PARTIAL THROMBOPLASTIN TIME 33.1 seconds 22.5-36.0 (BEAKER) (test code = 760) PROTHROMBIN TIME/[id number] 19:50:00 Test Item Value Reference Range Interpretation Comments PROTIME (BEAKER) (test code = 15.6 seconds 11.7-14.7 H 759) INR (BEAKER) (test code = 370) 1.2 <=5.9 RECOMMENDED COUMADIN/WARFARIN INR THERAPY RANGESSTANDARD DOSE: 2.0 - 3.0 Includes: PROPHYLAXIS for venous thrombosis, systemic embolization; TREATMENT for venous thrombosis and/or pulmonary embolus.HIGH RISK: Target INR is 2.5-3.5 for patients with mechanical heart valves.HEMOGLOBIN AND [id number] 19:41:00 Test Item Value Reference Range Interpretation Comments HEMOGLOBIN (BEAKER) (test code = 11.3 GM/DL 11.2-15.7 410) HEMATOCRIT (BEAKER) (test code = 35.4 % 34.1-44.9 411) CBC W/PLT COUNT & AUTO [id number] 19:41:00 Test Item Value Reference Range Interpretation [...] PERCENT (BEAKER) (test code = 2801) TROPONIN [id number] 19:26:00 Test Item Value Reference Range Interpretation Comments TROPONIN I (BEAKER) (test code = 0.11 ng/mL 0.00-0.03 H 397) PROTEIN, RANDOM [id number] 19:19:00 Test Item Value Reference Range Interpretation Comments PROTEIN, URINE (BEAKER) (test code 325 mg/dL 0-14 H = 1569) POCT-GLUCOSE [id number] 19:00:00 Test Item Value Reference Range Interpretation Comments POC-GLUCOSE METER 158 mg/dL 70-110 H TESTED AT [facility] 6720 (BEAKER) (test code = [place] 1538) [address] CREATININE, RANDOM [id number] 18:52:00 Test Item Value Reference Range Interpretation Comments CREATININE URINE (BEAKER) (test 95.8 mg/dL code = 375) Reference Range: No NormalsSODIUM, RANDOM [id number] 18:52:00 Test Item Value Reference Range Interpretation Comments SODIUM URINE (BEAKER) (test code = 28 meq/L 243) Reference Range: No NormalsURINALYSIS W/ [id number] 18:02:00 Test Item Value Reference Range Interpretation [...] code Urine, Clean Catch = 2795) POCT-GLUCOSE [id number] 17:21:00 Test Item Value Reference Range Interpretation Comments POC-GLUCOSE METER 137 mg/dL 70-110 H TESTED AT [facility] 6720 (BEAKER) (test code = [place] 1538) [address] BASIC METABOLIC [id number] 17:14:00 Test Item Value Reference Range Interpretation [...] APPLICABLE FOR DIALYSIS PATIEN TS. Call results [id number] ACID, VENOUS, WHOLE [id number] 14:19:00 Test Item Value Reference Range Interpretation Comments LACTATE BLOOD VENOUS (2) (BEAKER) 1.1 mmol/L 0.5-2.2 (test code = 2872) THROMBIN [id number] 13:02:00 Test Item Value Reference Range Interpretation Comments THROMBIN TIME (BEAKER) (test code = 17.8 secs 13.8-20.0 550) [id number] 13:01:00 Test Item Value Reference Range Interpretation Comments PROCALCITONIN (BEAKER) (test code 0.09 ng/mL <0.05 H = 3036) SEPSIS RISK (ng/mL)Low: 0.05-0.50Intermediate: 0.51-2.00High: >=2.011:1 MIXING STUDY, [id number] 12:38:00 Test Item Value Reference Range Interpretation Comments PROTIME (BEAKER) (test code = 15.0 seconds 11.7-14.7 H 759) PARTIAL THROMBOPLASTIN TIME 36.1 seconds 22.5-36.0 H (BEAKER) (test code = 760) PT 1/1 MIX (BEAKER) (test code = 14.4 SECS 11.7-14.7 1595) PTT 1/1 MIX (BEAKER) (test code 35.5 SECS 22.5-36.0 = 1596) TROPONIN [id number] 12:01:00 Test Item Value Reference Range Interpretation Comments TROPONIN I (BEAKER) (test code = 0.13 ng/mL 0.00-0.03 H 397) HCG, QUANTITATIVE, [id number] 11:58:00 Test Item Value Reference Range Interpretation Comments GONADOTROPIN, CHORIONIC (HCG) QUANT < mIU/mL 0-10 (BEAKER) (test code = 649) Non- Females: <10 mIU/mL Females: Gestation Age Reference Range(mIU/mL) 0.2-1 Week 5-50 1-2 Weeks 50-500 2-3 Weeks 100-5,000 3-4 Weeks 500-10,000 4-5 Weeks 1,000-50,000 5-6 Weeks 10,000-100,000 6-8 Weeks 15,000- 200,000 2-3 Months 10,000-100,[id number] 11:55:00 Test Item Value Reference Range Interpretation Comments LIPASE (BEAKER) (test code = 749) 31 U/L 8-78 [id number] 11:55:00 Test Item Value Reference Range Interpretation Comments AMYLASE (BEAKER) (test code = 349) 101 U/L 25-125 COMPREHENSIVE METABOLIC [id number] 11:55:00 Test Item Value Reference Range Interpretation [...] NOT APPLICABLE FOR DIALYSIS PATIEN TS. C-REACTIVE [id number] 11:55:00 Test Item Value Reference Range Interpretation Comments C-REACTIVE PROTEIN (BEAKER) (test 0.42 mg/dL 0.00-0.50 code = 676) LACTIC ACID, VENOUS, WHOLE [id number] 11:51:00 Test Item Value Reference Range Interpretation Comments LACTATE BLOOD VENOUS 1.5 mmol/L 0.5-2.2 Specime n slightly (2) (BEAKER) (test hemolyzed code = 1914) [id number] 11:44:00 Test Item Value Reference Range Interpretation Comments PARTIAL THROMBOPLASTIN TIME 35.4 seconds 22.5-36.0 (BEAKER) (test code = 903) CBC W/PLT COUNT & AUTO [id number] 11:30:00 Test Item Value Reference Range Interpretation [...] PERCENT (BEAKER) (test code = 2801) POCT-GLUCOSE [id number] 11:20:00 Test Item Value Reference Range Interpretation Comments POC-GLUCOSE METER 167 mg/dL 70-110 H TESTED AT [facility] 6720 (AMINAH) (test code = [place] 1538) [address] HEMOGLOBIN [id number] 11:15:00 Test Item Value Reference Range Interpretation Comments HEMOGLOBIN A1C (AMINAH) (test code = 5.6 % 4.3-6.1 368) PROTHROMBIN TIME/[id number] 08:24:00 Test Item Value Reference Range Interpretation Comments PROTIME (AMINAH) (test code = 15.3 seconds 11.7-14.7 H 759) INR (AMINAH) (test code = 370) 1.2 <=5.9 RECOMMENDED COUMADIN/WARFARIN INR THERAPY RANGESSTANDARD DOSE: 2.0 - 3.0 Includes: PROPHYLAXIS for venous thrombosis, systemic embolization; TREATMENT for venous thrombosis and/or pulmonary embolus.HIGH RISK: Target INR is 2.5-3.5 for patients with mechanical heart valves.RAD, ABDOMEN/KUB, 1 VIEW [id number] 08:13:00Reason for exam:->abdominal painFINAL REPORT INDICATION:Abdominal pain. [...] hip MRI is recommended. Signed: Lionel Ruiz [facility] Verified Date/Time: 07/28/2018 08:13:33 Reading Location: [facility] B1 C013X Ortho Consult Reading Room ONIN [id number] 08:11:00 Test Item Value Reference Range Interpretation Comments TROPONIN I (AMINAH) (test code = 0.05 ng/mL 0.00-0.03 H 397) RAD, CHEST, 1 VIEW, NON [id number] 08:10:00Reason for exam:->chest painShould this be performed at the bedside?->YesFINAL REPORT RAD, CHEST, 1 VIEW, NON DEPT INDICATION: chest pain COMPARISON: Prior day's exam FINDINGS: Portable frontal view of the chest. IMPRESSION: Support Lines: None. Lungs and pleura: Clear lungs. No effusion. No pneumothorax.Heart and mediastinum: Unremarkable contours.Additional findings: None. Signed: JR Maya Robert MDReport Verified Date/Time: 07/28/2018 08:10:51 Reading Location: [facility] Radiology Reading Room BASIC METABOLIC [id number] 08:08:00 Test Item Value Reference Range Interpretation [...] S NOT APPLICABLE FOR DIALYSIS PATIEN TS. [id number] 08:04:00 Test Item Value Reference Range Interpretation Comments LIPASE (BEAKER) (test code = 749) 12 U/L 8-78 HEPATIC FUNCTION [id number] 08:04:00 Test Item Value Reference Range Interpretation [...] (test code = 347) hemolyzed COMPLEMENT COMPONENT [id number] 08:03:00 Test Item Value Reference Range Interpretation Comments C4 COMPLEMENT (BEAKER) (test code = 25 mg/dL 15-57 394) COMPLEMENT COMPONENT [id number] 08:03:00 Test Item Value Reference Range Interpretation Comments C3 COMPLEMENT (BEAKER) (test code = 125 mg/dL 82-193 393) POCT-BLOOD GASES, [id number] 07:57:00 Test Item Value Reference Range Interpretation Comments TEMP, CELSIUS-POC 37.0 (BEAKER) (test code = 1834) FIO2-POC (BEAKER) TESTED AT [facility] 6720 (test code = 1835) [place] [address] PH, ARTERIAL-POC 7.416 7.350-7.450 (BEAKER) (test code [...] L ARTERIAL-POC (BEAKER) (test code = 1841) [id number] 07:57:00 Test Item Value Reference Range Interpretation Comments POC-SODIUM ([facility]) 146 meq/L 135-148 TESTED [place] [address] (test code = 1542) [facility] [address] [id number] 07:57:00 Test Item Value Reference Range Interpretation Comments POC-POTASSIUM 2.7 meq/L 3.6-5.5 L TESTED AT [place] [address] ([facility]) (test code [facility] [address] = 1540) [id number] 07:57:00 Test Item Value Reference Range Interpretation Comments POC-GLUCOSE ([facility]) 176 mg/dL 70-110 H TESTED AT [place] [address] (test code = 1855) [facility] [address] POCT-CALCIUM [id number] 07:57:00 Test Item Value Reference Range Interpretation Comments POC-CALCIUM IONIZED 1.15 mmol/L 1.12-1.27 TESTED [place] [address] ([facility]) (test code = [facility] 1536) [address] [id number] 07:57:00 Test Item Value Reference Range Interpretation Comments POC-HEMATOCRIT 38 % 36-45 TESTED AT [place] [address] ([facility]) (test code = [facility] [address] 1853) [id number] 07:57:00 Test Item Value Reference Range Interpretation Comments POC-HEMOGLOBIN 12.9 g/dL 12.0-15.0 TESTED AT [place] [address] ([facility]) (test code [facility] = 1856) [id number] AT [place] [address] [facility] [address] POCT-LACTIC ACID, [id number] 07:57:00 Test Item Value Reference Range Interpretation Comments POC-LACTIC ACID, 3.3 mmol/L 0.9-1.7 H TESTED AT [place] [address] [place] ([facility]) (test [facility] Sea [facility] code = 2805) [address] CBC W/PLT COUNT & AUTO [id number] 07:47:00 Test Item Value Reference Range Interpretation Comments WHITE BLOOD CELL COUNT ([facility]) 9.6 K/ L 3.5-10.5 (test [...]
[2022-07-03 01:25] LABS: Absolute Lymphocytes (CBC) 2.4 K/uL (0.7-4.9); Hematocrit 39.1 % (36.0-45.0); Lymphocytes % 34.9 % (15.3-44.8); MCV 82.2 fL (80-100); MPV 7.6 fL (7.6-11.3); RBC Red Blood Cell Count 4.76 M/uL (3.86-4.86)
[2022-07-03 01:31] LABS: Protime INR 1.01
[2022-07-03 01:38] LABS: Barbiturates NEGATIVE (NEGATIVE); Benzodiazepines POSITIVE (NEGATIVE); Cocaine NEGATIVE (NEGATIVE); METHAMPHETAM POSITIVE (NEGATIVE); Methadone NEGATIVE (NEGATIVE); Opiates NEGATIVE (NEGATIVE); Phencyclidine NEGATIVE (NEGATIVE); THC Cannibis NEGATIVE (NEGATIVE)
[2022-07-03 01:55] LABS: ALT/SGPT 27 U/L (12-78); AST/SGOT 24 U/L (15-37); Albumin 3.7 g/dL (3.4-5.0); Alkaline Phosphatase 187 U/L (45-117); BUN Blood Urea Nitrogen 25 mg/dL (7-18); Bicarbonate 26 mmol/L (21-32); Bilirubin Direct < 0.1 mg/dL (0-0.2); Bilirubin Total 0.3 mg/dL (0.2-1.0); Glomerular Filtration Rate 20 ml/min (=/>90); Glucose Level 108 mg/dL (74-106); Potassium 3.4 mmol/L (3.5-5.1); Protein, Total 8.6 g/dL (6.4-8.2); Sodium Level 137 mmol/L (136-145)
[2022-07-03] MEDS ORDERED: IBUPROFEN 400 MG TAB ONE (02:14)
--- NOTE | 2022-07-03 03:04 | EDPHYS ---
Physician Documentation [facility] Name: Babs Younger Age: 51 yrs Sex: Female : 1970 Arrival Date: 07/03/2022 Time: 00:15 Bed 7 Private MD: ED Physician Natanael Bell HPI: 07/03 01:16 This 51 yrs old Black Female presents to ER via EMS with complaints of falling. kdr 01:16 Currently acute kidney failure patient was brought to the ED by EMS after they had been kdr called for increased falls. EMS stated that on their arrival the patient was laying in a pile of pills. She states that she has fallen a few times in the last few days and feels that her lupus is acting up. She states that she has only been taking BC powder for the pain. She denies any other pain medication.. Onset: The symptoms/episode began/occurred Last few days. Severity of symptoms: At their worst the symptoms were mild just prior to arrival, in the emergency department the symptoms are unchanged. The patient has experienced similar episodes in the past, chronically. The patient has not recently seen a physician. 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 - Social history:: Smoking status: Patient denies any tobacco usage or history of. ROS: 01:16 Constitutional: Negative for fever, chills, and weight loss, Eyes: Negative for injury, kdr pain, redness, and discharge, Neck: Negative for injury, pain, and swelling, Cardiovascular: Negative for chest pain, palpitations, and edema, Respiratory: Negative for shortness of breath, cough, wheezing, and pleuritic chest pain, Abdomen/GI: Negative for abdominal pain, nausea, vomiting, diarrhea, and constipation, Back: Negative for injury and pain, Skin: Negative for injury, rash, and discoloration, Psych: Negative for depression, anxiety, suicide ideation, homicidal ideation, and hallucinations, Allergy/Immunology: Negative for hives, rash, and allergies, Endocrine: Negative for neck swelling, polydipsia, polyuria, polyphagia, and marked weight changes, Hematologic/Lymphatic: Negative for swollen nodes, abnormal bleeding, and unusual bruising. 01:16 MS/extremity: Positive for pain, Patient states that she feels as if her lupus is acting up and all of her joints are achy and painful. Exam: 01:18 Constitutional: This is a well developed, well nourished patient who is awake, alert, kdr and in no acute distress. Head/Face: Normocephalic, atraumatic. Eyes: Pupils equal round and reactive to light, extra-ocular motions intact. Lids and lashes normal. Conjunctiva and sclera are non-icteric and not injected. Cornea within normal limits. Periorbital areas with no swelling, redness, or edema. Neck: Trachea midline, no thyromegaly or masses palpated, and no cervical lymphadenopathy. Supple, full range of motion without nuchal rigidity, or vertebral point tenderness. No Meningismus. Chest/axilla: Normal chest wall appearance and motion. Nontender with no deformity. No lesions are appreciated. Cardiovascular: Regular rate and rhythm with a normal S1 and S2. No gallops, murmurs, or rubs. Normal PMI, no JVD. No pulse deficits. Respiratory: Lungs have equal breath sounds bilaterally, clear to auscultation and percussion. No rales, rhonchi or wheezes noted. No increased work of breathing, no retractions or nasal flaring. Back: No spinal tenderness. No costovertebral tenderness. Full range of motion. Skin: Warm, dry with normal turgor. Normal color with no rashes, no lesions, and no evidence of cellulitis. MS/ Extremity: Pulses equal, no cyanosis. Neurovascular intact. Full, normal range of motion. Neuro: Awake and alert, GCS 15, oriented to person, place, time, and situation. Cranial nerves II-XII grossly intact. Motor strength 5/5 in all extremities. Sensory grossly intact. Cerebellar exam normal. Normal gait. Psych: Awake, alert, with orientation to person, place and time. Behavior, mood, and affect are within normal limits. 01:18 Abdomen/GI: Inspection: scar(s), Patient has extensive scarring on her abdomen from multiple surgeries , Palpation: soft, mild abdominal tenderness, in all quadrants. Vital Signs: 00:29 BP 201 / 101; Pulse 75; Resp 18; Temp 97.8; Pulse Ox 100% ; Weight 79.83 kg; Height 5 tw5 ft. 2 in. (157.48 cm); Pain 8/10; 01:12 BP 175 / 110; Pulse 77; Resp 16; Pulse Ox 100% on R/A; tw5 02:07 Pulse 78; Resp 16; Pulse Ox 100% on R/A; tw5 00:29 Body Mass Index 32.19 (79.83 kg, 157.48 cm) tw5 MDM: 01:18 Data reviewed: vital signs, nurses notes, lab test result(s). Counseling: I had a kdr detailed discussion with the patient and/or guardian regarding: the historical points, exam findings, and any diagnostic results supporting the discharge/admit diagnosis, lab results. 03:03 Patient medically screened. kdr 07/03 00:28 Order name: Acetaminophen; Complete Time: 02:11 kdr 07/03 00:28 Order name: Basic Metabolic Panel; Complete Time: 02:11 kdr 07/03 00:28 Order name: CBC with Diff; Complete Time: 01:54 kdr 07/03 00:28 Order name: ETOH Level; Complete Time: 02:11 kdr 07/03 00:28 Order name: Hepatic Function; Complete Time: 02:11 kdr 07/03 00:28 Order name: PT-INR; Complete Time: :54 kdr 07/03 00:28 Order name: Ptt, Activated; Complete Time: 01:54 kdr 07/03 00:28 Order name: Salicylate; Complete Time: 02:11 kdr 07/03 00:28 Order name: Urine Drug Screen; Complete Time: :54 kdr 07/03 00:28 Order name: Labs collected and sent; Complete Time: 01:13 kdr 07/03 00:28 Order name: Suicide Screening ([place]); Complete Time: 01:13 kdr 07/03 00:28 Order name: CT Head C Spine kdr 07/03 00:28 Order name: Urine Dipstick-Ancillary (obtain specimen); Complete Time: 01:13 kdr Administered Medications: 02:15 Not Given (Patient Refused; "i cannot swallow those."): Motrin (ibuprofen) 800 mg PO tw5 once Disposition Summary: 07/03/22 03:03 Discharge Ordered Location: Home kdr Problem: new kdr Symptoms: have improved kdr Condition: Stable kdr Diagnosis - Arthralgia, myalgia kdr - Adverse effect of amphetamines kdr - Adverse effect of amphetamines, sequela kdr - Adverse effect of benzodiazepines kdr Followup: kdr - With: Private Physician - When: 2 - 3 days - Reason: If symptoms return, Further diagnostic work-up, Recheck today's complaints, Continuance of care, Re-evaluation by your physician Discharge Instructions: - Discharge Summary Sheet kdr - Systemic Lupus Erythematosus, Adult kdr - Methamphetamines Use Disorder kdr - Weakness, [id number] kdr - Joint Pain, [id number] kdr Forms: - Medication Reconciliation Form kdr - Thank You Letter kdr Signatures: Dispatcher [employer] Natanael Messina MD MD kdr Wood, Tiffany tw5 Corrections: (The following items were deleted from the chart) 03:11 00:28 IV Saline Lock ordered. kdr tw5
--- NOTE | 2022-07-03 03:04 | ER ---
Nurse's Notes [facility] Juan Manuel Name: Babs Younger Age: 51 yrs Sex: Female : 1970 Arrival Date: 07/03/2022 Time: 00:15 Bed 7 Private MD: Diagnosis: Arthralgia, myalgia;Adverse effect of amphetamines;Adverse effect of amphetamines, sequela;Adverse effect of benzodiazepines Presentation: 07/03 00:17 Chief complaint: EMS states: "We were called out for a patient falling. When we arrived tw5 patient was on the floor in a pile of pillows. She states that she has fallen several times over the past couple of days. She also reports she has had only one glass of wine, she later told use it wasn't wine she just had a couple of shots of patron, but that isn't what is causing her to fall. She states that she is having a flare up of lupus that a doctor gave her. It isn't her hydrocodone either since she doesn't take it, but her home health nurse is stealing it from her.". 00:17 Method Of Arrival: EMS: [facility] tw5 00:29 Chief complaint: Patient states: "I have been falling, I have been on steroids for a tw5 year and my bones are weak. Last time I was at this hospital they gave me chemo, I just dont understand why they did that.". Chief complaint: Patient states: "I have a crack in the back of my head after my second fall.". Coronavirus screen: Vaccine status: Patient reports receiving the 2nd dose of the covid vaccine. [employer]. Ebola Screen: Patient negative for fever greater than or equal to 101.5 degrees Fahrenheit, and additional compatible Ebola Virus Disease symptoms Patient denies exposure to infectious person. Patient denies travel to an Ebola-affected area in the 21 days before illness onset. Initial Sepsis Screen: Does the patient meet any 2 criteria? No. Patient's initial sepsis screen is negative. Does the patient have a suspected source of infection? No. Patient's initial sepsis screen is negative. Risk Assessment: Do you want to hurt yourself or someone else? Patient reports no desire to harm self or others. Onset of symptoms is unknown. 00:29 Acuity: ELVA 3 tw5 Triage Assessment: 00:32 General: Appears obese, Behavior is drowsy. Pain: Complains of pain in scalp Pain tw5 currently is 8 out of 10 on a pain scale. 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 - Social history:: Smoking status: Patient denies any tobacco usage or history of. Screenin:33 Abuse screen: Denies threats or abuse. Denies injuries from another. Nutritional tw5 screening: No deficits noted. Tuberculosis screening: No symptoms or risk factors identified. Fall Risk Fall in past 12 months (25 points). Assessment: 00:33 General: Appears in no apparent distress. Behavior is calm, cooperative, appropriate tw5 for age, crying. Pain: Complains of pain in "All my bones are hurting right now." Pain currently is 8 out of 10 on a pain scale. Neuro: Level of Consciousness is awake, alert, obeys commands, Oriented to person, place, time, situation. Respiratory: Airway is patent Trachea midline. Derm: Skin is intact. 01:12 General: Reports "I would really like something for my back pain, it hurts so bad.". tw5 02:07 Reassessment: Patient and/or family updated on plan of care and expected duration. Pain tw5 level reassessed. Patient is alert, oriented x 3, equal unlabored respirations, skin warm/dry/pink. Vital Signs: 00:29 BP 201 / 101; Pulse 75; Resp 18; Temp 97.8; Pulse Ox 100% ; Weight 79.83 kg; Height 5 tw5 ft. 2 in. (157.48 cm); Pain 8/10; 01:12 BP 175 / 110; Pulse 77; Resp 16; Pulse Ox 100% on R/A; tw5 02:07 Pulse 78; Resp 16; Pulse Ox 100% on R/A; tw5 00:29 Body Mass Index 32.19 (79.83 kg, 157.48 cm) tw5 ED Course: 00:15 Patient arrived in ED. mm9 00:18 Natanael Bell MD is Attending Physician. kdr 00:26 Charisse Crespo is Primary Nurse. tw 00:32 Triage completed. tw 00:32 Arm band placed on right wrist. Patient placed in an exam room. tw5 00:33 Placed in gown. Bed in low position. Call light in reach. Side rails up X2. Client tw5 placed on continuous cardiac and pulse oximetry monitoring. NIBP monitoring applied. Door closed. 01:12 Initial lab(s) drawn, by me, sent to lab. Urine collected: straight cath specimen, tw clear, Amount Returned: 900mL. Missed attempt(s): 24 gauge in right hand. Bleeding controlled, band aid applied, catheter tip intact. 01:13 Acetaminophen Sent. tw 01:13 Basic Metabolic Panel Sent. 01:13 CBC with Diff Sent. tw 01:13 Hepatic Function Sent. tw 01:13 ETOH Level Sent. 01:13 PT-INR Sent. 01:13 Ptt, Activated Sent. tw 01:13 Salicylate Sent. tw 01:13 Urine Drug Screen Sent. tw5 01:47 CT Head C Spine In Process Unspecified. EDMS 03:12 Awaiting transportation. tw5 03:12 No provider procedures requiring assistance completed. Patient did not have IV access tw5 during this emergency room visit. Administered Medications: 02:15 Not Given (Patient Refused; "i cannot swallow those."): Motrin (ibuprofen) 800 mg PO tw5 once Medication: 00:33 VIS not applicable for this client. Outcome: 03:03 Discharge ordered by . kdr 03:12 Discharged to home via wheelchair, with family. tw5 03:12 Condition: stable 03:12 Discharge instructions given to patient, Instructed on discharge instructions, follow up and referral plans. special notes Demonstrated understanding of instructions, follow-up care. 04:21 Patient left the ED. Signatures: Dispatcher [employer] EDMS Natanael Bell MD MD kdr Wood, Tiffany tw5 Arlet Callejas mm9
[2022-07-03 04:27] VITALS: TEMP 97.8; O2SAT 100
[2022-07-03 04:28] VITALS: BP 175/110
--- NOTE | 2022-07-03 21:24 | RAD REPORT ---
EXAM DESCRIPTION: CT - Head C Spine Mpr Wo Con - 07/03/2022 1:45 am CLINICAL HISTORY: The patient is 51 years old and is Female; Multiple falls TECHNIQUE: Axial computed tomography images of the head/brain and cervical spine without intravenous contrast. Sagittal and coronal reformatted images were created and reviewed. This CT exam was pe rformed using one or more of the following dose reduction techniques: automated exposure control, a djustment of the mA and/or kV according to patient size, and/or use of iterative reconstruction techn ique. COMPARISON: No relevant prior studies available. FINDINGS: Brain: Unremarkable. No hemorrhage. No significant white matter disease. No edema. Ventricles: Unremarkable. No ventriculomegaly. Skull: No acute fracture. Sinuses: Unremarkable as visualized. No acute sinusitis. Mastoid air cells: Unremarkable as visualized. No mastoid effusion. Vertebrae: Unremarkable. No acute fracture. Normal alignment. Discs/spinal canal/neural foramina: No acute findings. No spinal canal stenosis. Other bones/joints: Slight deformity of the right seventh rib which may relate to prior fracture. Soft tissues: Unremarkable. IMPRESSION: No acute intracranial abnormality. No acute findings in the cervical spine. Electronically signed by: Juan Jones MD 07/03/2022 2:06 AM CDT Due to temporary technical issues with the PACS/Fluency reporting system, reports are being signed by the in house radiologists without review as a courtesy to insure prompt reporting. The interpreting radiologist is fully responsible for the content of the report.
== END 2022-07-03 04:21 | disposition home or self-care (01) ==
LOC: ER 00:12
DX: M79.10 Myalgia, unspecified site (principal); M25.50 Pain in unspecified joint; T42.4X5A Adverse effect of benzodiazepines, initial encounter; I12.0 Hypertensive chronic kidney disease with stage 5 chronic kidney disease or end stage renal disease; N18.6 End stage renal disease; Z88.5 Allergy status to narcotic agent; Z91.013 Allergy to seafood
CPT/HCPCS: 36415; 70450; 72125; 80048; 80076; 80307; 80320; 80329; 85025; 85610; 85730; 99283

== ENCOUNTER 2022-07-14 20:41 | Emergency (ER) | payer OTHER ==
--- OUTSIDE RECORDS SUMMARY | 2022-07-14 20:47 | XMS REPORT | Continuity of Care Document ---
:[address] [facility] [place], [place] t Address [address] [place] [address] Care Team Providers Name Role Phone Monico Espinoza DO Dorota Primary Care Physician [phone] [facility] Attending Clinician Unavailable Naga Shepherd MD S Attending Clinician Jeanna Shrestha Attending Clinician TONY GRAF Attending Clinician Unavailable Ligia Pedro MD Attending Clinician LIGIA PEDRO Attending Clinician Unavailable LIGIA PEDRO Attending Clinician Unavailable Doctor Unassigned, [place] Attending Clinician Unavailable ABEL LI Attending Clinician Unavailable ABEL LI Admitting Clinician Unavailable Payers Payer Name Policy Type Policy Number Effective Date Expiration Date S ource [place]ICAID [place] [id number] 2014 00:00:00 [facility] [id number] 2017 DUAL COMPLETE 00:00:00 Problems Condition Condition [...] Active 2017-[address] [facility] [facility] hypertensi hypertensi 1-30 Gidla kes on on 00:00: Medical 00 Center Type 2 Type 2 Disease Active 2017-[address] [facility] diabetes diabetes 1-30 [facility] mellitus mellitus 00:00: Medica l with with 00 Center kidney kidney complicati complicati on, with on, with long-term long-term current current use of use of insulin insulin Colostomy Colostomy Disease Active 2018-[address] [facility] complicati complicati 1-30 Gilad kes on on 00:00: Medical 00 Center bright red bright red Disease Active 2017-[address] blood in blood in 30 [facility] colostomy colostomy 00:00: [facility] 00 Center HTN HTN Disease Active 2017-[address] [facility] (hypertens (hypertens 1-30 Gilda kes ion), ion), 00:00: Medical malignant malignant 00 Cent er Lupus Lupus Disease Active 2017-[address] nephritis nephritis 30 Luke s 00:00: [facility] 00 Center DAE (acute DAE (acute Disease Active 2017-[address] kidney kidney 30 [facility] injury) injury) 00:00: Medical 00 Center Hypernatre Hypernatre Disease Active 2017-[address] charisse charisse 09-27 [facility] 00:00: [facility] Center Hypokalemi Hypokalemi Disease Active 2017-[address] a a -30 [facility] 00:00: [facility] Center Bowel Bowel Disease Active Univers obstructio obstructio 3-20 it y of n n 00:00: [place] [facility] Colonic Colonic Disease Active Univers obstructio obstructio 3-19 it y of n n 00:00: [address] Branch Colostomy Colostomy Disease Active Met hodi in place in place 02-23 st 00:00: Hospita 00 l Seizure Seizure Disease Active Univers 9-21 ity of 00:00: [place] [facility] Obesity Obesity Disease Active Univers (BMI (BMI 9-20 ity of 30-39.9) 30-39.9) 00:00: [place] [facility] Pulmonary Pulmonary Disease Active Uni vers edema edema 8-28 ity of 00:00: [place] [facility] Systemic Systemic Disease Active Unive rs lupus lupus 2-23 ity of erythemato erythemato [place] [facility] Depression Depression Disease Active U nivers , major , major 2-18 ity of 00:00: [place] [facility] DEA (acute DAE (acute Disease Active U nivers kidney kidney 2-12 ity of injury) injury) 00:00: [place] [facility] HTN HTN Disease Active Univers (hypertens (hypertens 2-12 it y of ion) ion) 00:00: [place] [facility] Lupus Lupus Disease Active Univers [...] aaliyah INGREDI 05-13 ity of 00:00: [place] [facility] Morphine Propensi Active Palpitations Methodi ty to 05-13 st adverse 00:00: Hospita reaction 00 l s to drug Family History Family Member Diagnosis Comments Start Date Stop Date Source Natural father Kidney disease [facility] Natural father Kidney cancer [facility] Natural mother Cancer [facility] Natural mother Hypertension [facility] Natural mother Uterine cancer [facility] Natural sister Diabetes [facility] Social History Social Habit Start Date Stop Date Quantity Comments Source Exposure to Not sure University of SARS-CoV-2 [place] [facility] (event) Branch History SDOH [facility] Alcohol Std Medical Cente r Drinks History SDOH [facility] Alcohol Binge Medical Tar[address] ter History SDOH [facility] Alcohol Comment Medical C enter Tobacco use and 2021-03-27 2021-03-27 Never used Universit y of exposure 00:00:00 00:00:00 [facility] Alcohol intake 2019-08-27 2019-08-27 Current [facility] 00:00:00 00:00:00 non-drinker of alcohol (finding) History SDOH 2018-07-28 2018-07-[address] [facility] Alcohol Frequency 00:00:00 00:00:00 Medical Center Sex Ass[birth year] At [birth year] [facility] 00:00:00 00:00:00 Smoking Status Start Date Stop Date Source Never smoker [facility] [place] [facility] Medications Ordered Filled Start Stop [...] Fri Medica l NaCl 0.9% 03/27/21 at [facility] ch (NS) 50 mL 0230, 50 piggyback mL FENTanyl PF 2020- No 100ug 100 mcg, Univers (SUBLIMAZE 03-27 Slow IV ity o f (PF)) 07:30: 06:31 Push, [place] injection 00 :00 ONCE, 1 Medical 100 mcg dose, [facility] 03/27/21 at 0230, Routine amoxicillin Yes [id number] 875mg Take 1 Univers 875 mg 5-20 [id number] tablet by ity of tablet 00:00: mouth 2 [place] 00 (two) Medical times Branch daily. amoxicillin Yes [id number] 875mg Take 1 Univers 875 mg 5-20 [id number] tablet by ity of tablet 00:00: mouth 2 [place] 00 (two) Medical times Branch daily. neomycin-po 2020- No [id number] 3[drp] Place 3 Univers lymyxin-hyd 01-15 05- 69841 Drops in it y of rocortisone 00:00: 04:59 right ear [place] 3.5-10,000- 00 :00 4 (four) Medi valentin 1 times Branch mg/mL-unit/ daily for mL-% otic 7 days. susp sertraline 2020-0 Yes 25mg QD Take 25 [...] times a day as needed for anxiety. hydroxychlo 2020-0 Yes 500mg Q.5D Take 500 [...] 16:02: mouth Hospita tablet 14 daily. l hydroxychlo [...] by mouth. Jose es MG tablet 08:16: [address] pantoprazol 2017-08 Yes 40mg QD Take [address] e 2-04 by mouth [facility] (PROTONIX) 08:16: daily. Medic al 40 MG 44 Center tablet doxazosin 2017-08 Yes 4mg Take [address] (CARDURA) 2 2-04 by mouth. Jose es MG tablet 08:16: [address] pantoprazol 2017-08 Yes 40mg QD Take [address] [facility] e 2-04 by mouth [facility] (PROTONIX) 08:16: daily. Medic al 40 MG 44 Center tablet doxazosin 2017-08 Yes 4mg Take [address] (CARDURA) 2 2-04 by mouth. Jose es MG tablet 08:16: [address] pantoprazol 2017-08 Yes 40mg QD Take [address] [facility] e 2-04 by mouth [facility] (PROTONIX) 08:16: daily. Medic al 40 MG 44 Center tablet doxazosin 2017-08 Yes 4mg Take [address] (CARDURA) 2 2-04 by mouth. Jose es MG tablet 08:16: Medical 44 Center pantoprazol 2017-08 Yes 40mg QD Take [address] [facility] e 2-04 by mouth [facility] (PROTONIX) 08:16: daily. Medic al 40 MG 44 Center tablet zolpidem 2017-08 Yes 10mg QD Take [address] (AMBIEN) 10 1-25 by mouth Luke s mg tablet 00:00: nightly. [address] zolpidem 2017-08 Yes 10mg QD Take [address] (AMBIEN) 10 1-25 by mouth Luke s mg tablet 00:00: nightly. [facility] [place] zolpidem 2017-08 Yes 10mg QD Take [address] (AMBIEN) 10 1-25 by mouth Luke s mg tablet 00:00: nightly. [address] zolpidem 2017-08 Yes 10mg QD Take [address] (AMBIEN) 10 1-25 by mouth Luke s mg tablet 00:00: nightly. [facility] 00 [place] ondansetron 2017-08 Yes DIS 1 T ON [...] PRN Jose es hen (NORCO 00:00: Medical 10-325) 00 [place] 10-325 mg per tablet HYDROcodone 2017-08 Yes TK [address] T [address] [facility] -acetaminop 1-15 Q 8 H PRN Jose es hen (NORCO 00:00: Medical 10) 00 Center [...] mouth ity of mg tablet 20:00: daily. [place] [address] Medical Branch metoprolol Yes 100mg Take 100 [...] mouth ity of 10 mg 20:00: daily. [place] [address] Medical Branch doxazosin Yes 4mg Take 4 mg Uni vers (CARDURA) 4 3-21 by mouth ity of mg tablet 20:00: daily. [place] [address] Medical Branch zolpidem Yes 10mg Take 10 [...] mouth ity of mg tablet 20:00: daily. [place] [address] Medical Branch metoprolol 2018-0 Yes 100mg Take [...] mouth ity of 10 mg 20:00: daily. [place] tablet Medical Branch doxazosin 2018-0 Yes 4mg Take 4 mg Uni vers (CARDURA) 4 3-21 by mouth ity of mg tablet 20:00: daily. [place] [address] Medical Branch zolpidem 2017-0 Yes 10mg Take [...] mouth ity of mg tablet 20:00: daily. [place] [address] Medical Branch metoprolol 2018-0 Yes 100mg Take [...] mouth ity of 10 mg 20:00: daily. [place] [address] Medical Branch doxazosin 2018-0 Yes 4mg Take 4 mg Uni vers (CARDURA) 4 3-21 by mouth ity of mg tablet 20:00: daily. [place] [address] Medical Branch zolpidem 2018-0 Yes 10mg Take [...] mouth ity of mg tablet 20:00: daily. [place] [address] Medical Branch metoprolol 2017-0 Yes 100mg Take [...] mouth ity of 10 mg 20:00: daily. [place] [address] Medical Branch doxazosin 2017-0 Yes 4mg Take 4 mg Uni vers (CARDURA) 4 3-21 by mouth ity of mg tablet 20:00: daily. [place] [address] Medical Branch zolpidem 2017-0 Yes 10mg Take [...] mouth ity of mg tablet 20:00: daily. [place] [address] Medical Branch metoprolol 2017-0 Yes 100mg Take [...] mouth ity of 10 mg 20:00: daily. [facility] 52 Medical Branch doxazosin 0 Yes 4mg Take 4 mg Uni vers (CARDURA) 4 3-21 by mouth ity of mg tablet 20:00: daily. [place] [address] Medical Branch zolpidem 0 Yes 10mg Take [...] spita 00 needed for l sleep. zolpidem 0 Yes 10mg QD Take 10 mg Met hodi (AMBIEN) 10 6-[address] mg tablet 00:00: nightly as Ho spita 00 needed for l sleep. zolpidem 2016-0 Yes 10mg QD Take 10 mg Met hodi (AMBIEN) 10 6-[address] mg tablet 00:00: nightly as Ho spita 00 needed for l sleep. mycophenola 2017-0 Yes 1000mg Q.5D Take 1,000 Methodi te 5[facility] (CELLCEPT) 00:00: mouth 2 [facility] 500 mg 00 (two) l tablet times a day. mycophenola 2017-0 Yes 1000mg Q.5D Take 1,000 Methodi te 5-[address] (CELLCEPT) 00:00: mouth 2 [facility] 500 mg 00 (two) l tablet times a day. mycophenola 2017-0 Yes 1000mg Q.5D Take 1,[address] Methodi te 5-[address] (CELLCEPT) 00:00: mouth 2 [facility] 500 mg 00 (two) l tablet times a day. HYDROcodone 2016-0 Yes 1{tbl} Take 1 Un aaliyah -acetaminop 9-24 tablet by ity of hen ([employer]) 00:00: mouth [place] 10-325 mg 00 every 6 Medical tablet (six) Branch hours as needed for Pain (scale 7-10). HYDROcodone 2016-0 Yes 1{tbl} Take 1 Un aaliyah -acetaminop 9-24 tablet by ity of hen ([employer]) 00:00: mouth [place] 10-325 mg 00 every 6 Medical tablet (six) Branch hours as needed for Pain (scale 7-10). HYDROcodone 2015-0 Yes 1{tbl} Take 1 Un aaliyah -acetaminop 9-24 tablet by ity of hen ([employer]) 00:00: mouth [place] 10-325 mg 00 every 6 Medical tablet (six) Branch hours as needed for Pain (scale 7-10). HYDROcodone 2015-0 Yes 1{tbl} Take 1 Un aaliyah -acetaminop 9-24 tablet by ity of hen ([employer]) 00:00: mouth [place] 10-325 mg 00 every 6 Medical tablet (six) Branch hours as needed for Pain (scale 7-10). HYDROcodone 2015-0 Yes 1{tbl} Take 1 Un aaliyah -acetaminop 9-24 tablet by ity of hen ([employer]) 00:00: mouth [place] 10-325 mg 00 every 6 Medical tablet (six) Branch hours as needed for Pain (scale 7-10). hydralAZINE Yes 100mg Take 1 Uni vers [...] Q 12 H ity of 00:00: PRN. [facility] [place] tiZANidine Yes TK 1 T PO Un aaliyah (ZANAFLEX) 8-22 QHS. ity of 2 mg tablet 00:00: [facility] ER Yes TK ONE C Uni vers 10 mg CR12 8-22 PO Q 12 H ity of 00:00: PRN. [facility] [place] tiZANidine Yes TK 1 T PO Un aaliyah (ZANAFLEX) 8-22 QHS. ity of 2 mg tablet 00:00: [facility] ER Yes TK ONE C Uni vers 10 mg CR12 8-22 PO Q 12 H ity of 00:00: PRN. [facility] [place] tiZANidine Yes TK 1 T PO Un aaliyah (ZANAFLEX) 8-22 QHS. ity of 2 mg tablet 00:00: [facility] ER Yes TK ONE C Uni vers 10 mg CR12 8-22 PO Q 12 H ity of 00:00: PRN. [facility] [place] furosemide Yes TK 1 T PO Un aaliyah (LASIX) 80 6-16 BID. ity of mg tablet 00:00: [facility] [place] furosemide Yes TK 1 T PO Un aaliyah (LASIX) 80 6-16 BID. ity of mg tablet 00:00: [facility] [place] furosemide Yes TK 1 T PO Un aaliyah (LASIX) 80 6-16 BID. ity of mg tablet 00:00: [facility] [place] furosemide Yes TK 1 T PO Un aaliyah (LASIX) 80 6-16 BID. ity of mg tablet 00:00: [facility] [place] furosemide Yes TK 1 T PO Un aaliyah (LASIX) 80 6-16 BID. ity of mg tablet 00:00: [place] [facility] [place] ONETOUCH Yes FPD Univers ULTRA2 Kit 6-13 ity of 00:00: [facility] [place] ONETOUCH Yes FPD Univers ULTRA2 Kit 6-13 ity of 00:00: [facility] [place] ONETOUCH Yes FPD Univers ULTRA2 Kit 6-13 ity of 00:00: [facility] [place] ONETOUCH 2016-0 Yes FPD Univers ULTRA2 Kit [...] needed for Nausea and Vomiting (N/V). ONETOUCH 2016-0 Yes Univers ULTRA TEST 2-21 ity of strip 00:00: [place] 00 Medical Branch ONETOUCH 2016-0 Yes Univers ULTRA TEST 2-21 ity of strip 00:00: [place] 00 Medical Branch ONETOUCH 2016-0 Yes Univers ULTRA TEST 2-21 ity of strip 00:00: [place] 00 Medical Branch ONETOUCH 2016-0 Yes Univers ULTRA TEST 2-21 ity of strip 00:00: [place] 00 Medical Branch ONETOUCH 2016-0 Yes Univers ULTRA TEST 2-21 ity of strip 00:00: [place] 00 Medical Branch amLODIPine 2014-08 Yes 10mg Take [address] (NORVASC) 2-11 by mouth. [facility] 10 MG 00:00: Medical tablet 00 [place] amLODIPine 2014-08 Yes 10mg Take [address] (NORVASC) 2-11 by mouth. [facility] 10 MG 00:00: Medical tablet 00 [place] amLODIPine 2014-08 Yes 10mg Take [address] (NORVASC) 2-11 by mouth. [facility] 10 MG 00:00: Medical tablet 00 [place] amLODIPine 2014-08 Yes 10mg Take [address] (NORVASC) 2-11 by mouth. [facility] 10 MG 00:00: Medical tablet 00 [place] cloNIDine 2014-08 Yes .3mg Q.[id number] Take 0.[address] [facility] [address] HCl 1-11 [id number] mg by [facility] (CATAPRES) 00:00: 3D mouth 3 Medi valentin 0.3 MG 00 (three) Center tablet times daily . furosemide 2014-08 Yes 80mg Take [address] (LASIX) 40 1-11 by mouth . Jose es MG tablet 00:00: Medical 00 [place] hydrALAZINE 2014-08 Yes 50mg Q.[id number] Take [address] (APRESOLINE 1-11 [id number] by mouth 3 [facility] ) 50 MG 00:00: 3D (three) Medical tablet 00 times Center daily. metoprolol 2014-08 Yes 100mg Q.5D Take [address] (LOPRESSOR) 1-11 mg by [facility] 100 MG 00:00: mouth 2 Medical tablet 00 (two) Center times daily. cloNIDine 2014-08 Yes .3mg Q.[id number] Take 0.[address] HCl 1-11 [id number] mg by [facility] (CATAPRES) 00:00: 3D mouth 3 Medi valentin 0.3 MG 00 (three) Center tablet times daily . furosemide 2014-08 Yes 80mg Take [address] (LASIX) 40 1-11 by mouth . Jose es MG tablet 00:00: Medical 00 [place] hydrALAZINE 2014-08 Yes 50mg Q.[id number] Take [address] (APRESOLINE 1-11 [id number] by mouth 3 [facility] ) 50 MG 00:00: 3D (three) Medical tablet 00 times Center daily. metoprolol 2014-08 Yes 100mg Q.5D Take [address] (LOPRESSOR) 1-11 mg by [facility] 100 MG 00:00: mouth 2 Medical tablet 00 (two) Center times daily. cloNIDine 2014-08 Yes .3mg Q.[id number] Take 0.[address] HCl 1-11 [id number] mg by [facility] (CATAPRES) 00:00: 3D mouth 3 Medi valentin 0.3 MG 00 (three) Center tablet times daily . furosemide 2014-08 Yes 80mg Take [address] (LASIX) 40 1-11 by mouth . [place] es MG tablet 00:00: Medical 00 [place] hydrALAZINE 2014-08 Yes 50mg Q.[id number] Take [address] (APRESOLINE 1-11 [id number] by mouth 3 [facility] ) 50 MG 00:00: 3D (three) Medical tablet 00 times Center daily. metoprolol 2014-08 Yes 100mg Q.5D Take [address] (LOPRESSOR) 1-11 mg by [facility] 100 MG 00:00: mouth 2 Medical tablet 00 (two) Center times daily. cloNIDine 2014-08 Yes .3mg Q.[id number] Take 0.[address] HCl 1-11 [id number] mg by [facility] (CATAPRES) 00:00: 3D mouth 3 Medi valentin 0.3 MG 00 (three) Center tablet times daily . furosemide 2014-08 Yes 80mg Take [address] (LASIX) 40 1-11 by mouth . Jose es MG tablet 00:00: Medical 00 [place] hydrALAZINE 2014-08 Yes 50mg Q.[id number] Take [address] (APRESOLINE 1-11 [id number] by mouth 3 [facility] ) 50 MG 00:00: 3D (three) Medical tablet 00 times Center daily. metoprolol 2014-08 Yes 100mg Q.5D Take [address] (LOPRESSOR) 1-11 mg by [facility] 100 MG 00:00: mouth 2 Medical tablet 00 (two) Center times daily. Immunizations Ordered Filled Immunization Date Status Comments [facility] e Immunization Name Name SARS-COV-2 COVID-19 2020-11-15 [address] [facility] VACC[facility] 00:00:00 [facility] SARS-COV-2 COVID-19 2020-11-15 Completed Unive rsity of PFIZER VACCINE 00:00:00 [facility] SARS-COV-2 COVID-19 2020-10-25 Completed Unive rsity of PFIZER VACCINE 00:00:00 [facility] SARS-COV-2 COVID-19 2020-10-25 Completed Unive rsity of PFIZER VACCINE 00:00:00 [facility] SARS-COV-2 COVID-19 2020-10-25 Completed Unive rsity of PFIZER VACCINE 00:00:00 [facility] SARS-COV-2 COVID-19 2020-10-25 Completed Unive rsity of PFIZER VACCINE 00:00:00 [facility] SARS-COV-2 COVID-19 2020-10-25 Completed Unive rsity of PFIZER VACCINE 00:00:00 [facility] Vital Signs Vital Name Observation Time Observation Value Comments Source Systolic blood 2021-03-27 08:00:00 182 mm[Hg] Univer sity of pressure [facility] Diastolic blood 2021-03-27 08:00:00 101 mm[Hg] Unive rsity of pressure [facility] Heart rate 2021-03-27 08:00:00 72 /min [facility] Respiratory rate 2021-03-27 08:00:00 10 /min [facility] Oxygen saturation in 2021-03-27 08:00:00 100 /min [facility] Arterial blood by [facility] Pulse oximetry [place] Body temperature 2021-03-27 04:49:00 37.28 [facility] height 2021-03-27 04:49:00 157.5 cm [facility] Body weight 2021-03-27 04:49:00 83.462 kg [facility] BMI 2021-03-27 04:49:00 33.65 kg/m2 [facility] Systolic blood 2021-01-15 15:01:00 140 mm[Hg] Univer sity of pressure [facility] Diastolic blood 2021-01-15 15:01:00 84 mm[Hg] Unive rsity of pressure [facility] Heart rate 2021-01-15 15:01:00 76 /min [facility] Body temperature 2021-01-15 15:01:00 36.28 Chhaya Univ ersity [facility] Branch Respiratory rate 2021-01-15 15:01:00 18 /min Univ ersity of [facility] Body height 2021-01-15 15:01:00 157.5 cm Universi ty [facility] [place] [facility] [place] Body weight 2021-01-15 15:01:00 90.719 kg Universi ty [facility] [place] [facility] BMI 2021-01-15 15:01:00 36.58 kg/m2 Universi ty of [facility] Oxygen saturation in 2021-01-15 15:01:00 99 /min University of Arterial blood by [facility] Pulse oximetry Branch Systolic blood 2020-11-12 19:02:00 155 mm[Hg] Univer sity of pressure [facility] Diastolic blood 2020-11-12 19:02:00 95 mm[Hg] Unive rsity of pressure [facility] Heart rate 2020-11-12 19:01:00 79 /min [facility] [place] [facility] Respiratory rate 2020-11-12 19:01:00 19 /min Univ ersity of [facility] Body height 2020-11-12 19:01:00 167.6 cm [facility] [place] [facility] Body weight 2020-11-12 19:01:00 86.002 kg [facility] [place] [facility] BMI 2020-11-12 19:01:00 30.60 kg/m2 [facility] [place] [facility] Systolic blood 2020-11-12 19:02:00 155 mm[Hg] Univer sity of pressure [place] [facility] Diastolic blood 2020-11-12 19:02:00 95 mm[Hg] Unive rsity of pressure [place] [facility] Heart rate 2020-11-12 19:01:00 79 /min [facility] [place] [facility] Respiratory rate 2020-11-12 19:01:00 19 /min Univ ersity of [facility] Body height 2020-11-12 19:01:00 167.6 cm [facility] [place] [facility] Body weight 2020-11-12 19:01:00 86.002 kg [facility] [place] [facility] BMI 2020-11-12 19:01:00 30.60 kg/m2 [facility] [place] [facility] Procedures Procedure Date / Time Performed Performing Clinician Sourc e NOTICE OF PRIVACY 2021-03-27 04:39:35 Doctor Unassigned, No Univ [facility] PRACTICES Name Medical Branch CONSENT/REFUSAL FOR 2021-03-27 04:37:48 [facility] Name Medical Branch TREATMENT CONSENT/REFUSAL FOR 2021-01-15 14:58:04 Doctor Unassigned, [facility] AND Name Medical Branch TREATMENT ASSIGNMENT OF BENEFITS 2020-11-12 18:39:16 Doctor Unassigned, No [facility] Medical Branch Plan of Care Planned Activity Planned Date Details Comments Source Future Scheduled 2022-07-03 HEPATITIS B VACCINES Met [facility] Test 00:15:46 (1 of 3 - 3-dose series) [code = HEPATITIS B VACCINES (1 of 3 - 3-dose series)] Future Scheduled 2022-07-03 COVID-19 VACCINE (#1) [facility] Test 00:15:46 [code = COVID-19 VACCINE (#1)] Future Scheduled 2022-07-03 Pneumococcal Vaccine: [facility] Test 00:15:46 Pediatrics (0 to 5 Years) and At-Risk Patients (6 to 64 Years) (1 - PCV) [code = Pneumococcal Vaccine: Pediatrics (0 to 5 Years) and At-Risk Patients (6 to 64 Years) (1 - PCV)] Future Scheduled 2022-07-03 DIABETES: RETINAL EYE [facility] Test 00:15:46 EXAM [code = DIABETES: RETINAL EYE EXAM] Future Scheduled 2022-07-03 DIABETIC FOOT EXAM [facility] Test 00:15:46 [code = DIABETIC FOOT EXAM] Future Scheduled 2022-07-03 Hepatitis C screening [facility] Test 00:15:46 (procedure) [code = 132378790] Future Scheduled 2022-07-03 SHINGLES VACCINES (1 Met [facility] Test 00:15:46 of 2) [code = SHINGLES VACCINES (1 of 2)] Future Scheduled 2022-07-03 Screening for [facility] Test 00:15:46 malignant neoplasm of cervix (procedure) [code = 818284713] Future Scheduled 2022-07-03 BREAST CANCER [facility] Test 00:15:46 SCREENING [code = BREAST CANCER SCREENING] Future Scheduled 2022-07-03 COLONOSCOPY SCREENING [facility] Test 00:15:46 [code = COLONOSCOPY SCREENING] Future Scheduled 2022-07-03 INFLUENZA VACCINE Method [facility] Test 00:15:46 [code = INFLUENZA VACCINE] Future Scheduled 2022-07-03 HEPATITIS B VACCINES Met [facility] Test 00:15:46 (1 of 3 - 3-dose series) [code = HEPATITIS B VACCINES (1 of 3 - 3-dose series)] Future Scheduled 2022-07-03 COVID-19 VACCINE (#1) [facility] Test 00:15:46 [code = COVID-19 VACCINE (#1)] Future Scheduled 2022-07-03 Pneumococcal Vaccine: [facility] Test 00:15:46 Pediatrics (0 to 5 Years) and At-Risk Patients (6 to 64 Years) (1 - PCV) [code = Pneumococcal Vaccine: Pediatrics (0 to 5 Years) and At-Risk Patients (6 to 64 Years) (1 - PCV)] Future Scheduled 2022-07-03 DIABETES: RETINAL EYE [facility] Test 00:15:46 EXAM [code = DIABETES: RETINAL EYE EXAM] Future Scheduled 2022-07-03 DIABETIC FOOT EXAM [facility] Test 00:15:46 [code = DIABETIC FOOT EXAM] Future Scheduled 2022-07-03 Hepatitis C screening [facility] Test 00:15:46 (procedure) [code = 226695497] Future Scheduled 2022-07-03 SHINGLES VACCINES (1 Met [facility] Test 00:15:46 of 2) [code = SHINGLES VACCINES (1 of 2)] Future Scheduled 2022-07-03 Screening for [facility] Test 00:15:46 malignant neoplasm of cervix (procedure) [code = 538177358] Future Scheduled 2022-07-03 BREAST CANCER [facility] Test 00:15:46 SCREENING [code = BREAST CANCER SCREENING] Future Scheduled 2022-07-03 COLONOSCOPY SCREENING [facility] Test 00:15:46 [code = COLONOSCOPY SCREENING] Future Scheduled 2022-07-03 INFLUENZA VACCINE [facility] Test 00:15:46 [code = INFLUENZA VACCINE] Future Scheduled 2021-04-[address] [facility] Test 00:00:00 (Season Ended) [code = Medic [...] 00:00:00 measurement Medical Center (procedure) [code = 16964695] Future Scheduled 2019-01-[address] [facility] (procedure) [code = 95741152] Future Scheduled 2018-08-[address] [...] Test 00:00:00 (procedure) [code = Medical Center 85631008] Future Scheduled [address] [facility] Test 00:[facility]00 (procedure) [code = Medical Center 56786304] Future Scheduled 2014-06-[address] [...] Jose es Test 00:00:00 [facility] cervix (procedure) [code = 518495292] Future Scheduled [address] [facility] Test 00:00:00 [facility] cervix (procedure) [code = 624886733] Future Scheduled 1989 DTAP/TDAP/TD VACCINES CH I [...] 00:00:00 examination Medical Center (regime/therapy) [code = 678550919] Future Scheduled 1980 Urine screening for [facility] Test 00:00:00 protein (procedure) Medical Center [code = 467120526] Future Scheduled 1980 DIABETIC EYE EXAM [facility] Test 00:00:00 [code = DIABETIC EYE Medical Center EXAM] Future Scheduled [address] [facility] Test 00:[facility]:00 examination Medical Center (regime/therapy) [code = 231897256] Future Scheduled 1980 Urine screening for [facility] Test 00:00:00 protein (procedure) Medical Center [code = 767337660] Future Scheduled [address] [facility] Test 00:00:00 malignant neoplasm of [facility] breast (procedure) [code = 937213008] Future Scheduled [address] [facility] Test 00:00:00 malignant neoplasm of [facility] colon (procedure) [code = 892087520] Future Scheduled [address] [facility] Test 00:00:00 malignant neoplasm of [facility] breast (procedure) [code = 903312132] Future Scheduled [address] [facility] Test 00:00:00 malignant neoplasm of [facility] colon (procedure) [code = 028834929] Future Scheduled DIABETES: RETINAL EYE [facility] Test EXAM [code = DIABETES: RETINAL EYE EXAM] Future Scheduled [facility] Test [code = DIABETIC FOOT EXAM] Future Scheduled COVID-19 VACCINE (1) [facility] [code = COVID-19 VACCINE (1)] Future Scheduled Hepatitis C screening [facility] Test (procedure) [code = 235966826] Future Scheduled [facility] for [facility] Test malignant neoplasm of cervix (procedure) [code = 565876145] Future Scheduled BREAST CANCER [facility] Test SCREENING [code = BREAST CANCER [...] Clinicians Facility Department ID 2022-05-26 Outpatient daniel [facility] [id number] [phone] [facility] 15:31:14 e Pending sale to [facility] 2021-06-29 Emergency [facility] [id number] [facility]-28 Emergency [facility] [id number] Univers 20:14:34 [facility] 2021-03-26 2021-03-27 Emergency Yarisumaya, [facility] [id number] Univers 23:56:00 03:30:00 Sumitfélix Tess [place] [id number] ity of [place] 4.2.7.2.686 [facility] [phone] [address] 2021-01-15 2021-01-15 Emergency [facility] [id number] Univers 10:03:00 11:43:00 Jeanna S [place] [id number] i ty of [place] 4.2.7.2.686 [facility] [id number] [address] 2020-12-11 2020-12-11 Outpatient Sea GRAF [facility] [id number] Univers 10:00:00 10:00:00 [facility] 2020-11-15 2020-11-15 Outpatient [facility] [id number] Univers 13:05:00 13:05:00 [facility] 2020-11-12 2020-11-12 Office [facility] [id number] Univers 13:40:03 14:10:03 Visit Conchisl Jonnathan Carlos [id number] ity [facility] 4.2.7.2.686 [place] [phone] [place]ical [address] 2020-11-12 2020-11-12 [facility] [id number] 13:40:03 14:10:03 Visit Strahil T [place] [id number] [place] 4.2.7.2.686 Professio [phone] [address] 2020-11-12 2020-11-12 Outpatient R LIGIA PEDRO [facility] [id number] Univers 14:00:00 14:00:00 [facility] 2020-11-12 2020-11-12 Orders Doctor DUBOSE [id number] Univers 00:00:00 00:00:00 Only Unassigned, KATIE 350.1.13.10 ity of [facility] 4.2.7.2.686 Juan C as [phone] [place] [address] [address] 2020-10-25 2020-10-25 Outpatient [facility] [id number] Univers 12:45:00 12:45:00 ity of [facility] Results Test Description Test Time Test Comments Results Result Comments Source BLOOD CULTURE 2018-08-02 17:01:00 Test Item Value Reference Range Interpretation Comme nts CULTURE (BEAKER) (test code = 1095) No growth in 5 days LUPUS ANTICOAGULANT SCREEN WITH REFLEX TO [id number] 16:08:00 Test Item Value Reference Range Interpretation Comments DRVV SCREEN RATIO 1.55 <1.20 H (BEAKER) (test code = 2707) DRVV CONFIRM RATIO 0.93 (test code = 2709) DRVV NORMALIZED RATIO 1.67 <1.20 H (test code = 2710) DRVV INTERPRETATION Positive screen for (BEAKER) (test code = Lupus Anticoagulant 2706) with hexagonal phospholipid confirmation. Suggest repeat testing in 12 weeks and when patient not receiving anticoagulant therapy. PROTIME (BEAKER) (test 15.0 seconds 11.7-14.7 H code = 759) INR (BEAKER) (test code 1.2 <=5.9 = 370) PARTIAL THROMBOPLASTIN 36.1 seconds 22.5-36.0 H TIME (BEAKER) (test code = 760) PTT-LA (BEAKER) (test 45.2 32.0-41.8 H code = 0252782074) [id number] Cindy Chavira MD (BEAKER) (test code = (electronic signature) 2610) HEXAGONAL [id number] 14:08:00 Test Item Value Reference Range Interpretation Comments HEXAGONAL PHOSPHOLIPID (BEAKER) Positive (test code = 1790) BLOOD [id number] 10:01:00 Test Item Value Reference Range Interpretation Comments CULTURE (BEAKER) (test No growth in 5 days code = 1095) DOUBLE-STRANDED DNA (DSDNA) [id number] 05:52:00 Test Item Value Reference Range Interpretation Comments ANTI-DNA DS (BEAKER) (test code = Negative 1055) CARDIOLIPIN ANTIBODIES, IGG AND [id number] 15:01:00 Test Item Value Reference Range Interpretation Comments ANTICARDIOLIPIN IGG ANTIBODY ([facility]) < GPL <20.0 (test code = 712) ANTICARDIOLIPIN IGM ANTIBODY ([facility]) 2.1 MPL <20.0 (test code = 713) Anticardiolipin IgG Result Interpretation: <20.0 GPL Normal>/= 20.0 GPL PositiveAnticardiolipin IgM Result Interpretation: <20.0 MPL Normal>/= 20.0 MPL PositiveCALCIUM, [id number] 05:12:00 Test Item Value Reference Range Interpretation Comments CALCIUM IONIZED ([facility]) (test 1.01 mmol/L 1.12-1.27 L code = 698) PH, BLOOD ([facility]) (test code = 7.45 1810) POCT-GLUCOSE [id number] 21:30:00 Test Item Value Reference Range Interpretation Comments POC-GLUCOSE METER 116 mg/dL 70-110 H TESTED AT [place] [address] ([facility]) (test code = JOB Osei [facility] 1538) [address] POCT-GLUCOSE [id number] 17:32:00 Test Item Value Reference Range Interpretation Comments POC-GLUCOSE METER 125 mg/dL 70-110 H TESTED AT [place] [address] ([facility]) (test code = JOB Osei [facility] 1538) [address] POCT-GLUCOSE [id number] 11:28:00 Test Item Value Reference Range Interpretation Comments POC-GLUCOSE METER 115 mg/dL 70-110 H TESTED AT [place] [address] ([facility]) (test code = JOB Osei [facility] 1538) [address] POCT-GLUCOSE [id number] 07:41:00 Test Item Value Reference Range Interpretation Comments POC-GLUCOSE METER 108 mg/dL 70-110 TESTED AT [place] [address] ([facility]) ([facility] 1538) [address] [id number] 07:06:00 Test Item Value Reference Range Interpretation Comments MAGNESIUM ([facility]) 1.8 mg/dL 1.6-2.6 Specimen slightly (test code = 627) hemolyzed [id number] 07:06:00 Test Item Value Reference Range Interpretation Comments PHOSPHORUS (BEAKER) 2.4 mg/dL 2.3-4.7 Specimen slightly (test code = 604) hemolyzed COMPREHENSIVE METABOLIC [id number] 07:06:00 Test Item Value Reference Range Interpretation [...] APPLICABLE FOR DIALYSIS PATIEN TS. HEPATIC FUNCTION [id number] 07:06:00 Test Item Value Reference Range Interpretation [...] slightly (test code = 347) hemolyzed CALCIUM, [id number] 06:42:00 Test Item Value Reference Range Interpretation Comments CALCIUM IONIZED (BEAKER) (test 1.16 mmol/L 1.12-1.27 code = 698) PH, BLOOD (BEAKER) (test code = 7.42 1810) CBC W/PLT COUNT & AUTO [id number] 05:10:00 Test Item Value Reference Range Interpretation [...] PERCENT (BEAKER) (test code = 2801) POCT-GLUCOSE [id number] 23:12:00 Test Item Value Reference Range Interpretation Comments POC-GLUCOSE METER 95 mg/dL 70-110 TESTED AT [place] [address] ([facility] (test code = [facility] [address] 1538) POCT-GLUCOSE [id number] 18:51:00 Test Item Value Reference Range Interpretation Comments POC-GLUCOSE METER 118 mg/dL 70-110 H TESTED AT [place] [address] ([facility] (test code = [facility] 1538) [address] HEMOGLOBIN AND [id number] 16:28:00 Test Item Value Reference Range Interpretation Comments HEMOGLOBIN (BEAKER) (test code = 8.7 GM/DL 11.2-15.7 L 410) HEMATOCRIT (BEAKER) (test code = 27.8 % 34.1-44.9 L 411) POCT-GLUCOSE [id number] 15:00:00 Test Item Value Reference Range Interpretation Comments POC-GLUCOSE METER 140 mg/dL 70-110 H TESTED AT [place] [address] ([facility]) (test code = JOB Osei [facility] 1538) [address] POCT-GLUCOSE [id number] 14:46:00 Test Item Value Reference Range Interpretation Comments POC-GLUCOSE METER 44 mg/dL 70-110 L Notified Sea Amos MD/TESTED AT ([facility]) (test code = [place] [address] [place] 1538) [facility] [address] POCT-GLUCOSE [id number] 13:05:00 Test Item Value Reference Range Interpretation Comments POC-GLUCOSE METER 87 mg/dL 70-110 TESTED AT [place] [address] ([facility]) (test code = JOB Osei [facility] [address] 1538) POCT-GLUCOSE [id number] 11:57:00 Test Item Value Reference Range Interpretation Comments POC-GLUCOSE METER 65 mg/dL 70-110 L Notified Sea Amos MD/TESTED AT ([facility]) (test code = [place] [address] [facility] 1538) [facility] [address] VANCOMYCIN LEVEL, [id number] 10:58:00 Test Item Value Reference Range Interpretation Comments VANCOMYCIN TROUGH ([facility]) (test 14.2 ug/mL 10.0-20.0 code = 522) RAD, ABDOMEN/KUB, 1 VIEW [id number] 09:41:00Reason for exam:->abdominal painFINAL REPORT AP abdomen, two images HISTORY: Abdominal pain COMPARISON: 07/28/2013 IMPRESSION:Grossly nonobstructive bowel gas pattern. Intact skeleton. Signed: Vikas Guillen MDReport Verified Date/Time: 07/30/2018 09:41:59 Reading Location: [facility] B1 C013X Ortho Consult Reading Room -GLUCOSE [id number] 07:59:00 Test Item Value Reference Range Interpretation Comments POC-GLUCOSE METER 87 mg/dL 70-110 TESTED AT [place] [address] ([facility]) (test code = JOB Osei [facility] [address] 1538) CALCIUM, [id number] 06:53:00 Test Item Value Reference Range Interpretation Comments CALCIUM IONIZED ([facility]) (test 1.12 mmol/L 1.12-1.27 code = 698) PH, BLOOD (BEAKER) (test code = 7.44 1810) [id number] 06:38:00 Test Item Value Reference Range Interpretation Comments PHOSPHORUS (BEAKER) (test code = 2.7 mg/dL 2.3-4.7 604) [id number] 06:38:00 Test Item Value Reference Range Interpretation Comments MAGNESIUM (BEAKER) (test code = 1.6 mg/dL 1.6-2.6 627) HEPATIC FUNCTION [id number] 06:38:00 Test Item Value Reference Range Interpretation [...] = 9 U/L 6-55 347) COMPREHENSIVE METABOLIC [id number] 06:38:00 Test Item Value Reference Range Interpretation [...] PATIEN TS. CBC W/PLT COUNT & AUTO [id number] 06:11:00 Test Item Value Reference Range Interpretation [...] PERCENT (BEAKER) (test code = 2801) POCT-GLUCOSE [id number] 21:38:00 Test Item Value Reference Range Interpretation Comments POC-GLUCOSE METER 96 mg/dL 70-110 TESTED AT [place] [address] ([facility]) (test code = [facility] [address] 1538) POCT-GLUCOSE [id number] 18:19:00 Test Item Value Reference Range Interpretation Comments POC-GLUCOSE METER 121 mg/dL 70-110 H TESTED AT [place] [address] ([facility]) (test code = [facility] 1538) [address] T4, [id number] 12:35:00 Test Item Value Reference Range Interpretation Comments FREE T4 (BEAKER) (test code = 655) 1.25 ng/dL 0.70-1.48 POCT-GLUCOSE [id number] 12:27:00 Test Item Value Reference Range Interpretation Comments POC-GLUCOSE METER 127 mg/dL 70-110 H TESTED AT [place] [address] ([facility]) (test code = [facility] 1538) [address] TSH/FREE T4 IF [id number] 12:07:00 Test Item Value Reference Range Interpretation Comments THYROID STIMULATING HORMONE 0.25 uIU/mL 0.35-4.94 L ([facility] (test code = 772) [id number] 12:07:00 Test Item Value Reference Range Interpretation Comments THYROID STIMULATING HORMONE 0.25 uIU/mL 0.35-4.94 L (BEAKER) (test code = 772) LACTIC ACID, VENOUS, WHOLE [id number] 11:35:00 Test Item Value Reference Range Interpretation Comments LACTATE BLOOD VENOUS 0.6 mmol/L 0.5-2.2 Specime n slightly (2) (BEAKER) (test hemolyzed code = 0262) VANCOMYCIN LEVEL, [id number] 07:11:00 Test Item Value Reference Range Interpretation Comments VANCOMYCIN RANDOM (BEAKER) (test 17.9 ug/mL code = 523) Reference Range: No [id number] 07:09:00 Test Item Value Reference Range Interpretation Comments PHOSPHORUS (BEAKER) (test code = 3.9 mg/dL 2.3-4.7 604) [id number] 07:09:00 Test Item Value Reference Range Interpretation Comments MAGNESIUM (BEAKER) (test code = 1.7 mg/dL 1.6-2.6 627) BASIC METABOLIC [id number] 07:09:00 Test Item Value Reference Range Interpretation [...] APPLICABLE FOR DIALYSIS PATIEN TS. HEPATIC FUNCTION [id number] 07:09:00 Test Item Value Reference Range Interpretation [...] code = 10 U/L 6-55 347) TROPONIN [id number] 06:54:00 Test Item Value Reference Range Interpretation Comments TROPONIN I (BEAKER) (test code = 0.08 ng/mL 0.00-0.03 H 397) LACTIC ACID, VENOUS, WHOLE [id number] 06:45:00 Test Item Value Reference Range Interpretation Comments LACTATE BLOOD VENOUS 0.8 mmol/L 0.5-2.2 Specime n slightly (2) (BEAKER) (test hemolyzed code = 4282) CBC W/PLT COUNT & AUTO [id number] 06:00:00 Test Item Value Reference Range Interpretation [...] PERCENT (BEAKER) (test code = 2801) CALCIUM, [id number] 05:58:00 Test Item Value Reference Range Interpretation Comments CALCIUM IONIZED (BEAKER) (test 1.12 mmol/L 1.12-1.27 code = 698) PH, BLOOD (BEAKER) (test code = 7.39 1810) EOSINOPHIL SMEAR, [id number] 20:17:00 Test Item Value Reference Range Interpretation Comments EOSINOPHIL SMEAR, URINE (BEAKER) No EOS seen No EOS seen (test code = 1851) BASIC METABOLIC [id number] 20:01:00 Test Item Value Reference Range Interpretation [...] DIALYSIS PATIEN TS. LACTIC ACID, VENOUS, WHOLE [id number] 19:59:00 Test Item Value Reference Range Interpretation Comments LACTATE BLOOD VENOUS 0.8 mmol/L 0.5-2.2 Specime n slightly (2) (BEAKER) (test hemolyzed code = 2872) CT, BRAIN/STROKE [id number] 19:59:00Stroke Protocol. Phone/Page MD for reporting.Reason for [...] on 07/28/2018 at 1955. Signed: Travis Fink MDReport Verified Date/Time: 07/28/2018 19:59:01 Reading Location: [facility] Radiology Reading Room [id number] 19:51:00 Test Item Value Reference Range Interpretation Comments PARTIAL THROMBOPLASTIN TIME 33.1 seconds 22.5-36.0 (BEAKER) (test code = 760) PROTHROMBIN [id number] 19:50:00 Test Item Value Reference Range Interpretation Comments PROTIME (BEAKER) (test code = 15.6 seconds 11.7-14.7 H 759) INR (BEAKER) (test code = 370) 1.2 <=5.9 RECOMMENDED COUMADIN/WARFARIN INR THERAPY RANGESSTANDARD DOSE: 2.0 - 3.0 Includes: PROPHYLAXIS for venous thrombosis, systemic embolization; TREATMENT for venous thrombosis and/or pulmonary embolus.HIGH RISK: Target INR is 2.5-3.5 for patients with mechanical heart valves.HEMOGLOBIN AND [id number] 19:41:00 Test Item Value Reference Range Interpretation Comments HEMOGLOBIN (BEAKER) (test code = 11.3 GM/DL 11.2-15.7 410) HEMATOCRIT (BEAKER) (test code = 35.4 % 34.1-44.9 411) CBC W/PLT COUNT & AUTO [id number] 19:41:00 Test Item Value Reference Range Interpretation [...] PERCENT (BEAKER) (test code = 2801) TROPONIN [id number] 19:26:00 Test Item Value Reference Range Interpretation Comments TROPONIN I (BEAKER) (test code = 0.11 ng/mL 0.00-0.03 H 397) PROTEIN, RANDOM [id number] 19:19:00 Test Item Value Reference Range Interpretation Comments PROTEIN, URINE (BEAKER) (test code 325 mg/dL 0-14 H = 1569) POCT-GLUCOSE [id number] 19:00:00 Test Item Value Reference Range Interpretation Comments POC-GLUCOSE METER 158 mg/dL 70-110 H TESTED AT [facility] 6720 (BEAKER) (test code = JOB [place] 1538) [address] CREATININE, RANDOM [id number] 18:52:00 Test Item Value Reference Range Interpretation Comments CREATININE URINE (BEAKER) (test 95.8 mg/dL code = 375) Reference Range: No NormalsSODIUM, RANDOM [id number] 18:52:00 Test Item Value Reference Range Interpretation Comments SODIUM URINE (BEAKER) (test code = 28 meq/L 243) Reference Range: No NormalsURINALYSIS W/ [id number] 18:02:00 Test Item Value Reference Range Interpretation [...] SOURCE(BEAKER) (test code Urine, Clean Catch = 4855) POCT-GLUCOSE [id number] 17:21:00 Test Item Value Reference Range Interpretation Comments POC-GLUCOSE METER 137 mg/dL 70-110 H TESTED AT [facility] 6720 (BEAKER) (test code = JOB SIEGEL 1538) [address] BASIC METABOLIC [id number] 17:14:00 Test Item Value Reference Range Interpretation [...] APPLICABLE FOR DIALYSIS PATIEN TS. Call results [id number] ACID, VENOUS, WHOLE [id number] 14:19:00 Test Item Value Reference Range Interpretation Comments LACTATE BLOOD VENOUS (2) (BEAKER) 1.1 mmol/L 0.5-2.2 (test code = 2872) THROMBIN [id number] 13:02:00 Test Item Value Reference Range Interpretation Comments THROMBIN TIME (BEAKER) (test code = 17.8 secs 13.8-20.0 550) [id number] 13:01:00 Test Item Value Reference Range Interpretation Comments PROCALCITONIN (BEAKER) (test code 0.09 ng/mL <0.05 H = 3036) SEPSIS RISK (ng/mL)Low: 0.05-0.50Intermediate: 0.51-2.00High: >=2.011:1 MIXING STUDY, [id number] 12:38:00 Test Item Value Reference Range Interpretation Comments PROTIME (BEAKER) (test code = 15.0 seconds 11.7-14.7 H 759) PARTIAL THROMBOPLASTIN TIME 36.1 seconds 22.5-36.0 H (BEAKER) (test code = 760) PT 1/1 MIX (BEAKER) (test code = 14.4 SECS 11.7-14.7 1595) PTT 1/1 MIX (BEAKER) (test code 35.5 SECS 22.5-36.0 = 1596) TROPONIN [id number] 12:01:00 Test Item Value Reference Range Interpretation Comments TROPONIN I (BEAKER) (test code = 0.13 ng/mL 0.00-0.03 H 397) HCG, QUANTITATIVE, [id number] 11:58:00 Test Item Value Reference Range Interpretation Comments GONADOTROPIN, CHORIONIC (HCG) QUANT < mIU/mL 0-10 (BEAKER) (test code = 649) Non- Females: <10 mIU/mL Females: Gestation Age Reference Range(mIU/mL) 0.2-1 Week 5-50 1-2 Weeks 50-500 2-3 Weeks 100-5,000 3-4 Weeks 500-10,000 4-5 Weeks 1,000-50,000 5-6 Weeks 10,000-100,000 6-8 Weeks 15,000- 200,000 2-3 Months 10,000-100,[id number] 11:55:00 Test Item Value Reference Range Interpretation Comments LIPASE (BEAKER) (test code = 749) 31 U/L 8-78 [id number] 11:55:00 Test Item Value Reference Range Interpretation Comments AMYLASE (BEAKER) (test code = 349) 101 U/L 25-125 COMPREHENSIVE METABOLIC [id number] 11:55:00 Test Item Value Reference Range Interpretation [...] NOT APPLICABLE FOR DIALYSIS PATIEN TS. C-REACTIVE [id number] 11:55:00 Test Item Value Reference Range Interpretation Comments C-REACTIVE PROTEIN (BEAKER) (test 0.42 mg/dL 0.00-0.50 code = 676) LACTIC ACID, VENOUS, WHOLE [id number] 11:51:00 Test Item Value Reference Range Interpretation Comments LACTATE BLOOD VENOUS 1.5 mmol/L 0.5-2.2 Specime n slightly (2) (BEAKER) (test hemolyzed code = 2640) [id number] 11:44:00 Test Item Value Reference Range Interpretation Comments PARTIAL THROMBOPLASTIN TIME 35.4 seconds 22.5-36.0 (BEAKER) (test code = 760) CBC W/PLT COUNT & AUTO [id number] 11:30:00 Test Item Value Reference Range Interpretation [...] PERCENT (BEAKER) (test code = 2801) POCT-GLUCOSE [id number] 11:20:00 Test Item Value Reference Range Interpretation Comments POC-GLUCOSE METER 167 mg/dL 70-110 H TESTED AT [facility] 6720 (BEAKER) (test code = JOB SIEGEL 1538) [address] HEMOGLOBIN [id number] 11:15:00 Test Item Value Reference Range Interpretation Comments HEMOGLOBIN A1C (BEAKER) (test code = 5.6 % 4.3-6.1 368) PROTHROMBIN [id number] 08:24:00 Test Item Value Reference Range Interpretation Comments PROTIME (AMINAH) (test code = 15.3 seconds 11.7-14.7 H 759) INR (AMINAH) (test code = 370) 1.2 <=5.9 RECOMMENDED COUMADIN/WARFARIN INR THERAPY RANGESSTANDARD DOSE: 2.0 - 3.0 Includes: PROPHYLAXIS for venous thrombosis, systemic embolization; TREATMENT for venous thrombosis and/or pulmonary embolus.HIGH RISK: Target INR is 2.5-3.5 for patients with mechanical heart valves.RAD, ABDOMEN/KUB, 1 VIEW [id number] 08:13:00Reason for exam:->abdominal painFINAL REPORT INDICATION:Abdominal pain. [...] is recommended. Signed: Lionel Ruiz Verified Date/Time: 07/28/2018 08:13:33 Reading Location: [address] Ortho Consult Reading Room ONIN [id number] 08:11:00 Test Item Value Reference Range Interpretation Comments TROPONIN I (AMINAH) (test code = 0.05 ng/mL 0.00-0.03 H 397) RAD, CHEST, 1 VIEW, NON [id number] 08:10:00Reason for exam:->chest painShould this be performed at the bedside?->YesFINAL REPORT RAD, CHEST, 1 VIEW, NON DEPT INDICATION: chest pain COMPARISON: Prior day's exam FINDINGS: Portable frontal view of the chest. IMPRESSION: Support Lines: None. Lungs and pleura: Clear lungs. No effusion. No pneumothorax.Heart and mediastinum: Unremarkable contours.Additional findings: None. Signed: JR Maya Robert MDReport Verified Date/Time: 07/28/2018 08:10:51 Reading Location: [facility] Reading Room BASIC METABOLIC [id number] 08:08:00 Test Item Value Reference Range Interpretation [...] S NOT APPLICABLE FOR DIALYSIS PATIEN TS. [id number] 08:04:00 Test Item Value Reference Range Interpretation Comments LIPASE (BEAKER) (test code = 749) 12 U/L 8-78 HEPATIC FUNCTION [id number] 08:04:00 Test Item Value Reference Range Interpretation [...] (test code = 347) hemolyzed COMPLEMENT COMPONENT [id number] 08:03:00 Test Item Value Reference Range Interpretation Comments C4 COMPLEMENT (BEAKER) (test code = 25 mg/dL 15-57 394) COMPLEMENT COMPONENT [id number] 08:03:00 Test Item Value Reference Range Interpretation Comments C3 COMPLEMENT (BEAKER) (test code = 125 mg/dL 82-193 393) POCT-BLOOD GASES, [id number] 07:57:00 Test Item Value Reference Range Interpretation Comments TEMP, CELSIUS-POC 37.0 (BEAKER) (test code = 1834) FIO2-POC (BEAKER) TESTED AT [place] [address] (test code = 1835) [facility] [address] PH, ARTERIAL-POC 7.416 7.350-7.450 (BEAKER) (test code [...] L ARTERIAL-POC (BEAKER) (test code = 1841) [id number] 07:57:00 Test Item Value Reference Range Interpretation Comments POC-SODIUM (BEAKER) 146 meq/L 135-148 TESTED A T [facility] [address]20 (test code = 1542) [facility] [address] [id number] 07:57:00 Test Item Value Reference Range Interpretation Comments POC-POTASSIUM 2.7 meq/L 3.6-5.5 L TESTED AT [facility] 6720 (BEAKER) (test code [facility] [address] = 1540) [id number] 07:57:00 Test Item Value Reference Range Interpretation Comments POC-GLUCOSE (BEAKER) 176 mg/dL 70-110 H TESTED AT [place] [address] (test code = 1855) [facility] [address] POCT-CALCIUM [id number] 07:57:00 Test Item Value Reference Range Interpretation Comments POC-CALCIUM IONIZED 1.15 mmol/L 1.12-1.27 TESTED A T [place] [address] (BEAKER) (test code = [facility] Sea [facility] 1536) [id number] 07:57:00 Test Item Value Reference Range Interpretation Comments POC-HEMATOCRIT 38 % 36-45 TESTED AT [place] [address] ([facility] (test code = [facility] Sea [facility] [address] 1857) [id number] 07:57:00 Test Item Value Reference Range Interpretation Comments POC-HEMOGLOBIN 12.9 g/dL 12.0-15.0 TESTED AT [place] [address] ([facility]) (test code [facility] = 1856) [id number] AT [place] [address] [facility] [address] POCT-LACTIC ACID, [id number] 07:57:00 Test Item Value Reference Range Interpretation Comments POC-LACTIC ACID, 3.3 mmol/L 0.9-1.7 H TESTED AT [place] [address] [place] ([facility]) (test [facility] Sea [facility] code = 2805) [address] CBC W/PLT COUNT & AUTO [id number] 07:47:00 Test Item Value Reference Range Interpretation Comments WHITE BLOOD CELL COUNT (AKER) 9.6 K/ L 3.5-10.5 (test code = 775) RED BLOOD CELL COUNT (AKER) 4.78 M/ L 3.93-5.22 (test code = 761) HEMOGLOBIN (BEAKER) (test code = 12.2 GM/DL 11.2-15.7 410) HEMATOCRIT (AKER) (test code = 39.2 % 34.1-44.9 411) MEAN CORPUSCULAR VOLUME ([facility]) 82.0 fL 79.4-94.8 (test code = 753) [...]
[2022-07-14] MEDS ORDERED: NA CHLORIDE 0.9% 1,000 ML ONE (22:22)
[2022-07-14] MEDS ORDERED: FENTANYL CITR 100 MCG/2 ML ONE (22:22)
[2022-07-14 23:58] LABS: Absolute Lymphocytes (CBC) 1.3 K/uL (0.7-4.9); Hematocrit 33.6 % (36.0-45.0); Lymphocytes % 20.3 % (15.3-44.8); MCV 84.1 fL (80-100); MPV 6.9 fL (7.6-11.3); RBC Red Blood Cell Count 3.99 M/uL (3.86-4.86)
[2022-07-15 00:14] LABS: Bilirubin Total 0.4 mg/dL (0.2-1.0); Potassium 3.6 mmol/L (3.5-5.1); Protein, Total 7.5 g/dL (6.4-8.2)
[2022-07-15] MEDS ORDERED: METOCLOPRAMIDE 10 MG/2mL INJ ONE (00:42)
[2022-07-15] MEDS ORDERED: DIPHENHYDRAMINE 50 MG/ML VIAL ONE (01:09)
--- NOTE | 2022-07-15 01:55 | EDPHYS ---
Physician Documentation [facility] Eulalio Name: Babs Younger Age: 51 yrs Sex: Female : 1970 Arrival Date: 07/14/2022 Time: 20:45 Bed 16 Private MD: GENARO Physician Wily Mendoza HPI: 07/14 23:33 This 51 yrs old Black Female presents to ER via Ambulatory with complaints of Diarrhea, rt Flank Pain, Abdominal Pain. 23:33 The patient presents to the emergency department with nausea, vomiting, diarrhea. rt Onset: The symptoms/episode began/occurred gradually, 1 week(s) ago. The symptoms are aggravated by nothing. The symptoms are alleviated by nothing. Associated signs and symptoms: Pertinent positives: abdominal pain. Severity of symptoms: At their worst the symptoms were moderate. Patient presents to the ED with diarrhea for 1 week, no hematemesis. It was unrelieved with. She reported an aching left-sided abdominal pain radiating to the flank. She states that her doctor was concerned for colitis. Denies other acute complaints at this time, symptoms are moderate in severity, no other aggravating or alleviating factors.. 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 - Family history:: not pertinent. ROS: 23:33 Constitutional: Negative for fever, chills, and weight loss, Eyes: Negative for injury, rt pain, redness, and discharge, ENT: Negative for injury, pain, and discharge, Neck: Negative for injury, pain, and swelling, Cardiovascular: Negative for chest pain, palpitations, and edema, Respiratory: Negative for shortness of breath, cough, wheezing, and pleuritic chest pain, MS/Extremity: Negative for injury and deformity, Skin: Negative for injury, rash, and discoloration, Neuro: Negative for headache, weakness, numbness, tingling, and seizure, Psych: Negative for depression, anxiety, suicide ideation, homicidal ideation, and hallucinations. 23:33 Abdomen/GI: Positive for abdominal pain, diarrhea. Exam: 23:33 Constitutional: This is a well developed, well nourished patient who is awake, alert, rt and in no acute distress. Head/Face: Normocephalic, atraumatic. Eyes: Pupils equal round and reactive to light, extra-ocular motions intact. Lids and lashes normal. Conjunctiva and sclera are non-icteric and not injected. Cornea within normal limits. Periorbital areas with no swelling, redness, or edema. ENT: Nares patent. No nasal discharge, no septal abnormalities noted. Tympanic membranes are normal and external auditory canals are clear. Oropharynx with no redness, swelling, or masses, exudates, or evidence of obstruction, uvula midline. Mucous membranes moist. Chest/axilla: Normal chest wall appearance and motion. Nontender with no deformity. No lesions are appreciated. Cardiovascular: Regular rate and rhythm with a normal S1 and S2. No gallops, murmurs, or rubs. Normal PMI, no JVD. No pulse deficits. Respiratory: Lungs have equal breath sounds bilaterally, clear to auscultation and percussion. No rales, rhonchi or wheezes noted. No increased work of breathing, no retractions or nasal flaring. Skin: Warm, dry with normal turgor. Normal color with no rashes, no lesions, and no evidence of cellulitis. MS/ Extremity: Pulses equal, no cyanosis. Neurovascular intact. Full, normal range of motion. Neuro: Awake and alert, GCS 15, oriented to person, place, time, and situation. Cranial nerves II-XII grossly intact. Motor strength 5/5 in all extremities. Sensory grossly intact. Cerebellar exam normal. Normal gait. Psych: Awake, alert, with orientation to person, place and time. Behavior, mood, and affect are within normal limits. 23:33 Abdomen/GI: Tenderness to the left lower quadrant with mild guarding, no rebound, no abdominal distention. Vital Signs: 21:30 Weight 90.72 kg; Height 5 ft. 2 in. (157.48 cm); Pain 7/10; vc1 21:46 BP 187 / 100; Pulse 79; Resp 17; Temp 98.2; Pulse Ox 100% ; vc1 23:45 BP 208 / 124; Pulse 78; Resp 17 S; Pulse Ox 98% on R/A; aa9 07/15 00:00 BP 222 / 112; Pulse 80; Resp 16 S; Pulse Ox 98% on R/A; 00:40 BP 224 / 118; Pulse 84; Resp 16 S; Pulse Ox 98% ; aa9 07/14 21:30 Body Mass Index 36.58 (90.72 kg, 157.48 cm) vc1 MDM: 07/14 21:34 Patient medically screened. rt 07/15 03:33 Differential diagnosis: pancreatitis, appendicitis, diverticulitis. Data reviewed: rt vital signs, nurses notes, old medical records, radiologic studies. ED course: Presents to the ED with abdominal pain, diarrhea. She has mild tenderness. CT scan was obtained that shows no evidence of colitis. However, given the length of time of the diarrhea, will treat with Cipro and Flagyl. Symptoms are improved with treatment in the ED. Labs are benign, no evidence of DAE. Stable for outpatient care, return precautions discussed.. 07/14 21:54 Order name: CBC with Diff; Complete Time: 00:17 rt 07/14 21:54 Order name: CMP; Complete Time: 00:17 rt 07/14 21:54 Order name: Lipase; Complete Time: 00:17 rt 07/14 21:54 Order name: CT Abd/Pelvis - Without Contrast rt 07/14 21:54 Order name: IV Saline Lock; Complete Time: 23:52 rt 07/14 21:54 Order name: Labs collected and sent; Complete Time: 23:52 rt Administered Medications: 07/14 23:51 Drug: fentaNYL (PF) 50 mcg {Note: left breast.} Route: IVP; Site: Other; aa9 07/15 00:41 Follow up: Response: No adverse reaction; RASS: Alert and Calm (0) aa9 07/14 23:52 Drug: NS 0.9% 1000 ml {Note: left breast.} Route: IV; Rate: 1 bolus; Site: Other; aa9 07/15 00:46 Drug: Reglan (metoCLOPramide) 10 mg {Note: left breast.} Route: IVP; Site: Other; 01:18 Follow up: Response: Adverse reaction, Physician notified 01:11 Drug: Benadryl (diphenhydrAMINE) 50 mg {Note: LEFT BREAST.} Route: IVP; Site: Other; aa9 01:18 Follow up: Response: Marked relief of symptoms aa9 Disposition Summary: 07/15/22 01:54 Discharge Ordered Location: Home rt Problem: new rt Symptoms: have improved rt Condition: Stable rt Diagnosis - Diarrhea, unspecified rt Followup: rt - With: Private Physician - When: 2 - 3 days - Reason: Recheck today's complaints Discharge Instructions: - Discharge Summary Sheet rt - Diarrhea, Adult rt Forms: - Medication Reconciliation Form rt - Thank You Letter rt - Antibiotic Education rt - Prescription Opioid Use rt Prescriptions: - Flagyl 500 mg Oral Tablet - take 1 tablet by ORAL route every 12 hours for 7 days; 14 tablet; Refills: 0, rt Product Selection Permitted - Cipro 500 mg Oral Tablet - take 1 tablet by ORAL route every 12 hours for 7 days; 14 tablet; Refills: 0, rt Product Selection Permitted Signatures: Dispatcher [employer] Maria L Yung RN RN vc1 Sunitha Roper RN RN aa9 Wily Mendoza MD MD rt
--- NOTE | 2022-07-15 01:55 | ER ---
Nurse's Notes [facility] Juan Manuel Name: Babs Younger Age: 51 yrs Sex: Female : 1970 Arrival Date: 07/14/2022 Time: 20:45 Bed 16 Private MD: Diagnosis: Diarrhea, unspecified Presentation: 07/14 21:30 Chief complaint: Patient states: "I have had diarrhea for the last 7 days, I thought it vc1 would go away but it hasn't. My stomach also hurts so bad and now its spread to my back.". Ebola Screen: No symptoms or risks identified at this time. Risk Assessment: Do you want to hurt yourself or someone else? Patient reports no desire to harm self or others. Onset of symptoms was July 07, 2022. 21:30 Method Of Arrival: Ambulatory vc1 21:30 Acuity: ELVA 3 vc1 21:46 Initial Sepsis Screen: Does the patient meet any 2 criteria? No. Patient's initial vc1 sepsis screen is negative. Does the patient have a suspected source of infection? Yes: Acute abdominal pain. Triage Assessment: 21:36 General: Appears in no apparent distress. uncomfortable, Behavior is calm, cooperative, vc1 appropriate for age. Pain: Complains of pain in left lower quadrant Pain radiates to left low back Pain currently is 7 out of 10 on a pain scale. Neuro: Level of Consciousness is awake, alert, obeys commands, Oriented to person, place, time, situation, Appropriate for age. Cardiovascular: No deficits noted. Respiratory: Airway is patent Respiratory effort is even, unlabored, Respiratory pattern is regular, symmetrical. GI: Abdomen is flat, non-distended. : No deficits noted. Derm: No deficits noted. No signs and/or symptoms reported regarding the dermatologic system. Musculoskeletal: No deficits noted. No signs and/or symptoms reported regarding the musculoskeletal system. 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 - Family history:: not pertinent. Screenin:36 Abuse screen: Denies threats or abuse. Nutritional screening: No deficits noted. vc1 Tuberculosis screening: No symptoms or risk factors identified. Fall Risk None identified. Assessment: 23:00 General: Appears comfortable, well groomed, Behavior is calm, cooperative, appropriate aa9 for age. Pain: Complains of pain in left lower quadrant Also complains of diarrhea. Neuro: Level of Consciousness is awake, alert, obeys commands, Oriented to person, place, time, situation. Cardiovascular: Patient's skin is warm and dry. Respiratory: Airway is patent Respiratory effort is even, unlabored. GI: Abdomen is obese, Reports diarrhea, Patient currently denies nausea, vomiting. : No signs and/or symptoms were reported regarding the genitourinary system. EENT: No signs and/or symptoms were reported regarding the EENT system. Derm: Skin is intact, with poor turgor. 07/15 00:46 General: provider notified of high blood pressure readings. aa9 01:12 General: pt c/o jaw clenching due to Reglan administration, notified Reji WALTER. aa9 01:18 Reassessment: pt states jaw clenching has subsided after benadryl administration. aa9 Vital Signs: 07/14 21:30 Weight 90.72 kg; Height 5 ft. 2 in. (157.48 cm); Pain 7/10; vc1 21:46 BP 187 / 100; Pulse 79; Resp 17; Temp 98.2; Pulse Ox 100% ; vc1 23:45 BP 208 / 124; Pulse 78; Resp 17 S; Pulse Ox 98% on R/A; aa9 07/15 00:00 BP 222 / 112; Pulse 80; Resp 16 S; Pulse Ox 98% on R/A; aa9 00:40 BP 224 / 118; Pulse 84; Resp 16 S; Pulse Ox 98% ; aa9 07/14 21:30 Body Mass Index 36.58 (90.72 kg, 157.48 cm) vc1 ED Course: 07/14 20:45 Patient arrived in ED. bp1 21:16 Wily Mendoza MD is Attending Physician. rt 21:31 Triage completed. vc1 21:37 Arm band placed on right wrist. vc1 21:47 Patient has correct armband on for positive identification. Placed in gown. Bed in low vc1 position. Call light in reach. Side rails up X2. Pulse ox on. NIBP on. 22:00 Sunitha Roper, RN is Primary Nurse. aa9 22:34 Missed attempt(s): 22 gauge in right hand. Bleeding controlled, band aid applied, aa9 catheter tip intact. 22:48 CT Abd/Pelvis - Without Contrast In Process Unspecified. EDMS 23:40 Inserted saline lock: 22 gauge in right ,using aseptic technique. breast Blood aa9 collected. 23:52 CBC with Diff Sent. aa9 23:52 CMP Sent. aa9 23:52 Lipase Sent. aa9 Administered Medications: 23:51 Drug: fentaNYL (PF) 50 mcg {Note: left breast.} Route: IVP; Site: Other; aa9 07/15 00:41 Follow up: Response: No adverse reaction; RASS: Alert and Calm (0) aa9 07/14 23:52 Drug: NS 0.9% 1000 ml {Note: left breast.} Route: IV; Rate: 1 bolus; Site: Other; aa9 07/15 00:46 Drug: Reglan (metoCLOPramide) 10 mg {Note: left breast.} Route: IVP; Site: Other; aa9 01:18 Follow up: Response: Adverse reaction, Physician notified 01:11 Drug: Benadryl (diphenhydrAMINE) 50 mg {Note: LEFT BREAST.} Route: IVP; Site: Other; aa9 01:18 Follow up: Response: Marked relief of symptoms aa9 Medication: 07/14 21:47 VIS not applicable for this client. vc1 Outcome: 07/15 01:54 Discharge ordered by . rt 02:07 Patient left the ED. cg Signatures: Dispatcher [employer] Yesenia Nieves, RN RN Shirley Brown Vanessa, RN RN vc1 Sunitha Roper, LUIS SMITH aa9 Wily Mendoza MD MD rt
[2022-07-15 02:31] VITALS: TEMP 98.2
[2022-07-15 02:32] VITALS: O2SAT 98
[2022-07-15 02:34] VITALS: BP 224/118
--- NOTE | 2022-07-15 12:04 | RAD REPORT ---
EXAM DESCRIPTION: ADDENDUM #1 Sclerosis of the bilateral femoral head suggesting avascular necrosis. No acute fracture. Electronically signed by: Lan Hussein MD 07/15/2022 3:26 AM SURGICAL RESIDENT End of Addendum EXAM DESCRIPTION: Abdomen Pelvis Wo Contrast CLINICAL HISTORY: 51 years Female pain, diarrhea TECHNIQUE: Non contrast CT of the abdomen and pelvis with coronal and sagittal reformats. All CT sca ns at this facility use dose modulation, iterative reconstruction, and/or weight based dosing when ap propriate to reduce radiation dose to as low as reasonably achievable. COMPARISON: None. FINDINGS: Lower chest: Lung bases are clear. Incompletely imaged small pericardial effusion and card iomegaly. Abdomen/Pelvis: Liver: Unremarkable. Gallbladder: Status post cholecystectomy. Pancreas: Within normal limits. Spleen: Within normal limits. Kidney: No stone or hydronephrosis. Adrenal glands: Within normal limits. Vascular structures: Unremarkable. Bowel: Postsurgical changes in the rectosigmoid colon. Gas and low-density material within the colon with mild distention of the ascending colon. Fluid-filled nondistended loops of small bowel. Appendix: Normal and located in the pelvis on the left. Peritoneum: No free fluid or free air. Lymph Nodes: No lymphadenopathy. Reproductive: Status post hysterectomy. Urinary bladder: Unremarkable. Osseous structures: Multilevel degenerative changes. Sclerosis of the bilateral femoral heads. Soft tissues: Unremarkable. IMPRESSION: Gas and low-density material within the colon with mild distention of the ascending colo n. Fluid-filled nondistended loops of small bowel. Findings can be seen with enteritis and diarrheal state. Electronically signed by: Lan Hussein MD 07/14/2022 11:43 PM SURGICAL RESIDENT Due to temporary technical issues with the PACS/Fluency reporting system, reports are being signed by the in house radiologists without review as a courtesy to insure prompt reporting. The interpreting radiologist is fully responsible for the content of the report.
== END 2022-07-15 02:07 | disposition home or self-care (01) ==
LOC: ER 20:41
DX: R19.7 Diarrhea, unspecified (principal); E11.22 Type 2 diabetes mellitus with diabetic chronic kidney disease; I12.0 Hypertensive chronic kidney disease with stage 5 chronic kidney disease or end stage renal disease; N18.6 End stage renal disease; Z88.5 Allergy status to narcotic agent; Z91.013 Allergy to seafood
CPT/HCPCS: 85025; 36415; 83690; 80053; 74176; 96375; 96374; 99284; J2765; J1200; J3010; J7030

== ENCOUNTER 2023-01-03 19:07 | Inpatient (IN) | payer OTHER ==
--- OUTSIDE RECORDS SUMMARY | 2023-01-03 19:14 | XMS REPORT | Continuity of Care Document ---
:[address] [facility] t Address [address] [place] [address] Care Team Providers Name Role Phone Monico Espinoza DO Primary Care Physician [phone] .[facility] Attending Clinician Unavailable AKOSUA GRAF Attending Clinician Unavailable Akosua Graf MD Attending Clinician Naga Shepherd MD Attending Clinician Jeanna Shrestha Attending Clinician TONY GRAF Attending Clinician Unavailable Ligia Pedro MD Attending Clinician LIGIA PEDRO Attending Clinician Unavailable LIGIA PEDRO Attending Clinician Unavailable Doctor Unassigned, [place] Attending Clinician Unavailable ABEL LI Attending Clinician Unavailable ABEL LI Admitting Clinician Unavailable Payers Payer Name Policy Type Policy Number Effective Date Expiration Date Tess patel MEDICAID OF [place] [id number] 2014 00:00:00 [facility] [id number] 2017 DUAL COMPLETE 00:00:00 Problems Condition Condition Condition Status Onset Resolution Last Treating Co mments Source Name Details Category Date Date Treatment Clinician Date Hypertensi Hypertensi Disease Active 0 M ethodi ve ve 1-12 st emergency emergency 00:00: [facility] 00 l Attention Attention Disease Active 2018-08 [facility] to to 10-25 [facility] ileostomy ileostomy 00:00: [facility] 00 l Type 2 Type 2 Disease Active 2018-08 [facility] diabetes diabetes [facility] mellitus mellitus 00:00: Hospit a 00 l CKD CKD Disease Active 2018-08 [facility] (chronic (chronic 09-01 st kidney kidney 00:00: Hospita disease) disease) 00 l stage 4, stage 4, GFR 15-29 GFR 15-29 ml/min ml/min HTN HTN Disease Active 2018-08 [facility] (hypertens (hypertens -04 st ion) ion) 00:00: Hospita 00 l SLE SLE Disease Active 2018-08 [facility] (systemic (systemic 09-01 st lupus lupus 00:00: Hospita erythemato erythemato 00 l al al related related syndrome) syndrome) Rheumatoid Rheumatoid Disease Active 2018-08 M ethodi arthritis arthritis 104 st 00:00: Hospita 00 l Attention Attention Disease Active 2018-08 [facility] to to [facility] colostomy colostomy 00:00: [facility] 00 l History of History of Disease Active 2018-08 M ethodi ischemic ischemic 0-17 st colitis colitis 00:00: Hospita 00 l Systemic Systemic Disease Recurre 2017-[address] [facility] lupus lupus nce 1-30 [facility] erythemato erythemato 00:00: Me dical al al 00 Center Type 2 Type 2 Disease Recurre 2017-[address] [facility] diabetes diabetes nce 1-30 [facility] mellitus mellitus 00:00: Medica l with with 00 Center kidney kidney complicati complicati on, with on, with long-term long-term current current use of use of insulin insulin Colostomy Colostomy Disease Recurre 2017-[address] complicati complicati nce 1-30 Gilda kes on on 00:00: Medical Center Lupus Lupus Disease Recurre 2017-[address] nephritis nephritis nce 30 Luke s 00:00: [facility] Center Abdominal Abdominal Disease Active 2017-[address] [facility] pain pain 30 [facility] 00:00: Medical 00 Center Essential Essential Disease Active 2017-[address] [facility] hypertensi hypertensi -30 Gilda kes on on 00:00: Medical Center bright red bright red Disease Active 2017-[address] blood in blood in 30 [facility] colostomy colostomy 00:00: Medi valentin 00 Center HTN HTN Disease Active 2017-[address] [facility] (hypertens (hypertens 30 Gilda kes ion), ion), 00:00: Medical malignant malignant 00 Cent er DAE (acute DAE (acute Disease Active 2017-[address] kidney kidney 09-27 [facility] injury) injury) 00:00: Medical Center Hypernatre Hypernatre Disease Active 2017-[address] charisse charisse 09-27 [facility] 00:00: Medical Center Hypokalemi Hypokalemi Disease Active 2017-[address] a a 30 [facility] 00:00: Medical 00 Center Bowel Bowel Disease Active Univers obstructio obstructio 3-20 it y of n n 00:00: [place] [facility] Branch Colonic Colonic Disease Active Univers obstructio obstructio 3-19 it y of n n 00:00: [address] Branch Colostomy Colostomy Disease Active Met hodi in place in place 02-23 st 00:00: Hospita 00 l Seizure Seizure Disease Active Univers 9-21 ity of 00:00: [place] [facility] Branch Obesity Obesity Disease Recurre Univer s (BMI (BMI nce 9-20 ity of 30-39.9) 30-39.9) 00:00: [place] [facility] Branch Pulmonary Pulmonary Disease Active Uni vers edema edema 8-28 ity of 00:00: [place] [facility] Branch Systemic Systemic Disease Recurre Univ ers lupus lupus nce 2-23 ity of erythemato erythemato [place] [facility] [place] Depression Depression Disease Active U nivers , major , major 2-18 ity of 00:00: [place] [facility] DAE (acute DAE (acute Disease Active U nivers kidney kidney 2-12 ity of injury) injury) 00:00: Medical Branch HTN HTN Disease Active Univers (hypertens (hypertens 2-12 it y of ion) ion) 00:00: Medical Branch Lupus Lupus Disease Active Univers nephritis nephritis 2-11 ity of 00:00: Medical Branch Allergies, Adverse Reactions, Alerts Allergy Allergy Status Severity Reaction(s) Onset Inactive Treating Comm ents Source Name Type Date Date Clinician METOCLOP DRUG Active Swelling 2021-08 Univer s RAMIDE INGREDI 09-27 ity of 00:00: Medical Branch PREDNISO DRUG Active Other-Cmnt 2021-08 Univ ers NE INGREDI 09-27 ity of 00:00: Medical Branch Predniso Propensi Active Other - See 2021-08 Made nikki r Univers ne ty to comments 09-27 fall out ity of adverse 00:00: and [place] reaction deteriora Medic al s otf Branch teeth/bon es Metoclop Propensi Active Other - See 2021-08 "Like I Univers ramide ty to comments 09-27 was ity of adverse 00:00: having a [place] reaction 00 stroke" Medical s Branch Shellfis Propensi Active 2017-[address] [facility] [facility] ty to 1-30 [facility] Containi adverse 00:00: Medical ng reaction 00 Center Products s SHELLFIS Allergy Active 2017-[address] H 1-30 [facility] CONTAINI 00:00: Medical NG 00 Center PRODUCTS Shellfis Propensi Active 2017-[address] h ty to 1-30 [facility] Containi adverse 00:00: Medical ng reaction 00 Center Products s SHRIMP DRUG Active High Dizziness Univers INGREDI 05-17 ity of 00:00: Medical Branch Shrimp Propensi Active Dizziness nausea, [...] Un [place] INGREDI 05-13 ity of 00:00: [address] Morphine Propensi Active Palpitations Methodi ty to 05-13 st adverse 00:00: Hospita reaction 00 l s to drug Family History Family Member Diagnosis Comments Start Date Stop Date Source Natural mother Cancer [facility] Natural mother Hypertension [facility] Natural mother Uterine cancer [facility] Natural sister Diabetes [facility] Natural father Kidney disease [facility] Natural father [facility] Social History Social Habit Start Date Stop Date Quantity Comments Source History SDOH [facility] Alcohol Comment Medical C enter History SDOH [facility] Alcohol Std Drinks Medica l Center History SDOH [facility] Alcohol Binge Medical [address] [facility] Exposure to 2022 2022-07-28 Not sure [facility]-CoV-2 (event) 00:00:00 09:52:00 [facility] History of Social 2019-09-12 2019-09-[address] function 00:00:00 00:00:00 Hospital Alcohol intake 2019-08-27 2019-08-27 Current [facility] 00:00:00 00:00:00 non-drinker of Hospital alcohol (finding) History SDOH 2018-07-28 2018-07-[address] [facility] Alcohol Frequency 00:00:00 00:00:00 [facility] Tobacco use and 2016-05-13 2016-05-13 Smokeless Universit y of exposure 00:00:00 00:00:00 tobacco non-user [facility] Sex [birth year] [facility] 00:00:00 00:00:00 Hospital Smoking Status Start Date Stop Date Source Never smoked tobacco [facility] Medications Ordered Filled Start Stop Current Ordering Indication Dosage Frequency Signature Comments Components Source Medication Medication Date Date Medication? Clinician (SIG) Name Name hydralAZINE 2021-08 No 10mg 10 mg, Uni vers (APRESOLINE 09-27 Slow IV ity of ) injection 17:15: 17:10 [place] 10 mg 00 :00 ONCE, 1 Medical dose, On Branch 07/28/22 at 1115, JIMMY proMETHazin 2021-08 No 25mg 25 mg, IV Univers e 09-27 Piggyback, ity of (PHENERGAN) 17:00: 17[place]00 [place] in 00 :01 dose, On Medical NaCl 0.9% Tue Branch (NS) 50 mL 07/28/22 piggyback at 1100, 50 mL FENTanyl PF 2021-08- No 100ug 100 mcg, Univers (SUBLIMAZE 09-27 Slow IV ity o f (PF)) 17:00: 16:29 Push, [place] injection 00 :00 ONCE, 1 Medical 100 mcg dose, On Branch Tue07/28/22 at 1100, JIMMY cloNIDine 2021-08- No .3mg 0.3 mg, Univ ers (CATAPRES) 09-27 Oral, ity of tablet 0.3 16:15: 16:19 ONCE, 1 Juan C as mg 00 :00 dose, On Medical Wed Branch 07/28/22 at 1015, STAT escitalopra 2021-08 Yes 20mg Take 20 mg Univers m oxalate 09-27 by mouth ity of (LEXAPRO) 12:12: in the [place] 20 mg 20 morning. Medical tablet Branch HYDROcodone 2021-08 Yes 1{tbl} Take 1 Tab Univers -acetaminop -30 by mouth ity of hen (NORCO) 10:59: every 6 Juan C as 10-325 mg 53 (six) Medical tablet hours. Branch HYDROcodone 2021-08- No [id number] 1{tbl} Take 1 U nivers -acetaminop -30 12-08 tablet by it y of hen (NORCO) 00:00: 05:59 [place] 10-325 mg 00 :00 every 6 Medical tablet (six) Branch hours as needed for Pain (scale 1-3) for up to 7 days. Indication s: acute pain cloNIDine 2020- No .3mg 0.3 mg, Univ [...] Fri Medica l NaCl 0.9% 03/27/21 at [facility] ch (NS) 50 mL 0, 50 piggyback mL FENTanyl PF 2020- No 100ug 100 mcg, [facility] (SUBLIMAZE 03-2730 Slow IV ity o f (PF)) 07:30: 06:31 Push, [place] injection 00 :00 ONCE, 1 Medical 100 mcg dose, Fri Branch 03/27/21 at 0230, Routine amoxicillin 2020- Yes [id number] 875mg Take 1 Univers 875 mg 5-20 [id number] tablet by ity of tablet 00:00: mouth 2 [place] 00 (two) Medical times Branch daily. amoxicillin 2020-0 Yes [id number] 875mg Take 1 Univers 875 mg 5-20 02140 tablet by ity of tablet 00:00: mouth 2 [place] 00 (two) Medical times Branch daily. amoxicillin 2020- Yes [id number] 875mg Take 1 Univers 875 mg 5-20 [id number] tablet by ity of tablet 00:00: mouth 2 [place] 00 (two) Medical times Branch daily. neomycin-po 2020- No [id number] 3[drp] Place 3 [facility] lymyxin-hyd 5-20 05-28 [id number] Drops in it y of rocortisone 00:00: 04:59 right ear [place] 3.5-10,000- 00 :00 4 (four) Medi valentin 1 times Branch mg/mL-unit/ daily for mL-% otic 7 days. susp hydroxychlo 2020-0 Yes 500mg Q.5D Take 500 [...] by mouth. Jose es MG tablet 08:16: [place] [id number] Center pantoprazol 2017-08 Yes 40mg QD Take [address] e 2-04 by mouth [facility] (PROTONIX) 08:16: daily. Medic al 40 MG Center tablet doxazosin 2017-08 Yes 4mg Take [address] (CARDURA) 2 2-04 by mouth. Jose es MG tablet 08:16: [address] pantoprazol 2017-08 Yes 40mg QD Take [address] e 2-04 by mouth [facility] (PROTONIX) 08:16: daily. Medic al 40 MG 44 Center tablet doxazosin 2017-08 Yes 4mg Take [address] (CARDURA) 2 2-04 by mouth. Jose es MG tablet 08:16: [address] pantoprazol 2017-08 Yes 40mg QD Take [address] e 2-04 by mouth [facility] (PROTONIX) 08:16: daily. Medic al 40 MG 44 Center tablet doxazosin 2017-08 Yes 4mg Take [address] (CARDURA) 2 2-04 by mouth. Jose es MG tablet 08:16: [address] pantoprazol 2017-08 Yes 40mg QD Take [address] e 2-04 by mouth [facility] (PROTONIX) 08:16: daily. Medic al 40 MG 44 Center tablet doxazosin 2017-08 Yes 4mg Take [address] (CARDURA) 2 2-04 by mouth. Jose es MG tablet 08:16: [address] pantoprazol 2017-08 Yes 40mg QD Take [address] [facility] e 2-04 by mouth [facility] (PROTONIX) 08:16: daily. Medic al 40 MG 44 Center tablet zolpidem 2017-08 Yes 10mg QD Take [address] (AMBIEN) 10 1-25 by mouth Luke s mg tablet 00:00: nightly. [address] zolpidem 2017-08 Yes 10mg QD Take [address] (AMBIEN) 10 1-25 by mouth Luke s mg tablet 00:00: nightly. [address] zolpidem 2017-08 Yes 10mg QD Take [address] (AMBIEN) 10 1-25 by mouth Luke s mg tablet 00:00: nightly. [address] zolpidem 2017-08 Yes 10mg QD Take [address] (AMBIEN) 10 1-25 by mouth Luke s mg tablet 00:00: nightly. [address] zolpidem 2017-08 Yes 10mg QD Take [address] (AMBIEN) 10 1-25 by mouth Luke s mg tablet 00:00: nightly. Medi valentin 00 [...] Lukes 100 MG 00:00: Medical capsule 00 [facility] 2017-08 Yes TK [address] [facility] roquine 0-10 D [facility] (PLAQUENIL) 00:00: Medica l 200 mg 00 Center tablet gabapentin 2017-08 Yes TK [address] [facility] (NEURONTIN) 0-10 HS PRN [facility]ukes 100 MG 00:00: Medical capsule 00 [facility] 2017-08 Yes TK [address] [facility] roquine 0-10 D [facility] (PLAQUENIL) 00:00: Medica l 200 mg 00 Center tablet gabapentin 2017-08 Yes TK [address] [facility] (NEURONTIN) 0-10 HS PRN [facility] 100 MG 00:00: Medical capsule 00 [facility] 2017-08 Yes TK [address] [facility] roquine 0-10 D [facility] (PLAQUENIL) 00:00: Medica l 200 mg 00 Center tablet gabapentin 2017-08 Yes TK [address] [facility] (NEURONTIN) 0-10 HS PRN [facility] 100 MG 00:00: Medical capsule 00 [facility] 2017-08 Yes TK [address] T [address] [facility] roquine 0-10 D [facility] (PLAQUENIL) 00:00: Medica l 200 mg 00 Center tablet gabapentin 2017-08 Yes TK [address] [facility] (NEURONTIN) 0-10 HS PRN [facility] 100 MG 00:00: Medical capsule 00 [place] hydroxychlo 2017-08 Yes TK [address] [facility] roquine 0-10 D [facility] (PLAQUENIL) 00:00: Medica l 200 mg 00 Center tablet doxazosin Yes 4mg Take 4 mg Uni vers (CARDURA) 2 3-21 by mouth ity of mg tablet 20:00: daily. [place] [address] Medical Branch metoprolol 0 Yes 100mg Take 100 Un aaliyah succinate [...] mouth ity of 10 mg 20:00: daily. [place] [address] Medical Branch doxazosin 0 Yes 4mg Take 4 mg Uni vers (CARDURA) 4 3-21 by mouth ity of mg tablet 20:00: daily. [place] [address] Medical Branch zolpidem 0 Yes 10mg Take [...] mouth ity of mg tablet 20:00: daily. [place] [address] Medical Branch metoprolol 0 Yes 100mg Take 100 Un [place]aliyah succinate [...] mouth ity of 10 mg 20:00: daily. [place] tablet 52 Medical Branch doxazosin 2018-0 Yes 4mg Take 4 mg Uni vers (CARDURA) 4 3-21 by mouth ity of mg tablet 20:00: daily. [place] [address] Medical Branch zolpidem 2018-0 Yes 10mg Take [...] mouth ity of mg tablet 20:00: daily. [place] [address] Medical Branch metoprolol 2018-0 Yes 100mg Take [...] mouth ity of 10 mg 20:00: daily. [place] tablet 52 Medical Branch doxazosin 2018-0 Yes 4mg Take 4 mg Uni vers (CARDURA) 4 3-21 by mouth ity of mg tablet 20:00: daily. [place] [address] Medical Branch zolpidem 2018-0 Yes 10mg Take [...] mouth ity of mg tablet 20:00: daily. [place] [address] Medical Branch metoprolol 2018-0 Yes 100mg Take [...] mouth ity of 10 mg 20:00: daily. [place] tablet Medical Branch doxazosin 2018-0 Yes 4mg Take 4 mg Uni vers (CARDURA) 4 3-21 by mouth ity of mg tablet 20:00: daily. [place] [address] Medical Branch zolpidem 2018-0 Yes 10mg Take [...] mouth ity of mg tablet 20:00: daily. [place] [address] Medical Branch metoprolol 2018-0 Yes 100mg Take [...] mouth ity of mg tablet 20:00: daily. [place] [address] Medical Branch zolpidem 2017-0 Yes 10mg Take [...] 3-21 by mouth ity of mg tablet 15:00: daily. [place] [address] Medical Branch metoprolol 2017-0 Yes 100mg Take 100 Un [place] succinate 3-21 mg by ity of XL (TOPROL 15:00: mouth 2 [place] XL) 100 mg 52 (two) Medical 24 hr times Branch tablet daily. amLODIPine 2017-0 Yes 10mg Take 10 mg U nivers (NORVASC) 3-21 by mouth ity of 10 mg 15:00: daily. [place] tablet Medical Branch doxazosin 2017-0 Yes 4mg Take 4 mg Uni vers (CARDURA) 4 3-21 by mouth ity of mg tablet 15:00: daily. [place] [address] Medical Branch zolpidem 2017-0 Yes 10mg Take 10 mg Uni vers (AMBIEN) 10 3-21 by mouth ity of mg tablet 15:00: [place]time [place] 52 as needed Medical for Branch Insomnia. hydroxychlo 2018-0 Yes 200mg Take 200 U nivers roquine 3-21 mg by ity of (PLAQUENIL) 15:00: mouth [place] 200 mg 52 daily. Medical tablet Branch zolpidem 2016-0 Yes 10mg QD Take 10 mg Met hodi (AMBIEN) 10 6-[address] mg tablet 00:00: nightly as Ho spita 00 needed for l sleep. zolpidem 2017-0 Yes 10mg QD Take 10 mg Met hodi (AMBIEN) 10 6-[address] mg tablet 00:00: nightly as Ho spita 00 needed for l sleep. zolpidem 2017-0 Yes 10mg QD Take 10 mg Met hodi (AMBIEN) 10 6-[address] mg tablet 00:00: nightly as Ho spita 00 needed for l sleep. zolpidem 2017-0 Yes 10mg QD Take 10 mg Met [...] -acetaminop 9-24 tablet by ity of hen (LiveNinja) 00:00: mouth [place] 10-325 mg 00 every 6 Medical tablet (six) Branch hours as needed for Pain (scale 7-10). HYDROcodone 2016-0 Yes 1{tbl} Take 1 Un [place] -acetaminop 9-24 tablet by ity of hen (NORLema21) 00:00: mouth [place] 10-325 mg 00 every 6 Medical tablet (six) Branch hours as needed for Pain (scale 7-10). HYDROcodone 2016-0 Yes 1{tbl} Take 1 Un [place] -acetaminop 9-24 tablet by ity of hen (LiveNinja) 00:00: mouth [place] 10-325 mg 00 every [...] mg tablet 00:00: Medical Branch ZOHYDRO ER 2015- Yes TK ONE C Uni vers 10 mg CR12 8-22 PO Q 12 H ity of 00:00: PRN. Medical Branch tiZANidine Yes TK 1 T PO Un aaliyah (ZANAFLEX) 8-22 QHS. ity of 2 mg tablet 00:00: [facility] Yes TK ONE C Uni vers 10 mg CR12 8-22 PO Q 12 H ity of 00:00: PRN. [facility] tiZANidine Yes TK 1 T PO Un [place]yah (ZANAFLEX) 8-22 QHS. ity of 2 mg tablet 00:00: [facility] ER Yes TK ONE C Uni vers 10 mg CR12 8-22 PO Q 12 H ity of 00:00: PRN. [facility] tiZANidine Yes TK 1 T PO Un [place]ah (ZANAFLEX) 8-22 QHS. ity of 2 mg tablet 00:00: [facility] Yes TK ONE C Uni vers 10 mg CR12 8-22 PO Q 12 H ity of 00:00: PRN. [facility] tiZANidine Yes TK 1 T PO Un [place]ah (ZANAFLEX) 8-22 QHS. ity of 2 mg tablet 00:00: [facility] Yes TK ONE C Uni vers 10 mg CR12 8-22 PO Q 12 H ity of 00:00: PRN. [facility] furosemide Yes TK 1 T PO Un aaliyah (LASIX) 80 6-16 BID. ity of mg tablet 00:00: [facility] furosemide Yes TK 1 T PO Un aaliyah (LASIX) 80 6-16 BID. ity of mg tablet 00:00: [facility] furosemide Yes TK 1 T PO Un aaliyah (LASIX) 80 6-16 BID. ity of mg tablet 00:00: [facility] furosemide Yes TK 1 T PO Un aaliyah (LASIX) 80 6-16 BID. ity of mg tablet 00:00: [facility] furosemide Yes TK 1 T PO Un aaliyah (LASIX) 80 6-16 BID. ity of mg tablet 00:00: [facility] furosemide Yes TK 1 T PO Un aaliyah (LASIX) 80 6-16 BID. ity of mg tablet 00:00: [place] 00 Medical Branch ONETOUCH 0 Yes FPD Univers ULTRA2 Kit 6-13 ity of 00:00: [place] 00 Medical Branch ONETOUCH 0 Yes FPD Univers ULTRA2 Kit 6-13 ity of 00:00: [place] 00 Medical Branch ONETOUCH 0 Yes FPD Univers ULTRA2 Kit 6-13 ity of 00:00: [place] 00 Medical Branch ONETOUCH 0 Yes FPD Univers ULTRA2 Kit 6-13 ity of 00:00: [place] 00 Medical Branch ONETOUCH 0 Yes FPD Univers ULTRA2 Kit 6-13 ity of 00:00: [place] 00 Medical Branch ONETOUCH Yes FPD Univers ULTRA2 Kit 6-13 ity of 00:00: [place] 00 Medical Branch ONE TOUCH 0 Yes U TID. Univer s DELICA 33 6-12 ity of gauge Misc 00:00: [place] Medical Branch ONE TOUCH 0 Yes U TID. Univer s DELICA 33 6-12 ity of gauge Misc 00:00: [place] 00 Medical Branch ONE TOUCH 0 Yes U TID. Univer s DELICA 33 6-12 ity of gauge Misc 00:00: [place] 00 Medical Branch ONE TOUCH 0 Yes U TID. Univer s DELICA 33 6-12 ity of gauge Misc 00:00: [place] 00 Medical Branch ONE TOUCH 0 Yes U TID. Univer s DELICA 33 6-12 ity of gauge Misc 00:00: [place] Medical Branch ONE TOUCH 0 Yes U TID. Univer s DELICA 33 6-12 ity of gauge Misc 00:00: [place] 00 Medical Branch cyclobenzap 2015-0 Yes 5mg Take 5 mg U nivers rine 4-25 by mouth 3 ity of (FLEXERIL) 00:00: (three) [place] 5 mg tablet 00 times Medical daily as Branch needed. cyclobenzap 20160 Yes 5mg Take 5 mg U nivers rine 4-25 by mouth 3 ity of (FLEXERIL) 00:00: (three) [place] 5 mg tablet 00 times Medical daily as Branch needed. cyclobenzap 0 Yes 5mg Take 5 mg U nivers [...] Medical tablet hours as Branch needed. mycophenola 0 Yes Univer s te mofetil 4-07 ity of (CELLCEPT) 00:00: [place] 500 mg 00 Medical tablet Branch mycophenola 0 Yes Univer s te mofetil 4-07 ity of (CELLCEPT) 00:00: [place] 500 mg 00 Medical tablet Branch mycophenola 2015-0 Yes Univer s te mofetil 4-07 ity of (CELLCEPT) 00:00: [place] 500 mg 00 Medical tablet Branch mycophenola 2015-0 Yes Univer s te mofetil 4-07 ity of (CELLCEPT) 00:00: [place] 500 mg 00 Medical tablet Branch mycophenola 0 Yes Univer s te mofetil 4-07 ity of (CELLCEPT) 00:00: [place] 500 mg 00 Medical tablet Branch mycophenola 2015-0 Yes Univer s te mofetil 4-07 ity of (CELLCEPT) 00:00: [place] 500 mg 00 Medical tablet Branch mycophenola 0 Yes 1000mg Q.5D Take 1,[address] [facility] [...] ULTRA TEST 2-21 ity of strip 00:00: [place] 00 [facility] Branch ONETOUCH 2016-0 Yes Univers ULTRA TEST 2-21 ity of strip 00:00: [place] 00 [facility] amLODIPine 2014-08 Yes 10mg Take [address] (NORVASC) 2-11 by mouth. [facility] 10 MG 00:00: Medical tablet 00 [place] amLODIPine 2014-08 Yes 10mg Take [address] (NORVASC) 2-11 by mouth. [facility] 10 MG 00:00: Medical tablet 00 [place] amLODIPine 2014-08 Yes 10mg Take [address] (NORVASC) 2-11 by mouth. [facility] 10 MG 00:00: Medical tablet 00 [place] amLODIPine 2014-08 Yes 10mg Take [address] (NORVASC) 2-11 by mouth. [facility] 10 MG 00:00: Medical tablet 00 [place] amLODIPine 2014-08 Yes 10mg Take [address] (NORVASC) 2-11 by mouth. [facility] 10 MG 00:00: Medical tablet 00 [place] cloNIDine 2014-08 Yes .3mg Q.[id number] Take 0.[address] HCl 1-11 [id number] mg by [facility]ukes (CATAPRES) 00:00: 3D mouth 3 Medi valentin 0.3 MG 00 (three) Center tablet times daily . furosemide 2014-08 Yes 80mg Take [address] (LASIX) 40 1-11 by mouth . Jose es MG tablet 00:00: Medical 00 [place] hydrALAZINE 2014-08 Yes 50mg Q.[id number] Take [address] (APRESOLINE 1-11 [id number] by mouth 3 [facility]ukes ) 50 MG 00:00: 3D (three) Medical tablet 00 times Center daily. metoprolol 2014-08 Yes 100mg Q.5D Take [address] (LOPRESSOR) 1-11 mg by [facility]ukes 100 MG 00:00: mouth 2 Medical tablet 00 (two) Center times daily. cloNIDine 2014-08 Yes .3mg Q.[id number] Take 0.[address] HCl 1-11 [id number] mg by [facility]ukes (CATAPRES) 00:00: 3D mouth 3 Medi valentin 0.3 MG 00 (three) Center tablet times daily . furosemide 2014-08 Yes 80mg Take [address] (LASIX) 40 1-11 by mouth . Jose es MG tablet 00:00: Medical 00 [place] hydrALAZINE 2014-08 Yes 50mg Q.[id number] Take [address] (APRESOLINE 1-11 [id number] by mouth 3 [facility]ukes ) 50 MG 00:00: 3D (three) Medical tablet 00 times Center daily. metoprolol 2014-08 Yes 100mg Q.5D Take [address] (LOPRESSOR) 1-11 mg by [facility] 100 MG 00:00: mouth 2 Medical tablet 00 (two) Center times daily. cloNIDine 2014-08 Yes .3mg Q.[id number] Take 0.[address] HCl 1-11 [id number] mg by [facility] (CATAPRES) 00:00: 3D mouth 3 Medi valentin 0.3 MG 00 (three) Center tablet times daily . furosemide 2014-08 Yes 80mg Take [address] (LASIX) 40 1-11 by mouth . Jose es MG tablet 00:00: Medical 00 [place] hydrALAZINE 2014-08 Yes 50mg Q.[id number] Take [address] (APRESOLINE 1-11 [id number] by mouth 3 [facility] ) 50 MG 00:00: 3D (three) Medical tablet 00 times Center daily. metoprolol 2014-08 Yes 100mg Q.5D Take [address] (LOPRESSOR) 1-11 mg by [facility] 100 MG 00:00: mouth 2 Medical tablet 00 (two) Center times daily. cloNIDine 2014-08 Yes .3mg Q.[id number] Take 0.[address] HCl 1-11 [id number] mg by [facility] (CATAPRES) 00:00: 3D mouth 3 Medi valentin 0.3 MG 00 (three) Center tablet times daily . furosemide 2014-08 Yes 80mg Take [address] (LASIX) 40 1-11 by mouth . Jose es MG tablet 00:00: Medical 00 [place] hydrALAZINE 2014-08 Yes 50mg Q.[id number] Take [address] (APRESOLINE 1-11 [id number] by mouth 3 [facility] ) 50 MG 00:00: 3D (three) Medical tablet 00 times Center daily. metoprolol 2014-08 Yes 100mg Q.5D Take [address] (LOPRESSOR) 1-11 [facility] 100 MG 00:00: mouth 2 Medical tablet 00 (two) Center times daily. cloNIDine 2014-08 Yes .3mg Q.[id number] Take 0.[address] [facility] HCl 1-11 [id number] mg [facility] (CATAPRES) 00:00: 3D mouth 3 Medi valentin 0.3 MG 00 (three) Center tablet times daily . furosemide 2014-08 Yes 80mg Take [address] (LASIX) 40 1-11 by mouth . Jose es MG tablet 00:00: Medical 00 Center hydrALAZINE 2014-08 Yes 50mg Q.[id number] Take [address] [facility] (APRESOLINE 1-11 [id number] by mouth 3 [facility] ) 50 MG 00:00: 3D (three) Medical tablet 00 times Center daily. metoprolol 2014-08 Yes 100mg Q.5D Take [address] (LOPRESSOR) 1-11 mg [facility] 100 MG 00:00: mouth 2 Medical tablet 00 (two) Center times daily. Immunizations Ordered Filled Immunization Date Status Comments [facility] Immunization Name Name SARS-COV-2 COVID-19 2020-11-15 Completed Unive rsity of PFIZER VACCINE 00:00:00 [facility] SARS-COV-2 COVID-19 2020-11-15 Completed Unive rsity of PFIZER VACCINE 00:00:00 [facility] SARS-COV-2 COVID-19 2020-11-15 Completed Unive rsity of PFIZER VACCINE 00:00:00 [facility] SARS-COV-2 COVID-19 2020-10-25 Completed Unive rsity of PFIZER VACCINE 00:00:00 [facility] SARS-COV-2 COVID-19 2020-10-25 Completed Unive rsity of PFIZER VACCINE 00:00:00 [facility] SARS-COV-2 COVID-19 2020-10-25 Completed Unive rsity of PFIZER VACCINE 00:00:00 [facility] SARS-COV-2 COVID-19 2020-10-25 Completed Unive rsity of PFIZER VACCINE 00:00:00 [facility] SARS-COV-2 COVID-19 2020-10-25 Completed Unive rsity of PFIZER VACCINE 00:00:00 [facility] SARS-COV-2 COVID-19 2020-10-25 Completed Unive rsity of PFIZER VACCINE 00:00:00 [facility] Vital Signs Vital Name Observation Time Observation Value Comments Source Systolic blood 2022-07-28 18:00:00 185 mm[Hg] [facility]ity [facility] Diastolic blood 2022-07-28 18:00:00 113 mm[Hg] [facility] [place] [facility] Heart rate 2022-07-28 17:47:00 91 /min [facility] Respiratory rate 2022-07-28 17:47:00 20 /min [facility] Oxygen saturation in 2022-07-28 17:47:00 99 /min University of Arterial blood by [facility] Pulse oximetry Branch Body temperature 2022-07-28 15:54:00 36.67 Chhaya [facility] Body height 2022-07-28 15:54:00 157.5 cm [facility] Body weight 2022-07-28 15:54:00 83.462 kg [facility] BMI 2022-07-28 15:54:00 33.65 kg/m2 [facility] Systolic blood 2021-03-27 08:00:00 182 mm[Hg] Univer [facility]ity of [facility] Diastolic blood 2021-03-27 08:00:00 101 mm[Hg] [facility] Heart rate 2021-03-27 08:00:00 72 /min [facility] Respiratory rate 2021-03-27 08:00:00 10 /min [facility] Oxygen saturation in 2021-03-27 08:00:00 100 /min University of Arterial blood by [facility] Pulse oximetry Branch Body temperature 2021-03-27 04:49:00 37.28 Chhaya [facility] Body height 2021-03-27 04:49:00 157.5 cm [facility] Body weight 2021-03-27 04:49:00 83.462 kg [facility] BMI 2021-03-27 04:49:00 33.65 kg/m2 [facility] Systolic blood 2021-01-15 15:01:00 140 mm[Hg] [facility] Diastolic blood 2021-01-15 15:01:00 84 mm[Hg] [facility]ive rs[facility] of pressure [facility] Heart rate 2021-01-15 15:01:00 76 /min [facility] Body temperature 2021-01-15 15:01:00 36.28 Chhaya [facility] Respiratory rate 2021-01-15 15:01:00 18 /min [facility] Body height 2021-01-15 15:01:00 157.5 cm [facility] Body weight 2021-01-15 15:01:00 90.719 kg [facility] BMI 2021-01-15 15:01:00 36.58 kg/m2 [facility] ty [facility] Oxygen saturation in 2021-01-15 15:01:00 99 /min [facility] of Arterial blood by [facility] Pulse oximetry Branch Systolic blood 2020-11-12 19:02:00 155 mm[Hg] Univer [facility]ity of pressure [facility] Diastolic blood 2020-11-12 19:02:00 95 mm[Hg] Unive rsity of pressure [facility] Heart rate 2020-11-12 19:01:00 79 /min [facility] Respiratory rate 2020-11-12 19:01:00 19 /min [facility] Body height 2020-11-12 19:01:00 167.6 cm [facility] Body weight 2020-11-12 19:01:00 86.002 kg [facility] BMI 2020-11-12 19:01:00 30.60 kg/m2 [facility] Systolic blood 2020-11-12 19:02:00 155 mm[Hg] [facility] Diastolic blood 2020-11-12 19:02:00 95 mm[Hg] [facility]ive [facility] of [facility] Heart rate 2020-11-12 19:01:00 79 /min [facility] Respiratory rate 2020-11-12 19:01:00 19 /min [facility] Body height 2020-11-12 19:01:00 167.6 cm [facility] Body weight 2020-11-12 19:01:00 86.002 kg [facility] BMI 2020-11-12 19:01:00 30.60 kg/m2 [facility] Procedures Procedure Date / Time Performed Performing Clinician Sourc e EKG-12 LEAD 2022-07-28 16:42:07 [facility] COMP. METABOLIC PANEL 2022-07-28 16:25:00 [facility] ([id number]) [facility] CBC WITH DIFF 2022-07-28 16:25:00 [facility] CONSENT/REFUSAL FOR 2022-07-28 15:49:58 Doctor Unassigned, No [facility] [place] DI[facility]NOS[facility] AND [facility] TREATMENT NOTICE OF PRIVACY 2021-03-27 04:39:35 Doctor Unassigned, No Univ [facility] PRACTICES [facility] CONSENT/REFUSAL FOR 2021-03-27 04:37:48 Doctor Unassigned, No [facility] [place] DIAGNOSIS AND [facility] TREATMENT CONSENT/REFUSAL FOR 2021-01-15 14:58:04 Doctor Unassigned, No Un [facility] DIAGNOSIS AND [facility] TREATMENT ASSIGNMENT OF BENEFITS 2020-11-12 18:39:16 Doctor Unassigned, No [facility] Plan of Care Planned Activity Planned Date Details Comments Source Future Scheduled 2022-12-03 COVID-19 VACCINE (#1) [facility] Test 20:05:48 [code = COVID-19 VACCINE (#1)] Future Scheduled 2022-12-03 Screening for [facility] Test 20:05:48 malignant neoplasm of cervix (procedure) [code = 979732968] Future Scheduled 2022-12-03 BREAST CANCER [facility] Test 20:05:48 SCREENING [code = BREAST CANCER SCREENING] Future Scheduled 2022-12-03 COLONOSCOPY SCREENING [facility] Test 20:05:48 [code = COLONOSCOPY SCREENING] Future Scheduled 2022-12-03 SHINGLES VACCINES (1 [facility] Test 20:05:48 of 2) [code = SHINGLES VACCINES (1 of 2)] Future Scheduled 2022-12-03 INFLUENZA VACCINE [facility] Test 20:05:48 [code = INFLUENZA VACCINE] Future Scheduled 2022-07-03 SHINGLES VACCINES (1 [facility] Test 00:15:46 of 2) [code = SHINGLES VACCINES (1 of 2)] Future Scheduled 2022-07-03 Screening for [facility] Test 00:15:46 malignant neoplasm of cervix (procedure) [code = 587162653] Future Scheduled 2022-07-03 BREAST CANCER [facility] Test 00:15:46 SCREENING [code = BREAST CANCER SCREENING] Future Scheduled 2022-07-03 COLONOSCOPY SCREENING [facility] Test 00:15:46 [code = COLONOSCOPY SCREENING] Future Scheduled 2022-07-03 INFLUENZA VACCINE [facility] Test 00:15:46 [code = INFLUENZA VACCINE] Future Scheduled 2022-07-03 HEPATITIS B VACCINES [facility] Test 00:15:46 (1 of 3 - 3-dose series) [code = HEPATITIS B VACCINES (1 of 3 - 3-dose series)] Future Scheduled 2022-07-03 COVID-19 VACCINE (#1) [facility] Test 00:15:46 [code = COVID-19 VACCINE (#1)] Future Scheduled 2022-07-03 Pneumococcal Vaccine: [facility] Test 00:15:46 Pediatrics (0 to 5 Years) and At-Risk Patients (6 to 64 Years) (1 - PCV) [code = Pneumococcal Vaccine: Pediatrics (0 to 5 Years) and At-Risk Patients (6 to 64 Years) (1 - PCV)] Future Scheduled 2022-07-03 DIABETES: RETINAL EYE [facility] Test 00:15:46 EXAM [code = DIABETES: RETINAL EYE EXAM] Future Scheduled 2022-07-03 DIABETIC FOOT EXAM [facility] Test 00:15:46 [code = DIABETIC FOOT EXAM] Future Scheduled 2022-07-03 Hepatitis C screening [facility] Test 00:15:46 (procedure) [code = 429979201] Future Scheduled 2022-07-03 SHINGLES VACCINES (1 [facility] Test 00:15:46 of 2) [code = SHINGLES VACCINES (1 of 2)] Future Scheduled 2022-07-03 Screening for [facility] Test 00:15:46 malignant neoplasm of cervix (procedure) [code = 669042850] Future Scheduled 2022-07-03 BREAST CANCER [facility] Test 00:15:46 SCREENING [code = BREAST CANCER SCREENING] Future Scheduled 2022-07-03 COLONOSCOPY SCREENING [facility] Test 00:15:46 [code = COLONOSCOPY SCREENING] Future Scheduled 2022-07-03 INFLUENZA VACCINE [facility] Test 00:15:46 [code = INFLUENZA VACCINE] Future Scheduled 2022-07-03 HEPATITIS B VACCINES [facility] Test 00:15:46 (1 of 3 - 3-dose series) [code = HEPATITIS B VACCINES (1 of 3 - 3-dose series)] Future Scheduled 2022-07-03 COVID-19 VACCINE (#1) [facility] Test 00:15:46 [code = COVID-19 VACCINE (#1)] Future Scheduled 2022-07-03 Pneumococcal Vaccine: [facility] Test 00:15:46 Pediatrics (0 to 5 Years) and At-Risk Patients (6 to 64 Years) (1 - PCV) [code = Pneumococcal Vaccine: Pediatrics (0 to 5 Years) and At-Risk Patients (6 to 64 Years) (1 - PCV)] Future Scheduled 2022-07-03 DIABETES: RETINAL EYE [facility] Test 00:15:46 EXAM [code = DIABETES: RETINAL EYE EXAM] Future Scheduled 2022-07-03 DIABETIC FOOT EXAM [facility] Test 00:15:46 [code = DIABETIC FOOT EXAM] Future Scheduled 2022-07-03 Hepatitis C screening [facility] Test 00:15:46 (procedure) [code = 505473702] Future Scheduled 2021-04-[address] [...] 00:00:00 measurement Medical Center (procedure) [code = 14931443] Future Scheduled 2019-01-[address] [facility] [address] [facility] Test 00:[facility] measurement Medical Center (procedure) [code = 86483478] Future Scheduled 2018-08-[address] [facility] Test 00:00:00 (procedure) [code = [facility] 86384754] Future Scheduled [address] Test 00:00:00 (procedure) [code = [facility] 82781536] Future Scheduled 2014-06-[address] [...] [facility]ica l Center cervix (procedure) [code = 673320027] Future Scheduled [address] [facility] Test 00:00:00 malignant neoplasm of Medica l Center cervix (procedure) [code = 173175716] Future Scheduled 1989 DTAP/TDAP/TD VACCINES CH I [...] 00:00:00 examination Medical Center (regime/therapy) [code = 780998741] Future Scheduled 1980 Urine screening for [facility] Test 00:00:00 protein (procedure) Medical Center [code = 928950472] Future Scheduled 1980 DIABETIC EYE EXAM [facility] Test 00:00:00 [code = DIABETIC EYE Medical Center EXAM] Future Scheduled [address] Test 00:00:00 examination Medical Center (regime/therapy) [code = 909580439] Future Scheduled 1980 Urine screening for [facility] Test 00:00:00 protein (procedure) Medical Center [code = 534743172] Future Scheduled [address] Test 00:00:00 [facility] (procedure) [code = 416222664] Future Scheduled [address] Test 00:00:00 malignant neoplasm of Medica l Center colon (procedure) [code = 152605328] Future Scheduled [address] [facility] Test 00:00:00 malignant neoplasm of [facility] breast (procedure) [code = 144916927] Future Scheduled [address] [facility] Test 00:00:00 malignant neoplasm of [facility] colon (procedure) [code = 558840171] Future Scheduled DIABETES: RETINAL EYE [facility] EXAM [code = DIABETES: RETINAL EYE EXAM] Future Scheduled DIABETIC FOOT EXAM [facility] Test [code = DIABETIC FOOT EXAM] Future Scheduled COVID-19 VACCINE (1) [facility] [code = COVID-19 VACCINE (1)] Future Scheduled [facility] C [facility] (procedure) [code = 259339862] Future Scheduled Screening for [facility] Test malignant neoplasm of cervix (procedure) [code = 593879450] Future Scheduled BREAST CANCER [facility] Test SCREENING [code = BREAST CANCER SCREENING] Future Scheduled [facility]OSCOPY [facility] [code = COLONOSCOPY SCREENING] Future Scheduled SHINGLES VACCINES (#1) [facility] [code = SHINGLES VACCINES (#1)] Future Scheduled [facility]ACC[facility] [code = INFLUENZA VACCINE] Encounters Start End Encounter Admission Attending Care Care Encounter Source Date/Time Date/Time Type Type Clinicians Facility Department ID 2022-05-26 Outpatient daniel [facility] [id number] [facility] 15:31:14 e [id number] Formerly [facility] 2021-06-29 Emergency [facility] [id number] Univers 11:53:58 ity [facility] 2021-06-28 Emergency [facility] [id number] Univers 20:14:34 ity [facility] 2022-07-28 2022-07-28 Emergency X [facility] ERT [id number] Univers 09:58:00 12:12:00 AKOSUA ity [facility] 2022-07-28 2022-07-28 [facility] [id number] Univers 09:58:00 12:12:00 Akosua PAINTER [id number] ity [facility] 4.2.7.2.686 [facility] [id number] [place] [address] Branch 2021-03-26 2021-03-27 [facility] [id number] Univers 23:56:00 03:30:00 Naga Pulido [place] [id number] ity of [place] 4.2.7.2.686 [facility] [id number] [address] 2021-01-15 2021-01-15 Emergency [facility] [id number] Univers 10:03:00 11:43:00 Jeanna Pulido [place] [id number] i ty of [place] 4.2.7.2.686 [facility] [id number] [address] 2020-12-11 2020-12-11 Outpatient Sea GRAF [facility] [id number] Univers 10:00:00 10:00:00 TONY ity [facility] 2020-11-15 2020-11-15 Outpatient [facility] [id number] Univers 13:05:00 13:05:00 ity [facility] 2020-11-12 2020-11-12 Office [facility] [id number] Univers 13:40:03 14:10:03 Visit Ligia Painter [id number] ity [facility] 4.2.7.2.686 [facility] Professio [phone] Ma dical [address] 2020-11-12 2020-11-12 Office Zion RUST [id number] 13:40:03 14:10:03 Visit Strahil T [place] [id number] [place] 4.2.7.2.686 Professio [id number] [address] 2020-11-12 2020-11-12 Outpatient R LIGIA PEDRO [facility] [id number] Univers 14:00:00 14:00:00 LGIIA PEDRO ity [facility] 2020-11-12 2020-11-12 Orders Doctor DUBOSE [id number] Univers 00:00:00 00:00:00 Only Unassigned, KATIE 350.1.13.10 ity of [facility] 4.2.7.2.686 Juan C as [id number] [place] [address] Branch 2020-10-25 2020-10-25 Outpatient [facility] [id number] Univers 12:45:00 12:45:00 ity [facility] Results Test Description Test Time Test Comments Results Result Comments Source COMP. METABOLIC PANEL (65637) 2022-07-28 16:47:59 Test Item Value Reference Range Interpretation Comme nts NA (test code = 5185429842) 140 mmol/L 135-145 K (test code = 4176425366) 4.4 mmol/L 3.5-5.0 CL (test code = 6450497307) 110 mmol/L 98-108 H CO2 TOTAL (test code = 9070638347) 20 mmol/L 23-31 L AGAP (test code = 1585712651) 2-16 BUN (test code = 0499678644) 26 mg/dL 7-23 H GLUCOSE (test code = 2969073981) 131 mg/dL 70-110 H CREATININE (test code = 2.26 mg/dL 0.50-1.04 H 7433799056) TOTAL BILI (test code = 0.4 mg/dL 0.1-1.6 9249891763) CALCIUM (test code = 6450668724) 8.5 mg/dL 8.6-10.6 L T PROTEIN (test code = 9914181184) 6.9 g/dL 6.3-8.2 ALBUMIN (test code = 2139379826) 3.8 g/dL 3.5-5.0 ALK PHOS (test code = 1995263103) 170 U/L 34-122 H ALTv (test code = 1742-6) 20 U/L 5-35 AST(SGOT) (test code = 6704428824) 27 U/L 13-40 eGFR (test code = 9084032601) mL/min/1.73m2 GARY (test code = GARY) Association of Glomerular Filtration Rate (GFR) and Staging of Kidney Disease* + +-------- + ------+| GFR (mL/min/1.73 m2) ?| With Kidney Damage ?| ?Without Kidney Damage+ +-- + +| ?>90 ?| ?Stage one ?| ? Normal ?+ +------- + -------+| ?60-89 ?| ?Stage two ?| ? Decreased GFR ? + +-------- + ------+| ?30-59 ?| ?Stage three ?| ? Stage three ? + +-------- + ------+| ?15-29 ?| ?Stage four ? | ? Stage four ?+ +------- + -------+| ?<15 (or dialysis) ? ?| ?Stage five ? | ? Stage five ?+ +------- + -------+ *Each stage assumes the associated GFR level has been in effect for at least three months. ?Stages 1 to 5, with or without kidney disease, indicate chronic kidney disease. Notes: Determination of stages one and two (with eGFR >59mL/min/1.73 m2) requires estimation of kidney damage for at least three months as defined by structural or functional abnormalities of the kidney, manifested by either:Pathological abnormalities or Markers of kidney damage (including abnormalities in the composition of the blood or urine or abnormalities in imaging tests). Lab Interpretation (test code = Abnormal 33778-2) [facility] WITH [id number] 16:39:19 Test Item Value Reference Range Interpretation Comments WBC (test code = See_Comment [Automated 9630-2) message] The sy stem which generated this result transmitted reference range : 4.30 - 11.10 10*3/?L. The reference range was not used to interpret this result as normal/abnormal . RBC (test code = See_Comment [Automated 853-8) message] The sy stem which generated this result transmitted reference range : 3.93 - 5.25 10*6/?L. The reference range was not used to interpret this result as normal/abnormal . HGB (test code = 11.2 g/dL 11.6-15.0 L 718-7) HCT (test code = 36.1 % 35.7-45.2 4544-3) MCV (test code = 86.6 fL 80.6-95.5 787-2) MCH (test code = 26.9 pg 25.9-32.8 785-6) MCHC (test code = 31.0 g/dL 31.6-35.1 L 786-4) RDW-SD (test code = 44.4 fL 39.0-49.9 14869-3) RDW-CV (test code = 14.2 % 12.0-15.5 788-0) PLT (test code = See_Comment [Automated 777-3) message] The sy stem which generated this result transmitted reference range : 166 - 358 10*3/ ?L. The reference r jp was not used to interpret this result as normal/abnormal . MPV (test code = 9.0 fL 9.5-12.9 L 38970-2) NRBC/100 WBC (test See_Comment [Automat ed code = 0864219899) message] The system which generated this result transmitted reference range : 0.0 - 10.0 /100 WBCs. The refer ence range was not u sed to interpret th is result as normal/abnormal . NRBC x10^3 (test code See_Comment [Auto mated = 0965806148) message] The s ystem which generated this result transmitted reference range : 10*3/?L. The reference range was not used to interpret this result as normal/abnormal . GRAN MAT (NEUT) % 53.4 % (test code = 770-8) IMM GRAN % (test code 0.30 % = 3191182103) LYMPH % (test code = 28.0 % 736-9) MONO % (test code = 12.7 % 5905-5) EOS % (test code = 4.7 % 713-8) BASO % (test code = 0.9 % 706-2) GRAN MAT x10^3(ANC) 3.76 10*3/uL 1.88-7.09 (test code = 4496228147) IMM GRAN x10^3 (test 0.00-0.06 code = 9291562115) LYMPH x10^3 (test code 1.97 10*3/uL 1.32-3.29 = 731-0) MONO x10^3 (test code 0.89 10*3/uL 0.33-0.92 = 742-7) EOS x10^3 (test code = 0.33 10*3/uL 0.03-0.39 711-2) BASO x10^3 (test code 0.06 10*3/uL 0.01-0.07 = 704-7) Lab Interpretation Abnormal (test code = 21844-0) [id number] 17:01:00 Test Item Value Reference Range Interpretation Comments CULTURE (BEAKER) (test No growth in 5 days code = 1095) LUPUS ANTICOAGULANT SCREEN WITH REFLEX TO [id number] 16:08:00 Test Item Value Reference Range Interpretation Comments DRVV SCREEN RATIO 1.55 <1.20 H (BEAKER) (test code = 2707) DRVV CONFIRM RATIO 0.93 (test code = 2709) DRVV NORMALIZED RATIO 1.67 <1.20 H (test code = 2710) DRVV INTERPRETATION Positive screen for (BEAKER) (test code = Lupus Anticoagulant 8646) with hexagonal phospholipid confirmation. Suggest repeat testing in 12 weeks and when patient not receiving anticoagulant therapy. PROTIME (BEAKER) (test 15.0 seconds 11.7-14.7 H code = 759) INR (BEAKER) (test code 1.2 <=5.9 = 370) PARTIAL THROMBOPLASTIN 36.1 seconds 22.5-36.0 H TIME (BEAKER) (test code = 760) PTT-LA (BEAKER) (test 45.2 32.0-41.8 H code = 5006615433) [id number] Cindy Chavira MD (BEAKER) (test code = (electronic signature) 2610) HEXAGONAL [id number] 14:08:00 Test Item Value Reference Range Interpretation Comments HEXAGONAL PHOSPHOLIPID (BEAKER) Positive (test code = 1790) BLOOD [id number] 10:01:00 Test Item Value Reference Range Interpretation Comments CULTURE (BEAKER) (test No growth in 5 days code = 1095) DOUBLE-STRANDED DNA (DSDNA) [id number] 05:52:00 Test Item Value Reference Range Interpretation Comments ANTI-DNA DS (BEAKER) (test code = Negative 1055) CARDIOLIPIN ANTIBODIES, IGG AND [id number] 15:01:00 Test Item Value Reference Range Interpretation Comments ANTICARDIOLIPIN IGG ANTIBODY (BEAKER) < GPL <20.0 (test code = 712) ANTICARDIOLIPIN IGM ANTIBODY (BEAKER) 2.1 MPL <20.0 (test code = 713) Anticardiolipin IgG Result Interpretation: <20.0 GPL Normal>/= 20.0 GPL PositiveAnticardiolipin IgM Result Interpretation: <20.0 MPL Normal>/= 20.0 MPL PositiveCALCIUM, [id number] 05:12:00 Test Item Value Reference Range Interpretation Comments CALCIUM IONIZED ([facility]) (test 1.01 mmol/L 1.12-1.27 L code = 698) PH, BLOOD ([facility]) (test code = 7.45 1810) POCT-GLUCOSE [id number] 21:30:00 Test Item Value Reference Range Interpretation Comments POC-GLUCOSE METER 116 mg/dL 70-110 H TESTED AT [place] [address] ([facility]) (test code = JOB Osei [facility] 1538) [address] POCT-GLUCOSE [id number] 17:32:00 Test Item Value Reference Range Interpretation Comments POC-GLUCOSE METER 125 mg/dL 70-110 H TESTED AT [place] [address] ([facility]) [facility]38[facility] [address] POCT-GLUCOSE [id number] 11:28:00 Test Item Value Reference Range Interpretation Comments POC-GLUCOSE METER 115 mg/dL 70-110 H TESTED AT [place] [address] ([facility]) (test [facility] 1538) [id number] POCT-GLUCOSE [id number] 07:41:00 Test Item Value Reference Range Interpretation Comments POC-GLUCOSE METER 108 mg/dL 70-110 TESTED AT [place] [place] [address] ([facility]) ([facility] 1538) [address] [id number] 07:06:00 Test Item Value Reference Range Interpretation Comments MAGNESIUM ([facility]) 1.8 mg/dL 1.6-2.6 Specimen slightly (test code = 627) hemolyzed [id number] 07:06:00 Test Item Value Reference Range Interpretation Comments PHOSPHORUS (BEAKER) 2.4 mg/dL 2.3-4.7 Specimen slightly (test code = 604) hemolyzed COMPREHENSIVE METABOLIC [id number] 07:06:00 Test Item Value Reference Range Interpretation [...] APPLICABLE FOR DIALYSIS PATIEN TS. HEPATIC FUNCTION [id number] 07:06:00 Test Item Value Reference Range Interpretation [...] slightly (test code = 347) hemolyzed CALCIUM, [id number] 06:42:00 Test Item Value Reference Range Interpretation Comments CALCIUM IONIZED (BEAKER) (test 1.16 mmol/L 1.12-1.27 code = 698) PH, BLOOD (BEAKER) (test code = 7.42 1810) CBC W/PLT COUNT & AUTO [id number] 05:10:00 Test Item Value Reference Range Interpretation [...] PERCENT (BEAKER) (test code = 2801) POCT-GLUCOSE [id number] 23:12:00 Test Item Value Reference Range Interpretation Comments POC-GLUCOSE METER 95 mg/dL 70-110 TESTED [place] [address] [facility] (test code = [facility] [address] 1538) POCT-GLUCOSE [id number] 18:51:00 Test Item Value Reference Range Interpretation Comments POC-GLUCOSE METER 118 mg/dL 70-110 H TESTED [place] [address] ([facility] (test code = [facility] 1538) [address] HEMOGLOBIN AND [id number] 16:28:00 Test Item Value Reference Range Interpretation Comments HEMOGLOBIN (BEAKER) (test code = 8.7 GM/DL 11.2-15.7 L 410) HEMATOCRIT (BEAKER) (test code = 27.8 % 34.1-44.9 L 411) POCT-GLUCOSE [id number] 15:00:00 Test Item Value Reference Range Interpretation Comments POC-GLUCOSE METER 140 mg/dL 70-110 H TESTED [place] [address] ([facility] (test code = [facility] 1538) [address] POCT-GLUCOSE [id number] 14:46:00 Test Item Value Reference Range Interpretation Comments POC-GLUCOSE METER 44 mg/dL 70-110 L Notified Sea Amos MD/TESTED AT ([facility]) (test code = [place] [address] [place] 1538) [facility] 7703 0 POCT-GLUCOSE [id number] 13:05:00 Test Item Value Reference Range Interpretation Comments POC-GLUCOSE METER 87 mg/dL 70-110 TESTED AT [facility] 6720 ([facility]) (test code = JOB Osei [facility] [address] 1538) POCT-GLUCOSE [id number] 11:57:00 Test Item Value Reference Range Interpretation Comments POC-GLUCOSE METER 65 mg/dL 70-110 L Notified Sea Amos MD/TESTED AT ([facility]) (test code = [place] [address] [place] 1538) [facility] 7703 0 VANCOMYCIN LEVEL, [id number] 10:58:00 Test Item Value Reference Range Interpretation Comments VANCOMYCIN TROUGH ([facility]) (test 14.2 ug/mL 10.0-20.0 code = 522) RAD, ABDOMEN/KUB, 1 VIEW [id number] 09:41:00Reason for exam:->abdominal painFINAL REPORT AP abdomen, two images HISTORY: Abdominal pain COMPARISON: 07/28/2013 IMPRESSION:Grossly nonobstructive bowel gas pattern. Intact skeleton. Signed: Vikas Guilleneport Verified Date/Time: 07/30/2018 09:41:59 Reading Location: [address] Ortho Consult Reading Room -GLUCOSE [id number] 07:59:00 Test Item Value Reference Range Interpretation Comments POC-GLUCOSE METER 87 mg/dL 70-110 TESTED AT [place] [id number] ([facility]) (test code = JOB Osei [facility] [address] 1538) CALCIUM, [id number] 06:53:00 Test Item Value Reference Range Interpretation Comments CALCIUM IONIZED ([facility]) (test 1.12 mmol/L 1.12-1.27 code = 698) PH, BLOOD ([facility]) (test code = 7.44 1810) [id number] 06:38:00 Test Item Value Reference Range Interpretation Comments PHOSPHORUS ([facility]) (test code = 2.7 mg/dL 2.3-4.7 604) [id number] 06:38:00 Test Item Value Reference Range Interpretation Comments MAGNESIUM (BEAKER) (test code = 1.6 mg/dL 1.6-2.6 627) HEPATIC FUNCTION [id number] 06:38:00 Test Item Value Reference Range Interpretation [...] = 9 U/L 6-55 347) COMPREHENSIVE METABOLIC [id number] 06:38:00 Test Item Value Reference Range Interpretation [...] PATIEN TS. CBC W/PLT COUNT & AUTO [id number] 06:11:00 Test Item Value Reference Range Interpretation [...] 417) IMMATURE GRANULOCYTES-RELATIVE 1 % 0-1 PERCENT (AKER) (test code = 2801) POCT-GLUCOSE [id number] 21:38:00 Test Item Value Reference Range Interpretation Comments POC-GLUCOSE METER 96 mg/dL 70-110 TESTED AT [place] [address] ([facility]) (test code = [facility] [address] 1538) POCT-GLUCOSE [id number] 18:19:00 Test Item Value Reference Range Interpretation Comments POC-GLUCOSE METER 121 mg/dL 70-110 H TESTED AT [place] [address] ([facility]) (test code = [facility] 1538) [address] T4, [id number] 12:35:00 Test Item Value Reference Range Interpretation Comments FREE T4 ([facility]) (test code = 655) 1.25 ng/dL 0.70-1.48 POCT-GLUCOSE [id number] 12:27:00 Test Item Value Reference Range Interpretation Comments POC-GLUCOSE METER 127 mg/dL 70-110 H TESTED AT [place] [address] ([facility]) (test code = [facility] 1538) [address] TSH/FREE T4 IF [id number] 12:07:00 Test Item Value Reference Range Interpretation Comments THYROID STIMULATING HORMONE 0.25 uIU/mL 0.35-4.94 L ([facility]) (test code = 772) [id number] 12:07:00 Test Item Value Reference Range Interpretation Comments THYROID STIMULATING HORMONE 0.25 uIU/mL 0.35-4.94 L ([facility]) (test code = 772) LACTIC ACID, VENOUS, WHOLE [id number] 11:35:00 Test Item Value Reference Range Interpretation Comments LACTATE BLOOD VENOUS 0.6 mmol/L 0.5-2.2 Specime n slightly (2) (BEAKER) (test hemolyzed code = 2872) VANCOMYCIN LEVEL, [id number] 07:11:00 Test Item Value Reference Range Interpretation Comments VANCOMYCIN RANDOM (BEAKER) (test 17.9 ug/mL code = 523) Reference Range: No [id number] 07:09:00 Test Item Value Reference Range Interpretation Comments PHOSPHORUS (BEAKER) (test code = 3.9 mg/dL 2.3-4.7 604) [id number] 07:09:00 Test Item Value Reference Range Interpretation Comments MAGNESIUM (BEAKER) (test code = 1.7 mg/dL 1.6-2.6 627) BASIC METABOLIC [id number] 07:09:00 Test Item Value Reference Range Interpretation [...] APPLICABLE FOR DIALYSIS PATIEN TS. HEPATIC FUNCTION [id number] 07:09:00 Test Item Value Reference Range Interpretation [...] code = 10 U/L 6-55 347) TROPONIN [id number] 06:54:00 Test Item Value Reference Range Interpretation Comments TROPONIN I (BEAKER) (test code = 0.08 ng/mL 0.00-0.03 H 397) LACTIC ACID, VENOUS, WHOLE [id number] 06:45:00 Test Item Value Reference Range Interpretation Comments LACTATE BLOOD VENOUS 0.8 mmol/L 0.5-2.2 Specime n slightly (2) (BEAKER) (test hemolyzed code = 2872) CBC W/PLT COUNT & AUTO [id number] 06:00:00 Test Item Value Reference Range Interpretation [...] PERCENT (BEAKER) (test code = 2801) CALCIUM, [id number] 05:58:00 Test Item Value Reference Range Interpretation Comments CALCIUM IONIZED (BEAKER) (test 1.12 mmol/L 1.12-1.27 code = 698) PH, BLOOD (BEAKER) (test code = 7.39 1810) EOSINOPHIL SMEAR, [id number] 20:17:00 Test Item Value Reference Range Interpretation Comments EOSINOPHIL SMEAR, URINE (BEAKER) No EOS seen No EOS seen (test code = 1851) BASIC METABOLIC [id number] 20:01:00 Test Item Value Reference Range Interpretation [...] DIALYSIS PATIEN TS. LACTIC ACID, VENOUS, WHOLE [id number] 19:59:00 Test Item Value Reference Range Interpretation Comments LACTATE BLOOD VENOUS 0.8 mmol/L 0.5-2.2 Specime n slightly (2) (BEAKER) (test hemolyzed code = 2872) CT, BRAIN/STROKE [id number] 19:59:00Stroke Protocol. Phone/Page MD for reporting.Reason for [...] Date/Time: 07/28/2018 19:59:01 Reading Location: [facility] Reading Room [id number] 19:51:00 Test Item Value Reference Range Interpretation Comments PARTIAL THROMBOPLASTIN TIME 33.1 seconds 22.5-36.0 (BEAKER) (test code = 760) PROTHROMBIN [id number] 19:50:00 Test Item Value Reference Range Interpretation Comments PROTIME (BEAKER) (test code = 15.6 seconds 11.7-14.7 H 759) INR (BEAKER) (test code = 370) 1.2 <=5.9 RECOMMENDED COUMADIN/WARFARIN INR THERAPY RANGESSTANDARD DOSE: 2.0 - 3.0 Includes: PROPHYLAXIS for venous thrombosis, systemic embolization; TREATMENT for venous thrombosis and/or pulmonary embolus.HIGH RISK: Target INR is 2.5-3.5 for patients with mechanical heart valves.HEMOGLOBIN AND [id number] 19:41:00 Test Item Value Reference Range Interpretation Comments HEMOGLOBIN (BEAKER) (test code = 11.3 GM/DL 11.2-15.7 410) HEMATOCRIT (BEAKER) (test code = 35.4 % 34.1-44.9 411) CBC W/PLT COUNT & AUTO [id number] 19:41:00 Test Item Value Reference Range Interpretation [...] PERCENT (BEAKER) (test code = 2801) TROPONIN [id number] 19:26:00 Test Item Value Reference Range Interpretation Comments TROPONIN I (BEAKER) (test code = 0.11 ng/mL 0.00-0.03 H 397) PROTEIN, RANDOM [id number] 19:19:00 Test Item Value Reference Range Interpretation Comments PROTEIN, URINE (BEAKER) (test code 325 mg/dL 0-14 H = 1569) POCT-GLUCOSE [id number] 19:00:00 Test Item Value Reference Range Interpretation Comments POC-GLUCOSE METER 158 mg/dL 70-110 H TESTED AT [facility] 6720 (BEAKER) (test code = J[place] 1538) [address] CREATININE, RANDOM [id number] 18:52:00 Test Item Value Reference Range Interpretation Comments CREATININE URINE (BEAKER) (test 95.8 mg/dL code = 375) Reference Range: No NormalsSODIUM, RANDOM [id number] 18:52:00 Test Item Value Reference Range Interpretation Comments SODIUM URINE (BEAKER) (test code = 28 meq/L 243) Reference Range: No NormalsURINALYSIS W/ [id number] 18:02:00 Test Item Value Reference Range Interpretation [...] SOURCE(BEAKER) (test code Urine, Clean Catch = 8694) POCT-GLUCOSE [id number] 17:21:00 Test Item Value Reference Range Interpretation Comments POC-GLUCOSE METER 137 mg/dL 70-110 H TESTED AT [facility] 6720 (BEAKER) (test code = [place] 1538) [address] BASIC METABOLIC [id number] 17:14:00 Test Item Value Reference Range Interpretation [...] APPLICABLE FOR DIALYSIS PATIEN TS. Call results [id number] ACID, VENOUS, WHOLE [id number] 14:19:00 Test Item Value Reference Range Interpretation Comments LACTATE BLOOD VENOUS (2) (BEAKER) 1.1 mmol/L 0.5-2.2 (test code = 2872) THROMBIN [id number] 13:02:00 Test Item Value Reference Range Interpretation Comments THROMBIN TIME (BEAKER) (test code = 17.8 secs 13.8-20.0 550) [id number] 13:01:00 Test Item Value Reference Range Interpretation Comments PROCALCITONIN (BEAKER) (test code 0.09 ng/mL <0.05 H = 3036) SEPSIS RISK (ng/mL)Low: 0.05-0.50Intermediate: 0.51-2.00High: >=2.011:1 MIXING STUDY, [id number] 12:38:00 Test Item Value Reference Range Interpretation Comments PROTIME (BEAKER) (test code = 15.0 seconds 11.7-14.7 H 759) PARTIAL THROMBOPLASTIN TIME 36.1 seconds 22.5-36.0 H (BEAKER) (test code = 760) PT 1/1 MIX (BEAKER) (test code = 14.4 SECS 11.7-14.7 1595) PTT 1/1 MIX (BEAKER) (test code 35.5 SECS 22.5-36.0 = 1596) TROPONIN [id number] 12:01:00 Test Item Value Reference Range Interpretation Comments TROPONIN I (BEAKER) (test code = 0.13 ng/mL 0.00-0.03 H 397) HCG, QUANTITATIVE, [id number] 11:58:00 Test Item Value Reference Range Interpretation Comments GONADOTROPIN, CHORIONIC (HCG) QUANT < mIU/mL 0-10 (BEAKER) (test code = 649) Non- Females: <10 mIU/mL Females: Gestation Age Reference Range(mIU/mL) 0.2-1 Week 5-50 1-2 Weeks 50-500 2-3 Weeks 100-5,000 3-4 Weeks 500-10,000 4-5 Weeks 1,000-50,000 5-6 Weeks 10,000-100,000 6-8 Weeks 15,000- 200,000 2-3 Months 10,000-100,[id number] 11:55:00 Test Item Value Reference Range Interpretation Comments LIPASE (BEAKER) (test code = 749) 31 U/L 8-78 [id number] 11:55:00 Test Item Value Reference Range Interpretation Comments AMYLASE (BEAKER) (test code = 349) 101 U/L 25-125 COMPREHENSIVE METABOLIC [id number] 11:55:00 Test Item Value Reference Range Interpretation [...] NOT APPLICABLE FOR DIALYSIS PATIEN TS. C-REACTIVE [id number] 11:55:00 Test Item Value Reference Range Interpretation Comments C-REACTIVE PROTEIN (BEAKER) (test 0.42 mg/dL 0.00-0.50 code = 676) LACTIC ACID, VENOUS, WHOLE [id number] 11:51:00 Test Item Value Reference Range Interpretation Comments LACTATE BLOOD VENOUS 1.5 mmol/L 0.5-2.2 Specime n slightly (2) (BEAKER) (test hemolyzed code = 2872) [id number] 11:44:00 Test Item Value Reference Range Interpretation Comments PARTIAL THROMBOPLASTIN TIME 35.4 seconds 22.5-36.0 (BEAKER) (test code = 760) CBC W/PLT COUNT & AUTO [id number] 11:30:00 Test Item Value Reference Range Interpretation [...] PERCENT (BEAKER) (test code = 2801) POCT-GLUCOSE [id number] 11:20:00 Test Item Value Reference Range Interpretation Comments POC-GLUCOSE METER 167 mg/dL 70-110 H TESTED AT [facility] 6720 (BEAKER) (test code = [place] 1538) [address] HEMOGLOBIN [id number] 11:15:00 Test Item Value Reference Range Interpretation Comments HEMOGLOBIN A1C (BEAKER) (test code = 5.6 % 4.3-6.1 368) PROTHROMBIN [id number] 08:24:00 Test Item Value Reference Range Interpretation Comments PROTIME (BEAKER) (test code = 15.3 seconds 11.7-14.7 H 759) INR (BEAKER) (test code = 370) 1.2 <=5.9 RECOMMENDED COUMADIN/WARFARIN INR THERAPY RANGESSTANDARD DOSE: 2.0 - 3.0 Includes: PROPHYLAXIS for venous thrombosis, systemic embolization; TREATMENT for venous thrombosis and/or pulmonary embolus.HIGH RISK: Target INR is 2.5-3.5 for patients with mechanical heart valves.RAD, ABDOMEN/KUB, 1 VIEW [id number] 08:13:00Reason for exam:->abdominal painFINAL REPORT INDICATION:Abdominal pain. [...] Ruiz Verified Date/Time: 07/28/2018 08:13:33 Reading Location: [address] Ortho Consult Reading Room ONIN [id number] 08:11:00 Test Item Value Reference Range Interpretation Comments TROPONIN I (BEAKER) (test code = 0.05 ng/mL 0.00-0.03 H 397) RAD, CHEST, 1 VIEW, NON [id number] 08:10:00Reason for exam:->chest painShould this be performed at the bedside?->YesFINAL REPORT RAD, CHEST, 1 VIEW, NON DEPT INDICATION: chest pain COMPARISON: Prior day's exam FINDINGS: Portable frontal view of the chest. IMPRESSION: Support Lines: None. Lungs and pleura: Clear lungs. No effusion. No pneumothorax.Heart and mediastinum: Unremarkable contours.Additional findings: None. Signed: JR Maya Robert MDReport Verified Date/Time: 07/28/2018 08:10:51 Reading Location: [facility] Radiology Reading Room BASIC METABOLIC [id number] 08:08:00 Test Item Value Reference Range Interpretation [...] S NOT APPLICABLE FOR DIALYSIS PATIEN TS. [id number] 08:04:00 Test Item Value Reference Range Interpretation Comments LIPASE (BEAKER) (test code = 749) 12 U/L 8-78 HEPATIC FUNCTION [id number] 08:04:00 Test Item Value Reference Range Interpretation [...] (test code = 347) hemolyzed COMPLEMENT COMPONENT [id number] 08:03:00 Test Item Value Reference Range Interpretation Comments C4 COMPLEMENT (BEAKER) (test code = 25 mg/dL 15-57 394) COMPLEMENT COMPONENT [id number] 08:03:00 Test Item Value Reference Range Interpretation Comments C3 COMPLEMENT (BEAKER) (test code = 125 mg/dL 82-193 393) POCT-BLOOD GASES, [id number] 07:57:00 Test Item Value Reference Range Interpretation Comments TEMP, CELSIUS-POC 37.0 (BEAKER) (test code = 1834) FIO2-POC (BEAKER) TESTED AT [place] [address] (test code = 1835) [place] [address] PH, ARTERIAL-POC 7.416 7.350-7.450 (BEAKER) (test code [...] L ARTERIAL-POC (BEAKER) (test code = 1841) [id number] 07:57:00 Test Item Value Reference Range Interpretation Comments POC-SODIUM (BEAKER) 146 meq/L 135-148 TESTED A T [place] [address] (test code = 1542) [place] [address] [id number] 07:57:00 Test Item Value Reference Range Interpretation Comments POC-POTASSIUM 2.7 meq/L 3.6-5.5 L TESTED AT [facility] 6720 (BEAKER) (test code [facility] [address] = 1540) [id number] 07:57:00 Test Item Value Reference Range Interpretation Comments POC-GLUCOSE (BEAKER) 176 mg/dL 70-110 H TESTED AT [place] [address] (test code = 1855) [place] [facility] [place] [address] POCT-CALCIUM [id number] 07:57:00 Test Item Value Reference Range Interpretation Comments POC-CALCIUM IONIZED 1.15 mmol/L 1.12-1.27 TESTED A T [facility] 67 (BEAKER) (test code = JOB Ose[place] 1536) [address] [id number] 07:57:00 Test Item Value Reference Range Interpretation Comments POC-HEMATOCRIT 38 % 36-45 TESTED AT [place] [address] (BEAKER) ([facility] [address] 1857) [id number] 07:57:00 Test Item Value Reference Range Interpretation Comments POC-HEMOGLOBIN 12.9 g/dL 12.0-15.0 TESTED AT [place] [address] (BEAKER) (test code [facility] = 1856) [address]PRUEYP AT [place] [address] [facility] [place] [address] POCT-LACTIC ACID, [id number] 07:57:00 Test Item Value Reference Range Interpretation Comments POC-LACTIC ACID, 3.3 mmol/L 0.9-1.7 H TESTED AT [place] [address] VENOUS ([facility]) (test [facility] Sea [facility] code = 2805) [address] CBC W/PLT COUNT & AUTO [id number] 07:47:00 Test Item Value Reference Range Interpretation [...] % 0-1 PERCENT (BEAKER) (test code = 9738)
[2023-01-03] MEDS ORDERED: NA CHLORIDE 0.9% 1,000 ML ONE ×2 (20:13→21:35)
[2023-01-03 20:24] LABS: Absolute Lymphocytes (CBC) 0.8 K/uL (0.7-4.9); Hematocrit 33.6 % (36.0-45.0); Lymphocytes % 3.7 % (15.3-44.8); MPV 7.8 fL (7.6-11.3); RBC Red Blood Cell Count 3.99 M/uL (3.86-4.86)
[2023-01-03 20:28] LABS: Protime INR 1.37
--- NOTE | 2023-01-03 21:02 | RAD REPORT ---
EXAM DESCRIPTION: CT - CTHCSPWOC - 01/03/2023 8:16 pm CLINICAL HISTORY: Dizziness;Mental status change COMPARISON: Head C Spine Mpr Wo Con dated 07/03/2022; CT HEAD CSPINE MPR WO CONTRAST dated 10/12/2013 TECHNIQUE: Axial thin cut noncontrast CT images of the head were obtained. Axial thin cut noncontrast CT images of the cervical spine were obtained. Multiplanar reformatted images were generated and reviewed. All CT scans are performed using dose optimization technique as appropriate and may include automated exposure control or mA/KV adjustment according to patient size. FINDINGS: CT HEAD WITHOUT CONTRAST: No acute hemorrhage, hydrocephalus or extra-axial collection is identified.Mild near confluent perive ntricular and deep white matter hypodensities, nonspecific, and stable, suggestive of chronic small v essel ischemic changes.No areas of brain edema or midline shift. The paranasal sinuses and mastoids are clear.The calvarium is intact. CT CERVICAL SPINE WITHOUT CONTRAST: No fracture or subluxation.No prevertebral soft tissues swelling is identified. IMPRESSION: No acute traumatic intracranial or cervical spine findings.
[2023-01-03 21:08] LABS: ALT/SGPT 13 U/L (13-56); AST/SGOT 19 U/L (15-37); Albumin 2.6 g/dL (3.4-5.0); Alkaline Phosphatase 108 U/L (45-117); BUN Blood Urea Nitrogen 34 mg/dL (7-18); Bicarbonate 21 mEq/L (21-32); Bilirubin Direct 0.5 mg/dL (0-0.2); Bilirubin Total 1.4 mg/dL (0.2-1.0); Glomerular Filtration Rate 14 ml/min (=/>90); Glucose Level 103 mg/dL (74-106); Magnesium 1.3 mg/dL (1.6-2.4); NT PRO-BNP 51437 pg/mL (<125); Potassium 2.8 mEq/L (3.5-5.1); Protein, Total 7.5 g/dL (6.4-8.2); Sodium Level 132 mEq/L (136-145)
[2023-01-03 21:10] LABS: Troponin High Sensitivity 133.5 pg/mL (<58.9)
--- NOTE | 2023-01-03 21:21 | RAD REPORT ---
EXAM DESCRIPTION: Jamest Single View01/03/2023 8:57 pm CLINICAL HISTORY: COUGH COMPARISON: Chest Single View dated 01/26/2022; Abdomen 1 View (KUB) dated 11/26/2021; Chest Single Vi ew dated 11/19/2021; Chest Pa And Lat (2 Views) dated 10/26/2021 TECHNIQUE: Portable AP view of the chest. FINDINGS: Hazy airspace opacification in the left mid lung. No pneumothorax or effusion. Stable card iomegaly. Mediastinal contours are unchanged. IMPRESSION: Left mid lung airspace opacity, concerning for developing pneumonia. Stable cardiomegaly .
[2023-01-03] MEDS ORDERED: NA CHLORIDE 0.9% 100 ML ONE (21:35)
[2023-01-03] MEDS ORDERED: PIPERACIL/TAZO 3.375 GM VIAL IV ONE (21:35)
[2023-01-03] MEDS ORDERED: VANCOMYCIN 1 GM/VIAL ONE (21:35)
[2023-01-03] MEDS ORDERED: NA CHLORIDE 0.9% 250 ML ONE (21:35)
[2023-01-03 22:09] LABS: Blood Morphology Comment NOT SEEN (NOT SEEN); Platelet Estimate ADEQ
[2023-01-03 22:24] LABS: Specific Gravity 1.013 (1.005-1.030); Urine Bacteria <20 /HPF (<20); Urine Bilirubin NEGATIVE (Negative); Urine Blood 1+ (Negative); Urine Clarity Turbid (Clear); Urine Color Yellow (Yellow); Urine Crystals Unidentified Few /HPF (None Seen); Urine Glucose NEGATIVE (Negative); Urine Protein 2+ (Negative); Urine Urobilinogen Normal (Normal); Urine WBC Clump Rare /HPF (None Seen); Urine pH 5.5 (5.0-7.0)
[2023-01-03 22:25] LABS: Barbiturates NEGATIVE (NEGATIVE); Benzodiazepines POSITIVE (NEGATIVE); Cocaine POSITIVE (NEGATIVE); METHAMPHETAM POSITIVE (NEGATIVE); Methadone NEGATIVE (NEGATIVE); Opiates NEGATIVE (NEGATIVE); Phencyclidine NEGATIVE (NEGATIVE); THC Cannibis NEGATIVE (NEGATIVE)
[2023-01-03] MEDS ORDERED: ALBUMIN HUMAN 25% 100 ML IV ONE (22:25)
[2023-01-03] MEDS ORDERED: KCL 20 MEQ/100 mL IVPB 100 ML IV ONE (22:25)
[2023-01-03 22:31] LABS: Barbiturates NEGATIVE (NEGATIVE); Benzodiazepines POSITIVE (NEGATIVE); Cocaine POSITIVE (NEGATIVE); METHAMPHETAM POSITIVE (NEGATIVE); Methadone NEGATIVE (NEGATIVE); Opiates NEGATIVE (NEGATIVE); Phencyclidine NEGATIVE (NEGATIVE); THC Cannibis NEGATIVE (NEGATIVE)
--- NOTE | 2023-01-03 23:34 | ER ---
Nurse's Notes [facility] [place] Name: Babs Younger Age: 52 yrs Sex: Female : 1970 Arrival Date: 01/03/2023 Time: 19:07 Bed 13 Private MD: Diagnosis: Severe sepsis , left lung pneumonia, left lung consolidation, cocaine abuse, methamphetamine abuse, benzodiazepine abuse, generalized weakness, polysubstance abuse Presentation: 01/03 19:11 Chief complaint: EMS states: pt had a fall 2 days ago and is now wanting to get checked as6 out. pt reports she hit her head unknown LOC, pt has chronic pain and takes Eugene. EMS reports pt took 2 approx 1 hour ago, pt is lethargic. Coronavirus screen: At this time, the client does not indicate any symptoms associated with coronavirus-19. Ebola Screen: No symptoms or risks identified at this time. Initial Sepsis Screen: Does the patient meet any 2 criteria? No. Patient's initial sepsis screen is negative. Does the patient have a suspected source of infection? No. Patient's initial sepsis screen is negative. Risk Assessment: Do you want to hurt yourself or someone else? Patient reports no desire to harm self or others. Onset of symptoms was January 01, 2023. 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 - Social history:: Smoking status: unknown. - Family history:: not pertinent. Screenin:15 [facility] ED Fall Risk Assessment (Adult) Score/Fall Risk Level 3 or more points = High as6 Risk. Abuse screen: Denies threats or abuse. Denies injuries from another. Nutritional screening: No deficits noted. Tuberculosis screening: No symptoms or risk factors identified. Assessment: 19:14 General: Appears in no apparent distress. unkempt, Behavior is cooperative, drowsy, as6 quiet. Pain: Complains of pain in head. Neuro: Level of Consciousness is obeys commands, lethargic, Reports headache. Respiratory: Respiratory effort is even, unlabored, Respiratory pattern is regular, symmetrical. 23:20 General: antibiotics were pending due to blood culture draw. Lab had a failed attempt. as6 was able to obtain blood cultures vis ultrasound . Vital Signs: 19:11 BP 96 / 61; Pulse 82; Resp 18; Temp 97.8(O); Pulse Ox 97% on R/A; Weight 88.45 kg (R); as6 Height 5 ft. 2 in. (R); Pain 5/10; 20:00 BP 106 / 76; Pulse 79; Resp 20 S; Pulse Ox 98% on R/A; as6 21:00 BP 115 / 67; Pulse 79; Resp 24 S; Pulse Ox 98% on R/A; as6 22:11 BP 130 / 79; Pulse 76; Resp 24 S; Pulse Ox 98% on R/A; as6 23:00 BP 144 / 80; Pulse 75; Resp 23 S; Pulse Ox 97% on R/A; as6 19:11 Body Mass Index 35.67 (88.45 kg, 157.48 cm) as6 19:11 Pain Scale: Adult as6 ED Course: 19:10 Patient arrived in ED. as6 19:11 Arm band placed on. as6 19:14 Triage completed. as6 19:15 Placed in gown. Bed in low position. Call light in reach. Side rails up X2. Client as6 placed on continuous cardiac and pulse oximetry monitoring. NIBP monitoring applied. 19:35 aMteo Jones, RN is Primary Nurse. as6 19:45 Christiano Elizondo MD is Attending Physician. logan 20:03 Attending Physician role handed off by Christiano Elizondo MD sp4 20:03 Lucas Thomas MD is Attending Physician. sp4 20:12 Inserted saline lock: 20 gauge in right antecubital area, using aseptic technique. as6 Blood collected. ultrasound guided long catheter. 20:18 CT Head C Spine In Process Unspecified. EDMS 20:59 XRAY Chest (1 view) In Process Unspecified. EDMS 22:00 Crenshaw cath inserted, using sterile technique, 16 Fr., by tube splicer, balloon inflated, to mb9 gravity drainage, urine specimen collected. returned heather urine. Patient tolerated well. 22:03 Urine Drug Screen Sent. mb9 22:03 Urinalysis W/Microscopic Sent. mb9 22:45 Inserted saline lock: 20 gauge in left upper arm, using aseptic technique. Blood as6 collected. ultrasound guided long catheter. 23:10 CT Chest Abdomen Pelvis W/O Contrast In Process Unspecified. EDMS 23:32 Juventino Villagran MD is Hospitalizing Provider. sp4 01/04 00:24 No provider procedures requiring assistance completed. Patient admitted, IV remains in as6 place. Administered Medications: 01/03 20:27 Drug: NS 0.9% IV 1000 ml Route: IV; Rate: 125 ml/hr; Site: right antecubital; as6 01/04 00:59 Follow up: Response: No adverse reaction; IV Status: Infusion continued upon admission; as6 IV Intake: 500ml 01/03 21:43 Drug: NS 0.9% IV 1000 ml Route: IV; Rate: 1 bolus; Site: right antecubital; as6 01/04 00:58 Follow up: Response: No adverse reaction; IV Status: Completed infusion; IV Intake: as6 1000ml 01/03 22:30 Drug: Albumin IVPB 25 grams Volume: 100 ml; Route: IVPB; Site: right antecubital; as6 01/04 00:58 Follow up: Response: No adverse reaction; IV Status: Completed infusion; IV Intake: as6 100ml 01/03 22:40 Drug: Potassium Chloride IV 20 mEq Route: IV; Rate: calculated rate; Site: right as6 antecubital; 01/04 00:58 Follow up: Response: No adverse reaction; IV Status: Completed infusion; IV Intake: as6 100ml 01/03 23:00 Drug: Piperacillin-Tazobactam IVPB 3.375 grams Route: IVPB; Infused Over: 60 mins; as6 Site: right antecubital; 01/04 00:59 Follow up: Response: No adverse reaction; IV Status: Completed infusion; IV Intake: as6 100ml 01/03 23:59 Drug: vancoMYCIN IVPB 1 grams Route: IVPB; Infused Over: 2 hrs; Site: left upper arm; as6 01/04 00:59 Follow up: Response: No adverse reaction; IV Status: Infusion continued upon admission; as6 IV Intake: 150ml 00:29 CANCELLED (Other Intervention Used): Aspirin PO Chewable Tablet 324 mg PO once; 81 mg la1 tablets x 4 Medication: 01/03 22:04 VIS not applicable for this client. mb9 Intake: 01/04 00:58 IV: 100ml; Total: 100ml. as6 00:58 IV: 100ml; Total: 200ml. as6 00:58 IV: 1000ml; Total: 1200ml. as6 00:59 IV: 100ml; Total: 1300ml. as6 00:59 IV: 150ml; Total: 1450ml. as6 00:59 IV: 500ml; Total: 1950ml. as6 Outcome: 01/03 23:33 Decision to Hospitalize by Provider. spLexi 01/04 00:24 Admitted to Med/surg accompanied by tech, via stretcher, room 220, with chart. as6 Condition: stable Instructed on the need for admit. 00:59 Patient left the ED. as6 Signatures: Dispatcher [employer] EDChristiano Saxena MD MD cha Slawson, Ashby, RN RN as6 Sarah Thompson RN RN mb9 Lucas Thomas MD MD sp4 Abdoul Novak [facility]
--- NOTE | 2023-01-03 23:34 | EDPHYS ---
Physician Documentation [facility] [place] Name: Babs Younger Age: 52 yrs Sex: Female : 1970 Arrival Date: 01/03/2023 Time: 19:07 Bed 13 Private MD: ED Physician Lcuas Thomas HPI: 01/03 20:04 This 52 yrs old Black Female presents to ER via EMS with complaints of fall and sp4 headache . 21:58 Patient arrived with EMS in a somnolent condition but was able to report that she fell sp4 4 days ago and developed a headache. On presentation patient was pale and somnolent, mildly hypotensive. Patient reports that she has generalized weakness and feeling unwell. Patient awakens on a sternal rub. . Past medical history reveals hypertension, hyperlipidemia, lupus nephritis, systemic lupus erythematosus, recurrent abdominal pain, history of bloody diarrhea, history of chronic pain. Home medications include hydralazine, metoprolol, amlodipine, gabapentin, Plaquenil, Ambien, CellCept, ondansetron, Xanax, sodium bicarbonate tablets, calcitriol, Cardura, Wiley 7.5 as needed pain, clonidine, metronidazole. Additional past medical history includes seizure disorder, small bowel obstruction, ileostomy, coronary artery disease, avascular necrosis, history of depression, chronic kidney disease stage IV, history of , hysterectomy, bowel resection, colostomy, prior tracheostomy with reversal, removal of colostomy now with ileostomy. . LOAF COUNTER: 01/04 00:24 LMP N/A - Post-menopause as6 Historical: - Allergies: 01/03 19:14 Morphine; as6 19:14 SHELLFISH; as6 - PMHx: 19:14 bowel obstruction; Lupus; Seizures; Hypertension; ESRD; Diabetes - IDDM; Renal Disease; as6 - PSHx: 19:14 Colostomy reversal; as6 - Immunization history:: Adult Immunizations unknown. - Social history:: Smoking status: unknown. - Family history:: not pertinent. ROS: 21:58 Constitutional: Negative for fever, chills, and weight loss, positive for generalized sp4 weakness, positive for fall and head Eyes: Negative for injury, pain, redness, and discharge. 22:03 ENT: Negative for injury, pain, and discharge, Neck: Negative for injury, pain, and sp4 swelling, Cardiovascular: Negative for chest pain, palpitations, and edema, Respiratory: Negative for shortness of breath, cough, wheezing, and pleuritic chest pain, Abdomen/GI: Negative for abdominal pain, nausea, vomiting, diarrhea, and constipation, Back: Negative for injury and pain, : Negative for injury, bleeding, discharge, and swelling, MS/Extremity: Negative for injury and deformity, Skin: Negative for injury, rash, and discoloration, Neuro: Negative for headache, numbness, tingling, and seizure, positive for generalized weakness Psych: Negative for depression, anxiety, Allergy/Immunology: Negative for hives, rash, and allergies Endocrine: Negative for neck swelling, polydipsia, polyuria, polyphagia, and weight changes Hematologic/Lymphatic: Negative for swollen nodes, abnormal bleeding, and unusual bruising Exam: 22:03 Constitutional: This is a well developed, positive for ill-appearing female, toxic sp4 appearing, generalized weakness. Awakens on sternal rub, generalized pallor, alopecia Head/Face: Normocephalic, atraumatic. Eyes: Pupils equal round and reactive to light, extra-ocular motions intact. Lids and lashes normal. Conjunctiva and sclera are not injected. Cornea within normal limits. Periorbital areas with no swelling, redness, or edema. ENT: Nares patent. No nasal discharge, no septal abnormalities noted. Tympanic membranes are normal and external auditory canals are clear. Oropharynx with no redness, swelling, or masses, exudates, or evidence of obstruction, uvula midline. Mucous membranes moist. Neck: Trachea midline, no thyromegaly or masses palpated, and no cervical lymphadenopathy. Supple, full range of motion without nuchal rigidity, or vertebral point tenderness. No Meningismus. Chest/axilla: Normal chest wall appearance and motion. Nontender with no deformity. No lesions are appreciated. Cardiovascular: Regular rate and rhythm with a normal S1 and S2. No gallops, murmurs, or rubs. Normal PMI, no JVD. No pulse deficits. Respiratory: Lungs have equal breath sounds bilaterally, clear to auscultation and percussion. No rales, rhonchi or wheezes noted. No increased work of breathing, no retractions or nasal flaring. Abdomen/GI: Soft, non-tender, with normal bowel sounds. No distension or tympany. No guarding or rebound. No evidence of tenderness throughout. Back: No spinal tenderness. No costovertebral tenderness. Skin: Warm, dry with normal turgor. Normal color with no rashes, no lesions, and no evidence of cellulitis. Multiple scars from prior surgery MS/ Extremity: Pulses equal, no cyanosis. Neurovascular intact. Full, normal range of motion. Neuro: Awake and alert, GCS 15, oriented to person, place, Cranial nerves II-XII grossly intact. Motor strength 5/5 in all extremities. Sensory grossly intact. There is generalized weakness, cooperative on exam, nonambulatory secondary to generalized weakness Psych: Wakes up with sternal rub, with orientation to person, place 22:10 ECG was reviewed by the Attending Physician. EKG time 2001, there is normal sinus sp4 rhythm with sinus arrhythmia and premature atrial contractions at the rate of 80 beats per minute. No ST elevation or depression Vital Signs: 19:11 BP 96 / 61; Pulse 82; Resp 18; Temp 97.8(O); Pulse Ox 97% on R/A; Weight 88.45 kg (R); as6 Height 5 ft. 2 in. (R); Pain 5/10; 20:00 BP 106 / 76; Pulse 79; Resp 20 S; Pulse Ox 98% on R/A; as6 21:00 BP 115 / 67; Pulse 79; Resp 24 S; Pulse Ox 98% on R/A; as6 22:11 BP 130 / 79; Pulse 76; Resp 24 S; Pulse Ox 98% on R/A; as6 23:00 BP 144 / 80; Pulse 75; Resp 23 S; Pulse Ox 97% on R/A; as6 19:11 Body Mass Index 35.67 (88.45 kg, 157.48 cm) as6 19:11 Pain Scale: Adult as6 MDM: 19:45 Patient medically screened. logan 23:29 Differential Diagnosis altered mental status, sepsis, flu. Data reviewed: vital signs, sp4 nurses notes, EMS record, old medical records, lab test result(s), EKG, radiologic studies, CT scan, plain films. Consideration of Admission/Observation Patient was admitted/placed on observation. Escalation of care including admission/observation considered. Management of patient was discussed with the following: Hospitalist: Hospitalist Dr. Villagran / Abdoul . ED course: Patient tested positive for methamphetamines, cocaine, benzodiazepines. Patient is not admitting to doing any substances apart from taking Adderall. Patient CT revealed moderate left midlung consolidative changes consistent with acute bacterial pneumonia. Positive MRSA pneumonia vancomycin was given. Patient requires IV hydration as well blood pressure has improved and patient is hemodynamically stable at this. Elevated troponin likely secondary to cocaine abuse, patient still appears unwell pale and ill, patient will warrant consultation with nephrology as well. . 01/03 19:45 Order name: Basic Metabolic Panel; Complete Time: 21:50 [facility] 01/03 19:45 Order name: CBC with Diff; Complete Time: 22:13 [facility] 01/03 19:45 Order name: LFT's; Complete Time: 21:50 [facility] 01/03 19:45 Order name: Magnesium; Complete Time: 21:50 [facility] 01/03 19:45 Order name: NT PRO-BNP; Complete Time: 21:50 [facility] 01/03 19:45 Order name: PT-INR; Complete Time: 20:59 [facility] 01/03 19:45 Order name: Troponin HS; Complete Time: 21:50 [facility] 01/03 19:45 Order name: Acetaminophen; Complete Time: 21:50 [facility] 01/03 19:45 Order name: ETOH Level; Complete Time: 20:59 [facility] 01/03 19:45 Order name: Ptt, Activated; Complete Time: 20:59 [facility] 01/03 19:45 Order name: Salicylate; Complete Time: 20:59 [facility] 01/03 19:45 Order name: Urine Drug Screen; Complete Time: 23:25 [facility] 01/03 20:10 Order name: Type And Screen [facility] 01/03 21:00 Order name: Urinalysis W/Microscopic; Complete Time: 23:25 [facility] 01/03 21:00 Order name: Urine Drug Screen; Complete Time: 23:25 [facility] 01/03 21:00 Order name: Lactate w/ 2H reflex if indic.; Complete Time: 23:25 [facility] 01/03 21:00 Order name: Blood Culture Adult (2) [facility] 01/03 22:10 Order name: Manual Differential; Complete Time: 22:13 [facility] 01/03 19:45 Order name: XRAY Chest (1 view); Complete Time: 21:50 [facility] 01/03 19:45 Order name: CT Head C Spine; Complete Time: 21:50 [facility] 01/03 22:17 Order name: CT Chest Abdomen Pelvis W/O Contrast sp4 01/03 19:45 Order name: EKG; Complete Time: 19:46 [facility] 01/03 19:45 Order name: Cardiac monitoring; Complete Time: 19:47 [facility] 01/03 19:45 Order name: EKG - Nurse/Tech; Complete Time: 20:05 [facility] 01/03 19:45 Order name: IV Saline Lock; Complete Time: 20:06 [facility] 01/03 19:45 Order name: Labs collected and sent; Complete Time: 20:06 [facility] 01/03 19:45 Order name: O2 Per Protocol; Complete Time: 19:47 [facility] 01/03 19:45 Order name: O2 Sat Monitoring; Complete Time: 19:47 [facility] 01/03 19:45 Order name: Suicide Screening ([place]); Complete Time: 19:47 [facility] 01/03 21:00 Order name: Crenshaw; Complete Time: 22:03 sp4 EC:10 Rate is 80 beats/min. Rhythm is irregular, Sinus Rhythm with PACs. MA interval is sp4 normal. QRS interval is normal. No ST changes noted. Clinical impression: No evidence of ischemia. Interpreted by me. Administered Medications: 20:27 Drug: NS 0.9% IV 1000 ml Route: IV; Rate: 125 ml/hr; Site: right antecubital; 01/04 00:59 Follow up: Response: No adverse reaction; IV Status: Infusion continued upon admission; as6 IV Intake: 500ml 01/03 21:43 Drug: NS 0.9% IV 1000 ml Route: IV; Rate: 1 bolus; Site: right antecubital; 01/04 00:58 Follow up: Response: No adverse reaction; IV Status: Completed infusion; IV Intake: as6 1000ml 01/03 22:30 Drug: Albumin IVPB 25 grams Volume: 100 ml; Route: IVPB; Site: right antecubital; 01/04 00:58 Follow up: Response: No adverse reaction; IV Status: Completed infusion; IV Intake: as6 100ml 01/03 22:40 Drug: Potassium Chloride IV 20 mEq Route: IV; Rate: calculated rate; Site: right as6 antecubital; 01/04 00:58 Follow up: Response: No adverse reaction; IV Status: Completed infusion; IV Intake: as6 100ml 01/03 23:00 Drug: Piperacillin-Tazobactam IVPB 3.375 grams Route: IVPB; Infused Over: 60 mins; as6 Site: right antecubital; 01/04 00:59 Follow up: Response: No adverse reaction; IV Status: Completed infusion; IV Intake: as6 100ml 01/03 23:59 Drug: vancoMYCIN IVPB 1 grams Route: IVPB; Infused Over: 2 hrs; Site: left upper arm; as6 01/04 00:59 Follow up: Response: No adverse reaction; IV Status: Infusion continued upon admission; as6 IV Intake: 150ml 00:29 CANCELLED (Other Intervention Used): Aspirin PO Chewable Tablet 324 mg PO once; 81 mg la1 tablets x 4 Disposition Summary: 01/03/23 23:33 Hospitalization Ordered Hospitalization Status: Inpatient Admission sp4 Provider: Juventino Villagran spLexi [facility] sp4 Condition: Serious sp4 Problem: new sp4 Symptoms: have improved sp4 Bed/Room Type: Standard sp4 Room Assignment: 220(01/04/23 00:05) kd3 Diagnosis - Severe sepsis , left lung pneumonia, left lung consolidation, cocaine abuse, sp4 methamphetamine abuse, benzodiazepine abuse, generalized weakness, polysubstance abuse Forms: - Medication Reconciliation Form sp4 - SBAR form sp4 Critical care time excluding procedures: 01/03 23:29 Critical care time: Bedside Care: 36 minutes, Consultation: 12 minutes. Total time: 48 sp4 minutes Signatures: Dispatcher [employer] EDChristiano Saxena MD MD cha Attema, Lee, CANAL BOAT OPERATOR-C CANAL BOAT OPERATOR-Cla1 Mateo Jones RN RN as6 Reba Perez RN RN kd3 Lucas Thomas MD MD sp4 Corrections: (The following items were deleted from the chart) 01/04 00:01/03 23:33 sp4 kd3 01/04 00:29 00:29 Aspirin PO Chewable Tablet 324 mg PO once; 81 mg tablets x 4 ordered. la1 la1
--- NOTE | 2023-01-04 00:32 | P.HP ---
Certification for Inpatient Patient admitted to: Inpatient With expected LOS: >2 Midnights Patient will require the following post-hospital care: None Practitioner: I am a practitioner with admitting privileges, knowledge of patient current condition, hospital course, and medical plan of care. Services: Services provided to patient in accordance with Admission requirements found in Title 42 Section 412.3 of the Code of Federal Regulations <Abdoul Novak - Last Filed: 01/04/23 00:24> Patient History Date of Service: 01/04/23 Reason for admission: Pneumonia, severe sepsis History of Present Illness: 52-year-old female with history of systemic lupus erythematous, pgi-vmnjaxd-oyxyjizbn diabetes, CKD 4, hypertension, hyperlipidemia, lupus nephritis/lupus cerebritis presents to emergency department with chief complaint of weakness, fall. She reports she fell yesterday when getting out of bed has been feeling weak since then. She has been taking [place] at home as well. She was evaluated in the emergency department her labs were significant for leukocytosis white blood cell count 20.9 hemoglobin 10.7 hematocrit 33.6 sodium 132 potassium 2.8 creatinine 3.7 GFR 14 high-sensitivity opponent 133.5 BNP 51,437 UDS positive for amphetamines, benzodiazepines, cocaine CT chest abdomen pelvis without contrast shows large left lower lobe pneumonia. Large wid[place]outh ventral hernia. No definite bowel obstruction. Patient denies abdominal pain at this time, meets criteria for severe sepsis given leukocytosis, tachypnea, source of infection with pneumonia. Initial lactate 2.0 endorgan damage with acute kidney injury. She was given IV antibiotics, ED provider wishes to admit for severe sepsis, pneumonia, acute kidney injury. - Past Medical/Surgical History Diabetic: No -: Lupus, Rheumatology-Dr. Rothman -: HTN -: Seizure disorder -: History of Small bowel obstruction -: Ileostomy in place -: CAD -: History of avascular necrosis -: History of pyelonephritis -: Depression with history of suicidal ideation -: depression -: CKD, Lupus Nephritis followed by Dr. Jean-Baptiste -: -: Hysterectomy -: Bowel resection -: Colostomy -: trach (reversed) -: Removal of colostomy Psychosocial/ Personal History: single, one child. - Family History Sister Notes: lupus Father -: Kidney disease Notes: Mother -: Hypertension, Cancer Notes: , uterine Brother -: Hypertension, Diabetes - Social History Alcohol use: No CD- Drugs: No Caffeine use: Yes Place of Residence: Home <ScarletAbdoul Wilson - Last Filed: 01/04/23 00:24> Date of Service: 01/04/23 <Juventino Villagran - Last Filed: 01/04/23 17:40> Allergies morphine Allergy (Severe, Verified 09/07/17 09:12) Unknown Home Medications: Metoprolol Tartrate 100 mg PO BID 07/09/15 Hydroxychloroquine [Plaquenil*] 200 mg PO BID 09/07/17 Zolpidem Tartrate [Ambien] 10 mg PO BEDTIME PRN PRN 09/07/17 calcitrioL [Rocaltrol] 0.25 mcg PO Q48H 11/19/21 Alprazolam [Xanax] 1 tab PO BID PRN 01/04/23 Amlodipine [Norvasc*] 1 tab PO DAILY 01/04/23 Dextroamphetamine/Amphetamine [Adderall 20 mg Tablet] 1 tab PO DAILY 01/04/23 Doxazosin [Cardura*] 1 tab PO DAILY 01/04/23 Escitalopram [Lexapro*] 1 tab PO DAILY 01/04/23 Furosemide 1 tab PO DAILY 01/04/23 Gabapentin 2 tab PO BID 01/04/23 cloNIDine HCL [Catapres*] 0.3 mg PO TID 01/04/23 Review of Systems 10-point ROS is otherwise unremarkable General: Weakness, Malaise <Abdoul Novak - Last Filed: 01/04/23 00:24> Physical Examination - Physical Exam General: Alert, In no apparent distress, Oriented x3 HEENT: Atraumatic, PERRLA, Mucous membr. moist/pink, EOMI, Sclerae nonicteric Neck: Supple, 2+ carotid pulse no bruit, No LAD, Without JVD or thyroid abnormality Respiratory: Diminished Cardiovascular: No edema, Regular rate/rhythm, Normal S1 S2 Capillary refill: <2 Seconds Gastrointestinal: Normal bowel sounds, Tenderness (Mild epigastric tenderness) Musculoskeletal: No tenderness Integumentary: No rashes Neurological: Normal speech, Normal strength at 5/5 x4 extr, Normal tone, Normal affect - Studies Laboratory Data (last 24 hrs) 01/03/23 20:01: PT 15.1 H, INR 1.37, APTT 26.6 01/03/23 20:01: WBC 20.90 H, Hgb 10.7 L, Hct 33.6 L, Plt Count 179 01/03/23 20:01: Sodium 132 L, Potassium 2.8 L, BUN 34 H, Creatinine 3.70 H, Glucose 103, Magnesium 1.3 L, Total Bilirubin 1.4 H, AST 19, ALT 13, Alkaline Phosphatase 108 <Abdoul Novak - Last Filed: 01/04/23 00:24> - Studies Laboratory Data (last 24 hrs) 01/03/23 20:01: PT 15.1 H, INR 1.37, APTT 26.6 01/03/23 20:01: WBC 20.90 H, Hgb 10.7 L, Hct 33.6 L, Plt Count 179 01/03/23 20:01: Sodium 132 L, Potassium 2.8 L, BUN 34 H, Creatinine 3.70 H, Glucose 103, Magnesium 1.3 L, Total Bilirubin 1.4 H, AST 19, ALT 13, Alkaline Phosphatase 108 <Juventino Villagran - Last Filed: 01/04/23 17:40> Assessment and Plan - Plan Assessment: Severe sepsis secondary to left sided pneumonia DAE on CKD 4 secondary to severe sepsis with history of lupus nephritis NSTEMI SLE Diabetes mellitus type [id number] Hypertension Seizure disorder Plan: Severe sepsis secondary to left sided pneumonia SIRS criteria present including tachypnea, leukocytosis source of infection confirmed on x-ray/CT with left-sided pneumonia. Endorgan damage with acute kidney injury, lactate less than 4 and no hypotension therefore 30 cc/kg IV fluid bolus not given. Continue to antibiotics vancomycin/cefepime, blood cultures obtained. DAE on CKD 4 secondary to severe sepsis with history of lupus nephritis Nephrology consulted, continue IV fluids, continue patient's home medications when verified. NSTEMI No chest pain, no STEMI criteria present on EKG. Cardiology consult, monitor te lemetry, trend troponins, echocardiogram ordered. SLE Continue home medications once verified Diabetes mellitus type [id number] Sliding scale insulin, patient reports being taken off of her insulin/oral antidiabetic agents as her blood sugar has not been elevated currently it is around 100. Will monitor. Hypertension Obtain and continue home medications Seizure disorder Patient reports she is not on any medication for seizures, last seizure a few months ago. DVT PPX: Heparin subcu Code status: Full Discharge Plan: Home Plan to discharge in: 72 Hours - Advance Directives Does patient have a Living Will: No Does patient have a Durable POA for Healthcare: No - Code Status/Comfort Care Code Status Assessed: Yes (Full code) Critical Care: No Time Spent Managing Pts Care (In Minutes): 70 <Abdoul Novak - Last Filed: 01/04/23 00:24> Physician Review: Patient Assessed, Agree with Above Assessment and Plan <Juventino Villagran - Last Filed: 01/04/23 17:40>
[2023-01-04] MEDS: NA CHLORIDE 0.9% 1,000 ML IV SCH ×2 (01:26→08:42)
[2023-01-04] MEDS ORDERED: VANCOMYCIN 1 GM in NA CHLORIDE 0.9% 250 ML IVPB SCH (01:26)
[2023-01-04] MEDS ORDERED: VANCOMYCIN 500 MG in NA CHLORIDE 0.9% 100 ML IVPB ONE (02:00)
[2023-01-04] MEDS ORDERED: VANCOMYCIN 500 MG/VIAL ONE (02:32)
[2023-01-04] MEDS ORDERED: NA CHLORIDE 0.9% 100 ML ONE (02:33)
[2023-01-04 03:54] LABS: Hematocrit 27.1 % (36.0-45.0); Lymphocytes % 4.7 % (15.3-44.8); MCV 84.2 fL (80-100); MPV 7.7 fL (7.6-11.3); RBC Red Blood Cell Count 3.21 M/uL (3.86-4.86)
[2023-01-04 04:11] LABS: Potassium 3.2 mEq/L (3.5-5.1)
[2023-01-04 04:17] LABS: Troponin High Sensitivity 197.6 pg/mL (<58.9)
[2023-01-04] MEDS: INSULIN -REGULAR HUMAN 50 UNIT/0.5 ML ML SQ SCH ×4 (07:30→21:00)
--- NOTE | 2023-01-04 08:10 | P.CNS ---
Date of Consult: 01/04/23 Reason for Consult: DAE/ CKD Requesting Physician: Juventino Villagran Chief Complaint: Pneumonia, severe sepsis History of Present Illness: 52-year-old female with history of systemic lupus erythematous, fkg-arajohp-rsezthldy diabetes, CKD 4, hypertension, hyperlipidemia, lupus nephritis/lupus cerebritis presents to emergency department with chief complaint of weakness, fall. She reports she fell yesterday when getting out of bed has b een feeling weak since then. She has been taking [place] at home as well. She was evaluated in the emergency department her labs were significant for leukocytosis white blood cell count 20.9 hemoglobin 10.7 hematocrit 33.6 sodium 132 potassium 2.8 creatinine 3.7 GFR 14 high-sensitivity opponent 133.5 BNP 51,437 UDS positive for amphetamines, benzodiazepines, cocaine CT chest abdomen pelvis without contrast shows large left lower lobe pneumonia. Large [place] ventral hernia. No definite bowel obstruction. Patient denies abdominal pain at this time, meets criteria for severe sepsis given leukocytosis, tachypnea, source of infection with pneumonia. Initial lactate 2.0 endorgan damage with acute kidney injury. She was given IV antibiotics, ED provider wishes to admit for severe sepsis, pneumonia, acute kidney injury. 20:04 This 52 yrs old Black Female presents to ER via EMS with complaints of fall and sp4 headache . 21:58 Patient arrived with EMS in a somnolent condition but was able to report that she fell sp4 4 days ago and developed a headache. On presentation patient was pale and somnolent, mildly hypotensive. Patient reports that she has generalized weaknes s and feeling unwell. Patient awakens on a sternal rub. . Past medical history reveals hypertension, hyperlipidemia, lupus nephritis, systemic lupus erythematosus, recurrent abdominal pain, history of bloody diarrhea, history of chronic pain. Home medications include hydralazine, metoprolol, amlodipine, gabapentin, Plaquenil, Ambien, CellCept, ondansetron, Xanax, sodium bicarbonate tablets, calcitriol, Cardura, [place] 7.5 as needed pain, clonidine, metronidazole. Additional past medical history includes seizure disorder, small bowel obstruction, ileostomy, coronary artery disease, avascular necrosis, history of depression, chronic kidney disease stage IV, history of C- section, hysterectomy, bowel resection, colostomy, prior tracheostomy with reversal, removal of colostomy now with ileostomy. Allergies morphine Allergy (Severe, Verified 09/07/17 09:12) Unknown Home medications list reviewed: Yes Home Medications: Metoprolol Tartrate 100 mg PO BID 07/09/15 Hydroxychloroquine [Plaquenil*] 200 mg PO BID 09/07/17 Zolpidem Tartrate [Ambien] 10 mg PO BEDTIME PRN PRN 09/07/17 calcitrioL [Rocaltrol] 0.25 mcg PO Q48H 11/19/21 Alprazolam [Xanax] 1 tab PO BID PRN 01/04/23 Amlodipine [Norvasc*] 1 tab PO DAILY 01/04/23 Dextroamphetamine/Amphetamine [Adderall 20 mg Tablet] 1 tab PO DAILY 01/04/23 Doxazosin [Cardura*] 1 tab PO DAILY 01/04/23 Escitalopram [Lexapro*] 1 tab PO DAILY 01/04/23 Furosemide 1 tab PO DAILY 01/04/23 Gabapentin 2 tab PO BID 01/04/23 cloNIDine HCL [Catapres*] 0.3 mg PO TID 01/04/23 - Past Medical/Surgical History Diabetic: No -: Lupus, Rheumatology-Dr. Rothman -: HTN -: Seizure disorder -: History of Small bowel obstruction -: Ileostomy in place -: CAD -: History of avascular necrosis -: History of pyelonephritis -: Depression with history of suicidal ideation -: depression -: CKD IV/ Lupus Nephritis followed by Dr. Jean-Baptiste -: -: Hysterectomy -: Bowel resection -: Colostomy -: trach (reversed) -: Removal of colostomy Psychosocial/ Personal History: single, one child. - Family History Sister Notes: lupus Father Medical History: Kidney disease Notes: Mother Medical History: Hypertension, Cancer Notes: , uterine Brother Medical History: Hypertension, Diabetes - Social History Smoking Status: Unknown if ever smoked Alcohol use: No CD- Drugs: No Caffeine use: Yes Place of Residence: Home Review of Systems 10-point ROS is otherwise unremarkable General: Weakness, Malaise Musculoskeletal: Back Pain Neurological: Weakness Physical Examination Temp Pulse Resp BP Pulse Ox 97.5 F 74 18 151/73 H 97 01/04/23 01:45 01/04/23 01:45 01/04/23 01:45 01/04/23 01:45 01/04/23 01:45 General: Oriented x3, Cooperative, Mild distress HEENT: Atraumatic Neck: Supple Respiratory: Clear to auscultation bilaterally Cardiovascular: No edema, Regular rate/rhythm Gastrointestinal: Soft and benign, Non-distended Musculoskeletal: No clubbing, No contractures Integumentary: No rashes, No cyanosis Neurological: Normal speech Laboratory Data (last 24 hrs) 01/03/23 20:01: PT 15.1 H, INR 1.37, APTT 26.6 01/03/23 20:01: WBC 20.90 H, Hgb 10.7 L, Hct 33.6 L, Plt Count 179 01/03/23 20:01: Sodium 132 L, Potassium 2.8 L, BUN 34 H, Creatinine 3.70 H, Glucose 103, Magnesium 1.3 L, Total Bilirubin 1.4 H, AST 19, ALT 13, Alkaline Phosphatase 108 Imagings Data: EXAM DESCRIPTION: RADChest Single View01/03/2023 8:57 pm CLINICAL HISTORY: COUGH COMPARISON: Chest Single View dated 01/26/2022; Abdomen 1 View (KUB) dated 11/26/2021; Chest Single View dated 11/19/2021; Chest Pa And Lat (2 Views) dated 10/26/2021 TECHNIQUE: Portable AP view of the chest. FINDINGS: Hazy airspace opacification in the left mid lung. No pneumothorax or effusion. Stable cardiomegaly. Mediastinal contours are unchanged. IMPRESSION: Left mid lung airspace opacity, concerning for developing pneumonia. Stable cardiomegaly EXAM DESCRIPTION: CT CHEST ABDOMEN PELVIS WITHOUT IV CONTRAST CLINICAL HISTORY: ABDOMINAL DISTENTION COMPARISON: 07/14/2022. TECHNIQUE: CT CHEST ABDOMEN PELVIS WITHOUT IV CONTRAST on 01/03/2023 10:17 PM CDT This exam was performed according to our departmental dose-optimization program, which includes automated exposure control, adjustment of the mA and/or kV according to patient size and/or use of iterative reconstruction technique. FINDINGS: Chest: The heart is enlarged. There is no pericardial effusion. Intrathoracic lymph nodes are not enlarged. There is no pleural effusion, pleural thickening or pneumothorax. Central airways are patent. There is a large consolidation replacing much of the left lower lobe. There is mild right basilar atelectasis near the diaphragms. Abdomen: Liver is fatty in attenuation. There is no biliary dilatation. Gallbladder is normal in appearance. The pancreas and spleen are normal in appearance. The adrenal glands are normal. Right kidney is minimally atrophic with mild to moderate left renal atrophy. Extensive [place] ventral hernia is present anteriorly. Abdominal aorta is normal in course and caliber without aneurysm. There is no free air. There is no retroperitoneal adenopathy. Pelvis: There are postoperative changes of the bowel with at least the sigmoid colon anastomosis. Urinary bladder is decompressed with a Crenshaw catheter. There is no free fluid. Appendix is not clearly seen. Hysterectomy was performed. Skeleton: There are no acute osseous findings. No suspicious bony lesions. IMPRESSION: Large left lower lobe pneumonia. Large [place] ventral hernia. No definite bowel obstruction. EXAM DESCRIPTION: US - Renal Ultrasound-Complete - 01/04/2023 5:07 am CLINICAL HISTORY: dae Flank pain COMPARISON: Renal Ultrasound-Complete dated 07/13/2016 FINDINGS: Both kidneys are small in size and highly echogenic. Small cysts are present bilaterally, benign appearance. The right kidney measures 7.6 x 3.9 x 3.1 cm. No hydronephrosis, focal mass or perinephric fluid. The left kidney measures 7.8 x 5.1 x 3.2 cm. No hydronephrosis, focal mass or perinephric fluid. The urinary bladder is incompletely distended without gross abnormality seen. IMPRESSION: Both kidneys are echogenic and small in size compatible with medical renal disease. Conclusions/Impression: Stage I DAE likely due to hypovolemia complicated by hypotension on admission CKD IV with Proteinuria Hx Lupus Nephritis -No NSAIDs -Change IVF to 1/2NS Hypokalemia -Replete potassium Metabolic Acidosis -Start oral bicarb Hypomagnesemia -Start MagOx HTN with CKD -Restart home antihypertensives DM II with CKD -RISS Hypoalbuminemia -Consider protein supplementation LLL PNA -Continue Abx Cocaine abuse -Recommend cessation Case reviewed with Dr. Villagran Thank you kindly for the consultation
--- NOTE | 2023-01-04 08:33 | RAD REPORT ---
EXAM DESCRIPTION: US - Renal Ultrasound-Complete - 01/04/2023 5:07 am CLINICAL HISTORY: caden Flank pain COMPARISON: Renal Ultrasound-Complete dated 07/13/2016 FINDINGS: Both kidneys are small in size and highly echogenic. Small cysts are present bilaterally, benign appearance. The right kidney measures 7.6 x 3.9 x 3.1 cm. No hydronephrosis, focal mass or perinephric fluid. The left kidney measures 7.8 x 5.1 x 3.2 cm. No hydronephrosis, focal mass or perinephric fluid. The urinary bladder is incompletely distended without gross abnormality seen. IMPRESSION: Both kidneys are echogenic and small in size compatible with medical renal disease.
[2023-01-04] MEDS: CEFEPIME 1 GM in NA CHLORIDE 0.9% 100 ML IV SCH (08:39)
[2023-01-04] MEDS: HEPARIN 5000 UNIT/ML 1 ML VIAL SQ SCH ×2 (08:40→21:18)
[2023-01-04] MEDS: ASPIRIN EC 81 MG TAB PO SCH (08:40)
--- NOTE | 2023-01-04 10:40 | RAD REPORT ---
EXAM DESCRIPTION: CT CHEST ABDOMEN PELVIS WITHOUT IV CONTRAST CLINICAL HISTORY: ABDOMINAL DISTENTION COMPARISON: 07/14/2022. TECHNIQUE: CT CHEST ABDOMEN PELVIS WITHOUT IV CONTRAST on 01/03/2023 10:17 PM CDT This exam was performed according to our departmental dose-optimization program, which includes autom ated exposure control, adjustment of the mA and/or kV according to patient size and/or use of iterati ve reconstruction technique. FINDINGS: Chest: The heart is enlarged. There is no pericardial effusion. Intrathoracic lymph nodes are not enlarged. There is no pleural effusion, pleural thickening or pneumothorax. Central airways are patent. There i s a large consolidation replacing much of the left lower lobe. There is mild right basilar atelectasi s near the diaphragms. Abdomen: Liver is fatty in attenuation. There is no biliary dilatation. Gallbladder is normal in appe arance. The pancreas and spleen are normal in appearance. The adrenal glands are normal. Right kidney is minimally atrophic with mild to moderate left renal atrophy. Extensive [place] ventral hernia i s present anteriorly. Abdominal aorta is normal in course and caliber without aneurysm. There is no free air. There is no r etroperitoneal adenopathy. Pelvis: There are postoperative changes of the bowel with at least the sigmoid colon anastomosis. Uri nary bladder is decompressed with a Crenshaw catheter. There is no free fluid. Appendix is not clearly s een. Hysterectomy was performed. Skeleton: There are no acute osseous findings. No suspicious bony lesions. IMPRESSION: Large left lower lobe pneumonia. Large [place] ventral hernia. No definite bowel obstruction. Electronically signed by: Taye Olivier MD 01/03/2023 11:28 PM CDT Due to temporary technical issues with the PACS/Fluency reporting system, reports are being signed by the in house radiologists without review as a courtesy to insure prompt reporting. The interpreting radiologist is fully responsible for the content of the report.
[2023-01-04] MEDS: HYDROCODONE/APAP 5/325 MG TAB PO PRN (10:52)
[2023-01-04] MEDS ORDERED: AMLODIPINE 5 MG TAB PO SCH (15:15)
[2023-01-04] MEDS ORDERED: METOPROLOL TAR 50 MG TAB PO SCH (15:15)
--- NOTE | 2023-01-04 15:36 | EKG ---
Test Date: 2023-01-03 Test Time: 20:02:36 Canvas Repairer: SONNY MEASUREMENT RESULTS: Intervals: Rate: 80 FL: 182 QRSD: 94 QT: 502 QTc: 578 [place]: P: 42 FL: 182 QRS: -27 T: 93 INTERPRETIVE STATEMENTS: Sinus rhythm with premature atrial complexes Left ventricular hypertrophy with repolarization abnormality Prolonged QT Abnormal ECG Compared to ECG 01/26/2022 00:10:58 Atrial premature complex(es) now present Prolonged QT interval now present Sinus tachycardia no longer present Atrial abnormality no longer present Electronically Signed On 01-04-23 15:34:29 CDT by Jesse Jaime
[2023-01-04] MEDS: DOXAZOSIN 2 MG TAB PO SCH ×2 (15:58→21:18)
[2023-01-04] MEDS ORDERED: ALPRAZOLAM 0.5 MG TABLET PO PRN (17:31)
[2023-01-04] MEDS: NACHLORIDE 0.45% 1,000 ML IV SCH (17:50)
[2023-01-04] MEDS: CLONIDINE HCL 0.3 MG TAB PO SCH (17:50)
[2023-01-04] MEDS: CALCITROL 0.25 MCG CAP PO SCH (17:50)
[2023-01-04] MEDS ORDERED: HOME MED 1 EA UNK (Metoprolol Tartrate [Metoprolol Tartrate] 100 MG Tablet) PO SCH (21:00)
[2023-01-04] MEDS: HYDROXYCHLOROQUINE 200MG TAB PO SCH (21:18)
[2023-01-04] MEDS: GABAPENTIN 100 MG CAP PO SCH (21:18)
[2023-01-05] MEDS: HYDROCODONE/APAP 5/325 MG TAB PO PRN ×3 (01:27→15:41)
[2023-01-05] MEDS: NACHLORIDE 0.45% 1,000 ML IV SCH (04:00)
[2023-01-05 04:33] LABS: Hematocrit 28.2 % (36.0-45.0); Lymphocytes % 7.1 % (15.3-44.8); MCV 83.6 fL (80-100); MPV 8.2 fL (7.6-11.3); RBC Red Blood Cell Count 3.37 M/uL (3.86-4.86)
[2023-01-05 04:59] LABS: Potassium 2.8 mEq/L (3.5-5.1)
[2023-01-05] MEDS ORDERED: KCL 20 MEQ/100 mL IVPB 20 MEQ/100 ML BAG IV SCH ×2 (06:00→10:00)
[2023-01-05] MEDS ORDERED: VANCOMYCIN 1 GM in NA CHLORIDE 0.9% 250 ML IVPB SCH ×2 (06:00→09:00)
[2023-01-05] MEDS: INSULIN -REGULAR HUMAN 50 UNIT/0.5 ML ML SQ SCH ×4 (07:30→21:00)
[2023-01-05] MEDS: HEPARIN 5000 UNIT/ML 1 ML VIAL SQ SCH ×2 (08:33→21:23)
[2023-01-05] MEDS: CEFEPIME 1 GM in NA CHLORIDE 0.9% 100 ML IV SCH (08:33)
[2023-01-05] MEDS: SODIUM BICARB 325 MG TAB PO SCH ×2 (08:33→16:53)
[2023-01-05] MEDS: HYDROXYCHLOROQUINE 200MG TAB PO SCH ×2 (08:33→21:21)
[2023-01-05] MEDS: GABAPENTIN 100 MG CAP PO SCH ×2 (08:33→21:21)
[2023-01-05] MEDS: MAGNESIUM OXIDE 400 MG TAB PO SCH (08:35)
[2023-01-05] MEDS: DOXAZOSIN 2 MG TAB PO SCH ×2 (08:36→21:21)
[2023-01-05] MEDS: CLONIDINE HCL 0.3 MG TAB PO SCH ×3 (08:36→21:21)
[2023-01-05] MEDS: ASPIRIN EC 81 MG TAB PO SCH (08:36)
[2023-01-05] MEDS ORDERED: FUROSEMIDE 20 MG TABLET PO SCH (09:00)
[2023-01-05] MEDS ORDERED: ESCITALOPRAM 20 MG TAB PO SCH (09:00)
[2023-01-05] MEDS ORDERED: VANCOMYCIN 1.25 GM in NA CHLORIDE 0.9% 250 ML IVPB SCH (09:00)
[2023-01-05] MEDS ORDERED: AMLODIPINE 5 MG TAB PO SCH (09:00)
[2023-01-05] MEDS ORDERED: POTASSIUM 25 MEQ EFFERV TAB PO ONE ×2 (09:19→09:48)
--- NOTE | 2023-01-05 10:28 | ECHO ---
HEIGHT: 5 ft 2 in WEIGHT: 197 lb 0 oz DATE OF STUDY: 01/04/[address]: Abdoul Novak NP 2-DIMENSIONAL: YES M.MODE: YES DOPPLER: YES COLOR FLOW: YES TDS: NO PORTABLE: YES DEFINITY: NO BUBBLE STUDY: NO DIAGNOSIS: ELEVATED TROPONIN CARDIAC HISTORY: CATHERIZATION: NO SURGERY: NO PROSTHETIC VALVE: NO PACEMAKER: NO MEASUREMENTS (cm) DIASTOLIC (NORMALS) SYSTOLIC (NORMALS) IVSd 1.3 (0.6-1.2) LA Diam 3.6 (1.9-4.0) LVEF 64% LVIDd 4.5 (3.5-5.7) LVIDs 2.9 (2.0-3.5) %FS 35% LVPWd 1.6 (0.6-1.2) Ao Diam 2.8 (2.0-3.7) 2 DIMENSIONAL ASSESSMENT: RIGHT ATRIUM: NORMAL LEFT ATRIUM: NORMAL RIGHT VENTRICLE: NORMAL LEFT VENTRICLE: LVH TRICUSPID VALVE: NORMAL MITRAL VALVE: NORMAL PULMONIC VALVE: NORMAL AORTIC VALVE: NORMAL PERICARDIAL EFFUSION: NONE AORTIC ROOT: NORMAL LEFT VENTRICULAR WALL MOTION: NORMAL DOPPLER/COLOR FLOW: NORMAL COMMENTS: 1. CONCENTRIC LEFT VENTRICULAR HYPERTROPHY. 2. NO WALL MOTION ABNORMALITY. 3. NO EFFUSION. TECHNOLOGIST: Leela SEXTON
[2023-01-05] MEDS: DOXYCYCLINE 100 MG CAP PO SCH ×2 (10:41→21:21)
--- NOTE | 2023-01-05 11:08 | P.PN ---
Nephrology note (S) Pt reports some on going nausea, no sig shortness of breath or abd pain reported. K repleted earlier. (O) Vitals reviewed in the EMR General: Oriented x3, Cooperative, Mild distress HEENT: Atraumatic, alopecia, NC Neck: Supple Respiratory: b/l air entry, reduced BS Lt base Cardiovascular: No edema, Regular rate/rhythm Gastrointestinal: Soft and benign, Non-distended Musculoskeletal: Shins are non tender, No contractures Integumentary: No rashes, No cyanosis Neurological: Normal speech, awake, alert, non focal Laboratory Data (last 24 hrs) Reviewed Imagings Data: EXAM DESCRIPTION: CT CHEST ABDOMEN PELVIS WITHOUT IV CONTRAST CLINICAL HISTORY: ABDOMINAL DISTENTION COMPARISON: 07/14/2022. TECHNIQUE: CT CHEST ABDOMEN PELVIS WITHOUT IV CONTRAST on 01/03/2023 10:17 PM CDT This exam was performed according to our departmental dose-optimization program, which includes automated exposure control, adjustment of the mA and/or kV according to patient size and/or use of iterative reconstruction technique. FINDINGS: Chest: The heart is enlarged. There is no pericardial effusion. Intrathoracic lymph nodes are not enlarged. There is no pleural effusion, pleural thickening or pneumothorax. Central airways are patent. There is a large consolidation replacing much of the left lower lobe. There is mild right basilar atelectasis near the diaphragms. Abdomen: Liver is fatty in attenuation. There is no biliary dilatation. Gallbladder is normal in appearance. The pancreas and spleen are normal in appearance. The adrenal glands are normal. Right kidney is minimally atrophic w ith mild to moderate left renal atrophy. Extensive [place] ventral hernia is present anteriorly. Abdominal aorta is normal in course and caliber without aneurysm. There is no free air. There is no retroperitoneal adenopathy. Pelvis: There are postoperative changes of the bowel with at least the sigmoid colon anastomosis. Urinary bladder is decompressed with a Crenshaw catheter. There is no free fluid. Appendix is not clearly seen. Hysterectomy was performed. Skeleton: There are no acute osseous findings. No suspicious bony lesions. IMPRESSION: Large left lower lobe pneumonia. Large [place] ventral hernia. No definite bowel obstruction. EXAM DESCRIPTION: US - Renal Ultrasound-Complete - 01/04/2023 5:07 am CLINICAL HISTORY: dae Flank pain COMPARISON: Renal Ultrasound-Complete dated 07/13/2016 FINDINGS: Both kidneys are small in size and highly echogenic. Small cysts are present bilaterally, benign appearance. The right kidney measures 7.6 x 3.9 x 3.1 cm. No hydronephrosis, focal mass or perinephric fluid. The left kidney measures 7.8 x 5.1 x 3.2 cm. No hydronephrosis, focal mass or perinephric fluid. The urinary bladder is incompletely distended without gross abnormality seen. IMPRESSION: Both kidneys are echogenic and small in size compatible with medical renal disease. Conclusions/Impression: Stage I DAE likely due to hypovolemia complicated by hypotension on admission Undelying progressive CKD IV with Proteinuria Hx Lupus Nephritis -Small kidneys b/l on imaging with some atrophy. -Cr level has trended down close to baseline level(s) seen earlier in the year. D/c IVF as pt is now hypertensive. -UA with dipstick proteinura and microscopic hematuria. -OP f/u with Rheum for her SLE/lupus nephritis, has been on Benlysta shots and MMF (latter is not currently ordered but will look to resume on discharge) Hypokalemia -Repleted with IV and PO KCL, f/u on Mg level, cont Mg supplementation. Diuretics on hold. Metabolic Acidosis -Cont PO Alkali HTN with CKD -Will add back pt's CCB medication, monitor closely. If renal function remains stable, can explore as OP if low RUFINO inhibitor can be (re)started/tolerated. Oniel Tucker MD, [facility]
[2023-01-05] MEDS ORDERED: HYDRALAZINE HCL 20 MG/ML VIAL IV ONE (11:47)
--- NOTE | 2023-01-05 11:55 | P.CNS ---
Date of Consult: 01/05/23 Reason for Consult: Hemoptysis Chief Complaint: Pneumonia, severe sepsis History of Present Illness: Patient is 52 years of age apparently fell hit her head and able to get up complaining of pain in her hip joint and it appeared in the hospital denies any pulmonary complaint apart from 1 episode of hemoptysis today denies any shortness of breath chest pain fever or chills complaining of urinary incontinence found to have a left lower lobe pneumonia Allergies morphine Allergy (Severe, Verified 09/07/17 09:12) Unknown Home Medications: Metoprolol Tartrate 100 mg PO BID 07/09/15 Hydroxychloroquine [Plaquenil*] 200 mg PO BID 09/07/17 Zolpidem Tartrate [Ambien] 10 mg PO BEDTIME PRN PRN 09/07/17 calcitrioL [Rocaltrol] 0.25 mcg PO Q48H 11/19/21 Alprazolam [Xanax] 1 tab PO BID PRN 01/04/23 Amlodipine [Norvasc*] 1 tab PO DAILY 01/04/23 Dextroamphetamine/Amphetamine [Adderall 20 mg Tablet] 1 tab PO DAILY 01/04/23 Doxazosin [Cardura*] 1 tab PO DAILY 01/04/23 Escitalopram [Lexapro*] 1 tab PO DAILY 01/04/23 Furosemide 1 tab PO DAILY 01/04/23 Gabapentin 2 tab PO BID 01/04/23 cloNIDine HCL [Catapres*] 0.3 mg PO TID 01/04/23 - Past Medical/Surgical History Diabetic: No -: Lupus, Rheumatology-Dr. Rothman -: HTN -: Seizure disorder -: History of Small bowel obstruction -: Ileostomy in place -: CAD -: History of avascular necrosis -: History of pyelonephritis -: Depression with history of suicidal ideation -: depression -: CKD IV/ Lupus Nephritis followed by Dr. Jean-Baptiste -: -: Hysterectomy -: Bowel resection -: Colostomy -: trach (reversed) -: Removal of colostomy Psychosocial/ Personal History: single, one child. - Family History Sister Notes: lupus Father Medical History: Kidney disease Notes: Mother Medical History: Hypertension, Cancer Notes: , uterine Brother Medical History: Hypertension, Diabetes - Social History Smoking Status: Unknown if ever smoked Alcohol use: No CD- Drugs: No Caffeine use: Yes Place of Residence: Home Review of Systems General: Weakness Respiratory: Hemoptysis Musculoskeletal: Leg Pain Physical Examination Temp Pulse Resp BP Pulse Ox 96.9 F 70 18 187/117 H 100 01/05/23 08:00 01/05/23 08:00 01/05/23 08:00 01/05/23 08:00 01/05/23 08:00 General: Alert, Moderate distress HEENT: Other (Scalp alopecia) Neck: Supple Respiratory: Clear to auscultation bilaterally, Crackles/rales Cardiovascular: No edema (Crackles at the left base), Regular rate/rhythm Gastrointestinal: Normal bowel sounds, Soft and benign Musculoskeletal: Other (Patient has significant discomfort on moving her left leg) - Problems (1) Pneumonia Current Visit: Yes Status: Acute Plan: Patient is 52 years of age apparently admitted following a fall found to have a left lower lobe pneumonia had 1 episode of hemoptysis denies any other pulmonary complaints patient's blood pressure is significantly elevated white count is declining also has chronic renal failure that is improving severe hypertension 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 fluoroquinolone and doxycycline count is declining significantly ambulate Qualifiers: Laterality: left Lung location: lower lobe of lung
[2023-01-05] MEDS: AMLODIPINE 5 MG TAB PO SCH ×2 (12:16→21:21)
[2023-01-05] MEDS: ONDANSETRON 4 MG/2 ML VIAL IV PRN (12:16)
--- NOTE | 2023-01-05 12:55 | CON ---
Date of Consultation: 01/04/2023 Reason For Consultation: Multiple problems include pneumonia, sepsis, lupus, acute kidney injury, el evated troponin. History Of Present Illness: Ms. Delgado is 52. No cardiac history. Has end-stage renal disease, di abetic, hypertension, dyslipidemia. She has had a history of lupus and small bowel obstruction. She came in with sepsis and troponin is elevated because of demand ischemia. No cardiac complaint. I w as consulted. Allergies: TO MORPHINE AND SHELLFISH. Medications: Listed by the admitting physician. Review of Systems: Positive for drug use. Social History: Positive for drug use. Family History: Noncontributory. Physical Examination: Vital Signs: Stable. Afebrile. Sinus rhythm. HEENT: Negative. Neck: Supple with no bruit. Chest: Clear. Cardiac: Revealed S4 gallops. Abdomen: Benign. Extremities: Revealed no clubbing, cyanosis, or edema. Diagnostic Data: Showed positive benzodiazepine, positive cocaine, positive amphetamine. Creatinine of 3.2, hemoglobin of 9. Troponin was 197. Potassium of 3.2. BNP was 51,000. Impression And Plan: Elevated troponin secondary to demand ischemia, renal failure, sepsis, and lupu s. Patient has an echocardiogram pending. We will see what that shows. Meanwhile, I think we need to continue her present regimen. Nephrology is following. This is definitely not an acute coronary syn drome. POLO/PRITI Voice ID: [id number] Report ID: [id number]
--- NOTE | 2023-01-05 19:34 | P.PN ---
Subjective Date of Service: 01/05/23 Chief Complaint: Pneumonia, severe sepsis No acute events overnight. She reports that her symptoms have improved significantly. She reports some mild shortness of breath with exertion. She has not had any recurrent episodes of hemoptysis. She denies any chest pain or palpitations. Her back pain has improved significantly. Review of Systems 10-point ROS is otherwise unremarkable Respiratory: Cough, SOB with Excertion Physical Examination - Vital Signs Temperature: 97.4 F Blood Pressure: 166/97 Pulse: 72 Respirations: 20 Pulse Ox (%): 96 - Physical Exam General: Alert, In no apparent distress, Oriented x3 HEENT: Atraumatic, Sclerae nonicteric Neck: JVD not distended Respiratory: Diminished, Rhonchi/gurgles (scattered) Cardiovascular: Regular rate/rhythm, Normal S1 S2, No gallops, No rubs, No murmurs, Edema (trace BLE) Gastrointestinal: Normal bowel sounds, Soft and benign, Non-distended, No t enderness, No rebound, No guarding Musculoskeletal: No clubbing Integumentary: No rashes, Other (alopecia with vitiligo on scalp) Neurological: Normal speech, Normal affect Assessment And Plan - Plan # Severe Sepsis likely secondary to Left-Sided Community-Acquired Pneumonia # Immunosupressed State She met sepsis criteria based on RR > 20 breaths/min and WBC > 12,000, and the suspected source is pneumonia. Severe sepsis is suspected due to concern for tis winsome hypoperfusion/organ dysfunction based on creatinine >2.0 mg/dL (without ESRD). - Radiology: - Chest x-ray = "left mid lung airspace opacity, concerning for developing pneumonia. Stable cardiomegaly." - CT chest/abdomen/pelvis = "large left lower lobe pneumonia. Large widemouth ventral hernia. No definite bowel obstruction." - Pulmonology consulted and spoke with Dr. Hu - recommendations appreciated - Sepsis order set was initiated - Initial Lactate was 2.0 - Blood cultures drawn - Broad spectrum antibiotics started: Vancomycin + Cefepime -> Doxycycline + Cefepime - In regards to fluids: - 30 mL/kg of IV fluids was not administered given SBP > 90, MAP > 65, lactic acid < 4 # Hypertensive Urgency - Blood pressure reached as high as 198/109 - Continue home amlodipine, clonidine, doxazosin - Hold home metoprolol given cocaine use - PRN hydralazine for SBP > 160 mmHg # Suspected Type II Non-ST Segment Elevation Myocardial Infarction (Demand Ischemia) due to above # Coronary Artery Disease - Evaluation thus far: - EKG: without STEMI criteria, trend - Serial troponin: 133.5 -> 197.6 -> 231.3 -> 211.6 - Transthoracic echocardiogram = "1. concentric left ventricular hypertrophy. 2. no wall motion abnormality. 3. no effusion." - Management plan: - Consult Cardiology and spoke with Dr. Jaime - recommendations appreciated - He feels that troponin leak is due to demand ischemia - Continue home aspirin - Started atorvastatin - Beta-paolo held due to cocaine use - SREEKANTH-inhibitor/ARB held due to poor renal function # KDIGO Stage I Acute Kidney Injury on Chronic Kidney Disease Stage IV secondary to Lupus Nephritis - improving # Systemic Lupus Erythematosus # Microscopic Hematuria - Nephrology consulted and spoke with Dr. Tucker - recommendations appreciated - Creatinine = 3.70 -> 3.20 -> 2.32 - Urinalysis = 1+ blood, 75 leukocyte esterase, 1120 RBC, 2+ protein - Renal ultrasound = "both kidneys are echogenic and small in size compatible with medical renal disease." - Continue home calcitriol, sodium bicarbonate, hydroxychloroquine - Hold home mycophenolate per Neph - Monitor creatinine and urine output - Renally dose medications # Hypokalemia # Hypomagnesemia - Appreciate Nephrology recommendations with electrolyte replacement given poor renal function # Substance Use Disorder - Cocaine - UDS positive for amphetamines, cocaine, benzodiazepines (but she has prescriptions for Adderall and Xanax) - Substance cessation counseling # Reported Fall Possibly multifactorial due to multiple issues outlined above - CT head/cervical spine = "no acute traumatic intracranial or cervical spine findings." - Consulted PT # Depression # Prolonged QTc - Continue home gabapentin - Hold home escitalopram given prolonged QTc - repeat EKG requested # Seizure Disorder - Not on medication at home # Large Ventral Hernia - Follow-up with PCP as an outpatient Juventino Villagran M.D.
[2023-01-05] MEDS ORDERED: CEFEPIME 1 GM in NA CHLORIDE 0.9% 100 ML IV SCH (21:00)
[2023-01-05] MEDS: ATORVASTATIN 20 MG TAB PO SCH (21:21)
[2023-01-06 03:58] LABS: Absolute Lymphocytes (CBC) 1.6 K/uL (0.7-4.9); Hematocrit 29.9 % (36.0-45.0); Lymphocytes % 25.4 % (15.3-44.8); MCV 83.8 fL (80-100); RBC Red Blood Cell Count 3.56 M/uL (3.86-4.86)
[2023-01-06] MEDS ORDERED: HYDROMORPHONE HCL 0.5 MG/0.5 ML INJ IV ONE ×2 (03:58→22:56)
[2023-01-06 04:10] LABS: Potassium 3.8 mEq/L (3.5-5.1)
[2023-01-06] MEDS: INSULIN -REGULAR HUMAN 50 UNIT/0.5 ML ML SQ SCH ×4 (07:30→21:00)
[2023-01-06] MEDS ORDERED: levoFLOXacin 500 MG TAB PO ONE (08:23)
--- NOTE | 2023-01-06 08:24 | P.PN ---
Subjective Date of Service: 01/06/23 Chief Complaint: Pneumonia, Subjective: Improving (Patient is improving doing better occasional hemoptysis) Review of Systems General: Weakness Respiratory: Shortness of Breath, Hemoptysis Physical Examination - Vital Signs Temperature: 97.0 F Blood Pressure: 194/112 Pulse: 85 Respirations: 20 Pulse Ox (%): 93 - Physical Exam General: Alert, In no apparent distress, Oriented x3 Respiratory: Clear to auscultation bilaterally Cardiovascular: No edema, Regular rate/rhythm, Normal S1 S2 Assessment And Plan - Current Problems (Diagnosis) (1) Pneumonia Current Visit: Yes Status: Acute Plan: Patient admitted with left lower lobe pneumonia clinically improving renal function improving White count is down to normal changed to p.o. levofloxacin plan for discharge ambulate renal function is improving blood pressure continues to remain elevated seen by nephrology Qualifiers: Laterality: left Lung location: lower lobe of lung Physician Review: Patient Assessed, Agree with Above Assessment and Plan
[2023-01-06] MEDS: MAGNESIUM OXIDE 400 MG TAB PO SCH (08:52)
[2023-01-06] MEDS: AMLODIPINE 5 MG TAB PO SCH (08:52)
[2023-01-06] MEDS: CLONIDINE HCL 0.3 MG TAB PO SCH ×3 (08:52→20:15)
[2023-01-06] MEDS: HYDROXYCHLOROQUINE 200MG TAB PO SCH ×2 (08:52→20:16)
[2023-01-06] MEDS: GABAPENTIN 100 MG CAP PO SCH ×2 (08:52→20:16)
[2023-01-06] MEDS: ASPIRIN EC 81 MG TAB PO SCH (08:52)
[2023-01-06] MEDS: DOXAZOSIN 2 MG TAB PO SCH (08:53)
[2023-01-06] MEDS: SODIUM BICARB 325 MG TAB PO SCH ×2 (08:53→18:11)
[2023-01-06] MEDS: HEPARIN 5000 UNIT/ML 1 ML VIAL SQ SCH (08:59)
[2023-01-06] MEDS: HYDRALAZINE HCL 20 MG/ML VIAL IV PRN ×2 (09:56→21:17)
[2023-01-06 10:42] LABS: Bilirubin Direct 0.1 mg/dL (0-0.2); Bilirubin Total 0.3 mg/dL (0.2-1.0)
[2023-01-06] MEDS: HYDROCODONE/APAP 5/325 MG TAB PO PRN ×3 (10:43→22:01)
[2023-01-06] MEDS: DOXAZOSIN 4 MG TAB PO SCH ×2 (11:15→20:15)
[2023-01-06] MEDS ORDERED: NIFEDIPINE XL 60 MG TABLET PO SCH (11:15)
[2023-01-06] MEDS ORDERED: METOPROLOL TAR 50 MG TAB PO SCH (11:20)
[2023-01-06] MEDS ORDERED: dilTIAZem HCL 25 MG/5 ML VIAL IV ONE ×2 (11:32→12:00)
[2023-01-06] MEDS ORDERED: DILTIAZEM INJ 125 MG/25 ML 125 MG in NA CHLORIDE 0.9% 100 ML IV SCH ×2 (11:45→11:55)
[2023-01-06] MEDS ORDERED: DOXAZOSIN 2 MG TAB ONE ×2 (11:52→20:17)
--- NOTE | 2023-01-06 12:41 | P.PN ---
Subjective Date of Service: 01/06/23 Chief Complaint: Pneumonia, No acute events overnight. She appeared to be doing well this morning and was requesting to be discharged. At 11:19 AM, a rapid response was called. I arrived at bedside shortly after and she demonstrated jerking movements. She was awake and speaking during this episode. She reported chest discomfort. Her EKG revealed atrial fibrillation with rapid ventricular response and her blood pressure was 219/129. She was given diltiazem and started on a diltiazem drip. She has been transferred to the ICU for continued monitoring and treatment. Review of Systems 10-point ROS is otherwise unremarkable Cardiovascular: Chest Pain Physical Examination - Vital Signs Temperature: 97.0 F Blood Pressure: 177/112 Pulse: 113 Respirations: 21 Pulse Ox (%): 99 Assessment And Plan - Plan - Physical Exam General: Alert, In no apparent distress, Oriented x3 HEENT: Atraumatic, Sclerae nonicteric Neck: JVD not distended Respiratory: Diminished, Faint scattered rhonchi/gurgles Cardiovascular: Irregularly rate/rhythm, No murmurs, Edema (trace BLE) Gastrointestinal: Normal bowel sounds, Soft, Non-distended, No tenderness Musculoskeletal: No clubbing Integumentary: No rashes, Other (alopecia with vitiligo on scalp) Neurological: Normal speech, Normal affect # Paroxysmal Atrial Fibrillation with Rapid Ventricular Response Her [id number] = 3 (HTN=1,CAD=1, Sex=1), which warrants anticoagulation. - Evaluation thus far: - Serial troponin: 133.5 -> 197.6 -> 231.3 -> 72.6 - EKG = atrial fibrillation with RVR - Chest x-ray = "left mid lung airspace opacity, concerning for developing pneumonia. Stable cardiomegaly." - Potassium = 3.8, Magnesium = 1.7 - Target K> 4, Mg >2 - TSH = pending - NT-Pro BNP = [id number] - Transthoracic echocardiogram = "1. concentric left ventricular hypertrophy. 2. no wall motion abnormality. 3. no effusion." - Management plan: - Transfer to ICU - Cardiology consulted and spoke with Dr. Jaime - recommendations appreciated - Started on diltiazem drip - avoiding beta-blockers at this time given cocaine use - If CT head negative for intracranial bleed, start on therapuetic dose enoxaparin # Hypertensive Emergency with possible Seizure # Seizure Disorder - Blood pressure reached as high as 219/129 - Ordered CT head - Will also obtain MRI and EEG - need to exclude PRES syndrome - Neurology consulted - recommendations appreciated - Discontinued amlodipine and started diltiazem drip - Continue home clonidine, doxazosin - Hold home metoprolol given cocaine use - PRN hydralazine for SBP > 160 mmHg # Severe Sepsis likely secondary to Left-Sided Community-Acquired Pneumonia - improving # Immunosupressed State She met sepsis criteria based on RR > 20 breaths/min and WBC > 12,000, and the suspected source is pneumonia. Severe sepsis is suspected due to concern for tissue hypoperfusion/organ dysfunction based on creatinine >2.0 mg/dL (without ESRD). - Radiology: - Chest x-ray = "left mid lung airspace opacity, concerning for developing pneumonia. Stable cardiomegaly." - CT chest/abdomen/pelvis = "large left lower lobe pneumonia. Large widemouth ventral hernia. No definite bowel obstruction." - Pulmonology consulted and spoke with Dr. Hu - recommendations appreciated - Sepsis order set was initiated - Initial Lactate was 2.0 - Blood cultures drawn - Broad spectrum antibiotics started: Vancomycin + Cefepime -> Doxycycline + Cefepime - In regards to fluids: - 30 mL/kg of IV fluids was not administered given SBP > 90, MAP > 65, lactic acid < 4 # Suspected Type II Non-ST Segment Elevation Myocardial Infarction (Demand Ischemia) due to above # Coronary Artery Disease - Evaluation thus far: - EKG: without STEMI criteria, trend - Serial troponin: 133.5 -> 197.6 -> 231.3 -> 211.6 -> 72.6 - Transthoracic echocardiogram = "1. concentric left ventricular hypertrophy. 2. no wall motion abnormality. 3. no effusion." - Management plan: - Consult Cardiology and spoke with Dr. Jaime - recommendations appreciated - He feels that troponin leak is due to demand ischemia - Continue home aspirin - Started atorvastatin - Beta-paolo held due to cocaine use - SREEKANTH-inhibitor/ARB held due to poor renal function # KDIGO Stage I Acute Kidney Injury on Chronic Kidney Disease Stage IV secondary to Lupus Nephritis - improving # Systemic Lupus Erythematosus # Microscopic Hematuria - Nephrology consulted and spoke with Dr. Adkins - recommendations appreciated - Creatinine = 3.70 -> 3.20 -> 2.32 - Urinalysis = 1+ blood, 75 leukocyte esterase, 1120 RBC, 2+ protein - Renal ultrasound = "both kidneys are echogenic and small in size compatible with medical renal disease." - Continue home calcitriol, sodium bicarbonate, hydroxychloroquine - Hold home mycophenolate per Neph - Monitor creatinine and urine output - Renally dose medications # Hypokalemia # Hypomagnesemia - Appreciate Nephrology recommendations with electrolyte replacement given poor renal function # Substance Use Disorder - Cocaine - UDS positive for amphetamines, cocaine, benzodiazepines (but she has prescriptions for Adderall and Xanax) - Substance cessation counseling # Reported Fall Possibly multifactorial due to multiple issues outlined above - CT head/cervical spine = "no acute traumatic intracranial or cervical spine findings." - Consulted PT # Depression # Prolonged QTc - Continue home gabapentin - Hold home escitalopram given prolonged QTc - repeat EKG requested # Large Ventral Hernia - Follow-up with PCP as an outpatient Juventino Villagran M.D.
[2023-01-06 13:13] LABS: Magnesium 1.8 mg/dL (1.6-2.4); Thyroid Stimulating Hormone 1.63 uIU/mL (0.358-3.740)
--- NOTE | 2023-01-06 13:18 | RAD REPORT ---
EXAM DESCRIPTION: CT - Head Brain Wo Cont - 01/06/2023 1:12 pm CLINICAL HISTORY: possible seizure COMPARISON: Head Brain Wo Cont dated 01/26/2022; Head Brain Wo Cont dated 04/24/2021Head Brain Wo Cont dated 01/26/2022; Head Brain Wo Cont dated 04/24/2021 TECHNIQUE: All CT scans are performed using dose optimization technique as appropriate and may inclu de automated exposure control or mA/KV adjustment according to patient size. FINDINGS: No intracranial hemorrhage, hydrocephalus or extra-axial fluid collection.No areas of brai n edema or evidence of midline shift. Mild chronic small vessel ischemic changes. The paranasal sinuses and mastoids are clear. The calvarium is intact. IMPRESSION: No acute intracranial abnormality.
[2023-01-06] MEDS ORDERED: LORazepam 2 MG/ML VIAL ONE ×2 (13:34→14:02)
[2023-01-06] MEDS ORDERED: AMIODARONE HCL 150 MG in D5W 100 ML IV STA (14:27)
[2023-01-06] MEDS: AMIODARONE HCL 900 MG in Dextrose 5%-Water 482 ML IV SCH (14:45)
[2023-01-06] MEDS: levETIRAcetam 500 MG in NA CHLORIDE 0.9% 100 ML IV SCH ×2 (15:03→21:17)
[2023-01-06] MEDS ORDERED: FENTANYL CITR 100 MCG/2 ML IV ONE (17:44)
[2023-01-06] MEDS: CALCITROL 0.25 MCG CAP PO SCH (18:11)
[2023-01-06] MEDS: HYDROMORPHONE HCL 0.5 MG/0.5 ML INJ IV PRN (19:49)
[2023-01-06] MEDS: ATORVASTATIN 20 MG TAB PO SCH (20:16)
--- NOTE | 2023-01-06 22:15 | P.PN ---
Date of Service: 01/06/23 Vital Signs Temp Pulse Resp BP Pulse Ox 97 F 109 H 20 172/118 H 98 01/06/23 20:00 01/06/23 21:00 01/06/23 21:00 01/06/23 21:00 01/06/23 21:00 Medications Hydrocodone Bitart/Acetaminophen (Hydrocodone/Apap 5/325 Mg Tab) 1 tab PO Q6H PRN PRN Reason: Pain scale 5-7 (Moderate) Last Admin: 01/06/23 22:01 Dose: 1 tab Alprazolam (Alprazolam 0.5 Mg Tablet) 0.5 mg PO BID PRN PRN Reason: ANXIETY Aspirin (Aspirin Ec 81 Mg Tab) 81 mg PO DAILY [facility] Last Admin: 01/06/23 08:52 Dose: 81 mg Atorvastatin Calcium (Atorvastatin 20 Mg Tab) 20 mg PO BEDTIME [facility] Last Admin: 01/06/23 20:16 Dose: 20 mg Calcitriol (Calcitrol 0.25 Mcg Cap) 0.25 mcg PO Q48H [facility] Last Admin: 01/06/23 18:11 Dose: 0.25 mcg Clonidine HCl (Clonidine Hcl 0.3 Mg Tab) 0.3 mg PO TID [facility] Last Admin: 01/06/23 20:15 Dose: 0.3 mg Doxazosin Mesylate (Doxazosin 4 Mg Tab) 4 mg PO BID [facility] Last Admin: 01/06/23 20:15 Dose: 4 mg Enoxaparin Sodium (Enoxaparin 100 Mg/Ml Syr) 90 mg 1 mg/kg (90 mg) SQ BEDTIME ELOISE Gabapentin (Gabapentin 100 Mg Cap) 100 mg PO BID [facility] Last Admin: 01/06/23 20:16 Dose: 100 mg Hydralazine HCl (Hydralazine Hcl 20 Mg/Ml Vial) 10 mg IV Q6HP PRN PRN Reason: Titrate to SBP (MUST DEFINE) Last Admin: 01/06/23 21:17 Dose: 10 mg Hydromorphone HCl (Hydromorphone Hcl 0.5 Mg/0.5 Ml Inj) 0.5 mg IV Q4H PRN PRN Reason: Pain scale 8-10 (Severe) Last Admin: 01/06/23 19:49 Dose: 0.5 mg Hydroxychloroquine Sulfate (Hydroxychloroquine 200mg Tab) 200 mg PO BID [facility] Last Admin: 01/06/23 20:16 Dose: 200 mg Levetiracetam 500 mg/ Sodium (Chloride) 105 mls @ 420 mls/hr IV BID [facility] Last Admin: 01/06/23 21:17 Dose: 105 mls Amiodarone HCl 900 mg/ (Dextrose) 500 mls @ 33.333 mls/hr IV CONT [facility]; Protocol Last Admin: 01/06/23 14:45 Dose: 500 mls Insulin Human Regular (Insulin -Regular Human 50 Unit/0.5 Ml Ml) 0 unit SQ ACHS [facility]; Protocol Last Admin: 01/06/23 21:00 Dose: Not Given Magnesium Oxide (Magnesium Oxide 400 Mg Tab) 400 mg PO DAILY [facility] Last Admin: 01/06/23 08:52 Dose: 400 mg Ondansetron HCl (Ondansetron 4 Mg/2 Ml Vial) 4 mg IV Q6HP PRN PRN Reason: NAUSEA / VOMITING Last Admin: 01/05/23 12:16 Dose: 4 mg Sodium Bicarbonate (Sodium Bicarb 325 Mg Tab) 650 mg PO BIDPC [facility] Last Admin: 01/06/23 18:11 Dose: 650 mg Sodium Chloride (Flush Normal Saline 10 Ml) 10 ml IV BID [facility] Last Admin: 01/06/23 20:17 Dose: 10 ml Microbiology Results 01/03/23 22:48 Blood - Blood Aerobic Blood Culture - Preliminary No growth in 24 hours. 01/03/23 22:48 Blood - Blood Anaerobic Blood Culture - Preliminary No growth in 24 hours. 01/03/23 22:48 Blood - Blood Aerobic Blood Culture - Preliminary No growth in 24 hours. 01/03/23 22:48 Blood - Blood Anaerobic Blood Culture - Preliminary No growth in 24 hours. Assessment/ Plan: Nephrology No dyspnea Reports chest pain and malaise No acute events overnight Vitals, medications, blood work and imaging reviewed in the chart. General: Oriented x3, Cooperative, Mild distress HEENT: Atraumatic Neck: Supple Respiratory: Clear to auscultation bilaterally Cardiovascular: No edema, Regular rate/rhythm Gastrointestinal: Soft and benign, Non-distended Musculoskeletal: No clubbing, No contractures Integumentary: No rashes, No cyanosis Neurological: Normal speech Laboratory Data (last 24 hrs) 01/03/23 20:01: PT 15.1 H, INR 1.37, APTT 26.6 01/03/23 20:01: WBC 20.90 H, Hgb 10.7 L, Hct 33.6 L, Plt Count 179 01/03/23 20:01: Sodium 132 L, Potassium 2.8 L, BUN 34 H, Creatinine 3.70 H, Glucose 103, Magnesium 1.3 L, Total Bilirubin 1.4 H, AST 19, ALT 13, Alkaline Phosphatase 108 Imagings Data: [facility] CLINICAL HISTORY: COUGH COMPARISON: Chest Single View dated 01/26/2022; Abdomen 1 View (KUB) dated 11/26/2021; Chest Single View dated 11/19/2021; Chest Pa And Lat (2 Views) dated 10/26/2021 TECHNIQUE: Portable AP view of the chest. FINDINGS: Hazy airspace opacification in the left mid lung. No pneumothorax or effusion. Stable cardiomegaly. Mediastinal contours are unchanged. IMPRESSION: Left mid lung airspace opacity, concerning for developing pneumonia. Stable cardiomegaly EXAM DESCRIPTION: CT CHEST ABDOMEN PELVIS WITHOUT IV CONTRAST CLINICAL HISTORY: ABDOMINAL DISTENTION COMPARISON: 07/14/2022. TECHNIQUE: CT CHEST ABDOMEN PELVIS WITHOUT IV CONTRAST on 01/03/2023 10:17 PM CDT This exam was performed according to our departmental dose-optimization program, which includes automated exposure control, adjustment of the mA and/or kV according to patient size and/or use of iterative reconstruction technique. FINDINGS: Chest: The heart is enlarged. There is no pericardial effusion. Intrathoracic lymph nodes are not enlarged. There is no pleural effusion, pleural thickening or pneumothorax. Central airways are patent. There is a large consolidation replacing much of the left lower lobe. There is mild right basilar atelectasis near the diaphragms. Abdomen: Liver is fatty in attenuation. There is no biliary dilatation. Gallbladder is normal in appearance. The pancreas and spleen are normal in appearance. The adrenal glands are normal. Right kidney is minimally atrophic with mild to moderate left renal atrophy. Extensive widemouth ventral hernia is present anteriorly. Abdominal aorta is normal in course and caliber without aneurysm. There is no free air. There is no retroperitoneal adenopathy. Pelvis: There are postoperative changes of the bowel with at least the sigmoid colon anastomosis. Urinary bladder is decompressed with a Crenshaw catheter. There is no free fluid. Appendix is not clearly seen. Hysterectomy was performed. Skeleton: There are no acute osseous findings. No suspicious bony lesions. IMPRESSION: Large left lower lobe pneumonia. Large widemouth ventral hernia. No definite bowel obstruction. EXAM DESCRIPTION: US - Renal Ultrasound-Complete - 01/04/2023 5:07 am CLINICAL HISTORY: dae Flank pain COMPARISON: Renal Ultrasound-Complete dated 07/13/2016 FINDINGS: Both kidneys are small in size and highly echogenic. Small cysts are present bilaterally, benign appearance. The right kidney measures 7.6 x 3.9 x 3.1 cm. No hydronephrosis, focal mass or perinephric fluid. The left kidney measures 7.8 x 5.1 x 3.2 cm. No hydronephrosis, focal mass or perinephric fluid. The urinary bladder is incompletely distended without gross abnormality seen. IMPRESSION: Both kidneys are echogenic and small in size compatible with medical renal disease. Conclusions/Impression: Stage I DAE likely due to hypovolemia complicated by hypotension on admission CKD IV with Proteinuria Hx Lupus Nephritis -No NSAIDs Hypokalemia -Replete potassium prn Metabolic Acidosis -Continue oral bicarb Hypomagnesemia -Continue MagOx Hypertensive emergency HTN with CKD -Move to the ICU -Antihypertensives as ordered DM II with CKD -RISS Hypoalbuminemia -Consider protein supplementation LLL PNA -Continue Abx Cocaine abuse -Recommend cessation Case reviewed with Dr. Villagran
[2023-01-06] MEDS: ONDANSETRON 4 MG/2 ML VIAL IV PRN (23:00)
[2023-01-07] MEDS: HYDRALAZINE HCL 20 MG/ML VIAL IV PRN ×2 (03:26→10:51)
[2023-01-07] MEDS: HYDROMORPHONE HCL 0.5 MG/0.5 ML INJ IV PRN ×6 (03:26→22:45)
[2023-01-07] MEDS ORDERED: HYDRALAZINE HCL 20 MG/ML VIAL IV ONE (04:59)
[2023-01-07] MEDS: ONDANSETRON 4 MG/2 ML VIAL IV PRN ×2 (05:06→12:37)
[2023-01-07] MEDS: HYDROCODONE/APAP 5/325 MG TAB PO PRN ×3 (05:08→22:01)
[2023-01-07] MEDS: ALPRAZOLAM 0.5 MG TABLET PO SCH ×2 (05:09→19:16)
[2023-01-07 05:47] LABS: Absolute Lymphocytes (CBC) 1.8 K/uL (0.7-4.9); Hematocrit 30.4 % (36.0-45.0); Lymphocytes % 23.3 % (15.3-44.8); MCV 83.9 fL (80-100); RBC Red Blood Cell Count 3.63 M/uL (3.86-4.86)
[2023-01-07 06:04] LABS: Magnesium 1.7 mg/dL (1.6-2.4); Potassium 3.3 mEq/L (3.5-5.1)
[2023-01-07] MEDS: AMLODIPINE 10 MG TAB PO SCH ×2 (06:10→07:49)
[2023-01-07] MEDS: INSULIN -REGULAR HUMAN 50 UNIT/0.5 ML ML SQ SCH ×4 (07:30→19:29)
[2023-01-07] MEDS ORDERED: DOXAZOSIN 2 MG TAB ONE ×2 (07:48→19:19)
[2023-01-07] MEDS: CLONIDINE HCL 0.3 MG TAB PO SCH ×3 (07:49→19:28)
[2023-01-07] MEDS: levETIRAcetam 500 MG in NA CHLORIDE 0.9% 100 ML IV SCH ×3 (07:49→20:52)
[2023-01-07] MEDS: GABAPENTIN 100 MG CAP PO SCH ×2 (07:50→19:16)
[2023-01-07] MEDS: ASPIRIN EC 81 MG TAB PO SCH (07:55)
[2023-01-07] MEDS: MAGNESIUM OXIDE 400 MG TAB PO SCH (07:56)
[2023-01-07] MEDS: HYDROXYCHLOROQUINE 200MG TAB PO SCH ×2 (07:56→19:17)
[2023-01-07] MEDS: SODIUM BICARB 325 MG TAB PO SCH (08:30)
[2023-01-07] MEDS: DOXAZOSIN 4 MG TAB PO SCH ×2 (08:46→19:16)
[2023-01-07] MEDS ORDERED: ENALAPRILAT 1.25 MG/ML VIAL IV ONE (10:53)
[2023-01-07] MEDS ORDERED: LORazepam 2 MG/ML VIAL IV ONE ×2 (11:01→14:34)
[2023-01-07] MEDS ORDERED: methocarbamoL 500 MG TAB PO ONE (11:15)
--- NOTE | 2023-01-07 12:00 | PN ---
Patient was admitted to Dr. Villagran. She has a history of anxiety, severe hypertension, cocaine use, d yslipidemia. Her blood pressure remains at 182/96. She is not in atrial fibrillation. Today, she i s in sinus tach. She was in atrial fibrillation yesterday. She was on IV amiodarone, which has work ed and we will continue that. Her potassium was 3.3, creatinine is 1.94. She is on Norvasc 5 mg, I will go up to 10 mg. She is on Hytrin, which is new, hydralazine clonidine, antibiotics. She contin ues to be on aspirin and Lipitor and Xanax, as well as, [place]. We should really consider further the rapy as far as her blood pressure is concerned. She may be a good candidate for SREEKANTH inhibitors, alth ough her kidney function is not appropriate, but we will see how she does with the present regimen. She is not a candidate for beta-blockers because of cocaine use. We will continue to follow as anna CLEANING Voice ID: [id number] Report ID: [id number]
[2023-01-07] MEDS: FUROSEMIDE 40 MG/4 ML VIAL IV SCH ×2 (12:48→23:58)
[2023-01-07] MEDS: AMIODARONE HCL 900 MG in Dextrose 5%-Water 482 ML IV SCH (16:33)
[2023-01-07] MEDS: NICARDIPINE HCL 25 MG in NA CHLORIDE 0.9% 240 ML IV SCH (16:38)
[2023-01-07] MEDS: ENALAPRIL 2.5 MG TAB PO SCH (16:58)
--- NOTE | 2023-01-07 17:02 | P.PN ---
Nephrology note (S) Pt moved to the ICU this AM for hypertensive urgency, Afib with RVR, other. Pt when seen in mild distress, citing pain at various sites, tachy in the 130s, SBP > 200. (O) Vitals reviewed in the EMR General: Chronically ill appearing, Mild distress HEENT: Atraumatic, alopecia, NC Neck: Supple Respiratory: b/l air entry, reduced BS Lt base Cardiovascular: No edema, Tachy, irregular Gastrointestinal: Soft and benign, Non-distended Musculoskeletal: Shins are non tender, No contractures Integumentary: No rashes, No cyanosis Neurological: Lethargic but awake, responds briefly but appropriately, non focal Laboratory Data (last 24 hrs) Reviewed Imagings Data: EXAM DESCRIPTION: CT CHEST ABDOMEN PELVIS WITHOUT IV CONTRAST CLINICAL HISTORY: ABDOMINAL DISTENTION COMPARISON: 07/14/2022. TECHNIQUE: CT CHEST ABDOMEN PELVIS WITHOUT IV CONTRAST on 01/03/2023 10:17 PM CDT This exam was performed according to our departmental dose-optimization program, which includes automated exposure control, adjustment of the mA and/or kV according to patient size and/or use of iterative reconstruction technique. FINDINGS: Chest: The heart is enlarged. There is no pericardial effusion. Intrathoracic lymph nodes are not enlarged. There is no pleural effusion, pleural thickening or pneumothorax. Central airways are patent. There is a large consolidation replacing much of the left lower lobe. There is mild right basilar atelectasis near the diaphragms. Abdomen: Liver is fatty in attenuation. There is no biliary dilatation. Gallbladder is normal in appearance. The pancreas and spleen are normal in appearance. The adrenal glands are normal. Right kidney is minimally atrophic with mild to moderate left renal atrophy. Extensive widemouth ventral hernia is present anteriorly. Abdominal aorta is normal in course and caliber without aneurysm. There is no free air. There is no retroperitoneal adenopathy. Pelvis: There are postoperative changes of the bowel with at least the sigmoid colon anastomosis. Urinary bladder is decompressed with a Crenshaw catheter. There is no free fluid. Appendix is not clearly seen. Hysterectomy was performed. Skeleton: There are no acute osseous findings. No suspicious bony lesions. IMPRESSION: Large left lower lobe pneumonia. Large widemouth ventral hernia. No definite bowel obstruction. EXAM DESCRIPTION: US - Renal Ultrasound-Complete - 01/04/2023 5:07 am CLINICAL HISTORY: dea Flank pain COMPARISON: Renal Ultrasound-Complete dated 07/13/2016 FINDINGS: Both kidneys are small in size and highly echogenic. Small cysts are present bilaterally, benign appearance. The right kidney measures 7.6 x 3.9 x 3.1 cm. No hydronephrosis, focal mass or perinephric fluid. The left kidney measures 7.8 x 5.1 x 3.2 cm. No hydronephrosis, focal mass or perinephric fluid. The urinary bladder is incompletely distended without gross abnormality seen. IMPRESSION: Both kidneys are echogenic and small in size compatible with medical renal disease. Conclusions/Impression: Stage I DAE likely due to hypovolemia complicated by hypotension on admission since resolved. 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 -Cr level had trended down to baseline level(s) seen earlier in the year or lower. Did d/c IVF vanita on as pt became hypertensive. -UA with dipstick proteinura and microscopic hematuria. -OP f/u with Rheum for her SLE/lupus nephritis, has been on Benlysta shots and MMF (latter is not currently ordered but will look to resume on discharge) -Will start ACEi since BP remains accelerated Hypokalemia -Monitor levels with resumption of loop diuretics Metabolic Acidosis -bicarb deficit better, hold PO alkali HTN with CKD, hypertensive urgency -BP has remained elevated today despite several medications given, sympathetic response from pain and anxiety driving in part. Will place on nicardipine gtt, will restart ACEi, will order IV lasix. Oniel Tucker MD, [facility]
[2023-01-07] MEDS: ATORVASTATIN 20 MG TAB PO SCH (19:17)
--- NOTE | 2023-01-07 19:28 | P.PN ---
Subjective Date of Service: 01/07/23 Chief Complaint: Pneumonia, No acute events overnight. This morning, she was seen alongside Dr. Tucker. She appeared to be in mild distress. She reported diffuse body pain throughout. She had systolic blood pressures in the 200s and was tachycardic in the [id number]. Heart rhythm appeared to be intermittently atrial fibrillation and sinus tachycardia. Ordered methocarbamol and shortened interval between hydromorphone doses. Review of Systems 10-point ROS is otherwise unremarkable General: Other (diffuse body aches) Physical Examination - Vital Signs Temperature: 98.2 F Blood Pressure: 163/88 Pulse: 118 Respirations: 19 Pulse Ox (%): 100 Assessment And Plan - Plan - Physical Exam General: Alert, In no apparent distress, Oriented x3 HEENT: Atraumatic, Sclerae nonicteric Neck: JVD not distended Respiratory: Diminished, Clear to auscultation bilaterally without wheezes, rhonchi, or rales Cardiovascular: Irregularly rate/rhythm, No murmurs, Edema (trace BLE) Gastrointestinal: Normal bowel sounds, Soft, Non-distended, No tenderness Musculoskeletal: No clubbing Integumentary: No rashes, Other (alopecia with vitiligo on scalp) Neurological: Normal speech, Normal affect # Paroxysmal Atrial Fibrillation with Rapid Ventricular Response Her [id number] = 3 (HTN=1,CAD=1, Sex=1), which warrants anticoagulation. - Evaluation thus far: - Serial troponin: 133.5 -> 197.6 -> 231.3 -> 72.6 - EKG = atrial fibrillation with RVR - Chest x-ray = "left mid lung airspace opacity, concerning for developing pneumonia. Stable cardiomegaly." - Potassium = 3.8, Magnesium = 1.7 - Target K> 4, Mg >2 - TSH = 1.63 - NT-Pro BNP = 94309 - Transthoracic echocardiogram = "1. concentric left ventricular hypertrophy. 2. no wall motion abnormality. 3. no effusion." - Management plan: - Transfer to ICU - Cardiology consulted and spoke with Dr. Jaime - recommendations appreciated - Recommended that we continue the amiodarone drip today # Hypertensive Emergency with possible Seizure # Seizure Disorder - Nephrology consulted and spoke with Dr. Tucker - recommendations appreciated - Plans to utilize enalaprilat and possibly nicardipine drip for persistent hypertension - CT head = "no acute intracranial abnormality." - Will also obtain MRI and EEG - need to exclude PRES syndrome - Unable to obtain MRI as she has not been comfortable enough to lie flat - Unable to obtain EEG as this is not currently available at our facility - Neurology consulted - recommendations appreciated - Continue home clonidine, doxazosin - Hold home metoprolol given cocaine use # Severe Sepsis likely secondary to Left-Sided Community-Acquired Pneumonia - improving # Immunosupressed State She met sepsis criteria based on RR > 20 breaths/min and WBC > 12,000, and the suspected source is pneumonia. Severe sepsis is suspected due to concern for tissue hypoperfusion/organ dysfunction based on creatinine >2.0 mg/dL (without ESRD). - Radiology: - Chest x-ray = "left mid lung airspace opacity, concerning for developing pneumonia. Stable cardiomegaly." - CT chest/abdomen/pelvis = "large left lower lobe pneumonia. Large widemouth ventral hernia. No definite bowel obstruction." - Pulmonology consulted and spoke with Dr. Hu - recommendations appreciated - Sepsis order set was initiated - Initial Lactate was 2.0 - Blood cultures drawn - Broad spectrum antibiotics started: Vancomycin + Cefepime -> Doxycycline + Cefepime - In regards to fluids: - 30 mL/kg of IV fluids was not administered given SBP > 90, MAP > 65, lactic acid < 4 # Suspected Type II Non-ST Segment Elevation Myocardial Infarction (Demand Ischemia) due to above # Coronary Artery Disease - Evaluation thus far: - EKG: without STEMI criteria, trend - Serial troponin: 133.5 -> 197.6 -> 231.3 -> 211.6 -> 72.6 - Transthoracic echocardiogram = "1. concentric left ventricular hypertrophy. 2. no wall motion abnormality. 3. no effusion." - Management plan: - Consult Cardiology and spoke with Dr. Jaime - recommendations appreciated - He feels that troponin leak is due to demand ischemia - Continue home aspirin - Started atorvastatin - Beta-paolo held due to cocaine use - SREEKANTH-inhibitor/ARB held due to poor renal function # KDIGO Stage I Acute Kidney Injury on Chronic Kidney Disease Stage IV secondary to Lupus Nephritis - improving # Systemic Lupus Erythematosus # Microscopic Hematuria - Nephrology consulted and spoke with Dr. Tucker - recommendations appreciated - Creatinine = 3.70 -> 3.20 -> 2.32 -> 1.94 - Urinalysis = 1+ blood, 75 leukocyte esterase, 1120 RBC, 2+ protein - Renal ultrasound = "both kidneys are echogenic and small in size compatible with medical renal disease." - Continue home calcitriol, sodium bicarbonate, hydroxychloroquine - Hold home mycophenolate per Neph - Monitor creatinine and urine output - Renally dose medications # Hypokalemia # Hypomagnesemia - Appreciate Nephrology recommendations with electrolyte replacement given poor renal function # Substance Use Disorder - Cocaine - UDS positive for amphetamines, cocaine, benzodiazepines (but she has prescriptions for Adderall and Xanax) - Substance cessation counseling # Reported Fall Possibly multifactorial due to multiple issues outlined above - CT head/cervical spine = "no acute traumatic intracranial or cervical spine findings." - Consulted PT # Depression # Prolonged QTc - Continue home gabapentin - Hold home escitalopram given prolonged QTc - repeat EKG requested # Large Ventral Hernia - Follow-up with PCP as an outpatient Juventino Villagran M.D. Physician Review: Patient Assessed, Agree with Above Assessment and Plan
[2023-01-08] MEDS: NICARDIPINE HCL 25 MG in NA CHLORIDE 0.9% 240 ML IV SCH ×2 (00:12→09:48)
--- NOTE | 2023-01-08 00:35 | CON ---
Reason For Consultation: Consultation called because of possible seizures. History Of Present Illness: Ms. Delgado is a 52-year-old right-handed patient who was admitted to [facility] on 01/04/2023 with pneumonia, sepsis, and multidrug abuse. She has a history of se izures, but the specific type is not outlined. The hospitalist evaluated the patient after a rapid r esponse was called at 11:19 on 01/06/2023 when the patient was reportedly jerking all over. He noted , she was awake and speaking during the episode. She did have chest discomfort and EKG revealed atri al fibrillation with rapid ventricular response with blood pressure 219/129. She was treated with di ltiazem drip and monitored in the ICU. Head CT scan showed no acute ischemic or hemorrhagic findings . The study showed mild chronic small vessel ischemic disease. In terms of seizure medications, she is on Keppra 500 mg twice daily. She is also on gabapentin 100 mg twice daily. She is receiving mu ltiple narcotic medications. At the time of my evaluation, the patient did have some tremors in the lower extremities. She was awake, alert, conversational and appropriate and she had no evidence of r ight tonic-clonic activity. Past Medical History: Seizures, small bowel obstruction, hypertension, lupus, coronary artery diseas e, avascular necrosis, pyelonephritis, depression, and suicidal ideation. Past Surgical History: and bowel resection with ileostomy. Family History: Lupus in sister. Father with kidney disease, he is . Mother with hypertens ion and uterine cancer, she is . Brother with hypertension and diabetes. Allergies: MORPHINE. Social History: The patient uses illegal drugs. She was positive for cocaine, amphetamine, and renato odiazepine. Medications: At home are Plaquenil, metoprolol, Ambien, Norvasc, , Lexapro, furosemide, ga bapentin, and clonidine. Review of Systems: Diffuse weakness, myalgias, and tremors. No dermatological issues. No active genitourinary issues. Physical Examination: Vital Signs: Blood pressure 156/93, pulse of 110, respiratory rate 16, temperature 98.2, and O2 satu ration 100%. Weight 195 pounds, height 5 feet 2 inches, BMI 35.7. General: Ms. Delgado is resting in ICU. She has IV placed. HEENT: She balding, losing hair. She appears normocephalic, atraumatic. Sclerae anicteri c. Oropharynx moist. Neck: Supple. Chest: Clear. Heart: Regular. Abdomen: Soft. Extremities: No significant edema. Neurologic: She is alert and oriented. Follows commands appropriately. Cranial nerves show no foca l deficits. She moves both upper and lower extremities equally well. Sensation: No focal loss in t erms of arm or leg side to side. She has full movements in the arms and legs. She was not ambulated in ICU. Laboratory Studies: As noted, she is positive for amphetamine, benzodiazepine, and cocaine. Negativ e marijuana. Urinalysis: 75 esterase, 2+ protein, 11 to 20 red blood cells, 1+ blood. Chemistry: Sodium 137, potassium 3.3, chloride 108, carbon dioxide 20, BUN 28, creatinine 1.94, glucose ranged f rom 108 to 150. C-reactive protein elevated to 28.9. Procalcitonin elevated to 11.33. INR 1.37. O n her admission on the 8th white blood cell count was 20.9, neutrophils 91%. Today white blood cell count is 7.6, neutrophils 58%, hemoglobin 10.1, platelets 230. Assessment: Ms. Delgado is a 52-year-old patient with no activity consistent with seizures. She has not had an EEG, EEG is unavailable. Head CT scan shows small vessel ischemic disease with no acute ischemic or hemorrhagic findings. She is on Keppra 500 mg twice daily. She has blood work consisten t with severe sepsis. Plan: Continue with Keppra 500 mg twice daily. When EEG becomes available, it will be helpful to de termine if there is focal epileptiform activity present. At this point, continue with aggressive management of her sepsis and electrolyte replacement and renal insufficiency. LB/MODL Voice ID: [id number] Report ID: [id number]
[2023-01-08] MEDS: HYDROMORPHONE HCL 0.5 MG/0.5 ML INJ IV PRN ×6 (02:24→22:01)
[2023-01-08 05:34] LABS: Magnesium 1.7 mg/dL (1.6-2.4); Potassium 3.7 mEq/L (3.5-5.1)
[2023-01-08] MEDS: HYDROCODONE/APAP 5/325 MG TAB PO PRN ×2 (06:54→19:16)
[2023-01-08] MEDS: INSULIN -REGULAR HUMAN 50 UNIT/0.5 ML ML SQ SCH ×4 (07:30→20:47)
[2023-01-08] MEDS: HYDROXYCHLOROQUINE 200MG TAB PO SCH ×2 (08:24→20:46)
[2023-01-08] MEDS: ASPIRIN EC 81 MG TAB PO SCH (08:24)
[2023-01-08] MEDS: ALPRAZOLAM 0.5 MG TABLET PO SCH ×2 (08:24→20:47)
[2023-01-08] MEDS: GABAPENTIN 100 MG CAP PO SCH ×2 (08:24→20:46)
[2023-01-08] MEDS: CLONIDINE HCL 0.3 MG TAB PO SCH ×3 (08:24→20:46)
[2023-01-08] MEDS: ENALAPRIL 2.5 MG TAB PO SCH (08:25)
[2023-01-08] MEDS: levETIRAcetam 500 MG in NA CHLORIDE 0.9% 100 ML IV SCH ×2 (08:25→20:49)
[2023-01-08] MEDS ORDERED: DOXAZOSIN 2 MG TAB ONE ×2 (08:25→20:48)
[2023-01-08] MEDS: AMLODIPINE 10 MG TAB PO SCH (08:25)
[2023-01-08] MEDS: MAGNESIUM OXIDE 400 MG TAB PO SCH (08:25)
[2023-01-08] MEDS: DOXAZOSIN 4 MG TAB PO SCH ×2 (08:27→20:45)
--- NOTE | 2023-01-08 10:32 | P.PN ---
Subjective Date of Service: 01/08/23 Chief Complaint: Pneumonia, No acute events overnight. She appears to be much more comfortable this morning. She reports mild shortness of breath, but states that her pain is well- controlled. She is on an amiodarone and nicardipine drip. On rounds, her heart rate was in the 110s-120s and her systolic blood pressures were in the 160s- 170s.. She denies any chest pain or palpitations. Review of Systems 10-point ROS is otherwise unremarkable Respiratory: Shortness of Breath Physical Examination - Vital Signs Temperature: 97.3 F Blood Pressure: 170/97 Pulse: 120 Respirations: 13 Pulse Ox (%): 100 Assessment And Plan - Plan - Physical Exam General: Alert, In no apparent distress, Oriented x3 HEENT: Atraumatic, Sclerae nonicteric Neck: JVD not distended Respiratory: Diminished, Clear to auscultation bilaterally without wheezes, rhonchi, or rales Cardiovascular: Irregularly rate/rhythm, No murmurs, Edema (trace BLE) Gastrointestinal: Normal bowel sounds, Soft, Non-distended, No tenderness Musculoskeletal: No clubbing Integumentary: No rashes, Other (alopecia with vitiligo on scalp) Neurological: Normal speech, Normal affect # Paroxysmal Atrial Fibrillation with Rapid Ventricular Response Her [id number] = 3 (HTN=1,CAD=1, Sex=1), which warrants anticoagulation. - Evaluation thus far: - Serial troponin: 133.5 -> 197.6 -> 231.3 -> 72.6 - EKG = atrial fibrillation with RVR - Chest x-ray = "left mid lung airspace opacity, concerning for developing pneumonia. Stable cardiomegaly." - Potassium = 3.7, Magnesium = 1.7 - Target K> 4, Mg >2 - TSH = 1.63 - NT-Pro BNP = 15713 - Transthoracic echocardiogram = "1. concentric left ventricular hypertrophy. 2. no wall motion abnormality. 3. no effusion." - Management plan: - Cardiology consulted and spoke with Dr. Jaime - recommendations appreciated -Continue amiodarone drip today - Plan to resume enoxaparin once blood pressures are more controlled # Hypertensive Emergency with possible Seizure # Seizure Disorder - Nephrology consulted and spoke with Dr. Tucker - recommendations appreciated - Plans to was nicardipine drip as tolerated - CT head = "no acute intracranial abnormality." - Will also obtain MRI and EEG - need to exclude PRES syndrome - Unable to obtain MRI as she has not been comfortable enough to lie flat and MRI is not available on the weekend - Unable to obtain EEG as this is not currently available at our facility - Neurology consulted - recommendations appreciated - Continue home clonidine, doxazosin - Hold home metoprolol given cocaine use # Severe Sepsis likely secondary to Left-Sided Community-Acquired Pneumonia - improving # Immunosupressed State She met sepsis criteria based on RR > 20 breaths/min and WBC > 12,000, and the suspected source is pneumonia. Severe sepsis is suspected due to concern for tissue hypoperfusion/organ dysfunction based on creatinine >2.0 mg/dL (without ESRD). - Radiology: - Chest x-ray = "left mid lung airspace opacity, concerning for developing pneumonia. Stable cardiomegaly." - CT chest/abdomen/pelvis = "large left lower lobe pneumonia. Large widemouth ventral hernia. No definite bowel obstruction." - Pulmonology consulted and spoke with Dr. Hu - recommendations appreciated - Sepsis order set was initiated - Initial Lactate was 2.0 - Blood cultures drawn - Broad spectrum antibiotics started: Vancomycin + Cefepime -> Doxycycline + Cefepime - In regards to fluids: - 30 mL/kg of IV fluids was not administered given SBP > 90, MAP > 65, lactic acid < 4 -Ordered repeat chest x-ray # Suspected Type II Non-ST Segment Elevation Myocardial Infarction (Demand Ischemia) due to above # Coronary Artery Disease - Evaluation thus far: - EKG: without STEMI criteria, trend - Serial troponin: 133.5 -> 197.6 -> 231.3 -> 211.6 -> 72.6 - Transthoracic echocardiogram = "1. concentric left ventricular hypertrophy. 2. no wall motion abnormality. 3. no effusion." - Management plan: - Consult Cardiology and spoke with Dr. Jaime - recommendations appreciated - He feels that troponin leak is due to demand ischemia - Continue home aspirin - Started atorvastatin - Beta-paolo held due to cocaine use - SREEKANTH-inhibitor/ARB held due to poor renal function # KDIGO Stage I Acute Kidney Injury on Chronic Kidney Disease Stage IV secondary to Lupus Nephritis - improving # Systemic Lupus Erythematosus # Microscopic Hematuria - Nephrology consulted and spoke with Dr. Tucker - recommendations appreciated - Creatinine = 3.70 -> 3.20 -> 2.32 -> 1.94 -> 2.10 - Urinalysis = 1+ blood, 75 leukocyte esterase, 1120 RBC, 2+ protein - Renal ultrasound = "both kidneys are echogenic and small in size compatible with medical renal disease." - Continue home calcitriol, sodium bicarbonate, hydroxychloroquine - Hold home mycophenolate per Neph - Monitor creatinine and urine output - Renally dose medications # Hypokalemia # Hypomagnesemia - Appreciate Nephrology recommendations with electrolyte replacement given poor renal function # Substance Use Disorder - Cocaine - UDS positive for amphetamines, cocaine, benzodiazepines (but she has prescriptions for Adderall and Xanax) - Substance cessation counseling # Reported Fall Possibly multifactorial due to multiple issues outlined above - CT head/cervical spine = "no acute traumatic intracranial or cervical spine findings." - Consulted PT # Depression # Prolonged QTc - Continue home gabapentin - Hold home escitalopram given prolonged QTc - repeat EKG requested # Large Ventral Hernia - Follow-up with PCP as an outpatient Juventino Villagran M.D.
[2023-01-08] MEDS ORDERED: POTASSIUM 25 MEQ EFFERV TAB PO ONE (11:00)
[2023-01-08] MEDS ORDERED: MAGNESIUM SULFATE 1 gm IVPB 1 GM/100 ML BAG IV ONE (11:00)
[2023-01-08] MEDS ORDERED: NICARDIPINE HCL 25 MG in NA CHLORIDE 0.9% 240 ML IV SCH (11:02)
--- NOTE | 2023-01-08 11:06 | P.PN ---
Nephrology note (S) BP improved c/w yesterday AM but pt still on Nicardipine gtt, remains tachy but HR lower in the 110s on Amio. Pt less restless, no active distress, acknowledges some left lower pleurisy (O) Vitals reviewed in the EMR General: Chronically ill appearing, Mild distress HEENT: Atraumatic, alopecia, NC Neck: Supple Respiratory: b/l air entry, reduced BS Lt base Cardiovascular: No edema, Tachy, irregular Gastrointestinal: Soft and benign, Non-distended Musculoskeletal: Shins are non tender, No contractures Integumentary: No rashes, No cyanosis Neurological: Lethargic but awake, responds briefly but appropriately, non focal Laboratory Data (last 24 hrs) Reviewed Imagings Data: EXAM DESCRIPTION: CT CHEST ABDOMEN PELVIS WITHOUT IV CONTRAST CLINICAL HISTORY: ABDOMINAL DISTENTION COMPARISON: 07/14/2022. TECHNIQUE: CT CHEST ABDOMEN PELVIS WITHOUT IV CONTRAST on 01/03/2023 10:17 PM CDT This exam was performed according to our departmental dose-optimization program, which includes automated exposure control, adjustment of the mA and/or kV according to patient size and/or use of iterative reconstruction technique. FINDINGS: Chest: The heart is enlarged. There is no pericardial effusion. Intrathoracic lymph nodes are not enlarged. There is no pleural effusion, pleural thickening or pneumothorax. Central airways are patent. There is a large consolidation replacing much of the left lower lobe. There is mild right basilar atelectasis near the diaphragms. Abdomen: Liver is fatty in attenuation. There is no biliary dilatation. Gallbladder is normal in appearance. The pancreas and spleen are normal in appearance. The adrenal glands are normal. Right kidney is minimally atrophic with mild to moderate left renal atrophy. Extensive widemouth ventral hernia is present anteriorly. Abdominal aorta is normal in course and caliber without aneurysm. There is no free air. There is no retroperitoneal adenopathy. Pelvis: There are postoperative changes of the bowel with at least the sigmoid colon anastomosis. Urinary bladder is decompressed with a Crenshaw catheter. There is no free fluid. Appendix is not clearly seen. Hysterectomy was performed. Skeleton: There are no acute osseous findings. No suspicious bony lesions. IMPRESSION: Large left lower lobe pneumonia. Large widemouth ventral hernia. No definite bowel obstruction. EXAM DESCRIPTION: US - Renal Ultrasound-Complete - 01/04/2023 5:07 am CLINICAL HISTORY: dae Flank pain COMPARISON: Renal Ultrasound-Complete dated 07/13/2016 FINDINGS: Both kidneys are small in size and highly echogenic. Small cysts are present bilaterally, benign appearance. The right kidney measures 7.6 x 3.9 x 3.1 cm. No hydronephrosis, focal mass or perinephric fluid. The left kidney measures 7.8 x 5.1 x 3.2 cm. No hydronephrosis, focal mass or perinephric fluid. The urinary bladder is incompletely distended without gross abnormality seen. IMPRESSION: Both kidneys are echogenic and small in size compatible with medical renal disease. Conclusions/Impression: Stage I DAE likely due to hypovolemia complicated by hypotension on admission since resolved. 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 -Cr level had trended down to baseline level(s) seen earlier in the year or lower. Did d/c IVF early on as pt became hypertensive. -UA with dipstick proteinura and microscopic hematuria. -OP f/u with Rheum for her SLE/lupus nephritis, has been on Benlysta shots and MMF (latter is not currently ordered but will look to resume on discharge) -Did re-start lower dose ACEi since BP remains accelerated Hypokalemia -Monitor levels with resumption of loop diuretics, target level of 4.0 and Mg level of 2.0 with her Afib Metabolic Acidosis -bicarb deficit better, hold PO alkali HTN with CKD, hypertensive urgency -BP has remained elevated today despite several medications, sympathetic response from pain and anxiety driving in part. Will aim to wean off Nicardipine, will start non selective beta paolo. Enalapril started yesterday. Oniel Tucker MD, [facility]
--- NOTE | 2023-01-08 11:57 | RAD REPORT ---
EXAM DESCRIPTION: RAD - Chest Single View - 01/08/2023 11:27 am CLINICAL HISTORY: follow up pneumonia COMPARISON: Chest Single View dated 01/03/2023; Chest Single View dated 01/26/2022; Abdomen 1 View (KUB ) dated 11/26/2021; Chest Single View dated 11/19/2021; Chest Abd Pelvis Wo Con dated 01/03/2023 FINDINGS: Lines: None. Lungs: Retrocardiac consolidation with air bronchograms is likely not significantly change. Despite t he obvious abnormality on the CT, this is not as well seen on radiography Pleural: No significant pleural effusions or pneumothorax. Cardiac: Stable cardiomegaly. Mediastinum: Within normal limits. Bones: No acute fractures. Other: None IMPRESSION: Left lower lobe consolidation is not significantly changed compared with the prior chest radiograph.
[2023-01-08] MEDS: carvediloL 6.25 MG TAB PO SCH ×2 (12:22→20:46)
[2023-01-08] MEDS: CALCITROL 0.25 MCG CAP PO SCH (17:55)
--- NOTE | 2023-01-08 19:05 | RAD REPORT ---
EXAM DESCRIPTION: US - UPPER EXTREMITY VENOUS UNILATE - 01/08/2023 6:56 pm CLINICAL HISTORY: R/O DVT COMPARISON: None FINDINGS: Color Doppler, grayscale, and spectral analysis was performed. Axilla Incomplete compressibility noted at the left mid brachial vein consistent with thrombus. The remainin g veins within the left upper extremity including the left internal jugular vein and subclavian vein are all patent. IMPRESSION: Incompletely compressible left mid brachial vein consistent with nonocclusive venous thr ombosis.
[2023-01-08] MEDS: ATORVASTATIN 20 MG TAB PO SCH (20:46)
--- NOTE | 2023-01-08 21:10 | RAD REPORT ---
EXAM DESCRIPTION: RAD - Chest Single View - 01/08/2023 8:59 pm CLINICAL HISTORY: S/P PICC insertion COMPARISON: Chest Single View dated 01/08/2023; Chest Single View dated 01/03/2023; Chest Single View d ated 01/26/2022; Abdomen 1 View (KUB) dated 11/26/2021 FINDINGS: Right subclavian approach PICC with tip overlying the SVC in satisfactory position. Aerati on of the lungs is similar to earlier in the day. Cardiomegaly. Left basilar consolidation is similar . IMPRESSION: PICC in satisfactory position with tip overlying the SVC.
[2023-01-08] MEDS: ENOXAPARIN 100 MG/ML SYR SQ SCH (21:58)
[2023-01-08] MEDS: AMIODARONE HCL 900 MG in Dextrose 5%-Water 482 ML IV SCH (23:05)
[2023-01-09] MEDS: HYDROMORPHONE HCL 0.5 MG/0.5 ML INJ IV PRN ×6 (01:02→23:13)
[2023-01-09] MEDS: HYDROCODONE/APAP 5/325 MG TAB PO PRN ×2 (03:10→17:32)
[2023-01-09 05:02] LABS: Hematocrit 27.6 % (36.0-45.0); MPV 7.4 fL (7.6-11.3); RBC Red Blood Cell Count 3.29 M/uL (3.86-4.86)
[2023-01-09 05:12] LABS: Magnesium 1.9 mg/dL (1.6-2.4); Potassium 3.9 mEq/L (3.5-5.1)
[2023-01-09] MEDS: INSULIN -REGULAR HUMAN 50 UNIT/0.5 ML ML SQ SCH ×4 (07:30→20:22)
[2023-01-09] MEDS: Mupirocin NASAL 2 APPL/1 GM TUBE NAS SCH ×2 (08:35→20:16)
[2023-01-09] MEDS: ASPIRIN EC 81 MG TAB PO SCH (08:36)
[2023-01-09] MEDS: ALPRAZOLAM 0.5 MG TABLET PO SCH ×2 (08:36→20:23)
[2023-01-09] MEDS: GABAPENTIN 100 MG CAP PO SCH ×2 (08:36→20:22)
[2023-01-09] MEDS: HYDROXYCHLOROQUINE 200MG TAB PO SCH ×2 (08:36→20:23)
[2023-01-09] MEDS: carvediloL 6.25 MG TAB PO SCH ×2 (08:36→20:19)
[2023-01-09] MEDS: DOXAZOSIN 4 MG TAB PO SCH ×2 (08:36→20:27)
[2023-01-09] MEDS: levETIRAcetam 500 MG in NA CHLORIDE 0.9% 100 ML IV SCH ×2 (08:37→21:00)
[2023-01-09] MEDS: CLONIDINE HCL 0.3 MG TAB PO SCH ×3 (08:37→20:19)
[2023-01-09] MEDS: MAGNESIUM OXIDE 400 MG TAB PO SCH (08:38)
[2023-01-09] MEDS: AMLODIPINE 10 MG TAB PO SCH (08:40)
[2023-01-09] MEDS: ENALAPRIL 2.5 MG TAB PO SCH ×2 (08:54→09:00)
[2023-01-09] MEDS: AMIODARONE HCL 200 MG TAB PO SCH ×2 (09:54→20:19)
--- NOTE | 2023-01-09 12:22 | P.PN ---
Nephrology note (S) Pt off Amio, now rate controlled and in SR, off cardene gtt which was restarted overnight. Lt UE doppler positive for brachial DVT. CXR still with left lower lobe consolidation, pt denies dyspnea or cough. (O) Vitals reviewed in the EMR General: Chronically ill appearing, Mild distress HEENT: Atraumatic, alopecia, NC Neck: Supple Respiratory: b/l air entry, reduced BS Lt base Cardiovascular: No edema, Tachy, irregular Gastrointestinal: Soft and benign, Non-distended Musculoskeletal: Shins are non tender, No contractures. Lt UE swollen, some tenderness Integumentary: No rashes, No cyanosis Neurological: Lethargic but awake, responds briefly but appropriately, non focal Laboratory Data (last 24 hrs) Reviewed Imagings Data: EXAM DESCRIPTION: CT CHEST ABDOMEN PELVIS WITHOUT IV CONTRAST CLINICAL HISTORY: ABDOMINAL DISTENTION COMPARISON: 07/14/2022. TECHNIQUE: CT CHEST ABDOMEN PELVIS WITHOUT IV CONTRAST on 01/03/2023 10:17 PM CDT This exam was performed according to our departmental dose-optimization program, which includes automated exposure control, adjustment of the mA and/or kV according to patient size and/or use of iterative reconstruction technique. FINDINGS: Chest: The heart is enlarged. There is no pericardial effusion. Intrathoracic lymph nodes are not enlarged. There is no pleural effusion, pleural thickening or pneumothorax. Central airways are patent. There is a large consolidation replacing much of the left lower lobe. There is mild right basilar atelectasis near the diaphragms. Abdomen: Liver is fatty in attenuation. There is no biliary dilatation. Ga llbladder is normal in appearance. The pancreas and spleen are normal in appearance. The adrenal glands are normal. Right kidney is minimally atrophic with mild to moderate left renal atrophy. Extensive widemouth ventral hernia is present anteriorly. Abdominal aorta is normal in course and caliber without aneurysm. There is no free air. There is no retroperitoneal adenopathy. Pelvis: There are postoperative changes of the bowel with at least the sigmoid colon anastomosis. Urinary bladder is decompressed with a Crenshaw catheter. There is no free fluid. Appendix is not clearly seen. Hysterectomy was performed. Skeleton: There are no acute osseous findings. No suspicious bony lesions. IMPRESSION: Large left lower lobe pneumonia. Large widemouth ventral hernia. No definite bowel obstruction. EXAM DESCRIPTION: US - Renal Ultrasound-Complete - 01/04/2023 5:07 am CLINICAL HISTORY: dae Flank pain COMPARISON: Renal Ultrasound-Complete dated 07/13/2016 FINDINGS: Both kidneys are small in size and highly echogenic. Small cysts are present bilaterally, benign appearance. The right kidney measures 7.6 x 3.9 x 3.1 cm. No hydronephrosis, focal mass or perinephric fluid. The left kidney measures 7.8 x 5.1 x 3.2 cm. No hydronephrosis, focal mass or perinephric fluid. The urinary bladder is incompletely distended without gross abnormality seen. IMPRESSION: Both kidneys are echogenic and small in size compatible with medical renal disease. Conclusions/Impression: Stage I DAE likely due to hypovolemia complicated by hypotension on admission since resolved. 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 -Cr level had trended down to baseline level(s) seen earlier in the year or lower. Did d/c IVF early on as pt became hypertensive. -UA with dipstick proteinura and microscopic hematuria. -OP f/u with Rheum for her SLE/lupus nephritis, has been on Benlysta shots and MMF (latter is not currently ordered but will look to resume on discharge) -Did re-start lower dose ACEi since BP remains accelerated, renal function tests thus far stable Hypokalemia -Monitor levels with resumption of loop diuretics, target level of 4.0 and Mg level of 2.0 with her Afib Metabolic Acidosis -bicarb deficit better, holding PO alkali HTN with CKD, hypertensive urgency -BP has remained elevated today despite several medications, sympathetic response from pain and anxiety driving in part.Have weaned off Nicardipine, did start non selective beta paolo yesterday. Enalapril started earlier. Cont to monitor closely Oniel Tucker MD, [facility]
--- NOTE | 2023-01-09 12:27 | P.PN ---
Subjective Date of Service: 01/09/23 Chief Complaint: Pneumonia, Overnight, her left upper extremity Doppler returned positive for a nonocclusive mid-brachial vein thrombosis. Her nicardipine drip was re-started due to persistent hypertension. She is now in normal sinus rhythm. She appears comfortable and reports no concerns this morning. She denies any chest pain or palpitations. Review of Systems 10-point ROS is otherwise unremarkable Musculoskeletal: Arm Pain (left near DVT) Physical Examination - Vital Signs Temperature: 97.3 F Blood Pressure: 142/81 Pulse: 72 Respirations: 19 Pulse Ox (%): 100 - Studies Microbiology Data (last 24 hrs): 01/03/23 22:48 Blood - Blood Aerobic Blood Culture - Final No growth in 5 days. 01/03/23 22:48 Blood - Blood Anaerobic Blood Culture - Final No growth in 5 days. 01/03/23 22:48 Blood - Blood Aerobic Blood Culture - Final No growth in 5 days. 01/03/23 22:48 Blood - Blood Anaerobic Blood Culture - Final No growth in 5 days. Assessment And Plan - Plan - Physical Exam General: Alert, In no apparent distress, Oriented x3 HEENT: Atraumatic, Sclerae nonicteric Neck: JVD not distended Respiratory: Diminished, Clear to auscultation bilaterally without wheezes, rhonchi, or rales Cardiovascular: Irregularly rate/rhythm, No murmurs, Edema (trace BLE) Gastrointestinal: Normal bowel sounds, Soft, Non-distended, No tenderness Musculoskeletal: No clubbing Integumentary: No rashes, Other (alopecia with vitiligo on scalp) Neurological: Normal speech, Normal affect # Paroxysmal Atrial Fibrillation with Rapid Ventricular Response # Provoked Left Brachial Vein Deep Venous Thrombosis Her [id number] = 3 (HTN=1,CAD=1, Sex=1), which warrants anticoagulation. - Evaluation thus far: - Serial troponin: 133.5 -> 197.6 -> 231.3 -> 72.6 - EKG = atrial fibrillation with RVR - Chest x-ray = "left mid lung airspace opacity, concerning for developing pneumonia. Stable cardiomegaly." - Potassium = 3.7, Magnesium = 1.7 - Target K> 4, Mg >2 - TSH = 1.63 - NT-Pro BNP = 85802 - Transthoracic echocardiogram = "1. concentric left ventricular hypertrophy. 2. no wall motion abnormality. 3. no effusion." - Management plan: - Cardiology consulted and spoke with Dr. Jaime - recommendations appreciated - Transition from amiodarone drip to PO amiodarone today today - Continue enoxaparin # Hypertensive Emergency with possible Seizure # Seizure Disorder - Nephrology consulted and spoke with Dr. Tucker - recommendations appreciated - Plan to wean nicardipine drip as tolerated - CT head = "no acute intracranial abnormality." - Will also obtain MRI and EEG - need to exclude PRES syndrome - Unable to obtain MRI as she has not been comfortable enough to lie flat and MRI is not available on the weekend - Unable to obtain EEG as this is not currently available at our facility - Neurology consulted - recommendations appreciated - Continue home clonidine, doxazosin - Started on carvedilol per Neph recs # Severe Sepsis likely secondary to Left-Sided Community-Acquired Pneumonia - improving # Immunosupressed State She met sepsis criteria based on RR > 20 breaths/min and WBC > 12,000, and the suspected source is pneumonia. Severe sepsis is suspected due to concern for tissue hypoperfusion/organ dysfunction based on creatinine >2.0 mg/dL (without ESRD). - Radiology: - Chest x-ray = "left mid lung airspace opacity, concerning for developing pneumonia. Stable cardiomegaly." - CT chest/abdomen/pelvis = "large left lower lobe pneumonia. Large widemouth ventral hernia. No definite bowel obstruction." - Pulmonology consulted and spoke with Dr. Hu - recommendations appreciated - Sepsis order set was initiated - Initial Lactate was 2.0 - Blood cultures drawn - Broad spectrum antibiotics started: Vancomycin + Cefepime -> Doxycycline + Cefepime - In regards to fluids: - 30 mL/kg of IV fluids was not administered given SBP > 90, MAP > 65, lactic acid < 4 - Repeat chest x-ray (01/08) = "left lower lobe consolidation is not significantly changed compared with the prior chest radiograph." # Suspected Type II Non-ST Segment Elevation Myocardial Infarction (Demand Isc hemia) due to above # Coronary Artery Disease - Evaluation thus far: - EKG: without STEMI criteria, trend - Serial troponin: 133.5 -> 197.6 -> 231.3 -> 211.6 -> 72.6 - Transthoracic echocardiogram = "1. concentric left ventricular hypertrophy. 2. no wall motion abnormality. 3. no effusion." - Management plan: - Consult Cardiology and spoke with Dr. Jaime - recommendations appreciated - He feels that troponin leak is due to demand ischemia - Continue home aspirin - Started atorvastatin - Started on carvedilol per Neph - SREEKANTH-inhibitor/ARB held due to poor renal function # KDIGO Stage I Acute Kidney Injury on Chronic Kidney Disease Stage IV secondary to Lupus Nephritis - improving # Systemic Lupus Erythematosus # Microscopic Hematuria - Nephrology consulted and spoke with Dr. Tucker - recommendations appreciated - Creatinine = 3.70 -> 3.20 -> 2.32 -> 1.94 -> 2.10 -> 2.11 - Urinalysis = 1+ blood, 75 leukocyte esterase, 1120 RBC, 2+ protein - Renal ultrasound = "both kidneys are echogenic and small in size compatible with medical renal disease." - Continue home calcitriol, sodium bicarbonate, hydroxychloroquine - Hold home mycophenolate per Neph - Monitor creatinine and urine output - Renally dose medications # Hypokalemia # Hypomagnesemia - Appreciate Nephrology recommendations with electrolyte replacement given poor renal function # Substance Use Disorder - Cocaine - UDS positive for amphetamines, cocaine, benzodiazepines (but she has prescriptions for Adderall and Xanax) - Substance cessation counseling # Reported Fall Possibly multifactorial due to multiple issues outlined above - CT head/cervical spine = "no acute traumatic intracranial or cervical spine findings." - Consulted PT # Depression # Prolonged QTc - Continue home gabapentin - Hold home escitalopram given prolonged QTc - repeat EKG requested # Large Ventral Hernia - Follow-up with PCP as an outpatient Juventino Villagran M.D.
[2023-01-09] MEDS: DOXYCYCLINE 100 MG in NA CHLORIDE 0.9% 100 ML IVPB SCH ×2 (13:20→20:23)
[2023-01-09] MEDS: CEFEPIME 1 GM in NA CHLORIDE 0.9% 100 ML IV SCH (13:20)
--- NOTE | 2023-01-09 14:48 | EKG ---
Test Date: 2023-01-07 Test Time: 09:13:59 Lens Blank Gauger: EC MEASUREMENT RESULTS: Intervals: Rate: 127 DC: 152 QRSD: 94 QT: 320 QTc: 465 [place]: P: 26 DC: 152 QRS: -22 T: 119 INTERPRETIVE STATEMENTS: Sinus tachycardia with premature atrial complexes Left ventricular hypertrophy with repolarization abnormality Abnormal ECG Compared to ECG 01/06/2023 11:27:01 Fusion complex(es) no longer present Ventricular premature complex(es) no longer present Electronically Signed On 01-09-23 14:44:46 CDT by Dario Ackerman
[2023-01-09] MEDS ORDERED: DOXAZOSIN 2 MG TAB ONE (20:16)
[2023-01-09] MEDS: ATORVASTATIN 20 MG TAB PO SCH (20:20)
[2023-01-09] MEDS: ENOXAPARIN 100 MG/ML SYR SQ SCH (20:20)
[2023-01-10] MEDS: HYDROMORPHONE HCL 0.5 MG/0.5 ML INJ IV PRN ×5 (03:11→15:39)
[2023-01-10 04:53] VITALS: BMI 35.3
[2023-01-10 05:10] LABS: Absolute Lymphocytes (CBC) 2.1 K/uL (0.7-4.9); Hematocrit 26.3 % (36.0-45.0); Lymphocytes % 22.3 % (15.3-44.8); MCV 84.5 fL (80-100); MPV 7.7 fL (7.6-11.3); RBC Red Blood Cell Count 3.12 M/uL (3.86-4.86)
[2023-01-10 05:23] LABS: Magnesium 1.9 mg/dL (1.6-2.4); Potassium 4.1 mEq/L (3.5-5.1)
[2023-01-10] MEDS: INSULIN -REGULAR HUMAN 50 UNIT/0.5 ML ML SQ SCH ×4 (07:30→21:00)
--- NOTE | 2023-01-10 07:55 | RAD REPORT ---
EXAM DESCRIPTION: US - UPPER EXTREMITY VENOUS UNILATE - 01/10/2023 12:27 am CLINICAL HISTORY: Rule out DVT COMPARISON: None. TECHNIQUE: Real-time sonographic evaluation of the right upper extremity deep venous system was perf ormed. FINDINGS: Normal compressibility, flow augmentation, phasic flow and spontaneous flow is identified in the right upper extremity deep venous system. No intraluminal filling defects seen. Note that the cephalic vein was not visualized. IMPRESSION: No DVT in the right upper extremity. Nonvisualized cephalic vein.
[2023-01-10] MEDS ORDERED: DOXAZOSIN 2 MG TAB ONE (08:27)
[2023-01-10] MEDS: HYDROXYCHLOROQUINE 200MG TAB PO SCH ×2 (08:35→21:21)
[2023-01-10] MEDS: ENALAPRIL 2.5 MG TAB PO SCH ×2 (08:36→22:28)
[2023-01-10] MEDS: DOXAZOSIN 4 MG TAB PO SCH ×2 (08:36→21:22)
[2023-01-10] MEDS: HYDROCODONE/APAP 5/325 MG TAB PO PRN ×3 (08:37→21:19)
[2023-01-10] MEDS: ALPRAZOLAM 0.5 MG TABLET PO SCH ×2 (08:37→21:20)
[2023-01-10] MEDS: carvediloL 6.25 MG TAB PO SCH ×2 (08:37→21:21)
[2023-01-10] MEDS: CLONIDINE HCL 0.3 MG TAB PO SCH ×3 (08:37→21:21)
[2023-01-10] MEDS: ASPIRIN EC 81 MG TAB PO SCH (08:37)
[2023-01-10] MEDS: MAGNESIUM OXIDE 400 MG TAB PO SCH (08:38)
[2023-01-10] MEDS: GABAPENTIN 100 MG CAP PO SCH ×2 (08:38→21:20)
[2023-01-10] MEDS: AMIODARONE HCL 200 MG TAB PO SCH ×2 (08:38→21:21)
[2023-01-10] MEDS: AMLODIPINE 10 MG TAB PO SCH (08:38)
[2023-01-10] MEDS: Mupirocin NASAL 2 APPL/1 GM TUBE NAS SCH ×2 (08:39→21:00)
[2023-01-10] MEDS: DOXYCYCLINE 100 MG in NA CHLORIDE 0.9% 100 ML IVPB SCH ×2 (08:46→21:23)
[2023-01-10] MEDS: ONDANSETRON 4 MG/2 ML VIAL IV PRN (08:52)
--- NOTE | 2023-01-10 11:47 | EKG ---
Test Date: 2023-01-07 Test Time: 09:15:11 Ditching Machine Engineer: EC MEASUREMENT RESULTS: Intervals: Rate: 126 CT: 142 QRSD: 102 QT: 358 QTc: 518 [place]: P: -29 CT: 142 QRS: -23 T: 118 INTERPRETIVE STATEMENTS: Sinus tachycardia with premature atrial complexes Left ventricular hypertrophy with repolarization abnormality Abnormal ECG Compared to ECG 01/07/2023 09:13:59 No significant changes Electronically Signed On 01-10-23 11:41:58 CDT by Jesse Jaime
[2023-01-10] MEDS: CEFEPIME 1 GM in NA CHLORIDE 0.9% 100 ML IV SCH (14:15)
--- NOTE | 2023-01-10 16:12 | P.PN ---
Subjective Date of Service: 01/10/23 Chief Complaint: Pneumonia, No acute events overnight. She appears more comfortable this morning. Her blood pressure has been more controlled off of the nicardipine drip. She remains in normal sinus rhythm. She continues to report diffuse body pain, requiring IV hydromorphone. Will downgrade to Med/Surg today and attempt to wean off of IV narcotics. She denies any chest pain, shortness of breath, or palpitations. Review of Systems 10-point ROS is otherwise unremarkable Musculoskeletal: Other (generalized body pain) Physical Examination - Vital Signs Temperature: 97.2 F Blood Pressure: 142/93 Pulse: 71 Respirations: 11 Pulse Ox (%): 100 Assessment And Plan - Plan - Physical Exam General: Alert, In no apparent distress, Oriented x3 HEENT: Atraumatic, Sclerae nonicteric Neck: JVD not distended Respiratory: Diminished, Clear to auscultation bilaterally without wheezes, rhonchi, or rales Cardiovascular: Irregularly rate/rhythm, No murmurs, Edema (trace BLE) Gastrointestinal: Normal bowel sounds, Soft, Non-distended, No tenderness Musculoskeletal: No clubbing Integumentary: No rashes, Other (alopecia with vitiligo on scalp) Neurological: Normal speech, Normal affect # Paroxysmal Atrial Fibrillation with Rapid Ventricular Response # Provoked Left Brachial Vein Deep Venous Thrombosis Her [id number] = 3 (HTN=1,CAD=1, Sex=1), which warrants anticoagulation. - Evaluation thus far: - Serial troponin: 133.5 -> 197.6 -> 231.3 -> 72.6 - EKG = atrial fibrillation with RVR - Chest x-ray = "left mid lung airspace opacity, concerning for developing pneumonia. Stable cardiomegaly." - Potassium = 3.7, Magnesium = 1.7 - Target K> 4, Mg >2 - TSH = 1.63 - NT-Pro BNP = 69472 - Transthoracic echocardiogram = "1. concentric left ventricular hypertrophy. 2. no wall motion abnormality. 3. no effusion." - Management plan: - Cardiology consulted and spoke with Dr. Jaime - recommendations appreciated -Continue amiodarone - Continue enoxaparin # Hypertensive Emergency with possible Seizure # Seizure Disorder - Nephrology consulted and spoke with Dr. Tucker - recommendations appreciated - Plan to wean nicardipine drip as tolerated - CT head = "no acute intracranial abnormality." - Will also obtain MRI and EEG - need to exclude PRES syndrome - Unable to obtain MRI as she has not been comfortable enough to lie flat and MRI is not available on the weekend - Unable to obtain EEG as this is not currently available at our facility - Neurology consulted - recommendations appreciated - Continue home clonidine, doxazosin - Started on carvedilol per Neph recs # Severe Sepsis likely secondary to Left-Sided Community-Acquired Pneumonia - improving # Immunosupressed State She met sepsis criteria based on RR > 20 breaths/min and WBC > 12,000, and the suspected source is pneumonia. Severe sepsis is suspected due to concern for tissue hypoperfusion/organ dysfunction based on creatinine >2.0 mg/dL (without ESRD). - Radiology: - Chest x-ray = "left mid lung airspace opacity, concerning for developing pneumonia. Stable cardiomegaly." - CT chest/abdomen/pelvis = "large left lower lobe pneumonia. Large widemouth ventral hernia. No definite bowel obstruction." - Pulmonology consulted and spoke with Dr. Hu - recommendations appreciated - Sepsis order set was initiated - Initial Lactate was 2.0 - Blood cultures drawn - Broad spectrum antibiotics started: Vancomycin + Cefepime -> Doxycycline + Cefepime - In regards to fluids: - 30 mL/kg of IV fluids was not administered given SBP > 90, MAP > 65, lactic acid < 4 - Repeat chest x-ray (01/08) = "left lower lobe consolidation is not significantly changed compared with the prior chest radiograph." # Suspected Type II Non-ST Segment Elevation Myocardial Infarction (Demand Ischemia) due to above # Coronary Artery Disease - Evaluation thus far: - EKG: without STEMI criteria, trend - Serial troponin: 133.5 -> 197.6 -> 231.3 -> 211.6 -> 72.6 - Transthoracic echocardiogram = "1. concentric left ventricular hypertrophy. 2. no wall motion abnormality. 3. no effusion." - Management plan: - Consult Cardiology and spoke with Dr. Jaime - recommendations appreciated - He feels that troponin leak is due to demand ischemia - Continue home aspirin - Started atorvastatin - Started on carvedilol per Neph - SREEKANTH-inhibitor/ARB held due to poor renal function # KDIGO Stage I Acute Kidney Injury on Chronic Kidney Disease Stage IV secondary to Lupus Nephritis - improving # Systemic Lupus Erythematosus # Microscopic Hematuria - Nephrology consulted and spoke with Dr. Tucker - recommendations appreciated - Creatinine = 3.70 -> 3.20 -> 2.32 -> 1.94 -> 2.10 -> 2.11 - Urinalysis = 1+ blood, 75 leukocyte esterase, 1120 RBC, 2+ protein - Renal ultrasound = "both kidneys are echogenic and small in size compatible with medical renal disease." - Continue home calcitriol, sodium bicarbonate, hydroxychloroquine - Hold home mycophenolate per Neph - Monitor creatinine and urine output - Renally dose medications # Hypokalemia # Hypomagnesemia - Appreciate Nephrology recommendations with electrolyte replacement given poor renal function # Substance Use Disorder - Cocaine - UDS positive for amphetamines, cocaine, benzodiazepines (but she has prescriptions for Adderall and Xanax) - Substance cessation counseling # Reported Fall Possibly multifactorial due to multiple issues outlined above - CT head/cervical spine = "no acute traumatic intracranial or cervical spine findings." - Consulted PT # Depression # Prolonged QTc - Continue home gabapentin - Hold home escitalopram given prolonged QTc - repeat EKG requested # Large Ventral Hernia - Follow-up with PCP as an outpatient 01/10/2023 - Clinically improving. Discontinue IV hydromorphone and switch to PO hydrocodone-acetaminophen. Downgrade out of ICU today. Juventino Villagran M.D.
[2023-01-10] MEDS: CALCITROL 0.25 MCG CAP PO SCH (17:45)
[2023-01-10] MEDS: ENOXAPARIN 100 MG/ML SYR SQ SCH (21:22)
[2023-01-10] MEDS: ATORVASTATIN 20 MG TAB PO SCH (21:22)
--- NOTE | 2023-01-10 21:36 | P.PN ---
Date of Service: 01/10/23 Vital Signs Temp Pulse Resp BP Pulse Ox 97.2 F 85 16 184/97 H 96 01/10/23 16:10 01/10/23 21:22 01/10/23 21:19 01/10/23 21:22 01/10/23 21:19 Medications Hydrocodone Bitart/Acetaminophen (Hydrocodone/Apap 5/325 Mg Tab) 1 tab PO Q6H PRN PRN Reason: Pain scale 5-7 (Moderate) Last Admin: 01/10/23 21:19 Dose: 1 tab Alprazolam (Alprazolam 0.5 Mg Tablet) 0.5 mg PO BID [facility] Last Admin: 01/10/23 21:20 Dose: 0.5 mg Amiodarone HCl (Amiodarone Hcl 200 Mg Tab) 200 mg PO BID [facility] Last Admin: 01/10/23 21:21 Dose: 200 mg Amlodipine Besylate (Amlodipine 10 Mg Tab) 10 mg PO DAILY [facility] Last Admin: 01/10/23 08:38 Dose: 10 mg Aspirin (Aspirin Ec 81 Mg Tab) 81 mg PO DAILY [facility] Last Admin: 01/10/23 08:37 Dose: 81 mg Atorvastatin Calcium (Atorvastatin 20 Mg Tab) 20 mg PO BEDTIME [facility] Last Admin: 01/10/23 21:22 Dose: 20 mg Calcitriol (Calcitrol 0.25 Mcg Cap) 0.25 mcg PO Q48H [facility] Last Admin: 01/10/23 17:45 Dose: 0.25 mcg Carvedilol (Carvedilol 6.25 Mg Tab) 6.25 mg PO BID [facility] Last Admin: 01/10/23 21:21 Dose: 6.25 mg Clonidine HCl (Clonidine Hcl 0.3 Mg Tab) 0.3 mg PO TID [facility] Last Admin: 01/10/23 21:21 Dose: 0.3 mg Doxazosin Mesylate (Doxazosin 4 Mg Tab) 4 mg PO BID [facility] Last Admin: 01/10/23 21:22 Dose: 4 mg Enalapril Maleate (Enalapril 2.5 Mg Tab) 5 mg PO DAILY [facility] Last Admin: 01/10/23 08:36 Dose: 5 mg Enoxaparin Sodium (Enoxaparin 100 Mg/Ml Syr) 90 mg 1 mg/kg (90 mg) SQ BEDTIME [facility] Last Admin: 01/10/23 21:22 Dose: 90 mg Gabapentin (Gabapentin 100 Mg Cap) 100 mg PO BID [facility] Last Admin: 01/10/23 21:20 Dose: 100 mg Hydroxychloroquine Sulfate (Hydroxychloroquine 200mg Tab) 200 mg PO BID [facility] Last Admin: 01/10/23 21:21 Dose: 200 mg Cefepime HCl 1 gm/ Sodium (Chloride) 100 mls @ 200 mls/hr IV Q24H [facility]; Protocol Last Admin: 01/10/23 14:15 Dose: 100 mls Doxycycline Hyclate 100 mg/ (Sodium Chloride) 100 mls @ 100 mls/hr IVPB Q12HR [facility]; Protocol Last Admin: 01/10/23 21:23 Dose: 100 mls Insulin Human Regular (Insulin -Regular Human 50 Unit/0.5 Ml Ml) 0 unit SQ ACHS [facility]; Protocol Last Admin: 01/10/23 21:00 Dose: Not Given Magnesium Oxide (Magnesium Oxide 400 Mg Tab) 400 mg PO DAILY [facility] Last Admin: 01/10/23 08:38 Dose: 400 mg Mupirocin (Mupirocin Nasal 2 Appl/1 Gm Tube) 1 appl RAY BID [facility] Stop: 01/13/23 21:01 Last Admin: 01/10/23 21:00 Dose: Not Given Ondansetron HCl (Ondansetron 4 Mg/2 Ml Vial) 4 mg IV Q6HP PRN PRN Reason: NAUSEA / VOMITING Last Admin: 01/10/23 08:52 Dose: 4 mg Sodium Chloride (Flush Normal Saline 10 Ml) 10 ml IV BID [facility] Last Admin: 01/10/23 21:00 Dose: 10 ml Microbiology Results 01/03/23 22:48 Blood - Blood Aerobic Blood Culture - Final No growth in 5 days. 01/03/23 22:48 Blood - Blood Anaerobic Blood Culture - Final No growth in 5 days. 01/03/23 22:48 Blood - Blood Aerobic Blood Culture - Final No growth in 5 days. 01/03/23 22:48 Blood - Blood Anaerobic Blood Culture - Final No growth in 5 days. Assessment/ Plan: Nephrology No dyspnea No chest pain No acute events overnight Vitals, medications, blood work and imaging reviewed in the chart. General: Oriented x3, Cooperative, Mild distress HEENT: Atraumatic Neck: Supple Respiratory: Clear to auscultation bilaterally Cardiovascular: No edema, Regular rate/rhythm Gastrointestinal: Soft and benign, Non-distended Musculoskeletal: No clubbing, No contractures Integumentary: No rashes, No cyanosis Neurological: Normal speech Laboratory Data (last 24 hrs) 01/03/23 20:01: PT 15.1 H, INR 1.37, APTT 26.6 01/03/23 20:01: WBC 20.90 H, Hgb 10.7 L, Hct 33.6 L, Plt Count 179 01/03/23 20:01: Sodium 132 L, Potassium 2.8 L, BUN 34 H, Creatinine 3.70 H, Glucose 103, Magnesium 1.3 L, Total Bilirubin 1.4 H, AST 19, ALT 13, Alkaline Phosphatase 108 Imagings Data: EXAM DESCRIPTION: RADChest Single View01/03/2023 8:57 pm CLINICAL HISTORY: COUGH COMPARISON: Chest Single View dated 01/26/2022; Abdomen 1 View (KUB) dated 11/26/2021; Chest Single View dated 11/19/2021; Chest Pa And Lat (2 Views) dated 10/26/2021 TECHNIQUE: Portable AP view of the chest. FINDINGS: Hazy airspace opacification in the left mid lung. No pneumothorax or effusion. Stable cardiomegaly. Mediastinal contours are unchanged. IMPRESSION: Left mid lung airspace opacity, concerning for developing pneumonia. Stable cardiomegaly EXAM DESCRIPTION: CT CHEST ABDOMEN PELVIS WITHOUT IV CONTRAST CLINICAL HISTORY: ABDOMINAL DISTENTION COMPARISON: 07/14/2022. TECHNIQUE: CT CHEST ABDOMEN PELVIS WITHOUT IV CONTRAST on 01/03/2023 10:17 PM CDT This exam was performed according to our departmental dose-optimization program, which includes automated exposure control, adjustment of the mA and/or kV according to patient size and/or use of iterative reconstruction technique. FINDINGS: Chest: The heart is enlarged. There is no pericardial effusion. Intrathoracic lymph nodes are not enlarged. There is no pleural effusion, pleural thickening or pneumothorax. Central airways are patent. There is a large consolidation replacing much of the left lower lobe. There is mild right basilar atelectasis near the diaphragms. Abdomen: Liver is fatty in attenuation. There is no biliary dilatation. Gallbladder is normal in appearance. The pancreas and spleen are normal in appearance. The adrenal glands are normal. Right kidney is minimally atrophic with mild to moderate left renal atrophy. Extensive widemouth ventral hernia is present anteriorly. Abdominal aorta is normal in course and caliber without aneurysm. There is no free air. There is no retroperitoneal adenopathy. Pelvis: There are postoperative changes of the bowel with at least the sigmoid colon anastomosis. Urinary bladder is decompressed with a Crenshaw catheter. There is no free fluid. Appendix is not clearly seen. Hysterectomy was performed. Skeleton: There are no acute osseous findings. No suspicious bony lesions. IMPRESSION: Large left lower lobe pneumonia. Large widemouth ventral hernia. No definite bowel obstruction. EXAM DESCRIPTION: US - Renal Ultrasound-Complete - 01/04/2023 5:07 am CLINICAL HISTORY: caden Flank pain COMPARISON: Renal Ultrasound-Complete dated 07/13/2016 FINDINGS: Both kidneys are small in size and highly echogenic. Small cysts are present bilaterally, benign appearance. The right kidney measures 7.6 x 3.9 x 3.1 cm. No hydronephrosis, focal mass or perinephric fluid. The left kidney measures 7.8 x 5.1 x 3.2 cm. No hydronephrosis, focal mass or perinephric fluid. The urinary bladder is incompletely distended without gross abnormality seen. IMPRESSION: Both kidneys are echogenic and small in size compatible with medical renal disease. Conclusions/Impression: Stage I CADEN likely due to hypovolemia complicated by hypotension on admission CKD IV with Proteinuria Hx Lupus Nephritis -No NSAIDs Hypokalemia -Replete potassium prn Metabolic Acidosis -Continue oral bicarb Hypomagnesemia -Continue MagOx HTN with CKD -Continue antihypertensives as ordered -Increase Enalapril BID -Increase Coreg 12.5 BID DM II with CKD -RISS Hypoalbuminemia -Consider protein supplementation LLL PNA -Continue Abx Cocaine abuse -Recommend cessation Case reviewed with Dr. Villagran
--- NOTE | 2023-01-10 22:27 | PN ---
Date of Progress Note: 01/10/2023 Ms. Delgado follows for hypertension, atrial fibrillation, cocaine use, dyslipidemia, anxiety. Last creatinine was 2.04. Last hemoglobin was 8.6. Her last blood pressure was adequate, 154/90. She re desmond in sinus rhythm. She is on amiodarone 200 mg daily. She is still on Coreg, Keppra, antibiotic s, Xanax, Norvasc, clonidine, aspirin, Lipitor, Hytrin, lisinopril, lovastatin, and Lasix. She will continue the amiodarone 200 mg daily. When she goes home, she needs to be on anticoagulants, either Eliquis or Xarelto, and I will leave that up to Dr. Villagran. Cardiac-gonzalez, we will sign off her case. POLO/PRITI Voice ID: [id number] Report ID: [id number]
[2023-01-11] MEDS: HYDROCODONE/APAP 5/325 MG TAB PO PRN (03:26)
[2023-01-11 03:44] VITALS: O2SAT 98
[2023-01-11] MEDS ORDERED: IPRATROPIUM BROM 0.5MG/2.5ML NEB ONE (03:47)
[2023-01-11] MEDS ORDERED: ALBUTEROL 2.5 MG/3 ML NEB SOL NEB ONE (03:47)
[2023-01-11 05:52] LABS: Potassium 4.5 mEq/L (3.5-5.1)
[2023-01-11] MEDS: INSULIN -REGULAR HUMAN 50 UNIT/0.5 ML ML SQ SCH (07:30)
--- NOTE | 2023-01-11 07:51 | EKG ---
Test Date: 2023-01-06 Test Time: 11:27:01 Technical Systems Architect: NEVIN MEASUREMENT RESULTS: Intervals: Rate: 149 AR: 176 QRSD: 84 QT: 302 QTc: 475 [place]: P: 28 AR: 176 QRS: -2 T: 101 INTERPRETIVE STATEMENTS: Sinus tachycardia with premature atrial complexes and premature ventricular complexes or fusion complexes Left ventricular hypertrophy with repolarization abnormality Abnormal ECG Compared to ECG 01/06/2023 11:16:45 Atrial premature complex(es) now present Fusion complex(es) now present Ventricular premature complex(es) now present Early repolarization now present T-wave abnormality no longer present Possible ischemia no longer present Electronically Signed On 01-11-23 07:46:39 CDT by Jesse Jaime
--- NOTE | 2023-01-11 07:51 | EKG ---
Test Date: 2023-01-06 Test Time: 11:16:45 Ammonia Print Operator: NEVIN MEASUREMENT RESULTS: Intervals: Rate: 127 ME: 138 QRSD: 96 QT: 326 QTc: 473 Ovid: P: 17 ME: 138 QRS: 65 T: -41 INTERPRETIVE STATEMENTS: Sinus tachycardia Possible Left atrial enlargement Left ventricular hypertrophy T wave abnormality, consider inferior ischemia Abnormal ECG Compared to ECG 01/03/2023 20:02:36 T-wave abnormality now present Possible ischemia now present Sinus rhythm no longer present Atrial premature complex(es) no longer present Early repolarization no longer present Prolonged QT interval no longer present Electronically Signed On 01-11-23 07:46:40 CDT by Jesse Jaime
[2023-01-11 08:48] VITALS: BP 176/99; TEMP 96.8
[2023-01-11] MEDS: DOXYCYCLINE 100 MG in NA CHLORIDE 0.9% 100 ML IVPB SCH (08:55)
[2023-01-11] MEDS: HYDROXYCHLOROQUINE 200MG TAB PO SCH (08:56)
[2023-01-11] MEDS: ALPRAZOLAM 0.5 MG TABLET PO SCH (08:56)
[2023-01-11] MEDS: CLONIDINE HCL 0.3 MG TAB PO SCH (08:56)
[2023-01-11] MEDS: ENALAPRIL 2.5 MG TAB PO SCH (08:56)
[2023-01-11] MEDS: Mupirocin NASAL 2 APPL/1 GM TUBE NAS SCH (08:56)
[2023-01-11] MEDS: MAGNESIUM OXIDE 400 MG TAB PO SCH (08:57)
[2023-01-11] MEDS: AMLODIPINE 10 MG TAB PO SCH (08:57)
[2023-01-11] MEDS: GABAPENTIN 100 MG CAP PO SCH (08:57)
[2023-01-11] MEDS: AMIODARONE HCL 200 MG TAB PO SCH (08:57)
[2023-01-11] MEDS: DOXAZOSIN 4 MG TAB PO SCH (08:57)
[2023-01-11] MEDS: ASPIRIN EC 81 MG TAB PO SCH (08:57)
[2023-01-11] MEDS ORDERED: carvediloL 6.25 MG TAB PO SCH (09:00)
--- NOTE | 2023-01-11 09:41 | P.DS ---
Admission Date: 01/04/23 Discharge Date: 01/11/23 Disposition: ROUTINE DISCHARGE Reason for Admission: Pneumonia Consultations: 1. Cardiology 2. Pulmonology 3. Nephrology 4. 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 Babs Delgado is a 52 year old female with a past medical history significant for hypertension, seizure disorder, systemic lupus erythematosus, coronary artery disease, substance use disorder, and depression who was admitted to the [facility] [place], [place] on 01/04/2023 for pneumonia. She was admitted to the Medicine service. Upon further evaluation, her chest x- ray revealed, "left mid lung airspace opacity, concerning for developing pneumonia. Stable cardiomegaly." Her CT head/cervical spine revealed, "no acute traumatic intracranial or cervical spine findings." Pulmonology was consulted and she was evaluated by Dr. Hu. She was started on IV antibiotics, and over the course of her hospitalization, her breathing improved. Shortly into admission, she developed hypertensive emergency with a seizurelike episode and developed paroxysmal atrial fibrillation with rapid ventricular response. She was transferred to the intensive care unit and started on an amiodarone drip. For her atrial fibrillation, she was started on amiodarone drip, and gradually her heart rate improved and she converted back to normal sinus rhythm. Her transthoracic echocardiogram revealed, "1. concentric left ventricular hypertrophy. 2. no wall motion abnormality. 3. no effusion." She was noted to have an elevated troponin trend, which Cardiology has attributed to demand ischemia. Dr. Jaime has cleared her for discharge and recommended that she be discharged with amiodarone and apixaban. For her malignant hypertension, Nephrology was consulted and she was evaluated by Dr. Adkins and Dr. Tucker. She was initially started on a nicardipine drip, but with the assistance of Nephrology, her PO regimen was titrated upwards, the nicardipine drip was weaned, and she was cleared for discharge from a Nephrology standpoint. In regards to the seizure-like episode, she has a history of seizures. Neurology was consulted. A CT head revealed, "no acute intracranial abnormality." An MRI brain was ordered, but she declined it. An EEG was requested, but our facility is currently unable to obtain EEGs. Levetiracetam was ordered, but she declined it. She was advised to follow-up with Dr. Torres for further treatment and management of her known seizure disorder. Of note, she was found to have microscopic hematuria. She was counseled that this has the potential to represent an underlying urologic malignancy. She was advised to follow-up with her PCP for further evaluation. She verbalized understanding and agreed to make this appointment. She was also noted to have a large ventral hernia. She was provided with a General Surgery referral to address this as an outpatient at her earliest convenience. This morning, she stated that she felt very well and requested to be discharged home. On 01/11/2023, she was seen on morning rounds and deemed medically stable for discharge. She was discharged with instructions to schedule follow-up appointments with her PCP, with Cardiology (Dr. Jaime), with Nephrology (Dr. Adkins), with Pulmonology (Dr. Hu), with Neurology (Dr. Torres), and with General Surgery (Dr. Allison). She was provided prescriptions for atorvastatin, doxazosin, cefdinir, amiodarone, carvedilol, doxycycline, apixaban, amlodipine, and enalapril. She was advised to schedule follow-up chest x-ray with her PCP in 2-3 weeks to ensure resolution of her pneumonia. She was given the opportunity to ask questions and reported no further questions. Furthermore, all questions were answered to the best of my ability. A copy of this discharge summary will be sent to the above providers to facilitate continuity of care. Today, I personally spent 40 minutes on her case, of which greater than 50% of the time was spent in patient education, counseling, and coordination of care as described above. - Physical Exam General: Alert, In no apparent distress, Oriented x3 HEENT: Atraumatic, Sclerae nonicteric Neck: JVD not distended Respiratory: Diminished, Clear to auscultation bilaterally without wheezes, rhonchi, or rales Cardiovascular: Regular rate/rhythm, No murmurs, Edema (trace BLE) Gastrointestinal: Normal bowel sounds, Soft, Non-distended, No tenderness Musculoskeletal: No clubbing Integumentary: No rashes, Other (alopecia with vitiligo on scalp) Neurological: Normal speech, Normal affect Vital Signs/Physical Exam: Temp Pulse Resp BP Pulse Ox 96.8 F 74 16 176/99 H 99 01/11/23 08:00 01/11/23 08:00 01/11/23 08:00 01/11/23 08:00 01/11/23 08:00 Laboratory Data at Discharge: WBC 9.40 thou/uL (4.3-10.9) 01/10/23 04:30 Hgb 8.6 g/dL (12.0-15.0) L 01/10/23 04:30 Hct 26.3 % (36.0-45.0) L 01/10/23 04:30 Plt Count 297 thou/uL (152-406) 01/10/23 04:30 PT 15.1 SECONDS (9.5-12.5) H 01/03/23 20:01 INR 1.37 01/03/23 20:01 APTT 26.6 SECONDS (24.3-36.9) 01/03/23 20:01 Sodium 137 mEq/L (136-145) 01/11/23 05:11 Potassium 4.5 mEq/L (3.5-5.1) 01/11/23 05:11 BUN 26 mg/dL (7-18) H 01/11/23 05:11 Creatinine 1.93 mg/dL (0.55-1.02) H 01/11/23 05:11 Glucose 102 mg/dL (74-106) 01/11/23 05:11 Magnesium 1.9 mg/dL (1.6-2.4) 01/10/23 04:30 Total Bilirubin 0.3 mg/dL (0.2-1.0) 01/06/23 10:13 AST 19 U/L (15-37) 01/03/23 20:01 ALT 13 U/L (13-56) 01/03/23 20:01 Alkaline Phosphatase 108 U/L (45-117) 01/03/23 20:01 Home Medications: Hydroxychloroquine [Plaquenil*] 200 mg PO BID 09/07/17 calcitrioL [Rocaltrol] 0.25 mcg PO Q48H 11/19/21 Alprazolam [Xanax] 1 tab PO BID PRN 01/04/23 Furosemide 1 tab PO DAILY 01/04/23 Gabapentin 2 tab PO BID 01/04/23 cloNIDine HCL [Catapres*] 0.3 mg PO TID 01/04/23 Amiodarone HCl [Cordarone*] 200 mg PO BID #60 tab 01/11/23 Amlodipine [Norvasc*] 10 mg PO DAILY #30 tab 01/11/23 Apixaban [Eliquis] 5 mg PO BID #60 tab 01/11/23 Atorvastatin Calcium 20 mg PO BEDTIME #30 tab 01/11/23 Cefdinir [Cefdinir*] 300 mg PO DAILY 7 Days #7 cap 01/11/23 Doxazosin [Cardura*] 4 mg PO BID #60 tab 01/11/23 Doxycycline Monohydrate 100 mg PO BID 7 Days #14 cap 01/11/23 Enalapril [Vasotec*] 5 mg PO BID #120 tab 01/11/23 carvediloL [Coreg] 12.5 mg PO BID #60 tab 01/11/23 New Medications: Atorvastatin Calcium 20 mg PO BEDTIME #30 tab Doxazosin [Cardura*] 4 mg PO BID #60 tab Cefdinir [Cefdinir*] 300 mg PO DAILY 7 Days #7 cap Amiodarone HCl [Cordarone*] 200 mg PO BID #60 tab carvediloL [Coreg] 12.5 mg PO BID #60 tab Doxycycline Monohydrate 100 mg PO BID 7 Days #14 cap Apixaban [Eliquis] 5 mg PO BID #60 tab Amlodipine [Norvasc*] 10 mg PO DAILY #30 tab Enalapril [Vasotec*] 5 mg PO BID #120 tab Physician Discharge Instructions: 1. Please call and schedule a follow-up appointment with your PCP in 3-5 days - Please have your PCP repeat a chest x-ray in 2-3 weeks to make sure your pneumonia has healed - There was a small amount of blood in your urine. This can sometimes be a sign of kidney/bladder cancer. Please follow-up with your PCP for further evaluation. 2. Please call and schedule a follow-up appointment with Nephrology (Dr. Adkins) in 3-5 days 3. Please call and schedule a follow-up appointment with Cardiology (Dr. Jaime) in 5-7 days 4. Please call and schedule a follow-up appointment with Neurology (Dr. Torres) in 5-7 days 5. Please call and schedule a follow-up appointment with General Surgery (Dr. Allison) in 5-7 days - Please discuss your abdominal hernia with him 6. Please call and schedule a follow-up appointment with Pulmonology (Dr. Hu) in 5-7 days Diet: Renal Activity: Ad jorge Followup: Alexx Adkins DO [ACTIVE - CAN ADMIT] - Jesse Jaime MD [ACTIVE - CAN ADMIT] - Juan Torres MD [ASSOCIATE-ACTIVE - CAN ADMIT] - George Allison MD [ACTIVE - CAN ADMIT] - Unknown,U [Primary Care Provider] - Harrison Hu MD [ACTIVE - CAN ADMIT] - Time spent managing pt's care (in minutes): 40
--- NOTE | 2023-01-11 16:10 | RAD REPORT ---
EXAM DESCRIPTION: RAD - Chest Single View - 01/11/2023 4:17 am CLINICAL HISTORY: Wheezing, dyspnea COMPARISON: Portable chest, 01/26/2022 FINDINGS: There is a right upper extremity PICC line with the tip in the mid SVC in good position. T he lungs are clear bilaterally. There is no focal infiltrate, pleural effusion or pneumothorax. The cardiomediastinal contours are stable with cardiomegaly. There are no acute bony or soft tissue abno rmalities. IMPRESSION: Right upper extremity PICC line is in good position. No pneumothorax. Stable cardiomegaly. No acute cardiopulmonary process. Electronically signed by: Gurdeep Castrejon MD 01/11/2023 5:33 AM CDT Due to temporary technical issues with the PACS/Fluency reporting system, reports are being signed by the in house radiologist without review as a courtesy to ensure prompt reporting. The interpreting r adiologist is fully responsible for the content of the report.
== END 2023-01-11 10:45 | disposition home or self-care (01) | DRG 871 ==
LOC: ER 19:07 → 2ND 01-04 00:57 → 3RD-ICU 01-06 11:34 → 4TH 01-10 18:25
PROVIDERS: ADMIT Internal Medicine; ATTEND Internal Medicine
PROC: 02HV33Z Insertion of Infusion Device into Superior Vena Cava, Percutaneous Approach (ICD-10-PCS; principal; 2023-01-08)
DX: A41.9 Sepsis, unspecified organism (principal); I21.A1 Myocardial infarction type 2; J18.9 Pneumonia, unspecified organism; N18.4 Chronic kidney disease, stage 4 (severe); N17.9 Acute kidney failure, unspecified; E87.20 Acidosis, unspecified; R04.2 Hemoptysis; I16.1 Hypertensive emergency; I82.622 Acute embolism and thrombosis of deep veins of left upper extremity; R65.20 Severe sepsis without septic shock; I12.9 Hypertensive chronic kidney disease with stage 1 through stage 4 chronic kidney disease, or unspecified chronic kidney disease; E11.22 Type 2 diabetes mellitus with diabetic chronic kidney disease; F15.10 Other stimulant abuse, uncomplicated; F14.10 Cocaine abuse, uncomplicated; F13.10 Sedative, hypnotic or anxiolytic abuse, uncomplicated; E78.5 Hyperlipidemia, unspecified; E83.42 Hypomagnesemia; E87.6 Hypokalemia; F32.A Depression, unspecified; K43.9 Ventral hernia without obstruction or gangrene; E88.09 Other disorders of plasma-protein metabolism, not elsewhere classified; M32.14 Glomerular disease in systemic lupus erythematosus; G40.909 Epilepsy, unspecified, not intractable, without status epilepticus; I48.0 Paroxysmal atrial fibrillation; I25.10 Atherosclerotic heart disease of native coronary artery without angina pectoris; R94.31 Abnormal electrocardiogram [ECG] [EKG]; R31.29 Other microscopic hematuria; Z88.5 Allergy status to narcotic agent; Z93.2 Ileostomy status; Z79.01 Long term (current) use of anticoagulants; Z91.013 Allergy to seafood; Z90.710 Acquired absence of both cervix and uterus; Z79.899 Other long term (current) drug therapy; W06.XXXA Fall from bed, initial encounter; Y93.9 Activity, unspecified; Y92.013 Bedroom of single-family (private) house as the place of occurrence of the external cause
CPT/HCPCS: 36415; 36569; 51702; 70450; 71045; 71250; 72125; 74176; 76770; 80048; 80076; 80202; 80307; 81001; 82247; 82248; 82550; 82947; 83605; 83735; 83880; 84132; 84145; 84443; 84484; 85025; 85610; 85730; 86140; 86850; 86900; 86901; 87040; 93005; 93306; 93971; 94640; 99285; G0480; J0282; J0360; J0692; J1170; J1644; J1650; J1940; J1953; J2405; J2543; J3010; J3475; J3480; J7030; J7050; J7060; J7613; J7644; P9047

== ENCOUNTER 2023-01-12 15:40 | Emergency (ER) | payer OTHER ==
--- OUTSIDE RECORDS SUMMARY | 2023-01-12 15:48 | XMS REPORT | Continuity of Care Document ---
:[address] [facility] t Address [address] [place] [address] Care Team Providers Name Role Phone Monico Espinoza DO Primary Care Physician [phone] .[facility] Attending Clinician Unavailable AKOSUA GRAF Attending Clinician Unavailable Akosua Graf MD Attending Clinician Naga Shepherd MD Attending Clinician Jeanna Shrestha Attending Clinician TONY GRAF Attending Clinician Unavailable Ligia Pedro MD Attending Clinician LIGIA PEDRO Attending Clinician Unavailable LIGIA PEDRO Attending Clinician Unavailable Doctor Unassigned, [place] Attending Clinician Unavailable ABEL LI Attending Clinician Unavailable ABEL LI Admitting Clinician Unavailable Payers Payer Name Policy Type Policy Number Effective Date Expiration Date Tess patel MEDICAID OF [place] [id number] 2014 00:00:00 [facility] [id number] 2017 DUAL COMPLETE 00:00:00 Problems Condition Condition [...] nephritis nephritis nce 30 Luke s 00:00: [facility] Abdominal Abdominal Disease Active 2017-08 [facility] [...] 3-20 it y of n n 00:00: [place] [facility] Colonic Colonic Disease Active Univers obstructio obstructio 3-19 it y of n n 00:00: [address] Branch Colostomy Colostomy Disease Active Met hodi in place in place 02-23 st 00:00: Hospita 00 l Seizure Seizure Disease Active Univers 9-21 ity of 00:00: [place] [facility] Obesity Obesity Disease Recurre Univer s (BMI (BMI nce 9-20 ity of 30-39.9) 30-39.9) 00:00: [place] [facility] Pulmonary Pulmonary Disease Active Uni vers edema edema 8-28 ity of 00:00: [place] [facility] Systemic Systemic Disease Recurre Univ ers lupus lupus nce 2-23 ity of erythemat[place] [facility] Depression Depression Disease Active U nivers , major , major 2-18 ity of 00:00: Medical Branch DAE (acute DAE (acute Disease [...] 00 Center Products s Shellfis Propensi Active 2017-[address] [facility] h [...] [place] INGREDI 05-13 ity of 00:00: [address] Morphine Propensi Active Palpitations Methodi ty to 05-13 st adverse 00:00: Hospita reaction 00 l s to drug Family History Family Member Diagnosis Comments Start Date Stop Date Source Natural mother Cancer [facility] Natural mother Hypertension [facility] Natural mother Uterine cancer Method [facility] Natural sister Diabetes [facility] Natural father Kidney disease [facility] Natural [facility] Social History Social Habit Start Date Stop Date Quantity Comments Source History SDOH [facility] Alcohol Std Drinks Medica l Center History SDOH [facility] Alcohol Binge Medical Tar[place] ter History SDOH [facility] Alcohol Comment Medical C enter Gender identity [facility] Sexual orientation Method ist Hospital Exposure to 2022 2022-07-[address] [facility]-CoV-2 (event) 00:00:00 09:52:00 [facility] History of Social 2019-09-12 2019-09-[address] function 00:00:00 00:00:00 Hospital Alcohol intake 2019-08-27 2019-08-27 Current [facility] 00:00:00 00:00:00 non-drinker of Hospital alcohol (finding) History SDOH 2018-07-28 2018-07-[address] [facility] Alcohol Frequency 00:00:00 00:00:00 [facility] Tobacco use and 2016-05-13 2016-05-13 Smokeless Universit y of exposure 00:00:00 00:00:00 tobacco non-user [facility] Sex Assigned At [birth year] [facility] 00:00:[facility] 00:[facility]:00 Hospital Smoking Status Start Date Stop Date Source Never smoked tobacco [facility] Medications Ordered Filled Start Stop Current Ordering [...] mouth ity of (LEXAPRO) 12:12: in the [place] 20 mg 20 morning. Medical tablet Branch [...] Fri Medica l NaCl 0.9% 03/27/21 at [facility] ch (NS) 50 mL 0, 50 piggyback mL FENTanyl PF 2020- No 100ug 100 mcg, [facility] (SUBLIMAZE 03-2730 Slow IV ity o f (PF)) 07:30: 06:31 Push, [place] injection 00 :00 ONCE, 1 Medical 100 mcg dose, Fri Branch 03/27/21 at 0230, Routine amoxicillin 2020- Yes [id number] 875mg Take 1 Univers 875 mg 5-20 [id number] tablet by ity of tablet 00:00: mouth 2 [place] 00 (two) Medical times Branch daily. amoxicillin 2020-0 Yes [id number] 875mg Take 1 Univers 875 mg 5-20 [id number] tablet by ity of tablet 00:00: mouth 2 [place] 00 (two) Medical times Branch daily. amoxicillin 2020- Yes [id number] 875mg Take 1 Univers 875 mg 5-20 [id number] tablet by ity of tablet 00:00: mouth 2 [place] 00 (two) Medical times Branch daily. neomycin-po 2020- No [id number] 3[drp] Place 3 [facility] lymyxin-hyd 5-20 05-28 [id number] Drops in it y of rocortisone 00:00: 04:59 right ear [place] 3.5-10,000- 00 :00 4 (four) Medi valentin [...] 16:02: mouth Hospita tablet 14 daily. l HYDROCODONE 2020-0 Yes Take by Met hodi [...] by mouth. Jose es MG tablet 08:16: [address] pantoprazol 2017-08 Yes 40mg QD Take [address] [facility] 2-04 by mouth [facility]ukes (PROTONIX) 08:16: daily. Medic al 40 MG 44 Center tablet doxazosin 2017-08 Yes 4mg Take [address] (CARDURA) 2 2-04 by mouth. Jose es MG tablet 08:16: [address] pantoprazol 2017-08 Yes 40mg QD Take [address] e 2-04 by mouth [facility]ukes (PROTONIX) 08:16: daily. Medic al 40 MG 44 Center tablet doxazosin 2017-08 Yes 4mg Take [address] (CARDURA) 2 2-04 by mouth. Jose es MG tablet 08:16: [address] pantoprazol 2017-08 Yes 40mg QD Take [address] e 2-04 by mouth [facility]ukes (PROTONIX) 08:16: daily. Medic al 40 MG 44 Center tablet doxazosin 2017-08 Yes 4mg Take [address] (CARDURA) 2 2-04 by mouth. Jose es MG tablet 08:16: [address] pantoprazol 2017-08 Yes 40mg QD Take [address] e 2-04 by mouth Lukes (PROTONIX) 08:16: daily. Medic al 40 MG 44 Center tablet doxazosin 2017-08 Yes 4mg Take [address] (CARDURA) 2 2-04 by mouth. Jose es MG tablet 08:16: [address] pantoprazol 2017-08 Yes 40mg QD Take [address] e 2-04 by mouth [facility]ukes (PROTONIX) 08:16: daily. Medic al 40 MG 44 Center tablet doxazosin 2017-08 Yes 4mg Take [address] (CARDURA) 2 2-04 by mouth. Jose es MG tablet 08:16: [address] pantoprazol 2017-08 Yes 40mg QD Take [address] e 2-04 by mouth [facility]ukes (PROTONIX) 08:16: daily. Medic al 40 MG 44 Center tablet zolpidem 2017-08 Yes 10mg QD Take [address] (AMBIEN) 10 1-25 by mouth Luke s mg tablet 00:00: nightly. [address] zolpidem 2017-08 Yes 10mg QD Take [address] (AMBIEN) 10 1-25 by mouth Luke s mg tablet 00:00: nightly. [address] zolpidem 2017-08 Yes 10mg QD Take [address] (AMBIEN) 10 1-25 by mouth Luke s mg tablet 00:00: nightly. [address] zolpidem 2017-08 Yes 10mg QD Take [address] (AMBIEN) 10 1-25 by mouth Luke s mg tablet 00:00: nightly. [address] zolpidem 2017-08 Yes 10mg QD Take [address] (AMBIEN) 10 1-25 by mouth Luke s mg tablet 00:00: nightly. [address] zolpidem 2017-08 Yes 10mg QD Take [address] (AMBIEN) 10 1-25 by mouth Luke s mg tablet 00:00: nightly. [address] ondansetron 2017-08 Yes DIS [address] (ZOFRAN-ODT 1-23 THE TONGUE Gilda kes ) 8 MG 00:00: BID Medical disintegrat 00 [place] ing tablet ondansetron 2017-08 Yes DIS [address] (ZOFRAN-ODT 1-23 THE TONGUE Gilda kes ) 8 MG 00:00: BID Medical disintegrat 00 [place] ing tablet ondansetron 2017-08 Yes DIS 1 [...] [facility]ukes 100 MG 00:00: Medical capsule 00 [place] [facility] 2017-08 Yes TK [address] [facility] roquine 0-10 D [facility] (PLAQUENIL) 00:00: Medica l 200 mg 00 Center tablet gabapentin 2017-08 Yes TK [address] [facility] (NEURONTIN) 0-10 HS PRN [facility] 100 MG 00:00: Medical capsule 00 [place] [facility]08 Yes TK [address] [facility] roquine 0-10 D [facility] (PLAQUENIL) 00:00: Medica l 200 mg 00 Center tablet gabapentin 2017-08 Yes TK [address] [facility] (NEURONTIN) 0-10 HS PRN [facility] 100 MG 00:00: [facility] Yes TK [facility] T PO C [...] [facility]ukes 100 MG 00:00: Medical capsule 00 [place] hydroxychlo 2017-08 Yes TK [address] [facility] roquine 0-10 D [facility] (PLAQUENIL) 00:00: Medica l 200 mg 00 Center tablet doxazosin Yes 4mg Take 4 mg Uni vers (CARDURA) 2 3-21 by mouth ity of mg tablet 20:00: daily. [place] [address] Medical Branch metoprolol Yes 100mg Take 100 [...] mouth ity of 10 mg 20:00: daily. [place] [address] Medical Branch doxazosin Yes 4mg Take 4 mg Uni vers (CARDURA) 4 3-21 by mouth ity of mg tablet 20:00: daily. [address] Branch zolpidem Yes 10mg Take 10 mg [...] mouth ity of mg tablet 20:00: daily. [place] [address] Medical Branch metoprolol 2018-0 Yes 100mg Take [...] mouth ity of 10 mg 20:00: daily. [place] [address] Medical Branch doxazosin 2018-0 Yes 4mg Take 4 mg Uni vers (CARDURA) 4 3-21 by mouth ity of mg tablet 20:00: daily. [place] [address] Medical Branch zolpidem 2018-0 Yes 10mg Take [...] mouth ity of mg tablet 20:00: daily. [place] [address] Medical Branch metoprolol 2018-0 Yes 100mg Take [...] mouth ity of mg tablet 20:00: daily. [place] [address] Medical Branch zolpidem 2018-0 Yes 10mg Take [...] mouth ity of mg tablet 20:00: daily. [place] [address] Medical Branch metoprolol 2018-0 Yes 100mg Take [...] mouth ity of mg tablet 20:00: daily. [place] [address] Medical Branch zolpidem 2018-0 Yes 10mg Take [...] mouth ity of mg tablet 20:00: daily. [place] [address] Medical Branch metoprolol 2018-0 Yes 100mg Take [...] mouth ity of 10 mg 20:00: daily. [place] tablet Medical Branch doxazosin 2018-0 Yes 4mg Take 4 mg Uni vers (CARDURA) 4 3-21 by mouth ity of mg tablet 20:00: daily. [place] [address] Medical Branch zolpidem 2018-0 Yes 10mg Take [...] mouth ity of mg tablet 15:00: daily. [place] [address] Medical Branch metoprolol 2018-0 Yes 100mg Take 100 Un [place] succinate 3-21 mg by ity of XL (TOPROL 15:00: mouth 2 [place] XL[place] 100 mg 52 (two) Medical 24 hr times Branch tablet daily. amLODIPine 2018-0 Yes 10mg Take 10 mg U nivers (NORVASC) 3-21 by mouth ity of 10 mg 15:00: daily. [place] tablet Medical Branch doxazosin 2018-0 Yes 4mg Take 4 mg Uni vers (CARDURA) 4 3-21 by mouth ity of mg tablet 15:00: daily. [place] [address] Medical Branch zolpidem 2018-0 Yes 10mg Take 10 mg Uni vers (AMBIEN) 10 3-21 by mouth ity of mg tablet 15:00: [place] Medical for Branch Insomnia. hydroxychlo 2018-0 Yes 200mg Take 200 U nivers roquine 3-21 mg by ity of (PLAQUENIL) 15:00: mouth [place] 200 mg 52 daily. Medical tablet Branch zolpidem 2017-0 Yes 10mg QD Take 10 [...] -acetaminop 9-24 tablet by ity of hen ([employer]) 00:00: mouth [place] 10-325 mg 00 every 6 Medical tablet (six) Branch hours as needed for Pain (scale 7-10). HYDROcodone 2015-0 Yes 1{tbl} Take 1 [place] -acetaminop 9-24 tablet by ity of hen ([employer]) 00:00: mouth [place] 10-325 mg 00 every 6 Medical tablet (six) Branch hours as needed for Pain (scale 7-10). HYDROcodone 2015-0 Yes 1{tbl} Take 1 [place] -acetaminop 9-24 tablet by ity of hen ([employer]) 00:00: mouth [place] 10-325 mg 00 every 6 Medical tablet (six) Branch hours as needed for Pain (scale 7-10). HYDROcodone 2015-0 Yes 1{tbl} Take 1 [place] -acetaminop 9-24 tablet by ity of hen ([employer]) 00:00: mouth [place] 10-325 mg 00 every 6 Medical tablet (six) Branch hours as needed for Pain (scale 7-10). HYDROcodone 2015-0 Yes 1{tbl} Take 1 [place] -acetaminop 9-24 tablet by ity of hen ([employer]) 00:00: mouth [place] 10-325 mg 00 every 6 Medical tablet (six) Branch hours as needed for Pain (scale 7-10). HYDROcodone 2015-0 Yes 1{tbl} Take 1 [place] -acetaminop 9-24 tablet by ity of hen ([employer]) 00:00: mouth [place] 10-325 mg 00 every 6 Medical tablet (six) Branch hours as needed for Pain (scale 7-10). hydralAZINE 2015-0 Yes 100mg Take 1 Uni [...] mg tablet 00:00: [facility] ZOGORDO ER Yes TK ONE C Uni vers 10 mg CR12 8-22 PO Q 12 H ity of 00:00: PRN. [facility] tiZANidine Yes TK 1 T PO Un [place] (ZANAFLEX) 8-22 QHS. ity of 2 mg tablet 00:00: [facility] ER Yes TK ONE C Uni vers 10 mg CR12 8-22 PO Q 12 H ity of 00:00: PRN. [facility] tiZANidine Yes TK 1 T PO Un [place] (ZANAFLEX) 8-22 QHS. ity of 2 mg tablet 00:00: [facility] ER Yes TK ONE C Uni vers 10 mg CR12 8-22 PO Q 12 H ity of 00:00: PRN. [facility] tiZANidine Yes TK 1 T PO Un [place] (ZANAFLEX) 8-22 QHS. ity of 2 mg tablet 00:00: [facility] ER Yes TK ONE C Uni vers 10 mg CR12 8-22 PO Q 12 H ity of 00:00: PRN. Medical Branch tiZANidine Yes TK 1 T PO Un [place] (ZANAFLEX) 8-22 QHS. ity of 2 mg tablet 00:00: [facility] ER Yes TK ONE C Uni vers 10 mg CR12 8-22 PO Q 12 H ity of 00:00: PRN. [facility] tiZANidine Yes TK 1 T PO Un [place] (ZANAFLEX) 8-22 QHS. ity of 2 mg tablet 00:00: [facility] ZOGORDO ER Yes TK ONE C Uni vers 10 mg CR12 8-22 PO Q 12 H ity of 00:00: PRN. Medical Branch furosemide 0 Yes TK 1 T PO Un [place]ah (LASIX) 80 6-16 BID. ity of mg tablet 00:00: Medical Branch furosemide 0 Yes TK 1 T PO Un [place] (LASIX) 80 6-16 BID. ity of mg tablet 00:00: Medical Branch furosemide 0 Yes TK 1 T PO Un [place] (LASIX) 80 6-16 BID. ity of mg tablet 00:00: Medical Branch furosemide Yes TK 1 T PO Un [place] (LASIX) 80 6-16 BID. ity of mg tablet 00:00: Medical Branch furosemide Yes TK 1 T PO Un [place] (LASIX) 80 6-16 BID. ity of mg tablet 00:00: [place] [facility] furosemide Yes TK 1 T PO Un [place] (LASIX) 80 6-16 BID. ity of mg tablet 00:00: [place] [facility] ONETOUCH 0 Yes FPD Univers ULTRA2 Kit 6-13 ity of 00:00: [place] [facility] ONETOUCH Yes FPD Univers ULTRA2 Kit 6-13 ity of 00:00: [place] [facility] ONETOUCH 0 Yes FPD Univers ULTRA2 Kit 6-13 ity of 00:00: [place] [facility] ONETOUCH 0 Yes FPD Univers ULTRA2 Kit 6-13 ity of 00:00: [place] [facility] ONETOUCH 0 Yes FPD Univers ULTRA2 Kit 6-13 ity of 00:00: Medical Branch ONETOUCH 0 Yes FPD Univers ULTRA2 Kit 6-13 ity of 00:00: [place] [facility] ONE TOUCH 0 [...] 00 (two) Center tablet times daily. mycophenola 2015-0 Yes 1000mg Q.5D Take 1,[address] [facility] 4-07 mg by [facility]ukes (CELLCEPT) 00:00: mouth 2 Medi valentin 500 mg 00 (two) Center tablet times daily. mycophenola 2015-0 Yes 1000mg Q.5D Take 1,[address] [facility] 4-07 mg by [facility]ukes (CELLCEPT) 00:00: mouth 2 Medi valentin 500 mg 00 (two) Center tablet times daily. mycophenola 2015-0 Yes 1000mg Q.5D Take 1,[address] [facility] 4-07 mg by Lukes (CELLCEPT) 00:00: mouth 2 Medi valentin 500 mg 00 (two) Center tablet times daily. mycophenola 2015-0 Yes 1000mg Q.5D Take 1,[address] te 4-07 mg by Lukes (CELLCEPT) 00:00: mouth 2 Medi valentin 500 mg 00 (two) Center tablet times daily. mycophenola 2015-0 Yes 1000mg Q.5D Take 1,[address] [facility] 4-07 mg by [facility]ukes (CELLCEPT) 00:00: mouth 2 Medi valentin 500 mg 00 (two) Center tablet times daily. metoprolol 2015-0 Yes 100mg Take 100 Un [place] tartrate [...] 2-21 ity of strip 00:00: [place] 00 [facility] ONETOUCH 0 Yes Univers ULTRA TEST 2-21 ity of strip 00:00: [place] 00 Medical Branch ONETOUCH 0 Yes Univers ULTRA TEST 2-21 ity of strip 00:00: [place] 00 Medical Branch ONETOUCH 0 Yes Univers ULTRA TEST 2-21 ity of strip 00:00: [place] 00 Medical Branch ONETOUCH 0 Yes Univers ULTRA TEST 2-21 ity of strip 00:00: [place] 00 [facility] amLODIPine 2014-08 Yes 10mg Take [address] (NORVASC) 2-11 by mouth. [facility] 10 MG 00:00: Medical tablet 00 [place] amLODIPine 2014-08 Yes 10mg Take [address] (NORVASC) 2-11 by mouth. [facility] 10 MG 00:00: Medical tablet 00 [place] amLODIPine 2014-08 Yes 10mg Take [address] (NORVASC) 2-11 by mouth. [facility] 10 MG 00:00: Medical tablet 00 [place] amLODIPine 2014-08 Yes 10mg Take [address] (NORVASC) 2-11 by mouth. [facility] 10 MG 00:00: Medical tablet 00 [place] amLODIPine 2014-08 Yes 10mg Take [address] (NORVASC) 2-11 by mouth. [facility] 10 MG 00:00: Medical tablet 00 [place] amLODIPine 2014-08 Yes 10mg Take [address] (NORVASC) 2-11 by mouth. [facility] 10 MG 00:00: Medical tablet 00 [place] cloNIDine 2014-08 Yes .3mg Q.[id number] Take 0.[address] HCl 1-11 [id number] mg by [facility]ukes (CATAPRES) 00:00: 3D mouth 3 Medi valentin 0.3 MG 00 (three) Center tablet times daily . furosemide 2014-08 Yes 80mg Take [address] (LASIX) 40 1-11 by mouth . Jose es MG tablet 00:00: Medical 00 [place] hydrALAZINE 2014-08 Yes 50mg Q.[id number] Take [address] (APRESOLINE 1-11 [id number] by mouth 3 [facility]ukes ) 50 MG 00:00: 3D (three) Medical tablet 00 times Center daily. metoprolol 2014-08 Yes 100mg Q.5D Take [address] (LOPRESSOR) 1-11 mg by [facility]ukes 100 MG 00:00: mouth 2 Medical tablet 00 (two) Center times daily. cloNIDine 2014-08 Yes .3mg Q.[id number] Take 0.[address] HCl 1-11 [id number] mg by [facility]ukes (CATAPRES) 00:00: 3D mouth 3 Medi valentin 0.3 MG 00 (three) Center tablet times daily . furosemide 2014-08 Yes 80mg Take [address] (LASIX) 40 1-11 by mouth . Jose es MG tablet 00:00[facility] Yes [facility] Q.[id number] Take [address] (APRESOLINE 1-11 [id number] by mouth 3 [facility] ) 50 MG 00:00: 3D (three) Medical tablet 00 times Center daily. metoprolol 2014-08 Yes 100mg Q.5D Take [address] (LOPRESSOR) 1-11 mg by [facility]ukes 100 MG 00:00: mouth 2 Medical tablet 00 (two) Center times daily. cloNIDine 2014-08 Yes .3mg Q.[id number] Take 0.[address] HCl 1-11 [id number] mg by [facility]ukes (CATAPRES) 00:00: 3D mouth 3 Medi valentin 0.3 MG 00 (three) Center tablet times daily . furosemide 2014-08 Yes 80mg Take [address] (LASIX) 40 1-11 by mouth . Jose es MG tablet 00:00: Medical [address] [facility] [facility] Yes 50mg Q.[id number] Take [address] (APRESOLINE 1-11 [id number] by mouth 3 [facility] ) 50 MG 00:00: 3D (three) Medical tablet 00 times Center daily. metoprolol 2014-08 Yes 100mg Q.5D Take [address] (LOPRESSOR) 1-11 mg by [facility] 100 MG 00:00: mouth 2 Medical tablet 00 (two) Center times daily. cloNIDine 2014-08 Yes .3mg Q.[id number] Take 0.[address] HCl 1-11 [id number] mg by [facility] (CATAPRES) 00:00: 3D mouth 3 Medi valentin 0.3 MG 00 (three) Center tablet times daily . furosemide 2014-08 Yes 80mg Take [address] (LASIX) 40 1-11 by mouth . Jose es MG tablet 00:00: Medical 00 [place] hydrALAZINE 2014-08 Yes 50mg Q.[id number] Take [address] (APRESOLINE 1-11 [id number] by mouth 3 [facility] ) 50 MG 00:00: 3D (three) Medical tablet 00 times Center daily. metoprolol 2014-08 Yes 100mg Q.5D Take [address] (LOPRESSOR) 1-11 mg by [facility]ukes 100 MG 00:00: mouth 2 Medical tablet 00 (two) Center times daily. cloNIDine 2014-08 Yes .3mg Q.[id number] Take 0.[address] HCl 1-11 [id number] mg by [facility]ukes (CATAPRES) 00:00: 3D mouth 3 Medi valentin 0.3 MG 00 (three) Center tablet times daily . furosemide 2014-08 Yes 80mg Take [address] (LASIX) 40 1-11 by mouth . Jose es MG tablet 00:00: Medical 00 [place] hydrALAZINE 2014-08 Yes 50mg Q.[id number] Take [address] (APRESOLINE 1-11 [id number] by mouth 3 [facility] ) 50 MG 00:00: 3D (three) Medical tablet 00 times Center daily. metoprolol 2014-08 Yes 100mg Q.5D Take [address] (LOPRESSOR) 1-11 mg by [facility] 100 MG 00:00: mouth 2 Medical tablet 00 (two) Center times daily. cloNIDine 2014-08 Yes .3mg Q.[id number] Take 0.[address] HCl 1-11 [id number] mg by [facility]ukes (CATAPRES) 00:00: 3D mouth 3 Medi valentin 0.3 MG 00 (three) Center tablet times daily . furosemide 2014-08 Yes 80mg Take [address] (LASIX) 40 1-11 by mouth . Jose es MG tablet 00:00: Medical 00 Center hydrALAZINE 2014-08 Yes 50mg Q.[id number] Take [address] (APRESOLINE 1-11 [id number] by mouth 3 [facility] ) 50 MG 00:00: 3D (three) Medical tablet 00 times Center daily. metoprolol 2014-08 Yes 100mg Q.5D Take [address] (LOPRESSOR) 1-11 mg by [facility] 100 MG 00:00: mouth 2 Medical tablet 00 (two) Center times daily. Immunizations Ordered Filled Immunization Date Status Comments [facility] e Immunization Name Name SARS-COV-2 COVID-19 2020-11-15 Completed Unive rsity of PFIZER VACCINE 00:00:00 [facility] SARS-COV-2 COVID-19 2020-11-15 Completed Unive rsity of PFIZER VACCINE 00:00:00 [facility] SARS-COV-2 COVID-19 2020-11-15 Completed Unive rsity of PFIZER VACCINE 00:00:00 [facility] SARS-COV-2 COVID-19 2020-10-25 Completed Unive rsity of PFIZER VACCINE 00:00:00 [facility] SARS-COV-2 COVID-19 2020-10-25 Completed Unive rsity of PFIZER VACCINE 00:00:00 [facility] SARS-COV-2 COVID-19 2020-10-25 Completed Unive rsity of PFIZER VACCINE 00:00:00 [facility] SARS-COV-2 COVID-19 2020-10-25 Completed Unive rsity of PFIZER VACCINE 00:00:00 [facility] SARS-COV-2 COVID-19 2020-10-25 Completed Unive rsity of PFIZER VACCINE 00:00:00 [facility] SARS-COV-2 COVID-19 2020-10-25 Completed Unive rsity of PFIZER VACCINE 00:00:00 [facility] Vital Signs Vital Name Observation Time Observation Value Comments Source Systolic blood 2022-07-28 18:00:00 185 mm[Hg] Univer sity of pressure [place] [facility] Diastolic blood 2022-07-28 18:00:00 113 mm[Hg] Unive rsity of pressure [place] [facility] Heart rate 2022-07-28 17:47:00 91 /min [facility]i ty of [place] [facility] Respiratory rate 2022-07-28 17:47:00 20 /min Univ ersity of [place] [facility] Oxygen saturation in 2022-07-28 17:47:00 99 /min University of Arterial blood by [facility] Pulse oximetry Branch Body temperature 2022-07-28 15:54:00 36.67 Chhaya Univ ersity of [place] [facility] Body height 2022-07-28 15:54:00 157.5 cm [facility] [place] [facility] Body weight 2022-07-28 15:54:00 83.462 kg [facility] [place] [facility] BMI 2022-07-28 15:54:00 33.65 kg/m2 [facility] [place] [facility] Systolic blood 2021-03-27 08:00:00 182 mm[Hg] Univer sity of pressure [place] [facility] Diastolic blood 2021-03-27 08:00:00 101 mm[Hg] Unive rsity of pressure [place] [facility] Heart rate 2021-03-27 08:00:00 72 /min [facility] [place] [facility] Respiratory rate 2021-03-27 08:00:00 10 /min Univ ersity of [place] [facility] Oxygen saturation in 2021-03-27 08:00:00 100 /min University of Arterial blood by [facility] Pulse oximetry Branch Body temperature 2021-03-27 04:49:00 37.28 Chhaya Univ ersity of [place] [facility] Body height 2021-03-27 04:49:00 157.5 cm [facility] [place] [facility] Body weight 2021-03-27 04:49:00 83.462 kg [facility] [place] [facility] BMI 2021-03-27 04:49:00 33.65 kg/m2 [facility] [place] [facility] Systolic blood 2021-01-15 15:01:00 140 mm[Hg] Univer sity of pressure [place] [facility] Diastolic blood 2021-01-15 15:01:00 84 mm[Hg] Unive rsity of pressure [place] [facility] Heart rate 2021-01-15 15:01:00 76 /min [facility] [place] [facility] Body temperature 2021-01-15 15:01:00 36.28 Chhaya Univ ersity of [place] [facility] Respiratory rate 2021-01-15 15:01:00 18 /min Univ ersity of [place] [facility] Body height 2021-01-15 15:01:00 157.5 cm [facility] [place] [facility] Body weight 2021-01-15 15:01:00 90.719 kg [facility] [place] [facility] BMI 2021-01-15 15:01:00 36.58 kg/m2 [facility] [place] [facility] Oxygen saturation in 2021-01-15 15:01:00 99 /min University of Arterial blood by [facility] Pulse oximetry Branch Systolic blood 2020-11-12 19:02:00 155 mm[Hg] Univer sity of pressure [place] [facility] Diastolic blood 2020-11-12 19:02:00 95 mm[Hg] Unive rsity of pressure [place] [facility] Heart rate 2020-11-12 19:01:00 79 /min [facility] [place] [facility] Respiratory rate 2020-11-12 19:01:00 19 /min Univ ersity of [place] [facility] Branch Body height 2020-11-12 19:01:00 167.6 cm [facility] Body weight 2020-11-12 19:01:00 86.002 kg [facility] BMI 2020-11-12 19:01:00 30.60 kg/m2 [facility] Systolic blood 2020-11-12 19:02:00 155 mm[Hg] [facility] Diastolic blood 2020-11-12 19:02:00 95 mm[Hg] [facility] Heart rate 2020-11-12 19:01:00 79 /min [facility] Respiratory rate 2020-11-12 19:01:00 19 /min [facility] Body height 2020-11-12 19:01:00 167.6 cm [facility] Body weight 2020-11-12 19:01:00 86.002 kg [facility] BMI 2020-11-12 19:01:00 30.60 kg/m2 [facility] Procedures Procedure Date / Time Performed Performing Clinician Laurel e EKG-12 LEAD 2022-07-28 16:42:07 Akosua Graf [facility] COMP. METABOLIC PANEL 2022-07-28 16:25:00 Akosua Graf [id number] [place] CBC WITH DIFF 2022-07-28 16:25:00 Akosua Graf [facility] CONSENT/REFUSAL FOR 2022-07-28 15:49:58 Doctor Unassigned, No Un iversity [facility] DIAGNOSIS AND Name [facility] TREATMENT NOTICE OF PRIVACY 2021-03-27 04:39:35 Doctor Unassigned, No [facility] CONSENT/REFUSAL FOR 2021-03-27 04:37:48 Doctor Unassigned, No [facility] [place] DIAGNOS[facility] AND Name [facility] TREATMENT CONSENT/REFUSAL FOR 2021-01-15 14:58:04 Doctor [facility]igned, [facility] TREATMENT ASSIGNMENT OF BENEFITS 2020-11-12 18:39:16 Doctor Unassigned, No [facility] Plan of Care Planned Activity Planned Date Details Comments Source Future Scheduled 2022-12-03 COVID-19 VACCINE (#1) [facility] Test 20:05:48 [code = COVID-19 VACCINE (#1)] Future Scheduled 2022-12-03 Screening for [facility] Test 20:05:48 malignant neoplasm of cervix (procedure) [code = 597226922] Future Scheduled 2022-12-03 BREAST CANCER [facility] Test 20:05:48 SCREENING [code = BREAST CANCER SCREENING] Future Scheduled 2022-12-03 COLONOSCOPY SCREENING [facility] Test 20:05:48 [code = COLONOSCOPY SCREENING] Future Scheduled 2022-12-03 SHINGLES VACCINES (1 Met [facility] Test 20:05:48 of 2) [code = SHINGLES VACCINES (1 of 2)] Future Scheduled 2022-12-03 INFLUENZA VACCINE Method [facility] Test 20:05:48 [code = INFLUENZA VACCINE] Future Scheduled 2022-12-03 COVID-19 VACCINE (#1) Me [facility] Test 20:05:48 [code = COVID-19 VACCINE (#1)] Future Scheduled 2022-12-03 Screening for [facility] Test 20:05:48 malignant neoplasm of cervix (procedure) [code = 062734755] Future Scheduled 2022-12-03 BREAST CANCER [facility] Test 20:05:48 SCREENING [code = BREAST CANCER SCREENING] Future Scheduled 2022-12-03 COLONOSCOPY SCREENING [facility] Test 20:05:48 [code = COLONOSCOPY SCREENING] Future Scheduled 2022-12-03 SHINGLES VACCINES (1 Met [facility] Test 20:05:48 of 2) [code = SHINGLES VACCINES (1 of 2)] Future Scheduled 2022-12-03 INFLUENZA VACCINE Method [facility] Test 20:05:48 [code = INFLUENZA VACCINE] Future Scheduled 2022-07-03 DIABETES: RETINAL EYE [facility] Test 00:15:46 EXAM [code = DIABETES: RETINAL EYE EXAM] Future Scheduled 2022-07-03 DIABETIC FOOT EXAM [facility] Test 00:15:46 [code = DIABETIC FOOT EXAM] Future Scheduled 2022-07-03 Hepatitis C screening [facility] Test 00:15:46 (procedure) [code = 905224150] Future Scheduled 2022-07-03 SHINGLES VACCINES (1 Met [facility] Test 00:15:46 of 2) [code = SHINGLES VACCINES (1 of 2)] Future Scheduled 2022-07-03 Screening for [facility] Test 00:15:46 malignant neoplasm of cervix (procedure) [code = 688282542] Future Scheduled 2022-07-03 BREAST CANCER [facility] Test 00:15:46 SCREENING [code = BREAST CANCER SCREENING] Future Scheduled 2022-07-03 COLONOSCOPY SCREENING [facility] Test 00:15:46 [code = COLONOSCOPY SCREENING] Future Scheduled 2022-07-03 INFLUENZA VACCINE Method [facility] Test 00:15:46 [code = INFLUENZA VACCINE] Future Scheduled 2022-07-03 HEPATITIS B VACCINES Met [facility] Test 00:15:46 (1 of 3 - 3-dose series) [code = HEPATITIS B VACCINES (1 of 3 - 3-dose series)] Future Scheduled 2022-07-03 COVID-19 VACCINE (#1) [facility] Test 00:15:46 [code = COVID-19 VACCINE (#1)] Future Scheduled 2022-07-03 Pneumococcal Vaccine: [facility] Test 00:15:46 Pediatrics (0 to 5 Years) and At-Risk Patients (6 to 64 Years) (1 - PCV) [code = Pneumococcal Vaccine: Pediatrics (0 to 5 Years) and At-Risk Patients (6 to 64 Years) (1 - PCV)] Future Scheduled 2022-07-03 DIABETES: RETINAL EYE [facility] Test 00:15:46 EXAM [code = DIABETES: RETINAL EYE EXAM] Future Scheduled 2022-07-03 DIABETIC FOOT EXAM [facility] Test 00:15:46 [code = DIABETIC FOOT EXAM] Future Scheduled 2022-07-03 Hepatitis C screening [facility] Test 00:15:46 (procedure) [code = 118941883] Future Scheduled 2022-07-03 SHINGLES VACCINES (1 Met [facility] Test 00:15:46 of 2) [code = SHINGLES VACCINES (1 of 2)] Future Scheduled 2022-07-03 Screening for [facility] Test 00:15:46 malignant neoplasm of cervix (procedure) [code = 995176407] Future Scheduled 2022-07-03 BREAST CANCER [facility] Test 00:15:46 SCREENING [code = BREAST CANCER SCREENING] Future Scheduled 2022-07-03 COLONOSCOPY SCREENING [facility] Test 00:15:46 [code = COLONOSCOPY SCREENING] Future Scheduled 2022-07-03 INFLUENZA VACCINE Method [facility] Test 00:15:46 [code = INFLUENZA VACCINE] Future Scheduled 2022-07-03 HEPATITIS B VACCINES Met [facility] Test 00:15:46 (1 of 3 - 3-dose series) [code = HEPATITIS B VACCINES (1 of 3 - 3-dose series)] Future Scheduled 2022-07-03 COVID-19 VACCINE (#1) [facility] Test 00:15:46 [code = COVID-19 VACCINE (#1)] Future Scheduled 2022-07-03 Pneumococcal Vaccine: [facility] Test 00:15:46 Pediatrics (0 to 5 Years) and At-Risk Patients (6 to 64 Years) (1 - PCV) [code = Pneumococcal Vaccine: Pediatrics (0 to 5 Years) and At-Risk Patients (6 to 64 Years) (1 - PCV)] Future Scheduled 2021-04-[address] [...] 00:00:00 measurement Medical Center (procedure) [code = 50371925] Future Scheduled 2019-01-[address] [facility] 00[facility] measurement Medical [facility] (procedure) [code = 11071705] Future Scheduled 2018-08-[address] [...] Test 00:00:00 (procedure) [code = Medical Center 47735728] Future Scheduled [address] [facility] Test 00:00:00 (procedure) [code = Medical Center 84192523] Future Scheduled 2014-06-[address] [...] Jose es Test 00:00:00 malignant [facility]oplasm [facility] cervix [facility]procedure) [code = 473834721] Future Scheduled [address] [facility] Test 00:00:00 malignant neoplasm of Medica [facility] Center cervix (procedure) [code = 067961134] Future Scheduled 1989 DTAP/TDAP/TD VACCINES CH I [...] 00:00:00 examination Medical Center (regime/therapy) [code = 400608924] Future Scheduled 1980 Urine screening for [facility] Test 00:00:00 protein (procedure) Medical Center [code = 873624299] Future Scheduled 1980 DIABETIC EYE EXAM [facility] Test 00:00:00 [code = DIABETIC EYE Medical Center EXAM] Future Scheduled [address] Test 00:00:00 examination Medical Center (regime/therapy) [code = 399487947] Future Scheduled 1980 Urine screening for [facility] Test 00:00:00 protein (procedure) Medical Center [code = 795590628] Future Scheduled [address] Test 00:00:00 malignant [facility] breast (procedure) [code = 932780131] Future Scheduled [address] Test 00:00:00 [facility] colon (procedure) [code = 382163943] Future Scheduled [address] Test 00:00:00 [facility] breast (procedure) [code = 976909685] Future Scheduled [address] [facility] Test 00:00:00 malignant [facility] colon (procedure) [code = 627422292] Future Scheduled DIABETES: RETINAL EYE [facility] EXAM [code = DIABETES: RETINAL EYE EXAM] Future Scheduled DIABETIC FOOT EXAM [facility] Test [code = DIABETIC FOOT EXAM] Future Scheduled COVID-19 VACCINE (1) [facility] [code = COVID-19 VACCINE (1)] Future Scheduled Hepatitis C screening [facility] Test (procedure) [code = 645807817] Future Scheduled Screening for [facility] Test malignant neoplasm of cervix (procedure) [code = 021651033] Future Scheduled BREAST CANCER [facility] Test SCREENING [code = BREAST CANCER [...] Type Clinicians Facility Department ID 2022-05-26 Outpatient .mateo [facility] [id number] [facility] 15:31:14 e [id number] [facility] 2021-06-29 Emergency [facility] [id number] Univers 11:53:58 ity of [facility] 2021-06-28 Emergency [facility] [id number] Univers 20:14:34 ity of [facility] 2022-07-28 2022-07-28 Emergency Royer HOMAR [facility] ERT [id number] Univers 09:58:00 12:12:00 AKOSUA ity of [facility] 2022-07-28 2022-07-28 Emergency [email or web address] [id number] Univers 09:58:00 12:12:00 Akosua PAINTER [id number] ity [place] [facility] [place] [id number] [address] 2021-03-26 2021-03-27 [facility] [id number] Univers 23:56:00 03:30:00 Naga Coronaton [id number] [place] [id number] [address] 2021-01-15 2021-01-15 Emergency [email or web address] [id number] Univers 10:03:00 11:43:00 Jeanna Painter [id number] i [place] [phone] [address] 2020-12-11 2020-12-11 Outpatient Sea GRAF [facility] [id number] Univers 10:00:00 10:00:00 TONY ity of [facility] 2020-11-15 2020-11-15 Outpatient [facility] [id number] Univers 13:05:00 13:05:00 ity of [facility] 2020-11-12 2020-11-12 Office [email or web address] [id number] Univers 13:40:03 14:10:03 Visit Ligia Painter [id number] [place] [phone] [address] 2020-11-12 2020-11-12 Office Zion [facility] [id number] 13:40:03 14:10:03 Visit Ligia Painter [id number] Jose [place] 4.2.7.2.686 Professio [phone] nal 085 [facility] 2020-11-12 2020-11-12 Outpatient R LIGIA PEDRO [facility] [id number] Univers 14:00:00 14:00:00 LIGIA PEDRO ity of [facility] 2020-11-12 2020-11-12 Orders Doctor GRACY [id number] Univers 00:00:00 00:00:00 Only Unassigned, KATIE [id number] ity of [place] [facility] 4.2.7.2.686 Juan C as [phone] [address] 2020-10-25 2020-10-25 Outpatient [facility] [id number] Univers 12:45:00 12:45:00 ity of [facility] Results Test Description Test Time Test Comments Results Result Comments Source COMP. METABOLIC PANEL ([id number]) 2022-07-28 16:47:59 Test Item Value Reference Range Interpretation Comme nts NA (test code = 1510042918) 140 mmol/L 135-145 K (test code = 5828585584) 4.4 mmol/L 3.5-5.0 CL (test code = 7537264340) 110 mmol/L 98-108 H CO2 TOTAL (test code = 1930479286) 20 mmol/L 23-31 L AGAP (test code = 8388740835) 2-16 BUN (test code = 2151568567) 26 mg/dL 7-23 H GLUCOSE (test code = 4343679501) 131 mg/dL 70-110 H CREATININE (test code = 2.26 mg/dL 0.50-1.04 H 4531372583) TOTAL BILI (test code = 0.4 mg/dL 0.1-1.6 8313292807) CALCIUM (test code = 3863814255) 8.5 mg/dL 8.6-10.6 L T PROTEIN (test code = 4783390304) 6.9 g/dL 6.3-8.2 ALBUMIN (test code = 1505632861) 3.8 g/dL 3.5-5.0 ALK PHOS (test code = 6788049174) 170 U/L 34-122 H ALTv (test code = 1742-6) 20 U/L 5-35 AST(SGOT) (test code = 4085872046) 27 U/L 13-40 eGFR (test code = 4635971530) mL/min/1.73m2 GARY (test code = GARY) Association [...] tests). Lab Interpretation (test code = Abnormal 16147-8) [facility] WITH [id number] 16:39:19 Test Item Value Reference Range Interpretation Comments WBC (test code = See_Comment [Automated 4590-2) message] The sy stem which generated this result transmitted reference range : 4.30 - 11.10 10*3/?L. The reference range was not used to interpret this result as normal/abnormal . RBC (test code = See_Comment [Automated 789-8) message] The sy stem which generated this [...] RDW-SD (test code = 44.4 fL 39.0-49.9 65290-9) RDW-CV (test code = 14.2 % 12.0-15.5 788-0) PLT (test code = See_Comment [Automated 777-3) message] The sy stem which generated this result transmitted reference range : 166 - 358 10*3/ ?L. The reference r jp was not used to interpret this result as normal/abnormal . MPV (test code = 9.0 fL 9.5-12.9 L 97617-3) NRBC/100 WBC (test See_Comment [Automat ed code = 6997136038) message] The system which generated this result transmitted reference range : 0.0 - 10.0 /100 WBCs. The refer ence range was not u sed to interpret th is result as normal/abnormal . NRBC x10^3 (test code See_Comment [Auto mated = 8462682873) message] The s ystem which generated this result transmitted reference range : 10*3/?L. The reference range was not used to interpret this result as normal/abnormal . GRAN MAT (NEUT) % 53.4 % (test code = 770-8) IMM GRAN % (test code 0.30 % = 7122794907) LYMPH % (test code = 28.0 % 736-9) MONO % (test code = 12.7 % 5905-5) EOS % (test code = 4.7 % 713-8) BASO % (test code = 0.9 % 706-2) GRAN MAT x10^3(ANC) 3.76 10*3/uL 1.88-7.09 (test code = 0230225910) IMM GRAN x10^3 (test 0.00-0.06 code = 1960640544) LYMPH x10^3 (test code 1.97 10*3/uL 1.32-3.29 = 731-0) MONO x10^3 (test code 0.89 10*3/uL 0.33-0.92 = 742-7) EOS x10^3 (test code = 0.33 10*3/uL 0.03-0.39 711-2) BASO x10^3 (test code 0.06 10*3/uL 0.01-0.07 = 704-7) Lab Interpretation Abnormal (test code = 39451-2) [facility] [id number] 17:01:00 Test Item Value Reference Range Interpretation Comments CULTURE (BEAKER) (test No growth in 5 days code = 1095) LUPUS ANTICOAGULANT SCREEN WITH REFLEX TO [id number] 16:08:00 Test Item Value Reference Range Interpretation Comments DRVV SCREEN RATIO 1.55 <1.20 H (BEAKER) (test code = 2707) DRVV CONFIRM RATIO 0.93 (test code = 2709) DRVV NORMALIZED RATIO 1.67 <1.20 H (test code = 2710) DRVV INTERPRETATION Positive screen for (BEAKER) (test code = Lupus Anticoagulant 2636) with hexagonal phospholipid confirmation. Suggest repeat testing in 12 weeks and when patient not receiving anticoagulant therapy. PROTIME (BEAKER) (test 15.0 seconds 11.7-14.7 H code = 759) INR (BEAKER) (test code 1.2 <=5.9 = 370) PARTIAL THROMBOPLASTIN 36.1 seconds 22.5-36.0 H TIME (BEAKER) (test code = 760) PTT-LA (BEAKER) (test 45.2 32.0-41.8 H code = 6086590535) [id number] Cindy Chavira MD (BEAKER) (test code = (electronic signature) 9550) HEXAGONAL [id number] 14:08:00 Test Item Value Reference Range Interpretation Comments HEXAGONAL PHOSPHOLIPID (BEAKER) Positive (test code = 1790) BLOOD [id number] 10:01:00 Test Item Value Reference Range Interpretation Comments CULTURE (BEAKER) (test No growth in 5 days code = 1095) DOUBLE-STRANDED DNA (DSDNA) [id number] 05:52:00 Test Item Value Reference Range Interpretation Comments ANTI-DNA DS (BEAKER) (test code = Negative 1055) CARDIOLIPIN ANTIBODIES, IGG AND [id number] 15:01:00 Test Item Value Reference Range Interpretation Comments ANTICARDIOLIPIN IGG ANTIBODY (BEAKER) < GPL <20.0 (test code = 712) ANTICARDIOLIPIN IGM ANTIBODY (BEAKER) 2.1 MPL <20.0 (test code = 713) Anticardiolipin IgG Result Interpretation: <20.0 GPL Normal>/= 20.0 GPL PositiveAnticardiolipin IgM Result Interpretation: <20.0 MPL Normal>/= 20.0 MPL PositiveCALCIUM, [id number] 05:12:00 Test Item Value Reference Range Interpretation Comments CALCIUM IONIZED (BEAKER) (test 1.01 mmol/L 1.12-1.27 L code = 698) PH, BLOOD ([facility]) (test code = 7.45 1810) POCT-GLUCOSE [id number] 21:30:00 Test Item Value Reference Range Interpretation Comments POC-GLUCOSE METER 116 mg/dL 70-110 H TESTED AT [place] [address] ([facility]) (test code = [place] 1538) [address] POCT-GLUCOSE [id number] 17:32:00 Test Item Value Reference Range Interpretation Comments POC-GLUCOSE METER 125 mg/dL 70-110 H TESTED AT [place] [address] ([facility]) (test code = [place] 1538) [address] POCT-GLUCOSE [id number] 11:28:00 Test Item Value Reference Range Interpretation Comments POC-GLUCOSE METER 115 mg/dL 70-110 H TESTED AT [place] [address] ([facility]) (test code = [place] 1538) [address] POCT-GLUCOSE [id number] 07:41:00 Test Item Value Reference Range Interpretation Comments POC-GLUCOSE METER 108 mg/dL 70-110 TESTED AT [facility] 6720 (BEAKER) (test code = [place] 1538) [address] [id number] 07:06:00 Test Item Value Reference Range Interpretation Comments MAGNESIUM (BEAKER) 1.8 mg/dL 1.6-2.6 Specimen slightly (test code = 627) hemolyzed [id number] 07:06:00 Test Item Value Reference Range Interpretation Comments PHOSPHORUS (BEAKER) 2.4 mg/dL 2.3-4.7 Specimen slightly (test code = 604) hemolyzed COMPREHENSIVE METABOLIC [id number] 07:06:00 Test Item Value Reference Range Interpretation [...] APPLICABLE FOR DIALYSIS PATIEN TS. HEPATIC FUNCTION [id number] 07:06:00 Test Item Value Reference Range Interpretation [...] slightly (test code = 347) hemolyzed CALCIUM, [id number] 06:42:00 Test Item Value Reference Range Interpretation Comments CALCIUM IONIZED (BEAKER) (test 1.16 mmol/L 1.12-1.27 code = 698) PH, BLOOD (BEAKER) (test code = 7.42 1810) CBC W/PLT COUNT & AUTO [id number] 05:10:00 Test Item Value Reference Range Interpretation [...] PERCENT (BEAKER) (test code = 2801) POCT-GLUCOSE [id number] 23:12:00 Test Item Value Reference Range Interpretation Comments POC-GLUCOSE METER 95 mg/dL 70-110 TESTED AT [facility] 6720 (BEAKER) (test code = PAUL[place]JOSE [place] [address] 1538) POCT-GLUCOSE [id number] 18:51:00 Test Item Value Reference Range Interpretation Comments POC-GLUCOSE METER 118 mg/dL 70-110 H TESTED AT [place] [address] ([facility]) (test code = JOB Osei [facility] 1538) [address] HEMOGLOBIN AND [id number] 16:28:00 Test Item Value Reference Range Interpretation Comments HEMOGLOBIN ([facility]) (test code = 8.7 GM/DL 11.2-15.7 L 410) HEMATOCRIT ([facility]) (test code = 27.8 % 34.1-44.9 L 411) POCT-GLUCOSE [id number] 15:00:00 Test Item Value Reference Range Interpretation Comments POC-GLUCOSE METER 140 mg/dL 70-110 H TESTED AT [place] [address] ([facility]) (test code = JOB Osei [facility] 1538) [address] POCT-GLUCOSE [id number] 14:46:00 Test Item Value Reference Range Interpretation Comments POC-GLUCOSE METER 44 mg/dL 70-110 L Notified R Dandre WALTER/TESTED AT ([facility]) (test code = [place] [address] [facility] [address] 0 POCT-GLUCOSE [id number] 13:05:00 Test Item Value Reference Range Interpretation Comments POC-GLUCOSE METER 87 mg/dL 70-110 TESTED AT [place] [address] ([facility]) (test code = JOB Osei [facility] [address] 1538) POCT-GLUCOSE [id number] 11:57:00 Test Item Value Reference Range Interpretation Comments POC-GLUCOSE METER 65 mg/dL 70-110 L Notified R Dandre WALTER/TESTED AT ([facility]) (test code = [address] 1538) [facility] [address] VANCOMYCIN LEVEL, [id number] 10:58:00 Test Item Value Reference Range Interpretation Comments VANCOMYCIN TROUGH ([facility]) (test 14.2 ug/mL 10.0-20.0 code = 522) RAD, ABDOMEN/KUB, 1 VIEW [id number] 09:41:00Reason for exam:->abdominal painFINAL REPORT AP abdomen, two images HISTORY: Abdominal pain COMPARISON: 07/28/2013 IMPRESSION:Grossly nonobstructive bowel gas pattern. Intact skeleton. Signed: Vikas Guillen MDReport Verified Date/Time: 07/30/2018 09:41:59 Reading Location: [facility] C013X Ortho Consult Reading Room -GLUCOSE [id number] 07:59:00 Test Item Value Reference Range Interpretation Comments POC-GLUCOSE METER 87 mg/dL 70-110 TESTED AT [facility] 6720 (BEAKER) (test code = [place] [address] 1538) CALCIUM, [id number] 06:53:00 Test Item Value Reference Range Interpretation Comments CALCIUM IONIZED (BEAKER) (test 1.12 mmol/L 1.12-1.27 code = 698) PH, BLOOD (BEAKER) (test code = 7.44 1810) [id number] 06:38:00 Test Item Value Reference Range Interpretation Comments PHOSPHORUS (BEAKER) (test code = 2.7 mg/dL 2.3-4.7 604) [id number] 06:38:00 Test Item Value Reference Range Interpretation Comments MAGNESIUM (BEAKER) (test code = 1.6 mg/dL 1.6-2.6 627) HEPATIC FUNCTION [id number] 06:38:00 Test Item Value Reference Range Interpretation [...] = 9 U/L 6-55 347) COMPREHENSIVE METABOLIC [id number] 06:38:00 Test Item Value Reference Range Interpretation [...] PATIEN TS. CBC W/PLT COUNT & AUTO [id number] 06:11:00 Test Item Value Reference Range Interpretation [...] PERCENT (BEAKER) (test code = 2801) POCT-GLUCOSE [id number] 21:38:00 Test Item Value Reference Range Interpretation Comments POC-GLUCOSE METER 96 mg/dL 70-110 TESTED AT [facility] 6720 ([facility]) (test code = [facility] [address] 1538) POCT-GLUCOSE [id number] 18:19:00 Test Item Value Reference Range Interpretation Comments POC-GLUCOSE METER 121 mg/dL 70-110 H TESTED AT [facility] 6720 [facility] (test code = [facility] 1538) [address] T4, [id number] 12:35:00 Test Item Value Reference Range Interpretation Comments FREE T4 (BEAKER) (test code = 655) 1.25 ng/dL 0.70-1.48 POCT-GLUCOSE [id number] 12:27:00 Test Item Value Reference Range Interpretation Comments POC-GLUCOSE METER 127 mg/dL 70-110 H TESTED AT [facility] 6720 (BEAKER) (test code = [place] 1538) [address] TSH/FREE T4 IF [id number] 12:07:00 Test Item Value Reference Range Interpretation Comments THYROID STIMULATING HORMONE 0.25 uIU/mL 0.35-4.94 L (BEAKER) (test code = 772) [id number] 12:07:00 Test Item Value Reference Range Interpretation Comments THYROID STIMULATING HORMONE 0.25 uIU/mL 0.35-4.94 L (BEAKER) (test code = 772) LACTIC ACID, VENOUS, WHOLE [id number] 11:35:00 Test Item Value Reference Range Interpretation Comments LACTATE BLOOD VENOUS 0.6 mmol/L 0.5-2.2 Specime n slightly (2) (BEAKER) (test hemolyzed code = 2872) VANCOMYCIN LEVEL, [id number] 07:11:00 Test Item Value Reference Range Interpretation Comments VANCOMYCIN RANDOM (BEAKER) (test 17.9 ug/mL code = 523) Reference Range: No [id number] 07:09:00 Test Item Value Reference Range Interpretation Comments PHOSPHORUS (BEAKER) (test code = 3.9 mg/dL 2.3-4.7 604) [id number] 07:09:00 Test Item Value Reference Range Interpretation Comments MAGNESIUM (BEAKER) (test code = 1.7 mg/dL 1.6-2.6 627) BASIC METABOLIC [id number] 07:09:00 Test Item Value Reference Range Interpretation [...] APPLICABLE FOR DIALYSIS PATIEN TS. HEPATIC FUNCTION [id number] 07:09:00 Test Item Value Reference Range Interpretation [...] code = 10 U/L 6-55 347) TROPONIN [id number] 06:54:00 Test Item Value Reference Range Interpretation Comments TROPONIN I (BEAKER) (test code = 0.08 ng/mL 0.00-0.03 H 397) LACTIC ACID, VENOUS, WHOLE [id number] 06:45:00 Test Item Value Reference Range Interpretation Comments LACTATE BLOOD VENOUS 0.8 mmol/L 0.5-2.2 Specime n slightly (2) (BEAKER) (test hemolyzed code = 1002) CBC W/PLT COUNT & AUTO [id number] 06:00:00 Test Item Value Reference Range Interpretation [...] PERCENT (BEAKER) (test code = 2801) CALCIUM, [id number] 05:58:00 Test Item Value Reference Range Interpretation Comments CALCIUM IONIZED (BEAKER) (test 1.12 mmol/L 1.12-1.27 code = 698) PH, BLOOD (BEAKER) (test code = 7.39 1810) EOSINOPHIL SMEAR, [id number] 20:17:00 Test Item Value Reference Range Interpretation Comments EOSINOPHIL SMEAR, URINE (BEAKER) No EOS seen No EOS seen (test code = 1851) BASIC METABOLIC [id number] 20:01:00 Test Item Value Reference Range Interpretation [...] DIALYSIS PATIEN TS. LACTIC ACID, VENOUS, WHOLE [id number] 19:59:00 Test Item Value Reference Range Interpretation Comments LACTATE BLOOD VENOUS 0.8 mmol/L 0.5-2.2 Specime n slightly (2) (BEAKER) (test hemolyzed code = 2872) CT, BRAIN/STROKE [id number] 19:59:00Stroke Protocol. Phone/Page MD for reporting.Reason for [...] Fink Verified Date/Time: 07/28/2018 19:59:01 Reading Location: [facility] Reading Room [id number] 19:51:00 Test Item Value Reference Range Interpretation Comments PARTIAL THROMBOPLASTIN TIME 33.1 seconds 22.5-36.0 (BEAKER) (test code = 760) PROTHROMBIN [id number] 19:50:00 Test Item Value Reference Range Interpretation Comments PROTIME (BEAKER) (test code = 15.6 seconds 11.7-14.7 H 759) INR (BEAKER) (test code = 370) 1.2 <=5.9 RECOMMENDED COUMADIN/WARFARIN INR THERAPY RANGESSTANDARD DOSE: 2.0 - 3.0 Includes: PROPHYLAXIS for venous thrombosis, systemic embolization; TREATMENT for venous thrombosis and/or pulmonary embolus.HIGH RISK: Target INR is 2.5-3.5 for patients with mechanical heart valves.HEMOGLOBIN AND [id number] 19:41:00 Test Item Value Reference Range Interpretation Comments HEMOGLOBIN (BEAKER) (test code = 11.3 GM/DL 11.2-15.7 410) HEMATOCRIT (BEAKER) (test code = 35.4 % 34.1-44.9 411) CBC W/PLT COUNT & AUTO [id number] 19:41:00 Test Item Value Reference Range Interpretation [...] PERCENT (BEAKER) (test code = 2801) TROPONIN [id number] 19:26:00 Test Item Value Reference Range Interpretation Comments TROPONIN I (BEAKER) (test code = 0.11 ng/mL 0.00-0.03 H 397) PROTEIN, RANDOM [id number] 19:19:00 Test Item Value Reference Range Interpretation Comments PROTEIN, URINE (BEAKER) (test code 325 mg/dL 0-14 H = 1569) POCT-GLUCOSE [id number] 19:00:00 Test Item Value Reference Range Interpretation Comments POC-GLUCOSE METER 158 mg/dL 70-110 H TESTED AT [facility] 6720 (BEAKER) (test code = [place] 1538) [address] CREATININE, RANDOM [id number] 18:52:00 Test Item Value Reference Range Interpretation Comments CREATININE URINE (BEAKER) (test 95.8 mg/dL code = 375) Reference Range: No NormalsSODIUM, RANDOM [id number] 18:52:00 Test Item Value Reference Range Interpretation Comments SODIUM URINE (BEAKER) (test code = 28 meq/L 243) Reference Range: No NormalsURINALYSIS W/ [id number] 18:02:00 Test Item Value Reference Range Interpretation [...] code Urine, Clean Catch = 2795) POCT-GLUCOSE [id number] 17:21:00 Test Item Value Reference Range Interpretation Comments POC-GLUCOSE METER 137 mg/dL 70-110 H TESTED AT [facility] 6720 (BEAKER) (test code = [place] 1538) [address] BASIC METABOLIC [id number] 17:14:00 Test Item Value Reference Range Interpretation [...] APPLICABLE FOR DIALYSIS PATIEN TS. Call results [id number] ACID, VENOUS, WHOLE [id number] 14:19:00 Test Item Value Reference Range Interpretation Comments LACTATE BLOOD VENOUS (2) (BEAKER) 1.1 mmol/L 0.5-2.2 (test code = 2872) THROMBIN [id number] 13:02:00 Test Item Value Reference Range Interpretation Comments THROMBIN TIME (BEAKER) (test code = 17.8 secs 13.8-20.0 550) [id number] 13:01:00 Test Item Value Reference Range Interpretation Comments PROCALCITONIN (BEAKER) (test code 0.09 ng/mL <0.05 H = 3036) SEPSIS RISK (ng/mL)Low: 0.05-0.50Intermediate: 0.51-2.00High: >=2.011:1 MIXING STUDY, [id number] 12:38:00 Test Item Value Reference Range Interpretation Comments PROTIME (BEAKER) (test code = 15.0 seconds 11.7-14.7 H 759) PARTIAL THROMBOPLASTIN TIME 36.1 seconds 22.5-36.0 H (BEAKER) (test code = 760) PT 1/1 MIX (BEAKER) (test code = 14.4 SECS 11.7-14.7 1595) PTT 1/1 MIX (BEAKER) (test code 35.5 SECS 22.5-36.0 = 1596) TROPONIN [id number] 12:01:00 Test Item Value Reference Range Interpretation Comments TROPONIN I (BEAKER) (test code = 0.13 ng/mL 0.00-0.03 H 397) HCG, QUANTITATIVE, [id number] 11:58:00 Test Item Value Reference Range Interpretation Comments GONADOTROPIN, CHORIONIC (HCG) QUANT < mIU/mL 0-10 (BEAKER) (test code = 649) Non- Females: <10 mIU/mL Females: Gestation Age Reference Range(mIU/mL) 0.2-1 Week 5-50 1-2 Weeks 50-500 2-3 Weeks 100-5,000 3-4 Weeks 500-10,000 4-5 Weeks 1,000-50,000 5-6 Weeks 10,000-100,000 6-8 Weeks 15,000- 200,000 2-3 Months 10,000-100,[id number] 11:55:00 Test Item Value Reference Range Interpretation Comments LIPASE (BEAKER) (test code = 749) 31 U/L 8-78 [id number] 11:55:00 Test Item Value Reference Range Interpretation Comments AMYLASE (BEAKER) (test code = 349) 101 U/L 25-125 COMPREHENSIVE METABOLIC [id number] 11:55:00 Test Item Value Reference Range Interpretation [...] NOT APPLICABLE FOR DIALYSIS PATIEN TS. C-REACTIVE [id number] 11:55:00 Test Item Value Reference Range Interpretation Comments C-REACTIVE PROTEIN (BEAKER) (test 0.42 mg/dL 0.00-0.50 code = 676) LACTIC ACID, VENOUS, WHOLE [id number] 11:51:00 Test Item Value Reference Range Interpretation Comments LACTATE BLOOD VENOUS 1.5 mmol/L 0.5-2.2 Specime n slightly (2) (BEAKER) (test hemolyzed code = 9296) [id number] 11:44:00 Test Item Value Reference Range Interpretation Comments PARTIAL THROMBOPLASTIN TIME 35.4 seconds 22.5-36.0 (BEAKER) (test code = 760) CBC W/PLT COUNT & AUTO [id number] 11:30:00 Test Item Value Reference Range Interpretation [...] PERCENT (AMINAH) (test code = 2801) POCT-GLUCOSE [id number] 11:20:00 Test Item Value Reference Range Interpretation Comments POC-GLUCOSE METER 167 mg/dL 70-110 H TESTED AT [facility] 6720 (AMINAH) (test code = [place] 1538) [address] HEMOGLOBIN [id number] 11:15:00 Test Item Value Reference Range Interpretation Comments HEMOGLOBIN A1C (AMINAH) (test code = 5.6 % 4.3-6.1 368) PROTHROMBIN [id number] 08:24:00 Test Item Value Reference Range Interpretation Comments PROTIME (AMINAH) (test code = 15.3 seconds 11.7-14.7 H 759) INR (AMINAH) (test code = 370) 1.2 <=5.9 RECOMMENDED COUMADIN/WARFARIN INR THERAPY RANGESSTANDARD DOSE: 2.0 - 3.0 Includes: PROPHYLAXIS for venous thrombosis, systemic embolization; TREATMENT for venous thrombosis and/or pulmonary embolus.HIGH RISK: Target INR is 2.5-3.5 for patients with mechanical heart valves.RAD, ABDOMEN/KUB, 1 VIEW [id number] 08:13:00Reason for exam:->abdominal painFINAL REPORT INDICATION:Abdominal pain. [...] Ruiz Verified Date/Time: 07/28/2018 08:13:33 Reading Location: [address] Ortho Consult Reading Room ONIN [id number] 08:11:00 Test Item Value Reference Range Interpretation Comments TROPONIN I (AMINAH) (test code = 0.05 ng/mL 0.00-0.03 H 397) RAD, CHEST, 1 VIEW, NON [id number] 08:10:00Reason for exam:->chest painShould this be performed at the bedside?->YesFINAL REPORT RAD, CHEST, 1 VIEW, NON DEPT INDICATION: chest pain COMPARISON: Prior day's exam FINDINGS: Portable frontal view of the chest. IMPRESSION: Support Lines: None. Lungs and pleura: Clear lungs. No effusion. No pneumothorax.Heart and mediastinum: Unremarkable contours.Additional findings: None. Signed: JR Maya Robert MDReport Verified Date/Time: 07/28/2018 08:10:51 Reading Location: [facility] Reading Room BASIC METABOLIC [id number] 08:08:00 Test Item Value Reference Range Interpretation [...] S NOT APPLICABLE FOR DIALYSIS PATIEN TS. [id number] 08:04:00 Test Item Value Reference Range Interpretation Comments LIPASE (BEAKER) (test code = 749) 12 U/L 8-78 HEPATIC FUNCTION [id number] 08:04:00 Test Item Value Reference Range Interpretation [...] (test code = 347) hemolyzed COMPLEMENT COMPONENT [id number] 08:03:00 Test Item Value Reference Range Interpretation Comments C4 COMPLEMENT (BEAKER) (test code = 25 mg/dL 15-57 394) COMPLEMENT COMPONENT [id number] 08:03:00 Test Item Value Reference Range Interpretation Comments C3 COMPLEMENT (BEAKER) (test code = 125 mg/dL 82-193 393) POCT-BLOOD GASES, [id number] 07:57:00 Test Item Value Reference Range Interpretation Comments TEMP, CELSIUS-POC 37.0 (BEAKER) (test code = 1834) FIO2-POC (BEAKER) TESTED AT [facility] 6720 (test code = 1835) [place] [address] PH, ARTERIAL-POC 7.416 7.350-7.450 (BEAKER) (test code [...] L ARTERIAL-POC (BEAKER) (test code = 1841) [id number] 07:57:00 Test Item Value Reference Range Interpretation Comments POC-SODIUM ([facility]) 146 meq/L 135-148 TESTED [place] [address] (test code = 1542) [facility] [address] [id number] 07:57:00 Test Item Value Reference Range Interpretation Comments POC-POTASSIUM 2.7 meq/L 3.6-5.5 L TESTED AT [place] [address] ([facility]) (test code [facility] [address] = 1540) [id number] 07:57:00 Test Item Value Reference Range Interpretation Comments POC-GLUCOSE ([facility]) 176 mg/dL 70-110 H TESTED AT [place] [address] (test code = 1855) [facility] [address] POCT-CALCIUM [id number] 07:57:00 Test Item Value Reference Range Interpretation Comments POC-CALCIUM IONIZED 1.15 mmol/L 1.12-1.27 TESTED [place] [address] ([facility]) (test code = [facility] 1536) [address] [id number] 07:57:00 Test Item Value Reference Range Interpretation Comments POC-HEMATOCRIT 38 % 36-45 TESTED AT [place] [address] ([facility]) (test code = [facility] [address]57) [id number] 07:57:00 Test Item Value Reference Range Interpretation Comments POC-HEMOGLOBIN 12.9 g/dL 12.0-15.0 TESTED AT [place] [address] ([facility]) (test code [facility] = 1856) [address] AT [place] [address] [facility] [address] POCT-LACTIC ACID, [id number] 07:57:00 Test Item Value Reference Range Interpretation Comments POC-LACTIC ACID, 3.3 mmol/L 0.9-1.7 H TESTED AT [place] [address] VENOUS ([facility]) (test [facility] code = 2805) [address] CBC W/PLT COUNT & AUTO [id number] 07:47:00 Test Item Value Reference Range Interpretation Comments WHITE BLOOD CELL COUNT ([facility]) 9.6 K/ L 3.5-10.5 (test code = [...]
[2023-01-12 17:15] LABS: Specific Gravity 1.017 (1.005-1.030); Urine Bacteria <20 /HPF (<20); Urine Bilirubin NEGATIVE (Negative); Urine Blood Negative (Negative); Urine Clarity Turbid (Clear); Urine Color Yellow (Yellow); Urine Glucose NEGATIVE (Negative); Urine Protein 2+ (Negative); Urine RBC <5 /HPF (None Seen); Urine Urobilinogen Normal (Normal); Urine pH 6.5 (5.0-7.0)
[2023-01-12] MEDS ORDERED: DIAZEPAM 5 MG TABLET ONE (17:17)
--- NOTE | 2023-01-12 17:41 | EDPHYS ---
Physician Documentation [facility] Name: Babs Younger Age: 52 yrs Sex: Female : 1970 Arrival Date: 01/12/2023 Time: 15:40 Bed 19 Private MD: GENARO Physician Christiano Elizondo HPI: 01/12 17:27 This 52 yrs old Black Female presents to ER via EMS with complaints of Back Pain. logan 17:27 The patient presents with pain that is chronic. The patient presents with pain that is logan chronic, with no known mechanism of injury. The symptoms are located in the low back. Onset: The symptoms/episode began/occurred 2 day(s) ago. The pain does not radiate. Associated signs and symptoms: The patient has no apparent associated signs or symptoms. The problem was sustained from unknown cause. Modifying factors: The patient symptoms are alleviated by rest, the patient symptoms are aggravated by movement. Severity of symptoms: At their worst the symptoms were mild, moderate, in the emergency department the symptoms are unchanged. The patient has not experienced similar symptoms in the past. 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 N/A - Irregular menses sg5 Historical: - Allergies: 15:44 Morphine; bp 15:44 SHELLFISH; bp - Home Meds: 15:44 amlodipine 10 mg tab 1 tab once daily [Active]; hydralazine 50 mg Oral tab 1 tab three bp times a day [Active]; metoprolol tartrate 100 mg Oral tab 1 tab 2 times per day [Active]; gabapentin 400 mg Oral cap 1 cap as needed [Active]; doxazosin 4 mg Oral tab 1 tab once daily [Active]; clonidine HCl 0.3 mg Oral tab 1 tab three times a day [Active]; CellCept 500 mg Oral tab 2 tabs 2 times per day [Active]; - PMHx: 15:44 bowel obstruction; Diabetes - IDDM; Hypertension; Lupus; ESRD; Seizures; Renal Disease; bp - PSHx: 15:44 Colostomy reversal; bp - Immunization history:: Adult Immunizations up to date. - Social history:: Smoking status: unknown. - Family history:: not pertinent. ROS: 17:27 Constitutional: Negative for fever, chills, and weight loss, Eyes: Negative for injury, logan pain, redness, and discharge, ENT: Negative for injury, pain, and discharge, Neck: Negative for injury, pain, and swelling, Cardiovascular: Negative for chest pain, palpitations, and edema, Respiratory: Negative for shortness of breath, cough, wheezing, and pleuritic chest pain, Abdomen/GI: Negative for abdominal pain, nausea, vomiting, diarrhea, and constipation, : Negative for injury, bleeding, discharge, and swelling, MS/Extremity: Negative for injury and deformity, Skin: Negative for injury, rash, and discoloration, Neuro: Negative for headache, weakness, numbness, tingling, and seizure, Psych: Negative for depression, anxiety, suicide ideation, homicidal ideation, and hallucinations, Allergy/Immunology: Negative for hives, rash, and allergies, Endocrine: Negative for neck swelling, polydipsia, polyuria, polyphagia, and marked weight changes, Hematologic/Lymphatic: Negative for swollen nodes, abnormal bleeding, and unusual bruising. 17:27 Abdomen/GI: Positive for 17:27 Back: Positive for decreased range of motion, pain with movement, of the lumbar area, left low back and right low back. Exam: 17:27 Constitutional: This is a well developed, well nourished patient who is awake, alert, logan and in no acute distress. Head/Face: Normocephalic, atraumatic. Eyes: Pupils equal round and reactive to light, extra-ocular motions intact. Lids and lashes normal. Conjunctiva and sclera are non-icteric and not injected. Cornea within normal limits. Periorbital areas with no swelling, redness, or edema. ENT: Nares patent. No nasal discharge, no septal abnormalities noted. Tympanic membranes are normal and external auditory canals are clear. Oropharynx with no redness, swelling, or masses, exudates, or evidence of obstruction, uvula midline. Mucous membranes moist. Neck: Trachea midline, no thyromegaly or masses palpated, and no cervical lymphadenopathy. Supple, full range of motion without nuchal rigidity, or vertebral point tenderness. No Meningismus. Chest/axilla: Normal chest wall appearance and motion. Nontender with no deformity. No lesions are appreciated. Cardiovascular: Regular rate and rhythm with a normal S1 and S2. No gallops, murmurs, or rubs. Normal PMI, no JVD. No pulse deficits. Respiratory: Lungs have equal breath sounds bilaterally, clear to auscultation and percussion. No rales, rhonchi or wheezes noted. No increased work of breathing, no retractions or nasal flaring. Abdomen/GI: Soft, non-tender, with normal bowel sounds. No distension or tympany. No guarding or rebound. No evidence of tenderness throughout. Skin: Warm, dry with normal turgor. Normal color with no rashes, no lesions, and no evidence of cellulitis. MS/ Extremity: Pulses equal, no cyanosis. Neurovascular intact. Full, normal range of motion. Neuro: Awake and alert, GCS 15, oriented to person, place, time, and situation. Cranial nerves II-XII grossly intact. Motor strength 5/5 in all extremities. Sensory grossly intact. Cerebellar exam normal. Normal gait. Psych: Awake, alert, with orientation to person, place and time. Behavior, mood, and affect are within normal limits. 17:27 Back: pain, that is mild, ROM is painful, normal spinal alignment noted, CVA tenderness, is absent, vertebral tenderness, is not appreciated. Vital Signs: 15:43 Pulse 55; Resp 16; Temp 98; Pulse Ox 100% ; bp 17:55 BP 137 / 108; Pulse 76; Resp 18; Pulse Ox 98% on R/A; Pain 5/10; sg5 17:55 Pain Scale: Adult sg5 MDM: 16:12 Patient medically screened. logan 17:32 Data reviewed: vital signs, nurses notes, lab test result(s), urinalysis. Consideration logan of Admission/Observation Escalation of care including admission/observation considered. I considered the following discharge prescriptions or medication management in the emergency department Medications were administered in the Emergency Department. See MAR. Test considered but Not performed: Labs: NO LABS, NO RADIOLOGIC STIDIES. External Records Reviewed: Inpatient record: [facility]. Care significantly affected by the following chronic conditions: Diabetes, Hypertension, Chronic Kidney Disease, LUPUS. Counseling: I had a detailed discussion with the patient and/or guardian regarding: the historical points, exam findings, and any diagnostic results supporting the discharge/admit diagnosis, lab results, the need for outpatient follow up. 01/12 16:14 Order name: Urinalysis W/Microscopic; Complete Time: 17:26 logan Administered Medications: 17:13 Drug: Diazepam PO 10 mg Route: PO; sg5 17:34 Not Given (order changed per provider): fentaNYL (PF) IVP 25 mcg IVP once sg5 17:35 Not Given (order changed per providerr): NS 0.9% IV 1000 ml IV at 125 ml/hr continuous sg5 17:35 Not Given (order changed per providerr): fentaNYL (PF) IVP 25 mcg IVP once sg5 17:35 Not Given (order changed per provider): Ondansetron IVP 4 mg IVP once; over 2 minutes sg5 17:55 Drug: HYDROmorphone IM 2 mg Route: IM; Site: right gluteus; sg5 17:55 Drug: Promethazine IM 25 mg Route: IM; Site: right gluteus; sg5 18:00 Drug: fentaNYL Transdermal Patch (50 mcg/hr) 1 patches Route: Transdermal; Site: sg5 affected area; Disposition Summary: 01/12/23 17:40 Discharge Ordered Location: Home logan Problem: new logan Symptoms: have improved logan Condition: Stable logan Diagnosis - Other chronic pain logan - Low back pain logan Followup: logan - With: Private Physician - When: 2 - 3 days - Reason: Recheck today's complaints, Continuance of care, Re-evaluation by your physician Discharge Instructions: - Discharge Summary Sheet logan - Chronic Back Pain logan - Musculoskeletal Pain logan - Chronic Back Pain, Bufn-lo-Nqvd logan Forms: - Medication Reconciliation Form logan - Thank You Letter logan - Antibiotic Education logan - Prescription Opioid Use logan Signatures: Dispatcher [employer] Christiano Friedman MD MD cha Peltier, Brian, RN RN bp Galvan, Stephanie RN RN sg5
--- NOTE | 2023-01-12 17:41 | ER ---
Nurse's Notes [facility] Name: Babs Younger Age: 52 yrs Sex: Female : 1970 Arrival Date: 01/12/2023 Time: 15:40 Bed 19 Private MD: Diagnosis: Other chronic pain;Low back pain Presentation: 01/12 15:43 Chief complaint: EMS states: BACK PAIN AFTER DC FROM HOSPITAL Y/D AND UNABLE TO WAIT bp FOR APPT WITH PAIN MGMT. Coronavirus screen: At this time, the client does not indicate any symptoms associated with coronavirus-19. Ebola Screen: No symptoms or risks identified at this time. Initial Sepsis Screen: Does the patient meet any 2 criteria? No. Patient's initial sepsis screen is negative. Does the patient have a suspected source of infection? No. Patient's initial sepsis screen is negative. Risk Assessment: Do you want to hurt yourself or someone else? Patient reports no desire to harm self or others. Onset of symptoms is unknown. 15:43 Method Of Arrival: EMS: [facility] bp 15:43 Acuity: ELVA 3 bp Triage Assessment: 18:16 General: Behavior is calm, cooperative. 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 - Irregular menses sg5 Historical: - Allergies: 15:44 Morphine; bp 15:44 SHELLFISH; bp - Home Meds: 15:44 amlodipine 10 mg tab 1 tab once daily [Active]; hydralazine 50 mg Oral tab 1 tab three bp times a day [Active]; metoprolol tartrate 100 mg Oral tab 1 tab 2 times per day [Active]; gabapentin 400 mg Oral cap 1 cap as needed [Active]; doxazosin 4 mg Oral tab 1 tab once daily [Active]; clonidine HCl 0.3 mg Oral tab 1 tab three times a day [Active]; CellCept 500 mg Oral tab 2 tabs 2 times per day [Active]; - PMHx: 15:44 bowel obstruction; Diabetes - IDDM; Hypertension; Lupus; ESRD; Seizures; Renal Disease; bp - PSHx: 15:44 Colostomy reversal; bp - Immunization history:: Adult Immunizations up to date. - Social history:: Smoking status: unknown. - Family history:: not pertinent. Screenin:00 [facility] ED Fall Risk Assessment (Adult) History of falling in the last 3 months, sg5 including since admission No falls in past 3 months (0 pts). Abuse screen: Denies threats or abuse. Nutritional screening: No deficits noted. Tuberculosis screening: No symptoms or risk factors identified. Assessment: 16:00 General: Appears in no apparent distress. comfortable, Reports pain in left upper arm sg5 and to back. Pain: Complains of pain in left upper arm and back. Neuro: Level of Consciousness is awake, alert, obeys commands, Oriented to person, place, time, situation, Appropriate for age. Cardiovascular: Capillary refill < 3 seconds. Respiratory: Airway is patent Respiratory effort is even, unlabored. GI: No signs and/or symptoms were reported involving the gastrointestinal system. : No signs and/or symptoms were reported regarding the genitourinary system. EENT: No signs and/or symptoms were reported regarding the EENT system. Derm: No signs and/or symptoms reported regarding the dermatologic system. Musculoskeletal: No signs and/or symptoms reported regarding the musculoskeletal system. Vital Signs: 15:43 Pulse 55; Resp 16; Temp 98; Pulse Ox 100% ; bp 17:55 BP 137 / 108; Pulse 76; Resp 18; Pulse Ox 98% on R/A; Pain 5/10; sg5 17:55 Pain Scale: Adult sg5 ED Course: 15:42 Patient arrived in ED. bp 15:44 Triage completed. bp 15:44 Arm band placed on. bp 15:55 Chrystal Villavicencio, RN is Primary Nurse. sg5 16:00 Bed in low position. Call light in reach. Side rails up X 1. Valuables Left with sg5 patient. 16:12 Christiano Elizondo MD is Attending Physician. logan 16:48 Urinalysis W/Microscopic Sent. sg5 18:16 No provider procedures requiring assistance completed. Patient did not have IV access sg5 during this emergency room visit. Administered Medications: 17:13 Drug: Diazepam PO 10 mg Route: PO; sg5 17:34 Not Given (order changed per provider): fentaNYL (PF) IVP 25 mcg IVP once sg5 17:35 Not Given (order changed per providerr): NS 0.9% IV 1000 ml IV at 125 ml/hr continuous sg5 17:35 Not Given (order changed per providerr): fentaNYL (PF) IVP 25 mcg IVP once sg5 17:35 Not Given (order changed per provider): Ondansetron IVP 4 mg IVP once; over 2 minutes sg5 17:55 Drug: HYDROmorphone IM 2 mg Route: IM; Site: right gluteus; sg5 17:55 Drug: Promethazine IM 25 mg Route: IM; Site: right gluteus; sg5 18:00 Drug: fentaNYL Transdermal Patch (50 mcg/hr) 1 patches Route: Transdermal; Site: sg5 affected area; Medication: 16:00 VIS not applicable for this client. sg5 Outcome: 17:40 Discharge ordered by MD. ford 18:16 Discharged to home with family. sg5 18:16 Condition: good 18:16 Discharge instructions given to patient, Instructed on discharge instructions, follow up and referral plans. 18:16 Patient left the ED. sg5 Signatures: Christiano Elizondo MD MD cha Peltier, Brian, RN RN Chrystal Caceres RN RN sg5
[2023-01-12] MEDS ORDERED: PROMETHAZINE INJ 25 MG/ML AMP ONE (17:47)
[2023-01-12] MEDS ORDERED: HYDROMORPHONE HCL 2 MG/ML inj ONE (17:48)
[2023-01-12] MEDS ORDERED: FENTANYL 25 MCG/PATCH TD ONE (18:05)
[2023-01-12 18:51] VITALS: TEMP 98
[2023-01-12 18:53] VITALS: BP 137/108; O2SAT 98
== END 2023-01-12 18:16 | disposition home or self-care (01) ==
LOC: ER 15:40
DX: G89.29 Other chronic pain (principal); E11.22 Type 2 diabetes mellitus with diabetic chronic kidney disease; I12.0 Hypertensive chronic kidney disease with stage 5 chronic kidney disease or end stage renal disease; N18.6 End stage renal disease; Z99.2 Dependence on renal dialysis; Z88.5 Allergy status to narcotic agent; Z91.013 Allergy to seafood
CPT/HCPCS: 81001; J2550; J1170

== ENCOUNTER 2023-02-15 11:46 | Emergency (ER) | payer OTHER ==
--- OUTSIDE RECORDS SUMMARY | 2023-02-15 11:53 | XMS REPORT | Continuity of Care Document ---
:1970 Author Organization [facility] t Address [address] [facility] [address] [place] [address] Care Team Providers Name Role Phone Monico Espinoza DO Primary Care Physician [phone] .[facility] Attending Clinician Unavailable AKOSUA GRAF Attending Clinician Unavailable Akosua Graf MD Attending Clinician Naga Shepherd MD Attending Clinician Jeanna Shrestha Attending Clinician TONY GRAF Attending Clinician Unavailable Ligia Pedro MD Attending Clinician LIGIA PEDRO Attending Clinician Unavailable LIGIA PEDRO Attending Clinician Unavailable Doctor Unassigned, [place] Attending Clinician Unavailable ABEL LI Attending Clinician Unavailable ABEL LI Admitting Clinician Unavailable Payers Payer Name Policy Type Policy Number Effective Date Expiration Date Tess paetl [place]ICA[place] [id number] 2014 00:00:00 [facility] [id number] 2017 DUAL COMPLETE 00:00:00 Problems Condition Condition [...] HTN Disease Active 2018-08 Methodi (hypertens (hypertens 1-04 st ion) ion) 00:00: Hospita 00 l SLE SLE Disease Active 2018-08 [facility] (systemic (systemic 09-01 st lupus lupus 00:00: Hospita erythemato erythemato 00 l al al related related syndrome) syndrome) Rheumatoid Rheumatoid Disease Active 2018-08 M ethodi arthritis arthritis [address] [facility] 00:00: Hospita 00 l Attention Attention Disease Active 2018-08 Met hodi to to 1-04 st colostomy colostomy 00:00: Hosp liliana 00 [...] nce 1-30 Gilda kes on on 00:00: [facility] Lupus Lupus Disease Recurre 2017-[address] [facility] nephritis nephritis nce -30 Luke s 00:00: [facility] Abdominal Abdominal Disease Active 2017-[address] [facility] pain pain 30 [facility] 00:00: [facility] 00 [place] Essential Essential Disease Active 2017-[address] [...] kidney kidney 30 [facility] injury) injury) 00:00: [facility] Hypernatre Hypernatre Disease Active 2017-[address] charisse charisse 30 [facility] 00:00[facility] Hypokalemi Hypokalemi Disease Active 2017-[address] a a 30 [facility] 00:00: [facility] [place] Bowel Bowel Disease Active Univers obstructio obstructio 3-20 it y of n n 00:00: [place] [facility] Colonic Colonic Disease Active Univers obstructio obstructio 3-19 it y of n n 00:00: [place] [facility] Colostomy Colostomy Disease Active Met hodi in place in place 02-23 st 00:00: Hospita 00 l Seizure Seizure Disease Active Univers 9-21 ity of 00:00: [place] [facility] Obesity Obesity Disease Recurre Univer s (BMI (BMI nce 9-20 ity of 30-39.9) 30-39.9) 00:00: [place] [facility] Pulmonary Pulmonary Disease Active Uni vers edema edema 8-28 ity of 00:00: [address] Branch Systemic Systemic Disease Recurre Univ ers lupus lupus nce 2-23 ity of erythemato [place]mato [place] [facility] Depression Depression Disease Active U nivers [...] of adverse 00:00: having a [place] reaction stroke" Medical s Branch Shellfis Propensi Active [...] Un [place] INGREDI 05-13 ity of 00:00: [address] Morphine Propensi Active Palpitations Methodi ty to 05-13 st adverse 00:00: Hospita reaction 00 l s to drug Family History Family Member Diagnosis Comments Start Date Stop Date Source Natural [facility] Kid[facility] Natural mother Uterine cancer Method [facility] Natural mother Cancer [facility] Natural mother Hypertension [facility] Natural sister Diabetes [facility] Social History Social Habit Start Date Stop Date Quantity Comments Source History SDOH [facility] Alcohol Comment Medical C enter Gender identity [facility] Sexual orientation [facility] History SDOH [facility] Alcohol Std Drinks [facility] History SDOH [facility] Alcohol Binge Medical Tarik ter Exposure to 2022 2022-07-28 Not sure [facility] SARS-CoV-2 (event) 00:00:00 09:52:00 [facility] History of Social 2019-09-12 2019-09-[address] function 00:00:00 00:00:00 Hospital Alcohol intake 2018-07-28 2018-07-[address] Jose es 00:00:00 00:00:00 non-drinker of Medical Ce nter alcohol (finding) History SDOH 2018-07-28 2018-07-[address] [facility] Alcohol Frequency 00:00:00 00:00:00 [facility] Tobacco use and 2016-05-13 2016-05-13 Smokeless Universit y of exposure 00:00:00 00:00:00 tobacco non-user [facility] Sex Assigned At [address] Gilda kes 00:00:00 00:00:00 [facility] Smoking Status Start Date Stop Date Source Never smoked tobacco [facility] Medications Ordered Filled Start Stop Current Ordering Indication Dosage Frequency Signature Comments Components Source Medication Medication Date Date Medication? Clinician (SIG) Name Name hydralAZINE 2021-08 No 10mg 10 mg, Uni vers (APRESOLINE 09-27 Slow IV ity of ) injection 17:15: 17:10 [place] 10 [place] 00 :00 ONCE, 1 Medical dose, On Branch 07/28/22 at 1115, JIMMY proMETHazin 2021-08- No 25mg 25 mg, IV Univers e [...] as mg 00 :00 dose, On Medical Tue Branch 07/28/22 at 1015, STAT escitalopra 2021-08 Yes 20mg Take 20 mg Univers m oxalate 30 by mouth ity of (LEXAPRO) 12:12: in the [place] 20 mg 20 morning. Medical tablet Branch HYDROcodone 2021-08 Yes 1{tbl} Take 1 Tab Univers -acetaminop -30 by mouth ity of hen (NORCO) 10:59: every 6 Juan C as 10-325 mg 53 (six) Medical tablet hours. Branch HYDROcodone 2021-08- No 4647 1{tbl} Take 1 U nivers -acetaminop 30 1208 tablet by it y of [place] (NORCO) 00:00: 05:59 [place] 10-325 mg 00 :00 every 6 Medical tablet (six) Branch hours as needed for Pain (scale 1-3) for up to 7 days. Indication s: acute pain cloNIDine 2020- No .3mg 0.3 mg, Univ ers (CATAPRES) 03-2730 Oral, ity of tablet 0.3 08:45: 07:42 ONCE, 1 Juan C as mg 00 :00 dose, Fri Medical 03/27/21 at Branch 0345, STAT proMETHazin 2020- No 25mg 25 mg, IV Univers e 03-27 Piggyback, ity of (PHENERGAN) 07:30: 07:30 [place] 1 [place] 25 [place] in 00 :00 dose, Fri Medica l NaCl 0.9% 03/27/21 at Bran ch (NS) 50 mL 0230, 50 piggyback mL FENTanyl PF 2020- No 100ug 100 mcg, Univers (SUBLIMAZE 03-27 Slow IV ity o f (PF)) 07:30: 06:31 [place], [place] injection 00 :00 ONCE, 1 Medical 100 mcg dose, Fri Branch 03/27/21 at 0230, Routine amoxicillin Yes [id number] 875mg Take 1 Univers 875 mg 5-20 [id number] tablet by ity of tablet 00:00: mouth 2 [place] [address] (two) Medical times Branch daily. amoxicillin 2020- Yes [id number] 875mg Take 1 Univers 875 mg 5-20 58120 tablet by ity of tablet 00:00: mouth 2 [place] [address] (two) Medical times Branch daily. amoxicillin 2020- Yes [id number] 875mg Take 1 Univers 875 mg 5-20 [id number] tablet by ity of tablet 00:00: mouth 2 [place] [address] (two) Medical times Branch daily. neomycin-po 2020- No [id number] 3[drp] Place 3 [facility] lymyxin-hyd 5-20 05-28 26650 Drops in it y of rocortisone 00:00: 04:59 right ear [place] 3.5-10,000- 00 :00 4 (four) Medi valentin [...] as st HEN (NORCO 16:02: needed. Hosp lilinaa ORAL) 14 l ALPRAZolam 2020-0 Yes .5mg [...] 16:02: needed. Hosp liliana ORAL) 14 l hydroxychlo 2020-0 Yes 500mg Q.5D Take [...] 16:02: mouth Hospita tablet 14 daily. l ALPRAZolam 2020-0 Yes .5mg Q.5D Take [...] by mouth. Jose es MG tablet 08:16: [address] pantoprazol 2018- Yes 40mg QD Take [address] e 2-04 by mouth [facility]ukes (PROTONIX) 08:16: daily. Medic al 40 MG 44 Center tablet doxazosin 2017-08 Yes 4mg Take [address] (CARDURA) 2 2-04 by mouth. Jose es MG tablet 08:16: [address] pantoprazol 2017-08 Yes 40mg QD Take [address] e 2-04 by mouth [facility]ukes (PROTONIX) 08:16: daily. Medic al 40 MG 44 Center tablet doxazosin 2017-08 Yes 4mg Take [address] (CARDURA) 2 2-04 by mouth. Jose es MG tablet 08:16: [address] pantoprazol 2017-08 Yes 40mg QD Take [address] e 2-04 by mouth [facility]ukes (PROTONIX) 08:16: daily. Medic al 40 MG 44 Center tablet doxazosin 2017-08 Yes 4mg Take [address] (CARDURA) 2 2-04 by mouth. Jose es MG tablet 08:16: [address] pantoprazol 2017-08 Yes 40mg QD Take [address] e 2-04 by mouth [facility]ukes (PROTONIX) 08:16: daily. Medic al 40 MG 44 Center tablet doxazosin 2017-08 Yes 4mg Take [address] (CARDURA) 2 2-04 by mouth. Jose es MG tablet 08:16: [address] pantoprazol 2017-08 Yes 40mg QD Take [address] e 2-04 by mouth [facility]ukes (PROTONIX) 08:16: daily. Medic al 40 MG 44 Center tablet doxazosin 2017-08 Yes 4mg Take [address] (CARDURA) 2 2-04 by mouth. Jose es MG tablet 08:16: [address] pantoprazol 2017-08 Yes 40mg QD Take [address] e 2-04 by mouth [facility]ukes (PROTONIX) 08:16: daily. Medic al 40 MG 44 Center tablet doxazosin 2017- Yes 4mg Take [address] (CARDURA) 2 2-04 by mouth. Jose es MG tablet 08:16: [address] pantoprazol 2017- Yes 40mg QD Take [address] e 2-04 by mouth Lukes (PROTONIX) 08:16: daily. Medic al 40 MG 44 Center tablet zolpidem 2017-08 Yes 10mg QD Take [address] (AMBIEN) 10 1-25 by mouth Luke s mg tablet 00:00: nightly. [address] zolpidem 2017-08 Yes 10mg QD Take [address] (AMBIEN) 10 1-25 by mouth Luke s mg tablet 00:00: nightly. [address] zolpidem 2017-08 Yes 10mg QD Take [address] (AMBIEN) 10 1-25 by mouth Luke s mg tablet 00:00: nightly. [address] zolpidem 2017-08 Yes 10mg QD Take [address] (AMBIEN) 10 1-25 by mouth Luke s mg tablet 00:00: nightly. [address] zolpidem 2017-08 Yes 10mg QD Take [address] (AMBIEN) 10 1-25 by mouth Luke s mg tablet 00:00: nightly. [address] zolpidem 2017-08 Yes 10mg QD Take [address] (AMBIEN) 10 1-25 by mouth Luke s mg tablet 00:00: nightly. [address] zolpidem 2017-08 Yes 10mg QD Take [address] (AMBIEN) 10 1-25 by mouth Luke s mg tablet 00:00: nightly. [address] ondansetron 2017-08 Yes DIS [address] (ZOFRAN-ODT 1-23 THE TONGUE Gilda kes ) 8 MG 00:00: BID Medical disintegrat 00 [place] ing tablet ondansetron 2017-08 Yes DIS [address] [facility] (ZOFRAN-ODT 1-23 THE TONGUE Gilda kes ) 8 MG 00:00: BID Medical disintegrat 00 [place] ing tablet ondansetron 2017-08 Yes DIS [address] [facility] (ZOFRAN-ODT 1-23 THE TONGUE Gilda kes ) 8 MG 00:00: BID Medical disintegrat 00 Center ing tablet ondansetron 2017-08 Yes DIS [address] [facility] (ZOFRAN-ODT 1-23 THE TONGUE Gilda kes ) 8 MG 00:00: BID Medical disintegrat [place] ing tablet ondansetron 2017-08 Yes DIS 1 [...] Lukes 100 MG 00:00: Medical capsule 00 [place] [facility]-08 Yes TK [address] [facility] roquine 0-10 D [facility] (PLAQUENIL) 00:00: Medica l 200 mg 00 Center tablet gabapentin 2017-08 Yes TK [address] [facility] (NEURONTIN) 0-10 HS PRN [facility] 100 MG 00:00: [facility] Yes TK [address] [facility] roquine 0-10 D [facility] (PLAQUENIL) 00:00: Medica l 200 mg 00 Center tablet gabapentin 2017-08 Yes TK [address] [facility] (NEURONTIN) 0-10 HS PRN Lukes 100 MG 00:00: Medical capsule 00 [place] hydroxychlo 2017-08 Yes TK [address] [facility] roquine 0-10 D [facility] (PLAQUENIL) 00:00: Medica l 200 mg 00 Center tablet gabapentin 2017-08 Yes TK [address] [facility] (NEURONTIN) 0-10 HS PRN Lukes 100 MG 00:00: Medical capsule 00 [place] hydroxychlo 2017-08 Yes TK [address] [facility] roquine 0-10 D [facility] (PLAQUENIL) 00:00: Medica l 200 mg 00 Center tablet gabapentin 2017-08 Yes TK [address] [facility] (NEURONTIN) 0-10 HS PRN Lukes 100 MG 00:00: Medical capsule 00 [place] hydroxychlo 2017-08 Yes TK [address] [facility] roquine 0-10 D [facility] (PLAQUENIL) 00:00: Medica l 200 mg 00 Center tablet gabapentin 2017-08 Yes TK [address] [facility] (NEURONTIN) 0-10 HS PRN [facility]ukes 100 MG 00:00: Medical capsule 00 [place] hydroxychlo 2017-08 Yes TK [address] [facility] roquine 0-10 D [facility] (PLAQUENIL) 00:00: Medica l 200 mg 00 Center tablet gabapentin 2017-08 Yes TK [address] [facility] (NEURONTIN) 0-10 HS PRN [facility] 100 MG 00:00: [facility] [address] [facility] roquine 0-10 D [facility] (PLAQUENIL) 00:00: Medica l 200 mg 00 Center tablet doxazosin Yes 4mg Take 4 mg Uni vers (CARDURA) 2 3-21 by mouth ity of mg tablet 20:00: daily. [place] [address] Medical Branch metoprolol Yes 100mg Take 100 [...] mouth ity of 10 mg 20:00: daily. [place] tablet 52 Medical Branch doxazosin 2018-0 Yes 4mg Take 4 mg Uni vers (CARDURA) 4 3-21 by mouth ity of mg tablet 20:00: daily. [place] [address] Medical Branch zolpidem 2018-0 Yes 10mg Take [...] mouth ity of mg tablet 20:00: daily. [place] [address] Medical Branch metoprolol 2017-0 Yes 100mg Take [...] 52 (six) Medical tablet hours. Branch amLODIPine 2017-0 Yes 10mg Take 10 mg U nivers (NORVASC) 3-21 by mouth ity of 10 mg 20:00: daily. [place] tablet 52 Medical Branch doxazosin 2018-0 Yes 4mg Take 4 mg Uni vers (CARDURA) 4 3-21 by mouth ity of mg tablet 20:00: daily. [place] [address] Medical Branch zolpidem 2018-0 Yes 10mg Take [...] mouth ity of mg tablet 20:00: daily. [place] [address] Medical Branch metoprolol 2018-0 Yes 100mg Take [...] mouth ity of 10 mg 20:00: daily. [place] [address] Medical Branch doxazosin 2018-0 Yes 4mg Take 4 mg Uni vers (CARDURA) 4 3-21 by mouth ity of mg tablet 20:00: daily. [place] [address] Medical Branch zolpidem 2018-0 Yes 10mg Take [...] mouth ity of mg tablet 20:00: daily. [place] [address] Medical Branch metoprolol 2018-0 Yes 100mg Take [...] mouth ity of 10 mg 20:00: daily. [place] [address] Medical Branch doxazosin 2018-0 Yes 4mg Take 4 mg Uni vers (CARDURA) 4 3-21 by mouth ity of mg tablet 20:00: daily. [place] [address] Medical Branch zolpidem 2018-0 Yes 10mg Take [...] mouth ity of mg tablet 20:00: daily. [place] [address] Medical Branch metoprolol 2017-0 Yes 100mg Take [...] mouth ity of 10 mg 20:00: daily. [place] [address] Medical Branch doxazosin 2017-0 Yes 4mg Take 4 mg Uni vers (CARDURA) 4 3-21 by mouth ity of mg tablet 20:00: daily. [place] [address] Medical Branch zolpidem 2017-0 Yes 10mg Take [...] mouth ity of mg tablet 15:00: daily. [place] [address] Medical Branch metoprolol 2017-0 Yes 100mg Take 100 Un [place] succinate 3-21 mg by ity of XL (TOPROL 15:00: mouth 2 [place] XL[place] 100 mg 52 (two) Medical 24 hr times Branch tablet daily. amLODIPine 2018-0 Yes 10mg Take 10 mg U nivers (NORVASC) 3-21 by mouth ity of 10 mg 15:00: daily. [place] [address] Medical Branch doxazosin 0 Yes 4mg Take 4 mg Uni vers (CARDURA) 4 3-21 by mouth ity of mg tablet 15:00: daily. [place] [address] Medical Branch zolpidem 0 Yes 10mg Take [...] spita 00 needed for l sleep. zolpidem 20170 Yes 10mg QD Take 10 mg Met hodi (AMBIEN) 10 6-[address] mg tablet 00:00: nightly as Ho spita 00 needed for l sleep. zolpidem 0 Yes 10mg QD Take 10 mg Met hodi (AMBIEN) 10 6-[address] mg tablet 00:00: nightly as Ho spita 00 needed for l sleep. zolpidem 20170 Yes 10mg QD Take 10 mg Met [...] ity of 2 mg tablet 00:00: [facility] ER Yes TK ONE C Uni vers 10 mg CR12 8-22 PO Q 12 H ity of 00:00: PRN. Medical Branch tiZANidine Yes TK 1 T PO Un [place] (ZANAFLEX) 8-22 QHS. ity of 2 mg tablet 00:00: [facility] ER Yes TK ONE C Uni vers 10 mg CR12 8-22 PO Q 12 H ity of 00:00: PRN. Medical Branch tiZANidine 0 Yes TK 1 T PO Un [place] (ZANAFLEX) 8-22 QHS. ity of 2 mg tablet 00:00: [facility] ER Yes TK ONE C Uni vers 10 mg CR12 8-22 PO Q 12 H ity of 00:00: PRN. Medical Branch tiZANidine 2016-0 Yes TK 1 T PO Un [place] (ZANAFLEX) 8-22 QHS. ity of 2 mg tablet 00:00: [facility] ZORIDGECREST ER Yes TK ONE C Uni vers 10 mg CR12 8-22 PO Q 12 H ity of 00:00: PRN. [facility] tiZANidine Yes TK 1 T PO Un [place] (ZANAFLEX) 8-22 QHS. ity of 2 mg tablet 00:00: [facility] ZOHYDRO ER Yes TK ONE C Uni vers 10 mg CR12 8-22 PO Q 12 H ity of 00:00: PRN. [facility] tiZANidine Yes TK 1 T PO Un [place] (ZANAFLEX) 8-22 QHS. ity of 2 mg tablet 00:00: [facility] ZORIDGECREST ER Yes TK ONE C Uni vers 10 mg CR12 8-22 PO Q 12 H ity of 00:00: PRN. [facility] furosemide Yes TK 1 T PO [...] 6-16 BID. ity of mg tablet 00:00: [facility] furosemide Yes TK 1 T PO Un [place] (LASIX) 80 6-16 BID. ity of mg tablet 00:00: [facility] furosemide Yes TK 1 T PO Un [place] (LASIX) 80 6-16 BID. ity of mg tablet 00:00: [facility] furosemide Yes TK 1 T PO Un [place] (LASIX) 80 6-16 BID. ity of mg tablet 00:00: [facility] ONETOUCH 0 Yes FPD Univers ULTRA2 Kit 6-13 ity of 00:00: [facility] ONETOUCH Yes FPD Univers ULTRA2 Kit 6-13 ity of 00:00: [facility] ONETOUCH Yes FPD Univers ULTRA2 Kit [...] 00:00: [place] 00 Medical Branch ONE TOUCH 2015-0 Yes U [...] hours as Branch needed. mycophenola 2016-0 Yes 1000mg Q.5D Take 1,000 [...] Center tablet times daily. mycophenola 2016-0 Yes Univer s te mofetil [...] by ity of (LOPRESSOR) 00:00: mouth 2 [place] 100 mg 00 (two) Medical tablet [...] ULTRA TEST 2-21 ity of strip 00:00: [place] [facility] Yes Univers ULTRA TEST 2-21 ity of strip 00:00: [address] amLODIPine 2014-08 Yes 10mg Take [address] (NORVASC) 2-11 by mouth. [facility] 10 MG 00:00: Medical tablet 00 [place] amLODIPine 2014-08 Yes 10mg Take [address] (NORVASC) 2-11 by mouth. [facility] 10 MG 00:00: Medical tablet 00 [place] amLODIPine 2014-08 Yes 10mg Take [address] (NORVASC) 2-11 by mouth. [facility] 10 MG 00:00: Medical tablet 00 [place] amLODIPine 2014-08 Yes 10mg Take [address] (NORVASC) 2-11 by mouth. [facility] 10 MG 00:00: Medical tablet 00 [place] amLODIPine 2014-08 Yes 10mg Take [address] (NORVASC) 2-11 by mouth. [facility] 10 MG 00:00: Medical tablet 00 [place] amLODIPine 2014-08 Yes 10mg Take [address] (NORVASC) 2-11 by mouth. [facility] 10 MG 00:00: Medical tablet 00 [place] amLODIPine 2014-08 Yes 10mg Take [address] (NORVASC) 2-11 by mouth. [facility] 10 MG 00:00: Medical tablet 00 [place] cloNIDine 2014-08 Yes .3mg Q.[id number] Take 0.[address] HCl 1-11 [id number] mg by [facility]ukes (CATAPRES) 00:00: 3D mouth 3 Medi valentin 0.3 MG 00 (three) Center tablet times daily . furosemide 2014-08 Yes 80mg Take [address] (LASIX) 40 1-11 by mouth . Jose es MG tablet 00:00: Medical 00 [place] hydrALAZINE 2014-08 Yes 50mg Q.[id number] Take [address] (APRESOLINE 1-11 [id number] by mouth 3 [facility]ukes ) 50 MG 00:00: 3D (three) Medical tablet 00 times Center daily. metoprolol 2014-08 Yes 100mg Q.5D Take [address] (LOPRESSOR) 1-11 mg by [facility]ukes 100 MG 00:00: mouth 2 Medical tablet 00 (two) Center times daily. cloNIDine 2014-08 Yes .3mg Q.[id number] Take 0.[address] HCl 1-11 [id number] mg by Lukes (CATAPRES) 00:00: 3D mouth 3 Medi valentin 0.3 MG 00 (three) Center tablet times daily . furosemide 2014-08 Yes 80mg Take [address] (LASIX) 40 1-11 by mouth . Jose es MG tablet 00:00: Medical 00 [place] hydrALAZINE 2014-08 Yes 50mg Q.[id number] Take [address] (APRESOLINE 1-11 [id number] by mouth 3 [facility]ukes ) 50 MG 00:00: 3D (three) Medical tablet 00 times Center daily. metoprolol 2014-08 Yes 100mg Q.5D Take [address] (LOPRESSOR) 1-11 mg by [facility]ukes 100 MG 00:00: mouth 2 Medical tablet 00 (two) Center times daily. cloNIDine 2014-08 Yes .3mg Q.55052157 Take 0.[address] HCl 1-11 [id number] mg by Lukes (CATAPRES) 00:00: 3D mouth 3 Medi valentin 0.3 MG 00 (three) Center tablet times daily . furosemide 2014-08 Yes 80mg Take [address] (LASIX) 40 1-11 by mouth . Jose es MG tablet 00:00: Medical 00 [place] hydrALAZINE 2014-08 Yes 50mg Q.[id number] Take [address] (APRESOLINE 1-11 [id number] by mouth 3 [facility] ) 50 MG 00:00: 3D (three) Medical tablet 00 times Center daily. metoprolol 2014-08 Yes 100mg Q.5D Take [address] (LOPRESSOR) 1-11 mg by [facility]ukes 100 MG 00:00: mouth 2 Medical tablet 00 (two) Center times daily. cloNIDine 2014-08 Yes .3mg Q.[id number] Take 0.[address] HCl 1-11 [id number] mg by [facility]ukes (CATAPRES) 00:00: 3D mouth 3 Medi valentin 0.3 MG 00 (three) Center tablet times daily . furosemide 2014-08 Yes 80mg Take [address] (LASIX) 40 1-11 by mouth . Jose es MG tablet 00:00: [facility] Yes 50mg Q.[id number] Take [address] (APRESOLINE 1-11 [id number] by mouth 3 [facility]ukes ) 50 MG 00:00: 3D (three) Medical tablet 00 times Center daily. metoprolol 2014-08 Yes 100mg Q.5D Take [address] (LOPRESSOR) 1-11 mg by [facility]ukes 100 MG 00:00: mouth 2 Medical tablet 00 (two) Center times daily. cloNIDine 2014-08 Yes .3mg Q.[id number] Take 0.[address] HCl 1-11 [id number] mg by Lukes (CATAPRES) 00:00: 3D mouth 3 Medi valentin 0.3 MG 00 (three) Center tablet times daily . furosemide 2014-08 Yes 80mg Take [address] (LASIX) 40 1-11 by mouth . J[place] es MG tablet 00:00: Medical 00 [place] hydrALAZINE 2014-08 Yes 50mg Q.[id number] Take [address] (APRESOLINE 1-11 [id number] by mouth 3 [facility]ukes ) 50 MG 00:00: 3D (three) Medical tablet 00 times Center daily. metoprolol 2014-08 Yes 100mg Q.5D Take [address] (LOPRESSOR) 1-11 mg by Lukes 100 MG 00:00: mouth 2 Medical tablet 00 (two) Center times daily. cloNIDine 2014-08 Yes .3mg Q.[id number] Take 0.[address] HCl 1-11 [id number] mg by Lukes (CATAPRES) 00:00: 3D mouth 3 Medi valentin 0.3 MG 00 (three) Center tablet times daily . furosemide 2014-08 Yes 80mg Take [address] (LASIX) 40 1-11 by mouth . Jose es MG tablet 00:00: Medical 00 [place] hydrALAZINE 2014-08 Yes 50mg Q.[id number] Take [address] (APRESOLINE 1-11 [id number] by mouth 3 [facility]ukes ) 50 MG 00:00: 3D (three) Medical tablet 00 times Center daily. metoprolol 2014-08 Yes 100mg Q.5D Take [address] (LOPRESSOR) 1-11 mg by [facility]ukes 100 MG 00:00: mouth 2 Medical tablet 00 (two) Center times daily. cloNIDine 2014-08 Yes .3mg Q.[id number] Take 0.[address] HCl 1-11 [id number] mg by Lukes (CATAPRES) 00:00: 3D mouth 3 Medi valentin 0.3 MG 00 (three) Center tablet times daily . furosemide 2014-08 Yes 80mg Take [address] (LASIX) 40 1-11 by mouth . Jose es MG tablet 00:00: Medical 00 Center hydrALAZINE 2014-08 Yes 50mg Q.[id number] Take [address] (APRESOLINE 1-11 [id number] by mouth 3 [facility]ukes ) 50 MG 00:00: 3D (three) Medical tablet 00 times Center daily. metoprolol 2014-08 Yes 100mg Q.5D Take [address] (LOPRESSOR) 1-11 mg by [facility]ukes 100 MG 00:00: mouth 2 Medical tablet 00 (two) Center times daily. Immunizations Ordered Filled Immunization Date Status Comments [facility] e Immunization Name Name SARS-COV-2 COVID-19 2020-11-15 Completed Unive rsity of PFIZER VACCINE 00:00:00 [facility] SARS-COV-2 COVID-19 2020-11-15 Completed Unive rsity of PFIZER VACCINE 00:00:00 [facility] SARS-COV-2 COVID-19 2020-11-15 Completed Unive rsity of PFIZER VACCINE 00:00:00 [facility] SARS-COV-2 COVID-19 2020-10-25 Completed Unive rsity of PFIZER VACCINE 00:00:00 [facility] SARS-COV-2 COVID-19 2020-10-25 Completed Unive rsity of PFIZER VACCINE 00:00:00 [facility] SARS-COV-2 COVID-19 2020-10-25 Completed Unive rsity of PFIZER VACCINE 00:00:00 [facility] SARS-COV-2 COVID-19 2020-10-25 Completed Unive rsity of PFIZER VACCINE 00:00:00 [facility] SARS-COV-2 COVID-19 2020-10-25 Completed Unive rsity of PFIZER VACCINE 00:00:00 [facility] SARS-COV-2 COVID-19 2020-10-25 Completed Unive rsity of PFIZER VACCINE 00:00:00 [facility] Vital Signs Vital Name Observation Time Observation Value Comments Source Systolic blood 2022-07-28 18:00:00 185 mm[Hg] Univer sity of pressure [place] [facility] Diastolic blood 2022-07-28 18:00:00 113 mm[Hg] Unive rsity of pressure [place] [facility] Heart rate 2022-07-28 17:47:00 91 /min [facility] [place] [facility] Respiratory rate 2022-07-28 17:47:00 20 /min Univ ersity of [place] [facility] Oxygen saturation in 2022-07-28 17:47:00 99 /min University of Arterial blood by [facility] [facility] Pulse oximetry Branch Body temperature 2022-07-28 15:54:00 36.67 Chhaya [facility] Body height 2022-07-28 15:54:00 157.5 cm [facility] Body weight 2022-07-28 15:54:00 83.462 kg [facility] BMI 2022-07-28 15:54:00 33.65 kg/m2 [facility] Systolic blood 2021-03-27 08:00:00 182 mm[Hg] [facility] [place] [facility] Diastolic blood 2021-03-27 08:00:00 101 mm[Hg] [facility] [place] [facility] Heart rate 2021-03-27 08:00:00 72 /min [facility] Respiratory rate 2021-03-27 08:00:00 10 /min [facility] Oxygen saturation in 2021-03-27 08:00:00 100 /min [facility] Arterial blood by [facility] Pulse oximetry Branch Body temperature 2021-03-27 04:49:00 37.28 Chhaya [facility] Body height 2021-03-27 04:49:00 157.5 cm [facility] Body weight 2021-03-27 04:49:00 83.462 kg [facility] BMI 2021-03-27 04:49:00 33.65 kg/m2 [facility] Systolic blood 2021-01-15 15:01:00 140 mm[Hg] [facility] [place] [facility] Diastolic blood 2021-01-15 15:01:00 84 mm[Hg] [facility] [place] [facility] Heart rate 2021-01-15 15:01:00 76 /min [facility] Body temperature 2021-01-15 15:01:00 36.28 Chhaya [facility] Respiratory rate 2021-01-15 15:01:00 18 /min [facility] Body height 2021-01-15 15:01:00 157.5 cm [facility] Body weight 2021-01-15 15:01:00 90.719 kg [facility] BMI 2021-01-15 15:01:00 36.58 kg/m2 [facility] Oxygen saturation in 2021-01-15 15:01:00 99 /min [facility] Arterial blood by [facility] Pulse oximetry Branch Systolic blood 2020-11-12 19:02:00 155 mm[Hg] [facility] [place] [facility] Diastolic blood 2020-11-12 19:02:00 95 mm[Hg] [facility] [place] [facility] Heart rate 2020-11-12 19:01:00 79 /min [facility] Respiratory rate 2020-11-12 19:01:00 19 /min [facility] Body height 2020-11-12 19:01:00 167.6 cm [facility] Body weight 2020-11-12 19:01:00 86.002 kg [facility] BMI 2020-11-12 19:01:00 30.60 kg/m2 [facility] Systolic blood 2020-11-12 19:02:00 155 mm[Hg] [facility] [place] [facility] Diastolic blood 2020-11-12 19:02:00 95 mm[Hg] [facility] [place] [facility] Heart rate 2020-11-12 19:01:00 79 /min [facility] Respiratory rate 2020-11-12 19:01:00 19 /min [facility] Body height 2020-11-12 19:01:00 167.6 cm [facility] Body weight 2020-11-12 19:01:00 86.002 kg [facility] BMI 2020-11-12 19:01:00 30.60 kg/m2 [facility] Procedures Procedure Date / Time Performed Performing Clinician Laurel e EKG-12 LEAD 2022-07-28 16:42:07 Akosua Graf [facility] COMP. METABOLIC PANEL 2022-07-28 16:25:00 Akosua Graf [id number] [place] CBC WITH DIFF 2022-07-28 16:25:00 Akosua Graf [facility] CONSENT/REFUSAL FOR 2022-07-28 15:49:58 Doctor Unassigned, No [facility] DIAGNOSIS AND Name [facility] TREATMENT NOTICE OF PRIVACY 2021-03-27 04:39:35 Doctor Unassigned, No [facility] CONSENT/REFUSAL FOR 2021-03-27 04:37:48 Doctor Unassigned, No [facility] [place] DIAGNOSIS AND Name [facility] TREATMENT CONSENT/REFUSAL FOR 2021-01-15 14:58:04 Doctor Unassigned, No [facility] TREATMENT ASSIGNMENT OF BENEFITS 2020-11-12 18:39:16 Doctor Unassigned, No [facility] Plan of Care Planned Activity Planned Date Details Comments Source Future Scheduled 2023-02-15 [facility] Test 11:49:05 malignant neoplasm of colon (procedure) [code = 716800995] Future Scheduled 2023-02-15 [facility] Test 11:49:05 malignant neoplasm of colon (procedure) [code = 863962046] Future Scheduled 2023-02-15 [facility] Test 11:49:05 malignant neoplasm of colon (procedure) [code = 306486360] Future Scheduled 2023-02-15 COVID-19 VACCINE (#1) [facility] Test 11:49:05 [code = COVID-19 VACCINE (#1)] Future Scheduled 2023-02-15 [facility] Test 11:49:05 malignant neoplasm of cervix (procedure) [code = 741145696] Future Scheduled 2023-02-15 BREAST CANCER [facility] Test 11:49:05 SCREENING [code = BREAST CANCER SCREENING] Future Scheduled 2023-02-15 [facility] Test 11:49:05 malignant neoplasm of colon (procedure) [code = 353908019] Future Scheduled 2023-02-15 [facility] Test 11:49:05 malignant neoplasm of colon (procedure) [code = 938642233] Future Scheduled 2023-02-15 SHINGLES VACCINES (1 Met [facility] Test 11:49:05 of 2) [code = SHINGLES VACCINES (1 of 2)] Future Scheduled 2023-02-15 INFLUENZA VACCINE [facility] Test 11:49:05 [code = INFLUENZA VACCINE] Future Scheduled 2022-12-03 BREAST CANCER [facility] Test 20:05:48 SCREENING [code = BREAST CANCER SCREENING] Future Scheduled 2022-12-03 COLONOSCOPY SCREENING [facility] [place] Test 20:05:48 [code = COLONOSCOPY SCREENING] Future Scheduled 2022-12-03 SHINGLES VACCINES (1 [facility] Test 20:05:48 of 2) [code = SHINGLES VACCINES (1 of 2)] Future Scheduled 2022-12-03 INFLUENZA VACCINE Method [facility] Hospital Test 20:05:48 [code = INFLUENZA VACCINE] Future Scheduled 2022-12-03 COVID-19 VACCINE (#1) [facility] Test 20:05:48 [code = COVID-19 VACCINE (#1)] Future Scheduled 2022-12-03 Screening for [facility] Test 20:05:48 malignant neoplasm of cervix (procedure) [code = 523608675] Future Scheduled 2022-12-03 BREAST CANCER [facility] Test 20:05:48 SCREENING [code = BREAST CANCER SCREENING] Future Scheduled 2022-12-03 COLONOSCOPY SCREENING [facility] [place] [facility] Test 20:05:48 [code = COLONOSCOPY SCREENING] Future Scheduled 2022-12-03 SHINGLES VACCINES (1 Met [facility] Test 20:05:48 of 2) [code = SHINGLES VACCINES (1 of 2)] Future Scheduled 2022-12-03 INFLUENZA VACCINE [facility] Test 20:05:48 [code = INFLUENZA VACCINE] Future Scheduled 2022-12-03 COVID-19 VACCINE (#1) [facility] Test 20:05:48 [code = COVID-19 VACCINE (#1)] Future Scheduled 2022-12-03 Screening for [facility] Test 20:05:48 malignant neoplasm of cervix (procedure) [code = 477428097] Future Scheduled 2022-07-03 HEPATITIS B VACCINES [facility] Test 00:15:46 (1 of 3 - 3-dose series) [code = HEPATITIS B VACCINES (1 of 3 - 3-dose series)] Future Scheduled 2022-07-03 COVID-19 VACCINE (#1) [facility] Test 00:15:46 [code = COVID-19 VACCINE (#1)] Future Scheduled 2022-07-03 Pneumococcal Vaccine: [facility] Test 00:15:46 Pediatrics (0 to 5 Years) and At-Risk Patients (6 to 64 Years) (1 - PCV) [code = Pneumococcal Vaccine: Pediatrics (0 to 5 Years) and At-Risk Patients (6 to 64 Years) (1 - PCV)] Future Scheduled 2022-07-03 DIABETES: RETINAL EYE [facility] Test 00:15:46 EXAM [code = DIABETES: RETINAL EYE EXAM] Future Scheduled 2022-07-03 DIABETIC FOOT EXAM [facility] Test 00:15:46 [code = DIABETIC FOOT EXAM] Future Scheduled 2022-07-03 Hepatitis C screening [facility] Test 00:15:46 (procedure) [code = 630153021] Future Scheduled 2022-07-03 SHINGLES VACCINES (1 [facility] Test 00:15:46 of 2) [code = SHINGLES VACCINES (1 of 2)] Future Scheduled 2022-07-03 Screening for [facility] Test 00:15:46 malignant neoplasm of cervix (procedure) [code = 650364115] Future Scheduled 2022-07-03 BREAST CANCER [facility] Test 00:15:46 SCREENING [code = BREAST CANCER SCREENING] Future Scheduled 2022-07-03 COLONOSCOPY SCREENING [facility] Test 00:15:46 [code = COLONOSCOPY SCREENING] Future Scheduled 2022-07-03 INFLUENZA VACCINE [facility] Test 00:15:46 [code = INFLUENZA VACCINE] Future Scheduled 2022-07-03 HEPATITIS B VACCINES [facility] Test 00:15:46 (1 of 3 - 3-dose series) [code = HEPATITIS B VACCINES (1 of 3 - 3-dose series)] Future Scheduled 2022-07-03 COVID-19 VACCINE (#1) [facility] Test 00:15:46 [code = COVID-19 VACCINE (#1)] Future Scheduled 2022-07-03 Pneumococcal Vaccine: [facility] Test 00:15:46 Pediatrics (0 to 5 Years) and At-Risk Patients (6 to 64 Years) (1 - PCV) [code = Pneumococcal Vaccine: Pediatrics (0 to 5 Years) and At-Risk Patients (6 to 64 Years) (1 - PCV)] Future Scheduled 2022-07-03 DIABETES: RETINAL EYE [facility] Test 00:15:46 EXAM [code = DIABETES: RETINAL EYE EXAM] Future Scheduled 2022-07-03 DIABETIC FOOT EXAM [facility] Test 00:15:46 [code = DIABETIC FOOT EXAM] Future Scheduled 2022-07-03 Hepatitis C screening [facility] Test 00:15:46 (procedure) [code = 877790325] Future Scheduled 2022-07-03 SHINGLES VACCINES (1 [facility] Test 00:15:46 of 2) [code = SHINGLES VACCINES (1 of 2)] Future Scheduled 2022-07-03 Screening for [facility] Test 00:15:46 malignant neoplasm of cervix (procedure) [code = 340135557] Future Scheduled 2022-07-03 BREAST CANCER [facility] Test 00:15:46 SCREENING [code = BREAST CANCER SCREENING] Future Scheduled 2022-07-03 COLONOSCOPY SCREENING [facility] Test 00:15:46 [code = COLONOSCOPY SCREENING] Future Scheduled 2022-07-03 INFLUENZA VACCINE [facility] Test 00:15:46 [code = [...] 00:00:00 measurement Medical Center (procedure) [code = 07747600] Future Scheduled 2019-01-[address] [facility] (procedure) [code = 77261275] Future Scheduled 2018-08-[address] [...] Test 00:00:00 (procedure) [code = Medical Center 83265208] Future Scheduled [address] [facility] Test 00:00:00 (procedure) [code = [facility] 34348096] Future Scheduled 2014-06-[address] [...] [facility] Center cervix (procedure) [code = 159707646] Future Scheduled [address] [facility] Test 00:00:00 malignant neoplasm of [facility] Center cervix (procedure) [code = 741159518] Future Scheduled 1989 DTAP/TDAP/TD VACCINES [facility] I [...] 00:00:00 examination Medical Center (regime/therapy) [code = 816316063] Future Scheduled 1980 Urine screening for [facility] Test 00:00:00 protein (procedure) Medical Center [code = 925042594] Future Scheduled 1980 DIABETIC EYE EXAM [facility] Test 00:00:00 [code = DIABETIC EYE Medical Center EXAM] Future Scheduled [address] [facility] Test 00:00:00 examination Medical Center (regime/therapy) [code = 394341740] Future Scheduled 1980 Urine screening for [facility] Test 00:00:00 protein (procedure) Medical Center [code = 559646551] Future Scheduled [address] [facility] Test 00:00:00 [facility] breast (procedure) [code = 032523681] Future Scheduled [address] [facility] Test 00:00:00 [facility] colon (procedure) [code = 283195415] Future Scheduled [address] [facility] Test 00:00:00 malignant neoplasm of [facility] breast (procedure) [code = 677638697] Future Scheduled [address] [facility] Test 00:00:00 malignant neoplasm of [facility] colon (procedure) [code = 330685501] Future Scheduled DIABETES: RETINAL EYE [facility] Test EXAM [code = DIABETES: RETINAL EYE EXAM] Future Scheduled DIABETIC FOOT EXAM [facility] Test [code = DIABETIC FOOT EXAM] Future Scheduled COVID-19 VACCINE (1) [facility] [code = COVID-19 VACCINE (1)] Future Scheduled Hepatitis C screening [facility] Test (procedure) [code = 781294185] Future Scheduled [facility] Test malignant neoplasm of cervix (procedure) [code = 228986589] Future Scheduled BREAST CANCER [facility] Test SCREENING [code = BREAST CANCER [...] Clinicians Facility Department ID 2022-05-26 Outpatient daniel [facility] [id number] [facility] 15:31:14 e [id number] [facility] 2021-06-29 Emergency [facility] [id number] Univers 11:53:58 ity [facility] 2021-06-28 Emergency [facility] [id number] Univers 20:14:34 ity of [facility] 2022-07-28 2022-07-28 Emergency [facility] [id number] Univers 09:58:00 12:12:00 AKOSUA ity [facility] 2022-07-28 2022-07-28 Emergency [facility] [id number] Univers 09:58:00 12:12:00 Akosua PAINTER [id number] ity [facility] 4.2.7.2.686 [facility] [phone] [place] [address] [place] 2021-03-26 2021-03-27 Emergency Yarisumaya, [facility] [id number] Univers 23:56:00 03:30:00 Naga Pulido [place] [id number] ity of [place] 4.2.7.2.686 [facility] [id number] [address] 2021-01-15 2021-01-15 Emergency [facility] [id number] Univers 10:03:00 11:43:00 Jeanna Pulido [place] [id number] i ty of [place] 4.2.7.2.686 [facility] [id number] [address] 2020-12-11 2020-12-11 Outpatient Sea GRAF [facility] [id number] Univers 10:00:00 10:00:00 TONY ity [facility] 2020-11-15 2020-11-15 Outpatient [facility] [id number] Univers 13:05:00 13:05:00 ity [facility] 2020-11-12 2020-11-12 Office Zion [facility] [id number] 13:40:03 14:10:03 Visit Ligia Jonnathan Carlos [id number] [place] 4.2.7.2.686 Professio [id number] [address] 2020-11-12 2020-11-12 Office [facility] [id number] Univers 13:40:03 14:10:03 Visit Conchisl Jonnathan Painter [id number] ity of [place] 4.2.7.2.686 [facility] Professio [id number] Mi dical [address] 2020-11-12 2020-11-12 Outpatient R LIGIA PEDRO [facility] [id number] Univers 14:00:00 14:00:00 LIGIA PEDRO ity [facility] 2020-11-12 2020-11-12 Orders Doctor DUBOSE [id number] Univers 00:00:00 00:00:00 Only Unassigned, KATIE 350.1.13.10 ity of [facility] 4.2.7.2.686 Juan C as [phone] [place] [address] Branch 2020-10-25 2020-10-25 Outpatient [facility] [id number] Univers 12:45:00 12:45:00 ity of [facility] Results Test Description Test Time Test Comments Results Result Comments Source COMP. METABOLIC PANEL (44353) 2022-07-28 16:47:59 Test Item Value Reference Range Interpretation Comme nts NA (test code = 2811198200) 140 mmol/L 135-145 K (test code = 4784034796) 4.4 mmol/L 3.5-5.0 CL (test code = 7936339599) 110 mmol/L 98-108 H CO2 TOTAL (test code = 5804502990) 20 mmol/L 23-31 L AGAP (test code = 4554343398) 2-16 BUN (test code = 5755258997) 26 mg/dL 7-23 H GLUCOSE (test code = 8722351837) 131 mg/dL 70-110 H CREATININE (test code = 2.26 mg/dL 0.50-1.04 H 5197552482) TOTAL BILI (test code = 0.4 mg/dL 0.1-1.9 5289073110) CALCIUM (test code = 6711842890) 8.5 mg/dL 8.6-10.6 L T PROTEIN (test code = 3400833610) 6.9 g/dL 6.3-8.2 ALBUMIN (test code = 1502823834) 3.8 g/dL 3.5-5.0 ALK PHOS (test code = 8235380178) 170 U/L 34-122 H ALTv (test code = 1742-6) 20 U/L 5-35 AST(SGOT) (test code = 8290874877) 27 U/L 13-40 eGFR (test code = 5852935173) mL/min/1.73m2 GARY (test code = GARY) Association [...] tests). Lab Interpretation (test code = Abnormal 27183-3) [facility] WITH [id number] 16:39:19 Test Item Value Reference Range Interpretation Comments WBC (test code = See_Comment [Automated 2466-2) message] The sy stem which generated this result transmitted reference range : 4.30 - 11.10 10*3/?L. The reference range was not used to interpret this result as normal/abnormal . RBC (test code = See_Comment [Automated 111-8) message] The sy stem which generated this [...] RDW-SD (test code = 44.4 fL 39.0-49.9 64897-0) RDW-CV (test code = 14.2 % 12.0-15.5 788-0) PLT (test code = See_Comment [Automated 777-3) message] The sy stem which generated this result transmitted reference range : 166 - 358 10*3/ ?L. The reference r jp was not used to interpret this result as normal/abnormal . MPV (test code = 9.0 fL 9.5-12.9 L 75785-6) NRBC/100 WBC (test See_Comment [Automat ed code = 9302386072) message] The system which generated this result transmitted reference range : 0.0 - 10.0 /100 WBCs. The refer ence range was not u sed to interpret th is result as normal/abnormal . NRBC x10^3 (test code See_Comment [Auto mated = 7258897515) message] The s ystem which generated this result transmitted reference range : 10*3/?L. The reference range was not used to interpret this result as normal/abnormal . GRAN MAT (NEUT) % 53.4 % (test code = 770-8) IMM GRAN % (test code 0.30 % = 3699735054) LYMPH % (test code = 28.0 % 736-9) MONO % (test code = 12.7 % 5905-5) EOS % (test code = 4.7 % 713-8) BASO % (test code = 0.9 % 706-2) GRAN MAT x10^3(ANC) 3.76 10*3/uL 1.88-7.09 (test code = 9910985349) IMM GRAN x10^3 (test 0.00-0.06 code = 3859468535) LYMPH x10^3 (test code 1.97 10*3/uL 1.32-3.29 = 731-0) MONO x10^3 (test code 0.89 10*3/uL 0.33-0.92 = 742-7) EOS x10^3 (test code = 0.33 10*3/uL 0.03-0.39 711-2) BASO x10^3 (test code 0.06 10*3/uL 0.01-0.07 = 704-7) Lab Interpretation Abnormal (test code = 48242-3) [id number]:01:00 Test Item Value Reference Range Interpretation Comments CULTURE (BEAKER) (test No growth in 5 days code = 1095) LUPUS ANTICOAGULANT SCREEN WITH REFLEX TO [id number] 16:08:00 Test Item Value Reference Range Interpretation [...] (BEAKER) (test 45.2 32.0-41.8 H code = 7248465256) [id number] Cindy Chavira MD (BEAKER) (test code = (electronic signature) 2610) HEXAGONAL [id number] 14:08:00 Test Item Value Reference Range Interpretation Comments HEXAGONAL PHOSPHOLIPID (BEAKER) Positive (test code = 1790) BLOOD [id number] 10:01:00 Test Item Value Reference Range Interpretation Comments CULTURE (BEAKER) (test No growth in 5 days code = 1095) DOUBLE-STRANDED DNA (DSDNA) [id number] 05:52:00 Test Item Value Reference Range Interpretation Comments ANTI-DNA DS (BEAKER) (test code = Negative 1055) CARDIOLIPIN ANTIBODIES, IGG AND [id number] 15:01:00 Test Item Value Reference Range Interpretation Comments ANTICARDIOLIPIN IGG ANTIBODY (BEAKER) < GPL <20.0 (test code = 712) ANTICARDIOLIPIN IGM ANTIBODY ([facility]) 2.1 MPL <20.0 (test code = 713) Anticardiolipin IgG Result Interpretation: <20.0 GPL Normal>/= 20.0 GPL PositiveAnticardiolipin IgM Result Interpretation: <20.0 MPL Normal>/= 20.0 MPL PositiveCALCIUM, [id number] 05:12:00 Test Item Value Reference Range Interpretation Comments CALCIUM IONIZED ([facility]) (test 1.01 mmol/L 1.12-1.27 L code = 698) PH, BLOOD ([facility]) (test code = 7.45 1810) POCT-GLUCOSE [id number] 21:30:00 Test Item Value Reference Range Interpretation Comments POC-GLUCOSE METER 116 mg/dL 70-110 H TESTED AT [place] [address] ([facility]) (test code = [facility] 1538) [address] POCT-GLUCOSE [id number] 17:32:00 Test Item Value Reference Range Interpretation Comments POC-GLUCOSE METER 125 mg/dL 70-110 H TESTED AT [place] [address] ([facility]) (test code = [facility] 1538) [address] POCT-GLUCOSE [id number] 11:28:00 Test Item Value Reference Range Interpretation Comments POC-GLUCOSE METER 115 mg/dL 70-110 H TESTED AT [place] [address] ([facility]) (test code = [facility] 1538) [address] POCT-GLUCOSE [id number] 07:41:00 Test Item Value Reference Range Interpretation Comments POC-GLUCOSE METER 108 mg/dL 70-110 TESTED AT [place] [address] ([facility]) (test code = [facility] 1538) [address] [id number] 07:06:00 Test Item Value Reference Range Interpretation Comments MAGNESIUM ([facility]) 1.8 mg/dL 1.6-2.6 Specimen slightly (test code = 627) hemolyzed [id number] 07:06:00 Test Item Value Reference Range Interpretation Comments PHOSPHORUS ([facility]) 2.4 mg/dL 2.3-4.7 Specimen slightly (test code = 604) hemolyzed COMPREHENSIVE METABOLIC [id number] 07:06:00 Test Item Value Reference Range Interpretation [...] APPLICABLE FOR DIALYSIS PATIEN TS. HEPATIC FUNCTION [id number] 07:06:00 Test Item Value Reference Range Interpretation [...] slightly (test code = 347) hemolyzed CALCIUM, [id number] 06:42:00 Test Item Value Reference Range Interpretation Comments CALCIUM IONIZED (BEAKER) (test 1.16 mmol/L 1.12-1.27 code = 698) PH, BLOOD (BEAKER) (test code = 7.42 1810) CBC W/PLT COUNT & AUTO [id number] 05:10:00 Test Item Value Reference Range Interpretation [...] PERCENT (BEAKER) (test code = 2801) POCT-GLUCOSE [id number] 23:12:00 Test Item Value Reference Range Interpretation Comments POC-GLUCOSE METER 95 mg/dL 70-110 TESTED AT [place] [address] ([facility]) (test code = [facility] [address] 1538) POCT-GLUCOSE [id number] 18:51:00 Test Item Value Reference Range Interpretation Comments POC-GLUCOSE METER 118 mg/dL 70-110 H TESTED AT [place] [address] ([facility]) (test code = [facility] 1538) [address] HEMOGLOBIN AND [id number] 16:28:00 Test Item Value Reference Range Interpretation Comments HEMOGLOBIN (BEAKER) (test code = 8.7 GM/DL 11.2-15.7 L 410) HEMATOCRIT (BEAKER) (test code = 27.8 % 34.1-44.9 L 411) POCT-GLUCOSE [id number] 15:00:00 Test Item Value Reference Range Interpretation Comments POC-GLUCOSE METER 140 mg/dL 70-110 H TESTED AT [place] [address] ([facility]) (test code = [facility] 1538) [address] POCT-GLUCOSE [id number] 14:46:00 Test Item Value Reference Range Interpretation Comments POC-GLUCOSE METER 44 mg/dL 70-110 L Notified Sea Amos MD/TESTED AT ([facility]) (test code = [place] [address] [place] 1538) [facility] 7703 0 POCT-GLUCOSE [id number] 13:05:00 Test Item Value Reference Range Interpretation Comments POC-GLUCOSE METER 87 mg/dL 70-110 TESTED AT [place] [address] ([facility]) (test code = JOB Osei [facility] [address] 1538) POCT-GLUCOSE [id number] 11:57:00 Test Item Value Reference Range Interpretation Comments POC-GLUCOSE METER 65 mg/dL 70-110 L Notified Sea Amos MD/TESTED AT ([facility]) (test code = [place] [address] [place] 1538) [facility] 7703 0 VANCOMYCIN LEVEL, [id number] 10:58:00 Test Item Value Reference Range Interpretation Comments VANCOMYCIN TROUGH ([facility]) (test 14.2 ug/mL 10.0-20.0 code = 522) RAD, ABDOMEN/KUB, 1 VIEW [id number] 09:41:00Reason for exam:->abdominal painFINAL REPORT AP abdomen, two images HISTORY: Abdominal pain COMPARISON: 07/28/2013 IMPRESSION:Grossly nonobstructive bowel gas pattern. Intact skeleton. Signed: Vikas Guillen MDReport Verified Date/Time: 07/30/2018 09:41:59 Reading Location: [address] Ortho Consult Reading Room -GLUCOSE [id number] 07:59:00 Test Item Value Reference Range Interpretation Comments POC-GLUCOSE METER 87 mg/dL 70-110 TESTED AT [place] [address] ([facility]) (test code = PAULINEJOSE Osei [facility] [address] 1538) CALCIUM, [id number] 06:53:00 Test Item Value Reference Range Interpretation Comments CALCIUM IONIZED ([facility]) (test 1.12 mmol/L 1.12-1.27 code = 698) PH, BLOOD ([facility]) (test code = 7.44 1810) [id number] 06:38:00 Test Item Value Reference Range Interpretation Comments PHOSPHORUS (BEAKER) (test code = 2.7 mg/dL 2.3-4.7 604) [id number] 06:38:00 Test Item Value Reference Range Interpretation Comments MAGNESIUM (BEAKER) (test code = 1.6 mg/dL 1.6-2.6 627) HEPATIC FUNCTION [id number] 06:38:00 Test Item Value Reference Range Interpretation [...] = 9 U/L 6-55 347) COMPREHENSIVE METABOLIC [id number] 06:38:00 Test Item Value Reference Range Interpretation [...] PATIEN TS. CBC W/PLT COUNT & AUTO [id number] 06:11:00 Test Item Value Reference Range Interpretation [...] PERCENT (BEAKER) (test code = 2801) POCT-GLUCOSE [id number] 21:38:00 Test Item Value Reference Range Interpretation Comments POC-GLUCOSE METER 96 mg/dL 70-110 TESTED AT [place] [address] ([facility]) (test code = [facility] [address] 1538) POCT-GLUCOSE [id number] 18:19:00 Test Item Value Reference Range Interpretation Comments POC-GLUCOSE METER 121 mg/dL 70-110 H TESTED AT [place] [address] ([facility]) (test code = [facility] 1538) [address] T4, [id number] 12:35:00 Test Item Value Reference Range Interpretation Comments FREE T4 ([facility]) (test code = 655) 1.25 ng/dL 0.70-1.48 POCT-GLUCOSE [id number] 12:27:00 Test Item Value Reference Range Interpretation Comments POC-GLUCOSE METER 127 mg/dL 70-[address] [facility] [address] ([facility]) (test code = [facility] 1538) [address] TSH/FREE T4 IF [id number] 12:07:00 Test Item Value Reference Range Interpretation Comments THYROID STIMULATING HORMONE 0.25 uIU/mL 0.35-4.94 L ([facility]) (test code = 772) [id number] 12:07:00 Test Item Value Reference Range Interpretation Comments THYROID STIMULATING HORMONE 0.25 uIU/mL 0.35-4.94 L ([facility]) (test code = 772) LACTIC ACID, VENOUS, WHOLE [id number] 11:35:00 Test Item Value Reference Range Interpretation Comments LACTATE BLOOD VENOUS 0.6 mmol/L 0.5-2.2 Specime n slightly (2) (BEAKER) (test hemolyzed code = 2872) VANCOMYCIN LEVEL, [id number] 07:11:00 Test Item Value Reference Range Interpretation Comments VANCOMYCIN RANDOM (BEAKER) (test 17.9 ug/mL code = 523) Reference Range: No [id number] 07:09:00 Test Item Value Reference Range Interpretation Comments PHOSPHORUS (BEAKER) (test code = 3.9 mg/dL 2.3-4.7 604) [id number] 07:09:00 Test Item Value Reference Range Interpretation Comments MAGNESIUM (BEAKER) (test code = 1.7 mg/dL 1.6-2.6 627) BASIC METABOLIC [id number] 07:09:00 Test Item Value Reference Range Interpretation [...] APPLICABLE FOR DIALYSIS PATIEN TS. HEPATIC FUNCTION [id number] 07:09:00 Test Item Value Reference Range Interpretation [...] code = 10 U/L 6-55 347) TROPONIN [id number] 06:54:00 Test Item Value Reference Range Interpretation Comments TROPONIN I (BEAKER) (test code = 0.08 ng/mL 0.00-0.03 H 397) LACTIC ACID, VENOUS, WHOLE [id number] 06:45:00 Test Item Value Reference Range Interpretation Comments LACTATE BLOOD VENOUS 0.8 mmol/L 0.5-2.2 Specime n slightly (2) (BEAKER) (test hemolyzed code = 2872) CBC W/PLT COUNT & AUTO [id number] 06:00:00 Test Item Value Reference Range Interpretation [...] PERCENT (BEAKER) (test code = 2801) CALCIUM, [id number] 05:58:00 Test Item Value Reference Range Interpretation Comments CALCIUM IONIZED (BEAKER) (test 1.12 mmol/L 1.12-1.27 code = 698) PH, BLOOD (BEAKER) (test code = 7.39 1810) EOSINOPHIL SMEAR, [id number] 20:17:00 Test Item Value Reference Range Interpretation Comments EOSINOPHIL SMEAR, URINE (BEAKER) No EOS seen No EOS seen (test code = 1851) BASIC METABOLIC [id number] 20:01:00 Test Item Value Reference Range Interpretation [...] DIALYSIS PATIEN TS. LACTIC ACID, VENOUS, WHOLE [id number] 19:59:00 Test Item Value Reference Range Interpretation Comments LACTATE BLOOD VENOUS 0.8 mmol/L 0.5-2.2 Specime n slightly (2) (BEAKER) (test hemolyzed code = 2872) CT, BRAIN/STROKE [id number] 19:59:00Stroke Protocol. Phone/Page MD for reporting.Reason for [...] Fink Verified Date/Time: 07/28/2018 19:59:01 Reading Location: [facility] Radiology Reading Room [id number] 19:51:00 Test Item Value Reference Range Interpretation Comments PARTIAL THROMBOPLASTIN TIME 33.1 seconds 22.5-36.0 (BEAKER) (test code = 760) PROTHROMBIN [id number] 19:50:00 Test Item Value Reference Range Interpretation Comments PROTIME (BEAKER) (test code = 15.6 seconds 11.7-14.7 H 759) INR (BEAKER) (test code = 370) 1.2 <=5.9 RECOMMENDED COUMADIN/WARFARIN INR THERAPY RANGESSTANDARD DOSE: 2.0 - 3.0 Includes: PROPHYLAXIS for venous thrombosis, systemic embolization; TREATMENT for venous thrombosis and/or pulmonary embolus.HIGH RISK: Target INR is 2.5-3.5 for patients with mechanical heart valves.HEMOGLOBIN AND [id number] 19:41:00 Test Item Value Reference Range Interpretation Comments HEMOGLOBIN (BEAKER) (test code = 11.3 GM/DL 11.2-15.7 410) HEMATOCRIT (BEAKER) (test code = 35.4 % 34.1-44.9 411) CBC W/PLT COUNT & AUTO [id number] 19:41:00 Test Item Value Reference Range Interpretation [...] PERCENT (BEAKER) (test code = 2801) TROPONIN [id number] 19:26:00 Test Item Value Reference Range Interpretation Comments TROPONIN I (BEAKER) (test code = 0.11 ng/mL 0.00-0.03 H 397) PROTEIN, RANDOM [id number] 19:19:00 Test Item Value Reference Range Interpretation Comments PROTEIN, URINE (BEAKER) (test code 325 mg/dL 0-14 H = 1569) POCT-GLUCOSE [id number] 19:00:00 Test Item Value Reference Range Interpretation Comments POC-GLUCOSE METER 158 mg/dL 70-[address] [facility] 67[address] (BEAKER) (test code = JOB Osei [place] SIEG[place] 1538) [address] CREATININE, RANDOM [id number] 18:52:00 Test Item Value Reference Range Interpretation Comments CREATININE URINE (BEAKER) (test 95.8 mg/dL code = 375) Reference Range: No NormalsSODIUM, RANDOM [id number] 18:52:00 Test Item Value Reference Range Interpretation Comments SODIUM URINE (BEAKER) (test code = 28 meq/L 243) Reference Range: No NormalsURINALYSIS W/ [id number] 18:02:00 Test Item Value Reference Range Interpretation [...] SOURCE(BEAKER) (test code Urine, Clean Catch = 2584) POCT-GLUCOSE [id number] 17:21:00 Test Item Value Reference Range Interpretation Comments POC-GLUCOSE METER 137 mg/dL 70-[address] [facility] 67[address] (BEAKER) (test code = JOB SIEGEL 1538) [address] BASIC METABOLIC [id number] 17:14:00 Test Item Value Reference Range Interpretation [...] APPLICABLE FOR DIALYSIS PATIEN TS. Call results [id number] ACID, VENOUS, WHOLE [id number] 14:19:00 Test Item Value Reference Range Interpretation Comments LACTATE BLOOD VENOUS (2) (BEAKER) 1.1 mmol/L 0.5-2.2 (test code = 2872) THROMBIN [id number] 13:02:00 Test Item Value Reference Range Interpretation Comments THROMBIN TIME (BEAKER) (test code = 17.8 secs 13.8-20.0 550) [id number] 13:01:00 Test Item Value Reference Range Interpretation Comments PROCALCITONIN (BEAKER) (test code 0.09 ng/mL <0.05 H = 3036) SEPSIS RISK (ng/mL)Low: 0.05-0.50Intermediate: 0.51-2.00High: >=2.011:1 MIXING STUDY, [id number] 12:38:00 Test Item Value Reference Range Interpretation Comments PROTIME (BEAKER) (test code = 15.0 seconds 11.7-14.7 H 759) PARTIAL THROMBOPLASTIN TIME 36.1 seconds 22.5-36.0 H (BEAKER) (test code = 760) PT 1/1 MIX (BEAKER) (test code = 14.4 SECS 11.7-14.7 1595) PTT 1/1 MIX (BEAKER) (test code 35.5 SECS 22.5-36.0 = 1596) TROPONIN [id number] 12:01:00 Test Item Value Reference Range Interpretation Comments TROPONIN I (BEAKER) (test code = 0.13 ng/mL 0.00-0.03 H 397) HCG, QUANTITATIVE, [id number] 11:58:00 Test Item Value Reference Range Interpretation Comments GONADOTROPIN, CHORIONIC (HCG) QUANT < mIU/mL 0-10 (BEAKER) (test code = 649) Non- Females: <10 mIU/mL Females: Gestation Age Reference Range(mIU/mL) 0.2-1 Week 5-50 1-2 Weeks 50-500 2-3 Weeks 100-5,000 3-4 Weeks 500-10,000 4-5 Weeks 1,000-50,000 5-6 Weeks 10,000-100,000 6-8 Weeks 15,000- 200,000 2-3 Months 10,000-100,[id number] 11:55:00 Test Item Value Reference Range Interpretation Comments LIPASE (BEAKER) (test code = 749) 31 U/L 8-78 [id number] 11:55:00 Test Item Value Reference Range Interpretation Comments AMYLASE (BEAKER) (test code = 349) 101 U/L 25-125 COMPREHENSIVE METABOLIC [id number] 11:55:00 Test Item Value Reference Range Interpretation [...] NOT APPLICABLE FOR DIALYSIS PATIEN TS. C-REACTIVE [id number] 11:55:00 Test Item Value Reference Range Interpretation Comments C-REACTIVE PROTEIN (BEAKER) (test 0.42 mg/dL 0.00-0.50 code = 676) LACTIC ACID, VENOUS, WHOLE [id number] 11:51:00 Test Item Value Reference Range Interpretation Comments LACTATE BLOOD VENOUS 1.5 mmol/L 0.5-2.2 Specime n slightly (2) (BEAKER) (test hemolyzed code = 1272) [id number] 11:44:00 Test Item Value Reference Range Interpretation Comments PARTIAL THROMBOPLASTIN TIME 35.4 seconds 22.5-36.0 (BEAKER) (test code = 760) CBC W/PLT COUNT & AUTO [id number] 11:30:00 Test Item Value Reference Range Interpretation [...] PERCENT (BEAKER) (test code = 2801) POCT-GLUCOSE [id number] 11:20:00 Test Item Value Reference Range Interpretation Comments POC-GLUCOSE METER 167 mg/dL 70-[address] [facility] 6720 (BEAKER) (test code = JOB SIEGEL 1538) [address] HEMOGLOBIN [id number] 11:15:00 Test Item Value Reference Range Interpretation Comments HEMOGLOBIN A1C (BEAKER) (test code = 5.6 % 4.3-6.1 368) PROTHROMBIN [id number] 08:24:00 Test Item Value Reference Range Interpretation Comments PROTIME (BEAKER) (test code = 15.3 seconds 11.7-14.7 H 759) INR (AMINAH) (test code = 370) 1.2 <=5.9 RECOMMENDED COUMADIN/WARFARIN INR THERAPY RANGESSTANDARD DOSE: 2.0 - 3.0 Includes: PROPHYLAXIS for venous thrombosis, systemic embolization; TREATMENT for venous thrombosis and/or pulmonary embolus.HIGH RISK: Target INR is 2.5-3.5 for patients with mechanical heart valves.RAD, ABDOMEN/KUB, 1 VIEW [id number] 08:13:00Reason for exam:->abdominal painFINAL REPORT INDICATION:Abdominal pain. [...] Ruiz Verified Date/Time: 07/28/2018 08:13:33 Reading Location: [facility] C013X Ortho Consult Reading Room ONIN [id number] 08:11:00 Test Item Value Reference Range Interpretation Comments TROPONIN I (AMINAH) (test code = 0.05 ng/mL 0.00-0.03 H 397) RAD, CHEST, 1 VIEW, NON [id number] 08:10:00Reason for exam:->chest painShould this be performed at the bedside?->YesFINAL REPORT RAD, CHEST, 1 VIEW, NON DEPT INDICATION: chest pain COMPARISON: Prior day's exam FINDINGS: Portable frontal view of the chest. IMPRESSION: Support Lines: None. Lungs and pleura: Clear lungs. No effusion. No pneumothorax.Heart and mediastinum: Unremarkable contours.Additional findings: None. Signed: JR Maya Robert MDReport Verified Date/Time: 07/28/2018 08:10:51 Reading Location: [facility] Radiology Reading Room BASIC METABOLIC [id number] 08:08:00 Test Item Value Reference Range Interpretation [...] S NOT APPLICABLE FOR DIALYSIS PATIEN TS. [id number] 08:04:00 Test Item Value Reference Range Interpretation Comments LIPASE (BEAKER) (test code = 749) 12 U/L 8-78 HEPATIC FUNCTION [id number] 08:04:00 Test Item Value Reference Range Interpretation [...] (test code = 347) hemolyzed COMPLEMENT COMPONENT [id number] 08:03:00 Test Item Value Reference Range Interpretation Comments C4 COMPLEMENT (BEAKER) (test code = 25 mg/dL 15-57 394) COMPLEMENT COMPONENT [id number] 08:03:00 Test Item Value Reference Range Interpretation Comments C3 COMPLEMENT (BEAKER) (test code = 125 mg/dL 82-193 393) POCT-BLOOD GASES, [id number] 07:57:00 Test Item Value Reference Range Interpretation Comments TEMP, CELSIUS-POC 37.0 (BEAKER) (test code = 1834) FIO2-POC (BEAKER) TESTED AT [place] [address] (test code = 1835) [place] [address] PH, ARTERIAL-POC 7.416 7.350-7.450 (BEAKER) (test code [...] L ARTERIAL-POC (BEAKER) (test code = 1841) [id number] 07:57:00 Test Item Value Reference Range Interpretation Comments POC-SODIUM (BEAKER) 146 meq/L 135-[address] [facility] 67[address] (test code = 1542[facility] [place] [address] [id number] 07:57:00 Test Item Value Reference Range Interpretation Comments POC-POTASSIUM 2.7 meq/L 3.6-5.5 L TESTED AT [facility] 6720 (BEAKER) (test code [facility] [address] = 1540) [id number] 07:57:00 Test Item Value Reference Range Interpretation Comments POC-GLUCOSE (BEAKER) 176 mg/dL 70-110 H TESTED AT [place] [address] (test code = 1855) [place] [address] POCT-CALCIUM [id number] 07:57:00 Test Item Value Reference Range Interpretation Comments POC-CALCIUM IONIZED 1.15 mmol/L 1.12-1.27 TESTED A T [place] [address] (BEAKER) (test code = [place] 1536) [address] [id number] 07:57:00 Test Item Value Reference Range Interpretation Comments POC-HEMATOCRIT 38 % 36-45 TESTED AT [place] [address] (BEAKER) (test code = [place] [address] 1857) [id number] 07:57:00 Test Item Value Reference Range Interpretation Comments POC-HEMOGLOBIN 12.9 g/dL 12.0-15.0 TESTED AT [place] [address] (BEAKER) (test code [place] = 1856) [address]YHSOPI AT [place] [address] [place] [address] POCT-LACTIC ACID, [id number] 07:57:00 Test Item Value Reference Range Interpretation Comments POC-LACTIC ACID, 3.3 mmol/L 0.9-1.7 H TESTED AT [place] [address] VENOUS (BEAKER) (test [place] code = 2805) [address] CBC W/PLT COUNT & AUTO [id number] 07:47:00 Test Item Value Reference Range Interpretation [...] % 0-1 PERCENT (BEAKER) (test code = 4956)
[2023-02-15] MEDS ORDERED: HYDROMORPHONE HCL 1 MG/ML INJ ONE ×2 (12:13→14:31)
--- NOTE | 2023-02-15 13:03 | RAD REPORT ---
EXAM DESCRIPTION: Fredo Single View02/15/2023 12:46 pm CLINICAL HISTORY: sob COMPARISON: December 2022 FINDINGS: The lungs appear clear of acute infiltrate. The heart is moderately enlarged IMPRESSION: No acute abnormalities displayed
[2023-02-15 13:04] LABS: Hematocrit 36.7 % (36.0-45.0); Lymphocytes % 14.5 % (15.3-44.8); MCV 82.9 fL (80-100); MPV 6.8 fL (7.6-11.3); RBC Red Blood Cell Count 4.43 M/uL (3.86-4.86)
[2023-02-15 13:07] LABS: Protime INR 1.88
[2023-02-15 13:23] LABS: Potassium 3.6 mEq/L (3.5-5.1); Troponin High Sensitivity 49.8 pg/mL (<58.9)
[2023-02-15 14:28] LABS: Specific Gravity 1.009 (1.005-1.030); Urine Bacteria <20 /HPF (<20); Urine Bilirubin NEGATIVE (Negative); Urine Blood Trace (Negative); Urine Clarity Turbid (Clear); Urine Color Light-Yellow (Yellow); Urine Glucose NEGATIVE (Negative); Urine Mucus Slight /HPF (None Seen); Urine Protein 3+ (Negative); Urine Urobilinogen Normal (Normal)
[2023-02-15] MEDS ORDERED: LABETALOL 20 MG/4ML SYRINGE IV ONE (14:31)
--- NOTE | 2023-02-15 14:57 | RAD REPORT ---
EXAM DESCRIPTION: USExtrem Venous W Compress Bil02/15/2023 2:07 pm CLINICAL HISTORY: Leg pain COMPARISON: none FINDINGS: The common femoral, superficial femoral, greater saphenous, popliteal and posterior tibial veins bilaterally are compressible and demonstrate augmentation. Doppler demonstrates good flow. Grayscale, color and spectral analysis performed on all vessels IMPRESSION: No evidence of deep venous thrombosis involving either lower extremity.
[2023-02-15 15:13] LABS: Barbiturates NEGATIVE (NEGATIVE); Benzodiazepines NEGATIVE (NEGATIVE); Cocaine NEGATIVE (NEGATIVE); METHAMPHETAM NEGATIVE (NEGATIVE); Methadone NEGATIVE (NEGATIVE); Opiates NEGATIVE (NEGATIVE); Phencyclidine NEGATIVE (NEGATIVE); THC Cannibis NEGATIVE (NEGATIVE)
[2023-02-15] MEDS ORDERED: FUROSEMIDE 40 MG/4 ML VIAL ONE (16:00)
--- NOTE | 2023-02-15 16:35 | EDPHYS ---
Physician Documentation [facility] Name: Babs Younger Age: 52 yrs Sex: Female : 1970 Arrival Date: 02/15/2023 Time: 11:46 Bed 15 Private MD: ED Physician Natanael Bell HPI: 02/15 12:05 This 52 yrs old Black Female presents to ER via EMS with complaints of Leg Pain. cp 12:05 The patient presents with pain, that is acute. The complaints affect the right leg and cp left leg. Context:. Onset: The symptoms/episode began/occurred this morning. Associated signs and symptoms: Pertinent positives: shortness of breath, Pertinent negatives fever, vomiting. Severity of symptoms: in the emergency department the symptoms are unchanged, despite EMS interventions. Historical: - Allergies: 11:53 Morphine; kc6 11:53 SHELLFISH; kc6 11:53 Reglan; kc6 - PMHx: 11:53 bowel obstruction; Diabetes - IDDM; ESRD; Hypertension; Lupus; Renal Disease; Seizures; kc6 Atrial fibrillation; Pneumonia; - PSHx: 11:53 Colostomy reversal; kc6 - Immunization history:: Client reports receiving the 2nd dose of the Covid vaccine, Flu vaccine is up to date. - Social history:: Smoking status: Patient denies any tobacco usage or history of. ROS: 12:10 Constitutional: Negative for body aches, chills, fever, poor PO intake. cp 12:10 Cardiovascular: Negative for chest pain, edema, palpitations. cp 12:10 Respiratory: Positive for shortness of breath, at rest. Negative for cough, wheezing. 12:10 Abdomen/GI: Negative for abdominal pain, vomiting, diarrhea, constipation. 12:10 Back: Negative for pain at rest, pain with movement. 12:10 MS/extremity: Positive for pain, of the right leg and left leg, Negative for injury or acute deformity, paresthesias. 12:10 Skin: Negative for rash. 12:10 Neuro: Negative for altered mental status, dizziness, headache, weakness. 12:10 All other systems are negative. Exam: 12:13 Constitutional: The patient appears in no acute distress, alert, awake, cp non-diaphoretic, non-toxic, well developed, well nourished, uncomfortable. 12:13 Head/Face: Normocephalic, atraumatic. cp 12:13 Eyes: Periorbital structures: appear normal, Conjunctiva: normal, no exudate, no injection, Sclera: no appreciated abnormality, Lids and lashes: appear normal, bilaterally. 12:13 ENT: External ear(s): are unremarkable, Nose: is normal, Mouth: Lips: moist, Oral mucosa: moist, Posterior pharynx: is normal, airway is patent, no erythema, no exudate. 12:13 Neck: ROM/movement: is normal, is supple, without pain, no range of motions limitations. 12:13 Chest/axilla: Inspection: normal. 12:13 Cardiovascular: Rate: tachycardic, Rhythm: regular, Edema: ankle edema, that is very mild, JVD: is not appreciated. 12:13 Respiratory: the patient does not display signs of respiratory distress, Respirations: normal, no use of accessory muscles, no retractions, labored breathing, is not present, Breath sounds: are clear throughout, no decreased breath sounds, no stridor, no wheezing. 12:13 Abdomen/GI: Inspection: scar(s), Bowel sounds: active, all quadrants, Palpation: abdomen is soft and non-tender, in all quadrants. 12:13 Skin: cellulitis, is not appreciated, no rash present. 12:13 Neuro: Orientation: to person, place \T\ time. Mentation: is normal, Motor: moves all fours, Sensation: no obvious gross deficits, Abnormal movements: resting tremor, is located in the right hand and left hand. 12:15 ECG was reviewed by the Attending Physician. cp Vital Signs: 11:51 BP 206 / 122; Pulse 117; Resp 12 S; Temp 99.5(O); Pulse Ox 100% on R/A; Weight 90.72 kg kc6 (R); Height 5 ft. 2 in. (R); 12:29 BP 196 / 115; Pulse 109; Resp 19 S; Pulse Ox 100% on R/A; kc6 14:51 BP 169 / 96; Pulse 78; Resp 12 S; Temp 98.1(O); Pulse Ox 100% on R/A; kc6 15:35 BP 177 / 107; Pulse 83; Resp 16 S; Pulse Ox 98% on R/A; kc6 16:16 BP 107 / 101; Pulse 93; Resp 20 S; Pulse Ox 95% on R/A; kc6 11:51 Body Mass Index 36.58 (90.72 kg, 157.48 cm) kc6 MDM: 11:52 Patient medically screened. cp 12:30 Differential diagnosis: cellulitis, open wounds, CHF, DVT, pulmonary edema, pulmonary cp embolism. 16:33 Data reviewed: vital signs, nurses notes, lab test result(s), EKG, radiologic studies, cp plain films, ultrasound. 16:33 Consideration of Admission/Observation Escalation of care including cp admission/observation considered. I considered the following discharge prescriptions or medication management in the emergency department Medications were administered in the Emergency Department. See MAR. Care significantly affected by the following chronic conditions: Diabetes, Hypertension, Chronic Kidney Disease. Counseling: I had a detailed discussion with the patient and/or guardian regarding: the historical points, exam findings, and any diagnostic results supporting the discharge/admit diagnosis, lab results, radiology results, to return to the emergency department if symptoms worsen or persist or if there are any questions or concerns that arise at home. Response to treatment: the patient's symptoms have markedly improved after treatment, and as a result, I will discharge patient. 02/15 11:58 Order name: Basic Metabolic Panel; Complete Time: 14:19 cp 02/15 14:20 Interpretation: Normal except: CL 108; CO2 19; GLUC 125; BUN 31; CRE 2.39; GFR 24. cp 02/15 11:58 Order name: CBC with Diff; Complete Time: 14:19 cp 02/15 14:20 Interpretation: Normal except: HGB 11.7; MCH 26.4; MCHC 31.8; PLT 468; MPV 6.8; RICHA% cp 81.5; LYM% 14.5. 02/15 11:58 Order name: Magnesium; Complete Time: 14:19 cp 02/15 11:58 Order name: NT PRO-BNP; Complete Time: 14:19 cp 02/15 11:58 Order name: PT-INR; Complete Time: 14:19 cp 02/15 11:58 Order name: Troponin HS; Complete Time: 14:19 cp 02/15 12:00 Order name: Urinalysis W/Microscopic; Complete Time: 15:34 cp 02/15 15:34 Interpretation: Normal except: UCLA Turbid; UBLD Trace; UPROT 3+; URBC 5-10. 02/15 12:00 Order name: Lactate w/ 2H reflex if indic.; Complete Time: 14:19 02/15 12:00 Order name: Influenza Screen (a \T\ B); Complete Time: 14:19 02/15 12:00 Order name: COVID-19 SARS RT PCR; Complete Time: 14:19 02/15 14:21 Order name: UDS; Complete Time: 15:34 02/15 15:34 Interpretation: Reviewed. 02/15 11:58 Order name: XRAY Chest (1 view); Complete Time: 14:19 02/15 12:02 Order name: US Extremity Venous W Compression Naveen; Complete Time: 15:34 02/15 15:34 Interpretation: Report reviewed. 02/15 11:58 Order name: EKG; Complete Time: 11:59 02/15 11:58 Order name: Cardiac monitoring; Complete Time: 12:00 02/15 11:58 Order name: EKG - Nurse/Tech; Complete Time: 12:19 02/15 11:58 Order name: IV Saline Lock; Complete Time: 12:58 02/15 11:58 Order name: Labs collected and sent; Complete Time: 12:58 02/15 11:58 Order name: O2 Per Protocol; Complete Time: 12:00 02/15 11:58 Order name: O2 Sat Monitoring; Complete Time: 12:00 cp EC:15 Rate is 102 beats/min. Rhythm is regular. QRS interval is normal. QT interval is cp prolonged at 524 msec. T waves are Inverted in lead aVR. Interpreted by me. Reviewed by me. Administered Medications: 13:00 Drug: HYDROmorphone IVP 1 mg Route: IVP; Site: right upper arm; 6 14:01 Follow up: Response: No adverse reaction; Pain is unchanged, physician notified; RASS: kc6 Alert and Calm (0) 14:28 Drug: HYDROmorphone IVP 1 mg Route: IVP; Site: right upper arm; kc6 16:20 Follow up: Response: No adverse reaction; Pain is decreased; RASS: Alert and Calm (0) [facility] 14:28 Drug: Labetalol IV 20 mg Route: IV; Rate: calculated rate; Infused Over: 2 mins; Site: [facility] right upper arm; 15:52 Follow up: Response: No adverse reaction; Blood pressure is lowered; IV Status: kc6 Completed infusion 15:56 Drug: Furosemide IVP 40 mg Route: IVP; Site: right upper arm; kc6 16:20 Follow up: Response: No adverse reaction kc6 Disposition Summary: 02/15/23 16:35 Discharge Ordered Location: Home cp Problem: new cp Symptoms: have improved cp Condition: Stable cp Diagnosis - Pain in left leg cp - Pain in right leg cp - Shortness of breath cp Followup: cp - With: Private Physician - When: 1 - 2 days - Reason: Recheck today's complaints Discharge Instructions: - Discharge Summary Sheet cp - Musculoskeletal Pain cp - Shortness of Breath, Adult cp Forms: - Medication Reconciliation Form cp - Thank You Letter cp - Antibiotic Education cp - Prescription Opioid Use cp Signatures: Dispatcher [employer] Christiano Martin PA PA cp Apurva Downey RN RN kc6
--- NOTE | 2023-02-15 16:35 | ER ---
Nurse's Notes [facility] Name: Babs Younger Age: 52 yrs Sex: Female : 1970 Arrival Date: 02/15/2023 Time: 11:46 Bed 15 Private MD: Diagnosis: Pain in left leg;Pain in right leg;Shortness of breath Presentation: 02/15 11:51 Chief complaint: EMS states: CHIKI leg pain that started over 24hrs ago, hx of lupus. BGL kc6 en route 149. Coronavirus screen: At this time, the client does not indicate any symptoms associated with coronavirus-19. Ebola Screen: No symptoms or risks identified at this time. Initial Sepsis Screen: Does the patient meet any 2 criteria? No. Patient's initial sepsis screen is negative. Does the patient have a suspected source of infection? No. Patient's initial sepsis screen is negative. Risk Assessment: Do you want to hurt yourself or someone else? Patient reports no desire to harm self or others. Onset of symptoms was February 15, 2023. 11:51 Method Of Arrival: EMS: [facility] 6 11:51 Acuity: ELVA 3 kc6 Triage Assessment: 11:53 General: Appears in no apparent distress. uncomfortable, ill, Behavior is calm, kc6 cooperative, appropriate for age. Pain: Complains of pain in right leg and left leg. EENT: No signs and/or symptoms were reported regarding the EENT system. Neuro: Level of Consciousness is awake, alert, obeys commands, Oriented to person, place, time, situation, Appropriate for age. Cardiovascular: Heart tones S1 S2 present Capillary refill < 3 seconds Rhythm is sinus tachycardia. Respiratory: Airway is patent Trachea midline Respiratory effort is even, unlabored, Respiratory pattern is regular, symmetrical. GI: No signs and/or symptoms were reported involving the gastrointestinal system. : No signs and/or symptoms were reported regarding the genitourinary system. Derm: No signs and/or symptoms reported regarding the dermatologic system. Skin is intact, Skin is pink, warm \T\ dry. Musculoskeletal: No signs and/or symptoms reported regarding the musculoskeletal system. Circulation, motion, and sensation intact. Capillary refill < 3 seconds, Range of motion: intact in all extremities. Historical: - Allergies: 11:53 Morphine; kc6 11:53 SHELLFISH; kc6 11:53 Reglan; kc6 - PMHx: 11:53 bowel obstruction; Diabetes - IDDM; ESRD; Hypertension; Lupus; Renal Disease; Seizures; kc6 Atrial fibrillation; Pneumonia; - PSHx: 11:53 Colostomy reversal; kc6 - Immunization history:: Client reports receiving the 2nd dose of the Covid vaccine, Flu vaccine is up to date. - Social history:: Smoking status: Patient denies any tobacco usage or history of. Screenin:57 [facility] ED Fall Risk Assessment (Adult) History of falling in the last 3 months, kc6 including since admission No falls in past 3 months (0 pts) Confusion or Disorientation No (0 pts) Intoxicated or Sedated No (0 pts) Impaired Gait No (0 pts) Mobility Assist Device Used No (0 pt) Altered Elimination No (0 pt) Score/Fall Risk Level 0 - 2 = Low Risk Oriented to surroundings, Maintained a safe environment, Educated pt \T\ family on fall prevention, incl call for assistance when getting out of bed, Assessed \T\ reinforced patient's understanding of fall precautions, Hourly rounding (assess needs \T\ fall precautionary measures) done. Abuse screen: Denies threats or abuse. Denies injuries from another. Nutritional screening: No deficits noted. Tuberculosis screening: No symptoms or risk factors identified. Assessment: 11:57 Reassessment: please see triage assessment. 6 12:26 Reassessment: pt reports being a hard stick, has needed an US line in the past. Mando kc6 RN \T\ Opal RN notified for assistance. 12:47 Reassessment: LUIS Teresa at bedside attempted to start an IV and get blood work. [facility] 12:57 Reassessment: Patient appears in no apparent distress at this time. No changes from [facility] previously documented assessment. Patient and/or family updated on plan of care and expected duration. Pain level reassessed. Patient is alert, oriented x 3, equal unlabored respirations, skin warm/dry/pink. 13:57 Reassessment: Patient appears in no apparent distress at this time. No changes from [facility] previously documented assessment. Patient and/or family updated on plan of care and expected duration. Pain level reassessed. Patient is alert, oriented x 3, equal unlabored respirations, skin warm/dry/pink. 14:51 Reassessment: Patient appears in no apparent distress at this time. No changes from kc6 previously documented assessment. Patient and/or family updated on plan of care and expected duration. Pain level reassessed. Patient is alert, oriented x 3, equal unlabored respirations, skin warm/dry/pink. 15:35 Reassessment: Patient appears in no apparent distress at this time. No changes from kc6 previously documented assessment. Patient and/or family updated on plan of care and expected duration. Pain level reassessed. Patient is alert, oriented x 3, equal unlabored respirations, skin warm/dry/pink. 16:15 Reassessment: Patient appears in no apparent distress at this time. No changes from kc6 previously documented assessment. Patient and/or family updated on plan of care and expected duration. Pain level reassessed. Patient is alert, oriented x 3, equal unlabored respirations, skin warm/dry/pink. Vital Signs: 11:51 BP 206 / 122; Pulse 117; Resp 12 S; Temp 99.5(O); Pulse Ox 100% on R/A; Weight 90.72 kg kc6 (R); Height 5 ft. 2 in. (R); 12:29 BP 196 / 115; Pulse 109; Resp 19 S; Pulse Ox 100% on R/A; kc6 14:51 BP 169 / 96; Pulse 78; Resp 12 S; Temp 98.1(O); Pulse Ox 100% on R/A; kc6 15:35 BP 177 / 107; Pulse 83; Resp 16 S; Pulse Ox 98% on R/A; kc6 16:16 BP 107 / 101; Pulse 93; Resp 20 S; Pulse Ox 95% on R/A; kc6 11:51 Body Mass Index 36.58 (90.72 kg, 157.48 cm) 6 ED Course: 11:51 Patient arrived in ED. kc6 11:52 Christiano Montenegro PA is PHCP. cp 11:52 Natanael Bell MD is Attending Physician. cp 11:53 Triage completed. kc6 11:53 Arm band placed on. kc6 11:57 Patient has correct armband on for positive identification. Bed in low position. Call [facility] light in reach. Side rails up X2. 12:00 Apurva Downey RN is Primary Nurse. kc6 12:19 COVID-19 SARS RT PCR Sent. kc6 12:19 Influenza Screen (a \T\ B) Sent. kc6 12:22 Missed attempt(s): 20 gauge in right antecubital area. kc6 12:39 Missed attempt(s): 20 gauge in left forearm. kc6 12:48 XRAY Chest (1 view) In Process Unspecified. EDMS 12:55 Initial lab(s) drawn, by ri, sent to lab. Inserted saline lock: 24 gauge in right upper aa5 arm, using aseptic technique. Blood collected. 14:09 US Extremity Venous W Compression Chiki In Process Unspecified. EDMS 16:55 No provider procedures requiring assistance completed. IV discontinued, intact, kc6 bleeding controlled, No redness/swelling at site. Pressure dressing applied. Administered Medications: 13:00 Drug: HYDROmorphone IVP 1 mg Route: IVP; Site: right upper arm; kc6 14:01 Follow up: Response: No adverse reaction; Pain is unchanged, physician notified; RASS: kc6 Alert and Calm (0) 14:28 Drug: HYDROmorphone IVP 1 mg Route: IVP; Site: right upper arm; kc6 16:20 Follow up: Response: No adverse reaction; Pain is decreased; RASS: Alert and Calm (0) kc6 14:28 Drug: Labetalol IV 20 mg Route: IV; Rate: calculated rate; Infused Over: 2 mins; Site: [facility] right upper arm; 15:52 Follow up: Response: No adverse reaction; Blood pressure is lowered; IV Status: kc6 Completed infusion 15:56 Drug: Furosemide IVP 40 mg Route: IVP; Site: right upper arm; kc6 16:20 Follow up: Response: No adverse reaction kc6 Medication: 16:55 VIS not applicable for this client. kc6 Outcome: 16:35 Discharge ordered by MD. cp 16:55 Discharged to home via wheelchair, with friend. kc6 16:55 Condition: improved 16:55 Discharge instructions given to patient, Instructed on discharge instructions, follow up and referral plans. Demonstrated understanding of instructions, follow-up care. 16:55 Patient left the ED. kc6 Signatures: Dispatcher [employer] [facility] Brii Montano RN RN aa5 Page, Christiano, PA PA cp Downey, Apurva, RN RN kc6
[2023-02-15 17:02] VITALS: TEMP 98.1
[2023-02-15 17:05] VITALS: BP 107/101; O2SAT 95
--- NOTE | 2023-02-16 19:12 | EKG ---
Test Date: 2023-02-15 Test Time: 12:07:56 Refrigerator Car Icer: GIANCARLO MEASUREMENT RESULTS: Intervals: Rate: 102 NV: QRSD: 88 QT: 524 QTc: 682 [place]: P: NV: QRS: 65 T: 51 INTERPRETIVE STATEMENTS: Sinus tachycardia Prolonged QT Abnormal ECG Compared to ECG 01/07/2023 09:15:11 Prolonged QT interval now present Atrial premature complex(es) no longer present Left ventricular hypertrophy no longer present Early repolarization no longer present Electronically Signed On 02-16-23 19:10:08 CDT by Dario Ackerman
== END 2023-02-15 16:55 | disposition home or self-care (01) ==
LOC: ER 11:46
DX: M79.605 Pain in left leg (principal); M79.604 Pain in right leg; R06.02 Shortness of breath; Z20.822 Contact with and (suspected) exposure to COVID-19; E11.22 Type 2 diabetes mellitus with diabetic chronic kidney disease; I12.0 Hypertensive chronic kidney disease with stage 5 chronic kidney disease or end stage renal disease; N18.6 End stage renal disease; Z88.5 Allergy status to narcotic agent; Z88.8 Allergy status to other drugs, medicaments and biological substances; Z91.013 Allergy to seafood
CPT/HCPCS: 96365; 93005; 85025; 81001; 80048; 36415; 83735; 85610; 83605; 84484; 83880; 87635; 80307; 87804 ×2; 71045; 93970; 96375; 99284; J1940; J1170 ×2

== ENCOUNTER 2023-05-03 10:37 | Inpatient (IN) | payer OTHER ==
--- OUTSIDE RECORDS SUMMARY | 2023-05-03 10:44 | XMS REPORT | Continuity of Care Document ---
:1970 Author Organization [facility] t Address [address] [place] [address] Care Team Providers Name Role Phone Monico Espinoza DO Primary Care Physician [phone] Attending Clinician Unavailable JEAN CARLOS SANDY Attending Clinician Unavailable [email or web address] Attending Clinician Unavailable RADHA MEDINA Attending Clinician Unavailable AKOSUA GRAF Attending Clinician Unavailable Homar WALTER, Akosua De Santiago Attending Clinician Naga Shepherd MD Attending Clinician Jeanna Shrestha Attending Clinician TONY GRAF Attending Clinician Unavailable Ligia Pedro MD Attending Clinician LIGIA PEDRO Attending Clinician Unavailable LIGIA PEDRO Attending Clinician Unavailable Doctor Unassigned, [place] Attending Clinician Unavailable ABEL LI Attending Clinician Unavailable [email or web address] Admitting Clinician Unavailable ABEL LI Admitting Clinician Unavailable Payers Payer Name Policy Type Policy Number Effective Date Expiration Date Tess patel MEDICAID OF [place] [id number] 2014 00:00:00 [facility] [id number] 2017 DUAL COMPLETE 00:00:00 [facility] - [id number] [facility] - DUAL ELIGIBLE (MEDICARE REPLACEMENT/ADVANT[place] GE - HMO) Problems Condition Condition Condition Status Onset Resolution [...] Disease Active 2018-08 M ethodi arthritis arthritis 04 st 00:00: Hospita 00 l Attention Attention Disease Active 2018-08 Met hodi to to 04 [facility] colostomy colostomy 00:00: Hosp liliana 00 l History of History of Disease Active 2018-08 M ethodi ischemic ischemic 0-17 st colitis colitis 00:00: Hospita 00 l Systemic Systemic Disease Recurre 2017-[address] [facility] lupus lupus nce 1-30 [facility] erythemato erythemato 00:00: Me dical al al 00 [place] Type 2 Type 2 Disease Recurre 2017-[address] [facility] diabetes diabetes nce -30 [facility] mellitus mellitus 00:00: Medica l with with 00 Center kidney kidney complicati complicati on, with on, with long-term long-term current current use of use of insulin insulin Colostomy Colostomy Disease Recurre 2017-[address] complicati complicati nce -30 Gilda kes on on 00:00: [facility] 00 Center Lupus Lupus Disease Recurre 2017-[address] nephritis nephritis nce -30 Luke s 00:00: [facility] 00 [place] Abdominal Abdominal Disease Active 2017-[address] pain pain 30 [facility] 00:00: [facility] 00 [place] Essential Essential Disease Active 2017-[address] hypertensi hypertensi -30 Gilda kes on on 00:00: [facility] [place] bright red bright red Disease Active 2017-[address] blood in blood in 30 [facility] colostomy colostomy 00:00: Medi valentin 00 Center HTN HTN Disease Active 2017-[address] (hypertens (hypertens -30 Gilda kes ion), ion), 00:00: Medical malignant malignant 00 Cent er DAE (acute DAE (acute Disease Active 2017-[address] kidney kidney 30 [facility] injury) injury) 00:00: [facility] 00 [place] Hypernatre Hypernatre Disease Active 2017-[address] charisse charisse 30 [facility] 00:00: [facility] 00 [place] Hypokalemi Hypokalemi Disease Active 2017-[address] a a 30 [facility] 00:00: [facility] 00 [place] Bowel Bowel Disease Active Univers obstructio obstructio 3-20 it y of n n 00:00: [place] [facility] Branch Colonic Colonic Disease Active Univers obstructio obstructio 3-19 it y of n n 00:00: [address] Branch Colostomy Colostomy Disease Active Met hodi in place in place 02-23 00:00: Hospita 00 l Seizure Seizure Disease Active Univers 9-21 ity of 00:00: [address] Branch Obesity Obesity Disease Recurre Univer s (BMI (BMI nce 9-20 ity of 30-39.9) 30-39.9) 00:00: [place] 00 Medical Branch Pulmonary Pulmonary Disease Active Uni vers edema edema 8-28 ity of 00:00: Medical Branch Systemic Systemic Disease Recurre Univ ers lupus lupus nce 2-23 ity of erythemato erythemato 00:00: Young melendez Medical Branch Depression Depression Disease Active U nivers , major , major 2-18 ity of 00:00: Medical Branch DAE (acute DAE (acute Disease Active U nivers kidney kidney 2-12 ity of injury) injury) 00:00: Medical Branch HTN HTN Disease Active Univers (hypertens (hypertens 2-12 it y of ion) ion) 00:00: [place] [facility] Lupus Lupus Disease Active Univers nephritis nephritis 2-11 ity of 00:00: Medical Branch Allergies, Adverse Reactions, Alerts Allergy Allergy Status Severity Reaction(s) Onset Inactive Treating Comm ents Source Name Type Date Date Clinician METOCLOP DRUG Active Swelling 2021-08 Univer s RAMIDE INGREDI 1-30 ity of 00:00: Medical Branch PREDNISO DRUG Active Other-Cmnt 2021-08 Univ ers NE INGREDI 1-30 ity of 00:00: Medical Branch Predniso Propensi Active Other - See 2021-08 Made nikki r Univers ne ty to comments 1- fall out ity of adverse 00:00: and [place] reaction 00 deteriora Medic al s otf Branch teeth/bon es Metoclop Propensi Active Other - See 2021-08 "Like I Univers ramide ty to comments 1-30 was ity of adverse 00:00: having a [place] reaction 00 stroke" Medical s Branch Shellfis Propensi Active 2017-[address] [facility] [facility] ty to 130 [facility] Containi adverse 00:00: Medical ng reaction 00 Center Products s SHELLFIS Allergy Active 2017-[address] H 1-30 [facility] CONTAINI 00:00: Medical NG 00 Center PRODUCTS Shellfis Propensi Active 2017-[address] h ty to 130 [facility] Containi adverse 00:00: Medical ng reaction [...] 00 Medical Branch Morphine Propensi Active Palpitations Methodi ty to 05-13 st adverse 00:00: Hospita reaction 00 l s to drug Family History Family Member Diagnosis Comments Start Date Stop Date Source Natural father [facility] Natural father Kidney disease [facility] Natural mother Uterine cancer Method [facility] Natural mother Cancer [facility] Natural mother Hypertension [facility] Natural sister Diabetes [facility] Social History Social Habit Start Date Stop Date Quantity Comments Source History SDOH [facility] Alcohol Comment Medical C enter Gender identity [facility] Sexual orientation Method [facility] History SDOH [facility] Alcohol Std Drinks [facility] History SDOH [facility] Alcohol Binge Medical [address] ter Exposure to 2022 2022-07-28 Not sure University of SARS-CoV-2 (event) 00:00:00 09:52:00 [facility] History of Social 2019-09-12 2019-09-[address] function 00:00:00 00:00:00 Hospital Alcohol intake 2018-07-28 2018-07-[address] Jose es 00:00:00 00:00:00 non-drinker of Medical Ce nter alcohol (finding) History SDOH 2018-07-28 2018-07-[address] [facility] Alcohol Frequency 00:00:00 00:00:00 Medical Center Tobacco use and 2016-05-13 2016-05-13 Smokeless Universit y of exposure 00:00:00 00:00:00 tobacco non-user [facility] Sex Assigned At [address] Gilda kes 00:00:00 00:00:00 Medical Center Smoking Status Start Date Stop Date Source Never smoked tobacco [facility] Medications Ordered Filled Start Stop Current Ordering Indication Dosage Frequency Signature Comments Components Source Medication Medication Date Date Medication? Clinician (SIG) Name Name hydralAZINE 2021-08- No 10mg 10 mg, Uni vers (APRESOLINE 09-27 Slow IV ity of ) injection 17:15: 17:10 [place] 10 mg 00 :00 ONCE, 1 Medical dose, On Branch Tue07/28/22 at 1115, JIMMY proMETHazin 2021-08- No 25mg [...] mouth ity of (LEXAPRO) 12:12: in the [place] 20 mg 20 morning. Medical tablet Branch HYDROcodone 2021-08 Yes 1{tbl} Take 1 Tab Univers -acetaminop 1-30 by mouth ity of hen (NORCO) 10:59: every 6 Juan C as 10-325 mg 53 (six) Medical tablet hours. Branch HYDROcodone 2021-08- No [id number] 1{tbl} Take 1 U nivers -acetaminop 1-30 1208 tablet by it y of hen [...] Fri Medica l NaCl 0.9% 03/27/21 at [facility] ch (NS) 50 mL 0230, 50 piggyback mL FENTanyl PF 2020- No 100ug 100 mcg, Univers (SUBLIMAZE 03-27 Slow IV ity o f (PF)) 07:30: 06:31 [place], [place] injection 00 :00 ONCE, 1 Medical 100 mcg dose, Fri Branch 03/27/21 at 0230, Routine amoxicillin Yes [id number] 875mg Take 1 Univers 875 mg 5-20 17790 tablet by ity of tablet 00:00: mouth 2 [place] 00 (two) Medical times Branch daily. amoxicillin Yes [id number] 875mg Take 1 Univers 875 mg 5-20 22604 tablet by ity of tablet 00:00: mouth 2 [place] 00 (two) Medical times Branch daily. amoxicillin Yes [id number] 875mg Take 1 Univers 875 mg 5-20 15803 tablet by ity of tablet 00:00: mouth 2 [place] 00 (two) Medical times Branch daily. neomycin-po 2020- No [id number] 3[drp] Place 3 Univers lymyxin-hyd 5-20 05-28 [id number] Drops in it y of rocortisone 00:00: 04:59 right ear [place] 3.5-10,000- 00 :00 4 (four) Medi valentin 1 times Branch mg/mL-unit/ daily for mL-% otic 7 days. susp HYDROCODONE Yes Take by Met hodi /ACETAMINOP -[address] HEN (NORCO 22:02: needed. [...] by mouth. Jose es MG tablet 08:16: [address] pantoprazol 2017-08 Yes 40mg QD Take [address] e 2-04 by mouth [facility] (PROTONIX) 08:16: daily. Medic al 40 MG 44 Center tablet doxazosin 2017-08 Yes 4mg Take [address] (CARDURA) 2 2-04 by mouth. Jose es MG tablet 08:16: [address] pantoprazol 2017-08 Yes 40mg QD Take [address] e 2-04 by mouth [facility] (PROTONIX) 08:16: daily. Medic al 40 MG 44 Center tablet doxazosin 2017-08 Yes 4mg Take [address] (CARDURA) 2 2-04 by mouth. Jose es MG tablet 08:16: [address] pantoprazol 2018-1 Yes 40mg QD Take [address] e 2-04 by mouth [facility] (PROTONIX) 08:16: daily. Medic al 40 MG 44 Center tablet doxazosin 2017-08 Yes 4mg Take [address] (CARDURA) 2 2-04 by mouth. Jose es MG tablet 08:16: [address] pantoprazol 2017-08 Yes 40mg QD Take [address] e 2-04 by mouth [facility]ukes (PROTONIX) 08:16: daily. Medic al 40 MG 44 Center tablet doxazosin 2017-08 Yes 4mg Take [address] (CARDURA) 2 2-04 by mouth. Jose es MG tablet 08:16: [address] pantoprazol 2017-08 Yes 40mg QD Take [address] e 2-04 by mouth [facility]ukes (PROTONIX) 08:16: daily. Medic al 40 MG 44 Center tablet doxazosin 2017-08 Yes 4mg Take [address] (CARDURA) 2 2-04 by mouth. Jose es MG tablet 08:16: [address] pantoprazol 2017-08 Yes 40mg QD Take [address] e 2-04 by mouth [facility]ukes (PROTONIX) 08:16: daily. Medic al 40 MG 44 Center tablet doxazosin 2017-08 Yes 4mg Take [address] (CARDURA) 2 2-04 by mouth. Jose es MG tablet 08:16: [address] pantoprazol 2017-08 Yes 40mg QD Take [address] e 2-04 by mouth [facility]ukes (PROTONIX) 08:16: daily. Medic al 40 MG 44 Center tablet doxazosin 2017-08 Yes 4mg Take [address] (CARDURA) 2 2-04 by mouth. Jose es MG tablet 08:16: [address] pantoprazol 2017-08 Yes 40mg QD Take [address] [facility] e 2-04 by mouth [facility] (PROTONIX) 08:16: daily. Medic al 40 MG 44 Center tablet zolpidem 2017-08 Yes 10mg QD Take [address] (AMBIEN) 10 1-25 by mouth Luke s mg tablet 00:00: nightly. [facility] [place] zolpidem 2017-08 Yes 10mg QD Take [address] (AMBIEN) 10 1-25 by mouth Luke s mg tablet 00:00: nightly. [address] zolpidem 2017-08 Yes 10mg QD Take [address] (AMBIEN) 10 1-25 by mouth Luke s mg tablet 00:00: nightly. [address] zolpidem 2017-08 Yes 10mg QD Take [address] (AMBIEN) 10 1-25 by mouth Luke s mg tablet 00:00: nightly. [address] zolpidem 2017-08 Yes 10mg QD Take [address] (AMBIEN) 10 1-25 by mouth Luke s mg tablet 00:00: nightly. [address] zolpidem 2017-08 Yes 10mg QD Take [address] (AMBIEN) 10 1-25 by mouth Luke s mg tablet 00:00: nightly. [address] zolpidem 2017-08 Yes 10mg QD Take [address] (AMBIEN) 10 1-25 by mouth Luke s mg tablet 00:00: nightly. [address] zolpidem 2017-08 Yes 10mg QD Take [address] (AMBIEN) 10 1-25 by mouth Luke s mg tablet 00:00: nightly. [address] ondansetron 2017-08 Yes DIS [address] [facility] (ZOFRAN-ODT 1-23 THE TONGUE Gilda kes ) 8 MG 00:00: BID Medical disintegrat [place] ing tablet ondansetron 2017-08 Yes DIS [address] [facility] (ZOFRAN-ODT 1-23 THE TONGUE Gilda kes ) 8 MG 00:00: BID Medical disintegrat [place] ing tablet ondansetron 2017-08 Yes DIS [address] [facility] (ZOFRAN-ODT 1-23 THE TONGUE Gilda kes ) 8 MG 00:00: BID Medical disintegrat [place] ing tablet ondansetron 2017-08 Yes DIS [address] [facility] (ZOFRAN-ODT 1-23 THE TONGUE Gilda kes ) 8 MG 00:00: BID Medical disintegrat [place] ing tablet ondansetron 2017-08 Yes DIS [address] [facility] (ZOFRAN-ODT 1-23 THE TONGUE Gilda kes ) 8 MG 00:00: BID Medical disintegrat [place] ing tablet ondansetron 2017-08 Yes DIS 1 [...] l 200 mg 00 Center tablet gabapentin 2018 Yes TK [address] [facility] (NEURONTIN) 0-10 HS PRN [facility] 100 MG 00:00: Medical capsule 00 [place] hydroxychlo 2017-08 Yes TK [address] [facility] roquine 0-10 D [facility] (PLAQUENIL) 00:00: Medica l 200 mg 00 Center tablet gabapentin 2017-08 Yes TK [address] [facility] (NEURONTIN) 0-10 HS PRN [facility] 100 MG 00:00: Medical capsule 00 [place] hydroxychlo 2017-08 Yes TK [address] [facility] roquine 0-10 D [facility] (PLAQUENIL) 00:00: Medica l 200 mg 00 Center tablet gabapentin 2017-08 Yes TK [address] [facility] (NEURONTIN) 0-10 HS PRN [facility] 100 MG 00:00: Medical capsule 00 [place] hydroxychlo 2017-08 Yes TK [address] [facility] roquine 0-10 D [facility] (PLAQUENIL) 00:00: Medica l 200 mg 00 Center tablet gabapentin 2017-08 Yes TK [address] [facility] (NEURONTIN) 0-10 HS PRN [facility] 100 MG 00:00: Medical capsule 00 [place] hydroxychlo 2017-08 Yes TK [address] [facility] roquine 0-10 D [facility] (PLAQUENIL) 00:00: Medica l 200 mg 00 Center tablet gabapentin 2017-08 Yes TK [address] [facility] (NEURONTIN) 0-10 HS PRN [facility] 100 MG 00:00: Medical capsule 00 [place] [facility]08 Yes TK [address] [facility] roquine 0-10 D [facility] (PLAQUENIL) 00:00: Medica l 200 mg 00 Center tablet gabapentin 2017-08 Yes TK [address] [facility] (NEURONTIN) 0-10 HS PRN [facility] 100 MG 00:00: Medical capsule 00 [place] hydroxychlo 2017-08 Yes TK [address] [facility] roquine 0-10 D [facility] (PLAQUENIL) 00:00: Medica l 200 mg 00 Center tablet gabapentin 2017-08 Yes TK [address] [facility] (NEURONTIN) 0-10 HS PRN [facility] 100 MG 00:00: Medical capsule 00 [place] hydroxychlo 2017-08 Yes TK [address] [facility] roquine 0-10 D [facility] (PLAQUENIL) 00:00: Medica l 200 mg 00 Center tablet doxazosin 2018-0 Yes 4mg Take 4 mg Uni vers (CARDURA) 2 3-21 by mouth ity of mg tablet 20:00: daily. [place] [address] Medical Branch metoprolol 2018-0 Yes 100mg Take [...] mouth ity of 10 mg 20:00: daily. [place] [address] Medical Branch doxazosin 2017-0 Yes 4mg Take 4 mg Uni vers (CARDURA) 4 3-21 by mouth ity of mg tablet 20:00: daily. [place] [address] Medical Branch zolpidem 2017-0 Yes 10mg Take [...] mouth ity of mg tablet 20:00: daily. [place] [address] Medical Branch metoprolol 2017-0 Yes 100mg Take [...] mouth ity of 10 mg 20:00: daily. [place] tablet 52 Medical Branch doxazosin 2018-0 Yes 4mg Take 4 mg Uni vers (CARDURA) 4 3-21 by mouth ity of mg tablet 20:00: daily. [place] [address] Medical Branch zolpidem 2018-0 Yes 10mg Take [...] mouth ity of mg tablet 20:00: daily. [place] [address] Medical Branch metoprolol 0 Yes 100mg Take [...] mouth ity of 10 mg 20:00: daily. [place] tablet 52 Medical Branch doxazosin 2017-0 Yes 4mg Take 4 mg Uni vers (CARDURA) 4 3-21 by mouth ity of mg tablet 20:00: daily. [place] [address] Medical Branch zolpidem 2018-0 Yes 10mg Take [...] mouth ity of mg tablet 20:00: daily. [place] [address] Medical Branch metoprolol 2018-0 Yes 100mg Take [...] mouth ity of 10 mg 20:00: daily. [place] tablet Medical Branch doxazosin 2018-0 Yes 4mg Take 4 mg Uni vers (CARDURA) 4 3-21 by mouth ity of mg tablet 20:00: daily. [place] [address] Medical Branch zolpidem 2017-0 Yes 10mg Take [...] mouth ity of mg tablet 20:00: daily. [place] [address] Medical Branch metoprolol 2017-0 Yes 100mg Take [...] mouth ity of 10 mg 20:00: daily. [place] [address] Medical Branch doxazosin 2018-0 Yes 4mg Take 4 mg Uni vers (CARDURA) 4 3-21 by mouth ity of mg tablet 20:00: daily. [place] [address] Medical Branch zolpidem 2018-0 Yes 10mg Take [...] mouth ity of mg tablet 15:00: daily. [place] [address] Medical Branch metoprolol Yes 100mg Take 100 Un aaliyah succinate 3-21 mg by ity of XL (TOPROL 15:00: mouth 2 [place] XL) 100 mg 52 (two) Medical 24 hr times Branch tablet daily. amLODIPine Yes 10mg Take 10 mg U nivers (NORVASC) 3-21 by mouth ity of 10 mg 15:00: daily. [place] [address] Medical Branch doxazosin Yes 4mg Take 4 mg Uni vers (CARDURA) 4 3-21 by mouth ity of mg tablet 15:00: daily. [place] [address] Medical Branch zolpidem Yes 10mg Take 10 [...] -acetaminop 9-24 tablet by ity of hen ([employer]) 00:00: mouth [place] 10-325 mg 00 every 6 Medical tablet (six) Branch hours as needed for Pain (scale 7-10). HYDROcodone 2016-0 Yes 1{tbl} Take 1 Un aaliyah -acetaminop 9-24 tablet by ity of hen ([employer]) 00:00: mouth [place] 10-325 mg 00 every 6 Medical tablet (six) Branch hours as needed for Pain (scale 7-10). HYDROcodone 2016-0 Yes 1{tbl} Take 1 Un aaliyah -acetaminop 9-24 tablet by ity of hen ([employer]) 00:00: mouth [place] 10-325 mg 00 every 6 Medical tablet (six) Branch hours as needed for Pain (scale 7-10). HYDROcodone 2016-0 Yes 1{tbl} Take 1 Un aaliyah -acetaminop 9-24 tablet by ity of hen ([employer]) 00:00: mouth [place] 10-325 mg 00 every 6 Medical tablet (six) Branch hours as needed for Pain (scale 7-10). HYDROcodone 2016-0 Yes 1{tbl} Take 1 Un aaliyah -acetaminop 9-24 tablet by ity of hen ([employer]) 00:00: mouth [place] 10-325 mg 00 every 6 Medical tablet (six) Branch hours as needed for Pain (scale 7-10). HYDROcodone 2015-0 Yes 1{tbl} Take 1 Un aaliyah -acetaminop 9-24 tablet by ity of hen ([employer]) 00:00: mouth [place] 10-325 mg 00 every [...] QHS. ity of 2 mg tablet 00:00: [place] [facility] [place]W [place] ER Yes TK ONE C Uni vers 10 mg CR12 8-22 PO Q 12 H ity of 00:00: PRN. [facility] Branch tiZANidine Yes TK 1 T PO Un aaliyah (ZANAFLEX) 8-22 QHS. ity of 2 mg tablet 00:00: [place] [facility] ER Yes TK ONE C Uni vers 10 mg CR12 8-22 PO Q 12 H ity of 00:00: PRN. [facility] tiZANidine Yes TK 1 T PO Un aaliyah (ZANAFLEX) 8-22 QHS. ity of 2 mg tablet 00:00: [facility] Yes TK ONE C Uni vers 10 mg CR12 8-22 PO Q 12 H ity of 00:00: PRN. [facility] Branch tiZANidine Yes TK 1 T PO Un aaliyah (ZANAFLEX) 8-22 QHS. ity of 2 mg tablet 00:00: [facility] Yes TK ONE C Uni vers 10 mg CR12 8-22 PO Q 12 H ity of 00:00: PRN. [facility] Branch tiZANidine Yes TK 1 T PO Un aaliyah (ZANAFLEX) 8-22 QHS. ity of 2 mg tablet 00:00: [place] [facility] [place]W [place] ER Yes TK ONE C Uni vers 10 mg CR12 8-22 PO Q 12 H ity of 00:00: PRN. [place] [facility] Branch tiZANidine Yes TK 1 T PO Un aaliyah (ZANAFLEX) 8-22 QHS. ity of 2 mg tablet 00:00: [address] [place] ER Yes TK ONE C Uni vers 10 mg CR12 8-22 PO Q 12 H ity of 00:00: PRN. [place] 00 Medical Branch furosemide Yes TK 1 T [...] Branch ONE TOUCH 2015-0 Yes U TID. Law pedro DELICA 33 6-12 ity of gauge Misc 00:00: [place] 00 Medical Branch ONE TOUCH 2016-0 Yes U TID. Nicholaser s FANIICA 33 6-12 ity of gauge Misc 00:00: [...] gabapentin 2016-0 Yes 800mg Take 800 Un aaliayh (NEURONTIN) 4-13 mg by ity of 800 [...] needed for Nausea and Vomiting (N/V). ondansetron 0 Yes 4mg Take 4 mg U nivers (ZOFRAN-ODT 3-28 by mouth ity of ) 4 mg 00:00: every 8 [place] disintegrat 00 (eight) Medic al ing tablet hours as Branc h needed for Nausea and Vomiting (N/V). ondansetron 0 Yes 4mg Take 4 mg U nivers (ZOFRAN-ODT 3-28 by mouth ity of ) 4 mg 00:00: every 8 [place] disintegrat 00 (eight) Medic al ing tablet hours as Branc h needed for Nausea and Vomiting (N/V). ondansetron 0 Yes 4mg Take 4 mg U nivers (ZOFRAN-ODT 3-28 by mouth ity of ) 4 mg 00:00: every 8 [place] disintegrat 00 (eight) Medic al ing tablet hours as Branc h needed for Nausea and Vomiting (N/V). ONEUCH 0 Yes Univers ULTRA TEST 2-21 ity of strip 00:00: [place] 00 [facility] Branch [facility] Yes Univers ULTRA TEST 2-21 ity of strip 00:00: [place] 00 Medical Branch ONETOUCH 2015-0 Yes Univers ULTRA TEST 2-21 ity of strip 00:00: [place] 00 [facility] Branch ONETOUCH 2015-0 Yes Univers ULTRA TEST 2-21 ity of strip 00:00: [place] 00 Medical Branch [facility] 2015-0 Yes Univers ULTRA TEST 2-21 ity of strip 00:00: [place] 00 Medical Branch [facility] Yes Univers ULTRA TEST 2-21 ity of strip 00:00: [place] 00 [facility] amLODIPine 2014-08 Yes 10mg Take [address] (NORVASC) 2-11 by mouth. [facility] 10 MG 00:00: Medical tablet 00 [place] amLODIPine 2014-08 Yes 10mg Take [address] (NORVASC) 2-11 by mouth. [facility] 10 MG 00:00: Medical tablet 00 [place] amLODIPine 2014-08 Yes 10mg Take [address] (NORVASC) 2-11 by mouth. [facility] 10 MG 00:00: Medical tablet 00 [place] amLODIPine 2015-1 Yes 10mg Take [address] (NORVASC) 2-11 by mouth. [facility] 10 MG 00:00: Medical tablet 00 [place] amLODIPine 2014-08 Yes 10mg Take [address] (NORVASC) 2-11 by mouth. [facility] 10 MG 00:00: Medical tablet 00 [place] amLODIPine 2014-08 Yes 10mg Take [address] (NORVASC) 2-11 by mouth. [facility] 10 MG 00:00: Medical tablet 00 [place] amLODIPine 2014-08 Yes 10mg Take [address] (NORVASC) 2-11 by mouth. [facility] 10 MG 00:00: Medical tablet 00 [place] amLODIPine 2014-08 Yes 10mg Take [address] (NORVASC) 2-11 by mouth. [facility] 10 MG 00:00: Medical tablet 00 [place] cloNIDine 2014-08 Yes .3mg Q.[id number] Take 0.[address] [address] HCl 1-11 [id number] mg by [facility]ukes (CATAPRES) 00:00: 3D mouth 3 Medi valentin 0.3 MG 00 (three) Center tablet times daily . furosemide 2014-08 Yes 80mg Take [address] (LASIX) 40 1-11 by mouth . Jose es MG tablet 00:00: Medical 00 [place] hydrALAZINE 2014-08 Yes 50mg Q.[id number] Take [address] [facility] (APRESOLINE 1-11 [id number] by mouth 3 [facility]ukes ) 50 MG 00:00: 3D (three) Medical tablet 00 times Center daily. metoprolol 2014-08 Yes 100mg Q.5D Take [address] (LOPRESSOR) 1-11 mg by [facility]ukes 100 MG 00:00: mouth 2 Medical tablet 00 (two) Center times daily. cloNIDine 2014-08 Yes .3mg Q.[id number] Take 0.[address] HCl 1-11 [id number] mg by [facility]ukes (CATAPRES) 00:00: 3D mouth 3 Medi valentin 0.3 MG 00 (three) Center tablet times daily . furosemide 2014-08 Yes 80mg Take [address] (LASIX) 40 1-11 by mouth . Jose es MG tablet 00:00: Medical 00 [place] hydrALAZINE 2014-08 Yes 50mg Q.[id number] Take [address] (APRESOLINE 1-11 [id number] by mouth 3 [facility]ukes ) 50 MG 00:00: 3D (three) Medical tablet 00 times Center daily. metoprolol 2014-08 Yes 100mg Q.5D Take [address] (LOPRESSOR) 1-11 mg by [facility]ukes 100 MG 00:00: mouth 2 Medical tablet 00 (two) Center times daily. cloNIDine 2014-08 Yes .3mg Q.[id number] Take 0.[address] HCl 1-11 [id number] mg by [facility]ukes (CATAPRES) 00:00: 3D mouth 3 Medi valentin 0.3 MG 00 (three) Center tablet times daily . furosemide 2014-08 Yes 80mg Take [address] (LASIX) 40 1-11 by mouth . Jose es MG tablet 00:00: Medical 00 [place] hydrALAZINE 2014-08 Yes 50mg Q.[id number] Take [address] (APRESOLINE 1-11 [id number] by mouth 3 [facility] ) 50 MG 00:00: 3D (three) Medical tablet 00 times Center daily. metoprolol 2014-08 Yes 100mg Q.5D Take [address] (LOPRESSOR) 1-11 mg by [facility]ukes 100 MG 00:00: mouth 2 Medical tablet 00 (two) Center times daily. cloNIDine 2014-08 Yes .3mg Q.[id number] Take 0.[address] HCl 1-11 [id number] mg by [facility] (CATAPRES) 00:00: 3D mouth 3 Medi valentin 0.3 MG 00 (three) Center tablet times daily . furosemide 2014-08 Yes 80mg Take [address] (LASIX) 40 1-11 by mouth . Jose es MG tablet 00:00: Medical 00 [place] hydrALAZINE 2014-08 Yes 50mg Q.[id number] Take [address] (APRESOLINE 1-11 [id number] by mouth 3 [facility] ) 50 MG 00:00: 3D (three) Medical tablet 00 times Center daily. metoprolol 2014-08 Yes 100mg Q.5D Take [address] (LOPRESSOR) 1-11 mg by [facility] 100 MG 00:00: mouth 2 Medical tablet 00 (two) Center times daily. cloNIDine 2014-08 Yes .3mg [id number] Take 0.[address] [facility] HCl 1-11 [id number] [facility] by [facility] (CATAPRES) 00:00: 3D mouth 3 Medi valentin 0.3 MG 00 (three) Center tablet times daily . furosemide 2014-08 Yes 80mg Take [address] (LASIX) 40 1-11 by mouth . Jose es MG tablet 00:00: Medical 00 [place] hydrALAZINE 2014-08 Yes 50mg Q.[id number] Take [address] [facility] (APRESOLINE 1-11 [id number] by mouth 3 [facility] ) 50 MG 00:00: 3D (three) Medical tablet 00 times Center daily. metoprolol 2014-08 Yes 100mg Q.5D Take [address] (LOPRESSOR) 1-11 mg by [facility] 100 MG 00:00: mouth 2 Medical tablet 00 (two) Center times daily. cloNIDine 2014-08 Yes .3mg Q.[id number] Take 0.[address] [facility] HCl 1-11 [id number] mg by [facility] (CATAPRES) 00:00: 3D mouth 3 Medi valentin 0.3 MG 00 (three) Center tablet times daily . furosemide 2014-08 Yes 80mg Take [address] (LASIX) 40 1-11 by mouth . Jose es MG tablet 00:00: Medical 00 [place] hydrALAZINE 2014-08 Yes 50mg Q.[id number] Take [address] [facility] (APRESOLINE 1-11 [id number] by mouth 3 [facility] ) 50 MG 00:00: 3D (three) Medical tablet 00 times Center daily. metoprolol 2014-08 Yes 100mg Q.5D Take [address] (LOPRESSOR) 1-11 mg by [facility] 100 MG 00:00: mouth 2 Medical tablet 00 (two) Center times daily. cloNIDine 2014-08 Yes .3mg Q.[id number] Take 0.[address] [facility] HCl 1-11 [id number] [facility] by [facility] (CATAPRES) 00:00: 3D mouth 3 Medi valentin 0.3 MG 00 (three) Center tablet times daily . furosemide 2014-08 Yes 80mg Take [address] (LASIX) 40 1-11 by mouth . Jose es MG tablet 00:00: Medical 00 [place] hydrALAZINE 2014-08 Yes 50mg Q.[id number] Take [address] [facility] (APRESOLINE 1-11 [id number] by mouth 3 [facility] ) 50 MG 00:00: 3D (three) Medical tablet 00 times Center daily. metoprolol 2014-08 Yes 100mg Q.5D Take [address] (LOPRESSOR) 1-11 [facility] 100 MG 00:00: mouth 2 Medical tablet 00 (two) Center times daily. cloNIDine 2014-08 Yes .3mg Q.[id number] Take 0.[address] [facility] HCl 1-11 [id number] [facility] (CATAPRES) 00:00: 3D mouth 3 Medi valentin 0.3 MG 00 (three) Center tablet times daily . furosemide 2014-08 Yes 80mg Take [address] (LASIX) 40 1-11 by mouth . Jose es MG tablet 00:00: Medical 00 Center hydrALAZINE 2014-08 Yes 50mg Q.[id number] Take [address] [facility] (APRESOLINE 1-11 [id number] by mouth 3 [facility] ) 50 MG 00:00: 3D (three) Medical tablet 00 times Center daily. metoprolol 2014-08 Yes 100mg Q.5D Take [address] (LOPRESSOR) 1-11 [facility] 100 MG 00:00: mouth 2 Medical tablet 00 (two) Center times daily. Immunizations Ordered Filled Immunization Date Status Comments [facility] Immunization Name Name SARS-COV-2 COVID-19 2020-11-15 Completed Unive rsity of PFIZER VACCINE 00:00:00 [facility] SARS-COV-2 COVID-19 2020-11-15 Completed Unive rsity of PFIZER VACCINE 00:00:00 [facility] SARS-COV-2 COVID-19 2020-11-15 Completed Unive rsity of PFIZER VACCINE 00:00:00 [facility] SARS-COV-2 COVID-19 2020-10-25 Completed Unive rsity of PFIZER VACCINE 00:00:00 [facility] SARS-COV-2 COVID-19 2020-10-25 Completed Unive rsity of PFIZER VACCINE 00:00:00 [facility] SARS-COV-2 COVID-19 2020-10-25 Completed Unive rsity of PFIZER VACCINE 00:00:00 [facility] SARS-COV-2 COVID-19 2020-10-25 Completed Unive rsity of PFIZER VACCINE 00:00:00 [facility] SARS-COV-2 COVID-19 2020-10-25 Completed Unive rsity of PFIZER VACCINE 00:00:00 [facility] SARS-COV-2 COVID-19 2020-10-25 Completed Unive rsity of PFIZER VACCINE 00:00:00 [facility] Vital Signs Vital Name Observation Time Observation Value Comments Source Systolic blood 2022-07-28 18:00:00 185 mm[Hg] Univer sity of pressure [facility] Diastolic blood 2022-07-28 18:00:00 113 mm[Hg] Unive rsity of pressure [facility] Heart rate 2022-07-28 17:47:00 91 /min Universi ty of [facility] Respiratory rate 2022-07-28 17:47:00 20 /min [facility] Oxygen saturation in 2022-07-28 17:47:00 99 /min University of Arterial blood by [facility] Pulse oximetry Branch Body temperature 2022-07-28 15:54:00 36.67 Chhaya Univ ers[facility] Body height 2022-07-28 15:54:00 157.5 cm [facility] Body weight 2022-07-28 15:54:00 83.462 kg [facility] BMI 2022-07-28 15:54:00 33.65 kg/m2 Universi ty of [facility] Branch Systolic blood 2021-03-27 08:00:00 182 mm[Hg] Univer sity of pressure [facility] Diastolic blood 2021-03-27 08:00:00 101 mm[Hg] Unive rsity of pressure [facility] Heart rate 2021-03-27 08:00:00 72 /min [facility] Respiratory rate 2021-03-27 08:00:00 10 /min [facility] Oxygen saturation in 2021-03-27 08:00:00 100 /min University of Arterial blood by [facility] Pulse oximetry Branch Body temperature 2021-03-27 04:49:00 37.28 Chhaya [facility] Body height 2021-03-27 04:49:00 157.5 cm [facility] Body weight 2021-03-27 04:49:00 83.462 kg [facility] BMI 2021-03-27 04:49:00 33.65 kg/m2 Universi ty of [facility] Branch Systolic blood 2021-01-15 15:01:00 140 mm[Hg] Univer [facility] Diastolic blood 2021-01-15 15:01:00 84 mm[Hg] Unive rsity of pressure [facility] Branch Heart rate 2021-01-15 15:01:00 76 /min Universi ty of [facility] Body temperature 2021-01-15 15:01:00 36.28 Chhaya [facility] Respiratory rate 2021-01-15 15:01:00 18 /min Univ ersity of [facility] Branch Body height 2021-01-15 15:01:00 157.5 cm [facility]i [facility] Body weight 2021-01-15 15:01:00 90.719 kg [facility] BMI 2021-01-15 15:01:00 36.58 kg/m2 [facility] Oxygen saturation in 2021-01-15 15:01:00 99 /min University of Arterial blood by [facility] Pulse oximetry Branch Systolic blood 2020-11-12 19:02:00 155 mm[Hg] Univer sity of pressure [facility] Branch Diastolic blood 2020-11-12 19:02:00 95 mm[Hg] [facility] Heart rate 2020-11-12 19:01:00 79 /min Universi ty of [facility] Respiratory rate 2020-11-12 19:01:00 19 /min Univ ersity of [facility] Body height 2020-11-12 19:01:00 167.6 cm [facility] Body weight 2020-11-12 19:01:00 86.002 kg [facility] BMI 2020-11-12 19:01:00 30.60 kg/m2 [facility] Systolic blood 2020-11-12 19:02:00 155 mm[Hg] [facility] Diastolic blood 2020-11-12 19:02:00 95 mm[Hg] Unive rsity of pressure [facility] Branch Heart rate 2020-11-12 19:01:00 79 /min [facility] Respiratory rate 2020-11-12 19:01:00 19 /min [facility] Body height 2020-11-12 19:01:00 167.6 cm [facility] Body weight 2020-11-12 19:01:00 86.002 kg [facility] BMI 2020-11-12 19:01:00 30.60 kg/m2 [facility] Procedures Procedure Date / Time Performed Performing Clinician Sourc e EKG-12 LEAD 2022-07-28 16:42:07 Akosua Graf [facility] COMP. METABOLIC PANEL 2022-07-28 16:25:00 Akosua Graf [facility] ([id number]) [facility] CBC WITH DIFF 2022-07-28 16:25:00 Akosua Graf [facility] CONSENT/REFUSAL FOR 2022-07-28 15:49:58 [facility] T[facility] NOTICE OF PRIVACY 2021-03-27 04:39:35 Doctor Unassigned, No [facility] PRACTICES [facility] CONSENT/REFUSAL FOR 2021-03-27 04:37:48 Doctor [facility]igned, [facility] CONSENT/REFUSAL FOR 2021-01-15 14:58:04 [facility]igned, [facility] TREAT[facility] ASSIGNMENT OF BENEFITS 2020-11-12 18:39:16 Doctor Unassigned, No [facility] Plan of Care Planned Activity Planned Date Details Comments Source Future Scheduled 2023-05-02 Screening for [facility] Test 13:38:52 malignant neoplasm of colon (procedure) [code = 230575763] Future Scheduled 2023-05-02 Screening for [facility] Test 13:38:52 malignant neoplasm of colon (procedure) [code = 318617931] Future Scheduled 2023-05-02 Screening for [facility] Test 13:38:52 malignant neoplasm of colon (procedure) [code = 280331066] Future Scheduled 2023-05-02 COVID-19 VACCINE (#1) [facility] Test 13:38:52 [code = COVID-19 VACCINE (#1)] Future Scheduled 2023-05-02 Screening for [facility] Test 13:38:52 malignant neoplasm of cervix (procedure) [code = 200649300] Future Scheduled 2023-05-02 BREAST CANCER [facility] Test 13:38:52 SCREENING [code = BREAST CANCER SCREENING] Future Scheduled 2023-05-02 Screening for [facility] Test 13:38:52 malignant neoplasm of colon (procedure) [code = 255876889] Future Scheduled 2023-05-02 Screening for [facility] Test 13:38:52 malignant neoplasm of colon (procedure) [code = 578459335] Future Scheduled 2023-05-02 SHINGLES VACCINES (1 [facility] 13:38:52 of 2) [code = SHINGLES VACCINES (1 of 2)] Future Scheduled 2023-05-02 INFLUENZA [facility]ACCINE (#[facility]) [facility] 13:38:52 [code = INFLUENZA VACCINE (#1)] Future Scheduled 2023-02-15 BREAST CANCER [facility] Test 11:49:05 SCREENING [code = BREAST CANCER SCREENING] Future Scheduled 2023-02-15 Screening for [facility] Test 11:49:05 malignant neoplasm of colon (procedure) [code = 425868107] Future Scheduled 2023-02-15 Scre[facility] for [facility] Test 11:49:05 malignant neoplasm of colon (procedure) [code = 458785220] Future Scheduled 2023-02-15 SHINGLES VACCINES (1 Met [facility] Test 11:49:05 of 2) [code = SHINGLES VACCINES (1 of 2)] Future Scheduled 2023-02-15 INFLUENZA VACCINE [facility] Test 11:49:05 [code = INFLUENZA VACCINE] Future Scheduled 2023-02-15 Screening for [facility] Test 11:49:05 malignant neoplasm of colon (procedure) [code = 897238907] Future Scheduled 2023-02-15 Screening for [facility] Test 11:49:05 malignant neoplasm of colon (procedure) [code = 388657666] Future Scheduled 2023-02-15 Scre[facility] Test 11:49:05 malignant neoplasm of colon (procedure) [code = 032850545] Future Scheduled 2023-02-15 COVID-19 [facility]ACCINE (#1[facility] 11:49:05 [code = COVID-19 VACCINE (#1)] Future Scheduled 2023-02-15 Screening for [facility] Test 11:49:05 malignant neoplasm of cervix (procedure) [code = 206735359] Future Scheduled 2022-12-03 Screening for [facility] Test 20:05:48 malignant neoplasm of cervix (procedure) [code = 983676551] Future Scheduled 2022-12-03 BREAST CANCER [facility] Test 20:05:48 SCREENING [code = BREAST CANCER SCREENING] Future Scheduled 2022-12-03 COLONOSCOPY SCREENING [facility] Test 20:05:48 [code = COLONOSCOPY SCREENING] Future Scheduled 2022-12-03 SHINGLES VACCINES (1 Met [facility] Test 20:05:48 of 2) [code = SHINGLES VACCINES (1 of 2)] Future Scheduled 2022-12-03 INFLUENZA VACCINE Method [facility] Test 20:05:48 [code = INFLUENZA VACCINE] Future Scheduled 2022-12-03 COVID-19 VACCINE (#1) [facility] Test 20:05:48 [code = COVID-19 VACCINE (#1)] Future Scheduled 2022-12-03 Screening for [facility] Test 20:05:48 malignant neoplasm of cervix (procedure) [code = 952790715] Future Scheduled 2022-12-03 BREAST CANCER [facility] Test 20:05:48 SCREENING [code = BREAST CANCER SCREENING] Future Scheduled 2022-12-03 COLONOSCOPY SCREENING [facility] Test 20:05:48 [code = COLONOSCOPY SCREENING] Future Scheduled 2022-12-03 SHINGLES VACCINES (1 [facility] Test 20:05:48 of 2) [code = SHINGLES VACCINES (1 of 2)] Future Scheduled 2022-12-03 INFLUENZA VACCINE Method [facility] Test 20:05:48 [code = INFLUENZA VACCINE] Future Scheduled 2022-12-03 COVID-19 VACCINE (#1) [facility] Test 20:05:48 [code = COVID-19 VACCINE (#1)] Future Scheduled 2022-07-03 HEPATITIS B VACCINES Met [facility] Test 00:15:46 (1 of 3 - 3-dose series) [code = HEPATITIS B VACCINES (1 of 3 - 3-dose series)] Future Scheduled 2022-07-03 COVID-19 VACCINE (#1) [facility] Test 00:15:46 [code = COVID-19 VACCINE (#1)] Future Scheduled 2022-07-03 Pneumococcal Vaccine: [facility] Test 00:15:46 Pediatrics (0 to 5 Years) and At-Risk Patients (6 to 64 Years) (1 - PCV) [code = Pneumococcal Vaccine: Pediatrics (0 to 5 Years) and At-Risk Patients (6 to 64 Years) (1 - PCV)] Future Scheduled 2022-07-03 DIABETES: RETINAL EYE [facility] Test 00:15:46 EXAM [code = DIABETES: RETINAL EYE EXAM] Future Scheduled 2022-07-03 DIABETIC FOOT EXAM [facility] Test 00:15:46 [code = DIABETIC FOOT EXAM] Future Scheduled 2022-07-03 Hepatitis C screening [facility] Test 00:15:46 (procedure) [code = 289869874] Future Scheduled 2022-07-03 SHINGLES VACCINES (1 Met [facility] Test 00:15:46 of 2) [code = SHINGLES VACCINES (1 of 2)] Future Scheduled 2022-07-03 Screening for [facility] Test 00:15:46 malignant neoplasm of cervix (procedure) [code = 833304247] Future Scheduled 2022-07-03 BREAST CANCER [facility] Test 00:15:46 SCREENING [code = BREAST CANCER SCREENING] Future Scheduled 2022-07-03 COLONOSCOPY SCREENING [facility] Test 00:15:46 [code = COLONOSCOPY SCREENING] Future Scheduled 2022-07-03 INFLUENZA VACCINE Method [facility] Test 00:15:46 [code = INFLUENZA VACCINE] Future Scheduled 2022-07-03 HEPATITIS B VACCINES [facility] Test 00:15:46 (1 of 3 - 3-dose series) [code = HEPATITIS B VACCINES (1 of 3 - 3-dose series)] Future Scheduled 2022-07-03 COVID-19 VACCINE (#1) [facility] Test 00:15:46 [code = COVID-19 VACCINE (#1)] Future Scheduled 2022-07-03 Pneumococcal Vaccine: [facility] Test 00:15:46 Pediatrics (0 to 5 Years) and At-Risk Patients (6 to 64 Years) (1 - PCV) [code = Pneumococcal Vaccine: Pediatrics (0 to 5 Years) and At-Risk Patients (6 to 64 Years) (1 - PCV)] Future Scheduled 2022-07-03 DIABETES: RETINAL EYE [facility] Test 00:15:46 EXAM [code = DIABETES: RETINAL EYE EXAM] Future Scheduled 2022-07-03 DIABETIC FOOT EXAM [facility] Test 00:15:46 [code = DIABETIC FOOT EXAM] Future Scheduled 2022-07-03 Hepatitis C screening [facility] Test 00:15:46 (procedure) [code = 893526780] Future Scheduled 2022-07-03 SHINGLES VACCINES (1 Met [facility] Test 00:15:46 of 2) [code = SHINGLES VACCINES (1 of 2)] Future Scheduled 2022-07-03 Screening for [facility] Test 00:15:46 malignant neoplasm of cervix (procedure) [code = 151143502] Future Scheduled 2022-07-03 BREAST CANCER [facility] Test 00:15:46 SCREENING [code = BREAST CANCER SCREENING] Future Scheduled 2022-07-03 COLONOSCOPY SCREENING [facility] Test 00:15:46 [code = COLONOSCOPY SCREENING] Future Scheduled 2022-07-03 INFLUENZA VACCINE [facility] Test 00:15:46 [code = INFLUENZA VACCINE] [...] A1c [facility]00 [facility] (procedure) [code = 72008162] Future Scheduled 2019-01-[address] [facility] Test 00:00:00 [facility] (procedure) [code = 00784911] Future Scheduled 2018-08-[address] [...] [facility] Test 00:00:00 (procedure) [code = [facility] 30262311] Future Scheduled [address] Test 00:00:00 (procedure) [code = [facility] 78696213] Future Scheduled 2014-06-[address] [...] Jose es Test 00:00:[address] [facility] [code = 080266603] Future Scheduled [address] [facility] Test 00:00:[address] [facility] cerv[facility] (procedure) [code = 561331668] Future Scheduled 1989 DTAP/TDAP/TD VACCINES CH I [...] 00:00:00 examination Medical Center (regime/therapy) [code = 394471591] Future Scheduled 1980 Urine screening for [facility] Test 00:00:00 protein (procedure) [facility] Center [code = 630551058] Future Scheduled 1980 DIABETIC EYE EXAM [facility] Test 00:00:00 [code = DIABETIC EYE Medical Center EXAM] Future Scheduled [address] [facility] Test 00:00:00 examination [facility] Center (regime/therapy) [code = 325143072] Future Scheduled 1980 Urine screening for [facility] Test 00:00:00 protein (procedure) Medical Center [code = 924800437] Future Scheduled [address] [facility] Test 00:00:00 malignant neoplasm of [facility] Center breast (procedure) [code = 876992031] Future Scheduled [address] [facility] Test 00:00:00 malignant neoplasm of [facility] Center colon (procedure) [code = 378379398] Future Scheduled [address] [facility] Test 00:00:00 malignant neoplasm of [facility] Center breast (procedure) [code = 033753399] Future Scheduled [address] [facility] Test 00:00:00 malignant neoplasm of [facility]ica [facility] Center colon (procedure) [code = 024130807] Future Scheduled DIABETES: [facility]INAL [facility] EXAM [code = DIABETES: RETINAL EYE EXAM] Future Scheduled DIABETIC FOOT EXAM [facility] Test [code = DIABETIC FOOT EXAM] Future Scheduled COVID-19 [facility]ACCINE (1) [facility] [code = COVID-19 VACCINE (1)] Future Scheduled [facility] (procedure) [code = 247842977] Future Scheduled Scre[facility] Test malignant neoplasm of cervix (procedure) [code = 853374106] Future Scheduled BREAST CANCER [facility] Test SCREENING [code = BREAST CANCER [...] Clinicians Facility Department ID 2022-05-26 Outpatient daniel [facility] [id number] [facility] 15:31:14 e [id number] [facility] 2021-06-29 Emergency [facility] [id number] [facility]28 [facility] [id number] Univers 20:14:34 [facility] 2023-04-28 2023-04-28 Outpatient GC_GCBZW_Ka PRIV PRIV [id number] [facility] 00:00:00 00:00:00 diyala_S [id number] Medic al 2023-04-15 2023-04-15 Outpatient GC_GCBZW_Ka PRIV PRIV [id number] [facility] 00:00:00 00:00:00 diyala_S [id number] Medic al 2023-04-12 2023-04-12 [facility] [id number] Univers 10:30:00 10:30:00 RADHA linares f [facility] 2022-07-28 2022-07-28 Emergency [facility] [id number] Univers 09:58:00 12:12:00 AKOSUA [facility] 2022-07-28 2022-07-28 Emergency [facility] [id number] Univers 09:58:00 12:12:00 Akosua De Santiago [place] [id number] ity of [place] 4.2.7.2.686 [facility] [id number] [address] 2021-03-26 2021-03-27 Emergency [facility], [facility] [id number] Univers 23:56:00 03:30:00 Naga Pedro Emmett [id number] ity of [place] [id number] [facility] [id number] [address] 2021-01-15 2021-01-15 Emergency [facility] [id number] Univers 10:03:00 11:43:00 Jeanna S Emmett [id number] i ty of [place] 4.2.7.2.686 [facility] [id number] [address] 2020-12-11 2020-12-11 Outpatient Sea GRAF [facility] [id number] Univers 10:00:00 10:00:00 TONY ity of [facility] 2020-11-15 2020-11-15 Outpatient [facility] [id number] Univers 13:05:00 13:05:00 ity [facility] 2020-11-12 2020-11-12 Office [facility] [id number] Univers 13:40:03 14:10:03 Visit Stefaniahil T Emmett [id number] ity of [place] 4.2.7.2.686 [place] Profess[place] [id number] Az dical [address] 2020-11-12 2020-11-12 Office [facility] [id number] 13:40:03 14:10:03 Visit Strahil T Emmett [id number] [place] 4.2.7.2.686 Professio [id number] [address] 2020-11-12 2020-11-12 Outpatient R LIGIA PEDRO [facility] [id number] Univers 14:00:00 14:00:00 LIGIA PEDRO ity of [facility] 2020-11-12 2020-11-12 Orders Doctor GRACY [id number] Univers 00:00:00 00:00:00 Only Unassigned, KATIE [id number] ity of [facility] 4.2.7.2.686 Juan C as [phone] [place] [address] Branch 2020-10-25 2020-10-25 Outpatient [facility] [id number] Univers 12:45:00 12:45:00 ity [facility] Results Test Description Test Time Test Comments Results Result Comments Source COMP. METABOLIC PANEL (72569) 2022-07-28 16:47:59 Test Item Value Reference Range Interpretation Comme nts NA (test code = 9411565491) 140 mmol/L 135-145 K (test code = 8935143396) 4.4 mmol/L 3.5-5.0 CL (test code = 4382246908) 110 mmol/L 98-108 H CO2 TOTAL (test code = 2338586387) 20 mmol/L 23-31 L AGAP (test code = 8048996164) 2-16 BUN (test code = 4345517888) 26 mg/dL 7-23 H GLUCOSE (test code = 6430292557) 131 mg/dL 70-110 H CREATININE (test code = 2.26 mg/dL 0.50-1.04 H 5038481149) TOTAL BILI (test code = 0.4 mg/dL 0.1-1.3 2982779441) CALCIUM (test code = 0846183191) 8.5 mg/dL 8.6-10.6 L T PROTEIN (test code = 3752698089) 6.9 g/dL 6.3-8.2 ALBUMIN (test code = 4276267786) 3.8 g/dL 3.5-5.0 ALK PHOS (test code = 3054933338) 170 U/L 34-122 H ALTv (test code = 1742-6) 20 U/L 5-35 AST(SGOT) (test code = 6321943660) 27 U/L 13-40 eGFR (test code = 9784235917) mL/min/1.73m2 GARY (test code = GARY) Association [...] tests). Lab Interpretation (test code = Abnormal 05020-6) [facility] WITH [id number] 16:39:19 Test Item Value Reference Range Interpretation Comments WBC (test code = See_Comment [Automated 9017-2) message] The sy stem which generated this result transmitted reference range : 4.30 - 11.10 10*3/?L. The reference range was not used to interpret this result as normal/abnormal . RBC (test code = See_Comment [Automated 432-3) message] The sy stem which generated this [...] RDW-SD (test code = 44.4 fL 39.0-49.9 66050-3) RDW-CV (test code = 14.2 % 12.0-15.5 788-0) PLT (test code = See_Comment [Automated 777-3) message] The sy stem which generated this result transmitted reference range : 166 - 358 10*3/ ?L. The reference r jp was not used to interpret this result as normal/abnormal . MPV (test code = 9.0 fL 9.5-12.9 L 81115-3) NRBC/100 WBC (test See_Comment [Automat ed code = 1350837509) message] The system which generated this result transmitted reference range : 0.0 - 10.0 /100 WBCs. The refer ence range was not u sed to interpret th is result as normal/abnormal . NRBC x10^3 (test code See_Comment [Auto mated = [id number]) message] The s ystem which generated this result transmitted reference range : 10*3/?L. The reference range was not used to interpret this result as normal/abnormal . GRAN MAT (NEUT) % 53.4 % (test code = 770-8) IMM GRAN % (test code 0.30 % = 8893447142) LYMPH % (test code = 28.0 % 736-9) MONO % (test code = 12.7 % 5905-5) EOS % (test code = 4.7 % 713-8) BASO % (test code = 0.9 % 706-2) GRAN MAT x10^3(ANC) 3.76 10*3/uL 1.88-7.09 (test code = 3071976522) IMM GRAN x10^3 (test 0.00-0.06 code = 8453867866) LYMPH x10^3 (test code 1.97 10*3/uL 1.32-3.29 = 731-0) MONO x10^3 (test code 0.89 10*3/uL 0.33-0.92 = 742-7) EOS x10^3 (test code = 0.33 10*3/uL 0.03-0.39 711-2) BASO x10^3 (test code 0.06 10*3/uL 0.01-0.07 = 704-7) Lab Interpretation Abnormal (test code = 30076-1) [id number]:01:00 Test Item Value Reference Range Interpretation Comments CULTURE (BEAKER) (test No growth in 5 days code = 1095) LUPUS ANTICOAGULANT SCREEN WITH REFLEX TO [id number] 16:08:00 Test Item Value Reference Range Interpretation Comments DRVV SCREEN RATIO 1.55 <1.20 H (BEAKER) (test code = 2707) DRVV CONFIRM RATIO 0.93 (test code = 2709) DRVV NORMALIZED RATIO 1.67 <1.20 H (test code = 2710) DRVV INTERPRETATION Positive screen for (BEAKER) (test code = Lupus Anticoagulant 3058) with hexagonal phospholipid confirmation. Suggest repeat testing in 12 weeks and when patient not receiving anticoagulant therapy. PROTIME (BEAKER) (test 15.0 seconds 11.7-14.7 H code = 759) INR (BEAKER) (test code 1.2 <=5.9 = 370) PARTIAL THROMBOPLASTIN 36.1 seconds 22.5-36.0 H TIME (BEAKER) (test code = 760) PTT-LA (BEAKER) (test 45.2 32.0-41.8 H code = 4324499179) [id number] Cindy Chavira MD (BEAKER) (test code = (electronic signature) 2610) HEXAGONAL [id number] 14:08:00 Test Item Value Reference Range Interpretation Comments HEXAGONAL PHOSPHOLIPID (BEAKER) Positive (test code = 1790) BLOOD [id number] 10:01:00 Test Item Value Reference Range Interpretation Comments CULTURE (BEAKER) (test No growth in 5 days code = 1095) DOUBLE-STRANDED DNA (DSDNA) [id number] 05:52:00 Test Item Value Reference Range Interpretation Comments ANTI-DNA DS (BEAKER) (test code = Negative 1055) CARDIOLIPIN ANTIBODIES, IGG AND [id number] 15:01:00 Test Item Value Reference Range Interpretation Comments ANTICARDIOLIPIN IGG ANTIBODY ([facility]) < GPL <20.0 (test code = 712) ANTICARDIOLIPIN IGM ANTIBODY ([facility]) 2.1 MPL <20.0 (test code = 713) Anticardiolipin IgG Result Interpretation: <20.0 GPL Normal>/= 20.0 GPL PositiveAnticardiolipin IgM Result Interpretation: <20.0 MPL Normal>/= 20.0 MPL PositiveCALCIUM, [id number] 05:12:00 Test Item Value Reference Range Interpretation Comments CALCIUM IONIZED ([facility]) (test 1.01 mmol/L 1.12-1.27 L code = 698) PH, BLOOD ([facility]) (test code = 7.45 1810) POCT-GLUCOSE [id number] 21:30:00 Test Item Value Reference Range Interpretation Comments POC-GLUCOSE METER 116 mg/dL 70-110 H TESTED AT [place] [address] ([facility]) (test code = [facility] 1538) [address] POCT-GLUCOSE [id number] 17:32:00 Test Item Value Reference Range Interpretation Comments POC-GLUCOSE METER 125 mg/dL 70-110 H TESTED AT [place] [address] ([facility]) (test code = [facility] 1538) [address] POCT-GLUCOSE [id number] 11:28:00 Test Item Value Reference Range Interpretation Comments POC-GLUCOSE METER 115 mg/dL 70-110 H TESTED AT [place] [address] ([facility]) (test code = [facility] 1538) [address] POCT-GLUCOSE [id number] 07:41:00 Test Item Value Reference Range Interpretation Comments POC-GLUCOSE METER 108 mg/dL 70-110 TESTED AT [place] [address] ([facility]) (test code = [facility] 1538) [address] [id number] 07:06:00 Test Item Value Reference Range Interpretation Comments MAGNESIUM ([facility]) 1.8 mg/dL 1.6-2.6 Specimen slightly (test code = 627) hemolyzed [id number] 07:06:00 Test Item Value Reference Range Interpretation Comments PHOSPHORUS (BEAKER) 2.4 mg/dL 2.3-4.7 Specimen slightly (test code = 604) hemolyzed COMPREHENSIVE METABOLIC [id number] 07:06:00 Test Item Value Reference Range Interpretation [...] APPLICABLE FOR DIALYSIS PATIEN TS. HEPATIC FUNCTION [id number] 07:06:00 Test Item Value Reference Range Interpretation [...] slightly (test code = 347) hemolyzed CALCIUM, [id number] 06:42:00 Test Item Value Reference Range Interpretation Comments CALCIUM IONIZED (BEAKER) (test 1.16 mmol/L 1.12-1.27 code = 698) PH, BLOOD (BEAKER) (test code = 7.42 1810) CBC W/PLT COUNT & AUTO [id number] 05:10:00 Test Item Value Reference Range Interpretation [...] PERCENT (BEAKER) (test code = 2801) POCT-GLUCOSE [id number] 23:12:00 Test Item Value Reference Range Interpretation Comments POC-GLUCOSE METER 95 mg/dL 70-110 TESTED AT [place] [address] [facility] (test code = JOB Ose[facility] [address] 1538) POCT-GLUCOSE [id number] 18:51:00 Test Item Value Reference Range Interpretation Comments POC-GLUCOSE METER 118 mg/dL 70-110 H TESTED AT [facility] 6720 [facility] 1538) [address] HEMOGLOBIN AND [id number] 16:28:00 Test Item Value Reference Range Interpretation Comments HEMOGLOBIN (BEAKER) (test code = 8.7 GM/DL 11.2-15.7 L 410) HEMATOCRIT (BEAKER) (test code = 27.8 % 34.1-44.9 L 411) POCT-GLUCOSE [id number] 15:00:00 Test Item Value Reference Range Interpretation Comments POC-GLUCOSE METER 140 mg/dL 70-110 H TESTED AT [facility] 6720 ([facility]) (test code = JOB Osei [facility] 1538) [address] POCT-GLUCOSE [id number] 14:46:00 Test Item Value Reference Range Interpretation Comments POC-GLUCOSE METER 44 mg/dL 70-110 L Notified R Dandre WALTER/TESTED AT ([facility]) (test code = [place] [address] [place] 1538) [facility] [address] 0 POCT-GLUCOSE [id number] 13:05:00 Test Item Value Reference Range Interpretation Comments POC-GLUCOSE METER 87 mg/dL 70-110 TESTED AT [place] [id number] ([facility]) (test code = JOB Osei [facility] [address] 1538) POCT-GLUCOSE [id number] 11:57:00 Test Item Value Reference Range Interpretation Comments POC-GLUCOSE METER 65 mg/dL 70-110 L Notified Sea Amos MD/TESTED AT ([facility]) (test code = [address] 1538) [facility] [address] VANCOMYCIN LEVEL, [id number] 10:58:00 Test Item Value Reference Range Interpretation Comments VANCOMYCIN TROUGH ([facility]) (test 14.2 ug/mL 10.0-20.0 code = 522) RAD, ABDOMEN/KUB, 1 VIEW [id number] 09:41:00Reason for exam:->abdominal painFINAL REPORT AP abdomen, two images HISTORY: Abdominal pain COMPARISON: 07/28/2013 IMPRESSION:Grossly nonobstructive bowel gas pattern. Intact skeleton. Signed: Vikas Guillen MDReport Verified Date/Time: 07/30/2018 09:41:59 Reading Location: [facility] C013X Ortho Consult Reading Room -GLUCOSE [id number] 07:59:00 Test Item Value Reference Range Interpretation Comments POC-GLUCOSE METER 87 mg/dL 70-110 TESTED AT [place] [address] ([facility]) (test code = JOB Ose[place] [facility] [address] 1538) CALCIUM, [id number] 06:53:00 Test Item Value Reference Range Interpretation Comments CALCIUM IONIZED (BEAKER) (test 1.12 mmol/L 1.12-1.27 code = 698) PH, BLOOD (BEAKER) (test code = 7.44 1810) [id number] 06:38:00 Test Item Value Reference Range Interpretation Comments PHOSPHORUS (BEAKER) (test code = 2.7 mg/dL 2.3-4.7 604) [id number] 06:38:00 Test Item Value Reference Range Interpretation Comments MAGNESIUM (BEAKER) (test code = 1.6 mg/dL 1.6-2.6 627) HEPATIC FUNCTION [id number] 06:38:00 Test Item Value Reference Range Interpretation [...] = 9 U/L 6-55 347) COMPREHENSIVE METABOLIC [id number] 06:38:00 Test Item Value Reference Range Interpretation [...] PATIEN TS. CBC W/PLT COUNT & AUTO [id number] 06:11:00 Test Item Value Reference Range Interpretation [...] PERCENT (BEAKER) (test code = 2801) POCT-GLUCOSE [id number] 21:38:00 Test Item Value Reference Range Interpretation Comments POC-GLUCOSE METER 96 mg/dL 70-110 TESTED AT [place] [address] ([facility]) (test code = [facility] [address] 1538) POCT-GLUCOSE [id number] 18:19:00 Test Item Value Reference Range Interpretation Comments POC-GLUCOSE METER 121 mg/dL 70-110 H TESTED AT [place] [address] ([facility]) (test code = [facility] 1538) [address] T4, [id number] 12:35:00 Test Item Value Reference Range Interpretation Comments FREE T4 ([facility] (test code = 655) 1.25 ng/dL 0.70-1.48 POCT-GLUCOSE [id number] 12:27:00 Test Item Value Reference Range Interpretation Comments POC-GLUCOSE METER 127 mg/dL 70-110 H TESTED AT [place] [address] ([facility]) (test code = [facility] 1538) [address] TSH/FREE T4 IF [id number] 12:07:00 Test Item Value Reference Range Interpretation Comments THYROID STIMULATING HORMONE 0.25 uIU/mL 0.35-4.94 L (BEAKER) (test code = 772) [id number] 12:07:00 Test Item Value Reference Range Interpretation Comments THYROID STIMULATING HORMONE 0.25 uIU/mL 0.35-4.94 L (BEAKER) (test code = 772) LACTIC ACID, VENOUS, WHOLE [id number] 11:35:00 Test Item Value Reference Range Interpretation Comments LACTATE BLOOD VENOUS 0.6 mmol/L 0.5-2.2 Specime n slightly (2) (BEAKER) (test hemolyzed code = 3012) VANCOMYCIN LEVEL, [id number] 07:11:00 Test Item Value Reference Range Interpretation Comments VANCOMYCIN RANDOM (BEAKER) (test 17.9 ug/mL code = 523) Reference Range: No [id number] 07:09:00 Test Item Value Reference Range Interpretation Comments PHOSPHORUS (BEAKER) (test code = 3.9 mg/dL 2.3-4.7 604) [id number] 07:09:00 Test Item Value Reference Range Interpretation Comments MAGNESIUM (BEAKER) (test code = 1.7 mg/dL 1.6-2.6 627) BASIC METABOLIC [id number] 07:09:00 Test Item Value Reference Range Interpretation [...] APPLICABLE FOR DIALYSIS PATIEN TS. HEPATIC FUNCTION [id number] 07:09:00 Test Item Value Reference Range Interpretation [...] code = 10 U/L 6-55 347) TROPONIN [id number] 06:54:00 Test Item Value Reference Range Interpretation Comments TROPONIN I (BEAKER) (test code = 0.08 ng/mL 0.00-0.03 H 397) LACTIC ACID, VENOUS, WHOLE [id number] 06:45:00 Test Item Value Reference Range Interpretation Comments LACTATE BLOOD VENOUS 0.8 mmol/L 0.5-2.2 Specime n slightly (2) (BEAKER) (test hemolyzed code = 2282) CBC W/PLT COUNT & AUTO [id number] 06:00:00 Test Item Value Reference Range Interpretation [...] PERCENT (BEAKER) (test code = 2801) CALCIUM, [id number] 05:58:00 Test Item Value Reference Range Interpretation Comments CALCIUM IONIZED (BEAKER) (test 1.12 mmol/L 1.12-1.27 code = 698) PH, BLOOD (BEAKER) (test code = 7.39 1810) EOSINOPHIL SMEAR, [id number] 20:17:00 Test Item Value Reference Range Interpretation Comments EOSINOPHIL SMEAR, URINE (BEAKER) No EOS seen No EOS seen (test code = 1851) BASIC METABOLIC [id number] 20:01:00 Test Item Value Reference Range Interpretation [...] DIALYSIS PATIEN TS. LACTIC ACID, VENOUS, WHOLE [id number] 19:59:00 Test Item Value Reference Range Interpretation Comments LACTATE BLOOD VENOUS 0.8 mmol/L 0.5-2.2 Specime n slightly (2) (BEAKER) (test hemolyzed code = 2872) CT, BRAIN/STROKE [id number] 19:59:00Stroke Protocol. Phone/Page MD for reporting.Reason for [...] MDReport Verified Date/Time: 07/28/2018 19:59:01 Reading Location: [facility] Radiology Reading Room [id number] 19:51:00 Test Item Value Reference Range Interpretation Comments PARTIAL THROMBOPLASTIN TIME 33.1 seconds 22.5-36.0 (BEAKER) (test code = 760) PROTHROMBIN [id number] 19:50:00 Test Item Value Reference Range Interpretation Comments PROTIME (BEAKER) (test code = 15.6 seconds 11.7-14.7 H 759) INR (BEAKER) (test code = 370) 1.2 <=5.9 RECOMMENDED COUMADIN/WARFARIN INR THERAPY RANGESSTANDARD DOSE: 2.0 - 3.0 Includes: PROPHYLAXIS for venous thrombosis, systemic embolization; TREATMENT for venous thrombosis and/or pulmonary embolus.HIGH RISK: Target INR is 2.5-3.5 for patients with mechanical heart valves.HEMOGLOBIN AND [id number] 19:41:00 Test Item Value Reference Range Interpretation Comments HEMOGLOBIN (BEAKER) (test code = 11.3 GM/DL 11.2-15.7 410) HEMATOCRIT (BEAKER) (test code = 35.4 % 34.1-44.9 411) CBC W/PLT COUNT & AUTO [id number] 19:41:00 Test Item Value Reference Range Interpretation [...] PERCENT (BEAKER) (test code = 2801) TROPONIN [id number] 19:26:00 Test Item Value Reference Range Interpretation Comments TROPONIN I (BEAKER) (test code = 0.11 ng/mL 0.00-0.03 H 397) PROTEIN, RANDOM [id number] 19:19:00 Test Item Value Reference Range Interpretation Comments PROTEIN, URINE (BEAKER) (test code 325 mg/dL 0-14 H = 1569) POCT-GLUCOSE [id number] 19:00:00 Test Item Value Reference Range Interpretation Comments POC-GLUCOSE METER 158 mg/dL 70-110 H TESTED AT [facility] 6720 (BEAKER) (test code = [place] 1538) [address] CREATININE, RANDOM [id number] 18:52:00 Test Item Value Reference Range Interpretation Comments CREATININE URINE (BEAKER) (test 95.8 mg/dL code = 375) Reference Range: No NormalsSODIUM, RANDOM [id number] 18:52:00 Test Item Value Reference Range Interpretation Comments SODIUM URINE (BEAKER) (test code = 28 meq/L 243) Reference Range: No NormalsURINALYSIS W/ [id number] 18:02:00 Test Item Value Reference Range Interpretation [...] SOURCE(BEAKER) (test code Urine, Clean Catch = 0808) POCT-GLUCOSE [id number] 17:21:00 Test Item Value Reference Range Interpretation Comments POC-GLUCOSE METER 137 mg/dL 70-110 H TESTED AT [facility] 6720 (BEAKER) (test code = JOB Osei [facility] 1538) [address] BASIC METABOLIC [id number] 17:14:00 Test Item Value Reference Range Interpretation [...] APPLICABLE FOR DIALYSIS PATIEN TS. Call results [id number] ACID, VENOUS, WHOLE [id number] 14:19:00 Test Item Value Reference Range Interpretation Comments LACTATE BLOOD VENOUS (2) (BEAKER) 1.1 mmol/L 0.5-2.2 (test code = 2872) THROMBIN [id number] 13:02:00 Test Item Value Reference Range Interpretation Comments THROMBIN TIME (BEAKER) (test code = 17.8 secs 13.8-20.0 550) [id number] 13:01:00 Test Item Value Reference Range Interpretation Comments PROCALCITONIN (BEAKER) (test code 0.09 ng/mL <0.05 H = 3036) SEPSIS RISK (ng/mL)Low: 0.05-0.50Intermediate: 0.51-2.00High: >=2.011:1 MIXING STUDY, [id number] 12:38:00 Test Item Value Reference Range Interpretation Comments PROTIME (BEAKER) (test code = 15.0 seconds 11.7-14.7 H 759) PARTIAL THROMBOPLASTIN TIME 36.1 seconds 22.5-36.0 H (BEAKER) (test code = 760) PT 1/1 MIX (BEAKER) (test code = 14.4 SECS 11.7-14.7 1595) PTT 1/ MIX (BEAKER) (test code 35.5 SECS 22.5-36.0 = 1596) TROPONIN [id number] 12:01:00 Test Item Value Reference Range Interpretation Comments TROPONIN I (BEAKER) (test code = 0.13 ng/mL 0.00-0.03 H 397) HCG, QUANTITATIVE, [id number] 11:58:00 Test Item Value Reference Range Interpretation Comments GONADOTROPIN, CHORIONIC (HCG) QUANT < mIU/mL 0-10 (BEAKER) (test code = 649) Non- Females: <10 mIU/mL Females: Gestation Age Reference Range(mIU/mL) 0.2-1 Week 5-50 1-2 Weeks 50-500 2-3 Weeks 100-5,000 3-4 Weeks 500-10,000 4-5 Weeks 1,000-50,000 5-6 Weeks 10,000-100,000 6-8 Weeks 15,000- 200,000 2-3 Months 10,000-100,[id number] 11:55:00 Test Item Value Reference Range Interpretation Comments LIPASE (BEAKER) (test code = 749) 31 U/L 8-78 [id number] 11:55:00 Test Item Value Reference Range Interpretation Comments AMYLASE (BEAKER) (test code = 349) 101 U/L 25-125 COMPREHENSIVE METABOLIC [id number] 11:55:00 Test Item Value Reference Range Interpretation [...] NOT APPLICABLE FOR DIALYSIS PATIEN TS. C-REACTIVE [id number] 11:55:00 Test Item Value Reference Range Interpretation Comments C-REACTIVE PROTEIN (BEAKER) (test 0.42 mg/dL 0.00-0.50 code = 676) LACTIC ACID, VENOUS, WHOLE [id number] 11:51:00 Test Item Value Reference Range Interpretation Comments LACTATE BLOOD VENOUS 1.5 mmol/L 0.5-2.2 Specime n slightly (2) (BEAKER) (test hemolyzed code = 2872) [id number] 11:44:00 Test Item Value Reference Range Interpretation Comments PARTIAL THROMBOPLASTIN TIME 35.4 seconds 22.5-36.0 (BEAKER) (test code = 760) CBC W/PLT COUNT & AUTO [id number] 11:30:00 Test Item Value Reference Range Interpretation [...] % 0-1 PERCENT (BEAKER) (test code = 2807) POCT-GLUCOSE [id number] 11:20:00 Test Item Value Reference Range Interpretation Comments POC-GLUCOSE METER 167 mg/dL 70-110 H TESTED AT [facility] 6720 (BEAKER) (test code = [place] 1538) [address] HEMOGLOBIN [id number] 11:15:00 Test Item Value Reference Range Interpretation Comments HEMOGLOBIN A1C (BEAKER) (test code = 5.6 % 4.3-6.1 368) PROTHROMBIN [id number] 08:24:00 Test Item Value Reference Range Interpretation Comments PROTIME (AMINAH) (test code = 15.3 seconds 11.7-14.7 H 759) INR (AMINAH) (test code = 370) 1.2 <=5.9 RECOMMENDED COUMADIN/WARFARIN INR THERAPY RANGESSTANDARD DOSE: 2.0 - 3.0 Includes: PROPHYLAXIS for venous thrombosis, systemic embolization; TREATMENT for venous thrombosis and/or pulmonary embolus.HIGH RISK: Target INR is 2.5-3.5 for patients with mechanical heart valves.RAD, ABDOMEN/KUB, 1 VIEW [id number] 08:13:00Reason for exam:->abdominal painFINAL REPORT INDICATION:Abdominal pain. [...] Ruiz Verified Date/Time: 07/28/2018 08:13:33 Reading Location: [address] Ortho Consult Reading Room ONIN [id number] 08:11:00 Test Item Value Reference Range Interpretation Comments TROPONIN I (AMINAH) (test code = 0.05 ng/mL 0.00-0.03 H 397) RAD, CHEST, 1 VIEW, NON [id number] 08:10:00Reason for exam:->chest painShould this be performed at the bedside?->YesFINAL REPORT RAD, CHEST, 1 VIEW, NON DEPT INDICATION: chest pain COMPARISON: Prior day's exam FINDINGS: Portable frontal view of the chest. IMPRESSION: Support Lines: None. Lungs and pleura: Clear lungs. No effusion. No pneumothorax.Heart and mediastinum: Unremarkable contours.Additional findings: None. Signed: JR Maya Robert MDReport Verified Date/Time: 07/28/2018 08:10:51 Reading Location: [facility] Radiology Reading Room BASIC METABOLIC [id number] 08:08:00 Test Item Value Reference Range Interpretation [...] S NOT APPLICABLE FOR DIALYSIS PATIEN TS. [id number] 08:04:00 Test Item Value Reference Range Interpretation Comments LIPASE (BEAKER) (test code = 749) 12 U/L 8-78 HEPATIC FUNCTION [id number] 08:04:00 Test Item Value Reference Range Interpretation [...] (test code = 347) hemolyzed COMPLEMENT COMPONENT [id number] 08:03:00 Test Item Value Reference Range Interpretation Comments C4 COMPLEMENT (BEAKER) (test code = 25 mg/dL 15-57 394) COMPLEMENT COMPONENT [id number] 08:03:00 Test Item Value Reference Range Interpretation Comments C3 COMPLEMENT (BEAKER) (test code = 125 mg/dL 82-193 393) POCT-BLOOD GASES, [id number] 07:57:00 Test Item Value Reference Range Interpretation Comments TEMP, CELSIUS-POC 37.0 (BEAKER) (test code = 1834) FIO2-POC (BEAKER) TESTED AT [place] [address] (test code = 1835) [facility] [address] PH, ARTERIAL-POC 7.416 7.350-7.450 (BEAKER) (test code [...] L ARTERIAL-POC (BEAKER) (test code = 1841) [id number] 07:57:00 Test Item Value Reference Range Interpretation Comments POC-SODIUM (BEAKER) 146 meq/L 135-148 TESTED A T [place] [address] (test code = 1542) [place] [address] [id number] 07:57:00 Test Item Value Reference Range Interpretation Comments POC-POTASSIUM 2.7 meq/L 3.6-5.5 L TESTED AT [place] [address] (BEAKER) (test code [place] [facility] [address] = 1540) [id number] 07:57:00 Test Item Value Reference Range Interpretation Comments POC-GLUCOSE (AKER) 176 mg/dL 70-110 H TESTED AT [place] [address] (test code = 1855) [place] [address] POCT-CALCIUM [id number] 07:57:00 Test Item Value Reference Range Interpretation Comments POC-CALCIUM IONIZED 1.15 mmol/L 1.12-1.27 TESTED A T [place] [address] [facility] (test code = [place] 1536) [address] [id number] 07:57:00 Test Item Value Reference Range Interpretation Comments POC-HEMATOCRIT 38 % 36-45 TESTED AT [place] [address] ([facility] (test code = JOB Ose[place] [facility] [address] 1857) [id number] 07:57:00 Test Item Value Reference Range Interpretation Comments POC-HEMOGLOBIN 12.9 g/dL 12.0-15.0 TESTED AT [place] [address] ([facility]) (test [facility] = 1856) [id number] AT [place] [address] [place] [address] POCT-LACTIC ACID, [id number] 07:57:00 Test Item Value Reference Range Interpretation Comments POC-LACTIC ACID, 3.3 mmol/L 0.9-1.7 H TESTED AT [place] [address] VENOUS ([facility]) ([facility] [place] code = 2805) [address] CBC W/PLT COUNT & AUTO [id number] 07:47:00 Test Item Value Reference Range Interpretation Comments WHITE BLOOD CELL COUNT ([facility]) 9.6 K/ L 3.5-10.5 (test code = 775) RED BLOOD CELL COUNT ([facility]) 4.78 M/ L 3.93-5.22 (test code = 761) HEMOGLOBIN (BEAKER) (test code = 12.2 GM/DL 11.2-15.7 410) HEMATOCRIT ([facility]) (test code = 39.2 % 34.1-44.9 411) MEAN CORPUSCULAR VOLUME ([facility]) 82.0 fL 79.4-94.8 (test code [...] % 0-1 PERCENT (BEAKER) (test code = 6101)
[2023-05-03 11:45] LABS: Absolute Lymphocytes (CBC) 1.6 K/uL (0.7-4.9); Hematocrit 32.2 % (36.0-45.0); Lymphocytes % 31.1 % (15.3-44.8); MCV 84.8 fL (80-100); MPV 6.7 fL (7.6-11.3); Platelets 324 thou/uL (152-406)
[2023-05-03 11:53] LABS: Protime INR 1.55
[2023-05-03] MEDS ORDERED: Nicardipine/NS 25 MG/250 ML KIT IV ONE (12:01)
[2023-05-03 12:09] LABS: Albumin 3.3 g/dL (3.4-5.0); Bilirubin Total 0.1 mg/dL (0.2-1.0); Phosphorus 3.2 mg/dL (2.5-4.9); Protein, Total 7.4 g/dL (6.4-8.2); Troponin High Sensitivity 42.5 pg/mL (<58.9)
[2023-05-03 12:10] LABS: Potassium 3.5 mEq/L (3.5-5.1)
[2023-05-03] MEDS ORDERED: HYDROMORPHONE HCL 0.5 MG/0.5 ML INJ ONE ×2 (12:27→13:47)
--- NOTE | 2023-05-03 12:40 | RAD REPORT ---
EXAM DESCRIPTION: RAD - Chest Single View - 05/03/2023 11:51 am CLINICAL HISTORY: FEVER Chest pain. COMPARISON: Chest Single View dated 02/15/2023; Chest Single View dated 01/11/2023; Chest Single View dated 01/08/2023; Chest Single View dated 01/08/2023 FINDINGS: Portable technique limits examination quality. Mild interstitial pulmonary edema. The heart is moderately enlarged. No displaced fractures. IMPRESSION: Mild CHF.
--- NOTE | 2023-05-03 12:52 | RAD REPORT ---
EXAM DESCRIPTION: CT - Chest Abd Pelvis Wo Con - 05/03/2023 12:29 pm CLINICAL HISTORY: Chest pain COMPARISON: December 2022 TECHNIQUE: Computed axial tomography of the chest, abdomen and pelvis was obtained. Oral contrast wa s given. IV contrast was not requested. All CT scans are performed using dose optimization technique as appropriate and may include automated exposure control or mA/KV adjustment according to patient size. FINDINGS: The evaluation of mediastinum, arina, vessels and solid organs is limited secondary to the lack of IV contrast administration The lungs are clear No mediastinal or hilar lymphadenopathy is seen. A pleural effusion is not present. Small to moderate pericardial effusion The liver, spleen, pancreas, adrenals and left kidney appear grossly normal Tiny nonobstructing right renal calculus Marked laxity of the anterior abdominal wall. In addition there are several small right ventral herni as above level of the iliac crest. One contains nondilated small bowel. Mild dilatation portions of colon containing liquid stool. Small bowel caliber is normal No evidence of diverticulitis IMPRESSION: Small to moderate pericardial effusion Mild dilatation of portions of the colon probably not an obstruction. If the patient's symptoms persi st followup abdominal plain film series would be recommended
--- NOTE | 2023-05-03 12:53 | RAD REPORT ---
EXAM DESCRIPTION: CT - Head Brain Wo Cont - 05/03/2023 12:25 pm CLINICAL HISTORY: Headache/hypertension emergency COMPARISON: None TECHNIQUE: Computed axial tomography of the head was obtained. IV contrast was not requested. All CT scans are performed using dose optimization technique as appropriate and may include automated exposure control or mA/KV adjustment according to patient size. FINDINGS: An intracranial bleed is not seen The ventricles are normal in caliber No extra-axial fluid collection is noted. Mild to moderate low-density areas within periventricular, deep and subcortical white matter likely r epresent ischemic changes secondary to small vessel disease. Fluid within the sinuses/ mastoids is not seen. IMPRESSION: No acute intracranial abnormality is seen If patient's symptoms persist MRI of the brain would be recommended
--- NOTE | 2023-05-03 13:31 | ER ---
Nurse's Notes [facility] Name: Babs Younger Age: 52 yrs Sex: Female : 1970 Arrival Date: 05/03/2023 Time: 10:37 Bed 19 Private MD: Diagnosis: Hypertensive urgency;Chronic combined systolic (congestive) and diastolic (congestive) heart failure;Hypertensive heart and chronic kidney disease with heart failure and stage 1 through stage 4 chronic kidney disease, or unspecified chronic kidney disease Presentation: 05/03 10:45 Chief complaint: Patient states: Pain all over the past 2-3 days. Believes it is a nj1 lupus flare up. States she had a 103 temp last night. 10:45 Coronavirus screen: Vaccine status: Patient reports receiving the 2nd dose of the covid nj1 vaccine. Ebola Screen: Patient denies travel to an Ebola-affected area in the 21 days before illness onset. Initial Sepsis Screen: Does the patient meet any 2 criteria? HR > 90 bpm. No. Patient's initial sepsis screen is negative. Does the patient have a suspected source of infection? No. Patient's initial sepsis screen is negative. Risk Assessment: Do you want to hurt yourself or someone else? Patient reports no desire to harm self or others. Onset of symptoms was April 2023. 10:45 Method Of Arrival: EMS: [facility] nj 10:45 Acuity: ELVA 3 nj1 Historical: - Allergies: 10:57 Morphine; nj1 10:57 SHELLFISH; nj1 10:57 Reglan; nj1 - PMHx: 10:57 Atrial fibrillation; bowel obstruction; Diabetes - IDDM; ESRD; Hypertension; Lupus; nj1 Pneumonia; Renal Disease; Seizures; - PSHx: 10:57 Colostomy reversal; nj1 - Immunization history:: Client reports receiving the 2nd dose of the Covid vaccine. - Social history:: Smoking status: Patient denies any tobacco usage or history of. Screenin:58 [facility] ED Fall Risk Assessment (Adult) Score/Fall Risk Level 0 - 2 = Low Risk nj Oriented to surroundings, Maintained a safe environment, Hourly rounding (assess needs \T\ fall precautionary measures) done. Abuse screen: Denies threats or abuse. Denies injuries from another. Nutritional screening: No deficits noted. Tuberculosis screening: No symptoms or risk factors identified. Assessment: 10:58 General: Appears in no apparent distress. uncomfortable, Behavior is calm, cooperative, nj1 appropriate for age. Pain: Complains of pain in Generalized Pain currently is 10 out of 10 on a pain scale. Neuro: Level of Consciousness is awake, alert, obeys commands, Oriented to person, place, time, situation. Cardiovascular: Patient's skin is warm and dry. Respiratory: Airway is patent Respiratory effort is even, unlabored. 11:50 Reassessment: Hold Cardene gtt until electrolytes results are back per STREET PHOTOGRAPHER Toussaint. nj1 12:00 Reassessment: Patient appears in no apparent distress at this time. No changes from [facility] previously documented assessment. 13:00 Reassessment: No changes from previously documented assessment. nj1 14:00 Reassessment: No changes from previously documented assessment. nj1 15:00 Reassessment: No changes from previously documented assessment. nj1 16:00 Reassessment: No changes from previously documented assessment. nj1 16:20 GI: Pt is actively vomiting. nj1 20:00 Reassessment: Patient appears in no apparent distress at this time. Patient and/or nj1 family updated on plan of care and expected duration. Pain level reassessed. Patient is alert, oriented x 3, equal unlabored respirations, skin warm/dry/pink. Vital Signs: 10:45 BP 193 / 120; Pulse 91; Resp 18; Temp 98.5; Pulse Ox 100% on R/A; Weight 81.65 kg; nj1 Height 5 ft. 3 in. ; Pain 10/10; 10:45 BP 186 / 115; Pulse 89; Resp 18; Pulse Ox 100% on R/A; Pain 10/10; nj1 11:30 BP 176 / 114; Pulse 86; Resp 17; Pulse Ox 100% on R/A; Pain 10/10; nj1 12:50 BP 215 / 125; Pulse 96; Resp 19; Pulse Ox 100% ; Pain 10/10; nj1 13:17 BP 187 / 111; Pulse 98; Resp 18; Pulse Ox 100% ; Pain 10/10; nj1 13:38 BP 177 / 111; Pulse 102; Resp 19; Pulse Ox 100% ; Pain 10/10; nj1 14:00 BP 181 / 112; Pulse 101; Resp 17; Pulse Ox 100% ; Pain 9/10; nj1 14:00 Pain 9/10; nj1 14:30 BP 213 / 128; Pulse 105; Resp 20; Pulse Ox 100% on R/A; Pain 10/10; nj1 15:30 BP 214 / 130; Pulse 101; Resp 17; Pulse Ox 100% ; nj1 16:46 BP 207 / 121; Pulse 106; Resp 20; Pulse Ox 99% on R/A; Pain 10/10; nj1 20:00 BP 214 / 139; Pulse 99; Resp 20; Pulse Ox 99% ; Pain 6/10; nj1 10:45 Body Mass Index 31.89 (81.65 kg, 160.02 cm) nj1 10:45 Pain Scale: Adult nj1 10:45 Pain Scale: Adult nj1 11:30 Pain Scale: Adult nj1 12:50 Pain Scale: Adult nj1 13:17 Pain Scale: Adult nj1 13:38 Pain Scale: Adult nj1 14:00 Pain Scale: Adult nj1 14:00 Pain Scale: Adult nj1 14:30 Pain Scale: Adult nj1 16:46 Pain Scale: Adult nj1 20:00 Pain Scale: Adult nj1 ED Course: 10:39 Patient arrived in ED. nj1 10:41 Renetta Toussaint [facility]NP-C [facility] snw 10:41 Irvin Ibarra MD is Attending Physician. snw 10:45 Opal Escoto, LUIS is Primary Nurse. nj1 10:57 Triage completed. nj1 10:58 Arm band placed on left wrist. nj1 10:59 Patient has correct armband on for positive identification. Bed in low position. Call nj1 light in reach. Side rails up X 1. Provided Education on: fall precautions, call light. 11:20 Inserted saline lock: 20 gauge in right upper arm, using aseptic technique. ,using nj1 aseptic technique. Ultrasound guided. Catheter tip well visualized within vasculature during placement. 11:53 Chest Single View XRAY In Process Unspecified. EDMS 12:27 CT Head Brain wo Cont In Process Unspecified. EDMS 12:30 CT Chest Abdomen Pelvis W/O Contrast In Process Unspecified. EDMS 12:35 EKG done, by ED staff. tm3 13:29 Maurice Bright MD is Hospitalizing Provider. snw 14:45 Notified Nurse Practitioner and/or Physician Professor Of Food Biochemistry of vital signs. S Breana YOUNG [facility] aware of BP readings and patient requesting pain medication. 20:48 No provider procedures requiring assistance completed. Patient admitted, IV remains in nj1 place. Administered Medications: 12:17 Drug: HYDROmorphone IVP 0.5 mg Route: IVP; Site: right upper arm; nj 12:40 Follow up: Response: No adverse reaction; Pain is unchanged, physician notified nj1 12:57 Drug: niCARdipine IV 2.5 mg/hr Route: IV; Rate: calculated rate; Site: right upper arm; nj 13:17 Follow up: Rate change 5 mg/hr nj1 14:00 Follow up: BP 181 / 112; Pulse 101 bpm; Resp 17 bpm; Pulse Ox 100% ; Pain 9/10 Adult; nj1 Rate change 2.5 mg/hr; Titrated down as instructed by Tess YOUNG. 14:36 Follow up: Response: No adverse reaction; IV Status: Order to discontinue infusion; IV nj1 Intake: 58.9ml 13:38 Drug: HYDROmorphone IVP 0.5 mg Route: IVP; Site: right upper arm; nj1 14:00 Follow up: Pain 9/10 Adult; Response: No adverse reaction; Pain is decreased nj1 14:00 Drug: HydrALAZINE PO 50 mg Route: PO; nj1 16:45 Follow up: Response: No adverse reaction nj1 14:49 Drug: cloNIDine PO 0.1 mg Route: PO; nj1 16:45 Follow up: Response: No adverse reaction nj1 16:25 Drug: Promethazine IVP 12.5 mg Route: IVP; Site: right upper arm; nj1 16:44 Follow up: Response: No adverse reaction nj1 17:00 Drug: Metoprolol PO 100 mg Route: PO; nj1 20:50 Follow up: Response: No adverse reaction nj1 Medication: 20:50 VIS not applicable for this client. nj1 Intake: 14:36 IV: 59ml; Total: 59ml. nj1 Outcome: 13:30 Decision to Hospitalize by Provider. snw 20:48 Admitted to Med/surg accompanied by tech, via stretcher, room 220, Report called to [facility] Nurse Merlene 20:48 Condition: stable 20:48 Instructed on the need for admit. 21:36 Patient left the ED. [facility] Signatures: Dispatcher [facility] EDFrankie Guerrero tm3 Renetta Toussaint, STREET PHOTOGRAPHER-C STREET PHOTOGRAPHER-Csnw Opal Escoto RN RN nj1 Corrections: (The following items were deleted from the chart) 16:01 14:30 BP 213 / 128; Pulse 105bpm; Resp 20bpm; Pulse Ox 100% RA; nj1 nj1
--- NOTE | 2023-05-03 13:31 | EDPHYS ---
Physician Documentation [facility] Name: Babs Younger Age: 52 yrs Sex: Female : 1970 Arrival Date: 05/03/2023 Time: 10:37 Bed 19 Private MD: ED Physician Irvin Ibarra HPI: 05/03 11:20 This 52 yrs old Black Female presents to ER via EMS with complaints of Pain All Over. snw 11:20 pt with "Lupus flare", pain all over. 103 fever last pm. The patient has experienced snw similar episodes in the past, chronically. It is unknown whether or not the patient has recently seen a physician. Historical: - Allergies: 10:57 Morphine; nj1 10:57 SHELLFISH; nj1 10:57 Reglan; nj1 - PMHx: 10:57 Atrial fibrillation; bowel obstruction; Diabetes - IDDM; ESRD; Hypertension; Lupus; nj1 Pneumonia; Renal Disease; Seizures; - PSHx: 10:57 Colostomy reversal; nj1 - Immunization history:: Client reports receiving the 2nd dose of the Covid vaccine. - Social history:: Smoking status: Patient denies any tobacco usage or history of. ROS: 11:18 Eyes: Negative for injury, pain, redness, and discharge, ENT: Negative for injury, snw pain, and discharge, Neck: Negative for injury, pain, and swelling, Cardiovascular: Negative for chest pain, palpitations, and edema, Respiratory: Negative for shortness of breath, cough, wheezing, and pleuritic chest pain. 11:18 : Negative for injury, bleeding, discharge, and swelling, MS/Extremity: Negative for injury and deformity, Skin: Negative for injury, rash, and discoloration, Neuro: Negative for headache, weakness, numbness, tingling, and seizure, Psych: Negative for depression, anxiety, suicide ideation, homicidal ideation, and hallucinations. 11:18 Constitutional: Positive for body aches, fever, malaise. 11:18 Abdomen/GI: Positive for abdominal distension. 11:18 Back: Positive for pain at rest, pain with movement. Exam: 11:16 Back: No spinal tenderness. No costovertebral tenderness. Full range of motion. snw 11:16 Neuro: Awake and alert, GCS 15, oriented to person, place, time, and situation. Cranial nerves II-XII grossly intact. Motor strength 5/5 in all extremities. Sensory grossly intact. Cerebellar exam normal. Psych: Awake, alert, with orientation to person, place and time. Behavior, mood, and affect are within normal limits. 11:16 Head/Face: Normocephalic, atraumatic. Eyes: Pupils equal round and reactive to light, extra-ocular motions intact. Lids and lashes normal. Conjunctiva and sclera are non-icteric and not injected. Cornea within normal limits. Periorbital areas with no swelling, redness, or edema. ENT: Nares patent. No nasal discharge, no septal abnormalities noted. Tympanic membranes are normal and external auditory canals are clear. Oropharynx with no redness, swelling, or masses, exudates, or evidence of obstruction, uvula midline. Mucous membranes moist. Neck: Trachea midline, no thyromegaly or masses palpated, and no cervical lymphadenopathy. Supple, full range of motion without nuchal rigidity, or vertebral point tenderness. No Meningismus. Positive neck scarring post trach Chest/axilla: Normal chest wall appearance and motion. Nontender with no deformity. No lesions are appreciated. 11:16 Constitutional: The patient appears obese, uncomfortable, vasculopathic 11:16 Cardiovascular: Rate: normal, Heart sounds: murmur, gallop. 11:16 Respiratory: the patient does not display signs of respiratory distress, Respirations: normal, Breath sounds: are clear throughout. 11:16 Abdomen/GI: Inspection: distension, that is moderate, obese umbilical hernia, Bowel sounds: diminished, Palpation: soft. 11:16 Skin: Appearance: Temperature: warm, Moisture: dry, scarred. Vital Signs: 10:45 BP 193 / 120; Pulse 91; Resp 18; Temp 98.5; Pulse Ox 100% on R/A; Weight 81.65 kg; nj1 Height 5 ft. 3 in. ; Pain 10/10; 10:45 BP 186 / 115; Pulse 89; Resp 18; Pulse Ox 100% on R/A; Pain 10/10; nj1 11:30 BP 176 / 114; Pulse 86; Resp 17; Pulse Ox 100% on R/A; Pain 10/10; nj1 12:50 BP 215 / 125; Pulse 96; Resp 19; Pulse Ox 100% ; Pain 10/10; nj1 13:17 BP 187 / 111; Pulse 98; Resp 18; Pulse Ox 100% ; Pain 10/10; nj1 13:38 BP 177 / 111; Pulse 102; Resp 19; Pulse Ox 100% ; Pain 10/10; nj1 14:00 BP 181 / 112; Pulse 101; Resp 17; Pulse Ox 100% ; Pain 9/10; nj1 14:00 Pain 9/10; nj1 14:30 BP 213 / 128; Pulse 105; Resp 20; Pulse Ox 100% on R/A; Pain 10/10; nj1 15:30 BP 214 / 130; Pulse 101; Resp 17; Pulse Ox 100% ; nj1 16:46 BP 207 / 121; Pulse 106; Resp 20; Pulse Ox 99% on R/A; Pain 10/10; nj1 20:00 BP 214 / 139; Pulse 99; Resp 20; Pulse Ox 99% ; Pain 6/10; nj1 10:45 Body Mass Index 31.89 (81.65 kg, 160.02 cm) nj1 10:45 Pain Scale: Adult nj1 10:45 Pain Scale: Adult nj1 11:30 Pain Scale: Adult nj1 12:50 Pain Scale: Adult nj1 13:17 Pain Scale: Adult nj1 13:38 Pain Scale: Adult nj1 14:00 Pain Scale: Adult nj1 14:00 Pain Scale: Adult nj1 14:30 Pain Scale: Adult nj1 16:46 Pain Scale: Adult nj1 20:00 Pain Scale: Adult nj1 MDM: 10:43 Patient medically screened. snw 12:14 Differential Diagnosis renal failure, lupus nephritis, covid. Data reviewed: vital snw signs, nurses notes. 12:15 ED course: Two pressures with 190s over 114-120s, cardene drip ordered. Now pt with snw 176/114, 179/105. Cardene drip held. 12:16 Care significantly affected by the following chronic conditions: Diabetes, snw Hypertension, Congestive Heart Failure, Chronic Kidney Disease, Lupus. 13:27 Management of patient was discussed with the following: Hospitalist: Dr Bright. snw Counseling: I had a detailed discussion with the patient and/or guardian regarding the historical points, exam findings, and any diagnostic results supporting the discharge/admit diagnosis, the presence of at least one elevated blood pressure reading (>120/80) during this emergency department visit, lab results, radiology results, the need for further work-up and treatment in the hospital. 13:46 Response to treatment: the patient's symptoms have mildly improved after treatment, the snw patient's symptoms have markedly improved after treatment. 05/03 11:12 Order name: Blood Culture Adult (2) snw 05/03 11:12 Order name: CBC with Diff; Complete Time: 11:50 snw 05/03 11:12 Order name: CMP; Complete Time: 12:13 snw 05/03 11:12 Order name: Lactate w/ 2H reflex if indic.; Complete Time: 12:13 snw 05/03 11:12 Order name: Protime (+inr); Complete Time: 11:55 snw 05/03 11:12 Order name: Ptt, Activated; Complete Time: 11:55 snw 05/03 11:12 Order name: Urinalysis w/ reflexes snw 05/03 11:12 Order name: Troponin High Sensitivity; Complete Time: 12:13 snw 05/03 11:12 Order name: CPK; Complete Time: 12:13 snw 05/03 11:12 Order name: Phosphorus; Complete Time: 12:13 snw 05/03 11:12 Order name: Hepatitis Panel; Complete Time: 13:35 snw 05/03 11:12 Order name: Magnesium; Complete Time: 12:13 snw 05/03 11:12 Order name: SARS-COV-2 RT PCR; Complete Time: 12:42 w 05/03 11:15 Order name: Flu; Complete Time: 12:48 snw 05/03 11:21 Order name: CRP; Complete Time: 12:13 snw 05/03 16:08 Order name: CBC with Automated Diff EDMS 05/03 16:08 Order name: CBC with Automated Diff EDMS 05/03 16:08 Order name: Comprehensive Metabolic Panel EDMS 05/03 16:08 Order name: Comprehensive Metabolic Panel EDMS 05/03 16:12 Order name: RUTH IFA Screen w/Reflex EDMS 05/03 16:12 Order name: RUTH IFA Screen w/Reflex EDMS 05/03 16:12 Order name: Anti-Double Strand DNA Antibod EDMS 05/03 16:12 Order name: Anti-Double Strand DNA Antibod EDMS 05/03 11:12 Order name: Chest Single View XRAY; Complete Time: 12:42 snw 05/03 11:49 Order name: CT Head Brain wo Cont; Complete Time: 12:54 snw 05/03 11:49 Order name: CT Chest Abdomen Pelvis W/O Contrast; Complete Time: 12:54 snw 05/03 11:12 Order name: EKG; Complete Time: 11:13 snw 05/03 16:08 Order name: Regular EDMS 05/03 16:09 Order name: CONS Physician Consult EDMS 05/03 11:12 Order name: Accucheck; Complete Time: 12:09 snw 05/03 11:12 Order name: Cardiac monitoring; Complete Time: 12:09 snw 05/03 11:12 Order name: EKG - Nurse/Tech; Complete Time: 12:18 snw 05/03 11:12 Order name: IV Saline Lock - Large Bore; Complete Time: 11:46 snw 05/03 11:12 Order name: Labs collected and sent; Complete Time: 11:46 snw 05/03 11:12 Order name: O2 Per Protocol; Complete Time: 11:46 snw 05/03 11:12 Order name: O2 Sat Monitoring; Complete Time: 11:47 snw 05/03 11:12 Order name: Vital Signs; Complete Time: 12:09 snw 05/03 11:16 Order name: Misc. Order: caredene titrated to SBP of 180 please; Complete Time: 12:57 snw EC:12 Rate is 86 beats/min. Rhythm is regular. QRS [place] is Normal. [place] interval is prolonged. snw QT interval is prolonged. Clinical impression: NSR w/ Non-specific ST/T Changes. Administered Medications: 12:17 Drug: HYDROmorphone IVP 0.5 mg Route: IVP; Site: right upper arm; nj1 12:40 Follow up: Response: No adverse reaction; Pain is unchanged, physician notified nj1 12:57 Drug: niCARdipine IV 2.5 mg/hr Route: IV; Rate: calculated rate; Site: right upper arm; nj1 13:17 Follow up: Rate change 5 mg/hr nj1 14:00 Follow up: BP 181 / 112; Pulse 101 bpm; Resp 17 bpm; Pulse Ox 100% ; Pain 9/10 Adult; nj1 Rate change 2.5 mg/hr; Titrated down as instructed by Tess YOUNG. 14:36 Follow up: Response: No adverse reaction; IV Status: Order to discontinue infusion; IV nj1 Intake: 58.9ml 13:38 Drug: HYDROmorphone IVP 0.5 mg Route: IVP; Site: right upper arm; nj1 14:00 Follow up: Pain 9/10 Adult; Response: No adverse reaction; Pain is decreased nj1 14:00 Drug: HydrALAZINE PO 50 mg Route: PO; nj1 16:45 Follow up: Response: No adverse reaction nj1 14:49 Drug: cloNIDine PO 0.1 mg Route: PO; nj1 16:45 Follow up: Response: No adverse reaction nj1 16:25 Drug: Promethazine IVP 12.5 mg Route: IVP; Site: right upper arm; nj1 16:44 Follow up: Response: No adverse reaction nj1 17:00 Drug: Metoprolol PO 100 mg Route: PO; nj1 20:50 Follow up: Response: No adverse reaction nj1 Disposition: 05/04 10:02 Co-signature as Attending Physician, Irvin Ibarra MD I reviewed the patient's care rn provided by the Advanced Practice Provider and agree with the diagnosis and treatment plan. Disposition Summary: 05/03/23 13:30 Hospitalization Ordered Hospitalization Status: Inpatient Admission snw Provider: Maurice Bright snw Condition: Stable snw Problem: an acute exacerbation snw Symptoms: are unchanged snw Bed/Room Type: Standard snw Location: Telemetry/MedSurg (Inpatient)(05/03/23 13:53) snw Room Assignment: 220(05/03/23 19:41) Diagnosis - Hypertensive urgency snw - Chronic combined systolic (congestive) and diastolic (congestive) heart failure snw - Hypertensive heart and chronic kidney disease with heart failure and stage 1 snw through stage 4 chronic kidney disease, or unspecified chronic kidney disease Forms: - Medication Reconciliation Form snw - SBAR form snw - Leadership Thank You Letter snw Signatures: Dispatcher [employer] Renetta Haskins FNP-C FNP-Csnw Irvin Ibarra MD MD rn Garcia, Cindy, RN RN cg Opal Escoto RN RN nj1 Corrections: (The following items were deleted from the chart) 05/03 11:19 11:16 Head/Face: Normocephalic, atraumatic. Eyes: Pupils equal round and reactive to snw light, extra-ocular motions intact. Lids and lashes normal. Conjunctiva and sclera are non-icteric and not injected. Cornea within normal limits. Periorbital areas with no swelling, redness, or edema. ENT: Nares patent. No nasal discharge, no septal abnormalities noted. Tympanic membranes are normal and external auditory canals are clear. Oropharynx with no redness, swelling, or masses, exudates, or evidence of obstruction, uvula midline. Mucous membranes moist. Neck: Trachea midline, no thyromegaly or masses palpated, and no cervical lymphadenopathy. Supple, full range of motion without nuchal rigidity, or vertebral point tenderness. No Meningismus. Chest/axilla: Normal chest wall appearance and motion. Nontender with no deformity. No lesions are appreciated. snw 13:53 13:30 Intensive Care Unit snw snw 13:53 13:30 snw snw 19:41 13:53 snw cg
[2023-05-03 13:32] LABS: Hepatitis B Core IgM Nonreactive (Nonreactive); Hepatitis B surface AG Interp. Nonreactive (Nonreactive); Hepatitis C Virus Ab Nonreactive (Nonreactive)
[2023-05-03] MEDS ORDERED: HYDRALAZINE HCL 25 MG TABLET ONE (14:08)
[2023-05-03] MEDS ORDERED: cloNIDine HCL 0.1 MG TAB ONE (14:56)
[2023-05-03] MEDS ORDERED: ACETAMINOPHEN 500 MG TAB PO PRN (16:04)
--- NOTE | 2023-05-03 16:07 | P.HP ---
Certification for Inpatient Patient admitted to: Inpatient With expected LOS: >2 Midnights Patient will require the following post-hospital care: None Practitioner: I am a practitioner with admitting privileges, knowledge of patient current condition, hospital course, and medical plan of care. Services: Services provided to patient in accordance with Admission requirements found in Title 42 Section 412.3 of the Code of Federal Regulations Patient History Date of Service: 05/03/23 Reason for admission: Hypertensive urgency/emergency History of Present Illness: Patient is a 52-year-old female who came to the hospital with hypertensive urgency emergency. Patient has a history of systemic lupus erythematous and has had numerous complications including lupus pleuritis, lupus peritonitis, lupus cerebritis, and she has avascular necrosis from long-term steroid use. She came to the hospital because her blood pressure was elevated as an outpatient. Home health nurse notified me that her blood pressure was 220/120. She was admitted to the emergency room for further evaluation. In the emergency room she was started on IV antihypertensives. Her blood pressure has improved somewhat. We will continue with strict blood pressure control. Patient also has acute on chronic kidney failure. Will consult nephrology. Patient will be admitted to the hospital for further evaluation. Allergies morphine Allergy (Severe, Verified 09/07/17 09:12) Unknown metoclopramide [From Reglan] Adverse Reaction (Verified 01/08/23 11:29) Hives Home Medications: Hydroxychloroquine [Plaquenil*] 400 mg PO BID 09/07/17 calcitrioL [Rocaltrol] 0.25 mcg PO Q48H 11/19/21 Alprazolam [Xanax] 1 tab PO BID PRN 01/04/23 Furosemide 1 tab PO BID 01/04/23 Gabapentin 100 mg PO TID PRN 01/04/23 cloNIDine HCL [Catapres*] 0.6 mg PO TID 01/04/23 Amiodarone HCl [Cordarone*] 200 mg PO BID #60 tab 01/11/23 Amlodipine [Norvasc*] 10 mg PO DAILY #30 tab 01/11/23 Apixaban [Eliquis] 5 mg PO BID #60 tab 01/11/23 Atorvastatin Calcium 20 mg PO BEDTIME #30 tab 01/11/23 carvediloL [Coreg] 12.5 mg PO BID #60 tab 01/11/23 Doxazosin [Cardura*] 4 mg PO DAILY 05/03/23 Enalapril [Vasotec*] 2.5 mg PO BID 05/03/23 Hydralazine HCl 100 mg PO TID 05/03/23 Lemborexant [Dayvigo] 5 mg PO BID 05/03/23 Mycophenolate Mofetil [Cellcept] 1,000 mg PO BID 05/03/23 Ondansetron HCl 4 mg PO Q6H PRN 05/03/23 Sertraline [Zoloft*] 50 mg PO DAILY 05/03/23 Zolpidem Tartrate [Ambien*] 10 mg PO BEDTIME 05/03/23 methocarbamoL [Methocarbamol] 500 mg PO BID 05/03/23 - Past Medical/Surgical History Diabetic: No -: Lupus, Rheumatology-Dr. Rothman -: HTN -: Seizure disorder -: History of Small bowel obstruction -: Ileostomy in place -: CAD -: History of avascular necrosis -: History of pyelonephritis -: Depression with history of suicidal ideation -: depression -: CKD IV/ Lupus Nephritis followed by Dr. Jean-Baptiste -: -: Hysterectomy -: Bowel resection -: Colostomy -: trach (reversed) -: Removal of colostomy Psychosocial/ Personal History: single, one child. - Family History Sister Notes: lupus Father Medical History: Kidney disease Notes: Mother Medical History: Hypertension, Cancer Notes: , uterine Brother Medical History: Hypertension, Diabetes - Social History Smoking Status: Former smoker Alcohol use: No CD- Drugs: No Caffeine use: Yes Review of Systems 10-point ROS is otherwise unremarkable Physical Examination - Vital Signs Temperature: 98 F Blood Pressure: 210/120 Pulse: 99 Respirations: 20 Pulse Ox (%): 95 - Physical Exam General: Alert, In no apparent distress, Oriented x3 HEENT: Atraumatic, PERRLA, Mucous membr. moist/pink, Other (Patient with scalp lesions), EOMI, Sclerae nonicteric Neck: Supple, 2+ carotid pulse no bruit, No LAD, Without JVD or thyroid abnormality Respiratory: Clear to auscultation bilaterally, Normal air movement Cardiovascular: Regular rate/rhythm, Normal S1 S2 Gastrointestinal: Normal bowel sounds, Soft and benign, Non-distended, No tenderness Musculoskeletal: No clubbing, No tenderness, Swelling Integumentary: No rashes Neurological: Normal speech, Normal tone, Sensation intact, Cranial nerves 3-12 intact, Normal affect, Abnormal gait, Abnormal strength Lymphatics: No axilla or inguinal lymphadenopathy - Studies Laboratory Data (last 24 hrs) 05/03/23 05/03/23 05/03/23 11:20 11:20 11:20 WBC 5.10 Hgb 10.4 L Hct 32.2 L Plt Count 324 PT 17.1 H INR 1.55 APTT 35.4 Sodium 138 Potassium 3.5 BUN 27 H Creatinine 2.55 H Glucose 95 Phosphorus 3.2 Magnesium 2.0 Total Bilirubin 0.1 L AST 20 ALT 23 Alkaline Phosphatase 133 H Microbiology Data (last 24 hrs): 05/03/23 11:58 Nasopharnyx Influenza Type A Antigen Screen - Final 05/03/23 11:58 Nasopharnyx Influenza Type B Antigen Screen - Final Assessment & Plan - Problems (Diagnosis) (1) Hypertensive emergency Current Visit: Yes Status: Acute (2) Diabetes mellitus type II, uncontrolled Onset Date: 02/18/15 Current Visit: No Status: Chronic Qualifiers: Qualified Code(s): E11.65 - Type 2 diabetes mellitus with hyperglycemia; 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 Strict blood pressure control 2. Monitor renal function 3. Monitor neuro status Discharge Plan: Home Plan to discharge in: Greater than 2 days - Advance Directives Does patient have a Living Will: No Does patient have a Durable POA for Healthcare: No - Code Status/Comfort Care Code Status Assessed: Yes Code Status: Full Code Critical Care: No Time Spent Managing PTS Care (In Minutes): 45
[2023-05-03] MEDS ORDERED: PROMETHAZINE INJ 25 MG/ML AMP ONE (16:29)
[2023-05-03] MEDS ORDERED: NA CHLORIDE 0.9% 50 ML ONE (16:29)
[2023-05-03] MEDS ORDERED: AMLODIPINE 10 MG TAB PO ONE (17:00)
[2023-05-03] MEDS ORDERED: METOPROLOL TAR 50 MG TAB ONE (17:07)
[2023-05-03] MEDS ORDERED: AMLODIPINE 10 MG TAB ONE (17:45)
[2023-05-03] MEDS ORDERED: HYDROMORPHONE HCL 1 MG/ML INJ ONE (17:45)
[2023-05-03] MEDS: HYDROMORPHONE HCL 1 MG/ML INJ IV PRN ×2 (17:47→21:53)
[2023-05-03] MEDS: dexAMETHasone 4 MG/ML VIAL IV SCH (18:00)
[2023-05-03] MEDS: NA CHLORIDE 0.9% 1,000 ML IV SCH (21:54)
[2023-05-03] MEDS: DOXAZOSIN 4 MG TAB PO SCH (21:54)
[2023-05-03] MEDS: METOPROLOL TAR 50 MG TAB PO SCH (21:54)
--- NOTE | 2023-05-03 21:57 | P.CNS ---
Date of Consult: 05/03/23 Reason for Consult: DAE/ CKD Requesting Physician: Maurice Bright Chief Complaint: Diffuse Pain History of Present Illness: 52 yo BF CKD, SLE presented to the ER with severe, diffuse joint pain and myalgia in the setting of SLE with associated N/V. She believes she is having a lupus flare. [id number] 11:20 This 52 yrs old Black Female presents to ER via EMS with complaints of Pain All Over. snw 11:20 pt with "Lupus flare", pain all over. 103 fever last pm. The patient has experienced snw similar episodes in the past, chronically. It is unknown whether or not the patient has recently seen a physician. Allergies morphine Allergy (Severe, Verified 09/07/17 09:12) Unknown metoclopramide [From Reglan] Adverse Reaction (Verified 01/08/23 11:29) Hives Home medications list reviewed: Yes Home Medications: Hydroxychloroquine [Plaquenil*] 400 mg PO BID 09/07/17 calcitrioL [Rocaltrol] 0.25 mcg PO Q48H 11/19/21 Alprazolam [Xanax] 1 tab PO BID PRN 01/04/23 Furosemide 1 tab PO BID 01/04/23 Gabapentin 100 mg PO TID PRN 01/04/23 cloNIDine HCL [Catapres*] 0.6 mg PO TID 01/04/23 Amiodarone HCl [Cordarone*] 200 mg PO BID #60 tab 01/11/23 Amlodipine [Norvasc*] 10 mg PO DAILY #30 tab 01/11/23 Apixaban [Eliquis] 5 mg PO BID #60 tab 01/11/23 Atorvastatin Calcium 20 mg PO BEDTIME #30 tab 01/11/23 carvediloL [Coreg] 12.5 mg PO BID #60 tab 01/11/23 Doxazosin [Cardura*] 4 mg PO DAILY 05/03/23 Enalapril [Vasotec*] 2.5 mg PO BID 05/03/23 Hydralazine HCl 100 mg PO TID 05/03/23 Lemborexant [Dayvigo] 5 mg PO BID 05/03/23 Mycophenolate Mofetil [Cellcept] 1,000 mg PO BID 05/03/23 Ondansetron HCl 4 mg PO Q6H PRN 05/03/23 Sertraline [Zoloft*] 50 mg PO DAILY 05/03/23 Zolpidem Tartrate [Ambien*] 10 mg PO BEDTIME 05/03/23 methocarbamoL [Methocarbamol] 500 mg PO BID 05/03/23 - Past Medical/Surgical History Diabetic: No -: Lupus, Rheumatology-Dr. Rothman -: HTN -: Seizure disorder -: History of Small bowel obstruction -: Ileostomy in place -: CAD -: History of avascular necrosis -: History of pyelonephritis -: Depression with history of suicidal ideation -: depression -: CKD IV/ Lupus Nephritis followed by Dr. Jean-Baptiste -: -: Hysterectomy -: Bowel resection -: Colostomy -: trach (reversed) -: Removal of colostomy Psychosocial/ Personal History: single, one child. - Family History Sister Notes: lupus Father Medical History: Kidney disease Notes: Mother Medical History: Hypertension, Cancer Notes: , uterine Brother Medical History: Hypertension, Diabetes - Social History Smoking Status: Unknown if ever smoked Alcohol use: No CD- Drugs: No Caffeine use: Yes Review of Systems 10-point ROS is otherwise unremarkable General: Weakness, Malaise Gastrointestinal: Nausea, Vomiting, Abdominal Pain Musculoskeletal: Arm Pain, Back Pain, Leg Pain Physical Examination Temp Pulse Resp BP Pulse Ox 115 H 18 200/133 H 99 05/03/23 17:45 05/03/23 17:47 05/03/23 17:45 05/03/23 17:47 General: Oriented x3, Cooperative, Mild distress HEENT: Atraumatic Neck: Supple Respiratory: Clear to auscultation bilaterally, Normal air movement Cardiovascular: No edema, Regular rate/rhythm Gastrointestinal: No guarding, Distended, Tenderness Musculoskeletal: No clubbing, No contractures Integumentary: No rashes, No cyanosis Neurological: Normal speech Laboratory Data (last 24 hrs) 05/03/23 05/03/23 05/03/23 11:20 11:20 11:20 WBC 5.10 Hgb 10.4 L Hct 32.2 L Plt Count 324 PT 17.1 H INR 1.55 APTT 35.4 Sodium 138 Potassium 3.5 BUN 27 H Creatinine 2.55 H Glucose 95 Phosphorus 3.2 Magnesium 2.0 Total Bilirubin 0.1 L AST 20 ALT 23 Alkaline Phosphatase 133 H Imagings Data: [id number] EXAM DESCRIPTION: CT - Chest Abd Pelvis Wo Con - 05/03/2023 12:29 pm CLINICAL HISTORY: Chest pain COMPARISON: December 2022 TECHNIQUE: Computed axial tomography of the chest, abdomen and pelvis was obtained. Oral contrast was given. IV contrast was not requested. All CT scans are performed using dose optimization technique as appropriate and may include automated exposure control or mA/KV adjustment according to patient size. FINDINGS: The evaluation of mediastinum, arina, vessels and solid organs is limited secondary to the lack of IV contrast administration The lungs are clear No mediastinal or hilar lymphadenopathy is seen. A pleural effusion is not present. Small to moderate pericardial effusion The liver, spleen, pancreas, adrenals and left kidney appear grossly normal Tiny nonobstructing right renal calculus Marked laxity of the anterior abdominal wall. In addition there are several small right ventral hernias above level of the iliac crest. One contains nondilated small bowel. Mild dilatation portions of colon containing liquid stool. Small bowel caliber is normal No evidence of diverticulitis IMPRESSION: Small to moderate pericardial effusion Mild dilatation of portions of the colon probably not an obstruction. If the patient's symptoms persist followup abdominal plain film series would be recommended [address] EXAM DESCRIPTION: RAD - Chest Single View - 05/03/2023 11:51 am CLINICAL HISTORY: FEVER Chest pain. COMPARISON: Chest Single View dated 02/15/2023; Chest Single View dated 01/11/2023; Chest Single View dated 01/08/2023; Chest Single View dated 01/08/2023 FINDINGS: Portable technique limits examination quality. Mild interstitial pulmonary edema. The heart is moderately enlarged. No displaced fractures. IMPRESSION: Mild CHF. [address] EXAM DESCRIPTION: CT - Head Brain Wo Cont - 05/03/2023 12:25 pm CLINICAL HISTORY: Headache/hypertension emergency COMPARISON: None TECHNIQUE: Computed axial tomography of the head was obtained. IV contrast was not requested. All CT scans are performed using dose optimization technique as appropriate and may include automated exposure control or mA/KV adjustment according to patient size. FINDINGS: An intracranial bleed is not seen The ventricles are normal in caliber No extra-axial fluid collection is noted. Mild to moderate low-density areas within periventricular, deep and subcortical white matter likely represent ischemic changes secondary to small vessel disease. Fluid within the sinuses/ mastoids is not seen. IMPRESSION: No acute intracranial abnormality is seen If patient's symptoms persist MRI of the brain would be recommended Conclusions/Impression: Stage I DAE in the setting of hypovolemia CKD IV in the setting of Lupus Nephritis -No NSAIDs -Continue Cellcep and Plaquenil -Change IVF 1/2NS Hypokalemia -Replete prn Metabolic Acidosis -Consider oral bicarb HTN with CKD -Continue Amlodipine and Enalapril -Continue Metoprolol and Doxazosin -Will titrate antihypertensives as needed Anemia in chronic illness -Monitor H&H -Retacrit prn CKD MBD -Continue Calcitriol SLE Flare -Continue Dexamethasone -Continue Cellcep and Plaquenil Hospitalist and ER notes reviewed Thank you kindly for the consultation
[2023-05-03] MEDS: ONDANSETRON 4 MG/2 ML VIAL IV PRN (23:24)
[2023-05-03] MEDS: HYDROCODONE/APAP 10/325 TAB PO PRN (23:24)
[2023-05-04] MEDS ORDERED: ZOLPIDEM TARTRATE 10 MG TABLET PO PRN (00:32)
[2023-05-04] MEDS ORDERED: LORazepam 2 MG/ML VIAL IV ONE (01:23)
[2023-05-04] MEDS: NA CHLORIDE 0.9% 1,000 ML IV SCH (03:00)
[2023-05-04] MEDS: HYDROMORPHONE HCL 1 MG/ML INJ IV PRN ×2 (03:46→11:04)
[2023-05-04 04:04] LABS: Absolute Lymphocytes (CBC) 1.5 K/uL (0.7-4.9); Hematocrit 33.6 % (36.0-45.0); Lymphocytes % 24.2 % (15.3-44.8); MCV 84.6 fL (80-100); MPV 6.7 fL (7.6-11.3); Platelets 371 thou/uL (152-406); RBC Red Blood Cell Count 3.97 M/uL (3.86-4.86)
[2023-05-04 04:17] LABS: Albumin 3.5 g/dL (3.4-5.0); Bilirubin Total 0.3 mg/dL (0.2-1.0); Potassium 3.5 mEq/L (3.5-5.1); Protein, Total 7.6 g/dL (6.4-8.2)
[2023-05-04] MEDS: dexAMETHasone 4 MG/ML VIAL IV SCH ×4 (05:37→18:00)
[2023-05-04] MEDS: HYDROCODONE/APAP 10/325 TAB PO PRN ×3 (05:37→22:43)
[2023-05-04] MEDS: AMLODIPINE 10 MG TAB PO SCH (08:16)
[2023-05-04] MEDS: DOXAZOSIN 4 MG TAB PO SCH ×2 (08:17→21:00)
[2023-05-04] MEDS: METOPROLOL TAR 50 MG TAB PO SCH ×3 (08:17→22:44)
[2023-05-04] MEDS ORDERED: DOXAZOSIN 2 MG TAB ONE ×2 (08:23→20:40)
[2023-05-04] MEDS ORDERED: ONDANSETRON 4 MG (ODT) TAB PO PRN (08:59)
[2023-05-04] MEDS ORDERED: GABAPENTIN 100 MG CAP PO PRN (08:59)
[2023-05-04] MEDS ORDERED: ALPRAZOLAM 0.5 MG TABLET PO PRN (08:59)
[2023-05-04] MEDS ORDERED: HOME MED 1 EA UNK (Mycophenolate Mofetil [Cellcept] 500 MG Tablet) PO SCH (09:00)
[2023-05-04] MEDS: LEMBOREXANT 5 MG PO SCH ×2 (09:00→21:00)
[2023-05-04] MEDS ORDERED: DOXAZOSIN 4 MG TAB PO SCH (09:00)
[2023-05-04] MEDS: ENALAPRIL 2.5 MG TAB PO SCH ×2 (09:00→21:24)
[2023-05-04] MEDS ORDERED: AMLODIPINE 10 MG TAB PO SCH (09:00)
[2023-05-04] MEDS: AMIODARONE HCL 200 MG TAB PO SCH ×2 (09:00→21:29)
[2023-05-04] MEDS: methocarbamoL 500 MG TAB PO SCH ×2 (09:00→21:26)
[2023-05-04] MEDS ORDERED: POTASSIUM CL SA 10 MEQ TAB PO ONE (09:30)
--- NOTE | 2023-05-04 09:35 | P.PN ---
Date of Service: 05/04/23 Vital Signs Temp Pulse Resp BP Pulse Ox 98.6 F 87 16 189/105 H 99 05/04/23 08:00 05/04/23 08:17 05/04/23 08:00 05/04/23 08:17 05/04/23 08:00 Medications Acetaminophen (Acetaminophen 500 Mg Tab) 500 mg PO Q6H PRN PRN Reason: pain/fever Hydrocodone Bitart/Acetaminophen (Hydrocodone/Apap 10/325 Tab) 1 tab PO Q6H PRN PRN Reason: Pain scale 5-7 (Moderate) Last Admin: 05/04/23 05:37 Dose: 1 tab Alprazolam (Alprazolam 0.5 Mg Tablet) 0.5 mg PO BID PRN PRN Reason: ANXIETY Amiodarone HCl (Amiodarone Hcl 200 Mg Tab) 200 mg PO BID [facility] Amlodipine Besylate (Amlodipine 10 Mg Tab) 10 mg PO DAILY [facility] Last Admin: 05/04/23 08:16 Dose: 10 mg Apixaban (Apixaban 5 Mg Tablet) 5 mg PO BID [facility] Atorvastatin Calcium (Atorvastatin 20 Mg Tab) 20 mg PO BEDTIME [facility] Calcitriol (Calcitrol 0.25 Mcg Cap) 0.25 mcg PO Q48H [facility] Clonidine HCl (Clonidine Hcl 0.3 Mg Tab) 0.6 mg PO TID [facility] Dexamethasone (Dexamethasone 4 Mg/Ml Vial) 2 mg IV Q6HR [facility] Last Admin: 05/04/23 05:37 Dose: 2 mg Doxazosin Mesylate (Doxazosin 4 Mg Tab) 4 mg PO BID [facility] Last Admin: 05/04/23 08:17 Dose: 4 mg Enalapril Maleate (Enalapril 2.5 Mg Tab) 2.5 mg PO BID [facility] Furosemide (Furosemide 20 Mg Tablet) 20 mg PO BIDL [facility] Gabapentin (Gabapentin 100 Mg Cap) 100 mg PO TID PRN PRN Reason: neuropathy Home Med (Hydralazine Hcl [Hydralazine Hcl]) 100 mg PO TID [facility] Home Med (Lemborexant [Dayvigo]) 5 mg PO BID [facility] Home Med (Mycophenolate Mofetil [Cellcept]) 1,000 mg PO BID [facility] Home Med (Ondansetron Hcl [Ondansetron Hcl]) 4 mg PO Q6H PRN PRN Reason: NAUSEA / VOMITING Hydromorphone HCl (Hydromorphone Hcl 1 Mg/Ml Inj) 1 mg IV Q6H PRN PRN Reason: Pain scale 8-10 (Severe) Last Admin: 05/04/23 03:46 Dose: 1 mg Hydroxychloroquine Sulfate (Hydroxychloroquine 200mg Tab) 400 mg PO BID [facility] Sodium Chloride (Sodium Chloride 0.45%) 1,000 mls @ 75 mls/hr IV .[id number] [facility] Methocarbamol (Methocarbamol 500 Mg Tab) 500 mg PO BID [facility] Metoprolol Tartrate (Metoprolol Tar 50 Mg Tab) 50 mg PO TID [facility] Last Admin: 05/04/23 08:17 Dose: 50 mg Ondansetron HCl (Ondansetron 4 Mg/2 Ml Vial) 4 mg IV Q4H PRN PRN Reason: NAUSEA / VOMITING Last Admin: 05/03/23 23:24 Dose: 4 mg Sertraline HCl (Sertraline Hcl 50 Mg Tab) 50 mg PO DAILY [facility] Sodium Chloride (Flush Normal Saline 10 Ml) 10 ml IV BID [facility] Last Admin: 05/03/23 21:00 Dose: 10 ml Zolpidem Tartrate (Zolpidem Tartrate 10 Mg Tablet) 10 mg PO BEDTIME [facility] Lab Results (last 24 hrs) 05/03/23 11:58: SARS-CoV-2 Rap RNA(RT-PCR) Negative 05/03/23 11:35: Hepatitis A IgM Ab Nonreactive, Hep Bs Antigen Nonreactive, Hep B Surface Ag Comm Report, Hep B Core IgM Index Nonreactive, Hepatitis C Interp Nonreactive 05/03/23 11:20: C-Reactive Protein < 2.90 05/03/23 11:20: PT 17.1 H, INR 1.55, APTT 35.4 05/03/23 11:20: Lactic Acid 0.9 05/03/23 11:20: Sodium 138, Potassium 3.5, Chloride 111 H, Carbon Dioxide 20 L, Anion Gap 10.5, BUN 27 H, Creatinine 2.55 H, Est GFR (CKD-EPI) 22 L, Glucose 95, Calcium 8.9, Phosphorus 3.2, Magnesium 2.0, Total Bilirubin 0.1 L, AST 20, ALT 23, Alkaline Phosphatase 133 H, Creatine Kinase 132, Troponin I High Sens 42.5, Serum Total Protein 7.4, Albumin 3.3 L, Globulin 4.1 H, Albumin/Globulin Ratio 0.8 L 05/03/23 11:20: WBC 5.10, RBC 3.80 L, Hgb 10.4 L, Hct 32.2 L, MCV 84.8, MCH 27.4, MCHC 32.4, RDW 15.1, Plt Count 324, MPV 6.7 L, Neutrophils % 48.7, Lymphocytes % 31.1, Monocytes % 12.8 H, Eosinophils % 6.4 H, Basophils % 1.0, Absolute Neutrophils 2.5, Absolute Lymphocytes 1.6, Absolute Monocytes 0.6, Absolute Eosinophils 0.3, Absolute Basophils 0.1 Microbiology Results 05/03/23 11:35 Blood - Blood Anaerobic Blood Culture - Final 05/03/23 11:20 Blood - Blood Anaerobic Blood Culture - Final 05/03/23 11:58 Nasopharnyx Influenza Type A Antigen Screen - Final 05/03/23 11:58 Nasopharnyx Influenza Type B Antigen Screen - Final Assessment/ Plan: Nephrology No dyspnea No chest pain No acute events overnight Vitals, medications, blood work and imaging reviewed in the chart General: Oriented x3, Cooperative, Mild distress HEENT: Atraumatic Neck: Supple Respiratory: Clear to auscultation bilaterally, Normal air movement Cardiovascular: No edema, Regular rate/rhythm Gastrointestinal: No guarding, Distended, Tenderness Musculoskeletal: No clubbing, No contractures Integumentary: No rashes, No cyanosis Neurological: Normal speech Laboratory Data (last 24 hrs) 05/03/23 05/03/23 05/03/23 11:20 11:20 11:20 WBC 5.10 Hgb 10.4 L Hct 32.2 L Plt Count 324 PT 17.1 H INR 1.55 APTT 35.4 Sodium 138 Potassium 3.5 BUN 27 H Creatinine 2.55 H Glucose 95 Phosphorus 3.2 Magnesium 2.0 Total Bilirubin 0.1 L AST 20 ALT 23 Alkaline Phosphatase 133 H Imagings Data: [id number] EXAM DESCRIPTION: CT - Chest Abd Pelvis Wo Con - 05/03/2023 12:29 pm CLINICAL HISTORY: Chest pain COMPARISON: December 2022 TECHNIQUE: Computed axial tomography of the chest, abdomen and pelvis was obtained. Oral contrast was given. IV contrast was not requested. All CT scans are performed using dose optimization technique as appropriate and may include automated exposure control or mA/KV adjustment according to patient size. FINDINGS: The evaluation of mediastinum, arina, vessels and solid organs is limited secondary to the lack of IV contrast administration The lungs are clear No mediastinal or hilar lymphadenopathy is seen. A pleural effusion is not present. Small to moderate pericardial effusion The liver, spleen, pancreas, adrenals and left kidney appear grossly normal Tiny nonobstructing right renal calculus Marked laxity of the anterior abdominal wall. In addition there are several small right ventral hernias above level of the iliac crest. One contains nondilated small bowel. Mild dilatation portions of colon containing liquid stool. Small bowel caliber is normal No evidence of diverticulitis IMPRESSION: Small to moderate pericardial effusion Mild dilatation of portions of the colon probably not an obstruction. If the patient's symptoms persist followup abdominal plain film series would be recommended EXAM DESCRIPTION: RAD - Chest Single View - 05/03/2023 11:51 am CLINICAL HISTORY: FEVER Chest pain. COMPARISON: Chest Single View dated 02/15/2023; Chest Single View dated 01/11/2023; Chest Single View dated 01/08/2023; Chest Single View dated 01/08/2023 FINDINGS: Portable technique limits examination quality. Mild interstitial pulmonary edema. The heart is moderately enlarged. No displaced fractures. IMPRESSION: Mild CHF. EXAM DESCRIPTION: CT - Head Brain Wo Cont - 05/03/2023 12:25 pm CLINICAL HISTORY: Headache/hypertension emergency COMPARISON: None TECHNIQUE: Computed axial tomography of the head was obtained. IV contrast was not requested. All CT scans are performed using dose optimization technique as appropriate and may include automated exposure control or mA/KV adjustment according to patient size. FINDINGS: An intracranial bleed is not seen The ventricles are normal in caliber No extra-axial fluid collection is noted. Mild to moderate low-density areas within periventricular, deep and subcortical white matter likely represent ischemic changes secondary to small vessel disease. Fluid within the sinuses/ mastoids is not seen. IMPRESSION: No acute intracranial abnormality is seen If patient's symptoms persist MRI of the brain would be recommended Conclusions/Impression: Stage I DAE in the setting of hypovolemia CKD IV in the setting of Lupus Nephritis -No NSAIDs -Continue Cellcep and Plaquenil -Change IVF 1/2NS Hypokalemia -Replete prn Metabolic Acidosis, resolved HTN with CKD -Continue Amlodipine and Enalapril -Continue Metoprolol and Doxazosin -Will titrate antihypertensives as needed Anemia in chronic illness -Monitor H&H -Retacrit prn CKD MBD -Continue Calcitriol SLE Flare -Continue Dexamethasone -Continue Cellcep and Plaquenil Hospitalist notes reviewed
[2023-05-04] MEDS ORDERED: NACHLORIDE 0.45% 1,000 ML IV SCH (10:00)
[2023-05-04] MEDS: CALCITROL 0.25 MCG CAP PO SCH (11:04)
[2023-05-04] MEDS: SERTRALINE HCL 50 MG TAB PO SCH (11:04)
[2023-05-04] MEDS: APIXABAN 5 MG TABLET PO SCH ×2 (11:05→21:27)
[2023-05-04] MEDS: HYDRALAZINE HCL 25 MG TABLET PO SCH ×3 (11:05→21:24)
[2023-05-04] MEDS: HYDROXYCHLOROQUINE 200MG TAB PO SCH ×2 (11:07→21:21)
[2023-05-04] MEDS: CLONIDINE HCL 0.3 MG TAB PO SCH ×2 (11:07→14:00)
[2023-05-04] MEDS: FUROSEMIDE 20 MG TABLET PO SCH ×2 (11:11→16:02)
[2023-05-04] MEDS ORDERED: CLONIDINE 0.3 MG/PATCH TD SCH (15:22)
[2023-05-04] MEDS: ISOSORBIDE DINIT 20 MG TAB PO SCH ×2 (16:03→21:27)
[2023-05-04] MEDS ORDERED: HYDROMORPHONE HCL 1 MG/ML INJ IM ONE (18:30)
--- NOTE | 2023-05-04 18:45 | EKG ---
Test Date: 2023-05-03 Test Time: 12:10:50 Washer Blanket: TM MEASUREMENT RESULTS: Intervals: Rate: 86 FL: 218 QRSD: 92 QT: 450 QTc: 538 [place]: P: 72 FL: 218 QRS: 28 T: 108 INTERPRETIVE STATEMENTS: Sinus rhythm with 1st degree AV block Moderate voltage criteria for LVH, may be normal variant T wave abnormality, consider lateral ischemia Prolonged QT Abnormal ECG Compared to ECG 02/15/2023 12:07:56 First degree AV block now present Left ventricular hypertrophy now present T-wave abnormality now present Possible ischemia now present Sinus tachycardia no longer present Electronically Signed On 05-04-23 18:43:05 CDT by Dario Ackerman
[2023-05-04] MEDS: ZOLPIDEM TARTRATE 10 MG TABLET PO SCH (21:00)
[2023-05-04] MEDS: ATORVASTATIN 20 MG TAB PO SCH (21:29)
[2023-05-04] MEDS: HOME MED 1 EA UNK (Mycophenolate Mofetil [Cellcept] 500 MG Tablet) PO SCH (21:34)
[2023-05-05] MEDS: HYDROMORPHONE HCL 1 MG/ML INJ IV PRN ×3 (03:54→16:06)
[2023-05-05] MEDS: ONDANSETRON 4 MG/2 ML VIAL IV PRN ×2 (03:55→23:04)
[2023-05-05] MEDS: dexAMETHasone 4 MG/ML VIAL IV SCH ×4 (07:38→17:24)
--- NOTE | 2023-05-05 08:36 | P.PN ---
Date of Service: 05/04/23 Subjective Patient doing much better. Blood pressure better controlled. Pain is better controlled as well. Physical Examination - Vital Signs reviewed - Physical Exam General: Alert, In no apparent distress, Oriented x3 HEENT: Patient with scalp lesions Respiratory: Clear to auscultation bilaterally, Normal air movement Cardiovascular: Regular rate/rhythm, Normal S1 S2 Gastrointestinal: Normal bowel sounds, Soft and benign, Non-distended, No tenderness Musculoskeletal: No clubbing, No tenderness, Swelling Neurological: No focal deficits, Abnormal gait, Abnormal strength Assessment & Plan - Problems (Diagnosis) (1) Hypertensive emergency Current Visit: Yes Status: Acute (2) Diabetes mellitus type II, uncontrolled Onset Date: 02/18/15 Current Visit: No Status: Chronic Qualified Code(s): E11.65 - Type 2 diabetes mellitus with hyperglycemia; Z79.4 - 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 Strict blood pressure control 2. Monitor renal function 3. Monitor neuro status 4. Continue with pain control 5. Immunosuppressants 6. Monitor BS control 7. GI/DVT prophylaxis Discharge Plan: Home Plan to discharge in: Greater than 2 days - Advance Directives Does patient have a Living Will: No Does patient have a Durable POA for Healthcare: No - Code Status/Comfort Care Code Status Assessed: Yes Code Status: Full Code Critical Care: No Time Spent Managing PTS Care (In Minutes): 45
[2023-05-05] MEDS ORDERED: DOXAZOSIN 2 MG TAB ONE ×2 (08:41→20:21)
[2023-05-05] MEDS: DOXAZOSIN 4 MG TAB PO SCH ×2 (09:00→20:27)
[2023-05-05] MEDS: LEMBOREXANT 5 MG PO SCH ×2 (09:00→20:25)
[2023-05-05] MEDS: HYDRALAZINE HCL 25 MG TABLET PO SCH ×3 (09:52→20:25)
[2023-05-05] MEDS: ISOSORBIDE DINIT 20 MG TAB PO SCH ×3 (09:54→20:24)
[2023-05-05] MEDS: FUROSEMIDE 20 MG TABLET PO SCH ×2 (09:54→16:14)
[2023-05-05] MEDS: AMIODARONE HCL 200 MG TAB PO SCH ×2 (09:54→20:29)
[2023-05-05] MEDS: APIXABAN 5 MG TABLET PO SCH ×2 (09:54→20:24)
[2023-05-05] MEDS: METOPROLOL TAR 50 MG TAB PO SCH ×3 (09:55→20:24)
[2023-05-05] MEDS: AMLODIPINE 10 MG TAB PO SCH (09:55)
[2023-05-05] MEDS: methocarbamoL 500 MG TAB PO SCH ×2 (09:56→20:23)
[2023-05-05] MEDS: ENALAPRIL 2.5 MG TAB PO SCH ×3 (09:57→22:19)
[2023-05-05] MEDS: SERTRALINE HCL 50 MG TAB PO SCH (09:57)
[2023-05-05] MEDS: HOME MED 1 EA UNK (Mycophenolate Mofetil [Cellcept] 500 MG Tablet) PO SCH ×2 (10:00→20:21)
[2023-05-05] MEDS: HYDROXYCHLOROQUINE 200MG TAB PO SCH ×2 (10:01→20:22)
[2023-05-05 12:29] LABS: Specific Gravity 1.012 (1.005-1.030); Urine Bacteria None Seen /HPF (<20); Urine Bilirubin NEGATIVE (Negative); Urine Blood Negative (Negative); Urine Clarity Clear (Clear); Urine Color Colorless (Yellow); Urine Glucose NEGATIVE (Negative); Urine Protein 1+ (Negative); Urine Urobilinogen Normal (Normal); Urine pH 5.5 (5.0-7.0)
[2023-05-05] MEDS: HYDROCODONE/APAP 10/325 TAB PO PRN (12:39)
[2023-05-05] MEDS: ATORVASTATIN 20 MG TAB PO SCH (20:24)
[2023-05-05] MEDS ORDERED: HYDROMORPHONE HCL 1 MG/ML INJ IV PRN (20:34)
--- NOTE | 2023-05-05 20:48 | P.PN ---
Date of Service: 05/05/23 Vital Signs Temp Pulse Resp BP Pulse Ox 98.0 F 86 16 177/101 H 96 05/05/23 16:29 05/05/23 20:24 05/05/23 16:36 05/05/23 20:24 05/05/23 16:36 Medications Acetaminophen (Acetaminophen 500 Mg Tab) 500 mg PO Q6H PRN PRN Reason: Pain scale 2-4 (Mild)/Fever Hydrocodone Bitart/Acetaminophen (Hydrocodone/Apap 10/325 Tab) 1 tab PO Q6H PRN PRN Reason: Pain scale 5-7 (Moderate) Last Admin: 05/05/23 12:39 Dose: 1 tab Amiodarone HCl (Amiodarone Hcl 200 Mg Tab) 200 mg PO BID [facility] Last Admin: 05/05/23 20:29 Dose: 200 mg Amlodipine Besylate (Amlodipine 10 Mg Tab) 10 mg PO BID [facility] Apixaban (Apixaban 5 Mg Tablet) 5 mg PO BID [facility] Last Admin: 05/05/23 20:24 Dose: 5 mg Atorvastatin Calcium (Atorvastatin 20 Mg Tab) 20 mg PO BEDTIME [facility] Last Admin: 05/05/23 20:24 Dose: 20 mg Calcitriol (Calcitrol 0.25 Mcg Cap) 0.25 mcg PO Q48H [facility] Last Admin: 05/04/23 11:04 Dose: 0.25 mcg Clonidine HCl (Clonidine 0.3 Mg/Patch) 0.3 mg TD EVERY 7TH DAY [facility] Last Admin: 05/04/23 15:42 Dose: 0.3 mg Dexamethasone (Dexamethasone 4 Mg/Ml Vial) 2 mg IV Q6HR [facility] Last Admin: 05/05/23 17:24 Dose: 2 mg Doxazosin Mesylate (Doxazosin 4 Mg Tab) 4 mg PO BID [facility] Last Admin: 05/05/23 20:27 Dose: Not Given Enalapril Maleate (Enalapril 2.5 Mg Tab) 5 mg PO BID [facility] Furosemide (Furosemide 20 Mg Tablet) 20 mg PO BIDL [facility] Last Admin: 05/05/23 16:14 Dose: 20 mg Gabapentin (Gabapentin 100 Mg Cap) 100 mg PO TID PRN PRN Reason: neuropathy Last Admin: 05/04/23 15:44 Dose: 100 mg Home Med (Lemborexant [Dayvigo]) 5 mg PO BID [facility] Last Admin: 05/05/23 20:25 Dose: Not Given Home Med (Mycophenolate Mofetil [Cellcept]) 1,000 mg PO BID [facility] Last Admin: 05/05/23 20:21 Dose: 1,000 mg Hydralazine HCl (Hydralazine Hcl 25 Mg Tablet) 100 mg PO TID [facility] Last Admin: 05/05/23 20:25 Dose: 100 mg Hydromorphone HCl (Hydromorphone Hcl 1 Mg/Ml Inj) 1 mg IV Q4H PRN PRN Reason: Pain scale 8-10 (Severe) Hydroxychloroquine Sulfate (Hydroxychloroquine 200mg Tab) 200 mg PO BID [facility] Last Admin: 05/05/23 20:22 Dose: 200 mg Isosorbide Dinitrate (Isosorbide Dinit 20 Mg Tab) 20 mg PO TID [facility] Last Admin: 05/05/23 20:24 Dose: 20 mg Methocarbamol (Methocarbamol 500 Mg Tab) 500 mg PO BID [facility] Last Admin: 05/05/23 20:23 Dose: 500 mg Metoprolol Tartrate (Metoprolol Tar 50 Mg Tab) 50 mg PO TID [facility] Last Admin: 05/05/23 20:24 Dose: 50 mg Ondansetron HCl (Ondansetron 4 Mg/2 Ml Vial) 4 mg IV Q4H PRN PRN Reason: NAUSEA / VOMITING Last Admin: 05/05/23 03:55 Dose: 4 mg Ondansetron HCl (Ondansetron 4 Mg (Odt) Tab) 4 mg PO Q6H PRN PRN Reason: NAUSEA / VOMITING Last Admin: 05/04/23 21:20 Dose: 4 mg Sertraline HCl (Sertraline Hcl 50 Mg Tab) 50 mg PO DAILY [facility] Last Admin: 05/05/23 09:57 Dose: 50 mg Sodium Chloride (Flush Normal Saline 10 Ml) 10 ml IV BID [facility] Last Admin: 05/05/23 20:26 Dose: 10 ml Zolpidem Tartrate (Zolpidem Tartrate 10 Mg Tablet) 10 mg PO BEDTIME [facility] Last Admin: 05/04/23 21:00 Dose: 10 mg Microbiology Results 05/03/23 11:35 Blood - Blood Aerobic Blood Culture - Preliminary No growth in 24 hours. 05/03/23 11:35 Blood - Blood Anaerobic Blood Culture - Final 05/03/23 11:20 Blood - Blood Aerobic Blood Culture - Preliminary No growth in 24 hours. 05/03/23 11:20 Blood - Blood Anaerobic Blood Culture - Final 05/03/23 11:58 Nasopharnyx Influenza Type A Antigen Screen - Final 05/03/23 11:58 Nasopharnyx Influenza Type B Antigen Screen - Final Assessment/ Plan: Nephrology No dyspnea No chest pain Diffuse chest pain No acute events overnight Vitals, medications, blood work and imaging reviewed in the chart General: Oriented x3, Cooperative, Mild distress HEENT: Atraumatic Neck: Supple Respiratory: Clear to auscultation bilaterally, Normal air movement Cardiovascular: No edema, Regular rate/rhythm Gastrointestinal: No guarding, Distended, Tenderness Musculoskeletal: No clubbing, No contractures Integumentary: No rashes, No cyanosis Neurological: Normal speech Laboratory Data (last 24 hrs) 05/03/23 05/03/23 05/03/23 11:20 11:20 11:20 WBC 5.10 Hgb 10.4 L Hct 32.2 L Plt Count 324 PT 17.1 H INR 1.55 APTT 35.4 Sodium 138 Potassium 3.5 BUN 27 H Creatinine 2.55 H Glucose 95 Phosphorus 3.2 Magnesium 2.0 Total Bilirubin 0.1 L AST 20 ALT 23 Alkaline Phosphatase 133 H Imagings Data: [id number] EXAM DESCRIPTION: CT - Chest Abd Pelvis Wo Con - 05/03/2023 12:29 pm CLINICAL HISTORY: Chest pain COMPARISON: December 2022 TECHNIQUE: Computed axial tomography of the chest, abdomen and pelvis was obtained. Oral contrast was given. IV contrast was not requested. All CT scans are performed using dose optimization technique as appropriate and may include automated exposure control or mA/KV adjustment according to patient size. FINDINGS: The evaluation of mediastinum, arina, vessels and solid organs is limited secondary to the lack of IV contrast administration The lungs are clear No mediastinal or hilar lymphadenopathy is seen. A pleural effusion is not present. Small to moderate pericardial effusion The liver, spleen, pancreas, adrenals and left kidney appear grossly normal Tiny nonobstructing right renal calculus Marked laxity of the anterior abdominal wall. In addition there are several small right ventral hernias above level of the iliac crest. One contains nondilated small bowel. Mild dilatation portions of colon containing liquid stool. Small bowel caliber is normal No evidence of diverticulitis IMPRESSION: Small to moderate pericardial effusion Mild dilatation of portions of the colon probably not an obstruction. If the patient's symptoms persist followup abdominal plain film series would be recommended EXAM DESCRIPTION: RAD - Chest Single View - 05/03/2023 11:51 am CLINICAL HISTORY: FEVER Chest pain. COMPARISON: Chest Single View dated 02/15/2023; Chest Single View dated 01/11/2023; Chest Single View dated 01/08/2023; Chest Single View dated 01/08/2023 FINDINGS: Portable technique limits examination quality. Mild interstitial pulmonary edema. The heart is moderately enlarged. No displaced fractures. IMPRESSION: Mild CHF. EXAM DESCRIPTION: CT - Head Brain Wo Cont - 05/03/2023 12:25 pm CLINICAL HISTORY: Headache/hypertension emergency COMPARISON: None TECHNIQUE: Computed axial tomography of the head was obtained. IV contrast was not requested. All CT scans are performed using dose optimization technique as appropriate and may include automated exposure control or mA/KV adjustment according to patient size. FINDINGS: An intracranial bleed is not seen The ventricles are normal in caliber No extra-axial fluid collection is noted. Mild to moderate low-density areas within periventricular, deep and subcortical white matter likely represent ischemic changes secondary to small vessel disease. Fluid within the sinuses/ mastoids is not seen. 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
[2023-05-05] MEDS ORDERED: AMLODIPINE 10 MG TAB PO SCH (21:00)
[2023-05-05] MEDS: ZOLPIDEM TARTRATE 10 MG TABLET PO SCH (21:00)
[2023-05-05] MEDS ORDERED: ESZOPICLONE 1 MG TAB PO PRN (21:23)
--- NOTE | 2023-05-05 21:37 | P.PN ---
Date of Service: 05/05/23 Subjective Patient states she is doing much better. Patient denies any complaints. Sugars are stable. Pain is better controlled. Physical Examination - Vital Signs reviewed - Physical Exam General: Alert, In no apparent distress, Oriented x3 HEENT: Patient with scalp lesions Respiratory: Clear to auscultation bilaterally, Normal air movement Cardiovascular: Regular rate/rhythm, Normal S1 S2 Gastrointestinal: Normal bowel sounds, Soft and benign, Non-distended, No tenderness Musculoskeletal: No clubbing, No tenderness, Swelling Neurological: No focal deficits, Abnormal gait, Abnormal strength Assessment & Plan - Problems (Diagnosis) (1) Hypertensive emergency Current Visit: Yes Status: Acute (2) Diabetes mellitus type II, uncontrolled Onset Date: 02/18/15 Current Visit: No Status: Chronic Qualified Code(s): E11.65 - Type 2 diabetes mellitus with hyperglycemia; Z79.4 - 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 BP controlled; catapres patch as well as hydralazine and Imdur combination 2. Monitor renal function; improved 3. Monitor neuro status-stable 4. Continue with pain control 5. Immunosuppressants 6. Monitor BS control 7. GI/DVT prophylaxis Discharge Plan: Home Plan to discharge in: Greater than 2 days - Advance Directives Does patient have a Living Will: No Does patient have a Durable POA for Healthcare: No - Code Status/Comfort Care Code Status Assessed: Yes Code Status: Full Code Critical Care: No Time Spent Managing PTS Care (In Minutes): 25
[2023-05-06] MEDS: HYDROMORPHONE HCL 2 MG/ML inj IV PRN ×4 (01:00→19:28)
[2023-05-06] MEDS: ONDANSETRON 4 MG/2 ML VIAL IV PRN ×4 (02:41→18:55)
[2023-05-06] MEDS: PROMETHAZINE INJ 25 MG/ML AMP IV PRN ×2 (04:13→10:31)
[2023-05-06] MEDS ORDERED: PROMETHAZINE INJ 25 MG/ML AMP ONE ×2 (04:20→15:44)
[2023-05-06 04:21] LABS: Albumin 3.6 g/dL (3.4-5.0); Bilirubin Total 0.3 mg/dL (0.2-1.0); Potassium 3.9 mEq/L (3.5-5.1); Protein, Total 7.6 g/dL (6.4-8.2)
[2023-05-06] MEDS: DOXAZOSIN 4 MG TAB PO SCH ×2 (09:00→21:34)
[2023-05-06] MEDS: LEMBOREXANT 5 MG PO SCH ×2 (09:00→21:00)
[2023-05-06] MEDS ORDERED: NIFEDIPINE XL 90 MG TABLET PO SCH (09:00)
[2023-05-06] MEDS: dexAMETHasone 4 MG/ML VIAL IV SCH ×2 (11:08→21:28)
[2023-05-06] MEDS: HYDROXYCHLOROQUINE 200MG TAB PO SCH ×2 (11:09→21:35)
[2023-05-06] MEDS ORDERED: DOXAZOSIN 2 MG TAB ONE ×2 (11:09→21:32)
[2023-05-06] MEDS: METOPROLOL TAR 50 MG TAB PO SCH ×2 (11:10→21:32)
[2023-05-06] MEDS: CALCITROL 0.25 MCG CAP PO SCH (11:10)
[2023-05-06] MEDS: APIXABAN 5 MG TABLET PO SCH ×2 (11:10→21:57)
[2023-05-06] MEDS: NIFEDIPINE XL 90 MG TABLET PO SCH ×2 (11:11→21:32)
[2023-05-06] MEDS: methocarbamoL 500 MG TAB PO SCH ×2 (11:11→21:32)
[2023-05-06] MEDS: ENALAPRIL 2.5 MG TAB PO SCH ×2 (11:12→21:33)
[2023-05-06] MEDS: AMIODARONE HCL 200 MG TAB PO SCH (11:12)
[2023-05-06] MEDS: FUROSEMIDE 20 MG TABLET PO SCH ×2 (11:12→17:00)
[2023-05-06] MEDS: ISOSORBIDE DINIT 20 MG TAB PO SCH ×3 (11:13→21:32)
[2023-05-06] MEDS: SERTRALINE HCL 50 MG TAB PO SCH (11:13)
[2023-05-06] MEDS: HYDRALAZINE HCL 25 MG TABLET PO SCH ×3 (11:14→21:33)
[2023-05-06] MEDS: HOME MED 1 EA UNK (Mycophenolate Mofetil [Cellcept] 500 MG Tablet) PO SCH ×2 (11:15→21:35)
[2023-05-06] MEDS: LABETALOL 20 MG/4ML SYRINGE IV PRN (13:47)
[2023-05-06] MEDS ORDERED: PROMETHAZINE INJ 25 MG/ML AMP IV ONE (15:17)
[2023-05-06] MEDS ORDERED: LORazepam 2 MG/ML VIAL IV ONE (16:47)
[2023-05-06] MEDS ORDERED: SODIUM CHLORIDE 0.9% 10ML INJ IV PRN (16:49)
[2023-05-06] MEDS ORDERED: PANTOPRAZOLE 40 MG INJ IVP ONE (16:49)
--- NOTE | 2023-05-06 17:21 | RAD REPORT ---
EXAM DESCRIPTION: RAD - Abdomen Single View - 05/06/2023 5:07 pm CLINICAL HISTORY: Abdominal pain FINDINGS: Overall no significant change in the mildly to moderately dilated colon within the central lower abdomen. Air within the remainder the bowel diminished. This could represent an ileus or parti al obstruction No significant abnormal calcification displayed
--- NOTE | 2023-05-06 17:22 | RAD REPORT ---
EXAM DESCRIPTION: Fredo Single View05/06/2023 5:07 pm CLINICAL HISTORY: sob COMPARISON: May 03, 2023 FINDINGS: The lungs appear clear of acute infiltrate. The heart is mildly to moderately enlarged IMPRESSION: No acute abnormalities displayed
[2023-05-06 17:39] VITALS: BMI 32.5
--- NOTE | 2023-05-06 18:01 | RAD REPORT ---
EXAM DESCRIPTION: USExtremity Venous Uni Ltd05/06/2023 5:44 pm CLINICAL HISTORY: Left arm pain COMPARISON: None FINDINGS: The left internal jugular,subclavian,basilic, ulnar and radial veins are generally compre ssible and demonstrate augmentation. Echogenic material consistent with thrombus is present within the brachial vein. The vein is noncompr essible. Due to lack of patient cooperation left axillary and cephalic veins could not be imaged Doppler demonstrates good flow. Grayscale, color and spectral analysis performed on all vessels IMPRESSION: Acute thrombus left brachial vein
[2023-05-06] MEDS ORDERED: HYDROMORPHONE HCL 1 MG/ML INJ IV PRN (20:24)
[2023-05-06] MEDS: ZOLPIDEM TARTRATE 10 MG TABLET PO SCH (21:00)
[2023-05-06] MEDS ORDERED: BISACODYL 10 MG RECTAL SUPP PR ONE (21:08)
[2023-05-06] MEDS ORDERED: LORazepam 2 MG/ML VIAL IV PRN (21:18)
[2023-05-06] MEDS: ATORVASTATIN 20 MG TAB PO SCH (21:35)
--- NOTE | 2023-05-06 21:59 | P.PN ---
Date of Service: 05/06/23 Vital Signs Temp Pulse Resp BP Pulse Ox 97.0 F 98 H 17 236/115 H 96 05/06/23 20:00 05/06/23 21:34 05/06/23 20:00 05/06/23 21:34 05/06/23 20:00 Medications Acetaminophen (Acetaminophen 500 Mg Tab) 500 mg PO Q6H PRN PRN Reason: Pain scale 2-4 (Mild)/Fever Hydrocodone Bitart/Acetaminophen (Hydrocodone/Apap 10/325 Tab) 1 tab PO Q6H PRN PRN Reason: Pain scale 5-7 (Moderate) Last Admin: 05/05/23 12:39 Dose: 1 tab Apixaban (Apixaban 5 Mg Tablet) 5 mg PO BID [facility] Last Admin: 05/06/23 11:10 Dose: 5 mg Atorvastatin Calcium (Atorvastatin 20 Mg Tab) 20 mg PO BEDTIME [facility] Last Admin: 05/06/23 21:35 Dose: 20 mg Calcitriol (Calcitrol 0.25 Mcg Cap) 0.25 mcg PO Q48H [facility] Last Admin: 05/06/23 11:10 Dose: 0.25 mcg Clonidine HCl (Clonidine 0.3 Mg/Patch) 0.3 mg TD EVERY 7TH DAY [facility] Last Admin: 05/04/23 15:42 Dose: 0.3 mg Dexamethasone (Dexamethasone 4 Mg/Ml Vial) 2 mg IV Q12HR [facility] Last Admin: 05/06/23 21:28 Dose: 2 mg Doxazosin Mesylate (Doxazosin 4 Mg Tab) 4 mg PO BID [facility] Last Admin: 05/06/23 21:34 Dose: 4 mg Enalapril Maleate (Enalapril 2.5 Mg Tab) 5 mg PO BID [facility] Last Admin: 05/06/23 21:33 Dose: 5 mg Eszopiclone (Eszopiclone 1 Mg Tab) 2 mg PO BEDTIME PRN PRN PRN Reason: INSOMNIA Last Admin: 05/05/23 22:19 Dose: 2 mg Furosemide (Furosemide 20 Mg Tablet) 20 mg PO BIDL [facility] Last Admin: 05/06/23 17:00 Dose: Not Given Gabapentin (Gabapentin 100 Mg Cap) 100 mg PO TID PRN PRN Reason: neuropathy Last Admin: 05/04/23 15:44 Dose: 100 mg Home Med (Lemborexant [Dayvigo]) 5 mg PO BID [facility] Last Admin: 05/06/23 21:00 Dose: Not Given Home Med (Mycophenolate Mofetil [Cellcept]) 1,000 mg PO BID [facility] Last Admin: 05/06/23 21:35 Dose: 1,000 mg Hydralazine HCl (Hydralazine Hcl 25 Mg Tablet) 100 mg PO TID [facility] Last Admin: 05/06/23 21:33 Dose: 100 mg Hydromorphone HCl (Hydromorphone Hcl 1 Mg/Ml Inj) 1 mg IV Q6H PRN PRN Reason: Pain scale 8-10 (Severe) Hydroxychloroquine Sulfate (Hydroxychloroquine 200mg Tab) 200 mg PO BID [facility] Last Admin: 05/06/23 21:35 Dose: 200 mg Dextrose/Sodium Chloride (Dextrose 5% O.45% Saline) 1,000 mls @ 75 mls/hr IV .[id number] [facility] Isosorbide Dinitrate (Isosorbide Dinit 20 Mg Tab) 20 mg PO TID [facility] Last Admin: 05/06/23 21:32 Dose: 20 mg Labetalol HCl (Labetalol 20 Mg/4ml Syringe) 20 mg IV Q4H PRN PRN Reason: SBP > 168 Last Admin: 05/06/23 13:47 Dose: 20 mg Lorazepam (Lorazepam 2 Mg/Ml Vial) 0.5 mg IV Q12HP PRN PRN Reason: ANXIETY Methocarbamol (Methocarbamol 500 Mg Tab) 500 mg PO BID [facility] Last Admin: 05/06/23 21:32 Dose: 500 mg Metoprolol Tartrate (Metoprolol Tar 50 Mg Tab) 100 mg PO Q12HR [facility] Last Admin: 05/06/23 21:32 Dose: 100 mg Nifedipine (Nifedipine Xl 90 Mg Tablet) 90 mg PO Q12HR [facility] Last Admin: 05/06/23 21:32 Dose: 90 mg Ondansetron HCl (Ondansetron 4 Mg/2 Ml Vial) 4 mg IV Q4H PRN PRN Reason: NAUSEA / VOMITING Last Admin: 05/06/23 18:55 Dose: 4 mg Ondansetron HCl (Ondansetron 4 Mg (Odt) Tab) 4 mg PO Q6H PRN PRN Reason: NAUSEA / VOMITING Last Admin: 05/04/23 21:20 Dose: 4 mg Sertraline HCl (Sertraline Hcl 50 Mg Tab) 50 mg PO DAILY [facility] Last Admin: 05/06/23 11:13 Dose: 50 mg Sodium Chloride (Flush Normal Saline 10 Ml) 10 ml IV BID [facility] Last Admin: 05/06/23 21:36 Dose: 10 ml Sodium Chloride (Sodium Chloride 0.9% 10ml Inj) 10 ml IV UD PRN PRN Reason: Diluant Zolpidem Tartrate (Zolpidem Tartrate 10 Mg Tablet) 10 mg PO BEDTIME [facility] Last Admin: 05/06/23 21:00 Dose: Not Given Microbiology Results 05/03/23 11:35 Blood - Blood Aerobic Blood Culture - Preliminary No growth in 24 hours. 05/03/23 11:35 Blood - Blood Anaerobic Blood Culture - Final 05/03/23 11:20 Blood - Blood Aerobic Blood Culture - Preliminary No growth in 24 hours. 05/03/23 11:20 Blood - Blood Anaerobic Blood Culture - Final 05/03/23 11:58 Nasopharnyx Influenza Type A Antigen Screen - Final 05/03/23 11:58 Nasopharnyx Influenza Type B Antigen Screen - Final Assessment/ Plan: Nephrology No dyspnea No chest pain Malaise with Nausea No acute events overnight Vitals, medications, blood work and imaging reviewed in the chart General: Oriented x3, Cooperative, Mild distress HEENT: Atraumatic Neck: Supple Respiratory: Clear to auscultation bilaterally, Normal air movement Cardiovascular: No edema, Regular rate/rhythm Gastrointestinal: No guarding, Distended, Tenderness Musculoskeletal: No clubbing, No contractures Integumentary: No rashes, No cyanosis Neurological: Normal speech Laboratory Data (last 24 hrs) 05/03/23 05/03/23 05/03/23 11:20 11:20 11:20 WBC 5.10 Hgb 10.4 L Hct 32.2 L Plt Count 324 PT 17.1 H INR 1.55 APTT 35.4 Sodium 138 Potassium 3.5 BUN 27 H Creatinine 2.55 H Glucose 95 Phosphorus 3.2 Magnesium 2.0 Total Bilirubin 0.1 L AST 20 ALT 23 Alkaline Phosphatase 133 H Imagings Data: [id number] EXAM DESCRIPTION: CT - Chest Abd Pelvis Wo Con - 05/03/2023 12:29 pm CLINICAL HISTORY: Chest pain COMPARISON: December 2022 TECHNIQUE: Computed axial tomography of the chest, abdomen and pelvis was obtained. Oral contrast was given. IV contrast was not requested. All CT scans are performed using dose optimization technique as appropriate and may include automated exposure control or mA/KV adjustment according to patient size. FINDINGS: The evaluation of mediastinum, arina, vessels and solid organs is limited secondary to the lack of IV contrast administration The lungs are clear No mediastinal or hilar lymphadenopathy is seen. A pleural effusion is not present. Small to moderate pericardial effusion The liver, spleen, pancreas, adrenals and left kidney appear grossly normal Tiny nonobstructing right renal calculus Marked laxity of the anterior abdominal wall. In addition there are several small right ventral hernias above level of the iliac crest. One contains nondilated small bowel. Mild dilatation portions of colon containing liquid stool. Small bowel caliber is normal No evidence of diverticulitis IMPRESSION: Small to moderate pericardial effusion Mild dilatation of portions of the colon probably not an obstruction. If the patient's symptoms persist followup abdominal plain film series would be recommended EXAM DESCRIPTION: RAD - Chest Single View - 05/03/2023 11:51 am CLINICAL HISTORY: FEVER Chest pain. COMPARISON: Chest Single View dated 02/15/2023; Chest Single View dated 01/11/2023; Chest Single View dated 01/08/2023; Chest Single View dated 01/08/2023 FINDINGS: Portable technique limits examination quality. Mild interstitial pulmonary edema. The heart is moderately enlarged. No displaced fractures. IMPRESSION: Mild CHF. EXAM DESCRIPTION: CT - Head Brain Wo Cont - 05/03/2023 12:25 pm CLINICAL HISTORY: Headache/hypertension emergency COMPARISON: None TECHNIQUE: Computed axial tomography of the head was obtained. IV contrast was not requested. All CT scans are performed using dose optimization technique as appropriate and may include automated exposure control or mA/KV adjustment according to patient size. FINDINGS: An intracranial bleed is not seen The ventricles are normal in caliber No extra-axial fluid collection is noted. Mild to moderate low-density areas within periventricular, deep and subcortical white matter likely represent ischemic changes secondary to small vessel disease. Fluid within the sinuses/ mastoids is not seen. 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
[2023-05-06] MEDS ORDERED: D5 0.45 NS 1,000 ML IV SCH (22:00)
[2023-05-07] MEDS: ONDANSETRON 4 MG/2 ML VIAL IV PRN ×2 (00:03→05:24)
[2023-05-07] MEDS: LABETALOL 20 MG/4ML SYRINGE IV PRN (01:08)
[2023-05-07 02:42] VITALS: O2SAT 96
[2023-05-07] MEDS: HYDROCODONE/APAP 10/325 TAB PO PRN (02:51)
[2023-05-07 05:27] LABS: Absolute Lymphocytes (CBC) 0.5 K/uL (0.7-4.9); Hematocrit 33.3 % (36.0-45.0); Lymphocytes % 5.8 % (15.3-44.8); MCV 83.5 fL (80-100); MPV 6.4 fL (7.6-11.3); Platelets 317 thou/uL (152-406); RBC Red Blood Cell Count 3.99 M/uL (3.86-4.86)
[2023-05-07 05:47] LABS: Albumin 3.8 g/dL (3.4-5.0); Bilirubin Total 0.4 mg/dL (0.2-1.0); Magnesium 1.9 mg/dL (1.6-2.4); Potassium 3.2 mEq/L (3.5-5.1); Protein, Total 7.7 g/dL (6.4-8.2)
[2023-05-07 05:50] VITALS: BP 182/94; TEMP 97.6
== END 2023-05-07 06:15 | disposition left against medical advice (07) | DRG 305 ==
LOC: ER 10:37 → ERHOLD 16:34 → 2ND 19:57
PROVIDERS: ADMIT Hospitalist; ATTEND Hospitalist
DX: I16.1 Hypertensive emergency (principal); I50.42 Chronic combined systolic (congestive) and diastolic (congestive) heart failure; N17.9 Acute kidney failure, unspecified; N39.0 Urinary tract infection, site not specified; E87.20 Acidosis, unspecified; N18.4 Chronic kidney disease, stage 4 (severe); I82.622 Acute embolism and thrombosis of deep veins of left upper extremity; I13.0 Hypertensive heart and chronic kidney disease with heart failure and stage 1 through stage 4 chronic kidney disease, or unspecified chronic kidney disease; E11.22 Type 2 diabetes mellitus with diabetic chronic kidney disease; E11.65 Type 2 diabetes mellitus with hyperglycemia; D63.1 Anemia in chronic kidney disease; D63.8 Anemia in other chronic diseases classified elsewhere; I48.91 Unspecified atrial fibrillation; E87.6 Hypokalemia; M32.14 Glomerular disease in systemic lupus erythematosus; I25.10 Atherosclerotic heart disease of native coronary artery without angina pectoris; Z88.5 Allergy status to narcotic agent; Z88.8 Allergy status to other drugs, medicaments and biological substances; Z79.4 Long term (current) use of insulin; Z79.01 Long term (current) use of anticoagulants; Z91.013 Allergy to seafood; Z79.899 Other long term (current) drug therapy; Z87.891 Personal history of nicotine dependence; Z20.822 Contact with and (suspected) exposure to COVID-19
CPT/HCPCS: 36415; 70450; 71045; 71250; 74018; 74176; 80053; 80074; 81001; 82550; 82947; 83605; 83735; 83880; 84100; 84145; 84484; 85025; 85610; 85730; 86038; 86140; 86225; 87040; 87635; 87804; 93005; 93971; 96365; 96366; 96375; 99285; C9113; J1100; J1170; J2405; J2550; J7030; J7799; Q0162

== ENCOUNTER 2023-05-11 13:28 | Emergency (ER) | payer OTHER ==
--- OUTSIDE RECORDS SUMMARY | 2023-05-11 13:35 | XMS REPORT | Continuity of Care Document ---
:1970 Author Organization [facility] t Address [address] [place] [address] Care Team Providers Name Role Phone Monico Espinoza DO Primary Care Physician [phone] .[facility] Attending Clinician Unavailable JEAN CARLOS SANDY Attending Clinician Unavailable [email or web address] Attending Clinician Unavailable RADHA MEDINA Attending Clinician Unavailable AKOSUA GRAF Attending Clinician Unavailable Marc WALTER, Akosua De Santiago Attending Clinician Naga Shepherd MD Attending Clinician Jeanna Shrestha Attending Clinician TONY GRAF Attending Clinician Unavailable Ligia Pedro MD Attending Clinician LIGIA PEDRO Attending Clinician Unavailable LIGIA PEDRO Attending Clinician Unavailable Doctor Unassigned, Waterproof Attending Clinician Unavailable ABEL LI Attending Clinician Unavailable [email or web address] Admitting Clinician Unavailable ABEL LI Admitting Clinician Unavailable Payers Payer Name Policy Type Policy Number Effective Date Expiration Date Tess patel [place]ICAID OF [place] [id number] 2014 00:00:00 [facility] [id number] 2017 DUAL COMPLETE 00:00:00 [facility] - [id number] [facility] - DUAL ELIGIBLE (MEDICARE REPLACEMENT/[place] GE - [...] erythemato 00:00: Me dical al al 00 [place] Type 2 Type 2 Disease Recurre 2017-[address] [facility] diabetes diabetes nce -30 [facility] mellitus mellitus 00:00: Medica l with with 00 Center kidney kidney complicati complicati on, with on, with long-term long-term current current use of use of insulin insulin Colostomy Colostomy Disease Recurre 2017-[address] complicati complicati nce -30 Gilda kes on on 00:00: [facility] 00 Center Lupus Lupus Disease Recurre 2017-[address] nephritis nephritis nce -30 [facility] 00:00: [facility] [place] Abdominal Abdominal Disease Active 2017-[address] [facility] pain pain 30 [facility] 00:00: [facility] [place] Essential Essential Disease Active 2017-[address] [facility] [facility] hypertensi hypertensi -30 Gilda kes on on 00:00: [facility] [place] bright red bright red Disease Active 2017-[address] blood in blood in 30 [facility] colostomy colostomy 00:00: Medi valentin 00 Center HTN HTN Disease Active 2017-[address] [facility] (hypertens (hypertens -30 Gilda kes ion), ion), 00:00: Medical malignant malignant 00 Cent er DAE (acute DAE (acute Disease Active 2017-[address] kidney kidney 30 [facility] injury) injury) 00:00: [facility] 00 [place] Hypernatre Hypernatre Disease Active 2017-[address] charisse charisse 30 [facility] 00:00: [facility] [place] Hypokalemi Hypokalemi Disease Active 2017-[address] a a 30 [facility] 00:00: [facility] 00 [place] Bowel Bowel Disease Active Univers obstructio obstructio 3-20 it y of n n 00:00: [place] [facility] Branch Colonic Colonic Disease Active Univers obstructio obstructio 3-19 it y of n n 00:00: [address] Branch Colostomy Colostomy Disease Active Met hodi in place in place 02-23 00:00: Hospita 00 l Seizure Seizure Disease Active Univers 9-21 ity of 00:00: [address] Branch Obesity Obesity Disease Recurre Univer s (BMI (BMI nce 9-20 ity of 30-39.9) 30-39.9) 00:00: [place] 00 Medical Branch Pulmonary Pulmonary Disease Active Uni vers edema edema 8-28 ity of 00:00: [place] [facility] Systemic Systemic Disease Recurre Univ ers lupus lupus nce 2-23 ity of erythemato erythemato 00:00: Young melendez 00 Medical Branch Depression Depression Disease Active U nivers , major , major 2-18 ity of 00:00: Medical Branch DAE (acute DAE (acute Disease Active U nivers kidney kidney 2-12 ity of injury) injury) 00:00: [place] [facility] HTN HTN Disease Active Univers (hypertens (hypertens 2-12 it y of ion) ion) 00:00: [place] [facility] Lupus Lupus Disease Active Univers nephritis nephritis 2-11 ity of 00:00: [place] [facility] Allergies, Adverse Reactions, Alerts Allergy Allergy Status Severity Reaction(s) Onset Inactive Treating Comm ents Source Name Type Date Date Clinician METOCLOP DRUG Active Swelling 2021-08 Univer s RAMIDE INGREDI 1-30 ity of 00:00: [place] [facility] PREDNISO DRUG Active Other-Cmnt 2021-08 Univ ers NE INGREDI 1-30 ity of 00:00: Medical Branch Predniso Propensi Active Other - See 2021-08 Made nikki r Univers ne ty to comments 1-30 fall out ity of adverse 00:00: and [...] aaliyah INGREDI 05-13 ity of 00:00: [place] [facility] Morphine Propensi Active Palpitations Methodi ty to 05-13 st adverse 00:00: Hospita reaction 00 l s to drug Family History Family Member Diagnosis Comments Start Date Stop Date Source Natural father [facility] Natural father Kidney [facility] Natural mother Uterine cancer Method [facility] Natural mother Cancer [facility] Natural mother Hypertension [facility] Natural sister Diabetes [facility] Social History Social Habit Start Date Stop Date Quantity Comments Source History SDOH [facility] Alcohol Comment Medical C enter Gender identity [facility] Sexual orientation Method [facility] Hospital History SDOH [facility] Alcohol Std Drinks [facility] History SDOH [facility] Alcohol Binge Medical [address] Exposure to 2022 2022-07-28 Not sure University of SARS-CoV-2 (event) 00:00:00 09:52:00 [facility] History of Social 2019-09-12 2019-09-[address] function 00:00:00 00:00:00 Hospital Alcohol intake 2018-07-28 2018-07-[address] [facility] es 00:00:00 00:00:00 non-drinker of Medical Ce nter alcohol (finding) History SDOH 2018-07-28 2018-07-[address] [facility] Alcohol Frequency 00:00:00 00:00:00 Medical Center Tobacco use and 2016-05-13 2016-05-13 Smokeless Universit y of exposure 00:00:00 00:00:00 tobacco non-user [facility] Sex Assigned At [address] Gilda kes 00:00:00 00:00:00 Medical Center Smoking Status Start Date Stop Date Source Never smoked tobacco [facility] Medications Ordered Filled Start Stop Current Ordering [...] mouth ity of (LEXAPRO) 12:12: in the [place] 20 mg 20 morning. Medical tablet Branch [...] Fri Medica l NaCl 0.9% 03/27/21 at [place] [facility] ch (NS) 50 mL 0230, 50 piggyback mL FENTanyl PF 2020- No 100ug 100 mcg, Univers (SUBLIMAZE 03-27 Slow IV ity o f (PF)) 07:30: 06:31 Push, [place] injection 00 :00 ONCE, 1 Medical 100 mcg dose, Fri Branch 03/27/21 at 0230, Routine amoxicillin Yes [id number] 875mg Take 1 Univers 875 mg 5-20 [id number] tablet by ity of tablet 00:00: mouth 2 [place] 00 (two) Medical times Branch daily. amoxicillin Yes [id number] 875mg Take 1 Univers 875 mg 5-20 [id number] tablet by ity of tablet 00:00: mouth 2 [place] 00 (two) Medical times Branch daily. amoxicillin Yes [id number] 875mg Take 1 Univers 875 mg 5-20 [id number] tablet by ity of tablet 00:00: mouth 2 [place] 00 (two) Medical times Branch daily. neomycin-po 2020- No [id number] 3[drp] Place 3 Univers lymyxin-hyd 5-20 05-28 [id number] Drops in it y of rocortisone 00:00: 04:59 right ear [place] 3.5-10,000- 00 :00 4 (four) Medi valentin 1 times [place] mg/mL-unit/ daily for mL-% otic 7 days. susp hydroxychlo Yes 500mg Q.5D Take 500 M [...] 22:02: mouth Hospita tablet 14 daily. l sertraline 2020-0 Yes 25mg QD Take 25 [...] 16:02: mouth Hospita tablet 14 daily. l sertraline 2020-0 Yes 25mg QD Take 25 [...] times a day as needed for anxiety. doxazosin 2017-08 Yes 4mg Take [address] (CARDURA) 2 2-04 by mouth. Jose es MG tablet 08:16: [address] pantoprazol 2017-08 Yes 40mg QD Take [address] [facility] e 2-04 by mouth [facility] (PROTONIX) 08:16: daily. Medic al 40 MG 44 Center tablet doxazosin 2017-08 Yes 4mg Take [address] (CARDURA) 2 2-04 by mouth. Jose es MG tablet 08:16: [address] pantoprazol 2017-08 Yes 40mg QD Take [address] [facility] e 2-04 by mouth [facility] (PROTONIX) 08:16: daily. Medic al 40 MG 44 Center tablet doxazosin 2017-08 Yes 4mg Take [address] (CARDURA) 2 2-04 by mouth. Jose es MG tablet 08:16: [address] pantoprazol 2017-08 Yes 40mg QD Take [address] [facility] e 2-04 by mouth [facility] (PROTONIX) 08:16: daily. Medic al 40 MG 44 Center tablet doxazosin 2018- Yes 4mg Take [address] (CARDURA) 2 2-04 by mouth. Jose es MG tablet 08:16: [address] pantoprazol 2017-08 Yes 40mg QD Take [address] [facility] e 2-04 by mouth [facility] (PROTONIX) 08:16: daily. Medic al 40 MG 44 Center tablet doxazosin 2017-08 Yes 4mg Take [address] (CARDURA) 2 2-04 by mouth. Jose es MG tablet 08:16: [address] pantoprazol 2017-08 Yes 40mg QD Take [address] [facility] e 2-04 by mouth [facility] (PROTONIX) 08:16: daily. Medic al 40 MG 44 Center tablet doxazosin 2017-08 Yes 4mg Take [address] (CARDURA) 2 2-04 by mouth. Jose es MG tablet 08:16: [address] pantoprazol 2017-08 Yes 40mg QD Take [address] [facility] e 2-04 by mouth [facility] (PROTONIX) 08:16: daily. Medic al 40 MG 44 Center tablet doxazosin 2017- Yes 4mg Take [address] (CARDURA) 2 2-04 by mouth. Jose es MG tablet 08:16: [address] pantoprazol 2017- Yes 40mg QD Take [address] [facility] e 2-04 by mouth [facility] (PROTONIX) 08:16: daily. Medic al 40 MG 44 Center tablet doxazosin 2017- Yes 4mg Take [address] (CARDURA) 2 2-04 by mouth. Jose es MG tablet 08:16: [address] pantoprazol 2017- Yes 40mg QD Take [address] [facility] e 2-04 by mouth [facility] (PROTONIX) 08:16: daily. Medic al 40 MG 44 Center tablet doxazosin 2018- Yes 4mg Take [address] (CARDURA) 2 2-04 by mouth. Jose es MG tablet 08:16: [address] pantoprazol 2017- Yes 40mg QD Take [address] [facility] e 2-04 by mouth [facility] (PROTONIX) 08:16: daily. Medic al 40 MG 44 [facility] zolpidem 2017-08 Yes 10mg QD Take [address] (AMBIEN) 10 1-25 by mouth Luke s mg tablet 00:00: nightly. [address] zolpidem 2017-08 Yes 10mg QD Take [address] (AMBIEN) 10 1-25 by mouth Luke s mg tablet 00:00: nightly. [address] zolpidem 2017-08 Yes 10mg QD Take [address] (AMBIEN) 10 1-25 by mouth Luke s mg tablet 00:00: nightly. [address] zolpidem 2017-08 Yes 10mg QD Take [address] (AMBIEN) 10 1-25 by mouth Luke s mg tablet 00:00: nightly. [address] zolpidem 2017-08 Yes 10mg QD Take [address] (AMBIEN) 10 1-25 by mouth Luke s mg tablet 00:00: nightly. [address] zolpidem 2017-08 Yes 10mg QD Take [address] (AMBIEN) 10 1-25 by mouth Luke s mg tablet 00:00: nightly. [address] zolpidem 2017-08 Yes 10mg QD Take [address] (AMBIEN) 10 1-25 by mouth Luke s mg tablet 00:00: nightly. [address] zolpidem 2017-08 Yes 10mg QD Take [address] (AMBIEN) 10 1-25 by mouth Luke s mg tablet 00:00: nightly. [address] zolpidem 2017-08 Yes 10mg QD Take [address] (AMBIEN) 10 1-25 by mouth Luke s mg tablet 00:00: nightly. [address] ondansetron 2017-08 Yes DIS [address] [facility] (ZOFRAN-ODT 1-23 THE TONGUE Gilda kes ) 8 MG 00:00: BID Medical disintegrat [address] [place] [address] ing tablet ondansetron 2017-08 Yes DIS [address] [facility] (ZOFRAN-ODT 1-23 THE TONGUE Gilda kes ) 8 MG 00:00: BID Medical disintegrat [address] [place] [address] ing tablet ondansetron 2017-08 Yes DIS [address] [facility] (ZOFRAN-ODT 1-23 THE TONGUE Gilda kes ) 8 MG 00:00: BID Medical disintegrat 00 Center ing tablet ondansetron 2018- Yes DIS [address] [facility] (ZOFRAN-ODT 1-23 THE TONGUE Gilda kes ) 8 MG 00:00: BID Medical disintegrat 00 Center ing tablet ondansetron 2018- Yes DIS [address] [facility] (ZOFRAN-ODT 1-23 THE TONGUE Gilda kes ) 8 MG 00:00: BID Medical disintegrat 00 Center ing tablet ondansetron 2018- Yes DIS [address] [facility] (ZOFRAN-ODT 1-23 THE TONGUE Gilda kes ) 8 MG 00:00: BID Medical disintegrat 00 Center ing tablet ondansetron 2017- Yes DIS [address] [facility] (ZOFRAN-ODT 1-23 THE TONGUE Gilda kes ) 8 MG 00:00: BID Medical disintegrat 00 Center ing tablet ondansetron 2018- Yes DIS [address] [facility] (ZOFRAN-ODT 1-23 THE TONGUE Gilda kes ) 8 MG 00:00: BID Medical disintegrat 00 Center ing tablet ondansetron 2017- Yes DIS [address] [facility] [...] 00 Center 10-325 mg per tablet HYDROcodone 2018-1 Yes TK 1 T PO C HI [...] [facility]ukes 100 MG 00:00: Medical capsule 00 [place] [facility] 2017-08 Yes TK [address] [facility] roquine 0-10 D [facility] (PLAQUENIL) 00:00: Medica l 200 mg 00 Center tablet gabapentin 2017-08 Yes TK [address] [facility] (NEURONTIN) 0-10 HS PRN [facility] 100 MG 00:00: Medical capsule 00 [place] hydroxychlo 2017-08 Yes TK [address] [facility] roquine 0-10 D [facility] (PLAQUENIL) 00:00: Medica l 200 mg 00 Center tablet gabapentin 2017-08 Yes TK [address] [facility] (NEURONTIN) 0-10 HS PRN [facility] 100 MG 00:00: Medical capsule 00 [place] hydroxychlo 2017-08 Yes TK [address] [facility] roquine 0-10 D [facility] (PLAQUENIL) 00:00: Medica l 200 mg 00 Center tablet gabapentin 2017-08 Yes TK [address] [facility] (NEURONTIN) 0-10 HS PRN [facility] 100 MG 00:00: Medical capsule 00 [facility] 2017-08 Yes TK [address] [facility] roquine 0-10 D [facility] (PLAQUENIL) 00:00: Medica l 200 mg 00 Center tablet gabapentin 2017-08 Yes TK [address] [facility] (NEURONTIN) 0-10 HS PRN [facility] 100 MG 00:00: Medical capsule 00 [place] hydroxychlo 2017-08 Yes TK [address] [facility] roquine 0-10 D [facility] (PLAQUENIL) 00:00: Medica l 200 mg 00 Center tablet gabapentin 2017-08 Yes TK [address] [facility] (NEURONTIN) 0-10 HS PRN [facility] 100 MG 00:00: Medical capsule 00 [place] hydroxychlo 2017-08 Yes TK [address] [facility] roquine 0-10 D [facility] (PLAQUENIL) 00:00: Medica l 200 mg 00 Center tablet gabapentin 2017-08 Yes TK [address] [facility] (NEURONTIN) 0-10 HS PRN [facility] 100 MG 00:00: Medical capsule 00 [place] hydroxychlo 2017-08 Yes TK [address] [facility] roquine 0-10 D [facility] (PLAQUENIL) 00:00: Medica l 200 mg 00 Center tablet gabapentin 2017-08 Yes TK [address] [facility] (NEURONTIN) 0-10 HS PRN [facility] 100 MG 00:00: Medical capsule 00 [place] hydroxychlo 2017-08 Yes TK [address] [facility] roquine 0-10 D [facility] (PLAQUENIL) 00:00: Medica l 200 mg 00 Center tablet gabapentin 2017-08 Yes TK [address] [facility] (NEURONTIN) 0-10 HS PRN [facility] 100 MG 00:00: Medical capsule 00 [place] hydroxychlo 2017-08 Yes TK [address] [facility] roquine 0-10 D [facility] (PLAQUENIL) 00:00: Medica l 200 mg 00 Center tablet doxazosin Yes 4mg Take 4 mg Uni vers (CARDURA) 2 3-21 by mouth ity of mg tablet 20:00: daily. [address] Branch metoprolol Yes 100mg Take 100 Un [...] mouth ity of 10 mg 20:00: daily. [place] tablet 52 Medical Branch doxazosin 2018-0 Yes 4mg Take 4 mg Uni vers (CARDURA) 4 3-21 by mouth ity of mg tablet 20:00: daily. [place] [address] Medical Branch zolpidem 2018-0 Yes 10mg Take [...] mouth ity of mg tablet 20:00: daily. [place] [address] Medical Branch metoprolol 2018-0 Yes 100mg Take [...] mouth ity of 10 mg 20:00: daily. [place] tablet 52 Medical Branch doxazosin 2018-0 Yes 4mg Take 4 mg Uni vers (CARDURA) 4 3-21 by mouth ity of mg tablet 20:00: daily. [place] [address] Medical Branch zolpidem 2018-0 Yes 10mg Take [...] mouth ity of mg tablet 20:00: daily. [place] [address] Medical Branch metoprolol 2018-0 Yes 100mg Take [...] mouth ity of 10 mg 20:00: daily. [place] [address] Medical Branch doxazosin 2018-0 Yes 4mg Take 4 mg Uni vers (CARDURA) 4 3-21 by mouth ity of mg tablet 20:00: daily. [place] [address] Medical Branch zolpidem 2018-0 Yes 10mg Take [...] mouth ity of mg tablet 20:00: daily. [place] [address] Medical Branch metoprolol 2018-0 Yes 100mg Take [...] mouth ity of 10 mg 20:00: daily. [place] tablet 52 Medical Branch doxazosin 2018-0 Yes 4mg Take 4 mg Uni vers (CARDURA) 4 3-21 by mouth ity of mg tablet 20:00: daily. [place] [address] Medical Branch zolpidem 2018-0 Yes 10mg Take 10 mg Uni vers (AMBIEN) 10 3-21 by mouth ity of mg tablet 20:00: [place]time [place] 52 as needed Medical for Branch Insomnia. hydroxychlo 2018-0 Yes 200mg Take 200 U nivers roquine 3-21 mg by ity of (PLAQUENIL) 20:00: mouth [place] 200 mg 52 daily. Medical tablet Branch doxazosin [address] Yes 4mg Take 4 mg Uni vers (CARDURA) 2 3-21 by mouth ity of mg tablet 20:00: daily. [place] [address] Medical Branch metoprolol 2017-0 Yes 100mg Take [...] mouth ity of 10 mg 20:00: daily. [place] tablet 52 Medical Branch doxazosin 2017-0 Yes 4mg Take 4 mg Uni vers (CARDURA) 4 3-21 by mouth ity of mg tablet 20:00: daily. [place] [address] Medical Branch zolpidem 2017-0 Yes 10mg Take [...] mouth ity of mg tablet 15:00: daily. [place] [address] Medical Branch metoprolol 2018-0 Yes 100mg Take 100 Un [place] succinate 3-21 mg by ity of XL (TOPROL 15:00: mouth 2 [place] XL) 100 mg 52 (two) Medical 24 hr times Branch tablet daily. amLODIPine Yes 10mg Take 10 mg U nivers (NORVASC) 3-21 by mouth ity of 10 mg 15:00: daily. [place] [address] Medical Branch doxazosin Yes 4mg Take 4 mg Uni vers (CARDURA) 4 3-21 by mouth ity of mg tablet 15:00: daily. [place] [address] Medical Branch zolpidem Yes 10mg Take 10 [...] -acetaminop 9-24 tablet by ity of hen ([employer]) 00:00: mouth [place] 10-325 mg 00 every 6 Medical tablet (six) Branch hours as needed for Pain (scale 7-10). HYDROcodone 2016-0 Yes 1{tbl} Take 1 Un [place] -acetaminop 9-24 tablet by ity of hen ([employer]) 00:00: mouth [place] 10-325 mg 00 every 6 Medical tablet (six) Branch hours as needed for Pain (scale 7-10). HYDROcodone 2016-0 Yes 1{tbl} Take 1 Un [place] -acetaminop 9-24 tablet by ity of hen ([employer]) 00:00: mouth [place] 10-325 mg 00 every 6 Medical tablet (six) Branch hours as needed for Pain (scale 7-10). HYDROcodone 2016-0 Yes 1{tbl} Take 1 Un [place] -acetaminop 9-24 tablet by ity of hen ([employer]) 00:00: mouth [place] 10-325 mg 00 every 6 Medical tablet (six) Branch hours as needed for Pain (scale 7-10). HYDROcodone 2016-0 Yes 1{tbl} Take 1 Un [place] -acetaminop 9-24 tablet by ity of hen ([employer]) 00:00: mouth [place] 10-325 mg 00 every 6 Medical tablet (six) Branch hours as needed for Pain (scale 7-10). HYDROcodone 2016-0 Yes 1{tbl} Take 1 Un [place] -acetaminop 9-24 tablet by ity of hen ([employer]) 00:00: mouth [place] 10-325 mg 00 every [...] QHS. ity of 2 mg tablet 00:00: [facility] Branch [facility] ER Yes TK ONE C Uni vers 10 mg CR12 8-22 PO Q 12 H ity of 00:00: PRN. [facility] Branch tiZANidine Yes TK 1 T PO Un [place] (ZANAFLEX) 8-22 QHS. ity of 2 mg tablet 00:00: [facility] ER Yes TK ONE C Uni vers 10 mg CR12 8-22 PO Q 12 H ity of 00:00: PRN. Medical Branch tiZANidine Yes TK 1 T PO Un [place] (ZANAFLEX) 8-22 QHS. ity of 2 mg tablet 00:00: [facility] ER Yes TK ONE C Uni vers 10 mg CR12 8-22 PO Q 12 H ity of 00:00: PRN. [facility] Branch tiZANidine Yes TK 1 T PO Un [place]ah (ZANAFLEX) 8-22 QHS. ity of 2 mg tablet 00:00: [facility] ER Yes TK ONE C Uni vers 10 mg CR12 8-22 PO Q 12 H ity of 00:00: PRN. Medical Branch tiZANidine Yes TK 1 T PO Un [place] (ZANAFLEX) 8-22 QHS. ity of 2 mg tablet 00:00: [facility] ER Yes TK ONE C Uni vers [...] ity of 00:00: Medical Branch ONE TOUCH Yes U TID. Univer s DELICA 33 6-12 ity of gauge Misc 00:00: Medical Branch ONE TOUCH Yes U TID. Univer s DELICA 33 6-12 ity of gauge Misc 00:00: Medical Branch ONE TOUCH 2016-0 Yes U TID. Univer s DELICA 33 6-12 ity of gauge Misc 00:00: [place] 00 Medical Branch ONE TOUCH 2016-0 Yes U TID. Univer s DELICA 33 6-12 ity of gauge Misc 00:00: [place] 00 Medical Branch ONE TOUCH 2016-0 Yes U TID. Univer s DELICA 33 6-12 ity of gauge Misc 00:00: Medical Branch ONE TOUCH 2016-0 Yes U [...] strip 00:00: [place] 00 Medical Branch ONETOUCH Yes Univers ULTRA TEST 2-21 ity [...] strip 00:00: [place] 00 Medical Branch amLODIPine 2015- Yes 10mg Take [address] (NORVASC) 2-11 by mouth. [facility] 10 MG 00:00: Medical tablet 00 [place] amLODIPine 2014-08 Yes 10mg Take [address] (NORVASC) 2-11 by mouth. [facility] 10 MG 00:00: Medical tablet 00 [place] amLODIPine 2014-08 Yes 10mg Take [address] (NORVASC) 2-11 by mouth. [facility] 10 MG 00:00: Medical tablet 00 [place] amLODIPine 2014-08 Yes 10mg Take [address] (NORVASC) 2-11 by mouth. [facility] 10 MG 00:00: Medical tablet 00 [place] amLODIPine 2014-08 Yes 10mg Take [address] (NORVASC) 2-11 by mouth. [facility] 10 MG 00:00: Medical tablet 00 [place] amLODIPine 2014-08 Yes 10mg Take [address] (NORVASC) 2-11 by mouth. [facility] 10 MG 00:00: Medical tablet 00 [place] amLODIPine 2014-08 Yes 10mg Take [address] (NORVASC) 2-11 by mouth. [facility] 10 MG 00:00: Medical tablet 00 [place] amLODIPine 2014-08 Yes 10mg Take [address] (NORVASC) 2-11 by mouth. [facility] 10 MG 00:00: Medical tablet 00 [place] amLODIPine 2014-08 Yes 10mg Take [address] (NORVASC) 2-11 by mouth. [facility] 10 MG 00:00: Medical tablet 00 [place] cloNIDine 2014-08 Yes .3mg Q.[id number] Take 0.[address] [facility] HCl 1-11 [id number] mg by [facility] (CATAPRES) 00:00: 3D mouth 3 Medi valentin 0.3 MG 00 (three) Center tablet times daily . furosemide 2014-08 Yes 80mg Take [address] (LASIX) 40 1-11 by mouth . Jose es MG tablet 00:00: Medical 00 [place] hydrALAZINE 2014-08 Yes 50mg Q.[id number] Take [address] (APRESOLINE 1-11 [id number] by mouth 3 [facility]ukes ) 50 MG 00:00: 3D (three) Medical tablet 00 times Center daily. metoprolol 2014-08 Yes 100mg Q.5D Take [address] (LOPRESSOR) 1-11 mg by [facility]ukes 100 MG 00:00: mouth 2 Medical tablet 00 (two) Center times daily. cloNIDine 2014-08 Yes .3mg Q.[id number] Take 0.[address] HCl 1-11 [id number] mg by [facility] (CATAPRES) 00:00: 3D mouth 3 Medi valentin 0.3 MG 00 (three) Center tablet times daily . furosemide 2014-08 Yes 80mg Take [address] (LASIX) 40 1-11 by mouth . Jose es MG tablet 00:00: Medical 00 [place] hydrALAZINE 2014-08 Yes 50mg Q.[id number] Take [address] [address] (APRESOLINE 1-11 [id number] by mouth 3 [facility] ) 50 MG 00:00: 3D (three) Medical tablet 00 times Center daily. metoprolol 2014-08 Yes 100mg Q.5D Take [address] (LOPRESSOR) 1-11 mg by [facility]ukes 100 MG 00:00: mouth 2 Medical tablet 00 (two) Center times daily. cloNIDine 2014-08 Yes .3mg Q.[id number] Take 0.[address] HCl 1-11 [id number] mg by [facility]ukes (CATAPRES) 00:00: 3D mouth 3 Medi valentin 0.3 MG 00 (three) Center tablet times daily . furosemide 2014-08 Yes 80mg Take [address] (LASIX) 40 1-11 by mouth . Jose es MG tablet 00:00: Medical 00 [place] hydrALAZINE 2014-08 Yes 50mg Q.[id number] Take [address] [address] (APRESOLINE 1-11 [id number] by mouth 3 [facility] ) 50 MG 00:00: 3D (three) Medical tablet 00 times Center daily. metoprolol 2014-08 Yes 100mg Q.5D Take [address] (LOPRESSOR) 1-11 mg by [facility]ukes 100 MG 00:00: mouth 2 Medical tablet 00 (two) Center times daily. cloNIDine 2014-08 Yes .3mg Q.[id number] Take 0.[address] HCl 1-11 [id number] mg by [facility]ukes (CATAPRES) 00:00: 3D mouth 3 Medi valentin 0.3 MG 00 (three) Center tablet times daily . furosemide 2014-08 Yes 80mg Take [address] (LASIX) 40 1-11 by mouth . Jose es MG tablet 00:00: Medical 00 [place] hydrALAZINE 2014-08 Yes 50mg Q.[id number] Take [address] (APRESOLINE 1-11 [id number] by mouth 3 [facility] ) 50 MG 00:00: 3D (three) Medical tablet 00 times Center daily. metoprolol 2014-08 Yes 100mg Q.5D Take [address] (LOPRESSOR) 1-11 mg by [facility] 100 MG 00:00: mouth 2 Medical tablet 00 (two) Center times daily. cloNIDine 2014-08 Yes .3mg Q.[id number] Take 0.[address] HCl 1-11 [id number] mg by [facility] (CATAPRES) 00:00: 3D mouth 3 Medi valentin 0.3 MG 00 (three) Center tablet times daily . furosemide 2014-08 Yes 80mg Take [address] (LASIX) 40 1-11 by mouth . Jose es MG tablet 00:00: Medical 00 [place] hydrALAZINE 2014-08 Yes 50mg Q.[id number] Take [address] (APRESOLINE 1-11 [id number] by mouth 3 [facility] ) 50 MG 00:00: 3D (three) Medical tablet 00 times Center daily. metoprolol 2014-08 Yes 100mg Q.5D Take [address] (LOPRESSOR) 1-11 mg by [facility] 100 MG 00:00: mouth 2 Medical tablet 00 (two) Center times daily. cloNIDine 2014-08 Yes .3mg Q.[id number] Take 0.[address] HCl 1-11 [id number] mg by [facility] (CATAPRES) 00:00: 3D mouth 3 Medi valentin 0.3 MG 00 (three) Center tablet times daily . furosemide 2014-08 Yes 80mg Take [address] (LASIX) 40 1-11 by mouth . Jose es MG tablet 00:00: Medical [address] [place] hydrALAZINE 2014-08 Yes 50mg [id number] Take [address] [facility] (APRESOLINE 1-11 [id number] [facility] 3 [facility] ) 50 MG 00:00: 3D (three) Medical tablet 00 times Center daily. metoprolol 2014-08 Yes 100mg Q.5D Take [address] (LOPRESSOR) 1-11 mg [facility] 100 MG 00:00: mouth 2 Medical tablet 00 (two) Center times daily. cloNIDine 2014-08 Yes .3mg Q.[id number] Take 0.[address] [facility] HCl 1-11 [id number] mg by [facility] (CATAPRES) 00:00: 3D mouth 3 Medi valentin 0.3 MG 00 (three) Center tablet times daily . furosemide 2014-08 Yes 80mg Take [address] (LASIX) 40 1-11 by mouth . [facility] MG tablet 00:00: Medical [address] [place] hydrALAZINE 2014-08 Yes 50mg Q.[id number] Take [address] [facility] (APRESOLINE 1-11 [id number] [facility] ) 50 MG 00:00: 3D (three) Medical tablet 00 times Center daily. metoprolol 2014-08 Yes 100mg Q.5D Take [address] (LOPRESSOR) 1-11 mg [facility] 100 MG 00:00: mouth 2 Medical tablet 00 (two) Center times daily. cloNIDine 2014-08 Yes .3mg Q.[id number] Take 0.[address] [facility] HCl 1-11 [id number] mg by [facility] (CATAPRES) 00:00: 3D mouth 3 Medi valentin 0.3 MG 00 (three) Center tablet times daily . furosemide 2014-08 Yes 80mg Take [address] (LASIX) 40 1-11 by mouth . Jose es MG tablet 00:00: Medical [address] [place] hydrALAZINE 2014-08 Yes 50mg Q.[id number] Take [address] [facility] (APRESOLINE 1-11 [id number] [facility] 3 [facility] ) 50 MG 00:00: 3D (three) Medical tablet 00 times Center daily. metoprolol 2014-08 Yes 100mg Q.5D Take [address] (LOPRESSOR) 1-11 mg [facility] 100 MG 00:00: mouth 2 Medical tablet 00 (two) Center times daily. cloNIDine 2014-08 Yes .3mg Q.[id number] Take 0.[address] [facility] HCl 1-11 [id number] [facility] (CATAPRES) 00:00: 3D mouth 3 Medi valentin 0.3 MG 00 (three) Center tablet times daily . furosemide 2014-08 Yes 80mg Take [address] (LASIX) 40 1-11 by mouth . Jose [facility] MG tablet 00:00: [facility] Q.[id number] Take [address] [facility] (APRESOLINE 1-11 [id number] [facility] 3 [facility] ) 50 MG 00:00: 3D (three) Medical tablet 00 times Center daily. metoprolol 2014-08 Yes 100mg Q.5D Take [address] (LOPRESSOR) 1-11 [facility] 100 MG 00:00: mouth 2 Medical tablet 00 (two) Center times daily. Immunizations Ordered Filled Immunization Date Status Comments [facility] e Immunization Name Name SARS-COV-2 COVID-19 2020-11-15 Completed Unive rsity of PFIZER VACCINE 00:00:00 [facility] SARS-COV-2 COVID-19 2020-11-15 Completed Unive rsity of PFIZER VACCINE 00:00:00 [facility] SARS-COV-2 COVID-19 2020-11-15 Completed Unive rsity of PFIZER VACCINE 00:00:00 [facility] SARS-COV-2 COVID-19 2020-10-25 Completed Unive rsity of PFIZER VACCINE 00:00:00 [facility] SARS-COV-2 COVID-19 2020-10-25 Completed Unive rsity of PFIZER VACCINE 00:00:00 [facility] SARS-COV-2 COVID-19 2020-10-25 Completed Unive rsity of PFIZER VACCINE 00:00:00 [facility] SARS-COV-2 COVID-19 2020-10-25 Completed Unive rsity of PFIZER VACCINE 00:00:00 [facility] SARS-COV-2 COVID-19 2020-10-25 Completed Unive rsity of PFIZER VACCINE 00:00:00 [facility] SARS-COV-2 COVID-19 2020-10-25 Completed Unive rsity of PFIZER VACCINE 00:00:00 [facility] Vital Signs Vital Name Observation Time Observation Value Comments Source Systolic blood 2022-07-28 18:00:00 185 mm[Hg] Univer sity of pressure [facility] Diastolic blood 2022-07-28 18:00:00 113 mm[Hg] Unive rsity of pressure [facility] Heart rate 2022-07-28 17:47:00 91 /min [facility] Respiratory rate 2022-07-28 17:47:00 20 /min [facility] [place] [facility] Oxygen saturation in 2022-07-28 17:47:00 99 /min University of Arterial blood by [facility] Pulse oximetry Branch Body temperature 2022-07-28 15:54:00 36.67 Chhaya [facility] [place] [facility] Body height 2022-07-28 15:54:00 157.5 cm [facility] [place] [facility] Body weight 2022-07-28 15:54:00 83.462 kg [facility] [place] [facility] BMI 2022-07-28 15:54:00 33.65 kg/m2 [facility] [place] [facility] Systolic blood 2021-03-27 08:00:00 182 mm[Hg] [facility] [place] [facility] Diastolic blood 2021-03-27 08:00:00 101 mm[Hg] [facility] [place] [facility] Heart rate 2021-03-27 08:00:00 72 /min [facility] [place] [facility] Respiratory rate 2021-03-27 08:00:00 10 /min [facility] [place] [facility] Oxygen saturation in 2021-03-27 08:00:00 100 /min University of Arterial blood by [facility] valentin Pulse oximetry Branch Body temperature 2021-03-27 04:49:00 37.28 Chhaya [facility] [place] [facility] Body height 2021-03-27 04:49:00 157.5 cm [facility] [place] [facility] Body weight 2021-03-27 04:49:00 83.462 kg [facility] [place] [facility] BMI 2021-03-27 04:49:00 33.65 kg/m2 [facility] [place] [facility] Systolic blood 2021-01-15 15:01:00 140 mm[Hg] [facility] [place] [facility] Diastolic blood 2021-01-15 15:01:00 84 mm[Hg] [facility] [place] [facility] Heart rate 2021-01-15 15:01:00 76 /min [facility] [place] [facility] Body temperature 2021-01-15 15:01:00 36.28 Chhaya [facility] [place] [facility] Respiratory rate 2021-01-15 15:01:00 18 /min [facility] [place] [facility] Body height 2021-01-15 15:01:00 157.5 cm [facility] [place] [facility] [place] Body weight 2021-01-15 15:01:00 90.719 kg Universi ty of [facility] BMI 2021-01-15 15:01:00 36.58 kg/m2 Universi ty of [facility] Oxygen saturation in 2021-01-15 15:01:00 99 /min University of Arterial blood by [facility] Pulse oximetry Branch Systolic blood 2020-11-12 19:02:00 155 mm[Hg] Univer sity of pressure [facility] Diastolic blood 2020-11-12 19:02:00 95 mm[Hg] Unive rsity of pressure [facility] Heart rate 2020-11-12 19:01:00 79 /min Universi ty of [facility] Respiratory rate 2020-11-12 19:01:00 19 /min [facility] Body height 2020-11-12 19:01:00 167.6 cm Universi ty of [facility] Body weight 2020-11-12 19:01:00 86.002 kg Universi ty of [facility] BMI 2020-11-12 19:01:00 30.60 kg/m2 Universi ty of [facility] Systolic blood 2020-11-12 19:02:00 155 mm[Hg] Univer sity of pressure [facility] Diastolic blood 2020-11-12 19:02:00 95 mm[Hg] Unive rsity of [facility] Heart rate 2020-11-12 19:01:00 79 /min Universi ty of [facility] Respiratory rate 2020-11-12 19:01:00 19 /min Univ ersity of [facility] Body height 2020-11-12 19:01:00 167.6 cm Universi ty of [facility] Body weight 2020-11-12 19:01:00 86.002 kg Universi ty of [facility] BMI 2020-11-12 19:01:00 30.60 kg/m2 Universi ty [facility] Procedures Procedure Date / Time Performed Performing Clinician Sour e EKG-12 LEAD 2022-07-28 16:42:07 Akosua Graf [facility] COMP. METABOLIC PANEL 2022-07-28 16:25:00 Akosua Graf [facility] ([id number]) Medical Branch CBC WITH DIFF 2022-07-28 16:25:00 Akosua Graf [facility] CONSENT/REFUSAL FOR 2022-07-28 15:49:58 Doctor Unassigned, No [facility] [place] DIAGNOSIS AND Name Medical Branch TREATMENT NOTICE OF PRIVACY 2021-03-27 04:39:35 Doctor Unassigned, No [facility] PRACTICES Name Medical Branch CONSENT/REFUSAL FOR 2021-03-27 04:37:48 Doctor Unassigned, No [facility] [place] DIAGNOSIS AND Name Medical Branch TREATMENT CONSENT/REFUSAL FOR 2021-01-15 14:58:04 Doctor Unassigned, No [facility] DIAGNOSIS AND Name Medical Branch TREATMENT ASSIGNMENT OF BENEFITS 2020-11-12 18:39:16 Doctor Unassigned, No [facility] Plan of Care Planned Activity Planned Date Details Comments Source Future Scheduled 2023-05-02 Screening for [facility] Test 13:38:52 malignant neoplasm of colon (procedure) [code = 354512822] Future Scheduled 2023-05-02 Screening for [facility] Test 13:38:52 malignant neoplasm of colon (procedure) [code = 799094237] Future Scheduled 2023-05-02 Screening [facility] Test 13:38:52 malignant neoplasm of colon (procedure) [code = 246123265] Future Scheduled 2023-05-02 COVID-19 VACCINE (#1) [facility] Test 13:38:52 [code = COVID-19 VACCINE (#1)] Future Scheduled 2023-05-02 Screening for [facility] Test 13:38:52 malignant neoplasm of cervix (procedure) [code = 869791094] Future Scheduled 2023-05-02 BREAST CANCER [facility] Test 13:38:52 SCREENING [code = BREAST CANCER SCREENING] Future Scheduled 2023-05-02 Screening for [facility] Test 13:38:52 malignant neoplasm of colon (procedure) [code = 294748727] Future Scheduled 2023-05-02 Screening for [facility] Test 13:38:52 malignant neoplasm of colon (procedure) [code = 633523073] Future Scheduled 2023-05-02 [facility]IN[facility] ([facility] 13:38:52 of 2) [code = SHINGLES VACCINES (1 of 2)] Future Scheduled 2023-05-02 [facility] 13:38:52 [code = INFLUENZA VACCINE (#1)] Future Scheduled 2023-05-02 Screening for [facility] Test 13:38:52 malignant neoplasm of colon (procedure) [code = 690752682] Future Scheduled 2023-05-02 Screening for [facility] Test 13:38:52 malignant neoplasm of colon (procedure) [code = 695466848] Future Scheduled 2023-05-02 Screening [facility] Test 13:38:52 malignant neoplasm of colon (procedure) [code = 892547487] Future Scheduled 2023-05-02 [facility] 13:38:52 [code = COVID-19 VACCINE (#1)] Future Scheduled 2023-05-02 Screening [facility] Test 13:38:52 malignant neoplasm of cervix (procedure) [code = 837212986] Future Scheduled 2023-05-02 BREAST CANCER [facility] Test 13:38:52 SCREENING [code = BREAST CANCER SCREENING] Future Scheduled 2023-05-02 Screening [facility] Test 13:38:52 malignant neoplasm of colon (procedure) [code = 012780097] Future Scheduled 2023-05-02 Screening [facility] Test 13:38:52 malignant neoplasm of colon (procedure) [code = 668756359] Future Scheduled 2023-05-02 SHINGLES VACCINES (1 [facility] 13:38:52 of 2) [code = SHINGLES VACCINES (1 of 2)] Future Scheduled 2023-05-02 INFLUENZA VACCINE (#1[facility] 13:38:52 [code = INFLUENZA VACCINE (#1)] Future Scheduled 2023-05-02 Screening [facility] Test 13:38:52 malignant neoplasm of colon (procedure) [code = 236839026] Future Scheduled 2023-05-02 Screening [facility] Test 13:38:52 malignant neoplasm of colon (procedure) [code = 626304198] Future Scheduled 2023-05-02 Screening [facility] Test 13:38:52 malignant neoplasm of colon (procedure) [code = 955428687] Future Scheduled 2023-05-02 COVID-19 [facility]ACCINE (#[facility] Test 13:38:52 [code = COVID-19 VACCINE (#1)] Future Scheduled 2023-05-02 Screening [facility] Test 13:38:52 malignant neoplasm of cervix (procedure) [code = 774898244] Future Scheduled 2023-05-02 BREAST CANCER [facility] Test 13:38:52 SCREENING [code = BREAST CANCER SCREENING] Future Scheduled 2023-05-02 Screening for [facility] Test 13:38:52 malignant neoplasm of colon (procedure) [code = 923240788] Future Scheduled 2023-05-02 Screening for [facility] Test 13:38:52 malignant neoplasm of colon (procedure) [code = 293532649] Future Scheduled 2023-05-02 SHINGLES VACCINES (1 [facility] 13:38:52 of 2) [code = SHINGLES VACCINES (1 of 2)] Future Scheduled 2023-05-02 INFLUENZA VACCINE (#[facility] Test 13:38:52 [code = INFLUENZA VACCINE (#1)] Future Scheduled 2023-02-15 Screening [facility] Test 11:49:05 malignant neoplasm of colon (procedure) [code = 850311673] Future Scheduled 2023-02-15 Screening [facility] Test 11:49:05 malignant neoplasm of colon (procedure) [code = 586383912] Future Scheduled 2023-02-15 Screening [facility] Test 11:49:05 malignant neoplasm of colon (procedure) [code = 344491773] Future Scheduled 2023-02-15 COVID-19 VACCINE (#1) [facility] Test 11:49:05 [code = COVID-19 VACCINE (#1)] Future Scheduled 2023-02-15 Scre[facility] Test 11:49:05 malignant neoplasm of cervix (procedure) [code = 856709088] Future Scheduled 2023-02-15 BREAST CANCER [facility] Test 11:49:05 SCREENING [code = BREAST CANCER SCREENING] Future Scheduled 2023-02-15 [facility] Test 11:49:05 malignant neoplasm of colon (procedure) [code = 064675967] Future Scheduled 2023-02-15 [facility] Test 11:49:05 malignant neoplasm of colon (procedure) [code = 840292138] Future Scheduled 2023-02-15 SHINGLES VACCINES (1 Met [facility] Test 11:49:05 of 2) [code = SHINGLES VACCINES (1 of 2)] Future Scheduled 2023-02-[address] [facility] Test 11:49:05 [code = INFLUENZA VACCINE] Future Scheduled 2022-12-03 Screening for [facility] Test 20:05:48 malignant neoplasm of cervix (procedure) [code = 167889325] Future Scheduled 2022-12-03 BREAST CANCER [facility] Test 20:05:48 SCREENING [code = BREAST CANCER SCREENING] Future Scheduled 2022-12-03 COLONOSCOPY SCREENING [facility] Test 20:05:48 [code = COLONOSCOPY SCREENING] Future Scheduled 2022-12-03 SHINGLES VACCINES (1 [facility] Test 20:05:48 of 2) [code = SHINGLES VACCINES (1 of 2)] Future Scheduled 2022-12-[address] [facility] Test 20:05:48 [code = INFLUENZA VACCINE] Future Scheduled 2022-12-03 COVID-19 VACCINE (#1) [facility] Test 20:05:48 [code = COVID-19 VACCINE (#1)] Future Scheduled 2022-12-03 Screening for [facility] Test 20:05:48 malignant neoplasm of cervix (procedure) [code = 855168771] Future Scheduled 2022-12-03 BREAST CANCER [facility] Test 20:05:48 SCREENING [code = BREAST CANCER SCREENING] Future Scheduled 2022-12-03 COLONOSCOPY SCREENING [facility] Test 20:05:48 [code = COLONOSCOPY SCREENING] Future Scheduled 2022-12-03 SHINGLES VACCINES (1 [facility] Test 20:05:48 of 2) [code = SHINGLES VACCINES (1 of 2)] Future Scheduled 2022-12-[address] [facility] Test 20:05:48 [code = INFLUENZA VACCINE] Future Scheduled 2022-12-03 COVID-19 VACCINE (#1) [facility] Test 20:05:48 [code = COVID-19 VACCINE (#1)] Future Scheduled 2022-07-03 HEPATITIS B VACCINES [facility] Test 00:15:46 (1 of 3 - 3-dose series) [code = HEPATITIS B VACCINES (1 of 3 - 3-dose series)] Future Scheduled 2022-07-03 COVID-19 VACCINE (#1) [facility] Test 00:15:46 [code = COVID-19 VACCINE (#1)] Future Scheduled 2022-07-03 Pneumococcal Vaccine: [facility] Test 00:15:46 Pediatrics (0 to 5 Years) and At-Risk Patients (6 to 64 Years) (1 - PCV) [code = Pneumococcal Vaccine: Pediatrics (0 to 5 Years) and At-Risk Patients (6 to 64 Years) (1 - PCV)] Future Scheduled 2022-07-03 DIABETES: RETINAL EYE [facility] Test 00:15:46 EXAM [code = DIABETES: RETINAL EYE EXAM] Future Scheduled 2022-07-03 DIABETIC FOOT EXAM [facility] Test 00:15:46 [code = DIABETIC FOOT EXAM] Future Scheduled 2022-07-03 Hepatitis C screening [facility] Test 00:15:46 (procedure) [code = 295068992] Future Scheduled 2022-07-03 SHINGLES VACCINES (1 Met [facility] Test 00:15:46 of 2) [code = SHINGLES VACCINES (1 of 2)] Future Scheduled 2022-07-03 Screening for [facility] Test 00:15:46 malignant neoplasm of cervix (procedure) [code = 768439217] Future Scheduled 2022-07-03 BREAST CANCER [facility] Test 00:15:46 SCREENING [code = BREAST CANCER SCREENING] Future Scheduled 2022-07-03 COLONOSCOPY SCREENING [facility] Test 00:15:46 [code = COLONOSCOPY SCREENING] Future Scheduled 2022-07-[address] [facility] Test 00:15:46 [code = INFLUENZA VACCINE] Future Scheduled 2022-07-03 HEPATITIS B VACCINES Met [facility] Test 00:15:46 (1 of 3 - 3-dose series) [code = HEPATITIS B VACCINES (1 of 3 - 3-dose series)] Future Scheduled 2022-07-03 COVID-19 VACCINE (#1) [facility] Test 00:15:46 [code = COVID-19 VACCINE (#1)] Future Scheduled 2022-07-03 Pneumococcal Vaccine: [facility] Test 00:15:46 Pediatrics (0 to 5 Years) and At-Risk Patients (6 to 64 Years) (1 - PCV) [code = Pneumococcal Vaccine: Pediatrics (0 to 5 Years) and At-Risk Patients (6 to 64 Years) (1 - PCV)] Future Scheduled 2022-07-03 DIABETES: RETINAL EYE [facility] Test 00:15:46 EXAM [code = DIABETES: RETINAL EYE EXAM] Future Scheduled 2022-07-03 DIABETIC FOOT EXAM [facility] Test 00:15:46 [code = DIABETIC FOOT EXAM] Future Scheduled 2022-07-03 Hepatitis C screening [facility] Test 00:15:46 (procedure) [code = 590872138] Future Scheduled 2022-07-03 SHINGLES VACCINES (1 Met [facility] Test 00:15:46 of 2) [code = SHINGLES VACCINES (1 of 2)] Future Scheduled 2022-07-03 Screening for [facility] Test 00:15:46 malignant neoplasm of cervix (procedure) [code = 080442713] Future Scheduled 2022-07-03 BREAST CANCER [facility] Test 00:15:46 SCREENING [code = BREAST CANCER SCREENING] Future Scheduled 2022-07-03 COLONOSCOPY SCREENING [facility] Test 00:15:46 [code = COLONOSCOPY SCREENING] Future Scheduled 2022-07-[address] [facility] Test 00:15:46 [code = INFLUENZA [...] 00:00:00 measurement Medical Center (procedure) [code = 84780420] Future Scheduled 2019-01-[address] [facility] [facility] 00[facility] measurement [facility] (procedure) [code = 30580187] Future Scheduled 2018-08-[address] [facility] Test 00:00:00 (procedure) [code = [facility] [id number]] Future Scheduled [address] Test 00:[facility]:00 (procedure) [code = [facility] 96587985] Future Scheduled 2014-06-[address] [facility] [...] Medica l Center cervix (procedure) [code = 633535912] Future Scheduled [address] [facility] Test 00:[facility]:00 malignant neoplasm of Medica l Center cervix (procedure) [code = 746091826] Future Scheduled 1989 DTAP/TDAP/TD VACCINES CH I [...] 00:00:00 examination Medical Center (regime/therapy) [code = 064811282] Future Scheduled 1980 Urine screening for [facility] Test 00:00:00 protein (procedure) Medical Center [code = 460106895] Future Scheduled 1980 DIABETIC EYE EXAM [facility] Test 00:00:00 [code = DIABETIC EYE Medical Center EXAM] Future Scheduled [address] [facility] Test 00:00:00 examination Medical Center (regime/therapy) [code = 495447477] Future Scheduled 1980 Urine screening [facility] Test 00:00:00 protein (procedure) Medical Center [code = 697884228] Future Scheduled [address] [facility] Test 00:00:00 malignant neoplasm of Medica l Center breast (procedure) [code = 740828380] Future Scheduled [address] [facility] Test 00:00:00 malignant neoplasm of Medica l Center colon (procedure) [code = 868230443] Future Scheduled [address] [facility] Test 00:00:00 malignant neoplasm of Medica l Center breast (procedure) [code = 222767074] Future Scheduled [address] Test 00:00:00 malignant neoplasm of Medica l Center colon (procedure) [code = 444471588] Future Scheduled DIABETES: RETINAL EYE [facility] EXAM [code = DIABETES: RETINAL EYE EXAM] Future Scheduled DIABETIC FOOT EXAM [facility] Test [code = DIABETIC FOOT EXAM] Future Scheduled COVID-19 VACCINE (1) [facility] [code = COVID-19 VACCINE (1)] Future Scheduled Hepatitis C screening [facility] (procedure) [code = 175784991] Future Scheduled [facility] Test malignant neoplasm of cervix (procedure) [code = 411139702] Future Scheduled BREAST CANCER [facility] Test SCREENING [code = BREAST CANCER [...] Clinicians Facility Department ID 2022-05-26 Outpatient daniel [facility] [id number] [facility] 15:31:14 e [id number] [facility]ly [facility] 2021-06-29 Emergency [facility] [id number] Univers [facility] 2021-06-28 Emergency [facility] [id number] Univers 20:14:34 [facility] 2023-05-10 2023-05-10 [facility] [id number] Univers 13:00:00 13:00:00 [facility] 2023-04-28 2023-04-28 Outpatient GC_GCBZW_Ka PRIV PRIV [id number] [facility] 00:00:00 00:00:00 diyala_S [id number] Medic al 2023-04-15 2023-04-15 Outpatient GC_GCBZW_Ka PRIV PRIV [id number] [facility] 00:00:00 00:00:00 diyala_S [id number] Medic al 2023-04-12 2023-04-12 Outpatient [facility] [id number] Univers 10:30:00 10:30:00 MOHAMMED ity o f [facility] 2022-07-28 2022-07-28 Emergency Royer [facility] ERT [id number] Univers 09:58:00 12:12:00 AKOSUA ity [facility] 2022-07-28 2022-07-28 [facility] [id number] Univers 09:58:00 12:12:00 Akosua PAINTER [id number] ity [id number] [phone] [address] 2021-03-26 2021-03-27 [facility] [id number] Univers 23:56:00 03:30:00 Naga Pulido [place] [id number] it[id number] [id number] [address] 2021-01-15 2021-01-15 Emergency [facility] [id number] Univers 10:03:00 11:43:00 Jeanna Painter [id number] i ty of [id number] [id number] [address] 2020-12-11 2020-12-11 Outpatient Sea GRAF [facility] [id number] Univers 10:00:00 10:00:00 TONY ity [facility] 2020-11-15 2020-11-15 Outpatient [facility] [id number] Univers 13:05:00 13:05:00 ity [facility] 2020-11-12 2020-11-12 Office [facility] [id number] Univers 13:40:03 14:10:03 Visit Ligia Painter [id number] [id number] [phone] [address] 2020-11-12 2020-11-12 Office [facility] [id number] 13:40:03 14:10:03 Visit [facility] Jonnathan Painter [id number] [place] [id number] Professio [id number] nal 085 Building 2020-11-12 2020-11-12 Outpatient R LIGIA PEDRO [facility] [id number] Univers 14:00:00 14:00:00 MAYELA TEONMMorgan ity of [facility] 2020-11-12 2020-11-12 Orders Doctor GRACY [id number] [employer] 00:00:00 00:00:00 Only Unassigned, KATIE [id number] ity of [employer] [facility] [id number] Juan C as [phone] [address] 2020-10-25 2020-10-25 Outpatient [facility] [id number] [employer] 12:45:00 12:45:00 ity [facility] Results Test Description Test Time Test Comments Results Result Comments Source COMP. METABOLIC PANEL (34888) 2022-07-28 16:47:59 Test Item Value Reference Range Interpretation Comme nts NA (test code = 5475843724) 140 mmol/L 135-145 K (test code = 7961852982) 4.4 mmol/L 3.5-5.0 CL (test code = 2599262343) 110 mmol/L 98-108 H CO2 TOTAL (test code = 1482625603) 20 mmol/L 23-31 L AGAP (test code = 0700503150) 2-16 BUN (test code = 9108337295) 26 mg/dL 7-23 H GLUCOSE (test code = 0411889530) 131 mg/dL 70-110 H CREATININE (test code = 2.26 mg/dL 0.50-1.04 H 3882691091) TOTAL BILI (test code = 0.4 mg/dL 0.1-1.6 0742540003) CALCIUM (test code = 7146810956) 8.5 mg/dL 8.6-10.6 L T PROTEIN (test code = 1730590245) 6.9 g/dL 6.3-8.2 ALBUMIN (test code = 6567272903) 3.8 g/dL 3.5-5.0 ALK PHOS (test code = 5066134638) 170 U/L 34-122 H ALTv (test code = 1742-6) 20 U/L 5-35 AST(SGOT) (test code = 6415895442) 27 U/L 13-40 eGFR (test code = 8794843401) mL/min/1.73m2 GARY (test code = GARY) Association [...] tests). Lab Interpretation (test code = Abnormal 94952-8) [facility] WITH [id number] 16:39:19 Test Item Value Reference Range Interpretation Comments WBC (test code = See_Comment [Automated 1849-2) message] The sy stem which generated this [...] RDW-SD (test code = 44.4 fL 39.0-49.9 69518-8) RDW-CV (test code = 14.2 % 12.0-15.5 788-0) PLT (test code = See_Comment [Automated 777-3) message] The sy stem which generated this result transmitted reference range : 166 - 358 10*3/ ?L. The reference r jp was not used to interpret this result as normal/abnormal . MPV (test code = 9.0 fL 9.5-12.9 L 95967-7) NRBC/100 WBC (test See_Comment [Automat ed code = 8538071065) message] The system which generated this result transmitted reference range : 0.0 - 10.0 /100 WBCs. The refer ence range was not u sed to interpret th is result as normal/abnormal . NRBC x10^3 (test code See_Comment [Auto mated = 6298601397) message] The s ystem which generated this result transmitted reference range : 10*3/?L. The reference range was not used to interpret this result as normal/abnormal . GRAN MAT (NEUT) % 53.4 % (test code = 770-8) IMM GRAN % (test code 0.30 % = 5689983645) LYMPH % (test code = 28.0 % 736-9) MONO % (test code = 12.7 % 5905-5) EOS % (test code = 4.7 % 713-8) BASO % (test code = 0.9 % 706-2) GRAN MAT x10^3(ANC) 3.76 10*3/uL 1.88-7.09 (test code = 2005160969) IMM GRAN x10^3 (test 0.00-0.06 code = 3258302510) LYMPH x10^3 (test code 1.97 10*3/uL 1.32-3.29 = 731-0) MONO x10^3 (test code 0.89 10*3/uL 0.33-0.92 = 742-7) EOS x10^3 (test code = 0.33 10*3/uL 0.03-0.39 711-2) BASO x10^3 (test code 0.06 10*3/uL 0.01-0.07 = 704-7) Lab Interpretation Abnormal (test code = 97849-7) [facility] [id number] 17:01:00 Test Item Value Reference Range Interpretation Comments CULTURE (BEAKER) (test No growth in 5 days code = 1095) LUPUS ANTICOAGULANT SCREEN WITH REFLEX TO [id number] 16:08:00 Test Item Value Reference Range Interpretation [...] (BEAKER) (test 45.2 32.0-41.8 H code = 8122469381) [id number]-[id number] Cindy Chavira MD (BEAKER) (test code = (electronic signature) 5860) HEXAGONAL [id number] 14:08:00 Test Item Value Reference Range Interpretation Comments HEXAGONAL PHOSPHOLIPID (BEAKER) Positive (test code = 1790) BLOOD [id number] 10:01:00 Test Item Value Reference Range Interpretation Comments CULTURE (BEAKER) (test No growth in 5 days code = 1095) DOUBLE-STRANDED DNA (DSDNA) [id number] 05:52:00 Test Item Value Reference Range Interpretation Comments ANTI-DNA DS (BEAKER) (test code = Negative 1055) CARDIOLIPIN ANTIBODIES, IGG AND [id number] 15:01:00 Test Item Value Reference Range Interpretation Comments ANTICARDIOLIPIN IGG ANTIBODY (BEAKER) < GPL <20.0 (test code = 712) ANTICARDIOLIPIN IGM ANTIBODY (BEAKER) 2.1 MPL <20.0 (test code = 713) Anticardiolipin IgG Result Interpretation: <20.0 GPL Normal>/= 20.0 GPL PositiveAnticardiolipin IgM Result Interpretation: <20.0 MPL Normal>/= 20.0 MPL PositiveCALCIUM, [id number] 05:12:00 Test Item Value Reference Range Interpretation Comments CALCIUM IONIZED (BEAKER) (test 1.01 mmol/L 1.12-1.27 L code = 698) PH, BLOOD ([facility]) (test code = 7.45 1810) POCT-GLUCOSE [id number] 21:30:00 Test Item Value Reference Range Interpretation Comments POC-GLUCOSE METER 116 mg/dL 70-110 H TESTED AT [place] [address] ([facility]) (test code = [facility] Sea [facility] 1538) [address] POCT-GLUCOSE [id number] 17:32:00 Test Item Value Reference Range Interpretation Comments POC-GLUCOSE METER 125 mg/dL 70-110 H TESTED AT [place] [address] ([facility]) (test code = [facility] Sea [facility] 1538) [address] POCT-GLUCOSE [id number] 11:28:00 Test Item Value Reference Range Interpretation Comments POC-GLUCOSE METER 115 mg/dL 70-110 H TESTED AT [place] [address] ([facility]) (test code = [facility] Sea [facility] 1538) [address] POCT-GLUCOSE [id number] 07:41:00 Test Item Value Reference Range Interpretation Comments POC-GLUCOSE METER 108 mg/dL 70-110 TESTED AT [place] [address] (BEAKER) (test code = [place] 1538) [address] [id number] 07:06:00 Test Item Value Reference Range Interpretation Comments MAGNESIUM (BEAKER) 1.8 mg/dL 1.6-2.6 Specimen slightly (test code = 627) hemolyzed [id number] 07:06:00 Test Item Value Reference Range Interpretation Comments PHOSPHORUS (BEAKER) 2.4 mg/dL 2.3-4.7 Specimen slightly (test code = 604) hemolyzed COMPREHENSIVE METABOLIC [id number] 07:06:00 Test Item Value Reference Range Interpretation [...] APPLICABLE FOR DIALYSIS PATIEN TS. HEPATIC FUNCTION [id number] 07:06:00 Test Item Value Reference Range Interpretation [...] slightly (test code = 347) hemolyzed CALCIUM, [id number] 06:42:00 Test Item Value Reference Range Interpretation Comments CALCIUM IONIZED (BEAKER) (test 1.16 mmol/L 1.12-1.27 code = 698) PH, BLOOD (BEAKER) (test code = 7.42 1810) CBC W/PLT COUNT & AUTO [id number] 05:10:00 Test Item Value Reference Range Interpretation [...] PERCENT (BEAKER) (test code = 2801) POCT-GLUCOSE [id number] 23:12:00 Test Item Value Reference Range Interpretation Comments POC-GLUCOSE METER 95 mg/dL 70-110 TESTED AT [facility] [address] ([facility]) (test code = [facility] [address] 1538) POCT-GLUCOSE [id number] 18:51:00 Test Item Value Reference Range Interpretation Comments POC-GLUCOSE METER 118 mg/dL 70-110 H TESTED AT [facility] [address] ([facility]) (test code = [facility] 1538) [address] HEMOGLOBIN AND [id number] 16:28:00 Test Item Value Reference Range Interpretation Comments HEMOGLOBIN ([facility]) (test code = 8.7 GM/DL 11.2-15.7 L 410) HEMATOCRIT ([facility]) (test code = 27.8 % 34.1-44.9 L 411) POCT-GLUCOSE [id number] 15:00:00 Test Item Value Reference Range Interpretation Comments POC-GLUCOSE METER 140 mg/dL 70-110 H TESTED AT [place] [address] ([facility]) (test code = JOB Ose[place] [facility] 1538) [address] POCT-GLUCOSE [id number] 14:46:00 Test Item Value Reference Range Interpretation Comments POC-GLUCOSE METER 44 mg/dL 70-110 L Notified Sea Amos MD/TESTED AT ([facility]) (test code = [place] [address] [facility] [address] POCT-GLUCOSE [id number] 13:05:00 Test Item Value Reference Range Interpretation Comments POC-GLUCOSE METER 87 mg/dL 70-110 TESTED AT [place] [address] ([facility]) (test code = [place]OB O[place] [address] 1538) POCT-GLUCOSE [id number] 11:57:00 Test Item Value Reference Range Interpretation Comments POC-GLUCOSE METER 65 mg/dL 70-110 L Notified Sea Amos MD/TESTED AT ([facility]) (test code = [address] 1538) [facility] [address] VANCOMYCIN LEVEL, [id number] 10:58:00 Test Item Value Reference Range Interpretation Comments VANCOMYCIN TROUGH ([facility]) (test 14.2 ug/mL 10.0-20.0 code = 522) RAD, ABDOMEN/KUB, 1 VIEW [id number] 09:41:00Reason for exam:->abdominal painFINAL REPORT AP abdomen, two images HISTORY: Abdominal pain COMPARISON: 07/28/2013 IMPRESSION:Grossly nonobstructive bowel gas pattern. Intact skeleton. Signed: Vikas Guillen MDReport Verified Date/Time: 07/30/2018 09:41:59 Reading Location: [address] Consult Reading Room -GLUCOSE [id number] 07:59:00 Test Item Value Reference Range Interpretation Comments POC-GLUCOSE METER 87 mg/dL 70-110 TESTED AT [facility] [address] (BEAKER) (test code = [place] [address]38) CALCIUM, [id number] 06:53:00 Test Item Value Reference Range Interpretation Comments CALCIUM IONIZED (BEAKER) (test 1.12 mmol/L 1.12-1.27 code = 698) PH, BLOOD (BEAKER) (test code = 7.44 1810) [id number] 06:38:00 Test Item Value Reference Range Interpretation Comments PHOSPHORUS (BEAKER) (test code = 2.7 mg/dL 2.3-4.7 604) [id number] 06:38:00 Test Item Value Reference Range Interpretation Comments MAGNESIUM (BEAKER) (test code = 1.6 mg/dL 1.6-2.6 627) HEPATIC FUNCTION [id number] 06:38:00 Test Item Value Reference Range Interpretation [...] = 9 U/L 6-55 347) COMPREHENSIVE METABOLIC [id number] 06:38:00 Test Item Value Reference Range Interpretation [...] PATIEN TS. CBC W/PLT COUNT & AUTO [id number] 06:11:00 Test Item Value Reference Range Interpretation [...] PERCENT (BEAKER) (test code = 2801) POCT-GLUCOSE [id number] 21:38:00 Test Item Value Reference Range Interpretation Comments POC-GLUCOSE METER 96 mg/dL 70-110 TESTED AT [place] [address] ([facility]) (test code = [facility] [address] 1538) POCT-GLUCOSE [id number] 18:19:00 Test Item Value Reference Range Interpretation Comments POC-GLUCOSE METER 121 mg/dL 70-110 H TESTED AT [facility] [address] ([facility]) (test code = [facility] 1538) [address] T4, [id number] 12:35:00 Test Item Value Reference Range Interpretation Comments FREE T4 [facility] (test code = 655) 1.25 ng/dL 0.70-1.48 POCT-GLUCOSE [id number] 12:27:00 Test Item Value Reference Range Interpretation Comments POC-GLUCOSE METER 127 mg/dL 70-110 H TESTED AT [facility] [address] (BEAKER) (test code = [place] 1539) [address] TSH/FREE T4 IF [id number] 12:07:00 Test Item Value Reference Range Interpretation Comments THYROID STIMULATING HORMONE 0.25 uIU/mL 0.35-4.94 L (BEAKER) (test code = 772) [id number] 12:07:00 Test Item Value Reference Range Interpretation Comments THYROID STIMULATING HORMONE 0.25 uIU/mL 0.35-4.94 L (BEAKER) (test code = 772) LACTIC ACID, VENOUS, WHOLE [id number] 11:35:00 Test Item Value Reference Range Interpretation Comments LACTATE BLOOD VENOUS 0.6 mmol/L 0.5-2.2 Specime n slightly (2) (BEAKER) (test hemolyzed code = 5935) VANCOMYCIN LEVEL, [id number] 07:11:00 Test Item Value Reference Range Interpretation Comments VANCOMYCIN RANDOM (BEAKER) (test 17.9 ug/mL code = 523) Reference Range: No [id number] 07:09:00 Test Item Value Reference Range Interpretation Comments PHOSPHORUS (BEAKER) (test code = 3.9 mg/dL 2.3-4.7 604) [id number] 07:09:00 Test Item Value Reference Range Interpretation Comments MAGNESIUM (BEAKER) (test code = 1.7 mg/dL 1.6-2.6 627) BASIC METABOLIC [id number] 07:09:00 Test Item Value Reference Range Interpretation [...] APPLICABLE FOR DIALYSIS PATIEN TS. HEPATIC FUNCTION [id number] 07:09:00 Test Item Value Reference Range Interpretation [...] code = 10 U/L 6-55 347) TROPONIN [id number] 06:54:00 Test Item Value Reference Range Interpretation Comments TROPONIN I (BEAKER) (test code = 0.08 ng/mL 0.00-0.03 H 397) LACTIC ACID, VENOUS, WHOLE [id number] 06:45:00 Test Item Value Reference Range Interpretation Comments LACTATE BLOOD VENOUS 0.8 mmol/L 0.5-2.2 Specime n slightly (2) (BEAKER) (test hemolyzed code = 2696) CBC W/PLT COUNT & AUTO [id number] 06:00:00 Test Item Value Reference Range Interpretation [...] PERCENT (BEAKER) (test code = 2801) CALCIUM, [id number] 05:58:00 Test Item Value Reference Range Interpretation Comments CALCIUM IONIZED (BEAKER) (test 1.12 mmol/L 1.12-1.27 code = 698) PH, BLOOD (BEAKER) (test code = 7.39 1810) EOSINOPHIL SMEAR, [id number] 20:17:00 Test Item Value Reference Range Interpretation Comments EOSINOPHIL SMEAR, URINE (BEAKER) No EOS seen No EOS seen (test code = 1851) BASIC METABOLIC [id number] 20:01:00 Test Item Value Reference Range Interpretation [...] DIALYSIS PATIEN TS. LACTIC ACID, VENOUS, WHOLE [id number] 19:59:00 Test Item Value Reference Range Interpretation Comments LACTATE BLOOD VENOUS 0.8 mmol/L 0.5-2.2 Specime n slightly (2) (BEAKER) (test hemolyzed code = 2872) CT, BRAIN/STROKE [id number] 19:59:00Stroke Protocol. Phone/Page MD for reporting.Reason for [...] Fink Verified Date/Time: 07/28/2018 19:59:01 Reading Location: [facility] Radiology Reading Room [id number] 19:51:00 Test Item Value Reference Range Interpretation Comments PARTIAL THROMBOPLASTIN TIME 33.1 seconds 22.5-36.0 (BEAKER) (test code = 760) PROTHROMBIN [id number] 19:50:00 Test Item Value Reference Range Interpretation Comments PROTIME (BEAKER) (test code = 15.6 seconds 11.7-14.7 H 759) INR (BEAKER) (test code = 370) 1.2 <=5.9 RECOMMENDED COUMADIN/WARFARIN INR THERAPY RANGESSTANDARD DOSE: 2.0 - 3.0 Includes: PROPHYLAXIS for venous thrombosis, systemic embolization; TREATMENT for venous thrombosis and/or pulmonary embolus.HIGH RISK: Target INR is 2.5-3.5 for patients with mechanical heart valves.HEMOGLOBIN AND [id number] 19:41:00 Test Item Value Reference Range Interpretation Comments HEMOGLOBIN (BEAKER) (test code = 11.3 GM/DL 11.2-15.7 410) HEMATOCRIT (BEAKER) (test code = 35.4 % 34.1-44.9 411) CBC W/PLT COUNT & AUTO [id number] 19:41:00 Test Item Value Reference Range Interpretation [...] PERCENT (BEAKER) (test code = 2801) TROPONIN [id number] 19:26:00 Test Item Value Reference Range Interpretation Comments TROPONIN I (BEAKER) (test code = 0.11 ng/mL 0.00-0.03 H 397) PROTEIN, RANDOM [id number] 19:19:00 Test Item Value Reference Range Interpretation Comments PROTEIN, URINE (BEAKER) (test code 325 mg/dL 0-14 H = 1569) POCT-GLUCOSE [id number] 19:00:00 Test Item Value Reference Range Interpretation Comments POC-GLUCOSE METER 158 mg/dL 70-110 H TESTED AT [facility] [address] (BEAKER) (test code = [place] 1538) [address] CREATININE, RANDOM [id number] 18:52:00 Test Item Value Reference Range Interpretation Comments CREATININE URINE (BEAKER) (test 95.8 mg/dL code = 375) Reference Range: No NormalsSODIUM, RANDOM [id number] 18:52:00 Test Item Value Reference Range Interpretation Comments SODIUM URINE (BEAKER) (test code = 28 meq/L 243) Reference Range: No NormalsURINALYSIS W/ [id number] 18:02:00 Test Item Value Reference Range Interpretation [...] SOURCE(BEAKER) (test code Urine, Clean Catch = 1563) POCT-GLUCOSE [id number] 17:21:00 Test Item Value Reference Range Interpretation Comments POC-GLUCOSE METER 137 mg/dL 70-110 H TESTED AT [facility] [address] (BEAKER) (test code = [place] 1538) [address] BASIC METABOLIC [id number] 17:14:00 Test Item Value Reference Range Interpretation [...] APPLICABLE FOR DIALYSIS PATIEN TS. Call results [id number] ACID, VENOUS, WHOLE [id number] 14:19:00 Test Item Value Reference Range Interpretation Comments LACTATE BLOOD VENOUS (2) (BEAKER) 1.1 mmol/L 0.5-2.2 (test code = 2872) THROMBIN [id number] 13:02:00 Test Item Value Reference Range Interpretation Comments THROMBIN TIME (BEAKER) (test code = 17.8 secs 13.8-20.0 550) [id number] 13:01:00 Test Item Value Reference Range Interpretation Comments PROCALCITONIN (BEAKER) (test code 0.09 ng/mL <0.05 H = 3036) SEPSIS RISK (ng/mL)Low: 0.05-0.50Intermediate: 0.51-2.00High: >=2.011:1 MIXING STUDY, [id number] 12:38:00 Test Item Value Reference Range Interpretation Comments PROTIME (BEAKER) (test code = 15.0 seconds 11.7-14.7 H 759) PARTIAL THROMBOPLASTIN TIME 36.1 seconds 22.5-36.0 H (BEAKER) (test code = 760) PT 1/1 MIX (BEAKER) (test code = 14.4 SECS 11.7-14.7 1595) PTT 1/1 MIX (BEAKER) (test code 35.5 SECS 22.5-36.0 = 1596) TROPONIN [id number] 12:01:00 Test Item Value Reference Range Interpretation Comments TROPONIN I (BEAKER) (test code = 0.13 ng/mL 0.00-0.03 H 397) HCG, QUANTITATIVE, [id number] 11:58:00 Test Item Value Reference Range Interpretation Comments GONADOTROPIN, CHORIONIC (HCG) QUANT < mIU/mL 0-10 (BEAKER) (test code = 649) Non- Females: <10 mIU/mL Females: Gestation Age Reference Range(mIU/mL) 0.2-1 Week 5-50 1-2 Weeks 50-500 2-3 Weeks 100-5,000 3-4 Weeks 500-10,000 4-5 Weeks 1,000-50,000 5-6 Weeks 10,000-100,000 6-8 Weeks 15,000- 200,000 2-3 Months 10,000-100,[id number] 11:55:00 Test Item Value Reference Range Interpretation Comments LIPASE (BEAKER) (test code = 749) 31 U/L 8-78 [id number] 11:55:00 Test Item Value Reference Range Interpretation Comments AMYLASE (BEAKER) (test code = 349) 101 U/L 25-125 COMPREHENSIVE METABOLIC [id number] 11:55:00 Test Item Value Reference Range Interpretation [...] NOT APPLICABLE FOR DIALYSIS PATIEN TS. C-REACTIVE [id number] 11:55:00 Test Item Value Reference Range Interpretation Comments C-REACTIVE PROTEIN (BEAKER) (test 0.42 mg/dL 0.00-0.50 code = 676) LACTIC ACID, VENOUS, WHOLE [id number] 11:51:00 Test Item Value Reference Range Interpretation Comments LACTATE BLOOD VENOUS 1.5 mmol/L 0.5-2.2 Specime n slightly (2) (BEAKER) (test hemolyzed code = 6165) [id number] 11:44:00 Test Item Value Reference Range Interpretation Comments PARTIAL THROMBOPLASTIN TIME 35.4 seconds 22.5-36.0 (BEAKER) (test code = 534) CBC W/PLT COUNT & AUTO [id number] 11:30:00 Test Item Value Reference Range Interpretation [...] PERCENT (BEAKER) (test code = 2801) POCT-GLUCOSE [id number] 11:20:00 Test Item Value Reference Range Interpretation Comments POC-GLUCOSE METER 167 mg/dL 70-110 H TESTED AT [facility] [address] (AMINAH) (test code = [place] 1538) [address] HEMOGLOBIN [id number] 11:15:00 Test Item Value Reference Range Interpretation Comments HEMOGLOBIN A1C (AMINAH) (test code = 5.6 % 4.3-6.1 368) PROTHROMBIN [id number] 08:24:00 Test Item Value Reference Range Interpretation Comments PROTIME (AMINAH) (test code = 15.3 seconds 11.7-14.7 H 759) INR (AMINAH) (test code = 370) 1.2 <=5.9 RECOMMENDED COUMADIN/WARFARIN INR THERAPY RANGESSTANDARD DOSE: 2.0 - 3.0 Includes: PROPHYLAXIS for venous thrombosis, systemic embolization; TREATMENT for venous thrombosis and/or pulmonary embolus.HIGH RISK: Target INR is 2.5-3.5 for patients with mechanical heart valves.RAD, ABDOMEN/KUB, 1 VIEW [id number] 08:13:00Reason for exam:->abdominal painFINAL REPORT INDICATION:Abdominal pain. [...] hip MRI is recommended. Signed: Lionel Ruiz [facility] Verified Date/Time: 07/28/2018 08:13:33 Reading Location: [facility] C0X Ortho Consult Reading Room ONIN [id number] 08:11:00 Test Item Value Reference Range Interpretation Comments TROPONIN I (AMINAH) (test code = 0.05 ng/mL 0.00-0.03 H 397) RAD, CHEST, 1 VIEW, NON [id number] 08:10:00Reason for exam:->chest painShould this be performed at the bedside?->YesFINAL REPORT RAD, CHEST, 1 VIEW, NON DEPT INDICATION: chest pain COMPARISON: Prior day's exam FINDINGS: Portable frontal view of the chest. IMPRESSION: Support Lines: None. Lungs and pleura: Clear lungs. No effusion. No pneumothorax.Heart and mediastinum: Unremarkable contours.Additional findings: None. Signed: JR Francesco, Maia Daugherty Verified Date/Time: 07/28/2018 08:10:51 Reading Location: [facility] Radiology Reading Room BASIC METABOLIC [id number] 08:08:00 Test Item Value Reference Range Interpretation [...] S NOT APPLICABLE FOR DIALYSIS PATIEN TS. [id number] 08:04:00 Test Item Value Reference Range Interpretation Comments LIPASE (BEAKER) (test code = 749) 12 U/L 8-78 HEPATIC FUNCTION [id number] 08:04:00 Test Item Value Reference Range Interpretation [...] (test code = 347) hemolyzed COMPLEMENT COMPONENT [id number] 08:03:00 Test Item Value Reference Range Interpretation Comments C4 COMPLEMENT (BEAKER) (test code = 25 mg/dL 15-57 394) COMPLEMENT COMPONENT [id number] 08:03:00 Test Item Value Reference Range Interpretation Comments C3 COMPLEMENT (BEAKER) (test code = 125 mg/dL 82-193 393) POCT-BLOOD GASES, [id number] 07:57:00 Test Item Value Reference Range Interpretation Comments TEMP, CELSIUS-POC 37.0 (BEAKER) (test code = 1834) FIO2-POC (BEAKER) TESTED AT [facility] [address] (test code = 1835) [place] [address] PH, ARTERIAL-POC 7.416 7.350-7.450 (BEAKER) (test code [...] L ARTERIAL-POC (BEAKER) (test code = 1841) [id number] 07:57:00 Test Item Value Reference Range Interpretation Comments POC-SODIUM (BEAKER) 146 meq/L 135-148 TESTED A [place] [address] (test code = 1542) [facility] [address] [id number] 07:57:00 Test Item Value Reference Range Interpretation Comments POC-POTASSIUM 2.7 meq/L 3.6-5.5 L TESTED AT [place] [address] ([facility]) (test code [facility] [address] = 1540) [id number] 07:57:00 Test Item Value Reference Range Interpretation Comments POC-GLUCOSE ([facility]) 176 mg/dL 70-110 H TESTED AT [place] [address] (test code = 1855) ANSLEY Grimes [facility] [address] POCT-CALCIUM [id number] 07:57:00 Test Item Value Reference Range Interpretation Comments POC-CALCIUM IONIZED 1.15 mmol/L 1.12-1.27 TESTED [place] [address] ([facility]) (test code = [facility] Sea [facility] 1536) [id number] 07:57:00 Test Item Value Reference Range Interpretation Comments POC-HEMATOCRIT 38 % 36-45 TESTED AT [place] [address] ([facility]) (test code = [facility] Sea [facility] [address] 1857) [id number] 07:57:00 Test Item Value Reference Range Interpretation Comments POC-HEMOGLOBIN 12.9 g/dL 12.0-15.0 TESTED AT [place] [address] ([facility]) (test code [facility] = 1856) [id number] AT [place] [address] [place] [facility] [address] POCT-LACTIC ACID, [id number] 07:57:00 Test Item Value Reference Range Interpretation Comments POC-LACTIC ACID, 3.3 mmol/L 0.9-1.7 H TESTED AT [place] [address] [place] ([facility]) [facility] code = 2805) [address] CBC W/PLT COUNT & AUTO [id number] 07:47:00 Test Item Value Reference Range Interpretation Comments WHITE BLOOD CELL COUNT ([facility]) 9.6 K/ L 3.5-10.5 (test code = 775) RED BLOOD CELL COUNT ([facility]) 4.78 M/ L 3.93-5.22 (test [...]
[2023-05-11 14:20] LABS: Absolute Lymphocytes (CBC) 0.8 K/uL (0.7-4.9); Hematocrit 44.3 % (36.0-45.0); Lymphocytes % 8.2 % (15.3-44.8); MCV 85.4 fL (80-100); MPV 7.5 fL (7.6-11.3); Platelets 259 thou/uL (152-406); RBC Red Blood Cell Count 5.18 M/uL (3.86-4.86)
[2023-05-11] MEDS ORDERED: ONDANSETRON 4 MG/2 ML VIAL ONE (14:26)
[2023-05-11] MEDS ORDERED: FENTANYL CITR 100 MCG/2 ML ONE ×3 (14:26→19:15)
[2023-05-11] MEDS ORDERED: LABETALOL 20 MG/4ML SYRINGE IV ONE (14:47)
--- NOTE | 2023-05-11 14:47 | RAD REPORT ---
EXAM DESCRIPTION: CT - Abdomen Pelvis Wo Contrast - 05/11/2023 1:51 pm CLINICAL HISTORY: ABD PAIN COMPARISON: Abdomen Pelvis Wo Contrast dated 07/14/2022; Abdomen Pelvis Wo Contrast dated 022; Stone Protocol dated 04/24/2021; Abdomen Pelvis Wo Contrast dated 09/20/2019 TECHNIQUE: Thin cut axial CT imaging of the abdomen and pelvis was performed without IV contrast. Mu ltiplanar reformats were generated and reviewed. All CT scans are performed using dose optimization technique as appropriate and may include automated exposure control or mA/KV adjustment according to patient size. FINDINGS: No suspicious findings in the lung bases. Mild pericardial effusion. The liver, spleen, and pancreas show no suspicious findings. Gallbladder and biliary tree are also wi thout suspicious finding. Symmetric renal contour, without suspicious parenchymal findings within limits of noncontrast techniq ue. No evidence of radiopaque calculi or hydroureteronephrosis. Evidence of mild rotation, with accumulation of most of the small bowel in the left lupe flank, and t he descending colon being in the central abdomen. The cecum is present in the left lower quadrant. No dilated bowel loops or bowel wall thickening. No free air, free fluid or inflammatory stranding. No suspicious mass or bulky lymphadenopathy. Diastasis recti. The urinary bladder is without significant finding. No suspicious bony findings. IMPRESSION: No acute intra-abdominal process. Stable findings as above, including bowel malrotation.
[2023-05-11 15:34] LABS: Albumin 3.8 g/dL (3.4-5.0); Bilirubin Total 0.7 mg/dL (0.2-1.0); Protein, Total 7.6 g/dL (6.4-8.2); Troponin High Sensitivity 20.1 pg/mL (<58.9)
[2023-05-11 15:44] LABS: Potassium 3.7 mEq/L (3.5-5.1)
[2023-05-11 15:45] LABS: Magnesium 2.4 mg/dL (1.6-2.4)
[2023-05-11] MEDS ORDERED: HYDRALAZINE HCL 20 MG/ML VIAL ONE (15:51)
--- NOTE | 2023-05-11 16:09 | ER ---
Nurse's Notes [facility] Manuel Name: Babs Younger Age: 52 yrs Sex: Female : 1970 Arrival Date: 05/11/2023 Time: 13:28 Bed 15 Private MD: Diagnosis: Abdominal pain;Abnormal LFTs;Hypertensive urgency Presentation: 05/11 13:38 Chief complaint: EMS states: patient has been vomiting since Tuesday. Son reported that me1 patient had some blood in her emesis on Tuesday. EMS did not note any blood in emesis today. Coronavirus screen: Vaccine status: Patient reports receiving the 2nd dose of the covid vaccine. nausea, vomiting. Ebola Screen: No symptoms or risks identified at this time. Initial Sepsis Screen: Does the patient meet any 2 criteria? No. Patient's initial sepsis screen is negative. Does the patient have a suspected source of infection? No. Patient's initial sepsis screen is negative. Risk Assessment: Do you want to hurt yourself or someone else? Patient reports no desire to harm self or others. Onset of symptoms was May 09, 2023. 13:38 Method Of Arrival: EMS: [facility] 13:38 Acuity: ELVA 2 me1 Triage Assessment: 13:40 General: Appears uncomfortable, obese, Behavior is cooperative, appropriate for age, me1 anxious, restless. Pain: Complains of pain in abdomen Pain does not radiate. Pain currently is 8 out of 10 on a pain scale. Quality of pain is described as crampy, tender, Pain began 2-3 days ago. Is continuous. Neuro: Level of Consciousness is awake, alert, obeys commands, Oriented to person, place, time, situation, Appropriate for age. Cardiovascular: Capillary refill < 3 seconds Patient's skin is warm and dry. Respiratory: Airway is patent Respiratory effort is even, unlabored, Respiratory pattern is regular, symmetrical. GI: Abdomen is round Reports nausea, vomiting, since Tuesday. 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 - Social history:: Smoking status: Patient denies any tobacco usage or history of. - Family history:: not pertinent. Screenin:43 [facility] ED Fall Risk Assessment (Adult) History of falling in the last 3 months, me1 including since admission No falls in past 3 months (0 pts) Confusion or Disorientation No (0 pts) Intoxicated or Sedated No (0 pts) Impaired Gait Yes (1 pt) Mobility Assist Device Used No (0 pt) Altered Elimination No (0 pt) Score/Fall Risk Level 0 - 2 = Low Risk. Abuse screen: Denies threats or abuse. Nutritional screening: No deficits noted. Tuberculosis screening: No symptoms or risk factors identified. Assessment: 13:43 General: See triage assessment.. me1 15:00 Reassessment: No changes from previously documented assessment. Patient and/or family me1 updated on plan of care and expected duration. Pain level reassessed. Patient states symptoms have not improved. 17:26 Reassessment: No changes from previously documented assessment. Patient and/or family me1 updated on plan of care and expected duration. Pain level reassessed. Patient states symptoms have not improved. 18:34 General: Report called to LUIS Reagan at [phone].. me1 Vital Signs: 13:38 BP 229 / 114; Pulse 105; Resp 18; Temp 97.6(O); Pulse Ox 99% on R/A; Weight 81.65 kg; me1 Height 5 ft. 2 in. ; Pain 8/10; 14:00 BP 229 / 141; Pulse 104; Resp 17; Pulse Ox 98% on R/A; me1 15:00 BP 229 / 136; Pulse 86; Resp 17; Pulse Ox 99% on R/A; me1 15:24 BP 219 / 134; Pulse 93; Resp 17; Pulse Ox 98% on R/A; me1 15:43 BP 217 / 134; Pulse 84; Resp 17; Pulse Ox 98% on R/A; me1 15:57 BP 196 / 125; Pulse 97; Resp 18; Pulse Ox 98% on R/A; me1 16:08 BP 198 / 124; Pulse 90; Resp 18; Pulse Ox 100% on R/A; me1 16:26 BP 189 / 129; Pulse 94; Resp 16; Pulse Ox 100% on R/A; me1 17:19 BP 199 / 136; Pulse 101; Resp 18; Pulse Ox 99% on R/A; me1 17:39 BP 206 / 127; Pulse 106; Resp 18; Pulse Ox 98% on R/A; me1 17:45 BP 196 / 124; Pulse 106; Resp 18; Pulse Ox 98% on R/A; me1 17:54 BP 177 / 132; Pulse 102; Resp 17; Pulse Ox 100% on R/A; me1 18:09 BP 185 / 114; Pulse 101; Resp 18; Pulse Ox 100% on R/A; me1 18:14 BP 196 / 105; Pulse 107; Resp 12; Pulse Ox 100% on R/A; me1 18:22 BP 186 / 103; Pulse 105; Resp 17; Pulse Ox 99% on R/A; me1 18:38 BP 160 / 86; Pulse 109; Resp 17; Pulse Ox 100% on R/A; me1 19:10 BP 115 / 66; Pulse 136; Resp 18; Pulse Ox 99% on R/A; me1 19:25 BP 134 / 79; Pulse 102; Resp 18; Pulse Ox 97% on R/A; me1 20:03 BP 129 / 86; Pulse 105; Resp 18; Pulse Ox 99% on R/A; me1 13:38 Body Mass Index 32.92 (81.65 kg, 157.48 cm) me1 13:38 Pain Scale: Adult [facility] ED Course: 13:34 Patient arrived in ED. rt 13:34 Wily Mendoza MD is Attending Physician. rt 13:37 Karlene Cartagena, LUIS is Primary Nurse. me1 13:40 Triage completed. me1 13:40 Arm band placed on Patient placed in an exam room. me1 13:43 Patient has correct armband on for positive identification. Bed in low position. Call ut1 light in reach. Side rails up X2. Provided Education on: POC. Verbalized understanding.. 13:43 No provider procedures requiring assistance completed. me1 13:52 CT Abd/Pelvis - Without Contrast In Process Unspecified. EDMS 14:11 CBC with Diff Sent. iw 14:11 CMP Sent. iw 14:11 Lipase Sent. iw 14:11 Magnesium Sent. iw 14:12 Troponin High Sensitivity Sent. iw 14:21 Inserted saline lock: 24 gauge in right wrist, using aseptic technique. me1 16:08 Jim Ibarra MD is Hospitalizing Provider. rt 16:39 initiated transfer to [facility]. bd 17:19 pt declined at [facility] and [facility]. bd 17:26 initiated transfer to [facility]. bd 18:23 pt accepted in transfer to [facility] by Dr Szymanski admin approval given by Alexandre Sutton. pt going to [facility] 8 B 821. 20:25 Patient transferred, IV remains in place. me1 Administered Medications: 14:22 Drug: fentaNYL (PF) IVP 100 mcg Route: IVP; Site: right wrist; me1 14:59 Follow up: Response: No adverse reaction; Pain is decreased me1 14:22 Drug: Ondansetron IVP 4 mg Route: IVP; Site: right wrist; me1 14:59 Follow up: Response: No adverse reaction; Nausea is decreased me1 14:48 Drug: Labetalol IV 10 mg Route: IV; Rate: calculated rate; Infused Over: 2 mins; Site: me1 right wrist; 15:24 Follow up: Response: No adverse reaction; No change in condition me1 15:23 Drug: Labetalol IV 10 mg Route: IV; Rate: 10 calculated rate; Infused Over: 2 mins; me1 Site: right wrist; 15:44 Follow up: Response: No adverse reaction; No change in condition me1 15:43 Drug: fentaNYL (PF) IVP 100 mcg Route: IVP; Site: right wrist; me1 15:57 Follow up: Response: No adverse reaction; Pain is decreased me1 15:43 Drug: hydrALAZINE IVP 10 mg Route: IVP; Site: right wrist; me1 16:27 Follow up: Response: No adverse reaction; Blood pressure is unchanged me1 17:18 Drug: niCARdipine IV 5 mg/hr Route: IV; Rate: calculated rate; Site: right wrist; me1 17:40 Follow up: Rate change 7.5 mg/hr me1 17:44 Follow up: Rate change 10 mg/hr me1 18:15 Follow up: Rate change 12.5 mg/hr me1 18:41 Follow up: Response: No adverse reaction; Marked relief of symptoms me1 19:09 Follow up: Rate change 10 mg/hr me1 19:22 Follow up: Rate change 7.5 mg/hr me1 19:09 Drug: fentaNYL (PF) IVP 100 mcg Route: IVP; Site: right wrist; me1 19:25 Follow up: Response: No adverse reaction; Pain is decreased me1 20:22 Follow up: Response: No adverse reaction; Pain is decreased me1 19:22 Drug: NS 0.9% IV 1000 ml Route: IV; Rate: 125 ml/hr; Site: right wrist; me1 Medication: 13:43 VIS not applicable for this client. me1 Outcome: 16:09 Decision to Hospitalize by Provider. rt 16:21 ER care complete, transfer ordered by . rt 20:24 Transferred by ground EMS to [facility], Transfer form me1 completed. 20:24 Condition: stable 20:24 Instructed on the need for transfer. 20:42 Patient left the ED. me1 Signatures: Dispatcher [employer] EDLizbeth Camp Irene, RN RN iw Wily Mendoza MD MD rt Karlene Cartagena RN RN me1
--- NOTE | 2023-05-11 16:09 | EDPHYS ---
Physician Documentation [facility] Name: Babs Younger Age: 52 yrs Sex: Female : 1970 Arrival Date: 05/11/2023 Time: 13:28 Bed 15 Private MD: ED Physician Wily Mendoza HPI: 05/11 14:45 This 52 yrs old Black Female presents to ER via EMS with complaints of Nausea/Vomiting. rt 14:45 Patient with history of Crohn's disease status post resection presents to the ED with rt nausea, vomiting, abdominal pain. 2 days ago, the family noted some blood in the vomit, no blood currently. Denies other acute complaints at this time. Symptoms are moderate severity, aching nature, nonradiating, no other aggravating alleviating factors.. 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 - Social history:: Smoking status: Patient denies any tobacco usage or history of. - Family history:: not pertinent. ROS: 14:45 Constitutional: Negative for fever, chills, and weight loss, Cardiovascular: Negative rt for chest pain, palpitations, and edema, Respiratory: Negative for shortness of breath, cough, wheezing, and pleuritic chest pain, MS/Extremity: Negative for injury and deformity, Skin: Negative for injury, rash, and discoloration, Neuro: Negative for headache, weakness, numbness, tingling, and seizure, Psych: Negative for depression, anxiety, suicide ideation, homicidal ideation, and hallucinations. 14:45 Abdomen/GI: Positive for abdominal pain, nausea and vomiting. Exam: 14:45 Constitutional: This is a well developed, well nourished patient who is awake, alert, rt and in no acute distress. Head/Face: Normocephalic, atraumatic. Chest/axilla: Normal chest wall appearance and motion. Nontender with no deformity. No lesions are appreciated. Cardiovascular: Regular rate and rhythm with a normal S1 and S2. No gallops, murmurs, or rubs. Normal PMI, no JVD. No pulse deficits. Respiratory: Lungs have equal breath sounds bilaterally, clear to auscultation and percussion. No rales, rhonchi or wheezes noted. No increased work of breathing, no retractions or nasal flaring. Skin: Warm, dry with normal turgor. Normal color with no rashes, no lesions, and no evidence of cellulitis. MS/ Extremity: Pulses equal, no cyanosis. Neurovascular intact. Full, normal range of motion. Neuro: Awake and alert, GCS 15, oriented to person, place, time, and situation. Cranial nerves II-XII grossly intact. Motor strength 5/5 in all extremities. Sensory grossly intact. Cerebellar exam normal. Normal gait. Psych: Awake, alert, with orientation to person, place and time. Behavior, mood, and affect are within normal limits. 14:45 Abdomen/GI: Tenderness diffusely on abdomen, mild guarding, no rebound, minimal distention.. 15:01 ECG was reviewed by the Attending Physician. rt Vital Signs: 13:38 BP 229 / 114; Pulse 105; Resp 18; Temp 97.6(O); Pulse Ox 99% on R/A; Weight 81.65 kg; me1 Height 5 ft. 2 in. ; Pain 8/10; 14:00 BP 229 / 141; Pulse 104; Resp 17; Pulse Ox 98% on R/A; me1 15:00 BP 229 / 136; Pulse 86; Resp 17; Pulse Ox 99% on R/A; me1 15:24 BP 219 / 134; Pulse 93; Resp 17; Pulse Ox 98% on R/A; me1 15:43 BP 217 / 134; Pulse 84; Resp 17; Pulse Ox 98% on R/A; me1 15:57 BP 196 / 125; Pulse 97; Resp 18; Pulse Ox 98% on R/A; me1 16:08 BP 198 / 124; Pulse 90; Resp 18; Pulse Ox 100% on R/A; me1 16:26 BP 189 / 129; Pulse 94; Resp 16; Pulse Ox 100% on R/A; me1 17:19 BP 199 / 136; Pulse 101; Resp 18; Pulse Ox 99% on R/A; me1 17:39 BP 206 / 127; Pulse 106; Resp 18; Pulse Ox 98% on R/A; me1 17:45 BP 196 / 124; Pulse 106; Resp 18; Pulse Ox 98% on R/A; me1 17:54 BP 177 / 132; Pulse 102; Resp 17; Pulse Ox 100% on R/A; me1 18:09 BP 185 / 114; Pulse 101; Resp 18; Pulse Ox 100% on R/A; me1 18:14 BP 196 / 105; Pulse 107; Resp 12; Pulse Ox 100% on R/A; me1 18:22 BP 186 / 103; Pulse 105; Resp 17; Pulse Ox 99% on R/A; me1 18:38 BP 160 / 86; Pulse 109; Resp 17; Pulse Ox 100% on R/A; me1 19:10 BP 115 / 66; Pulse 136; Resp 18; Pulse Ox 99% on R/A; me1 19:25 BP 134 / 79; Pulse 102; Resp 18; Pulse Ox 97% on R/A; me1 20:03 BP 129 / 86; Pulse 105; Resp 18; Pulse Ox 99% on R/A; me1 13:38 Body Mass Index 32.92 (81.65 kg, 157.48 cm) nd1 13:38 Pain Scale: Adult nd1 MDM: 13:34 Patient medically screened. rt 16:09 Differential diagnosis: Nonspecific abd pain, Bowel obstruction, hypertensive urgency. rt Data reviewed: vital signs, nurses notes. Consideration of Admission/Observation Patient was admitted/placed on observation. Management of patient was discussed with the following: Hospitalist: Agrees to admit. Independent interpretation of the following test(s) in the Emergency Department CT Scan: My interpretation is No bowel obstruction syndrome interpretation of the CT scan images. Care significantly affected by the following chronic conditions: Chronic Kidney Disease. Counseling: I had a detailed discussion with the patient and/or guardian regarding the historical points, exam findings, and any diagnostic results supporting the discharge/admit diagnosis, lab results, radiology results, the need for further work-up and treatment in the hospital. Response to treatment: the patient's symptoms have mildly improved after treatment. 17:57 ED course: Attempted to transfer within the [facility] system, however, there is no ICU rt bed availability at the [facility] or at [place], will transfer to [facility].. 05/11 13:37 Order name: CBC with Diff; Complete Time: 14:22 rt 05/11 13:37 Order name: CMP; Complete Time: 15:46 rt 05/11 13:37 Order name: Lipase; Complete Time: 15:46 rt 05/11 13:37 Order name: Magnesium; Complete Time: 15:46 rt 05/11 13:37 Order name: Troponin High Sensitivity; Complete Time: 15:46 rt 05/11 16:20 Order name: Acetaminophen rt 05/11 13:37 Order name: CT Abd/Pelvis - Without Contrast; Complete Time: 14:48 rt 05/11 13:37 Order name: EKG; Complete Time: 13:38 rt 05/11 13:37 Order name: EKG - Nurse/Tech; Complete Time: 15:25 rt 05/11 14:23 Order name: Labs - recollect needed: recollect light green top; Complete Time: 14:48 bd EC:01 Rate is 86 beats/min. Rhythm is regular, Normal Sinus Rhythm with No ectopy, LVH with rt repolarization abnormality. Left axis deviation noted. MO interval is normal. QRS interval is normal. QT interval is normal. No Q waves. Administered Medications: 14:22 Drug: fentaNYL (PF) IVP 100 mcg Route: IVP; Site: right wrist; me1 14:59 Follow up: Response: No adverse reaction; Pain is decreased me1 14:22 Drug: Ondansetron IVP 4 mg Route: IVP; Site: right wrist; me1 14:59 Follow up: Response: No adverse reaction; Nausea is decreased me1 14:48 Drug: Labetalol IV 10 mg Route: IV; Rate: calculated rate; Infused Over: 2 mins; Site: me1 right wrist; 15:24 Follow up: Response: No adverse reaction; No change in condition me1 15:23 Drug: Labetalol IV 10 mg Route: IV; Rate: 10 calculated rate; Infused Over: 2 mins; me1 Site: right wrist; 15:44 Follow up: Response: No adverse reaction; No change in condition me1 15:43 Drug: fentaNYL (PF) IVP 100 mcg Route: IVP; Site: right wrist; me1 15:57 Follow up: Response: No adverse reaction; Pain is decreased me1 15:43 Drug: hydrALAZINE IVP 10 mg Route: IVP; Site: right wrist; me1 16:27 Follow up: Response: No adverse reaction; Blood pressure is unchanged me1 17:18 Drug: niCARdipine IV 5 mg/hr Route: IV; Rate: calculated rate; Site: right wrist; me1 17:40 Follow up: Rate change 7.5 mg/hr me1 17:44 Follow up: Rate change 10 mg/hr me1 18:15 Follow up: Rate change 12.5 mg/hr me1 18:41 Follow up: Response: No adverse reaction; Marked relief of symptoms me1 19:09 Follow up: Rate change 10 mg/hr me1 19:22 Follow up: Rate change 7.5 mg/hr me1 19:09 Drug: fentaNYL (PF) IVP 100 mcg Route: IVP; Site: right wrist; me1 19:25 Follow up: Response: No adverse reaction; Pain is decreased me1 20:22 Follow up: Response: No adverse reaction; Pain is decreased me1 19:22 Drug: NS 0.9% IV 1000 ml Route: IV; Rate: 125 ml/hr; Site: right wrist; me1 Disposition Summary: 05/11/23 16:21 Transfer Ordered Reason: Higher level of care rt Condition: Fair(05/11/23 16:21) rt Problem: new(05/11/23 16:21) rt Symptoms: are unchanged(05/11/23 16:21) rt Transfer Location: [facility](05/11/23 17:56) rt Accepting Physician: Dr. Farley(05/11/23 20:42) me1 Diagnosis - Abdominal pain rt - Abnormal LFTs rt - Hypertensive urgency rt Forms: - Medication Reconciliation Form rt - SBAR form rt Critical care time excluding procedures: 17:57 Critical care time: Bedside Care: 30 minutes, Consultation: 5 minutes. Total time: 35 rt minutes Signatures: Dispatcher [employer] EDLizbeth Camp Marcus, DO DO ms3 Wily Mendoza MD MD rt Karlene Cartagena, LUIS RN me1 Corrections: (The following items were deleted from the chart) 16:20 16:09 Observation rt rt 16:20 16:09 Jim Ibarra rt rt 16:20 16:09 Telemetry/MedSurg (observation) rt rt 16:20 16: Stable rt rt 16: 16:09 an ongoing problem rt rt 16: 16: have improved rt rt 16: 16:09 Standard rt rt 16 16: rt rt 16: 16: Hypertensive urgency rt rt 16: 16: Intractable abdominal pain rt rt 17:56 16:21 rt rt 17: 16:21 [facility] rt rt 20: 17:56 Dr. Farley rt me1
[2023-05-11] MEDS ORDERED: Nicardipine/NS 25 MG/250 ML KIT IV ONE ×2 (17:20→20:12)
[2023-05-11] MEDS ORDERED: NA CHLORIDE 0.9% 1,000 ML ONE (19:31)
[2023-05-11 21:37] VITALS: TEMP 97.6
[2023-05-11 22:08] VITALS: BP 129/86; O2SAT 99
--- NOTE | 2023-05-12 13:03 | EKG ---
Test Date: 2023-05-11 Test Time: 14:53:37 Independent Distributor: MEASUREMENT RESULTS: Intervals: Rate: 86 PA: 196 QRSD: 98 QT: 410 QTc: 490 [place]: P: 69 PA: 196 QRS: -19 T: 107 INTERPRETIVE STATEMENTS: Normal sinus rhythm Biatrial enlargement Left ventricular hypertrophy T wave abnormality, consider lateral ischemia Prolonged QT Abnormal ECG Compared to ECG 05/03/2023 12:10:50 Atrial abnormality now present First degree AV block no longer present T-wave abnormality still present Possible ischemia still present Electronically Signed On 05-12-23 13:00:35 CDT by Dario Ackerman
== END 2023-05-11 20:42 | disposition short-term general hospital (02) ==
LOC: ER 13:28
DX: R94.5 Abnormal results of liver function studies (principal); I16.0 Hypertensive urgency; R11.2 Nausea with vomiting, unspecified; Z98.890 Other specified postprocedural states; E11.22 Type 2 diabetes mellitus with diabetic chronic kidney disease; I12.0 Hypertensive chronic kidney disease with stage 5 chronic kidney disease or end stage renal disease; N18.6 End stage renal disease
CPT/HCPCS: 85025; 36415; 83735; 84484; 83690; 80053; 74176; 80143; J0360; J3010 ×3; J2405; J7030; 93005; 96374; 96375; 99285